=== PATIENT | male | born 1955 | race African-American/Black ===

== ENCOUNTER 2017-03-12 13:46 | Emergency (ER) | payer MEDICARE ==
--- NOTE | 2017-03-12 14:38 | ER Document Report ---
ED General - General Stated Complaint: FEVER Time seen by provider: 14:03 Mode of Arrival: Stretcher Information source: Patient TRAVEL OUTSIDE OF THE [place] IN LAST 30 DAYS: No - HPI Notes: Patient is a pleasant 61-year-old male history of Guamy quiroz nonambulatory since 2013 history of renal transplant 2013 coronary bypass surgery and insulin- dependent diabetes presents March department for a fever onset today with a temperature of 100.1 at home. The patient states he has dysuria and frequency with concern for UTI. He describes no back pain or abdominal pain. He states had a very minimal cough but no dyspnea or chest pain. Cough is nonproductive. Patient also reports she is being followed for stage 2/3 decubiti in the sacral region and on the left posterior heel. Patient states the wound dressing changes were done every 3 days, but now are being performed once a week. - Related Data Allergies/Adverse Reactions: No Known Allergies Allergy (Verified 02/28/15 17:57) Past Medical History - General Information source: Patient - Social History Smoking Status: Never Smoker Frequency of alcohol use: None Drug Abuse: None Lives with: Family Family History: Reviewed & Not Pertinent - Past Medical History Cardiac Medical History: Reports: Hx Congestive Heart Failure, Hx Heart Attack - 2006, Hx Hypercholesterolemia, Hx Hypertension Pulmonary Medical History: Reports: Hx Asthma Endocrine Medical History: Reports: Hx Diabetes Mellitus Type 1 Renal/ Medical History: Reports: Hx End Stage Renal Disease GI Medical History: Denies: Hx Crohn's Disease, Hx Diverticulitis, Hx Ulcerative Colitis Past Surgical History: Reports: Hx Cardiac Surgery - double bypass, Hx Coronary Artery Bypass Graft - Quadruple bypass 2007 - Immunizations Immunizations up to date: Yes Hx Diphtheria, Pertussis, Tetanus Vaccination: Yes Review of Systems - Review of Systems Notes: REVIEW OF SYSTEMS: CONSTITUTIONAL : Reports fever EENT: Denies eye, ear, throat, or mouth pain or symptoms. Denies nasal or sinus congestion or discharge. Denies throat, tongue, or mouth swelling or difficulty swallowing. CARDIOVASCULAR: Denies chest pain. Denies palpitations or racing or irregular heart beat. Denies ankle edema. RESPIRATORY: Denies shortness of breath, difficulty breathing, or wheezing. GASTROINTESTINAL: Denies abdominal pain or distention. Denies nausea, vomiting , or diarrhea. Denies blood in vomitus, stools, or per rectum. Denies black, tarry stools. Denies constipation. GENITOURINARY: Denies difficulty urinating, but he does have urinary frequency urgency and burning. MUSCULOSKELETAL: Denies back or neck pain or stiffness. Denies joint pain or swelling. SKIN: Left greater than right heel and gluteal decubiti. HEMATOLOGIC : Denies easy bruising or bleeding. LYMPHATIC: Denies swollen, enlarged glands. NEUROLOGICAL: Denies confusion or altered mental status. Denies passing out or loss of consciousness. Denies dizziness or lightheadedness. Denies headache. Reports chronic inability to ambulate related to Mady quiroz. Denies new problems with gait or speech. Denies sensory loss, numbness, or tingling. Denies seizures. PSYCHIATRIC: Denies anxiety or stress. Denies depression, suicidal ideation, or homicidal ideation. ALL OTHER SYSTEMS REVIEWED AND NEGATIVE. Dictation was performed using [employer] voice recognition software Physical Exam - Vital signs Vitals: Temp Pulse Resp BP Pulse Ox 99.1 F 80 18 164/69 H 97 03/12/17 13:50 03/12/17 13:50 03/12/17 13:50 03/12/17 13:50 03/12/17 13:50 - Notes Notes: PHYSICAL EXAMINATION: GENERAL: Well-appearing, well-nourished and in no acute distress. HEAD: Atraumatic, normocephalic. EYES: Pupils equal round and reactive to light, extraocular movements intact, sclera anicteric, conjunctiva are normal. ENT: Nares patent, oropharynx clear without exudates. Moist mucous membranes. NECK: Normal range of motion, supple without lymphadenopathy LUNGS: Breath sounds clear to auscultation bilaterally and equal. No wheezes rales or rhonchi. HEART: Regular rate and rhythm without murmurs ABDOMEN: Soft, nontender, nondistended abdomen. No guarding, no rebound. Patient has scars which are well-healed and a mass appreciated through the right lower quadrant from his previous renal transplant. He is nontender to that region. Musculoskeletal: Normal range of motion, no pitting or edema. No cyanosis. NEUROLOGICAL: Cranial nerves grossly intact. Normal speech, normal gait. Normal sensory, motor exams PSYCH: Normal mood, normal affect. SKIN: Patient has stage I decubitus right posterior heel and a stage III decubitus 1 x 2 cm on the left posterior heel with minor odor to it. No gross cellulitis noted otherwise. Patient also has a stage III decubitus 2 x 2 centimeters on the posterior sacral prominence. Course - Re-evaluation Re-evalutation: 03/12/17 14:37 Patient had left heel decubitus cleaned and cultured and dressing changes placed upon this. Blood cultures were taken. Patient had previously received Tylenol just prior to arrival. 03/12/17 21:06 Patient was given 1 L normal saline bolus, then was placed on normal saline at 2 50 mL an hour. After blood and urine cultures, patient was given IV Zosyn to cover for urinary tract infection as well as for the heel decubitus ulceration. Vital signs remained stable. Discussion was undertaken with the patient and family and they were in agreement with admission and/or transfer if needed. Discussion was undertaken with the patient's regular practitioner Dr. Girard, and he advised consultation with the nephrology/renal transplant service. Discussion was undertaken with Dr. Haley at [facility] accept the patient in transfer to the nephrology renal transplant service for further evaluation and care. Lactic acid level was normal, but patient's bicarbonate was 13 and creatinine elevated 2.6. There was some concern for possible renal transplant rejection based upon the elevated creatinine and other findings. - Vital Signs Vital signs: Temp Pulse Resp BP Pulse Ox 98.7 F 74 18 177/74 H 100 03/12/17 20:35 03/12/17 18:38 03/12/17 18:38 03/12/17 18:38 03/12/17 18:38 - Laboratory Result Diagrams: 03/12/17 14:44 03/12/17 14:44 Laboratory results interpreted by me: 03/12/17 03/12/17 03/12/17 14:44 14:44 16:27 WBC 13.8 H RBC 3.67 L Hgb 11.0 L Hct 33.4 L RDW 17.3 H Absolute Neutrophils 9.0 H Potassium 5.4 H Chloride 114 H Carbon Dioxide 13 L BUN 104 H Creatinine 2.61 H Est GFR ( Amer) 30 L Est GFR (Non-Af Amer) 25 L Glucose 169 H Direct Bilirubin 0.5 H AST 62 H ALT 80 H Total Protein 6.2 L Albumin 2.8 L Urine Protein 100 H Ur Leukocyte Esterase LARGE H Urine Ascorbic Acid 20 H - Diagnostic Test Radiology reviewed: Reports reviewed - EKG Interpretation by Me EKG shows normal: Sinus rhythm Additional EKG results interpreted by me: 03/12/17 21:12 EKG as interpreted by me showed normal sinus rhythm a rate of 76. There was no gross evidence for acute FL or ischemia identified. There was left ventricular hypertrophy and a first-degree AV block. No gross change as compared to previous EKG reviewed from 11/05/16. Critical Care Note - Critical Care Note Total time excluding time spent on procedures (mins): 42 Discharge - Discharge Clinical Impression: Hyperkalemia, diminished renal excretion, Renal insufficiency Urinary tract infection Qualifiers: Urinary tract infection type: site unspecified Hematuria presence: without hematuria Qualified Code(s): N39.0 - Urinary tract infection, site not specified Fever Qualifiers: Fever type: due to other condition Qualified Code(s): R50.81 - Fever presenting with conditions classified elsewhere Decubitus skin ulcer Qualifiers: Pressure ulcer location: ankle Pressure ulcer stage: stage 3 Laterality: left Qualified Code(s): L89.523 - Pressure ulcer of left ankle, stage 3 Condition: Stable Disposition: [facility]
[2017-03-12 15:10] LABS: ABSOLUTE LYMPHOCYTES (AUTO) 3.3 10^3/uL (0.5-4.7); ABSOLUTE MONOCYTES (AUTO) 1.4 10^3/uL (0.1-1.4); BASOPHILS % (AUTO) 0.2 % (0-2); EOSINOPHILS % (AUTO) 0.2 % (0-6); HEMATOCRIT 33.4 % (37.9-51.0); HGB HCT DIFFERENCE -0.4; LYMPHOCYTES % (AUTO) 24.2 % (13-45); MEAN CORPUSCULAR HEMOGLOBIN 30.1 pg (27.0-33.4); MEAN CORPUSCULAR VOLUME 91 fl (80-97); MONOCYTES % (AUTO) 10.2 % (3-13); RED BLOOD COUNT 3.67 10^6/uL (4.35-5.55); RED CELL DISTRIBUTION WIDTH 17.3 % (11.5-14.0); SEGMENTED NEUTROPHILS % (AUTO) 65.2 % (42-78); WHITE BLOOD COUNT 13.8 10^3/uL (4.0-10.5)
[2017-03-12 15:24] LABS: ALANINE AMINOTRANSFERASE 80 U/L (21-72); ALBUMIN 2.8 g/dL (3.5-5.0); ALKALINE PHOSPHATASE 125 U/L (38-126); ANION GAP 15 (5-19); ASPARTATE AMINO TRANSFERASE 62 U/L (17-59); BILIRUBIN,DIRECT 0.5 mg/dL (0.0-0.4); BILIRUBIN,TOTAL 0.7 mg/dL (0.2-1.3); BLOOD UREA NITROGEN 104 mg/dL (7-20); CALCIUM 8.6 mg/dL (8.4-10.2); CARBON DIOXIDE 13 mmol/L (22-30); CHLORIDE 114 mmol/L (98-107); CREATININE RESULT 2.61 mg/dL (0.52-1.25); GLUCOSE 169 mg/dL (75-110); POTASSIUM 5.4 mmol/L (3.6-5.0); SODIUM 142.2 mmol/L (137-145); TOTAL PROTEIN 6.2 g/dL (6.3-8.2)
[2017-03-12 17:02] LABS: APPEARANCE,URINE CLOUDY; BILIRUBIN,URINE NEGATIVE (NEGATIVE); GLUCOSE, URINE NEGATIVE (NEGATIVE); KETONES,URINE NEGATIVE (NEGATIVE); LEUKOCYTE ESTERASE,URINE LARGE (NEGATIVE); NITRITE,URINE NEGATIVE (NEGATIVE); PROTEIN,URINE 100 mg/dL (NEGATIVE); URINE SPECIFIC GRAVITY 1.011; UROBILINOGEN,URINE NEGATIVE mg/dL (<2.0)
[2017-03-12] MEDS ORDERED: NORMAL SALINE 1000 ML 1,000 ML IV ONE ×2 (17:20→19:57)
[2017-03-12] MEDS ORDERED: PIPERACILLIN/TAZOBACTAM 3.375 GM VIAL IV ONE (18:22)
[2017-03-13 00:50] VITALS: BP 150/78
[2017-03-13] MEDS ORDERED: ACETAMINOPHEN 325 MG TABLET PO ONE (00:50)
--- NOTE | 2017-03-13 09:40 | EKG REPORT ---
SEVERITY:- ABNORMAL ECG - SINUS RHYTHM FIRST DEGREE AV BLOCK PROBABLE LEFT ATRIAL ABNORMALITY LVH WITH SECONDARY REPOLARIZATION ABNORMALITY INFERIOR INFARCT, OLD CONSIDER ANTERIOR INFARCT : Confirmed by: Zoe Lazo 13-Mar-2017 09:39:16
== END 2017-03-13 02:10 | disposition short-term general hospital (02) ==
LOC: ER 13:46
DX: N28.9 Disorder of kidney and ureter, unspecified (principal); E87.5 Hyperkalemia; N39.0 Urinary tract infection, site not specified; R50.81 Fever presenting with conditions classified elsewhere; L89.523 Pressure ulcer of left ankle, stage 3; R50.9 Fever, unspecified; R05 Cough
CPT/HCPCS: 93005; 99291; 96365; 36415; 87040; 87086; 87070; 87205; 85025; 87075; 87077; 87088; 80053; 81001; 87186; 83605; 71010; 93010; A9270; J7030; J2543

== ENCOUNTER 2017-03-19 07:16 | Inpatient (IN) | payer MEDICARE ==
[2017-03-19] MEDS ORDERED: NITROGLYCERIN/D5W 50 MG/250 ML RTUINJ IV ONE (07:24)
[2017-03-19] MEDS ORDERED: BUMETANIDE INJ/PF 1 MG/4 ML SDV IV PRN (07:39)
[2017-03-19] MEDS ORDERED: NITROGLYCERIN 2% OINTMENT 1 GM PACKET TP ONE (07:40)
[2017-03-19 08:37] LABS: ABSOLUTE EOSINOPHILS # (AUTO) 0.1 10^3/uL (0.0-0.6); ABSOLUTE LYMPHOCYTES (AUTO) 3.1 10^3/uL (0.5-4.7); ABSOLUTE MONOCYTES (AUTO) 1.2 10^3/uL (0.1-1.4); ABSOLUTE NEUT (AUTO) 4.2 10^3/uL (1.7-8.2); BASOPHILS % (AUTO) 0.5 % (0-2); EOSINOPHILS % (AUTO) 0.8 % (0-6); HEMATOCRIT 31.9 % (37.9-51.0); HEMOGLOBIN 10.4 g/dL (13.5-17.0); HGB HCT DIFFERENCE -0.7; MEAN CORPUSCULAR HEMOGLOBIN 29.8 pg (27.0-33.4); MEAN CORPUSCULAR HGB CONC 32.5 g/dL (32.0-36.0); MEAN CORPUSCULAR VOLUME 92 fl (80-97); MONOCYTES % (AUTO) 14.2 % (3-13); RED BLOOD COUNT 3.47 10^6/uL (4.35-5.55); SEGMENTED NEUTROPHILS % (AUTO) 48.5 % (42-78); VENOUS BLOOD BASE EXCESS -4.6 mmol/L; VENOUS BLOOD PCO2 46.1 mmHg (35-63); VENOUS BLOOD PH 7.3 (7.30-7.42); WHITE BLOOD COUNT 8.6 10^3/uL (4.0-10.5)
[2017-03-19 08:46] LABS: PROTHROMBIN TIME 14.2 SEC (11.4-15.4)
[2017-03-19 09:12] LABS: ALANINE AMINOTRANSFERASE 62 U/L (21-72); ALBUMIN 2.7 g/dL (3.5-5.0); ALKALINE PHOSPHATASE 102 U/L (38-126); ANION GAP 16 (5-19); ASPARTATE AMINO TRANSFERASE 46 U/L (17-59); BILIRUBIN,DIRECT 0.4 mg/dL (0.0-0.4); BILIRUBIN,TOTAL 0.4 mg/dL (0.2-1.3); BLOOD UREA NITROGEN 81 mg/dL (7-20); CALCIUM 8.9 mg/dL (8.4-10.2); CARBON DIOXIDE 22 mmol/L (22-30); CHLORIDE 109 mmol/L (98-107); CREATINE KINASE 32 U/L (55-170); CREATININE RESULT 2.96 mg/dL (0.52-1.25); GLUCOSE 87 mg/dL (75-110); MAGNESIUM 1.9 mg/dL (1.6-2.3); POTASSIUM 4.4 mmol/L (3.6-5.0); SODIUM 146.9 mmol/L (137-145)
[2017-03-19 09:22] LABS: CREATINE KINASE MB 4.83 ng/mL (<4.55)
[2017-03-19 09:29] LABS: TROPONIN I 0.091 ng/mL
[2017-03-19] MEDS ORDERED: METOPROLOL TARTRATE 25 MG TABLET PO ONE (10:17)
[2017-03-19] MEDS ORDERED: HYDRALAZINE HCL 25 MG TABLET PO ONE (10:18)
[2017-03-19] MEDS ORDERED: AMINOPHYLLINE INJ/PF 250 MG/10 ML SDV IV ONE (10:38)
[2017-03-19] MEDS ORDERED: REGADENOSON INJ 0.4 MG/5 ML DISP.SYRIN IV ONE (10:38)
[2017-03-19 10:41] LABS: APPEARANCE,URINE SLIGHTLY-CLOUDY; BILIRUBIN,URINE NEGATIVE (NEGATIVE); GLUCOSE, URINE NEGATIVE (NEGATIVE); KETONES,URINE NEGATIVE (NEGATIVE); LEUKOCYTE ESTERASE,URINE LARGE (NEGATIVE); NITRITE,URINE NEGATIVE (NEGATIVE); PROTEIN,URINE 30 mg/dL (NEGATIVE); URINE SPECIFIC GRAVITY 1.009; UROBILINOGEN,URINE NEGATIVE mg/dL (<2.0)
[2017-03-19] MEDS ORDERED: ACETAMINOPHEN 325 MG TABLET PO PRN (11:22)
[2017-03-19] MEDS ORDERED: DEXTROSE 40% GEL 15 GM TUBE PO PRN ×2 (11:25)
[2017-03-19] MEDS ORDERED: DEXTROSE 50%-WATER 25 GM/50 ML DISP.SYRIN IV PRN ×2 (11:25)
[2017-03-19] MEDS ORDERED: GLUCAGON,HUMAN RECOMB 1 MG INJ IM PRN (11:25)
[2017-03-19] MEDS ORDERED: FUROSEMIDE INJ/PF 20 MG/2 ML SDV IV SCH (12:00)
[2017-03-19] MEDS ORDERED: CEFTRIAXONE 1 GM/D5W RTU 1 GM/50 ML RTUPB IV SCH (12:00)
[2017-03-19] MEDS ORDERED: ENOXAPARIN SODIUM INJ 30 MG/0.3 ML DISP.SYRIN SUBCUT ONE (12:15)
[2017-03-19] MEDS: IPRATROPIUM/ALBUTEROL 0.5-2.5 MG/3 ML AMPUL NEB SCH ×2 (13:33→20:37)
--- NOTE | 2017-03-19 13:54 | ER Document Report ---
ED General - General Chief Complaint: Breathing Difficulty Stated Complaint: DIFFICULTY BREATHING TRAVEL OUTSIDE OF THE [place] IN LAST 30 DAYS: No - HPI Patient complains to provider of: difficulty in breathing Notes: Patient coming in for difficulty breathing. Upon EMS arrival patient was found to be hypoxic to Elevated blood pressure. Patient has a history of CHF patient was given Nitropaste transport on C Pap. Upon arrival patient still stated that he was having trouble breathing. Mr. Jolley that showed patient blood pressure was a systolic greater than 2:30. Patient denying chest pain abdominal pain nausea vomiting fevers chills. Patient was recently discharged from [facility] after a UTI was found in patient was bacteremic. Patient is a kidney transplant patient states compliant with medications. Woke up all of a sudden with shortness of breath according to the patient. Nitro drip was ordered patient was also ordered to be placed on BiPAP. - Related Data Allergies/Adverse Reactions: No Known Allergies Allergy (Verified 02/28/15 17:57) Home Medications: Current Home Medications Ascorbic Acid [Vitamin C] 250 mg PO QAM 03/19/17 [History] Atorvastatin Calcium [Lipitor 10 mg Tablet] 10 mg PO QHS 03/19/17 [History] B Complex & C No.20/Folic Acid [Nephrocaps Softgel] 1 cap PO WSUPPER 03/19/17 [ History] Bumetanide [Bumex 0.5 mg Tablet] 0.5 mg PO QAM 03/19/17 [History] Citric Acid/Sodium Citrate [Shohl's Modified Solution] 30 ml PO TID 03/19/17 [ History] Clonazepam [Klonopin] 0.25 mg PO BID 03/19/17 [History] Ergocalciferol (Vitamin D2) [Drisdol 50,000 unit (1.25MG) Capsule] 50,000 units PO WE@1000 03/19/17 [History] Ferrous Sulfate [Feosol 325 mg Tablet] 325 mg PO BIDACBS 03/19/17 [History] Hydralazine HCl [Apresoline 25 mg Tablet] 25 mg PO TID 03/19/17 [History] Insulin Glargine,Hum.rec.anlog [Lantus Insulin 100 Unit/1 ml 10 ml] 3 units SUBCUT QHS 03/19/17 [History] Insulin Lispro [Humalog Insulin (Lispro) 100 unit/mL] 4 units SUBCUT MEALS 03/19 [History] Isosorbide Mononitrate [Isosorbide Mononitrate ER] 30 mg PO QAM 03/19/17 [ History] Metoprolol Tartrate [Lopressor 50 mg Tablet] 50 mg PO Q12 03/19/17 [History] Mupirocin 1 applic TOP BID 03/19/17 [History] Nitroglycerin [Nitrostat] 0.4 mg SL Q5MP PRN 03/19/17 [History] Omeprazole 20 mg PO DAILY 03/19/17 [History] Prednisone [Deltasone 5 mg Tablet] 12.5 mg PO [id number] 03/19/17 [History] Tamsulosin HCl [Flomax] 0.4 mg PO DAILY 03/19/17 [History] Past Medical History - Social History Smoking Status: Never Smoker Chew tobacco use (# tins/day): No Frequency of alcohol use: None Drug Abuse: None Family History: Reviewed & Not Pertinent - Past Medical History Cardiac Medical History: Reports: Hx Congestive Heart Failure, Hx Heart Attack - 2006, Hx Hypercholesterolemia, Hx Hypertension Pulmonary Medical History: Reports: Hx Asthma Endocrine Medical History: Reports: Hx Diabetes Mellitus Type 1 Renal/ Medical History: Reports: Hx End Stage Renal Disease GI Medical History: Denies: Hx Crohn's Disease, Hx Diverticulitis, Hx Ulcerative Colitis Past Surgical History: Reports: Hx Cardiac Surgery - double bypass, Hx Coronary Artery Bypass Graft - Quadruple bypass 2007, Hx Kidney (Renal Surgery) - kidney transplant, rejection - Immunizations Immunizations up to date: Yes Hx Diphtheria, Pertussis, Tetanus Vaccination: Yes Review of Systems - Review of Systems Constitutional: No symptoms reported EENT: No symptoms reported Cardiovascular: No symptoms reported Respiratory: Short of breath Gastrointestinal: No symptoms reported Genitourinary: No symptoms reported Male Genitourinary: No symptoms reported Musculoskeletal: No symptoms reported Skin: No symptoms reported Hematologic/Lymphatic: No symptoms reported Neurological/Psychological: No symptoms reported -: Yes All other systems reviewed and negative Physical Exam - Vital signs Vitals: Resp Pulse Ox 35 H 100 03/19/17 07:34 03/19/17 07:34 Interpretation: Hypertensive, Tachycardic, Tachypneic - General General appearance: Alert, Other - Respiratory stress In distress: Moderate - HEENT Head: Normocephalic, Atraumatic Eyes: Normal Pupils: PERRL - Respiratory Respiratory status: Respiratory distress - Moderate, Tachypnea Chest status: Accessory muscle use Breath sounds: Rales - Coarse throughout Chest palpation: Normal Notes: Right chest double lumen catheter no signs of infection - Cardiovascular Rhythm: Regular Heart sounds: Normal auscultation Murmur: No - Abdominal Inspection: Normal Distension: No distension Bowel sounds: Normal Tenderness: Nontender Organomegaly: No organomegaly - Back Back: Normal, Nontender - Extremities General upper extremity: Normal inspection, Nontender, Normal color, Normal ROM , Normal temperature General lower extremity: Normal inspection, Nontender, Normal color, Normal ROM , Normal temperature, Normal weight bearing, Other - Left heel ulcer covered. No: Mariama's sign - Neurological Neuro grossly intact: Yes Cognition: Normal Orientation: AAOx4 Lincoln Coma Scale Eye Opening: Spontaneous Dominic Coma Scale Verbal: Oriented Lincoln Coma Scale Motor: Obeys Commands Dominic Coma Scale Total: 15 Speech: Normal Motor strength normal: LUE, RUE, LLE, RLE Sensory: Normal - Psychological Associated symptoms: Normal affect, Normal mood - Skin Skin Temperature: Warm Skin Moisture: Dry Skin Color: Normal Course - Re-evaluation Re-evalutation: 03/19/17 13:51 Patient was transitioned to BiPAP. An EKG was performed showing no acute cardiac etiology no signs of STEMI noted T-wave depressions. I personally administered 1 g of nitroglycerin IV to the patient. After administration approximately 2 minutes patient's work of breathing have improved greatly. Blood pressure has improved greatly. Patient stated verbally that he was feeling much better. Lab work shows diffuse pulmonary edema more likely patient had flash pulmonary edema. Patient's BUN/creatinine look to be chronic. Patient was unable to provide us a urine sample while here in the ER. Initially did discuss case with PCP about admission who requested nephrology consult in I did speak with Dr. Hanson who agrees that the patient more likely just needs diuresis and that she will be happy to participate in the patient's care while he is here in the hospital. Dr. Girard agrees to omit the patient to IMCU. Patient otherwise remained stable - Vital Signs Vital signs: Temp Pulse Resp BP Pulse Ox 68 23 H 185/82 H 99 03/19/17 13:33 03/19/17 13:33 03/19/17 12:31 03/19/17 13:33 - Laboratory Result Diagrams: 03/19/17 08:10 03/19/17 08:10 Laboratory results interpreted by me: 03/19/17 03/19/17 03/19/17 08:10 08:10 08:10 RBC 3.47 L Hgb 10.4 L Hct 31.9 L RDW 17.0 H Monocytes % 14.2 H Sodium 146.9 H Chloride 109 H BUN 81 H Creatinine 2.96 H Est GFR ( Amer) 26 L Est GFR (Non-Af Amer) 22 L Creatine Kinase 32 L CK-MB (CK-2) 4.83 H NT-Pro-B Natriuret Pep 032301 H Total Protein 6.0 L Albumin 2.7 L Urine Protein Ur Leukocyte Esterase 03/19/17 10:15 RBC Hgb Hct RDW Monocytes % Sodium Chloride BUN Creatinine Est GFR ( Amer) Est GFR (Non-Af Amer) Creatine Kinase CK-MB (CK-2) NT-Pro-B Natriuret Pep Total Protein Albumin Urine Protein 30 H Ur Leukocyte Esterase LARGE H Critical Care Note - Critical Care Note Total time excluding time spent on procedures (mins): 45 Comments: Time spent at bedside patient with respiratory distress managing BiPAP managing patient's nitro drip Discharge - Discharge Clinical Impression: Chronic kidney disease, stage IV (severe), Accelerated hypertension, History of kidney transplant Acute exacerbation of CHF (congestive heart failure) Qualifiers: Congestive heart failure type: unspecified congestive heart failure type Qualified Code(s): I50.9 - Heart failure, unspecified Condition: Good Disposition: ADMITTED INPATIENT Admitting Provider: [facility] Unit Admitted: [facility]
[2017-03-19] MEDS ORDERED: CITRIC ACID PO SCH (14:00)
[2017-03-19] MEDS ORDERED: SODIUM CITRATE PO SCH (14:00)
[2017-03-19] MEDS: CITRIC ACID/SODIUM CITRATE ORAL SOLN 15 ML UDCUP PO SCH ×2 (14:31→18:46)
[2017-03-19] MEDS: HYDRALAZINE HCL 25 MG TABLET PO SCH ×2 (14:31→19:07)
[2017-03-19] MEDS: INSULIN LISPRO 100 UNIT/ML 3 ML VIAL SUBCUT SCH ×2 (14:51→18:28)
[2017-03-19] MEDS ORDERED: (PENDING PHARMACY ID) (Clonazepam [Klonopin] 0.25 MG) PO SCH (18:00)
[2017-03-19] MEDS: DOCUSATE SODIUM 100 MG CAPSULE PO SCH (18:25)
[2017-03-19] MEDS: FOLIC ACID/VITAMIN B COMP W-C CAPSULE PO SCH (18:25)
[2017-03-19] MEDS: FERROUS SULFATE 325 MG TABLET PO SCH (18:26)
[2017-03-19] MEDS: MUPIROCIN 2% OINTMENT 22 GM TOP SCH (18:46)
[2017-03-19] MEDS ORDERED: METOPROLOL TARTRATE 50 MG TABLET ONE (19:10)
--- NOTE | 2017-03-19 19:37 | HISTORY AND PHYSICAL E ---
History and Physical NAME: KATHRYN HURLEY : 1955 AGE: 61Y ADMITTED: 03/19/2017 ROOM: 334 CHIEF COMPLAINT: Respiratory distress. SUBJECTIVE: This is a 61-year-old male with a significant history of renal transplant on chronic kidney disease, history of coronary artery disease, status post bypass, history of congestive heart failure with diastolic dysfunction, history of hyperlipidemia, stroke, muscle weakness, Guillain-Angela syndrome and multiple other etiologies. Patient was recently admitted to [facility] for a urinary tract infection and bacteremia, and the patient was given IV antibiotics. The patient was started on Bactrim DS on discharge. The patient was just discharged yesterday from [facility]. The patient noticed that he had more difficulty in breathing overnight. The patient came in with blood pressure systolic about 200. The patient was in flash pulmonary edema with respiratory distress. The patient was put on a nitro drip in the ER and the patient is on BiPAP, and the patient is currently responding much better. When I saw the patient in the emergency department the patient was currently on nasal cannula, alert, awake, oriented and denied any chest pain and denied any shortness of the breath. According to the patient, at [facility] they did workup, including the also saw the patient. The patient was put on TPN, the patient was put on IJ PowerLine, and the patient was given IV antibiotics through that too. The patient currently denies any other symptoms except some mild cough. PAST MEDICAL HISTORY: 1. History of recent bacteremia due to the Proteus urinary tract infection and urinary retention. 2. History of the chronic kidney disease, stage V. 3. History of the severe muscle deconditioning. 4. History of the hypertension. 5. History of the C. diff colitis in the past. 6. Type 2 diabetes mellitus. 7. History of the iron-deficiency anemia. 8. History of the Guillain-Angela syndrome. 9. History of myocardial infarction in 2007. 10. History of coronary artery disease, status post coronary artery bypass graft in 2007 with the 4 vessels. 11. History of the sleep apnea, currently no treatment. 12. History of the cytomegalovirus infection. 13. History of the leukocytosis. PAST SURGICAL HISTORY: 1. History of the coronary artery bypass graft in 2007. 2. History of left upper quadrant in 2010. 3. History of the renal transplant in 2017. CURRENT MEDICATIONS: 1. 2% ointment. 2. Bactrim 800 mg twice a day. 3. Patient is taking vitamin D. 4. Hydralazine 25 mg 3 times a day. 5. Sodium citrate daily. 6. Vitamin C daily. 7. Atorvastatin 10 mg daily. 8. B Complex daily. 9. Bumex 0.5 mg. 10. Clonazepam daily. 11. Iron tablet daily. 12. Insulin 3 units at nighttime and 4 units before each meal. 13. Isosorbide 30 mg daily. 14. Metoprolol 50 mg twice daily. 15. Nitroglycerin p.r.n. 16. Omeprazole 20 mg p.o. daily. 17. Prednisone 5 mg daily. 18. Tacrolimus 1 capsule daily. SOCIAL HISTORY: No smoking. No alcohol. No intravenous drug abuse. REVIEW OF SYSTEMS: As above. All other pertinents are negative. PHYSICAL EXAMINATION: VITAL SIGNS: Blood pressure on admission was 186/95, heart rate was 69, respirations were 26, O2 sat was 98% on room air. GENERAL: Alert, awake, oriented, no acute distress. HEAD AND NECK: Normocephalic. PERRLA. LUNGS: No wheezing, no rales. Decreased breath sounds bilaterally. HEART: S1 and S2 is present. ABDOMEN: Soft. Bowel sounds present. EXTREMITIES: No edema. NEUROLOGIC: The patient moves all 4 extremities. Alert, awake, oriented x3. No focal neurological deficits. DIAGNOSTICS: The patient's chest x-ray shows moderate central pulmonary edema with a small left basilar opacity. Differential diagnoses include a pulmonary edema and the pneumonia. The patient's EKG is sinus rhythm. On the patient's other labs, sodium is 146, potassium is 4.4, BUN is 81, creatinine is 2.96. The patient's NT-BNP was 10,000 range. Troponin was 0.091. CK MB is 4.83. Albumin is 2.7. Hematology: WBC is 8.6, hemoglobin is 10.4, platelets are 209. ASSESSMENT: 1. Acute flash pulmonary edema. 2. Hypertensive urgency. 3. Acute diastolic congestive heart failure. 4. Acute renal failure on chronic kidney disease. 5. Recent history of the bacteremia due to the Proteus urinary tract infection. 6. Coronary artery disease, status post bypass graft. 7. History of cerebrovascular accident. 8. Guillain-Angela syndrome. 9. Leukocytosis, currently monitored, reactive versus neoplasm. 10. Diabetes mellitus. 11. Hyperlipidemia. 12. Iron-deficiency anemia. PLAN: At this point, admit the patient in the IMCU. Currently the patient is off the BiPAP and doing very well. We will get the ABG, repeat the chest x-ray, continue the IV antibiotics, and continue to monitor the patient at this point. We will consult Nephrology and Cardiology for further evaluation with the ongoing chronic problems. I discussed with the patient and the family in the ER room very extensively. The patient currently is a FULL CODE. I hope the patient continues to be improved. More than 60 minutes were spent examining the patient and reviewing the records. DICTATING PHYSICIAN: KEEGAN MONTENEGRO M.D. [id number] PHY#: [id number] ID: [id number] JOB#: [id number] ACCT: [id number] cc:KEEGAN MONTENEGRO M.D. >
--- NOTE | 2017-03-19 19:39 | XCELERA REPORT ---
[address] [address] Transthoracic Echocardiogram Report Name: KATHRYN HURLEY Age: 61 yrs Gender: Male : 1955 Patient Status: Inpatient Patient Location: \S\[facility]\S\A Study Date: 03/19/2017 02:25 PM Height: 67 in Weight: 169 lb BSA: 1.9 m2 Procedure: A complete two-dimensional transthoracic echocardiogram was performed (2D, M-mode, spectral and color flow Doppler). The study was technically difficult with many images being suboptimal in quality. Reason For Study: CHF Ordering Physician: ZOE GROVE Performed By: Krystina Walker Interpretation Summary The study was technically difficult with many images being suboptimal in quality. Left ventricular systolic function is low normal. Doppler measurements suggest pseudonormalized left ventricular relaxation, which is associated with grade II/IV or mild to moderate diastolic dysfunction There is mild concentric left ventricular hypertrophy. The left ventricle is grossly normal size. Not all wall segments were well visualized. Wall motion cannot be accurately commented on, but no definite regional wall motion abnormalities noted. The right ventricular systolic function is normal. The left atrium is moderately dilated. The right atrium is mildly dilated. There is no mitral valve stenosis. There is a mild to moderate amount of mitral regurgitation There is no aortic valve stenosis No aortic regurgitation is present. There is a mild amount of tricuspid regurgitation There is moderate pulmonary hypertension by echo Right ventricular systolic pressure is estimated to be elevated at 50- 60mmHg. The aortic root is not well visualized but is probably normal size. The inferior vena cava appeared normal and decreased < 50% with respiration (RAP 10-15 mmHg) There is no pericardial effusion. MMode/2D Measurements \T\ Calculations RVDd: 3.1 cm LVIDd: 4.3 cm FS: 30.1 % Ao root diam: 2.9 cm IVSd: 1.1 cm LVIDs: 3.0 cm EDV(Teich): 81.4 ml LVPWd: 1.2 cm ESV(Teich): 34.4 ml Ao root area: 6.5 cm2 EF(Teich): 57.7 % LA dimension: 4.7 cm Doppler Measurements \T\ Calculations MV E max luis eduardo: MV P1/2t max luis eduardo: Ao V2 max: LV V1 max P.6 cm/sec 142.2 cm/sec 149.9 cm/sec 2.4 mmHg MV A max luis eduardo: MV P1/2t: 69.6 msec Ao max PG: LV V1 max: 152.0 cm/sec 9.0 mmHg 78.0 cm/sec MV E/A: 0.94 MVA(P1/2t): 3.2 cm2 MV dec slope: 598.4 cm/sec2 PA V2 max: TR max luis eduardo: 103.7 cm/sec 329.8 cm/sec PA max P.3 mmHgTR max P.5 mmHg Left Ventricle The left ventricle is grossly normal size. There is mild concentric left ventricular hypertrophy. Left ventricular systolic function is low normal. Doppler measurements suggest pseudonormalized left ventricular relaxation, which is associated with grade II/IV or mild to moderate diastolic dysfunction. Not all wall segments were well visualized. Wall motion cannot be accurately commented on, but no definite regional wall motion abnormalities noted. The left ventricular apex is not well visualized. Right Ventricle The right ventricle is grossly normal size. There is normal right ventricular wall thickness. The right ventricular systolic function is normal. Atria The right atrium is mildly dilated. The left atrium is moderately dilated. Interarterial septum not well visualized and not well dopplered. Cannot comment on ASD/PFO presence. Mitral Valve There is mild mitral leaflet calcification. There is mild to moderate mitral annular calcification. There is no mitral valve stenosis. There is a mild to moderate amount of mitral regurgitation. Aortic Valve The aortic valve is mildly calcified. There is no aortic valve stenosis. No aortic regurgitation is present. Tricuspid Valve The tricuspid valve is not well visualized secondary to technical limitations. There is no tricuspid stenosis. There is a mild amount of tricuspid regurgitation. There is moderate pulmonary hypertension by echo. Right ventricular systolic pressure is estimated to be elevated at 50- 60mmHg. Pulmonic Valve The pulmonic valve is not well visualized. Great Vessels The aortic root is not well visualized but is probably normal size. The inferior vena cava appeared normal and decreased < 50% with respiration (RAP 10-15 mmHg). Effusions There is no pericardial effusion. : ZOE GROVE > Zoe Grove
--- NOTE | 2017-03-19 20:11 | PDOC CONSULTATION ---
Consultation Consult Date: 03/19/17 Attending physician:: KEEGAN MONTENEGRO Consult reason:: I was asked by Dr. Montenegro to see the patient for his chronic kidney disease in a patient with previous kidney transplant. 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 Patient was just recently at [facility] from March 13 until March 17 due to UTI with bacteremia secondary to Proteus in the urine and Enterobacter in the blood. Patient was discharged with home health arrangement for IV ceftriaxone daily for 14 days followed by 1 week of Bactrim after that. While the patient was there the patient said he was given a lot of IV fluids and his Bumex was only resumed on day 3 of hospitalization. He said he developed a cough while he was still in the hospital at [facility] about 2 days ago. When he came home the cough continued. Last night his cough gotten worse as well as the shortness of breath. He said he wears CPap during sleep but even then continues to be short of breath. He otherwise denies any chest pain, fever, nausea, vomiting, nor diarrhea. He mentions that his urine output seems diminished. He was diagnosed with possible urinary retention at [facility] and he was taught to do self-catheterization twice a day. He has not really started yet. This morning when he presented he also had elevated blood pressure with systolic blood pressure around 230s. Blood pressure is still elevated at the moment. He was started on Nitrol drip and his blood pressure medications is currently being given. He is also being started on low dose Lasix intravenously. His chest x-ray showed pulmonary edema. He had an echocardiogram today which showed an ejection fraction of 50%, final report still pending. Today's kidney function includes a BUN of 81 creatinine of 2.96 with estimated GFR of 26. Last week in March 12 he had a BUN of 104 and creatinine of 2.01. On February 23, he had a BUN of 110 and creatinine of 1.78. Further review of records indicated that this usual creatinine is around 2 until February of this year. While at [facility] last week he had a kidney ultrasound which showed minimally increasing mild hydronephrosis. He also had a KUB which was negative for recurrent bladder stone. There was a report of a PVR by ultrasound of 17 but on the floor likely due to a bladder scan of all PVR of 70-100 mL. Patient was then taught self-catheterization as stated above. Records from [facility] also indicated that he had a last kidney biopsy in February 2016 which showed 6070% fibrosis. He had a previous CMV, BK and EBV testing which were all negative. Past Medical History Cardiac Medical History: Reports: CHF-Diastolic, Coronary Artery Disease, Hyperlipidemia, Hypertension-primary, Myocardial Infarction - 2006 Pulmonary Medical History: Reports: Asthma, Sleep Apnea - On C Pap Neurological Medical History: Reports: Ischemic CVA, Other - History of Guillain -Ventura syndrome in 2013 with paraplegia Endocrine Medical History: Reports: Diabetes Mellitus Type 2 Complications of Diabetes: Reports: Nephropathy Renal/ Medical History: Reports: Chronic Kidney Disease Stage IV, End Stage Renal Disease - Secondary to diabetes and hypertension. Patient did peritoneal dialysis, Proteinuria, Renal Transplant - donor kidney transplant on August 2013, Other - Episode of acute kidney injury in the past requiring hemodialysis last year. History of acute rejection in the past Infectious Medical History: Reports: Clostridium Difficile, Other - History of CMV viremia, history of Foster myelitis Hematology Medical History: Reports Anemia of Chronic Kidney Disease, Reports Iron Deficiency Anemia Past Surgical History Past Surgical History: Reports: Coronary Artery Bypass Graft - Quadruple bypass 2007, Renal Transplant - August 2013, Other - History peritoneal dialysis catheter placement and removal Social History Information Source: Patient Lives with: Spouse/Significant other Smoking Status: Never Smoker Frequency of Alcohol Use: None Hx Recreational Drug Use: No Drugs: None Hx Prescription Drug Abuse: No - Advance Directive Resuscitation Status: Full Code Family History Family History: Reviewed & Not Pertinent Parental Family History Reviewed: Yes Children Family History Reviewed: Yes Sibling(s) Family History Reviewed.: Yes Medication/Allergy Home Medications: Ascorbic Acid [Vitamin C] 250 mg PO QAM 03/19/17 Atorvastatin Calcium [Lipitor 10 mg Tablet] 10 mg PO QHS 03/19/17 B Complex & C No.20/Folic Acid [Nephrocaps Softgel] 1 cap PO WSUPPER 03/19/17 Bumetanide [Bumex 0.5 mg Tablet] 0.5 mg PO QAM 03/19/17 Citric Acid/Sodium Citrate [Shohl's Modified Solution] 30 ml PO TID 03/19/17 Clonazepam [Klonopin] 0.25 mg PO BID 03/19/17 Ergocalciferol (Vitamin D2) [Drisdol 50,000 unit (1.25MG) Capsule] 50,000 units PO WE@1000 03/19/17 Ferrous Sulfate [Feosol 325 mg Tablet] 325 mg PO BIDACBS 03/19/17 Hydralazine HCl [Apresoline 25 mg Tablet] 25 mg PO TID 03/19/17 Insulin Glargine,Hum.rec.anlog [Lantus Insulin 100 Unit/1 ml 10 ml] 3 units SUBCUT QHS 03/19/17 Insulin Lispro [Humalog Insulin (Lispro) 100 unit/mL] 4 units SUBCUT MEALS 03/19 Isosorbide Mononitrate [Isosorbide Mononitrate ER] 30 mg PO QAM 03/19/17 Metoprolol Tartrate [Lopressor 50 mg Tablet] 50 mg PO Q12 03/19/17 Mupirocin 1 applic TOP BID 03/19/17 Nitroglycerin [Nitrostat] 0.4 mg SL Q5MP PRN 03/19/17 Omeprazole 20 mg PO DAILY 03/19/17 Prednisone [Deltasone 5 mg Tablet] 12.5 mg PO [id number] 03/19/17 Tamsulosin HCl [Flomax] 0.4 mg PO DAILY 03/19/17 Allergies/Adverse Reactions: No Known Allergies Allergy (Verified 02/28/15 17:57) Review of Systems All systems: reviewed and no additional remarkable complaints except as stated Review of Systems: Constitutional: ABSENT: chills, fatigue, fever(s), headache(s), weight gain, weight loss Eyes: ABSENT: visual disturbances Ears: ABSENT: hearing changes Cardiovascular: ABSENT: chest pain, orthropnea, palpitations; admits shortness of breath and edema Respiratory: ABSENT: hemoptysis, admits cough and shortness of breath Gastrointestinal: ABSENT: abdominal pain, constipation, diarrhea, hematemesis, hematochezia, nausea, vomiting Genitourinary: ABSENT: dysuria, hematuria Musculoskeletal: ABSENT: joint swelling Integumentary: ABSENT: rash, wounds Neurological: ABSENT: abnormal gait, abnormal speech, confusion, dizziness, focal weakness, numbness, syncope Psychiatric: ABSENT: anxiety, depression Endocrine: ABSENT: cold intolerance, heat intolerance, polydipsia, polyuria Hematologic/Lymphatic: ABSENT: easy bleeding, easy bruising, lymphadenopathy Physical Exam Vital Signs: Temp Pulse Resp BP Pulse Ox 98.0 F 78 28 H 193/97 H 98 03/19/17 16:10 03/19/17 16:10 03/19/17 16:10 03/19/17 18:38 03/19/17 16:10 Intake & Output 03/18/17 03/19/17 03/20/17 06:59 06:59 06:59 Weight 77.11 kg Exam: General appearance: no acute distress, cooperative, well-developed, well- nourished Head exam: PRESENT: atraumatic, normocephalic Eye exam: PRESENT: Conjunctiva pale, EOMI, PERRLA. ABSENT: conjunctival injection, scleral icterus Mouth exam: PRESENT: moist, neck supple, tongue midline Neck exam: PRESENT: full ROM. Right IJ powerline on the right side of the chest ABSENT: carotid bruit, JVD, lymphadenopathy, thyromegaly Respiratory exam: PRESENT: Coarse breath sounds to auscultation bilaterally. Positive crackles ABSENT: rhonchi, stridor, wheezes Cardiovascular exam: PRESENT: RRR, +S1, +S2. Grade 2/6 systolic murmur Pulses: PRESENT: normal radial pulses, normal dorsalis pedis pulses GI/Abdominal exam: PRESENT: normal bowel sounds, soft. Palpable kidney transplant graft on the right lower quadrant without any tenderness. No bruit over the kidney graft. ABSENT: guarding, mass, tenderness Rectal exam: deferred Extremities exam: PRESENT: full ROM. There is grade 2 bilateral lower extremity PVD edema and on dependent portion of his abdomen and buttocks ABSENT : calf tenderness Musculoskeletal: PRESENT: full ROM. ABSENT: deformity Neurological exam: PRESENT: alert, Awake, Oriented to person, Oriented to place , Oriented to time, reflexes normal, CN II-XII grossly intact. ABSENT: motor sensory deficit Psychiatric exam: PRESENT: appropriate affect, normal mood. ABSENT: homicidal ideation, suicidal ideation Skin exam: PRESENT: intact, dry, warm. ABSENT: rash Results Laboratory Results: 03/19/17 12:10 Lactic Acid 0.6 L 03/19/17 03/19/17 03/19/17 12:10 12:10 12:10 Creatine Kinase 38 L CK-MB (CK-2) 6.26 H Troponin I 0.103 Impressions: Chest X-Ray 03/19/17 07:32 IMPRESSION: Moderate central pulmonary edema pattern and small left lateral basilar opacity. Differential diagnosis includes pulmonary edema and pneumonia. Assessment & Plan - Diagnosis (1) Acute exacerbation of CHF (congestive heart failure) Qualifiers: Congestive heart failure type: diastolic Qualified Code(s): I50.33 - Acute on chronic diastolic (congestive) heart failure Is this a current diagnosis for this admission?: YesPlan: Agree with low dose Lasix intravenously as ordered for gentle diuresis. Monitor intake and output if possible. (2) Chronic kidney disease, stage IV (severe) Is this a current diagnosis for this admission?: YesPlan: Patient's kidney function is actually better than last week. 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 Review of records shows slow deterioration of his kidney function. This is supported by a previous kidney transplant in February 2016 showing 60-70 % fibrosis. Currently the patient does not need any urgent renal replacement therapy. Monitor kidney function and urine output. Due to recent diagnosis of urinary retention we have to monitor his urine output via bladder scan and possible intermittent catheterization every shift. (3) History of kidney transplant Is this a current diagnosis for this admission?: YesPlan: donor kidney transplant in August 2013. Continue antirejection medications with the prednisone and tacrolimus. Follow tacrolimus trough level. (4) Hypertensive urgency Is this a current diagnosis for this admission?: YesPlan: on nitroglycerin drip, with blood pressure medications per Dr. Montenegro. (5) Cough Is this a current diagnosis for this admission?: YesPlan: This could be due to acute pulmonary edema. However cannot rule out any pulmonary infection. Recommend to obtain a sputum Gram stain and culture if possible. (6) Anemia in chronic kidney disease (CKD) Is this a current diagnosis for this admission?: Yes (7) Diabetes mellitus, type II Is this a current diagnosis for this admission?: Yes (8) Coronary artery disease Qualifiers: Coronary Disease-Associated Artery/Lesion type: augustine artery [place] vs. transplanted heart: augustine heart Associated angina: without angina Qualified Code(s): I25.10 - Atherosclerotic heart disease of augustine coronary artery without angina pectoris Is this a current diagnosis for this admission?: Yes (9) UTI (urinary tract infection) Qualifiers: Urinary tract infection type: site unspecified Hematuria presence: without hematuria Qualified Code(s): N39.0 - Urinary tract infection, site not specified Is this a current diagnosis for this admission?: YesPlan: Continue ceftriaxone IV. - Notes Notes: Thank you very much for this consultation. - Time Time Spent: Greater than 70 Minutes
[2017-03-19 21:07] LABS: CREATINE KINASE MB 7.97 ng/mL (<4.55); TROPONIN I 0.091 ng/mL
--- NOTE | 2017-03-19 21:09 | PDOC CONSULTATION ---
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 Patient was just recently at [facility] from March 13 until March 17 due to UTI with bacteremia secondary to Proteus in the urine and Enterobacter in the blood. Patient was discharged with home health arrangement for IV ceftriaxone daily for 14 days followed by 1 week of Bactrim after that. While the patient was there the patient said he was given a lot of IV fluids and his Bumex was only resumed on day 3 of hospitalization. He said he developed a cough while he was still in the hospital at [facility] about 2 days ago. When he came home the cough continued. Last night his cough gotten worse as well as the shortness of breath. He said he wears CPap during sleep but even then continues to be short of breath. He otherwise denies any chest pain, fever, nausea, vomiting, nor diarrhea. He mentions that his urine output seems diminished. He was diagnosed with possible urinary retention at [facility] and he was taught to do self-catheterization twice a day. He has not really started yet. This morning when he presented he also had elevated blood pressure with systolic blood pressure around 230s. Blood pressure is still elevated at the moment. He was started on Nitrol drip and his blood pressure medications is currently being given. He is also being started on low dose Lasix intravenously. His chest x-ray showed pulmonary edema. My review suggest that patient may have right lower lobe pneumonia. This history was reviewed and confirmed and supplemented. On questioning patient denied any chest discomfort. He has noted shortness of breath and cough. Patient denied any sustained palpitations, syncope, near syncope. Patient claims noncompliance with CPAP therapy. Past Medical History Cardiac Medical History: Reports: Congestive Heart Failure, Coronary Artery Disease, Myocardial Infarction - 2006, Hyperlipidema, Hypertension Pulmonary Medical History: Reports: Asthma, Sleep Apnea - On C Pap Neurological Medical History: Reports: Ischemic CVA, Other - History of Guillain -Ventura syndrome in 2013 with paraplegia Endocrine Medical History: Reports: Diabetes Mellitus Type 1, Diabetes Mellitus Type 2 Renal/ Medical History: Reports: End Stage Renal Disease - Secondary to diabetes and hypertension. Patient did peritoneal dialysis, Other - Episode of acute kidney injury in the past requiring hemodialysis last year. History of acute rejection in the past GI Medical History: Denies: Crohn's Disease, Diverticulitis, Ulcerative Colitis Psychiatric Medical History: Denies: Depression Infectious Medical History: Reports: Clostridium Difficile, Other - History of CMV viremia, history of Foster myelitis Past Surgical History Past Surgical History: Reports: Coronary Artery Bypass Graft - Quadruple bypass 2007, Renal Transplant - August 2013, Other - History peritoneal dialysis catheter placement and removal Social History Information Source: Patient Lives with: Spouse/Significant other Smoking Status: Never Smoker Frequency of Alcohol Use: None Hx Recreational Drug Use: No Drugs: None Hx Prescription Drug Abuse: No - Advance Directive Resuscitation Status: Full Code Surrogate healthcare decision maker:: Patient's Family History Family History: Reviewed & Not Pertinent, CAD Parental Family History Reviewed: Yes Children Family History Reviewed: Yes Sibling(s) Family History Reviewed.: Yes Medication/Allergy Home Medications: Ascorbic Acid [Vitamin C] 250 mg PO QAM 03/19/17 Atorvastatin Calcium [Lipitor 10 mg Tablet] 10 mg PO QHS 03/19/17 B Complex & C No.20/Folic Acid [Nephrocaps Softgel] 1 cap PO WSUPPER 03/19/17 Bumetanide [Bumex 0.5 mg Tablet] 0.5 mg PO QAM 03/19/17 Citric Acid/Sodium Citrate [Shohl's Modified Solution] 30 ml PO TID 03/19/17 Clonazepam [Klonopin] 0.25 mg PO BID 03/19/17 Ergocalciferol (Vitamin D2) [Drisdol 50,000 unit (1.25MG) Capsule] 50,000 units PO WE@1000 03/19/17 Ferrous Sulfate [Feosol 325 mg Tablet] 325 mg PO BIDACBS 03/19/17 Hydralazine HCl [Apresoline 25 mg Tablet] 25 mg PO TID 03/19/17 Insulin Glargine,Hum.rec.anlog [Lantus Insulin 100 Unit/1 ml 10 ml] 3 units SUBCUT QHS 03/19/17 Insulin Lispro [Humalog Insulin (Lispro) 100 unit/mL] 4 units SUBCUT MEALS 03/19 Isosorbide Mononitrate [Isosorbide Mononitrate ER] 30 mg PO QAM 03/19/17 Metoprolol Tartrate [Lopressor 50 mg Tablet] 50 mg PO Q12 03/19/17 Mupirocin 1 applic TOP BID 03/19/17 Nitroglycerin [Nitrostat] 0.4 mg SL Q5MP PRN 03/19/17 Omeprazole 20 mg PO DAILY 03/19/17 Prednisone [Deltasone 5 mg Tablet] 12.5 mg PO [id number] 03/19/17 Tamsulosin HCl [Flomax] 0.4 mg PO DAILY 03/19/17 Allergies/Adverse Reactions: No Known Allergies Allergy (Verified 02/28/15 17:57) Review of Systems Review of Systems: Please see history of present illness and past medical history as wall. Constitutional: No fever or chills reported. Head : No recent chronic headaches, recent head injury. Eyes: No recent eye pain, diplopia, redness, discharge, acute visual changes. Ears: No recent chronic ear pain, acute hearing loss, ear discharge. Oral cavity: No recent ulcerations, bleeding, oral cavity discomfort. Neck: No recent acute neck pain reported. Hematologic: No recent easy bruising or bleeding or hematologic malignancy reported. Lymphatic: No recent lymphatic malignancy, chronic lymphadenopathy reported yet Cardiovascular system review: See history of present illness. Respiratory system review: Recent coughing spells but no hemoptysis, blood clots in the lungs reported. Mild Shortness of breath on exertion Gastrointestinal system review: Negative for any recent acute or chronic abdominal pain, hematemesis, melena, recent change in bowel habits. Genitourinary system review: No recent acute or chronic hematuria, flank pain, UTI etc. reported. Skin system review: Negative for any recent abnormal bruising, no rash, no pruritus reported. Neurologic: No prior history of strokes, mini strokes, seizure disorder. Patient has history Guilllan Ventura syndrome syndrome and paraplegia. Psychologic: No history of major psychosis or major depression reported. Musculoskeletal: Minor aches and pains reported. No acute joint swelling reported. Bilateral lower extremity weakness. Endocrine: No recent polyuria, polydipsia, recent heat or cold intolerance. Physical Exam Vital Signs: Temp Pulse Resp BP Pulse Ox 98.5 F 84 24 H 201/94 H 100 03/19/17 19:47 03/19/17 19:47 03/19/17 19:47 03/19/17 19:47 03/19/17 19:47 Intake & Output 03/18/17 03/19/17 03/20/17 06:59 06:59 06:59 Intake Total 120 Balance 120 Weight 77.11 kg Exam: GENERAL: well-nourished and in no acute distress. Alert and oriented x3 HEAD: Atraumatic, normocephalic. EYES: Pupils equal round and reactive to light, extraocular movements intact, sclera anicteric, conjunctiva are normal. ENT: TMs normal, nares patent, oropharynx clear without exudates. Moist mucous membranes. No oral ulcerations or bleeding gums noted NECK: supple without lymphadenopathy. Trachea is central. No cervical or axillary lymphadenopathy noted. Carotids are 2+, JVD 8-10 CM LUNGS: Respiration seems nonlabored, no significant accessory muscle action noted. Bibasal a fine crackles are noted. CHEST: Palpation of the chest wall shows no significant chest wall tenderness. No other significant abnormalities noted. HEART: [place] RESOURCE ANALYST, No PSH, 1/6 MELBA aortic area, 1/6 [place] systolic murmur mitral area, no rubs, positive S4 noted. ABDOMEN: Soft, no significant tenderness appreciated, normoactive bowel sounds. No guarding, no rebound. No rigidity noted . No masses appreciated. EXTREMITIES: Pedal pulses are 1-2+, no calf tenderness noted. No clubbing or cyanosis.1+ pedal edema noted NEUROLOGICAL: Focused neurological exam showed no significant neurologic deficit. Normal speech, no focal weakness appreciated. PSYCH: Normal mood, normal affect. Judgment and insight within normal limits. SKIN: No significant ecchymosis, rash, ulcerations or signs of pruritus noted. MUSCULOSKELETAL EXAM: No significant joint swelling noted. Results Laboratory Results: 03/19/17 12:10 Lactic Acid 0.6 L 03/19/17 03/19/17 03/19/17 12:10 12:10 12:10 Creatine Kinase 38 L CK-MB (CK-2) 6.26 H Troponin I 0.103 EKG Comments: Sinus rhythm, LVH, old inferior infarct, no acute ST-T wave changes noted, left atrial enlargement noted. Impressions: Chest X-Ray 03/19/17 07:32 IMPRESSION: Moderate central pulmonary edema pattern and small left lateral basilar opacity. Differential diagnosis includes pulmonary edema and pneumonia. Assessment & Plan - Diagnosis (1) Elevated troponin I level Is this a current diagnosis for this admission?: Yes (2) Accelerated hypertension Is this a current diagnosis for this admission?: Yes (3) Acute exacerbation of CHF (congestive heart failure) Qualifiers: Congestive heart failure type: combined Qualified Code(s): I50.43 - Acute on chronic combined systolic (congestive) and diastolic (congestive) heart failure Is this a current diagnosis for this admission?: Yes (4) Chronic kidney disease, stage IV (severe) Is this a current diagnosis for this admission?: Yes (5) Diabetes mellitus, type II Qualifiers: Diabetes mellitus complication status: with unspecified complications Diabetes mellitus ad terminal makeup operator insulin use: without ad terminal makeup operator use Qualified Code(s): E11.8 - Type 2 diabetes mellitus with unspecified complications; 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 transplanted heart: [place] heart Is this a current diagnosis for this admission?: Yes - Notes Notes: Elevated troponin I level: Possibly related to severe hypertension, pulmonary edema in setting of significant renal dysfunction. Accelerated hypertension: Blood pressure goal should be 135/85 or less in view of significant renal dysfunction. Acrylic Fabricator on case, will leave blood pressure management to her. Acute excessive elevation of CHF: Based to be from diastolic dysfunction based on echocardiogram report, precipitated by hypertension and volume overload. Continue IV Lasix therapy. Chronic kidney disease in transplanted kidney: We'll leave management to information specialist. Diabetes: Recommend good control of blood sugar. However should avoid any hypoglycemia. Patient being expertly managed by primary care Gina Sleep apnea syndrome: Patient advised to improve compliance. Coronary artery disease: Patient has history of CABG. Currently stable without any chest pain. Troponin I elevation related to CHF, severe hypertension, possible pneumonia in setting of chronic kidney disease. - Time Time Spent: 30 to 50 Minutes - CODE STATUS was discussed, patient remains full code. Surrogate decision-maker unchanged. Multiple medical problems were addressed.More than 50% of the time spent coordinating care, discussing management plans with involved caregivers. Management plans discussed with involved personnels. Medical decision making was of moderate to high complexity , patient's has multiple severe comorbidities. Medications reviewed and adjusted accordingly: Yes
[2017-03-19] MEDS: METOPROLOL TARTRATE 50 MG TABLET PO SCH (21:59)
[2017-03-19] MEDS ORDERED: INSULIN GLARGINE,HUM.REC.ANLOG 1,000 UNIT/10 ML UNIT SUBCUT SCH (22:00)
[2017-03-19] MEDS: CLONAZEPAM 1 MG TABLET PO SCH (22:11)
[2017-03-19] MEDS: INSULIN GLARGINE,HUM.REC.ANLOG 1,000 UNIT/10 ML UNIT SUBCUT SCH (22:11)
[2017-03-19] MEDS: ATORVASTATIN CALCIUM 10 MG TABLET PO SCH (22:11)
[2017-03-19] MEDS: FUROSEMIDE INJ/PF 20 MG/2 ML SDV IV SCH (22:12)
[2017-03-20 01:52] LABS: CREATINE KINASE MB 6.57 ng/mL (<4.55); TROPONIN I 0.106 ng/mL
[2017-03-20] MEDS: NITROGLYCERIN/D5W 250 ML IV PRN ×2 (03:07→17:20)
[2017-03-20] MEDS: HYDRALAZINE HCL INJ/PF 20 MG/1 ML SDV IV PRN (03:15)
[2017-03-20 06:14] LABS: ARTERIAL BLOOD BASE EXCESS -0.4 mmol/L; ARTERIAL BLOOD O2 SATURATION 75.6 % (94-98)
[2017-03-20] MEDS: TACROLIMUS ANHYDROUS 1 MG CAPSULE PO SCH ×2 (06:45→17:18)
[2017-03-20] MEDS: FUROSEMIDE INJ/PF 20 MG/2 ML SDV IV SCH ×3 (06:45→23:18)
[2017-03-20] MEDS: HYDRALAZINE HCL 25 MG TABLET PO SCH (06:45)
[2017-03-20 07:06] LABS: ABSOLUTE BASOPHILS # (AUTO) 0.1 10^3/uL (0.0-0.2); ABSOLUTE EOSINOPHILS # (AUTO) 0.2 10^3/uL (0.0-0.6); ABSOLUTE LYMPHOCYTES (AUTO) 5.5 10^3/uL (0.5-4.7); ABSOLUTE MONOCYTES (AUTO) 1.6 10^3/uL (0.1-1.4); ABSOLUTE NEUT (AUTO) 7.1 10^3/uL (1.7-8.2); BASOPHILS % (AUTO) 0.7 % (0-2); EOSINOPHILS % (AUTO) 1.1 % (0-6); HEMATOCRIT 33.8 % (37.9-51.0); HEMOGLOBIN 10.7 g/dL (13.5-17.0); HGB HCT DIFFERENCE -1.7; LYMPHOCYTES % (AUTO) 37.8 % (13-45); MEAN CORPUSCULAR HGB CONC 31.5 g/dL (32.0-36.0); MEAN CORPUSCULAR VOLUME 92 fl (80-97); MONOCYTES % (AUTO) 11.1 % (3-13); RED BLOOD COUNT 3.68 10^6/uL (4.35-5.55); SEGMENTED NEUTROPHILS % (AUTO) 49.3 % (42-78); WHITE BLOOD COUNT 14.5 10^3/uL (4.0-10.5)
[2017-03-20 07:21] LABS: ALANINE AMINOTRANSFERASE 57 U/L (21-72); ALKALINE PHOSPHATASE 116 U/L (38-126); ANION GAP 16 (5-19); ASPARTATE AMINO TRANSFERASE 47 U/L (17-59); BILIRUBIN,DIRECT 0.5 mg/dL (0.0-0.4); BILIRUBIN,TOTAL 0.5 mg/dL (0.2-1.3); BLOOD UREA NITROGEN 75 mg/dL (7-20); CALCIUM 8.9 mg/dL (8.4-10.2); CARBON DIOXIDE 23 mmol/L (22-30); CHLORIDE 106 mmol/L (98-107); CREATININE RESULT 2.81 mg/dL (0.52-1.25); GLUCOSE 84 mg/dL (75-110); MAGNESIUM 1.7 mg/dL (1.6-2.3); POTASSIUM 4.6 mmol/L (3.6-5.0); SODIUM 144.7 mmol/L (137-145); TOTAL PROTEIN 6.3 g/dL (6.3-8.2)
[2017-03-20] MEDS ORDERED: (PENDING PHARMACY ID) (Ascorbic Acid [Vitamin C] 250 MG) PO SCH (08:00)
[2017-03-20] MEDS ORDERED: PREDNISONE 5 MG TABLET PO SCH (08:00)
[2017-03-20] MEDS: IPRATROPIUM/ALBUTEROL 0.5-2.5 MG/3 ML AMPUL NEB SCH ×3 (08:01→20:50)
[2017-03-20] MEDS ORDERED: HYDRALAZINE HCL 25 MG TABLET PO SCH (08:14)
--- NOTE | 2017-03-20 08:14 | EKG REPORT ---
SEVERITY:- ABNORMAL ECG - SINUS RHYTHM VENTRICULAR PREMATURE COMPLEX PROBABLE LEFT ATRIAL ABNORMALITY LEFT VENTRICULAR HYPERTROPHY INFERIOR INFARCT, AGE INDETERMINATE ANTEROLATERAL INFARCT, OLD : Confirmed by: Kevon Madison MD 20-Mar-2017 08:12:31
[2017-03-20] MEDS: PREDNISONE 5 MG TABLET PO SCH (08:18)
[2017-03-20] MEDS: ASCORBIC ACID 500 MG TABLET PO SCH (08:21)
[2017-03-20] MEDS: LANSOPRAZOLE 15 MG TAB.RAP.DR PO SCH (08:21)
[2017-03-20] MEDS: METOPROLOL TARTRATE 50 MG TABLET PO SCH ×2 (08:21→23:15)
[2017-03-20] MEDS: FERROUS SULFATE 325 MG TABLET PO SCH ×2 (08:22→17:18)
[2017-03-20] MEDS: CLONAZEPAM 1 MG TABLET PO SCH ×2 (08:22→23:18)
[2017-03-20] MEDS: ISOSORBIDE MONONITRATE 30 MG TAB.ER.24H PO SCH (08:22)
[2017-03-20] MEDS: TAMSULOSIN HCL 0.4 MG CAP.SR.24H PO SCH (08:22)
[2017-03-20] MEDS: MUPIROCIN 2% OINTMENT 22 GM TOP SCH ×2 (08:24→17:19)
[2017-03-20] MEDS: CITRIC ACID/SODIUM CITRATE ORAL SOLN 15 ML UDCUP PO SCH ×3 (08:25→17:19)
[2017-03-20] MEDS: ENOXAPARIN SODIUM INJ 30 MG/0.3 ML DISP.SYRIN SUBCUT SCH (08:25)
[2017-03-20] MEDS: DOCUSATE SODIUM 100 MG CAPSULE PO SCH ×2 (08:36→17:20)
[2017-03-20] MEDS: INSULIN LISPRO 100 UNIT/ML 3 ML VIAL SUBCUT SCH ×3 (08:36→17:20)
--- NOTE | 2017-03-20 11:33 | PDOC PROGRESS REPORT ---
Subjective Progress Note for:: 03/20/17 Subjective:: Patient is currently doing fair patient have overnight 101 fever but patients denied any chest pain denied any shortness of the breath. Patient still on a nitro drip and the systolic blood pressure is coming down to 160-170 range.Patient seen by the nephrology and seen by cardiology.Discussed with the patient's and she told that and patient was discharged from the widened patient's blood pressure was 180 rangePatient still have a some mild cough on a cold but denied any respiratory distress Physical Exam Vital Signs: Temp Pulse Resp BP Pulse Ox 101.0 F H 78 18 180/80 H 98 03/20/17 07:08 03/20/17 08:04 03/20/17 08:04 03/20/17 07:08 03/20/17 08:04 Intake & Output 03/19/17 03/20/17 03/21/17 06:59 06:59 06:59 Intake Total 298 Output Total 1525 Balance -1227 Weight 72.8 kg General appearance: PRESENT: no acute distress, well-developed, well-nourished Head exam: PRESENT: atraumatic, normocephalic Eye exam: PRESENT: conjunctiva pink, EOMI, PERRLA. ABSENT: scleral icterus Ear exam: PRESENT: normal external ear exam Mouth exam: PRESENT: moist, tongue midline Neck exam: PRESENT: full ROM. ABSENT: carotid bruit, JVD, lymphadenopathy, thyromegaly Respiratory exam: PRESENT: clear to auscultation jolie Cardiovascular exam: PRESENT: RRR. ABSENT: diastolic murmur, rubs, systolic murmur Pulses: PRESENT: normal dorsalis pedis pul, +2 pedal pulses bilateral Vascular exam: PRESENT: normal capillary refill GI/Abdominal exam: PRESENT: normal bowel sounds, soft. ABSENT: distended, guarding, mass, organolmegaly, rebound, tenderness Rectal exam: PRESENT: deferred Neurological exam: PRESENT: alert, awake, oriented to person, oriented to place , oriented to time, oriented to situation, CN II-XII grossly intact. ABSENT: motor sensory deficit Psychiatric exam: PRESENT: appropriate affect, normal mood. ABSENT: homicidal ideation, suicidal ideation Skin exam: PRESENT: dry, intact, warm. ABSENT: cyanosis, rash Results Laboratory Results: 03/20/17 06:45 03/20/17 06:45 03/19/17 03/20/17 03/20/17 12:10 06:00 06:45 WBC 14.5 H RBC 3.68 L Hgb 10.7 L Hct 33.8 L MCV 92 MCH 29.0 MCHC 31.5 L RDW 17.0 H Plt Count 243 Seg Neutrophils % 49.3 Lymphocytes % 37.8 Monocytes % 11.1 Eosinophils % 1.1 Basophils % 0.7 Absolute Neutrophils 7.1 Absolute Lymphocytes 5.5 H Absolute Monocytes 1.6 H Absolute Eosinophils 0.2 Absolute Basophils 0.1 Carbonic Acid 1.17 HCO3/H2CO3 Ratio 20:1 ABG pH 7.41 ABG pCO2 38.9 ABG pO2 39.9 L* ABG HCO3 24.1 ABG O2 Saturation 75.6 L ABG Base Excess -0.4 FiO2 30% Sodium Potassium Chloride Carbon Dioxide Anion Gap BUN Creatinine Est GFR ( Amer) Est GFR (Non-Af Amer) Glucose Lactic Acid 0.6 L Calcium Magnesium Total Bilirubin AST ALT Alkaline Phosphatase Total Protein Albumin 03/20/17 06:45 WBC RBC Hgb Hct MCV MCH MCHC RDW Plt Count Seg Neutrophils % Lymphocytes % Monocytes % Eosinophils % Basophils % Absolute Neutrophils Absolute Lymphocytes Absolute Monocytes Absolute Eosinophils Absolute Basophils Carbonic Acid HCO3/H2CO3 Ratio ABG pH ABG pCO2 ABG pO2 ABG HCO3 ABG O2 Saturation ABG Base Excess FiO2 Sodium 144.7 Potassium 4.6 Chloride 106 Carbon Dioxide 23 Anion Gap 16 BUN 75 H Creatinine 2.81 H Est GFR ( Amer) 28 L Est GFR (Non-Af Amer) 23 L Glucose 84 Lactic Acid Calcium 8.9 Magnesium 1.7 Total Bilirubin 0.5 AST 47 ALT 57 Alkaline Phosphatase 116 Total Protein 6.3 Albumin 3.0 L 03/19/17 03/19/17 03/19/17 12:10 12:10 12:10 Creatine Kinase 38 L CK-MB (CK-2) 6.26 H Troponin I 0.103 NT-Pro-B Natriuret Pep 03/19/17 03/19/17 03/20/17 18:40 18:40 00:45 Creatine Kinase 49 L 44 L CK-MB (CK-2) 7.97 H Troponin I 0.091 NT-Pro-B Natriuret Pep 03/20/17 03/20/17 00:45 06:45 Creatine Kinase CK-MB (CK-2) 6.57 H Troponin I 0.106 NT-Pro-B Natriuret Pep 41134 H Impressions: Chest X-Ray 03/20/17 00:00 IMPRESSION: Interval progression in the bibasilar densities as noted above. Other findings as noted above Assessment & Plan - Diagnosis (1) Accelerated hypertension Is this a current diagnosis for this admission?: YesPlan: Will increase the hydralazine 50 mg p.o. every 8 and a try to wean him from the nitro drip and follow with the nephrology (2) Acute exacerbation of CHF (congestive heart failure) Qualifiers: Congestive heart failure type: diastolic Qualified Code(s): I50.33 - Acute on chronic diastolic (congestive) heart failure Is this a current diagnosis for this admission?: YesPlan: Continues to Lasix IV (3) Anemia in chronic kidney disease (CKD) Is this a current diagnosis for this admission?: YesPlan: Currently stable (4) Chronic kidney disease, stage IV (severe) Is this a current diagnosis for this admission?: YesPlan: Follow with the nephrology currently no need for renal replacement therapy (5) Diabetes mellitus, type II Qualifiers: Diabetes mellitus complication status: with unspecified complications Is this a current diagnosis for this admission?: YesPlan: Stable (6) History of kidney transplant Is this a current diagnosis for this admission?: YesPlan: Patients follow the [facility] (7) Decubitus skin ulcer Qualifiers: Pressure ulcer location: ankle Pressure ulcer stage: stage 3 Laterality: left Qualified Code(s): L89.523 - Pressure ulcer of left ankle, stage 3 Is this a current diagnosis for this admission?: YesPlan: Continues continues to dressing change (8) Fever Qualifiers: Fever type: due to other condition Qualified Code(s): R50.81 - Fever presenting with conditions classified elsewhere Is this a current diagnosis for this admission?: YesPlan: Since recently diagnosed with the urinary tract infection and the bacteremia at the [facility] and patient was on IV Rocephin will add the IV cefepime to better coverage of the gram-negative organism with the recent hospitalization and currently on possible underlying pneumonia (9) UTI (urinary tract infection) Qualifiers: Urinary tract infection type: site unspecified Hematuria presence: without hematuria Qualified Code(s): N39.0 - Urinary tract infection, site not specified Is this a current diagnosis for this admission?: YesPlan: Continues to current IV antibiotic - Time Time Spent with patient: 15-24 minutes Medications reviewed and adjusted accordingly: Yes Anticipated discharge: Home Within: Other - Inpatient Certification Medical Necessity: Need Close Monitoring Due to Risk of Patient Decompensation, Need for IV Antibiotics Post Hospital Care: D/C News Assignment Editor Documentation - Plan Summary Plan Summary: Discussed with the Nancy about the patient's current conditions and discussed with the patient about the all the test report and continues IV antibiotic continues to follow with the nephrology and cardiology
[2017-03-20 12:45] LABS: ARTERIAL BLOOD BASE EXCESS 0 mmol/L
[2017-03-20] MEDS: CEFEPIME 1 GM/D5W RTU 50 ML IV SCH ×2 (13:09→23:16)
[2017-03-20] MEDS: HYDRALAZINE HCL 50 MG TABLET PO SCH ×2 (13:10→23:17)
[2017-03-20] MEDS ORDERED: BENZONATATE 100 MG CAPSULE PO PRN (14:35)
--- NOTE | 2017-03-20 14:35 | PDOC CONSULTATION ---
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 Patient was just recently at [facility] from March 13 until March 17 due to UTI with bacteremia secondary to Proteus in the urine and Enterobacter in the blood. Patient was discharged with home health arrangement for IV ceftriaxone daily for 14 days followed by 1 week of Bactrim after that. While the patient was there the patient said he was given a lot of IV fluids and his Bumex was only resumed on day 3 of hospitalization. He said he developed a cough while he was still in the hospital at [facility] about 2 days ago. When he came home the cough continued. Last night his cough gotten worse as well as the shortness of breath. He said he wears CPap during sleep but even then continues to be short of breath. He otherwise denies any chest pain, fever, nausea, vomiting, nor diarrhea. He mentions that his urine output seems diminished. He was diagnosed with possible urinary retention at [facility] and he was taught to do self-catheterization twice a day. He has not really started yet. This morning when he presented he also had elevated blood pressure with systolic blood pressure around 230s. Blood pressure is still elevated at the moment. He was started on Nitrol drip and his blood pressure medications is currently being given. He is also being started on low dose Lasix intravenously. He admits to frequent cough is usually dry as of late however is been productive of clear to yellow phlegm he denies any hemoptysis his PPD was negative the dates not known she had a history of chronic bronchitis as a child. He admits to exposure to passive smoke as a child and as an adult. He has not smoked for 8 years smoked 1-1/2 packs a day for approximately 40 years. He is not aware of any occupational exposure to potential respiratory toxins. He denies any pets or recent travel. He denies tightness in his chest, he sleeps on a hospital bed is 30 angle with one pillow he denies PND or nocturnal cough he admits that recently he has had more edema he carries a diagnosis of obstructive sleep apnea Past Medical History Cardiac Medical History: Reports: Congestive Heart Failure, Coronary Artery Disease, Myocardial Infarction - 2006, Hyperlipidema, Hypertension Pulmonary Medical History: Reports: Asthma, Chronic Obstructive Pulmonary Disease (COPD), Respiratory Failure, Sleep Apnea - On C Pap Neurological Medical History: Reports: Ischemic CVA, Other - History of Guillain -Ventura syndrome in 2013 with paraplegia Endocrine Medical History: Reports: Diabetes Mellitus Type 1, Diabetes Mellitus Type 2 Renal/ Medical History: Reports: End Stage Renal Disease - Secondary to diabetes and hypertension. Patient did peritoneal dialysis, Other - Episode of acute kidney injury in the past requiring hemodialysis last year. History of acute rejection in the past GI Medical History: Denies: Crohn's Disease, Diverticulitis, Ulcerative Colitis Psychiatric Medical History: Denies: Depression Infectious Medical History: Reports: Clostridium Difficile, Other - History of CMV viremia, history of Foster myelitis Past Surgical History Past Surgical History: Reports: Coronary Artery Bypass Graft - Quadruple bypass 2007, Renal Transplant - August 2013, Other - History peritoneal dialysis catheter placement and removal Social History Information Source: Patient, [facility] Records Lives with: Spouse/Significant other Smoking Status: Former Smoker Passive smoke exposure as: Both Frequency of Alcohol Use: None Hx Recreational Drug Use: No Drugs: None Hx Prescription Drug Abuse: No Do you have pets?: No Have you had any respiratory illnesses as a child?: Yes Have you been exposed to any sick contacts recently?: No Have you had any recent respiratory illnesses?: No Have you travelled outside of [place] in the past 12 months?: Yes - Advance Directive Resuscitation Status: Full Code Family History Family History: Reviewed & Not Pertinent, CAD Parental Family History Reviewed: Yes Children Family History Reviewed: Yes Sibling(s) Family History Reviewed.: Yes Medication/Allergy Home Medications: Ascorbic Acid [Vitamin C] 250 mg PO QAM 03/19/17 Atorvastatin Calcium [Lipitor 10 mg Tablet] 10 mg PO QHS 03/19/17 B Complex & C No.20/Folic Acid [Nephrocaps Softgel] 1 cap PO WSUPPER 03/19/17 Bumetanide [Bumex 0.5 mg Tablet] 0.5 mg PO QAM 03/19/17 Citric Acid/Sodium Citrate [Shohl's Modified Solution] 30 ml PO TID 03/19/17 Clonazepam [Klonopin] 0.25 mg PO BID 03/19/17 Ergocalciferol (Vitamin D2) [Drisdol 50,000 unit (1.25MG) Capsule] 50,000 units PO WE@1000 03/19/17 Ferrous Sulfate [Feosol 325 mg Tablet] 325 mg PO BIDACBS 03/19/17 Hydralazine HCl [Apresoline 25 mg Tablet] 25 mg PO TID 03/19/17 Insulin Glargine,Hum.rec.anlog [Lantus Insulin 100 Unit/1 ml 10 ml] 3 units SUBCUT QHS 03/19/17 Insulin Lispro [Humalog Insulin (Lispro) 100 unit/mL] 4 units SUBCUT MEALS 03/19 Isosorbide Mononitrate [Isosorbide Mononitrate ER] 30 mg PO QAM 03/19/17 Metoprolol Tartrate [Lopressor 50 mg Tablet] 50 mg PO Q12 03/19/17 Mupirocin 1 applic TOP BID 03/19/17 Nitroglycerin [Nitrostat] 0.4 mg SL Q5MP PRN 03/19/17 Omeprazole 20 mg PO DAILY 03/19/17 Prednisone [Deltasone 5 mg Tablet] 12.5 mg PO [id number] 03/19/17 Tamsulosin HCl [Flomax] 0.4 mg PO DAILY 03/19/17 Allergies/Adverse Reactions: No Known Allergies Allergy (Verified 02/28/15 17:57) Physical Exam Vital Signs: Temp Pulse Resp BP Pulse Ox 101.0 F H 78 18 180/80 H 98 03/20/17 07:08 03/20/17 08:04 03/20/17 08:04 03/20/17 07:08 03/20/17 08:04 Intake & Output 03/19/17 03/20/17 03/21/17 06:59 06:59 06:59 Intake Total 298 Output Total 1525 Balance -1227 Weight 72.8 kg General appearance: PRESENT: cooperative, disheveled, thin, well-developed Head exam: PRESENT: atraumatic, normocephalic Eye exam: PRESENT: conjunctiva pale Mouth exam: PRESENT: dry mucosa, neck supple Neck exam: ABSENT: carotid bruit, JVD, lymphadenopathy, thyromegaly Respiratory exam: PRESENT: decreased breath sounds, prolonged expiratory phas, rhonchi, symmetrical Cardiovascular exam: PRESENT: RRR, +S1, +S2 Pulses: PRESENT: normal radial pulses GI/Abdominal exam: PRESENT: normal bowel sounds, soft. ABSENT: distended, guarding, mass, organolmegaly, rebound, tenderness Rectal exam: PRESENT: deferred Gentrourinary exam: PRESENT: indwelling catheter Musculoskeletal exam: PRESENT: normal inspection Neurological exam: PRESENT: alert, awake, other - Flaccid paralysis left left- sided Psychiatric exam: PRESENT: normal mood Skin exam: PRESENT: dry, warm Results Laboratory Results: 03/20/17 06:45 03/20/17 06:45 03/19/17 03/20/17 03/20/17 12:10 06:00 06:45 WBC 14.5 H RBC 3.68 L Hgb 10.7 L Hct 33.8 L MCV 92 MCH 29.0 MCHC 31.5 L RDW 17.0 H Plt Count 243 Seg Neutrophils % 49.3 Lymphocytes % 37.8 Monocytes % 11.1 Eosinophils % 1.1 Basophils % 0.7 Absolute Neutrophils 7.1 Absolute Lymphocytes 5.5 H Absolute Monocytes 1.6 H Absolute Eosinophils 0.2 Absolute Basophils 0.1 Carbonic Acid 1.17 HCO3/H2CO3 Ratio 20:1 ABG pH 7.41 ABG pCO2 38.9 ABG pO2 39.9 L* ABG HCO3 24.1 ABG O2 Saturation 75.6 L ABG Base Excess -0.4 FiO2 30% Sodium Potassium Chloride Carbon Dioxide Anion Gap BUN Creatinine Est GFR ( Amer) Est GFR (Non-Af Amer) Glucose Lactic Acid 0.6 L Calcium Magnesium Total Bilirubin AST ALT Alkaline Phosphatase Total Protein Albumin 03/20/17 06:45 WBC RBC Hgb Hct MCV MCH MCHC RDW Plt Count Seg Neutrophils % Lymphocytes % Monocytes % Eosinophils % Basophils % Absolute Neutrophils Absolute Lymphocytes Absolute Monocytes Absolute Eosinophils Absolute Basophils Carbonic Acid HCO3/H2CO3 Ratio ABG pH ABG pCO2 ABG pO2 ABG HCO3 ABG O2 Saturation ABG Base Excess FiO2 Sodium 144.7 Potassium 4.6 Chloride 106 Carbon Dioxide 23 Anion Gap 16 BUN 75 H Creatinine 2.81 H Est GFR ( Amer) 28 L Est GFR (Non-Af Amer) 23 L Glucose 84 Lactic Acid Calcium 8.9 Magnesium 1.7 Total Bilirubin 0.5 AST 47 ALT 57 Alkaline Phosphatase 116 Total Protein 6.3 Albumin 3.0 L 03/19/17 03/19/17 03/19/17 12:10 12:10 12:10 Creatine Kinase 38 L CK-MB (CK-2) 6.26 H Troponin I 0.103 NT-Pro-B Natriuret Pep 03/19/17 03/19/17 03/20/17 18:40 18:40 00:45 Creatine Kinase 49 L 44 L CK-MB (CK-2) 7.97 H Troponin I 0.091 NT-Pro-B Natriuret Pep 03/20/17 03/20/17 00:45 06:45 Creatine Kinase CK-MB (CK-2) 6.57 H Troponin I 0.106 NT-Pro-B Natriuret Pep 27828 H Impressions: Chest X-Ray 03/19/17 07:32 IMPRESSION: Moderate central pulmonary edema pattern and small left lateral basilar opacity. Differential diagnosis includes pulmonary edema and pneumonia. Assessment & Plan - Diagnosis (1) Acute exacerbation of CHF (congestive heart failure) Qualifiers: Congestive heart failure type: combined Qualified Code(s): I50.43 - Acute on chronic combined systolic (congestive) and diastolic (congestive) heart failure Is this a current diagnosis for this admission?: YesPlan: Gentle diuresis (2) Chronic kidney disease, stage IV (severe) Is this a current diagnosis for this admission?: Yes (3) Cough Is this a current diagnosis for this admission?: YesPlan: Patient states this is improved when he is wears noninvasive positive pressure ventilator, Tessalon Perles as needed (4) Upper respiratory infection, acute Is this a current diagnosis for this admission?: YesPlan: Bibasilar airspace disease bilateral pleural effusions left greater than right WBC 14,500 no left shift T-max 101.1 ABG this morning on 30% FiO2 BiPAP to persistent hypoxemia increased the EPAP increased FiO2 suggest the patient wear the mask and unless he is eating then and approximately 1 hour postprandial at which time he can use the nasal cannulas
--- NOTE | 2017-03-20 15:41 | PDOC PROGRESS REPORT ---
Subjective Progress Note for:: 03/20/17 Subjective:: Patient is a lot better today. His blood pressure is improved. He diuresis fairly well with a low dose Lasix. Kidney function is stable. He doesn't have any other new complaints. A bladder scan receiving dock checker showed only 47 mL so he didn't need to have straight catheterization. Physical Exam Vital Signs: Temp Pulse Resp BP Pulse Ox 98.1 F 75 22 H 121/51 L 100 03/20/17 15:31 03/20/17 15:31 03/20/17 15:31 03/20/17 15:31 03/20/17 15:31 Pulse Oximeter Continuous Start: 03/20/17 09: 52 Freq: RTQ4 Status: Active Document 03/20/17 14:10 JDR (Rec: 03/20/17 14:29 JDR [id number]) Pulse Oximetry Assessment Oxygen Saturation (92-100) 98 Oxygen Flow Rate (L/min) 2 Oxygen Delivery Method Nasal Cannula Fraction of Inspired Oxygen (FIO2) 28 Equipment Usage Initial Set Up Continuous Pulse Oximeter 24 Hour Charge Charge Now Continuous SpO2 Machine # 3 Intake & Output 03/19/17 03/20/17 03/21/17 06:59 06:59 06:59 Intake Total 298 354 Output Total 1525 150 Balance -1227 204 Weight 72.8 kg Exam: General appearance: PRESENT: no acute distress, cooperative, well-developed, well-nourished; patient comfortable on BiPAP. Head exam: PRESENT: atraumatic, normocephalic Eye exam: PRESENT: conjunctiva pink, PERRLA. ABSENT: scleral icterus Neck exam: ABSENT: JVD Respiratory exam: PRESENT: Coarse breath sounds. Positive rhonchi ABSENT: crackles, rales, unlabored, wheezes Cardiovascular exam: PRESENT: Regular rate rhythm -+S1, +S2. ABSENT: diastolic murmur, systolic murmur GI/Abdominal exam: PRESENT: normal bowel sounds, soft. ABSENT: guarding, mass, tenderness Extremities exam: Grade 1 bilateral lower extremity pitting edema Neurological exam: PRESENT: alert, awake, oriented to person, place and time. Skin exam: PRESENT: dry, warm, Results Laboratory Results: 03/20/17 06:45 03/20/17 06:45 03/20/17 03/20/17 03/20/17 06:00 06:45 06:45 WBC 14.5 H RBC 3.68 L Hgb 10.7 L Hct 33.8 L MCV 92 MCH 29.0 MCHC 31.5 L RDW 17.0 H Plt Count 243 Seg Neutrophils % 49.3 Lymphocytes % 37.8 Monocytes % 11.1 Eosinophils % 1.1 Basophils % 0.7 Absolute Neutrophils 7.1 Absolute Lymphocytes 5.5 H Absolute Monocytes 1.6 H Absolute Eosinophils 0.2 Absolute Basophils 0.1 Carbonic Acid 1.17 HCO3/H2CO3 Ratio 20:1 ABG pH 7.41 ABG pCO2 38.9 ABG pO2 39.9 L* ABG HCO3 24.1 ABG O2 Saturation 75.6 L ABG Base Excess -0.4 FiO2 30% Sodium 144.7 Potassium 4.6 Chloride 106 Carbon Dioxide 23 Anion Gap 16 BUN 75 H Creatinine 2.81 H Est GFR ( Amer) 28 L Est GFR (Non-Af Amer) 23 L Glucose 84 Calcium 8.9 Magnesium 1.7 Total Bilirubin 0.5 AST 47 ALT 57 Alkaline Phosphatase 116 Total Protein 6.3 Albumin 3.0 L 03/20/17 12:30 WBC RBC Hgb Hct MCV MCH MCHC RDW Plt Count Seg Neutrophils % Lymphocytes % Monocytes % Eosinophils % Basophils % Absolute Neutrophils Absolute Lymphocytes Absolute Monocytes Absolute Eosinophils Absolute Basophils Carbonic Acid 1.15 HCO3/H2CO3 Ratio 21:1 ABG pH 7.42 ABG pCO2 38.2 ABG pO2 89.8 ABG HCO3 24.3 ABG O2 Saturation 97.0 ABG Base Excess 0 FiO2 40% Sodium Potassium Chloride Carbon Dioxide Anion Gap BUN Creatinine Est GFR ( Amer) Est GFR (Non-Af Amer) Glucose Calcium Magnesium Total Bilirubin AST ALT Alkaline Phosphatase Total Protein Albumin 03/19/17 03/19/17 03/19/17 12:10 12:10 12:10 Creatine Kinase 38 L CK-MB (CK-2) 6.26 H Troponin I 0.103 NT-Pro-B Natriuret Pep 03/19/17 03/19/17 03/20/17 18:40 18:40 00:45 Creatine Kinase 49 L 44 L CK-MB (CK-2) 7.97 H Troponin I 0.091 NT-Pro-B Natriuret Pep 03/20/17 03/20/17 00:45 06:45 Creatine Kinase CK-MB (CK-2) 6.57 H Troponin I 0.106 NT-Pro-B Natriuret Pep 28229 H Impressions: Chest X-Ray 03/20/17 00:00 IMPRESSION: Interval progression in the bibasilar densities as noted above. Other findings as noted above Assessment & Plan - Diagnosis (1) Acute exacerbation of CHF (congestive heart failure) Qualifiers: Congestive heart failure type: combined Qualified Code(s): I50.43 - Acute on chronic combined systolic (congestive) and diastolic (congestive) heart failure Is this a current diagnosis for this admission?: YesPlan: Agree with low dose Lasix intravenously as ordered for gentle diuresis. Monitor intake and output if possible. (2) Chronic kidney disease, stage IV (severe) Is this a current diagnosis for this admission?: YesPlan: Patient's kidney function is actually better than last week. 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 Review of records shows slow deterioration of his kidney function. This is supported by a previous kidney transplant in February 2016 showing 60-70 % fibrosis. Kidney function stable. Currently the patient does not need any urgent renal replacement therapy. Monitor kidney function and urine output. Due to recent diagnosis of urinary retention we have to monitor his urine output via bladder scan and possible intermittent catheterization every shift. (3) History of kidney transplant Is this a current diagnosis for this admission?: YesPlan: donor kidney transplant in August 2013. Continue antirejection medications with the prednisone and tacrolimus. Follow tacrolimus trough level. (4) Hypertensive urgency Is this a current diagnosis for this admission?: YesPlan: Improved and controlled. (5) Cough Is this a current diagnosis for this admission?: YesPlan: This could be due to acute pulmonary edema. However cannot rule out any pulmonary infection. Recommend to obtain a sputum Gram stain and culture if possible. (6) Anemia in chronic kidney disease (CKD) Is this a current diagnosis for this admission?: Yes (7) Diabetes mellitus, type II Qualifiers: Diabetes mellitus complication status: with unspecified complications Is this a current diagnosis for this admission?: Yes (8) Coronary artery disease Qualifiers: Coronary Disease-Associated Artery/Lesion type: [place] artery [place] vs. transplanted heart: [place] heart Associated angina: without angina Qualified Code(s): I25.10 - Atherosclerotic heart disease of [place] coronary artery without angina pectoris Is this a current diagnosis for this admission?: Yes (9) UTI (urinary tract infection) Qualifiers: Urinary tract infection type: site unspecified Hematuria presence: without hematuria Qualified Code(s): N39.0 - Urinary tract infection, site not specified Is this a current diagnosis for this admission?: YesPlan: Continue ceftriaxone IV. - Time Time with patient: 15-25 minutes
[2017-03-20] MEDS: FOLIC ACID/VITAMIN B COMP W-C CAPSULE PO SCH (17:18)
--- NOTE | 2017-03-20 20:09 | PDOC PROGRESS REPORT ---
Subjective Progress Note for:: 03/20/17 Subjective:: Patient seems to be doing better with gradual improvement. Pt is denying any chest arm or neck discomfort. Patient denying any PND, orthopnea. Patient denied any sustained palpitations, dizziness, syncope, near syncope. Patient noted to have fever up to 101 this morning. Patient denying any other significant discomfort. Patient is maintaining sinus rhythm. Patient blood pressure is much improved. He is much less short of breath. His white cell count is noted to be elevated. Review of systems: Rest review of systems negative. Medications: Medications have been reviewed. Physical Exam Vital Signs: Temp Pulse Resp BP Pulse Ox 98.1 F 75 18 121/51 L 100 03/20/17 15:31 03/20/17 15:31 03/20/17 15:56 03/20/17 15:31 03/20/17 15:56 Pulse Oximeter Continuous Start: 03/20/17 09: 52 Freq: RTQ4 Status: Active Document 03/20/17 15:56 JDR (Rec: 03/20/17 15:58 [id number] [id number]) Pulse Oximetry Assessment Oxygen Saturation (92-100) 100 Oxygen Flow Rate (L/min) 2 Oxygen Delivery Method Nasal Cannula Equipment Usage Equipment in Use Continuous SpO2 Machine # 3 Intake & Output 03/19/17 03/20/17 03/21/17 06:59 06:59 06:59 Intake Total 298 694 Output Total 1525 150 Balance -1227 544 Weight 72.8 kg Exam: GENERAL: well-nourished and in no acute distress. Alert and oriented x3 HEAD: Atraumatic, normocephalic. EYES: Pupils equal round and reactive to light, extraocular movements intact, sclera anicteric, conjunctiva are normal. ENT: TMs normal, nares patent, oropharynx clear without exudates. Moist mucous membranes. No oral ulcerations or bleeding gums noted NECK: supple without lymphadenopathy. Trachea is central. No cervical or axillary lymphadenopathy noted. Carotids are 2+, JVD WNL LUNGS: Respiration seems nonlabored, no significant accessory muscle action noted. Right basal dullness with right basal crackles noted. CHEST: Palpation of the chest wall shows no significant chest wall tenderness. No other significant abnormalities noted. 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 ABDOMEN: Soft, no significant tenderness appreciated, normoactive bowel sounds. No guarding, no rebound. No rigidity noted . No masses appreciated. EXTREMITIES: Pedal pulses are 1-2+, no calf tenderness noted. No clubbing or cyanosis.1+ 1+ pedal edema noted NEUROLOGICAL: Focused neurological exam showed nofacial asymmetry. Speech is normal. Patient has chronic paraplegia. PSYCH: Normal mood, normal affect. Judgment and insight within normal limits. SKIN: No significant ecchymosis, rash, ulcerations or signs of pruritus noted. MUSCULOSKELETAL EXAM: No significant joint swelling noted. Results Laboratory Results: 03/20/17 06:45 03/20/17 06:45 03/20/17 03/20/17 03/20/17 06:00 06:45 06:45 WBC 14.5 H RBC 3.68 L Hgb 10.7 L Hct 33.8 L MCV 92 MCH 29.0 MCHC 31.5 L RDW 17.0 H Plt Count 243 Seg Neutrophils % 49.3 Lymphocytes % 37.8 Monocytes % 11.1 Eosinophils % 1.1 Basophils % 0.7 Absolute Neutrophils 7.1 Absolute Lymphocytes 5.5 H Absolute Monocytes 1.6 H Absolute Eosinophils 0.2 Absolute Basophils 0.1 Carbonic Acid 1.17 HCO3/H2CO3 Ratio 20:1 ABG pH 7.41 ABG pCO2 38.9 ABG pO2 39.9 L* ABG HCO3 24.1 ABG O2 Saturation 75.6 L ABG Base Excess -0.4 FiO2 30% Sodium 144.7 Potassium 4.6 Chloride 106 Carbon Dioxide 23 Anion Gap 16 BUN 75 H Creatinine 2.81 H Est GFR ( Amer) 28 L Est GFR (Non-Af Amer) 23 L Glucose 84 Calcium 8.9 Magnesium 1.7 Total Bilirubin 0.5 AST 47 ALT 57 Alkaline Phosphatase 116 Total Protein 6.3 Albumin 3.0 L 03/20/17 12:30 WBC RBC Hgb Hct MCV MCH MCHC RDW Plt Count Seg Neutrophils % Lymphocytes % Monocytes % Eosinophils % Basophils % Absolute Neutrophils Absolute Lymphocytes Absolute Monocytes Absolute Eosinophils Absolute Basophils Carbonic Acid 1.15 HCO3/H2CO3 Ratio 21:1 ABG pH 7.42 ABG pCO2 38.2 ABG pO2 89.8 ABG HCO3 24.3 ABG O2 Saturation 97.0 ABG Base Excess 0 FiO2 40% Sodium Potassium Chloride Carbon Dioxide Anion Gap BUN Creatinine Est GFR ( Amer) Est GFR (Non-Af Amer) Glucose Calcium Magnesium Total Bilirubin AST ALT Alkaline Phosphatase Total Protein Albumin 03/19/17 03/19/17 03/19/17 12:10 12:10 12:10 Creatine Kinase 38 L CK-MB (CK-2) 6.26 H Troponin I 0.103 NT-Pro-B Natriuret Pep 03/19/17 03/19/17 03/20/17 18:40 18:40 00:45 Creatine Kinase 49 L 44 L CK-MB (CK-2) 7.97 H Troponin I 0.091 NT-Pro-B Natriuret Pep 03/20/17 03/20/17 00:45 06:45 Creatine Kinase CK-MB (CK-2) 6.57 H Troponin I 0.106 NT-Pro-B Natriuret Pep [id number] H Impressions: Chest X-Ray 03/20/17 00:00 IMPRESSION: Interval progression in the bibasilar densities as noted above. Other findings as noted above Assessment & Plan - Diagnosis (1) Elevated troponin I level Is this a current diagnosis for this admission?: Yes (2) Accelerated hypertension Is this a current diagnosis for this admission?: Yes (3) Acute exacerbation of CHF (congestive heart failure) Qualifiers: Congestive heart failure type: combined Qualified Code(s): I50.43 - Acute on chronic combined systolic (congestive) and diastolic (congestive) heart failure Is this a current diagnosis for this admission?: Yes (4) Chronic kidney disease, stage IV (severe) Is this a current diagnosis for this admission?: Yes (5) Diabetes mellitus, type II Qualifiers: Diabetes mellitus complication status: with unspecified complications Is this a current diagnosis for this admission?: Yes - Notes Notes: Elevated troponin I level: Possibly related to severe hypertension, pulmonary edema in setting of significant renal dysfunction. Patient had no chest pain and no significant EKG changes. Right lower lobe pneumonia: This is felt to be present based on my chest x-ray reviewed. Continue antibiotic. Accelerated hypertension: Blood pressure goal should be 135/85 or less in view of significant renal dysfunction. Blood pressure is actually under better control. Dr. Girard discussed blood pressure management with me and we agreed on current dosing of antihypertensive. Acute excessive elevation of CHF: Based to be from diastolic dysfunction based on echocardiogram report. Continue IV Lasix therapy. Will monitor volume status very closely. Chronic kidney disease in transplanted kidney: We'll leave management to senior interactive producer. Currently seems stable. Diabetes: Recommend good control of blood sugar. However should avoid any hypoglycemia. Patient being expertly managed by primary care MMalika Sleep apnea syndrome: Patient advised to improve compliance. - Time Time with patient: Greater than 35 minutes - CODE STATUS was discussed, patient remains full code. Surrogate decision-maker unchanged. Multiple medical problems were addressed.More than 50% of the time spent coordinating care, discussing management plans with involved caregivers. Management plans discussed with involved personnels. Medical decision making was of moderate to high complexity, patient's has multiple severe comorbidities. Medications reviewed and adjusted accordingly: Yes
[2017-03-20] MEDS: INSULIN GLARGINE,HUM.REC.ANLOG 1,000 UNIT/10 ML UNIT SUBCUT SCH (23:16)
[2017-03-20] MEDS: ATORVASTATIN CALCIUM 10 MG TABLET PO SCH (23:18)
[2017-03-21] MEDS: HYDRALAZINE HCL 50 MG TABLET PO SCH ×3 (05:52→22:11)
[2017-03-21] MEDS: FUROSEMIDE INJ/PF 20 MG/2 ML SDV IV SCH ×3 (05:53→22:10)
[2017-03-21] MEDS: TACROLIMUS ANHYDROUS 1 MG CAPSULE PO SCH ×2 (06:01→17:48)
[2017-03-21 06:23] LABS: ABSOLUTE BASOPHILS # (AUTO) 0.1 10^3/uL (0.0-0.2); ABSOLUTE EOSINOPHILS # (AUTO) 0.1 10^3/uL (0.0-0.6); ABSOLUTE LYMPHOCYTES (AUTO) 4.3 10^3/uL (0.5-4.7); ABSOLUTE NEUT (AUTO) 3.9 10^3/uL (1.7-8.2); BASOPHILS % (AUTO) 0.6 % (0-2); EOSINOPHILS % (AUTO) 0.9 % (0-6); HEMATOCRIT 31.5 % (37.9-51.0); HEMOGLOBIN 10.3 g/dL (13.5-17.0); HGB HCT DIFFERENCE -0.6; LYMPHOCYTES % (AUTO) 46.4 % (13-45); MEAN CORPUSCULAR HEMOGLOBIN 30.1 pg (27.0-33.4); MEAN CORPUSCULAR HGB CONC 32.6 g/dL (32.0-36.0); MEAN CORPUSCULAR VOLUME 92 fl (80-97); MONOCYTES % (AUTO) 10.3 % (3-13); RED BLOOD COUNT 3.42 10^6/uL (4.35-5.55); RED CELL DISTRIBUTION WIDTH 16.8 % (11.5-14.0); SEGMENTED NEUTROPHILS % (AUTO) 41.8 % (42-78); WHITE BLOOD COUNT 9.3 10^3/uL (4.0-10.5)
[2017-03-21 06:44] LABS: ANION GAP 14 (5-19); BLOOD UREA NITROGEN 76 mg/dL (7-20); CALCIUM 8.8 mg/dL (8.4-10.2); CARBON DIOXIDE 26 mmol/L (22-30); CHLORIDE 106 mmol/L (98-107); CREATININE RESULT 2.71 mg/dL (0.52-1.25); GLUCOSE 129 mg/dL (75-110); MAGNESIUM 1.7 mg/dL (1.6-2.3); POTASSIUM 4.3 mmol/L (3.6-5.0); SODIUM 145.9 mmol/L (137-145)
[2017-03-21] MEDS: IPRATROPIUM/ALBUTEROL 0.5-2.5 MG/3 ML AMPUL NEB SCH ×3 (08:03→20:15)
[2017-03-21] MEDS: LANSOPRAZOLE 15 MG TAB.RAP.DR PO SCH (10:07)
[2017-03-21] MEDS: ISOSORBIDE MONONITRATE 30 MG TAB.ER.24H PO SCH (10:08)
[2017-03-21] MEDS: METOPROLOL TARTRATE 50 MG TABLET PO SCH ×2 (10:08→22:09)
[2017-03-21] MEDS: PREDNISONE 5 MG TABLET PO SCH (10:08)
[2017-03-21] MEDS: ASCORBIC ACID 500 MG TABLET PO SCH (10:08)
[2017-03-21] MEDS: FERROUS SULFATE 325 MG TABLET PO SCH ×2 (10:08→17:46)
[2017-03-21] MEDS: ENOXAPARIN SODIUM INJ 30 MG/0.3 ML DISP.SYRIN SUBCUT SCH (10:09)
[2017-03-21] MEDS: DOCUSATE SODIUM 100 MG CAPSULE PO SCH ×2 (10:09→17:47)
[2017-03-21] MEDS: TAMSULOSIN HCL 0.4 MG CAP.SR.24H PO SCH (10:09)
[2017-03-21] MEDS: MUPIROCIN 2% OINTMENT 22 GM TOP SCH ×2 (10:10→17:49)
[2017-03-21] MEDS: CEFEPIME 1 GM/D5W RTU 50 ML IV SCH ×2 (10:10→22:11)
[2017-03-21] MEDS: CITRIC ACID/SODIUM CITRATE ORAL SOLN 15 ML UDCUP PO SCH ×3 (10:10→17:49)
[2017-03-21] MEDS: CLONAZEPAM 1 MG TABLET PO SCH ×2 (10:29→22:10)
[2017-03-21] MEDS: INSULIN LISPRO 100 UNIT/ML 3 ML VIAL SUBCUT SCH ×3 (10:29→17:50)
--- NOTE | 2017-03-21 15:15 | PDOC PROGRESS REPORT ---
Subjective Progress Note for:: 03/21/17 Subjective:: Patient reported increase coughing ad sputum production so far today. No chest pain. No fever or chills. No nausea, vomiting, abdominal pain. Physical Exam Vital Signs: Temp Pulse Resp BP Pulse Ox 98.5 F 70 19 145/66 H 96 03/21/17 12:00 03/21/17 14:17 03/21/17 14:17 03/21/17 11:37 03/21/17 12:00 Pulse Oximeter Continuous Start: 03/20/17 09: 52 Freq: RTQ4 Status: Active Document 03/21/17 12:00 [facility] (Rec: 03/21/17 13:35 CW [email or web address]) Pulse Oximetry Assessment Oxygen Saturation (92-100) 96 Oxygen Flow Rate (L/min) 5 Oxygen Delivery Method Nasal Cannula Equipment Usage Equipment in Use Continuous SpO2 Machine # 10 Intake & Output 03/20/17 03/21/17 03/22/17 06:59 06:59 06:59 Intake Total 298 769 Output Total 1525 775 Balance -1227 -6 Weight 72.8 kg 76.3 kg Physical Exam: General appearance: PRESENT: no acute distress, well-developed, well-nourished Head exam: PRESENT: atraumatic, normocephalic Eye exam: PRESENT: conjunctiva pink, EOMI, PERRLA. ABSENT: scleral icterus Neck exam: PRESENT: full ROM. ABSENT: carotid bruit, JVD, lymphadenopathy, thyromegaly Respiratory exam: PRESENT: clear to auscultation jolie Cardiovascular exam: PRESENT: RRR. ABSENT: diastolic murmur, rubs, systolic murmur GI/Abdominal exam: PRESENT: normal bowel sounds, soft. ABSENT: distended, guarding, mass, organomegaly, rebound, tenderness Neurological exam: PRESENT: alert, awake, oriented to person, oriented to place , oriented to time, oriented to situation, CN II-XII grossly intact. ABSENT: motor sensory deficit Psychiatric exam: PRESENT: appropriate affect, normal mood. ABSENT: homicidal ideation, suicidal ideation Skin exam: PRESENT: dry, intact, warm. ABSENT: cyanosis, rash Results Laboratory Results: 03/21/17 05:58 03/21/17 05:58 03/21/17 03/21/17 05:58 05:58 WBC 9.3 RBC 3.42 L Hgb 10.3 L Hct 31.5 L MCV 92 MCH 30.1 MCHC 32.6 RDW 16.8 H Plt Count 206 Seg Neutrophils % 41.8 L Lymphocytes % 46.4 H Monocytes % 10.3 Eosinophils % 0.9 Basophils % 0.6 Absolute Neutrophils 3.9 Absolute Lymphocytes 4.3 Absolute Monocytes 1.0 Absolute Eosinophils 0.1 Absolute Basophils 0.1 Sodium 145.9 H Potassium 4.3 Chloride 106 Carbon Dioxide 26 Anion Gap 14 BUN 76 H Creatinine 2.71 H Est GFR ( Amer) 29 L Est GFR (Non-Af Amer) 24 L Glucose 129 H Calcium 8.8 Magnesium 1.7 03/19/17 19:00 Nasophary (Mrsa Only) MRSA Surveillance Culture - Final NO MRSA RECOVERED 03/19/17 03/19/17 03/19/17 12:10 12:10 12:10 Creatine Kinase 38 L CK-MB (CK-2) 6.26 H Troponin I 0.103 NT-Pro-B Natriuret Pep 03/19/17 03/19/17 03/20/17 18:40 18:40 00:45 Creatine Kinase 49 L 44 L CK-MB (CK-2) 7.97 H Troponin I 0.091 NT-Pro-B Natriuret Pep 03/20/17 03/20/17 03/21/17 00:45 06:45 05:58 Creatine Kinase CK-MB (CK-2) 6.57 H Troponin I 0.106 NT-Pro-B Natriuret Pep 31934 H 19771 H Impressions: Chest X-Ray 03/20/17 00:00 IMPRESSION: Interval progression in the bibasilar densities as noted above. Other findings as noted above Assessment & Plan - Diagnosis (1) Chronic kidney disease, stage IV (severe) Is this a current diagnosis for this admission?: YesPlan: Continue current medication management (2) Diabetes mellitus, type II Qualifiers: Diabetes mellitus complication status: with unspecified complications Diabetes mellitus fdc insulin use: without fdc use Qualified Code(s): E11.8 - Type 2 diabetes mellitus with unspecified complications Is this a current diagnosis for this admission?: YesPlan: Continue current medication management (3) Hypertension Is this a current diagnosis for this admission?: YesPlan: Continue current medication management (4) UTI (urinary tract infection) Qualifiers: Urinary tract infection type: site unspecified Hematuria presence: without hematuria Qualified Code(s): N39.0 - Urinary tract infection, site not specified Is this a current diagnosis for this admission?: YesPlan: Continue current medication management (5) Pneumonia Qualifiers: Pneumonia type: due to unspecified organism Laterality: bilateral Is this a current diagnosis for this admission?: YesPlan: Continue current medication management - Time Time Spent with patient: 25-34 minutes Medications reviewed and adjusted accordingly: Yes Anticipated discharge: Home with Homehealth Within: Other - Inpatient Certification Based on my medical assessment, after consideration of the patient's comorbidities, presenting symptoms, or acuity I expect that the services needed warrant INPATIENT care.: Yes I certify that my determination is in accordance with my understanding of Medicare's requirements for reasonable and necessary INPATIENT services [42 CFR 412.3e].: Yes Medical Necessity: Need Close Monitoring Due to Risk of Patient Decompensation, Need For IV Fluids, Need For Continuous Telemetry Monitoring, Need for IV Antibiotics, Risk of Complication if Not Cared For in Hospital 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
--- NOTE | 2017-03-21 16:35 | PDOC PROGRESS REPORT ---
Subjective Progress Note for:: 03/21/17 Subjective:: Patient seems to be doing better. Patient is comfortable without any chest pain or shortness of breath.. Pt is denying any chest arm or neck discomfort. Patient denying any PND, orthopnea. Patient denied any sustained palpitations, dizziness, syncope, near syncope. Patient denying any other significant discomfort. Patient is maintaining sinus rhythm. Patient noted to have intermittently elevated blood pressure.. He is much less short of breath. His white cell count is noted to be elevated. Review of systems: Rest review of systems negative. Medications: Medications have been reviewed. Physical Exam Vital Signs: Temp Pulse Resp BP Pulse Ox 98.5 F 70 19 145/66 H 96 03/21/17 12:00 03/21/17 14:17 03/21/17 14:17 03/21/17 11:37 03/21/17 12:00 Pulse Oximeter Continuous Start: 03/20/17 09: 52 Freq: RTQ4 Status: Active Document 03/21/17 12:00 [facility] (Rec: 03/21/17 13:35 [facility] [email or web address]) Pulse Oximetry Assessment Oxygen Saturation (92-100) 96 Oxygen Flow Rate (L/min) 5 Oxygen Delivery Method Nasal Cannula Equipment Usage Equipment in Use Continuous SpO2 Machine # 10 Intake & Output 03/20/17 03/21/17 03/22/17 06:59 06:59 06:59 Intake Total 298 769 Output Total 1525 775 Balance -1227 -6 Weight 72.8 kg 76.3 kg Exam: GENERAL: well-nourished and in no acute distress. Alert and oriented x3 HEAD: Atraumatic, normocephalic. EYES: Pupils equal round and reactive to light, extraocular movements intact, sclera anicteric, conjunctiva are normal. ENT: TMs normal, nares patent, oropharynx clear without exudates. Moist mucous membranes. No oral ulcerations or bleeding gums noted NECK: supple without lymphadenopathy. Trachea is central. No cervical or axillary lymphadenopathy noted. Carotids are 2+, JVD WNL LUNGS: Respiration seems nonlabored, no significant accessory muscle action noted. Right basal crackles and mild dullness noted. CHEST: Palpation of the chest wall shows no significant chest wall tenderness. No other significant abnormalities noted. HEART: Pyote RN LAB, No PSH, 1/6 MELBA aortic area, 1/6 paris systolic murmur mitral area, no rubs, no gallops. ABDOMEN: Soft, no significant tenderness appreciated, normoactive bowel sounds. No guarding, no rebound. No rigidity noted . No masses appreciated. EXTREMITIES: Pedal pulses are 1-2+, no calf tenderness noted. No clubbing or cyanosis.1+ pedal edema noted NEUROLOGICAL: Focused neurological exam showed paresis both upper and and lower extremity. Lower extremity weakness much more marked than upper extremity weakness. Normal speech. PSYCH: Normal mood, normal affect. Judgment and insight within normal limits. SKIN: No significant ecchymosis, rash, ulcerations or signs of pruritus noted. MUSCULOSKELETAL EXAM: No significant joint swelling noted. Results Laboratory Results: 03/21/17 05:58 03/21/17 05:58 03/21/17 03/21/17 05:58 05:58 WBC 9.3 RBC 3.42 L Hgb 10.3 L Hct 31.5 L MCV 92 MCH 30.1 MCHC 32.6 RDW 16.8 H Plt Count 206 Seg Neutrophils % 41.8 L Lymphocytes % 46.4 H Monocytes % 10.3 Eosinophils % 0.9 Basophils % 0.6 Absolute Neutrophils 3.9 Absolute Lymphocytes 4.3 Absolute Monocytes 1.0 Absolute Eosinophils 0.1 Absolute Basophils 0.1 Sodium 145.9 H Potassium 4.3 Chloride 106 Carbon Dioxide 26 Anion Gap 14 BUN 76 H Creatinine 2.71 H Est GFR ( Amer) 29 L Est GFR (Non-Af Amer) 24 L Glucose 129 H Calcium 8.8 Magnesium 1.7 03/19/17 19:00 Nasophary (Mrsa Only) MRSA Surveillance Culture - Final NO MRSA RECOVERED 03/19/17 03/19/17 03/19/17 12:10 12:10 12:10 Creatine Kinase 38 L CK-MB (CK-2) 6.26 H Troponin I 0.103 NT-Pro-B Natriuret Pep 03/19/17 03/19/17 03/20/17 18:40 18:40 00:45 Creatine Kinase 49 L 44 L CK-MB (CK-2) 7.97 H Troponin I 0.091 NT-Pro-B Natriuret Pep 03/20/17 03/20/17 03/21/17 00:45 06:45 05:58 Creatine Kinase CK-MB (CK-2) 6.57 H Troponin I 0.106 NT-Pro-B Natriuret Pep 84678 H 15710 H Impressions: Chest X-Ray 03/20/17 00:00 IMPRESSION: Interval progression in the bibasilar densities as noted above. Other findings as noted above Assessment & Plan - Diagnosis (1) Elevated troponin I level Is this a current diagnosis for this admission?: Yes (2) Accelerated hypertension Is this a current diagnosis for this admission?: Yes (3) Acute exacerbation of CHF (congestive heart failure) Qualifiers: Congestive heart failure type: combined Qualified Code(s): I50.43 - Acute on chronic combined systolic (congestive) and diastolic (congestive) heart failure Is this a current diagnosis for this admission?: Yes (4) Chronic kidney disease, stage IV (severe) Is this a current diagnosis for this admission?: Yes (5) Diabetes mellitus, type II Qualifiers: Diabetes mellitus complication status: with unspecified complications 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 Patient asymptomatic of any chest pain or any significant EKG changes. Accelerated hypertension: Elevation still has intermittently elevated blood pressure. Have added Norvasc to patient's regimen. CHF: This is compensated by clinical exam. Continue current diuretic therapy. 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 Diabetes: Reasonably well controlled. Sleep apnea syndrome: Patient claims compliance with CPAP therapy now. - Time Time with patient: 15-25 minutes - CODE STATUS was discussed, patient remains full code. Surrogate decision-maker unchanged. Multiple medical problems were addressed.More than 50% of the time spent coordinating care, discussing management plans with involved caregivers. Management plans discussed with involved personnels. Medical decision making was of moderate to high complexity , patient's has multiple severe comorbidities. Medications reviewed and adjusted accordingly: Yes
[2017-03-21] MEDS ORDERED: AMLODIPINE BESYLATE 2.5 MG TABLET PO ONE (16:45)
[2017-03-21] MEDS: FOLIC ACID/VITAMIN B COMP W-C CAPSULE PO SCH (17:47)
[2017-03-21] MEDS: INSULIN LISPRO 100 UNIT/ML 3 ML VIAL SUBCUT PRN (22:10)
[2017-03-21] MEDS: ATORVASTATIN CALCIUM 10 MG TABLET PO SCH (22:10)
[2017-03-21] MEDS: INSULIN GLARGINE,HUM.REC.ANLOG 1,000 UNIT/10 ML UNIT SUBCUT SCH (22:11)
[2017-03-22] MEDS: HYDRALAZINE HCL 50 MG TABLET PO SCH ×3 (05:27→23:11)
[2017-03-22] MEDS: FUROSEMIDE INJ/PF 20 MG/2 ML SDV IV SCH ×3 (05:27→23:08)
[2017-03-22 06:05] LABS: ABSOLUTE LYMPHOCYTES (AUTO) 3.7 10^3/uL (0.5-4.7); ABSOLUTE MONOCYTES (AUTO) 0.7 10^3/uL (0.1-1.4); ABSOLUTE NEUT (AUTO) 3.8 10^3/uL (1.7-8.2); BASOPHILS % (AUTO) 0.2 % (0-2); EOSINOPHILS % (AUTO) 0.5 % (0-6); HEMATOCRIT 28.6 % (37.9-51.0); HEMOGLOBIN 9.2 g/dL (13.5-17.0); LYMPHOCYTES % (AUTO) 44.8 % (13-45); MEAN CORPUSCULAR HEMOGLOBIN 30.2 pg (27.0-33.4); MEAN CORPUSCULAR HGB CONC 32.2 g/dL (32.0-36.0); MEAN CORPUSCULAR VOLUME 94 fl (80-97); MONOCYTES % (AUTO) 8.3 % (3-13); RED BLOOD COUNT 3.04 10^6/uL (4.35-5.55); RED CELL DISTRIBUTION WIDTH 16.7 % (11.5-14.0); SEGMENTED NEUTROPHILS % (AUTO) 46.2 % (42-78); WHITE BLOOD COUNT 8.2 10^3/uL (4.0-10.5)
[2017-03-22 06:19] LABS: ANION GAP 14 (5-19); BLOOD UREA NITROGEN 73 mg/dL (7-20); CALCIUM 8.3 mg/dL (8.4-10.2); CARBON DIOXIDE 25 mmol/L (22-30); CHLORIDE 105 mmol/L (98-107); CREATININE RESULT 2.96 mg/dL (0.52-1.25); GLUCOSE 174 mg/dL (75-110); MAGNESIUM 1.6 mg/dL (1.6-2.3); POTASSIUM 4.1 mmol/L (3.6-5.0)
[2017-03-22] MEDS: TACROLIMUS ANHYDROUS 1 MG CAPSULE PO SCH ×2 (06:41→18:01)
[2017-03-22] MEDS: IPRATROPIUM/ALBUTEROL 0.5-2.5 MG/3 ML AMPUL NEB SCH ×3 (08:43→20:35)
[2017-03-22] MEDS: ISOSORBIDE MONONITRATE 30 MG TAB.ER.24H PO SCH (09:52)
[2017-03-22] MEDS: LANSOPRAZOLE 15 MG TAB.RAP.DR PO SCH (09:52)
[2017-03-22] MEDS: TAMSULOSIN HCL 0.4 MG CAP.SR.24H PO SCH (09:53)
[2017-03-22] MEDS: PREDNISONE 5 MG TABLET PO SCH (09:53)
[2017-03-22] MEDS: METOPROLOL TARTRATE 50 MG TABLET PO SCH ×2 (09:53→23:11)
[2017-03-22] MEDS: ASCORBIC ACID 500 MG TABLET PO SCH (09:53)
[2017-03-22] MEDS: AMLODIPINE BESYLATE 2.5 MG TABLET PO SCH (09:54)
[2017-03-22] MEDS: FERROUS SULFATE 325 MG TABLET PO SCH ×2 (09:54→14:57)
[2017-03-22] MEDS: CEFEPIME 1 GM/D5W RTU 50 ML IV SCH ×2 (09:56→23:12)
[2017-03-22] MEDS: ENOXAPARIN SODIUM INJ 30 MG/0.3 ML DISP.SYRIN SUBCUT SCH (09:57)
[2017-03-22] MEDS: CITRIC ACID/SODIUM CITRATE ORAL SOLN 15 ML UDCUP PO SCH ×3 (09:59→18:00)
[2017-03-22] MEDS: CLONAZEPAM 1 MG TABLET PO SCH ×2 (10:00→23:10)
[2017-03-22] MEDS: DOCUSATE SODIUM 100 MG CAPSULE PO SCH ×2 (10:15→18:00)
[2017-03-22] MEDS: MUPIROCIN 2% OINTMENT 22 GM TOP SCH ×2 (10:15→18:02)
[2017-03-22] MEDS: INSULIN LISPRO 100 UNIT/ML 3 ML VIAL SUBCUT SCH ×3 (10:15→17:59)
--- NOTE | 2017-03-22 14:49 | PDOC PROGRESS REPORT ---
Subjective Progress Note for:: 03/22/17 Subjective:: Patient reported coughing and sputum production so far today. No chest pain. No fever or chills. No nausea, vomiting, abdominal pain. Physical Exam Vital Signs: Temp Pulse Resp BP Pulse Ox 98.6 F 71 18 133/58 H 97 03/22/17 11:51 03/22/17 11:51 03/22/17 11:51 03/22/17 11:51 03/22/17 12:00 Pulse Oximeter Continuous Start: 03/20/17 09: 52 Freq: RTQ4 Status: Active Document 03/22/17 12:00 [facility] (Rec: 03/22/17 12:14 [facility] [email or web address]) Pulse Oximetry Assessment Oxygen Saturation (92-100) 97 Oxygen Flow Rate (L/min) 4 Oxygen Delivery Method Nasal Cannula Equipment Usage Equipment in Use Continuous SpO2 Machine # 10 Intake & Output 03/21/17 03/22/17 03/23/17 06:59 06:59 06:59 Intake Total 769 1350 Output Total 775 1800 Balance -6 -450 Weight 76.3 kg 74.7 kg Physical Exam: General appearance: PRESENT: no acute distress, well-developed, well-nourished Head exam: PRESENT: atraumatic, normocephalic Eye exam: PRESENT: conjunctiva pink, EOMI, PERRLA. ABSENT: scleral icterus Neck exam: PRESENT: full ROM. ABSENT: carotid bruit, JVD, lymphadenopathy, thyromegaly Respiratory exam: PRESENT: clear to auscultation jolie Cardiovascular exam: PRESENT: RRR. ABSENT: diastolic murmur, rubs, systolic murmur GI/Abdominal exam: PRESENT: normal bowel sounds, soft. ABSENT: distended, guarding, mass, organomegaly, rebound, tenderness Neurological exam: PRESENT: alert, awake, oriented to person, oriented to place , oriented to time, oriented to situation, CN II-XII grossly intact. ABSENT: motor sensory deficit Psychiatric exam: PRESENT: appropriate affect, normal mood. ABSENT: homicidal ideation, suicidal ideation Skin exam: PRESENT: dry, intact, warm. ABSENT: cyanosis, rash General appearance: PRESENT: well-developed, well-nourished Results Laboratory Results: 03/22/17 05:26 03/22/17 05:26 03/22/17 03/22/17 05:26 05:26 WBC 8.2 RBC 3.04 L Hgb 9.2 L Hct 28.6 L MCV 94 MCH 30.2 MCHC 32.2 RDW 16.7 H Plt Count 183 Seg Neutrophils % 46.2 Lymphocytes % 44.8 Monocytes % 8.3 Eosinophils % 0.5 Basophils % 0.2 Absolute Neutrophils 3.8 Absolute Lymphocytes 3.7 Absolute Monocytes 0.7 Absolute Eosinophils 0.0 Absolute Basophils 0.0 Sodium 144.0 Potassium 4.1 Chloride 105 Carbon Dioxide 25 Anion Gap 14 BUN 73 H Creatinine 2.96 H Est GFR ( Amer) 26 L Est GFR (Non-Af Amer) 22 L Glucose 174 H Calcium 8.3 L Magnesium 1.6 03/19/17 19:00 Nasophary (Mrsa Only) MRSA Surveillance Culture - Final NO MRSA RECOVERED 03/19/17 03/19/17 03/19/17 12:10 12:10 12:10 Creatine Kinase 38 L CK-MB (CK-2) 6.26 H Troponin I 0.103 NT-Pro-B Natriuret Pep 03/19/17 03/19/17 03/20/17 18:40 18:40 00:45 Creatine Kinase 49 L 44 L CK-MB (CK-2) 7.97 H Troponin I 0.091 NT-Pro-B Natriuret Pep 03/20/17 03/20/17 03/21/17 00:45 06:45 05:58 Creatine Kinase CK-MB (CK-2) 6.57 H Troponin I 0.106 NT-Pro-B Natriuret Pep 27036 H 02707 H 03/22/17 06:04 Creatine Kinase CK-MB (CK-2) Troponin I NT-Pro-B Natriuret Pep 00755 H Impressions: Chest X-Ray 03/20/17 00:00 IMPRESSION: Interval progression in the bibasilar densities as noted above. Other findings as noted above Assessment & Plan - Diagnosis (1) Chronic kidney disease, stage IV (severe) Is this a current diagnosis for this admission?: Yes (2) Diabetes mellitus, type II Qualifiers: Diabetes mellitus complication status: with unspecified complications Diabetes mellitus retirement insulin use: without retirement use Qualified Code(s): E11.8 - Type 2 diabetes mellitus with unspecified complications; Z79.4 - longterm (current) use of insulin Is this a current diagnosis for this admission?: Yes (3) Hypertension Is this a current diagnosis for this admission?: Yes (4) UTI (urinary tract infection) Qualifiers: Urinary tract infection type: site unspecified Hematuria presence: without hematuria Qualified Code(s): N39.0 - Urinary tract infection, site not specified Is this a current diagnosis for this admission?: Yes (5) Pneumonia Qualifiers: Pneumonia type: due to unspecified organism Laterality: bilateral Is this a current diagnosis for this admission?: Yes - Time Time Spent with patient: 25-34 minutes Medications reviewed and adjusted accordingly: Yes Within: Other - Inpatient Certification Medical Necessity: Need Close Monitoring Due to Risk of Patient Decompensation, Need For IV Fluids, Need For Continuous Telemetry Monitoring, Need for IV Antibiotics, Risk of Complication if Not Cared For in Hospital Post 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
[2017-03-22] MEDS: FOLIC ACID/VITAMIN B COMP W-C CAPSULE PO SCH (18:00)
--- NOTE | 2017-03-22 18:50 | PDOC PROGRESS REPORT ---
Subjective Progress Note for:: 03/22/17 Subjective:: Patient seems to be doing better. Patient is comfortable without any chest pain or shortness of breath.. Pt is denying any chest arm or neck discomfort. Patient denying any PND, orthopnea. Patient denied any sustained palpitations, dizziness, syncope, near syncope. Patient denying any other significant discomfort. Patient claims he is bedbound and also wheelchair bound. Patient is maintaining sinus rhythm. Blood pressure has been more stable. He is much less short of breath. Review of systems: Rest review of systems negative. Medications: Medications have been reviewed. Physical Exam Vital Signs: Temp Pulse Resp BP Pulse Ox 98.6 F 71 18 133/58 H 97 03/22/17 11:51 03/22/17 11:51 03/22/17 11:51 03/22/17 11:51 03/22/17 12:00 Pulse Oximeter Continuous Start: 03/20/17 09: 52 Freq: RTQ4 Status: Active Document 03/22/17 12:00 [facility] (Rec: 03/22/17 12:14 [facility] [email or web address]) Pulse Oximetry Assessment Oxygen Saturation (92-100) 97 Oxygen Flow Rate (L/min) 4 Oxygen Delivery Method Nasal Cannula Equipment Usage Equipment in Use Continuous SpO2 Machine # 10 Intake & Output 03/21/17 03/22/17 03/23/17 06:59 06:59 06:59 Intake Total 769 1350 Output Total 775 1800 Balance -6 -450 Weight 76.3 kg 74.7 kg Exam: GENERAL: well-nourished and in no acute distress. Alert and oriented x3 HEAD: Atraumatic, normocephalic. EYES: Pupils equal round and reactive to light, extraocular movements intact, sclera anicteric, conjunctiva are normal. ENT: TMs normal, nares patent, oropharynx clear without exudates. Moist mucous membranes. No oral ulcerations or bleeding gums noted NECK: supple without lymphadenopathy. Trachea is central. No cervical or axillary lymphadenopathy noted. Carotids are 2+, JVD WNL LUNGS: Respiration seems nonlabored, no significant accessory muscle action noted. Right basal crackles and mild dullness noted. CHEST: Palpation of the chest wall shows no significant chest wall tenderness. No other significant abnormalities noted. HEART: Bryce PIN CLEANER, No PSH, 1/6 MELBA aortic area, 1/6 [place]is systolic murmur mitral area, no rubs, no gallops. ABDOMEN: Soft, no significant tenderness appreciated, normoactive bowel sounds. No guarding, no rebound. No rigidity noted . No masses appreciated. EXTREMITIES: Pedal pulses are 1-2+, no calf tenderness noted. No clubbing or cyanosis.1+ pedal edema noted NEUROLOGICAL: Focused neurological exam showed paresis both upper and and lower extremity. Lower extremity weakness much more marked than upper extremity weakness. Normal speech. PSYCH: Normal mood, normal affect. Judgment and insight within normal limits. SKIN: No significant ecchymosis, rash, ulcerations or signs of pruritus noted. MUSCULOSKELETAL EXAM: No significant joint swelling noted. Results Laboratory Results: 03/22/17 05:26 03/22/17 05:26 03/22/17 03/22/17 05:26 05:26 WBC 8.2 RBC 3.04 L Hgb 9.2 L Hct 28.6 L MCV 94 MCH 30.2 MCHC 32.2 RDW 16.7 H Plt Count 183 Seg Neutrophils % 46.2 Lymphocytes % 44.8 Monocytes % 8.3 Eosinophils % 0.5 Basophils % 0.2 Absolute Neutrophils 3.8 Absolute Lymphocytes 3.7 Absolute Monocytes 0.7 Absolute Eosinophils 0.0 Absolute Basophils 0.0 Sodium 144.0 Potassium 4.1 Chloride 105 Carbon Dioxide 25 Anion Gap 14 BUN 73 H Creatinine 2.96 H Est GFR ( Amer) 26 L Est GFR (Non-Af Amer) 22 L Glucose 174 H Calcium 8.3 L Magnesium 1.6 03/19/17 19:00 Nasophary (Mrsa Only) MRSA Surveillance Culture - Final NO MRSA RECOVERED 03/19/17 03/19/17 03/19/17 12:10 12:10 12:10 Creatine Kinase 38 L CK-MB (CK-2) 6.26 H Troponin I 0.103 NT-Pro-B Natriuret Pep 03/19/17 03/19/17 03/20/17 18:40 18:40 00:45 Creatine Kinase 49 L 44 L CK-MB (CK-2) 7.97 H Troponin I 0.091 NT-Pro-B Natriuret Pep 03/20/17 03/20/17 03/21/17 00:45 06:45 05:58 Creatine Kinase CK-MB (CK-2) 6.57 H Troponin I 0.106 NT-Pro-B Natriuret Pep 99800 H 20707 H 03/22/17 06:04 Creatine Kinase CK-MB (CK-2) Troponin I NT-Pro-B Natriuret Pep 38696 H Impressions: Chest X-Ray 03/20/17 00:00 IMPRESSION: Interval progression in the bibasilar densities as noted above. Other findings as noted above Assessment & Plan - Diagnosis (1) Elevated troponin I level Is this a current diagnosis for this admission?: Yes (2) Accelerated hypertension Is this a current diagnosis for this admission?: Yes (3) Acute exacerbation of CHF (congestive heart failure) Qualifiers: Congestive heart failure type: combined Qualified Code(s): I50.43 - Acute on chronic combined systolic (congestive) and diastolic (congestive) heart failure Is this a current diagnosis for this admission?: Yes (4) Chronic kidney disease, stage IV (severe) Is this a current diagnosis for this admission?: Yes (5) Diabetes mellitus, type II Qualifiers: Diabetes mellitus complication status: with unspecified complications Diabetes mellitus detention insulin use: without detention use Qualified Code(s): E11.8 - Type 2 diabetes mellitus with unspecified complications; Z79.4 - long-term (current) use of insulin Is this a current diagnosis for this admission?: Yes (6) Sleep apnea syndrome Qualifiers: Sleep apnea type: unspecified type Qualified Code(s): G47.30 - Sleep apnea, unspecified Is this a current diagnosis for this admission?: Yes - Notes Notes: Elevated troponin I: This is related to CHF, severe hypertension, pneumonia. Patient asymptomatic of any chest pain or any significant EKG changes. I discussed this with the patient. In view of patient having diabetes, history of neuropathy, it is possible that he could be having silent ischemia. I therefore opted to schedule him for a nuclear stress test. Accelerated hypertension: BP still intermittently elevated.. Have added Norvasc to patient's regimen. This is under better control and patient tolerating Norvasc therapy. CHF: This is compensated by clinical exam. Continue current diuretic therapy. 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 Diabetes: Reasonably well controlled. Sleep apnea syndrome: Patient claims compliance with CPAP therapy now. Patient being scheduled for a nuclear stress test. Further plans after nuclear stress test. A EKG is also being obtained tomorrow. - Time Time with patient: 15-25 minutes - CODE STATUS was discussed, patient remains full code. Surrogate decision-maker unchanged. Multiple medical problems were addressed.More than 50% of the time spent coordinating care, discussing management plans with involved caregivers. Management plans discussed with involved personnels. Medical decision making was of moderate to high complexity , patient's has multiple severe comorbidities. Medications reviewed and adjusted accordingly: Yes
[2017-03-22] MEDS: INSULIN GLARGINE,HUM.REC.ANLOG 1,000 UNIT/10 ML UNIT SUBCUT SCH (23:09)
[2017-03-22] MEDS: INSULIN LISPRO 100 UNIT/ML 3 ML VIAL SUBCUT PRN (23:09)
[2017-03-22] MEDS: ATORVASTATIN CALCIUM 10 MG TABLET PO SCH (23:11)
[2017-03-23] MEDS: FUROSEMIDE INJ/PF 20 MG/2 ML SDV IV SCH ×3 (06:50→21:38)
[2017-03-23] MEDS: HYDRALAZINE HCL 50 MG TABLET PO SCH ×3 (06:50→21:39)
[2017-03-23 07:22] LABS: ANION GAP 10 (5-19); BLOOD UREA NITROGEN 74 mg/dL (7-20); CALCIUM 8.7 mg/dL (8.4-10.2); CARBON DIOXIDE 28 mmol/L (22-30); CHLORIDE 106 mmol/L (98-107); CREATININE RESULT 2.72 mg/dL (0.52-1.25); GLUCOSE 133 mg/dL (75-110); POTASSIUM 3.9 mmol/L (3.6-5.0); SODIUM 144.4 mmol/L (137-145)
[2017-03-23] MEDS: IPRATROPIUM/ALBUTEROL 0.5-2.5 MG/3 ML AMPUL NEB SCH ×3 (08:24→20:18)
[2017-03-23] MEDS: INSULIN LISPRO 100 UNIT/ML 3 ML VIAL SUBCUT SCH ×3 (08:27→18:08)
[2017-03-23] MEDS: ENOXAPARIN SODIUM INJ 30 MG/0.3 ML DISP.SYRIN SUBCUT SCH (08:31)
[2017-03-23] MEDS: ISOSORBIDE MONONITRATE 30 MG TAB.ER.24H PO SCH (08:32)
--- NOTE | 2017-03-23 08:34 | EKG REPORT ---
SEVERITY:- ABNORMAL ECG - SINUS RHYTHM PROBABLE LEFT ATRIAL ABNORMALITY LEFT VENTRICULAR HYPERTROPHY INFERIOR INFARCT, AGE INDETERMINATE CONSIDER ANTERIOR INFARCT LATERAL LEADS ARE ALSO INVOLVED : Confirmed by: Zoe Lazo 23-Mar-2017 08:33:39
[2017-03-23] MEDS ORDERED: TACROLIMUS ANHYDROUS 1 MG CAPSULE PO SCH (10:00)
--- NOTE | 2017-03-23 10:23 | PDOC PROGRESS REPORT ---
Subjective Progress Note for:: 03/23/17 Subjective:: Patient is currently doing well no other events happens during weekends. Patient having no fever no chest pain no shortness of the breath patient scheduled for the Cardiolite stress test today. Physical Exam Vital Signs: Temp Pulse Resp BP Pulse Ox 97.6 F 70 16 176/60 H 98 03/23/17 07:45 03/23/17 08:24 03/23/17 08:24 03/23/17 07:45 03/23/17 08:24 Pulse Oximeter Continuous Start: 03/20/17 09: 52 Freq: RTQ4 Status: Active Document 03/23/17 08:24 LDA (Rec: 03/23/17 09:12 LDA [email or web address]) Pulse Oximetry Assessment Oxygen Saturation (92-100) 98 Oxygen Flow Rate (L/min) 2 Oxygen Delivery Method Nasal Cannula Equipment Usage Equipment in Use Continuous SpO2 Machine # 10 Intake & Output 03/22/17 03/23/17 03/24/17 06:59 06:59 06:59 Intake Total 1350 950 Output Total 1800 750 Balance -450 200 Weight 74.7 kg 74.2 kg General appearance: PRESENT: no acute distress, well-developed, well-nourished Head exam: PRESENT: atraumatic, normocephalic Eye exam: PRESENT: conjunctiva pink, EOMI, PERRLA. ABSENT: scleral icterus Ear exam: PRESENT: normal external ear exam Mouth exam: PRESENT: moist, tongue midline Neck exam: PRESENT: full ROM. ABSENT: carotid bruit, JVD, lymphadenopathy, thyromegaly Respiratory exam: PRESENT: clear to auscultation jolie Cardiovascular exam: PRESENT: RRR. ABSENT: diastolic murmur, rubs, systolic murmur Pulses: PRESENT: normal dorsalis pedis pul, +2 pedal pulses bilateral Vascular exam: PRESENT: normal capillary refill GI/Abdominal exam: PRESENT: normal bowel sounds, soft. ABSENT: distended, guarding, mass, organolmegaly, rebound, tenderness Rectal exam: PRESENT: deferred Neurological exam: PRESENT: alert, awake, oriented to person, oriented to place , oriented to time Psychiatric exam: PRESENT: appropriate affect, normal mood. ABSENT: homicidal ideation, suicidal ideation Skin exam: PRESENT: dry, intact, warm. ABSENT: cyanosis, rash Results Laboratory Results: 03/22/17 05:26 03/23/17 06:45 03/23/17 06:45 Sodium 144.4 Potassium 3.9 Chloride 106 Carbon Dioxide 28 Anion Gap 10 BUN 74 H Creatinine 2.72 H Est GFR ( Amer) 29 L Est GFR (Non-Af Amer) 24 L Glucose 133 H Calcium 8.7 03/19/17 03/19/17 03/19/17 12:10 12:10 12:10 Creatine Kinase 38 L CK-MB (CK-2) 6.26 H Troponin I 0.103 NT-Pro-B Natriuret Pep 03/19/17 03/19/17 03/20/17 18:40 18:40 00:45 Creatine Kinase 49 L 44 L CK-MB (CK-2) 7.97 H Troponin I 0.091 NT-Pro-B Natriuret Pep 03/20/17 03/20/17 03/21/17 00:45 06:45 05:58 Creatine Kinase CK-MB (CK-2) 6.57 H Troponin I 0.106 NT-Pro-B Natriuret Pep 62014 H 49244 H 03/22/17 06:04 Creatine Kinase CK-MB (CK-2) Troponin I NT-Pro-B Natriuret Pep 52093 H Impressions: Chest X-Ray 03/20/17 00:00 IMPRESSION: Interval progression in the bibasilar densities as noted above. Other findings as noted above Assessment & Plan - Diagnosis (1) Accelerated hypertension Is this a current diagnosis for this admission?: YesPlan: Currently all stable (2) Acute exacerbation of CHF (congestive heart failure) Qualifiers: Congestive heart failure type: combined Qualified Code(s): I50.43 - Acute on chronic combined systolic (congestive) and diastolic (congestive) heart failure Is this a current diagnosis for this admission?: YesPlan: Currently stable (3) Anemia in chronic kidney disease (CKD) Is this a current diagnosis for this admission?: YesPlan: Currently stable (4) Chronic kidney disease, stage IV (severe) Is this a current diagnosis for this admission?: YesPlan: Follow with the nephrology currently no need for renal replacement therapy (5) Diabetes mellitus, type II Qualifiers: Diabetes mellitus complication status: with unspecified complications Diabetes mellitus retirement insulin use: without retirement use Qualified Code(s): E11.8 - Type 2 diabetes mellitus with unspecified complications; Z79.4 - long term (current) use of insulin Is this a current diagnosis for this admission?: YesPlan: Stable (6) History of kidney transplant Is this a current diagnosis for this admission?: Yes (7) UTI (urinary tract infection) Qualifiers: Urinary tract infection type: site unspecified Hematuria presence: without hematuria Qualified Code(s): N39.0 - Urinary tract infection, site not specified Is this a current diagnosis for this admission?: Yes - Time Time Spent with patient: 15-24 minutes Medications reviewed and adjusted accordingly: Yes Anticipated discharge: Home Within: Other - Inpatient Certification Medical Necessity: Need Close Monitoring Due to Risk of Patient Decompensation Post Hospital 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 Bactrim as per discharge from the formerly [facility], [facility]
[2017-03-23] MEDS: ASCORBIC ACID 500 MG TABLET PO SCH (12:42)
[2017-03-23] MEDS: CEFEPIME 1 GM/D5W RTU 50 ML IV SCH (12:42)
[2017-03-23] MEDS: PREDNISONE 5 MG TABLET PO SCH (12:43)
[2017-03-23] MEDS: AMLODIPINE BESYLATE 2.5 MG TABLET PO SCH (12:43)
[2017-03-23] MEDS: FERROUS SULFATE 325 MG TABLET PO SCH ×2 (12:43→18:09)
[2017-03-23] MEDS: CLONAZEPAM 1 MG TABLET PO SCH ×2 (12:43→21:39)
[2017-03-23] MEDS: METOPROLOL TARTRATE 50 MG TABLET PO SCH ×2 (12:44→21:38)
[2017-03-23] MEDS: LANSOPRAZOLE 15 MG TAB.RAP.DR PO SCH (12:44)
[2017-03-23] MEDS: TAMSULOSIN HCL 0.4 MG CAP.SR.24H PO SCH (12:44)
[2017-03-23] MEDS: MUPIROCIN 2% OINTMENT 22 GM TOP SCH ×2 (12:45→18:12)
--- NOTE | 2017-03-23 12:51 | DRAGON STRESS TEST REPORT ---
INTRAVENOUS LEXISCAN CARDIOLITE STRESS TEST USING SINGLE PHOTON EMMISION COMPUTERIZED TOMOGRAPHIC. DATE OF PROCEDURE: March 23, 2017 INDICATION : Elevated troponin I, CAD CARDIAC RISK FACTORS: Hypertension, diabetes, CAD RESTING EKG: Sinus rhythm, abnormal inferior Q waves, LVH STRESS EKG: No significant changes noted with LexiScan bolus REASON FOR TERMINATION: Protocol. PROCEDURE REPORT: Baseline heart rate 72 beats per minute with blood pressure of 122/53. Patient had no significant complaints. Heart rate at 2 minutes post bolus 84 with a blood pressure of 143/57. 3 minutes post bolus heart rate 81 with blood pressure of 150/56. No significant EKG changes were noted. Patient had no significant complaints during the procedure or postprocedure. Patient injected with Aminophyllin 75 mg at 3 minutes or later after Lexiscan bolus. CONCLUSIONS: Normal EKG and hemodynamic response to IV LexiScan. NUCLEAR DATA: At rest the patient was given 11.72 millicuries of technetium 99 sestamibi injected intravenously. As per protocol rest gated SPECT images were obtained. Subsequently the patient was given intravenous LexiScan at a dose of 0.4 mg in 5 mL intravenously, followed by flush with normal saline. Subsequently the stress dose of 33.5 millicuries of technetium 99 sestamibi was injected intravenously. As per protocol stress gated images were obtained. NUCLEAR INTERPRETATION: Both raw and processed data were used for interpretation. Visual, qualitative, computer-generated quantitative data was used. There was good myocardial uptake of technetium compound. Motion artifact and soft tissue attenuations were noted. Increased visceral uptake was noted. No definitive areas of transient perfusion defect noted. Inferoapical and apical moderate to severe fixed perfusion defect or scars noted. EKG gated imaging showed LV EF at 45 %, rest and stress gated EF similar visually inferoapical akinesia noted. T. I D. ratio was 1.19. Lung heart ratio noted to be within normal limits 0.40. No significant extracardiac and abnormal radiotracer activities were noted. RV free wall uptake was noted to be increased. IMPRESSION: Also refer to comments under nuclear interpretation. Also test results needs to be interpreted in the context of pretest probability. 1. There is no definitive scintigraphic evidence of LexiScan induced myocardial ischemia. 2. There is inferoapical and apical fixed defect noted indicative of myocardial infarction/scar. 3. EKG gated imaging shows left ejection fraction of approximately 45 % with apical and inferoapical akinesia. 4. Clinical correlation requested as occasionally single vessel disease or balanced ischemia could be missed. In approximately 10% of the cases Lexiscan may not cause adequate vasodilatory stress. RECOMMENDATIONS: Aggressive risk factor modification, medical therapy. May consider heart catheterization if severe symptoms. Clinical correlation with echocardiogram derived ejection fraction. Inability to exercise by itself can lead to increased cardiovascular event risks. Consider cardiology consultation and or follow-up if clinically indicated. I AM AVAILABLE FOR CARDIOLOGY CONSULTATION AND FOLLOWUP IF REQUESTED BY PMAbelardo Lazo M.D., KAI Endo Tech manager nursing, Board certified in cardiovascular diseases, Nuclear cardiology, Echocardiography Cardiac CT and cardiac MRI Ph. [phone] ANJALI
[2017-03-23] MEDS: DOCUSATE SODIUM 100 MG CAPSULE PO SCH ×2 (13:18→17:48)
--- NOTE | 2017-03-23 14:28 | PDOC PROGRESS REPORT ---
Subjective Progress Note for:: 03/23/17 Subjective:: Maybe a little better Physical Exam Vital Signs: Temp Pulse Resp BP Pulse Ox 97.9 F 75 18 188/74 H 100 03/23/17 12:02 03/23/17 13:42 03/23/17 13:42 03/23/17 12:02 03/23/17 13:42 Pulse Oximeter Continuous Start: 03/20/17 09: 52 Freq: RTQ4 Status: Active Document 03/23/17 12:00 LDA (Rec: 03/23/17 12:44 LDA [email or web address]) Pulse Oximetry Assessment Oxygen Saturation (92-100) 98 Oxygen Flow Rate (L/min) 2 Oxygen Delivery Method Nasal Cannula Equipment Usage Equipment in Use Continuous SpO2 Machine # 10 Intake & Output 03/22/17 03/23/17 03/24/17 06:59 06:59 06:59 Intake Total 1350 950 240 Output Total 1800 750 750 Balance -450 200 -510 Weight 74.7 kg 74.2 kg General appearance: PRESENT: no acute distress, cooperative, disheveled, well- developed Head exam: PRESENT: atraumatic, normocephalic Eye exam: PRESENT: conjunctiva pale, EOMI Mouth exam: PRESENT: dry mucosa, neck supple Neck exam: ABSENT: carotid bruit, JVD, lymphadenopathy, thyromegaly Respiratory exam: PRESENT: decreased breath sounds, prolonged expiratory phas, rhonchi, symmetrical, unlabored Cardiovascular exam: PRESENT: RRR, +S1, +S2 Pulses: PRESENT: normal radial pulses GI/Abdominal exam: PRESENT: ascites Rectal exam: PRESENT: deferred Gentrourinary exam: PRESENT: indwelling catheter Extremities exam: PRESENT: other - Diffuse left-sided weakness Musculoskeletal exam: PRESENT: other - Diffuse left-sided weakness Neurological exam: PRESENT: awake Psychiatric exam: PRESENT: flat affect Skin exam: PRESENT: dry, warm Results Laboratory Results: 03/22/17 05:26 03/23/17 06:45 03/23/17 06:45 Sodium 144.4 Potassium 3.9 Chloride 106 Carbon Dioxide 28 Anion Gap 10 BUN 74 H Creatinine 2.72 H Est GFR ( Amer) 29 L Est GFR (Non-Af Amer) 24 L Glucose 133 H Calcium 8.7 03/19/17 03/19/17 03/19/17 12:10 12:10 12:10 Creatine Kinase 38 L CK-MB (CK-2) 6.26 H Troponin I 0.103 NT-Pro-B Natriuret Pep 03/19/17 03/19/17 03/20/17 18:40 18:40 00:45 Creatine Kinase 49 L 44 L CK-MB (CK-2) 7.97 H Troponin I 0.091 NT-Pro-B Natriuret Pep 03/20/17 03/20/17 03/21/17 00:45 06:45 05:58 Creatine Kinase CK-MB (CK-2) 6.57 H Troponin I 0.106 NT-Pro-B Natriuret Pep 79984 H 48453 H 03/22/17 06:04 Creatine Kinase CK-MB (CK-2) Troponin I NT-Pro-B Natriuret Pep 92657 H Impressions: Chest X-Ray 03/23/17 00:00 IMPRESSION: Mild fluid overload or congestive failure Assessment & Plan - Diagnosis (1) Acute exacerbation of CHF (congestive heart failure) Qualifiers: Congestive heart failure type: combined Qualified Code(s): I50.43 - Acute on chronic combined systolic (congestive) and diastolic (congestive) heart failure Is this a current diagnosis for this admission?: YesPlan: Improving abnormalities on Cardiolite stress test noted (2) Chronic kidney disease, stage IV (severe) Is this a current diagnosis for this admission?: YesPlan: Labs- All tests 24 hr 03/19/17 03/20/17 03/21/17 08:10 06:45 05:58 BUN 81 H 75 H 76 H Creatinine 2.96 H 2.81 H 2.71 H 03/22/17 03/23/17 05:26 06:45 BUN 73 H 74 H Creatinine 2.96 H 2.72 H (3) Cough Is this a current diagnosis for this admission?: YesPlan: He denies significant cough in the last 48 hours (4) Upper respiratory infection, acute Is this a current diagnosis for this admission?: YesPlan: Improving
[2017-03-23] MEDS: CITRIC ACID/SODIUM CITRATE ORAL SOLN 15 ML UDCUP PO SCH ×3 (14:44→19:31)
[2017-03-23] MEDS: FOLIC ACID/VITAMIN B COMP W-C CAPSULE PO SCH (18:10)
[2017-03-23] MEDS: TACROLIMUS ANHYDROUS 1 MG CAPSULE PO SCH (19:20)
--- NOTE | 2017-03-23 19:37 | PDOC PROGRESS REPORT ---
Subjective Progress Note for:: 03/23/17 Subjective:: Patient seems to be doing better. Patient is comfortable without any chest pain or shortness of breath.. Pt is denying any chest arm or neck discomfort. Patient denying any PND, orthopnea. Patient denied any sustained palpitations, dizziness, syncope, near syncope. Patient denying any other significant discomfort. Patient claims he is bedbound and also wheelchair bound. Patient has difficulty with transportation. Elevation preferred to have nuclear stress test done as an inpatient. Nuclear stress test procedure was explained to the patient in detail. Risks benefits were discussed and informed consent was obtained. Alternatives were discussed. Patient informed that based on risk factors, physical exam, lab data findings and symptoms there is at least intermediate probability of underlying CAD. Nuclear stress test procedure was therefore scheduled. Patient is maintaining sinus rhythm. Blood pressure has been more stable. He is much less short of breath. Review of systems: Rest review of systems negative. Medications: Medications have been reviewed. Physical Exam Vital Signs: Temp Pulse Resp BP Pulse Ox 98.5 F 83 18 179/69 H 97 03/23/17 16:39 03/23/17 16:39 03/23/17 16:39 03/23/17 16:39 03/23/17 16:39 Pulse Oximeter Continuous Start: 03/20/17 09: 52 Freq: RTQ4 Status: Active Document 03/23/17 12:00 [facility] (Rec: 03/23/17 12:44 [facility] [email or web address]) Pulse Oximetry Assessment Oxygen Saturation (92-100) 98 Oxygen Flow Rate (L/min) 2 Oxygen Delivery Method Nasal Cannula Equipment Usage Equipment in Use Continuous SpO2 Machine # 10 Intake & Output 03/22/17 03/23/17 03/24/17 06:59 06:59 06:59 Intake Total 1350 950 528 Output Total 3516 728 8864 Balance -450 200 -847 Weight 74.7 kg 74.2 kg Exam: GENERAL: well-nourished and in no acute distress. Alert and oriented x3 HEAD: Atraumatic, normocephalic. EYES: Pupils equal round and reactive to light, extraocular movements intact, sclera anicteric, conjunctiva are normal. ENT: TMs normal, nares patent, oropharynx clear without exudates. Moist mucous membranes. No oral ulcerations or bleeding gums noted NECK: supple without lymphadenopathy. Trachea is central. No cervical or axillary lymphadenopathy noted. Carotids are 2+, JVD WNL LUNGS: Respiration seems nonlabored, no significant accessory muscle action noted. Right basal crackles and mild dullness noted. CHEST: Palpation of the chest wall shows no significant chest wall tenderness. No other significant abnormalities noted. 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 ABDOMEN: Soft, no significant tenderness appreciated, normoactive bowel sounds. No guarding, no rebound. No rigidity noted . No masses appreciated. EXTREMITIES: Pedal pulses are 1-2+, no calf tenderness noted. No clubbing or cyanosis.1+ pedal edema noted NEUROLOGICAL: Focused neurological exam showed paresis both upper and and lower extremity. Lower extremity weakness much more marked than upper extremity weakness. Normal speech. PSYCH: Normal mood, normal affect. Judgment and insight within normal limits. SKIN: No significant ecchymosis, rash, ulcerations or signs of pruritus noted. MUSCULOSKELETAL EXAM: No significant joint swelling noted. Results Laboratory Results: 03/22/17 05:26 03/23/17 06:45 03/23/17 06:45 Sodium 144.4 Potassium 3.9 Chloride 106 Carbon Dioxide 28 Anion Gap 10 BUN 74 H Creatinine 2.72 H Est GFR ( Amer) 29 L Est GFR (Non-Af Amer) 24 L Glucose 133 H Calcium 8.7 03/19/17 03/19/17 03/19/17 12:10 12:10 12:10 Creatine Kinase 38 L CK-MB (CK-2) 6.26 H Troponin I 0.103 NT-Pro-B Natriuret Pep 03/19/17 03/19/17 03/20/17 18:40 18:40 00:45 Creatine Kinase 49 L 44 L CK-MB (CK-2) 7.97 H Troponin I 0.091 NT-Pro-B Natriuret Pep 03/20/17 03/20/17 03/21/17 00:45 06:45 05:58 Creatine Kinase CK-MB (CK-2) 6.57 H Troponin I 0.106 NT-Pro-B Natriuret Pep 80311 H 53298 H 03/22/17 06:04 Creatine Kinase CK-MB (CK-2) Troponin I NT-Pro-B [place] Pep 20489 H Impressions: Chest X-Ray 03/23/17 00:00 IMPRESSION: Mild fluid overload or congestive failure Assessment & Plan - Diagnosis (1) Elevated troponin I level Is this a current diagnosis for this admission?: Yes (2) Accelerated hypertension Is this a current diagnosis for this admission?: Yes (3) Acute exacerbation of CHF (congestive heart failure) Qualifiers: Congestive heart failure type: combined Qualified Code(s): I50.43 - Acute on chronic combined systolic (congestive) and diastolic (congestive) heart failure Is this a current diagnosis for this admission?: Yes (4) Chronic kidney disease, stage IV (severe) Is this a current diagnosis for this admission?: Yes (5) Diabetes mellitus, type II Qualifiers: Diabetes mellitus complication status: with unspecified complications Diabetes mellitus penitentiary insulin use: without latex ribbon machine operator use Qualified Code(s): E11.8 - Type 2 diabetes mellitus with unspecified complications; Z79.4 - [facility] (current) use of insulin Is this a current diagnosis for this admission?: Yes (6) Sleep apnea syndrome Qualifiers: Sleep apnea type: unspecified type Qualified Code(s): G47.30 - Sleep apnea, unspecified Is this a current diagnosis for this admission?: Yes - Notes Notes: Elevated troponin I: This is related to CHF, severe hypertension, pneumonia. Patient asymptomatic of any chest pain or any significant EKG changes. I discussed this with the patient. In view of patient having diabetes, history of neuropathy, it is possible that he could be having silent ischemia. Nuclear stress test showed mainly a fixed defect without any evidence of ischemia. Total area of fixed defect is small including inferoapex and small area of apex of the left ventricle. Will recommend medical management. Accelerated hypertension: BP still intermittently elevated.. Have added Norvasc to patient's regimen. This is under better control and patient tolerating Norvasc therapy. CHF: This is compensated by clinical exam. Continue current diuretic therapy. Chronic kidney disease in transplanted kidney: Patient being followed by silo operator. Diabetes: Reasonably well controlled. Sleep apnea syndrome: Patient claims compliance with CPAP therapy now. Nuclear stress test results were discussed. Patient noted to have no significant areas of ischemia. Fixed defect noted. Medical management discussed. Patient has been generally stable from cardiac standpoint. We will sign off. Please reconsult if needed. - Time Time with patient: 15-25 minutes
[2017-03-23] MEDS: INSULIN GLARGINE,HUM.REC.ANLOG 1,000 UNIT/10 ML UNIT SUBCUT SCH (21:38)
[2017-03-23] MEDS: ATORVASTATIN CALCIUM 10 MG TABLET PO SCH (21:39)
[2017-03-23] MEDS: INSULIN LISPRO 100 UNIT/ML 3 ML VIAL SUBCUT PRN (21:46)
[2017-03-24] MEDS: HYDRALAZINE HCL INJ/PF 20 MG/1 ML SDV IV PRN (04:37)
[2017-03-24 05:21] LABS: ABSOLUTE EOSINOPHILS # (AUTO) 0.1 10^3/uL (0.0-0.6); ABSOLUTE LYMPHOCYTES (AUTO) 3.4 10^3/uL (0.5-4.7); ABSOLUTE MONOCYTES (AUTO) 0.6 10^3/uL (0.1-1.4); ABSOLUTE NEUT (AUTO) 5.1 10^3/uL (1.7-8.2); BASOPHILS % (AUTO) 0.4 % (0-2); EOSINOPHILS % (AUTO) 1.1 % (0-6); HEMATOCRIT 29.3 % (37.9-51.0); HEMOGLOBIN 9.6 g/dL (13.5-17.0); HGB HCT DIFFERENCE -0.5; MEAN CORPUSCULAR HEMOGLOBIN 29.8 pg (27.0-33.4); MEAN CORPUSCULAR HGB CONC 32.8 g/dL (32.0-36.0); MEAN CORPUSCULAR VOLUME 91 fl (80-97); MONOCYTES % (AUTO) 6.3 % (3-13); RED BLOOD COUNT 3.22 10^6/uL (4.35-5.55); RED CELL DISTRIBUTION WIDTH 16.4 % (11.5-14.0); SEGMENTED NEUTROPHILS % (AUTO) 55.2 % (42-78); WHITE BLOOD COUNT 9.2 10^3/uL (4.0-10.5)
[2017-03-24 05:23] LABS: ANION GAP 12 (5-19); BLOOD UREA NITROGEN 75 mg/dL (7-20); CALCIUM 8.6 mg/dL (8.4-10.2); CARBON DIOXIDE 29 mmol/L (22-30); CHLORIDE 106 mmol/L (98-107); CREATININE RESULT 2.67 mg/dL (0.52-1.25); GLUCOSE 120 mg/dL (75-110); POTASSIUM 4.1 mmol/L (3.6-5.0); SODIUM 146.5 mmol/L (137-145)
[2017-03-24] MEDS: HYDRALAZINE HCL 50 MG TABLET PO SCH ×3 (06:34→22:24)
[2017-03-24] MEDS: FUROSEMIDE INJ/PF 20 MG/2 ML SDV IV SCH ×3 (06:34→22:24)
[2017-03-24] MEDS: TACROLIMUS ANHYDROUS 1 MG CAPSULE PO SCH ×2 (06:35→19:55)
[2017-03-24] MEDS: IPRATROPIUM/ALBUTEROL 0.5-2.5 MG/3 ML AMPUL NEB SCH ×3 (08:25→20:04)
[2017-03-24] MEDS: PREDNISONE 5 MG TABLET PO SCH (08:40)
[2017-03-24] MEDS: FERROUS SULFATE 325 MG TABLET PO SCH ×2 (08:40→17:16)
[2017-03-24] MEDS: ISOSORBIDE MONONITRATE 30 MG TAB.ER.24H PO SCH (08:40)
[2017-03-24] MEDS: INSULIN LISPRO 100 UNIT/ML 3 ML VIAL SUBCUT SCH ×3 (08:40→17:44)
[2017-03-24] MEDS: ENOXAPARIN SODIUM INJ 30 MG/0.3 ML DISP.SYRIN SUBCUT SCH (08:41)
[2017-03-24] MEDS: ASCORBIC ACID 500 MG TABLET PO SCH (08:43)
[2017-03-24] MEDS: AMLODIPINE BESYLATE 2.5 MG TABLET PO SCH (10:58)
[2017-03-24] MEDS: TAMSULOSIN HCL 0.4 MG CAP.SR.24H PO SCH (10:58)
[2017-03-24] MEDS: CEFEPIME 1 GM/D5W RTU 1 GM/50 ML RTUPB IV SCH (10:59)
[2017-03-24] MEDS: METOPROLOL TARTRATE 50 MG TABLET PO SCH ×2 (10:59→22:25)
[2017-03-24] MEDS: CLONAZEPAM 1 MG TABLET PO SCH ×2 (10:59→22:25)
[2017-03-24] MEDS: CITRIC ACID/SODIUM CITRATE ORAL SOLN 15 ML UDCUP PO SCH ×3 (10:59→17:16)
[2017-03-24] MEDS: LANSOPRAZOLE 15 MG TAB.RAP.DR PO SCH (10:59)
[2017-03-24] MEDS: DOCUSATE SODIUM 100 MG CAPSULE PO SCH ×2 (11:00→17:15)
[2017-03-24] MEDS: MUPIROCIN 2% OINTMENT 22 GM TOP SCH ×2 (11:15→17:17)
--- NOTE | 2017-03-24 15:24 | PDOC PROGRESS REPORT ---
Subjective Progress Note for:: 03/24/17 Subjective:: Maybe a little better Physical Exam Vital Signs: Temp Pulse Resp BP Pulse Ox 98.6 F 82 16 177/67 H 98 03/24/17 12:00 03/24/17 13:21 03/24/17 13:21 03/24/17 12:00 03/24/17 13:21 Pulse Oximeter Continuous Start: 03/20/17 09: 52 Freq: RTQ4 Status: Active Document 03/24/17 11:44 LDA (Rec: 03/24/17 11:44 LDA [email or web address]) Pulse Oximetry Assessment Oxygen Saturation (92-100) 98 Oxygen Delivery Method Room Air Fraction of Inspired Oxygen (FIO2) 21 Equipment Usage Equipment in Use Continuous SpO2 Machine # 10 Intake & Output 03/23/17 03/24/17 03/25/17 06:59 06:59 06:59 Intake Total 950 680 Output Total 750 2325 Balance 200 -1645 Weight 74.2 kg 73.1 kg General appearance: PRESENT: no acute distress, disheveled, obese, well- developed Head exam: PRESENT: atraumatic, normocephalic Eye exam: PRESENT: conjunctiva pale, EOMI Mouth exam: PRESENT: moist, neck supple Neck exam: ABSENT: carotid bruit, JVD, lymphadenopathy, thyromegaly Respiratory exam: PRESENT: decreased breath sounds, prolonged expiratory phas, rhonchi, symmetrical Cardiovascular exam: PRESENT: RRR, +S1, +S2 Pulses: PRESENT: normal radial pulses GI/Abdominal exam: PRESENT: normal bowel sounds, soft. ABSENT: distended, guarding, mass, organolmegaly, rebound, tenderness Rectal exam: PRESENT: deferred Gentrourinary exam: PRESENT: indwelling catheter Musculoskeletal exam: PRESENT: normal inspection Neurological exam: PRESENT: alert, awake Psychiatric exam: PRESENT: normal mood Skin exam: PRESENT: dry, vesicles Results Laboratory Results: 03/24/17 04:45 03/24/17 04:45 03/24/17 03/24/17 04:45 04:45 WBC 9.2 RBC 3.22 L Hgb 9.6 L Hct 29.3 L MCV 91 MCH 29.8 MCHC 32.8 RDW 16.4 H Plt Count 204 Seg Neutrophils % 55.2 Lymphocytes % 37.0 Monocytes % 6.3 Eosinophils % 1.1 Basophils % 0.4 Absolute Neutrophils 5.1 Absolute Lymphocytes 3.4 Absolute Monocytes 0.6 Absolute Eosinophils 0.1 Absolute Basophils 0.0 Sodium 146.5 H Potassium 4.1 Chloride 106 Carbon Dioxide 29 Anion Gap 12 BUN 75 H Creatinine 2.67 H Est GFR ( Amer) 30 L Est GFR (Non-Af Amer) 24 L Glucose 120 H Calcium 8.6 03/19/17 03/19/17 03/19/17 12:10 12:10 12:10 Creatine Kinase 38 L CK-MB (CK-2) 6.26 H Troponin I 0.103 NT-Pro-B Natriuret Pep 03/19/17 03/19/17 03/20/17 18:40 18:40 00:45 Creatine Kinase 49 L 44 L CK-MB (CK-2) 7.97 H Troponin I 0.091 NT-Pro-B Natriuret Pep 03/20/17 03/20/17 03/21/17 00:45 06:45 05:58 Creatine Kinase CK-MB (CK-2) 6.57 H Troponin I 0.106 NT-Pro-B Natriuret Pep 01912 H 72149 H 03/22/17 06:04 Creatine Kinase CK-MB (CK-2) Troponin I NT-Pro-B Natriuret Pep 08110 H Impressions: Chest X-Ray 03/23/17 00:00 IMPRESSION: Mild fluid overload or congestive failure Assessment & Plan - Diagnosis (1) Acute exacerbation of CHF (congestive heart failure) Qualifiers: Congestive heart failure type: combined Qualified Code(s): I50.43 - Acute on chronic combined systolic (congestive) and diastolic (congestive) heart failure Is this a current diagnosis for this admission?: Yes (2) Chronic kidney disease, stage IV (severe) Is this a current diagnosis for this admission?: Yes (3) Cough Is this a current diagnosis for this admission?: Yes (4) Upper respiratory infection, acute Is this a current diagnosis for this admission?: Yes
--- NOTE | 2017-03-24 16:04 | PDOC PROGRESS REPORT ---
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 Patient's denied any chest pain denied any shortness of the breath and no fever. Patient also cultures so far negative Physical Exam Vital Signs: Temp Pulse Resp BP Pulse Ox 98.6 F 82 16 177/67 H 98 03/24/17 12:00 03/24/17 13:21 03/24/17 13:21 03/24/17 12:00 03/24/17 13:21 Pulse Oximeter Continuous Start: 03/20/17 09: 52 Freq: RTQ4 Status: Active Document 03/24/17 11:44 LDA (Rec: 03/24/17 11:44 LDA [email or web address]) Pulse Oximetry Assessment Oxygen Saturation (92-100) 98 Oxygen Delivery Method Room Air Fraction of Inspired Oxygen (FIO2) 21 Equipment Usage Equipment in Use Continuous SpO2 Machine # 10 Intake & Output 03/23/17 03/24/17 03/25/17 06:59 06:59 06:59 Intake Total 950 680 Output Total 750 2325 Balance 200 -1645 Weight 74.2 kg 73.1 kg General appearance: PRESENT: no acute distress, well-developed, well-nourished Head exam: PRESENT: atraumatic, normocephalic Eye exam: PRESENT: conjunctiva pink, EOMI, PERRLA. ABSENT: scleral icterus Ear exam: PRESENT: normal external ear exam Mouth exam: PRESENT: moist, tongue midline Neck exam: PRESENT: full ROM. ABSENT: carotid bruit, JVD, lymphadenopathy, thyromegaly Respiratory exam: PRESENT: clear to auscultation jolie Cardiovascular exam: PRESENT: RRR. ABSENT: diastolic murmur, rubs, systolic murmur Pulses: PRESENT: normal dorsalis pedis pul, +2 pedal pulses bilateral Vascular exam: PRESENT: normal capillary refill GI/Abdominal exam: PRESENT: normal bowel sounds, soft. ABSENT: distended, guarding, mass, organolmegaly, rebound, tenderness Rectal exam: PRESENT: deferred Neurological exam: PRESENT: alert, awake, oriented to person, oriented to place , oriented to time, oriented to situation Psychiatric exam: PRESENT: appropriate affect, normal mood. ABSENT: homicidal ideation, suicidal ideation Skin exam: PRESENT: dry, intact, warm. ABSENT: cyanosis, rash Results Laboratory Results: 03/24/17 04:45 03/24/17 04:45 03/24/17 03/24/17 04:45 04:45 WBC 9.2 RBC 3.22 L Hgb 9.6 L Hct 29.3 L MCV 91 MCH 29.8 MCHC 32.8 RDW 16.4 H Plt Count 204 Seg Neutrophils % 55.2 Lymphocytes % 37.0 Monocytes % 6.3 Eosinophils % 1.1 Basophils % 0.4 Absolute Neutrophils 5.1 Absolute Lymphocytes 3.4 Absolute Monocytes 0.6 Absolute Eosinophils 0.1 Absolute Basophils 0.0 Sodium 146.5 H Potassium 4.1 Chloride 106 Carbon Dioxide 29 Anion Gap 12 BUN 75 H Creatinine 2.67 H Est GFR ( Amer) 30 L Est GFR (Non-Af Amer) 24 L Glucose 120 H Calcium 8.6 03/19/17 03/19/17 03/19/17 12:10 12:10 12:10 Creatine Kinase 38 L CK-MB (CK-2) 6.26 H Troponin I 0.103 NT-Pro-B Natriuret Pep 03/19/17 03/19/17 03/20/17 18:40 18:40 00:45 Creatine Kinase 49 L 44 L CK-MB (CK-2) 7.97 H Troponin I 0.091 NT-Pro-B Natriuret Pep 03/20/17 03/20/17 03/21/17 00:45 06:45 05:58 Creatine Kinase CK-MB (CK-2) 6.57 H Troponin I 0.106 NT-Pro-B Natriuret Pep 03806 H 99120 H 03/22/17 06:04 Creatine Kinase CK-MB (CK-2) Troponin I NT-Pro-B Natriuret Pep 22689 H Impressions: Chest X-Ray 03/23/17 00:00 IMPRESSION: Mild fluid overload or congestive failure Assessment & Plan - Diagnosis (1) Accelerated hypertension Is this a current diagnosis for this admission?: YesPlan: Currently all stable with adjust the medications (2) Acute exacerbation of CHF (congestive heart failure) Qualifiers: Congestive heart failure type: combined Qualified Code(s): I50.43 - Acute on chronic combined systolic (congestive) and diastolic (congestive) heart failure Is this a current diagnosis for this admission?: YesPlan: Currently stable (3) Anemia in chronic kidney disease (CKD) Is this a current diagnosis for this admission?: YesPlan: Currently stable (4) Chronic kidney disease, stage IV (severe) Is this a current diagnosis for this admission?: Yes (5) Diabetes mellitus, type II Qualifiers: Diabetes mellitus complication status: with unspecified complications 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: without superintendent [employer] use Qualified Code(s): E11.8 - Type 2 diabetes mellitus with unspecified complications; Z79.4 - nursing home (current) use of insulin Is this a current diagnosis for this admission?: YesPlan: Stable (6) History of kidney transplant Is this a current diagnosis for this admission?: YesPlan: Patients follow the [facility] (7) UTI (urinary tract infection) Qualifiers: Urinary tract infection type: site unspecified Hematuria presence: without hematuria Qualified Code(s): N39.0 - Urinary tract infection, site not specified Is this a current diagnosis for this admission?: YesPlan: Patient's finished 7 days of the IV antibiotic and I think as per the transplant clinic start the patient on the Bactrim on the discharge - Time Time Spent with patient: 15-24 minutes Medications reviewed and adjusted accordingly: Yes Anticipated discharge: Home Within: within 24 hours - Inpatient Certification Medical Necessity: Need Close Monitoring Due to Risk of Patient Decompensation 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
[2017-03-24] MEDS: FOLIC ACID/VITAMIN B COMP W-C CAPSULE PO SCH (17:16)
[2017-03-24] MEDS: INSULIN LISPRO 100 UNIT/ML 3 ML VIAL SUBCUT PRN (22:24)
[2017-03-24] MEDS: INSULIN GLARGINE,HUM.REC.ANLOG 1,000 UNIT/10 ML UNIT SUBCUT SCH (22:24)
[2017-03-24] MEDS: ATORVASTATIN CALCIUM 10 MG TABLET PO SCH (22:25)
[2017-03-25] MEDS: HYDRALAZINE HCL 50 MG TABLET PO SCH ×3 (05:46→22:06)
[2017-03-25] MEDS: FUROSEMIDE INJ/PF 20 MG/2 ML SDV IV SCH ×3 (05:47→22:07)
[2017-03-25 06:24] LABS: ANION GAP 14 (5-19); BLOOD UREA NITROGEN 74 mg/dL (7-20); CALCIUM 8.8 mg/dL (8.4-10.2); CARBON DIOXIDE 28 mmol/L (22-30); CHLORIDE 104 mmol/L (98-107); CREATININE RESULT 2.91 mg/dL (0.52-1.25); GLUCOSE 139 mg/dL (75-110); SODIUM 145.5 mmol/L (137-145)
[2017-03-25] MEDS: IPRATROPIUM/ALBUTEROL 0.5-2.5 MG/3 ML AMPUL NEB SCH ×3 (08:24→21:00)
[2017-03-25] MEDS: TACROLIMUS ANHYDROUS 1 MG CAPSULE PO SCH ×2 (08:36→20:38)
[2017-03-25] MEDS: ISOSORBIDE MONONITRATE 30 MG TAB.ER.24H PO SCH (08:36)
[2017-03-25] MEDS: PREDNISONE 5 MG TABLET PO SCH (08:36)
[2017-03-25] MEDS: ASCORBIC ACID 500 MG TABLET PO SCH (08:37)
[2017-03-25] MEDS: ENOXAPARIN SODIUM INJ 30 MG/0.3 ML DISP.SYRIN SUBCUT SCH (08:37)
[2017-03-25] MEDS: INSULIN LISPRO 100 UNIT/ML 3 ML VIAL SUBCUT SCH ×3 (08:37→18:40)
[2017-03-25] MEDS: FERROUS SULFATE 325 MG TABLET PO SCH ×2 (08:37→15:03)
[2017-03-25] MEDS: CITRIC ACID/SODIUM CITRATE ORAL SOLN 15 ML UDCUP PO SCH ×3 (10:57→18:08)
[2017-03-25] MEDS: LANSOPRAZOLE 15 MG TAB.RAP.DR PO SCH (10:57)
[2017-03-25] MEDS: CLONAZEPAM 1 MG TABLET PO SCH ×2 (10:57→22:07)
[2017-03-25] MEDS: TAMSULOSIN HCL 0.4 MG CAP.SR.24H PO SCH (10:57)
[2017-03-25] MEDS: MUPIROCIN 2% OINTMENT 22 GM TOP SCH ×2 (10:58→18:09)
[2017-03-25] MEDS: METOPROLOL TARTRATE 50 MG TABLET PO SCH ×2 (10:58→22:07)
[2017-03-25] MEDS: AMLODIPINE BESYLATE 2.5 MG TABLET PO SCH (10:58)
[2017-03-25] MEDS: DOCUSATE SODIUM 100 MG CAPSULE PO SCH ×2 (10:59→18:09)
[2017-03-25] MEDS: CEFEPIME 1 GM/D5W RTU 1 GM/50 ML RTUPB IV SCH (10:59)
--- NOTE | 2017-03-25 11:36 | PDOC PROGRESS REPORT ---
Physical Exam Vital Signs: Temp Pulse Resp BP Pulse Ox 97.5 F 74 19 190/54 H 96 03/25/17 08:00 03/25/17 08:25 03/25/17 08:25 03/25/17 08:00 03/25/17 08:25 Pulse Oximeter Continuous Start: 03/20/17 09: 52 Freq: RTQ4 Status: Active Document 03/25/17 08:25 JDR (Rec: 03/25/17 08:27 JDR [email or web address]) Pulse Oximetry Assessment Equipment Usage Equipment in Use Continuous SpO2 Machine # 10 Intake & Output 03/24/17 03/25/17 03/26/17 06:59 06:59 06:59 Intake Total 680 1062 Output Total 2325 1475 Balance -1645 -413 Weight 73.1 kg 73.3 kg General appearance: PRESENT: no acute distress, cooperative, disheveled Head exam: PRESENT: atraumatic, normocephalic Eye exam: PRESENT: conjunctiva pale, EOMI Mouth exam: PRESENT: dry mucosa, neck supple Neck exam: ABSENT: carotid bruit, JVD, lymphadenopathy, thyromegaly Respiratory exam: PRESENT: decreased breath sounds, prolonged expiratory phas, rhonchi, symmetrical, unlabored, wheezes Cardiovascular exam: PRESENT: RRR, +S1, +S2 Pulses: PRESENT: normal radial pulses GI/Abdominal exam: PRESENT: normal bowel sounds, soft. ABSENT: distended, guarding, mass, organolmegaly, rebound, tenderness Rectal exam: PRESENT: deferred Extremities exam: PRESENT: other - Left-sided weakness and atrophy left upper and lower extremities Neurological exam: PRESENT: alert, awake Psychiatric exam: PRESENT: normal mood Skin exam: PRESENT: dry, warm Results Laboratory Results: 03/24/17 04:45 03/25/17 05:50 03/25/17 05:50 Sodium 145.5 H Potassium 4.0 Chloride 104 Carbon Dioxide 28 Anion Gap 14 BUN 74 H Creatinine 2.91 H Est GFR ( Amer) 27 L Est GFR (Non-Af Amer) 22 L Glucose 139 H Calcium 8.8 03/19/17 03/19/17 03/19/17 12:10 12:10 12:10 Creatine Kinase 38 L CK-MB (CK-2) 6.26 H Troponin I 0.103 NT-Pro-B Natriuret Pep 03/19/17 03/19/17 03/20/17 18:40 18:40 00:45 Creatine Kinase 49 L 44 L CK-MB (CK-2) 7.97 H Troponin I 0.091 NT-Pro-B Natriuret Pep 03/20/17 03/20/17 03/21/17 00:45 06:45 05:58 Creatine Kinase CK-MB (CK-2) 6.57 H Troponin I 0.106 NT-Pro-B Natriuret Pep 84662 H 50292 H 03/22/17 06:04 Creatine Kinase CK-MB (CK-2) Troponin I NT-Pro-B Natriuret Pep 52051 H Impressions: Chest X-Ray 03/23/17 00:00 IMPRESSION: Mild fluid overload or congestive failure Assessment & Plan - Diagnosis (1) Acute exacerbation of CHF (congestive heart failure) Qualifiers: Congestive heart failure type: combined Qualified Code(s): I50.43 - Acute on chronic combined systolic (congestive) and diastolic (congestive) heart failure Is this a current diagnosis for this admission?: Yes (2) Chronic kidney disease, stage IV (severe) Is this a current diagnosis for this admission?: Yes (3) Cough Is this a current diagnosis for this admission?: No (4) Upper respiratory infection, acute Is this a current diagnosis for this admission?: YesPlan: Continues to improve
--- NOTE | 2017-03-25 12:48 | PDOC PROGRESS REPORT ---
Subjective Progress Note for:: 03/25/17 Subjective:: Patient is doing better denied any chest pain denied any shortness of the breath. Patient have a some more loose stools since last night and patient's C. difficile is negative Physical Exam Vital Signs: Temp Pulse Resp BP Pulse Ox 97.5 F 74 19 190/54 H 96 03/25/17 08:00 03/25/17 08:25 03/25/17 08:25 03/25/17 08:00 03/25/17 08:25 Pulse Oximeter Continuous Start: 03/20/17 09: 52 Freq: RTQ4 Status: Active Document 03/25/17 08:25 JDR (Rec: 03/25/17 08:27 JDR [email or web address]) Pulse Oximetry Assessment Equipment Usage Equipment in Use Continuous SpO2 Machine # 10 Intake & Output 03/24/17 03/25/17 03/26/17 06:59 06:59 06:59 Intake Total 680 1062 Output Total 2325 1475 Balance -1645 -413 Weight 73.1 kg 73.3 kg General appearance: PRESENT: no acute distress, well-developed, well-nourished Head exam: PRESENT: atraumatic, normocephalic Eye exam: PRESENT: conjunctiva pink, EOMI, PERRLA. ABSENT: scleral icterus Ear exam: PRESENT: normal external ear exam Mouth exam: PRESENT: moist, tongue midline Neck exam: PRESENT: full ROM. ABSENT: carotid bruit, JVD, lymphadenopathy, thyromegaly Respiratory exam: PRESENT: clear to auscultation jolie Cardiovascular exam: PRESENT: RRR. ABSENT: diastolic murmur, rubs, systolic murmur Pulses: PRESENT: normal dorsalis pedis pul, +2 pedal pulses bilateral Vascular exam: PRESENT: normal capillary refill GI/Abdominal exam: PRESENT: normal bowel sounds, soft. ABSENT: distended, guarding, mass, organolmegaly, rebound, tenderness Rectal exam: PRESENT: deferred Neurological exam: PRESENT: alert, awake, oriented to person, oriented to place , oriented to time, oriented to situation, CN II-XII grossly intact. ABSENT: motor sensory deficit Psychiatric exam: PRESENT: appropriate affect, normal mood. ABSENT: homicidal ideation, suicidal ideation Skin exam: PRESENT: dry, intact, warm. ABSENT: cyanosis, rash Results Laboratory Results: 03/24/17 04:45 03/25/17 05:50 03/25/17 05:50 Sodium 145.5 H Potassium 4.0 Chloride 104 Carbon Dioxide 28 Anion Gap 14 BUN 74 H Creatinine 2.91 H Est GFR ( Amer) 27 L Est GFR (Non-Af Amer) 22 L Glucose 139 H Calcium 8.8 03/19/17 03/19/17 03/19/17 12:10 12:10 12:10 Creatine Kinase 38 L CK-MB (CK-2) 6.26 H Troponin I 0.103 NT-Pro-B Natriuret Pep 03/19/17 03/19/17 03/20/17 18:40 18:40 00:45 Creatine Kinase 49 L 44 L CK-MB (CK-2) 7.97 H Troponin I 0.091 NT-Pro-B Natriuret Pep 03/20/17 03/20/17 03/21/17 00:45 06:45 05:58 Creatine Kinase CK-MB (CK-2) 6.57 H Troponin I 0.106 NT-Pro-B Natriuret Pep 43567 H 33466 H 03/22/17 06:04 Creatine Kinase CK-MB (CK-2) Troponin I NT-Pro-B Natriuret Pep 91548 H Impressions: Chest X-Ray 03/23/17 00:00 IMPRESSION: Mild fluid overload or congestive failure Assessment & Plan - Diagnosis (1) Accelerated hypertension Is this a current diagnosis for this admission?: YesPlan: Currently all stable with adjust the medications (2) Acute exacerbation of CHF (congestive heart failure) Qualifiers: Congestive heart failure type: combined Qualified Code(s): I50.43 - Acute on chronic combined systolic (congestive) and diastolic (congestive) heart failure Is this a current diagnosis for this admission?: YesPlan: Currently stable (3) Anemia in chronic kidney disease (CKD) Is this a current diagnosis for this admission?: YesPlan: Currently stable (4) Chronic kidney disease, stage IV (severe) Is this a current diagnosis for this admission?: YesPlan: Follow with the nephrology currently no need for renal replacement therapy (5) Diabetes mellitus, type II Qualifiers: Diabetes mellitus complication status: with unspecified complications Diabetes mellitus prison insulin use: without prison use Qualified Code(s): E11.8 - Type 2 diabetes mellitus with unspecified complications; Z79.4 - 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 Is this a current diagnosis for this admission?: YesPlan: Stable (6) History of kidney transplant Is this a current diagnosis for this admission?: YesPlan: Patients follow the [facility] transplant center (7) UTI (urinary tract infection) Qualifiers: Urinary tract infection type: site unspecified Hematuria presence: without hematuria Qualified Code(s): N39.0 - Urinary tract infection, site not specified Is this a current diagnosis for this admission?: Yes - Time Time Spent with patient: 15-24 minutes Medications reviewed and adjusted accordingly: Yes Anticipated discharge: Home Within: within 24 hours - Inpatient Certification Medical Necessity: Significant Comorbidiites Make Outpatient Treatment Too Risky 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
[2017-03-25] MEDS: LACTOBACILLUS ACIDOPHILUS 250 MG TAB PO SCH (18:08)
[2017-03-25] MEDS: SULFAMETHOXAZOLE/TRIMETHOPRIM 800-160 MG TABLET PO SCH (18:08)
[2017-03-25] MEDS: FOLIC ACID/VITAMIN B COMP W-C CAPSULE PO SCH (18:09)
[2017-03-25] MEDS: ATORVASTATIN CALCIUM 10 MG TABLET PO SCH (22:06)
[2017-03-25] MEDS: INSULIN GLARGINE,HUM.REC.ANLOG 1,000 UNIT/10 ML UNIT SUBCUT SCH (22:09)
[2017-03-25] MEDS: INSULIN LISPRO 100 UNIT/ML 3 ML VIAL SUBCUT PRN (22:10)
[2017-03-26] MEDS: FUROSEMIDE INJ/PF 20 MG/2 ML SDV IV SCH ×2 (06:22→14:10)
[2017-03-26] MEDS: TACROLIMUS ANHYDROUS 1 MG CAPSULE PO SCH (06:23)
[2017-03-26] MEDS: HYDRALAZINE HCL 50 MG TABLET PO SCH ×2 (06:23→14:09)
[2017-03-26] MEDS: IPRATROPIUM/ALBUTEROL 0.5-2.5 MG/3 ML AMPUL NEB SCH ×2 (08:29→14:28)
[2017-03-26] MEDS: ASCORBIC ACID 500 MG TABLET PO SCH (08:44)
[2017-03-26] MEDS: ISOSORBIDE MONONITRATE 30 MG TAB.ER.24H PO SCH (08:47)
[2017-03-26] MEDS: FERROUS SULFATE 325 MG TABLET PO SCH ×2 (08:47→17:14)
[2017-03-26] MEDS: PREDNISONE 5 MG TABLET PO SCH (08:48)
[2017-03-26] MEDS: ENOXAPARIN SODIUM INJ 30 MG/0.3 ML DISP.SYRIN SUBCUT SCH (08:48)
[2017-03-26] MEDS: INSULIN LISPRO 100 UNIT/ML 3 ML VIAL SUBCUT SCH ×3 (08:57→17:13)
[2017-03-26] MEDS: SULFAMETHOXAZOLE/TRIMETHOPRIM 800-160 MG TABLET PO SCH ×2 (11:09→17:11)
[2017-03-26] MEDS: METOPROLOL TARTRATE 50 MG TABLET PO SCH (11:09)
[2017-03-26] MEDS: LANSOPRAZOLE 15 MG TAB.RAP.DR PO SCH (11:09)
[2017-03-26] MEDS: CLONAZEPAM 1 MG TABLET PO SCH (11:10)
[2017-03-26] MEDS: CITRIC ACID/SODIUM CITRATE ORAL SOLN 15 ML UDCUP PO SCH ×3 (11:10→17:14)
[2017-03-26] MEDS: AMLODIPINE BESYLATE 2.5 MG TABLET PO SCH (11:10)
[2017-03-26] MEDS: LACTOBACILLUS ACIDOPHILUS 250 MG TAB PO SCH ×2 (11:10→17:12)
[2017-03-26] MEDS: MUPIROCIN 2% OINTMENT 22 GM TOP SCH ×2 (11:11→17:13)
[2017-03-26] MEDS: DOCUSATE SODIUM 100 MG CAPSULE PO SCH ×2 (11:11→17:14)
[2017-03-26] MEDS: TAMSULOSIN HCL 0.4 MG CAP.SR.24H PO SCH (11:11)
--- NOTE | 2017-03-26 11:47 | PDOC PROGRESS REPORT ---
Subjective Progress Note for:: 03/26/17 Subjective:: Slight increase in production of yellow phlegm patient otherwise stable and without complaints Physical Exam Vital Signs: Temp Pulse Resp BP Pulse Ox 97.8 F 82 18 154/75 H 99 03/26/17 07:37 03/26/17 08:31 03/26/17 08:33 03/26/17 07:37 03/26/17 08:31 Pulse Oximeter Continuous Start: 03/20/17 09: 52 Freq: RTQ4 Status: Active Document 03/26/17 04:00 SFL (Rec: 03/26/17 05:36 SFL [email or web address]) Pulse Oximetry Assessment Equipment Usage Equipment Standby Continuous SpO2 Machine # 10 Intake & Output 03/25/17 03/26/17 03/27/17 06:59 06:59 06:59 Intake Total 1062 1377 Output Total 1475 1350 Balance -413 27 Weight 73.3 kg 73 kg General appearance: PRESENT: no acute distress, cooperative, disheveled, well- nourished Head exam: PRESENT: atraumatic, normocephalic Eye exam: PRESENT: conjunctiva pale, EOMI Mouth exam: PRESENT: dry mucosa, neck supple Neck exam: PRESENT: carotid bruit Respiratory exam: PRESENT: decreased breath sounds, prolonged expiratory phas, rales, rhonchi, symmetrical, unlabored Cardiovascular exam: PRESENT: RRR, +S1, +S2 GI/Abdominal exam: PRESENT: normal bowel sounds, soft. ABSENT: distended, guarding, mass, organolmegaly, rebound, tenderness Rectal exam: PRESENT: deferred Gentrourinary exam: PRESENT: indwelling catheter Extremities exam: PRESENT: other - Left upper and lower extremity flaccid with atrophic musculature Neurological exam: PRESENT: alert, awake Psychiatric exam: PRESENT: normal mood Skin exam: PRESENT: dry, warm Results Laboratory Results: 03/24/17 04:45 03/25/17 05:50 03/19/17 03/19/17 03/19/17 12:10 12:10 12:10 Creatine Kinase 38 L CK-MB (CK-2) 6.26 H Troponin I 0.103 NT-Pro-B Natriuret Pep 03/19/17 03/19/17 03/20/17 18:40 18:40 00:45 Creatine Kinase 49 L 44 L CK-MB (CK-2) 7.97 H Troponin I 0.091 NT-Pro-B Natriuret Pep 03/20/17 03/20/17 03/21/17 00:45 06:45 05:58 Creatine Kinase CK-MB (CK-2) 6.57 H Troponin I 0.106 NT-Pro-B Natriuret Pep 38143 H 42302 H 03/22/17 06:04 Creatine Kinase CK-MB (CK-2) Troponin I NT-Pro-B Natriuret Pep 23159 H Impressions: Chest X-Ray 03/23/17 00:00 IMPRESSION: Mild fluid overload or congestive failure Assessment & Plan - Diagnosis (1) Acute exacerbation of CHF (congestive heart failure) Qualifiers: Congestive heart failure type: combined Qualified Code(s): I50.43 - Acute on chronic combined systolic (congestive) and diastolic (congestive) heart failure Is this a current diagnosis for this admission?: No (2) Chronic kidney disease, stage IV (severe) Is this a current diagnosis for this admission?: Yes (3) Cough Is this a current diagnosis for this admission?: NoPlan: Improving (4) Upper respiratory infection, acute Is this a current diagnosis for this admission?: YesPlan: Improving
--- NOTE | 2017-03-26 15:22 | PDOC DISCHARGE SUMMARY ---
General - Admit/Disc Date/PCP Admission Date/Primary Care Provider: 03/19/17 11:22 KEEGAN MONTENEGRO MD Discharge Date: 03/26/17 - Discharge Diagnosis (1) Accelerated hypertension Is this a current diagnosis for this admission?: YesSummary: Currently all resolved (2) Acute exacerbation of CHF (congestive heart failure) Is this a current diagnosis for this admission?: NoSummary: Currently all stable with the diastolic dysfunctions and continues the Bumex 0.5 mg (3) Anemia in chronic kidney disease (CKD) Is this a current diagnosis for this admission?: YesSummary: Currently stable (4) Chronic kidney disease, stage IV (severe) Is this a current diagnosis for this admission?: YesSummary: Stable patients follow with the nephrology in [place] under the transplant center (5) Diabetes mellitus, type II Is this a current diagnosis for this admission?: YesSummary: Continues to current medications (6) History of kidney transplant Is this a current diagnosis for this admission?: YesSummary: Follow the transplant center the [place] (7) UTI (urinary tract infection) Is this a current diagnosis for this admission?: YesSummary: Patient's finished a 7 days course of IV antibiotic and start the patient on the Bactrim as per the suggest from transplant centers - Additional Information Resuscitation Status: Full Code Discharge Activity: Activity As Tolerated Home Medications: Ascorbic Acid [Vitamin C] 250 mg PO QAM 03/19/17 Atorvastatin Calcium [Lipitor 10 mg Tablet] 10 mg PO QHS 03/19/17 B Complex & C No.20/Folic Acid [Nephrocaps Softgel] 1 cap PO WSUPPER 03/19/17 Bumetanide [Bumex 0.5 mg Tablet] 0.5 mg PO QAM 03/19/17 Citric Acid/Sodium Citrate [Shohl's Modified Solution] 30 ml PO TID 03/19/17 Clonazepam [Klonopin] 0.25 mg PO BID 03/19/17 Ergocalciferol (Vitamin D2) [Drisdol 50,000 unit (1.25MG) Capsule] 50,000 units PO WE@1000 03/19/17 Ferrous Sulfate [Feosol 325 mg Tablet] 325 mg PO BIDACBS 03/19/17 Insulin Glargine,Hum.rec.anlog [Lantus Insulin 100 Unit/1 ml 10 ml] 3 units SUBCUT QHS 03/19/17 Insulin Lispro [Humalog Insulin (Lispro) 100 unit/mL] 4 units SUBCUT MEALS 03/19 Isosorbide Mononitrate [Isosorbide Mononitrate ER] 30 mg PO QAM 03/19/17 Metoprolol Tartrate [Lopressor 50 mg Tablet] 50 mg PO Q12 03/19/17 Mupirocin 1 applic TOP BID 03/19/17 Nitroglycerin [Nitrostat] 0.4 mg SL Q5MP PRN 03/19/17 Omeprazole 20 mg PO DAILY 03/19/17 Prednisone [Deltasone 5 mg Tablet] 12.5 mg PO [id number] 03/19/17 Tamsulosin HCl [Flomax] 0.4 mg PO DAILY 03/19/17 Hydralazine HCl [Apresoline 50 mg Tablet] 50 mg PO Q8 #90 tablet 03/25/17 Sulfamethoxazole/Trimethoprim [Septra-Ds 800-160 mg Tablet] 1 tab PO BID #14 tablet 03/25/17 History of Present Illness History of Present Illness: KATHRYN HURLEY is a 61 year old male This is a 61-year-old male discharged from the [place] from the urinary tract infections came to the emergency department here with elevated blood pressures in the shortness of the breath and patient was admitting in the IMCU for the further evaluations and a possible pneumonia heart failure and a urinary tract infections Hospital Course Hospital Course: This is a 61-year-old male with a significant medical histories with the renal transplant diastolic congestive heart failure coronary artery disease 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 Patient's came in the same day from the discharge to the [facility] for the elevated blood pressures about 200 and his shortness of the breath and found the possible pneumonia congestive heart failure and the sepsis. Patient was admitting in the IMCU start the patient on IV cefepime and the doctor Curseen the pulmonary was consulted and also Dr. Linda the nephrology was consulted and also Dr. Lazo was consulted to. Patient underwent for the Cardiolite stress test was all negative Patient's chest x-ray is also improving for possible pneumonia and bronchitis Patient's all culture is stable Patient's otherwise is back to the baseline and the kidney function was also stable. Discussed with the very extensively regarding the patient's current conditions and all the test results and other coordinate care with other physicians and patient's discharge home with the stable conditions Patient was giving the hydralazine with increased dose and was giving the Bactrim DS 1 tablet twice a day Patients follow in office in 1 week and repeat the CBC and Chem-7 and a chest x- ray in 1 week Patients follow with the transplant clinic Patient also follow with the [facility] about the removal of the IJ catheter Physical Exam Vital Signs: Temp Pulse Resp BP Pulse Ox 98.1 F 70 18 143/61 H 99 03/26/17 11:35 03/26/17 11:35 03/26/17 11:35 03/26/17 11:35 03/26/17 11:35 Pulse Oximeter Continuous Start: 03/20/17 09: 52 Freq: RTQ4 Status: Active Document 03/26/17 12:00 LDA (Rec: 03/26/17 12:21 LDA [email or web address]) Pulse Oximetry Assessment Equipment Usage Equipment Standby Continuous SpO2 Machine # 10 Intake & Output 03/25/17 03/26/17 03/27/17 06:59 06:59 06:59 Intake Total 1062 1377 417 Output Total 1475 1350 425 Balance -413 27 -8 Weight 73.3 kg 73 kg General appearance: PRESENT: no acute distress, well-developed, well-nourished Head exam: PRESENT: atraumatic, normocephalic Eye exam: PRESENT: conjunctiva pink, EOMI, PERRLA. ABSENT: scleral icterus Ear exam: PRESENT: normal external ear exam Mouth exam: PRESENT: moist, tongue midline Neck exam: PRESENT: full ROM. ABSENT: carotid bruit, JVD, lymphadenopathy, thyromegaly Respiratory exam: PRESENT: clear to auscultation jolie Cardiovascular exam: PRESENT: RRR. ABSENT: diastolic murmur, rubs, systolic murmur Pulses: PRESENT: normal dorsalis pedis pul, +2 pedal pulses bilateral Vascular exam: PRESENT: normal capillary refill GI/Abdominal exam: PRESENT: normal bowel sounds, soft. ABSENT: distended, guarding, mass, organolmegaly, rebound, tenderness Rectal exam: PRESENT: deferred Neurological exam: PRESENT: alert, awake, oriented to person, oriented to place Psychiatric exam: PRESENT: appropriate affect, normal mood. ABSENT: homicidal ideation, suicidal ideation Skin exam: PRESENT: dry, intact, warm. ABSENT: cyanosis, rash Results Laboratory Results: 03/24/17 04:45 03/25/17 05:50 03/19/17 03/19/17 03/19/17 12:10 12:10 12:10 Creatine Kinase 38 L CK-MB (CK-2) 6.26 H Troponin I 0.103 NT-Pro-B Natriuret Pep 03/19/17 03/19/17 03/20/17 18:40 18:40 00:45 Creatine Kinase 49 L 44 L CK-MB (CK-2) 7.97 H Troponin I 0.091 NT-Pro-B Natriuret Pep 03/20/17 03/20/17 03/21/17 00:45 06:45 05:58 Creatine Kinase CK-MB (CK-2) 6.57 H Troponin I 0.106 NT-Pro-B Natriuret Pep 68142 H 87911 H 03/22/17 06:04 Creatine Kinase CK-MB (CK-2) Troponin I NT-Pro-B Natriuret Pep 86890 H Impressions: Chest X-Ray 03/23/17 00:00 IMPRESSION: Mild fluid overload or congestive failure Plan Time Spent: Greater than 30 Minutes - Discussed with the patient and the about the all the test reports and patients to have echocardiogram Cardiolite stress test and all the blood culture urine culture and MRSA culture and is all negative. Patient was also put on the p.o. antibiotic on discharge Follow at [facility] Follow with the nephrology Following office in 1 week and will repeat the CBC Chem-7 and chest x-ray Discussed with the about any increasing any fever any chest pain any shortness of the breath needs to follow in the office or go to the ER
[2017-03-26 16:53] VITALS: BP 175/80
== END 2017-03-26 19:51 | disposition home health service (06) | DRG 291 ==
LOC: ER 07:16 → EH 11:22 → 3S 15:51
PROVIDERS: ADMIT Family Medicine; ATTEND Family Medicine
PROC: 5A09457 Assistance with Respiratory Ventilation, 24-96 Consecutive Hours, Continuous Positive Airway Pressure (ICD-10-PCS; principal; 2017-03-19)
DX: I13.0 Hypertensive heart and chronic kidney disease with heart failure and stage 1 through stage 4 chronic kidney disease, or unspecified chronic kidney disease (principal); I50.43 Acute on chronic combined systolic (congestive) and diastolic (congestive) heart failure; J18.9 Pneumonia, unspecified organism; L89.523 Pressure ulcer of left ankle, stage 3; T86.11 Kidney transplant rejection; J44.0 Chronic obstructive pulmonary disease with (acute) lower respiratory infection; N18.4 Chronic kidney disease, stage 4 (severe); G82.20 Paraplegia, unspecified; N39.0 Urinary tract infection, site not specified; J06.9 Acute upper respiratory infection, unspecified; I16.0 Hypertensive urgency; E11.22 Type 2 diabetes mellitus with diabetic chronic kidney disease; E11.21 Type 2 diabetes mellitus with diabetic nephropathy; D63.1 Anemia in chronic kidney disease; G47.33 Obstructive sleep apnea (adult) (pediatric); R33.9 Retention of urine, unspecified; I25.10 Atherosclerotic heart disease of native coronary artery without angina pectoris; D50.9 Iron deficiency anemia, unspecified; R79.89 Other specified abnormal findings of blood chemistry; Z87.891 Personal history of nicotine dependence; Z79.4 Long term (current) use of insulin; I25.2 Old myocardial infarction; E78.5 Hyperlipidemia, unspecified; G65.0 Sequelae of Guillain-Barre syndrome; Z95.1 Presence of aortocoronary bypass graft; Z82.49 Family history of ischemic heart disease and other diseases of the circulatory system; Z83.3 Family history of diabetes mellitus; Z99.3 Dependence on wheelchair; Z79.899 Other long term (current) drug therapy
CPT/HCPCS: 36415; 36600; 71010; 71020; 78452; 80048; 80053; 80197; 81001; 82550; 82553; 82803; 82962; 83605; 83735; 83880; 84484; 85025; 85610; 87040; 87086; 87493; 93005; 93010; 93017; 93306; 94660; 94762; 96374; 99291; A9500; G8978-GP; G8979-GP; J0280; J0360; J0692; J0696; J1642; J1650; J1815; J1940; J2785; J3490; J7507; J7512; J7620; Q9969

== ENCOUNTER 2017-04-05 01:00 | Emergency (ER) | payer OTHER, MEDICARE ==
--- NOTE | 2017-04-05 01:38 | ER Document Report ---
ED GI/ - General Stated Complaint: BLOOD IN VOMIT Time Seen by Provider: 04/05/17 01:11 Notes: Patient is a 61-year-old male who comes emergency department for chief complaint of an episode of vomiting with what appeared to be a small amount of blood in it. He states it was mainly brown with possibly tinged redness in it. He states that he sat up and vomited once, abdominal pain resolved, symptoms resolved. He has never had a gastrointestinal bleed. He is not on a blood thinner. He denies any trauma. Patient lives at home with his family. Patient has a complicated medical history including Guyon Ventura and decubitus ulcers, recent hospitalization for pneumonia. Patient denies shortness of breath, headache, or any other current symptoms. TRAVEL OUTSIDE OF THE [place] IN LAST 30 DAYS: No - Related Data Allergies/Adverse Reactions: No Known Allergies Allergy (Verified 02/28/15 17:57) Past Medical History - General Information source: Patient, Emergency Med Personnel - Social History Smoking Status: Never Smoker Frequency of alcohol use: None Drug Abuse: None Lives with: Family Family History: CAD, None, Reviewed & Not Pertinent - Past Medical History Cardiac Medical History: Reports: Hx Congestive Heart Failure, Hx Coronary Artery Disease, Hx Heart Attack, Hx Hypercholesterolemia, Hx Hypertension Pulmonary Medical History: Reports: Hx Asthma, Hx COPD, Hx Pneumonia, Hx Intubation, Hx Respiratory Failure, Hx Sleep Apnea - On C Pap Endocrine Medical History: Reports: Hx Diabetes Mellitus Type 1, Hx Diabetes Mellitus Type 2 Renal/ Medical History: Reports: Hx End Stage Renal Disease GI Medical History: Denies: Hx Crohn's Disease, Hx Diverticulitis, Hx Ulcerative Colitis Psychiatric Medical History: Denies: Hx Depression Infectious Medical History: Reports: Hx C-Diff Past Surgical History: Reports: Hx Cardiac Surgery - double bypass, Hx Coronary Artery Bypass Graft - Quadruple bypass 2007, Hx Kidney (Renal Surgery) - RENAL TRANSPLANT, Other - History peritoneal dialysis catheter placement and removal - Immunizations Immunizations up to date: Yes Hx Diphtheria, Pertussis, Tetanus Vaccination: Yes Hx Pneumococcal Vaccination: 08/16/16 Review of Systems - Review of Systems Constitutional: No symptoms reported EENT: No symptoms reported Cardiovascular: No symptoms reported Respiratory: No symptoms reported Gastrointestinal: See HPI Genitourinary: No symptoms reported Male Genitourinary: No symptoms reported Musculoskeletal: No symptoms reported Skin: No symptoms reported Hematologic/Lymphatic: No symptoms reported Neurological/Psychological: No symptoms reported Physical Exam - Vital signs Interpretation: Normal - General General appearance: Appears well In distress: None - HEENT Head: Normocephalic, Atraumatic Eyes: Normal Pupils: PERRL - Respiratory Respiratory status: No respiratory distress. No: Tachypnea Chest status: Nontender Breath sounds: Other - a few scattered rhonchi Chest palpation: Normal - Cardiovascular Rhythm: Regular. No: Tachycardia Heart sounds: Normal auscultation, S1 appreciated, S2 appreciated Murmur: No - Abdominal Inspection: Normal Distension: No distension Bowel sounds: Normal Tenderness: Nontender. No: Tender Organomegaly: No organomegaly - Rectal Stool: Heme negative. No: Black, Bloody Hemorrhoids: None - Back Back: Normal, Nontender - Extremities General upper extremity: Normal inspection, Nontender, Normal color, Normal ROM , Normal temperature General lower extremity: Normal inspection, Nontender, Normal color, Normal ROM , Normal temperature, Normal weight bearing. 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 Workup pending. Patient appears clinically dehydrated with dry mucous membranes, will give gentle hydration (small 500 cc bolus) with history of CHF. No blood in the stool, CBC generally unremarkable with anemia of chronic disease , unfortunately chemistry shows hyperkalemia of 6.0, bicarbonate is low, BUN is elevated, creatinine is significantly elevated at 3.94 which is significantly worse than his previous evaluation recently. Acute abdominal series shows no abdominal concern but shows what appears to be right lower lobe pneumonia. Giving cefepime. Treating with insulin, dextrose, calcium gluconate for cardiac protection, EKG performed and does not show any QRS widening or other concerning abnormalities. Patient was discussed with Dr. Miller. Discussed with Dr. Girard, patient's primary provider and the [employer], He recommends patient transfer because of worsening renal functioning in a patient with renal transplant. Patient is in agreement with this plan. 04/05/17 03:[address] Dinero, he requests a repeat chemistry to evaluate potassium level. 04/05/17 04:[address] Dinero, he accepts patient for transfer. - Laboratory Result Diagrams: 04/05/17 01:30 04/05/17 04:30 Laboratory results interpreted by me: 04/05/17 04/05/17 04/05/17 01:30 01:30 04:30 RBC 3.56 L Hgb 10.8 L Hct 32.9 L RDW 17.2 H Potassium 6.0 H* 5.3 H Chloride 109 H 111 H Carbon Dioxide 16 L 14 L BUN 99 H 99 H Creatinine 3.94 H 3.80 H Est GFR ( Amer) 19 L 20 L Est GFR (Non-Af Amer) 16 L 16 L Glucose 122 H 206 H Direct Bilirubin 0.5 H ALT 75 H Alkaline Phosphatase 131 H Critical Care Note - Critical Care Note Total time excluding time spent on procedures (mins): 40 - Acute renal failure, hyperkalemia, renal transplant patient, pneumonia Comments: Please allow 40 minutes of critical care time for treatment of patient with renal transplant, acute on chronic kidney failure, hyperkalemia requiring treatment, treatment of pneumonia with antibiotics, consultation with internal medicine, consultation and transfer to tertiary care Discharge - Discharge Clinical Impression: Hyperkalemia, Kidney transplant recipient Renal failure Qualifiers: Renal failure chronicity: acute on chronic Acute renal failure type: unspecified Chronic kidney disease stage: unspecified stage Qualified Code(s): N17.9 - Acute kidney failure, unspecified; N18.9 - Chronic kidney disease, unspecified Pneumonia Qualifiers: Pneumonia type: due to unspecified organism Laterality: right Lung location: lower lobe of lung Qualified Code(s): J18.1 - Lobar pneumonia, unspecified organism Condition: Stable Disposition: [facility]
[2017-04-05 01:46] LABS: ABSOLUTE LYMPHOCYTES (AUTO) 1.7 10^3/uL (0.5-4.7); ABSOLUTE MONOCYTES (AUTO) 0.6 10^3/uL (0.1-1.4); ABSOLUTE NEUT (AUTO) 5.4 10^3/uL (1.7-8.2); BASOPHILS % (AUTO) 0.2 % (0-2); EOSINOPHILS % (AUTO) 0.1 % (0-6); HEMATOCRIT 32.9 % (37.9-51.0); HEMOGLOBIN 10.8 g/dL (13.5-17.0); HGB HCT DIFFERENCE -0.5; LYMPHOCYTES % (AUTO) 21.8 % (13-45); MEAN CORPUSCULAR HEMOGLOBIN 30.5 pg (27.0-33.4); MEAN CORPUSCULAR HGB CONC 32.9 g/dL (32.0-36.0); MEAN CORPUSCULAR VOLUME 93 fl (80-97); MONOCYTES % (AUTO) 8.1 % (3-13); RED BLOOD COUNT 3.56 10^6/uL (4.35-5.55); RED CELL DISTRIBUTION WIDTH 17.2 % (11.5-14.0); SEGMENTED NEUTROPHILS % (AUTO) 69.8 % (42-78); WHITE BLOOD COUNT 7.7 10^3/uL (4.0-10.5)
[2017-04-05 02:04] LABS: ALANINE AMINOTRANSFERASE 75 U/L (21-72); ALBUMIN 3.5 g/dL (3.5-5.0); ALKALINE PHOSPHATASE 131 U/L (38-126); ANION GAP 16 (5-19); ASPARTATE AMINO TRANSFERASE 47 U/L (17-59); BILIRUBIN,DIRECT 0.5 mg/dL (0.0-0.4); BILIRUBIN,TOTAL 0.5 mg/dL (0.2-1.3); BLOOD UREA NITROGEN 99 mg/dL (7-20); CALCIUM 9.4 mg/dL (8.4-10.2); CARBON DIOXIDE 16 mmol/L (22-30); CHLORIDE 109 mmol/L (98-107); CREATININE RESULT 3.94 mg/dL (0.52-1.25); GLUCOSE 122 mg/dL (75-110); SODIUM 141.1 mmol/L (137-145); TOTAL PROTEIN 7.4 g/dL (6.3-8.2)
[2017-04-05] MEDS ORDERED: INSULIN REG, HUMAN 100 UNIT/ML 3 ML VIAL (PYX) IV ONE (02:13)
[2017-04-05 02:15] LABS: PROTHROMBIN TIME 15.2 SEC (11.4-15.4)
[2017-04-05] MEDS ORDERED: DEXTROSE 50%-WATER 25 GM/50 ML DISP.SYRIN IV ONE (02:15)
[2017-04-05] MEDS ORDERED: CALCIUM GLUCONATE 1000 MG/10 ML INJ IV ONE (02:15)
[2017-04-05 02:16] LABS: PARTIAL THROMBOPLASTIN TIME 27.4 SEC (23.5-35.8)
[2017-04-05] MEDS ORDERED: NORMAL SALINE 1000 ML 500 ML IV ONE (03:07)
[2017-04-05] MEDS ORDERED: CEFEPIME 2 GM/D5W RTU 50 ML IV ONE (03:10)
[2017-04-05 04:55] LABS: ANION GAP 14 (5-19); BLOOD UREA NITROGEN 99 mg/dL (7-20); CALCIUM 9.3 mg/dL (8.4-10.2); CARBON DIOXIDE 14 mmol/L (22-30); CHLORIDE 111 mmol/L (98-107); GLUCOSE 206 mg/dL (75-110); POTASSIUM 5.3 mmol/L (3.6-5.0); SODIUM 139.3 mmol/L (137-145)
[2017-04-05 07:29] VITALS: BP 135/78
[2017-04-05 08:49] LABS: APPEARANCE,URINE CLOUDY; BILIRUBIN,URINE NEGATIVE (NEGATIVE); GLUCOSE, URINE NEGATIVE (NEGATIVE); KETONES,URINE NEGATIVE (NEGATIVE); LEUKOCYTE ESTERASE,URINE LARGE (NEGATIVE); NITRITE,URINE NEGATIVE (NEGATIVE); PROTEIN,URINE 30 mg/dL (NEGATIVE); URINE SPECIFIC GRAVITY 1.011; UROBILINOGEN,URINE NEGATIVE mg/dL (<2.0)
--- NOTE | 2017-04-05 09:11 | ER Document Report ---
Doctor's Note Notes: 04/05/17 09:05 Patient reevaluated stable at this time, transfer is available at this time
--- NOTE | 2017-04-05 17:12 | EKG REPORT ---
SEVERITY:- ABNORMAL ECG - SINUS RHYTHM VENTRICULAR PREMATURE COMPLEX FIRST DEGREE AV BLOCK PROBABLE LEFT ATRIAL ABNORMALITY LEFT VENTRICULAR HYPERTROPHY INFERIOR INFARCT, AGE INDETERMINATE CONSIDER ANTERIOR INFARCT : Confirmed by: Samia Roper MD 05-Apr-2017 17:12:06
== END 2017-04-05 09:30 | disposition short-term general hospital (02) ==
LOC: ER 01:00
DX: J18.1 Lobar pneumonia, unspecified organism (principal); E87.5 Hyperkalemia; N17.9 Acute kidney failure, unspecified; K92.0 Hematemesis; Z94.0 Kidney transplant status
CPT/HCPCS: 93005; 99291; 96375; 96365; 96368; 36415; 87040; 85025; 85610; 85730; 82272; 80048; 80053; 81001; 74022; 93010; J0610; J3490; J1815; J0692

== ENCOUNTER 2017-05-08 17:27 | Emergency (ER) | payer OTHER, MEDICARE ==
[2017-05-08] MEDS ORDERED: HYDROCODONE/ACETAMINOPHEN 5-325 MG TABLET PO ONE (18:33)
--- NOTE | 2017-05-08 18:46 | ER Document Report ---
ED General - General Chief Complaint: Knee Pain Stated Complaint: KNEE PAIN Time Seen by Provider: 05/08/17 18:09 Mode of Arrival: Medic Information source: Patient Notes: 61-year-old male history of kidney transplant Blanca Ventura presents with complaints of left knee pain. Patient notes he is able to move his lower extremity with no difficulty but notes that it hurts in the knee itself. Patient denies any traumatic injuries he may have strained TRAVEL OUTSIDE OF THE [place] IN LAST 30 DAYS: No - HPI Onset: Yesterday Onset/Duration: Sudden Quality of pain: Achy Severity: Mild Pain Level: 1 Associated symptoms: Other Exacerbated by: Movement Relieved by: Denies Similar symptoms previously: No Recently seen / treated by doctor: No - Related Data Allergies/Adverse Reactions: No Known Allergies Allergy (Verified 05/08/17 18:04) Past Medical History - Social History Smoking Status: Never Smoker Cigarette use (# per day): No Chew tobacco use (# tins/day): No Smoking Education Provided: No Frequency of alcohol use: None Drug Abuse: None Family History: CAD, None, Reviewed & Not Pertinent Patient has suicidal ideation: No Patient has homicidal ideation: No - Past Medical History Cardiac Medical History: Reports: Hx Congestive Heart Failure, Hx Coronary Artery Disease, Hx Heart Attack, Hx Hypercholesterolemia, Hx Hypertension Pulmonary Medical History: Reports: Hx Asthma, Hx COPD, Hx Pneumonia - GBS, Hx Intubation, Hx Respiratory Failure, Hx Sleep Apnea - On C Pap Endocrine Medical History: Reports: Hx Diabetes Mellitus Type 1, Hx Diabetes Mellitus Type 2 Renal/ Medical History: Reports: Hx End Stage Renal Disease. Denies: Hx Peritoneal Dialysis GI Medical History: Denies: Hx Crohn's Disease, Hx Diverticulitis, Hx Ulcerative Colitis Psychiatric Medical History: Denies: Hx Depression Infectious Medical History: Reports: Hx C-Diff Past Surgical History: Reports: Hx Cardiac Surgery - double bypass, Hx Coronary Artery Bypass Graft - Quadruple bypass 2007, Hx Kidney (Renal Surgery) - RENAL TRANSPLANT, Other - History peritoneal dialysis catheter placement and removal - Immunizations Immunizations up to date: Yes Hx Diphtheria, Pertussis, Tetanus Vaccination: Yes Hx Pneumococcal Vaccination: 08/16/16 Review of Systems - Review of Systems Notes: REVIEW OF SYSTEMS: CONSTITUTIONAL : Denies fever, chills, or sweats. Denies recent illness. EENT: Denies eye, ear, throat, or mouth pain or symptoms. Denies nasal or sinus congestion or discharge. Denies throat, tongue, or mouth swelling or difficulty swallowing. CARDIOVASCULAR: Denies chest pain. Denies palpitations or racing or irregular heart beat. Denies ankle edema. RESPIRATORY: Denies cough, cold, or chest congestion. Denies shortness of breath, difficulty breathing, or wheezing. GASTROINTESTINAL: Denies abdominal pain or distention. Denies nausea, vomiting , or diarrhea. Denies blood in vomitus, stools, or per rectum. Denies black, tarry stools. Denies constipation. GENITOURINARY: Denies difficulty urinating, painful urination, burning, frequency, blood in urine, or discharge. MUSCULOSKELETAL: admits to left knee pain SKIN: Denies rash, lesions or sores. HEMATOLOGIC : Denies easy bruising or bleeding. LYMPHATIC: Denies swollen, enlarged glands. NEUROLOGICAL: Denies confusion or altered mental status. Denies passing out or loss of consciousness. Denies dizziness or lightheadedness. Denies headache. Denies weakness or paralysis or loss of use of either side. Denies problems with gait or speech. Denies sensory loss, numbness, or tingling. Denies seizures. PSYCHIATRIC: Denies anxiety or stress. Denies depression, suicidal ideation, or homicidal ideation. ALL OTHER SYSTEMS REVIEWED AND NEGATIVE. Dictation was performed using [employer] voice recognition software PHYSICAL EXAMINATION: GENERAL: Well-appearing, well-nourished and in no acute distress. HEAD: Atraumatic, normocephalic. EYES: Pupils equal round and reactive to light, extraocular movements intact, sclera anicteric, conjunctiva are normal. ENT: Nares patent, oropharynx clear without exudates. Moist mucous membranes. NECK: Normal range of motion, supple without lymphadenopathy LUNGS: Breath sounds clear to auscultation bilaterally and equal. No wheezes rales or rhonchi. HEART: Regular rate and rhythm without murmurs ABDOMEN: Soft, nontender, nondistended abdomen. No guarding, no rebound. No masses appreciated. Musculoskeletal: Patient is able to move the hip, notes pain with movement of the left knee NEUROLOGICAL: Cranial nerves grossly intact. Normal speech, normal gait. Normal sensory, motor exams PSYCH: Normal mood, normal affect. SKIN: Warm, Dry, normal turgor, no rashes or lesions noted. Physical Exam - Vital signs Vitals: Temp Pulse Resp BP Pulse Ox 99.2 F 68 20 191/67 H 100 05/08/17 18:04 05/08/17 18:04 05/08/17 18:04 05/08/17 18:04 05/08/17 18:04 Course - Re-evaluation Re-evalutation: 05/08/17 18:46 Patient has probable strain of the knee, xray pending no life-threatening issues noted 05/08/17 20:16 X-rays consistent with small amount of effusion as well as changes, patient will be given orthopedic follow-up to evaluate for any changes Patient has no sign of infection After performing a Medical Screening Examination, I estimate there is LOW risk for INTRACRANIAL HEMORRHAGE, UNSTABLE SPINE FRACTURE, CENTRAL CORD SYNDROME, CAUDA EQUINA, THORACIC AORTIC DISSECTION, PNEUMOTHORAX, PERFORATED BOWEL, RUPTURED ABDOMINAL AORTIC ANEURYSM, ACUTE TENDON RUPTURE, COMPARTMENT SYNDROME, or OPEN FRACTURE, thus I consider the discharge disposition reasonable. Also, there is no evidence or peritonitis, sepsis, or toxicity. I have reevaluated this patient multiple times and no significant life threatening changes are noted. The patient and I have discussed the diagnosis and risks, and we agree with discharging home to follow-up with their primary doctor with the understanding that symptoms and presentations can change. We also discussed returning to the Emergency Department immediately if new or worsening symptoms occur. We have discussed the symptoms which are most concerning (e.g., bloody stool, fever, changing or worsening pain, vomiting) that necessitate immediate return. - Vital Signs Vital signs: Temp Pulse Resp BP Pulse Ox 99.2 F 68 20 191/67 H 100 05/08/17 18:04 05/08/17 18:04 05/08/17 18:04 05/08/17 18:04 05/08/17 18:04 - Diagnostic Test Radiology reviewed: Image reviewed, Reports reviewed - Given to patient Discharge - Discharge Clinical Impression: Chronic kidney disease (CKD) Qualifiers: Chronic kidney disease stage: unspecified stage Qualified Code(s): N18.9 - Chronic kidney disease, unspecified Hypertension Qualifiers: Hypertension type: essential hypertension Qualified Code(s): I10 - Essential ( primary) hypertension Knee pain, acute Qualifiers: Laterality: left Qualified Code(s): M25.562 - Pain in left knee Condition: Stable Disposition: HOME, SELF-CARE Instructions: Suspected Internal Knee Injury ([facility]) Prescriptions: Oxycodone HCl/Acetaminophen [Percocet 5-325 mg Tablet] 1 - 2 tab PO Q4H PRN #15 tablet PRN Reason: Referrals: KEEGAN MONTENEGRO MD [Primary Care Provider] - Follow up as needed CLAY ESTEVES MD [ACTIVE STAFF] - Follow up tomorrow
--- NOTE | 2017-05-08 20:00 | RADIOLOGY REPORT (SQ) ---
EXAM DESCRIPTION: KNEE LEFT 4 VIEW COMPLETED DATE/TIME: 05/08/2017 7:15 pm REASON FOR STUDY: knee pain COMPARISON: None. NUMBER OF VIEWS: Four views. TECHNIQUE: AP, lateral, and both oblique radiographic images acquired of the left knee. LIMITATIONS: None. FINDINGS: MINERALIZATION: Abnormal with heterogeneous areas of lucency in the femoral and tibial-fib ular metaphyses. BONES: No acute fracture or dislocation. No worrisome bone lesions. JOINT: Small effusion. SOFT TISSUES: No focal soft tissue swelling. Scattered vascular calcifications. No radio-opaque for eign body. OTHER: No other significant finding. IMPRESSION: No fracture identified. Small joint effusion. Abnormal appearance of the bones with he terogeneous areas of lucency in the femoral and tibial-fibular metaphyses, this may reflect bone infa rcts or metabolic disease, malignancy is a differential consideration, correlate with clinical histor y. TECHNICAL DOCUMENTATION: JOB ID: [id number] [employer]- All Rights Reserved
[2017-05-08 20:44] VITALS: BP 165/90
== END 2017-05-09 00:22 | disposition home or self-care (01) ==
LOC: ER 17:27
DX: M25.562 Pain in left knee (principal); I25.10 Atherosclerotic heart disease of native coronary artery without angina pectoris; E78.00 Pure hypercholesterolemia, unspecified; J44.9 Chronic obstructive pulmonary disease, unspecified; J45.909 Unspecified asthma, uncomplicated; E11.9 Type 2 diabetes mellitus without complications; I13.2 Hypertensive heart and chronic kidney disease with heart failure and with stage 5 chronic kidney disease, or end stage renal disease; E11.22 Type 2 diabetes mellitus with diabetic chronic kidney disease; I50.9 Heart failure, unspecified; N18.6 End stage renal disease; Z94.0 Kidney transplant status; I25.2 Old myocardial infarction
CPT/HCPCS: 99283

== ENCOUNTER 2017-06-01 19:37 | Inpatient (IN) | payer MEDICARE ==
--- NOTE | 2017-06-01 20:39 | RADIOLOGY REPORT (SQ) ---
EXAM DESCRIPTION: CHEST SINGLE VIEW COMPLETED DATE/TIME: 06/01/2017 8:27 pm REASON FOR STUDY: preop COMPARISON: 03/23/2017 EXAM PARAMETERS: NUMBER OF VIEWS: One view. TECHNIQUE: Single frontal radiographic view of the chest acquired. RADIATION DOSE: NA LIMITATIONS: None. FINDINGS: LUNGS AND PLEURA: No opacities, masses or pneumothorax. No pleural effusion. MEDIASTINUM AND HILAR STRUCTURES: No masses. Contour normal. HEART AND VASCULAR STRUCTURES: Heart is enlarged. No overt failure. CABG hardware. BONES: No acute findings. HARDWARE: Venous access catheter dual lumen via right subclavian approach. Tips at the cavoatrial ju nction. OTHER: No other significant finding. IMPRESSION: Cardiac enlargement. No overt failure. TECHNICAL DOCUMENTATION: JOB ID: [id number]
--- NOTE | 2017-06-01 20:57 | ER Document Report ---
ED General - General Mode of Arrival: Ambulatory Information source: Patient TRAVEL OUTSIDE OF THE [place] IN LAST 30 DAYS: No <SALEEM GUTIERREZ - Last Filed: 06/02/17 00:30> <SHAE BENJAMIN - Last Filed: 06/02/17 01:24> - General Chief Complaint: Abnormal Lab Results Stated Complaint: POSSIBLE INFECTION Time Seen by Provider: 06/01/17 19:59 Notes: Patient is a 61-year-old male who presents to the emergency department today secondary to abnormal labs at dialysis prior to arrival. Patient was found to have an elevated white blood cell count along with CRE on a culture done at dialysis. Patient states he was told by his printed circuit boards inspector, Dr. Tavares, to come to the emergency department today for IV antibiotics. Patient states he had a scheduled surgery tomorrow for fistula placement. Patient does mention that he recently began having diarrhea as well. Patient denies any fevers, nausea, or vomiting. (SALEEM GUTIERREZ) - Related Data Allergies/Adverse Reactions: No Known Allergies Allergy (Verified 05/08/17 18:04) Past Medical History - General Information source: Patient, [facility] Records - Social History Smoking Status: Unknown if Ever Smoked Frequency of alcohol use: None Drug Abuse: None Lives with: Family Family History: CAD, None, Reviewed & Not Pertinent Patient has suicidal ideation: No Patient has homicidal ideation: No - Past Medical History Cardiac Medical History: Reports: Hx Congestive Heart Failure, Hx Coronary Artery Disease, Hx Heart Attack, Hx Hypercholesterolemia, Hx Hypertension Pulmonary Medical History: Reports: Hx Asthma, Hx COPD, Hx Pneumonia - GBS, Hx Intubation, Hx Respiratory Failure, Hx Sleep Apnea - On C Pap Endocrine Medical History: Reports: Hx Diabetes Mellitus Type 1, Hx Diabetes Mellitus Type 2 Renal/ Medical History: Reports: Hx End Stage Renal Disease, Hx Peritoneal Dialysis GI Medical History: Denies: Hx Crohn's Disease, Hx Diverticulitis, Hx Ulcerative Colitis Psychiatric Medical History: Denies: Hx Depression Infectious Medical History: Reports: Hx C-Diff Past Surgical History: Reports: Hx Cardiac Surgery - double bypass, Hx Coronary Artery Bypass Graft - Quadruple bypass 2007, Hx Kidney (Renal Surgery) - RENAL TRANSPLANT, Other - History peritoneal dialysis catheter placement and removal - Immunizations Immunizations up to date: Yes Hx Diphtheria, Pertussis, Tetanus Vaccination: Yes Hx Pneumococcal Vaccination: 08/16/16 <SALEEM GUTIERREZ - Last Filed: 06/02/17 00:30> Review of Systems - Review of Systems Constitutional: See HPI, Other - abnormal labs at dialysis, see HPI EENT: No symptoms reported Cardiovascular: No symptoms reported Respiratory: No symptoms reported Gastrointestinal: No symptoms reported Genitourinary: No symptoms reported Male Genitourinary: No symptoms reported Musculoskeletal: No symptoms reported Skin: No symptoms reported Hematologic/Lymphatic: No symptoms reported Neurological/Psychological: No symptoms reported -: Yes All other systems reviewed and negative <SALEEM GUTIERREZ - Last Filed: 06/02/17 00:30> Physical Exam - Vital signs Interpretation: Normal - General General appearance: Appears well, Alert - HEENT Head: Normocephalic, Atraumatic Eyes: Normal Pupils: PERRL - Respiratory Respiratory status: No respiratory distress Chest status: Nontender Breath sounds: Normal Chest palpation: Normal - Cardiovascular Rhythm: Regular Heart sounds: Normal auscultation Murmur: No - Abdominal Inspection: Normal Distension: No distension Bowel sounds: Normal Tenderness: Nontender Organomegaly: No organomegaly - Back Back: Normal, Nontender - Extremities General upper extremity: Normal inspection, Nontender, Normal color, Normal ROM , Normal temperature General lower extremity: Normal inspection, Nontender, Normal color, Normal ROM , Normal temperature, Normal weight bearing. No: Mariama's sign - Neurological Neuro grossly intact: Yes Cognition: Normal Orientation: AAOx4 Dominic Coma Scale Eye Opening: Spontaneous [place] Coma Scale Verbal: Oriented [place] Coma Scale Motor: Obeys Commands [place] Coma Scale Total: 15 Speech: Normal Motor strength normal: LUE, RUE, LLE, RLE Sensory: Normal - Psychological Associated symptoms: Normal affect, Normal mood - Skin Skin Temperature: Warm Skin Moisture: Dry Skin Color: Normal <SHAE BENJAMIN - Last Filed: 06/02/17 01:24> - Vital signs Vitals: Temp Pulse Resp BP Pulse Ox 99.7 F 77 19 173/66 H 96 06/01/17 19:54 06/01/17 19:54 06/01/17 19:54 06/01/17 19:54 06/01/17 19:54 Course - Laboratory Result Diagrams: 06/01/17 21:38 06/01/17 21:38 <SALEEM GUTIERREZ - Last Filed: 06/02/17 00:30> - Laboratory Result Diagrams: 06/01/17 21:38 06/01/17 21:38 <SHAE BENJAMIN - Last Filed: 06/02/17 01:24> - Re-evaluation Re-evalutation: 06/02/17 01:23 Patient is a 61-year-old male who presents to the emergency department because he was sent in by his doctor for a antibiotic resistant urinary tract infection. Results reviewed. Susceptible to amikacin. Gentamicin and ertapenem started as those look like to have apparent susceptibilities. Patient also with diarrhea here in the emergency department. Sent for cannulization and positive for C. difficile. Oral vancomycin has been ordered. Discussed results with patient. Patient will be referred to the physician covering for Dr. Girard for admission. Patient agrees with plan. Stable time of admission. (SHAE BENJAMIN) - Vital Signs Vital signs: Temp Pulse Resp BP Pulse Ox 99.7 F 77 19 173/66 H 96 06/01/17 19:54 06/01/17 19:54 06/01/17 19:54 06/01/17 19:54 06/01/17 19:54 - Laboratory Laboratory results interpreted by me: 06/01/17 06/01/17 06/01/17 21:21 21:38 21:38 RBC 4.12 L Hgb 12.5 L RDW 17.1 H Seg Neutrophils % 38.6 L Potassium 3.5 L BUN 27 H Creatinine 2.30 H Est GFR ( Amer) 35 L Est GFR (Non-Af Amer) 29 L Glucose 236 H POC Glucose 222 H Direct Bilirubin 0.6 H Alkaline Phosphatase 173 H Total Protein 8.7 H Albumin 3.3 L Urine Protein Urine Glucose (UA) Ur Leukocyte Esterase Urine Ascorbic Acid 06/01/17 21:38 RBC Hgb RDW Seg Neutrophils % Potassium BUN Creatinine Est GFR ( Amer) Est GFR (Non-Af Amer) Glucose POC Glucose Direct Bilirubin Alkaline Phosphatase Total Protein Albumin Urine Protein 100 H Urine Glucose (UA) 50 H Ur Leukocyte Esterase MODERATE H Urine Ascorbic Acid 40 H Discharge <SALEEM GUTIERREZ - Last Filed: 06/02/17 00:30> - Discharge Admitting Provider: [facility] Unit Admitted: Telemetry <SHAE BENJAMIN - Last Filed: 06/02/17 01:24> - Discharge Clinical Impression: Colitis due to Clostridium difficile UTI (urinary tract infection) Qualifiers: Urinary tract infection type: site unspecified Hematuria presence: with hematuria Qualified Code(s): N39.0 - Urinary tract infection, site not specified ; R31.9 - Hematuria, unspecified Chronic kidney disease Qualifiers: Chronic kidney disease stage: unspecified stage Qualified Code(s): N18.9 - Chronic kidney disease, unspecified Condition: Stable Disposition: ADMITTED INPATIENT Scribe Attestation: 06/02/17 01:24 I personally performed the services described in the documentation, reviewed and edited the documentation which was dictated to the scribe in my presence, and it accurately records my words and actions. (SHAE BENJAMIN) Scribe Documentation - Scribe Written by Scribe:: Lucio Zamora, 06/02/2017 [id number] acting as scribe for :: Pina <SALEEM GUTIERREZ - Last Filed: 06/02/17 00:30>
[2017-06-01 22:06] LABS: VENOUS BLOOD BASE EXCESS -0.2 mmol/L; VENOUS BLOOD HCO3 25.1 mmol/L (20-32); VENOUS BLOOD PH 7.38 (7.30-7.42)
[2017-06-01 22:11] LABS: ABSOLUTE BASOPHILS # (AUTO) 0.1 10^3/uL (0.0-0.2); ABSOLUTE EOSINOPHILS # (AUTO) 0.4 10^3/uL (0.0-0.6); ABSOLUTE LYMPHOCYTES (AUTO) 4.3 10^3/uL (0.5-4.7); ABSOLUTE MONOCYTES (AUTO) 1.3 10^3/uL (0.1-1.4); ABSOLUTE NEUT (AUTO) 3.8 10^3/uL (1.7-8.2); BASOPHILS % (AUTO) 0.6 % (0-2); EOSINOPHILS % (AUTO) 3.9 % (0-6); HEMOGLOBIN 12.5 g/dL (13.5-17.0); HGB HCT DIFFERENCE -1.5; LYMPHOCYTES % (AUTO) 44.1 % (13-45); MEAN CORPUSCULAR HEMOGLOBIN 30.3 pg (27.0-33.4); MEAN CORPUSCULAR HGB CONC 32.1 g/dL (32.0-36.0); MEAN CORPUSCULAR VOLUME 95 fl (80-97); MONOCYTES % (AUTO) 12.8 % (3-13); RED BLOOD COUNT 4.12 10^6/uL (4.35-5.55); RED CELL DISTRIBUTION WIDTH 17.1 % (11.5-14.0); SEGMENTED NEUTROPHILS % (AUTO) 38.6 % (42-78); WHITE BLOOD COUNT 9.8 10^3/uL (4.0-10.5)
[2017-06-01 22:24] LABS: ALANINE AMINOTRANSFERASE 43 U/L (21-72); ALBUMIN 3.3 g/dL (3.5-5.0); ALKALINE PHOSPHATASE 173 U/L (38-126); ANION GAP 14 (5-19); ASPARTATE AMINO TRANSFERASE 46 U/L (17-59); BILIRUBIN,DIRECT 0.6 mg/dL (0.0-0.4); BILIRUBIN,TOTAL 0.7 mg/dL (0.2-1.3); BLOOD UREA NITROGEN 27 mg/dL (7-20); CALCIUM 8.4 mg/dL (8.4-10.2); CARBON DIOXIDE 25 mmol/L (22-30); CHLORIDE 103 mmol/L (98-107); GLUCOSE 236 mg/dL (75-110); POTASSIUM 3.5 mmol/L (3.6-5.0); SODIUM 141.5 mmol/L (137-145); TOTAL PROTEIN 8.7 g/dL (6.3-8.2)
[2017-06-01 22:40] LABS: AMORPHOUS SEDIMENT,URINE 1+ /HPF; APPEARANCE,URINE TURBID; BILIRUBIN,URINE NEGATIVE (NEGATIVE); GLUCOSE, URINE 50 mg/dL (NEGATIVE); KETONES,URINE NEGATIVE (NEGATIVE); LEUKOCYTE ESTERASE,URINE MODERATE (NEGATIVE); NITRITE,URINE NEGATIVE (NEGATIVE); PROTEIN,URINE 100 mg/dL (NEGATIVE); UROBILINOGEN,URINE NEGATIVE mg/dL (<2.0)
[2017-06-01] MEDS ORDERED: GENTAMICIN SULFATE INJ 80 MG/2 ML VIAL IV ONE (23:31)
[2017-06-01] MEDS ORDERED: ERTAPENEM SODIUM INJ 1 GM VIAL IV ONE (23:32)
[2017-06-01] MEDS ORDERED: VANCOMYCIN HCL INJ 500 MG VIAL PO ONE (23:33)
[2017-06-02] MEDS ORDERED: METRONIDAZOLE 500 MG TABLET PO ONE (07:00)
[2017-06-02 07:07] LABS: HEMATOCRIT 36.4 % (37.9-51.0); HEMOGLOBIN 12.1 g/dL (13.5-17.0); HGB HCT DIFFERENCE -0.1; MEAN CORPUSCULAR HEMOGLOBIN 31.2 pg (27.0-33.4); MEAN CORPUSCULAR HGB CONC 33.2 g/dL (32.0-36.0); MEAN CORPUSCULAR VOLUME 94 fl (80-97); RED BLOOD COUNT 3.88 10^6/uL (4.35-5.55); RED CELL DISTRIBUTION WIDTH 16.9 % (11.5-14.0); WHITE BLOOD COUNT 10.6 10^3/uL (4.0-10.5)
[2017-06-02 07:33] LABS: ANION GAP 13 (5-19); BLOOD UREA NITROGEN 35 mg/dL (7-20); CALCIUM 8.4 mg/dL (8.4-10.2); CARBON DIOXIDE 25 mmol/L (22-30); CHLORIDE 105 mmol/L (98-107); CREATININE RESULT 2.76 mg/dL (0.52-1.25); GLUCOSE 104 mg/dL (75-110); POTASSIUM 3.2 mmol/L (3.6-5.0); SODIUM 142.6 mmol/L (137-145)
--- NOTE | 2017-06-02 07:47 | EKG REPORT ---
SEVERITY:- ABNORMAL ECG - SINUS RHYTHM VENTRICULAR PREMATURE COMPLEX LEFT ATRIAL ABNORMALITY LVH WITH SECONDARY REPOLARIZATION ABNORMALITY INFERIOR INFARCT, OLD CONSIDER ANTERIOR INFARCT BORDERLINE PROLONGED QT INTERVAL : Confirmed by: Zoe Lazo 02-Jun-2017 07:47:05
--- NOTE | 2017-06-02 12:27 | Physician Advisory Note ---
Physician Advisor ProgressNote .: Pursuant to the plan for [facility], I have reviewed the medical record for this patient. Physician Advisor Statement: Please consider documentin. "End Stage Renal Disease on hemodialysis" - or is he CKD stage 4 or 5 not receiving HD consistently yet? 2. "Chronic diastolic CHF" 3. 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 Also c/o'd recent diarrhea , was (+) C.diff but neg stool WBC. H&P remains pending. VSS. WBC 9.8 & 10.6. K down from 3.5 to 3.2, while Cr up from 2.3 to 2.76. Attending has ordered IV ertapenem, po Flagyl, consulted nephrol to continue HD , & surgery to do the fistula that was already planned to be done as outpt 06/02. Insufficient information to make status determination. CK
[2017-06-02] MEDS: METRONIDAZOLE 500 MG TABLET PO SCH ×2 (13:57→22:26)
[2017-06-02] MEDS ORDERED: DEXTROSE 50%-WATER SYRINGE 25 GM/50 ML DOSE IV PRN (14:46)
[2017-06-02] MEDS ORDERED: DEXTROSE 50%-WATER SYRINGE 12.5 GM/25 ML DOSE IV PRN (14:46)
[2017-06-02] MEDS ORDERED: DEXTROSE 40% GEL 15 GM TUBE PO PRN (14:46)
[2017-06-02] MEDS ORDERED: DEXTROSE 40% GEL 15 GM TUBE X 2 PO PRN (14:46)
[2017-06-02] MEDS ORDERED: GLUCAGON,HUMAN RECOMB 1 MG INJ IM PRN (14:46)
[2017-06-02] MEDS ORDERED: INSULIN LISPRO 100 UNIT/ML 3 ML VIAL SUBCUT PRN (14:46)
--- NOTE | 2017-06-02 17:02 | PDOC CONSULTATION ---
Consultation Consult Date: 06/02/17 Consult reason:: ESRD for dialysis and co management of ESBL E.Coli. 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 Cultures done at [facility] has grown ESBL E. coli with multiple resistance to various antibiotics.He denies any history of fever chills. He gives symptoms of prostatitism.He is dialyzing through a left IJ catheter.Symptoms and signs of exit site infection.He was due for an AV fistula placement today which obviously has been postponed because of his septic status. He continues to make urine. However he has obstructive symptoms. He had seen urology in [place] but has not established with one here in [place]. Past Medical History Cardiac Medical History: Reports: CHF-Diastolic, Coronary Artery Disease, Hyperlipidemia, Hypertension-primary, Myocardial Infarction Pulmonary Medical History: Reports: Asthma, Chronic Obstructive Pulmonary Disease (COPD), Intubation, Pneumonia - GBS, Respiratory Failure, Sleep Apnea - On C Pap Endocrine Medical History: Reports: Diabetes Mellitus Type 2 Complications of Diabetes: Reports: Nephropathy Renal/ Medical History: Reports: End Stage Renal Disease, Renal Osteodystropy , Renal Transplant - Failed. Had history of MAGNETIC TAPE TYPEWRITER OPERATOR toxicity, recurrent UTI and obstructive uropathy. GI Medical History: Denies: Crohn's Disease, Diverticulitis, Ulcerative Colitis Psychiatric Medical History: Denies: Depression Infectious Medical History: Reports: Clostridium Difficile Hematology Medical History: Reports Anemia of Chronic Kidney Disease Past Surgical History Past Surgical History: Reports: Coronary Artery Bypass Graft - Quadruple bypass 2007, Other - History peritoneal dialysis catheter placement and removal Social History Lives with: Family Smoking Status: Unknown if Ever Smoked Frequency of Alcohol Use: None Hx Recreational Drug Use: No Drugs: None Hx Prescription Drug Abuse: No - Advance Directive Resuscitation Status: Full Code Family History Parental Family History Reviewed: Yes - Positive for diabetes hypertension Children Family History Reviewed: Yes - Negative for CKD Sibling(s) Family History Reviewed.: Yes - History of renal transplant in the background of diabetes in brother Medication/Allergy Home Medications: Ascorbic Acid [Vitamin C] 250 mg PO DAILY 06/02/17 Atorvastatin Calcium [Lipitor 10 mg Tablet] 10 mg PO DAILY 06/02/17 B Complex & C No.20/Folic Acid [Nephrocaps Softgel] 1 mg PO DAILY 06/02/17 Clonazepam [Klonopin] 0.25 mg PO BID 06/02/17 Ergocalciferol (Vitamin D2) [Drisdol 50,000 unit (1.25MG) Capsule] 50,000 units PO WE 06/02/17 Ferrous Sulfate [Feosol 325 mg Tablet] 325 mg PO DAILY 06/02/17 Hydralazine HCl [Apresoline 25 mg Tablet] 25 mg PO Q8 06/02/17 Insulin Glargine,Hum.rec.anlog [Lantus Solostar] 3 units SQ QHS 06/02/17 Insulin Lispro [Humalog] 4 units SQ TID 06/02/17 Isosorbide Mononitrate [Imdur 30 mg Tablet.er] 30 mg PO DAILY 06/02/17 Metoprolol Tartrate [Lopressor 50 mg Tablet] 50 mg PO Q12 06/02/17 Nitroglycerin [Nitrostat 0.4 mg (1/150 Gr) Tabs 25/Bottle] 0.4 mg SL Q5MP PRN Omeprazole 20 mg PO DAILY 06/02/17 Prednisone [Deltasone 5 mg Tablet] 5 mg PO DAILY 06/02/17 Tamsulosin HCl [Flomax 0.4 mg Cap.sr] 0.4 mg PO WSUPPER 06/02/17 Allergies/Adverse Reactions: No Known Allergies Allergy (Verified 05/08/17 18:04) Review of Systems Constitutional: PRESENT: fatigue. ABSENT: anorexia, chills, fever(s), headache( s), night sweats, weakness Nose, Mouth, and Throat: ABSENT: headache(s), mouth pain, sore throat Cardiovascular: ABSENT: chest pain, edema, orthropnea, palpitations Respiratory: ABSENT: dyspnea, hemoptysis Gastrointestinal: PRESENT: diarrhea. ABSENT: abdominal pain, bloating, coffee ground emesis, constipation, dysphagia, heartburn, hematemesis, hematochezia Genitourinary: PRESENT: difficulty urinating, dysuria. ABSENT: hematuria Integumentary: ABSENT: lesions, pruritus, rash Neurological: ABSENT: abnormal gait, abnormal movements, abnormal speech, focal weakness Psychiatric: ABSENT: anxiety, depression Hematologic/Lymphatic: ABSENT: easy bruising, lymphadenopathy Physical Exam Vital Signs: Temp Pulse Resp BP Pulse Ox 99.1 F 66 17 159/59 H 99 06/02/17 12:04 06/02/17 12:04 06/02/17 12:04 06/02/17 12:04 06/02/17 12:04 General appearance: PRESENT: no acute distress Eye exam: PRESENT: conjunctiva pink, EOMI, PERRLA. ABSENT: nystagmus, scleral icterus Ear exam: PRESENT: normal external ear exam. ABSENT: bleeding, drainage Mouth exam: PRESENT: moist, neck supple Neck exam: ABSENT: lymphadenopathy, meningismus, tenderness, thyromegaly, tracheal deviation Respiratory exam: PRESENT: clear to auscultation jolie. ABSENT: crackles, rhonchi Cardiovascular exam: PRESENT: +S1, +S2 GI/Abdominal exam: PRESENT: normal bowel sounds, soft. ABSENT: organomegaly, tenderness Extremities exam: ABSENT: pedal edema Neurological exam: PRESENT: alert, awake, oriented to person, oriented to place , oriented to time Psychiatric exam: ABSENT: anxious, depressed Skin exam: ABSENT: cyanosis, dry, erythema, mottled, rash Results Laboratory Results: 06/02/17 06:47 06/02/17 06:47 06/02/17 06/02/17 06:47 06:47 WBC 10.6 H RBC 3.88 L Hgb 12.1 L Hct 36.4 L MCV 94 MCH 31.2 MCHC 33.2 RDW 16.9 H Plt Count 249 Sodium 142.6 Potassium 3.2 L Chloride 105 Carbon Dioxide 25 Anion Gap 13 BUN 35 H Creatinine 2.76 H Est GFR ( Amer) 28 L Est GFR (Non-Af Amer) 24 L Glucose 104 Calcium 8.4 Impressions: Chest X-Ray 06/01/17 20:16 IMPRESSION: Cardiac enlargement. No overt failure. Assessment & Plan - Diagnosis (1) UTI due to extended-spectrum beta lactamase (ESBL) producing Escherichia coli Plan: Patient began on ertapenem. Monitor needs evaluation by urologist to look at obstructive uropathy symptoms most likely from enlarged prostate. Meanwhile start Flomax. (2) Obstructive uropathy Plan: As mentioned earlier. 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 (4) Anemia in chronic kidney disease (CKD) Plan: Adjust erythropoietin on dialysis. (5) Coronary artery disease Qualifiers: Coronary Disease-Associated Artery/Lesion type: [place] artery [place] vs. 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 (7) History of kidney transplant Plan: Failed. 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 (8) ESRD needing dialysis Plan: Plan for dialysis in the morning. Orders have been placed. (9) C. difficile colitis Plan: Positive serology. Put on Flagyl. Monitor.
[2017-06-02] MEDS: TAMSULOSIN HCL 0.4 MG CAP.SR.24H PO SCH (17:06)
[2017-06-02] MEDS ORDERED: NITROGLYCERIN 0.4 MG/TAB 25 TAB/BOTTLE SL PRN (17:15)
[2017-06-02] MEDS: INSULIN LISPRO 100 UNIT/ML 3 ML VIAL SUBCUT SCH (19:24)
--- NOTE | 2017-06-02 19:35 | PDOC H&P ---
History of Present Illness Admission Date/PCP: 06/02/17 06:09 KEEGAN MONTENEGRO MD History of Present Illness: Patient 61-year-old male with history of end-stage renal disease on maintenance hemodialysis, he recently started hemodialysis April this year, history of a failed kidney transplant he apparently had urinary symptoms urine culture was done outpatient he was diagnosed with ESBL E. coli he was then referred to the emergency room to be admitted directly to the hospital for management. The organism is only sensitive to carbapem class of drug which is administered intravenously. He also have diarrhea positive for C. difficile toxin. He also complained of an infection in his left foot he told me that he was diagnosed with cellulitis of the left foot, I inspected the foot there is clearly ongoing infection of the foot with e exfoliation I suspect osteomyelitis, MRI would be ordered. 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 Past Medical History Cardiac Medical History: Reports: Congestive Heart Failure, Coronary Artery Disease, Myocardial Infarction, Hyperlipidema, Hypertension Pulmonary Medical History: Reports: Asthma, Chronic Obstructive Pulmonary Disease (COPD), Intubation, Pneumonia - GBS, Respiratory Failure, Sleep Apnea - On C Pap Endocrine Medical History: Reports: Diabetes Mellitus Type 1, Diabetes Mellitus Type 2 Renal/ Medical History: Reports: End Stage Renal Disease Psychiatric Medical History: Denies: Depression Infectious Medical History: Reports: Clostridium Difficile Past Surgical History Past Surgical History: Reports: Coronary Artery Bypass Graft - Quadruple bypass 2007, Renal Transplant - Failed. 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, recurrent UTI and obstructive uropathy., Other - History peritoneal dialysis catheter placement and removal Social History Lives with: Family Smoking Status: Never Smoker Frequency of Alcohol Use: None Hx Recreational Drug Use: No Drugs: None Hx Prescription Drug Abuse: No - Advance Directive Resuscitation Status: Full Code Family History Family History: CAD, None, Reviewed & Not Pertinent Parental Family History Reviewed: Yes Children Family History Reviewed: Yes Sibling(s) Family History Reviewed.: Yes Medication/Allergy Home Medications: Ascorbic Acid [Vitamin C] 250 mg PO DAILY 06/02/17 Atorvastatin Calcium [Lipitor 10 mg Tablet] 10 mg PO DAILY 06/02/17 B Complex & C No.20/Folic Acid [Nephrocaps Softgel] 1 mg PO DAILY 06/02/17 Clonazepam [Klonopin] 0.25 mg PO BID 06/02/17 Ergocalciferol (Vitamin D2) [Drisdol 50,000 unit (1.25MG) Capsule] 50,000 units PO WE 06/02/17 Ferrous Sulfate [Feosol 325 mg Tablet] 325 mg PO DAILY 06/02/17 Hydralazine HCl [Apresoline 25 mg Tablet] 25 mg PO Q8 06/02/17 Insulin Glargine,Hum.rec.anlog [Lantus Solostar] 3 units SQ QHS 06/02/17 Insulin Lispro [Humalog] 4 units SQ TID 06/02/17 Isosorbide Mononitrate [Imdur 30 mg Tablet.er] 30 mg PO DAILY 06/02/17 Metoprolol Tartrate [Lopressor 50 mg Tablet] 50 mg PO Q12 06/02/17 Nitroglycerin [Nitrostat 0.4 mg (1/150 Gr) Tabs 25/Bottle] 0.4 mg SL Q5MP PRN Omeprazole 20 mg PO DAILY 06/02/17 Prednisone [Deltasone 5 mg Tablet] 5 mg PO DAILY 06/02/17 Tamsulosin HCl [Flomax 0.4 mg Cap.sr] 0.4 mg PO WSUPPER 06/02/17 Allergies/Adverse Reactions: No Known Allergies Allergy (Verified 05/08/17 18:04) Review of Systems Constitutional: PRESENT: fatigue Eyes: ABSENT: visual disturbances Ears: ABSENT: hearing changes Cardiovascular: ABSENT: chest pain, dyspnea on exertion, edema, orthropnea, palpitations Respiratory: ABSENT: cough, hemoptysis Gastrointestinal: PRESENT: diarrhea Genitourinary: PRESENT: dysuria Musculoskeletal: ABSENT: joint swelling Integumentary: ABSENT: rash, wounds Neurological: PRESENT: paresthesias Psychiatric: ABSENT: anxiety, depression, homidical ideation, suicidal ideation Endocrine: ABSENT: cold intolerance, heat intolerance, menstrual abnormalities, polydipsia, polyuria Hematologic/Lymphatic: ABSENT: easy bleeding, easy bruising, lymphadenopathy Physical Exam Vital Signs: Temp Pulse Resp BP Pulse Ox 98.7 F 67 18 185/63 H 100 06/02/17 16:08 06/02/17 16:08 06/02/17 16:08 06/02/17 16:08 06/02/17 16:08 Intake & Output 07/17/17 07/18/17 07/19/17 06:59 06:59 06:59 Intake Total 420 Balance 420 General appearance: PRESENT: no acute distress, well-developed, well-nourished Head exam: PRESENT: atraumatic, normocephalic Eye exam: PRESENT: conjunctiva pink, EOMI, PERRLA Ear exam: PRESENT: normal external ear exam Mouth exam: PRESENT: moist, tongue midline Neck exam: PRESENT: full ROM. ABSENT: carotid bruit, JVD, lymphadenopathy, thyromegaly Respiratory exam: PRESENT: clear to auscultation jolie Cardiovascular exam: PRESENT: RRR, +S1, +S2 GI/Abdominal exam: PRESENT: normal bowel sounds, soft Rectal exam: PRESENT: deferred Extremities exam: PRESENT: other - There is exfoliation of the skin of the left foot, redness with drainage consistent with infection Neurological exam: PRESENT: alert Psychiatric exam: PRESENT: appropriate affect, normal mood Skin exam: PRESENT: dry, intact, warm Results Laboratory Results: 06/02/17 06:47 06/02/17 06:47 06/02/17 06/02/17 06:47 06:47 WBC 10.6 H RBC 3.88 L Hgb 12.1 L Hct 36.4 L MCV 94 MCH 31.2 MCHC 33.2 RDW 16.9 H Plt Count 249 Sodium 142.6 Potassium 3.2 L Chloride 105 Carbon Dioxide 25 Anion Gap 13 BUN 35 H Creatinine 2.76 H Est GFR ( Amer) 28 L Est GFR (Non-Af Amer) 24 L Glucose 104 Calcium 8.4 Impressions: Chest X-Ray 06/01/17 20:16 IMPRESSION: Cardiac enlargement. No overt failure. Assessment & Plan - Diagnosis (1) UTI due to extended-spectrum beta lactamase (ESBL) producing Escherichia coli Is this a current diagnosis for this admission?: YesPlan: Patient will be started on intravenous ertapenem (2) C. difficile colitis Is this a current diagnosis for this admission?: YesPlan: Patient will be started on p.o. 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
--- NOTE | 2017-06-02 21:09 | RADIOLOGY REPORT (SQ) ---
EXAM DESCRIPTION: MRI LT LOWER EXTREMITY WITHOUT COMPLETED DATE/TIME: 06/02/2017 8:56 pm REASON FOR STUDY: R/O osteomyelitis of left foot COMPARISON: No comparisons available, radiographs should additionally be performed to completely alex luate. TECHNIQUE: Noncontrast imaging of the ankle and hindfoot. Multiplanar T1 and STIR. FINDINGS: Marrow signal: No marrow edema or cortical erosions or irregularity suggested. No eviden ce of overt fracture. Mortise relatively maintained. Soft tissues: Generalized subcutaneous edema about the ankle, particularly laterally. This extends over the foot. No focal drainable collections are evident. Mild edema throughout the plantar foot m usculature. Achilles tendinosis. No gross ligament disruption. Medial and lateral tendons look gen erally intact. IMPRESSION: 1. No evidence of osteomyelitis. 2. Cellulitis. 3. Achilles tendinosis. TECHNICAL DOCUMENTATION: JOB ID: [id number] [employer]- All Rights Reserved
[2017-06-02 21:52] LABS: LIPASE 90.4 U/L (23-300); MAGNESIUM 1.6 mg/dL (1.6-2.3); PHOSPHORUS 5.9 mg/dL (2.5-4.5)
[2017-06-02] MEDS ORDERED: INSULIN GLARGINE,HUM.REC.ANLOG 300 UNIT/3 ML INSULN.PEN SUBCUT SCH (22:00)
[2017-06-02 22:23] LABS: THYROID STIMULATING HORMONE 0.67 uIU/mL (0.47-4.68)
[2017-06-02] MEDS: ATORVASTATIN CALCIUM 10 MG TABLET PO SCH (22:25)
[2017-06-02] MEDS: CLONAZEPAM 1 MG TABLET PO SCH (22:25)
[2017-06-02] MEDS: HEPARIN SOD (PORCINE) 5,000 UNIT/ML 1 ML SYRINGE SUBCUT SCH (22:25)
[2017-06-02] MEDS: METOPROLOL TARTRATE 50 MG TABLET PO SCH (22:26)
[2017-06-02] MEDS: ERTAPENEM SODIUM 1 GM in NORMAL SALINE 50 ML IV SCH (22:26)
[2017-06-02] MEDS: HYDRALAZINE HCL 25 MG TABLET PO SCH (22:27)
[2017-06-02] MEDS ORDERED: INSULIN GLARGINE,HUM.REC.ANLOG 1,000 UNIT/10 ML UNIT SUBCUT ONE (22:30)
[2017-06-03 03:37] LABS: HEMOGLOBIN 11.8 g/dL (13.5-17.0); HGB HCT DIFFERENCE -0.6; MEAN CORPUSCULAR HEMOGLOBIN 30.5 pg (27.0-33.4); MEAN CORPUSCULAR HGB CONC 32.8 g/dL (32.0-36.0); MEAN CORPUSCULAR VOLUME 93 fl (80-97); RED BLOOD COUNT 3.87 10^6/uL (4.35-5.55)
[2017-06-03 03:43] LABS: ALANINE AMINOTRANSFERASE 31 U/L (21-72); ALBUMIN 2.7 g/dL (3.5-5.0); ALKALINE PHOSPHATASE 113 U/L (38-126); ANION GAP 13 (5-19); ASPARTATE AMINO TRANSFERASE 45 U/L (17-59); BILIRUBIN,DIRECT 0.7 mg/dL (0.0-0.4); BILIRUBIN,TOTAL 0.7 mg/dL (0.2-1.3); BLOOD UREA NITROGEN 44 mg/dL (7-20); CALCIUM 8.6 mg/dL (8.4-10.2); CARBON DIOXIDE 22 mmol/L (22-30); CHLORIDE 107 mmol/L (98-107); CHOLESTEROL 204.25 mg/dL (0-200); CREATINE KINASE 53 U/L (55-170); CREATININE RESULT 3.47 mg/dL (0.52-1.25); Direct HDL 12 mg/dL (>40); GLUCOSE 86 mg/dL (75-110); POTASSIUM 3.4 mmol/L (3.6-5.0); SODIUM 142.2 mmol/L (137-145); TOTAL PROTEIN 7.1 g/dL (6.3-8.2); TRIGLYCERIDES 199 mg/dL (<150)
[2017-06-03 03:54] LABS: DIRECT LDL 141 mg/dL (<100)
[2017-06-03 04:22] LABS: VLDL CHOLESTEROL 39.8 mg/dL (10-31)
[2017-06-03] MEDS ORDERED: NORMAL SALINE 1000 ML 1,000 ML IV PRN (05:00)
[2017-06-03] MEDS: HYDRALAZINE HCL 25 MG TABLET PO SCH ×3 (05:05→23:04)
[2017-06-03] MEDS: HEPARIN SOD (PORCINE) 5,000 UNIT/ML 1 ML SYRINGE SUBCUT SCH ×3 (05:26→23:04)
[2017-06-03] MEDS: METRONIDAZOLE 500 MG TABLET PO SCH ×3 (05:26→23:04)
--- NOTE | 2017-06-03 06:50 | RADIOLOGY REPORT (SQ) ---
EXAM DESCRIPTION: U/S RETROPERITON LTD COMPLETED DATE/TIME: 06/03/2017 6:32 am REASON FOR STUDY: recurrent UTI in failed renal transplant ptn COMPARISON: None. TECHNIQUE: Dynamic and static grayscale images acquired of the kidneys and bladder and recorded on P ACS. Additional selected color Doppler and spectral images recorded. LIMITATIONS: None. FINDINGS: RIGHT KIDNEY: 9.1 cm. Increased echogenicity. No solid or suspicious masses. No hyd ronephrosis. No calcifications. LEFT KIDNEY: 7.6 cm. Increased echogenicity. No solid or suspicious masses. No hydronephrosis. No calcifications. TRANSPLANT KIDNEY: Located in the right lower quadrant. Normal size. Normal echogenicity. Patent renal vessels. No solid or suspicious masses. Mild hydronephrosis. No calcifications. BLADDER: Debris in the bladder. OTHER FINDINGS: No other significant finding. IMPRESSION: ATROPHIC MASHPEE KIDNEYS WITH INCREASED ECHOGENICITY. SMALL AMOUNT OF DEBRIS IN THE BLAD LISA. MILD HYDRONEPHROSIS OF THE TRANSPLANT KIDNEY. TECHNICAL DOCUMENTATION: JOB ID: [id number] [employer] [place]- All Rights Reserved
[2017-06-03] MEDS: FOLIC ACID/VITAMIN B COMP W-C CAPSULE PO SCH (09:22)
[2017-06-03] MEDS: METOPROLOL TARTRATE 50 MG TABLET PO SCH ×2 (09:22→23:04)
[2017-06-03] MEDS: PREDNISONE 5 MG TABLET PO SCH (09:22)
[2017-06-03] MEDS: LANSOPRAZOLE 15 MG TAB.RAP.DR PO SCH (09:23)
[2017-06-03] MEDS: ASCORBIC ACID 500 MG TABLET PO SCH (09:25)
[2017-06-03] MEDS: CLONAZEPAM 1 MG TABLET PO SCH ×2 (09:26→23:06)
[2017-06-03] MEDS: FERROUS SULFATE 325 MG TABLET PO SCH (10:00)
[2017-06-03] MEDS: ISOSORBIDE MONONITRATE 30 MG TAB.ER.24H PO SCH (10:00)
[2017-06-03] MEDS: INSULIN LISPRO 100 UNIT/ML 3 ML VIAL SUBCUT SCH ×3 (10:00→18:00)
[2017-06-03] MEDS ORDERED: ERGOCALCIFEROL (VITAMIN D2) 50000 UNIT (1.25 MG) CAPSULE PO SCH (10:00)
--- NOTE | 2017-06-03 10:20 | Physician Advisory Note ---
Physician Advisor ProgressNote .: [facility] to [facility], I have reviewed the medical record for this patient. Physician Advisor Statement: Please consider documentin. "Chronic diastolic CHF" 2. "Anemia of CKD" 3. 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 Also c/o'd recent diarrhea, was (+) C.diff but neg stool WBC. H&P and consult now available. Pt with very complicated hx r.e. renal transplant complicated by CMV viremia, LGBS, recurrent UTIs, then ____ toxicity & obstruction. Regulatory Specialist notes pt currently still dialyzing via Lt IJ catheter, and "has signs & symptoms of exit site infection". He has a Lt foot cellulitis with desquamation that concerned attending for possible osteomyelitis. Attending ordered IV ertapenem, po Flagyl, consulted nephrol to continue HD, & surgery consult r.e. the fistula that was planned to be done as outpt 06/02, then MRI of foot. VSS except some HTN. A1C 04/22. WBC 9.8 & 10.6 & now up to 11.0 despite abx tx. K down from 3.5 to 3.2 but the up to 3.4. Cr up from 2.3 to 2.76 to 3.47, while awaiting HD. Nursing notes of 06/02 also indicate (+) stage 1 sacral & perineal skin breakdown , Rt chest portacath present, bladder incontinence with purulent yellow/green thick urine, and diarrhea. His C. diff colitis is likely to worsen with abx tx of the other infxns, which still must be done. He is developing leukocytosis, concerning for at least 1 of his infections getting worse. He has multiple infections, which are more dangerous to him given his multiple venous access areas & needs. His IJ cannot be left in for an extended period for risk of infection (as above , he may already have developed infection there, too), with increased risk from this and other infection areas seeding the bloodstream and producing bacteremia +/- sepsis. He needs AV fistula placed and matured for long-term dialysis access, but this cannot yet be done with evidence of current infection. His obstructive issues, with ultrasound today showing mild hydronephrosis of transplant kidney ([place] kidneys atrophic), further contribute to risk for kidney infection & difficulty clearing same. His diabetes further increases the risk for infection & difficulty fighting infection. He remains additionally immune-compromised by ongoing immune suppression tx required for him to not reject the transplanted kidney, further raising the risks for morbidity & mortality with any 1 infection - that much more so with several infections at once. Appropriate for Inpatient status due to high risks for morbidity/mortality if not monitored very closely in hospital while tx'ing at this time. CK
[2017-06-03] MEDS ORDERED: HEPARIN SOD (PORCINE) 1,000 UNIT/ML 10 ML VIAL IV PRN (15:10)
[2017-06-03] MEDS: TAMSULOSIN HCL 0.4 MG CAP.SR.24H PO SCH ×2 (17:00→18:00)
--- NOTE | 2017-06-03 17:45 | PDOC PROGRESS REPORT ---
Subjective Progress Note for:: 06/03/17 Subjective:: Patient was seen on dialysis this afternoon. He is undergoing dialysis without any issues.Orders were discussed with the treating nurse. Vital signs are stable. Patient admits to ongoing dysuria without any hematuria. He denies any history of fever chills or riders of abdominal pains. He does have symptoms of prostatitism.Yesterday had put him on Flomax which he now says he was taking at home as well.He says Judge catheter use and UTI and therefore he is not happy to have a Judge catheter placed in them today.He had renal ultrasound done which shows mild hydronephrosis of the transplanted kidney. He has seen urology in [place] but is yet to establish with a urologist here in [facility].Blood sugars are variable. Physical Exam Vital Signs: Temp Pulse Resp BP Pulse Ox 98.6 F 59 L 20 165/76 H 100 06/03/17 12:44 06/03/17 12:44 06/03/17 09:14 06/03/17 09:14 06/03/17 12:44 Intake & Output 06/02/17 06/03/17 06/04/17 06:59 06:59 06:59 Intake Total 640 Output Total 0 700 Balance 640 -700 Weight 63.9 kg General appearance: PRESENT: no acute distress Respiratory exam: PRESENT: clear to auscultation jolie. ABSENT: crackles, rhonchi Cardiovascular exam: PRESENT: +S1, +S2 GI/Abdominal exam: PRESENT: normal bowel sounds, soft. ABSENT: organomegaly, tenderness Extremities exam: PRESENT: pedal edema - Trace on the right side and 1+ on the left side where he has also got a skin infection Neurological exam: PRESENT: alert, awake, oriented to person, oriented to place , oriented to time Results Laboratory Results: 06/03/17 03:22 06/03/17 03:22 06/02/17 06/02/17 06/02/17 21:20 21:20 21:20 WBC RBC Hgb Hct MCV MCH MCHC RDW Plt Count Sodium Potassium Chloride Carbon Dioxide Anion Gap BUN Creatinine Est GFR ( Amer) Est GFR (Non-Af Amer) Glucose Calcium Phosphorus 5.9 H Magnesium 1.6 Total Bilirubin AST ALT Alkaline Phosphatase Ammonia 11.9 Total Protein Albumin Triglycerides Cholesterol LDL Cholesterol Direct VLDL Cholesterol HDL Cholesterol Amylase 78 Lipase 90.4 Prostate Specific Ag TSH 0.67 Free T4 1.77 06/03/17 06/03/17 03:22 03:22 WBC 11.0 H RBC 3.87 L Hgb 11.8 L Hct 36.0 L MCV 93 MCH 30.5 MCHC 32.8 RDW 17.0 H Plt Count 252 Sodium 142.2 Potassium 3.4 L Chloride 107 Carbon Dioxide 22 Anion Gap 13 BUN 44 H Creatinine 3.47 H Est GFR ( Amer) 22 L Est GFR (Non-Af Amer) 18 L Glucose 86 Calcium 8.6 Phosphorus Magnesium Total Bilirubin 0.7 AST 45 ALT 31 Alkaline Phosphatase 113 Ammonia Total Protein 7.1 Albumin 2.7 L Triglycerides 199 H Cholesterol 204.25 H LDL Cholesterol Direct 141 H VLDL Cholesterol 39.8 H HDL Cholesterol 12 L Amylase Lipase Prostate Specific Ag 0.340 TSH Free T4 06/02/17 06/02/17 06/02/17 21:20 21:20 21:20 Creatine Kinase 64 Troponin I 0.071 NT-Pro-B Natriuret Pep [id number] H 06/03/17 06/03/17 06/03/17 03:22 03:22 10:00 Creatine Kinase 53 L 70 Troponin I 0.081 NT-Pro-B Natriuret Pep 06/03/17 10:00 Creatine Kinase Troponin I 0.080 NT-Pro-B Natriuret Pep Impressions: Chest X-Ray 06/01/17 20:16 IMPRESSION: Cardiac enlargement. No overt failure. Lower Extremity MRI 06/02/17 00:00 IMPRESSION: 1. No evidence of osteomyelitis. 2. Cellulitis. 3. Achilles tendinosis. Renal Ultrasound 06/03/17 00:00 IMPRESSION: ATROPHIC [place] KIDNEYS WITH INCREASED ECHOGENICITY. SMALL AMOUNT OF DEBRIS IN THE BLADDER. MILD HYDRONEPHROSIS OF THE TRANSPLANT KIDNEY. Assessment & Plan - Diagnosis (1) UTI due to extended-spectrum beta lactamase (ESBL) producing Escherichia coli Is this a current diagnosis for this admission?: YesPlan: Patient began on ertapenem. Monitor needs evaluation by urologist to look at obstructive uropathy symptoms most likely from enlarged prostate. States he gets worsening UTI with introduction of any kind of bladder catheters.Will therefore avoid placement of a Judge catheter and instead get a pre-and post void bladder scan for residuals. (2) Obstructive uropathy Plan: As mentioned earlier. 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 (4) Anemia in chronic kidney disease (CKD) Plan: Stable no indication for erythropoietin now. Monitor. (5) Coronary artery disease Qualifiers: Coronary Disease-Associated Artery/Lesion type: [place] artery [place] vs. transplanted heart: [place] heart Associated angina: without angina Qualified Code(s): I25.10 - Atherosclerotic heart disease of [place] coronary artery without angina pectoris (6) Diabetes mellitus, type II Qualifiers: Diabetes mellitus complication status: with unspecified complications Diabetes mellitus extermination inspector insulin use: without prison use Qualified Code(s): E11.8 - Type 2 diabetes mellitus with unspecified complications; Z79.4 - rodent exterminator (current) use of insulin Plan: Advised on diet . Uncontrolled. (7) History of kidney transplant Plan: Failed. History of [employer] SHRINKING TESTER toxicity, obstructive uropathy, recurrent UTI. (8) ESRD needing dialysis Plan: He was seen on dialysis.No issues. Vital signs are stable. We will plan to remove about 500 cc on ultrafiltration. Discuss orders with treating nurse. (9) C. difficile colitis Plan: Positive serology. Put on Flagyl. Monitor. (10) Cellulitis of left leg Plan: On antibiotics and being managed by Dr. Partida.
--- NOTE | 2017-06-03 20:12 | PDOC PROGRESS REPORT ---
Subjective Progress Note for:: 06/03/17 Subjective:: Patient was seen by the bedside, he was seen by the auto dealer Dr. Tavares, he has triple infection, UTI with ESBL E. coli, C. difficile colitis and also cellulitis of the left foot MRI of the foot was done osteomyelitis was rule out Physical Exam Vital Signs: Temp Pulse Resp BP Pulse Ox 98.5 F 64 18 143/66 H 100 06/03/17 16:08 06/03/17 16:08 06/03/17 16:08 06/03/17 16:08 06/03/17 16:08 Intake & Output 06/02/17 06/03/17 06/04/17 06:59 06:59 06:59 Intake Total 640 Output Total 0 700 Balance 640 -700 Weight 63.9 kg General appearance: PRESENT: no acute distress Eye exam: PRESENT: PERRLA Respiratory exam: PRESENT: clear to auscultation jolie Cardiovascular exam: PRESENT: +S1, +S2 GI/Abdominal exam: PRESENT: soft Results Laboratory Results: 06/03/17 03:22 06/03/17 03:22 06/02/17 06/02/17 06/02/17 21:20 21:20 21:20 WBC RBC Hgb Hct MCV MCH MCHC RDW Plt Count Sodium Potassium Chloride Carbon Dioxide Anion Gap BUN Creatinine Est GFR ( Amer) Est GFR (Non-Af Amer) Glucose Calcium Phosphorus 5.9 H Magnesium 1.6 Total Bilirubin AST ALT Alkaline Phosphatase Ammonia 11.9 Total Protein Albumin Triglycerides Cholesterol LDL Cholesterol Direct VLDL Cholesterol HDL Cholesterol Amylase 78 Lipase 90.4 Prostate Specific Ag TSH 0.67 Free T4 1.77 06/03/17 06/03/17 03:22 03:22 WBC 11.0 H RBC 3.87 L Hgb 11.8 L Hct 36.0 L MCV 93 MCH 30.5 MCHC 32.8 RDW 17.0 H Plt Count 252 Sodium 142.2 Potassium 3.4 L Chloride 107 Carbon Dioxide 22 Anion Gap 13 BUN 44 H Creatinine 3.47 H Est GFR ( Amer) 22 L Est GFR (Non-Af Amer) 18 L Glucose 86 Calcium 8.6 Phosphorus Magnesium Total Bilirubin 0.7 AST 45 ALT 31 Alkaline Phosphatase 113 Ammonia Total Protein 7.1 Albumin 2.7 L Triglycerides 199 H Cholesterol 204.25 H LDL Cholesterol Direct 141 H VLDL Cholesterol 39.8 H HDL Cholesterol 12 L Amylase Lipase Prostate Specific Ag 0.340 TSH Free T4 06/02/17 06/02/17 06/02/17 21:20 21:20 21:20 Creatine Kinase 64 Troponin I 0.071 NT-Pro-B Natriuret Pep [id number] H 06/03/17 06/03/17 06/03/17 03:22 03:22 10:00 Creatine Kinase 53 L 70 Troponin I 0.081 NT-Pro-B Natriuret Pep 06/03/17 10:00 Creatine Kinase Troponin I 0.080 NT-Pro-B Natriuret Pep Impressions: Chest X-Ray 06/01/17 20:16 IMPRESSION: Cardiac enlargement. No overt failure. Lower Extremity MRI 06/02/17 00:00 IMPRESSION: 1. No evidence of osteomyelitis. 2. Cellulitis. 3. Achilles tendinosis. Renal Ultrasound 06/03/17 00:00 IMPRESSION: ATROPHIC [place] KIDNEYS WITH INCREASED ECHOGENICITY. SMALL AMOUNT OF DEBRIS IN THE BLADDER. MILD HYDRONEPHROSIS OF THE TRANSPLANT KIDNEY. Assessment & Plan - Diagnosis (1) UTI due to extended-spectrum beta lactamase (ESBL) producing Escherichia coli Is this a current diagnosis for this admission?: Yes (2) C. 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
[2017-06-03] MEDS: INSULIN GLARGINE,HUM.REC.ANLOG 1,000 UNIT/10 ML UNIT SUBCUT SCH (23:03)
[2017-06-03] MEDS: ATORVASTATIN CALCIUM 10 MG TABLET PO SCH (23:04)
[2017-06-03] MEDS: ERTAPENEM SODIUM 1 GM in NORMAL SALINE 50 ML IV SCH (23:04)
[2017-06-04 00:16] LABS: APPEARANCE,URINE TURBID; BILIRUBIN,URINE NEGATIVE (NEGATIVE); GLUCOSE, URINE NEGATIVE (NEGATIVE); KETONES,URINE NEGATIVE (NEGATIVE); LEUKOCYTE ESTERASE,URINE MODERATE (NEGATIVE); NITRITE,URINE NEGATIVE (NEGATIVE); PROTEIN,URINE 100 mg/dL (NEGATIVE); URINE SPECIFIC GRAVITY 1.012; UROBILINOGEN,URINE NEGATIVE mg/dL (<2.0)
[2017-06-04 00:26] LABS: URINE METHADONE SCREEN NEGATIVE; URINE OPIATES LOW NEGATIVE; URINE PHENCYCLIDINE SCREEN NEGATIVE
[2017-06-04 00:34] LABS: URINE BARBITURATES SCREEN NEGATIVE
[2017-06-04] MEDS: METRONIDAZOLE 500 MG TABLET PO SCH ×2 (05:50→14:29)
[2017-06-04] MEDS: HYDRALAZINE HCL 25 MG TABLET PO SCH ×2 (05:50→14:28)
[2017-06-04] MEDS: HEPARIN SOD (PORCINE) 5,000 UNIT/ML 1 ML SYRINGE SUBCUT SCH ×2 (05:50→14:30)
[2017-06-04 06:38] LABS: ABSOLUTE BASOPHILS # (AUTO) 0.1 10^3/uL (0.0-0.2); ABSOLUTE EOSINOPHILS # (AUTO) 0.5 10^3/uL (0.0-0.6); ABSOLUTE LYMPHOCYTES (AUTO) 5.6 10^3/uL (0.5-4.7); ABSOLUTE MONOCYTES (AUTO) 1.9 10^3/uL (0.1-1.4); ABSOLUTE NEUT (AUTO) 3.5 10^3/uL (1.7-8.2); BASOPHILS % (AUTO) 0.7 % (0-2); EOSINOPHILS % (AUTO) 4.2 % (0-6); HEMATOCRIT 36.8 % (37.9-51.0); HGB HCT DIFFERENCE -0.8; LYMPHOCYTES % (AUTO) 48.5 % (13-45); MEAN CORPUSCULAR HEMOGLOBIN 30.4 pg (27.0-33.4); MEAN CORPUSCULAR HGB CONC 32.8 g/dL (32.0-36.0); MEAN CORPUSCULAR VOLUME 93 fl (80-97); MONOCYTES % (AUTO) 16.4 % (3-13); RED BLOOD COUNT 3.96 10^6/uL (4.35-5.55); RED CELL DISTRIBUTION WIDTH 16.7 % (11.5-14.0); SEGMENTED NEUTROPHILS % (AUTO) 30.2 % (42-78); WHITE BLOOD COUNT 11.6 10^3/uL (4.0-10.5)
[2017-06-04] MEDS: ASCORBIC ACID 500 MG TABLET PO SCH (10:29)
[2017-06-04] MEDS: LANSOPRAZOLE 15 MG TAB.RAP.DR PO SCH (10:30)
[2017-06-04] MEDS: FOLIC ACID/VITAMIN B COMP W-C CAPSULE PO SCH (10:30)
[2017-06-04] MEDS: ISOSORBIDE MONONITRATE 30 MG TAB.ER.24H PO SCH (10:30)
[2017-06-04] MEDS: METOPROLOL TARTRATE 50 MG TABLET PO SCH (10:31)
[2017-06-04] MEDS: FERROUS SULFATE 325 MG TABLET PO SCH (10:31)
[2017-06-04] MEDS: PREDNISONE 5 MG TABLET PO SCH (10:31)
[2017-06-04] MEDS: CLONAZEPAM 1 MG TABLET PO SCH (10:32)
[2017-06-04] MEDS: INSULIN LISPRO 100 UNIT/ML 3 ML VIAL SUBCUT SCH ×2 (10:33→17:32)
[2017-06-04] MEDS: TAMSULOSIN HCL 0.4 MG CAP.SR.24H PO SCH (17:32)
--- NOTE | 2017-06-04 22:05 | PDOC PROGRESS REPORT ---
Subjective Progress Note for:: 06/04/17 Subjective:: He was seen by the bedside he has abscess of the left foot that is draining consultation will be requested from surgery for I&D Physical Exam Vital Signs: Temp Pulse Resp BP Pulse Ox 98.7 F 67 17 124/53 L 99 06/04/17 19:39 06/04/17 19:39 06/04/17 19:39 06/04/17 19:39 06/04/17 19:39 Intake & Output 06/03/17 06/04/17 06/05/17 06:59 06:59 06:59 Intake Total 640 300 60 Output Total 0 900 Balance 640 -600 60 Weight 63.9 kg 63.8 kg General appearance: PRESENT: no acute distress Eye exam: PRESENT: PERRLA Respiratory exam: PRESENT: clear to auscultation jolie Cardiovascular exam: PRESENT: +S1, +S2 GI/Abdominal exam: PRESENT: soft Neurological exam: PRESENT: alert Results Laboratory Results: 06/04/17 04:52 06/03/17 03:22 06/03/17 06/04/17 23:00 04:52 WBC 11.6 H RBC 3.96 L Hgb 12.0 L Hct 36.8 L MCV 93 MCH 30.4 MCHC 32.8 RDW 16.7 H Plt Count 247 Seg Neutrophils % 30.2 L Lymphocytes % 48.5 H Monocytes % 16.4 H Eosinophils % 4.2 Basophils % 0.7 Absolute Neutrophils 3.5 Absolute Lymphocytes 5.6 H Absolute Monocytes 1.9 H Absolute Eosinophils 0.5 Absolute Basophils 0.1 Urine Color YELLOW Urine Appearance TURBID Urine pH 7.0 Ur Specific [place] 1.012 Urine Protein 100 H Urine Glucose (UA) NEGATIVE Urine Ketones NEGATIVE Urine Blood NEGATIVE Urine Nitrite NEGATIVE Ur Leukocyte Esterase MODERATE H Urine WBC (Auto) >182 Urine RBC (Auto) 36 06/02/17 06/02/17 06/02/17 21:20 21:20 21:20 Creatine Kinase 64 Troponin I 0.071 NT-Pro-B Natriuret Pep 28008 H 06/03/17 06/03/17 06/03/17 03:22 03:22 10:00 Creatine Kinase 53 L 70 Troponin I 0.081 NT-Pro-B Natriuret Pep 06/03/17 10:00 Creatine Kinase Troponin I 0.080 NT-Pro-B Natriuret Pep Impressions: Chest X-Ray 06/01/17 20:16 IMPRESSION: Cardiac enlargement. No overt failure. Lower Extremity MRI 06/02/17 00:00 IMPRESSION: 1. No evidence of osteomyelitis. 2. Cellulitis. 3. Achilles tendinosis. Renal Ultrasound 06/03/17 00:00 IMPRESSION: ATROPHIC [place] KIDNEYS WITH INCREASED ECHOGENICITY. SMALL AMOUNT OF DEBRIS IN THE BLADDER. MILD HYDRONEPHROSIS OF THE TRANSPLANT KIDNEY. Assessment & Plan - Diagnosis (1) UTI due to extended-spectrum beta lactamase (ESBL) producing Escherichia coli Is this a current diagnosis for this admission?: Yes (2) C. 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
[2017-06-05] MEDS: HEPARIN SOD (PORCINE) 5,000 UNIT/ML 1 ML SYRINGE SUBCUT SCH ×4 (00:25→21:55)
[2017-06-05] MEDS: CLONAZEPAM 1 MG TABLET PO SCH ×3 (00:25→21:55)
[2017-06-05] MEDS: METOPROLOL TARTRATE 50 MG TABLET PO SCH ×3 (00:26→21:55)
[2017-06-05] MEDS: ATORVASTATIN CALCIUM 10 MG TABLET PO SCH ×2 (00:26→21:55)
[2017-06-05] MEDS: METRONIDAZOLE 500 MG TABLET PO SCH ×4 (00:26→21:55)
[2017-06-05] MEDS: HYDRALAZINE HCL 25 MG TABLET PO SCH ×4 (00:27→21:56)
[2017-06-05] MEDS: ERTAPENEM SODIUM 0.5 GM in NORMAL SALINE 50 ML IV SCH ×2 (00:27→21:56)
[2017-06-05] MEDS: INSULIN GLARGINE,HUM.REC.ANLOG 1,000 UNIT/10 ML UNIT SUBCUT SCH ×2 (00:28→21:45)
[2017-06-05 07:05] LABS: ABSOLUTE BASOPHILS # (AUTO) 0.1 10^3/uL (0.0-0.2); ABSOLUTE EOSINOPHILS # (AUTO) 0.4 10^3/uL (0.0-0.6); ABSOLUTE LYMPHOCYTES (AUTO) 5.9 10^3/uL (0.5-4.7); ABSOLUTE MONOCYTES (AUTO) 1.7 10^3/uL (0.1-1.4); ABSOLUTE NEUT (AUTO) 3.2 10^3/uL (1.7-8.2); BASOPHILS % (AUTO) 0.6 % (0-2); EOSINOPHILS % (AUTO) 3.2 % (0-6); HEMATOCRIT 35.1 % (37.9-51.0); HEMOGLOBIN 11.5 g/dL (13.5-17.0); HGB HCT DIFFERENCE -0.6; LYMPHOCYTES % (AUTO) 52.5 % (13-45); MEAN CORPUSCULAR HEMOGLOBIN 30.7 pg (27.0-33.4); MEAN CORPUSCULAR HGB CONC 32.8 g/dL (32.0-36.0); MEAN CORPUSCULAR VOLUME 94 fl (80-97); RED BLOOD COUNT 3.75 10^6/uL (4.35-5.55); RED CELL DISTRIBUTION WIDTH 17.2 % (11.5-14.0); SEGMENTED NEUTROPHILS % (AUTO) 28.7 % (42-78); WHITE BLOOD COUNT 11.3 10^3/uL (4.0-10.5)
[2017-06-05] MEDS: LANSOPRAZOLE 15 MG TAB.RAP.DR PO SCH (07:09)
[2017-06-05 08:21] LABS: ANION GAP 14 (5-19); BLOOD UREA NITROGEN 42 mg/dL (7-20); CALCIUM 8.2 mg/dL (8.4-10.2); CARBON DIOXIDE 24 mmol/L (22-30); CHLORIDE 103 mmol/L (98-107); CREATININE RESULT 3.95 mg/dL (0.52-1.25); GLUCOSE 99 mg/dL (75-110); POTASSIUM 3.7 mmol/L (3.6-5.0)
--- NOTE | 2017-06-05 08:45 | PDOC PROGRESS REPORT ---
Subjective Progress Note for:: 06/05/17 Subjective:: Patient was seen on dialysis this afternoon. He is undergoing dialysis without any issues.Orders were discussed with the treating nurse. Vital signs are stable. Patient has improved dysuria without any hematuria. He denies any history of fever chills or riders of abdominal pains. Physical Exam Vital Signs: Temp Pulse Resp BP Pulse Ox 98.1 F 62 18 109/49 L 100 06/05/17 07:35 06/05/17 07:35 06/05/17 07:35 06/05/17 07:35 06/05/17 07:35 Intake & Output 06/04/17 06/05/17 06/06/17 06:59 06:59 06:59 Intake Total 300 460 Output Total 900 100 Balance -600 360 Weight 63.8 kg 64.4 kg General appearance: PRESENT: no acute distress Respiratory exam: PRESENT: clear to auscultation jolie. ABSENT: crackles, rhonchi Cardiovascular exam: PRESENT: +S1, +S2 GI/Abdominal exam: PRESENT: normal bowel sounds, soft. ABSENT: organomegaly, tenderness Extremities exam: PRESENT: pedal edema - none on right and trace on left Neurological exam: PRESENT: awake, oriented to person, oriented to place Results Laboratory Results: 06/05/17 05:25 06/05/17 05:25 06/05/17 06/05/17 05:25 05:25 WBC 11.3 H RBC 3.75 L Hgb 11.5 L Hct 35.1 L MCV 94 MCH 30.7 MCHC 32.8 RDW 17.2 H Plt Count 248 Seg Neutrophils % 28.7 L Lymphocytes % 52.5 H Monocytes % 15.0 H Eosinophils % 3.2 Basophils % 0.6 Absolute Neutrophils 3.2 Absolute Lymphocytes 5.9 H Absolute Monocytes 1.7 H Absolute Eosinophils 0.4 Absolute Basophils 0.1 Sodium 141.0 Potassium 3.7 Chloride 103 Carbon Dioxide 24 Anion Gap 14 BUN 42 H Creatinine 3.95 H Est GFR ( Amer) 19 L Est GFR (Non-Af Amer) 16 L Glucose 99 Calcium 8.2 L 06/02/17 06/02/17 06/02/17 21:20 21:20 21:20 Creatine Kinase 64 Troponin I 0.071 NT-Pro-B Natriuret Pep 46006 H 07/06/03/17 06/03/17 03:22 03:22 10:00 Creatine Kinase 53 L 70 Troponin I 0.081 NT-Pro-B Natriuret Pep 06/03/17 10:00 Creatine Kinase Troponin I 0.080 NT-Pro-B Natriuret Pep Impressions: Chest X-Ray 06/01/17 20:16 IMPRESSION: Cardiac enlargement. No overt failure. Lower Extremity MRI 06/02/17 00:00 IMPRESSION: 1. No evidence of osteomyelitis. 2. Cellulitis. 3. Achilles tendinosis. Renal Ultrasound 06/03/17 00:00 IMPRESSION: ATROPHIC [place] KIDNEYS WITH INCREASED ECHOGENICITY. SMALL AMOUNT OF DEBRIS IN THE BLADDER. MILD HYDRONEPHROSIS OF THE TRANSPLANT KIDNEY. Assessment & Plan - Diagnosis (1) UTI due to extended-spectrum beta lactamase (ESBL) producing Escherichia coli Is this a current diagnosis for this admission?: YesPlan: Patient began on ertapenem. Monitor needs evaluation by urologist to look at obstructive uropathy symptoms most likely from enlarged prostate. States he gets worsening UTI with introduction of any kind of bladder catheters. (2) Obstructive uropathy Plan: As mentioned earlier. 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 (4) Anemia in chronic kidney disease (CKD) Plan: stable. (5) Coronary artery disease Qualifiers: Coronary Disease-Associated Artery/Lesion type: [place] artery [place] vs. transplanted heart: [place] heart Associated angina: without angina Qualified Code(s): I25.10 - Atherosclerotic heart disease of [place] coronary artery without angina pectoris (6) Diabetes mellitus, type II Qualifiers: Diabetes mellitus complication status: with unspecified complications Diabetes mellitus intermediate insulin use: without medical terminologist use Qualified Code(s): E11.8 - Type 2 diabetes mellitus with unspecified complications; Z79.4 - long term care administrator (current) use of insulin (8) ESRD needing dialysis Plan: He was seen on dialysis.No issues. Vital signs are stable. Plan no fluid removal on ultrafiltration. Discuss orders with treating nurse. (9) C. difficile colitis Plan: Positive serology. On Flagyl. Monitor. (10) Cellulitis of left leg Plan: On antibiotics and being managed by Dr. Partida.
[2017-06-05] MEDS ORDERED: HEPARIN SOD (PORCINE) 1,000 UNIT/ML 10 ML VIAL MC PRN (10:17)
[2017-06-05] MEDS: INSULIN LISPRO 100 UNIT/ML 3 ML VIAL SUBCUT SCH ×3 (10:31→17:28)
[2017-06-05] MEDS: PREDNISONE 5 MG TABLET PO SCH (11:18)
[2017-06-05] MEDS: ISOSORBIDE MONONITRATE 30 MG TAB.ER.24H PO SCH (11:18)
[2017-06-05] MEDS: FERROUS SULFATE 325 MG TABLET PO SCH (11:18)
[2017-06-05] MEDS: FOLIC ACID/VITAMIN B COMP W-C CAPSULE PO SCH (11:18)
[2017-06-05] MEDS: ASCORBIC ACID 500 MG TABLET PO SCH (11:18)
[2017-06-05] MEDS: TAMSULOSIN HCL 0.4 MG CAP.SR.24H PO SCH (18:35)
--- NOTE | 2017-06-05 22:08 | PDOC PROGRESS REPORT ---
Subjective Progress Note for:: 06/05/17 Subjective:: He has abscess of the left foot he will need I&D, he will continue present IV antibiotic Physical Exam Vital Signs: Temp Pulse Resp BP Pulse Ox 99.0 F 65 16 147/61 H 100 06/05/17 19:50 06/05/17 19:50 06/05/17 19:50 06/05/17 19:50 06/05/17 19:50 Intake & Output 06/04/17 06/05/17 06/06/17 06:59 06:59 06:59 Intake Total 300 460 920 Output Total 900 100 0 Balance -600 360 920 Weight 63.8 kg 64.4 kg Head exam: PRESENT: atraumatic, normocephalic Ear exam: PRESENT: normal external ear exam Mouth exam: PRESENT: moist, tongue midline Neck exam: PRESENT: full ROM Respiratory exam: PRESENT: clear to auscultation jolie Cardiovascular exam: PRESENT: RRR, +S1, +S2 Vascular exam: PRESENT: normal capillary refill GI/Abdominal exam: PRESENT: normal bowel sounds, soft Rectal exam: PRESENT: deferred Neurological exam: PRESENT: alert. ABSENT: motor sensory deficit Psychiatric exam: PRESENT: appropriate affect, normal mood Skin exam: PRESENT: dry, intact, warm. ABSENT: cyanosis, rash Results Laboratory Results: 06/05/17 05:25 06/05/17 05:25 06/05/17 06/05/17 05:25 05:25 WBC 11.3 H RBC 3.75 L Hgb 11.5 L Hct 35.1 L MCV 94 MCH 30.7 MCHC 32.8 RDW 17.2 H Plt Count 248 Seg Neutrophils % 28.7 L Lymphocytes % 52.5 H Monocytes % 15.0 H Eosinophils % 3.2 Basophils % 0.6 Absolute Neutrophils 3.2 Absolute Lymphocytes 5.9 H Absolute Monocytes 1.7 H Absolute Eosinophils 0.4 Absolute Basophils 0.1 Sodium 141.0 Potassium 3.7 Chloride 103 Carbon Dioxide 24 Anion Gap 14 BUN 42 H Creatinine 3.95 H Est GFR ( Amer) 19 L Est GFR (Non-Af Amer) 16 L Glucose 99 Calcium 8.2 L 06/02/17 20:50 Foot - Left Gram Stain - Final 06/02/17 06/02/17 06/02/17 21:20 21:20 21:20 Creatine Kinase 64 Troponin I 0.071 NT-Pro-B Natriuret Pep [id number] H 06/03/17 06/03/17 06/03/17 03:22 03:22 10:00 Creatine Kinase 53 L 70 Troponin I 0.081 NT-Pro-B Natriuret Pep 06/03/17 10:00 Creatine Kinase Troponin I 0.080 NT-Pro-B Natriuret Pep Impressions: Chest X-Ray 06/01/17 20:16 IMPRESSION: Cardiac enlargement. No overt failure. Lower Extremity MRI 06/02/17 00:00 IMPRESSION: 1. No evidence of osteomyelitis. 2. Cellulitis. 3. Achilles tendinosis. Renal Ultrasound 06/03/17 00:00 IMPRESSION: ATROPHIC [place] KIDNEYS WITH INCREASED ECHOGENICITY. SMALL AMOUNT OF DEBRIS IN THE BLADDER. MILD HYDRONEPHROSIS OF THE TRANSPLANT KIDNEY. Assessment & Plan - Diagnosis (1) UTI due to extended-spectrum beta lactamase (ESBL) producing Escherichia coli Is this a current diagnosis for this admission?: Yes (2) C. 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
[2017-06-06] MEDS: HEPARIN SOD (PORCINE) 5,000 UNIT/ML 1 ML SYRINGE SUBCUT SCH ×3 (05:28→21:49)
[2017-06-06] MEDS: METRONIDAZOLE 500 MG TABLET PO SCH ×3 (05:28→21:55)
[2017-06-06] MEDS: LANSOPRAZOLE 15 MG TAB.RAP.DR PO SCH (05:28)
[2017-06-06] MEDS: HYDRALAZINE HCL 25 MG TABLET PO SCH ×3 (05:28→21:40)
[2017-06-06] MEDS: INSULIN LISPRO 100 UNIT/ML 3 ML VIAL SUBCUT SCH ×3 (07:55→15:15)
[2017-06-06] MEDS ORDERED: LIDOCAINE 0.5% INJ-PF (5 MG/ML) 50 ML SDV ONE (08:45)
[2017-06-06] MEDS: METOPROLOL TARTRATE 50 MG TABLET PO SCH ×2 (10:05→21:40)
[2017-06-06] MEDS: PREDNISONE 5 MG TABLET PO SCH (10:06)
[2017-06-06] MEDS: ASCORBIC ACID 500 MG TABLET PO SCH (10:06)
[2017-06-06] MEDS: ISOSORBIDE MONONITRATE 30 MG TAB.ER.24H PO SCH (10:06)
[2017-06-06] MEDS: CLONAZEPAM 1 MG TABLET PO SCH ×2 (10:06→21:55)
[2017-06-06] MEDS: FERROUS SULFATE 325 MG TABLET PO SCH (10:06)
[2017-06-06] MEDS: FOLIC ACID/VITAMIN B COMP W-C CAPSULE PO SCH (10:06)
--- NOTE | 2017-06-06 10:59 | OPERATIVE REPORT E ---
Operative Report NAME: KATHRYN HURLEY : 1955 AGE: 61Y DATE OF SURGERY: 06/06/2017 ROOM: 421 PREOPERATIVE DIAGNOSIS: Abscess left medial malleolus. POSTOPERATIVE DIAGNOSIS: Abscess left medial malleolus. PROCEDURE: Excisional debridement of skin and subcutaneous tissue, evacuation of wound and packing. SURGEON: RODOLFO OBRIEN M.D. ANESTHESIA: Plain lidocaine 1%. COMPLICATIONS: None. ESTIMATED BLOOD LOSS: Scant. DRAINS: None. TISSUE REMOVED OR ALTERED: Nonviable tissue. SUMMARY OF PROCEDURE: Informed consent was obtained. Left ankle, medial aspect was exposed, skin prepped with Betadine, and anesthetized with 1% plain lidocaine. An an ellipse skin incision was made of the skin overlying the left medial malleolus. Purulent discharge was evacuated. Subcutaneous tissue broken up with hemostat, wound irrigated with peroxide, packed with a small portion of gauze. Dressing applied. Patient tolerated the procedure well. Dressing change will be initiated. RECOMMENDATIONS: Continue intravenous antibiotic therapy. DICTATING PHYSICIAN: RODOLFO OBRIEN M.D. [id number] PHY#: [id number] ID: [id number] JOB#: [id number] ACCT: [id number] cc:RODOLFO OBRIEN M.D. >
--- NOTE | 2017-06-06 17:16 | PDOC PROGRESS REPORT ---
Subjective Progress Note for:: 06/06/17 Subjective:: Patient was seen by the bedside, he had an I&D done today by the bedside by the surgeon Physical Exam Vital Signs: Temp Pulse Resp BP Pulse Ox 98.3 F 69 18 108/49 L 100 06/06/17 15:45 06/06/17 15:45 06/06/17 15:45 06/06/17 15:45 06/06/17 15:45 Intake & Output 06/05/17 06/06/17 06/07/17 06:59 06:59 06:59 Intake Total 460 920 Output Total 100 0 Balance 360 920 Weight 64.4 kg General appearance: PRESENT: no acute distress Eye exam: PRESENT: PERRLA Respiratory exam: PRESENT: clear to auscultation jolie Cardiovascular exam: PRESENT: +S2 Murmur grade: 3 GI/Abdominal exam: PRESENT: soft Results Laboratory Results: 06/05/17 05:25 06/05/17 05:25 06/02/17 20:50 Foot - Left Gram Stain - Final 06/02/17 06/02/17 06/02/17 21:20 21:20 21:20 Creatine Kinase 64 Troponin I 0.071 NT-Pro-B Natriuret Pep [id number] H 06/03/17 06/03/17 06/03/17 03:22 03:22 10:00 Creatine Kinase 53 L 70 Troponin I 0.081 NT-Pro-B Natriuret Pep 06/03/17 10:00 Creatine Kinase Troponin I 0.080 NT-Pro-B Natriuret Pep Impressions: Chest X-Ray 06/01/17 20:16 IMPRESSION: Cardiac enlargement. No overt failure. Lower Extremity MRI 06/02/17 00:00 IMPRESSION: 1. No evidence of osteomyelitis. 2. Cellulitis. 3. Achilles tendinosis. Renal Ultrasound 06/03/17 00:00 IMPRESSION: ATROPHIC [place] KIDNEYS WITH INCREASED ECHOGENICITY. SMALL AMOUNT OF DEBRIS IN THE BLADDER. MILD HYDRONEPHROSIS OF THE TRANSPLANT KIDNEY. Assessment & Plan - Diagnosis (1) UTI due to extended-spectrum beta lactamase (ESBL) producing Escherichia coli Is this a current diagnosis for this admission?: Yes (2) C. 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 Flagyl
[2017-06-06] MEDS: TAMSULOSIN HCL 0.4 MG CAP.SR.24H PO SCH (17:52)
[2017-06-06] MEDS: ATORVASTATIN CALCIUM 10 MG TABLET PO SCH (21:55)
[2017-06-06] MEDS: ERTAPENEM SODIUM 0.5 GM in NORMAL SALINE 50 ML IV SCH (21:56)
[2017-06-06] MEDS: INSULIN GLARGINE,HUM.REC.ANLOG 1,000 UNIT/10 ML UNIT SUBCUT SCH (22:47)
[2017-06-07] MEDS: HYDRALAZINE HCL 25 MG TABLET PO SCH ×3 (05:26→22:31)
[2017-06-07] MEDS: LANSOPRAZOLE 15 MG TAB.RAP.DR PO SCH (05:30)
[2017-06-07] MEDS: METRONIDAZOLE 500 MG TABLET PO SCH ×3 (05:30→22:29)
[2017-06-07] MEDS: HEPARIN SOD (PORCINE) 5,000 UNIT/ML 1 ML SYRINGE SUBCUT SCH ×3 (05:31→22:30)
[2017-06-07] MEDS: INSULIN LISPRO 100 UNIT/ML 3 ML VIAL SUBCUT SCH ×3 (08:26→16:19)
[2017-06-07] MEDS: FOLIC ACID/VITAMIN B COMP W-C CAPSULE PO SCH (10:47)
[2017-06-07] MEDS: ASCORBIC ACID 500 MG TABLET PO SCH (10:47)
[2017-06-07] MEDS: PREDNISONE 5 MG TABLET PO SCH (10:47)
[2017-06-07] MEDS: METOPROLOL TARTRATE 50 MG TABLET PO SCH ×2 (10:47→22:29)
[2017-06-07] MEDS: ISOSORBIDE MONONITRATE 30 MG TAB.ER.24H PO SCH (10:47)
[2017-06-07] MEDS: CLONAZEPAM 1 MG TABLET PO SCH ×2 (10:47→22:29)
[2017-06-07] MEDS: FERROUS SULFATE 325 MG TABLET PO SCH (10:48)
--- NOTE | 2017-06-07 14:38 | PDOC PROGRESS REPORT ---
Subjective Progress Note for:: 06/07/17 Subjective:: Patient was seen by the bedside, there is no new complaint Physical Exam Vital Signs: Temp Pulse Resp BP Pulse Ox 98.0 F 60 18 130/50 H 100 06/07/17 11:12 06/07/17 11:12 06/07/17 11:12 06/07/17 11:12 06/07/17 11:12 Intake & Output 06/06/17 06/07/17 06/08/17 06:59 06:59 06:59 Intake Total 920 760 200 Output Total 0 0 Balance 920 760 200 Weight 65.1 kg General appearance: PRESENT: no acute distress, well-developed, well-nourished Head exam: PRESENT: atraumatic, normocephalic Eye exam: PRESENT: conjunctiva pink, EOMI, PERRLA Ear exam: PRESENT: normal external ear exam Mouth exam: PRESENT: moist, tongue midline Neck exam: PRESENT: full ROM Cardiovascular exam: PRESENT: RRR, +S1, +S2 Murmur grade: 3 Vascular exam: PRESENT: normal capillary refill GI/Abdominal exam: PRESENT: normal bowel sounds, soft. ABSENT: distended, guarding, mass, organolmegaly, rebound, tenderness Rectal exam: PRESENT: deferred Neurological exam: PRESENT: alert, awake, oriented to person, oriented to place , oriented to time, oriented to situation, CN II-XII grossly intact. ABSENT: motor sensory deficit Psychiatric exam: PRESENT: appropriate affect, normal mood. ABSENT: homicidal ideation, suicidal ideation Skin exam: PRESENT: dry, intact, warm. ABSENT: cyanosis, rash Results Laboratory Results: 06/05/17 05:25 06/05/17 05:25 06/02/17 20:50 Foot - Left Gram Stain - Final 06/02/17 20:50 Foot - Left Wound Culture - Final Staphylococcus Aureus Acinetobacter Baumannii/Haem Skin Indira 06/02/17 06/02/17 06/02/17 21:20 21:20 21:20 Creatine Kinase 64 Troponin I 0.071 NT-Pro-B Natriuret Pep 58685 H 06/03/17 06/03/17 06/03/17 03:22 03:22 10:00 Creatine Kinase 53 L 70 Troponin I 0.081 NT-Pro-B Natriuret Pep 06/03/17 10:00 Creatine Kinase Troponin I 0.080 NT-Pro-B Natriuret Pep Impressions: Chest X-Ray 06/01/17 20:16 IMPRESSION: Cardiac enlargement. No overt failure. Lower Extremity MRI 06/02/17 00:00 IMPRESSION: 1. No evidence of osteomyelitis. 2. Cellulitis. 3. Achilles tendinosis. Renal Ultrasound 06/03/17 00:00 IMPRESSION: ATROPHIC [place] KIDNEYS WITH INCREASED ECHOGENICITY. SMALL AMOUNT OF DEBRIS IN THE BLADDER. MILD HYDRONEPHROSIS OF THE TRANSPLANT KIDNEY. Assessment & Plan - Diagnosis (1) UTI due to extended-spectrum beta lactamase (ESBL) producing Escherichia coli Is this a current diagnosis for this admission?: Yes (2) C. difficile colitis Is this a current diagnosis for this admission?: Yes (3) Cellulitis of left foot Is this a current diagnosis for this admission?: Yes (4) End stage renal disease Is this a current diagnosis for this admission?: Yes (5) Axonal GBS (Guillain-Jewett syndrome) Is this a current diagnosis for this admission?: Yes
[2017-06-07] MEDS: TAMSULOSIN HCL 0.4 MG CAP.SR.24H PO SCH (17:16)
[2017-06-07] MEDS: ATORVASTATIN CALCIUM 10 MG TABLET PO SCH (22:29)
[2017-06-07] MEDS: INSULIN GLARGINE,HUM.REC.ANLOG 1,000 UNIT/10 ML UNIT SUBCUT SCH (22:30)
[2017-06-07] MEDS: ERTAPENEM SODIUM 0.5 GM in NORMAL SALINE 50 ML IV SCH (22:30)
[2017-06-08] MEDS: HYDRALAZINE HCL 25 MG TABLET PO SCH ×3 (06:00→22:07)
[2017-06-08] MEDS: LANSOPRAZOLE 15 MG TAB.RAP.DR PO SCH (06:00)
[2017-06-08] MEDS: METRONIDAZOLE 500 MG TABLET PO SCH ×3 (06:00→22:06)
[2017-06-08] MEDS: HEPARIN SOD (PORCINE) 5,000 UNIT/ML 1 ML SYRINGE SUBCUT SCH ×3 (06:00→22:07)
[2017-06-08] MEDS: INSULIN LISPRO 100 UNIT/ML 3 ML VIAL SUBCUT SCH ×3 (08:22→17:29)
--- NOTE | 2017-06-08 08:47 | PDOC PROGRESS REPORT ---
Subjective Progress Note for:: 06/08/17 Subjective:: Patient is currently doing well denied any chest pain denied any shortness of the breath. Patient's on the wound status post surgery stable. Patient's currently taking the intrapartum IV which is sensitive to the current organism and the wound Physical Exam Vital Signs: Temp Pulse Resp BP Pulse Ox 98.1 F 63 18 152/67 H 95 06/08/17 08:07 06/08/17 08:07 06/08/17 08:07 06/08/17 08:07 06/08/17 08:07 Intake & Output 06/07/17 06/08/17 06/09/17 06:59 06:59 06:59 Intake Total 760 500 Output Total 0 Balance 760 500 Weight 65.1 kg 64.5 kg General appearance: PRESENT: no acute distress Eye exam: PRESENT: PERRLA Mouth exam: PRESENT: neck supple Respiratory exam: PRESENT: clear to auscultation jolie Cardiovascular exam: PRESENT: +S1, +S2 Murmur grade: 3 GI/Abdominal exam: PRESENT: normal bowel sounds, soft, tenderness Extremities exam: PRESENT: other Neurological exam: PRESENT: alert, awake, oriented to person, oriented to place , oriented to time, oriented to situation Results Laboratory Results: 06/05/17 05:25 06/05/17 05:25 06/02/17 20:50 Foot - Left Gram Stain - Final 06/02/17 20:50 Foot - Left Wound Culture - Final Staphylococcus Aureus Acinetobacter Baumannii/Haem Skin Indira 06/02/17 06/02/17 06/02/17 21:20 21:20 21:20 Creatine Kinase 64 Troponin I 0.071 NT-Pro-B Natriuret Pep 99275 H 06/03/17 06/03/17 06/03/17 03:22 03:22 10:00 Creatine Kinase 53 L 70 Troponin I 0.081 NT-Pro-B Natriuret Pep 06/03/17 10:00 Creatine Kinase Troponin I 0.080 NT-Pro-B Natriuret Pep Impressions: Chest X-Ray 06/01/17 20:16 IMPRESSION: Cardiac enlargement. No overt failure. Lower Extremity MRI 06/02/17 00:00 IMPRESSION: 1. No evidence of osteomyelitis. 2. Cellulitis. 3. Achilles tendinosis. Renal Ultrasound 07/19/17 00:00 IMPRESSION: ATROPHIC [place] KIDNEYS WITH INCREASED ECHOGENICITY. SMALL AMOUNT OF DEBRIS IN THE BLADDER. MILD HYDRONEPHROSIS OF THE TRANSPLANT KIDNEY. Assessment & Plan - Diagnosis (1) C. difficile colitis Is this a current diagnosis for this admission?: YesPlan: Continues to Flagyl will recheck the C. difficile up to 7 days of the first test (2) Cellulitis of left leg Is this a current diagnosis for this admission?: YesPlan: Status post IND currently on IV antibiotic (3) End stage renal disease Is this a current diagnosis for this admission?: YesPlan: Currently on hemodialysis per the nephrology status post kidney transplant (4) Obstructive uropathy Is this a current diagnosis for this admission?: YesPlan: Patient is to see the urology as outpatients for further evaluations (5) UTI (urinary tract infection) Qualifiers: Urinary tract infection type: site unspecified Hematuria presence: with hematuria Qualified Code(s): N39.0 - Urinary tract infection, site not specified Is this a current diagnosis for this admission?: YesPlan: Continues to IV antibiotic (6) Coronary artery disease Qualifiers: Coronary Disease-Associated Artery/Lesion type: [place] artery [place] vs. transplanted heart: [place] heart Associated angina: without angina Qualified Code(s): I25.10 - Atherosclerotic heart disease of [place] coronary artery without angina pectoris Is this a current diagnosis for this admission?: YesPlan: Currently all stable (7) Diabetes mellitus, type II Qualifiers: Diabetes mellitus complication status: with unspecified complications Diabetes mellitus keno terminal operator insulin use: without mcc use Qualified Code(s): E11.8 - Type 2 diabetes mellitus with unspecified complications; Z79.4 - keno terminal operator (current) use of insulin Is this a current diagnosis for this admission?: YesPlan: Continues to current medications (8) Axonal GBS (Guillain-[place]oli syndrome) Is this a current diagnosis for this admission?: Yes - Time Time Spent with patient: 15-24 minutes Medications reviewed and adjusted accordingly: Yes Anticipated discharge: Home Within: Other - Inpatient Certification Medical Necessity: Need Close Monitoring Due to Risk of Patient Decompensation, Need for IV Antibiotics Post Hospital Care: D/C Director Corporate Sales Documentation - Plan Summary Plan Summary: Discussed with the Dr. Tavares about the patient IV antibiotic issues while patient is currently on next couple of months need a dialysis and he will check with the dialysis center and will decide from the
[2017-06-08] MEDS ORDERED: HEPARIN SOD (PORCINE) 1,000 UNIT/ML 10 ML VIAL IV PRN (08:56)
[2017-06-08 10:19] LABS: HEMATOCRIT 33.7 % (37.9-51.0); HEMOGLOBIN 11.3 g/dL (13.5-17.0); HGB HCT DIFFERENCE 0.2; MEAN CORPUSCULAR HGB CONC 33.4 g/dL (32.0-36.0); MEAN CORPUSCULAR VOLUME 96 fl (80-97); RED BLOOD COUNT 3.51 10^6/uL (4.35-5.55); RED CELL DISTRIBUTION WIDTH 17.8 % (11.5-14.0); WHITE BLOOD COUNT 10.7 10^3/uL (4.0-10.5)
--- NOTE | 2017-06-08 13:41 | PDOC PROGRESS REPORT ---
Subjective Progress Note for:: 06/08/17 Subjective:: Patient was seen on dialysis this afternoon. He is undergoing dialysis without any issues.Orders were discussed with the treating nurse. Vital signs are stable. Patient has still got some dysuria without any hematuria. He denies any history of fever chills or riders of abdominal pains. Physical Exam Vital Signs: Temp Pulse Resp BP Pulse Ox 97.8 F 65 18 131/68 H 95 06/08/17 11:21 06/08/17 11:21 06/08/17 08:07 06/08/17 11:21 06/08/17 08:07 Intake & Output 06/07/17 06/08/17 06/09/17 06:59 06:59 06:59 Intake Total 760 500 Output Total 0 800 Balance 760 500 -800 Weight 65.1 kg 64.5 kg General appearance: PRESENT: no acute distress Respiratory exam: PRESENT: clear to auscultation jolie. ABSENT: crackles, rhonchi Cardiovascular exam: PRESENT: +S1, +S2 GI/Abdominal exam: PRESENT: normal bowel sounds, soft. ABSENT: organomegaly, tenderness Extremities exam: ABSENT: pedal edema Neurological exam: PRESENT: awake, oriented to person, oriented to place Results Laboratory Results: 06/08/17 09:40 06/08/17 09:40 06/08/17 06/08/17 09:40 09:40 WBC 10.7 H RBC 3.51 L Hgb 11.3 L Hct 33.7 L MCV 96 MCH 32.0 MCHC 33.4 RDW 17.8 H Plt Count 274 Sodium Cancelled Potassium Cancelled Chloride Cancelled Carbon Dioxide Cancelled Anion Gap Cancelled BUN Cancelled Creatinine Cancelled Est GFR ( Amer) Cancelled Est GFR (Non-Af Amer) Cancelled Glucose Cancelled Calcium Cancelled 06/02/17 20:50 Foot - Left Gram Stain - Final 06/02/17 20:50 Foot - Left Wound Culture - Final Staphylococcus Aureus Acinetobacter Baumannii/Haem Skin Indira 06/02/17 06/02/17 06/02/17 21:20 21:20 21:20 Creatine Kinase 64 Troponin I 0.071 NT-Pro-B Natriuret Pep 15125 H 06/03/17 06/03/17 06/03/17 03:22 03:22 10:00 Creatine Kinase 53 L 70 Troponin I 0.081 NT-Pro-B Natriuret Pep 06/03/17 10:00 Creatine Kinase Troponin I 0.080 NT-Pro-B Natriuret Pep Impressions: Chest X-Ray 06/01/17 20:16 IMPRESSION: Cardiac enlargement. No overt failure. Lower Extremity MRI 06/02/17 00:00 IMPRESSION: 1. No evidence of osteomyelitis. 2. Cellulitis. 3. Achilles tendinosis. Renal Ultrasound 06/03/17 00:00 IMPRESSION: ATROPHIC [place] KIDNEYS WITH INCREASED ECHOGENICITY. SMALL AMOUNT OF DEBRIS IN THE BLADDER. MILD HYDRONEPHROSIS OF THE TRANSPLANT KIDNEY. Assessment & Plan - Diagnosis (1) UTI due to extended-spectrum beta lactamase (ESBL) producing Escherichia coli Is this a current diagnosis for this admission?: YesPlan: Patient began on ertapenem. Monitor needs evaluation by urologist to look at obstructive uropathy symptoms most likely from enlarged prostate. States he gets worsening UTI with introduction of any kind of bladder catheters. (2) Obstructive uropathy Is this a current diagnosis for this admission?: YesPlan: As mentioned earlier. Started on Flomax. Needs to be referred to local urologist on discharge. Discussed with Dr. Girard. (3) Axonal GBS (Guillain-[place] syndrome) Is this a current diagnosis for this admission?: YesPlan: Presently stable.However has got residual deficits which leaves him dependent on others for ADLs. (5) Coronary artery disease Qualifiers: Coronary Disease-Associated Artery/Lesion type: [place] artery [place] vs. transplanted heart: [place] heart Associated angina: without angina Qualified Code(s): I25.10 - Atherosclerotic heart disease of [place] coronary artery without angina pectoris Is this a current diagnosis for this admission?: Yes (6) Diabetes mellitus, type II Qualifiers: Diabetes mellitus complication status: with unspecified complications Diabetes mellitus supervisor intermediates insulin use: without supervisor intermediates use Qualified Code(s): E11.8 - Type 2 diabetes mellitus with unspecified complications; Z79.4 - intermediate manager (current) use of insulin Is this a current diagnosis for this admission?: YesPlan: Advised on diet . Uncontrolled. (8) ESRD needing dialysis Plan: He was seen on dialysis.No issues. Vital signs are stable. Plan no fluid removal on ultrafiltration. Discuss orders with treating nurse. (9) C. difficile colitis Is this a current diagnosis for this admission?: YesPlan: Positive serology. On Flagyl. Monitor. (10) Cellulitis of left leg Is this a current diagnosis for this admission?: YesPlan: On antibiotics.Patient is growing methicillin sensitive staph and Acinetobacter. Discussed with Dr. Girard about starting the patient on Bactrim for 10 days as an outpatient. Further follow-up with him.
[2017-06-08] MEDS: FERROUS SULFATE 325 MG TABLET PO SCH (13:57)
[2017-06-08] MEDS: FOLIC ACID/VITAMIN B COMP W-C CAPSULE PO SCH (13:58)
[2017-06-08] MEDS: PREDNISONE 5 MG TABLET PO SCH (13:58)
[2017-06-08] MEDS: METOPROLOL TARTRATE 50 MG TABLET PO SCH ×2 (13:58→22:07)
[2017-06-08] MEDS: ASCORBIC ACID 500 MG TABLET PO SCH (13:59)
[2017-06-08] MEDS: CLONAZEPAM 1 MG TABLET PO SCH ×2 (13:59→22:06)
[2017-06-08] MEDS: ISOSORBIDE MONONITRATE 30 MG TAB.ER.24H PO SCH (13:59)
[2017-06-08 15:14] LABS: ANION GAP 11 (5-19); BLOOD UREA NITROGEN 19 mg/dL (7-20); CALCIUM 8.6 mg/dL (8.4-10.2); CARBON DIOXIDE 28 mmol/L (22-30); CHLORIDE 102 mmol/L (98-107); CREATININE RESULT 2.63 mg/dL (0.52-1.25); GLUCOSE 119 mg/dL (75-110); POTASSIUM 3.5 mmol/L (3.6-5.0); SODIUM 140.7 mmol/L (137-145)
[2017-06-08] MEDS: TAMSULOSIN HCL 0.4 MG CAP.SR.24H PO SCH (16:29)
[2017-06-08] MEDS: INSULIN GLARGINE,HUM.REC.ANLOG 1,000 UNIT/10 ML UNIT SUBCUT SCH (22:07)
[2017-06-08] MEDS: ERTAPENEM SODIUM 0.5 GM in NORMAL SALINE 50 ML IV SCH (22:07)
[2017-06-08] MEDS: ATORVASTATIN CALCIUM 10 MG TABLET PO SCH (22:07)
[2017-06-09] MEDS: METRONIDAZOLE 500 MG TABLET PO SCH (06:14)
[2017-06-09] MEDS: LANSOPRAZOLE 15 MG TAB.RAP.DR PO SCH (06:14)
[2017-06-09] MEDS: HEPARIN SOD (PORCINE) 5,000 UNIT/ML 1 ML SYRINGE SUBCUT SCH (06:15)
[2017-06-09] MEDS: HYDRALAZINE HCL 25 MG TABLET PO SCH (06:35)
[2017-06-09 08:11] VITALS: BP 124/53
--- NOTE | 2017-06-09 13:19 | PDOC DISCHARGE SUMMARY ---
General - Admit/Disc Date/PCP Admission Date/Primary Care Provider: 06/02/17 06:09 KEEGAN MONTENEGRO MD Discharge Date: 06/09/17 - Discharge Diagnosis (1) C. difficile colitis Is this a current diagnosis for this admission?: YesSummary: Currently all stable continues to Flagyl for another 7 days and repeat the C. difficile (2) Cellulitis of left leg Is this a current diagnosis for this admission?: YesSummary: Status post IND and the wound culture sensitive to the BactrimAnd follow with the wound care (3) End stage renal disease Is this a current diagnosis for this admission?: YesSummary: Currently on hemodialysis follow with the Dr. Tavares (4) Obstructive uropathy Is this a current diagnosis for this admission?: YesSummary: Make appointment to see the urologist as an outpatient (5) UTI (urinary tract infection) Is this a current diagnosis for this admission?: YesSummary: Currently all stable urine culture was no growth (6) Coronary artery disease Is this a current diagnosis for this admission?: YesSummary: Currently all stable (7) Diabetes mellitus, type II Is this a current diagnosis for this admission?: YesSummary: Continues current medications (8) Axonal GBS (Guillain-[place] syndrome) Is this a current diagnosis for this admission?: YesSummary: See the neurology as outpatient in the [place] currently on a wheelchair- bound - Additional Information Resuscitation Status: Full Code Discharge Diet: Diabetic Discharge Activity: Activity As Tolerated Home Medications: Ascorbic Acid [Vitamin C] 250 mg PO DAILY 06/02/17 Atorvastatin Calcium [Lipitor 10 mg Tablet] 10 mg PO DAILY 06/02/17 B Complex & C No.20/Folic Acid [Nephrocaps Softgel] 1 mg PO DAILY 06/02/17 Clonazepam [Klonopin] 0.25 mg PO BID 06/02/17 Ergocalciferol (Vitamin D2) [Drisdol 50,000 unit (1.25MG) Capsule] 50,000 units PO WE 06/02/17 Ferrous Sulfate [Feosol 325 mg Tablet] 325 mg PO DAILY 06/02/17 Hydralazine HCl [Apresoline 25 mg Tablet] 25 mg PO Q8 06/02/17 Insulin Glargine,Hum.rec.anlog [Lantus Solostar] 3 units SQ QHS 06/02/17 Insulin Lispro [Humalog] 4 units SQ TID 06/02/17 Isosorbide Mononitrate [Imdur 30 mg Tablet.er] 30 mg PO DAILY 06/02/17 Metoprolol Tartrate [Lopressor 50 mg Tablet] 50 mg PO Q12 06/02/17 Nitroglycerin [Nitrostat 0.4 mg (1/150 Gr) Tabs 25/Bottle] 0.4 mg SL Q5MP PRN Omeprazole 20 mg PO DAILY 06/02/17 Prednisone [Deltasone 5 mg Tablet] 5 mg PO DAILY 06/02/17 Tamsulosin HCl [Flomax 0.4 mg Cap.sr] 0.4 mg PO WSUPPER 06/02/17 Metronidazole [Flagyl 500 mg Tablet] 500 mg PO Q8 #21 tablet 06/09/17 Sulfamethoxazole/Trimethoprim [Bactrim Ds Tablet] 1 each PO BID #20 tablet 06/09 History of Present Illness History of Present Illness: KATHRYN HURLEY is a 61 year old male This is a 61-year-old male with a significant history of the end-stage renal disease status post kidney transplant status post rejection's currently on hemodialysis and also history of obstructive uropathy and chronic urinary tract infectionsAnd ESBL was grown from the urine came to the emergency department because of the diarrhea and abnormal labs and patient have a positive C. difficileAnd history of the left foot cellulitis and admitting in the hospital for IV antibiotic and further workup Hospital Course Hospital Course: This 61-year-old male admitting in the hospital for the C. difficile colitis and end-stage renal disease in the left foot cellulitisUnderwent for the hemodialysis per Dr. Tavares and patient was put on IV and ertapenem . Patient's also put on Flagyl p.o. and patient's C. difficile is all improving Patient also seen by the general surgery for the left foot cellulitis and underwent for the incision and drainage Patient's finished IV antibiotics and blood culture urine culture was all negative and the wound cultures was all positive for that p.o. antibiotic Bactrim Patient's MRI of the left lower extremity did not show any osteomyelitis Discussed with the Dr. Tavares and suggest the patient's put on a p.o. antibiotic Bactrim for another 7-10 days Patient also need to see the urologist for the obstructive uropathyAnd may be patients do not need a dialysis if the obstructive uropathy is resolved Patient used to see a urologist at the [place] and used to do the self catheter but the causing a lot of urinary tract infections and decided to do not do any self catheter anymore Patient's otherwise remained stable patient's p.o. intake is good Discussed with the very extensively regarding the patient's current conditions and all the test result and the follow-up Patients follow with the wound care and follow outpatients [facility] and follow outpatients Dr. Tavares Physical Exam Vital Signs: Temp Pulse Resp BP Pulse Ox 98.6 F 63 20 124/53 L 97 06/09/17 09:48 06/09/17 09:48 06/09/17 09:48 06/09/17 09:48 06/09/17 09:48 Intake & Output 06/08/17 06/09/17 06/10/17 06:59 06:59 06:59 Intake Total 500 980 Output Total 0 800 Balance 500 180 Weight 64.5 kg 63.5 kg General appearance: PRESENT: no acute distress, well-developed, well-nourished Head exam: PRESENT: atraumatic, normocephalic Eye exam: PRESENT: conjunctiva pink, EOMI, PERRLA. ABSENT: scleral icterus Ear exam: PRESENT: normal external ear exam Mouth exam: PRESENT: moist, tongue midline Neck exam: PRESENT: full ROM. ABSENT: carotid bruit, JVD, lymphadenopathy, thyromegaly Respiratory exam: PRESENT: clear to auscultation jolie Cardiovascular exam: PRESENT: RRR. ABSENT: diastolic murmur, rubs, systolic murmur Murmur grade: 3 Pulses: PRESENT: normal dorsalis pedis pul, +2 pedal pulses bilateral Vascular exam: PRESENT: normal capillary refill GI/Abdominal exam: PRESENT: normal bowel sounds, soft. ABSENT: distended, guarding, mass, organolmegaly, rebound, tenderness Rectal exam: PRESENT: deferred Extremities exam: PRESENT: other Additional comments: The left foot the dressing is intact Musculoskeletal exam: PRESENT: other Neurological exam: PRESENT: alert, awake, oriented to person, oriented to place , oriented to time, oriented to situation. ABSENT: motor sensory deficit Psychiatric exam: PRESENT: appropriate affect, normal mood. ABSENT: homicidal ideation, suicidal ideation Skin exam: PRESENT: dry, intact, warm. ABSENT: cyanosis, rash Results Laboratory Results: 06/08/17 09:40 06/08/17 14:50 06/08/17 14:50 Sodium 140.7 Potassium 3.5 L Chloride 102 Carbon Dioxide 28 Anion Gap 11 BUN 19 Creatinine 2.63 H Est GFR ( Amer) 30 L Est GFR (Non-Af Amer) 25 L Glucose 119 H Calcium 8.6 06/02/17 06/02/17 06/02/17 21:20 21:20 21:20 Creatine Kinase 64 Troponin I 0.071 NT-Pro-B Natriuret Pep 58631 H 06/03/17 06/03/17 06/03/17 03:22 03:22 10:00 Creatine Kinase 53 L 70 Troponin I 0.081 NT-Pro-B Natriuret Pep 06/03/17 10:00 Creatine Kinase Troponin I 0.080 NT-Pro-B Natriuret Pep Impressions: Chest X-Ray 06/01/17 20:16 IMPRESSION: Cardiac enlargement. No overt failure. Lower Extremity MRI 06/02/17 00:00 IMPRESSION: 1. No evidence of osteomyelitis. 2. Cellulitis. 3. Achilles tendinosis. Renal Ultrasound 06/03/17 00:00 IMPRESSION: ATROPHIC [place] KIDNEYS WITH INCREASED ECHOGENICITY. SMALL AMOUNT OF DEBRIS IN THE BLADDER. MILD HYDRONEPHROSIS OF THE TRANSPLANT KIDNEY. Plan Time Spent: Greater than 30 Minutes - Patient's discharge home with the stable conditions follow outpatient check a CBC and Chem-7 and check stool for the C. difficile Follow outpatients new but urology Follow outpatient Dr. Tavares And follow outpatients wound care
== END 2017-06-09 10:40 | disposition home or self-care (01) | DRG 371 ==
LOC: ER 19:37 → EH 23:47 → UNDOADMIN 23:47 → 4S 06-02 05:03 → EH 06-02 05:03 → 4S 06-02 06:09 → EH 06-02 06:09 → UNDOADMIN 06-02 06:09 → 4W 06-03 08:45
PROVIDERS: ADMIT Family Medicine; ATTEND Family Medicine
PROC: 5A1D60Z (ICD-10-PCS; principal; 2017-06-03)
PROC: 0Y9L0ZZ Drainage of Left Ankle Region, Open Approach (ICD-10-PCS; 2017-06-06)
DX: A04.7 Enterocolitis due to Clostridium difficile (principal); N18.6 End stage renal disease; N39.0 Urinary tract infection, site not specified; L03.116 Cellulitis of left lower limb; I13.2 Hypertensive heart and chronic kidney disease with heart failure and with stage 5 chronic kidney disease, or end stage renal disease; T86.12 Kidney transplant failure; G61.0 Guillain-Barre syndrome; I50.32 Chronic diastolic (congestive) heart failure; L02.416 Cutaneous abscess of left lower limb; R31.9 Hematuria, unspecified; D63.1 Anemia in chronic kidney disease; E11.22 Type 2 diabetes mellitus with diabetic chronic kidney disease; I25.10 Atherosclerotic heart disease of native coronary artery without angina pectoris; N13.9 Obstructive and reflux uropathy, unspecified; B96.20 Unspecified Escherichia coli [E. coli] as the cause of diseases classified elsewhere; Z16.12 Extended spectrum beta lactamase (ESBL) resistance; Z99.2 Dependence on renal dialysis; Z79.4 Long term (current) use of insulin; Z79.52 Long term (current) use of systemic steroids; Z79.899 Other long term (current) drug therapy; Z95.1 Presence of aortocoronary bypass graft
CPT/HCPCS: 36415; 71010; 76775; 80048; 80053; 80061; 80307; 81001; 82140; 82150; 82272; 82550; 82803; 82962; 83036; 83605; 83690; 83735; 83880; 84100; 84153; 84439; 84443; 84484; 85025; 85027; 85610; 85730; 87040; 87045; 87070; 87077; 87086; 87186; 87205; 87493; 89055; 93005; 93010; 99285; A6266; J1335; J1580; J1644; J1815; J3370; J3490; J7512

== ENCOUNTER 2017-08-30 14:40 | Emergency (ER) | payer MEDICARE ==
[2017-08-30] MEDS ORDERED: OXYCODONE-ACETAMINOPHEN 5-325 MG TABLET PO ONE (15:52)
[2017-08-30] MEDS ORDERED: ONDANSETRON 4 MG TAB.RAPDIS PO ONE (15:52)
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
--- NOTE | 2017-08-30 17:04 | RADIOLOGY REPORT (SQ) ---
EXAM DESCRIPTION: SHOULDER RIGHT 2 OR MORE VIEWS COMPLETED DATE/TIME: 08/30/2017 4:42 pm REASON FOR STUDY: fall, pain COMPARISON: None. NUMBER OF VIEWS: Three views. TECHNIQUE: Internal rotation, external rotation, and Y view images acquired of the right shoulder. LIMITATIONS: None. FINDINGS: MINERALIZATION: Osteopenia. BONES: No acute fracture or dislocation. No worrisome bone lesions. JOINTS: No dislocation. VISUALIZED LUNGS AND RIBS: No pneumothorax. No rib fracture. SOFT TISSUES: No radiopaque foreign body. OTHER: No other significant finding. IMPRESSION: No fracture identified. TECHNICAL DOCUMENTATION: JOB ID: [id number] [employer]- All Rights Reserved
--- NOTE | 2017-08-30 17:06 | RADIOLOGY REPORT (SQ) ---
EXAM DESCRIPTION: HIP RIGHT AP/LATERAL COMPLETED DATE/TIME: 08/30/2017 4:42 pm REASON FOR STUDY: fall, pain COMPARISON: None. NUMBER OF VIEWS: Two views. TECHNIQUE: AP pelvis and additional frog-leg view of the right hip. LIMITATIONS: None. FINDINGS: MINERALIZATION: Osteopenia. RIGHT HIP: No fracture or dislocation. No worrisome bone lesions. LEFT HIP: No fracture or dislocation. No worrisome bone lesions. PUBIS AND ISCHIUM: No fracture. PELVIS: No fracture. SACRUM: No fracture or dislocation. No worrisome bone lesions. LOWER LUMBAR SPINE: No fracture or dislocation. No worrisome bone lesions. No significant disc disea se. SOFT TISSUES: No findings. OTHER: No other significant finding. IMPRESSION: No fracture identified. TECHNICAL DOCUMENTATION: JOB ID: [id number] 1985 [employer]- All Rights Reserved
[2017-08-30] MEDS ORDERED: HYDROCODONE/ACETAMINOPHEN 5-325 MG 6 TAB/DSPK PO PRN (17:09)
--- NOTE | 2017-08-30 18:43 | RADIOLOGY REPORT (SQ) ---
EXAM DESCRIPTION: CT HEAD WITHOUT COMPLETED DATE/TIME: 08/30/2017 6:31 pm REASON FOR STUDY: fall, head injury COMPARISON: 04/04/2014 TECHNIQUE: Axial images acquired through the brain without intravenous contrast. Images reviewed wi th bone, brain and subdural windows. Images stored on PACS. All CT scanners at this facility use dose modulation, iterative reconstruction, and/or weight based d osing when appropriate to reduce radiation dose to as low as reasonably achievable (ALARA). [facility]: Dose Right [facility]: CareDose [facility]: Dose Right [facility]: Teradose 4D [facility]: Smart [facility] RADIATION DOSE: Up-to-date CT equipment and radiation dose reduction techniques were employed. CTDIv ol: 64.6 mGy. DLP: 1034 mGy-cm. mGy. LIMITATIONS: None. FINDINGS: VENTRICLES: Prominent. CEREBRUM: No masses. No hemorrhage. No midline shift. Areas of low density in the white matter mos t likely due to chronic micro-vascular ischemic change. No evidence for acute infarction. CEREBELLUM: No masses. No hemorrhage. No alteration of density. No evidence for acute infarction. EXTRAAXIAL SPACES: Mild age-related involutional change. No fluid collections. No masses. ORBITS AND GLOBE: No intra- or extraconal masses. Normal contour of globe without masses. CALVARIUM: No fracture. PARANASAL SINUSES: No significant fluid or mucosal thickening. SOFT TISSUES: No mass or hematoma. OTHER: No other significant finding. IMPRESSION: MILD CHRONIC CHANGES OF ATROPHY AND MICROVASCULAR ISCHEMIA. NO ACUTE PROCESS. EVIDENCE OF ACUTE STROKE: NO. TECHNICAL DOCUMENTATION: JOB ID: [id number] Quality ID # [id number]: Final reports with documentation of one or more dose reduction techniques (e.g., Au tomated exposure control, adjustment of the mA and/or kV according to patient size, use of iterative reconstruction technique) 2010 [employer]- All Rights Reserved
[2017-08-30 19:21] VITALS: BP 155/54
[2017-08-30] MEDS ORDERED: HYDROCODONE/ACETAMINOPHEN 5-325 MG 6 TAB/DSPK ONE (19:29)
== END 2017-08-30 19:36 | disposition home or self-care (01) ==
LOC: ER 14:40
DX: S09.90XA Unspecified injury of head, initial encounter (principal); M25.511 Pain in right shoulder; M25.551 Pain in right hip; W05.0XXA Fall from non-moving wheelchair, initial encounter; Y92.811 Bus as the place of occurrence of the external cause; G61.0 Guillain-Barre syndrome; E78.00 Pure hypercholesterolemia, unspecified; I25.10 Atherosclerotic heart disease of native coronary artery without angina pectoris; J44.9 Chronic obstructive pulmonary disease, unspecified; E11.22 Type 2 diabetes mellitus with diabetic chronic kidney disease; I13.2 Hypertensive heart and chronic kidney disease with heart failure and with stage 5 chronic kidney disease, or end stage renal disease; N18.6 End stage renal disease; I50.9 Heart failure, unspecified; Z87.891 Personal history of nicotine dependence; I25.2 Old myocardial infarction; Z95.1 Presence of aortocoronary bypass graft; Z94.0 Kidney transplant status
CPT/HCPCS: 99284; 73502; 73030; 70450; A9270 ×3; S0119

== ENCOUNTER → 2017-09-29 | Outpatient (CLI) | payer MEDICARE ==
--- NOTE | 2017-09-29 15:12 | RADIOLOGY REPORT (SQ) ---
EXAM DESCRIPTION: CT LTD RENAL STONE PROTOCOL ON COMPLETED DATE/TIME: 09/29/2017 2:14 pm REASON FOR STUDY: R31.9 HEMATURIA, UNSPECIFIED R31.9 HEMATURIA, UNSPECIFIED COMPARISON: None. TECHNIQUE: CT scan of the abdomen and pelvis performed without intravenous or oral contrast. Images reviewed with lung, soft tissue, and bone windows. Reconstructed coronal and sagittal MPR images revi ewed. All images stored on PACS. All CT scanners at this facility use dose modulation, iterative reconstruction, and/or weight based d osing when appropriate to reduce radiation dose to as low as reasonably achievable (ALARA). [facility]: Dose Right [facility]: CareDose [facility]: Dose Right [facility]: Teradose 4D [facility]: Smart [facility] RADIATION DOSE: Up-to-date CT equipment and radiation dose reduction techniques were employed. CTDIv ol: 4.6 mGy. DLP: 245 mGy-cm.mGy. LIMITATIONS: None. FINDINGS: LOWER CHEST: No significant findings. No nodules or infiltrates. NON-CONTRASTED LIVER, SPLEEN, ADRENALS: Evaluation limited by lack of IV contrast. No identified sign ificant masses. PANCREAS: No masses. No peripancreatic inflammatory changes. GALLBLADDER: No identified stones by CT criteria. No inflammatory changes to suggest cholecystitis. RIGHT KIDNEY AND URETER: Atrophic kidney. Renal vascular calcifications. There appear to be some sm all intrarenal calculi. No hydronephrosis. LEFT KIDNEY AND URETER: Atrophic kidney. Renal vascular calcifications. There are some small intrar enal calculi. No hydronephrosis. TRANSPLANTED KIDNEY: Normal cortical thickness. No hydronephrosis. No stones. AORTA AND RETROPERITONEUM: No aneurysm. Atherosclerosis including there osage renal arteries, the s uperior and inferior mesenteric arteries. BOWEL AND PERITONEAL CAVITY: No obvious masses or inflammatory changes. No free fluid. APPENDIX: Normal. PELVIS, BLADDER, AND ABDOMINAL WALL:The urinary bladder is not filled and cannot be well evaluated no pelvic mass is seen. There is no free fluid there is a small ventral hernia to the left of the midl ine on image 50 series 2. This contains only fat. BONES: No significant findings. OTHER: No other significant finding. IMPRESSION: 1. The osage kidneys are atrophic with renal vascular calcifications and with some sma ll intrarenal calcifications. 2. The transplanted kidney is unremarkable. 3. There is a small ventral hernia. COMMENT: Quality ID # [id number]: Final reports with documentation of one or more dose reduction techniques (e.g., Automated exposure control, adjustment of the mA and/or kV according to patient size, use of iterative reconstruction technique) TECHNICAL DOCUMENTATION: JOB ID: [id number] [employer]- All Rights Reserved
== END ==
LOC: RAD 13:56
PROVIDERS: ATTEND Physician Assistant
DX: R31.9 Hematuria, unspecified (principal); N26.1 Atrophy of kidney (terminal); Z94.0 Kidney transplant status
CPT/HCPCS: 76380

== ENCOUNTER 2017-11-20 00:25 | Emergency (ER) | payer MEDICARE ==
[2017-11-20 00:38] VITALS: BP 145/57
--- NOTE | 2017-11-20 01:10 | ER Document Report ---
ED General - General Chief Complaint: Foot Pain Stated Complaint: TOE PAIN Time Seen by Provider: 11/20/17 00:33 Mode of Arrival: Medic Information source: Patient Notes: This is a 61-year-old insulin requiring diabetic, wheelchair-bound (Margo Ventura 2013), status post kidney transplant (2012), currently on dialysis (Thursday, Thursday, Thursday), presents to the emergency room with foul-smelling odor and discharge from the right foot wound. TRAVEL OUTSIDE OF THE [place] IN LAST 30 DAYS: No - HPI Onset: Last week Onset/Duration: Gradual Quality of pain: No pain Severity: None Pain Level: Denies Associated symptoms: denies: Chest pain, Fever, Shortness of breath Exacerbated by: Denies Relieved by: Denies Similar symptoms previously: Yes Recently seen / treated by doctor: Yes - Related Data Allergies/Adverse Reactions: No Known Allergies Allergy (Verified 08/30/17 14:45) Home Medications: Current Home Medications Ferrous Sulfate [Iron] 325 mg PO BID 11/20/17 [History] Mupirocin [Bactroban 2% Ointment 22 gm] 1 applic TP BID 11/20/17 [History] Tamsulosin HCl [Flomax] 0.4 mg PO DAILY 11/20/17 [History] Past Medical History - General Information source: Patient - Social History Smoking Status: Unknown if Ever Smoked Chew tobacco use (# tins/day): No Frequency of alcohol use: None Drug Abuse: None Lives with: Family Family History: CAD, None, Reviewed & Not Pertinent Patient has suicidal ideation: No Patient has homicidal ideation: No - Past Medical History Cardiac Medical History: Reports: Hx Congestive Heart Failure, Hx Coronary Artery Disease, Hx Heart Attack, Hx Hypercholesterolemia, Hx Hypertension Pulmonary Medical History: Reports: Hx Asthma, Hx COPD, Hx Pneumonia - GBS, Hx Intubation, Hx Respiratory Failure, Hx Sleep Apnea - On C Pap Neurological Medical History: Reports: Other - Kaylyn Ventura (wheelchair-bound) Endocrine Medical History: Reports: Hx Diabetes Mellitus Type 1, Hx Diabetes Mellitus Type 2 Renal/ Medical History: Reports: Hx End Stage Renal Disease GI Medical History: Denies: Hx Crohn's Disease, Hx Diverticulitis, Hx Ulcerative Colitis Psychiatric Medical History: Denies: Hx Depression Infectious Medical History: Reports: Hx C-Diff Past Surgical History: Reports: Hx Cardiac Surgery - double bypass, Hx Coronary Artery Bypass Graft - Quadruple bypass 2007, Hx Kidney (Renal Surgery) - RENAL TRANSPLANT, Other - History peritoneal dialysis catheter placement and removal - Immunizations Immunizations up to date: Yes Hx Diphtheria, Pertussis, Tetanus Vaccination: Yes Hx Pneumococcal Vaccination: 08/16/16 Review of Systems - Review of Systems Constitutional: denies: Chills, Fever EENT: No symptoms reported Cardiovascular: No symptoms reported Respiratory: No symptoms reported Gastrointestinal: No symptoms reported Genitourinary: No symptoms reported Male Genitourinary: No symptoms reported Musculoskeletal: See HPI Skin: See HPI Hematologic/Lymphatic: No symptoms reported Neurological/Psychological: No symptoms reported Physical Exam - Vital signs Vitals: Temp Pulse Resp BP Pulse Ox 98.2 F 63 16 145/57 H 98 11/20/17 00:32 11/20/17 00:32 11/20/17 00:32 11/20/17 00:32 11/20/17 00:32 Notes: Physical exam: GENERAL: 61-year-old man, alert and oriented 3, no acute distress HEAD: Atraumatic, normocephalic. EYES: Pupils equal round and reactive to light, extraocular movements intact, sclera anicteric, conjunctiva are normal. ENT: TMs normal, nares patent, oropharynx clear without exudates. Moist mucous membranes. NECK: Normal range of motion, supple without obvious mass or JVD. LUNGS: Breath sounds clear to auscultation bilaterally and equal. No wheezes rales or rhonchi. HEART: Regular rate and rhythm without murmurs, rubs or gallops. ABDOMEN: Soft, normoactive bowel sounds. No tenderness to palpation. No guarding, no rebound. No masses appreciated. EXTREMITIES: Right fifth toe with discharge and foul smell. NEUROLOGICAL: Cranial nerves II through XII grossly intact. Normal speech, moving all extremities. PSYCH: Normal mood, normal affect. Course - Re-evaluation Re-evalutation: 11/20/17 03:[address] Montenegro knows the patient well. We will place the patient on IV antibiotics. He will get IV Cipro now. Dr. Montenegro will speak to the banking analyst (Dr. Tavares) about continuing the IV antibiotics with dialysis. The patient is to be dialyzed later today. Additionally, patient has an appointment in the wound clinic next week and this will give a chance for some antibiotics to work before that period of time. The patient does not appear septic and appears quite comfortable. The wound itself has some discharge but there is a chronic component as well. The x-rays show significant demineralization throughout the whole foot so it is tough to tell whether there is any evidence of osteomyelitis. Patient will follow up with Dr. Montenegro who will coordinate coordinate between the banking analyst and wound care. 11/20/17 03:27 - Vital Signs Vital signs: Temp Pulse Resp BP Pulse Ox 98.2 F 63 16 145/57 H 98 11/20/17 00:32 11/20/17 00:32 11/20/17 00:32 11/20/17 00:32 11/20/17 00:32 - Laboratory Result Diagrams: 11/20/17 01:25 11/20/17 01:25 Laboratory results interpreted by me: 11/20/17 11/20/17 01:25 01:25 WBC 10.8 H RBC 3.72 L Hgb 12.5 L Hct 36.9 L MCV 99 H MCH 33.5 H RDW 15.3 H ESR 103 H Carbon Dioxide 19 L BUN 61 H Creatinine 4.92 H Est GFR ( Amer) 15 L Est GFR (Non-Af Amer) 12 L Glucose 323 H Alkaline Phosphatase 139 H C-Reactive Protein 30.5 H Albumin 3.3 L - Diagnostic Test Radiology reviewed: Image reviewed, Reports reviewed - Significant demineralization of the foot Discharge - Discharge Clinical Impression: Diabetic wound Condition: Stable Disposition: HOME, SELF-CARE Additional Instructions: As discussed, you will be given IV antibiotics after dialysis. Dr. Montenegro is recommended to stop the prednisone. Continue all other medicines. Follow-up with Dr. Tavares at dialysis. Dr. Montenegro has stated that he will discuss the antibiotic issue with Dr. Tavares. Return to the emergency room for any concerns that the foot is getting worse, fevers, chills or any pain. Referrals: KEEGAN MONTENEGRO MD [Primary Care Provider] - Follow up as needed
[2017-11-20 01:35] LABS: ABSOLUTE BASOPHILS # (AUTO) 0.1 10^3/uL (0.0-0.2); ABSOLUTE EOSINOPHILS # (AUTO) 0.3 10^3/uL (0.0-0.6); ABSOLUTE LYMPHOCYTES (AUTO) 3.8 10^3/uL (0.5-4.7); ABSOLUTE MONOCYTES (AUTO) 1.1 10^3/uL (0.1-1.4); ABSOLUTE NEUT (AUTO) 5.5 10^3/uL (1.7-8.2); BASOPHILS % (AUTO) 0.9 % (0-2); EOSINOPHILS % (AUTO) 2.5 % (0-6); HEMATOCRIT 36.9 % (37.9-51.0); HEMOGLOBIN 12.5 g/dL (13.5-17.0); LYMPHOCYTES % (AUTO) 35.7 % (13-45); MEAN CORPUSCULAR HEMOGLOBIN 33.5 pg (27.0-33.4); MEAN CORPUSCULAR HGB CONC 33.8 g/dL (32.0-36.0); MEAN CORPUSCULAR VOLUME 99 fl (80-97); MONOCYTES % (AUTO) 9.8 % (3-13); PLATELET COUNT 226 10^3/uL (150-450); RED BLOOD COUNT 3.72 10^6/uL (4.35-5.55); RED CELL DISTRIBUTION WIDTH 15.3 % (11.5-14.0); SEGMENTED NEUTROPHILS % (AUTO) 51.1 % (42-78); TOTAL CELLS COUNTED % (AUTO) 100 %; WHITE BLOOD COUNT 10.8 10^3/uL (4.0-10.5)
[2017-11-20 01:50] LABS: ALANINE AMINOTRANSFERASE 30 U/L (21-72); ALBUMIN 3.3 g/dL (3.5-5.0); ALKALINE PHOSPHATASE 139 U/L (38-126); ANION GAP 16 (5-19); ASPARTATE AMINO TRANSFERASE 28 U/L (17-59); BILIRUBIN,DIRECT 0.4 mg/dL (0.0-0.4); BILIRUBIN,TOTAL 0.4 mg/dL (0.2-1.3); BLOOD UREA NITROGEN 61 mg/dL (7-20); C-REACTIVE PROTEIN 30.5 mg/L (<10.0); CALCIUM 8.9 mg/dL (8.4-10.2); CARBON DIOXIDE 19 mmol/L (22-30); CHLORIDE 105 mmol/L (98-107); GLUCOSE 323 mg/dL (75-110); POTASSIUM 4.4 mmol/L (3.6-5.0); SODIUM 140.2 mmol/L (137-145); TOTAL PROTEIN 7.8 g/dL (6.3-8.2)
[2017-11-20 02:11] LABS: ERYTHROCYTE SEDIMENTATION RATE 103 mm/hr (0-20)
--- NOTE | 2017-11-20 02:38 | RADIOLOGY REPORT (SQ) ---
EXAM DESCRIPTION: FOOT RIGHT COMPLETE CLINICAL HISTORY: 61 years, Male, right 5th mt wound COMPARISON: None. NUMBER OF VIEWS: 3 FINDINGS: Severe bony demineralization throughout the visualized right foot and right distal tibia-fibula, moderate atherosclerosis, no significant fracture/dislocation. IMPRESSION: Nonspecific severe diffuse bony demineralization; differential etiologies include severe osteoporosis, and complex regional pain syndrome. Cannot exclude osteomyelitis. 2011 [employer]- All Rights Reserved
[2017-11-20] MEDS ORDERED: CIPROFLOXACIN 400 MG/D5W RTU 400 MG/200 ML RTUPB IV ONE (03:22)
== END 2017-11-20 06:06 | disposition home or self-care (01) ==
LOC: ER 00:25
DX: M79.671 Pain in right foot (principal); E11.9 Type 2 diabetes mellitus without complications; Z79.899 Other long term (current) drug therapy; Z79.4 Long term (current) use of insulin
CPT/HCPCS: 99285; 96365; 36415; 87070; 87205; 85025; 85652; 87075; 86140; 87077; 80053; 87186; 73630; J0744

== ENCOUNTER 2018-01-04 10:29 | Day surgery (SDC) | payer MEDICARE ==
[~2018-01-04 10:29] MED LIST: VANCOMYCIN HCL 500 MG in NORMAL SALINE 100 ML IV PRN
[2018-01-04 11:19] LABS: HEMATOCRIT 38.1 % (37.9-51.0); HEMOGLOBIN 12.7 g/dL (13.5-17.0); MEAN CORPUSCULAR HEMOGLOBIN 32.5 pg (27.0-33.4); MEAN CORPUSCULAR HGB CONC 33.3 g/dL (32.0-36.0); MEAN CORPUSCULAR VOLUME 97 fl (80-97); PLATELET COUNT 301 10^3/uL (150-450); RED BLOOD COUNT 3.91 10^6/uL (4.35-5.55); RED CELL DISTRIBUTION WIDTH 14.8 % (11.5-14.0); WHITE BLOOD COUNT 11.4 10^3/uL (4.0-10.5)
[2018-01-04 11:38] LABS: ANION GAP 15 (5-19); BLOOD UREA NITROGEN 45 mg/dL (7-20); CALCIUM 9.6 mg/dL (8.4-10.2); CARBON DIOXIDE 26 mmol/L (22-30); CHLORIDE 105 mmol/L (98-107); GLUCOSE 131 mg/dL (75-110); POTASSIUM 4.1 mmol/L (3.6-5.0); SODIUM 145.6 mmol/L (137-145)
[2018-01-04] MEDS ORDERED: HEPARIN SOD (PORCINE) 1,000 UNIT/ML 10 ML VIAL ONE (12:03)
[2018-01-04] MEDS ORDERED: BACITRACIN INJ 50,000 UNIT VIAL ONE (12:04)
[2018-01-04] MEDS ORDERED: LIDOCAINE 0.5% INJ-PF (5 MG/ML) 50 ML SDV ONE (12:04)
[2018-01-04] MEDS ORDERED: BUPIVACAINE HCL 0.25 % INJ/PF (2.5 MG/1 ML) 30 ML VIAL ONE (12:04)
[2018-01-04] MEDS ORDERED: LIDOCAINE 1% INJ-PF (10 MG/ML) 30 ML SDV ONE (12:05)
[2018-01-04] MEDS ORDERED: MIDAZOLAM 2 MG/2 ML INJ ONE (12:20)
[2018-01-04] MEDS ORDERED: FENTANYL CITRATE INJ/PF 100 MCG/2 ML AMPUL ONE (12:20)
[2018-01-04] MEDS ORDERED: NITROGLYCERIN/D5W 0 MG/0 ML RTUINJ IV ONE (12:55)
--- NOTE | 2018-01-04 13:36 | EKG REPORT ---
SEVERITY:- ABNORMAL ECG - SINUS RHYTHM FIRST DEGREE AV BLOCK PROBABLE LEFT ATRIAL ABNORMALITY INFERIOR INFARCT, OLD ANTERIOR INFARCT, AGE INDETERMINATE LATERAL LEADS ARE ALSO INVOLVED BORDERLINE PROLONGED QT INTERVAL : Confirmed by: Kevon Madison MD 04-Jan-2018 13:35:37
[2018-01-04] MEDS ORDERED: FENTANYL CITRATE INJ/PF 100 MCG/2 ML AMPUL IV PRN ×3 (14:54)
[2018-01-04] MEDS ORDERED: PROMETHAZINE HCL INJ 25 MG/1 ML VIAL IV PRN ×2 (14:54)
[2018-01-04] MEDS ORDERED: ONDANSETRON HCL INJ/PF 4 MG/2 ML SDV IV PRN (14:54)
[2018-01-04] MEDS ORDERED: MORPHINE SULFATE 10 MG/ML INJ IV PRN (14:54)
[2018-01-04] MEDS ORDERED: MEPERIDINE HCL/PF INJ 25 MG/1 ML DISP.SYRIN IV PRN (14:54)
[2018-01-04] MEDS ORDERED: OXYCODONE-ACETAMINOPHEN 5-325 MG TABLET PO PRN ×2 (14:54)
[2018-01-04] MEDS ORDERED: DIPHENHYDRAMINE HCL 50 MG/ML VIAL IV PRN (14:54)
--- NOTE | 2018-01-04 14:57 | PDOC DISCHARGE SUMMARY ---
Discharge Summary (SDC) - Discharge Final Diagnosis: #[address] 2. End-stage renal disease on hemodialysis. 3. Guillain-Ventura syndrome. 4. Coronary artery disease. 5. History of multiple infections. 6. Hypertension. Date of Surgery: 01/04/18 Discharge Date: 01/04/18 Condition: Fair Treatment or Instructions: Discharge home [after recovery per ASU criteria]. Diet , [renal],as tolerated, when fully awake advance as tolerated. Activities within moderation encouraged. Follow up in my office by appointment in about [1 week]. Call for appointment. Leave wounds [covered], [keep clean and dry, until office visit in 1 week]. Hold of on school/work [until evaluation in office]. Meds per med rec. May shower [in 48 hrs], [try to keep operated area as dry as possible]. Prescriptions: Oxycodone HCl/Acetaminophen [Percocet 5-325 mg Tablet] 1 tab PO ASDIR PRN #15 tab PRN Reason: Referrals: KEEGAN MONTENEGRO MD [Primary Care Provider] - Discharge Diet: Other (Comments) - Renal, diabetic Respiratory Treatments at Home: Deep Breathing/Coughing Discharge Activity: Activity As Tolerated Report the Following to Your Physician Immediately: Shortness of Breath, Unusual Bleeding
--- NOTE | 2018-01-04 15:05 | Operative Report ---
Operative Report DATE OF SURGERY: 01/04/18 PREOPERATIVE DIAGNOSIS: #[address] 2. End-stage renal disease on hemodialysis. 3. Guillain-Ventura syndrome. 4. Coronary artery disease. 5. History of multiple infections. 6. Hypertension. POSTOPERATIVE DIAGNOSIS: #[address] 2. End-stage renal disease on hemodialysis. 3. Guillain-Ventura syndrome. 4. Coronary artery disease. 5. History of multiple infections. 6. Hypertension. OPERATION: Insertion of first stage left transposed brachial vein fistula. SURGEON: KATHERINE ROLON FIELD ORGANIZER: None ANESTHESIA: LMAC TISSUE REMOVED OR ALTERED: Not applicable. COMPLICATIONS: None. ESTIMATED BLOOD LOSS: 100 mils. INTRAOPERATIVE FINDINGS: Of a very small basilic vein no more than about 2 mm. Of a brachial vein of acceptable caliber estimated to be about 3-3.5 mm at the level of anastomosis. Of a brachial artery which is completely calcified. This required special techniques for control, use of Yung embolectomy balloons. More bleeding than normal from this procedure due to imperfect control. Satisfactory anastomosis conducted, good Doppler signal. Stethoscope signal not ideal. The hope is for a functioning fistula allowing for a second stage transposition in about 3 months. Otherwise hemodialysis access will be really challenging in this gentleman with very heavily diseased arteries and very poor venous availability. PROCEDURE: Operative Report PROCEDURE: After reviewing the procedure with the patient, he was taken to the operating room. The patient was sedated and the [left upper extremity] prepared with chlorhexidine and draped out with sterile linen. After the "" universal timeout", in which it was verified that the patient [received IV antibiotics] the procedure commenced. The sterilely sheathed ultrasound probe was used to evaluate the left upper venous and arterial systems, pertinent to the previously done vein mapping. Anesthesia secured. An incision was made over the distal basilic vein and dissection proceeded down.. On inspection it seems small and possibly somewhat sclerotic. Hopes of using it for fistula were abandoned at this point. Local anesthesia was infiltrated and a longitudinal incision made over the lower arm near the antecubital fossa. Dissection proceeded through the subcutaneous tissues down to the brachial vessels. The vein was dissected out proximally and distally for about 4 cm. Likewise major branches. The brachial artery dissected out for a distance of about 1.5 cm. A portion of artery below the elbow was selected as being the softest. Still heavily calcified. Rubber loops were placed on either end. The patient was given 2500 units of heparin intravenously. The artery was controlled proximally and distally with rubber loops. An arteriotomy approximately [1.5 cm] in length was made, the artery was irrigated proximally and distally with heparinized solution. Being heavily calcified there was considerable bleeding. A Yung embolectomy balloon, previously repaired with a 3 to stop stopcock was inserted proximally to the rubber loop and gently inflated to us to stop antegrade flow. The identical procedure was used for retrograde flow through the more distal brachial artery. This aided greatly in control although there was mild ongoing bleeding during the anastomosis which was conducted as expeditiously as possible. The transected vein was now spatulated, it was then anastomosed end to side into the brachial artery. This was done using a continuous suture of 6- 0 Prolene. Controls of the fistula were now released and it was analyzed using a Doppler probe. Hemostasis was secured once optimal function was assured, the wound was irrigated with antibiotic containing solution and closed. Closure was done carefully so as to not impede the flow of the fistula. Closure was done using interrupted 3-0 PDS for the subcutaneous tissues. The skin was closed using a continuous subcutaneous suture of 4-0 Monocryl which was reinforced with Steri-Strips over benzoin. The preliminary incision over the basilic vein was likewise closed. I then left the operative field and returned with a stethoscope covered with a sterile Tegaderm dressing. This allowed external auscultation of the fistula. Auscultation was borderline. This was the accepted as a test under the difficult circumstances. The procedure was concluded by applying a dressing over the surgical site. DICTATING PHYSICIAN: KATHERINE DIXON M.D.
[2018-01-04 17:24] VITALS: BP 161/79
== END 2018-01-04 17:15 | disposition home or self-care (01) ==
LOC: OROUT 10:29
PROVIDERS: ATTEND Surgery
PROC: 05SA0ZZ Reposition Left Brachial Vein, Open Approach (ICD-10-PCS; principal; 2018-01-04 13:00)
DX: I12.0 Hypertensive chronic kidney disease with stage 5 chronic kidney disease or end stage renal disease (principal); E11.22 Type 2 diabetes mellitus with diabetic chronic kidney disease; N18.6 End stage renal disease; Z99.2 Dependence on renal dialysis; Z86.73 Personal history of transient ischemic attack (TIA), and cerebral infarction without residual deficits; E78.5 Hyperlipidemia, unspecified; I49.9 Cardiac arrhythmia, unspecified; R06.00 Dyspnea, unspecified; G61.0 Guillain-Barre syndrome; I25.10 Atherosclerotic heart disease of native coronary artery without angina pectoris; Z87.891 Personal history of nicotine dependence; Z79.899 Other long term (current) drug therapy; Z79.4 Long term (current) use of insulin
CPT/HCPCS: 36415; 85027; 80048; 93005; 93010; 36821; C1757; J2250; J3490 ×3; J3010; J1644; J3370; 01844

== ENCOUNTER 2018-01-06 06:58 | Emergency (ER) | payer MEDICARE ==
--- NOTE | 2018-01-06 07:21 | ER Document Report ---
ED Cardiac - General Chief Complaint: Chest Pain Stated Complaint: CHEST PAIN Time Seen by Provider: 01/06/18 07:08 Mode of Arrival: Medic Information source: Patient Notes: Patient is a 62-year-old male who presents to the ER today via EMS for chest pain that started at around 6 AM and has subsided on its own after he belched and passed gas. Patient states that it was in his upper stomach radiating up into his chest for about 20 minutes. He does have a history of acid reflux but also has had a heart attack. He has chronic kidney disease and is on dialysis. He has dialysis today. He denies any shortness of breath or nausea with the chest pain. TRAVEL OUTSIDE OF THE [place] IN LAST 30 DAYS: No - Related Data Allergies/Adverse Reactions: No Known Allergies Allergy (Verified 01/04/18 11:13) Past Medical History - General Information source: Patient - Social History Smoking Status: Unknown if Ever Smoked Family History: CAD, None, Reviewed & Not Pertinent - Past Medical History Cardiac Medical History: Reports: Hx Congestive Heart Failure, Hx Coronary Artery Disease, Hx Heart Attack - QUADRUPLE BYPASS 2007, HEART MURMUR, Hx Hypercholesterolemia, Hx Hypertension Pulmonary Medical History: Reports: Hx Asthma, Hx COPD, Hx Pneumonia - HX. GUILLAIN-BARRE' SYNDROME, Hx Intubation, Hx Respiratory Failure, Hx Sleep Apnea - On C Pap Denies: Hx Bronchitis Neurological Medical History: Reports: Hx Cerebrovascular Accident - 2006. Denies: Hx Seizures Endocrine Medical History: Reports: Hx Diabetes Mellitus Type 1, Hx Diabetes Mellitus Type 2 Renal/ Medical History: Reports: Hx End Stage Renal Disease, Hx Peritoneal Dialysis - started 6 months ago. GI Medical History: Denies: Hx Crohn's Disease, Hx Diverticulitis, Hx Ulcerative Colitis Musculoskeltal Medical History: Denies Hx Arthritis Psychiatric Medical History: Denies: Hx Depression Infectious Medical History: Reports: Hx C-Diff Past Surgical History: Reports: Hx Cardiac Surgery - double bypass, Hx Coronary Artery Bypass Graft - Quadruple bypass 2007, Hx Kidney (Renal Surgery) - RENAL TRANSPLANT, Other - History peritoneal dialysis catheter placement and removal - Immunizations Immunizations up to date: Yes Hx Diphtheria, Pertussis, Tetanus Vaccination: Yes - UTD Hx Pneumococcal Vaccination: 08/16/16 Review of Systems - Review of Systems Constitutional: No symptoms reported EENT: No symptoms reported Cardiovascular: See HPI Respiratory: No symptoms reported Gastrointestinal: See HPI Genitourinary: No symptoms reported Male Genitourinary: No symptoms reported Musculoskeletal: No symptoms reported Skin: No symptoms reported Hematologic/Lymphatic: No symptoms reported Neurological/Psychological: No symptoms reported Physical Exam - Vital signs Vitals: Resp Pulse Ox 18 100 01/06/18 07:09 01/06/18 07:09 - Notes Notes: PHYSICAL EXAMINATION: GENERAL: Chronically ill-appearing, but in no acute distress. HEAD: Atraumatic, normocephalic. EYES: Pupils equal round and reactive to light, extraocular movements intact, sclera anicteric, conjunctiva are normal. ENT: ear canals without erythema or foreign body, TMs pearly hahn with good bony landmarks, nares patent, oropharynx clear without exudates. Moist mucous membranes. NECK: Normal range of motion, supple without lymphadenopathy LUNGS: CTAB and equal. No wheezes rales or rhonchi. HEART: Regular rate and rhythm without murmurs ABDOMEN: Soft, no tenderness. No guarding, no rebound BACK: no vertebral tenderness, normal ROM GI/: no CVA tenderness EXTREMITIES: Normal range of motion, no pitting edema. No cyanosis. NEUROLOGICAL: Cranial nerves grossly intact. Normal sensory/motor exams. PSYCH: Normal mood, normal affect. SKIN: Warm, Dry, normal turgor, no rashes or lesions noted Course - Re-evaluation Re-evalutation: 01/06/18 11:53 2 sets of cardiac enzymes negative. Nonspecific, white count is mildly elevated but chest x-ray was benign. Dr. Girard, patient's primary care provider was here, did see lab results and visit the patient and advises if second troponin is negative to discharge to that he can go to dialysis. I do believe patient has some acid reflux or some gas that did resolve on its own causing the chest pain. Dr. Girard agrees with this. 01/06/18 11:54 - Vital Signs Vital signs: Temp Pulse Resp BP Pulse Ox 98.8 F 22 H 142/58 H 95 01/06/18 07:43 01/06/18 11:01 01/06/18 11:00 01/06/18 11:01 - Laboratory Result Diagrams: 01/06/18 08:18 01/06/18 08:18 Laboratory results interpreted by me: 01/06/18 01/06/18 01/06/18 08:18 08:18 08:18 WBC 16.1 H RBC 3.45 L Hgb 11.3 L Hct 33.7 L MCV 98 H RDW 15.0 H Abs Neuts (Manual) 10.5 H Absolute Eos (Manual) 1.0 H Sodium 146.2 H BUN 44 H Creatinine 4.90 H Est GFR ( Amer) 15 L Est GFR (Non-Af Amer) 12 L ALT 20 L Creatine Kinase 47 L CK-MB (CK-2) 5.14 H Discharge - Discharge Clinical Impression: Chest pain Qualifiers: Chest pain type: unspecified Qualified Code(s): R07.9 - Chest pain, unspecified Condition: Stable Disposition: HOME, SELF-CARE Instructions: Chest Pain of Unclear Cause ([facility]) Additional Instructions: Return immediately for any new or worsening symptoms. Follow up with primary care provider, call tomorrow to make followup appointment.
--- NOTE | 2018-01-06 07:52 | RADIOLOGY REPORT (SQ) ---
EXAM DESCRIPTION: CHEST SINGLE VIEW CLINICAL HISTORY: cp COMPARISON: 06/01/2017 FINDINGS: Single frontal view of the chest. Left IJ tunneled hemodialysis catheter. Prior median sternotomy. Atherosclerotic calcification aortic arch. Megaly. No acute osseous abnormalities. No pneumothorax, consolidation, or pleural effusion. Upper abdominal soft tissues are unremarkable. IMPRESSION: 1. No acute pulmonary process identified. Cardiomegaly.
--- NOTE | 2018-01-06 07:59 | EKG REPORT ---
SEVERITY:- ABNORMAL ECG - SINUS RHYTHM FIRST DEGREE AV BLOCK PROBABLE LVH WITH SECONDARY REPOL ABNRM INFERIOR INFARCT, OLD CONSIDER ANTERIOR INFARCT LATERAL LEADS ARE ALSO INVOLVED : Confirmed by: Kevon Madison MD 06-Jan-2018 07:58:43
[2018-01-06 08:43] LABS: HEMATOCRIT 33.7 % (37.9-51.0); HEMOGLOBIN 11.3 g/dL (13.5-17.0); MEAN CORPUSCULAR HEMOGLOBIN 32.7 pg (27.0-33.4); MEAN CORPUSCULAR HGB CONC 33.4 g/dL (32.0-36.0); MEAN CORPUSCULAR VOLUME 98 fl (80-97); PLATELET COUNT 303 10^3/uL (150-450); RED BLOOD COUNT 3.45 10^6/uL (4.35-5.55); WHITE BLOOD COUNT 16.1 10^3/uL (4.0-10.5)
[2018-01-06 08:46] LABS: ALANINE AMINOTRANSFERASE 20 U/L (21-72); ALBUMIN 3.5 g/dL (3.5-5.0); ALKALINE PHOSPHATASE 90 U/L (38-126); ANION GAP 14 (5-19); ASPARTATE AMINO TRANSFERASE 37 U/L (17-59); BILIRUBIN,DIRECT 0.4 mg/dL (0.0-0.4); BILIRUBIN,TOTAL 0.5 mg/dL (0.2-1.3); BLOOD UREA NITROGEN 44 mg/dL (7-20); CARBON DIOXIDE 26 mmol/L (22-30); CHLORIDE 106 mmol/L (98-107); CREATINE KINASE 47 U/L (55-170); GLUCOSE 94 mg/dL (75-110); LIPASE 39.8 U/L (23-300); POTASSIUM 4.1 mmol/L (3.6-5.0); SODIUM 146.2 mmol/L (137-145); TOTAL PROTEIN 7.6 g/dL (6.3-8.2)
[2018-01-06 08:58] LABS: CREATINE KINASE MB 5.14 ng/mL (<4.55)
[2018-01-06 09:03] LABS: TROPONIN I 0.05 ng/mL
[2018-01-06 09:33] LABS: ABSOLUTE LYMPHOCYTES# (MANUAL) 3.7 10^3/uL (0.5-4.7); ABSOLUTE NEUTROPHILS# (MANUAL) 10.5 10^3/uL (1.7-8.2); ANISOCYTOSIS SLIGHT; BASOPHILS % (MANUAL) 0 % (0-2); EOSINOPHILS % (MANUAL) 6 % (0-6); LYMPHOCYTES % (MANUAL) 23 % (13-45); MONOCYTES % (MANUAL) 6 % (3-13); PLATELET COMMENT ADEQUATE; SEGMENTED NEUTROPHILS % (MAN) 65 % (42-78); TOTAL CELLS COUNTED 100; TOXIC GRANULATION SLIGHT; TOXIC VACUOLATION PRESENT
[2018-01-06 14:27] VITALS: BP 151/68
== END 2018-01-06 14:26 | disposition home or self-care (01) ==
LOC: ER 06:58
DX: R07.9 Chest pain, unspecified (principal); R10.10 Upper abdominal pain, unspecified; D72.829 Elevated white blood cell count, unspecified; I12.0 Hypertensive chronic kidney disease with stage 5 chronic kidney disease or end stage renal disease; E11.22 Type 2 diabetes mellitus with diabetic chronic kidney disease; N18.6 End stage renal disease; Z99.2 Dependence on renal dialysis; Z94.0 Kidney transplant status; I25.2 Old myocardial infarction; I25.10 Atherosclerotic heart disease of native coronary artery without angina pectoris; J44.9 Chronic obstructive pulmonary disease, unspecified; Z87.19 Personal history of other diseases of the digestive system; Z95.1 Presence of aortocoronary bypass graft
CPT/HCPCS: 36415; 71045; 80053; 82550; 82553; 83690; 84484; 85025; 93005; 93010; 99285

== ENCOUNTER 2018-02-02 23:17 | Emergency (ER) | payer MEDICARE ==
--- NOTE | 2018-02-02 23:40 | ER Document Report ---
ED General - General Chief Complaint: Diarrhea Stated Complaint: BLOOD IN STOOL Time Seen by Provider: 02/02/18 23:25 Mode of Arrival: Medic Information source: Patient Notes: 62-year-old male with a history of end-stage renal disease, hypertension, coronary artery disease, recent diagnosis of C. difficile presents with complaint of blood in the stool. Patient states that he had one episode of blood in his stool that occurred prior to arrival. Patient denies prior similar symptoms. Denies any fever, chills, nausea, vomiting, abdominal pain, chest pain, shortness of breath. He does admit to some abdominal distention. Patient's primary care physician tested his stool which was positive for C. difficile and started him on Flagyl yesterday. Patient has been receiving vancomycin for a foot wound via dialysis. Patient undergoes dialysis Thursday and Thursday. His last treatment was yesterday. He otherwise feels well and has no complaints. TRAVEL OUTSIDE OF THE [place] IN LAST 30 DAYS: No - HPI Onset: Just prior to arrival Quality of pain: No pain Associated symptoms: Diarrhea. denies: Fever Exacerbated by: Denies Relieved by: Denies Similar symptoms previously: No Recently seen / treated by doctor: No - Related Data Allergies/Adverse Reactions: No Known Allergies Allergy (Verified 01/04/18 11:13) Past Medical History - General Information source: Patient - Social History Smoking Status: Never Smoker Frequency of alcohol use: None Drug Abuse: None Lives with: Spouse/Significant other Family History: CAD, None, Reviewed & Not Pertinent - Past Medical History Cardiac Medical History: Reports: Hx Congestive Heart Failure, Hx Coronary Artery Disease, Hx Heart Attack - QUADRUPLE BYPASS 2007, HEART MURMUR, Hx Hypercholesterolemia, Hx Hypertension Pulmonary Medical History: Reports: Hx Asthma, Hx COPD, Hx Pneumonia - HX. GUILLAIN-BARRE' SYNDROME, Hx Intubation, Hx Respiratory Failure, Hx Sleep Apnea - On C Pap Denies: Hx Bronchitis Neurological Medical History: Reports: Hx Cerebrovascular Accident - 2006. Denies: Hx Seizures Endocrine Medical History: Reports: Hx Diabetes Mellitus Type 1, Hx Diabetes Mellitus Type 2 Renal/ Medical History: Reports: Hx End Stage Renal Disease, Hx Peritoneal Dialysis - started 6 months ago. GI Medical History: Denies: Hx Crohn's Disease, Hx Diverticulitis, Hx Ulcerative Colitis Musculoskeltal Medical History: Denies Hx Arthritis Psychiatric Medical History: Denies: Hx Depression Infectious Medical History: Reports: Hx C-Diff Past Surgical History: Reports: Hx Cardiac Surgery - double bypass, Hx Coronary Artery Bypass Graft - Quadruple bypass 2007, Hx Kidney (Renal Surgery) - RENAL TRANSPLANT, Hx Vascular Surgery - left AV fistual, Other - History peritoneal dialysis catheter placement and removal - Immunizations Immunizations up to date: Yes Hx Diphtheria, Pertussis, Tetanus Vaccination: Yes - UTD Hx Pneumococcal Vaccination: 08/16/16 Review of Systems - Review of Systems Constitutional: denies: Fever, Weakness EENT: denies: Difficulty swallowing, Mouth pain Cardiovascular: denies: Chest pain, Palpitations Respiratory: denies: Wheezing Gastrointestinal: Abdomen distended, Diarrhea, Blood streaked bowels. denies: Abdominal pain, Nausea, Vomiting Genitourinary: denies: Dysuria Male Genitourinary: denies: Penile discharge Musculoskeletal: No symptoms reported Skin: No symptoms reported Physical Exam - Vital signs Vitals: Resp Pulse Ox 17 100 02/02/18 23:30 02/02/18 23:30 Interpretation: Normal - General General appearance: Appears well, Alert - Abdominal Inspection: Normal Distension: Distended Bowel sounds: Normal Tenderness: Nontender. No: Tender, McBurney's point, Guarding, Rebound Organomegaly: No organomegaly - Rectal Tenderness: No Stool: Bloody, Other - bright red blood Hemorrhoids: None Course - Re-evaluation Re-evalutation: 02/03/18 01:27 62-year-old male with history of end-stage renal disease, hypertension, CAD presents with concern for blood in his stool. Patient was recently diagnosed with C. difficile. He started Flagyl yesterday. He states today he noticed his stool was streaked and bright red blood. He denies any abdominal pain, nausea, vomiting. Upon arrival vitals reviewed and within normal limits. He does not appear toxic or dehydrated. He is in no acute distress. CBC shows mild anemia without leukocytosis. BMP is consistent with end-stage renal disease and has a normal potassium. Patient remained stable throughout his ED course. He remains pain-free which makes my suspicion of C. difficile colitis low. I did discuss findings with the patient. He is comfortable with discharge home. We did discuss symptoms that should prompt his return which include active bleeding from the rectum, lightheadedness, shortness of breath, abdominal pain. Laboratory 02/02/18 02/02/18 02/02/18 23:38 23:40 23:40 WBC 15.0 H RBC 3.71 L Hgb 11.9 L Hct 36.3 L MCV 98 H MCH 32.0 MCHC 32.7 RDW 15.3 H Plt Count 323 Seg Neutrophils % 74.0 Lymphocytes % 18.4 Monocytes % 5.9 Eosinophils % 0.6 Basophils % 1.1 Absolute Neutrophils 11.1 H Absolute Lymphocytes 2.8 Absolute Monocytes 0.9 Absolute Eosinophils 0.1 Absolute Basophils 0.2 Sodium 142.1 Potassium 3.9 Chloride 102 Carbon Dioxide 27 Anion Gap 13 BUN 38 H Creatinine 3.66 H Est GFR ( Amer) 20 L Est GFR (Non-Af Amer) 17 L Glucose 298 H Calcium 8.5 Total Bilirubin 0.4 Direct Bilirubin 0.4 Neonat Total Bilirubin Not Reportable Neonat Direct Bilirubin Not Reportable Neonat Indirect Bili Not Reportable AST 19 ALT 27 Alkaline Phosphatase 92 Total Protein 6.9 Albumin 2.9 L Stool Occult Blood POSITIVE - Vital Signs Vital signs: Temp Pulse Resp BP Pulse Ox 20 145/69 H 96 02/03/18 00:31 02/03/18 00:31 02/03/18 00:31 - Laboratory Result Diagrams: 02/02/18 23:40 02/02/18 23:40 Laboratory results interpreted by me: 02/02/18 02/02/18 23:40 23:40 WBC 15.0 H RBC 3.71 L Hgb 11.9 L Hct 36.3 L MCV 98 H RDW 15.3 H Absolute Neutrophils 11.1 H BUN 38 H Creatinine 3.66 H Est GFR ( Amer) 20 L Est GFR (Non-Af Amer) 17 L Glucose 298 H Albumin 2.9 L Discharge - Discharge Clinical Impression: Hematochezia, Clostridium difficile diarrhea, ESRD (end stage renal disease) on dialysis Diabetes Qualifiers: Diabetes mellitus type: type 2 Diabetes mellitus fpc insulin use: with fpc use Diabetes mellitus complication status: without complication Qualified Code(s): E11.9 - Type 2 diabetes mellitus without complications; 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 (Clostridium) Difficile Infection ([facility]) Referrals: KEEGAN MONTENEGRO MD [Primary Care Provider] - Follow up in 3-5 days
[2018-02-02 23:52] LABS: ABSOLUTE BASOPHILS # (AUTO) 0.2 10^3/uL (0.0-0.2); ABSOLUTE EOSINOPHILS # (AUTO) 0.1 10^3/uL (0.0-0.6); ABSOLUTE LYMPHOCYTES (AUTO) 2.8 10^3/uL (0.5-4.7); ABSOLUTE MONOCYTES (AUTO) 0.9 10^3/uL (0.1-1.4); ABSOLUTE NEUT (AUTO) 11.1 10^3/uL (1.7-8.2); BASOPHILS % (AUTO) 1.1 % (0-2); EOSINOPHILS % (AUTO) 0.6 % (0-6); HEMATOCRIT 36.3 % (37.9-51.0); HEMOGLOBIN 11.9 g/dL (13.5-17.0); LYMPHOCYTES % (AUTO) 18.4 % (13-45); MEAN CORPUSCULAR HGB CONC 32.7 g/dL (32.0-36.0); MEAN CORPUSCULAR VOLUME 98 fl (80-97); MONOCYTES % (AUTO) 5.9 % (3-13); PLATELET COUNT 323 10^3/uL (150-450); RED BLOOD COUNT 3.71 10^6/uL (4.35-5.55); RED CELL DISTRIBUTION WIDTH 15.3 % (11.5-14.0); TOTAL CELLS COUNTED % (AUTO) 100 %
[2018-02-03 00:19] LABS: ALANINE AMINOTRANSFERASE 27 U/L (21-72); ALBUMIN 2.9 g/dL (3.5-5.0); ALKALINE PHOSPHATASE 92 U/L (38-126); ANION GAP 13 (5-19); ASPARTATE AMINO TRANSFERASE 19 U/L (17-59); BILIRUBIN,DIRECT 0.4 mg/dL (0.0-0.4); BILIRUBIN,TOTAL 0.4 mg/dL (0.2-1.3); BLOOD UREA NITROGEN 38 mg/dL (7-20); CALCIUM 8.5 mg/dL (8.4-10.2); CARBON DIOXIDE 27 mmol/L (22-30); CHLORIDE 102 mmol/L (98-107); GLUCOSE 298 mg/dL (75-110); POTASSIUM 3.9 mmol/L (3.6-5.0); SODIUM 142.1 mmol/L (137-145); TOTAL PROTEIN 6.9 g/dL (6.3-8.2)
[2018-02-03 02:27] VITALS: BP 150/68
== END 2018-02-03 02:31 | disposition home or self-care (01) ==
LOC: ER 23:17
DX: A04.72 Enterocolitis due to Clostridium difficile, not specified as recurrent (principal); K92.1 Melena; I12.0 Hypertensive chronic kidney disease with stage 5 chronic kidney disease or end stage renal disease; E11.22 Type 2 diabetes mellitus with diabetic chronic kidney disease; N18.6 End stage renal disease; Z99.2 Dependence on renal dialysis; Z79.4 Long term (current) use of insulin; D64.9 Anemia, unspecified; I25.10 Atherosclerotic heart disease of native coronary artery without angina pectoris; J44.9 Chronic obstructive pulmonary disease, unspecified; I25.2 Old myocardial infarction; Z95.1 Presence of aortocoronary bypass graft; Z94.0 Kidney transplant status
CPT/HCPCS: 36415; 80053; 82272; 85025; 99284

== ENCOUNTER 2018-02-19 03:09 | Emergency (ER) | payer MEDICARE ==
[2018-02-19] MEDS ORDERED: SUCRALFATE 1 GM TABLET PO ONE (03:47)
[2018-02-19] MEDS ORDERED: FAMOTIDINE 20 MG TABLET PO ONE (03:48)
--- NOTE | 2018-02-19 03:50 | ER Document Report ---
ED General - General Stated Complaint: ABDOMINAL ISSUES Time Seen by Provider: 02/19/18 03:21 Notes: Patient is a 62-year-old male that comes emergency department for chief complaint of a burning sensation and a sensation of fullness in his upper abdomen that started at about 11 pm last night. Patient states she also felt short of breath, states this lasted about 30 minutes and then resolved. He denies pain in his chest, nausea or vomiting, fever or chills. Past medical history includes chronic kidney disease on dialysis, CHF, type 2 diabetes, CABG , and paraplegia from Guillain-[place]. He is due for dialysis today. TRAVEL OUTSIDE OF THE [place] IN LAST 30 DAYS: No - Related Data Allergies/Adverse Reactions: No Known Allergies Allergy (Verified 01/04/18 11:13) Past Medical History - General Information source: Patient - Social History Smoking Status: Never Smoker Frequency of alcohol use: None Drug Abuse: None Lives with: Family Family History: CAD, None, Reviewed & Not Pertinent - Past Medical History Cardiac Medical History: Reports: Hx Congestive Heart Failure, Hx Coronary Artery Disease, Hx Heart Attack - QUADRUPLE BYPASS 2007, HEART MURMUR, Hx Hypercholesterolemia, Hx Hypertension Pulmonary Medical History: Reports: Hx Asthma, Hx COPD, Hx Pneumonia - HX. GUILLAIN-BARRE' SYNDROME, Hx Intubation, Hx Respiratory Failure, Hx Sleep Apnea - On C Pap Denies: Hx Bronchitis Neurological Medical History: Reports: Hx Cerebrovascular Accident - 2006. Denies: Hx Seizures Endocrine Medical History: Reports: Hx Diabetes Mellitus Type 1, Hx Diabetes Mellitus Type 2 Renal/ Medical History: Reports: Hx End Stage Renal Disease, Hx Peritoneal Dialysis - started 6 months ago. GI Medical History: Denies: Hx Crohn's Disease, Hx Diverticulitis, Hx Ulcerative Colitis Musculoskeltal Medical History: Denies Hx Arthritis Psychiatric Medical History: Denies: Hx Depression Infectious Medical History: Reports: Hx C-Diff Past Surgical History: Reports: Hx Cardiac Surgery - double bypass, Hx Coronary Artery Bypass Graft - Quadruple bypass 2007, Hx Kidney (Renal Surgery) - RENAL TRANSPLANT, Hx Vascular Surgery - left AV fistual, Other - History peritoneal dialysis catheter placement and removal - Immunizations Immunizations up to date: Yes Hx Diphtheria, Pertussis, Tetanus Vaccination: Yes - UTD Hx Pneumococcal Vaccination: 08/16/16 Review of Systems - Review of Systems Constitutional: No symptoms reported EENT: No symptoms reported Cardiovascular: See HPI Respiratory: See HPI Gastrointestinal: See HPI Genitourinary: No symptoms reported Male Genitourinary: No symptoms reported Musculoskeletal: No symptoms reported Skin: No symptoms reported Hematologic/Lymphatic: No symptoms reported Neurological/Psychological: No symptoms reported Physical Exam - Vital signs Vitals: Resp Pulse Ox 17 96 02/19/18 04:17 02/19/18 04:17 Interpretation: Normal - General General appearance: Appears well In distress: None - HEENT Head: Normocephalic, Atraumatic Eyes: Normal Pupils: PERRL - Respiratory Respiratory status: No respiratory distress. No: Respiratory distress, Labored , Tachypnea Chest status: Nontender Breath sounds: Normal. No: Decreased air movement, Rales, Rhonchi, Stridor Chest palpation: Normal - Cardiovascular Rhythm: Regular. No: Tachycardia Heart sounds: Normal auscultation, S1 appreciated, S2 appreciated Murmur: No Normal capillary refill: Yes - Abdominal Inspection: Normal Distension: No distension Bowel sounds: Normal Tenderness: Nontender. No: Guarding Organomegaly: No organomegaly - Back Back: Normal, Nontender - Extremities General upper extremity: Other - Dialysis shunt in place in the left arm, no obvious abnormalities, normal upper extremity exam otherwise General lower extremity: Normal inspection, Nontender, Normal temperature. No: Normal strength - Neurological Neuro grossly intact: Yes Cognition: Normal Orientation: AAOx4 [place] Coma Scale Eye Opening: Spontaneous [place] Coma Scale Verbal: Oriented [place] Coma Scale Motor: Obeys Commands Dominic Coma Scale Total: 15 Speech: Normal Motor strength normal: LUE, RUE, LLE, RLE Sensory: Normal - Psychological Associated symptoms: Normal affect, Normal mood - Skin Skin Temperature: Warm Skin Moisture: Dry Skin Color: Normal Course - Re-evaluation Re-evalutation: EKG with no significant change from prior. Patient hypertensive, not tachycardic, not febrile, he is well-appearing on exam. No noted pain with epigastric palpation although patient reports discomfort in the area and burning. After Carafate and Pepcid burning symptom resolved. He states he still has a fullness but is otherwise with no complaints. CBC unremarkable, chemistry does not show any concerning abnormalities, renal function at baseline, potassium 5.1 , lipase is not elevated. Troponin at patient's baseline. Acute abdominal series showing gas bubble in the exact location of patient's fullness sensation, suspect this is the cause, no obstructive abnormalities, no free air, chest x-ray observed to show mild vascular congestion per my read. No rales on exam, no hypoxia, no tachypnea, no complaints of shortness of breath at this time. Called and spoke with Dr. Girard, he recommends patient can be discharged to have dialysis but asks that Dr. Tavares be contacted first. I spoke with Dr. Tavares, he asks that patient remain here, received morning medications, and then be discharged straight to the dialysis center to have dialysis at that time. Discussed this with patient, he states understanding and agreement. 02/19/18 07:40 Introduced to An Muhammad PA-C at bedside pending transport. Has been given his morning medications. - Vital Signs Vital signs: Temp Pulse Resp BP Pulse Ox 19 205/100 H 95 02/19/18 07:01 02/19/18 07:01 02/19/18 07:01 - Laboratory Result Diagrams: 02/19/18 04:45 02/19/18 04:45 Laboratory results interpreted by me: 02/19/18 02/19/18 02/19/18 04:45 04:45 04:45 RBC 3.90 L Hgb 12.6 L MCV 98 H RDW 16.0 H Potassium 5.1 H Carbon Dioxide 31 H BUN 25 H Creatinine 3.32 H Est GFR ( Amer) 23 L Est GFR (Non-Af Amer) 19 L Glucose 312 H CK-MB (CK-2) 6.60 H Discharge - Discharge Clinical Impression: Upper abdominal pain Hypertension Qualifiers: Hypertension type: unspecified Qualified Code(s): I10 - Essential (primary) hypertension Condition: Stable Disposition: HOME, SELF-CARE Additional Instructions: Your workup does not show any concerning abnormalities at this time other than fluid overload and needing dialysis. I spoke with Dr. Girard and Dr. Guaman this morning, please proceed from this facility to dialysis to have this completed. Follow-up with both Dr. Girard and Dr. Tavares in the office. Return if you worsen including difficulty breathing, fever, vomiting, returned or worsening abdominal pain, or any other concerning symptoms. Referrals: KEEGAN GIRARD MD [Primary Care Provider] - Follow up as needed
[2018-02-19 05:10] LABS: ABSOLUTE EOSINOPHILS # (AUTO) 0.1 10^3/uL (0.0-0.6); ABSOLUTE LYMPHOCYTES (AUTO) 3.5 10^3/uL (0.5-4.7); ABSOLUTE MONOCYTES (AUTO) 0.9 10^3/uL (0.1-1.4); ABSOLUTE NEUT (AUTO) 3.6 10^3/uL (1.7-8.2); BASOPHILS % (AUTO) 0.5 % (0-2); EOSINOPHILS % (AUTO) 1.1 % (0-6); HEMATOCRIT 38.1 % (37.9-51.0); HEMOGLOBIN 12.6 g/dL (13.5-17.0); LYMPHOCYTES % (AUTO) 43.1 % (13-45); MEAN CORPUSCULAR HEMOGLOBIN 32.3 pg (27.0-33.4); MEAN CORPUSCULAR HGB CONC 33.2 g/dL (32.0-36.0); MEAN CORPUSCULAR VOLUME 98 fl (80-97); MONOCYTES % (AUTO) 10.8 % (3-13); PLATELET COUNT 284 10^3/uL (150-450); SEGMENTED NEUTROPHILS % (AUTO) 44.5 % (42-78); TOTAL CELLS COUNTED % (AUTO) 100 %; WHITE BLOOD COUNT 8.1 10^3/uL (4.0-10.5)
[2018-02-19 05:29] LABS: BLOOD UREA NITROGEN 25 mg/dL (7-20); CALCIUM 9.1 mg/dL (8.4-10.2); CARBON DIOXIDE 31 mmol/L (22-30); CHLORIDE 100 mmol/L (98-107); GLUCOSE 312 mg/dL (75-110); POTASSIUM 5.1 mmol/L (3.6-5.0)
[2018-02-19 05:30] LABS: ALANINE AMINOTRANSFERASE 35 U/L (21-72); ALBUMIN 3.6 g/dL (3.5-5.0); ALKALINE PHOSPHATASE 118 U/L (38-126); ANION GAP 13 (5-19); ASPARTATE AMINO TRANSFERASE 38 U/L (17-59); BILIRUBIN,DIRECT 0.4 mg/dL (0.0-0.4); BILIRUBIN,TOTAL 0.5 mg/dL (0.2-1.3); LIPASE 73.3 U/L (23-300); TOTAL PROTEIN 8.1 g/dL (6.3-8.2)
[2018-02-19 05:40] LABS: CREATINE KINASE MB 6.6 ng/mL (<4.55)
[2018-02-19 05:43] LABS: TROPONIN I 0.041 ng/mL
--- NOTE | 2018-02-19 05:51 | RADIOLOGY REPORT (SQ) ---
EXAM DESCRIPTION: ACUTE ABDOMEN SERIES CLINICAL HISTORY: abd discomfort, shortness of breath, abd swelling COMPARISON: None. FINDINGS: Single view of the chest with decubitus and supine images of the abdomen. Cardiomegaly. Prior median sternotomy. Left-sided tunneled dialysis catheter. Pulmonary vascular congestion. No definite pleural effusion or pneumothorax. Low lung volumes. No free intraperitoneal air. Nonobstructive bowel gas pattern. Leads overlie the abdomen. Atherosclerotic vascular calcification. Osteopenia with degenerative change of the hips and spine. No definite organomegaly. IMPRESSION: 1. Cardiomegaly with pulmonary vascular congestion. 2. Nonobstructive bowel gas pattern. No definite free intraperitoneal air.
[2018-02-19] MEDS ORDERED: HYDRALAZINE HCL 25 MG TABLET PO ONE (06:49)
[2018-02-19] MEDS ORDERED: ATORVASTATIN CALCIUM 10 MG TABLET PO ONE (06:49)
[2018-02-19] MEDS ORDERED: METOPROLOL TARTRATE 50 MG TABLET PO ONE (06:49)
[2018-02-19] MEDS ORDERED: PREDNISONE 5 MG TABLET PO ONE (06:50)
[2018-02-19] MEDS ORDERED: TAMSULOSIN HCL 0.4 MG CAP.SR.24H PO ONE (06:50)
--- NOTE | 2018-02-19 10:30 | EKG REPORT ---
SEVERITY:- ABNORMAL ECG - SINUS RHYTHM FIRST DEGREE AV BLOCK PROBABLE LEFT ATRIAL ABNORMALITY LVH WITH SECONDARY REPOLARIZATION ABNORMALITY INFERIOR INFARCT, AGE INDETERMINATE ANTEROLATERAL INFARCT, AGE INDETERMINATE BORDERLINE PROLONGED QT INTERVAL : Confirmed by: Zoe Lazo 19-Feb-2018 10:29:56
[2018-02-19 13:43] VITALS: BP 166/81
== END 2018-02-19 13:58 | disposition home or self-care (01) ==
LOC: ER 03:09
DX: R10.10 Upper abdominal pain, unspecified (principal); I10 Essential (primary) hypertension; Z95.1 Presence of aortocoronary bypass graft; E11.22 Type 2 diabetes mellitus with diabetic chronic kidney disease; I13.2 Hypertensive heart and chronic kidney disease with heart failure and with stage 5 chronic kidney disease, or end stage renal disease; N18.6 End stage renal disease; Z94.0 Kidney transplant status; I25.2 Old myocardial infarction; E78.00 Pure hypercholesterolemia, unspecified; I50.9 Heart failure, unspecified; Z99.2 Dependence on renal dialysis; G82.50 Quadriplegia, unspecified
CPT/HCPCS: 93005; 99285; 36415; 82553; 83690; 85025; 80053; 84484; 74022; 93010; A9270 ×7; J7512

== ENCOUNTER 2018-02-19 18:43 | Emergency (ER) | payer MEDICARE ==
--- NOTE | 2018-02-19 19:00 | ER Document Report ---
ED Medical Screen (RME) - General Chief Complaint: Shortness Of Breath Stated Complaint: SHORTNESS OF BREATH Time Seen by Provider: 02/19/18 18:56 Mode of Arrival: Medic Information source: Patient Notes: Patient is a 62 year old male on dialysis, quadriplegic from [facility] who presents to the ER today after just being discharged at 2 PM by myself for new onset shortness of breath. EMS picked him up at 70% on room air. He did miss his dialysis appointment at 10 AM this morning because he was here in the emergency department and we could not get transportation for him there. He has a dialysis appointment tomorrow at 3 PM. He had no respiratory issues while he was here this morning. He is now complaining of chest heaviness. TRAVEL OUTSIDE OF THE [place] IN LAST 30 DAYS: No - Related Data Allergies/Adverse Reactions: No Known Allergies Allergy (Verified 01/04/18 11:13) Past Medical History - General Information source: Patient - Past Medical History Cardiac Medical History: Reports: Hx Congestive Heart Failure, Hx Coronary Artery Disease, Hx Heart Attack - QUADRUPLE BYPASS 2007, HEART MURMUR, Hx Hypercholesterolemia, Hx Hypertension Pulmonary Medical History: Reports: Hx Asthma, Hx COPD, Hx Pneumonia - HX. GUILLAIN-BARRE' SYNDROME, Hx Intubation, Hx Respiratory Failure, Hx Sleep Apnea - On C Pap Denies: Hx Bronchitis Neurological Medical History: Reports: Hx Cerebrovascular Accident - 2006. Denies: Hx Seizures Endocrine Medical History: Reports: Hx Diabetes Mellitus Type 1, Hx Diabetes Mellitus Type 2 Renal/ Medical History: Reports: Hx End Stage Renal Disease, Hx Peritoneal Dialysis - started 6 months ago. GI Medical History: Denies: Hx Crohn's Disease, Hx Diverticulitis, Hx Ulcerative Colitis Musculoskeltal Medical History: Denies Hx Arthritis Psychiatric Medical History: Denies: Hx Depression Infectious Medical History: Reports: Hx C-Diff Past Surgical History: Reports: Hx Cardiac Surgery - double bypass, Hx Coronary Artery Bypass Graft - Quadruple bypass 2007, Hx Kidney (Renal Surgery) - RENAL TRANSPLANT, Hx Vascular Surgery - left AV fistual, Other - History peritoneal dialysis catheter placement and removal - Immunizations Immunizations up to date: Yes Hx Diphtheria, Pertussis, Tetanus Vaccination: Yes - UTD History of Influenza Vaccine for 08/2017 - 01/2018 Season: Refused Review of Systems - Review of Systems Cardiovascular: See HPI Respiratory: See HPI Physical Exam - Notes Notes: PHYSICAL EXAMINATION: GENERAL: Chronically ill-appearing, but in no acute distress. LUNGS: Rales in bilateral lower lobes, on oxygen HEART: Regular rate and rhythm without murmurs
[2018-02-19 19:16] LABS: ABSOLUTE BASOPHILS # (AUTO) 0.1 10^3/uL (0.0-0.2); ABSOLUTE EOSINOPHILS # (AUTO) 0.1 10^3/uL (0.0-0.6); ABSOLUTE LYMPHOCYTES (AUTO) 2.3 10^3/uL (0.5-4.7); ABSOLUTE MONOCYTES (AUTO) 0.7 10^3/uL (0.1-1.4); ABSOLUTE NEUT (AUTO) 5.3 10^3/uL (1.7-8.2); BASOPHILS % (AUTO) 0.6 % (0-2); EOSINOPHILS % (AUTO) 1.4 % (0-6); HEMATOCRIT 37.9 % (37.9-51.0); HEMOGLOBIN 12.5 g/dL (13.5-17.0); LYMPHOCYTES % (AUTO) 27.3 % (13-45); MEAN CORPUSCULAR HEMOGLOBIN 32.1 pg (27.0-33.4); MEAN CORPUSCULAR VOLUME 97 fl (80-97); MONOCYTES % (AUTO) 7.8 % (3-13); PLATELET COUNT 295 10^3/uL (150-450); RED CELL DISTRIBUTION WIDTH 16.2 % (11.5-14.0); SEGMENTED NEUTROPHILS % (AUTO) 62.9 % (42-78); TOTAL CELLS COUNTED % (AUTO) 100 %; WHITE BLOOD COUNT 8.4 10^3/uL (4.0-10.5)
--- NOTE | 2018-02-19 19:37 | ER Document Report ---
ED Respiratory Problem - General Chief Complaint: Shortness Of Breath Stated Complaint: SHORTNESS OF BREATH Time Seen by Provider: 02/19/18 18:56 Mode of Arrival: Medic Notes: Patient is a 62-year-old male with a history of end-stage renal disease requiring dialysis who comes emergency department for chief complaint of shortness of breath and chest heaviness. He states he cannot lie flat. He was discharged from this facility earlier today and he was supposed to get dialysis this morning, however due to transportation issues he was unable to get there. EMS found him initially 70% pulse oxygen saturation on room air. He currently has not a dialysis appointment set for tomorrow at 3 PM. Past medical history also includes CHF, type 2 diabetes, CABG, and paraplegia from [facility]. TRAVEL OUTSIDE OF THE [place] IN LAST 30 DAYS: No - Related Data Allergies/Adverse Reactions: No Known Allergies Allergy (Verified 01/04/18 11:13) Past Medical History - General Information source: Patient - Social History Smoking Status: Never Smoker Chew tobacco use (# tins/day): No Frequency of alcohol use: None Drug Abuse: None Lives with: Family Family History: CAD, None, Reviewed & Not Pertinent Patient has suicidal ideation: No Patient has homicidal ideation: No - Past Medical History Cardiac Medical History: Reports: Hx Congestive Heart Failure, Hx Coronary Artery Disease, Hx Heart Attack - QUADRUPLE BYPASS 2007, HEART MURMUR, Hx Hypercholesterolemia, Hx Hypertension Pulmonary Medical History: Reports: Hx Asthma, Hx COPD, Hx Pneumonia - HX. GUILLAIN-BARRE' SYNDROME, Hx Intubation, Hx Respiratory Failure, Hx Sleep Apnea - On C Pap Denies: Hx Bronchitis Neurological Medical History: Reports: Hx Cerebrovascular Accident - 2006. Denies: Hx Seizures Endocrine Medical History: Reports: Hx Diabetes Mellitus Type 2 Renal/ Medical History: Reports: Hx End Stage Renal Disease. Denies: Hx Peritoneal Dialysis - hemodialysis GI Medical History: Denies: Hx Crohn's Disease, Hx Diverticulitis, Hx Ulcerative Colitis Musculoskeltal Medical History: Denies Hx Arthritis Psychiatric Medical History: Denies: Hx Depression Infectious Medical History: Reports: Hx C-Diff Past Surgical History: Reports: Hx Cardiac Surgery - double bypass, Hx Coronary Artery Bypass Graft - Quadruple bypass 2007, Hx Kidney (Renal Surgery) - RENAL TRANSPLANT, Hx Vascular Surgery - left AV fistual, Other - History peritoneal dialysis catheter placement and removal - Immunizations Immunizations up to date: Yes Hx Diphtheria, Pertussis, Tetanus Vaccination: Yes - UTD Hx Pneumococcal Vaccination: 08/16/16 Review of Systems - Review of Systems Constitutional: No symptoms reported EENT: No symptoms reported Cardiovascular: No symptoms reported Respiratory: See HPI Gastrointestinal: No symptoms reported Genitourinary: No symptoms reported Male Genitourinary: No symptoms reported Musculoskeletal: No symptoms reported Skin: No symptoms reported Hematologic/Lymphatic: No symptoms reported Neurological/Psychological: No symptoms reported Physical Exam - Vital signs Vitals: Resp 24 H 02/19/18 18:48 Interpretation: Normal - General General appearance: Appears well In distress: None - HEENT Head: Normocephalic, Atraumatic Eyes: Normal Pupils: PERRL - Respiratory Respiratory status: No respiratory distress. No: Respiratory distress, Tachypnea Chest status: Nontender Breath sounds: Other - A few soft rales heard on the left, otherwise clear lung sounds Chest palpation: Normal - Cardiovascular Rhythm: Regular, Tachycardia Heart sounds: Normal auscultation, S1 appreciated, S2 appreciated Murmur: No Normal capillary refill: Yes - Abdominal Inspection: Normal Distension: No distension Bowel sounds: Normal Tenderness: Nontender. No: Tender Organomegaly: No organomegaly - Back Back: Normal, Nontender - Extremities General upper extremity: Normal inspection, Nontender, Normal strength, Normal temperature General lower extremity: Normal inspection, Edema. No: Normal strength - Neurological Neuro grossly intact: Yes Cognition: Normal Orientation: AAOx4 [place] Coma Scale Eye Opening: Spontaneous [place] Coma Scale Verbal: Oriented [place] Coma Scale Motor: Obeys Commands [place] Coma Scale Total: 15 Speech: Normal Cranial nerves: Normal Motor strength normal: LUE, RUE. No: LLE, RLE Sensory: Normal - Psychological Associated symptoms: Normal affect, Normal mood - Skin Skin Temperature: Warm Skin Moisture: Dry Skin Color: Normal Course - Re-evaluation Re-evalutation: Patient with a few soft rales on examination of the lungs, he was hypoxic on initial evaluation without oxygen before being brought to the emergency department, however after nitroglycerin and been placed on oxygen patient has no complaints. He does have new lower extremity swelling which is developed since this morning when I evaluated the patient. Chest x-ray without any significant difference from this morning, this morning the read was vascular congestion, this was not noted at this time, does not appear to be significantly different. However patient's hypoxia and lower extremity swelling along with his complaint of shortness of breath are new. Troponin baseline, potassium is only 5.3, CBC unremarkable. Called and spoke with Dr. Tavares, patient's chief program officer, unfortunately no dialysis will be available for the patient at this hospital this weekend, based on his development of symptoms he recommends that patient be transferred to tertiary care center for dialysis. I discussed this with patient and family at bedside, discussed options, they request [facility]. Spoke with Dr. Hernandez, hospitalist, patient will be accepted for transfer. Patient given his nighttime medication doses including Lopressor 50 mg. 02/20/18 01:22 Transfer team is here, patient evaluated at bedside, no significant change from prior, patient with no current complaints on oxygen, stable for transport. - Vital Signs Vital signs: Temp Pulse Resp BP Pulse Ox 19 186/87 H 100 02/20/18 01:11 02/20/18 01:11 02/20/18 01:11 - Laboratory Result Diagrams: 02/19/18 19:00 02/19/18 19:43 Laboratory results interpreted by me: 02/19/18 02/19/18 02/19/18 19:00 19:43 19:43 RBC 3.90 L Hgb 12.5 L RDW 16.2 H Potassium 5.3 H BUN 28 H Creatinine 3.94 H Est GFR ( Amer) 19 L Est GFR (Non-Af Amer) 16 L Glucose 228 H Creatine Kinase 23 L NT-Pro-B Natriuret Pep 00358 H Albumin 3.1 L Discharge - Discharge Clinical Impression: Shortness of breath, Bilateral lower extremity edema, ESRD needing dialysis, Hypoxia Hypertension Qualifiers: Hypertension type: unspecified Qualified Code(s): I10 - Essential (primary) hypertension Condition: Stable Disposition: [facility] Referrals: KEEGAN MONTENEGRO MD [Primary Care Provider] - Follow up as needed
--- NOTE | 2018-02-19 19:52 | RADIOLOGY REPORT (SQ) ---
EXAM DESCRIPTION: CHEST SINGLE VIEW COMPLETED DATE/TIME: 02/19/2018 7:17 pm REASON FOR STUDY: cp, sob COMPARISON: 01/06/2018 EXAM PARAMETERS: NUMBER OF VIEWS: One view. TECHNIQUE: Single frontal radiographic view of the chest acquired. RADIATION DOSE: NA LIMITATIONS: None. FINDINGS: LUNGS AND PLEURA: No acute opacities, masses or pneumothorax. No pleural effusion. MEDIASTINUM AND HILAR STRUCTURES: Stable. HEART AND VASCULAR STRUCTURES: Stable cardiomegaly. BONES: No acute findings. HARDWARE: Left subclavian dialysis catheter. CABG. OTHER: No other significant finding. IMPRESSION: NO ACUTE RADIOGRAPHIC FINDING IN THE CHEST. TECHNICAL DOCUMENTATION: JOB ID: [id number] [id number] 2010 [employer]- All Rights Reserved Reading location - IP/workstation name: [email or web address]
[2018-02-19] MEDS ORDERED: NITROGLYCERIN 2% OINTMENT 1 GM PACKET TP ONE (20:02)
[2018-02-19 20:10] LABS: ALANINE AMINOTRANSFERASE 34 U/L (21-72); ALBUMIN 3.1 g/dL (3.5-5.0); ALKALINE PHOSPHATASE 125 U/L (38-126); ANION GAP 10 (5-19); ASPARTATE AMINO TRANSFERASE 42 U/L (17-59); BILIRUBIN,DIRECT 0.4 mg/dL (0.0-0.4); BILIRUBIN,TOTAL 0.4 mg/dL (0.2-1.3); BLOOD UREA NITROGEN 28 mg/dL (7-20); CALCIUM 8.7 mg/dL (8.4-10.2); CARBON DIOXIDE 28 mmol/L (22-30); CHLORIDE 104 mmol/L (98-107); CREATINE KINASE 23 U/L (55-170); GLUCOSE 228 mg/dL (75-110); LIPASE 42.8 U/L (23-300); POTASSIUM 5.3 mmol/L (3.6-5.0); SODIUM 141.9 mmol/L (137-145); TOTAL PROTEIN 7.2 g/dL (6.3-8.2)
[2018-02-19 20:19] LABS: CREATINE KINASE MB 4.52 ng/mL (<4.55)
--- NOTE | 2018-02-19 21:03 | EKG REPORT ---
SEVERITY:- ABNORMAL ECG - SINUS RHYTHM FIRST DEGREE AV BLOCK PROBABLE LEFT ATRIAL ABNORMALITY LVH WITH SECONDARY REPOLARIZATION ABNORMALITY INFERIOR INFARCT, OLD ANTEROLATERAL INFARCT, AGE INDETERMINATE : Confirmed by: Zoe Lazo 19-Feb-2018 21:02:45
[2018-02-19] MEDS ORDERED: LISINOPRIL 5 MG TABLET PO ONE (22:52)
[2018-02-19] MEDS ORDERED: METOPROLOL TARTRATE 50 MG TABLET PO ONE (22:52)
[2018-02-19] MEDS ORDERED: ATORVASTATIN CALCIUM 10 MG TABLET PO ONE (22:52)
[2018-02-20 01:17] VITALS: BP 186/87
[2018-02-20 16:21] LABS: TROPONIN I 0.046 ng/mL
== END 2018-02-20 01:30 | disposition short-term general hospital (02) ==
LOC: ER 18:43
DX: R06.02 Shortness of breath (principal); R60.9 Edema, unspecified; I12.0 Hypertensive chronic kidney disease with stage 5 chronic kidney disease or end stage renal disease; N18.6 End stage renal disease; R09.02 Hypoxemia; Z99.2 Dependence on renal dialysis; Z95.1 Presence of aortocoronary bypass graft; J44.9 Chronic obstructive pulmonary disease, unspecified; Z94.0 Kidney transplant status
CPT/HCPCS: 93005; 99285; 36415; 82553; 82550; 83690; 85025; 80053; 84484; 83880; 71045; 93010; A9270 ×4

== ENCOUNTER 2018-02-24 07:28 | Inpatient (IN) | payer MEDICARE ==
[2018-02-24] MEDS ORDERED: NORMAL SALINE 1000 ML 1,000 ML IV ONE (07:52)
[2018-02-24] MEDS ORDERED: METOCLOPRAMIDE HCL ORAL SOLN 10 MG/10 ML UDCUP PO ONE (08:11)
[2018-02-24] MEDS ORDERED: MAG HYDROX/AL HYDROX/SIMETH SUSP 30 ML UDCUP PO ONE (08:11)
[2018-02-24] MEDS ORDERED: LIDOCAINE 2% VISCOUS SOLN 20 ML UDCUP PO ONE (08:11)
--- NOTE | 2018-02-24 10:07 | RADIOLOGY REPORT (SQ) ---
EXAM DESCRIPTION: CT ABD/PELVIS NO ORAL OR IV COMPLETED DATE/TIME: 02/24/2018 9:25 am REASON FOR STUDY: diarrhea COMPARISON: CT abdomen pelvis 09/29/2017 TECHNIQUE: CT scan of the abdomen and pelvis performed without intravenous or oral contrast. Images reviewed with lung, soft tissue, and bone windows. Reconstructed coronal and sagittal MPR images revi ewed. All images stored on PACS. All CT scanners at this facility use dose modulation, iterative reconstruction, and/or weight based d osing when appropriate to reduce radiation dose to as low as reasonably achievable (ALARA). [facility]: Dose Right [facility]: CareDose [facility]: Dose Right [facility]: Teradose 4D [facility]: [employer] RADIATION DOSE: CT Rad equipment meets quality standard of care and radiation dose reduction techniq ues were employed. CTDIvol: 6.9 mGy. DLP: 395 mGy-cm.mGy. LIMITATIONS: None. FINDINGS: The colon is diffusely abnormal, with wall thickening, luminal narrowing and mild surround ing inflammatory change from the cecum to the rectum. Pancolitis from infection or inflammatory lm l disease is favored over ischemic colitis, given long segment of involvement. Stomach, non contrasted small bowel images are unremarkable. No free intraperitoneal air or fluid. LOWER CHEST: Minimal left basilar airspace disease is present atelectasis versus pneumonia. Bilatera l gynecomastia. Cardiomegaly with old sternotomy. Small hiatal hernia. NON-CONTRASTED LIVER, SPLEEN, ADRENALS: Evaluation limited by lack of IV contrast. No identified sign ificant masses. PANCREAS: No masses. No peripancreatic inflammatory changes. GALLBLADDER: Tiny stones in the gallbladder without gallbladder wall thickening or pericholecystic fl uid. KIDNEYS AND URETERS: Small [place] kidneys are present with collecting system stones or dense atherosc lerotic calcification bilaterally. No masses or cysts. Right kidney 7 cm in length, left kidney 8 c m in length. No [place] kidney hydronephrosis or hydroureter. There is a 10 cm right lower quadrant renal transplant kidney. No surrounding inflammatory change in the right lower quadrant. No transpl ant kidney, stones, hydronephrosis, or masses. AORTA AND RETROPERITONEUM: No aneurysm. No retroperitoneal masses or adenopathy. BOWEL AND PERITONEAL CAVITY: As above APPENDIX: Normal. PELVIS, BLADDER, AND ABDOMINAL WALL:Bladder unremarkable. Circumferential rectosigmoid wall thickeni ng and luminal narrowing from inflammation. No free pelvic fluid. No pelvic adenopathy. There is a n old left lower quadrant repaired stoma, with herniation of fat through the defect, best shown on ax ial image 54. BONES: Profound osteoporosis throughout the visualized skeletal structures without compression deform ity. OTHER: No other significant finding. IMPRESSION: Pancolitis Left basilar airspace disease atelectasis versus pneumonia. COMMENT: Quality ID # [id number]: Final reports with documentation of one or more dose reduction techniques (e.g., Automated exposure control, adjustment of the mA and/or kV according to patient size, use of iterative reconstruction technique) TECHNICAL DOCUMENTATION: JOB ID: [id number] [employer]- All Rights Reserved Reading location - IP/workstation name: [email or web address]
[2018-02-24 10:08] LABS: ABSOLUTE BASOPHILS # (AUTO) 0.2 10^3/uL (0.0-0.2); ABSOLUTE EOSINOPHILS # (AUTO) 0.2 10^3/uL (0.0-0.6); ABSOLUTE LYMPHOCYTES (AUTO) 3.7 10^3/uL (0.5-4.7); ABSOLUTE MONOCYTES (AUTO) 1.8 10^3/uL (0.1-1.4); ABSOLUTE NEUT (AUTO) 13.6 10^3/uL (1.7-8.2); EOSINOPHILS % (AUTO) 0.9 % (0-6); HEMATOCRIT 39.2 % (37.9-51.0); HEMOGLOBIN 12.8 g/dL (13.5-17.0); MEAN CORPUSCULAR HEMOGLOBIN 31.8 pg (27.0-33.4); MEAN CORPUSCULAR HGB CONC 32.7 g/dL (32.0-36.0); MEAN CORPUSCULAR VOLUME 97 fl (80-97); PLATELET COUNT 212 10^3/uL (150-450); RED BLOOD COUNT 4.03 10^6/uL (4.35-5.55); RED CELL DISTRIBUTION WIDTH 16.1 % (11.5-14.0); SEGMENTED NEUTROPHILS % (AUTO) 70.1 % (42-78); TOTAL CELLS COUNTED % (AUTO) 100 %; WHITE BLOOD COUNT 19.5 10^3/uL (4.0-10.5)
--- NOTE | 2018-02-24 10:31 | ER Document Report ---
ED General - General Chief Complaint: Diarrhea Stated Complaint: DIARRHEA Time Seen by Provider: 02/24/18 07:34 Mode of Arrival: Medic Information source: Patient Notes: 62 yr old male hx of quadriplegia ophelia musa recently diagnosed with c diff presents with complains of diarrhea. Patient was diagnosed with C. difficile 2 weeks ago has been on vanc and Flagyl per Dr. Xavier, he notes today he had 6 episodes of diarrhea Patient admits to burning this chest TRAVEL OUTSIDE OF THE [place] IN LAST 30 DAYS: No - HPI Onset: This morning Onset/Duration: Sudden Quality of pain: Burning, Cramping Severity: Mild Pain Level: 1 Associated symptoms: Chest pain, Diarrhea Exacerbated by: Denies Relieved by: Denies Similar symptoms previously: Yes Recently seen / treated by doctor: Yes - Related Data Allergies/Adverse Reactions: No Known Allergies Allergy (Verified 01/04/18 11:13) Past Medical History - Social History Smoking Status: Former Smoker Cigarette use (# per day): No Chew tobacco use (# tins/day): No Smoking Education Provided: No Frequency of alcohol use: None Drug Abuse: None Family History: CAD, None, Reviewed & Not Pertinent Patient has suicidal ideation: No Patient has homicidal ideation: No - Past Medical History Cardiac Medical History: Reports: Hx Congestive Heart Failure, Hx Coronary Artery Disease, Hx Heart Attack - QUADRUPLE BYPASS 2007, HEART MURMUR, Hx Hypercholesterolemia, Hx Hypertension Pulmonary Medical History: Reports: Hx Asthma, Hx COPD, Hx Pneumonia - HX. GUILLAIN-BARRE' SYNDROME, Hx Intubation, Hx Respiratory Failure, Hx Sleep Apnea - On C Pap Denies: Hx Bronchitis Neurological Medical History: Reports: Hx Cerebrovascular Accident - 2006. Denies: Hx Seizures Endocrine Medical History: Reports: Hx Diabetes Mellitus Type 1, Hx Diabetes Mellitus Type 2 Renal/ Medical History: Reports: Hx End Stage Renal Disease. Denies: Hx Peritoneal Dialysis - hemodialysis GI Medical History: Denies: Hx Crohn's Disease, Hx Diverticulitis, Hx Ulcerative Colitis Musculoskeltal Medical History: Denies Hx Arthritis Psychiatric Medical History: Denies: Hx Depression Infectious Medical History: Reports: Hx C-Diff Past Surgical History: Reports: Hx Cardiac Surgery - double bypass, Hx Coronary Artery Bypass Graft - Quadruple bypass 2007, Hx Kidney (Renal Surgery) - RENAL TRANSPLANT, Hx Vascular Surgery - left AV fistual, Other - History peritoneal dialysis catheter placement and removal - Immunizations Immunizations up to date: Yes Hx Diphtheria, Pertussis, Tetanus Vaccination: Yes - UTD Hx Pneumococcal Vaccination: 08/16/16 Review of Systems - Review of Systems Notes: REVIEW OF SYSTEMS: CONSTITUTIONAL : Denies fever, chills, or sweats. Denies recent illness. EENT: Denies eye, ear, throat, or mouth pain or symptoms. Denies nasal or sinus congestion or discharge. Denies throat, tongue, or mouth swelling or difficulty swallowing. CARDIOVASCULAR: admits ot right sided chest burning RESPIRATORY: Denies cough, cold, or chest congestion. Denies shortness of breath, difficulty breathing, or wheezing. GASTROINTESTINAL: admits to diarrhea GENITOURINARY: Denies difficulty urinating, painful urination, burning, frequency, blood in urine, or discharge. MUSCULOSKELETAL: Denies back or neck pain or stiffness. Denies joint pain or swelling. SKIN: Denies rash, lesions or sores. HEMATOLOGIC : Denies easy bruising or bleeding. LYMPHATIC: Denies swollen, enlarged glands. NEUROLOGICAL: Denies confusion or altered mental status. Denies passing out or loss of consciousness. Denies dizziness or lightheadedness. Denies headache. Denies weakness or paralysis or loss of use of either side. Denies problems with gait or speech. Denies sensory loss, numbness, or tingling. Denies seizures. PSYCHIATRIC: Denies anxiety or stress. Denies depression, suicidal ideation, or homicidal ideation. ALL OTHER SYSTEMS REVIEWED AND NEGATIVE. Dictation was performed using Open[employer] voice recognition software PHYSICAL EXAMINATION: GENERAL: Well-appearing, well-nourished and in no acute distress. HEAD: Atraumatic, normocephalic. EYES: Pupils equal round and reactive to light, extraocular movements intact, sclera anicteric, conjunctiva are normal. ENT: Nares patent, oropharynx clear without exudates. Moist mucous membranes. NECK: Normal range of motion, supple without lymphadenopathy LUNGS: crackles at the right base HEART: Regular rate and rhythm without murmurs ABDOMEN: Soft, nontender, nondistended abdomen. No guarding, no rebound. No masses appreciated. Musculoskeletal: Patient is paraplegic moving upper extremities with no difficulty NEUROLOGICAL: Cranial nerves grossly intact. Normal speech, normal gait. Normal sensory, motor exams PSYCH: Normal mood, normal affect. SKIN: dialysis access noted Physical Exam - Vital signs Vitals: Resp 16 02/24/18 07:29 Course - Re-evaluation Re-evalutation: 02/24/18 10:50 Pancolitis is noted with possible pneumonia as well Dr. Xavier has been paged 02/24/18 11:07 Dr Xavier requests trop repeat, speak with Dr tavares 02/24/18 11:[address] Tavares he is agreeable to dialyzing patient here 02/24/18 16:47 pts troponin was noted ot have increased mildly, dr xavier feels this is not cardiac in nature and will admit the patient ot dialyze here. - Vital Signs Vital signs: Temp Pulse Resp BP Pulse Ox 19 165/79 H 100 02/24/18 14:01 02/24/18 14:00 02/24/18 14:00 - Laboratory Result Diagrams: 02/24/18 09:56 02/24/18 09:56 Laboratory results interpreted by me: 02/24/18 02/24/18 09:56 09:56 WBC 19.5 H RBC 4.03 L Hgb 12.8 L RDW 16.1 H Absolute Neutrophils 13.6 H Absolute Monocytes 1.8 H Potassium 3.3 L BUN 31 H Creatinine 4.91 H Est GFR ( Amer) 15 L Est GFR (Non-Af Amer) 12 L Glucose 141 H Alkaline Phosphatase 134 H Creatine Kinase < 20 L Albumin 3.1 L - Diagnostic Test Radiology reviewed: Image reviewed - 2 view chest x-ray consistent with right lower lobe pneumonia, Reports reviewed Discharge - Discharge Clinical Impression: Elevated troponin I level, Hypertensive urgency, Axonal GBS (Guillain-Balaton syndrome), ESRD needing dialysis Acute exacerbation of CHF (congestive heart failure) Qualifiers: Heart failure type: unspecified Qualified Code(s): I50.9 - Heart failure, unspecified Condition: Stable Disposition: ADMITTED INPATIENT Admitting Provider: [facility] Admitted: [facility]
[2018-02-24 10:32] LABS: ALANINE AMINOTRANSFERASE 48 U/L (21-72); ALBUMIN 3.1 g/dL (3.5-5.0); ALKALINE PHOSPHATASE 134 U/L (38-126); ANION GAP 16 (5-19); ASPARTATE AMINO TRANSFERASE 37 U/L (17-59); BILIRUBIN,DIRECT 0.4 mg/dL (0.0-0.4); BILIRUBIN,TOTAL 0.5 mg/dL (0.2-1.3); BLOOD UREA NITROGEN 31 mg/dL (7-20); CALCIUM 9.1 mg/dL (8.4-10.2); CARBON DIOXIDE 22 mmol/L (22-30); CHLORIDE 107 mmol/L (98-107); GLUCOSE 141 mg/dL (75-110); LIPASE 36.5 U/L (23-300); POTASSIUM 3.3 mmol/L (3.6-5.0); SODIUM 144.9 mmol/L (137-145); TOTAL PROTEIN 7.6 g/dL (6.3-8.2)
[2018-02-24 10:33] LABS: CREATINE KINASE < 20 U/L (55-170)
[2018-02-24 10:44] LABS: CREATINE KINASE MB 2.81 ng/mL (<4.55)
[2018-02-24 10:46] LABS: TROPONIN I 0.1 ng/mL
[2018-02-24] MEDS ORDERED: VANCOMYCIN HCL INJ 500 MG VIAL PO ONE (11:06)
[2018-02-24] MEDS ORDERED: VANCOMYCIN HCL INJ 500 MG VIAL ONE (11:50)
[2018-02-24] MEDS ORDERED: ACETAMINOPHEN 325 MG TABLET PO PRN (13:30)
[2018-02-24] MEDS ORDERED: ONDANSETRON HCL INJ/PF 4 MG/2 ML SDV IV PRN (13:30)
[2018-02-24] MEDS ORDERED: IPRATROPIUM/ALBUTEROL 0.5-2.5 MG/3 ML AMPUL NEB PRN (13:30)
[2018-02-24] MEDS ORDERED: DEXTROSE 40% GEL 15 GM TUBE PO PRN ×2 (13:40)
[2018-02-24] MEDS ORDERED: DEXTROSE 50%-WATER 25 GM/50 ML DISP.SYRIN IV PRN ×2 (13:40)
[2018-02-24] MEDS ORDERED: GLUCAGON,HUMAN RECOMB 1 MG INJ IM PRN (13:40)
--- NOTE | 2018-02-24 14:04 | EKG REPORT ---
SEVERITY:- ABNORMAL ECG - SINUS RHYTHM FIRST DEGREE AV BLOCK PROBABLE LEFT ATRIAL ABNORMALITY LVH WITH SECONDARY REPOLARIZATION ABNORMALITY INFERIOR INFARCT, OLD ANTEROLATERAL INFARCT, AGE INDETERMINATE : Confirmed by: Kevon Madison MD 24-Feb-2018 14:03:47
[2018-02-24] MEDS ORDERED: CEFTRIAXONE SODIUM 1,000 MG in NORMAL SALINE 100 ML IV ONE (14:30)
[2018-02-24] MEDS ORDERED: POTASSI CL 20 MEQ/50 ML RIDER 20 MEQ/50 ML RTUPB IV ONE ×2 (16:30→22:30)
--- NOTE | 2018-02-24 16:58 | PDOC CONSULTATION ---
Consultation Consult Date: 02/24/18 Consult reason:: Hemodialysis. History of Present Illness Admission Date/PCP: 02/24/18 13:25 KEEGAN MONTENEGRO MD History of Present Illness: KATHRYN HURLEY is a 62 year old male with a history of diabetes mellitus, hypertension, ESRD on hemodialysis, Guillain-Ventura syndrome with quadriparesis is being admitted with complaints of profuse diarrhea with some abdominal pains since last night.Also gave ah/o mild fever this AM.No bloody stools.Also c/o some dyspepsia.No c/o chest pains,dyspnea. He has been in IV vancomycin and ? cephalosporin x almost 4 weeks for chronic right toe ulcer following with [employer] Cert[employer] Project [employer]. He has been diagnosed t have C.Diff colitis. ACT abdomen is positive for Pancolitis and possible pneumonia. 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 Past Medical History Cardiac Medical History: Reports: CHF-Diastolic, Coronary Artery Disease, Hyperlipidemia, Hypertension-primary, Myocardial Infarction - QUADRUPLE BYPASS 2007, HEART MURMUR Pulmonary Medical History: Reports: Asthma, Chronic Obstructive Pulmonary Disease (COPD), Intubation, Pneumonia - HX. GUILLAIN-BARRE' SYNDROME, Respiratory Failure, Sleep Apnea - On C Pap Denies: Bronchitis Neurological Medical History: Denies: Seizures Endocrine Medical History: Reports: Diabetes Mellitus Type 2 Complications of Diabetes: Reports: Nephropathy Renal/ Medical History: Reports: End Stage Renal Disease, Secondary Hyperparathyroidism GI Medical History: Denies: Crohn's Disease, Diverticulitis, Ulcerative Colitis Musculoskeltal Medical History: Denies: Arthritis Psychiatric Medical History: Denies: Depression Infectious Medical History: Reports: Clostridium Difficile Hematology Medical History: Reports Anemia of Chronic Kidney Disease Past Surgical History Past Surgical History: Reports: Coronary Artery Bypass Graft - Quadruple bypass 2007, Vascular Surgery - left AV fistual, Other - History peritoneal dialysis catheter placement and removal Social History Smoking Status: Former Smoker Frequency of Alcohol Use: None Hx Recreational Drug Use: No Drugs: None Hx Prescription Drug Abuse: No - Advance Directive Resuscitation Status: Full Code Family History Parental Family History Reviewed: Yes - Negative for ESRD Children Family History Reviewed: Yes - Negative for CKD Sibling(s) Family History Reviewed.: No Medication/Allergy Allergies/Adverse Reactions: No Known Allergies Allergy (Verified 01/04/18 11:13) Review of Systems Constitutional: PRESENT: fever(s), weakness. ABSENT: headache(s), night sweats Nose, Mouth, and Throat: ABSENT: mouth pain, sore throat, vertigo Cardiovascular: ABSENT: chest pain, dyspnea on exertion, edema, orthropnea, palpitations Gastrointestinal: PRESENT: abdominal pain, diarrhea, heartburn, nausea. ABSENT : coffee ground emesis, constipation, hematemesis, hematochezia, melena Genitourinary: ABSENT: dysuria, hematuria Neurological: ABSENT: abnormal movements, abnormal speech, confusion Hematologic/Lymphatic: ABSENT: easy bruising, lymphadenopathy Physical Exam Vital Signs: Temp Pulse Resp BP Pulse Ox 19 165/79 H 100 02/24/18 14:01 02/24/18 14:00 02/24/18 14:00 Intake & Output 02/23/18 02/24/18 02/25/18 06:59 06:59 06:59 Weight 70.307 kg General appearance: PRESENT: no acute distress Eye exam: PRESENT: conjunctiva pink, EOMI, PERRLA Ear exam: PRESENT: normal external ear exam Mouth exam: PRESENT: moist, neck supple Neck exam: ABSENT: lymphadenopathy, meningismus, tenderness, thyromegaly, tracheal deviation Respiratory exam: PRESENT: clear to auscultation jolie, decreased breath sounds. ABSENT: crackles, rhonchi Cardiovascular exam: PRESENT: +S1, +S2 GI/Abdominal exam: PRESENT: soft. ABSENT: distended, guarding, organomegaly, tenderness Extremities exam: PRESENT: pedal edema Neurological exam: PRESENT: awake, oriented to person, oriented to place Skin exam: PRESENT: dry. ABSENT: cyanosis, erythema Results Impressions: Abdomen/Pelvis CT 02/24/18 08:11 IMPRESSION: Pancolitis Left basilar airspace disease atelectasis versus pneumonia. Assessment & Plan - Diagnosis (1) C. difficile colitis Plan: Patient has been begun on Flagyl p.o. I would also stop his PPI given the fact that it is an independent risk factor for C. difficile colitis. If he needs any medications for acid reflux or for prophylaxis from stress ulcers I would recommend H2 blockers instead and i am starting it. (2) ESRD needing dialysis Plan: Patient is currently being seen on dialysis. He is undergoing dialysis without any issues. Vital signs are stable. Dialysis is being supervised to ensure safe and smooth procedure. Will remove 1l of fluid. Orders were discussed with the treating dialysis nurse. (3) Axonal GBS (Guillain-Bland syndrome) Plan: Severe debilitation. (4) Elevated troponin I level Plan: As per Dr Montenegro. (5) Anemia in chronic kidney disease (CKD) Plan: Presently stable. No indications for erythropoietin. (6) Diabetes mellitus, type II Qualifiers: Plan: Advised on tight control (7) Hypokalemia Plan: Start on IV replacements (8) Leg ulcer Plan: He has been on long-term IV antibiotics in the form of vancomycin and cephalosporin for approximately 4 weeks for the same.
[2018-02-24] MEDS ORDERED: METRONIDAZOLE 500 MG TABLET PO SCH (18:00)
[2018-02-24] MEDS ORDERED: HEPARIN SOD (PORCINE) 1,000 UNIT/ML 10 ML VIAL IV PRN (18:00)
--- NOTE | 2018-02-24 20:14 | CONSULTATION REPORT E ---
Consultation Report NAME: KATHRYN HURLEY : 1955 AGE: 62Y DATE: 02/24/2018 ED20 A TO: PAMELA FINNEGAN M.D. FROM: KEEGAN GIRARD M.D. Requesting Physician HISTORY OF PRESENT ILLNESS: A 62-year-old patient admitted through the emergency room with diarrhea and abdominal pain. Consultation was requested for possible Clostridium difficile. He was diagnosed with Clostridium difficile back in May of 2017, and again about [address] Girard's office. He was treated with Flagyl for 7 days for the most recent infection. His bowels returned to his usual 1 bowel movement every 2 to 3 days until yesterday. He started having severe diarrhea yesterday, with recurrent low abdominal pain. The pain improved after a bowel movement. He denies fever, and there is no nausea or vomiting. He has been on IV vancomycin for the last 6 weeks for a leg infection. He had a CT of the abdomen today that showed pancolitis. Patient has no previous of inflammatory bowel disease. PAST MEDICAL HISTORY: Coronary artery disease, hyperlipidemia, CHF, hypertension, end-stage renal disease on dialysis, COPD, Guillain-Tangent syndrome, diabetes, Clostridium difficile infection. PAST SURGICAL HISTORY: Coronary artery bypass, AV fistula surgery. ALLERGIES: None. SOCIAL HISTORY: Does not smoke nor abuse alcohol. CURRENT MEDICATIONS: Reviewed on the chart. REVIEW OF SYSTEMS: Other than the above, noncontributory. PHYSICAL EXAMINATION: GENERAL: Shows the patient in no distress. He is currently receiving his dialysis. VITAL SIGNS: He has a heart rate of 75, blood pressure of 165/79. HEENT: Has some pallor, but no jaundice. Oropharynx normal. NECK: No bruit. No JVD. CHEST: No deformity. LUNGS: Clear. ABDOMEN: Soft and nontender. Liver and spleen not palpable. Bowel sounds are active. NEUROLOGIC: Not fully examined. He is alert and oriented x3. LABORATORY TESTS: Today showed a white count of 19 with a left shift, hemoglobin of 12.8, creatinine of 4.9, potassium of 3.3. Normal LFTs, except for albumin of 3.1. ASSESSMENT AND PLAN: Acute diarrhea and abnormal GI x-ray. Patient developed severe diarrhea yesterday, though he is feeling better today. He has gone to the bathroom 10 to 20 times since yesterday. I suspect this is recurrent Clostridium difficile infection and his stool test is pending. The pancolitis on the CAT scan with the elevated white count is also consistent with this. The only antibiotic he has used in the last 6 weeks is vancomycin. I will keep him on IV Flagyl 3 times a day and also start him on Dificid for the next 10 days. He probably got his Clostridium difficile infection from vancomycin, so I will avoid the use of this as treatment. He may be a candidate for a clinical study directed at preventing recurrent Clostridium difficile infection. I will follow him in the office. DICTATING PHYSICIAN: PAMELA FINNEGAN M.D. [id number] PHY#: [id number] ID: [id number] JOB#: [id number] ACCT: [id number] cc:Gina HILARIO M.D. >
[2018-02-24] MEDS ORDERED: CLOPIDOGREL BISULFATE 300 MG TABLET PO SCH (21:00)
[2018-02-24 21:28] LABS: CREATINE KINASE MB 4.41 ng/mL (<4.55); TROPONIN I 0.348 ng/mL
[2018-02-24] MEDS ORDERED: CLOPIDOGREL BISULFATE 75 MG TABLET PO ONE (21:30)
[2018-02-24] MEDS ORDERED: METOPROLOL TARTRATE 50 MG TABLET PO SCH (22:00)
[2018-02-24] MEDS ORDERED: PANTOPRAZOLE SODIUM 40 MG VIAL IV SCH (22:00)
[2018-02-24] MEDS ORDERED: METOPROLOL SUCCINATE 25 MG TAB.SR.24H PO SCH (22:00)
[2018-02-24] MEDS: FAMOTIDINE 20 MG TABLET PO SCH (22:04)
[2018-02-24] MEDS: METOPROLOL SUCCINATE 50 MG TAB.SR.24H PO SCH (22:05)
[2018-02-24] MEDS: METRONIDAZOLE 500 MG/NS RTU 100 ML IV SCH (22:10)
[2018-02-24] MEDS: ATORVASTATIN CALCIUM 40 MG TABLET PO SCH (22:10)
[2018-02-24] MEDS: HEPARIN SOD (PORCINE) 5,000 UNIT/ML 1 ML SYRINGE SUBCUT SCH ×2 (22:14→22:31)
[2018-02-25] MEDS ORDERED: VANCOMYCIN HCL INJ 500 MG VIAL PO SCH
[2018-02-25 03:15] LABS: ABSOLUTE BASOPHILS # (AUTO) 0.1 10^3/uL (0.0-0.2); ABSOLUTE EOSINOPHILS # (AUTO) 0.2 10^3/uL (0.0-0.6); ABSOLUTE MONOCYTES (AUTO) 1.4 10^3/uL (0.1-1.4); ABSOLUTE NEUT (AUTO) 7.2 10^3/uL (1.7-8.2); BASOPHILS % (AUTO) 0.5 % (0-2); EOSINOPHILS % (AUTO) 1.9 % (0-6); HEMATOCRIT 37.1 % (37.9-51.0); HEMOGLOBIN 12.2 g/dL (13.5-17.0); LYMPHOCYTES % (AUTO) 30.9 % (13-45); MEAN CORPUSCULAR HEMOGLOBIN 32.1 pg (27.0-33.4); MEAN CORPUSCULAR VOLUME 97 fl (80-97); MONOCYTES % (AUTO) 11.1 % (3-13); PLATELET COUNT 175 10^3/uL (150-450); RED BLOOD COUNT 3.81 10^6/uL (4.35-5.55); RED CELL DISTRIBUTION WIDTH 15.9 % (11.5-14.0); SEGMENTED NEUTROPHILS % (AUTO) 55.6 % (42-78); TOTAL CELLS COUNTED % (AUTO) 100 %; WHITE BLOOD COUNT 12.9 10^3/uL (4.0-10.5)
[2018-02-25 03:38] LABS: BLOOD UREA NITROGEN 17 mg/dL (7-20); CALCIUM 8.8 mg/dL (8.4-10.2); GLUCOSE 94 mg/dL (75-110)
[2018-02-25 03:39] LABS: ANION GAP 11 (5-19); CARBON DIOXIDE 26 mmol/L (22-30); CHLORIDE 107 mmol/L (98-107); POTASSIUM 3.7 mmol/L (3.6-5.0); SODIUM 143.9 mmol/L (137-145)
[2018-02-25 03:50] LABS: CREATINE KINASE MB 3.68 ng/mL (<4.55)
[2018-02-25 03:56] LABS: TROPONIN I 0.36 ng/mL
[2018-02-25] MEDS: METRONIDAZOLE 500 MG/NS RTU 100 ML IV SCH ×3 (05:23→21:57)
[2018-02-25] MEDS: HEPARIN SOD (PORCINE) 5,000 UNIT/ML 1 ML SYRINGE SUBCUT SCH ×3 (05:24→21:54)
--- NOTE | 2018-02-25 07:40 | EKG REPORT ---
SEVERITY:- ABNORMAL ECG - SINUS RHYTHM FIRST DEGREE AV BLOCK INFERIOR INFARCT, OLD CONSIDER ANTERIOR INFARCT LATERAL LEADS ARE ALSO INVOLVED PROLONGED QT INTERVAL : Confirmed by: Kevon Madison MD 25-Feb-2018 07:40:30
--- NOTE | 2018-02-25 08:22 | PDOC PROGRESS REPORT ---
Subjective Progress Note for:: 02/25/18 Subjective:: Patient is currently doing well Since diarrhea is all coming down Patient's C. difficile is negative As per discussed with Dr. Simpson still think patients might have a some C. difficile and order the on of the stool cultures he has denied any chest pain denied any shortness of the breath Reason For Visit: C DIFF COLITIS Physical Exam Vital Signs: Temp Pulse Resp BP Pulse Ox 98.5 F 66 12 161/64 H 97 02/25/18 04:32 02/25/18 06:50 02/25/18 04:32 02/25/18 04:32 02/25/18 04:32 Intake & Output 02/24/18 02/25/18 02/26/18 06:59 06:59 06:59 Intake Total 747 Output Total 1400 Balance -653 Weight 64.8 kg General appearance: PRESENT: no acute distress, well-developed, well-nourished Head exam: PRESENT: atraumatic, normocephalic Eye exam: PRESENT: conjunctiva pink, EOMI, PERRLA. ABSENT: scleral icterus Ear exam: PRESENT: normal external ear exam Mouth exam: PRESENT: moist, tongue midline Neck exam: PRESENT: full ROM. ABSENT: carotid bruit, JVD, lymphadenopathy, thyromegaly Respiratory exam: PRESENT: clear to auscultation jolie Cardiovascular exam: PRESENT: RRR. ABSENT: diastolic murmur, rubs, systolic murmur Pulses: PRESENT: normal dorsalis pedis pul, +2 pedal pulses bilateral Vascular exam: PRESENT: normal capillary refill GI/Abdominal exam: PRESENT: normal bowel sounds, soft. ABSENT: distended, guarding, mass, organolmegaly, rebound, tenderness Rectal exam: PRESENT: deferred Neurological exam: PRESENT: alert, awake, oriented to person, oriented to place , oriented to time, oriented to situation, CN II-XII grossly intact. ABSENT: motor sensory deficit Psychiatric exam: PRESENT: appropriate affect, normal mood. ABSENT: homicidal ideation, suicidal ideation Skin exam: PRESENT: dry, intact, warm. ABSENT: cyanosis, rash Results Laboratory Results: 02/25/18 02:55 02/25/18 02:55 02/25/18 02/25/18 02:55 02:55 WBC 12.9 H RBC 3.81 L Hgb 12.2 L Hct 37.1 L MCV 97 MCH 32.1 MCHC 33.0 RDW 15.9 H Plt Count 175 Seg Neutrophils % 55.6 Lymphocytes % 30.9 Monocytes % 11.1 Eosinophils % 1.9 Basophils % 0.5 Absolute Neutrophils 7.2 Absolute Lymphocytes 4.0 Absolute Monocytes 1.4 Absolute Eosinophils 0.2 Absolute Basophils 0.1 Sodium 143.9 Potassium 3.7 Chloride 107 Carbon Dioxide 26 Anion Gap 11 BUN 17 Creatinine 2.83 H Est GFR ( Amer) 28 L Est GFR (Non-Af Amer) 23 L Glucose 94 Calcium 8.8 Magnesium 1.7 02/24/18 02/24/18 02/25/18 20:45 20:45 02:55 Creatine Kinase 33 L 25 L CK-MB (CK-2) 4.41 Troponin I 0.348 02/25/18 02:55 Creatine Kinase CK-MB (CK-2) 3.68 Troponin I 0.360 Impressions: Abdomen/Pelvis CT 02/24/18 08:11 IMPRESSION: Pancolitis Left basilar airspace disease atelectasis versus pneumonia. Assessment & Plan - Diagnosis (1) C. difficile colitis Is this a current diagnosis for this admission?: Yes Plan: Continues IV Flagyl Repeat the C. difficile (2) ESRD needing dialysis Is this a current diagnosis for this admission?: Yes Plan: on hd consult dr johnson (3) Elevated troponin I level Is this a current diagnosis for this admission?: Yes Plan: consult dr mar no s/o any acute cad (4) Leg ulcer Is this a current diagnosis for this admission?: Yes (5) Anemia in chronic kidney disease (CKD) Is this a current diagnosis for this admission?: Yes (6) Chest pain Qualifiers: Chest pain type: unspecified Qualified Code(s): R07.9 - Chest pain, unspecified Is this a current diagnosis for this admission?: Yes Plan: r/o acs (7) Coronary artery disease Qualifiers: Coronary Disease-Associated Artery/Lesion type: [place] artery [place] vs. transplanted heart: [place] heart Associated angina: without angina Qualified Code(s): I25.10 - Atherosclerotic heart disease of [place] coronary artery without angina pectoris Is this a current diagnosis for this admission?: Yes (8) Cough Is this a current diagnosis for this admission?: Yes (9) Diabetes mellitus, type II Qualifiers: Is this a current diagnosis for this admission?: Yes (10) History of kidney transplant Is this a current diagnosis for this admission?: Yes (11) Axonal GBS (Guillain-[place] syndrome) Is this a current diagnosis for this admission?: Yes - Time Time Spent with patient: 15-24 minutes Medications reviewed and adjusted accordingly: Yes Anticipated discharge: Home Within: Other - Inpatient Certification Medical Necessity: Need Close Monitoring Due to Risk of Patient Decompensation, Need for IV Antibiotics Post Hospital Care: D/C [employer] Documentation - Plan Summary Plan Summary: Patient is currently doing well
[2018-02-25] MEDS ORDERED: LISINOPRIL 5 MG TABLET PO SCH (10:00)
[2018-02-25] MEDS ORDERED: CEFTRIAXONE 1 GM/D5W RTU 1 GM/50 ML RTUPB IV SCH (10:00)
[2018-02-25] MEDS ORDERED: ATORVASTATIN CALCIUM 10 MG TABLET PO SCH (10:00)
[2018-02-25] MEDS: CLOPIDOGREL BISULFATE 75 MG TABLET PO SCH (10:14)
[2018-02-25] MEDS: FAMOTIDINE 20 MG TABLET PO SCH ×2 (10:14→21:55)
[2018-02-25] MEDS: ISOSORBIDE MONONITRATE 30 MG TAB.ER.24H PO SCH (10:15)
[2018-02-25] MEDS: TAMSULOSIN HCL 0.4 MG CAP.SR.24H PO SCH (10:15)
[2018-02-25] MEDS: PREDNISONE 5 MG TABLET PO SCH (10:15)
[2018-02-25] MEDS: METOPROLOL SUCCINATE 50 MG TAB.SR.24H PO SCH ×2 (10:15→21:56)
[2018-02-25 10:24] LABS: CREATINE KINASE MB 5.29 ng/mL (<4.55); TROPONIN I 0.337 ng/mL
--- NOTE | 2018-02-25 11:33 | PDOC CONSULTATION ---
Consultation Consult Date: 02/24/18 Attending physician:: KEEGAN MONTENEGRO Consult reason:: Abnormal troponin I elevation and chest pain History of Present Illness Admission Date/PCP: 02/24/18 13:25 KEEGAN MONTENEGRO MD Patient complains of: Chest discomfort History of Present Illness: KATHRYN HURLEY is a 62 year old male with hx of quadriplegia guillane bare recently diagnosed with c diff presents with complains of diarrhea. Patient was diagnosed with C. difficile 2 weeks ago has been on vanc and Flagyl per Dr. Montenegro, he notes today he had 6 episodes of diarrhea. Patient admits to burning this chest. This was noted in the emergency room. Currently chest pain-free. Patient did have troponin I level obtained which were noted to be positive. Patient was subsequently admitted. Twelve-lead EKG did not show any significant ST-T wave changes. I was asked to evaluate patient because of positive troponin I and history of chest discomfort. Past Medical History Cardiac Medical History: Reports: Congestive Heart Failure, Coronary Artery Disease, Myocardial Infarction - QUADRUPLE BYPASS 2007, HEART MURMUR, Hyperlipidema, Hypertension Pulmonary Medical History: Reports: Asthma, Chronic Obstructive Pulmonary Disease (COPD), Intubation, Pneumonia - HX. GUILLAIN-BARRE' SYNDROME, Respiratory Failure, Sleep Apnea - On C Pap Denies: Bronchitis Neurological Medical History: Denies: Seizures Endocrine Medical History: Reports: Diabetes Mellitus Type 1, Diabetes Mellitus Type 2 Renal/ Medical History: Reports: End Stage Renal Disease GI Medical History: Reports: Gastroesophageal Reflux Disease Denies: Crohn's Disease, Diverticulitis, Ulcerative Colitis Musculoskeltal Medical History: Denies: Arthritis Psychiatric Medical History: Denies: Depression Hematology: Reports: Anemia Infectious Medical History: Reports: Clostridium Difficile Past Surgical History Past Surgical History: Reports: Cardiac Catheterization, Coronary Artery Bypass Graft - Quadruple bypass 2007, Renal Transplant, Vascular Surgery - left AV fistual, Other - History peritoneal dialysis catheter placement and removal Social History Information Source: Patient Smoking Status: Former Smoker Frequency of Alcohol Use: None Hx Recreational Drug Use: No Drugs: None Hx Prescription Drug Abuse: No - Advance Directive Resuscitation Status: Full Code Family History Family History: CAD, None, Reviewed & Not Pertinent Parental Family History Reviewed: Yes Children Family History Reviewed: Yes Sibling(s) Family History Reviewed.: Yes Medication/Allergy Home Medications: Atorvastatin Calcium [Lipitor 10 mg Tablet] 10 mg PO BID 02/24/18 Fidaxomicin [Dificid 200 mg Tablet] 200 mg PO BID 10 Days #20 tablet 02/24/18 Isosorbide Mononitrate [Isosorbide Mononitrate ER] 30 mg PO DAILY 02/24/18 Lisinopril [Prinivil 5 mg Tablet] 5 mg PO DAILY 02/24/18 Metoprolol Tartrate [Lopressor 50 mg Tablet] 50 mg PO Q12 02/24/18 Omeprazole 20 mg PO DAILY 02/24/18 Prednisone [Deltasone 5 mg Tablet] 5 mg PO DAILY 02/24/18 Tamsulosin HCl [Flomax 0.4 mg Cap.sr] 0.4 mg PO DAILY 02/24/18 Allergies/Adverse Reactions: No Known Allergies Allergy (Verified 01/04/18 11:13) Review of Systems Review of Systems: Please see history of present illness and past medical history as wall. Constitutional: No fever or chills reported. Head : No recent chronic headaches, recent head injury. Eyes: No recent eye pain, diplopia, redness, discharge, acute visual changes. Ears: No recent chronic ear pain, acute hearing loss, ear discharge. Oral cavity: No recent ulcerations, bleeding, oral cavity discomfort. Neck: No recent acute neck pain reported. Hematologic: No recent easy bruising or bleeding or hematologic malignancy reported. Lymphatic: No recent lymphatic malignancy, chronic lymphadenopathy reported yet Cardiovascular system review: See history of present illness. History of coronary artery disease and is status post coronary artery bypass graft surgery. Respiratory system review: No recent chronic cough, hemoptysis, blood clots in the lungs reported. Gastrointestinal system review: Recent diarrhea noted. No real abdominal pain, no hematemesis melena history. Genitourinary system review: No recent acute or chronic hematuria, flank pain, UTI etc. reported. Skin system review: Negative for any recent abnormal bruising, no rash, no pruritus reported. Neurologic: No prior history of strokes, mini strokes, seizure disorder. Psychologic: No history of major psychosis or major depression reported. Musculoskeletal: Minor aches and pains reported. No acute joint swelling reported. Patient has paraplegia quite significant from previous [place] syndrome Endocrine: No recent polyuria, polydipsia, recent heat or cold intolerance. Physical Exam Vital Signs: Temp Pulse Resp BP Pulse Ox 98.6 F 68 17 149/69 H 98 02/25/18 08:27 02/25/18 08:27 02/25/18 08:27 02/25/18 08:27 02/25/18 08:27 Intake & Output 02/24/18 02/25/18 02/26/18 06:59 06:59 06:59 Intake Total 747 Output Total 1400 Balance -653 Weight 64.8 kg Exam: GENERAL: well-nourished and in no acute distress. Alert and oriented x3 HEAD: Atraumatic, normocephalic. EYES: Pupils equal round and reactive to light, extraocular movements intact, sclera anicteric, conjunctiva are normal. ENT: TMs normal, nares patent, oropharynx clear without exudates. Moist mucous membranes. No oral ulcerations or bleeding gums noted NECK: supple without lymphadenopathy. Trachea is central. No cervical or axillary lymphadenopathy noted. Carotids are 2+, JVD WNL LUNGS: Respiration seems nonlabored, no significant accessory muscle action noted. Breath sounds clear to auscultation bilaterally and equal noted. No wheezes rales or rhonchi noted. No significant dullness noted on percussion. CHEST: Palpation of the chest wall shows no significant chest wall tenderness. No other significant abnormalities noted. 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 ABDOMEN: Soft, no significant tenderness appreciated, normoactive bowel sounds. No guarding, no rebound. No rigidity noted . No masses appreciated. EXTREMITIES: Pedal pulses are 1-2+, no calf tenderness noted. No clubbing or cyanosis. Trace to 1+ pedal edema noted NEUROLOGICAL: Focused neurological exam showed no significant neurologic deficit. Normal speech, no focal weakness appreciated. 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 PSYCH: Normal mood, normal affect. Judgment and insight within normal limits. SKIN: No significant ecchymosis, skin is noted to be warm. MUSCULOSKELETAL EXAM: No significant acute joint swelling noted. Chronic paraplegia noted. Results Laboratory Results: 02/25/18 02:55 02/25/18 02:55 02/25/18 02/25/18 02/25/18 02:55 02:55 08:40 WBC 12.9 H RBC 3.81 L Hgb 12.2 L Hct 37.1 L MCV 97 MCH 32.1 MCHC 33.0 RDW 15.9 H Plt Count 175 Seg Neutrophils % 55.6 Lymphocytes % 30.9 Monocytes % 11.1 Eosinophils % 1.9 Basophils % 0.5 Absolute Neutrophils 7.2 Absolute Lymphocytes 4.0 Absolute Monocytes 1.4 Absolute Eosinophils 0.2 Absolute Basophils 0.1 Sodium 143.9 Potassium 3.7 Chloride 107 Carbon Dioxide 26 Anion Gap 11 BUN 17 Creatinine 2.83 H Est GFR ( Amer) 28 L Est GFR (Non-Af Amer) 23 L Glucose 94 Calcium 8.8 Magnesium 1.7 Stool Occult Blood NEGATIVE Stool for White Cells 02/25/18 08:40 WBC RBC Hgb Hct MCV MCH MCHC RDW Plt Count Seg Neutrophils % Lymphocytes % Monocytes % Eosinophils % Basophils % Absolute Neutrophils Absolute Lymphocytes Absolute Monocytes Absolute Eosinophils Absolute Basophils Sodium Potassium Chloride Carbon Dioxide Anion Gap BUN Creatinine Est GFR ( Amer) Est GFR (Non-Af Amer) Glucose Calcium Magnesium Stool Occult Blood Stool for White Cells MANY H 02/24/18 02/24/18 02/25/18 20:45 20:45 02:55 Creatine Kinase 33 L 25 L CK-MB (CK-2) 4.41 Troponin I 0.348 02/25/18 02/25/18 02/25/18 02:55 09:39 09:39 Creatine Kinase 30 L CK-MB (CK-2) 3.68 5.29 H Troponin I 0.360 0.337 EKG Comments: Shows sinus rhythm, evidence of prior inferior and anterior NV. Nonspecific T- wave inversion noted in lead I and aVL. Impressions: Abdomen/Pelvis CT 02/24/18 08:11 IMPRESSION: Pancolitis Left basilar airspace disease atelectasis versus pneumonia. Assessment & Plan - Diagnosis (2) Elevated troponin I level Is this a current diagnosis for this admission?: Yes (3) Hypertension Qualifiers: Hypertension type: essential hypertension Qualified Code(s): I10 - Essential (primary) hypertension Is this a current diagnosis for this admission?: Yes (4) Hyperlipidemia Qualifiers: Hyperlipidemia type: unspecified Qualified Code(s): E78.5 - Hyperlipidemia , unspecified Is this a current diagnosis for this admission?: Yes (5) Coronary artery disease Qualifiers: Coronary Disease-Associated Artery/Lesion type: unspecified vessel or lesion type [place] vs. 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 Patient has known CAD. He had burning sensation in the chest and also positive troponin I. Patient has significant comorbid diagnosis therefore will try optimize medical management. Once stabilized will consider doing a nuclear stress test. At this point have ordered a 2D echo, switched patient to metoprolol succinate, increased Lipitor to 40 mg a day and added Plavix to the regimen. Elevated troponin I: Most likely related to cardiac ischemia. Medical management been optimized. Hypertension: Blood pressure still mildly elevated. Will optimize medical management. Hyperlipidemia: LDL goal is less than 70. Recommend high potency statin therapy. Coronary artery disease: Please see management plans in the chest pain and elevated troponin I. End-stage renal disease: Patient currently on dialysis. 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 Being managed by bulk station operator. Mitral regurgitation: A 2D echo was ordered to evaluate this further. On auscultation, the heart murmur does seem somewhat more prominent. - Time Time Spent: 30 to 50 Minutes - CODE STATUS was discussed, patient remains full code. Surrogate decision-maker patient's . Multiple medical problems were addressed. More than 50% of the time spent coordinating care, discussing management plans with involved caregivers. Management plans discussed with involved personnels. Medical decision making was of moderate to high complexity , patient's has multiple comorbidities. Medications reviewed and adjusted accordingly: Yes
--- NOTE | 2018-02-25 11:51 | PDOC PROGRESS REPORT ---
Subjective Progress Note for:: 02/25/18 Subjective:: Patient seems to be doing better with gradual improvement. Pt is denying any chest arm or neck discomfort. Patient denying any PND, orthopnea. Patient denied any sustained palpitations, dizziness, syncope, near syncope. Patient denying any fever chills. Patient denying any other significant discomfort. Patient is maintaining sinus rhythm. Review of systems: Rest review of systems negative. Medications: Medications have been reviewed. Reason For Visit: C DIFF COLITIS Physical Exam Vital Signs: Temp Pulse Resp BP Pulse Ox 98.6 F 68 17 149/69 H 98 02/25/18 08:27 02/25/18 08:27 02/25/18 08:27 02/25/18 08:27 02/25/18 08:27 Intake & Output 02/24/18 02/25/18 02/26/18 06:59 06:59 06:59 Intake Total 747 Output Total 1400 Balance -653 Weight 64.8 kg Exam: GENERAL: well-nourished and in no acute distress. Alert and oriented x3 HEAD: Atraumatic, normocephalic. EYES: Pupils equal round and reactive to light, extraocular movements intact, sclera anicteric, conjunctiva are normal. ENT: TMs normal, nares patent, oropharynx clear without exudates. Moist mucous membranes. No oral ulcerations or bleeding gums noted NECK: supple without lymphadenopathy. Trachea is central. No cervical or axillary lymphadenopathy noted. Carotids are 2+, JVD WNL LUNGS: Respiration seems nonlabored, no significant accessory muscle action noted. Breath sounds clear to auscultation bilaterally and equal noted. No wheezes rales or rhonchi noted. No significant dullness noted on percussion. CHEST: Palpation of the chest wall shows no significant chest wall tenderness. No other significant abnormalities noted. 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 ABDOMEN: Soft, no significant tenderness appreciated, normoactive bowel sounds. No guarding, no rebound. No rigidity noted . No masses appreciated. EXTREMITIES: Pedal pulses are 1-2+, no calf tenderness noted. No clubbing or cyanosis. negative pedal edema noted NEUROLOGICAL: Focused neurological exam showed no significant neurologic deficit. Normal speech, significant paraplegia noted. PSYCH: Normal mood, normal affect. Judgment and insight within normal limits. SKIN: No significant ecchymosis, skin is noted to be warm. MUSCULOSKELETAL EXAM: No significant acute joint swelling noted. Results Laboratory Results: 02/25/18 02:55 02/25/18 02:55 02/25/18 02/25/18 02/25/18 02:55 02:55 08:40 WBC 12.9 H RBC 3.81 L Hgb 12.2 L Hct 37.1 L MCV 97 MCH 32.1 MCHC 33.0 RDW 15.9 H Plt Count 175 Seg Neutrophils % 55.6 Lymphocytes % 30.9 Monocytes % 11.1 Eosinophils % 1.9 Basophils % 0.5 Absolute Neutrophils 7.2 Absolute Lymphocytes 4.0 Absolute Monocytes 1.4 Absolute Eosinophils 0.2 Absolute Basophils 0.1 Sodium 143.9 Potassium 3.7 Chloride 107 Carbon Dioxide 26 Anion Gap 11 BUN 17 Creatinine 2.83 H Est GFR ( Amer) 28 L Est GFR (Non-Af Amer) 23 L Glucose 94 Calcium 8.8 Magnesium 1.7 Stool Occult Blood NEGATIVE Stool for White Cells 02/25/18 08:40 WBC RBC Hgb Hct MCV MCH MCHC RDW Plt Count Seg Neutrophils % Lymphocytes % Monocytes % Eosinophils % Basophils % Absolute Neutrophils Absolute Lymphocytes Absolute Monocytes Absolute Eosinophils Absolute Basophils Sodium Potassium Chloride Carbon Dioxide Anion Gap BUN Creatinine Est GFR ( Amer) Est GFR (Non-Af Amer) Glucose Calcium Magnesium Stool Occult Blood Stool for White Cells MANY H 02/24/18 02/24/18 02/25/18 20:45 20:45 02:55 Creatine Kinase 33 L 25 L CK-MB (CK-2) 4.41 Troponin I 0.348 02/25/18 02/25/18 02/25/18 02:55 09:39 09:39 Creatine Kinase 30 L CK-MB (CK-2) 3.68 5.29 H Troponin I 0.360 0.337 Impressions: Abdomen/Pelvis CT 02/24/18 08:11 IMPRESSION: Pancolitis Left basilar airspace disease atelectasis versus pneumonia. Assessment & Plan - Diagnosis (2) Elevated troponin I level Is this a current diagnosis for this admission?: Yes (3) Hypertension Qualifiers: Hypertension type: essential hypertension Qualified Code(s): I10 - Essential (primary) hypertension Is this a current diagnosis for this admission?: Yes (4) Hyperlipidemia Qualifiers: Hyperlipidemia type: unspecified Qualified Code(s): E78.5 - Hyperlipidemia , unspecified Is this a current diagnosis for this admission?: Yes (5) Coronary artery disease Qualifiers: Coronary Disease-Associated Artery/Lesion type: unspecified vessel or lesion type [place] vs. transplanted heart: [place] heart Associated angina: angina presence unspecified Qualified Code(s): I25.10 - Atherosclerotic heart disease of [place] coronary artery without angina pectoris Is this a current diagnosis for this admission?: Yes (6) ESRD needing dialysis Is this a current diagnosis for this admission?: Yes - Notes Notes: Chest discomfort: Possible unstable angina. Patient has known CAD. He had burning sensation in the chest and also positive troponin I. Patient has significant comorbid diagnosis therefore will try optimize medical management. Once stabilized will consider doing a nuclear stress test. At this point have ordered a 2D echo, switched patient to metoprolol succinate, increased Lipitor to 40 mg a day and added Plavix to the regimen. Today increased metoprolol succinate to 100 mg p.o. twice daily. Discussed scheduling stress test with the patient. Will schedule for tomorrow. Elevated troponin I: Most likely related to cardiac ischemia. Medical management been optimized. Hypertension: Blood pressure still mildly elevated. Will optimize medical management. Hyperlipidemia: LDL goal is less than 70. Recommend high potency statin therapy. Coronary artery disease: Please see management plans in the chest pain and elevated troponin I. End-stage renal disease: Patient currently on dialysis. 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 Being managed by valance cutter. - Time Time with patient: Greater than 35 minutes - CODE STATUS was discussed, patient remains full code. Surrogate decision-maker unchanged. Multiple medical problems were addressed. More than 50% of the time spent coordinating care, discussing management plans with involved caregivers. Management plans discussed with involved personnels. Medical decision making was of moderate to high complexity, patient's has multiple comorbidities. Medications reviewed and adjusted accordingly: Yes
[2018-02-25] MEDS ORDERED: CEFTRIAXONE SODIUM 1,000 MG in NORMAL SALINE 100 ML IV SCH (12:00)
--- NOTE | 2018-02-25 12:49 | PDOC H&P ---
History of Present Illness Admission Date/PCP: 02/24/18 13:25 KEEGAN MONTENEGRO MD Patient complains of: Diarrhea /abdominal discomfort/ History of Present Illness: KATHRYN HURLEY is a 62 year old male pt came with c/o loose stool started last night pt dx with c diff last wk and put on flagyl last wk pt also on iv vancomycin per wound care for last 6 wk done also last wk pt was c/o mild cheat pain but feel like acid refulx pt also c/o mild abd cremp pt denied any sob c/o mild cough no fever no chills . Past Medical History Cardiac Medical History: Reports: Congestive Heart Failure, Coronary Artery Disease, Myocardial Infarction - QUADRUPLE BYPASS 2007, HEART MURMUR, Hyperlipidema, Hypertension Pulmonary Medical History: Reports: Asthma, Chronic Obstructive Pulmonary Disease (COPD), Intubation, Pneumonia - HX. GUILLAIN-BARRE' SYNDROME, Respiratory Failure, Sleep Apnea - On C Pap Denies: Bronchitis Neurological Medical History: Denies: Seizures Endocrine Medical History: Reports: Diabetes Mellitus Type 2 Renal/ Medical History: Reports: End Stage Renal Disease GI Medical History: Reports: Gastroesophageal Reflux Disease Denies: Crohn's Disease, Diverticulitis, Ulcerative Colitis Musculoskeltal Medical History: Denies: Arthritis Psychiatric Medical History: Denies: Depression Hematology: Reports: Anemia Infectious Medical History: Reports: Clostridium Difficile Past Surgical History Past Surgical History: Reports: Cardiac Catheterization, Coronary Artery Bypass Graft - Quadruple bypass 2007, Renal Transplant, Vascular Surgery - left AV fistual, Other - History peritoneal dialysis catheter placement and removal Social History Smoking Status: Former Smoker Frequency of Alcohol Use: None Hx Recreational Drug Use: No Drugs: None Hx Prescription Drug Abuse: No - Advance Directive Resuscitation Status: Full Code Family History Family History: CAD, None, Reviewed & Not Pertinent Parental Family History Reviewed: Yes Children Family History Reviewed: Yes Sibling(s) Family History Reviewed.: Yes Medication/Allergy Allergies/Adverse Reactions: No Known Allergies Allergy (Verified 01/04/18 11:13) Review of Systems Constitutional: PRESENT: weakness. ABSENT: chills, fever(s), headache(s), weight gain, weight loss Eyes: ABSENT: visual disturbances Ears: ABSENT: hearing changes Cardiovascular: ABSENT: chest pain, dyspnea on exertion, edema, orthropnea, palpitations Respiratory: PRESENT: cough. ABSENT: hemoptysis Gastrointestinal: PRESENT: abdominal pain, diarrhea. ABSENT: constipation, hematemesis, hematochezia, nausea, vomiting Genitourinary: ABSENT: dysuria, hematuria Musculoskeletal: ABSENT: joint swelling Integumentary: ABSENT: rash, wounds Neurological: ABSENT: abnormal gait, abnormal speech, confusion, dizziness, focal weakness, syncope Psychiatric: ABSENT: anxiety, depression, homidical ideation, suicidal ideation Endocrine: ABSENT: cold intolerance, heat intolerance, menstrual abnormalities, polydipsia, polyuria Hematologic/Lymphatic: ABSENT: easy bleeding, easy bruising, lymphadenopathy Physical Exam Vital Signs: Temp Pulse Resp BP Pulse Ox 19 165/79 H 100 02/24/18 14:01 02/24/18 14:00 02/24/18 14:00 Intake & Output 02/23/18 02/24/18 02/25/18 06:59 06:59 06:59 Weight 70.307 kg General appearance: PRESENT: no acute distress, well-developed, well-nourished Head exam: PRESENT: atraumatic, normocephalic Eye exam: PRESENT: conjunctiva pink, EOMI, PERRLA. ABSENT: scleral icterus Ear exam: PRESENT: normal external ear exam Mouth exam: PRESENT: moist, tongue midline Neck exam: PRESENT: full ROM. ABSENT: carotid bruit, JVD, lymphadenopathy, thyromegaly Respiratory exam: PRESENT: clear to auscultation jolie Cardiovascular exam: PRESENT: RRR. ABSENT: diastolic murmur, rubs, systolic murmur Pulses: PRESENT: normal dorsalis pedis pul, +2 pedal pulses bilateral Vascular exam: PRESENT: normal capillary refill GI/Abdominal exam: PRESENT: normal bowel sounds, soft. ABSENT: distended, guarding, mass, organolmegaly, rebound, tenderness Rectal exam: PRESENT: deferred Extremities exam: ABSENT: pedal edema Neurological exam: PRESENT: alert, awake, oriented to person, oriented to place , oriented to time, oriented to situation, CN II-XII grossly intact. ABSENT: motor sensory deficit Additional comments: paraplagic Psychiatric exam: PRESENT: appropriate affect, normal mood. ABSENT: homicidal ideation, suicidal ideation Skin exam: PRESENT: dry, intact, warm. ABSENT: cyanosis, rash Results Impressions: Abdomen/Pelvis CT 02/24/18 08:11 IMPRESSION: Pancolitis Left basilar airspace disease atelectasis versus pneumonia. Assessment & Plan - Diagnosis (1) C. difficile colitis Is this a current diagnosis for this admission?: Yes Plan: pt have recuurent c diff colitis we consult dr franco . (2) ESRD needing dialysis Is this a current diagnosis for this admission?: Yes Plan: on hd consult dr johnson (3) Elevated troponin I level Is this a current diagnosis for this admission?: Yes Plan: consult dr mar no s/o any acute cad (4) Leg ulcer Qualifiers: Laterality: right Is this a current diagnosis for this admission?: Yes (5) Anemia in chronic kidney disease (CKD) Qualifiers: Chronic kidney disease stage: on chronic dialysis Qualified Code(s): N18.6 - End stage renal disease; D63.1 - Anemia in chronic kidney disease; D63.1 - Anemia in chronic kidney disease; Z99.2 - Dependence on renal dialysis; Z99.2 - Dependence on renal dialysis; Z99.2 - Dependence on renal dialysis; Z99.2 - Dependence on renal dialysis Is this a current diagnosis for this admission?: Yes (6) Chest pain Qualifiers: Chest pain type: unspecified Qualified Code(s): R07.9 - Chest pain, unspecified Is this a current diagnosis for this admission?: Yes Plan: r/o acs (7) Coronary artery disease Qualifiers: Coronary Disease-Associated Artery/Lesion type: [place] artery [place] vs. 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
--- NOTE | 2018-02-25 13:22 | PDOC PROGRESS REPORT ---
Subjective Progress Note for:: 02/25/18 Subjective:: Patient seen today laying in his bed. Yesterday he had several episodes of diarrhea. Today he says that he has only had a couple incidences of diarrhea. He denies chest pain, SOB, fevers or chills. Currently awaiting stool culture results. Reason For Visit: C DIFF COLITIS Physical Exam Vital Signs: Temp Pulse Resp BP Pulse Ox 98.2 F 71 17 167/80 H 99 02/25/18 12:42 02/25/18 12:42 02/25/18 12:42 02/25/18 12:42 02/25/18 12:42 Intake & Output 02/24/18 02/25/18 02/26/18 06:59 06:59 06:59 Intake Total 747 100 Output Total 1400 Balance -653 100 Weight 64.8 kg General appearance: PRESENT: no acute distress, well-developed, well-nourished Mouth exam: PRESENT: moist, neck supple Neck exam: PRESENT: full ROM. ABSENT: JVD Respiratory exam: PRESENT: clear to auscultation jolie. ABSENT: accessory muscle use, crackles, rales, rhonchi, stridor, wheezes Cardiovascular exam: PRESENT: +S1, +S2 GI/Abdominal exam: PRESENT: soft. ABSENT: distended, guarding, organomegaly, tenderness Extremities exam: PRESENT: pedal edema, +1 edema. ABSENT: tenderness Musculoskeletal exam: ABSENT: normal inspection, tenderness Neurological exam: PRESENT: alert, awake, oriented to person, oriented to place , oriented to time, oriented to situation Psychiatric exam: PRESENT: appropriate affect, normal mood Skin exam: PRESENT: dry, intact, warm. ABSENT: cyanosis Results Laboratory Results: 02/25/18 02:55 02/25/18 02:55 02/25/18 02/25/18 02/25/18 02:55 02:55 08:40 WBC 12.9 H RBC 3.81 L Hgb 12.2 L Hct 37.1 L MCV 97 MCH 32.1 MCHC 33.0 RDW 15.9 H Plt Count 175 Seg Neutrophils % 55.6 Lymphocytes % 30.9 Monocytes % 11.1 Eosinophils % 1.9 Basophils % 0.5 Absolute Neutrophils 7.2 Absolute Lymphocytes 4.0 Absolute Monocytes 1.4 Absolute Eosinophils 0.2 Absolute Basophils 0.1 Sodium 143.9 Potassium 3.7 Chloride 107 Carbon Dioxide 26 Anion Gap 11 BUN 17 Creatinine 2.83 H Est GFR ( Amer) 28 L Est GFR (Non-Af Amer) 23 L Glucose 94 Calcium 8.8 Magnesium 1.7 Stool Occult Blood NEGATIVE Stool for White Cells 02/25/18 08:40 WBC RBC Hgb Hct MCV MCH MCHC RDW Plt Count Seg Neutrophils % Lymphocytes % Monocytes % Eosinophils % Basophils % Absolute Neutrophils Absolute Lymphocytes Absolute Monocytes Absolute Eosinophils Absolute Basophils Sodium Potassium Chloride Carbon Dioxide Anion Gap BUN Creatinine Est GFR ( Amer) Est GFR (Non-Af Amer) Glucose Calcium Magnesium Stool Occult Blood Stool for White Cells MANY H 02/24/18 02/24/18 02/25/18 20:45 20:45 02:55 Creatine Kinase 33 L 25 L CK-MB (CK-2) 4.41 Troponin I 0.348 02/25/18 02/25/18 02/25/18 02:55 09:39 09:39 Creatine Kinase 30 L CK-MB (CK-2) 3.68 5.29 H Troponin I 0.360 0.337 Impressions: Abdomen/Pelvis CT 02/24/18 08:11 IMPRESSION: Pancolitis Left basilar airspace disease atelectasis versus pneumonia. Assessment & Plan - Diagnosis (1) ESRD needing dialysis Is this a current diagnosis for this admission?: Yes Plan: currently stable, will set him up for dialysis tomorrow. (2) C. 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
[2018-02-25] MEDS: INSULIN LISPRO 100 UNIT/ML 3 ML VIAL SUBCUT PRN ×2 (18:09→21:54)
[2018-02-25] MEDS: MAG HYDROX/AL HYDROX/SIMETH SUSP 30 ML UDCUP PO PRN (20:54)
[2018-02-25] MEDS: LISINOPRIL 5 MG TABLET PO SCH (21:55)
[2018-02-25] MEDS: ATORVASTATIN CALCIUM 40 MG TABLET PO SCH (21:56)
[2018-02-25] MEDS ORDERED: METOPROLOL SUCCINATE 50 MG TAB.SR.24H PO SCH (22:00)
[2018-02-25] MEDS ORDERED: METOPROLOL SUCCINATE 25 MG TAB.SR.24H PO SCH (22:00)
[2018-02-26 04:55] LABS: ABSOLUTE BASOPHILS # (AUTO) 0.1 10^3/uL (0.0-0.2); ABSOLUTE EOSINOPHILS # (AUTO) 0.2 10^3/uL (0.0-0.6); ABSOLUTE LYMPHOCYTES (AUTO) 3.8 10^3/uL (0.5-4.7); ABSOLUTE MONOCYTES (AUTO) 1.1 10^3/uL (0.1-1.4); ABSOLUTE NEUT (AUTO) 4.5 10^3/uL (1.7-8.2); BASOPHILS % (AUTO) 0.6 % (0-2); EOSINOPHILS % (AUTO) 2.4 % (0-6); HEMATOCRIT 33.2 % (37.9-51.0); HEMOGLOBIN 10.9 g/dL (13.5-17.0); MEAN CORPUSCULAR HEMOGLOBIN 31.9 pg (27.0-33.4); MEAN CORPUSCULAR HGB CONC 32.8 g/dL (32.0-36.0); MEAN CORPUSCULAR VOLUME 97 fl (80-97); MONOCYTES % (AUTO) 11.8 % (3-13); PLATELET COUNT 207 10^3/uL (150-450); RED BLOOD COUNT 3.41 10^6/uL (4.35-5.55); RED CELL DISTRIBUTION WIDTH 15.5 % (11.5-14.0); SEGMENTED NEUTROPHILS % (AUTO) 46.2 % (42-78); TOTAL CELLS COUNTED % (AUTO) 100 %; WHITE BLOOD COUNT 9.7 10^3/uL (4.0-10.5)
[2018-02-26 05:18] LABS: ANION GAP 16 (5-19); BLOOD UREA NITROGEN 30 mg/dL (7-20); CALCIUM 8.6 mg/dL (8.4-10.2); CARBON DIOXIDE 21 mmol/L (22-30); CHLORIDE 109 mmol/L (98-107); GLUCOSE 144 mg/dL (75-110); POTASSIUM 3.6 mmol/L (3.6-5.0); SODIUM 146.3 mmol/L (137-145)
[2018-02-26] MEDS: HEPARIN SOD (PORCINE) 5,000 UNIT/ML 1 ML SYRINGE SUBCUT SCH ×3 (05:28→21:38)
[2018-02-26] MEDS: METRONIDAZOLE 500 MG/NS RTU 100 ML IV SCH ×3 (05:29→21:39)
--- NOTE | 2018-02-26 10:58 | PDOC PROGRESS REPORT ---
Subjective Progress Note for:: 02/26/18 Subjective:: Patient is currently feeling better still complaining some abdominal discomfort , still a little bit loose stoolBut much better Patient's denied any chest pain denied any shortness of the breath This is scheduled for the stress test today Reason For Visit: C DIFF COLITIS Physical Exam Vital Signs: Temp Pulse Resp BP Pulse Ox 98.0 F 61 18 173/76 H 100 02/26/18 08:01 02/26/18 08:01 02/26/18 08:01 02/26/18 08:01 02/26/18 08:01 Intake & Output 02/25/18 02/26/18 02/27/18 06:59 06:59 06:59 Intake Total 747 1322 Output Total 1400 Balance -653 1322 Weight 64.8 kg 67.6 kg General appearance: PRESENT: no acute distress, well-developed, well-nourished Head exam: PRESENT: atraumatic, normocephalic Eye exam: PRESENT: conjunctiva pink, EOMI, PERRLA. ABSENT: scleral icterus Ear exam: PRESENT: normal external ear exam Mouth exam: PRESENT: moist, tongue midline Neck exam: PRESENT: full ROM. ABSENT: carotid bruit, JVD, lymphadenopathy, thyromegaly Respiratory exam: PRESENT: clear to auscultation jolie Cardiovascular exam: PRESENT: RRR. ABSENT: diastolic murmur, rubs, systolic murmur Pulses: PRESENT: normal dorsalis pedis pul, +2 pedal pulses bilateral Vascular exam: PRESENT: normal capillary refill GI/Abdominal exam: PRESENT: normal bowel sounds, soft. ABSENT: distended, guarding, mass, organolmegaly, rebound, tenderness Rectal exam: PRESENT: deferred Neurological exam: PRESENT: alert, awake, oriented to person, oriented to place , oriented to time, oriented to situation. ABSENT: motor sensory deficit Psychiatric exam: PRESENT: appropriate affect, normal mood. ABSENT: homicidal ideation, suicidal ideation Skin exam: PRESENT: dry, intact, warm. ABSENT: cyanosis, rash Results Laboratory Results: 02/26/18 04:17 02/26/18 04:17 02/26/18 02/26/18 04:17 04:17 WBC 9.7 RBC 3.41 L Hgb 10.9 L Hct 33.2 L MCV 97 MCH 31.9 MCHC 32.8 RDW 15.5 H Plt Count 207 Seg Neutrophils % 46.2 Lymphocytes % 39.0 Monocytes % 11.8 Eosinophils % 2.4 Basophils % 0.6 Absolute Neutrophils 4.5 Absolute Lymphocytes 3.8 Absolute Monocytes 1.1 Absolute Eosinophils 0.2 Absolute Basophils 0.1 Sodium 146.3 H Potassium 3.6 Chloride 109 H Carbon Dioxide 21 L Anion Gap 16 BUN 30 H Creatinine 4.01 H Est GFR ( Amer) 18 L Est GFR (Non-Af Amer) 15 L Glucose 144 H Calcium 8.6 Magnesium 1.9 02/24/18 02/24/18 02/25/18 20:45 20:45 02:55 Creatine Kinase 33 L 25 L CK-MB (CK-2) 4.41 Troponin I 0.348 02/25/18 02/25/18 02/25/18 02:55 09:39 09:39 Creatine Kinase 30 L CK-MB (CK-2) 3.68 5.29 H Troponin I 0.360 0.337 Impressions: Abdomen/Pelvis CT 02/24/18 08:11 IMPRESSION: Pancolitis Left basilar airspace disease atelectasis versus pneumonia. Assessment & Plan - Diagnosis (1) C. difficile colitis Is this a current diagnosis for this admission?: Yes Plan: Patient's2 stool is negative the patient's toxin sent to the hospital by the Dr. Simpson and as per discussed with him suggest continues to IV Flagyl (2) ESRD needing dialysis Is this a current diagnosis for this admission?: Yes Plan: on hd consult dr johnson (3) Elevated troponin I level Is this a current diagnosis for this admission?: Yes Plan: Scheduled for the stress test today (4) Leg ulcer Is this a current diagnosis for this admission?: Yes (5) Anemia in chronic kidney disease (CKD) Is this a current diagnosis for this admission?: Yes (6) Chest pain Qualifiers: Chest pain type: unspecified Qualified Code(s): R07.9 - Chest pain, unspecified Is this a current diagnosis for this admission?: Yes Plan: Scheduled a stress test today (7) Coronary artery disease Qualifiers: Coronary Disease-Associated Artery/Lesion type: [place] artery [place] vs. 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) Is this a current diagnosis for this admission?: Yes (12) Recurrent urinary tract infection Is this a current diagnosis for this admission?: Yes Plan: We will wait for the culture and sensitivity report - Time Time Spent with patient: 15-24 minutes Anticipated discharge: Other Within: Other - Inpatient Certification Medical Necessity: Significant Comorbidiites Make Outpatient Treatment Too Risky , Need Close Monitoring Due to Risk of Patient Decompensation, Need for IV Antibiotics Post Hospital Care: D/C [employer] Documentation - Plan Summary Plan Summary: Discussed with the patient and the and discussed with the Dr. Simpson continues to current medications patient is going to stay in the weekend
[2018-02-26] MEDS: FAMOTIDINE 20 MG TABLET PO SCH (12:02)
[2018-02-26] MEDS: CLOPIDOGREL BISULFATE 75 MG TABLET PO SCH (12:02)
[2018-02-26] MEDS: TAMSULOSIN HCL 0.4 MG CAP.SR.24H PO SCH (12:02)
[2018-02-26] MEDS: PREDNISONE 5 MG TABLET PO SCH (12:03)
[2018-02-26] MEDS: METOPROLOL SUCCINATE 50 MG TAB.SR.24H PO SCH ×2 (12:03→21:38)
[2018-02-26] MEDS: ISOSORBIDE MONONITRATE 30 MG TAB.ER.24H PO SCH (12:03)
--- NOTE | 2018-02-26 12:21 | DRAGON STRESS TEST REPORT ---
INTRAVENOUS LEXISCAN CARDIOLITE STRESS TEST USING SINGLE PHOTON EMMISION COMPUTERIZED TOMOGRAPHIC. DATE OF PROCEDURE: February 26, 2018, INDICATION : Chest pain CARDIAC RISK FACTORS: Hypertension, dyslipidemia, history of coronary artery disease RESTING EKG: Sinus rhythm, abnormal Q waves noted inferiorly, also nonprogression of R-wave V1 to V4 and abnormal Q waves in V3 V4 and V5. Minor nonspecific ST-T wave changes noted STRESS EKG: No significant ST segment changes noted with LexiScan bolus REASON FOR TERMINATION: Protocol. PROCEDURE REPORT: Baseline heart rate 59 beats per minute with blood pressure of 144/77. Patient had no significant complaints. Patient was bolused with Lexiscan 0.4 mg intravenously followed by saline bolus. Heart rate at 2 minutes post bolus 81 with a blood pressure of 127/72. 3 minutes post bolus heart rate 79 with blood pressure of 129/72. No significant EKG changes were noted. Patient had no significant complaints during the procedure or postprocedure. Patient injected with Aminophyllin 75 mg at 3 minutes or later after Lexiscan bolus. CONCLUSIONS: Normal EKG and hemodynamic response to IV LexiScan. NUCLEAR DATA: At rest the patient was given 10.77 millicuries of technetium 99 sestamibi injected intravenously. As per protocol rest gated SPECT images were obtained. On day of stress test, the patient was given intravenous LexiScan at a dose of 0.4 mg in 5 mL intravenously, followed by flush with normal saline. Subsequently the stress dose of 30.4 millicuries of technetium 99 sestamibi was injected intravenously. As per protocol stress gated images were obtained. NUCLEAR INTERPRETATION: Both raw and processed data were used for interpretation. Visual, qualitative, computer-generated quantitative data was used. There was good myocardial uptake of technetium compound. Motion artifact and soft tissue attenuations were noted. Increased visceral uptake was noted. No definitive areas of transient perfusion defect noted, No definitive areas of fixed perfusion defect or scars noted. EKG gated imaging showed LV EF at 35 %, rest and stress gated EF similar visually. T. I D. ratio was 1.30. Lung heart ratio noted to be within normal limits 0.29. No significant extracardiac and abnormal radiotracer activities were noted. RV free wall uptake was noted to be WNL. IMPRESSION: Also refer to comments under nuclear interpretation. Also test results needs to be interpreted in the context of pretest probability. 1. Predominantly fixed defect noted involving the LV apex, inferoapex and distal anterior wall with probable minimal surrounding ischemia. 2. EKG gated imaging shows left ventricular ejection fraction of approx. 35 %. Diffuse hypokinesia along with akinesia of the LV apex and inferoapex. Mild hypokinesia of the distal anterior wall. 3. Mild transient ischemic dilatation noted. Clinical correlation requested as occasionally single vessel disease or balanced ischemia could be missed. In approximately 10% of the cases Lexiscan may not cause adequate vasodilatory stress. RECOMMENDATIONS: Aggressive risk factor modification and medical management. Further evaluation such as with heart catheterization may be needed if continued symptoms or other high risk indicators are noted on clinical evaluation. Patient has other significant comorbid diagnosis therefore risk benefit assessment may need to be made. Close cardiology follow-up is also recommended. Clinical correlation with echocardiogram derived ejection fraction. Inability to exercise by itself can lead to increased cardiovascular event risks. Consider cardiology consultation and or follow-up if clinically indicated. 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 ANJALI
[2018-02-26] MEDS ORDERED: AMINOPHYLLINE INJ/PF 250 MG/10 ML SDV IV ONE (12:36)
[2018-02-26] MEDS ORDERED: REGADENOSON INJ 0.4 MG/5 ML DISP.SYRIN IV ONE (12:36)
--- NOTE | 2018-02-26 16:35 | PDOC PROGRESS REPORT ---
Subjective Progress Note for:: 02/26/18 Reason For Visit: Patient seen today on dialysis. He is undergoing dialysis without any issues. He still continues to have diarrhea but it is much better. He denies any abdominal pains, fever or chills.He denies any history of chest pain or shortness of breath. He just had a stress test this morning and is awaiting the results.Labs and medications were reviewed with the patient. Orders were discussed with the treating dialysis nurse. Physical Exam Vital Signs: Temp Pulse Resp BP Pulse Ox 98.2 F 63 18 171/73 H 100 02/26/18 12:54 02/26/18 14:30 02/26/18 12:54 02/26/18 12:54 02/26/18 12:54 Intake & Output 02/25/18 02/26/18 02/27/18 06:59 06:59 06:59 Intake Total 747 1322 222 Output Total 1400 Balance -653 1322 222 Weight 64.8 kg 67.6 kg General appearance: PRESENT: no acute distress Respiratory exam: PRESENT: clear to auscultation jolie. ABSENT: crackles, rhonchi Cardiovascular exam: PRESENT: +S1, +S2 GI/Abdominal exam: PRESENT: soft. ABSENT: distended, guarding, organomegaly, tenderness Extremities exam: PRESENT: pedal edema Neurological exam: PRESENT: awake, oriented to person, oriented to place Psychiatric exam: PRESENT: appropriate affect Results Laboratory Results: 02/26/18 04:17 02/26/18 04:17 02/26/18 02/26/18 04:17 04:17 WBC 9.7 RBC 3.41 L Hgb 10.9 L Hct 33.2 L MCV 97 MCH 31.9 MCHC 32.8 RDW 15.5 H Plt Count 207 Seg Neutrophils % 46.2 Lymphocytes % 39.0 Monocytes % 11.8 Eosinophils % 2.4 Basophils % 0.6 Absolute Neutrophils 4.5 Absolute Lymphocytes 3.8 Absolute Monocytes 1.1 Absolute Eosinophils 0.2 Absolute Basophils 0.1 Sodium 146.3 H Potassium 3.6 Chloride 109 H Carbon Dioxide 21 L Anion Gap 16 BUN 30 H Creatinine 4.01 H Est GFR ( Amer) 18 L Est GFR (Non-Af Amer) 15 L Glucose 144 H Calcium 8.6 Magnesium 1.9 02/24/18 02/24/18 02/25/18 20:45 20:45 02:55 Creatine Kinase 33 L 25 L CK-MB (CK-2) 4.41 Troponin I 0.348 02/25/18 02/25/18 02/25/18 02:55 09:39 09:39 Creatine Kinase 30 L CK-MB (CK-2) 3.68 5.29 H Troponin I 0.360 0.337 Impressions: Abdomen/Pelvis CT 02/24/18 08:11 IMPRESSION: Pancolitis Left basilar airspace disease atelectasis versus pneumonia. Assessment & Plan - Diagnosis (1) C. difficile colitis Plan: As per Dr. Girard. Currently improving. (2) ESRD needing dialysis Is this a current diagnosis for this admission?: Yes Plan: Patient is currently being seen on dialysis. He is undergoing dialysis without any issues. Vital signs are stable. Dialysis is being supervised to ensure safe and smooth procedure. Will remove 1l of fluid. Orders were discussed with the treating dialysis nurse.Next dialysis will be on Thursday. 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 (4) Elevated troponin I level Is this a current diagnosis for this admission?: Yes Plan: Had a stress test this morning and awaiting results. (5) Anemia in chronic kidney disease (CKD) Is this a current diagnosis for this admission?: Yes Plan: Presently stable. No indications for erythropoietin. (6) Diabetes mellitus, type II Qualifiers: Is this a current diagnosis for this admission?: Yes Plan: Advised on tight control (7) Hypokalemia Plan: Stable. Monitor. (8) Leg ulcer Is this a current diagnosis for this admission?: Yes Plan: He has been on long-term IV antibiotics in the form of vancomycin and cephalosporin for approximately 4 weeks for the same.
[2018-02-26] MEDS ORDERED: HEPARIN SOD (PORCINE) 1,000 UNIT/ML 10 ML VIAL IV PRN (16:41)
--- NOTE | 2018-02-26 20:30 | PDOC PROGRESS REPORT ---
Subjective Progress Note for:: 02/26/18 Subjective:: Patient seems to be doing better with gradual improvement. Pt is denying any chest arm or neck discomfort. Patient denying any PND, orthopnea. Patient denied any sustained palpitations, dizziness, syncope, near syncope. Patient denying any fever chills. Patient denying any other significant discomfort. Patient is maintaining sinus rhythm. Review of systems: Rest review of systems negative. Medications: Medications have been reviewed. Reason For Visit: C DIFF COLITIS Physical Exam Vital Signs: Temp Pulse Resp BP Pulse Ox 97.6 F 67 20 171/73 H 99 02/26/18 19:33 02/26/18 19:33 02/26/18 19:33 02/26/18 19:33 02/26/18 19:33 Intake & Output 02/25/18 02/26/18 02/27/18 06:59 06:59 06:59 Intake Total 747 1322 222 Output Total 1400 0 Balance -653 1322 222 Weight 64.8 kg 67.6 kg Exam: GENERAL: well-nourished and in no acute distress. Alert and oriented x3 HEAD: Atraumatic, normocephalic. EYES: Pupils equal round and reactive to light, extraocular movements intact, sclera anicteric, conjunctiva are normal. ENT: TMs normal, nares patent, oropharynx clear without exudates. Moist mucous membranes. No oral ulcerations or bleeding gums noted NECK: supple without lymphadenopathy. Trachea is central. No cervical or axillary lymphadenopathy noted. Carotids are 2+, JVD WNL LUNGS: Respiration seems nonlabored, no significant accessory muscle action noted. Breath sounds clear to auscultation bilaterally and equal noted. No wheezes rales or rhonchi noted. No significant dullness noted on percussion. CHEST: Palpation of the chest wall shows no significant chest wall tenderness. No other significant abnormalities noted. 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 ABDOMEN: Soft, no significant tenderness appreciated, normoactive bowel sounds. No guarding, no rebound. No rigidity noted . No masses appreciated. EXTREMITIES: Pedal pulses are 1-2+, no calf tenderness noted. No clubbing or cyanosis. Trace to 1+ pedal edema noted NEUROLOGICAL: Focused neurological exam showed no significant neurologic deficit. 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 PSYCH: Normal mood, normal affect. Judgment and insight within normal limits. SKIN: No significant ecchymosis, skin is noted to be warm. MUSCULOSKELETAL EXAM: No significant acute joint swelling noted. Bilateral lower extremity weakness noted Results Laboratory Results: 02/26/18 04:17 02/26/18 04:17 18 02/26/18 04:17 04:17 WBC 9.7 RBC 3.41 L Hgb 10.9 L Hct 33.2 L MCV 97 MCH 31.9 MCHC 32.8 RDW 15.5 H Plt Count 207 Seg Neutrophils % 46.2 Lymphocytes % 39.0 Monocytes % 11.8 Eosinophils % 2.4 Basophils % 0.6 Absolute Neutrophils 4.5 Absolute Lymphocytes 3.8 Absolute Monocytes 1.1 Absolute Eosinophils 0.2 Absolute Basophils 0.1 Sodium 146.3 H Potassium 3.6 Chloride 109 H Carbon Dioxide 21 L Anion Gap 16 BUN 30 H Creatinine 4.01 H Est GFR ( Amer) 18 L Est GFR (Non-Af Amer) 15 L Glucose 144 H Calcium 8.6 Magnesium 1.9 02/24/18 02/24/18 02/25/18 20:45 20:45 02:55 Creatine Kinase 33 L 25 L CK-MB (CK-2) 4.41 Troponin I 0.348 02/25/18 02/25/18 02/25/18 02:55 09:39 09:39 Creatine Kinase 30 L CK-MB (CK-2) 3.68 5.29 H Troponin I 0.360 0.337 Impressions: Abdomen/Pelvis CT 02/24/18 08:11 IMPRESSION: Pancolitis Left basilar airspace disease atelectasis versus pneumonia. Assessment & Plan - Diagnosis (2) Elevated troponin I level Is this a current diagnosis for this admission?: Yes (3) Hypertension Qualifiers: Hypertension type: essential hypertension Qualified Code(s): I10 - Essential (primary) hypertension Is this a current diagnosis for this admission?: Yes (4) Hyperlipidemia Qualifiers: Hyperlipidemia type: unspecified Qualified Code(s): E78.5 - Hyperlipidemia , unspecified Is this a current diagnosis for this admission?: Yes (5) Coronary artery disease Qualifiers: Coronary Disease-Associated Artery/Lesion type: unspecified vessel or lesion type [place] vs. 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 Patient advised maximization of medical management. However if he continues to have chest pain then heart catheterization may become indicated. Patient agrees with this approach. Chest discomfort: Possible unstable angina. Patient has known CAD. He had burning sensation in the chest and also positive troponin I. Patient has significant comorbid diagnosis therefore will try optimize medical management. Nuclear stress test results were discussed with the patient. His questions were answered. There is small area of ischemia. Feel that medical management should be tried first. If it fails then will consider cardiac catheterization referral. At this point have ordered a 2D echo, switched patient to metoprolol succinate, increased dose to 100 mg p.o. twice daily, increased Lipitor to 40 mg a day and added Plavix to the regimen. Will recommend increasing Imdur if needed. Elevated troponin I: Most likely related to cardiac ischemia. Medical management been optimized. Hypertension: Blood pressure still mildly elevated. Will optimize medical management. Hyperlipidemia: LDL goal is less than 70. Recommend high potency statin therapy. Coronary artery disease: Please see management plans in the chest pain and elevated troponin I. End-stage renal disease: Patient currently on dialysis. 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 Being managed by primary care provider. Mitral regurgitation: A 2D echo was ordered to evaluate this further. On auscultation, the heart murmur does seem somewhat more prominent. Gastroesophageal reflux: We will start patient on proton pump inhibitor. Patient was on this before. Recently was switched to Pepcid. - Time Time with patient: Greater than 35 minutes
[2018-02-26] MEDS ORDERED: LANSOPRAZOLE 30 MG TAB.RAP.DR PO ONE (21:00)
[2018-02-26] MEDS: ATORVASTATIN CALCIUM 40 MG TABLET PO SCH (21:38)
[2018-02-26] MEDS: LISINOPRIL 5 MG TABLET PO SCH (21:38)
[2018-02-27 05:12] LABS: ABSOLUTE BASOPHILS # (AUTO) 0.1 10^3/uL (0.0-0.2); ABSOLUTE EOSINOPHILS # (AUTO) 0.3 10^3/uL (0.0-0.6); ABSOLUTE LYMPHOCYTES (AUTO) 3.8 10^3/uL (0.5-4.7); ABSOLUTE NEUT (AUTO) 2.4 10^3/uL (1.7-8.2); BASOPHILS % (AUTO) 0.8 % (0-2); EOSINOPHILS % (AUTO) 3.6 % (0-6); HEMATOCRIT 33.7 % (37.9-51.0); LYMPHOCYTES % (AUTO) 50.6 % (13-45); MEAN CORPUSCULAR HEMOGLOBIN 31.6 pg (27.0-33.4); MEAN CORPUSCULAR HGB CONC 32.6 g/dL (32.0-36.0); MEAN CORPUSCULAR VOLUME 97 fl (80-97); MONOCYTES % (AUTO) 12.9 % (3-13); PLATELET COUNT 212 10^3/uL (150-450); RED BLOOD COUNT 3.48 10^6/uL (4.35-5.55); RED CELL DISTRIBUTION WIDTH 15.5 % (11.5-14.0); SEGMENTED NEUTROPHILS % (AUTO) 32.1 % (42-78); TOTAL CELLS COUNTED % (AUTO) 100 %; WHITE BLOOD COUNT 7.5 10^3/uL (4.0-10.5)
[2018-02-27 05:29] LABS: ANION GAP 10 (5-19); BLOOD UREA NITROGEN 19 mg/dL (7-20); CALCIUM 8.6 mg/dL (8.4-10.2); CARBON DIOXIDE 27 mmol/L (22-30); CHLORIDE 107 mmol/L (98-107); GLUCOSE 134 mg/dL (75-110); POTASSIUM 3.6 mmol/L (3.6-5.0); SODIUM 144.1 mmol/L (137-145)
[2018-02-27] MEDS: LANSOPRAZOLE 30 MG TAB.RAP.DR PO SCH ×2 (06:08→17:20)
[2018-02-27] MEDS: HEPARIN SOD (PORCINE) 5,000 UNIT/ML 1 ML SYRINGE SUBCUT SCH ×3 (06:08→23:39)
[2018-02-27] MEDS: METRONIDAZOLE 500 MG/NS RTU 100 ML IV SCH ×3 (06:08→23:39)
[2018-02-27] MEDS: ISOSORBIDE MONONITRATE 30 MG TAB.ER.24H PO SCH (09:48)
[2018-02-27] MEDS: CLOPIDOGREL BISULFATE 75 MG TABLET PO SCH (09:48)
[2018-02-27] MEDS: METOPROLOL SUCCINATE 50 MG TAB.SR.24H PO SCH ×2 (09:48→23:39)
[2018-02-27] MEDS: PREDNISONE 5 MG TABLET PO SCH (09:49)
[2018-02-27] MEDS: TAMSULOSIN HCL 0.4 MG CAP.SR.24H PO SCH (09:49)
--- NOTE | 2018-02-27 11:26 | PDOC PROGRESS REPORT ---
Subjective Progress Note for:: 02/27/18 Subjective:: Patient seems to be doing better. Patient had no recurrence of burning sensation in the chest. Patient was placed on Prevacid yesterday. Pt is denying any chest arm or neck discomfort. Patient denying any PND, orthopnea. Patient denied any sustained palpitations, dizziness, syncope, near syncope. Patient denying any fever chills. Patient denying any other significant discomfort. Patient is maintaining sinus rhythm. Review of systems: Rest review of systems negative. Medications: Medications have been reviewed. Reason For Visit: C DIFF COLITIS Physical Exam Vital Signs: Temp Pulse Resp BP Pulse Ox 98.0 F 57 L 16 162/56 H 100 02/27/18 07:10 02/27/18 07:10 02/27/18 07:10 02/27/18 07:10 02/27/18 07:10 Intake & Output 02/26/18 02/27/18 02/28/18 06:59 06:59 06:59 Intake Total 1322 677 Output Total 1900 Balance 1322 -1223 Weight 67.6 kg 66.1 kg Exam: GENERAL: well-nourished and in no acute distress. Alert and oriented x3 HEAD: Atraumatic, normocephalic. EYES: Pupils equal round and reactive to light, extraocular movements intact, sclera anicteric, conjunctiva are normal. ENT: TMs normal, nares patent, oropharynx clear without exudates. Moist mucous membranes. No oral ulcerations or bleeding gums noted NECK: supple without lymphadenopathy. Trachea is central. No cervical or axillary lymphadenopathy noted. Carotids are 2+, JVD WNL LUNGS: Respiration seems nonlabored, no significant accessory muscle action noted. Breath sounds clear to auscultation bilaterally and equal noted. No wheezes rales or rhonchi noted. No significant dullness noted on percussion. CHEST: Palpation of the chest wall shows no significant chest wall tenderness. No other significant abnormalities noted. 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 ABDOMEN: Soft, no significant tenderness appreciated, normoactive bowel sounds. No guarding, no rebound. No rigidity noted . No masses appreciated. EXTREMITIES: Pedal pulses are 1-2+, no calf tenderness noted. No clubbing or cyanosis. negative pedal edema noted NEUROLOGICAL: Focused neurological exam showed no significant neurologic deficit. 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 PSYCH: Normal mood, normal affect. Judgment and insight within normal limits. SKIN: No significant ecchymosis, skin is noted to be warm. MUSCULOSKELETAL EXAM: No significant acute joint swelling noted. Bilateral lower extremity weakness noted which is chronic. Results Laboratory Results: 02/27/18 04:44 02/27/18 04:44 02/27/18 02/27/18 04:44 04:44 WBC 7.5 RBC 3.48 L Hgb 11.0 L Hct 33.7 L MCV 97 MCH 31.6 MCHC 32.6 RDW 15.5 H Plt Count 212 Seg Neutrophils % 32.1 L Lymphocytes % 50.6 H Monocytes % 12.9 Eosinophils % 3.6 Basophils % 0.8 Absolute Neutrophils 2.4 Absolute Lymphocytes 3.8 Absolute Monocytes 1.0 Absolute Eosinophils 0.3 Absolute Basophils 0.1 Sodium 144.1 Potassium 3.6 Chloride 107 Carbon Dioxide 27 Anion Gap 10 BUN 19 Creatinine 2.58 H Est GFR ( Amer) 31 L Est GFR (Non-Af Amer) 25 L Glucose 134 H Calcium 8.6 Magnesium 1.8 02/24/18 20:13 Toe - Diabetic Ulcer Gram Stain - Final 02/24/18 02/24/18 02/25/18 20:45 20:45 02:55 Creatine Kinase 33 L 25 L CK-MB (CK-2) 4.41 Troponin I 0.348 02/25/18 02/25/18 02/25/18 02:55 09:39 09:39 Creatine Kinase 30 L CK-MB (CK-2) 3.68 5.29 H Troponin I 0.360 0.337 EKG Comments: Telemetry shows sinus rhythm without any sustained tachycardia or bradycardia. Impressions: Abdomen/Pelvis CT 02/24/18 08:11 IMPRESSION: Pancolitis Left basilar airspace disease atelectasis versus pneumonia. Assessment & Plan - Diagnosis (2) Elevated troponin I level Is this a current diagnosis for this admission?: Yes (3) Hypertension Qualifiers: Hypertension type: essential hypertension Qualified Code(s): I10 - Essential (primary) hypertension Is this a current diagnosis for this admission?: Yes (4) Hyperlipidemia Qualifiers: Hyperlipidemia type: unspecified Qualified Code(s): E78.5 - Hyperlipidemia , unspecified Is this a current diagnosis for this admission?: Yes (5) Coronary artery disease Qualifiers: Coronary Disease-Associated Artery/Lesion type: unspecified vessel or lesion type [place] vs. transplanted heart: [place] heart Associated angina: angina presence unspecified Qualified Code(s): I25.10 - Atherosclerotic heart disease of [place] coronary artery without angina pectoris Is this a current diagnosis for this admission?: Yes (6) ESRD needing dialysis Is this a current diagnosis for this admission?: Yes (7) Gastroesophageal reflux disease Qualifiers: Esophagitis presence: esophagitis presence not specified Qualified Code(s) : K21.9 - Gastro-esophageal reflux disease without esophagitis Is this a current diagnosis for this admission?: Yes (8) Mitral regurgitation Qualifiers: Cardiac valve disease etiology: etiology unspecified Qualified Code(s): I34.0 - Nonrheumatic mitral (valve) insufficiency Is this a current diagnosis for this admission?: Yes - Notes Notes: Chest discomfort: Nuclear stress test borderline positive. Patient has areas of fixed defect. Due to patient's significant other comorbid diagnosis, it was felt that maximizing medical therapy would be the best option. This was discussed with the patient. He is agreeable with this approach. Medical management has been optimized. Elevated troponin I level: Possibly related to acute coronary syndrome, could be related to because of chronic renal failure. Hypertension: Blood pressure noted to be intermittently elevated. Recommend good control of blood pressure. Hyperlipidemia: Patient on statin therapy. LDL goal is less than 70. Coronary artery disease: Patient is status post CABG. Medical therapy being optimized. End-stage renal disease: Patient currently on chronic hemodialysis therapy. Gastroesophageal reflux disease: Patient gives a history of it. Patient being placed on proton pump inhibitor. Mitral regurgitation: Heart murmur seems somewhat more prominent. A 2D echo was ordered but has not been yet performed. This will be reordered. - Time Time with patient: 15-25 minutes - Nuclear stress test results were again reviewed with the patient.
--- NOTE | 2018-02-27 15:35 | PDOC PROGRESS REPORT ---
Subjective Progress Note for:: 02/27/18 Subjective:: Patient was seen by the bedside, he was admitted for the management of enterocolitis due to Clostridium difficile colitis, he has multiple comorbid conditions including end-stage renal disease on maintenance hemodialysis Reason For Visit: C DIFF COLITIS Physical Exam Vital Signs: Temp Pulse Resp BP Pulse Ox 98.4 F 63 12 147/78 H 100 02/27/18 11:51 02/27/18 14:00 02/27/18 11:51 02/27/18 11:51 02/27/18 11:51 Intake & Output 02/26/18 02/27/18 02/28/18 06:59 06:59 06:59 Intake Total 1322 677 200 Output Total 1900 Balance 1322 -1223 200 Weight 67.6 kg 66.1 kg General appearance: PRESENT: no acute distress Head exam: PRESENT: atraumatic, normocephalic Eye exam: PRESENT: PERRLA Mouth exam: PRESENT: moist, tongue midline Neck exam: PRESENT: full ROM Respiratory exam: PRESENT: clear to auscultation jolie Cardiovascular exam: PRESENT: RRR, +S1, +S2 Vascular exam: PRESENT: normal capillary refill GI/Abdominal exam: PRESENT: normal bowel sounds, soft Rectal exam: PRESENT: deferred Neurological exam: PRESENT: alert, CN II-XII grossly intact. ABSENT: motor sensory deficit Psychiatric exam: PRESENT: appropriate affect, normal mood Skin exam: PRESENT: dry, intact, warm. ABSENT: cyanosis, rash Results Laboratory Results: 02/27/18 04:44 02/27/18 04:44 02/27/18 02/27/18 04:44 04:44 WBC 7.5 RBC 3.48 L Hgb 11.0 L Hct 33.7 L MCV 97 MCH 31.6 MCHC 32.6 RDW 15.5 H Plt Count 212 Seg Neutrophils % 32.1 L Lymphocytes % 50.6 H Monocytes % 12.9 Eosinophils % 3.6 Basophils % 0.8 Absolute Neutrophils 2.4 Absolute Lymphocytes 3.8 Absolute Monocytes 1.0 Absolute Eosinophils 0.3 Absolute Basophils 0.1 Sodium 144.1 Potassium 3.6 Chloride 107 Carbon Dioxide 27 Anion Gap 10 BUN 19 Creatinine 2.58 H Est GFR ( Amer) 31 L Est GFR (Non-Af Amer) 25 L Glucose 134 H Calcium 8.6 Magnesium 1.8 02/25/18 08:40 Stool - Stool - Final 02/25/18 08:40 Stool - Stool Stool Culture - Final NO SALMONELLA, SHIGELLA, CAMPYLOBACTER, OR E.COLI 0157 RECOVERED. NEGATIVE FOR SHIGA TOXINS 1&2. 02/24/18 20:13 Toe - Diabetic Ulcer Gram Stain - Final 02/24/18 02/24/18 02/25/18 20:45 20:45 02:55 Creatine Kinase 33 L 25 L CK-MB (CK-2) 4.41 Troponin I 0.348 02/25/18 02/25/18 02/25/18 02:55 09:39 09:39 Creatine Kinase 30 L CK-MB (CK-2) 3.68 5.29 H Troponin I 0.360 0.337 Impressions: Abdomen/Pelvis CT 02/24/18 08:11 IMPRESSION: Pancolitis Left basilar airspace disease atelectasis versus pneumonia. Assessment & Plan - Diagnosis (1) Enterocolitis due to Clostridium difficile Is this a current diagnosis for this admission?: Yes (2) End stage renal disease Is this a current diagnosis for this admission?: Yes
[2018-02-27] MEDS: INSULIN LISPRO 100 UNIT/ML 3 ML VIAL SUBCUT PRN (17:22)
[2018-02-27] MEDS: LISINOPRIL 5 MG TABLET PO SCH ×2 (17:28→23:40)
[2018-02-27] MEDS: OLOPATADINE HCL 0.1% OPH SOLN 5 ML OU SCH (23:23)
[2018-02-27] MEDS: ATORVASTATIN CALCIUM 40 MG TABLET PO SCH (23:39)
[2018-02-28] MEDS: OLOPATADINE HCL 0.1% OPH SOLN 5 ML OU SCH ×5 (00:22→23:36)
[2018-02-28] MEDS: MAG HYDROX/AL HYDROX/SIMETH SUSP 30 ML UDCUP PO PRN (06:34)
[2018-02-28] MEDS: HEPARIN SOD (PORCINE) 5,000 UNIT/ML 1 ML SYRINGE SUBCUT SCH ×3 (06:48→22:45)
[2018-02-28] MEDS: METRONIDAZOLE 500 MG/NS RTU 100 ML IV SCH ×3 (06:48→22:45)
[2018-02-28] MEDS: LANSOPRAZOLE 30 MG TAB.RAP.DR PO SCH ×2 (06:48→18:14)
[2018-02-28] MEDS: PREDNISONE 5 MG TABLET PO SCH (09:56)
[2018-02-28] MEDS: CLOPIDOGREL BISULFATE 75 MG TABLET PO SCH (09:56)
[2018-02-28] MEDS: ISOSORBIDE MONONITRATE 30 MG TAB.ER.24H PO SCH (09:57)
[2018-02-28] MEDS: METOPROLOL SUCCINATE 50 MG TAB.SR.24H PO SCH ×2 (09:57→22:45)
[2018-02-28] MEDS: TAMSULOSIN HCL 0.4 MG CAP.SR.24H PO SCH (09:57)
--- NOTE | 2018-02-28 10:55 | PDOC PROGRESS REPORT ---
Subjective Progress Note for:: 02/28/18 Subjective:: Patient had some indigestion type discomfort in the chest but that got resolved after he was given some medication. Subsequently he passed a lot of gas and felt better. Pt is denying any chest arm or neck discomfort. Patient denying any PND, orthopnea. Patient denied any sustained palpitations, dizziness, syncope, near syncope. Patient denying any fever chills. Patient denying any other significant discomfort. Patient is maintaining sinus rhythm. Review of systems: Rest review of systems negative. Medications: Medications have been reviewed. Reason For Visit: C DIFF COLITIS Physical Exam Vital Signs: Temp Pulse Resp BP Pulse Ox 98.3 F 58 L 16 167/72 H 95 02/28/18 07:43 02/28/18 07:43 02/28/18 07:43 02/28/18 07:43 02/28/18 07:43 Intake & Output 02/27/18 02/28/18 03/01/18 06:59 06:59 06:59 Intake Total 677 1003 Output Total 1900 0 Balance -1223 1003 Weight 66.1 kg 68.9 kg Exam: GENERAL: well-nourished and in no acute distress. Alert and oriented x3 HEAD: Atraumatic, normocephalic. EYES: Pupils equal round and reactive to light, extraocular movements intact, sclera anicteric, conjunctiva are normal. Patient noted to have slight squint. ENT: TMs normal, nares patent, oropharynx clear without exudates. Moist mucous membranes. No oral ulcerations or bleeding gums noted NECK: supple without lymphadenopathy. Trachea is central. No cervical or axillary lymphadenopathy noted. Carotids are 2+, JVD WNL LUNGS: Respiration seems nonlabored, no significant accessory muscle action noted. Breath sounds clear to auscultation bilaterally and equal noted. No wheezes rales or rhonchi noted. No significant dullness noted on percussion. CHEST: Palpation of the chest wall shows no significant chest wall tenderness. No other significant abnormalities noted. 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 ABDOMEN: Soft, no significant tenderness appreciated, normoactive bowel sounds. No guarding, no rebound. No rigidity noted . No masses appreciated. EXTREMITIES: Pedal pulses are 1-2+, no calf tenderness noted. No clubbing or cyanosis. negative pedal edema noted NEUROLOGICAL: Focused neurological exam showed no significant neurologic deficit. Normal speech, bilateral paraparesis noted of lower extremity. PSYCH: Normal mood, normal affect. Judgment and insight within normal limits. SKIN: No significant ecchymosis, skin is noted to be warm. MUSCULOSKELETAL EXAM: No significant acute joint swelling noted. Results Laboratory Results: 02/27/18 04:44 02/27/18 04:44 02/25/18 16:50 Clean Catch Midstream Urine Culture - Final Escherichia Coli Esbl Vre (E.faecalis) 02/25/18 08:40 Stool - Stool Clostridium difficile Toxin A&B (M) - Final 02/24/18 20:13 Toe - Diabetic Ulcer Gram Stain - Final 02/25/18 08:40 Stool - Stool - Final 02/25/18 08:40 Stool - Stool Stool Culture - Final NO SALMONELLA, SHIGELLA, CAMPYLOBACTER, OR E.COLI 0157 RECOVERED. NEGATIVE FOR SHIGA TOXINS 1&2. 02/24/18 02/24/18 02/25/18 20:45 20:45 02:55 Creatine Kinase 33 L 25 L CK-MB (CK-2) 4.41 Troponin I 0.348 02/25/18 02/25/18 02/25/18 02:55 09:39 09:39 Creatine Kinase 30 L CK-MB (CK-2) 3.68 5.29 H Troponin I 0.360 0.337 EKG Comments: Telemetry strips shows sinus rhythm without any sustained tachycardia or bradycardia. Impressions: Abdomen/Pelvis CT 02/24/18 08:11 IMPRESSION: Pancolitis Left basilar airspace disease atelectasis versus pneumonia. Assessment & Plan - Diagnosis (2) Elevated troponin I level Is this a current diagnosis for this admission?: Yes (3) Hypertension Qualifiers: Hypertension type: essential hypertension Qualified Code(s): I10 - Essential (primary) hypertension Is this a current diagnosis for this admission?: Yes (4) Hyperlipidemia Qualifiers: Hyperlipidemia type: unspecified Qualified Code(s): E78.5 - Hyperlipidemia , unspecified Is this a current diagnosis for this admission?: Yes (5) Coronary artery disease Qualifiers: Coronary Disease-Associated Artery/Lesion type: unspecified vessel or lesion type [place] vs. transplanted heart: [place] heart Associated angina: angina presence unspecified Qualified Code(s): I25.10 - Atherosclerotic heart disease of [place] coronary artery without angina pectoris Is this a current diagnosis for this admission?: Yes (6) ESRD needing dialysis Is this a current diagnosis for this admission?: Yes (7) Axonal GBS (Guillain-[place] syndrome) Is this a current diagnosis for this admission?: Yes (8) Gastroesophageal reflux disease Qualifiers: Esophagitis presence: esophagitis presence not specified Qualified Code(s) : K21.9 - Gastro-esophageal reflux disease without esophagitis Is this a current diagnosis for this admission?: Yes (9) Mitral regurgitation Qualifiers: Cardiac valve disease etiology: etiology unspecified Qualified Code(s): I34.0 - Nonrheumatic mitral (valve) insufficiency Is this a current diagnosis for this admission?: Yes - Notes Notes: Imdur being increased to 60 mg p.o. nightly. Consider adding MARILIN inhibitor or angiotensin receptor sudheer since patient has low EF. 2D echo however is pending. Will repeat EKG in a.m. Chest discomfort: Nuclear stress test borderline positive. Patient has areas of fixed defect. Due to patient's significant other comorbid diagnosis, it was felt that maximizing medical therapy would be the best option. This was discussed with the patient. He is agreeable with this approach. Medical management has been optimized. Elevated troponin I level: Possibly related to acute coronary syndrome, could be related to because of chronic renal failure. Hypertension: Blood pressure noted to be intermittently elevated. Recommend good control of blood pressure. Hyperlipidemia: Patient on statin therapy. LDL goal is less than 70. Coronary artery disease: Patient is status post CABG. Medical therapy being optimized. End-stage renal disease: Patient currently on chronic hemodialysis therapy. Gastroesophageal reflux disease: Patient gives a history of it. Patient being placed on proton pump inhibitor. Mitral regurgitation: Heart murmur seems somewhat more prominent. A 2D echo was ordered but has not been yet performed. This will be reordered. - Time Time with patient: Greater than 35 minutes - CODE STATUS was discussed, patient remains full code. Surrogate decision-maker unchanged. Multiple medical problems were addressed. More than 50% of the time spent coordinating care, discussing management plans with involved caregivers. Management plans discussed with involved personnels. Medical decision making was of moderate to high complexity, patient's has multiple comorbidities. Medications reviewed and adjusted accordingly: Yes
[2018-02-28] MEDS ORDERED: ISOSORBIDE MONONITRATE 30 MG TAB.ER.24H PO ONE (11:30)
[2018-02-28] MEDS ORDERED: LOSARTAN POTASSIUM 25 MG TABLET PO ONE (12:30)
--- NOTE | 2018-02-28 14:01 | PDOC PROGRESS REPORT ---
Subjective Progress Note for:: 02/28/18 Subjective:: He has polymicrobial UTI, urine culture grew ESBL E. coli and VRE, both organisms sensitive to nitrofurantoin the colony count for both organisms is not very significantly elevated, this is probably colonization of the urinary tract. Patient is not showing signs of infection, not convinced patient would need IV antibiotic for his infection, will continue to monitor patient Reason For Visit: C DIFF COLITIS Physical Exam Vital Signs: Temp Pulse Resp BP Pulse Ox 98.0 F 65 16 177/84 H 95 02/28/18 11:59 02/28/18 11:59 02/28/18 11:59 02/28/18 11:59 02/28/18 11:59 Intake & Output 02/27/18 02/28/18 03/01/18 06:59 06:59 06:59 Intake Total 677 1003 200 Output Total 1900 0 0 Balance -1223 1003 200 Weight 66.1 kg 68.9 kg General appearance: PRESENT: no acute distress Eye exam: PRESENT: PERRLA Respiratory exam: PRESENT: clear to auscultation jolie Cardiovascular exam: PRESENT: +S1, +S2 GI/Abdominal exam: PRESENT: soft Neurological exam: PRESENT: alert Results Laboratory Results: 02/27/18 04:44 02/27/18 04:44 02/24/18 20:13 Toe - Diabetic Ulcer Gram Stain - Final 02/25/18 16:50 Clean Catch Midstream Urine Culture - Final Escherichia Coli Esbl Vre (E.faecalis) 02/25/18 08:40 Stool - Stool Clostridium difficile Toxin A&B (M) - Final 02/25/18 08:40 Stool - Stool - Final 02/25/18 08:40 Stool - Stool Stool Culture - Final NO SALMONELLA, SHIGELLA, CAMPYLOBACTER, OR E.COLI 0157 RECOVERED. NEGATIVE FOR SHIGA TOXINS 1&2. 02/24/18 02/24/18 02/25/18 20:45 20:45 02:55 Creatine Kinase 33 L 25 L CK-MB (CK-2) 4.41 Troponin I 0.348 02/25/18 02/25/18 02/25/18 02:55 09:39 09:39 Creatine Kinase 30 L CK-MB (CK-2) 3.68 5.29 H Troponin I 0.360 0.337 Impressions: Abdomen/Pelvis CT 02/24/18 08:11 IMPRESSION: Pancolitis Left basilar airspace disease atelectasis versus pneumonia. Assessment & Plan - Diagnosis (1) Enterocolitis due to Clostridium difficile Is this a current diagnosis for this admission?: Yes (2) End stage renal disease Is this a current diagnosis for this admission?: Yes (3) Urinary tract infection due to extended-spectrum beta lactamase (ESBL) producing Escherichia coli Is this a current diagnosis for this admission?: Yes Plan: This is most likely from colonization rather than true infection not convinced antibiotic is needed at this point (4) VRE (vancomycin resistant enterococcus) culture positive Is this a current diagnosis for this admission?: Yes Plan: This is most likely colonization, colonic count is less than 100,000
[2018-02-28] MEDS ORDERED: NITROFURANTOIN 5 MG/ML SUSP 60 ML PO SCH (14:15)
[2018-02-28] MEDS ORDERED: ISOSORBIDE MONONITRATE 30 MG TAB.ER.24H PO SCH (22:00)
[2018-02-28] MEDS: ATORVASTATIN CALCIUM 40 MG TABLET PO SCH (22:45)
[2018-02-28] MEDS: LISINOPRIL 5 MG TABLET PO SCH (22:45)
[2018-03-01] MEDS ORDERED: NITROGLYCERIN 0.4 MG/TAB 25 TAB/BOTTLE ONE (06:29)
[2018-03-01] MEDS ORDERED: NITROGLYCERIN 0.4 MG/TAB 25 TAB/BOTTLE SL PRN (06:30)
[2018-03-01 07:14] LABS: ARTERIAL BLOOD BASE EXCESS -9.7 mmol/L; ARTERIAL BLOOD H2CO3 1.62 mmol/L (1.05-1.35); ARTERIAL BLOOD HCO3 19.1 mmol/L (20-26); ARTERIAL BLOOD O2 SATURATION 98.1 % (94-98); ARTERIAL BLOOD PCO2 53.9 mmHg (35-45); ARTERIAL BLOOD PO2 141.4 mmHg (80-100); ARTERIAL BLOOD TOTAL CO2 20.8 mmol/L (23-27)
[2018-03-01 07:15] LABS: ARTERIAL BLOOD FIO2 30%
[2018-03-01 07:16] LABS: ARTERIAL BLOOD PH 7.17 (7.35-7.45)
[2018-03-01] MEDS ORDERED: PROPOFOL 100 ML IV ONE ×2 (07:16→09:59)
--- NOTE | 2018-03-01 07:53 | RADIOLOGY REPORT (SQ) ---
EXAM DESCRIPTION: CHEST SINGLE VIEW COMPLETED DATE/TIME: 03/01/2018 7:26 am REASON FOR STUDY: TUBE PLACEMENT COMPARISON: Chest films 06/01/2017, 02/19/2018 EXAM PARAMETERS: NUMBER OF VIEWS: One view. TECHNIQUE: Single frontal radiographic view of the chest acquired. RADIATION DOSE: NA LIMITATIONS: None. FINDINGS: LUNGS AND PLEURA: Patchy diffuse ground-glass opacity throughout both lungs from pulmonary edema. Pneumonia or ARDS could not be excluded. No pleural effusions. No pneumothorax. MEDIASTINUM AND HILAR STRUCTURES: No masses. Contour normal. HEART AND VASCULAR STRUCTURES: Heart normal in size. Normal vasculature. BONES: No acute findings. HARDWARE: Endotracheal tube tip 3 to 4 cm above the joselito. Nasogastric tube coiled below the hemidi aphragms. Left-sided central venous dialysis catheter tip superior vena cava. Defibrillator pads ov er the lower chest. OTHER: No other significant finding. IMPRESSION: Endotracheal tube tip in good positioning. Hazy diffuse ground-glass opacity throughout both lungs worrisome for pulmonary edema. Pneumonia or ARDS could not be excluded TECHNICAL DOCUMENTATION: JOB ID: [id number] appening- All Rights Reserved Reading location - IP/workstation name: [facility]-[email or web address]
--- NOTE | 2018-03-01 08:17 | EKG REPORT ---
SEVERITY:- ABNORMAL ECG - SINUS RHYTHM PAIRED VENTRICULAR PREMATURE COMPLEXES LEFT ATRIAL ABNORMALITY LAD, CONSIDER LAFB OR INFERIOR INFARCT CONSIDER ANTERIOR INFARCT : Confirmed by: Zoe Lazo 01-Mar-2018 08:17:08
--- NOTE | 2018-03-01 08:19 | EKG REPORT ---
SEVERITY:- ABNORMAL ECG - SINUS RHYTHM FIRST DEGREE AV BLOCK PROBABLE LEFT ATRIAL ABNORMALITY INFERIOR INFARCT, AGE INDETERMINATE LATERAL INFARCT, AGE INDETERMINATE ANTERIOR INFARCT, OLD PROLONGED QT INTERVAL : Confirmed by: Zoe Lazo 01-Mar-2018 08:17:49
--- NOTE | 2018-03-01 08:34 | PDOC CONSULTATION ---
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 GUILLAIN-BARRE' SYNDROME, Respiratory Failure, Sleep Apnea - On C Pap Denies: Bronchitis Neurological Medical History: Denies: Seizures Endocrine Medical History: Reports: Diabetes Mellitus Type 1, Diabetes Mellitus Type 2 Renal/ Medical History: Reports: End Stage Renal Disease GI Medical History: Reports: Gastroesophageal Reflux Disease Denies: Crohn's Disease, Diverticulitis, Ulcerative Colitis Musculoskeltal Medical History: Denies: Arthritis Psychiatric Medical History: Denies: Depression Hematology: Reports: Anemia Infectious Medical History: Reports: Clostridium Difficile Past Surgical History Past Surgical History: Reports: Cardiac Catheterization, Coronary Artery Bypass Graft - Quadruple bypass 2007, Renal Transplant, Vascular Surgery - left AV fistual, Other - History peritoneal dialysis catheter placement and removal Social History Information Source: Relative, [facility] Records Smoking Status: Former Smoker Passive smoke exposure as: Both Frequency of Alcohol Use: None Hx Recreational Drug Use: No Drugs: None Hx Prescription Drug Abuse: No - Advance Directive Resuscitation Status: Full Code Family History Family History: CAD Parental Family History Reviewed: No Children Family History Reviewed: No Sibling(s) Family History Reviewed.: No Medication/Allergy Home Medications: Atorvastatin Calcium [Lipitor 10 mg Tablet] 10 mg PO BID 02/24/18 Fidaxomicin [Dificid 200 mg Tablet] 200 mg PO BID 10 Days #20 tablet 02/24/18 Isosorbide Mononitrate [Isosorbide Mononitrate ER] 30 mg PO DAILY 02/24/18 Lisinopril [Prinivil 5 mg Tablet] 5 mg PO DAILY 02/24/18 Metoprolol Tartrate [Lopressor 50 mg Tablet] 50 mg PO Q12 02/24/18 Omeprazole 20 mg PO DAILY 02/24/18 Prednisone [Deltasone 5 mg Tablet] 5 mg PO DAILY 02/24/18 Tamsulosin HCl [Flomax 0.4 mg Cap.sr] 0.4 mg PO DAILY 02/24/18 Allergies/Adverse Reactions: No Known Allergies Allergy (Verified 01/04/18 11:13) Review of Systems ROS unobtainable: Due to endotracheal tube Physical Exam Vital Signs: Temp Pulse Resp BP Pulse Ox 98.1 F 65 16 179/77 H 100 03/01/18 04:06 03/01/18 04:06 03/01/18 04:06 03/01/18 04:06 03/01/18 07:14 Intake & Output 02/28/18 03/01/18 03/02/18 06:59 06:59 06:59 Intake Total 1003 1232 Output Total 0 3 Balance 1003 1229 Weight 68.9 kg 67 kg General appearance: PRESENT: no acute distress, disheveled, well-developed, well -nourished. ABSENT: cooperative Head exam: PRESENT: atraumatic, normocephalic Eye exam: PRESENT: conjunctiva pale. ABSENT: EOMI, nystagmus, periorbital swelling, scleral icterus Mouth exam: PRESENT: dry mucosa, neck supple, tongue midline, other - ET TUBE Neck exam: ABSENT: carotid bruit, JVD, lymphadenopathy, thyromegaly, tracheal deviation, tracheostomy Respiratory exam: PRESENT: decreased breath sounds, prolonged expiratory phas, rales, rhonchi, symmetrical, unlabored. ABSENT: retraction, stridor, tachypnea Cardiovascular exam: PRESENT: RRR, +S1, +S2, tachycardia Pulses: PRESENT: normal radial pulses GI/Abdominal exam: PRESENT: diminished bowel sounds, soft Extremities exam: ABSENT: calf tenderness, clubbing, joint swelling Musculoskeletal exam: ABSENT: deformity, dislocation Neurological exam: ABSENT: awake, oriented to person Skin exam: PRESENT: dry, warm Results Laboratory Results: 02/27/18 04:44 02/27/18 04:44 03/01/18 07:09 Carbonic Acid 1.62 H HCO3/H2CO3 Ratio 11:1 ABG pH 7.17 L* ABG pCO2 53.9 H ABG pO2 141.4 H ABG HCO3 19.1 L ABG O2 Saturation 98.1 H ABG Base Excess -9.7 FiO2 30% 02/24/18 20:13 Toe - Diabetic Ulcer Gram Stain - Final 02/25/18 16:50 Clean Catch Midstream Urine Culture - Final Escherichia Coli Esbl Vre (E.faecalis) 02/24/18 02/24/18 02/25/18 20:45 20:45 02:55 Creatine Kinase 33 L 25 L CK-MB (CK-2) 4.41 Troponin I 0.348 02/25/18 02/25/18 02/25/18 02:55 09:39 09:39 Creatine Kinase 30 L CK-MB (CK-2) 3.68 5.29 H Troponin I 0.360 0.337 Impressions: Abdomen/Pelvis CT 02/24/18 08:11 IMPRESSION: Pancolitis Left basilar airspace disease atelectasis versus pneumonia. Chest X-Ray 03/01/18 00:00 IMPRESSION: Endotracheal tube tip in good positioning. Hazy diffuse ground-glass opacity throughout both lungs worrisome for pulmonary edema. Pneumonia or ARDS could not be excluded Assessment & Plan - Diagnosis (1) ESRD needing dialysis Is this a current diagnosis for this admission?: Yes Plan: will need transfer for HD (2) Gastroesophageal reflux disease Qualifiers: Esophagitis presence: esophagitis presence not specified Qualified Code(s) : K21.9 - Gastro-esophageal reflux disease without esophagitis Is this a current diagnosis for this admission?: Yes Plan: ppi (3) Hypertension Qualifiers: Hypertension type: essential hypertension Qualified Code(s): I10 - Essential (primary) hypertension Is this a current diagnosis for this admission?: Yes (4) Sleep apnea syndrome Qualifiers: Sleep apnea type: unspecified type Qualified Code(s): G47.30 - Sleep apnea , unspecified Is this a current diagnosis for this admission?: Yes (5) Acute respiratory failure Is this a current diagnosis for this admission?: Yes (6) Chest pain Qualifiers: Chest pain type: unspecified Qualified Code(s): R07.9 - Chest pain, unspecified Is this a current diagnosis for this admission?: Yes Plan: preceeded arrest per RN note - Time Total Critical Time (Minutes): 60
[2018-03-01 08:42] LABS: ARTERIAL BLOOD BASE EXCESS -2.6 mmol/L; ARTERIAL BLOOD H2CO3 0.85 mmol/L (1.05-1.35); ARTERIAL BLOOD HCO3 20.1 mmol/L (20-26); ARTERIAL BLOOD O2 SATURATION 97.4 % (94-98); ARTERIAL BLOOD PCO2 28.4 mmHg (35-45); ARTERIAL BLOOD PH 7.47 (7.35-7.45); ARTERIAL BLOOD PO2 89.3 mmHg (80-100); ARTERIAL BLOOD TOTAL CO2 20.9 mmol/L (23-27)
[2018-03-01] MEDS: HEPARIN SOD (PORCINE) 5,000 UNIT/ML 1 ML SYRINGE SUBCUT SCH (08:48)
[2018-03-01] MEDS: OLOPATADINE HCL 0.1% OPH SOLN 5 ML OU SCH (08:48)
[2018-03-01 08:59] LABS: ARTERIAL BLOOD FIO2 40%
[2018-03-01 09:20] LABS: ABSOLUTE EOSINOPHILS # (AUTO) 0.1 10^3/uL (0.0-0.6); ABSOLUTE LYMPHOCYTES (AUTO) 1.4 10^3/uL (0.5-4.7); ABSOLUTE MONOCYTES (AUTO) 1.1 10^3/uL (0.1-1.4); ABSOLUTE NEUT (AUTO) 7.7 10^3/uL (1.7-8.2); BASOPHILS % (AUTO) 0.4 % (0-2); EOSINOPHILS % (AUTO) 0.7 % (0-6); LYMPHOCYTES % (AUTO) 13.7 % (13-45); MEAN CORPUSCULAR VOLUME 97 fl (80-97); MONOCYTES % (AUTO) 10.3 % (3-13); PLATELET COUNT 223 10^3/uL (150-450); RED CELL DISTRIBUTION WIDTH 15.8 % (11.5-14.0); SEGMENTED NEUTROPHILS % (AUTO) 74.9 % (42-78); TOTAL CELLS COUNTED % (AUTO) 100 %; WHITE BLOOD COUNT 10.3 10^3/uL (4.0-10.5)
[2018-03-01 09:35] LABS: ANION GAP 17 (5-19); BLOOD UREA NITROGEN 38 mg/dL (7-20); CARBON DIOXIDE 18 mmol/L (22-30); CHLORIDE 103 mmol/L (98-107); CREATINE KINASE 65 U/L (55-170); GLUCOSE 152 mg/dL (75-110); POTASSIUM 4.9 mmol/L (3.6-5.0); SODIUM 137.9 mmol/L (137-145)
[2018-03-01] MEDS ORDERED: LABETALOL HCL INJ 200 MG/40 ML VIAL IV ONE (09:40)
[2018-03-01 09:46] LABS: CREATINE KINASE MB 3.73 ng/mL (<4.55)
[2018-03-01 09:49] LABS: TROPONIN I 0.133 ng/mL
--- NOTE | 2018-03-01 09:56 | PDOC TRANSFER SUMMARY ---
General Admission Date/PCP: 02/24/18 13:25 KEEGAN MONTENEGRO MD Transfer Date: 03/01/18 Accepting Facility: [facility] Resuscitation Status: Full Code - Transfer Diagnosis (1) C. difficile colitis Is this a current diagnosis for this admission?: Yes (2) ESRD needing dialysis Is this a current diagnosis for this admission?: Yes (3) Elevated troponin I level Is this a current diagnosis for this admission?: Yes (4) Leg ulcer Is this a current diagnosis for this admission?: Yes (5) Anemia in chronic kidney disease (CKD) Is this a current diagnosis for this admission?: Yes (6) Chest pain Is this a current diagnosis for this admission?: Yes (7) Coronary artery disease Is this a current diagnosis for this admission?: Yes (8) Cough Is this a current diagnosis for this admission?: Yes (9) Diabetes mellitus, type II Is this a current diagnosis for this admission?: Yes (10) History of kidney transplant Is this a current diagnosis for this admission?: Yes (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) Is this a current diagnosis for this admission?: Yes (12) Recurrent urinary tract infection Is this a current diagnosis for this admission?: Yes (13) Cardiac arrest Is this a current diagnosis for this admission?: Yes Diagnosis Summary: Status post CPR and intubatedWith multiple etiology including the PE versus acute TX versus neurological events (14) Acute respiratory failure Is this a current diagnosis for this admission?: Yes Diagnosis Summary: Currently intubated - Transfer Medications Home Medications: Atorvastatin Calcium [Lipitor 10 mg Tablet] 10 mg PO BID 02/24/18 Isosorbide Mononitrate [Isosorbide Mononitrate ER] 30 mg PO DAILY 02/24/18 Lisinopril [Prinivil 5 mg Tablet] 5 mg PO DAILY 02/24/18 Metoprolol Tartrate [Lopressor 50 mg Tablet] 50 mg PO Q12 02/24/18 Omeprazole 20 mg PO DAILY 02/24/18 Prednisone [Deltasone 5 mg Tablet] 5 mg PO DAILY 02/24/18 Tamsulosin HCl [Flomax 0.4 mg Cap.sr] 0.4 mg PO DAILY 02/24/18 Transfer Medications: Current Medications Acetaminophen (Tylenol 325 Mg Tablet) 650 mg PO Q4HP PRN PRN Reason: FOR PAIN Stop: 03/26/18 13:29 Last Admin: 02/28/18 20:44 Dose: 650 mg Al Hydrox/Mg Hydrox/Simethicone (Maalox Plus Susp 30 Udcup) 15 ml PO Q6HP PRN PRN Reason: HEARTBURN Stop: 03/26/18 13:29 Last Admin: 02/28/18 06:34 Dose: 15 ml Albuterol/Ipratropium (Duoneb 3 Ml Ampul) 3 ml NEB RTQ6HP PRN PRN Reason: SHORTNESS OF BREATH Stop: 03/26/18 13:29 Atorvastatin Calcium (Lipitor 40 Mg Tablet) 40 mg PO QHS [facility] Stop: 03/26/18 21:59 Last Admin: 02/28/18 22:45 Dose: 40 mg Clopidogrel Bisulfate (Plavix 75 Mg Tablet) 75 mg PO DAILY [facility] Stop: 03/27/18 09:59 Last Admin: 02/28/18 09:56 Dose: 75 mg Dextrose (Dextrose Inj 50% Syringe (25 Gm/50 Ml)) 12.5 gm IV PRN PRN; Protocol PRN Reason: FOR BG 50-69 IN ALERT PATIENT Stop: 03/26/18 13:39 Dextrose (Dextrose Inj 50% Syringe (25 Gm/50 Ml)) 25 gm IV PRN PRN; Protocol PRN Reason: PER PROTOCOL Stop: 03/26/18 13:39 Glucagon (Glucagen Inj 1 Mg Vial) 1 mg IM PRN PRN; Protocol PRN Reason: Evaluate for BG < 70 Stop: 03/26/18 13:39 Glucose (Glutose 40% Gel 15 Gm Tube) 15 gm PO PRN PRN; Protocol PRN Reason: FOR BG 50-69 IN ALERT PATIENT Stop: 03/26/18 13:39 Glucose (Glutose 40% Gel 15 Gm Tube) 30 gm PO PRN PRN; Protocol PRN Reason: FOR BG < 50 IN ALERT PATIENT Stop: 03/26/18 13:39 Heparin Sodium (Porcine) (Heparin Inj 5,000 Units/Ml 1 Ml Syringe) 5,000 unit SUBCUT Q8 [facility] Stop: 03/26/18 13:59 Last Admin: 03/01/18 08:48 Dose: Not Given Metronidazole (Flagyl Rtu 500 Mg/Ns 100ml Premix) 100 mls @ 100 mls/hr IV Q8 [facility] Stop: 03/03/18 21:59 Last Admin: 02/28/18 22:45 Dose: 100 ml Insulin Human Lispro (Humalog Insulin 100 Unit/1 Ml 3 Ml Vial) 0 - 12 unit SUBCUT ACHSP PRN; Protocol PRN Reason: PER PROTOCOL Stop: 03/26/18 13:39 Last Admin: 02/27/18 17:22 Dose: 4 unit Isosorbide Mononitrate (Imdur 60 Mg Tablet.Er) 60 mg PO DAILY [facility] Stop: 03/31/18 09:59 Lansoprazole (Prevacid 30 Mg Odt Tablet) 30 mg PO BID@0600,1700 [facility] Stop: 03/29/18 05:59 Last Admin: 02/28/18 18:14 Dose: 30 mg Lisinopril (Prinivil 5 Mg Tablet) 5 mg PO QHS [facility] Stop: 03/29/18 21:59 Last Admin: 02/28/18 22:45 Dose: 5 mg Losartan Potassium (Cozaar 25 Mg Tablet) 25 mg PO DAILY [facility] Stop: 03/31/18 09:59 Metoprolol Succinate (Toprol Xl 50 Mg Tab.Sr) 100 mg PO Q12 [facility] Stop: 03/27/18 21:59 Last Admin: 02/28/18 22:45 Dose: 100 mg Nitroglycerin (Nitrostat 0.4 Mg (1/150 Gr) Tabs 25/Bottle) 1 tab SL Q5MP PRN PRN Reason: FOR CHEST PAIN Last Admin: 03/01/18 06:30 Dose: 1 tab Olopatadine HCl (Patanol 0.1% Oph Soln 5 Ml) 1 drop OU Q6 [facility] Stop: 03/29/18 17:59 Last Admin: 03/01/18 08:48 Dose: Not Given Ondansetron HCl (Zofran Inj/Pf 4 Mg/2 Ml Sdv) 4 mg IV Q4HP PRN PRN Reason: FOR NAUSEA/VOMITING Stop: 03/26/18 13:29 Prednisone (Deltasone 5 Mg Tablet) 5 mg PO DAILY [facility] Stop: 03/27/18 09:59 Last Admin: 02/28/18 09:56 Dose: 5 mg Tamsulosin HCl (Flomax 0.4 Mg Cap.Sr) 0.4 mg PO DAILY [facility] Stop: 03/27/18 09:59 Last Admin: 02/28/18 09:57 Dose: 0.4 mg - Allergies Allergies/Adverse Reactions: No Known Allergies Allergy (Verified 01/04/18 11:13) Hospital Course Hospital Course: This is 62-year-old male with the multiple medical problem as able present in the hospital for the abdominal pain and possible colitis with the patient have recurrent urinary tract infections and recurrent wound infections and patient in a vancomycin for 6 weeks and patient recently diagnosed with the C. difficileAnd finished the Flagyl p.o. and still an abdominal pain and diarrhea and patient CT abdomen and pelvis of the pancolitis and patient seen by the Dr. 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 Lazo in patients had a stress test was done and was all stable with some mild reversible ischemic changes but in the weekend according to the cardiology patient was not complaining any chest pains Patient's otherwise remained stable through the weekend but this morning patient 's currently go a PEA and the patient's was resuscitated and intubated and transferred to the intensive care unit With coordinate care with the cardiology which is not available in the hospital today and also discussed with the nephrology in the ICU and discussed with extensively with the family member including the and other family and patients was transported this point to the tertiary center for further cardiac evaluation and further evaluations Patient also seen by the pulmonary while in the ICU Physical Exam Vital Signs: Temp Pulse Resp BP Pulse Ox 96.4 F L 81 16 179/77 H 100 03/01/18 07:14 03/01/18 07:14 03/01/18 04:06 03/01/18 04:06 03/01/18 08:55 Intake & Output 02/28/18 03/01/18 03/02/18 06:59 06:59 06:59 Intake Total 1003 1232 Output Total 0 3 Balance 1003 1229 Weight 68.9 kg 67 kg General appearance: PRESENT: no acute distress Exam: Currently intubated Eye exam: PRESENT: PERRLA Mouth exam: PRESENT: neck supple Respiratory exam: PRESENT: clear to auscultation jolie Cardiovascular exam: PRESENT: +S1, +S2 GI/Abdominal exam: PRESENT: normal bowel sounds, soft Results Laboratory Results: 03/01/18 09:05 03/01/18 03/01/18 03/01/18 07:09 08:25 09:05 Carbonic Acid 1.62 H 0.85 L HCO3/H2CO3 Ratio 11:1 23:1 ABG pH 7.17 L* 7.47 H ABG pCO2 53.9 H 28.4 L ABG pO2 141.4 H 89.3 ABG HCO3 19.1 L 20.1 ABG O2 Saturation 98.1 H 97.4 ABG Base Excess -9.7 -2.6 FiO2 30% 40% Sodium 137.9 Potassium 4.9 Chloride 103 Carbon Dioxide 18 L Anion Gap 17 BUN 38 H Creatinine 4.26 H Est GFR ( Amer) 17 L Est GFR (Non-Af Amer) 14 L Glucose 152 H Calcium 8.0 L Magnesium 1.8 02/24/18 20:13 Toe - Diabetic Ulcer Gram Stain - Final 02/25/18 16:50 Clean Catch Midstream Urine Culture - Final Escherichia Coli Esbl Vre (E.faecalis) 02/24/18 02/24/18 02/25/18 20:45 20:45 02:55 Creatine Kinase 33 L 25 L CK-MB (CK-2) 4.41 Troponin I 0.348 02/25/18 02/25/18 02/25/18 02:55 09:39 09:39 Creatine Kinase 30 L CK-MB (CK-2) 3.68 5.29 H Troponin I 0.360 0.337 03/01/18 03/01/18 09:05 09:05 Creatine Kinase 65 CK-MB (CK-2) 3.73 Troponin I 0.133 Impressions: Abdomen/Pelvis CT 02/24/18 08:11 IMPRESSION: Pancolitis Left basilar airspace disease atelectasis versus pneumonia. Chest X-Ray 03/01/18 00:00 IMPRESSION: Endotracheal tube tip in good positioning. Hazy diffuse ground-glass opacity throughout both lungs worrisome for pulmonary edema. Pneumonia or ARDS could not be excluded Plan Time Spent: Greater than 30 Minutes - Patient at this point seen by myself and the nephrology and pulmonary and ICU and coordinate care with the cardiology and discussed with the cardiac connection at [facility] In patients stable transfer to tertiary center and discussed with the family in ICUMore than 1 hour for all this coordinate care
[2018-03-01] MEDS ORDERED: ISOSORBIDE MONONITRATE 60 MG TAB.ER.24H PO SCH (10:00)
[2018-03-01] MEDS ORDERED: LOSARTAN POTASSIUM 25 MG TABLET PO SCH (10:00)
[2018-03-01 10:03] LABS: HEMOGLOBIN 12.1 g/dL (13.5-17.0); MEAN CORPUSCULAR HGB CONC 33.6 g/dL (32.0-36.0)
[2018-03-01 10:04] LABS: MEAN CORPUSCULAR HEMOGLOBIN 32.7 pg (27.0-33.4)
[2018-03-01] MEDS ORDERED: SODIUM BICARBONATE 8.4% INJ 50 MEQ/50 ML DISP.SYRIN ONE (10:14)
[2018-03-01] MEDS ORDERED: EPINEPHRINE INJ 1 MG/10 ML DISP.SYRIN ONE (10:14)
[2018-03-01 10:38] VITALS: BP 197/96
[2018-03-01] MEDS: CLOPIDOGREL BISULFATE 75 MG TABLET PO SCH (11:13)
[2018-03-01] MEDS: TAMSULOSIN HCL 0.4 MG CAP.SR.24H PO SCH (11:13)
[2018-03-01] MEDS: LANSOPRAZOLE 30 MG TAB.RAP.DR PO SCH (11:13)
[2018-03-01] MEDS: METOPROLOL SUCCINATE 50 MG TAB.SR.24H PO SCH (11:13)
[2018-03-01] MEDS: PREDNISONE 5 MG TABLET PO SCH (11:13)
[2018-03-01] MEDS: METRONIDAZOLE 500 MG/NS RTU 100 ML IV SCH (11:13)
== END 2018-03-01 10:07 | disposition short-term general hospital (02) | DRG 371 ==
LOC: ER 07:28 → EH 13:25 → 3W 20:09 → ICU 03-01 06:51
PROVIDERS: ADMIT Family Medicine; ATTEND Family Medicine
PROC: 5A1D70Z Performance of Urinary Filtration, Intermittent, Less than 6 Hours Per Day (ICD-10-PCS; 2018-02-24)
PROC: 5A1D70Z Performance of Urinary Filtration, Intermittent, Less than 6 Hours Per Day (ICD-10-PCS; 2018-02-24)
PROC: 0BH17EZ Insertion of Endotracheal Airway into Trachea, Via Natural or Artificial Opening (ICD-10-PCS; principal; 2018-03-01)
PROC: 5A1935Z Respiratory Ventilation, Less than 24 Consecutive Hours (ICD-10-PCS; 2018-03-01)
DX: A04.71 Enterocolitis due to Clostridium difficile, recurrent (principal); N18.6 End stage renal disease; I46.9 Cardiac arrest, cause unspecified; J96.00 Acute respiratory failure, unspecified whether with hypoxia or hypercapnia; G82.50 Quadriplegia, unspecified; I21.9 Acute myocardial infarction, unspecified; I26.99 Other pulmonary embolism without acute cor pulmonale; J18.9 Pneumonia, unspecified organism; I13.2 Hypertensive heart and chronic kidney disease with heart failure and with stage 5 chronic kidney disease, or end stage renal disease; G61.0 Guillain-Barre syndrome; N39.0 Urinary tract infection, site not specified; N25.81 Secondary hyperparathyroidism of renal origin; T86.19 Other complication of kidney transplant; E11.22 Type 2 diabetes mellitus with diabetic chronic kidney disease; Z99.2 Dependence on renal dialysis; D63.1 Anemia in chronic kidney disease; R74.8 Abnormal levels of other serum enzymes; I25.10 Atherosclerotic heart disease of native coronary artery without angina pectoris; Z87.440 Personal history of urinary (tract) infections; B96.20 Unspecified Escherichia coli [E. coli] as the cause of diseases classified elsewhere; E78.5 Hyperlipidemia, unspecified; J44.9 Chronic obstructive pulmonary disease, unspecified; I50.9 Heart failure, unspecified; K21.9 Gastro-esophageal reflux disease without esophagitis; G65.0 Sequelae of Guillain-Barre syndrome; I34.0 Nonrheumatic mitral (valve) insufficiency; E11.621 Type 2 diabetes mellitus with foot ulcer; I16.0 Hypertensive urgency; L97.519 Non-pressure chronic ulcer of other part of right foot with unspecified severity; E87.6 Hypokalemia; I25.2 Old myocardial infarction; Z95.1 Presence of aortocoronary bypass graft; Z95.9 Presence of cardiac and vascular implant and graft, unspecified; E11.42 Type 2 diabetes mellitus with diabetic polyneuropathy; G47.30 Sleep apnea, unspecified; Z16.22 Resistance to vancomycin related antibiotics; B96.89 Other specified bacterial agents as the cause of diseases classified elsewhere; Z78.1 Physical restraint status; Z87.891 Personal history of nicotine dependence; Z82.49 Family history of ischemic heart disease and other diseases of the circulatory system
CPT/HCPCS: 36415; 71045; 74176; 78452; 80048; 80053; 82272; 82550; 82553; 82803; 82962; 83690; 83735; 84484; 85025; 87040; 87045; 87070; 87077; 87086; 87088; 87186; 87205; 87324; 87493; 89055; 93005; 93010; 93017; 94002; 96360; 99285; A6266; A9500; J0171; J0280; J1644; J1815; J2704; J2785; J3370; J3480; J3490; J7030; J7512; Q9969

== ENCOUNTER 2018-04-12 05:55 | Emergency (ER) | payer MEDICARE ==
[2018-04-12] MEDS ORDERED: ASPIRIN 81 MG TABLET, CHEWABLE PO ONE (05:57)
--- NOTE | 2018-04-12 06:19 | ER Document Report ---
ED Cardiac - General Chief Complaint: Chest Pain Stated Complaint: CHEST PRESSURE Time Seen by Provider: 04/12/18 06:19 TRAVEL OUTSIDE OF THE [place] IN LAST 30 DAYS: No - HPI Notes: 62-year-old dialysis patient, Thursday, Thursday, Thursday presents with now resolved 8/10 pressure in his chest. Nothing made the pain better or worse. Lasted for about 10 minutes. This resolved spontaneously. Patient had these episodes many times before when he is due for his dialysis. Patient has an appointment to get dialysis this morning at 10 AM. Denies fever chills or other symptoms. - Related Data Allergies/Adverse Reactions: No Known Allergies Allergy (Verified 01/04/18 11:13) Past Medical History - Social History Smoking Status: Never Smoker Family History: CAD Patient has suicidal ideation: No Patient has homicidal ideation: No - Past Medical History Cardiac Medical History: Reports: Hx Congestive Heart Failure, Hx Coronary Artery Disease, Hx Heart Attack - QUADRUPLE BYPASS 2007, HEART MURMUR, Hx Hypercholesterolemia, Hx Hypertension Pulmonary Medical History: Reports: Hx Asthma, Hx COPD, Hx Pneumonia - HX. GUILLAIN-BARRE' SYNDROME, Hx Intubation, Hx Respiratory Failure, Hx Sleep Apnea - On C Pap Denies: Hx Bronchitis Neurological Medical History: Reports: Hx Cerebrovascular Accident - 2006. Denies: Hx Seizures Endocrine Medical History: Reports: Hx Diabetes Mellitus Type 1, Hx Diabetes Mellitus Type 2 Renal/ Medical History: Reports: Hx End Stage Renal Disease. Denies: Hx Peritoneal Dialysis GI Medical History: Reports: Hx Gastroesophageal Reflux Disease. Denies: Hx Crohn's Disease, Hx Diverticulitis, Hx Ulcerative Colitis Musculoskeltal Medical History: Denies Hx Arthritis Psychiatric Medical History: Denies: Hx Depression Infectious Medical History: Reports: Hx C-Diff Past Surgical History: Reports: Hx Cardiac Catheterization, Hx Cardiac Surgery - double bypass, Hx Coronary Artery Bypass Graft - Quadruple bypass 2007, Hx Kidney (Renal Surgery) - RENAL TRANSPLANT, Hx Vascular Surgery - left AV fistual , Other - History peritoneal dialysis catheter placement and removal - Immunizations Immunizations up to date: Yes Hx Diphtheria, Pertussis, Tetanus Vaccination: Yes - UTD Hx Pneumococcal Vaccination: 08/16/16 Review of Systems - Review of Systems Notes: REVIEW OF SYSTEMS: CONSTITUTIONAL: -fevers, -chills EENT: -eye pain, -difficulty swallowing, -nasal congestion CARDIOVASCULAR: + chest pain, -syncope. RESPIRATORY: -cough, -SOB GASTROINTESTINAL: -abdominal pain, -nausea, -vomiting, -diarrhea GENITOURINARY: -dysuria, -hematuria MUSCULOSKELETAL: -back pain, -neck pain SKIN: -rash or skin lesions. HEMATOLOGIC: -easy bruising or bleeding. LYMPHATIC: -swollen, enlarged glands. NEUROLOGICAL: -altered mental status or loss of consciousness, -headache, - neurologic symptoms PSYCHIATRIC: -anxiety, -depression. ALL OTHER SYSTEMS REVIEWED AND NEGATIVE. Physical Exam - Vital signs Vitals: Resp Pulse Ox 24 H 100 04/12/18 05:59 04/12/18 05:59 - Notes Notes: PHYSICAL EXAMINATION: GENERAL: Well-appearing, well-nourished and in no acute distress. HEAD: Atraumatic, normocephalic. EYES: Pupils equal round and reactive to light, extraocular movements intact, sclera anicteric, conjunctiva are normal. ENT: nares patent, oropharynx clear without exudates. Moist mucous membranes. NECK: Normal range of motion, supple without lymphadenopathy LUNGS: Breath sounds clear to auscultation bilaterally and equal. No wheezes rales or rhonchi. HEART: Regular rate and rhythm without murmurs ABDOMEN: Soft, nontender, normoactive bowel sounds. No guarding, no rebound. No masses appreciated. EXTREMITIES: Normal range of motion, no pitting or edema. No cyanosis. NEUROLOGICAL: Cranial nerves grossly intact. Normal speech, normal gait. Normal sensory and motor exams. PSYCH: Normal mood, normal affect. SKIN: Warm, Dry, normal turgor, no rashes or lesions noted. Course - Re-evaluation Re-evalutation: 04/12/18 07:50 Pleasant 62-year-old dialysis patient presents with resolved symptoms. Extensive lab workup is near his baseline. Patient would like to be discharged to bring it to his dialysis appointment. I think is safe for discharge at this time. Return if anything changes. 04/12/18 07:51 Patient's troponin near his baseline. Patient's profound renal disease troponin is barely out of range. - Vital Signs Vital signs: Temp Pulse Resp BP Pulse Ox 97.7 F 24 H 207/115 H 100 04/12/18 06:01 04/12/18 06:01 04/12/18 06:01 04/12/18 06:09 - Laboratory Result Diagrams: 04/12/18 06:55 04/12/18 06:55 Laboratory results interpreted by me: 04/12/18 04/12/18 04/12/18 06:55 06:55 06:55 RDW 15.7 H Sodium 149.4 H Anion Gap 22 H BUN 46 H Creatinine 5.37 H Est GFR ( Amer) 13 L Est GFR (Non-Af Amer) 11 L Glucose 187 H Alkaline Phosphatase 255 H Creatine Kinase 23 L CK-MB (CK-2) 5.89 H Total Protein 9.5 H - EKG Interpretation by Me Additional EKG results interpreted by me: 04/12/18 06:20 Normal sinus rhythm, 94 bpm, normal QRS, no ST elevations or depressions. No pathologic T-wave inversions. Discharge - Discharge Clinical Impression: Elevated troponin I level Chest pain Qualifiers: Chest pain type: unspecified Qualified Code(s): R07.9 - Chest pain, unspecified Condition: Stable Disposition: HOME, SELF-CARE Instructions: Chest Pain of Unclear Cause ([facility]) Referrals: KEEGAN MONTENEGRO MD [Primary Care Provider] - Follow up as needed
--- NOTE | 2018-04-12 06:32 | RADIOLOGY REPORT (SQ) ---
EXAM DESCRIPTION: XR CHEST 1 VIEW CLINICAL HISTORY: 62 years Male, cp COMPARISON: 4..18 NUMBER OF VIEWS/TECHNIQUE: 1/AP FINDINGS: Adequate lung volume, prominent interstitium, small streaky opacity of the left lower lobe, small left infrahilar opacity, small hazy opacity-layered effusion obscures the left hemidiaphragm, normal cardiac silhouette, left subclavian double lumen central line tip at the cavoatrial junction, and sternotomy. IMPRESSION: Small left lower lobar pneumonia/atelectasis.
[2018-04-12] MEDS ORDERED: ONDANSETRON 4 MG TAB.RAPDIS ONE (06:35)
[2018-04-12] MEDS ORDERED: ONDANSETRON 4 MG TAB.RAPDIS PO ONE (06:40)
[2018-04-12 07:07] LABS: ABSOLUTE BASOPHILS # (AUTO) 0.1 10^3/uL (0.0-0.2); ABSOLUTE EOSINOPHILS # (AUTO) 0.2 10^3/uL (0.0-0.6); ABSOLUTE LYMPHOCYTES (AUTO) 3.2 10^3/uL (0.5-4.7); ABSOLUTE MONOCYTES (AUTO) 0.4 10^3/uL (0.1-1.4); ABSOLUTE NEUT (AUTO) 4.1 10^3/uL (1.7-8.2); BASOPHILS % (AUTO) 0.8 % (0-2); EOSINOPHILS % (AUTO) 2.3 % (0-6); HEMATOCRIT 42.3 % (37.9-51.0); LYMPHOCYTES % (AUTO) 39.7 % (13-45); MEAN CORPUSCULAR HEMOGLOBIN 31.5 pg (27.0-33.4); MEAN CORPUSCULAR VOLUME 96 fl (80-97); MONOCYTES % (AUTO) 5.2 % (3-13); PLATELET COUNT 315 10^3/uL (150-450); RED BLOOD COUNT 4.42 10^6/uL (4.35-5.55); RED CELL DISTRIBUTION WIDTH 15.7 % (11.5-14.0); TOTAL CELLS COUNTED % (AUTO) 100 %
[2018-04-12 07:24] LABS: ALANINE AMINOTRANSFERASE 47 U/L (21-72); ALBUMIN 4.2 g/dL (3.5-5.0); ALKALINE PHOSPHATASE 255 U/L (38-126); ASPARTATE AMINO TRANSFERASE 46 U/L (17-59); BILIRUBIN,DIRECT 0.4 mg/dL (0.0-0.4); BILIRUBIN,TOTAL 0.4 mg/dL (0.2-1.3); BLOOD UREA NITROGEN 46 mg/dL (7-20); CALCIUM 9.6 mg/dL (8.4-10.2); CARBON DIOXIDE 22 mmol/L (22-30); CHLORIDE 105 mmol/L (98-107); CREATINE KINASE 23 U/L (55-170); GLUCOSE 187 mg/dL (75-110); POTASSIUM 4.9 mmol/L (3.6-5.0); SODIUM 149.4 mmol/L (137-145); TOTAL PROTEIN 9.5 g/dL (6.3-8.2)
[2018-04-12 07:28] LABS: ANION GAP 22 (5-19)
[2018-04-12 07:40] LABS: CREATINE KINASE MB 5.89 ng/mL (<4.55)
[2018-04-12 07:46] LABS: TROPONIN I 0.043 ng/mL
[2018-04-12 09:29] VITALS: BP 203/106
--- NOTE | 2018-04-12 16:38 | EKG REPORT ---
SEVERITY:- ABNORMAL ECG - SINUS RHYTHM PROBABLE LEFT VENTRICULAR HYPERTROPHY PROBABLE INFERIOR INFARCT, OLD ANTEROLATERAL INFARCT, AGE INDETERMINATE PROLONGED QT INTERVAL : Confirmed by: Zoe Lazo 12-Apr-2018 16:37:10
== END 2018-04-12 09:29 | disposition home or self-care (01) ==
LOC: ER 05:55
DX: R07.9 Chest pain, unspecified (principal); R79.89 Other specified abnormal findings of blood chemistry; Z99.2 Dependence on renal dialysis; I25.10 Atherosclerotic heart disease of native coronary artery without angina pectoris; I25.2 Old myocardial infarction; I10 Essential (primary) hypertension; J44.9 Chronic obstructive pulmonary disease, unspecified; E11.9 Type 2 diabetes mellitus without complications
CPT/HCPCS: 93005; 99285; 36415; 82553; 82550; 85025; 80053; 84484; 71045; 93010; A9270; S0119

== ENCOUNTER 2018-05-07 11:40 | Inpatient (IN) | payer OTHER, MEDICARE ==
[2018-05-07 12:17] LABS: ABSOLUTE BASOPHILS # (AUTO) 0.1 10^3/uL (0.0-0.2); ABSOLUTE EOSINOPHILS # (AUTO) 0.4 10^3/uL (0.0-0.6); ABSOLUTE LYMPHOCYTES (AUTO) 2.9 10^3/uL (0.5-4.7); ABSOLUTE MONOCYTES (AUTO) 0.9 10^3/uL (0.1-1.4); ABSOLUTE NEUT (AUTO) 4.8 10^3/uL (1.7-8.2); BASOPHILS % (AUTO) 0.9 % (0-2); EOSINOPHILS % (AUTO) 4.3 % (0-6); HEMOGLOBIN 14.2 g/dL (13.5-17.0); LYMPHOCYTES % (AUTO) 31.8 % (13-45); MEAN CORPUSCULAR HGB CONC 33.1 g/dL (32.0-36.0); MEAN CORPUSCULAR VOLUME 94 fl (80-97); MONOCYTES % (AUTO) 10.3 % (3-13); PLATELET COUNT 268 10^3/uL (150-450); RED CELL DISTRIBUTION WIDTH 15.9 % (11.5-14.0); SEGMENTED NEUTROPHILS % (AUTO) 52.7 % (42-78); TOTAL CELLS COUNTED % (AUTO) 100 %
--- NOTE | 2018-05-07 12:22 | ER Document Report ---
ED General - General Chief Complaint: Chest Pain Stated Complaint: CHEST PAIN Time Seen by Provider: 05/07/18 11:51 Notes: Patient says that last night about 10:30 AM, he was feeling a "pressure" in the epigastric region of his chest. He has had this pain before and it has been due to GERD so he took some Tums and the pain was helped and he was able to sleep until about 3:30 this morning when he was awakened again by the same pain in the same location. He was not able to sleep anymore. He went to dialysis this morning and started the procedure about 10:45 AM and had been getting dialysis for about 15-20 minutes when the staff gave him some Kaopectate and some nitroglycerin and he then vomited. His pain is better now and is only present when he hiccups. He did vomit a couple times this morning and once last night. Denies feeling difficulty breathing or shortness of breath. Has not had any recent illness or fever. Patient has an extensive history including being on dialysis, even though he does make some urine on his own. He had a heart attack 10 years ago and then about 6 weeks ago he was an inpatient here for an infected foot any had a cardiac arrest and was transferred from here to [place] where he received some cardiac stents. He is currently on Plavix. IDDM. Hypertension, elevated cholesterol, GERD. TRAVEL OUTSIDE OF THE [place] IN LAST 30 DAYS: No - Related Data Allergies/Adverse Reactions: No Known Allergies Allergy (Verified 01/04/18 11:13) Past Medical History - Social History Smoking Status: Unknown if Ever Smoked Family History: Reviewed & Not Pertinent, CAD - Past Medical History Cardiac Medical History: Reports: Hx Congestive Heart Failure, Hx Coronary Artery Disease, Hx Heart Attack - QUADRUPLE BYPASS 2007, HEART MURMUR, Hx Hypercholesterolemia, Hx Hypertension Pulmonary Medical History: Reports: Hx Asthma, Hx COPD, Hx Pneumonia - HX. GUILLAIN-BARRE' SYNDROME, Hx Intubation, Hx Respiratory Failure, Hx Sleep Apnea - On C Pap Neurological Medical History: Reports: Hx Cerebrovascular Accident - 2006, Other - Guyon Ventura syndrome Endocrine Medical History: Reports: Hx Diabetes Mellitus Type 1, Hx Diabetes Mellitus Type 2 Renal/ Medical History: Reports: Hx End Stage Renal Disease, Hx Hemodialysis GI Medical History: Reports: Hx Gastroesophageal Reflux Disease Infectious Medical History: Reports: Hx C-Diff Past Surgical History: Reports: Hx Cardiac Catheterization, Hx Cardiac Surgery - double bypass, Hx Coronary Artery Bypass Graft - Quadruple bypass 2007, Hx Kidney (Renal Surgery) - RENAL TRANSPLANT, Hx Vascular Surgery - left AV fistual , Other - History peritoneal dialysis catheter placement and removal - Immunizations Immunizations up to date: Yes Hx Diphtheria, Pertussis, Tetanus Vaccination: Yes - UTD Hx Pneumococcal Vaccination: 08/16/16 Review of Systems - Review of Systems Notes: REVIEW OF SYSTEMS: CONSTITUTIONAL : Denies fever. EENT: Denies eye, ear, nose or mouth or throat pain or other symptoms. CARDIOVASCULAR: See HPI. RESPIRATORY: Denies cough, chest congestion, or shortness of breath. GASTROINTESTINAL: Denies abdominal pain. Nausea, vomiting, no diarrhea. GENITOURINARY: Denies difficulty or painful urinating, urinary frequency, blood in urine. MUSCULOSKELETAL: Denies back or neck pain. Denies joint pain or swelling. SKIN: Denies rash or skin lesions. NEUROLOGICAL: Denies LOC or altered mental status. Denies headache. Denies sensory loss or motor deficits. ALL OTHER SYSTEMS REVIEWED AND NEGATIVE. Physical Exam - Vital signs Vitals: Temp Pulse Resp BP Pulse Ox 98.6 F 85 19 149/75 H 99 05/07/18 11:42 05/07/18 11:42 05/07/18 11:42 05/07/18 11:42 05/07/18 11:42 Interpretation: Normal - Notes Notes: PHYSICAL EXAMINATION: GENERAL: Well-appearing, in no acute distress. Denies pain at this time. Vital signs are all essentially normal. HEAD: Atraumatic, normocephalic. EYES: Pupils equal round and reactive to light, extraocular movements intact. ENT: oropharynx clear without exudates. Moist mucous membranes. NECK: Normal range of motion, supple. LUNGS: Breath sounds clear and equal bilaterally. No chest wall tenderness. HEART: Regular rate and rhythm without murmurs. ABDOMEN: Soft, nontender. No guarding or rebound. No masses. No bruits heard. BACK: No tenderness throughout entire back. EXTREMITIES: Normal range of motion without pain. NEUROLOGICAL: Normal speech, normal gait. Normal sensory, motor, and reflex exams. Awake, alert, and oriented x3. Cranial nerves normal. PSYCH: Normal mood, normal affect. SKIN: Warm, dry, no rashes. Course - Re-evaluation Re-evalutation: 05/07/18 13:[address] Girard who will admit this patient to [facility]. Spoke with Dr. Toby Tavares, ironworker wire fence erector, and patient will be dialyzed at 4 PM for couple of hours. Spoke with Dr. Roper, volunteer services director, who will consult on the patient. - Vital Signs Vital signs: Temp Pulse Resp BP Pulse Ox 98.6 F 85 21 H 158/84 H 100 05/07/18 11:42 05/07/18 11:42 05/07/18 13:01 05/07/18 13:01 05/07/18 13:01 - Laboratory Result Diagrams: 05/07/18 11:50 05/07/18 11:50 Laboratory results interpreted by me: 05/07/18 05/07/18 11:50 11:50 RDW 15.9 H Potassium 5.7 H BUN 29 H Creatinine 4.03 H Est GFR ( Amer) 18 L Est GFR (Non-Af Amer) 15 L Glucose 173 H Direct Bilirubin 0.6 H AST 63 H Alkaline Phosphatase 187 H Creatine Kinase 52 L - Diagnostic Test Radiology results interpreted by me: 05/07/18 12:23 Chest x-ray does not show any acute findings. - EKG Interpretation by Me EKG shows normal: Sinus rhythm Rate: Normal Rhythm: NSR Voltage: Consistant with LVH When compared to previous EKG there are: No significant change Additional EKG results interpreted by me: 05/07/18 12:24 EKG shows significant LVH. There are ST segment changes consistent with hypertension and ischemia. The EKG is identical to an EKG from April 12, 2018. Discharge - Discharge Clinical Impression: Chest pain, End stage renal disease, Dialysis patient Condition: Stable Admitting Provider: [facility] Admitted: [facility] Referrals: KEEGAN GIRARD MD [Primary Care Provider] - Follow up as needed
--- NOTE | 2018-05-07 12:27 | RADIOLOGY REPORT (SQ) ---
EXAM DESCRIPTION: CHEST SINGLE VIEW COMPLETED DATE/TIME: 05/07/2018 12:15 pm REASON FOR STUDY: Chest pain COMPARISON: 04/12/2018 EXAM PARAMETERS: NUMBER OF VIEWS: One view. TECHNIQUE: Single frontal radiographic view of the chest acquired. RADIATION DOSE: NA LIMITATIONS: None. FINDINGS: LUNGS AND PLEURA: There is improved aeration of the left lung base with what appear to be mild residual infiltrates. MEDIASTINUM AND HILAR STRUCTURES: No masses. Contour normal. HEART AND VASCULAR STRUCTURES: Heart normal in size. Normal vasculature. BONES: No acute findings. HARDWARE: Dual-lumen catheter. Sternotomy wires. Graft markers. OTHER: No other significant finding. IMPRESSION: There may be a mild residual infiltrate in the left lower lobe. The overall appearance is improved compared to the earlier study. TECHNICAL DOCUMENTATION: JOB ID: [id number] [employer]- All Rights Reserved Reading location - IP/workstation name: [email or web address]
[2018-05-07 12:28] LABS: ALANINE AMINOTRANSFERASE 54 U/L (21-72); ALBUMIN 3.7 g/dL (3.5-5.0); ALKALINE PHOSPHATASE 187 U/L (38-126); ANION GAP 11 (5-19); ASPARTATE AMINO TRANSFERASE 63 U/L (17-59); BILIRUBIN,DIRECT 0.6 mg/dL (0.0-0.4); BILIRUBIN,TOTAL 0.8 mg/dL (0.2-1.3); BLOOD UREA NITROGEN 29 mg/dL (7-20); CALCIUM 9.3 mg/dL (8.4-10.2); CARBON DIOXIDE 30 mmol/L (22-30); CHLORIDE 101 mmol/L (98-107); CREATINE KINASE 52 U/L (55-170); GLUCOSE 173 mg/dL (75-110); POTASSIUM 5.7 mmol/L (3.6-5.0); SODIUM 141.6 mmol/L (137-145); TOTAL PROTEIN 8.2 g/dL (6.3-8.2)
[2018-05-07 12:40] LABS: CREATINE KINASE MB 3.71 ng/mL (<4.55)
[2018-05-07 12:43] LABS: TROPONIN I 0.059 ng/mL
[2018-05-07] MEDS ORDERED: ONDANSETRON HCL INJ/PF 4 MG/2 ML SDV IV PRN (14:19)
[2018-05-07] MEDS ORDERED: ACETAMINOPHEN 325 MG TABLET PO PRN (14:19)
[2018-05-07] MEDS ORDERED: IPRATROPIUM/ALBUTEROL 0.5-2.5 MG/3 ML AMPUL NEB PRN (14:19)
[2018-05-07] MEDS ORDERED: GLUCAGON,HUMAN RECOMB 1 MG INJ IM PRN (14:24)
[2018-05-07] MEDS ORDERED: DEXTROSE 50%-WATER 25 GM/50 ML DISP.SYRIN IV PRN ×2 (14:24)
[2018-05-07] MEDS ORDERED: DEXTROSE 40% GEL 15 GM TUBE PO PRN ×2 (14:24)
--- NOTE | 2018-05-07 15:54 | EKG REPORT ---
SEVERITY:- ABNORMAL ECG - SINUS RHYTHM FIRST DEGREE AV BLOCK INFERIOR INFARCT, OLD ANTEROLATERAL INFARCT, RECENT : Confirmed by: Zoe Lazo 07-May-2018 15:54:02
[2018-05-07] MEDS ORDERED: (PENDING PHARMACY ID) (Insulin Aspart [Novolog Flexpen] 4 UNIT) SUBCUT SCH (16:00)
--- NOTE | 2018-05-07 16:58 | PDOC H&P ---
History of Present Illness Admission Date/PCP: 05/07/18 14:13 KEEGAN MONTENEGRO MD Patient complains of: Chest pains epigastric discomfort History of Present Illness: KATHRYN HURLEY is a 62 year old male This is a 62-year-old male with a significant history of the coronary artery disease status post coronary artery bypass graft with recently have a cardiac stent placement after the cardiac arrest and patient was transferred to the [place] at that point with a significant history of renal transplants failure and currently on hemodialysisAlso history of the Glllin bar syndrome And a history of the strokes and multiple other comorbidityStart complaining some epigastric pressures not feeling well some chest discomfort last night unable to sleep took symptoms not getting better went to the dialysis today and up to 1520 minutes of the dialysisStart complaining some epigastric discomfort chest pressure and patient was given nitroglycerin and a Kaopectate and patient started vomiting and brought to the emergency department where patient was not complaining any chest pain with chest complain hi cup Patient initial cardiac workup is all stable including the EKG and first cardiac enzyme was all negatives His blood work is all stable pt is currently denied any chest pain denied any shortness of the breath With a significant medical history decided to admit in the hospital for further evaluations and consult the cardiology Past Medical History Cardiac Medical History: Reports: Congestive Heart Failure, Coronary Artery Disease, Myocardial Infarction - QUADRUPLE BYPASS 2007, HEART MURMUR, Hyperlipidema, Hypertension Pulmonary Medical History: Reports: Asthma, Chronic Obstructive Pulmonary Disease (COPD), Intubation, Pneumonia - HX. GUILLAIN-BARRE' SYNDROME, Respiratory Failure, Sleep Apnea - On C Pap Denies: Bronchitis Neurological Medical History: Reports: Other - Guyon Ventura syndrome Denies: Seizures Endocrine Medical History: Reports: Diabetes Mellitus Type 1, Diabetes Mellitus Type 2 Renal/ Medical History: Reports: End Stage Renal Disease GI Medical History: Reports: Gastroesophageal Reflux Disease Denies: Crohn's Disease, Diverticulitis, Ulcerative Colitis Musculoskeltal Medical History: Denies: Arthritis Psychiatric Medical History: Denies: Depression Hematology: Reports: Anemia Infectious Medical History: Reports: Clostridium Difficile Past Surgical History Past Surgical History: Reports: Cardiac Catheterization, Coronary Artery Bypass Graft - Quadruple bypass 2007, Vascular Surgery - left AV fistual, Other - History peritoneal dialysis catheter placement and removal Social History Smoking Status: Unknown if Ever Smoked Frequency of Alcohol Use: None Hx Recreational Drug Use: No Drugs: None Hx Prescription Drug Abuse: No - Advance Directive Resuscitation Status: Full Code Family History Family History: Reviewed & Not Pertinent, CAD Parental Family History Reviewed: Yes Children Family History Reviewed: Yes Sibling(s) Family History Reviewed.: Yes Medication/Allergy Home Medications: Atorvastatin Calcium [Lipitor 10 mg Tablet] 10 mg PO BID 02/24/18 Isosorbide Mononitrate [Isosorbide Mononitrate ER] 30 mg PO QAM 02/24/18 Lisinopril [Prinivil 5 mg Tablet] 5 mg PO QHS 02/24/18 Omeprazole 20 mg PO QAM 02/24/18 Prednisone [Deltasone 5 mg Tablet] 5 mg PO QAM 02/24/18 Tamsulosin HCl [Flomax 0.4 mg Cap.sr] 0.4 mg PO QAM 02/24/18 Ascorbic Acid [Vitamin C] 250 mg PO QAM 05/07/18 Aspirin [Aspirin 325 mg Tablet] 325 mg PO DAILY 05/07/18 Clopidogrel Bisulfate [Plavix 75 mg Tablet] 75 mg PO QAM 05/07/18 Ergocalciferol (Vitamin D2) [Vitamin D2] 50,000 unit PO TH@0800 05/07/18 Insulin Aspart [Novolog Flexpen] 0 unit SUBCUT .SLD SCALE 05/07/18 Insulin Aspart [Novolog Flexpen] 4 unit SUBCUT .MEALS 05/07/18 Insulin Glargine,Hum.rec.anlog [Lantus Solostar] 3 unit SQ QHS 05/07/18 Allergies/Adverse Reactions: No Known Allergies Allergy (Verified 05/07/18 14:39) Review of Systems Constitutional: ABSENT: chills, fever(s), headache(s), weight gain, weight loss Eyes: ABSENT: visual disturbances Ears: ABSENT: hearing changes Cardiovascular: PRESENT: chest pain. ABSENT: dyspnea on exertion, edema, orthropnea, palpitations Respiratory: ABSENT: cough, hemoptysis Gastrointestinal: PRESENT: nausea, vomiting. ABSENT: abdominal pain, constipation, diarrhea, hematemesis, hematochezia Genitourinary: ABSENT: dysuria, hematuria Musculoskeletal: ABSENT: joint swelling Integumentary: ABSENT: rash, wounds Neurological: ABSENT: abnormal gait, abnormal speech, confusion, dizziness, focal weakness, syncope Psychiatric: ABSENT: anxiety, depression, homidical ideation, suicidal ideation Endocrine: ABSENT: cold intolerance, heat intolerance, menstrual abnormalities, polydipsia, polyuria Hematologic/Lymphatic: ABSENT: easy bleeding, easy bruising, lymphadenopathy Physical Exam Vital Signs: Temp Pulse Resp BP Pulse Ox 98.6 F 85 15 158/74 H 98 05/07/18 11:42 05/07/18 11:42 05/07/18 14:01 05/07/18 14:01 05/07/18 14:01 General appearance: PRESENT: no acute distress, well-developed, well-nourished Head exam: PRESENT: atraumatic, normocephalic Eye exam: PRESENT: conjunctiva pink, EOMI, PERRLA. ABSENT: scleral icterus Ear exam: PRESENT: normal external ear exam Mouth exam: PRESENT: moist, tongue midline Neck exam: PRESENT: full ROM. ABSENT: carotid bruit, JVD, lymphadenopathy, thyromegaly Respiratory exam: PRESENT: clear to auscultation jolie Cardiovascular exam: PRESENT: RRR. ABSENT: diastolic murmur, rubs, systolic murmur Pulses: PRESENT: normal dorsalis pedis pul, +2 pedal pulses bilateral Vascular exam: PRESENT: normal capillary refill GI/Abdominal exam: PRESENT: normal bowel sounds, soft. ABSENT: distended, guarding, mass, organolmegaly, rebound, tenderness Rectal exam: PRESENT: deferred Neurological exam: PRESENT: alert, awake, oriented to person, oriented to place , oriented to time. ABSENT: motor sensory deficit Additional comments: Patients have a bilateral lower extremity weakness unable to move much due to the Guillain Ventura syndrome Psychiatric exam: PRESENT: appropriate affect, normal mood. ABSENT: homicidal ideation, suicidal ideation Skin exam: PRESENT: dry, intact, warm. ABSENT: cyanosis, rash Results Impressions: Chest X-Ray 05/07/18 12:05 IMPRESSION: There may be a mild residual infiltrate in the left lower lobe. The overall appearance is improved compared to the earlier study. Assessment & Plan - Diagnosis (1) Chest pain Qualifiers: Chest pain type: unspecified Qualified Code(s): R07.9 - Chest pain, unspecified Is this a current diagnosis for this admission?: Yes Plan: Admit the patient in IMCU we will rule out the acute coronary syndrome and consult the cardiology and start the patient on Protonix for possible underlying GI issues (2) End stage renal disease Is this a current diagnosis for this admission?: Yes Plan: Consulted Dr. Tavares for the hemodialysis today (3) Anemia in chronic kidney disease (CKD) Qualifiers: Chronic kidney disease stage: stage 5, not on chronic dialysis Qualified Code(s): N18.5 - Chronic kidney disease, stage 5; D63.1 - Anemia in chronic kidney disease; D63.1 - Anemia in chronic kidney disease Is this a current diagnosis for this admission?: Yes (4) Axonal GBS (Guillain-Purvis syndrome) Is this a current diagnosis for this admission?: Yes Plan: By the neurology at [place] (5) Coronary artery disease Qualifiers: Coronary Disease-Associated Artery/Lesion type: unspecified vessel or lesion type Is this a current diagnosis for this admission?: Yes Plan: Patients does not have a cardiac stent placement at [place] status post cardiac arrest [place] (6) Diabetes mellitus, type II Qualifiers: Diabetes mellitus superintendent container terminal insulin use: with shelter use Diabetes mellitus complication status: with other specified complication Qualified Code (s): E11.69 - Type 2 diabetes mellitus with other specified complication; Z79.4 - superintendent container terminal (current) use of insulin; Z79.4 - superintendent container terminal (current) use of insulin ; Z79.4 - superintendent container terminal (current) use of insulin; Z79.4 - superintendent container terminal (current) use of insulin Is this a current diagnosis for this admission?: Yes Plan: Continues to sliding scale (7) History of kidney transplant Is this a current diagnosis for this admission?: Yes Plan: Currently on hemodialysis (8) Hypertension Qualifiers: Hypertension type: essential hypertension Is this a current diagnosis for this admission?: Yes Plan: Continues to current medications (9) Leg ulcer Qualifiers: Laterality: unspecified laterality Is this a current diagnosis for this admission?: Yes Plan: Patient's currently see the wound care clinic continues to follow wound care per protocol (10) Obstructive uropathy Is this a current diagnosis for this admission?: Yes (11) Sleep apnea syndrome Qualifiers: Sleep apnea type: unspecified type Is this a current diagnosis for this admission?: Yes Plan: Currently uses CPAP (12) Cerebrovascular disease Is this a current diagnosis for this admission?: Yes (13) Gastroesophageal reflux disease Qualifiers: Esophagitis presence: without esophagitis Qualified Code(s): K21.9 - Gastro -esophageal reflux disease without esophagitis Is this a current diagnosis for this admission?: Yes Plan: Continues to Protonix (14) History of Clostridium difficile infection Is this a current diagnosis for this admission?: Yes Plan: Patient's concern about C. difficile will check the stool for the C. 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
[2018-05-07] MEDS ORDERED: INSULIN REG, HUMAN 100 UNIT/ML 3 ML VIAL (PYX) SUBCUT SCH (17:00)
[2018-05-07] MEDS ORDERED: VANCOMYCIN HCL 1,000 MG in DEXTROSE 5%-WATER 250 ML IV SCH (18:00)
--- NOTE | 2018-05-07 18:33 | PDOC CONSULTATION ---
Consultation Consult Date: 05/07/18 Consult reason:: Hemodialysis and hyperkalemia. History of Present Illness Admission Date/PCP: 05/07/18 14:13 KEEGAN MONTENEGRO MD History of Present Illness: KATHRYN HURLEY is a 62 year old male with a history of [place], hypertension, diabetes mellitus, ESRD on hemodialysis was admitted with history of dyspepsia, epigastric pain, nausea vomiting since last night after eating nachos. However it got worse this morning on dialysis at [facility]. Apparently he only had 15 minutes of dialysis when this happened was followed by nausea vomiting and therefore had to be taken off the machine and he was transferred to the ER.No complaints of any chest pain or shortness of breath. Patient was recently admitted here for a foot ulcer and went on to have cardiac arrest. Was transferred to [facility] that he had urgent cardiac catheterization and had multiple cardiac stent placements.Patient is currently undergoing dialysis which is being supervised. Vital signs are stable. Labs and medications were reviewed with the patient.Orders were reviewed with the treating dialysis nurse. He also mentions he had 2 episodes of painless hematuria last night and today AM. He only makes scanty amounts of urine - approx 3-4 oz qd. Past Medical History Cardiac Medical History: Reports: CHF-Diastolic, Coronary Artery Disease, Hyperlipidemia, Hypertension-primary, Myocardial Infarction - QUADRUPLE BYPASS 2007, HEART MURMUR Pulmonary Medical History: Reports: Asthma, Chronic Obstructive Pulmonary Disease (COPD), Intubation, Pneumonia - HX. GUILLAIN-BARRE' SYNDROME, Respiratory Failure, Sleep Apnea - On C Pap Denies: Bronchitis Neurological Medical History: Reports: Other - [place] syndrome Denies: Seizures Endocrine Medical History: Reports: Diabetes Mellitus Type 2 Complications of Diabetes: Reports: Nephropathy Renal/ Medical History: Reports: End Stage Renal Disease, Secondary Hyperparathyroidism GI Medical History: Reports: Gastroesophageal Reflux Disease Denies: Crohn's Disease, Diverticulitis, Ulcerative Colitis Musculoskeltal Medical History: Denies: Arthritis Psychiatric Medical History: Denies: Depression Infectious Medical History: Reports: Clostridium Difficile Hematology Medical History: Reports Anemia of Chronic Kidney Disease Past Surgical History Past Surgical History: Reports: Cardiac Catheterization, Coronary Artery Bypass Graft - Quadruple bypass 2007, Vascular Surgery - left AV fistual, Other - History peritoneal dialysis catheter placement and removal Social History Smoking Status: Unknown if Ever Smoked Frequency of Alcohol Use: None Hx Recreational Drug Use: No Drugs: None Hx Prescription Drug Abuse: No - Advance Directive Resuscitation Status: Full Code Family History Parental Family History Reviewed: Yes - Negative for ESRD Children Family History Reviewed: No Sibling(s) Family History Reviewed.: No Medication/Allergy Home Medications: Atorvastatin Calcium [Lipitor 10 mg Tablet] 10 mg PO BID 02/24/18 Isosorbide Mononitrate [Isosorbide Mononitrate ER] 30 mg PO QAM 02/24/18 Lisinopril [Prinivil 5 mg Tablet] 5 mg PO QHS 02/24/18 Omeprazole 20 mg PO QAM 02/24/18 Prednisone [Deltasone 5 mg Tablet] 5 mg PO QAM 02/24/18 Tamsulosin HCl [Flomax 0.4 mg Cap.sr] 0.4 mg PO QAM 02/24/18 Ascorbic Acid [Vitamin C] 250 mg PO QAM 05/07/18 Aspirin [Aspirin 325 mg Tablet] 325 mg PO DAILY 05/07/18 Clopidogrel Bisulfate [Plavix 75 mg Tablet] 75 mg PO QAM 05/07/18 Ergocalciferol (Vitamin D2) [Vitamin D2] 50,000 unit PO TH@0800 05/07/18 Insulin Aspart [Novolog Flexpen] 0 unit SUBCUT .SLD SCALE 05/07/18 Insulin Aspart [Novolog Flexpen] 4 unit SUBCUT .MEALS 05/07/18 Insulin Glargine,Hum.rec.anlog [Lantus Solostar] 3 unit SQ QHS 05/07/18 Allergies/Adverse Reactions: No Known Allergies Allergy (Verified 05/07/18 14:39) Review of Systems Constitutional: PRESENT: fatigue. ABSENT: fever(s), headache(s), night sweats Nose, Mouth, and Throat: ABSENT: mouth pain, sore throat Cardiovascular: PRESENT: dyspnea on exertion, edema. ABSENT: chest pain, orthropnea Respiratory: ABSENT: cough, hemoptysis Gastrointestinal: PRESENT: abdominal pain, bloating, nausea, vomiting. ABSENT: diarrhea, heartburn, hematemesis, hematochezia Musculoskeletal: PRESENT: back pain. ABSENT: deformity Integumentary: ABSENT: lesions, pruritus Neurological: PRESENT: numbness. ABSENT: abnormal speech, confusion, convulsions, focal weakness Psychiatric: PRESENT: anxiety Hematologic/Lymphatic: ABSENT: easy bruising, lymphadenopathy Physical Exam Vital Signs: Temp Pulse Resp BP Pulse Ox 98.6 F 85 15 158/74 H 98 05/07/18 11:42 05/07/18 11:42 05/07/18 14:01 05/07/18 14:01 05/07/18 14:01 General appearance: PRESENT: no acute distress Eye exam: PRESENT: conjunctiva pink, EOMI, PERRLA Ear exam: PRESENT: normal external ear exam Mouth exam: PRESENT: neck supple. ABSENT: moist Neck exam: ABSENT: lymphadenopathy, meningismus, tenderness, thyromegaly, tracheal deviation Respiratory exam: PRESENT: clear to auscultation jolie. ABSENT: crackles, rhonchi Cardiovascular exam: PRESENT: +S1, +S2, systolic murmur GI/Abdominal exam: PRESENT: normal bowel sounds, soft. ABSENT: ascites, distended, organomegaly, tenderness Extremities exam: PRESENT: pedal edema. ABSENT: calf tenderness, joint swelling Neurological exam: PRESENT: alert, awake, oriented to person, oriented to place Psychiatric exam: PRESENT: anxious Skin exam: ABSENT: cyanosis, mottled, rash Results Impressions: Chest X-Ray 05/07/18 12:05 IMPRESSION: There may be a mild residual infiltrate in the left lower lobe. The overall appearance is improved compared to the earlier study. Assessment & Plan - Diagnosis (1) End stage renal disease Is this a current diagnosis for this admission?: Yes Plan: Patient currently undergoing dialysis. Is being supervised to ensure safe and smooth procedure. Vital signs are stable. Plan to remove 1-2 L as tolerated. Potassium should improve postdialysis. Orders were reviewed and discussed with the treating dialysis nurse. (2) Gastroesophageal reflux disease Qualifiers: Esophagitis presence: without esophagitis Qualified Code(s): K21.9 - Gastro -esophageal reflux disease without esophagitis Is this a current diagnosis for this admission?: Yes Plan: If this is just a GERD episode then conservative management is all that is needed. (3) History of Clostridium difficile colitis Plan: History of. Currently inactive.Advised contact precautions. (4) Anemia in chronic kidney disease (CKD) Qualifiers: Chronic kidney disease stage: stage 5, not on chronic dialysis Qualified Code(s): N18.5 - Chronic kidney disease, stage 5; D63.1 - Anemia in chronic kidney disease; D63.1 - Anemia in chronic kidney disease Is this a current diagnosis for this admission?: Yes Plan: Adjust erythropoietin. Monitor. 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 (6) Coronary artery disease Qualifiers: Coronary Disease-Associated Artery/Lesion type: unspecified vessel or lesion type [place] vs. transplanted heart: [place] heart Associated angina: angina presence unspecified Qualified Code(s): I25.10 - Atherosclerotic heart disease of [place] coronary artery without angina pectoris Plan: Recent cardiac arrest here followed by transferred to [facility] where he had multiple stent placements. (7) Diabetes mellitus, type II Qualifiers: Diabetes mellitus rodent exterminator insulin use: with rodent exterminator use Diabetes mellitus complication status: with other specified complication Qualified Code (s): E11.69 - Type 2 diabetes mellitus with other specified complication; Z79.4 - ad terminal makeup operator (current) use of insulin; Z79.4 - ad terminal makeup operator (current) use of insulin ; Z79.4 - ad terminal makeup operator (current) use of insulin; Z79.4 - [facility] (current) use of insulin Is this a current diagnosis for this admission?: Yes Plan: Advised tight sugar control. (8) Hypertension Qualifiers: Hypertension type: essential hypertension Qualified Code(s): I10 - Essential (primary) hypertension Is this a current diagnosis for this admission?: Yes Plan: Relatively well controlled. Monitor. See response to dialysis. (9) VRE (vancomycin-resistant Enterococci) infection Plan: History of. Advised contact precautions. (10) Hematuria Plan: Apparently had CT abdomen in [facility] last month and was not told of any Kidney lesions.This needs to be followed as an Out patient Urology consult.If he does not urinate tomorrow might consider a Judge catheter and UA to r/o UTI.
[2018-05-07] MEDS: ATORVASTATIN CALCIUM 10 MG TABLET PO SCH (21:56)
[2018-05-07] MEDS: INSULIN GLARGINE,HUM.REC.ANLOG 300 UNIT/3 ML INSULN.PEN SUBCUT SCH (21:56)
[2018-05-07] MEDS: LISINOPRIL 5 MG TABLET PO SCH (21:56)
[2018-05-07] MEDS: INSULIN LISPRO 100 UNIT/ML 3 ML VIAL SUBCUT SCH (21:57)
[2018-05-07] MEDS: HEPARIN SOD (PORCINE) 5,000 UNIT/ML 1 ML SYRINGE SUBCUT SCH (21:57)
[2018-05-07] MEDS ORDERED: PANTOPRAZOLE SODIUM 40 MG VIAL IV SCH (22:00)
[2018-05-07 22:12] LABS: CREATINE KINASE MB 3.87 ng/mL (<4.55); TROPONIN I 0.057 ng/mL
[2018-05-08 03:40] LABS: ABSOLUTE BASOPHILS # (AUTO) 0.1 10^3/uL (0.0-0.2); ABSOLUTE EOSINOPHILS # (AUTO) 0.5 10^3/uL (0.0-0.6); ABSOLUTE LYMPHOCYTES (AUTO) 3.3 10^3/uL (0.5-4.7); ABSOLUTE NEUT (AUTO) 2.1 10^3/uL (1.7-8.2); BASOPHILS % (AUTO) 1.3 % (0-2); EOSINOPHILS % (AUTO) 7.8 % (0-6); HEMATOCRIT 38.2 % (37.9-51.0); HEMOGLOBIN 12.9 g/dL (13.5-17.0); LYMPHOCYTES % (AUTO) 46.2 % (13-45); MEAN CORPUSCULAR HEMOGLOBIN 31.3 pg (27.0-33.4); MEAN CORPUSCULAR HGB CONC 33.6 g/dL (32.0-36.0); MEAN CORPUSCULAR VOLUME 93 fl (80-97); MONOCYTES % (AUTO) 14.7 % (3-13); PLATELET COUNT 257 10^3/uL (150-450); RED BLOOD COUNT 4.11 10^6/uL (4.35-5.55); RED CELL DISTRIBUTION WIDTH 15.9 % (11.5-14.0); TOTAL CELLS COUNTED % (AUTO) 100 %; WHITE BLOOD COUNT 7.1 10^3/uL (4.0-10.5)
[2018-05-08 03:53] LABS: ALANINE AMINOTRANSFERASE 44 U/L (21-72); ALBUMIN 3.4 g/dL (3.5-5.0); ALKALINE PHOSPHATASE 155 U/L (38-126); ANION GAP 8 (5-19); ASPARTATE AMINO TRANSFERASE 34 U/L (17-59); BILIRUBIN,DIRECT 0.5 mg/dL (0.0-0.4); BILIRUBIN,TOTAL 0.5 mg/dL (0.2-1.3); BLOOD UREA NITROGEN 21 mg/dL (7-20); CALCIUM 8.9 mg/dL (8.4-10.2); CARBON DIOXIDE 33 mmol/L (22-30); CHLORIDE 101 mmol/L (98-107); GLUCOSE 114 mg/dL (75-110); SODIUM 142.3 mmol/L (137-145); TOTAL PROTEIN 7.7 g/dL (6.3-8.2)
[2018-05-08 04:04] LABS: CREATINE KINASE MB 3.29 ng/mL (<4.55); TROPONIN I 0.056 ng/mL
[2018-05-08] MEDS: LANSOPRAZOLE 15 MG TAB.RAP.DR PO SCH (05:45)
[2018-05-08] MEDS: HEPARIN SOD (PORCINE) 5,000 UNIT/ML 1 ML SYRINGE SUBCUT SCH ×3 (05:58→21:50)
[2018-05-08] MEDS ORDERED: (PENDING PHARMACY ID) (Ascorbic Acid [Vitamin C] 250 MG) PO SCH (08:00)
[2018-05-08] MEDS: PREDNISONE 5 MG TABLET PO SCH (08:55)
[2018-05-08] MEDS: ISOSORBIDE MONONITRATE 30 MG TAB.ER.24H PO SCH (08:56)
[2018-05-08] MEDS: CLOPIDOGREL BISULFATE 75 MG TABLET PO SCH (08:56)
[2018-05-08] MEDS: ASCORBIC ACID 500 MG TABLET PO SCH (08:56)
[2018-05-08] MEDS: ATORVASTATIN CALCIUM 10 MG TABLET PO SCH ×2 (08:56→22:06)
[2018-05-08] MEDS: ASPIRIN 325 MG TABLET PO SCH (08:56)
[2018-05-08] MEDS: TAMSULOSIN HCL 0.4 MG CAP.SR.24H PO SCH (08:57)
[2018-05-08] MEDS: INSULIN LISPRO 100 UNIT/ML 3 ML VIAL SUBCUT SCH ×3 (08:57→17:31)
--- NOTE | 2018-05-08 15:13 | PDOC PROGRESS REPORT ---
Subjective Progress Note for:: 05/08/18 Subjective:: Patient reported intermittent episodes of hematuria. He claimed history of kidney stones. Arrangement underway on outpatient bases to see urologist. He denied nausea or vomiting. No abdominal pain, fever or chills. No chest pain or difficulty with breathing. Reason For Visit: CHEST PAIN Physical Exam Vital Signs: Temp Pulse Resp BP Pulse Ox 97.6 F 74 14 100/45 L 96 05/08/18 12:00 05/08/18 12:00 05/08/18 12:00 05/08/18 12:00 05/08/18 12:00 Intake & Output 05/07/18 05/08/18 05/09/18 06:59 06:59 06:59 Intake Total 255 355 Output Total 2500 0 Balance -2245 355 Weight 98.5 kg General appearance: PRESENT: no acute distress, well-developed, well-nourished Head exam: PRESENT: atraumatic, normocephalic Eye exam: PRESENT: conjunctiva pink. ABSENT: conjunctival injection, scleral icterus Mouth exam: PRESENT: moist Respiratory exam: PRESENT: clear to auscultation jolie, decreased breath sounds - at lung bases Cardiovascular exam: PRESENT: RRR. ABSENT: diastolic murmur, rubs, systolic murmur Vascular exam: ABSENT: pallor GI/Abdominal exam: PRESENT: normal bowel sounds, soft. ABSENT: distended, guarding, mass, organolmegaly, rebound, tenderness Extremities exam: PRESENT: full ROM, left AKA, right AKA, left BKA, right BKA, calf tenderness, joint swelling, pedal edema, tenderness, other Musculoskeletal exam: PRESENT: normal inspection Neurological exam: PRESENT: alert, awake, oriented to person, oriented to place , oriented to time, oriented to situation, CN II-XII grossly intact. ABSENT: motor sensory deficit Psychiatric exam: PRESENT: appropriate affect, normal mood. ABSENT: homicidal ideation, suicidal ideation Skin exam: PRESENT: dry, intact, warm, other - healing leg ulcers undergoing evaluation at the [facility].. ABSENT: cyanosis, rash Results Laboratory Results: 05/08/18 03:29 05/08/18 03:29 05/08/18 05/08/18 03:29 03:29 WBC 7.1 RBC 4.11 L Hgb 12.9 L Hct 38.2 MCV 93 MCH 31.3 MCHC 33.6 RDW 15.9 H Plt Count 257 Seg Neutrophils % 30.0 L Lymphocytes % 46.2 H Monocytes % 14.7 H Eosinophils % 7.8 H Basophils % 1.3 Absolute Neutrophils 2.1 Absolute Lymphocytes 3.3 Absolute Monocytes 1.0 Absolute Eosinophils 0.5 Absolute Basophils 0.1 Sodium 142.3 Potassium 4.7 D Chloride 101 Carbon Dioxide 33 H Anion Gap 8 BUN 21 H Creatinine 2.89 H Est GFR ( Amer) 27 L Est GFR (Non-Af Amer) 22 L Glucose 114 H Calcium 8.9 Total Bilirubin 0.5 AST 34 ALT 44 Alkaline Phosphatase 155 H Total Protein 7.7 Albumin 3.4 L 05/07/18 05/07/18 05/07/18 15:30 15:30 15:30 Creatine Kinase 56 CK-MB (CK-2) 4.13 Troponin I 0.061 Cancelled 05/07/18 05/07/18 05/08/18 21:22 21:22 03:29 Creatine Kinase 50 L 37 L CK-MB (CK-2) 3.87 Troponin I 0.057 05/08/18 03:29 Creatine Kinase CK-MB (CK-2) 3.29 Troponin I 0.056 Impressions: Chest X-Ray 05/07/18 12:05 IMPRESSION: There may be a mild residual infiltrate in the left lower lobe. The overall appearance is improved compared to the earlier study. Assessment & Plan - Diagnosis (1) ESRD on hemodialysis Is this a current diagnosis for this admission?: Yes Plan: See covering attending physician orders. (2) Hematuria Qualifiers: Hematuria type: idiopathic Glomerular morphologic changes: unspecified whether glomerular morphologic changes present Qualified Code(s): N02.9 - Recurrent and persistent hematuria with unspecified morphologic changes Is this a current diagnosis for this admission?: Yes Plan: See covering attending physician orders. (3) Diabetes mellitus, type II Qualifiers: Diabetes mellitus termite treater helper insulin use: with halfway use Diabetes mellitus complication status: with other specified complication Qualified Code (s): E11.69 - Type 2 diabetes mellitus with other specified complication; Z79.4 - senior living (current) use of insulin; Z79.4 - equipment operator intermodal yard (current) use of insulin ; Z79.4 - senior living (current) use of insulin; Z79.4 - senior living (current) use of insulin Is this a current diagnosis for this admission?: Yes Plan: See covering attending physician orders. (4) Hypertension Qualifiers: Hypertension type: essential hypertension Qualified Code(s): I10 - Essential (primary) hypertension Is this a current diagnosis for this admission?: Yes Plan: See covering attending physician orders. (5) Sleep apnea syndrome Qualifiers: Sleep apnea type: unspecified type Is this a current diagnosis for this admission?: Yes Plan: See covering attending physician orders. - Inpatient Certification Based on my medical assessment, after consideration of the patient's comorbidities, presenting symptoms, or acuity I expect that the services needed warrant INPATIENT care.: Yes I certify that my determination is in accordance with my understanding of Medicare's requirements for reasonable and necessary INPATIENT services [42 CFR 412.3e].: Yes Medical Necessity: Need Close Monitoring Due to Risk of Patient Decompensation, Need For Continuous Telemetry Monitoring, Risk of Complication if Not Cared For in Hospital Post Hospital Care: D/C Desktop Publishing Associate Documentation - Plan Summary Plan Summary: See covering attending physician orders.
[2018-05-08 15:45] LABS: APPEARANCE,URINE TURBID; BILIRUBIN,URINE NEGATIVE (NEGATIVE); COLOR,URINE AMBER; GLUCOSE, URINE 150 mg/dL (NEGATIVE); KETONES,URINE NEGATIVE (NEGATIVE); LEUKOCYTE ESTERASE,URINE SMALL (NEGATIVE); NITRITE,URINE NEGATIVE (NEGATIVE); PROTEIN,URINE >=500 mg/dL (NEGATIVE); URINE SPECIFIC GRAVITY 1.024; UROBILINOGEN,URINE NEGATIVE mg/dL (<2.0)
[2018-05-08] MEDS: LISINOPRIL 5 MG TABLET PO SCH (22:06)
[2018-05-08] MEDS: INSULIN GLARGINE,HUM.REC.ANLOG 300 UNIT/3 ML INSULN.PEN SUBCUT SCH (22:07)
[2018-05-09 05:16] LABS: ABSOLUTE BASOPHILS # (AUTO) 0.1 10^3/uL (0.0-0.2); ABSOLUTE EOSINOPHILS # (AUTO) 0.4 10^3/uL (0.0-0.6); ABSOLUTE LYMPHOCYTES (AUTO) 3.5 10^3/uL (0.5-4.7); ABSOLUTE MONOCYTES (AUTO) 1.2 10^3/uL (0.1-1.4); ABSOLUTE NEUT (AUTO) 2.6 10^3/uL (1.7-8.2); BASOPHILS % (AUTO) 0.7 % (0-2); EOSINOPHILS % (AUTO) 5.3 % (0-6); HEMATOCRIT 34.6 % (37.9-51.0); HEMOGLOBIN 11.6 g/dL (13.5-17.0); LYMPHOCYTES % (AUTO) 44.8 % (13-45); MEAN CORPUSCULAR HEMOGLOBIN 31.5 pg (27.0-33.4); MEAN CORPUSCULAR HGB CONC 33.7 g/dL (32.0-36.0); MEAN CORPUSCULAR VOLUME 94 fl (80-97); MONOCYTES % (AUTO) 15.4 % (3-13); PLATELET COUNT 242 10^3/uL (150-450); RED CELL DISTRIBUTION WIDTH 15.3 % (11.5-14.0); SEGMENTED NEUTROPHILS % (AUTO) 33.8 % (42-78); TOTAL CELLS COUNTED % (AUTO) 100 %; WHITE BLOOD COUNT 7.8 10^3/uL (4.0-10.5)
[2018-05-09] MEDS: HEPARIN SOD (PORCINE) 5,000 UNIT/ML 1 ML SYRINGE SUBCUT SCH ×3 (06:17→22:36)
[2018-05-09] MEDS: LANSOPRAZOLE 15 MG TAB.RAP.DR PO SCH (06:17)
[2018-05-09 07:24] LABS: POTASSIUM 4.7 mmol/L (3.6-5.0)
[2018-05-09] MEDS: TAMSULOSIN HCL 0.4 MG CAP.SR.24H PO SCH (09:12)
[2018-05-09] MEDS: ISOSORBIDE MONONITRATE 30 MG TAB.ER.24H PO SCH (09:12)
[2018-05-09] MEDS: ASPIRIN 325 MG TABLET PO SCH (09:12)
[2018-05-09] MEDS: CLOPIDOGREL BISULFATE 75 MG TABLET PO SCH (09:13)
[2018-05-09] MEDS: ATORVASTATIN CALCIUM 10 MG TABLET PO SCH ×2 (09:13→22:35)
[2018-05-09] MEDS: INSULIN LISPRO 100 UNIT/ML 3 ML VIAL SUBCUT SCH ×3 (09:13→18:29)
[2018-05-09] MEDS: ASCORBIC ACID 500 MG TABLET PO SCH (09:13)
[2018-05-09] MEDS: PREDNISONE 5 MG TABLET PO SCH (09:13)
--- NOTE | 2018-05-09 14:25 | CONSULTATION REPORT E ---
Consultation Report NAME: KATHRYN HURLEY : 1955 AGE: 62Y DATE: 05/08/2018 330 A TO: RENAY CLINTON M.D. FROM: KEEGAN MONTENEGRO M.D. Requesting Physician REASON FOR CONSULTATION: Patient with epigastric pain and burping in a patient with a history of coronary artery bypass graft surgery. 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 States that he had sudden onset of burning sensation in his epigastrium. This also was associated with burping and burping increased it. It was not related to exertion. On questioning further, the patient clearly states that this is not the pain he had when he had non-ST elevation MO and cardiac arrest n February 2018 when he had chest pressure like somebody sitting on his chest and . The patient states that this is similar to GERD/heartburn symptom symptoms. He denies any shortness of breath, PND, orthopnea, palpitations, syncope or near syncope. There is no TIA or CVA symptoms. There is no history of cough or fever or chills or rigors. PAST MEDICAL HISTORY: 1. Positive for history of coronary artery disease. The patient has had myocardial infarction in 2007 after which he has a coronary artery bypass graft surgery with a PARKER to the LAD, SVG to the OM branch, saphenous vein graft to the RCA, and saphenous vein graft to the diagonal branch. He had mild chest pressure/heaviness in February 2018 after which he had a pulseless electrical activity and was successfully resuscitated and sent to [place]. He had a non-ST elevation MO at that time. He had a cardiac catheterization which showed apart from [place] 3-vessel disease which was significant with total obtusions in the vessel. He had patent PARKER with diffuse disease in the [place] LAD that the PARKER was supplying. There were lesions in the saphenous vein graft to the diagonal which was stented. There were also lesions in the saphenous vein graft to the obtuse bundle branch which was stented and he had PDP of the anastomosis of the saphenous vein graft [place] obtuse marginal branch. 2. He has a past history of congestive heart failure. 3. He has a history of end-stage renal disease on hemodialysis. Prior to that he used to get peritoneal dialysis. He also had a history of renal transplant which failed. 4. He also has AV fistula on the left arm which is non-working and the patient does have dialysis Perma-Cath in his left jugular. 5. He has a history of hypertension. 6. He has a history of diabetes mellitus type 2, insulin dependent. 7. 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 8. Due to Guillain-Ellsworth syndrome, he had respiratory failure and arrest and had to be intubated. 9. He also has a history of asthma and COPD. He is an ex-smoker. 10. He also has CPAP and uses CPAP at night. 11. There is no history of thyroid disease. 12. There is no recurrence of cardiac arrest since revascularization percutaneously done in February 2018 at [facility]. 13. He has a history of GERD. 14. He has no history of GI bleed. 15. He has a past history of C. difficile colitis. 16. He has no history of anxiety or depression. 17. No history of arthritis. 18. He does have a history of anemia due to chronic kidney disease. PAST SURGICAL HISTORY: Positive for cardiac catheterization, coronary artery bypass graft surgery in 2007, vascular surgery in the left arm AV fistula that has failed. He also has a history of stent placement to the saphenous vein graft as mentioned earlier in February 2018. He also had a history of Peritoneal dialysis catheter in the past which had to be removed due to nonfunctioning. SOCIAL HISTORY: The patient is a former smoker. Quit smoking a long time ago. FAMILY HISTORY: Positive for coronary artery disease and hypertension. DISPOSITION: The patient is a FULL CODE. His is his surrogate healthcare decision maker. ALLERGIES: He has no known allergies. MEDICATIONS: 1. Tylenol 650 mg p.o. q.4 hours p.r.n. 2. Ascorbic acid 250 mg p.o. q. a.m. 3. Aspirin 325 mg p.o. daily. 4. Atorvastatin 10 mg p.o. q.12 hours. 5. Plavix 75 mg p.o. q. a.m. 6. Glucose 40% gel 15 g p.o. p.r.n. and 30 g p.o. p.r.n. hypoglycemia. 7. Dextrose 50% 12.5 g IV and 25 g IV p.r.n. hypoglycemia. 8. Glucagon 1 mg IM p.r.n. 9. Heparin 5000 units . 10. Lantus insulin 3 units subcutaneously daily at bedtime. 11. Accu-Cheks AC on sliding scale insulin coverage 12. He also gets Humalog insulin 4 units subcutaneously with each meal. 13. He is on ipratropium albuterol Duoneb nebulizer treatment q.6 hours p.r.n. 14. He is on isosorbide mononitrate 30 mg p.o. q. a.m. 15. He is Prilosec 15 mg p.o. q. 6:00 a.m. 16. He is lisinopril 5 mg p.o. daily at bedtime. 17. He is on prednisone 5 mg p.o. q. a.m. 18. Flomax 0.4 mg p.o. q. a.m. 19. Lisinopril 5 mg p.o. daily at bedtime. REVIEW OF SYSTEMS: CONSTITUTIONAL: Denies any fever, chills or rigors. Complains of generalized fatigue and weakness. HEAD: Denies any headaches or head injury. EYES: No history of amblyopia or diplopia. No history of amaurosis fugax. EARS: No history of hearing loss. No history of tinnitus. No history of recurrent ear infections. NOSE: No history of hay fever. No history of nosebleeds. No history of nasal polyps. MOUTH: No altered taste sensation. No ulcers in the mouth. No bleeding from the gums. THROAT: No history of odynophagia or dysphagia. No history of recurrent sore throats. SKIN: No history of pruritus. No history of eczema. No history of psoriasis. No yellowish discoloration of the skin. NECK: Denies any painful or painless swelling in the neck. No goiter. LUNGS: History of asthma, COPD. No acute symptoms or acute exacerbation of pneumonia. No cough or sputum production. No history of pleuritic chest pain, no hemoptysis. No history of pulmonary embolism. He has a history of sleep apnea and uses CPAP at night. CARDIAC: History of coronary artery disease, MO. History of bypass surgery. History of stents in the saphenous vein graft as mentioned earlier. Past history of congestive heart failure, none recently. History of hypertension present. No history of arrhythmias. No history of PND, orthopnea, leg edema or palpitations. No recurrence of cardiac arrest. Patient had a cardiac arrest in 2018 which was secondary to the patient's non-ST elevation MO. ENDOCRINE: No history of thyroid disease. History of diabetes mellitus type 2 insulin dependent. No history of polydipsia or polyuria. No history of heat or cold intolerance. MUSCULOSKELETAL: Denies arthritis or collagen vascular disease. METABOLIC: No history of gout. History of mild obesity present. History of hyperlipidemia present. GASTROINTESTINAL: History of GERD present. No history of GI bleed. No history of peptic ulcer disease. No history of hepatitis. No history of fatty food intolerance. No history of cirrhosis. No history of jaundice. No altered bowel movements. RENAL: History of end-stage renal disease. History of failed renal transplant. History of end-stage renal disease, earlier was dialysis now he is on hemodialysis. Failed AV fistula. Symptoms suggestive of prostate present. Patient on Flomax for this. CENTRAL NERVOUS SYSTEM: No history of TIA or CVA. 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 No history of seizures, headaches, or migraines. History of sleep apnea on CPAP. PSYCHIATRIC: No history of anxiety or depression. No suicidal ideation. No homicidal ideation. VASCULAR: No history of calf or buttock claudication. No history of CVT. HEMATOLOGICAL: History of anemia present. No bleeding diathesis. No history of clotting disorders. PHYSICAL EXAMINATION: GENERAL: On examination the patient is mildly obese but well-groomed. At present in no acute distress. VITAL SIGNS: Ge is afebrile with a temperature of 97.6 degrees Fahrenheit, pulse is 74 beats per minute, blood pressure 100/45, respirations are 18 per minute, O2 saturations are 96% on room air. HEENT: Head is atraumatic, normocephalic. Eyes: Pupils are equal, round and regular, reactive to light and accommodation. Extraocular movements are normal. There is no conjunctival pallor. There is no scleral icterus. Ears: Tympanic membranes are intact, external auditory canals are clear. Nose: There is no deviation of the nasal septum. There is no inflammation of the nasal mucous membranes of the mouth. Mucous membranes of the mouth are moist. Tongue is moist. There is no exudates. There is no bleeding from the gums. Throat: There is no redness of the oropharynx. There are no exudates. SKIN: There are no skin rashes. There is no petechiae, ecchymosis or skin lesions. Trachea is central. NECK: Supple. There is no JVD. There is no lymphadenopathy. Carotids are equal. There is no bruit. There is no goiter. LUNGS: Show no chest wall tenderness on palpation. There is diminished air entry and prolonged expiration without any rhonchi, rales, or wheezing. HEART: S1, S2 is heard. There is no S3 gallop. There is no S4 gallop. There is a systolic murmur in the left sternal border and the apex. There is no rub. ABDOMEN: Soft, nontender. There is no hepatosplenomegaly. Bowel sounds are well heard. EXTREMITIES: Femorals are diminished. Leg pulses are diminished. There are no femoral bruits. There is no pedal edema. There is no DVT or cellulitis. There is no calf tenderness. CENTRAL NERVOUS SYSTEM: There is weakness in both lower extremities. PSYCHIATRIC: The patient's judgment and insight are intact. His affect is normal. DIAGNOSTIC STUDIES: The patient's chest x-ray shows there may be a mild residue infected in the left lower lobe. Overall appearance has improved to the earlier study. Note the patient does not have any pneumonia. The patient's EGK shows first AV block, left anterior fascicular block, and MO possibly old. The patient's white count is 7,100, hemoglobin is 12.9, hematocrit is 38.2, platelet count is 237,000. The patient's sodium is 142.3, potassium 4.7 yesterday. The potassium was 5.7 prior to dialysis. After dialysis, it normalized to 4.7. His chloride is 101, CO2 is 33. The patient's BUN is 21, creatinine is 2.89. GFR is decreased to 27 mL and his glucose is 117. His liver function tests are normal except for a slightly elevated alkaline phosphatase of 155 and direct bilirubin of 0.5. His cardiac enzymes have been negative/indeterminate. His total protein is 7.4, albumin is 3.4. IMPRESSION: 1. Epigastric pain and heartburn most likely secondary to GERD. Does not appear to be cardiac. The patient stated these were different from his anginal symptoms. 2. Coronary artery disease, history of MO, history of cardiac arrest. 3. History of coronary artery bypass graft surgery. 4. History of old myocardial infarctions. 5. History of stent placement/PCTA of the saphenous vein graft to the OM branch and stent placement in the saphenous vein graft to the diagonal branch in February 2018. 6. GERD. 7. Hypertension. 8. End-stage renal disease on hemodialysis. 9. Obstructive sleep apnea on CPAP. 10. History of Guillain-Ellsworth syndrome. 11. History of renal transplant which has failed. 12. Diabetes mellitus type 2 insulin requiring. 13. Asthma/COPD. 14. History of Clostridium difficile infection. RECOMMENDATIONS: Note that the patient's blood pressure is 100/ . His medications have been reviewed. Would wait and see if the patient's blood pressure goes up and then we will start the patient on a beta sudheer and also start the patient on some nitrates. Would continue the patient's aspirin. Would change the patient's Lipitor to 20 mg p.o. at bedtime instead of q.12 hours. Continue Plavix. Continue his antidiabetic medicine and continue his lisinopril and his prednisone. Note, the patient was seen around 12 noon, 35 minutes spent on the patient with more than 50% of the time spent in direct patient care. His old records including those from [facility] have been reviewed. Discussed with the patient. Discussed with the other caregiving providers on the case. Medical decision-making is of high complexity. Will follow with you. Note that there is no definite evidence of myocardial infarction on this admission. Would also increase the patient's GERD medicine. DICTATING PHYSICIAN: RENAY CLINTON M.D. [id number] PHY#: [id number] ID: [id number] JOB#: [id number] ACCT: [id number] cc:RENAY CLINTON M.D. >
--- NOTE | 2018-05-09 14:55 | PDOC PROGRESS REPORT ---
Subjective Progress Note for:: 05/09/18 Subjective:: Patient denied recurrence of intermittent hematuria since last clinical evaluation. No fever or chills. He denied nausea, vomiting, or abdominal pain. No chest pain or difficulty with breathing. Reason For Visit: CHEST PAIN Physical Exam Vital Signs: Temp Pulse Resp BP Pulse Ox 98.5 F 81 16 127/56 H 100 05/09/18 12:00 05/09/18 12:00 05/09/18 12:00 05/09/18 12:00 05/09/18 12:00 Intake & Output 05/08/18 05/09/18 05/10/18 06:59 06:59 06:59 Intake Total 255 1442 473 Output Total 2500 0 0 Balance -2245 1442 473 Weight 68.5 kg 64 kg Physical Exam: General appearance: PRESENT: no acute distress, well-developed, well-nourished Head exam: PRESENT: atraumatic, normocephalic Eye exam: PRESENT: conjunctiva pink. ABSENT: conjunctival injection, scleral icterus Mouth exam: PRESENT: moist Respiratory exam: PRESENT: clear to auscultation jolie, decreased breath sounds - at lung bases Cardiovascular exam: PRESENT: RRR. ABSENT: diastolic murmur, rubs, systolic murmur Vascular exam: ABSENT: pallor GI/Abdominal exam: PRESENT: normal bowel sounds, soft. ABSENT: distended, guarding, mass, organomegaly, rebound, tenderness Extremities exam: PRESENT: full ROM, ABSENT: edema, no amputation. Musculoskeletal exam: PRESENT: normal inspection Neurological exam: PRESENT: alert, awake, oriented to person, oriented to place , oriented to time, oriented to situation, CN II-XII grossly intact. ABSENT: motor sensory deficit Psychiatric exam: PRESENT: appropriate affect, normal mood. ABSENT: homicidal ideation, suicidal ideation Skin exam: PRESENT: dry, intact, warm, other - healing leg ulcers undergoing evaluation at the [facility] [place].. ABSENT: cyanosis, rash Results Laboratory Results: 05/09/18 04:50 05/08/18 03:29 05/08/18 05/08/18 05/09/18 03:29 14:50 04:50 WBC 7.8 RBC 3.70 L Hgb 11.6 L Hct 34.6 L MCV 94 MCH 31.5 MCHC 33.7 RDW 15.3 H Plt Count 242 Seg Neutrophils % 33.8 L Lymphocytes % 44.8 Monocytes % 15.4 H Eosinophils % 5.3 Basophils % 0.7 Absolute Neutrophils 2.6 Absolute Lymphocytes 3.5 Absolute Monocytes 1.2 Absolute Eosinophils 0.4 Absolute Basophils 0.1 Potassium 4.7 D Urine Color MITCHELL Urine Appearance TURBID Urine pH 8.0 Ur Specific Lutz 1.024 Urine Protein >=500 H Urine Glucose (UA) 150 H Urine Ketones NEGATIVE Urine Blood MODERATE H Urine Nitrite NEGATIVE Ur Leukocyte Esterase SMALL H Urine WBC (Auto) >182 Urine RBC (Auto) >182 05/07/18 05/07/18 05/07/18 15:30 15:30 15:30 Creatine Kinase 56 CK-MB (CK-2) 4.13 Troponin I 0.061 Cancelled 05/07/18 05/07/18 05/08/18 21:22 21:22 03:29 Creatine Kinase 50 L 37 L CK-MB (CK-2) 3.87 Troponin I 0.057 05/08/18 03:29 Creatine Kinase CK-MB (CK-2) 3.29 Troponin I 0.056 Impressions: Chest X-Ray 05/07/18 12:05 IMPRESSION: There may be a mild residual infiltrate in the left lower lobe. The overall appearance is improved compared to the earlier study. Assessment & Plan - Diagnosis (1) ESRD on hemodialysis Is this a current diagnosis for this admission?: Yes Plan: See covering attending physician orders. (2) Hematuria Qualifiers: Hematuria type: idiopathic Glomerular morphologic changes: unspecified whether glomerular morphologic changes present Qualified Code(s): N02.9 - Recurrent and persistent hematuria with unspecified morphologic changes Is this a current diagnosis for this admission?: Yes Plan: See covering attending physician orders. (3) Diabetes mellitus, type II Qualifiers: Diabetes mellitus terminal worker insulin use: with terminal worker use Diabetes mellitus complication status: with other specified complication Qualified Code (s): E11.69 - Type 2 diabetes mellitus with other specified complication; Z79.4 - technician terminal and repeater (current) use of insulin; Z79.4 - technician terminal and repeater (current) use of insulin ; Z79.4 - technician terminal and repeater (current) use of insulin; Z79.4 - shelter (current) use of insulin Is this a current diagnosis for this admission?: Yes Plan: See covering attending physician orders. (4) Hypertension Qualifiers: Hypertension type: essential hypertension Qualified Code(s): I10 - Essential (primary) hypertension Is this a current diagnosis for this admission?: Yes Plan: See covering attending physician orders. (5) Sleep apnea syndrome Qualifiers: Sleep apnea type: unspecified type Is this a current diagnosis for this admission?: Yes Plan: See covering attending physician orders. (6) Possible urinary tract infection Is this a current diagnosis for this admission?: Yes Plan: See covering attending physician orders. This could be colonization but due to his morbidities I will treat pending organism identification and sensitivity report. - Time Time Spent with patient: 25-34 minutes Medications reviewed and adjusted accordingly: Yes Anticipated discharge: Home Within: Other - Inpatient Certification Based on my medical assessment, after consideration of the patient's comorbidities, presenting symptoms, or acuity I expect that the services needed warrant INPATIENT care.: Yes I certify that my determination is in accordance with my understanding of Medicare's requirements for reasonable and necessary INPATIENT services [42 CFR 412.3e].: Yes Medical Necessity: Need Close Monitoring Due to Risk of Patient Decompensation, Need For Continuous Telemetry Monitoring, Need for IV Antibiotics, Risk of Complication if Not Cared For in Hospital Post Hospital Care: D/C Peer Specialist Documentation - Plan Summary Plan Summary: See covering attending physician orders.
[2018-05-09] MEDS ORDERED: CEFTRIAXONE 1 GM/D5W RTU 1 GM/50 ML RTUPB IV SCH (15:00)
[2018-05-09] MEDS: CEFTRIAXONE SODIUM 1,000 MG in DEXTROSE 5%-WATER 50 ML IV SCH (18:29)
--- NOTE | 2018-05-09 21:20 | PROGRESS NOTE E ---
Progress Note NAME: KATHRYN HURLEY : 1955 AGE: 62Y DATE: 05/09/2018 ROOM: 330 SUBJECTIVE: The patient denies any further chest pain or discomfort. There are no symptoms of GERD. There is no PND or orthopnea. There is no arrhythmia seen on the monitor. There are no TIA or CVA symptoms. OBJECTIVE: GENERAL: On examination, the patient is well built and well nourished, in no acute distress. VITAL SIGNS: He is afebrile with a temperature of 98.5 degrees Fahrenheit, pulse is 81 beats per minute, blood pressure 127/56, respirations 16 per minute, O2 sats are 100% on room air. HEENT: Head is atraumatic, normocephalic. Eyes: Pupils are equal, round, regular, reactive to light and accommodation. Extraocular movements are normal. There is no conjunctival pallor. There is no scleral icterus. ENT is negative. NECK: Supple. There is no JVD. There is no lymphadenopathy. Carotids are equal. There is no bruit. There is no goiter. Trachea central. LUNGS: Clear to auscultation and percussion except there is diminished air entry and prolonged expiration without any rhonchi, rales or wheezing. On percussion, there is hyperresonance. Today, there is no chest wall tenderness on palpation. HEART: S1 and S2 are heard. There is no S3 gallop. There is no S4 gallop. There is a systolic murmur in the left sternal border on the apex. There is no rub. ABDOMEN: Soft, nontender. There is no hepatosplenomegaly. Bowel sounds are well heard. EXTREMITIES: Femorals are diminished. Leg pulses diminished. There are no femoral bruits. There is no pedal edema. There is no DVT or cellulitis. There is no calf tenderness. CENTRAL NERVOUS SYSTEM: The patient is conscious, awake, alert, oriented x3. There is weakness in both lower extremities. PSYCHIATRIC: The patient's judgment and insight are intact. His affect is normal. LABORATORY DATA: The patient's blood sugar is 140. IMPRESSION: 1. EPIGASTRIC PAIN AND HEARTBURN MOST LIKELY SECONDARY TO GERD. This has resolved, appears to be noncardiac. 2. CORONARY ARTERY DISEASE, HISTORY OF [place], AND HISTORY OF CARDIAC ARREST. 3. HISTORY OF CORONARY ARTERY BYPASS GRAFT SURGERY. 4. HISTORY OF OLD MYOCARDIAL INFARCTION. 5. HISTORY OF STENT PLACEMENT WITH PTCA OF THE SAPHENOUS VEIN GRAFT TO THE OM BRANCH AND STENT PLACEMENT IN THE SAPHENOUS VEIN GRAFT TO THE DIAGONAL BRANCH IN 02/2018. 6. GERD. 7. HYPERTENSION. 8. END STAGE RENAL DISEASE, ON HEMODIALYSIS. 9. OBSTRUCTIVE SLEEP APNEA, ON CPAP. 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 11. HISTORY OF FAILED RENAL TRANSPLANT. 12. DIABETES MELLITUS TYPE 2, INSULIN REQUIRING. 13. ASTHMA/COPD. 14. HISTORY OF CLOSTRIDIUM DIFFICILE INFECTION. Note that the patient has no diarrhea. RECOMMENDATIONS: 1. The patient's blood pressure is much better. Hence, we will start the patient on Toprol XL from tomorrow 25 mg p.o. daily and if there is room, we will add a nighttime dose. This has been discussed with the patient. 2. Continue the patient on aspirin, proton pump inhibitor and other current medications. 3. We will change the patient's atorvastatin to 10 mg p.o. daily. 4. We will recheck the patient's lipid panel in the a.m. 5. We will follow with you. Note: The patient's medications have been reviewed. New medications have been added. CODE STATUS: The patient is a FULL CODE. His is the surrogate healthcare decision maker. Medical decision making is of moderate to high complexity and also the need for change in patient's medication. Discussed with the attending physician, currently Dr. Girard. We will follow with you. Later, would see if the patient could have a Lexiscan Cardiolite stress test either as an inpatient or outpatient. Cannot do tomorrow since the patient is on dialysis tomorrow. We will follow with you. TIME SPENT: Forty minutes spent on this patient. More than 50% of the time spent on direct patient care. DICTATING PHYSICIAN: RENAY CLINTON M.D. [id number] TDY#: [id number] ID: [id number] JOB#: [id number] ACCT: [id number] cc: >
[2018-05-09] MEDS: LISINOPRIL 5 MG TABLET PO SCH (22:35)
[2018-05-09] MEDS: INSULIN GLARGINE,HUM.REC.ANLOG 300 UNIT/3 ML INSULN.PEN SUBCUT SCH (22:35)
[2018-05-09] MEDS: INSULIN LISPRO 100 UNIT/ML 3 ML VIAL SUBCUT PRN (23:25)
[2018-05-10 06:41] LABS: ABSOLUTE EOSINOPHILS # (AUTO) 0.4 10^3/uL (0.0-0.6); ABSOLUTE LYMPHOCYTES (AUTO) 3.6 10^3/uL (0.5-4.7); ABSOLUTE NEUT (AUTO) 2.5 10^3/uL (1.7-8.2); BASOPHILS % (AUTO) 0.6 % (0-2); EOSINOPHILS % (AUTO) 4.8 % (0-6); HEMATOCRIT 34.5 % (37.9-51.0); HEMOGLOBIN 11.6 g/dL (13.5-17.0); LYMPHOCYTES % (AUTO) 48.4 % (13-45); MEAN CORPUSCULAR HEMOGLOBIN 31.2 pg (27.0-33.4); MEAN CORPUSCULAR HGB CONC 33.6 g/dL (32.0-36.0); MEAN CORPUSCULAR VOLUME 93 fl (80-97); MONOCYTES % (AUTO) 12.9 % (3-13); PLATELET COUNT 254 10^3/uL (150-450); RED BLOOD COUNT 3.71 10^6/uL (4.35-5.55); RED CELL DISTRIBUTION WIDTH 15.5 % (11.5-14.0); SEGMENTED NEUTROPHILS % (AUTO) 33.3 % (42-78); TOTAL CELLS COUNTED % (AUTO) 100 %; WHITE BLOOD COUNT 7.5 10^3/uL (4.0-10.5)
[2018-05-10] MEDS: LANSOPRAZOLE 15 MG TAB.RAP.DR PO SCH (06:50)
[2018-05-10] MEDS: HEPARIN SOD (PORCINE) 5,000 UNIT/ML 1 ML SYRINGE SUBCUT SCH ×3 (06:51→21:17)
[2018-05-10 06:59] LABS: ANION GAP 17 (5-19); BLOOD UREA NITROGEN 64 mg/dL (7-20); CALCIUM 8.8 mg/dL (8.4-10.2); CARBON DIOXIDE 24 mmol/L (22-30); CHLORIDE 104 mmol/L (98-107); GLUCOSE 89 mg/dL (75-110); POTASSIUM 5.2 mmol/L (3.6-5.0); SODIUM 144.7 mmol/L (137-145)
--- NOTE | 2018-05-10 08:29 | PDOC PROGRESS REPORT ---
Subjective Progress Note for:: 05/10/18 Subjective:: Patient is currently doing fair Patient hematuria is all resolved Patient's C. difficile is positive Patient's currently denied any abdominal pain no diarrhea Patient's very anxious to go home Patient scheduled for hemodialysis today Patient's denied any chest pain denied any shortness of the breath Patient's denied any abdominal pain Patient urine cultures positive for gram-negative organism Reason For Visit: CHEST PAIN Physical Exam Vital Signs: Temp Pulse Resp BP Pulse Ox 97.7 F 61 20 166/66 H 90 L 05/10/18 05:00 05/10/18 07:00 05/10/18 05:00 05/10/18 05:00 05/10/18 05:00 Intake & Output 05/09/18 05/10/18 05/11/18 06:59 06:59 06:59 Intake Total 1442 970 Output Total 0 0 Balance 1442 970 Weight 64 kg 64.6 kg General appearance: PRESENT: no acute distress, well-developed, well-nourished Head exam: PRESENT: atraumatic, normocephalic Eye exam: PRESENT: conjunctiva pink, EOMI, PERRLA. ABSENT: scleral icterus Ear exam: PRESENT: normal external ear exam Mouth exam: PRESENT: moist, tongue midline Neck exam: PRESENT: full ROM. ABSENT: carotid bruit, JVD, lymphadenopathy, thyromegaly Respiratory exam: PRESENT: clear to auscultation jolie Cardiovascular exam: PRESENT: RRR. ABSENT: diastolic murmur, rubs, systolic murmur Pulses: PRESENT: normal dorsalis pedis pul, +2 pedal pulses bilateral Vascular exam: PRESENT: normal capillary refill GI/Abdominal exam: PRESENT: normal bowel sounds, soft. ABSENT: distended, guarding, mass, organolmegaly, rebound, tenderness Rectal exam: PRESENT: deferred Extremities exam: ABSENT: pedal edema Neurological exam: PRESENT: alert, awake, oriented to person, oriented to place , oriented to time, oriented to situation, CN II-XII grossly intact. ABSENT: motor sensory deficit Psychiatric exam: PRESENT: appropriate affect, normal mood. ABSENT: homicidal ideation, suicidal ideation Skin exam: PRESENT: dry, intact, warm. ABSENT: cyanosis, rash Results Laboratory Results: 05/10/18 06:08 05/10/18 06:08 05/10/18 05/10/18 06:08 06:08 WBC 7.5 RBC 3.71 L Hgb 11.6 L Hct 34.5 L MCV 93 MCH 31.2 MCHC 33.6 RDW 15.5 H Plt Count 254 Seg Neutrophils % 33.3 L Lymphocytes % 48.4 H Monocytes % 12.9 Eosinophils % 4.8 Basophils % 0.6 Absolute Neutrophils 2.5 Absolute Lymphocytes 3.6 Absolute Monocytes 1.0 Absolute Eosinophils 0.4 Absolute Basophils 0.0 Sodium 144.7 Potassium 5.2 H Chloride 104 Carbon Dioxide 24 Anion Gap 17 BUN 64 H Creatinine 5.61 H Est GFR ( Amer) 13 L Est GFR (Non-Af Amer) 10 L Glucose 89 Calcium 8.8 05/07/18 05/07/18 05/07/18 15:30 15:30 15:30 Creatine Kinase 56 CK-MB (CK-2) 4.13 Troponin I 0.061 Cancelled 05/07/18 05/07/18 05/08/18 21:22 21:22 03:29 Creatine Kinase 50 L 37 L CK-MB (CK-2) 3.87 Troponin I 0.057 05/08/18 03:29 Creatine Kinase CK-MB (CK-2) 3.29 Troponin I 0.056 Impressions: Chest X-Ray 05/07/18 12:05 IMPRESSION: There may be a mild residual infiltrate in the left lower lobe. The overall appearance is improved compared to the earlier study. Assessment & Plan - Diagnosis (1) Chest pain Qualifiers: Chest pain type: unspecified Qualified Code(s): R07.9 - Chest pain, unspecified Is this a current diagnosis for this admission?: Yes Plan: Cardiology consult is already done and suggest a noncardiac (2) End stage renal disease Is this a current diagnosis for this admission?: Yes Plan: Consulted Dr. 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) Is this a current diagnosis for this admission?: Yes Plan: By the neurology at [place] (5) Coronary artery disease Qualifiers: Coronary Disease-Associated Artery/Lesion type: unspecified vessel or lesion type Is this a current diagnosis for this admission?: Yes Plan: Patients does not have a cardiac stent placement at [place] status post cardiac arrest [place] (6) Diabetes mellitus, type II Qualifiers: Diabetes mellitus senior care insulin use: with senior care use Diabetes mellitus complication status: with other specified complication Qualified Code (s): E11.69 - Type 2 diabetes mellitus with other specified complication; Z79.4 - terminal block assembler (current) use of insulin; Z79.4 - FPC (current) use of insulin ; Z79.4 - FPC (current) use of insulin; Z79.4 - terminal block assembler (current) use of insulin Is this a current diagnosis for this admission?: Yes (7) History of kidney transplant Is this a current diagnosis for this admission?: Yes (8) Hypertension Qualifiers: Hypertension type: essential hypertension Qualified Code(s): I10 - Essential (primary) hypertension Is this a current diagnosis for this admission?: Yes (9) Leg ulcer Qualifiers: Laterality: unspecified laterality Is this a current diagnosis for this admission?: Yes (10) Obstructive uropathy Is this a current diagnosis for this admission?: Yes (11) Sleep apnea syndrome Qualifiers: Sleep apnea type: unspecified type Is this a current diagnosis for this admission?: Yes (12) Cerebrovascular disease Is this a current diagnosis for this admission?: Yes (13) Gastroesophageal reflux disease Qualifiers: Esophagitis presence: without esophagitis Qualified Code(s): K21.9 - Gastro -esophageal reflux disease without esophagitis Is this a current diagnosis for this admission?: Yes (14) History of Clostridium difficile infection Is this a current diagnosis for this admission?: Yes Plan: Start the patient on the p.o. vancomycin's (15) Recurrent urinary tract infection Is this a current diagnosis for this admission?: Yes Plan: Wait for culture and sensitivity - Time Time Spent with patient: 15-24 minutes Medications reviewed and adjusted accordingly: Yes Anticipated discharge: Home Within: Other - Inpatient Certification Medical Necessity: Need Close Monitoring Due to Risk of Patient Decompensation Post Hospital Care: D/C Manager Convention Documentation - Plan Summary Plan Summary: Will wait for the culture and sensitivity start the p.o. vancomycin's discussed with the patient about possible discharge in next 24 hours
[2018-05-10] MEDS ORDERED: ONDANSETRON HCL INJ/PF 4 MG/2 ML SDV IV PRN (09:00)
[2018-05-10] MEDS: ATORVASTATIN CALCIUM 10 MG TABLET PO SCH (09:46)
[2018-05-10] MEDS: PREDNISONE 5 MG TABLET PO SCH (09:47)
[2018-05-10] MEDS: ASPIRIN 325 MG TABLET PO SCH (09:47)
[2018-05-10] MEDS: ISOSORBIDE MONONITRATE 30 MG TAB.ER.24H PO SCH (09:47)
[2018-05-10] MEDS: TAMSULOSIN HCL 0.4 MG CAP.SR.24H PO SCH (09:47)
[2018-05-10] MEDS: CLOPIDOGREL BISULFATE 75 MG TABLET PO SCH (09:47)
[2018-05-10] MEDS: ASCORBIC ACID 500 MG TABLET PO SCH (09:48)
[2018-05-10] MEDS: INSULIN LISPRO 100 UNIT/ML 3 ML VIAL SUBCUT SCH ×3 (09:55→21:01)
[2018-05-10] MEDS ORDERED: METOPROLOL SUCCINATE 25 MG TAB.SR.24H PO SCH (10:00)
[2018-05-10] MEDS: VANCOMYCIN HCL INJ 500 MG VIAL PO SCH ×2 (12:37→19:15)
[2018-05-10] MEDS: INSULIN LISPRO 100 UNIT/ML 3 ML VIAL SUBCUT PRN (12:43)
--- NOTE | 2018-05-10 17:48 | PDOC PROGRESS REPORT ---
Subjective Progress Note for:: 05/10/18 Reason For Visit: Patient seen on dialysis today. Undergoing dialysis without any issues. No more chest pains. He is now growing C. difficile positive and is being begun on p.o. vancomycin. I note that in the process his IV vancomycin has been discontinued for unclear reasons which he was getting osteomyelitis of his foot for 2 months. He has only received 6 doses so far at [facility].Denies any history of fever or chills. Apparently UA growing Serratia. Labs and medications were reviewed with the patient. Dialysis orders were reviewed with the treating dialysis nurse. Physical Exam Vital Signs: Temp Pulse Resp BP Pulse Ox 98.0 F 67 18 128/84 H 99 05/10/18 13:00 05/10/18 13:00 05/10/18 13:00 05/10/18 13:00 05/10/18 13:00 Intake & Output 05/09/18 05/10/18 05/11/18 06:59 06:59 06:59 Intake Total 1442 970 475 Output Total 0 0 0 Balance 1442 970 475 Weight 64 kg 64.6 kg General appearance: PRESENT: no acute distress Respiratory exam: PRESENT: clear to auscultation jolie. ABSENT: crackles Cardiovascular exam: PRESENT: +S1, +S2, systolic murmur GI/Abdominal exam: PRESENT: normal bowel sounds, soft. ABSENT: ascites, distended, organomegaly, tenderness Neurological exam: PRESENT: alert, awake, oriented to person, oriented to place , oriented to time Skin exam: ABSENT: erythema, mottled Results Laboratory Results: 05/10/18 06:08 05/10/18 06:08 05/10/18 05/10/18 06:08 06:08 WBC 7.5 RBC 3.71 L Hgb 11.6 L Hct 34.5 L MCV 93 MCH 31.2 MCHC 33.6 RDW 15.5 H Plt Count 254 Seg Neutrophils % 33.3 L Lymphocytes % 48.4 H Monocytes % 12.9 Eosinophils % 4.8 Basophils % 0.6 Absolute Neutrophils 2.5 Absolute Lymphocytes 3.6 Absolute Monocytes 1.0 Absolute Eosinophils 0.4 Absolute Basophils 0.0 Sodium 144.7 Potassium 5.2 H Chloride 104 Carbon Dioxide 24 Anion Gap 17 BUN 64 H Creatinine 5.61 H Est GFR ( Amer) 13 L Est GFR (Non-Af Amer) 10 L Glucose 89 Calcium 8.8 05/08/18 14:50 Clean Catch Midstream Urine Culture - Final Serratia Marcescens 05/07/18 05/07/18 05/07/18 15:30 15:30 15:30 Creatine Kinase 56 CK-MB (CK-2) 4.13 Troponin I 0.061 Cancelled 05/07/18 05/07/18 05/08/18 21:22 21:22 03:29 Creatine Kinase 50 L 37 L CK-MB (CK-2) 3.87 Troponin I 0.057 05/08/18 03:29 Creatine Kinase CK-MB (CK-2) 3.29 Troponin I 0.056 Impressions: Chest X-Ray 05/07/18 12:05 IMPRESSION: There may be a mild residual infiltrate in the left lower lobe. The overall appearance is improved compared to the earlier study. Assessment & Plan - Diagnosis (1) End stage renal disease Is this a current diagnosis for this admission?: Yes Plan: Patient was seen on dialysis.He is undergoing dialysis without any issues. Is being supervised to ensure safe and smooth procedure. Vital signs are stable. Plan to remove 1-2 L. Orders were reviewed and discussed with the treating dialysis nurse. (2) Gastroesophageal reflux disease Qualifiers: Esophagitis presence: without esophagitis Qualified Code(s): K21.9 - Gastro -esophageal reflux disease without esophagitis Is this a current diagnosis for this admission?: Yes Plan: Discuss to substitute PPI with H2 blockers given his active C. difficile now. (3) Anemia in chronic kidney disease (CKD) Qualifiers: Chronic kidney disease stage: stage 5, not on chronic dialysis Qualified Code(s): N18.5 - Chronic kidney disease, stage 5; D63.1 - Anemia in chronic kidney disease; D63.1 - Anemia in chronic kidney disease Is this a current diagnosis for this admission?: Yes Plan: Adjust erythropoietin. 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 (5) Coronary artery disease Qualifiers: Coronary Disease-Associated Artery/Lesion type: unspecified vessel or lesion type [place] vs. transplanted heart: [place] heart Associated angina: angina presence unspecified Qualified Code(s): I25.10 - Atherosclerotic heart disease of [place] coronary artery without angina pectoris Plan: Currently stable. (6) Diabetes mellitus, type II Qualifiers: Diabetes mellitus senior living insulin use: with termite control service representative use Diabetes mellitus complication status: with other specified complication Qualified Code (s): E11.69 - Type 2 diabetes mellitus with other specified complication; Z79.4 - skilled nursing (current) use of insulin; Z79.4 - terminal gauger (current) use of insulin ; Z79.4 - terminal gauger (current) use of insulin; Z79.4 - terminal gauger (current) use of insulin Is this a current diagnosis for this admission?: Yes Plan: Advised on tight diabetic control. (7) Hypertension Qualifiers: Hypertension type: essential hypertension Qualified Code(s): I10 - Essential (primary) hypertension Is this a current diagnosis for this admission?: Yes Plan: Relatively controlled. See response to dialysis. (9) Hematuria Plan: Likely from serratia infection. Starting on IV ceftaz edema and continue treatment and discharge as well at [facility]. Follow-up as an outpatient. (10) UTI (urinary tract infection) Qualifiers: Urinary tract infection type: site unspecified Hematuria presence: with hematuria Qualified Code(s): N39.0 - Urinary tract infection, site not specified Plan: Now growing Serratia UTI. Discuss with Dr. Girard to start ceftazidime postdialysis for 5 doses altogether. (11) C. difficile colitis Plan: He was on Flagyl earlier and now has been put on p.o. vancomycin. I discussed with Dr. Girard to DC the PPI as filled which is an high risk Independent factor for developing C. difficile in this patient. Substitute with H2 blockers if needed. (13) Osteomyelitis of foot, acute Plan: Patient is growing MRSA from bone Gram stain done at wound clinic. He is on a 2 month course of vancomycin and has had only 6 doses. Reinstitute IV vancomycin. Discussed with treating nurse and orders have been placed.
[2018-05-10] MEDS ORDERED: VANCOMYCIN HCL 1,000 MG in DEXTROSE 5%-WATER 250 ML IV ONE (20:00)
[2018-05-10] MEDS: CEFTRIAXONE SODIUM 1,000 MG in DEXTROSE 5%-WATER 50 ML IV SCH (21:24)
[2018-05-10] MEDS ORDERED: ATORVASTATIN CALCIUM 10 MG TABLET PO SCH (22:00)
[2018-05-10] MEDS: LISINOPRIL 5 MG TABLET PO SCH (22:08)
[2018-05-10] MEDS: METOPROLOL SUCCINATE 25 MG TAB.SR.24H PO SCH (22:08)
[2018-05-10] MEDS: INSULIN GLARGINE,HUM.REC.ANLOG 300 UNIT/3 ML INSULN.PEN SUBCUT SCH (22:09)
[2018-05-11] MEDS: VANCOMYCIN HCL INJ 500 MG VIAL PO SCH ×3 (00:22→13:24)
--- NOTE | 2018-05-11 04:15 | PROGRESS NOTE E ---
Progress Note NAME: KATHRYN HURLEY : 1955 AGE: 62Y DATE: 05/10/2018 ROOM: 330 SUBJECTIVE: The patient has no further symptoms of chest pain or discomfort. No symptoms of GERD. He has no PND, orthopnea or leg edema. There is no arrhythmia seen on the monitor. There are no TIA or CVA symptoms. The patient is awaiting dialysis today. His blood pressure is much improved and hence, we will increase the patient's Toprol XL to twice a day. OBJECTIVE: GENERAL: On examination, the patient is well built and well nourished, in no acute distress. VITAL SIGNS: He is afebrile with a temperature of 97.7 degrees Fahrenheit. His pulse is 74 beats per minute, blood pressure 159/86, respirations 16 per minute, O2 sats are 100% on room air. HEENT: Head is atraumatic, normocephalic. Eyes: Pupils are equal, round, regular, reactive to light and accommodation. Extraocular movements are normal. There is no conjunctival pallor. There is no scleral icterus. ENT is negative. NECK: Supple. There is no JVD. There is no lymphadenopathy. Carotids are equal. There is no bruit. There is no goiter. Trachea central. LUNGS: Clear to auscultation and percussion except there is diminished air entry and prolonged expiration without any rhonchi, rales or wheezing. On percussion, there is hyperresonance. Today, there is no chest wall tenderness on palpation. HEART: S1 and S2 are heard. There is no S3 gallop. There is no S4 gallop. There is a systolic murmur in the left sternal border at the apex. There is no rub. ABDOMEN: Soft, nontender. There is no hepatosplenomegaly. Bowel sounds are well heard. There is no rebound, guarding or rigidity. EXTREMITIES: Femorals are diminished. Leg pulses diminished. There are no femoral bruits. There is no pedal edema. There is no DVT or cellulitis. There is no calf tenderness. CENTRAL NERVOUS SYSTEM: The patient is conscious, awake, alert, oriented x3. There is bilateral leg weakness present. PSYCHIATRIC: The patient's judgment and insight are intact. His affect is normal. LABORATORY DATA: The patient's white count is 7400, hemoglobin 11.6, hematocrit 34.5, and platelet count 254,000. Sodium 144, potassium 5.2, chloride 104, CO2 24, BUN 64, creatinine 5.61, GFR reduced to 13 mL, glucose 89, calcium 8.8. IMPRESSION: 1. EPIGASTRIC PAIN AND HEARTBURN. Most likely secondary to gastroesophageal reflux disease. This is resolved and appears to be noncardiac. 2. CORONARY ARTERY DISEASE, HISTORY OF MYOCARDIAL INFARCTION, AND HISTORY OF CARDIAC ARREST. 3. HISTORY OF CORONARY ARTERY BYPASS GRAFT SURGERY. 4. HISTORY OF OLD MYOCARDIAL INFARCTION. 5. HISTORY OF STENT PLACEMENT. Percutaneous transluminal coronary angioplasty of the saphenous vein graft to the obtuse marginal, stent placement of the saphenous vein graft to the diagonal branch in February 2018 after cardiac arrest. 6. GASTROESOPHAGEAL REFLUX DISEASE. 7. HYPERTENSION. 8. END STAGE RENAL DISEASE ON HEMODIALYSIS. 9. OBSTRUCTIVE SLEEP APNEA ON CPAP. 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 11. HISTORY OF FAILED RENAL TRANSPLANT. 12. DIABETES MELLITUS TYPE 2, INSULIN REQUIRING. 13. ASTHMA/CHRONIC OBSTRUCTIVE PULMONARY DISEASE. RECOMMENDATIONS: Would increase the patient's Toprol XL. Continue the patient's atorvastatin. We will make it once a day. Also, continue the patient's aspirin, proton pump inhibitor and other current medications. The patient's Toprol XL has increased to twice a day. Note, medical decision-making is of high complexity. Medications have been reviewed. Medications have been increased and adjusted. The patient is desirous of following up with me as an outpatient. Note, 40 minutes spent on this patient with more than 50% of the time spent in direct patient care. We will follow with you. I have discussed with the hospitalist taking care of the patient. DICTATING PHYSICIAN: RENAY CLINTON M.D. [id number] PHY#: [id number] ID: [id number] JOB#: [id number] ACCT: [id number] cc: >
[2018-05-11] MEDS: HEPARIN SOD (PORCINE) 5,000 UNIT/ML 1 ML SYRINGE SUBCUT SCH ×2 (04:24→13:24)
[2018-05-11] MEDS: LANSOPRAZOLE 15 MG TAB.RAP.DR PO SCH (06:26)
--- NOTE | 2018-05-11 07:48 | PDOC DISCHARGE SUMMARY ---
General - Admit/Disc Date/PCP Admission Date/Primary Care Provider: 05/07/18 14:13 KEEGAN MONTENEGRO MD Discharge Date: 05/11/18 - Discharge Diagnosis (1) Chest pain Is this a current diagnosis for this admission?: Yes Summary: Patients to rule out acute coronary syndromes discussed with the Dr. Roper follow outpatient most likely a noncardiac (2) End stage renal disease Is this a current diagnosis for this admission?: Yes Summary: on hemodialysis (3) Anemia in chronic kidney disease (CKD) Is this a current diagnosis for this admission?: Yes (4) Axonal GBS (Guillain-Abingdon syndrome) Is this a current diagnosis for this admission?: Yes (5) Coronary artery disease Is this a current diagnosis for this admission?: Yes (6) Diabetes mellitus, type II Is this a current diagnosis for this admission?: Yes (7) History of kidney transplant Is this a current diagnosis for this admission?: Yes (8) Hypertension Is this a current diagnosis for this admission?: Yes (9) Leg ulcer Is this a current diagnosis for this admission?: Yes Summary: Currently on IV vancomycin's on the dialysis per Dr. Tavares and currently follow the wound care for possible osteomyelitis (10) Obstructive uropathy Is this a current diagnosis for this admission?: Yes Summary: Outpatients urology (11) Sleep apnea syndrome Is this a current diagnosis for this admission?: Yes Summary: CPAP (12) Cerebrovascular disease Is this a current diagnosis for this admission?: Yes (13) Gastroesophageal reflux disease Is this a current diagnosis for this admission?: Yes Summary: This with the Dr. Tavares DC the PPI due to the increased risk of the C. difficile start the patient on Zantac (14) History of Clostridium difficile infection Is this a current diagnosis for this admission?: Yes Summary: a p.o. vancomycin (15) Recurrent urinary tract infection Is this a current diagnosis for this admission?: Yes Summary: Patient is currently getting the IV cefazedime more treatment postdialysis per Dr. Tavares - Additional Information Resuscitation Status: Full Code Discharge Diet: Cardiac, Diabetic Discharge Activity: Activity As Tolerated Prescriptions: Ranitidine HCl [Zantac 150 mg Tablet] 150 mg PO BID #60 tablet Vancomycin HCl [Vancocin Inj 500 mg Vial] 125 mg PO Q6 #40 vial Home Medications: Atorvastatin Calcium [Lipitor 10 mg Tablet] 10 mg PO BID 02/24/18 Isosorbide Mononitrate [Isosorbide Mononitrate ER] 30 mg PO QAM 02/24/18 Lisinopril [Prinivil 5 mg Tablet] 5 mg PO QHS 02/24/18 Prednisone [Deltasone 5 mg Tablet] 5 mg PO QAM 02/24/18 Tamsulosin HCl [Flomax 0.4 mg Cap.sr] 0.4 mg PO QAM 02/24/18 Ascorbic Acid [Vitamin C] 250 mg PO QAM 05/07/18 Aspirin [Aspirin 325 mg Tablet] 325 mg PO DAILY 05/07/18 Clopidogrel Bisulfate [Plavix 75 mg Tablet] 75 mg PO QAM 05/07/18 Ergocalciferol (Vitamin D2) [Vitamin D2] 50,000 unit PO TH@0800 05/07/18 Insulin Aspart [Novolog Flexpen] 0 unit SUBCUT .SLD SCALE 05/07/18 Insulin Aspart [Novolog Flexpen] 4 unit SUBCUT .MEALS 05/07/18 Insulin Glargine,Hum.rec.anlog [Lantus Solostar] 3 unit SQ QHS 05/07/18 Ranitidine HCl [Zantac 150 mg Tablet] 150 mg PO BID #60 tablet 05/11/18 Vancomycin HCl [Vancocin Inj 500 mg Vial] 125 mg PO Q6 #40 vial 05/11/18 History of Present Illness History of Present Illness: KATHRYN HURLEY is a 62 year old male This is a 62-year-old male with a significant history of the coronary artery disease status post coronary artery bypass graft with recently have a cardiac stent placement after the cardiac arrest and patient was transferred to the [facility] at that point with a significant history of renal transplants failure and currently on hemodialysisAlso history of the Glllin bar syndrome And a history of the strokes and multiple other comorbidityStart complaining some epigastric pressures not feeling well some chest discomfort last night unable to sleep took symptoms not getting better went to the dialysis today and up to 1520 minutes of the dialysisStart complaining some epigastric discomfort chest pressure and patient was given nitroglycerin and a K[employer]ate and patient started vomiting and brought to the emergency department where patient was not complaining any chest pain with chest complain hi cup Patient initial cardiac workup is all stable including the EKG and first cardiac enzyme was all negatives His blood work is all stable pt is currently denied any chest pain denied any shortness of the breath With a significant medical history decided to admit in the hospital for further evaluations and consult the cardiology Hospital Course Hospital Course: This is a 62-year-old male with multiple medical problems present in the emergency department with a complaint of chest pains with and patients at this point admitting in the hospital for further evaluation and treatments rule out the acute coronary syndromes Seen by Dr. Roper and suggest that is noncardiac and follow outpatient She will also have a urinary tract infection hematuria currently all resolving and Dr. Tavares suggested continues IV antibiotic postdialysis for 5 more treatments\ Also recurrent C. difficile treated with the Flagyl in the past currently put on vancomycin p.o. Also have osteomyelitis in the leg ulcers and currently on IV vancomycin's on the dialysis per Dr. Tavares he is currently denied any abdominal pain no nausea no vomiting denied any diarrhea Discussed with the patient and the regarding the patient's current condition and patient anxious to go home Discussed with the Dr. Tavares regarding the all the plan Physical Exam Vital Signs: Temp Pulse Resp BP Pulse Ox 98.3 F 67 18 169/76 H 99 05/11/18 03:00 05/11/18 03:00 05/11/18 03:00 05/11/18 03:00 05/11/18 03:00 Intake & Output 05/10/18 05/11/18 05/12/18 06:59 06:59 06:59 Intake Total 970 1205 Output Total 0 2200 Balance 970 -995 Weight 64.6 kg 63.1 kg General appearance: PRESENT: no acute distress, well-developed, well-nourished Head exam: PRESENT: atraumatic, normocephalic Eye exam: PRESENT: conjunctiva pink, EOMI, PERRLA. ABSENT: scleral icterus Ear exam: PRESENT: normal external ear exam Mouth exam: PRESENT: moist, tongue midline Neck exam: PRESENT: full ROM. ABSENT: carotid bruit, JVD, lymphadenopathy, thyromegaly Respiratory exam: PRESENT: clear to auscultation jolie Cardiovascular exam: PRESENT: RRR. ABSENT: diastolic murmur, rubs, systolic murmur Pulses: PRESENT: normal dorsalis pedis pul, +2 pedal pulses bilateral Vascular exam: PRESENT: normal capillary refill GI/Abdominal exam: PRESENT: normal bowel sounds, soft. ABSENT: distended, guarding, mass, organolmegaly, rebound, tenderness Rectal exam: PRESENT: deferred Neurological exam: PRESENT: alert, awake, oriented to person, oriented to place , oriented to time, oriented to situation. ABSENT: motor sensory deficit Psychiatric exam: PRESENT: appropriate affect, normal mood. ABSENT: homicidal ideation, suicidal ideation Skin exam: PRESENT: dry, intact, warm. ABSENT: cyanosis, rash Results Laboratory Results: 05/10/18 06:08 05/10/18 06:08 05/08/18 14:50 Clean Catch Midstream Urine Culture - Final Serratia Marcescens 05/07/18 05/07/18 05/07/18 15:30 15:30 15:30 Creatine Kinase 56 CK-MB (CK-2) 4.13 Troponin I 0.061 Cancelled 05/07/18 05/07/18 05/08/18 21:22 21:22 03:29 Creatine Kinase 50 L 37 L CK-MB (CK-2) 3.87 Troponin I 0.057 05/08/18 03:29 Creatine Kinase CK-MB (CK-2) 3.29 Troponin I 0.056 Impressions: Chest X-Ray 05/07/18 12:05 IMPRESSION: There may be a mild residual infiltrate in the left lower lobe. The overall appearance is improved compared to the earlier study. Qualifiers - * PATIENT BEING DISCHARGED WITH ANY OF THE FOLLOWING DIAGNOSIS: No VTE patient discharged on overlapping Therapy?: Yes Plan Time Spent: Greater than 30 Minutes - he received IV antibiotic through the dialysisper nephrologyf/u in 1 week and we repeat the stool for C. difficile
[2018-05-11] MEDS: INSULIN LISPRO 100 UNIT/ML 3 ML VIAL SUBCUT SCH ×2 (10:14→13:24)
[2018-05-11] MEDS: TAMSULOSIN HCL 0.4 MG CAP.SR.24H PO SCH (10:15)
[2018-05-11] MEDS: CLOPIDOGREL BISULFATE 75 MG TABLET PO SCH (10:15)
[2018-05-11] MEDS: INSULIN LISPRO 100 UNIT/ML 3 ML VIAL SUBCUT PRN (10:15)
[2018-05-11] MEDS: METOPROLOL SUCCINATE 25 MG TAB.SR.24H PO SCH (10:15)
[2018-05-11] MEDS: ASPIRIN 325 MG TABLET PO SCH (10:15)
[2018-05-11] MEDS: ASCORBIC ACID 500 MG TABLET PO SCH (10:16)
[2018-05-11] MEDS: PREDNISONE 5 MG TABLET PO SCH (10:16)
[2018-05-11] MEDS: ISOSORBIDE MONONITRATE 30 MG TAB.ER.24H PO SCH (10:16)
[2018-05-11 12:46] VITALS: BP 129/64
--- NOTE | 2018-05-11 21:50 | PROGRESS NOTE E ---
Progress Note NAME: KATHRYN HURELY : 1955 AGE: 62Y DATE: 05/11/2018 ROOM: 330 SUBJECTIVE: Note that the patient denies any chest pain or discomfort. There is no arrhythmia seen on the monitor. The patient denies any PND, orthopnea. There is no TIA or CVA symptoms. The patient has no anginal symptoms. There is no PND, orthopnea, or shortness of breath. OBJECTIVE: GENERAL: On examination the patient is well-built and appears to be well-nourished, in no acute distress. VITAL SIGNS: He is afebrile with a temperature 98.2 degrees Fahrenheit, pulse is 69 basic metabolic panel, blood pressure is 129/64, respirations are 18 per minute, O2 sats are 98% on room air. HEENT: Head is atraumatic, normocephalic. Eyes: Pupils are equal, round and regular, reactive to light and accommodation. Extraocular movements are normal. There is no conjunctival pallor. There is no scleral icterus. ENT is negative. NECK: Supple. There is no JVD. There is no lymphadenopathy. There is no goiter. Carotids are equal. There is no bruit. Trachea is central. LUNGS: Clear to auscultation and percussion, except there is diminished air entry and prolonged expiration without any rhonchi, rales, or wheezing. There is no chest wall tenderness. Note that the patient has dialysis catheter on the left side of the chest. HEART: S1, S2 is heard. There is no S3 gallop. There is no S4 gallop. There is a systolic murmur in the left sternal border and the apex. There is no rub. ABDOMEN: Soft, nontender. There is no hepatosplenomegaly. Bowel sounds are well heard. There is no rebound, guarding, or rigidity. EXTREMITIES: Femorals are diminished. There are no femoral bruits. Leg pulses are diminished. There is no pedal edema. There is no DVT or cellulitis. There is no calf tenderness. CENTRAL NERVOUS SYSTEM: The patient is conscious, awake, alert and oriented x3. There is bilateral leg weakness. PSYCHIATRIC: The patient's judgment and insight are intact. His affect is normal. LABORATORY DATA: The patient's blood sugar is 169. IMPRESSION 1. EPIGASTRIC PAIN AND HEARTBURN, MOST LIKELY SECONDARY TO GERD, RESOLVED. No definite anginal symptoms. 2. CORONARY ARTERY DISEASE; HISTORY OF MYOCARDIAL INFARCTION AND HISTORY OF CARDIAC ARREST. 3. HISTORY OF CORONARY ARTERY BYPASS GRAFT. 4. HISTORY OF OLD MYOCARDIAL INFARCTION. 5. HISTORY OF STENT PLACEMENT. THE PATIENT HAD PERCUTANEOUS TRANSLUMINAL CORONARY ANGIOPLASTY OF THE ANASTOMOSIS OF THE SAPHENOUS VEIN GRAFT TO THE CIRCUMFLEX AND ALSO HAD A STENT PLACED IN THE SAPHENOUS VEIN GRAFT TO THE CIRCUMFLEX IN THE BODY OF THE VEIN GRAFT, AND ALSO A STENT IN SAPHENOUS VEIN GRAFT TO THE DIAGONAL BRANCH. 6. GERD. 7. HYPERTENSION. 8. END-STAGE RENAL DISEASE ON HEMODIALYSIS. 9. OBSTRUCTIVE SLEEP APNEA ON CPAP. 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 THE PATIENT UNABLE TO WALK. 11. HISTORY OF FAILED RENAL TRANSPLANT. 12. DIABETES MELLITUS TYPE 2 INSULIN REQUIRING. 13. ASTHMA/CHRONIC OBSTRUCTIVE PULMONARY DISEASE. RECOMMENDATION: The patient is tolerating the Toprol XL 25 mg p.o. q.12 hours. Continue atorvastatin, continue his Imdur, continue his Plavix and continue prednisone and respiratory treatment, continue his aspirin. Note that the patient is stable from a cardiac standpoint of view. The patient desires to follow up with me, hence, my cell number has been given to the patient. Note that the patient's medications have been reviewed, medications have been adjusted. TIME SPENT: Note 40 minutes spent on the patient with more than 50% of the time spent on direct patient care. We will sign off and follow the patient in the office. Discussed with the attending physician taking care of the patient. We will follow the patient as an outpatient. DICTATING PHYSICIAN: RENAY CLINTON M.D. [id number] REAL#: [id number] ID: [id number] JOB#: [id number] ACCT: [id number] cc: >
[2018-05-12] MEDS ORDERED: VANCOMYCIN HCL 1,000 MG in DEXTROSE 5%-WATER 250 ML IV SCH (18:00)
== END 2018-05-11 14:12 | disposition home health service (06) | DRG 391 ==
LOC: ER 11:40 → EH 14:13 → 3S 20:14
PROVIDERS: ADMIT Family Medicine; ATTEND Family Medicine
PROC: 5A1D70Z Performance of Urinary Filtration, Intermittent, Less than 6 Hours Per Day (ICD-10-PCS; principal; 2018-05-07)
PROC: 5A1D70Z Performance of Urinary Filtration, Intermittent, Less than 6 Hours Per Day (ICD-10-PCS; 2018-05-10)
DX: K21.9 Gastro-esophageal reflux disease without esophagitis (principal); N18.6 End stage renal disease; N39.0 Urinary tract infection, site not specified; T86.12 Kidney transplant failure; I13.2 Hypertensive heart and chronic kidney disease with heart failure and with stage 5 chronic kidney disease, or end stage renal disease; A04.71 Enterocolitis due to Clostridium difficile, recurrent; M86.171 Other acute osteomyelitis, right ankle and foot; G82.20 Paraplegia, unspecified; G65.0 Sequelae of Guillain-Barre syndrome; B96.89 Other specified bacterial agents as the cause of diseases classified elsewhere; E11.69 Type 2 diabetes mellitus with other specified complication; R31.9 Hematuria, unspecified; E11.22 Type 2 diabetes mellitus with diabetic chronic kidney disease; I50.9 Heart failure, unspecified; E78.5 Hyperlipidemia, unspecified; D63.1 Anemia in chronic kidney disease; N13.9 Obstructive and reflux uropathy, unspecified; E11.622 Type 2 diabetes mellitus with other skin ulcer; I25.10 Atherosclerotic heart disease of native coronary artery without angina pectoris; Z95.5 Presence of coronary angioplasty implant and graft; I25.2 Old myocardial infarction; Z95.1 Presence of aortocoronary bypass graft; G47.33 Obstructive sleep apnea (adult) (pediatric); Z99.2 Dependence on renal dialysis; Z79.4 Long term (current) use of insulin; L98.499 Non-pressure chronic ulcer of skin of other sites with unspecified severity; J44.9 Chronic obstructive pulmonary disease, unspecified; Z79.02 Long term (current) use of antithrombotics/antiplatelets; Z86.74 Personal history of sudden cardiac arrest; Z86.73 Personal history of transient ischemic attack (TIA), and cerebral infarction without residual deficits; Z99.3 Dependence on wheelchair; Z87.891 Personal history of nicotine dependence; Z95.828 Presence of other vascular implants and grafts
CPT/HCPCS: 36415; 71045; 80048; 80053; 81001; 82550; 82553; 82962; 84484; 85025; 87040; 87086; 87088; 87186; 87493; 93005; 93010; 99285; J0696; J1815; J3370; J7060; J7512

== ENCOUNTER 2018-06-21 15:06 | Inpatient (IN) | payer MEDICARE ==
[2018-06-21] MEDS ORDERED: LEVOFLOXACIN 500 MG/D5W RTU 500 MG/100 ML RTUPB IV SCH (16:35)
[2018-06-21] MEDS ORDERED: ACETAMINOPHEN 325 MG TABLET PO PRN (16:53)
[2018-06-21] MEDS ORDERED: INSULIN LISPRO 100 UNIT/ML 3 ML VIAL SUBCUT PRN (17:20)
[2018-06-21] MEDS ORDERED: GLUCAGON,HUMAN RECOMB 1 MG INJ IM PRN (17:20)
[2018-06-21] MEDS ORDERED: DEXTROSE 50%-WATER 25 GM/50 ML DISP.SYRIN IV PRN ×2 (17:20)
[2018-06-21] MEDS ORDERED: DEXTROSE 40% GEL 15 GM TUBE PO PRN ×2 (17:20)
[2018-06-21] MEDS ORDERED: MAG HYDROX/AL HYDROX/SIMETH SUSP 30 ML UDCUP PO PRN (17:21)
--- NOTE | 2018-06-21 17:32 | ER Document Report ---
ED GI/ - General Chief Complaint: Nausea/Vomiting Stated Complaint: NAUSEA AND VOMITING Time Seen by Provider: 06/21/18 16:26 Mode of Arrival: Stretcher Notes: Chief complaint: Urinary tract infection History of complain:( obtained from----patient) 62 years old male with a history of Guillain-Ventura, nonambulatory, end-stage renal disease on dialysis but still urinating about 2 cups a day. His urine was checked at dialysis, and he has been having resistant organism growing which include Klebsiella and E. coli. Therefore sent over here to be admitted. Denies any fever chills. Denies any other constitutional symptoms Onset: As above Duration: As above Severity: Moderate Quality:dull Context: As described above Exacerbating factor and relieving factors: None REVIEW OF SYSTEMS: CONSTITUTIONAL : Denies fever, chills, or sweats. Denies recent illness. EENT: Denies eye, ear, throat, or mouth pain or symptoms. Denies nasal or sinus congestion or discharge. Denies throat, tongue, or mouth swelling or difficulty swallowing. CARDIOVASCULAR: Denies chest pain. Denies palpitations or racing or irregular heart beat. Denies ankle edema. RESPIRATORY: Denies cough, cold, or chest congestion. Denies shortness of breath, difficulty breathing, or wheezing. GASTROINTESTINAL: Denies distention. Denies nausea, vomiting, or diarrhea. Denies blood in vomitus, stools, or per rectum. Denies black, tarry stools. Denies constipation. GENITOURINARY: Denies difficulty urinating, painful urination, ALL OTHER SYSTEMS REVIEWED AND NEGATIVE. PHYSICAL EXAMINATION: GENERAL: On recliner without showing any major discomfort HEAD: Atraumatic, normocephalic. EYES: Pupils equal round and reactive to light, extraocular movements intact, conjunctiva are normal. ENT: Nares patent, oropharynx clear without exudates. Moist mucous membranes. NECK: Normal range of motion, supple without lymphadenopathy LUNGS: Breath sounds clear to auscultation bilaterally and equal. No wheezes rales or rhonchi. HEART: Regular rate and rhythm without murmurs ABDOMEN: Soft, nontender, nondistended abdomen. No guarding, no rebound. No masses appreciated. Examination of genitals-deferred NEUROLOGICAL: Alert and oriented 3 PSYCH: Normal mood, normal affect. SKIN: Warm, Dry, normal turgor, no rashes or lesions noted. Dictation was performed using [employer] voice recognition software TRAVEL OUTSIDE OF THE [place] IN LAST 30 DAYS: No - HPI Notes: 06/21/18 17:31 Dictated - Related Data Allergies/Adverse Reactions: No Known Allergies Allergy (Verified 06/21/18 16:14) Past Medical History - General Information source: Patient - Social History Smoking Status: Never Smoker Chew tobacco use (# tins/day): No Frequency of alcohol use: None Drug Abuse: None Family History: Reviewed & Not Pertinent, CAD Patient has suicidal ideation: No Patient has homicidal ideation: No - Past Medical History Cardiac Medical History: Reports: Hx Congestive Heart Failure, Hx Coronary Artery Disease, Hx Heart Attack - QUADRUPLE BYPASS 2007, HEART MURMUR, Hx Hypercholesterolemia, Hx Hypertension Pulmonary Medical History: Reports: Hx Asthma, Hx COPD, Hx Pneumonia - HX. GUILLAIN-BARRE' SYNDROME, Hx Intubation, Hx Respiratory Failure, Hx Sleep Apnea - On C Pap Denies: Hx Bronchitis Neurological Medical History: Reports: Hx Cerebrovascular Accident - 2006. Denies: Hx Seizures Endocrine Medical History: Reports: Hx Diabetes Mellitus Type 1, Hx Diabetes Mellitus Type 2 Renal/ Medical History: Reports: Hx End Stage Renal Disease, Hx Hemodialysis. Denies: Hx Peritoneal Dialysis GI Medical History: Reports: Hx Gastroesophageal Reflux Disease. Denies: Hx Crohn's Disease, Hx Diverticulitis, Hx Ulcerative Colitis Musculoskeletal Medical History: Denies Hx Arthritis Psychiatric Medical History: Denies: Hx Depression - anxiety Infectious Medical History: Reports: Hx C-Diff Past Surgical History: Reports: Hx Cardiac Catheterization, Hx Cardiac Surgery - double bypass, Hx Coronary Artery Bypass Graft - Quadruple bypass 2007, Hx Kidney (Renal Surgery) - RENAL TRANSPLANT, Hx Vascular Surgery - left AV fistual , Other - History peritoneal dialysis catheter placement and removal - Immunizations Immunizations up to date: Yes Hx Diphtheria, Pertussis, Tetanus Vaccination: Yes - UTD Hx Pneumococcal Vaccination: 08/16/16 Review of Systems - Review of Systems Notes: Dictated Physical Exam - Vital signs Vitals: Temp Pulse Resp BP Pulse Ox 98.3 F 79 18 108/45 L 100 06/21/18 15:20 06/21/18 15:20 06/21/18 15:20 06/21/18 15:20 06/21/18 15:20 - Notes Notes: Dictated Course - Re-evaluation Re-evalutation: 06/21/18 17:31 Case was discussed with Dr. Montenegro, admitted admitted - Vital Signs Vital signs: Temp Pulse Resp BP Pulse Ox 98.3 F 79 18 108/45 L 100 06/21/18 15:20 06/21/18 15:20 06/21/18 15:20 06/21/18 15:20 06/21/18 15:20 Discharge - Discharge Clinical Impression: Antibiotic-resistant bacterial infection UTI (urinary tract infection) Qualifiers: Urinary tract infection type: site unspecified Hematuria presence: with hematuria Qualified Code(s): N39.0 - Urinary tract infection, site not specified Condition: Fair Admitting Provider: [facility] Unit Admitted: Telemetry Referrals: KEEGAN MONTENEGRO MD [Primary Care Provider] - Follow up as needed
--- NOTE | 2018-06-21 17:53 | PDOC H&P ---
History of Present Illness Admission Date/PCP: KEEGAN MONTENEGRO MD History of Present Illness: KATHRYN HURLEY is a 62 year old male This is a 62-year-old male with the history of the renals transplants status post rejected status post currently hemodialysis status post hypertensionsAnd type 2 diabetes mellitus history of the coronary artery disease status post stent placement with recent cardiac arrest history of the Recurrent urinary tract infections seen by the urology and infectious disease at [place] have a urine culture was done in the nephrology office yesterday and positive for ESBL and E. coli and the patient was complaining some burning sensations and patient was at this point sent to the emergency department for IV antibiotic Patient also habits neurogenic bladder most likely unable to empty the bladder and obstructive uropathy seen by the urology as outpatient Patient's currently denied any chest pain denied any shortness of the breath Denied any abdominal pain no nausea no vomiting Past Medical History Cardiac Medical History: Reports: Congestive Heart Failure, Coronary Artery Disease, Myocardial Infarction - QUADRUPLE BYPASS 2007, HEART MURMUR, Hyperlipidema, Hypertension Pulmonary Medical History: Reports: Asthma, Chronic Obstructive Pulmonary Disease (COPD), Intubation, Pneumonia - HX. GUILLAIN-BARRE' SYNDROME, Respiratory Failure, Sleep Apnea - On C Pap Denies: Bronchitis Neurological Medical History: Denies: Seizures Endocrine Medical History: Reports: Diabetes Mellitus Type 1, Diabetes Mellitus Type 2 Renal/ Medical History: Reports: End Stage Renal Disease GI Medical History: Reports: Gastroesophageal Reflux Disease Denies: Crohn's Disease, Diverticulitis, Ulcerative Colitis Musculoskeltal Medical History: Denies: Arthritis Psychiatric Medical History: Denies: Depression - anxiety Hematology: Reports: Anemia Infectious Medical History: Reports: Clostridium Difficile Past Surgical History Past Surgical History: Reports: Cardiac Catheterization, Coronary Artery Bypass Graft - Quadruple bypass 2007, Vascular Surgery - left AV fistual, Other - History peritoneal dialysis catheter placement and removal Social History Smoking Status: Never Smoker Frequency of Alcohol Use: None Hx Recreational Drug Use: Yes Drugs: None Hx Prescription Drug Abuse: No Family History Family History: Reviewed & Not Pertinent, CAD Parental Family History Reviewed: Yes Children Family History Reviewed: Yes Sibling(s) Family History Reviewed.: Yes Medication/Allergy Home Medications: Atorvastatin Calcium [Lipitor 10 mg Tablet] 10 mg PO BID 02/24/18 Isosorbide Mononitrate [Isosorbide Mononitrate ER] 30 mg PO QAM 02/24/18 Lisinopril [Prinivil 5 mg Tablet] 5 mg PO QHS 02/24/18 Prednisone [Deltasone 5 mg Tablet] 5 mg PO QAM 02/24/18 Tamsulosin HCl [Flomax 0.4 mg Cap.sr] 0.4 mg PO QAM 02/24/18 Ascorbic Acid [Vitamin C] 250 mg PO QAM 05/07/18 Aspirin [Aspirin 325 mg Tablet] 325 mg PO DAILY 05/07/18 Clopidogrel Bisulfate [Plavix 75 mg Tablet] 75 mg PO QAM 05/07/18 Ergocalciferol (Vitamin D2) [Vitamin D2] 50,000 unit PO TH@0800 05/07/18 Insulin Aspart [Novolog Flexpen] 0 unit SUBCUT .SLD SCALE 05/07/18 Insulin Aspart [Novolog Flexpen] 4 unit SUBCUT .MEALS 05/07/18 Insulin Glargine,Hum.rec.anlog [Lantus Solostar] 3 unit SQ QHS 05/07/18 Ranitidine HCl [Zantac 150 mg Tablet] 150 mg PO BID #60 tablet 05/11/18 Vancomycin HCl [Vancocin Inj 500 mg Vial] 125 mg PO Q6 #40 vial 05/11/18 Allergies/Adverse Reactions: No Known Allergies Allergy (Verified 06/21/18 16:14) Physical Exam Vital Signs: Temp Pulse Resp BP Pulse Ox 98.3 F 79 18 108/45 L 100 06/21/18 15:20 06/21/18 15:20 06/21/18 15:20 06/21/18 15:20 06/21/18 15:20 Intake & Output 06/20/18 06/21/18 06/22/18 06:59 06:59 06:59 Weight 65.771 kg General appearance: PRESENT: no acute distress, well-developed, well-nourished Head exam: PRESENT: atraumatic, normocephalic Eye exam: PRESENT: conjunctiva pink, EOMI, PERRLA. ABSENT: scleral icterus Ear exam: PRESENT: normal external ear exam Mouth exam: PRESENT: moist, tongue midline Neck exam: PRESENT: full ROM. ABSENT: carotid bruit, JVD, lymphadenopathy, thyromegaly Respiratory exam: PRESENT: clear to auscultation jolie Cardiovascular exam: PRESENT: RRR. ABSENT: diastolic murmur, rubs, systolic murmur Pulses: PRESENT: normal dorsalis pedis pul, +2 pedal pulses bilateral Vascular exam: PRESENT: normal capillary refill GI/Abdominal exam: PRESENT: normal bowel sounds, soft. ABSENT: distended, guarding, mass, organolmegaly, rebound, tenderness Rectal exam: PRESENT: deferred Neurological exam: PRESENT: alert, awake, oriented to person, oriented to place , oriented to time, oriented to situation, CN II-XII grossly intact. ABSENT: motor sensory deficit Psychiatric exam: PRESENT: appropriate affect, normal mood. ABSENT: homicidal ideation, suicidal ideation Skin exam: PRESENT: dry, intact, warm. ABSENT: cyanosis, rash Assessment & Plan - Diagnosis (1) UTI due to extended-spectrum beta lactamase (ESBL) producing Escherichia coli Is this a current diagnosis for this admission?: Yes Plan: Start the patient on entepenam which is sensitive to the organisms We will consult ID for further evaluations while patient does not have any fever Still having some neurogenic bladder will get the in and out catheter (2) Chronic kidney disease Qualifiers: Chronic kidney disease stage: on chronic dialysis Qualified Code(s): N18.6 - End stage renal disease; Z99.2 - Dependence on renal dialysis; Z99.2 - Dependence on renal dialysis; Z99.2 - Dependence on renal dialysis; Z99.2 - Dependence on renal dialysis Is this a current diagnosis for this admission?: Yes Plan: Consult to nephrology for further evaluations (3) Coronary artery disease Qualifiers: Coronary Disease-Associated Artery/Lesion type: unspecified vessel or lesion type Is this a current diagnosis for this admission?: Yes Plan: Currently all stable (4) Diabetes mellitus, type II Qualifiers: Diabetes mellitus acid loader insulin use: with intermediate use Diabetes mellitus complication status: with other specified complication Qualified Code (s): E11.69 - Type 2 diabetes mellitus with other specified complication; Z79.4 - [facility] (current) use of insulin; Z79.4 - [facility] (current) use of insulin ; Z79.4 - [facility] (current) use of insulin; Z79.4 - [facility] (current) use of insulin Is this a current diagnosis for this admission?: Yes (5) ESRD on hemodialysis Is this a current diagnosis for this admission?: Yes (6) Gastroesophageal reflux disease Qualifiers: Esophagitis presence: esophagitis presence not specified Qualified Code(s) : K21.9 - Gastro-esophageal reflux disease without esophagitis Is this a current diagnosis for this admission?: Yes Plan: Currently on stable (7) History of Clostridium difficile colitis Is this a current diagnosis for this admission?: Yes Plan: Patient have recurrent C. difficile currently denied any symptoms (8) History of kidney transplant Is this a current diagnosis for this admission?: Yes (9) Hyperlipidemia Qualifiers: Hyperlipidemia type: unspecified Qualified Code(s): E78.5 - Hyperlipidemia , unspecified Is this a current diagnosis for this admission?: Yes (10) Hypertension Qualifiers: Hypertension type: essential hypertension Qualified Code(s): I10 - Essential (primary) hypertension Is this a current diagnosis for this admission?: Yes (11) Leg ulcer Qualifiers: Laterality: unspecified laterality Is this a current diagnosis for this admission?: Yes Plan: Continuously dressing change patient no history of osteomyelitis (12) Obstructive uropathy Is this a current diagnosis for this admission?: Yes Plan: We consulted the urology (13) Osteomyelitis of foot, acute Is this a current diagnosis for this admission?: Yes (14) Sleep apnea syndrome Qualifiers: Sleep apnea type: unspecified type Is this a current diagnosis for this admission?: Yes Plan: use cpap (15) Cerebrovascular disease Is this a current diagnosis for this admission?: Yes (16) Hematuria Qualifiers: Hematuria type: unspecified type Qualified Code(s): R31.9 - Hematuria, unspecified Is this a current diagnosis for this admission?: Yes Plan: order ct scan - Time Time Spent: 30 to 50 Minutes Medications reviewed and adjusted accordingly: Yes Anticipated discharge: Home Within: Other - Inpatient Certification Medical Necessity: Need Close Monitoring Due to Risk of Patient Decompensation, Need for IV Antibiotics 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
--- NOTE | 2018-06-21 17:53 | PDOC H&P ---
History of Present Illness Admission Date/PCP: KEEGAN MONTENEGRO MD Patient complains of: Abnormal labs History of Present Illness: KATHRYN HURLEY is a 62 year old male This is a 62-year-old male with the history of the renals transplants status post rejected status post currently hemodialysis status post hypertensionsAnd type 2 diabetes mellitus history of the coronary artery disease status post stent placement with recent cardiac arrest history of the Recurrent urinary tract infections seen by the urology and infectious disease at [place] have a urine culture was done in the nephrology office yesterday and positive for ESBL and E. coli and the patient was complaining some burning sensations and patient was at this point sent to the emergency department for IV antibiotic Patient also habits neurogenic bladder most likely unable to empty the bladder and obstructive uropathy seen by the urology as outpatient Patient's currently denied any chest pain denied any shortness of the breath Denied any abdominal pain no nausea no vomiting Past Medical History Cardiac Medical History: Reports: Congestive Heart Failure, Coronary Artery Disease, Myocardial Infarction - QUADRUPLE BYPASS 2007, HEART MURMUR, Hyperlipidema, Hypertension Pulmonary Medical History: Reports: Asthma, Chronic Obstructive Pulmonary Disease (COPD), Intubation, Pneumonia - HX. GUILLAIN-BARRE' SYNDROME, Respiratory Failure, Sleep Apnea - On C Pap Denies: Bronchitis Neurological Medical History: Denies: Seizures Endocrine Medical History: Reports: Diabetes Mellitus Type 1, Diabetes Mellitus Type 2 Renal/ Medical History: Reports: End Stage Renal Disease GI Medical History: Reports: Gastroesophageal Reflux Disease Denies: Crohn's Disease, Diverticulitis, Ulcerative Colitis Musculoskeltal Medical History: Denies: Arthritis Psychiatric Medical History: Denies: Depression - anxiety Hematology: Reports: Anemia Infectious Medical History: Reports: Clostridium Difficile Past Surgical History Past Surgical History: Reports: Cardiac Catheterization, Coronary Artery Bypass Graft - Quadruple bypass 2007, Vascular Surgery - left AV fistual, Other - History peritoneal dialysis catheter placement and removal Social History Information Source: Patient, Relative Smoking Status: Never Smoker Frequency of Alcohol Use: None Hx Recreational Drug Use: Yes Drugs: None Hx Prescription Drug Abuse: No Family History Family History: Reviewed & Not Pertinent, CAD Parental Family History Reviewed: Yes Children Family History Reviewed: Yes Sibling(s) Family History Reviewed.: Yes Medication/Allergy Home Medications: Atorvastatin Calcium [Lipitor 10 mg Tablet] 10 mg PO BID 02/24/18 Isosorbide Mononitrate [Isosorbide Mononitrate ER] 30 mg PO QAM 02/24/18 Lisinopril [Prinivil 5 mg Tablet] 5 mg PO QHS 02/24/18 Prednisone [Deltasone 5 mg Tablet] 5 mg PO QAM 02/24/18 Tamsulosin HCl [Flomax 0.4 mg Cap.sr] 0.4 mg PO QAM 02/24/18 Ascorbic Acid [Vitamin C] 250 mg PO QAM 05/07/18 Aspirin [Aspirin 325 mg Tablet] 325 mg PO DAILY 05/07/18 Clopidogrel Bisulfate [Plavix 75 mg Tablet] 75 mg PO QAM 05/07/18 Ergocalciferol (Vitamin D2) [Vitamin D2] 50,000 unit PO TH@0800 05/07/18 Insulin Aspart [Novolog Flexpen] 0 unit SUBCUT .SLD SCALE 05/07/18 Insulin Aspart [Novolog Flexpen] 4 unit SUBCUT .MEALS 05/07/18 Insulin Glargine,Hum.rec.anlog [Lantus Solostar] 3 unit SQ QHS 05/07/18 Ranitidine HCl [Zantac 150 mg Tablet] 150 mg PO BID #60 tablet 05/11/18 Vancomycin HCl [Vancocin Inj 500 mg Vial] 125 mg PO Q6 #40 vial 05/11/18 Allergies/Adverse Reactions: No Known Allergies Allergy (Verified 06/21/18 16:14) Review of Systems Constitutional: ABSENT: chills, fever(s), headache(s), weight gain, weight loss Eyes: ABSENT: visual disturbances Ears: ABSENT: hearing changes Cardiovascular: ABSENT: chest pain, dyspnea on exertion, edema, orthropnea, palpitations Respiratory: ABSENT: cough, hemoptysis Gastrointestinal: ABSENT: abdominal pain, constipation, diarrhea, hematemesis, hematochezia, nausea, vomiting Genitourinary: ABSENT: dysuria, hematuria Musculoskeletal: ABSENT: joint swelling Integumentary: ABSENT: rash, wounds Neurological: ABSENT: abnormal gait, abnormal speech, confusion, dizziness, focal weakness, syncope Psychiatric: ABSENT: anxiety, depression, homidical ideation, suicidal ideation Endocrine: ABSENT: cold intolerance, heat intolerance, menstrual abnormalities, polydipsia, polyuria Hematologic/Lymphatic: ABSENT: easy bleeding, easy bruising, lymphadenopathy Physical Exam Vital Signs: Temp Pulse Resp BP Pulse Ox 98.3 F 79 18 108/45 L 100 06/21/18 15:20 06/21/18 15:20 06/21/18 15:20 06/21/18 15:20 06/21/18 15:20 Intake & Output 06/20/18 06/21/18 06/22/18 06:59 06:59 06:59 Weight 65.771 kg General appearance: PRESENT: no acute distress, well-developed, well-nourished Head exam: PRESENT: atraumatic, normocephalic Eye exam: PRESENT: conjunctiva pink, EOMI, PERRLA. ABSENT: scleral icterus Ear exam: PRESENT: normal external ear exam Mouth exam: PRESENT: moist, tongue midline Neck exam: PRESENT: full ROM. ABSENT: carotid bruit, JVD, lymphadenopathy, thyromegaly Respiratory exam: PRESENT: clear to auscultation jolie Cardiovascular exam: PRESENT: RRR. ABSENT: diastolic murmur, rubs, systolic murmur Pulses: PRESENT: normal dorsalis pedis pul, +2 pedal pulses bilateral Vascular exam: PRESENT: normal capillary refill GI/Abdominal exam: PRESENT: normal bowel sounds, soft. ABSENT: distended, guarding, mass, organolmegaly, rebound, tenderness Rectal exam: PRESENT: deferred Extremities exam: ABSENT: pedal edema Neurological exam: PRESENT: alert, awake, oriented to person, oriented to place , oriented to time, oriented to situation, CN II-XII grossly intact. ABSENT: motor sensory deficit Psychiatric exam: PRESENT: appropriate affect, normal mood. ABSENT: homicidal ideation, suicidal ideation Skin exam: PRESENT: dry, intact, warm. ABSENT: cyanosis, rash Assessment & Plan - Diagnosis (1) UTI due to extended-spectrum beta lactamase (ESBL) producing Escherichia coli Is this a current diagnosis for this admission?: Yes Plan: Start the patient on entepenam which is sensitive to the organisms We will consult ID for further evaluations while patient does not have any fever Still having some neurogenic bladder will get the in and out catheter (2) Chronic kidney disease Qualifiers: Chronic kidney disease stage: on chronic dialysis Qualified Code(s): N18.6 - End stage renal disease; Z99.2 - Dependence on renal dialysis; Z99.2 - Dependence on renal dialysis; Z99.2 - Dependence on renal dialysis; Z99.2 - Dependence on renal dialysis Is this a current diagnosis for this admission?: Yes Plan: Consult to nephrology for further evaluations (3) Coronary artery disease Qualifiers: Coronary Disease-Associated Artery/Lesion type: unspecified vessel or lesion type Is this a current diagnosis for this admission?: Yes Plan: Currently all stable (4) Diabetes mellitus, type II Qualifiers: Diabetes mellitus chair maker insulin use: with chcf use Diabetes mellitus complication status: with other specified complication Qualified Code (s): E11.69 - Type 2 diabetes mellitus with other specified complication; Z79.4 - deck cadet (current) use of insulin; Z79.4 - prison (current) use of insulin ; Z79.4 - deck cadet (current) use of insulin; Z79.4 - prison (current) use of insulin Is this a current diagnosis for this admission?: Yes (5) ESRD on hemodialysis Is this a current diagnosis for this admission?: Yes (6) Gastroesophageal reflux disease Qualifiers: Esophagitis presence: esophagitis presence not specified Qualified Code(s) : K21.9 - Gastro-esophageal reflux disease without esophagitis Is this a current diagnosis for this admission?: Yes Plan: Currently on stable (7) History of Clostridium difficile colitis Is this a current diagnosis for this admission?: Yes Plan: Patient have recurrent C. difficile currently denied any symptoms (8) History of kidney transplant Is this a current diagnosis for this admission?: Yes (9) Hyperlipidemia Qualifiers: Hyperlipidemia type: unspecified Qualified Code(s): E78.5 - Hyperlipidemia , unspecified Is this a current diagnosis for this admission?: Yes (10) Hypertension Qualifiers: Hypertension type: essential hypertension Qualified Code(s): I10 - Essential (primary) hypertension Is this a current diagnosis for this admission?: Yes (11) Leg ulcer Qualifiers: Laterality: unspecified laterality Is this a current diagnosis for this admission?: Yes Plan: Continuously dressing change patient no history of osteomyelitis (12) Obstructive uropathy Is this a current diagnosis for this admission?: Yes Plan: We consulted the urology (13) Osteomyelitis of foot, acute Is this a current diagnosis for this admission?: Yes (14) Sleep apnea syndrome Qualifiers: Sleep apnea type: unspecified type Is this a current diagnosis for this admission?: Yes (15) Cerebrovascular disease Is this a current diagnosis for this admission?: Yes - Time Time Spent: 30 to 50 Minutes Medications reviewed and adjusted accordingly: Yes Anticipated discharge: Home Within: Other - Inpatient Certification Medical Necessity: Need for IV Antibiotics Post Hospital Care: D/C Sourcer Documentation - Plan Summary Plan Summary: Admit the patient in a telemetry bed as per discussed with the nephrology Start the patient on IV antibiotic Consult ID with the recurrent infections and a history of the recurrent C. difficile Patients need urology evaluations and seen by the several urology including the [facility] in the [place] Discussed with the patient and the family regarding the patient's current conditions
[2018-06-21] MEDS ORDERED: ERTAPENEM SODIUM 1 GM in NORMAL SALINE 50 ML IV SCH ×2 (18:00→22:00)
--- NOTE | 2018-06-21 18:50 | RADIOLOGY REPORT (SQ) ---
EXAM DESCRIPTION: CT ABD/PELVIS NO ORAL OR IV COMPLETED DATE/TIME: 06/21/2018 6:36 pm REASON FOR STUDY: stone COMPARISON: 02/24/2018 TECHNIQUE: CT scan of the abdomen and pelvis performed without intravenous or oral contrast. Images reviewed with lung, soft tissue, and bone windows. Reconstructed coronal and sagittal MPR images revi ewed. All images stored on PACS. All CT scanners at this facility use dose modulation, iterative reconstruction, and/or weight based d osing when appropriate to reduce radiation dose to as low as reasonably achievable (ALARA). [facility]: Dose Right [facility]: CareDose [facility]: Dose Right [facility]: Teradose 4D [facility]: Smart [employer] RADIATION DOSE: CT Rad equipment meets quality standard of care and radiation dose reduction techniq ues were employed. CTDIvol: 5.3 mGy. DLP: 276 mGy-cm.mGy. LIMITATIONS: None. FINDINGS: LOWER CHEST: No significant findings. No nodules or infiltrates. NON-CONTRASTED LIVER, SPLEEN, ADRENALS: Evaluation limited by lack of IV contrast. No identified sign ificant masses. PANCREAS: No masses. No peripancreatic inflammatory changes. GALLBLADDER: No identified stones by CT criteria. No inflammatory changes to suggest cholecystitis. RIGHT KIDNEY AND URETER: Atrophy. Nonobstructing intrarenal calculi. LEFT KIDNEY AND URETER: Atrophy. Nonobstructing intrarenal calculi. TRANSPLANTED KIDNEY AND URETER: No masses, no significant calcifications. No hydronephrosis. AORTA AND RETROPERITONEUM: Atherosclerosis. No aneurysm. Atherosclerosis involves the SMA and renal arteries and the celiac and splenic arteries. BOWEL AND PERITONEAL CAVITY: No obvious masses or inflammatory changes. No free fluid. APPENDIX: Not identified. PELVIS, BLADDER, AND ABDOMINAL WALL:No abnormal masses. No free fluid. Bladder normal. BONES: Osteoporosis. No masses. OTHER: No other significant finding. IMPRESSION: 1. Renal atrophy with transplanted kidney. 2. Extensive atherosclerosis. COMMENT: Quality ID # [id number]: Final reports with documentation of one or more dose reduction techniques (e.g., Automated exposure control, adjustment of the mA and/or kV according to patient size, use of iterative reconstruction technique) TECHNICAL DOCUMENTATION: JOB ID: [id number] [employer]- All Rights Reserved Reading location - IP/workstation name: [email or web address]
[2018-06-21 19:32] LABS: ABSOLUTE EOSINOPHILS # (AUTO) 0.2 10^3/uL (0.0-0.6); ABSOLUTE LYMPHOCYTES (AUTO) 3.4 10^3/uL (0.5-4.7); ABSOLUTE MONOCYTES (AUTO) 0.8 10^3/uL (0.1-1.4); ABSOLUTE NEUT (AUTO) 4.8 10^3/uL (1.7-8.2); BASOPHILS % (AUTO) 0.5 % (0-2); EOSINOPHILS % (AUTO) 2.4 % (0-6); HEMOGLOBIN 12.7 g/dL (13.5-17.0); LYMPHOCYTES % (AUTO) 37.1 % (13-45); MEAN CORPUSCULAR HEMOGLOBIN 30.2 pg (27.0-33.4); MEAN CORPUSCULAR HGB CONC 33.5 g/dL (32.0-36.0); MEAN CORPUSCULAR VOLUME 90 fl (80-97); MONOCYTES % (AUTO) 8.6 % (3-13); PLATELET COUNT 229 10^3/uL (150-450); RED BLOOD COUNT 4.22 10^6/uL (4.35-5.55); SEGMENTED NEUTROPHILS % (AUTO) 51.4 % (42-78); TOTAL CELLS COUNTED % (AUTO) 100 %; WHITE BLOOD COUNT 9.3 10^3/uL (4.0-10.5)
[2018-06-21 19:40] LABS: ALANINE AMINOTRANSFERASE 50 U/L (21-72); ALBUMIN 3.6 g/dL (3.5-5.0); ALKALINE PHOSPHATASE 185 U/L (38-126); ANION GAP 17 (5-19); ASPARTATE AMINO TRANSFERASE 49 U/L (17-59); BILIRUBIN,DIRECT 0.4 mg/dL (0.0-0.4); BILIRUBIN,TOTAL 0.5 mg/dL (0.2-1.3); BLOOD UREA NITROGEN 26 mg/dL (7-20); CALCIUM 8.7 mg/dL (8.4-10.2); CARBON DIOXIDE 22 mmol/L (22-30); CHLORIDE 102 mmol/L (98-107); GLUCOSE 129 mg/dL (75-110); POTASSIUM 4.7 mmol/L (3.6-5.0); SODIUM 140.8 mmol/L (137-145); TOTAL PROTEIN 8.2 g/dL (6.3-8.2)
[2018-06-21] MEDS ORDERED: LEVOFLOXACIN 500 MG/D5W RTU 500 MG/100 ML RTUPB IV ONE (23:00)
[2018-06-21] MEDS: HEPARIN SOD (PORCINE) 5,000 UNIT/ML 1 ML SYRINGE SUBCUT SCH (23:01)
[2018-06-21] MEDS: LACTOBACILLUS ACIDOPHILUS 250 MG TAB PO SCH (23:08)
[2018-06-21] MEDS: LISINOPRIL 5 MG TABLET PO SCH (23:13)
[2018-06-21] MEDS: FAMOTIDINE 20 MG TABLET PO SCH (23:13)
[2018-06-22] MEDS: HEPARIN SOD (PORCINE) 5,000 UNIT/ML 1 ML SYRINGE SUBCUT SCH ×3 (06:09→21:33)
--- NOTE | 2018-06-22 08:57 | PDOC PROGRESS REPORT ---
Subjective Progress Note for:: 06/22/18 Subjective:: Patient is currently doing well Patient CT scan of the abdomen and pelvis no other acute findings Patient have an appointment to see a urology at [place] through the [place] Patient's denied any fever no chills no abdominal pain Reason For Visit: INFECTION OF DRUG-RESISTANT BACTERIA, URINARY Physical Exam Vital Signs: Temp Pulse Resp BP Pulse Ox 97.5 F 79 18 116/60 100 06/22/18 03:00 06/21/18 22:07 06/22/18 02:00 06/22/18 02:00 06/22/18 02:00 Intake & Output 06/21/18 06/22/18 06/23/18 06:59 06:59 06:59 Intake Total 150 Balance 150 General appearance: PRESENT: no acute distress, well-developed, well-nourished Head exam: PRESENT: atraumatic, normocephalic Eye exam: PRESENT: conjunctiva pink, EOMI, PERRLA. ABSENT: scleral icterus Ear exam: PRESENT: normal external ear exam Mouth exam: PRESENT: moist, tongue midline Neck exam: PRESENT: full ROM. ABSENT: carotid bruit, JVD, lymphadenopathy, thyromegaly Respiratory exam: PRESENT: clear to auscultation jolie Cardiovascular exam: PRESENT: RRR. ABSENT: diastolic murmur, rubs, systolic murmur Pulses: PRESENT: normal dorsalis pedis pul, +2 pedal pulses bilateral Vascular exam: PRESENT: normal capillary refill GI/Abdominal exam: PRESENT: normal bowel sounds, soft. ABSENT: distended, guarding, mass, organolmegaly, rebound, tenderness Rectal exam: PRESENT: deferred Extremities exam: ABSENT: pedal edema Neurological exam: PRESENT: alert, awake, oriented to person, oriented to place , oriented to time, oriented to situation. ABSENT: motor sensory deficit Psychiatric exam: PRESENT: appropriate affect, normal mood. ABSENT: homicidal ideation, suicidal ideation Skin exam: PRESENT: dry, intact, warm. ABSENT: cyanosis, rash Results Laboratory Results: 06/21/18 19:09 06/21/18 19:09 06/21/18 06/21/18 19:09 19:09 WBC 9.3 RBC 4.22 L Hgb 12.7 L Hct 38.0 MCV 90 MCH 30.2 MCHC 33.5 RDW 16.0 H Plt Count 229 Seg Neutrophils % 51.4 Lymphocytes % 37.1 Monocytes % 8.6 Eosinophils % 2.4 Basophils % 0.5 Absolute Neutrophils 4.8 Absolute Lymphocytes 3.4 Absolute Monocytes 0.8 Absolute Eosinophils 0.2 Absolute Basophils 0.0 Sodium 140.8 Potassium 4.7 Chloride 102 Carbon Dioxide 22 Anion Gap 17 BUN 26 H Creatinine 3.29 H Est GFR ( Amer) 23 L Est GFR (Non-Af Amer) 19 L Glucose 129 H Calcium 8.7 Total Bilirubin 0.5 AST 49 ALT 50 Alkaline Phosphatase 185 H Total Protein 8.2 Albumin 3.6 Impressions: Abdomen/Pelvis CT 06/21/18 17:48 IMPRESSION: 1. Renal atrophy with transplanted kidney. 2. Extensive atherosclerosis. Assessment & Plan - Diagnosis (1) UTI due to extended-spectrum beta lactamase (ESBL) producing Escherichia coli Is this a current diagnosis for this admission?: Yes Plan: Start the patient on entepenam which is sensitive to the organisms We will consult ID for further evaluations while patient does not have any fever Still having some neurogenic bladder will get the in and out catheter (2) Chronic kidney disease Qualifiers: Chronic kidney disease stage: on chronic dialysis Qualified Code(s): N18.6 - End stage renal disease; Z99.2 - Dependence on renal dialysis; Z99.2 - Dependence on renal dialysis; Z99.2 - Dependence on renal dialysis; Z99.2 - Dependence on renal dialysis Is this a current diagnosis for this admission?: Yes Plan: Consult to nephrology for further evaluations (3) Coronary artery disease Qualifiers: Coronary Disease-Associated Artery/Lesion type: unspecified vessel or lesion type Is this a current diagnosis for this admission?: Yes Plan: Currently all stable (4) Diabetes mellitus, type II Qualifiers: Diabetes mellitus assisted insulin use: with assisted use Diabetes mellitus complication status: with other specified complication Qualified Code (s): E11.69 - Type 2 diabetes mellitus with other specified complication; Z79.4 - penitentiary (current) use of insulin; Z79.4 - penitentiary (current) use of insulin ; Z79.4 - tank terminal gauger (current) use of insulin; Z79.4 - tank terminal gauger (current) use of insulin Is this a current diagnosis for this admission?: Yes (5) ESRD on hemodialysis Is this a current diagnosis for this admission?: Yes (6) Gastroesophageal reflux disease Qualifiers: Esophagitis presence: esophagitis presence not specified Qualified Code(s) : K21.9 - Gastro-esophageal reflux disease without esophagitis Is this a current diagnosis for this admission?: Yes (7) History of Clostridium difficile colitis Is this a current diagnosis for this admission?: Yes Plan: Patient have recurrent C. difficile currently denied any symptoms (8) History of kidney transplant Is this a current diagnosis for this admission?: Yes (9) Hyperlipidemia Qualifiers: Hyperlipidemia type: unspecified Qualified Code(s): E78.5 - Hyperlipidemia , unspecified Is this a current diagnosis for this admission?: Yes (10) Hypertension Qualifiers: Hypertension type: essential hypertension Qualified Code(s): I10 - Essential (primary) hypertension Is this a current diagnosis for this admission?: Yes (11) Leg ulcer Qualifiers: Laterality: unspecified laterality Is this a current diagnosis for this admission?: Yes Plan: Continuously dressing change patient no history of osteomyelitis (12) Obstructive uropathy Is this a current diagnosis for this admission?: Yes Plan: We consulted the urology (13) Osteomyelitis of foot, acute Is this a current diagnosis for this admission?: Yes (14) Sleep apnea syndrome Qualifiers: Sleep apnea type: unspecified type Is this a current diagnosis for this admission?: Yes Plan: use cpap (15) Cerebrovascular disease Is this a current diagnosis for this admission?: Yes - Time Time Spent with patient: 15-24 minutes Medications reviewed and adjusted accordingly: Yes Anticipated discharge: Home Within: within 24 hours - Inpatient Certification Medical Necessity: Need for IV Antibiotics Post Hospital Care: D/C [employer] Documentation - Plan Summary Plan Summary: Continuous IV antibiotics will hopefully arrange outpatient IV antibiotics for 1 week
[2018-06-22] MEDS ORDERED: (PENDING PHARMACY ID) (Ranitidine Hcl [Zantac 150 Mg Tablet] 150 MG) PO SCH (10:00)
[2018-06-22] MEDS ORDERED: (PENDING PHARMACY ID) (Ascorbic Acid [Vitamin C] 250 MG) PO SCH (10:00)
[2018-06-22] MEDS: FAMOTIDINE 20 MG TABLET PO SCH ×2 (10:54→21:32)
[2018-06-22] MEDS: PREDNISONE 5 MG TABLET PO SCH (10:55)
[2018-06-22] MEDS: TAMSULOSIN HCL 0.4 MG CAP.SR.24H PO SCH (10:55)
[2018-06-22] MEDS: ISOSORBIDE MONONITRATE 30 MG TAB.ER.24H PO SCH (10:55)
[2018-06-22] MEDS: ATORVASTATIN CALCIUM 10 MG TABLET PO SCH ×2 (10:55→17:27)
[2018-06-22] MEDS: CLOPIDOGREL BISULFATE 75 MG TABLET PO SCH (10:55)
[2018-06-22] MEDS: ASPIRIN 81 MG TABLET, ENT COATED PO SCH (10:56)
[2018-06-22] MEDS: ASCORBIC ACID 500 MG TABLET PO SCH (10:56)
--- NOTE | 2018-06-22 14:08 | PDOC CONSULTATION ---
Consultation Consult Date: 06/22/18 Consult reason:: esrd History of Present Illness Admission Date/PCP: 06/21/18 18:00 KEEGAN MONTENEGRO MD History of Present Illness: KATHRYN HURLEY is a 62 year old male with the history of the renal transplant status post rejected status, currently on hemodialysis, guillain barre, hypertensions, type 2 diabetes mellitus, coronary artery disease status post stent placement with recent cardiac arrest and recurrent urinary tract infections of ESBL. He was seen by me yesterday at the dialysis unit. His urine culture came back showing ESBL and E. coli. He did complain of burning urination and at that time he was told to go the hospital for further treatment of the UTI. He is scheduled to visit a urologist in [place], but this was initially scheduled due to painless hematuria. He since being admitted he has been placed on IV ertapenem and levofloxicin. Patient's currently denied any chest pain denied any shortness of the breath Denied any abdominal pain, flank pain, fevers, chills, nausea or vomiting. Past Medical History Cardiac Medical History: Reports: CHF-Diastolic, Coronary Artery Disease, Hyperlipidemia, Hypertension-primary, Myocardial Infarction - QUADRUPLE BYPASS 2007, HEART MURMUR Pulmonary Medical History: Reports: Asthma, Chronic Obstructive Pulmonary Disease (COPD), Intubation, Pneumonia - HX. GUILLAIN-BARRE' SYNDROME, Respiratory Failure, Sleep Apnea - On C Pap Denies: Bronchitis Neurological Medical History: Denies: Seizures Endocrine Medical History: Reports: Diabetes Mellitus Type 1, Diabetes Mellitus Type 2 Complications of Diabetes: Reports: Nephropathy Renal/ Medical History: Reports: End Stage Renal Disease GI Medical History: Reports: Gastroesophageal Reflux Disease Denies: Crohn's Disease, Diverticulitis, Ulcerative Colitis Musculoskeltal Medical History: Denies: Arthritis Psychiatric Medical History: Denies: Depression - anxiety Infectious Medical History: Reports: Clostridium Difficile Past Surgical History Past Surgical History: Reports: Cardiac Catheterization, Coronary Artery Bypass Graft - Quadruple bypass 2007, Vascular Surgery - left AV fistual, Other - History peritoneal dialysis catheter placement and removal Social History Smoking Status: Never Smoker Frequency of Alcohol Use: None Hx Recreational Drug Use: Yes Drugs: None Hx Prescription Drug Abuse: No Family History Parental Family History Reviewed: No Children Family History Reviewed: NA Sibling(s) Family History Reviewed.: NA Medication/Allergy Home Medications: Ascorbic Acid [Vitamin C] 250 mg PO DAILY 06/21/18 Aspirin [Ecotrin 81 mg EC Tablet] 81 mg PO DAILY 06/21/18 Atorvastatin Calcium [Lipitor 10 mg Tablet] 10 mg PO BID 06/21/18 Clopidogrel Bisulfate [Plavix 75 mg Tablet] 75 mg PO DAILY 06/21/18 Ergocalciferol (Vitamin D2) [Drisdol 50,000 unit (1.25MG) Capsule] 50,000 unit PO TH@0800 06/21/18 Insulin Aspart [Novolog Flexpen] 0 unit SQ .SLIDING SCALE 06/21/18 Insulin Aspart [Novolog Flexpen] 4 unit SQ MEALS 06/21/18 Insulin Glargine,Hum.rec.anlog [Lantus Solostar] 3 units SQ QHS 06/21/18 Isosorbide Mononitrate [Isosorbide Mononitrate ER] 30 mg PO DAILY 06/21/18 Lisinopril [Prinivil 5 mg Tablet] 5 mg PO QHS 06/21/18 Prednisone [Deltasone 5 mg Tablet] 5 mg PO DAILY 06/21/18 Ranitidine HCl [Zantac 150 mg Tablet] 150 mg PO BID 06/21/18 Tamsulosin HCl [Flomax 0.4 mg Cap.sr] 0.4 mg PO DAILY 06/21/18 Allergies/Adverse Reactions: No Known Allergies Allergy (Verified 06/21/18 16:14) Review of Systems Constitutional: ABSENT: anorexia, chills, fever(s), headache(s) Nose, Mouth, and Throat: ABSENT: headache(s) Cardiovascular: ABSENT: chest pain, dyspnea on exertion, edema, orthropnea Respiratory: ABSENT: cough, dyspnea, sputum Gastrointestinal: ABSENT: bloating, constipation, diarrhea, nausea, vomiting Genitourinary: PRESENT: difficulty urinating, dysuria. ABSENT: nocturia Musculoskeletal: PRESENT: muscle weakness. ABSENT: deformity - w Neurological: ABSENT: confusion, focal weakness, numbness, weakness Physical Exam Vital Signs: Temp Pulse Resp BP Pulse Ox 97.5 F 79 18 116/60 100 06/22/18 03:00 06/21/18 22:07 06/22/18 02:00 06/22/18 02:00 06/22/18 02:00 Intake & Output 06/21/18 06/22/18 06/23/18 06:59 06:59 06:59 Intake Total 150 Balance 150 General appearance: PRESENT: no acute distress, well-developed, well-nourished Mouth exam: PRESENT: moist, neck supple Neck exam: ABSENT: full ROM, JVD Respiratory exam: PRESENT: clear to auscultation jolie. ABSENT: accessory muscle use, crackles, rales, rhonchi, wheezes Cardiovascular exam: PRESENT: RRR, +S1, +S2 GI/Abdominal exam: PRESENT: soft. ABSENT: ascites, firm, tenderness Extremities exam: ABSENT: pedal edema, tenderness, +1 edema, +2 edema Musculoskeletal exam: PRESENT: normal inspection. ABSENT: tenderness Neurological exam: PRESENT: alert, awake, oriented to person, oriented to place , oriented to time, oriented to situation, motor sensory deficit. ABSENT: reflexes normal Psychiatric exam: PRESENT: appropriate affect, normal mood Skin exam: PRESENT: dry, intact, warm. ABSENT: cyanosis Results Laboratory Results: 06/21/18 19:09 06/21/18 19:09 06/21/18 06/21/18 19:09 19:09 WBC 9.3 RBC 4.22 L Hgb 12.7 L Hct 38.0 MCV 90 MCH 30.2 MCHC 33.5 RDW 16.0 H Plt Count 229 Seg Neutrophils % 51.4 Lymphocytes % 37.1 Monocytes % 8.6 Eosinophils % 2.4 Basophils % 0.5 Absolute Neutrophils 4.8 Absolute Lymphocytes 3.4 Absolute Monocytes 0.8 Absolute Eosinophils 0.2 Absolute Basophils 0.0 Sodium 140.8 Potassium 4.7 Chloride 102 Carbon Dioxide 22 Anion Gap 17 BUN 26 H Creatinine 3.29 H Est GFR ( Amer) 23 L Est GFR (Non-Af Amer) 19 L Glucose 129 H Calcium 8.7 Total Bilirubin 0.5 AST 49 ALT 50 Alkaline Phosphatase 185 H Total Protein 8.2 Albumin 3.6 Impressions: Abdomen/Pelvis CT 06/21/18 17:48 IMPRESSION: 1. Renal atrophy with transplanted kidney. 2. Extensive atherosclerosis. Assessment & Plan - Diagnosis (1) ESBL (extended spectrum beta-lactamase) producing bacteria infection Plan: Currently on ertapenem and levofloxacin. Adjusting antibiotics to be properly adjusted to ESRD patients. Unfortunately, ertapenem can not be ordered to be given at the dialysis unit, so he would have to receive it as outpatient at the hospital if he were discharged. (2) ESRD on hemodialysis Is this a current diagnosis for this admission?: Yes Plan: will look to get him dialysis tomorrow if he is still in the hospital. (3) Hematuria Qualifiers: Hematuria type: unspecified type Qualified Code(s): R31.9 - Hematuria, unspecified Is this a current diagnosis for this admission?: Yes Plan: [facility] (4) UTI (urinary tract infection) Qualifiers: Urinary tract infection type: site unspecified Hematuria presence: with hematuria Qualified Code(s): N39.0 - Urinary tract infection, site not specified; R31.9 - Hematuria, unspecified; R31.9 - Hematuria, unspecified Plan: currently on ertapenem and levofloxacin. (6) C. difficile colitis Plan: prior history, currently stable (7) Diabetes mellitus, type II Qualifiers: Diabetes mellitus supervisor long goods insulin use: with fci use Diabetes mellitus complication status: with other specified complication Qualified Code (s): E11.69 - Type 2 diabetes mellitus with other specified complication; Z79.4 - group home (current) use of insulin; Z79.4 - computer terminal operator (current) use of insulin ; Z79.4 - group home (current) use of insulin; Z79.4 - computer terminal operator (current) use of insulin Is this a current diagnosis for this admission?: Yes (8) Hypertension Qualifiers: Hypertension type: essential hypertension Qualified Code(s): I10 - Essential (primary) hypertension Is this a current diagnosis for this admission?: Yes
[2018-06-22] MEDS: LACTOBACILLUS ACIDOPHILUS 250 MG TAB PO SCH ×2 (16:14→17:27)
[2018-06-22 17:01] LABS: APPEARANCE,URINE TURBID; BILIRUBIN,URINE NEGATIVE (NEGATIVE); COLOR,URINE RED; GLUCOSE, URINE >=500 mg/dL (NEGATIVE); KETONES,URINE NEGATIVE (NEGATIVE); LEUKOCYTE ESTERASE,URINE LARGE (NEGATIVE); NITRITE,URINE NEGATIVE (NEGATIVE); PROTEIN,URINE >=500 mg/dL (NEGATIVE); UROBILINOGEN,URINE NEGATIVE mg/dL (<2.0)
--- NOTE | 2018-06-22 19:10 | Progress Note ---
Provider Note Provider Note: ID Consult Note Pt not seen or examined. Reviewed chart. Pt is a 62 year old man with PMH including Guillan-Maywood, ESRD on HD, failed renal allograft, DM, CAD, hx of Clostridium difficile infection (at least 2 prior episodes of CDI). Pt had U/A and UCx recently sent while he was at dialysis when he had compaints of a burning sensation with urination. However on ED provider note, pt had no difficulty urinating or painful urination. On exam, pt has had no abdominal pain , fever or chills, flank pain or N&V. U/A from 06/18 showed pyuria with >182 WBC/ hpf, negative for nitrites, trace leukocyte esterase, and hematuria >182 RBC/ hpf. Clean catch UCx grew 10-20k cfu of E coli and 20-30k cfu ESBL Klebsella oxytoca. Pt has not had fever. WBC count is normal. According to one note in [facility] EHR, pt has had intermittent dysuria since he had acute renal allograft rejection in 2013. Impression/Recommendations - Whether treatment is indicated is a matter of clinical judgement in the setting of conflictual information. Pt has dysuria that might be compatible with UTI if there is no alternative cause (e.g. urolithiasis, urethral irritation, etc.), but low colony forming counts <100k CFU/mL in UCx raise some doubt about UTI diagnosis as these amounts of growth are frequently clinically insignificant in hospitalized patients. Recommend confirming with patient the nature and duration of his symptoms and whether another explanation is present, if not already done. - If the decision is made to treat the patient as having a UTI, therapy should be tailored to avoid antibiotics most closely associated with risk of developing C difficile infection, given pt's history of CDI in the past, and should be given for the shortest necessary period of time. Levaquin should be discontinued. Completion of a 7 day course of ertapenem alone or amikacin dosed with dialysis or PO fosfomycin given after dialysis x 3 doses should be sufficient if therapy is indeed indicated. John Alvarez MD [facility] Infectious Diseases, pager [phone]
[2018-06-22] MEDS: LISINOPRIL 5 MG TABLET PO SCH (21:33)
[2018-06-22] MEDS: ERTAPENEM SODIUM 0.5 GM in NORMAL SALINE 50 ML IV SCH (21:33)
[2018-06-22] MEDS ORDERED: LEVOFLOXACIN 500 MG/D5W RTU 500 MG/100 ML RTUPB IV SCH (22:00)
[2018-06-23] MEDS: HEPARIN SOD (PORCINE) 5,000 UNIT/ML 1 ML SYRINGE SUBCUT SCH ×3 (05:06→21:14)
[2018-06-23 06:04] LABS: MEAN CORPUSCULAR HGB CONC 33.3 g/dL (32.0-36.0)
[2018-06-23 06:20] LABS: HEMATOCRIT 36.7 % (37.9-51.0); HEMOGLOBIN 12.2 g/dL (13.5-17.0); MEAN CORPUSCULAR HEMOGLOBIN 30.2 pg (27.0-33.4); MEAN CORPUSCULAR VOLUME 91 fl (80-97); PLATELET COUNT 235 10^3/uL (150-450); RED BLOOD COUNT 4.06 10^6/uL (4.35-5.55); RED CELL DISTRIBUTION WIDTH 16.2 % (11.5-14.0); WHITE BLOOD COUNT 8.8 10^3/uL (4.0-10.5)
[2018-06-23 06:39] LABS: ANION GAP 19 (5-19); BLOOD UREA NITROGEN 52 mg/dL (7-20); CALCIUM 8.7 mg/dL (8.4-10.2); CARBON DIOXIDE 21 mmol/L (22-30); CHLORIDE 103 mmol/L (98-107); GLUCOSE 87 mg/dL (75-110); POTASSIUM 5.1 mmol/L (3.6-5.0); SODIUM 143.2 mmol/L (137-145)
[2018-06-23] MEDS: ISOSORBIDE MONONITRATE 30 MG TAB.ER.24H PO SCH (11:01)
[2018-06-23] MEDS: ASCORBIC ACID 500 MG TABLET PO SCH (11:04)
[2018-06-23] MEDS: ATORVASTATIN CALCIUM 10 MG TABLET PO SCH ×2 (11:04→18:59)
[2018-06-23] MEDS: PREDNISONE 5 MG TABLET PO SCH (11:05)
[2018-06-23] MEDS: CLOPIDOGREL BISULFATE 75 MG TABLET PO SCH (11:06)
[2018-06-23] MEDS: TAMSULOSIN HCL 0.4 MG CAP.SR.24H PO SCH (11:06)
[2018-06-23] MEDS: ASPIRIN 81 MG TABLET, ENT COATED PO SCH (11:06)
[2018-06-23] MEDS: FAMOTIDINE 20 MG TABLET PO SCH ×2 (11:06→21:14)
[2018-06-23] MEDS: LACTOBACILLUS ACIDOPHILUS 250 MG TAB PO SCH ×2 (11:13→18:50)
--- NOTE | 2018-06-23 15:19 | PDOC PROGRESS REPORT ---
Subjective Progress Note for:: 06/23/18 Reason For Visit: Patient seen today on dialysis. He is undergoing dialysis without any issues. His hematuria is clearing and his dysuria is a whole lot better since he has been on on IV antibiotics. Earlier discussions were done with Dr. Girard on his multidrug-resistant UTI and antibiotics. He has been consulted with ID from [facility]. They recommended use of fosfomycin in lieu of his current antibiotics. He is also now growing 1 out of 2 sets of blood cultures also revealed gram- positive cocci. Physical Exam Vital Signs: Temp Pulse Resp BP Pulse Ox 98.4 F 66 16 168/61 H 100 06/23/18 12:04 06/23/18 12:04 06/23/18 12:04 06/23/18 12:04 06/23/18 12:04 Intake & Output 06/22/18 06/23/18 06/24/18 06:59 06:59 06:59 Intake Total 150 370 Balance 150 370 Weight 64 kg General appearance: PRESENT: no acute distress Respiratory exam: PRESENT: clear to auscultation jolie. ABSENT: crackles Cardiovascular exam: PRESENT: RRR, +S1, +S2 GI/Abdominal exam: PRESENT: normal bowel sounds, soft. ABSENT: ascites, firm, organomegaly, tenderness Neurological exam: PRESENT: alert, oriented to person, oriented to place Results Laboratory Results: 06/23/18 04:17 06/23/18 06:10 06/22/18 06/23/18 06/23/18 16:36 04:17 06:10 WBC 8.8 RBC 4.06 L Hgb 12.2 L Hct 36.7 L MCV 91 MCH 30.2 MCHC 33.3 RDW 16.2 H Plt Count 235 Sodium 143.2 Potassium 5.1 H Chloride 103 Carbon Dioxide 21 L Anion Gap 19 BUN 52 H Creatinine 5.52 H Est GFR ( Amer) 13 L Est GFR (Non-Af Amer) 11 L Glucose 87 Calcium 8.7 Urine Color RED Urine Appearance TURBID Urine pH 8.0 Ur Specific [place] 1.020 Urine Protein >=500 H Urine Glucose (UA) >=500 H Urine Ketones NEGATIVE Urine Blood LARGE H Urine Nitrite NEGATIVE Ur Leukocyte Esterase LARGE H Urine WBC (Auto) >182 Urine RBC (Auto) >182 Impressions: Abdomen/Pelvis CT 06/21/18 17:48 IMPRESSION: 1. Renal atrophy with transplanted kidney. 2. Extensive atherosclerosis. Assessment & Plan - Diagnosis (1) Antibiotic-resistant bacterial infection Plan: UTI with ESBL E. coli and Klebsiella.Testing toPatient currently on IV ertapenem and has had symptomatic improvement of his dysuria.Dr. Girard has discussed him with ID at [facility] who proposed to use fosfomycin in lieu of his current antibiotics so that he can be discharged. They also did mention the possibility of C. difficile colitis given his propensity for that. I currently agree with this plan of action.However prior to discharge we have to make sure that while Ezekiel trammell has fosfomycin so that he can obtain it on prior to discharge.I also discussed with the patient about doing post voided catheterization. He says he is able to control his urination. If he has gotten more than 100 cc of residual urine then he needs to have his catheterize him at least twice a day to prevent recurring UTI. Patient willing to proceed. (2) Hematuria Qualifiers: Hematuria type: unspecified type Qualified Code(s): R31.9 - Hematuria, unspecified Is this a current diagnosis for this admission?: Yes Plan: He needs to have follow-up with outpatient neurology. (3) Anemia in chronic kidney disease (CKD) Qualifiers: Chronic kidney disease stage: stage 5, not on chronic dialysis Qualified Code(s): N18.5 - Chronic kidney disease, stage 5; D63.1 - Anemia in chronic kidney disease; D63.1 - Anemia in chronic kidney disease Plan: Stable. No need for erythropoietin currently. (4) Diabetes mellitus, type II Qualifiers: Diabetes mellitus penitentiary insulin use: with predatory animal exterminator use Diabetes mellitus complication status: with other specified complication Qualified Code (s): E11.69 - Type 2 diabetes mellitus with other specified complication; Z79.4 - shelter (current) use of insulin; Z79.4 - shelter (current) use of insulin ; Z79.4 - termination clerk (current) use of insulin; Z79.4 - termination clerk (current) use of insulin Is this a current diagnosis for this admission?: Yes Plan: Advised the need for tight control to prevent UTIs and other infections. (5) ESRD on hemodialysis Is this a current diagnosis for this admission?: Yes Plan: Is seen on dialysis. Undergoing dialysis without any issues. Vital signs are stable. Is being supervised to ensure safe and smooth procedure. Plan to remove 2 L as tolerated. Orders were reviewed with the treating dialysis nurse.
--- NOTE | 2018-06-23 17:14 | PDOC PROGRESS REPORT ---
Subjective Progress Note for:: 06/23/18 Subjective:: Patient is currently doing well Patient CT scan of the abdomen and pelvis no other acute findings Patient have an appointment to see a urology at [facility] through the ID Patient's denied any fever no chills no abdominal pain Reason For Visit: INFECTION OF DRUG-RESISTANT BACTERIA, URINARY Physical Exam Vital Signs: Temp Pulse Resp BP Pulse Ox 98.4 F 75 16 168/61 H 100 06/23/18 12:04 06/23/18 14:00 06/23/18 12:04 06/23/18 12:04 06/23/18 12:04 Intake & Output 06/22/18 06/23/18 06/24/18 06:59 06:59 06:59 Intake Total 150 370 Balance 150 370 Weight 64 kg General appearance: PRESENT: no acute distress, well-developed, well-nourished Head exam: PRESENT: atraumatic, normocephalic Eye exam: PRESENT: conjunctiva pink, EOMI, PERRLA. ABSENT: scleral icterus Ear exam: PRESENT: normal external ear exam Mouth exam: PRESENT: moist, tongue midline Neck exam: PRESENT: full ROM. ABSENT: carotid bruit, JVD, lymphadenopathy, thyromegaly Respiratory exam: PRESENT: clear to auscultation jolie Cardiovascular exam: PRESENT: RRR. ABSENT: diastolic murmur, rubs, systolic murmur Pulses: PRESENT: normal dorsalis pedis pul, +2 pedal pulses bilateral Vascular exam: PRESENT: normal capillary refill GI/Abdominal exam: PRESENT: normal bowel sounds, soft. ABSENT: distended, guarding, mass, organolmegaly, rebound, tenderness Rectal exam: PRESENT: deferred Neurological exam: PRESENT: alert, awake, oriented to person, oriented to place , oriented to time, oriented to situation, CN II-XII grossly intact. ABSENT: motor sensory deficit Psychiatric exam: PRESENT: appropriate affect, normal mood. ABSENT: homicidal ideation, suicidal ideation Skin exam: PRESENT: dry, intact, warm. ABSENT: cyanosis, rash Results Laboratory Results: 06/23/18 04:17 06/23/18 06:10 06/23/18 06/23/18 04:17 06:10 WBC 8.8 RBC 4.06 L Hgb 12.2 L Hct 36.7 L MCV 91 MCH 30.2 MCHC 33.3 RDW 16.2 H Plt Count 235 Sodium 143.2 Potassium 5.1 H Chloride 103 Carbon Dioxide 21 L Anion Gap 19 BUN 52 H Creatinine 5.52 H Est GFR ( Amer) 13 L Est GFR (Non-Af Amer) 11 L Glucose 87 Calcium 8.7 Impressions: Abdomen/Pelvis CT 06/21/18 17:48 IMPRESSION: 1. Renal atrophy with transplanted kidney. 2. Extensive atherosclerosis. Assessment & Plan - Diagnosis (1) UTI due to extended-spectrum beta lactamase (ESBL) producing Escherichia coli Is this a current diagnosis for this admission?: Yes Plan: Start the patient on entepenam which is sensitive to the organisms We will consult ID for further evaluations while patient does not have any fever Still having some neurogenic bladder will get the in and out catheter (2) Chronic kidney disease Qualifiers: Chronic kidney disease stage: on chronic dialysis Qualified Code(s): N18.6 - End stage renal disease; Z99.2 - Dependence on renal dialysis; Z99.2 - Dependence on renal dialysis; Z99.2 - Dependence on renal dialysis; Z99.2 - Dependence on renal dialysis Is this a current diagnosis for this admission?: Yes Plan: Consult to nephrology for further evaluations (3) Coronary artery disease Qualifiers: Coronary Disease-Associated Artery/Lesion type: unspecified vessel or lesion type Is this a current diagnosis for this admission?: Yes Plan: Currently all stable (4) Diabetes mellitus, type II Qualifiers: Diabetes mellitus detention insulin use: with dedicated intermodal truck driver use Diabetes mellitus complication status: with other specified complication Qualified Code (s): E11.69 - Type 2 diabetes mellitus with other specified complication; Z79.4 - local intermodal truck driver (current) use of insulin; Z79.4 - MCC (current) use of insulin ; Z79.4 - MCC (current) use of insulin; Z79.4 - MCC (current) use of insulin Is this a current diagnosis for this admission?: Yes (5) ESRD on hemodialysis Is this a current diagnosis for this admission?: Yes (6) Gastroesophageal reflux disease Qualifiers: Esophagitis presence: esophagitis presence not specified Qualified Code(s) : K21.9 - Gastro-esophageal reflux disease without esophagitis Is this a current diagnosis for this admission?: Yes Plan: Currently on stable (7) History of Clostridium difficile colitis Is this a current diagnosis for this admission?: Yes Plan: Patient have recurrent C. difficile currently denied any symptoms (8) History of kidney transplant Is this a current diagnosis for this admission?: Yes (9) Hyperlipidemia Qualifiers: Hyperlipidemia type: unspecified Qualified Code(s): E78.5 - Hyperlipidemia , unspecified Is this a current diagnosis for this admission?: Yes (10) Hypertension Qualifiers: Hypertension type: essential hypertension Qualified Code(s): I10 - Essential (primary) hypertension Is this a current diagnosis for this admission?: Yes (11) Leg ulcer Qualifiers: Laterality: unspecified laterality Is this a current diagnosis for this admission?: Yes (12) Obstructive uropathy Is this a current diagnosis for this admission?: Yes (13) Osteomyelitis of foot, acute Is this a current diagnosis for this admission?: Yes (14) Sleep apnea syndrome Qualifiers: Sleep apnea type: unspecified type Is this a current diagnosis for this admission?: Yes Plan: use cpap (15) Cerebrovascular disease Is this a current diagnosis for this admission?: Yes - Time Time Spent with patient: 15-24 minutes Medications reviewed and adjusted accordingly: Yes Anticipated discharge: Home Within: within 24 hours - Inpatient Certification Medical Necessity: Need Close Monitoring Due to Risk of Patient Decompensation Post Hospital Care: D/C Respiratory Care Program Director Documentation - Plan Summary Plan Summary: As per discussed with the Dr. Tavares anesthesia ID consult will start the patient on the fosfomycin 3 g postdialysis 3 dose and her discharge
[2018-06-23] MEDS: LISINOPRIL 5 MG TABLET PO SCH (21:14)
[2018-06-23] MEDS: ERTAPENEM SODIUM 0.5 GM in NORMAL SALINE 50 ML IV SCH (21:14)
[2018-06-23] MEDS ORDERED: LEVOFLOXACIN 500 MG/D5W RTU 500 MG/100 ML RTUPB IV SCH (22:00)
[2018-06-24] MEDS: HEPARIN SOD (PORCINE) 5,000 UNIT/ML 1 ML SYRINGE SUBCUT SCH (05:04)
--- NOTE | 2018-06-24 08:54 | PDOC DISCHARGE SUMMARY ---
General - Admit/Disc Date/PCP Admission Date/Primary Care Provider: 06/21/18 18:00 KEEGAN MONTENEGRO MD Discharge Date: 06/24/18 - Discharge Diagnosis (1) UTI due to extended-spectrum beta lactamase (ESBL) producing Escherichia coli Is this a current diagnosis for this admission?: Yes Summary: As per his ID recommendations discussed with the nephrology treat the patient with the fosfomycin's 3 g 1 dose after each dialysis total 3 dose Have an appointment to see a urologist outpatient still continues to follow (2) Chronic kidney disease Is this a current diagnosis for this admission?: Yes Summary: Continues to follow with the nephrology (3) Coronary artery disease Is this a current diagnosis for this admission?: Yes Summary: Currently all stable patient's denied any complaints (4) Diabetes mellitus, type II Is this a current diagnosis for this admission?: Yes Summary: Currently all stable (5) ESRD on hemodialysis Is this a current diagnosis for this admission?: Yes Summary: Currently on hemodialysis (6) Gastroesophageal reflux disease Is this a current diagnosis for this admission?: Yes Summary: Continuous Zantac (7) History of Clostridium difficile colitis Is this a current diagnosis for this admission?: Yes Summary: Currently all stable denied any complaint (8) History of kidney transplant Is this a current diagnosis for this admission?: Yes (9) Hyperlipidemia Is this a current diagnosis for this admission?: Yes (10) Hypertension Is this a current diagnosis for this admission?: Yes (11) Leg ulcer Is this a current diagnosis for this admission?: Yes Summary: Continues follow with the wound care (12) Obstructive uropathy Is this a current diagnosis for this admission?: Yes Summary: Follow outpatients urology (13) Osteomyelitis of foot, acute Is this a current diagnosis for this admission?: No (14) Sleep apnea syndrome Is this a current diagnosis for this admission?: Yes Summary: Continue CPAP (15) Cerebrovascular disease Is this a current diagnosis for this admission?: Yes - Additional Information Discharge Diet: As Tolerated Discharge Activity: Activity As Tolerated Prescriptions: Fosfomycin Tromethamine [Monurol 3 gm Packet] 3 gm PO DAILY #3 packet Home Medications: Ascorbic Acid [Vitamin C] 250 mg PO DAILY 06/21/18 Aspirin [Ecotrin 81 mg EC Tablet] 81 mg PO DAILY 06/21/18 Atorvastatin Calcium [Lipitor 10 mg Tablet] 10 mg PO BID 06/21/18 Clopidogrel Bisulfate [Plavix 75 mg Tablet] 75 mg PO DAILY 06/21/18 Ergocalciferol (Vitamin D2) [Drisdol 50,000 unit (1.25MG) Capsule] 50,000 unit PO TH@0800 06/21/18 Insulin Aspart [Novolog Flexpen] 0 unit SQ .SLIDING SCALE 06/21/18 Insulin Aspart [Novolog Flexpen] 4 unit SQ MEALS 06/21/18 Insulin Glargine,Hum.rec.anlog [Lantus Solostar] 3 units SQ QHS 06/21/18 Isosorbide Mononitrate [Isosorbide Mononitrate ER] 30 mg PO DAILY 06/21/18 Lisinopril [Prinivil 5 mg Tablet] 5 mg PO QHS 06/21/18 Prednisone [Deltasone 5 mg Tablet] 5 mg PO DAILY 06/21/18 Ranitidine HCl [Zantac 150 mg Tablet] 150 mg PO BID 06/21/18 Tamsulosin HCl [Flomax 0.4 mg Cap.sr] 0.4 mg PO DAILY 06/21/18 Fosfomycin Tromethamine [Monurol 3 gm Packet] 3 gm PO DAILY #3 packet 06/24/18 History of Present Illness History of Present Illness: KATHRYN HURLEY is a 62 year old male This is a 62-year-old male with the history of the renals transplants status post rejected status post currently hemodialysis status post hypertensionsAnd type 2 diabetes mellitus history of the coronary artery disease status post stent placement with recent cardiac arrest history of the Recurrent urinary tract infections seen by the urology and infectious disease at [facility] have a urine culture was done in the nephrology office yesterday and positive for ESBL and E. coli and the patient was complaining some burning sensations and patient was at this point sent to the emergency department for IV antibiotic Patient also habits neurogenic bladder most likely unable to empty the bladder and obstructive uropathy seen by the urology as outpatient Patient's currently denied any chest pain denied any shortness of the breath Denied any abdominal pain no nausea no vomiting Hospital Course Hospital Course: This is a 62-year-old male with multiple medical problems as above, urine cultures growing ESBL with some symptomatic some burning hematuria in the nephrology send the patient to the emergency department and admitted and started the patient on invaz Patient still making urine in notice some blood in the urine CT scan of the abdomen and pelvis was done nothing acute finding Is otherwise completely asymptomatic but after starting the IV antibiotic patient's response very well and the symptoms is all improving which confirmed most likely patient had ESBL with the colon is very less Patients at this point Id consult hospitalist and suggest a continuous IV antibiotic versus the p.o. fosfomycin's Patient's finished IV antibiotic here for difficult for transportations to come to outpatient IV antibiotic and has been discussed with the nephrology suggestive of Ms. Guaman's p.o. fosfomycin's aspirin I do suggest dialysis total 3 dose Discussed with the patient and the in patients discharged home with a stable conditions and to continue to follow outpatients urology right there is no urologist available here in the hospital Physical Exam Vital Signs: Temp Pulse Resp BP Pulse Ox 98.5 F 77 16 136/66 H 99 06/24/18 03:10 06/24/18 03:10 06/24/18 03:10 06/24/18 03:10 06/24/18 03:10 Intake & Output 06/23/18 06/24/18 06/25/18 06:59 06:59 06:59 Intake Total 370 168 Output Total 1600 Balance 370 -1432 Weight 64 kg 62.7 kg General appearance: PRESENT: no acute distress, well-developed, well-nourished Head exam: PRESENT: atraumatic, normocephalic Eye exam: PRESENT: conjunctiva pink, EOMI, PERRLA. ABSENT: scleral icterus Ear exam: PRESENT: normal external ear exam Mouth exam: PRESENT: moist, tongue midline Neck exam: PRESENT: full ROM. ABSENT: carotid bruit, JVD, lymphadenopathy, thyromegaly Respiratory exam: PRESENT: clear to auscultation jolie Cardiovascular exam: PRESENT: RRR. ABSENT: diastolic murmur, rubs, systolic murmur Pulses: PRESENT: normal dorsalis pedis pul, +2 pedal pulses bilateral Vascular exam: PRESENT: normal capillary refill GI/Abdominal exam: PRESENT: normal bowel sounds, soft. ABSENT: distended, guarding, mass, organolmegaly, rebound, tenderness Rectal exam: PRESENT: deferred Extremities exam: ABSENT: pedal edema Neurological exam: PRESENT: alert, awake, oriented to person, oriented to place , oriented to time, oriented to situation, CN II-XII grossly intact. ABSENT: motor sensory deficit Psychiatric exam: PRESENT: appropriate affect, normal mood. ABSENT: homicidal ideation, suicidal ideation Skin exam: PRESENT: dry, intact, warm. ABSENT: cyanosis, rash Results Laboratory Results: 06/23/18 04:17 06/23/18 06:10 Impressions: Abdomen/Pelvis CT 06/21/18 17:48 IMPRESSION: 1. Renal atrophy with transplanted kidney. 2. Extensive atherosclerosis. Qualifiers - * PATIENT BEING DISCHARGED WITH ANY OF THE FOLLOWING DIAGNOSIS: No VTE patient discharged on overlapping Therapy?: Yes Plan Time Spent: Greater than 30 Minutes - Patient is discharged home with the stable conditions as able discussed with the regarding the patient's chronic conditions
[2018-06-24] MEDS: CLOPIDOGREL BISULFATE 75 MG TABLET PO SCH (09:48)
[2018-06-24] MEDS: ASCORBIC ACID 500 MG TABLET PO SCH (09:48)
[2018-06-24] MEDS: FAMOTIDINE 20 MG TABLET PO SCH (09:48)
[2018-06-24] MEDS: PREDNISONE 5 MG TABLET PO SCH (09:48)
[2018-06-24] MEDS: ATORVASTATIN CALCIUM 10 MG TABLET PO SCH (09:48)
[2018-06-24] MEDS: ASPIRIN 81 MG TABLET, ENT COATED PO SCH (09:48)
[2018-06-24] MEDS: TAMSULOSIN HCL 0.4 MG CAP.SR.24H PO SCH (09:48)
[2018-06-24] MEDS: ISOSORBIDE MONONITRATE 30 MG TAB.ER.24H PO SCH (09:48)
[2018-06-24] MEDS: LACTOBACILLUS ACIDOPHILUS 250 MG TAB PO SCH (09:49)
[2018-06-24 10:40] VITALS: BP 148/61
== END 2018-06-24 11:23 | disposition home health service (06) | DRG 689 ==
LOC: ER 15:06 → EH 18:00 → 4S 06-22 15:12
PROVIDERS: ADMIT Family Medicine; ATTEND Family Medicine
PROC: 5A1D70Z Performance of Urinary Filtration, Intermittent, Less than 6 Hours Per Day (ICD-10-PCS; principal; 2018-06-23)
DX: N39.0 Urinary tract infection, site not specified (principal); N18.6 End stage renal disease; M86.179 Other acute osteomyelitis, unspecified ankle and foot; Z94.0 Kidney transplant status; I13.2 Hypertensive heart and chronic kidney disease with heart failure and with stage 5 chronic kidney disease, or end stage renal disease; I50.30 Unspecified diastolic (congestive) heart failure; E11.22 Type 2 diabetes mellitus with diabetic chronic kidney disease; B96.20 Unspecified Escherichia coli [E. coli] as the cause of diseases classified elsewhere; I25.10 Atherosclerotic heart disease of native coronary artery without angina pectoris; K21.9 Gastro-esophageal reflux disease without esophagitis; E78.00 Pure hypercholesterolemia, unspecified; N13.9 Obstructive and reflux uropathy, unspecified; E11.69 Type 2 diabetes mellitus with other specified complication; G47.30 Sleep apnea, unspecified; J44.9 Chronic obstructive pulmonary disease, unspecified; E11.21 Type 2 diabetes mellitus with diabetic nephropathy; D63.1 Anemia in chronic kidney disease; R31.9 Hematuria, unspecified; B96.1 Klebsiella pneumoniae [K. pneumoniae] as the cause of diseases classified elsewhere; Z16.24 Resistance to multiple antibiotics; I25.2 Old myocardial infarction; Z99.2 Dependence on renal dialysis; Z79.4 Long term (current) use of insulin; Z79.899 Other long term (current) drug therapy; Z79.82 Long term (current) use of aspirin; Z95.5 Presence of coronary angioplasty implant and graft; Z99.81 Dependence on supplemental oxygen; Z95.1 Presence of aortocoronary bypass graft; Z79.52 Long term (current) use of systemic steroids; Z86.73 Personal history of transient ischemic attack (TIA), and cerebral infarction without residual deficits; Z82.49 Family history of ischemic heart disease and other diseases of the circulatory system
CPT/HCPCS: 36415; 74176; 80048; 80053; 81001; 82962; 85025; 85027; 87040; 87077; 87086; 87088; 87186; 99285; J1335; J1644; J1956; J7512

== ENCOUNTER 2018-07-26 04:43 | Emergency (ER) | payer MEDICARE ==
--- NOTE | 2018-07-26 05:13 | ER Document Report ---
ED General - General Information source: Patient TRAVEL OUTSIDE OF THE [place] IN LAST 30 DAYS: No <SALEEM GUTIERREZ - Last Filed: 07/26/18 05:07> <NIKITA MIRELES - Last Filed: 07/26/18 07:11> - General Chief Complaint: Congestion Stated Complaint: COLD SYMPTOMS Time Seen by Provider: 07/26/18 04:54 Notes: Patient is a 62-year-old male that presents to the emergency department today with complaints of nasal congestion. Patient states he feels like he has a cold. Patient states he has had a nonproductive cough, sneezing, and a runny nose. Patient states he has had these symptoms for a couple of days, it has not gotten worse but just is not getting better. Patient is scheduled for dialysis at 1100 today. (SALEEM GUTIERREZ) - Related Data Allergies/Adverse Reactions: No Known Allergies Allergy (Verified 06/21/18 16:14) Past Medical History - General Information source: Patient - Social History Smoking Status: Former Smoker Cigarette use (# per day): No Chew tobacco use (# tins/day): No Frequency of alcohol use: None Drug Abuse: None Lives with: Family Family History: Reviewed & Not Pertinent, CAD Patient has suicidal ideation: No Patient has homicidal ideation: No - Past Medical History Cardiac Medical History: Reports: Hx Congestive Heart Failure, Hx Coronary Artery Disease, Hx Heart Attack - QUADRUPLE BYPASS 2007, HEART MURMUR, Hx Hypercholesterolemia, Hx Hypertension Pulmonary Medical History: Reports: Hx Asthma, Hx COPD, Hx Pneumonia - HX. GUILLAIN-BARRE' SYNDROME, Hx Intubation, Hx Respiratory Failure, Hx Sleep Apnea - On C Pap Neurological Medical History: Reports: Hx Cerebrovascular Accident - 2006 Endocrine Medical History: Reports: Hx Diabetes Mellitus Type 1, Hx Diabetes Mellitus Type 2 Renal/ Medical History: Reports: Hx End Stage Renal Disease, Hx Hemodialysis GI Medical History: Reports: Hx Gastroesophageal Reflux Disease Infectious Medical History: Reports: Hx C-Diff Past Surgical History: Reports: Hx Cardiac Catheterization, Hx Cardiac Surgery - bipass x4, Hx Coronary Artery Bypass Graft - Quadruple bypass 2007, Hx Kidney (Renal Surgery) - RENAL TRANSPLANT, Hx Vascular Surgery - left AV fistual, Other - History peritoneal dialysis catheter placement and removal - Immunizations Immunizations up to date: Yes Hx Diphtheria, Pertussis, Tetanus Vaccination: Yes - UTD Hx Pneumococcal Vaccination: 10/01/16 <SALEEM GUTIERREZ - Last Filed: 07/26/18 05:07> Review of Systems - Review of Systems Constitutional: denies: Fever EENT: See HPI, Nose congestion, Sinus discharge Cardiovascular: No symptoms reported Respiratory: See HPI, Cough Gastrointestinal: No symptoms reported Genitourinary: No symptoms reported Male Genitourinary: No symptoms reported Musculoskeletal: No symptoms reported Skin: No symptoms reported Hematologic/Lymphatic: No symptoms reported Neurological/Psychological: No symptoms reported -: Yes All other systems reviewed and negative <MATTSALEEM - Last Filed: 07/26/18 05:07> Physical Exam <SALEEM GUTIERREZ - Last Filed: 07/26/18 05:07> <NIKITA MIRELES - Last Filed: 07/26/18 07:11> - Notes Notes: Physical Exam: General: Alert, appears well. HEENT: Normocephalic. Atraumatic. PERRL. Extraocular movements intact. Oropharynx clear. Neck: Supple. Non-tender. Respiratory: No respiratory distress. Coarse breath sounds with forced cough. No rhonchi or wheezing. Cardiovascular: Regular rate and rhythm. Abdominal: Normal Inspection. Non-tender. No distension. Normal Bowel Sounds. Back: Non-tender. No deformity or step off. Extremities: Moves all four extremities. Upper extremities: Normal inspection. Normal ROM. Lower extremities: No edema. Normal ROM. See skin exam. Neurological: Normal cognition. AAOx4. Normal speech. Psychological: Normal affect. Normal Mood. Skin: Bandages over the right lateral posterior foot and over the right second toe which patient states are "doing well" so bandages were not removed. (SALEEM GUTIERREZ) Course - Laboratory Result Diagrams: 07/26/18 05:30 07/26/18 05:30 - Diagnostic Test Radiology reviewed: Image reviewed - no CHF <NIKITA MIRELES - Last Filed: 07/26/18 07:11> - Laboratory Laboratory results interpreted by me: 07/26/18 07/26/18 05:30 05:30 RBC 4.08 L Hgb 13.2 L RDW 20.4 H Potassium 5.7 H Carbon Dioxide 20 L BUN 63 H Creatinine 5.72 H Est GFR ( Amer) 12 L Est GFR (Non-Af Amer) 10 L Glucose 200 H Direct Bilirubin 0.5 H Alkaline Phosphatase 157 H Discharge <SALEEM GUTIERREZ - Last Filed: 07/26/18 05:07> <NIKITA MIRELES - Last Filed: 07/26/18 07:11> - Discharge Clinical Impression: Upper respiratory tract infection Qualifiers: URI type: unspecified URI Qualified Code(s): J06.9 - Acute upper respiratory infection, unspecified Condition: Stable Disposition: HOME, SELF-CARE Additional Instructions: Upper Respiratory Illness You have a viral infection of the respiratory passages -- a "cold." This common infection causes nasal congestion, drainage, and often sore throat and cough. It is caused by a virus and is highly contagious. The disease usually lasts a week or more, though the worst symptoms are usually over in 3 or 4 days. There is no "cure" for the viral infection -- it must run its course. If there is a complication, such as bacterial infection in the nose, sinuses, middle ear, or bronchial tubes, antibiotics may be required, but antibiotics won 't affect the virus. If you smoke, you should STOP!! A humidifier may help. An expectorant medication or decongestant may make you more comfortable. Use acetaminophen or ibuprofen for fever or aches. See the doctor if fever persists over two or three days, if there is any significant worsening of your symptoms, or if you simply fail to improve as expected. Be sure to go to dialysis today as scheduled. Referrals: JELANI PAYNE, SINGLE SPINDLE SCREW MACHINE OPERATOR [ALLIED HEALTH PROFESSIONAL] - Follow up as needed Scribe Attestation: 07/26/18 06:18 I personally performed the services described in the documentation, reviewed and edited the documentation which was dictated to the scribe in my presence, and it accurately records my words and actions. (NIKITA MIRELES) Scribe Documentation - Scribe Written by Lucio:: Lucio Zamora, 07/26/2018 0514 acting as scribe for :: Jodee <SALEEM GUTIERREZ - Last Filed: 07/26/18 05:07>
[2018-07-26 05:48] LABS: ABSOLUTE EOSINOPHILS # (AUTO) 0.3 10^3/uL (0.0-0.6); ABSOLUTE LYMPHOCYTES (AUTO) 2.9 10^3/uL (0.5-4.7); ABSOLUTE MONOCYTES (AUTO) 0.8 10^3/uL (0.1-1.4); ABSOLUTE NEUT (AUTO) 3.6 10^3/uL (1.7-8.2); BASOPHILS % (AUTO) 0.5 % (0-2); EOSINOPHILS % (AUTO) 3.7 % (0-6); HEMATOCRIT 39.7 % (37.9-51.0); HEMOGLOBIN 13.2 g/dL (13.5-17.0); LYMPHOCYTES % (AUTO) 37.8 % (13-45); MEAN CORPUSCULAR HEMOGLOBIN 32.2 pg (27.0-33.4); MEAN CORPUSCULAR HGB CONC 33.2 g/dL (32.0-36.0); MEAN CORPUSCULAR VOLUME 97 fl (80-97); MONOCYTES % (AUTO) 11.1 % (3-13); PLATELET COUNT 249 10^3/uL (150-450); RED BLOOD COUNT 4.08 10^6/uL (4.35-5.55); RED CELL DISTRIBUTION WIDTH 20.4 % (11.5-14.0); SEGMENTED NEUTROPHILS % (AUTO) 46.9 % (42-78); TOTAL CELLS COUNTED % (AUTO) 100 %; WHITE BLOOD COUNT 7.7 10^3/uL (4.0-10.5)
[2018-07-26 06:11] LABS: ALANINE AMINOTRANSFERASE 70 U/L (21-72); ALBUMIN 3.5 g/dL (3.5-5.0); ALKALINE PHOSPHATASE 157 U/L (38-126); ASPARTATE AMINO TRANSFERASE 59 U/L (17-59); BILIRUBIN,DIRECT 0.5 mg/dL (0.0-0.4); BILIRUBIN,TOTAL 0.5 mg/dL (0.2-1.3); BLOOD UREA NITROGEN 63 mg/dL (7-20); CALCIUM 8.7 mg/dL (8.4-10.2); CARBON DIOXIDE 20 mmol/L (22-30); CHLORIDE 103 mmol/L (98-107); GLUCOSE 200 mg/dL (75-110); POTASSIUM 5.7 mmol/L (3.6-5.0); TOTAL PROTEIN 7.6 g/dL (6.3-8.2)
[2018-07-26 06:24] LABS: ANION GAP 16 (5-19); SODIUM 139.1 mmol/L (137-145)
--- NOTE | 2018-07-26 07:22 | RADIOLOGY REPORT (SQ) ---
EXAM DESCRIPTION: X-ray two view chest CLINICAL HISTORY: 62 years Male, Cough and congestion COMPARISON: None. TECHNIQUE: PA and Lateral views of the chest performed on 07/26/2018 at 6:58 AM FINDINGS: The lungs are well expanded and are clear. The costophrenic sulci are clear. There is no evidence of a pneumothorax. The cardiac silhouette is normal in size. There are remote postsurgical changes of the mediastinum. The mediastinal contours are normal. No acute osseous abnormalities are identified. No focal soft tissue abnormalities are identified. A large bore left subclavian central venous catheter is present and the tip projects over the region of the cavoatrial junction. IMPRESSION: 1. No evidence of acute intrathoracic disease. 2. Remote postsurgical changes of the mediastinum. 3. The tip of the left subclavian central venous catheter overlies the region of the cavoatrial junction.
[2018-07-26 10:43] VITALS: BP 186/84
== END 2018-07-26 10:15 | disposition home or self-care (01) ==
LOC: ER 04:43
DX: J06.9 Acute upper respiratory infection, unspecified (principal); R09.81 Nasal congestion; R05 Cough; R09.89 Other specified symptoms and signs involving the circulatory and respiratory systems; Z87.891 Personal history of nicotine dependence; I25.10 Atherosclerotic heart disease of native coronary artery without angina pectoris; I10 Essential (primary) hypertension; J44.9 Chronic obstructive pulmonary disease, unspecified; E11.9 Type 2 diabetes mellitus without complications
CPT/HCPCS: 36415; 71046; 80053; 85025; 99285

== ENCOUNTER 2018-08-01 02:08 | Emergency (ER) | payer MEDICARE ==
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
--- NOTE | 2018-08-01 02:46 | RADIOLOGY REPORT (SQ) ---
Clinical History : shortness of breath , Exam : Portable AP view of the chest 08/01/2018 2:25 AM CDT Comparisons : PA and lateral views of the chest July 26, 2018 Findings : There is a left subclavian dialysis catheter with its tips in the right atrium. There are trace bilateral pleural effusions with patchy bibasilar airspace disease. The rest the lungs remain largely clear. The heart is stable in size. The mediastinal contours are normal in appearance. There are vascular calcifications along the aortic arch. The patient is status post sternotomy and CABG. The thoracic spine is age appropriate. The shoulders are unremarkable. Limited evaluation of the upper abdomen demonstrates no gross abnormalities. Impression: 1. Trace bilateral pleural effusions and bibasilar subsegmental airspace disease. 2. Stable left subclavian dialysis catheter.
[2018-08-01 04:41] LABS: ABSOLUTE BASOPHILS # (AUTO) 0.1 10^3/uL (0.0-0.2); ABSOLUTE EOSINOPHILS # (AUTO) 0.3 10^3/uL (0.0-0.6); ABSOLUTE LYMPHOCYTES (AUTO) 3.1 10^3/uL (0.5-4.7); ABSOLUTE MONOCYTES (AUTO) 0.8 10^3/uL (0.1-1.4); BASOPHILS % (AUTO) 0.8 % (0-2); EOSINOPHILS % (AUTO) 3.7 % (0-6); HEMATOCRIT 43.7 % (37.9-51.0); HEMOGLOBIN 14.4 g/dL (13.5-17.0); LYMPHOCYTES % (AUTO) 33.4 % (13-45); MEAN CORPUSCULAR HEMOGLOBIN 31.4 pg (27.0-33.4); MEAN CORPUSCULAR HGB CONC 32.9 g/dL (32.0-36.0); MEAN CORPUSCULAR VOLUME 95 fl (80-97); PLATELET COUNT 271 10^3/uL (150-450); RED BLOOD COUNT 4.58 10^6/uL (4.35-5.55); RED CELL DISTRIBUTION WIDTH 20.2 % (11.5-14.0); SEGMENTED NEUTROPHILS % (AUTO) 53.1 % (42-78); TOTAL CELLS COUNTED % (AUTO) 100 %; WHITE BLOOD COUNT 9.4 10^3/uL (4.0-10.5)
[2018-08-01 04:57] LABS: ANION GAP 16 (5-19); BLOOD UREA NITROGEN 79 mg/dL (7-20); CALCIUM 8.9 mg/dL (8.4-10.2); CARBON DIOXIDE 26 mmol/L (22-30); CHLORIDE 101 mmol/L (98-107); GLUCOSE 136 mg/dL (75-110); POTASSIUM 5.8 mmol/L (3.6-5.0)
[2018-08-01] MEDS ORDERED: ONDANSETRON 4 MG TAB.RAPDIS PO ONE (07:50)
--- NOTE | 2018-08-01 09:31 | EKG REPORT ---
SEVERITY:- ABNORMAL ECG - SINUS RHYTHM FIRST DEGREE AV BLOCK INFERIOR INFARCT, OLD ANTEROLATERAL INFARCT, AGE INDETERMINATE BORDERLINE PROLONGED QT INTERVAL LVH : Confirmed by: Zoe Lazo 01-Aug-2018 09:30:47
[2018-08-01 13:59] VITALS: BP 202/110
== END 2018-08-01 13:30 | disposition short-term general hospital (02) ==
LOC: ER 02:08
DX: R06.02 Shortness of breath (principal); E87.5 Hyperkalemia; Z94.0 Kidney transplant status; Z99.2 Dependence on renal dialysis; T82.9XXA Unspecified complication of cardiac and vascular prosthetic device, implant and graft, initial encounter; I13.0 Hypertensive heart and chronic kidney disease with heart failure and stage 1 through stage 4 chronic kidney disease, or unspecified chronic kidney disease; E11.22 Type 2 diabetes mellitus with diabetic chronic kidney disease; N18.4 Chronic kidney disease, stage 4 (severe); I50.9 Heart failure, unspecified; E78.00 Pure hypercholesterolemia, unspecified; I25.10 Atherosclerotic heart disease of native coronary artery without angina pectoris; J44.9 Chronic obstructive pulmonary disease, unspecified; G47.30 Sleep apnea, unspecified; K21.9 Gastro-esophageal reflux disease without esophagitis; Z95.1 Presence of aortocoronary bypass graft
CPT/HCPCS: 93005; 99285; 96374; 36415; 85025; 80048; 71045; 93010; A9270; S0119

== ENCOUNTER 2018-09-07 16:38 | Inpatient (IN) | payer OTHER, MEDICARE ==
--- NOTE | 2018-09-07 18:24 | ER Document Report ---
ED Extremity Problem, Lower - General Chief Complaint: Foot Pain Stated Complaint: TOE PAIN Time Seen by Provider: 09/07/18 18:01 TRAVEL OUTSIDE OF THE [place] 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 - Related Data Allergies/Adverse Reactions: No Known Allergies Allergy (Verified 09/07/18 16:44) Past Medical History - General Information source: Patient - Social History Smoking Status: Unknown if Ever Smoked Chew tobacco use (# tins/day): No Frequency of alcohol use: None Drug Abuse: None Family History: Reviewed & Not Pertinent, CAD Patient has suicidal ideation: No Patient has homicidal ideation: No - Past Medical History Cardiac Medical History: Reports: Hx Congestive Heart Failure, Hx Coronary Artery Disease, Hx Heart Attack - QUADRUPLE BYPASS 2007, HEART MURMUR, Hx Hypercholesterolemia, Hx Hypertension Pulmonary Medical History: Reports: Hx Asthma, Hx COPD, Hx Pneumonia - HX. GUILLAIN-BARRE' SYNDROME, Hx Intubation, Hx Respiratory Failure, Hx Sleep Apnea - On C Pap Neurological Medical History: Reports: Hx Cerebrovascular Accident - 2006 Endocrine Medical History: Reports: Hx Diabetes Mellitus Type 1, Hx Diabetes Mellitus Type 2 Renal/ Medical History: Reports: Hx End Stage Renal Disease, Hx Hemodialysis. Denies: Hx Peritoneal Dialysis GI Medical History: Reports: Hx Gastroesophageal Reflux Disease Psychiatric Medical History: Denies: Hx Depression - anxiety Infectious Medical History: Reports: Hx C-Diff Past Surgical History: Reports: Hx Cardiac Catheterization, Hx Cardiac Surgery - bipass x4, Hx Coronary Artery Bypass Graft - Quadruple bypass 2007, Hx Kidney (Renal Surgery) - RENAL TRANSPLANT, Hx Vascular Surgery - left AV fistual, Other - History peritoneal dialysis catheter placement and removal - Immunizations Immunizations up to date: Yes Hx Diphtheria, Pertussis, Tetanus Vaccination: Yes - UTD Hx Pneumococcal Vaccination: 08/16/16 Review of Systems - Review of Systems -: Yes All other systems reviewed and negative Physical Exam - Vital signs Vitals: Temp Pulse Resp BP Pulse Ox 97.9 F 79 14 153/86 H 97 09/07/18 16:56 09/07/18 16:56 09/07/18 16:56 09/07/18 16:56 09/07/18 16:56 - General General appearance: Appears well In distress: None - HEENT Head: Normocephalic Eyes: Normal Conjunctiva: Normal Cornea: Normal Extraocular movements intact: Yes Eyelashes: Normal Pupils: PERRL - Respiratory Respiratory status: No respiratory distress Chest status: Nontender Breath sounds: Normal Chest palpation: Normal - Cardiovascular Rhythm: Regular Heart sounds: Normal auscultation Murmur: No - Abdominal Inspection: Normal Distension: No distension Tenderness: Nontender - Back Back: Normal - Extremities General upper extremity: Normal inspection, Nontender, Normal strength, Normal temperature General lower extremity: Normal inspection, Nontender, Normal strength, Normal temperature Foot: Other - The right lower extremity at the foot demonstrates a previous amputation of the fifth digit, there is multiple small erosions overlying the toes, the second digit demonstrates an open ulcerated wound actively draining purulent material, there is some swelling and erythema to the proximal midfoot. - Neurological Neuro grossly intact: Yes Cognition: Normal Orientation: AAOx4 Dominic Coma Scale Eye Opening: Spontaneous [place] Coma Scale Verbal: Oriented [place] Coma Scale Motor: Obeys Commands Dominic Coma Scale Total: 15 Speech: Normal Cranial nerves: Normal Cerebellar coordination: Normal Motor strength normal: LUE, RUE, LLE, RLE - Psychological Associated symptoms: Normal affect Course - Re-evaluation Re-evalutation: 09/07/18 23:55 62-year-old male with a previous history of 1/5 digit amputation on the right foot presents from his production grader office for evaluation of a possible infected toe. Examination he is got an open ulcerated wound on the second digit. Have a concern that this patient may be developing osteomyelitis given his clinical examination. We will obtain CBC CMP ESR CRP there is already been x-ray of the foot suggestive of osteomyelitis. Current plan is for this patient undergo initiation of treatment with antibiotics at this time. Have contacted on-call surgical list Dr. Caballero, he agrees to evaluate the patient. We will talk to Dr. 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 Girard for ongoing monitoring in the IMCU. He is currently hemodynamically stable. Dr. Caballero plans to evaluate the patient, recommends further imaging utilizing MRI of the foot. We will plan for this patient to undergo admission, continue monitoring. At the time of admission he was hemodynamically stable and well-appearing. - Vital Signs Vital signs: Temp Pulse Resp BP Pulse Ox 98.3 F 79 16 194/114 H 100 09/07/18 21:25 09/07/18 16:56 09/07/18 22:12 09/07/18 22:12 09/07/18 22:12 - Laboratory Result Diagrams: 09/07/18 20:30 09/07/18 20:30 Laboratory results interpreted by me: 09/07/18 09/07/18 20:30 20:30 RBC 3.94 L Hgb 12.9 L Hct 37.0 L RDW 17.0 H ESR 100 H Potassium 5.4 H BUN 38 H Creatinine 4.11 H Est GFR ( Amer) 18 L Est GFR (Non-Af Amer) 15 L Glucose 219 H Direct Bilirubin 0.6 H AST 67 H Alkaline Phosphatase 173 H C-Reactive Protein 28.9 H Total Protein 9.0 H Discharge - Discharge Clinical Impression: Necrotic toes Osteomyelitis Qualifiers: Osteomyelitis type: unspecified type Osteomyelitis location: unspecified site Qualified Code(s): M86.9 - Osteomyelitis, unspecified Foot pain Qualifiers: Laterality: right Qualified Code(s): M79.671 - Pain in right foot Condition: Stable Disposition: ADMITTED INPATIENT Admitting Provider: Girard Unit Admitted: [facility]
[2018-09-07] MEDS ORDERED: VANCOMYCIN HCL INJ 1000 MG VIAL IV ONE (19:31)
[2018-09-07] MEDS ORDERED: CEFTRIAXONE INJ 1000 MG VIAL IV ONE (19:33)
[2018-09-07 20:42] LABS: ABSOLUTE BASOPHILS # (AUTO) 0.1 10^3/uL (0.0-0.2); ABSOLUTE EOSINOPHILS # (AUTO) 0.1 10^3/uL (0.0-0.6); ABSOLUTE LYMPHOCYTES (AUTO) 2.8 10^3/uL (0.5-4.7); ABSOLUTE MONOCYTES (AUTO) 0.6 10^3/uL (0.1-1.4); ABSOLUTE NEUT (AUTO) 6.2 10^3/uL (1.7-8.2); HEMOGLOBIN 12.9 g/dL (13.5-17.0); LYMPHOCYTES % (AUTO) 28.6 % (13-45); MEAN CORPUSCULAR HEMOGLOBIN 32.7 pg (27.0-33.4); MEAN CORPUSCULAR HGB CONC 34.8 g/dL (32.0-36.0); MEAN CORPUSCULAR VOLUME 94 fl (80-97); PLATELET COUNT 281 10^3/uL (150-450); RED BLOOD COUNT 3.94 10^6/uL (4.35-5.55); SEGMENTED NEUTROPHILS % (AUTO) 63.4 % (42-78); TOTAL CELLS COUNTED % (AUTO) 100 %; WHITE BLOOD COUNT 9.8 10^3/uL (4.0-10.5)
[2018-09-07 21:12] LABS: ALANINE AMINOTRANSFERASE 21 U/L (21-72); ALBUMIN 3.9 g/dL (3.5-5.0); ALKALINE PHOSPHATASE 173 U/L (38-126); ANION GAP 10 (5-19); ASPARTATE AMINO TRANSFERASE 67 U/L (17-59); BILIRUBIN,DIRECT 0.6 mg/dL (0.0-0.4); BILIRUBIN,TOTAL 0.7 mg/dL (0.2-1.3); BLOOD UREA NITROGEN 38 mg/dL (7-20); C-REACTIVE PROTEIN 28.9 mg/L (<10.0); CALCIUM 8.9 mg/dL (8.4-10.2); CARBON DIOXIDE 27 mmol/L (22-30); CHLORIDE 101 mmol/L (98-107); GLUCOSE 219 mg/dL (75-110); POTASSIUM 5.4 mmol/L (3.6-5.0); SODIUM 138.1 mmol/L (137-145)
[2018-09-07 21:19] LABS: ERYTHROCYTE SEDIMENTATION RATE 100 mm/hr (0-20)
[2018-09-07] MEDS ORDERED: IPRATROPIUM/ALBUTEROL 0.5-2.5 MG/3 ML AMPUL NEB PRN (22:28)
[2018-09-07] MEDS ORDERED: ACETAMINOPHEN 325 MG TABLET PO PRN (22:28)
[2018-09-07] MEDS ORDERED: DEXTROSE 40% GEL 15 GM TUBE PO PRN ×2 (22:32)
[2018-09-07] MEDS ORDERED: GLUCAGON,HUMAN RECOMB 1 MG INJ IM PRN (22:32)
[2018-09-07] MEDS ORDERED: DEXTROSE 50%-WATER 25 GM/50 ML DISP.SYRIN IV PRN ×2 (22:32)
[2018-09-07] MEDS ORDERED: HEPARIN SOD (PORCINE) 5,000 UNIT/ML 1 ML SYRINGE SUBCUT ONE (23:15)
[2018-09-07] MEDS ORDERED: LISINOPRIL 5 MG TABLET PO ONE (23:15)
[2018-09-08] MEDS ORDERED: METRONIDAZOLE 500 MG TABLET PO SCH (00:30)
[2018-09-08] MEDS ORDERED: DEXTROSE 50%-WATER 25 GM/50 ML DISP.SYRIN IV PRN ×2 (00:34)
[2018-09-08] MEDS ORDERED: DEXTROSE 40% GEL 15 GM TUBE PO PRN ×2 (00:34)
[2018-09-08] MEDS ORDERED: GLUCAGON,HUMAN RECOMB 1 MG INJ SUBCUT PRN (00:34)
[2018-09-08] MEDS ORDERED: LISINOPRIL 5 MG TABLET ONE (01:21)
[2018-09-08] MEDS ORDERED: METRONIDAZOLE 500 MG TABLET ONE (02:32)
[2018-09-08] MEDS: METRONIDAZOLE 500 MG TABLET PO SCH ×3 (02:40→18:09)
[2018-09-08 05:06] LABS: ABSOLUTE BASOPHILS # (AUTO) 0.1 10^3/uL (0.0-0.2); ABSOLUTE EOSINOPHILS # (AUTO) 0.2 10^3/uL (0.0-0.6); ABSOLUTE LYMPHOCYTES (AUTO) 3.9 10^3/uL (0.5-4.7); ABSOLUTE NEUT (AUTO) 4.7 10^3/uL (1.7-8.2); BASOPHILS % (AUTO) 0.5 % (0-2); EOSINOPHILS % (AUTO) 2.2 % (0-6); HEMATOCRIT 32.2 % (37.9-51.0); LYMPHOCYTES % (AUTO) 39.2 % (13-45); MEAN CORPUSCULAR HEMOGLOBIN 32.2 pg (27.0-33.4); MEAN CORPUSCULAR HGB CONC 34.2 g/dL (32.0-36.0); MEAN CORPUSCULAR VOLUME 94 fl (80-97); MONOCYTES % (AUTO) 10.3 % (3-13); PLATELET COUNT 258 10^3/uL (150-450); RED BLOOD COUNT 3.42 10^6/uL (4.35-5.55); RED CELL DISTRIBUTION WIDTH 16.5 % (11.5-14.0); SEGMENTED NEUTROPHILS % (AUTO) 47.8 % (42-78); TOTAL CELLS COUNTED % (AUTO) 100 %; WHITE BLOOD COUNT 9.8 10^3/uL (4.0-10.5)
[2018-09-08 05:30] LABS: ANION GAP 13 (5-19); BLOOD UREA NITROGEN 46 mg/dL (7-20); CALCIUM 8.8 mg/dL (8.4-10.2); CARBON DIOXIDE 25 mmol/L (22-30); CHLORIDE 101 mmol/L (98-107); GLUCOSE 293 mg/dL (75-110); POTASSIUM 5.5 mmol/L (3.6-5.0); SODIUM 139.1 mmol/L (137-145)
[2018-09-08] MEDS: PANTOPRAZOLE SODIUM 40 MG VIAL IV SCH (05:59)
[2018-09-08] MEDS ORDERED: HEPARIN SOD (PORCINE) 5,000 UNIT/ML 1 ML SYRINGE SUBCUT SCH (06:00)
[2018-09-08] MEDS ORDERED: LANSOPRAZOLE 15 MG TAB.RAP.DR PO SCH (06:00)
[2018-09-08] MEDS ORDERED: VANCOMYCIN HCL 1,250 MG in DEXTROSE 5%-WATER 250 ML IV ONE (09:30)
[2018-09-08] MEDS ORDERED: RANITIDINE HCL SYRUP 150 MG/10 ML UDCUP PO SCH (10:00)
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
--- NOTE | 2018-09-08 12:04 | PDOC H&P ---
History of Present Illness Admission Date/PCP: 09/07/18 22:23 KEEGAN MONTENEGRO MD Patient complains of: Right foot infection History of Present Illness: KATHRYN HURLEY is a 62 year old male This is a 62-year-old male with a significant history of the end-stage renal disease history of the renal transplant status post failed currently on hemodialysis history of the type 2 diabetes history of the peripheral vascular disease and a history of coronary artery disease and history of the Guillain- Ventura syndrome and multiple other comorbidity basically is seen by the foot doctor for the right foot infections and according to the foot doctor is getting worse and necrotic and the need amputations and sent to the emergency departments Patient have a significant history of the foot ulcer seen by the wound care clinic patient's no fever no chills no chest pain no short of breath no other complaints Since seen by the general surgery scheduled for the surgery today Past Medical History Cardiac Medical History: Reports: Congestive Heart Failure, Coronary Artery Disease, Myocardial Infarction - QUADRUPLE BYPASS 2007, HEART MURMUR, Hyperlipidema, Hypertension Pulmonary Medical History: Reports: Asthma, Chronic Obstructive Pulmonary Disease (COPD), Intubation, Pneumonia - HX. GUILLAIN-BARRE' SYNDROME, Respiratory Failure, Sleep Apnea - On C Pap Endocrine Medical History: Reports: Diabetes Mellitus Type 1, Diabetes Mellitus Type 2 Renal/ Medical History: Reports: End Stage Renal Disease GI Medical History: Reports: Gastroesophageal Reflux Disease Psychiatric Medical History: Denies: Depression - anxiety Hematology: Reports: Anemia Infectious Medical History: Reports: Clostridium Difficile Past Surgical History Past Surgical History: Reports: Cardiac Catheterization, Coronary Artery Bypass Graft - Quadruple bypass 2007, Vascular Surgery - left AV fistual, Other - History peritoneal dialysis catheter placement and removal Social History Information Source: Patient Smoking Status: Former Smoker Cigarettes Packs Per Day: 1 Number of Years Smokin Last Time Smoked: 2007 Frequency of Alcohol Use: None Hx Recreational Drug Use: No Drugs: None Hx Prescription Drug Abuse: No - Advance Directive Resuscitation Status: Full Code Family History Family History: Reviewed & Not Pertinent, CAD Parental Family History Reviewed: Yes Children Family History Reviewed: Yes Sibling(s) Family History Reviewed.: Yes Medication/Allergy Allergies/Adverse Reactions: No Known Allergies Allergy (Verified 09/07/18 16:44) Review of Systems Constitutional: ABSENT: chills, fever(s), headache(s), weight gain, weight loss Eyes: ABSENT: visual disturbances Ears: ABSENT: hearing changes Cardiovascular: ABSENT: chest pain, dyspnea on exertion, edema, orthropnea, palpitations Respiratory: ABSENT: cough, hemoptysis Gastrointestinal: ABSENT: abdominal pain, constipation, diarrhea, hematemesis, hematochezia, nausea, vomiting Genitourinary: ABSENT: dysuria, hematuria Musculoskeletal: ABSENT: joint swelling Integumentary: ABSENT: rash, wounds Neurological: ABSENT: abnormal gait, abnormal speech, confusion, dizziness, focal weakness, syncope Psychiatric: ABSENT: anxiety, depression, homidical ideation, suicidal ideation Endocrine: ABSENT: cold intolerance, heat intolerance, menstrual abnormalities, polydipsia, polyuria Hematologic/Lymphatic: ABSENT: easy bleeding, easy bruising, lymphadenopathy Physical Exam Vital Signs: Temp Pulse Resp BP Pulse Ox 98.4 F 81 16 186/91 H 100 09/08/18 07:41 09/08/18 07:41 09/08/18 07:41 09/08/18 07:41 09/08/18 07:41 Intake & Output 09/07/18 09/08/18 09/09/18 06:59 06:59 06:59 Output Total 0 Balance 0 Weight 69 kg General appearance: PRESENT: no acute distress, well-developed, well-nourished Head exam: PRESENT: atraumatic, normocephalic Eye exam: PRESENT: conjunctiva pink, EOMI, PERRLA. ABSENT: scleral icterus Ear exam: PRESENT: normal external ear exam Mouth exam: PRESENT: moist, tongue midline Neck exam: PRESENT: full ROM. ABSENT: carotid bruit, JVD, lymphadenopathy, thyromegaly Respiratory exam: PRESENT: clear to auscultation jolie Cardiovascular exam: PRESENT: RRR. ABSENT: diastolic murmur, rubs, systolic murmur Pulses: PRESENT: normal dorsalis pedis pul, +2 pedal pulses bilateral Vascular exam: PRESENT: normal capillary refill GI/Abdominal exam: PRESENT: normal bowel sounds, soft. ABSENT: distended, guarding, mass, organolmegaly, rebound, tenderness Rectal exam: PRESENT: deferred Additional comments: Right foot some necrotic changes on the toe Both side peripheral pulses reduce Neurological exam: PRESENT: alert, awake, oriented to person, oriented to place , oriented to time, oriented to situation, CN II-XII grossly intact. ABSENT: motor sensory deficit Psychiatric exam: PRESENT: appropriate affect, normal mood. ABSENT: homicidal ideation, suicidal ideation Skin exam: PRESENT: dry, intact, warm. ABSENT: cyanosis, rash Results Laboratory Results: 09/08/18 04:26 09/08/18 04:26 09/08/18 09/08/18 04:26 04:26 WBC 9.8 RBC 3.42 L Hgb 11.0 L Hct 32.2 L MCV 94 MCH 32.2 MCHC 34.2 RDW 16.5 H Plt Count 258 Seg Neutrophils % 47.8 Lymphocytes % 39.2 Monocytes % 10.3 Eosinophils % 2.2 Basophils % 0.5 Absolute Neutrophils 4.7 Absolute Lymphocytes 3.9 Absolute Monocytes 1.0 Absolute Eosinophils 0.2 Absolute Basophils 0.1 Sodium 139.1 Potassium 5.5 H Chloride 101 Carbon Dioxide 25 Anion Gap 13 BUN 46 H Creatinine 4.60 H Est GFR ( Amer) 16 L Est GFR (Non-Af Amer) 13 L Glucose 293 H Calcium 8.8 Magnesium 2.0 Assessment & Plan - Diagnosis (1) Necrotic toes Is this a current diagnosis for this admission?: Yes Plan: Consult the surgery (2) Osteomyelitis Qualifiers: Osteomyelitis type: other acute Osteomyelitis location: foot Laterality: right Qualified Code(s): M86.171 - Other acute osteomyelitis, right ankle and foot Is this a current diagnosis for this admission?: Yes Plan: Scheduled for the MRI of the foot (3) Cerebrovascular disease Is this a current diagnosis for this admission?: Yes (4) Coronary artery disease Qualifiers: Coronary Disease-Associated Artery/Lesion type: unspecified vessel or lesion type Is this a current diagnosis for this admission?: Yes Plan: Patient has significant coronary artery disease we will consult the cardiology for the cardiac clearance (5) Diabetes mellitus, type II Qualifiers: Diabetes mellitus nursing home insulin use: with nursing home use Diabetes mellitus complication status: with other specified complication Qualified Code (s): E11.69 - Type 2 diabetes mellitus with other specified complication; Z79.4 - detention (current) use of insulin; 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 ; Z79.4 - detention (current) use of insulin; Z79.4 - detention (current) use of insulin Is this a current diagnosis for this admission?: Yes Plan: Continues to sliding-scale (6) Dialysis patient Is this a current diagnosis for this admission?: Yes (7) ESRD on hemodialysis Is this a current diagnosis for this admission?: Yes Plan: Consult to nephrology for ongoing dialysis (8) Gastroesophageal reflux disease Qualifiers: Esophagitis presence: esophagitis presence not specified Qualified Code(s) : K21.9 - Gastro-esophageal reflux disease without esophagitis Is this a current diagnosis for this admission?: Yes Plan: Continues the Pepcid (9) History of Clostridium difficile colitis Is this a current diagnosis for this admission?: Yes Plan: Will continues to monitor while patient is currently on antibiotics (10) History of kidney transplant Is this a current diagnosis for this admission?: Yes (11) Hyperlipidemia Qualifiers: Hyperlipidemia type: unspecified Qualified Code(s): E78.5 - Hyperlipidemia , unspecified Is this a current diagnosis for this admission?: Yes (12) Hypertension Qualifiers: Hypertension type: essential hypertension Qualified Code(s): I10 - Essential (primary) hypertension Is this a current diagnosis for this admission?: Yes - Time Time Spent: 50 to 70 Minutes Medications reviewed and adjusted accordingly: Yes Anticipated discharge: Home Within: Other - Inpatient Certification Based on my medical assessment, after consideration of the patient's comorbidities, presenting symptoms, or acuity I expect that the services needed warrant INPATIENT care.: Yes I certify that my determination is in accordance with my understanding of Medicare's requirements for reasonable and necessary INPATIENT services [42 CFR 412.3e].: Yes Medical Necessity: Need for IV Antibiotics, Need for Surgery 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
[2018-09-08] MEDS: ASPIRIN 81 MG TABLET, ENT COATED PO SCH (12:20)
[2018-09-08] MEDS: TAMSULOSIN HCL 0.4 MG CAP.SR.24H PO SCH (12:28)
[2018-09-08] MEDS: PREDNISONE 5 MG TABLET PO SCH (12:28)
[2018-09-08] MEDS: DOCUSATE SODIUM 100 MG CAPSULE PO SCH ×2 (12:28→18:09)
[2018-09-08] MEDS: ISOSORBIDE MONONITRATE 30 MG TAB.ER.24H PO SCH (12:28)
[2018-09-08] MEDS ORDERED: KETAMINE HCL INJ 500 MG/10 ML VIAL ONE (15:04)
[2018-09-08] MEDS ORDERED: FENTANYL CITRATE INJ/PF 100 MCG/2 ML AMPUL ONE (15:04)
[2018-09-08] MEDS ORDERED: ONDANSETRON HCL INJ/PF 4 MG/2 ML SDV ONE (15:04)
[2018-09-08] MEDS ORDERED: LIDOCAINE 2% INJ-PF (20 MG/ML) 10 ML AMPUL ONE (15:04)
[2018-09-08] MEDS ORDERED: MIDAZOLAM 2 MG/2 ML INJ ONE (15:04)
[2018-09-08] MEDS ORDERED: PROPOFOL INJ 200 MG/20 ML VIAL IV ONE ×2 (15:05)
[2018-09-08] MEDS ORDERED: ACETAMINOPHEN 0 MG/0 ML RTUPB IV ONE (15:05)
--- NOTE | 2018-09-08 15:15 | RADIOLOGY REPORT (SQ) ---
EXAM DESCRIPTION: MRI RT LOWER EXTREMITY WITHOUT COMPLETED DATE/TIME: 09/08/2018 2:48 pm REASON FOR STUDY: r/o osteo of right 2nd metatarsal COMPARISON: Right foot films 09/07/2018 TECHNIQUE: Multiplanar imaging of the right foot to include fat and fluid sensitive sequences. LIMITATIONS: None. FINDINGS: An ulcer is present along the dorsal aspect of the right 2nd toe near the PIP joint. Deep to the ulcer, profound deossification of the 2nd toe proximal and middle phalanges is present, with cortical bone resorption and diffuse soft tissue fibrosis likely from chronic osteomyelitis. There is an ulcer along the plantar and lateral right foot near the 5th metatarsal head, ulcers about 1 cm in diameter. There has been profound bony resorption of the 5th toe phalanges and distal half of the 5th metatarsal with adjacent dense soft tissue fibrosis. Small amount of marrow edema in the mid 3rd of the right 5th metatarsal worrisome for osteomyelitis. No soft tissue abscess is identified. There is diffuse edema throughout the dorsal forefoot and [place] a in the deep tissues along the intra osseous muscles and flexor digitorum brevis from cellulitis. IMPRESSION: Osteomyelitis in the 2nd and 5th digits as above TECHNICAL DOCUMENTATION: JOB ID: [id number] [employer]- All Rights Reserved Reading location - IP/workstation name: [email or web address]
--- NOTE | 2018-09-08 16:34 | PDOC PROGRESS REPORT ---
Subjective Progress Note for:: 09/08/18 Reason For Visit: FOOT INFECTION Physical Exam Vital Signs: Temp Pulse Resp BP Pulse Ox 98.4 F 83 17 145/64 H 100 09/08/18 12:23 09/08/18 14:00 09/08/18 13:48 09/08/18 12:23 09/08/18 13:48 Intake & Output 09/07/18 09/08/18 09/09/18 06:59 06:59 06:59 Output Total 0 2600 Balance 0 -2600 Weight 69 kg General appearance: PRESENT: no acute distress Musculoskeletal exam: PRESENT: other - Right foot= diffuse swelling toes to ankle, erosion upper aspect 2nd toe Results Laboratory Results: 09/08/18 04:26 09/08/18 04:26 09/08/18 09/08/18 04:26 04:26 WBC 9.8 RBC 3.42 L Hgb 11.0 L Hct 32.2 L MCV 94 MCH 32.2 MCHC 34.2 RDW 16.5 H Plt Count 258 Seg Neutrophils % 47.8 Lymphocytes % 39.2 Monocytes % 10.3 Eosinophils % 2.2 Basophils % 0.5 Absolute Neutrophils 4.7 Absolute Lymphocytes 3.9 Absolute Monocytes 1.0 Absolute Eosinophils 0.2 Absolute Basophils 0.1 Sodium 139.1 Potassium 5.5 H Chloride 101 Carbon Dioxide 25 Anion Gap 13 BUN 46 H Creatinine 4.60 H Est GFR ( Amer) 16 L Est GFR (Non-Af Amer) 13 L Glucose 293 H Calcium 8.8 Magnesium 2.0 Impressions: Lower Extremity MRI 09/08/18 00:00 IMPRESSION: Osteomyelitis in the 2nd and 5th digits as above Assessment & Plan - Diagnosis (1) Necrotic toes Is this a current diagnosis for this admission?: Yes (2) Osteomyelitis Qualifiers: Osteomyelitis type: chronic, with draining sinus Osteomyelitis location: foot Laterality: right Qualified Code(s): M86.471 - Chronic osteomyelitis with draining sinus, right ankle and foot Is this a current diagnosis for this admission?: Yes - Plan Summary Plan Summary: A/ Right 2nd and multiple metatarsal bone osteomyelitis Patient underwent dialysis today Patient evaluated by Cardiology: considered average to higher than normal risk, but adequate candidate Heparin sc on hold Hb > 9 as per Cardiology Patient on PPI as per Cardiology P/ Due to the presence of extensive forefoot osteomyelitis, poor circulation, multiple morbid cofactors (IDDM, ESRD on HD, severe CAD) and the patient bedridden status, my recommendation is to perform an above knee amputation (AKA) . The patient wishes to think about the procedure. In the meantime, I will schedule the patient for right above knee ambulation for tomorrow. Procedure, risks, benefits, complications have been explained to the patient and his , their questions were answered, and he decided to wait until tomorrow. NPO after MN Surgical consent
[2018-09-08] MEDS ORDERED: CEFTRIAXONE 1 GM/D5W RTU 1 GM/50 ML RTUPB IV SCH (18:00)
[2018-09-08] MEDS: CEFTRIAXONE SODIUM 1,000 MG in DEXTROSE 5%-WATER 50 ML IV SCH (18:10)
[2018-09-08] MEDS: VANCOMYCIN HCL 750 MG in DEXTROSE 5%-WATER 250 ML IV SCH (19:00)
--- NOTE | 2018-09-08 19:23 | XCELERA REPORT ---
[address] [address] Transthoracic Echocardiogram Report Name: KATHRYN HURLEY Age: 62 yrs Gender: Male : 1955 Patient Status: Inpatient Patient Location: [address] [place] [address] Study Date: 09/08/2018 01:05 PM Height: 67 in Weight: 152 lb BSA: 1.8 m2 Procedure: A complete two-dimensional transthoracic echocardiogram was performed (2D, M-mode, spectral and color flow Doppler). The study was technically adequate with some images being suboptimal in quality. Reason For Study: CAD Ordering Physician: ZOE GROVE Performed By: Sincere Grider Interpretation Summary The left ventricular ejection fraction is within normal limits. There is moderate concentric left ventricular hypertrophy. The left ventricle is grossly normal size. Doppler measurements suggest reversible restrictive left ventricular relaxation, which is associated with grade III/IV or moderate diastolic dysfunction Wall motion cannot be accurately commented on, but no definite regional wall motion abnormalities noted. The right ventricular systolic function is normal. The right atrium is normal in size The left atrium is borderline dilated. There is a trace to mild amount of mitral regurgitation There is no mitral valve stenosis. There is a trace amount of aortic regurgitation There is no aortic valve stenosis There is a trace or physiologic amount of tricuspid regurgitation Tricuspid regurgitation jet envelope not well defined to measure RV systolic pressure accurately. The aortic root is not well visualized but is probably normal size. The inferior vena cava appeared small and collapsed with respiration (RAP 0-5 mmHg) There is no pericardial effusion. MMode/2D Measurements & Calculations RVDd: 2.4 cm LVIDd: 3.8 cm FS: 30.8 % Ao root diam: 3.2 cm IVSd: 1.9 cm LVIDs: 2.6 cm EDV(Teich): 61.8 ml Ao root area: 8.0 cm2 LVPWd: 1.1 cm ESV(Teich): 25.2 ml LA dimension: 3.4 cm EF(Teich): 59.2 % Doppler Measurements & Calculations MV E max luis eduardo: MV P1/2t max luis eduardo: Ao V2 max: LV V1 max P.9 cm/sec 160.2 cm/sec 153.6 cm/sec 2.9 mmHg MV P1/2t: 49.5 msec Ao max PG: LV V1 max: MVA(P1/2t): 4.4 cm2 9.4 mmHg 85.3 cm/sec MV dec slope: 947.7 cm/sec2 MV dec time: 0.15 sec PA V2 max: MV P1/2t-pr_phl: 141.2 cm/sec 49.5 msec PA max P.0 mmHg Left Ventricle The left ventricle is grossly normal size. There is moderate concentric left ventricular hypertrophy. The left ventricular ejection fraction is within normal limits. Doppler measurements suggest reversible restrictive left ventricular relaxation, which is associated with grade III/IV or moderate diastolic dysfunction. Wall motion cannot be accurately commented on, but no definite regional wall motion abnormalities noted. Right Ventricle The right ventricle is grossly normal size. There is normal right ventricular wall thickness. The right ventricular systolic function is normal. Atria The right atrium is normal in size. The left atrium is borderline dilated. Interarterial septum not well visualized and not well dopplered. Cannot comment on ASD/PFO presence. Mitral Valve There is mild mitral leaflet calcification. There is no mitral valve stenosis. There is a trace to mild amount of mitral regurgitation. Aortic Valve The aortic valve opens well. There is no aortic valve stenosis. There is a trace amount of aortic regurgitation. Tricuspid Valve The tricuspid valve is not well visualized secondary to technical limitations. There is no tricuspid stenosis. There is a trace or physiologic amount of tricuspid regurgitation. Tricuspid regurgitation jet envelope not well defined to measure RV systolic pressure accurately. Pulmonic Valve The pulmonic valve is not well visualized. Great Vessels The aortic root is not well visualized but is probably normal size. The inferior vena cava appeared small and collapsed with respiration (RAP 0-5 mmHg). Effusions There is no pericardial effusion. : ZOE GROVE > Zoe Grove
[2018-09-08] MEDS: ONDANSETRON HCL INJ/PF 4 MG/2 ML SDV IV PRN (19:44)
[2018-09-08] MEDS: LISINOPRIL 5 MG TABLET PO SCH (21:55)
--- NOTE | 2018-09-08 22:41 | EKG REPORT ---
SEVERITY:- ABNORMAL ECG - SINUS RHYTHM FIRST DEGREE AV BLOCK PROBABLE LEFT ATRIAL ABNORMALITY LVH WITH SECONDARY REPOLARIZATION ABNORMALITY INFERIOR INFARCT, OLD ANTEROLATERAL INFARCT, RECENT PROLONGED QT INTERVAL : Confirmed by: Zoe Lazo 08-Sep-2018 22:40:51
[2018-09-08] MEDS: INSULIN LISPRO 100 UNIT/ML 3 ML VIAL SUBCUT PRN (23:29)
[2018-09-09] MEDS: METRONIDAZOLE 500 MG TABLET PO SCH ×3 (02:59→18:34)
[2018-09-09 05:03] LABS: ABSOLUTE BASOPHILS # (AUTO) 0.1 10^3/uL (0.0-0.2); ABSOLUTE EOSINOPHILS # (AUTO) 0.3 10^3/uL (0.0-0.6); ABSOLUTE LYMPHOCYTES (AUTO) 3.7 10^3/uL (0.5-4.7); ABSOLUTE NEUT (AUTO) 3.7 10^3/uL (1.7-8.2); BASOPHILS % (AUTO) 0.7 % (0-2); EOSINOPHILS % (AUTO) 3.2 % (0-6); HEMATOCRIT 34.1 % (37.9-51.0); HEMOGLOBIN 11.4 g/dL (13.5-17.0); LYMPHOCYTES % (AUTO) 42.3 % (13-45); MEAN CORPUSCULAR HEMOGLOBIN 32.1 pg (27.0-33.4); MEAN CORPUSCULAR HGB CONC 33.4 g/dL (32.0-36.0); MEAN CORPUSCULAR VOLUME 96 fl (80-97); MONOCYTES % (AUTO) 11.4 % (3-13); PLATELET COUNT 269 10^3/uL (150-450); RED BLOOD COUNT 3.54 10^6/uL (4.35-5.55); RED CELL DISTRIBUTION WIDTH 16.6 % (11.5-14.0); SEGMENTED NEUTROPHILS % (AUTO) 42.4 % (42-78); TOTAL CELLS COUNTED % (AUTO) 100 %; WHITE BLOOD COUNT 8.7 10^3/uL (4.0-10.5)
[2018-09-09] MEDS: PANTOPRAZOLE SODIUM 40 MG VIAL IV SCH (05:51)
--- NOTE | 2018-09-09 08:01 | PDOC PROGRESS REPORT ---
Subjective Progress Note for:: 09/09/18 Subjective:: This is a 62-year-old male with extensive cysts of the toes and osteomyelitis of the right foot. The patient does not walk. He denies fevers, chills, chest pain, shortness of breath, headache, dizziness, abdominal pain, nausea, vomiting. He does report malaise and fatigue. He denies pain in the foot. Reason For Visit: FOOT INFECTION Physical Exam Vital Signs: Temp Pulse Resp BP Pulse Ox 97.7 F 83 16 175/77 H 98 09/09/18 03:03 09/09/18 03:03 09/09/18 03:03 09/09/18 03:03 09/09/18 03:03 Intake & Output 09/08/18 09/09/18 09/10/18 06:59 06:59 06:59 Intake Total 50 Output Total 0 2600 Balance 0 -2550 Weight 69 kg 68.6 kg General appearance: PRESENT: no acute distress Head exam: PRESENT: atraumatic, normocephalic Eye exam: PRESENT: EOMI, PERRLA. ABSENT: scleral icterus Mouth exam: PRESENT: neck supple Neck exam: ABSENT: meningismus, tenderness, thyromegaly, tracheal deviation Respiratory exam: PRESENT: clear to auscultation jolie. ABSENT: chest wall tenderness Cardiovascular exam: PRESENT: RRR Pulses: PRESENT: normal radial pulses GI/Abdominal exam: PRESENT: soft. ABSENT: distended, guarding, tenderness Extremities exam: PRESENT: other - Atrophy of bilateral lower extremities below the knee. Necrotic toes of the right foot with ulcerations on the plantar surface of the foot. Neurological exam: PRESENT: alert, awake, oriented to person, oriented to place , oriented to time, oriented to situation, CN II-XII grossly intact Psychiatric exam: ABSENT: agitated, anxious, depressed Focused psych exam: ABSENT: delusional Skin exam: ABSENT: jaundice, rash Results Laboratory Results: 09/09/18 04:34 09/08/18 04:26 09/09/18 09/09/18 04:34 04:34 WBC 8.7 RBC 3.54 L Hgb 11.4 L Hct 34.1 L MCV 96 MCH 32.1 MCHC 33.4 RDW 16.6 H Plt Count 269 Seg Neutrophils % 42.4 Lymphocytes % 42.3 Monocytes % 11.4 Eosinophils % 3.2 Basophils % 0.7 Absolute Neutrophils 3.7 Absolute Lymphocytes 3.7 Absolute Monocytes 1.0 Absolute Eosinophils 0.3 Absolute Basophils 0.1 Magnesium 1.8 Impressions: Lower Extremity MRI 09/08/18 00:00 IMPRESSION: Osteomyelitis in the 2nd and 5th digits as above Assessment & Plan - Diagnosis (1) Necrotic toes Is this a current diagnosis for this admission?: Yes (2) Osteomyelitis Qualifiers: Osteomyelitis type: chronic, with draining sinus Osteomyelitis location: foot Laterality: right Qualified Code(s): M86.471 - Chronic osteomyelitis with draining sinus, right ankle and foot Is this a current diagnosis for this admission?: Yes - Plan Summary Plan Summary: This is a 62-year-old male with extensive osteomyelitis and necrosis of the right foot. The patient will require amputation. I have discussed with him the level of amputation at length. Due to his nonambulatory status, I have recommended above-knee amputation. The patient is still reluctant to undergo the operation. He feels like he "needs more time to think about everything". I will allow the patient to eat today. I will defer surgery until the patient is willing to consent. Will follow.
--- NOTE | 2018-09-09 09:13 | EKG REPORT ---
SEVERITY:- ABNORMAL ECG - SINUS RHYTHM FIRST DEGREE AV BLOCK PROBABLE LEFT ATRIAL ABNORMALITY LEFT VENTRICULAR HYPERTROPHY INFERIOR INFARCT, OLD ANTEROLATERAL INFARCT, RECENT BORDERLINE PROLONGED QT INTERVAL : Confirmed by: Zoe Lazo 09-Sep-2018 09:12:19
[2018-09-09 10:06] LABS: ANION GAP 16 (5-19); BLOOD UREA NITROGEN 29 mg/dL (7-20); CALCIUM 8.7 mg/dL (8.4-10.2); CARBON DIOXIDE 26 mmol/L (22-30); CHLORIDE 102 mmol/L (98-107); GLUCOSE 209 mg/dL (75-110); SODIUM 143.9 mmol/L (137-145)
[2018-09-09] MEDS: ISOSORBIDE MONONITRATE 30 MG TAB.ER.24H PO SCH (10:09)
[2018-09-09] MEDS: ASPIRIN 81 MG TABLET, ENT COATED PO SCH (10:09)
[2018-09-09] MEDS: TAMSULOSIN HCL 0.4 MG CAP.SR.24H PO SCH (10:09)
[2018-09-09] MEDS: DOCUSATE SODIUM 100 MG CAPSULE PO SCH ×2 (10:09→18:34)
[2018-09-09] MEDS: PREDNISONE 5 MG TABLET PO SCH (10:09)
[2018-09-09] MEDS: INSULIN LISPRO 100 UNIT/ML 3 ML VIAL SUBCUT PRN ×4 (10:11→21:08)
--- NOTE | 2018-09-09 11:58 | PDOC PROGRESS REPORT ---
Subjective Progress Note for:: 09/09/18 Subjective:: Patient is currently doing fair Patient had MRI of the Lower extremity was done with suggest osteomyelitis surgery suggest the above-knee amputations Patient seen by the cardiology currently stable Seen by the nephrology Very extensive discussed with the patient and the regarding the patient's current conditions patients at this point need an above-knee amputation surgery patient still want to think about it Patient is currently afebrile Denied any chest pain denied any shortness of the breath Reason For Visit: FOOT INFECTION Physical Exam Vital Signs: Temp Pulse Resp BP Pulse Ox 97.7 F 83 16 175/77 H 98 09/09/18 03:03 09/09/18 03:03 09/09/18 03:03 09/09/18 03:03 09/09/18 03:03 Intake & Output 09/08/18 09/09/18 09/10/18 06:59 06:59 06:59 Intake Total 50 250 Output Total 0 2600 Balance 0 -2550 250 Weight 69 kg 68.6 kg General appearance: PRESENT: no acute distress, well-developed, well-nourished Head exam: PRESENT: atraumatic, normocephalic Eye exam: PRESENT: conjunctiva pink, EOMI, PERRLA. ABSENT: scleral icterus Ear exam: PRESENT: normal external ear exam Mouth exam: PRESENT: moist, tongue midline Neck exam: PRESENT: full ROM. ABSENT: carotid bruit, JVD, lymphadenopathy, thyromegaly Respiratory exam: PRESENT: clear to auscultation jolie Cardiovascular exam: PRESENT: RRR. ABSENT: diastolic murmur, rubs, systolic murmur Pulses: PRESENT: normal dorsalis pedis pul, +2 pedal pulses bilateral Vascular exam: PRESENT: normal capillary refill GI/Abdominal exam: PRESENT: normal bowel sounds, soft. ABSENT: distended, guarding, mass, organolmegaly, rebound, tenderness Rectal exam: PRESENT: deferred Additional comments: Right foot dressing is intact with necrotic tissues Neurological exam: PRESENT: alert, awake, oriented to person, oriented to place , oriented to time, oriented to situation, CN II-XII grossly intact. ABSENT: motor sensory deficit Psychiatric exam: PRESENT: appropriate affect, normal mood. ABSENT: homicidal ideation, suicidal ideation Skin exam: PRESENT: dry, intact, warm. ABSENT: cyanosis, rash Results Laboratory Results: 09/09/18 04:34 09/09/18 04:34 09/09/18 09/09/18 09/09/18 04:34 04:34 04:34 WBC 8.7 RBC 3.54 L Hgb 11.4 L Hct 34.1 L MCV 96 MCH 32.1 MCHC 33.4 RDW 16.6 H Plt Count 269 Seg Neutrophils % 42.4 Lymphocytes % 42.3 Monocytes % 11.4 Eosinophils % 3.2 Basophils % 0.7 Absolute Neutrophils 3.7 Absolute Lymphocytes 3.7 Absolute Monocytes 1.0 Absolute Eosinophils 0.3 Absolute Basophils 0.1 Sodium 143.9 Potassium 5.0 Chloride 102 Carbon Dioxide 26 Anion Gap 16 BUN 29 H Creatinine 3.68 H Est GFR ( Amer) 20 L Est GFR (Non-Af Amer) 17 L Glucose 209 H Calcium 8.7 Magnesium 1.8 Impressions: Lower Extremity MRI 09/08/18 00:00 IMPRESSION: Osteomyelitis in the 2nd and 5th digits as above Assessment & Plan - Diagnosis (1) Necrotic toes Is this a current diagnosis for this admission?: Yes Plan: Surgery suggest the patients need a below-knee amputations patient and the family is thinking right now (2) Osteomyelitis Qualifiers: Osteomyelitis type: chronic, with draining sinus Osteomyelitis location: foot Laterality: right Qualified Code(s): M86.471 - Chronic osteomyelitis with draining sinus, right ankle and foot Is this a current diagnosis for this admission?: Yes Plan: Scheduled for the MRI of the foot (3) Cerebrovascular disease Is this a current diagnosis for this admission?: Yes (4) Coronary artery disease Qualifiers: Coronary Disease-Associated Artery/Lesion type: unspecified vessel or lesion type Is this a current diagnosis for this admission?: Yes Plan: Patient's echocardiogram is stable seen by the client solutions specialist patient stable for the surgery (5) Diabetes mellitus, type II Qualifiers: Diabetes mellitus meterman insulin use: with meterman use Diabetes mellitus complication status: with other specified complication Qualified Code (s): E11.69 - Type 2 diabetes mellitus with other specified complication; Z79.4 - terminal system operator (current) use of insulin; Z79.4 - terminal system operator (current) use of insulin ; Z79.4 - care home (current) use of insulin; Z79.4 - terminal system operator (current) use of insulin Is this a current diagnosis for this admission?: Yes Plan: Continues to sliding-scale (6) Dialysis patient Is this a current diagnosis for this admission?: Yes (7) ESRD on hemodialysis Is this a current diagnosis for this admission?: Yes Plan: Consult to nephrology for ongoing dialysis (8) Gastroesophageal reflux disease Qualifiers: Esophagitis presence: esophagitis presence not specified Qualified Code(s) : K21.9 - Gastro-esophageal reflux disease without esophagitis Is this a current diagnosis for this admission?: Yes Plan: Continues the Pepcid (9) History of Clostridium difficile colitis Is this a current diagnosis for this admission?: Yes (10) History of kidney transplant Is this a current diagnosis for this admission?: Yes (11) Hyperlipidemia Qualifiers: Hyperlipidemia type: unspecified Qualified Code(s): E78.5 - Hyperlipidemia , unspecified Is this a current diagnosis for this admission?: Yes (12) Hypertension Qualifiers: Hypertension type: essential hypertension Qualified Code(s): I10 - Essential (primary) hypertension Is this a current diagnosis for this admission?: Yes Plan: Use of as needed hydralazine - Time Time Spent with patient: 15-24 minutes Medications reviewed and adjusted accordingly: Yes Anticipated discharge: Other Within: Other - Inpatient Certification Based on my medical assessment, after consideration of the patient's comorbidities, presenting symptoms, or acuity I expect that the services needed warrant INPATIENT care.: Yes I certify that my determination is in accordance with my understanding of Medicare's requirements for reasonable and necessary INPATIENT services [42 CFR 412.3e].: Yes Medical Necessity: Need Close Monitoring Due to Risk of Patient Decompensation, Need for IV Antibiotics, Need for Surgery Post Hospital Care: D/C [facility] Documentation - Plan Summary Plan Summary: Discussed with the patient and the about the patient's current conditions discussed about that the surgery suggest the patient neurosurgery patient seen by the cardiology nephrology patients and the family think about the surgery
--- NOTE | 2018-09-09 14:37 | PDOC PROGRESS REPORT ---
Subjective Progress Note for:: 09/09/18 Subjective:: Patient was sitting up in bed when he was examined. At the time he had no complaints. He denied chest pain, SOB, n/v/d/c or fevers. He was recently told that he would need an above the knee amputation according to his MRI. At this time he is still thinking about his options. Reason For Visit: FOOT INFECTION Physical Exam Vital Signs: Temp Pulse Resp BP Pulse Ox 98.5 F 81 16 164/66 H 98 09/09/18 10:59 09/09/18 13:46 09/09/18 13:46 09/09/18 10:59 09/09/18 13:46 Intake & Output 09/08/18 09/09/18 09/10/18 06:59 06:59 06:59 Intake Total 50 250 Output Total 0 2600 Balance 0 -2550 250 Weight 69 kg 68.6 kg General appearance: PRESENT: no acute distress, well-developed, well-nourished Mouth exam: PRESENT: moist, neck supple Neck exam: PRESENT: full ROM. ABSENT: JVD Respiratory exam: PRESENT: clear to auscultation jolie. ABSENT: crackles, rales, rhonchi, wheezes Cardiovascular exam: PRESENT: +S1, +S2, systolic murmur GI/Abdominal exam: PRESENT: normal bowel sounds, soft. ABSENT: organomegaly, tenderness Extremities exam: PRESENT: tenderness. ABSENT: pedal edema, +1 edema, +2 edema Musculoskeletal exam: PRESENT: tenderness. ABSENT: normal inspection Neurological exam: PRESENT: alert, awake, oriented to person, oriented to place , oriented to time, oriented to situation Skin exam: PRESENT: dry, erythema, warm. ABSENT: intact Results Laboratory Results: 09/09/18 04:34 09/09/18 04:34 09/09/18 09/09/18 09/09/18 04:34 04:34 04:34 WBC 8.7 RBC 3.54 L Hgb 11.4 L Hct 34.1 L MCV 96 MCH 32.1 MCHC 33.4 RDW 16.6 H Plt Count 269 Seg Neutrophils % 42.4 Lymphocytes % 42.3 Monocytes % 11.4 Eosinophils % 3.2 Basophils % 0.7 Absolute Neutrophils 3.7 Absolute Lymphocytes 3.7 Absolute Monocytes 1.0 Absolute Eosinophils 0.3 Absolute Basophils 0.1 Sodium 143.9 Potassium 5.0 Chloride 102 Carbon Dioxide 26 Anion Gap 16 BUN 29 H Creatinine 3.68 H Est GFR ( Amer) 20 L Est GFR (Non-Af Amer) 17 L Glucose 209 H Calcium 8.7 Magnesium 1.8 Impressions: Lower Extremity MRI 09/08/18 00:00 IMPRESSION: Osteomyelitis in the 2nd and 5th digits as above Assessment & Plan - Diagnosis (1) Necrotic toes Is this a current diagnosis for this admission?: Yes Plan: was told he would need an above the knee amputation (2) Osteomyelitis Qualifiers: Osteomyelitis type: chronic, with draining sinus Osteomyelitis location: foot Laterality: right Qualified Code(s): M86.471 - Chronic osteomyelitis with draining sinus, right ankle and foot Is this a current diagnosis for this admission?: Yes Plan: was told he would need an above the knee amputation, awaiting his decision. (3) Anemia in chronic kidney disease (CKD) Qualifiers: Chronic kidney disease stage: stage 5, not on chronic dialysis Qualified Code(s): N18.5 - Chronic kidney disease, stage 5; D63.1 - Anemia in chronic kidney disease; D63.1 - Anemia in chronic kidney disease Is this a current diagnosis for this admission?: Yes Plan: will give epogen during dialysis when needed (4) ESRD on hemodialysis Is this a current diagnosis for this admission?: Yes Plan: will look to arrange for dialysis tomorrow. (5) Hyperkalemia Plan: improved, after dialysis (6) Hypertension Qualifiers: Hypertension type: essential hypertension Qualified Code(s): I10 - Essential (primary) hypertension Is this a current diagnosis for this admission?: Yes Plan: will look to increase lisinopril to 10mg, if potassium keeps elevating then he will need to come off the lisinopril.
[2018-09-09] MEDS ORDERED: ACETAMINOPHEN 325 MG TABLET PO PRN (15:00)
[2018-09-09] MEDS: CEFTRIAXONE SODIUM 1,000 MG in DEXTROSE 5%-WATER 50 ML IV SCH (18:33)
--- NOTE | 2018-09-09 19:44 | PDOC PROGRESS REPORT ---
Subjective Progress Note for:: 09/09/18 Subjective:: Patient undecided whether he wishes to undergo amputation surgery. Pt is denying any chest arm or neck discomfort. Patient denying any PND, orthopnea. Patient denied any sustained palpitations, dizziness, syncope, near syncope. Patient denying any fever chills. Patient denying any other significant discomfort. Patient is maintaining sinus rhythm. Review of systems: Rest review of systems negative. Medications: Medications have been reviewed. Reason For Visit: FOOT INFECTION Physical Exam Vital Signs: Temp Pulse Resp BP Pulse Ox 97.7 F 83 16 175/77 H 98 09/09/18 03:03 09/09/18 03:03 09/09/18 03:03 09/09/18 03:03 09/09/18 03:03 Intake & Output 09/08/18 09/09/18 09/10/18 06:59 06:59 06:59 Intake Total 50 250 Output Total 0 2600 Balance 0 -2550 250 Weight 69 kg 68.6 kg Results Laboratory Results: 09/09/18 04:34 09/09/18 04:34 09/09/18 09/09/18 09/09/18 04:34 04:34 04:34 WBC 8.7 RBC 3.54 L Hgb 11.4 L Hct 34.1 L MCV 96 MCH 32.1 MCHC 33.4 RDW 16.6 H Plt Count 269 Seg Neutrophils % 42.4 Lymphocytes % 42.3 Monocytes % 11.4 Eosinophils % 3.2 Basophils % 0.7 Absolute Neutrophils 3.7 Absolute Lymphocytes 3.7 Absolute Monocytes 1.0 Absolute Eosinophils 0.3 Absolute Basophils 0.1 Sodium 143.9 Potassium 5.0 Chloride 102 Carbon Dioxide 26 Anion Gap 16 BUN 29 H Creatinine 3.68 H Est GFR ( Amer) 20 L Est GFR (Non-Af Amer) 17 L Glucose 209 H Calcium 8.7 Magnesium 1.8 Impressions: Lower Extremity MRI 09/08/18 00:00 IMPRESSION: Osteomyelitis in the 2nd and 5th digits as above Assessment & Plan - Diagnosis (1) Necrotic toes Is this a current diagnosis for this admission?: Yes (2) Anemia in chronic kidney disease (CKD) Qualifiers: Chronic kidney disease stage: stage 5, not on chronic dialysis Qualified Code(s): N18.5 - Chronic kidney disease, stage 5; D63.1 - Anemia in chronic kidney disease; D63.1 - Anemia in chronic kidney disease Is this a current diagnosis for this admission?: Yes (3) Coronary artery disease Qualifiers: Coronary Disease-Associated Artery/Lesion type: unspecified vessel or lesion type [place] vs. transplanted heart: [place] heart Associated angina: angina presence unspecified Qualified Code(s): I25.10 - Atherosclerotic heart disease of [place] coronary artery without angina pectoris Is this a current diagnosis for this admission?: Yes (4) Diabetes mellitus, type II Qualifiers: Diabetes mellitus lead care manager insulin use: with nursing home use Diabetes mellitus complication status: with other specified complication Qualified Code (s): E11.69 - Type 2 diabetes mellitus with other specified complication; Z79.4 - hand cloth examiner (current) use of insulin; Z79.4 - [facility] (current) use of insulin ; Z79.4 - [facility] (current) use of insulin; Z79.4 - [facility] (current) use of insulin Is this a current diagnosis for this admission?: Yes (5) ESRD needing dialysis Is this a current diagnosis for this admission?: Yes (6) Gastroesophageal reflux disease Qualifiers: Esophagitis presence: esophagitis presence not specified Qualified Code(s) : K21.9 - Gastro-esophageal reflux disease without esophagitis Is this a current diagnosis for this admission?: Yes - Notes Notes: Patient medications are reviewed. He is on the stable cardiac regimen. He is not having any cardiovascular related symptoms. As noted above patient still cleared for surgery when patient decides to go through it. Patient has been advised to above-knee amputation by the surgeon but is currently not able to decide about this surgery. Surgery been postponed until tomorrow or until he makes a definitive decision. Currently patient remains stable. Will do postop EKG. - Time Time with patient: 15-25 minutes - More than 50% of the time spent coordinating care, discussing management plans with involved caregivers. Management plans discussed with involved personnels. Medical decision making was of moderate to high complexity, patient's has multiple comorbidities. Medications reviewed and adjusted accordingly: Yes
[2018-09-09] MEDS: LISINOPRIL 5 MG TABLET PO SCH (21:08)
[2018-09-10] MEDS: HYDRALAZINE HCL INJ/PF 20 MG/1 ML SDV IV PRN ×2 (00:02→05:09)
[2018-09-10] MEDS: METRONIDAZOLE 500 MG TABLET PO SCH ×3 (02:50→20:00)
[2018-09-10] MEDS: PANTOPRAZOLE SODIUM 40 MG VIAL IV SCH (05:09)
[2018-09-10 06:22] LABS: ABSOLUTE BASOPHILS # (AUTO) 0.1 10^3/uL (0.0-0.2); ABSOLUTE EOSINOPHILS # (AUTO) 0.3 10^3/uL (0.0-0.6); ABSOLUTE LYMPHOCYTES (AUTO) 5.2 10^3/uL (0.5-4.7); ABSOLUTE MONOCYTES (AUTO) 1.1 10^3/uL (0.1-1.4); ABSOLUTE NEUT (AUTO) 3.9 10^3/uL (1.7-8.2); BASOPHILS % (AUTO) 0.7 % (0-2); EOSINOPHILS % (AUTO) 3.1 % (0-6); HEMOGLOBIN 11.6 g/dL (13.5-17.0); LYMPHOCYTES % (AUTO) 48.8 % (13-45); MEAN CORPUSCULAR HEMOGLOBIN 32.4 pg (27.0-33.4); MEAN CORPUSCULAR HGB CONC 34.1 g/dL (32.0-36.0); MEAN CORPUSCULAR VOLUME 95 fl (80-97); MONOCYTES % (AUTO) 10.5 % (3-13); PLATELET COUNT 275 10^3/uL (150-450); RED BLOOD COUNT 3.59 10^6/uL (4.35-5.55); RED CELL DISTRIBUTION WIDTH 16.8 % (11.5-14.0); SEGMENTED NEUTROPHILS % (AUTO) 36.9 % (42-78); TOTAL CELLS COUNTED % (AUTO) 100 %; WHITE BLOOD COUNT 10.6 10^3/uL (4.0-10.5)
[2018-09-10 06:43] LABS: VANCOMYCIN,TROUGH 15.3 ug/mL (5.0-20.0)
[2018-09-10 06:44] LABS: ANION GAP 15 (5-19); BLOOD UREA NITROGEN 45 mg/dL (7-20); CALCIUM 8.9 mg/dL (8.4-10.2); CARBON DIOXIDE 26 mmol/L (22-30); CHLORIDE 104 mmol/L (98-107); GLUCOSE 146 mg/dL (75-110); POTASSIUM 5.1 mmol/L (3.6-5.0); SODIUM 144.9 mmol/L (137-145)
--- NOTE | 2018-09-10 08:32 | PDOC PROGRESS REPORT ---
Subjective Progress Note for:: 09/10/18 Subjective:: Patient is currently doing well Patients do not want to go for surgery Patient's other than that denied any chest pain denied any fever no chills Reason For Visit: FOOT INFECTION Physical Exam Vital Signs: Temp Pulse Resp BP Pulse Ox 98.3 F 90 20 164/67 H 99 09/10/18 02:53 09/10/18 02:53 09/10/18 02:53 09/10/18 02:53 09/10/18 02:53 Intake & Output 09/09/18 09/10/18 09/11/18 06:59 06:59 06:59 Intake Total 50 477 50 Output Total 2600 25 Balance -2550 452 50 Weight 68.6 kg 68.4 kg General appearance: PRESENT: no acute distress, well-developed, well-nourished Head exam: PRESENT: atraumatic, normocephalic Eye exam: PRESENT: conjunctiva pink, EOMI, PERRLA. ABSENT: scleral icterus Ear exam: PRESENT: normal external ear exam Mouth exam: PRESENT: moist, tongue midline Neck exam: PRESENT: full ROM. ABSENT: carotid bruit, JVD, lymphadenopathy, thyromegaly Respiratory exam: PRESENT: clear to auscultation jolie Cardiovascular exam: PRESENT: RRR. ABSENT: diastolic murmur, rubs, systolic murmur Pulses: PRESENT: normal dorsalis pedis pul, +2 pedal pulses bilateral Vascular exam: PRESENT: normal capillary refill GI/Abdominal exam: PRESENT: normal bowel sounds, soft. ABSENT: distended, guarding, mass, organolmegaly, rebound, tenderness Rectal exam: PRESENT: deferred Neurological exam: PRESENT: alert, awake, oriented to person, oriented to place , oriented to time, oriented to situation, CN II-XII grossly intact. ABSENT: motor sensory deficit Psychiatric exam: PRESENT: appropriate affect, normal mood. ABSENT: homicidal ideation, suicidal ideation Skin exam: PRESENT: dry, intact, warm. ABSENT: cyanosis, rash Results Laboratory Results: 09/10/18 06:07 09/10/18 06:07 09/09/18 09/10/18 09/10/18 04:34 06:07 06:07 WBC 10.6 H RBC 3.59 L Hgb 11.6 L Hct 34.0 L MCV 95 MCH 32.4 MCHC 34.1 RDW 16.8 H Plt Count 275 Seg Neutrophils % 36.9 L Lymphocytes % 48.8 H Monocytes % 10.5 Eosinophils % 3.1 Basophils % 0.7 Absolute Neutrophils 3.9 Absolute Lymphocytes 5.2 H Absolute Monocytes 1.1 Absolute Eosinophils 0.3 Absolute Basophils 0.1 Sodium 143.9 144.9 Potassium 5.0 5.1 H Chloride 102 104 Carbon Dioxide 26 26 Anion Gap 16 15 BUN 29 H 45 H Creatinine 3.68 H 4.64 H Est GFR ( Amer) 20 L 16 L Est GFR (Non-Af Amer) 17 L 13 L Glucose 209 H 146 H Calcium 8.7 8.9 Magnesium 2.0 Impressions: Lower Extremity MRI 09/08/18 00:00 IMPRESSION: Osteomyelitis in the 2nd and 5th digits as above Assessment & Plan - Diagnosis (1) Necrotic toes Is this a current diagnosis for this admission?: Yes Plan: Is do not want to go for surgery still think about (2) Osteomyelitis Qualifiers: Osteomyelitis type: chronic, with draining sinus Osteomyelitis location: foot Laterality: right Qualified Code(s): M86.471 - Chronic osteomyelitis with draining sinus, right ankle and foot Is this a current diagnosis for this admission?: Yes Plan: Start IV antibiotic through the dialysis (3) Cerebrovascular disease Is this a current diagnosis for this admission?: Yes (4) Coronary artery disease Qualifiers: Coronary Disease-Associated Artery/Lesion type: unspecified vessel or lesion type Is this a current diagnosis for this admission?: Yes Plan: Patient's echocardiogram is stable seen by the program and research coordinator patient stable for the surgery (5) Diabetes mellitus, type II Qualifiers: Diabetes mellitus intermediate insulin use: with intermediate use Diabetes mellitus complication status: with other specified complication Qualified Code (s): E11.69 - Type 2 diabetes mellitus with other specified complication; Z79.4 - technician terminal and repeater (current) use of insulin; Z79.4 - half-way (current) use of insulin ; Z79.4 - technician terminal and repeater (current) use of insulin; Z79.4 - technician terminal and repeater (current) use of insulin Is this a current diagnosis for this admission?: Yes Plan: Continues to sliding-scale (6) Dialysis patient Is this a current diagnosis for this admission?: Yes (7) ESRD on hemodialysis Is this a current diagnosis for this admission?: Yes Plan: Consult to nephrology for ongoing dialysis (8) Gastroesophageal reflux disease Qualifiers: Esophagitis presence: esophagitis presence not specified Qualified Code(s) : K21.9 - Gastro-esophageal reflux disease without esophagitis Is this a current diagnosis for this admission?: Yes Plan: Continues the Pepcid (9) History of Clostridium difficile colitis Is this a current diagnosis for this admission?: Yes Plan: Will continues to monitor while patient is currently on antibiotics (10) History of kidney transplant Is this a current diagnosis for this admission?: Yes (11) Hyperlipidemia Qualifiers: Hyperlipidemia type: unspecified Qualified Code(s): E78.5 - Hyperlipidemia , unspecified Is this a current diagnosis for this admission?: Yes (12) Hypertension Qualifiers: Hypertension type: essential hypertension Qualified Code(s): I10 - Essential (primary) hypertension Is this a current diagnosis for this admission?: Yes Plan: Use of as needed hydralazine - Time Time Spent with patient: 15-24 minutes Medications reviewed and adjusted accordingly: Yes Anticipated discharge: Other Within: Other - Inpatient Certification Based on my medical assessment, after consideration of the patient's comorbidities, presenting symptoms, or acuity I expect that the services needed warrant INPATIENT care.: Yes I certify that my determination is in accordance with my understanding of Medicare's requirements for reasonable and necessary INPATIENT services [42 CFR 412.3e].: Yes Medical Necessity: Need for IV Antibiotics Post Hospital Care: D/C Pipeline Operator Documentation - Plan Summary Plan Summary: Very extensive discussed with the patient and the if the patient's do not want the surgery patient is currently medically stable and patients want to think about it patients continues to receive the IV antibiotic through the dialysis and patients can go home if the patient started running any fever or chills needs to bring it back to the hospital Patient is doing very well not going for the surgery lead to multiple complications but the patient is pretty much do not want to go at this point we will kept here for another day if you remain afebrile and the patient's do not want a surgery can go home
[2018-09-10] MEDS: DOCUSATE SODIUM 100 MG CAPSULE PO SCH ×2 (10:26→20:00)
[2018-09-10] MEDS: ISOSORBIDE MONONITRATE 30 MG TAB.ER.24H PO SCH (10:26)
[2018-09-10] MEDS: TAMSULOSIN HCL 0.4 MG CAP.SR.24H PO SCH (10:26)
[2018-09-10] MEDS: ASPIRIN 81 MG TABLET, ENT COATED PO SCH (10:26)
[2018-09-10] MEDS: PREDNISONE 5 MG TABLET PO SCH (10:26)
--- NOTE | 2018-09-10 11:29 | PDOC PROGRESS REPORT ---
Subjective Subjective:: We are told by the nursing staff the patient is not interested in having amputation at this time. Therefore surgery will sign off; reconsult as needed Reason For Visit: FOOT INFECTION Physical Exam Vital Signs: Temp Pulse Resp BP Pulse Ox 97.7 F 80 16 165/65 H 99 09/10/18 08:30 09/10/18 08:30 09/10/18 08:30 09/10/18 08:30 09/10/18 02:53 Intake & Output 09/09/18 09/10/18 09/11/18 06:59 06:59 06:59 Intake Total 50 477 50 Output Total 2600 25 Balance -2550 452 50 Weight 68.6 kg 68.4 kg Results Laboratory Results: 09/10/18 06:07 09/10/18 06:07 09/10/18 09/10/18 06:07 06:07 WBC 10.6 H RBC 3.59 L Hgb 11.6 L Hct 34.0 L MCV 95 MCH 32.4 MCHC 34.1 RDW 16.8 H Plt Count 275 Seg Neutrophils % 36.9 L Lymphocytes % 48.8 H Monocytes % 10.5 Eosinophils % 3.1 Basophils % 0.7 Absolute Neutrophils 3.9 Absolute Lymphocytes 5.2 H Absolute Monocytes 1.1 Absolute Eosinophils 0.3 Absolute Basophils 0.1 Sodium 144.9 Potassium 5.1 H Chloride 104 Carbon Dioxide 26 Anion Gap 15 BUN 45 H Creatinine 4.64 H Est GFR ( Amer) 16 L Est GFR (Non-Af Amer) 13 L Glucose 146 H Calcium 8.9 Magnesium 2.0 Impressions: Lower Extremity MRI 09/08/18 00:00 IMPRESSION: Osteomyelitis in the 2nd and 5th digits as above
[2018-09-10] MEDS: INSULIN LISPRO 100 UNIT/ML 3 ML VIAL SUBCUT PRN ×2 (13:13→20:15)
[2018-09-10] MEDS: CLOPIDOGREL BISULFATE 75 MG TABLET PO SCH (13:55)
--- NOTE | 2018-09-10 16:51 | PDOC PROGRESS REPORT ---
Subjective Progress Note for:: 09/10/18 Subjective:: Patient was observed on dialysis. All labs, vitals and orders were reviewed with treating dialysis nurse to ensure safe and effective dialysis. At the time the patient denied chest pain, SOB, N/V/D/C. He has chosen to not have his leg amputated. Reason For Visit: FOOT INFECTION Physical Exam Vital Signs: Temp Pulse Resp BP Pulse Ox 98.4 F 84 16 160/70 H 100 09/10/18 12:04 09/10/18 12:04 09/10/18 12:04 09/10/18 12:04 09/10/18 12:04 Intake & Output 09/09/18 09/10/18 09/11/18 06:59 06:59 06:59 Intake Total 50 477 50 Output Total 2600 25 Balance -2550 452 50 Weight 68.6 kg 68.4 kg General appearance: PRESENT: no acute distress, well-developed, well-nourished Mouth exam: PRESENT: moist, neck supple Neck exam: ABSENT: JVD, tracheal deviation Respiratory exam: PRESENT: clear to auscultation jolie. ABSENT: crackles, rales, rhonchi, wheezes Cardiovascular exam: PRESENT: +S1, +S2, systolic murmur GI/Abdominal exam: PRESENT: normal bowel sounds, soft. ABSENT: organomegaly, tenderness Extremities exam: ABSENT: pedal edema, +1 edema, +2 edema Neurological exam: PRESENT: alert, awake, oriented to person, oriented to place , oriented to time, oriented to situation Skin exam: PRESENT: dry, erythema, skin tears Results Laboratory Results: 09/10/18 06:07 09/10/18 06:07 09/10/18 09/10/18 06:07 06:07 WBC 10.6 H RBC 3.59 L Hgb 11.6 L Hct 34.0 L MCV 95 MCH 32.4 MCHC 34.1 RDW 16.8 H Plt Count 275 Seg Neutrophils % 36.9 L Lymphocytes % 48.8 H Monocytes % 10.5 Eosinophils % 3.1 Basophils % 0.7 Absolute Neutrophils 3.9 Absolute Lymphocytes 5.2 H Absolute Monocytes 1.1 Absolute Eosinophils 0.3 Absolute Basophils 0.1 Sodium 144.9 Potassium 5.1 H Chloride 104 Carbon Dioxide 26 Anion Gap 15 BUN 45 H Creatinine 4.64 H Est GFR ( Amer) 16 L Est GFR (Non-Af Amer) 13 L Glucose 146 H Calcium 8.9 Magnesium 2.0 Impressions: Lower Extremity MRI 09/08/18 00:00 IMPRESSION: Osteomyelitis in the 2nd and 5th digits as above Assessment & Plan - Diagnosis (1) Necrotic toes Is this a current diagnosis for this admission?: Yes Plan: was told he would need an above the knee amputation, but has chosen not to (2) Osteomyelitis Qualifiers: Osteomyelitis type: chronic, with draining sinus Osteomyelitis location: foot Laterality: right Qualified Code(s): M86.471 - Chronic osteomyelitis with draining sinus, right ankle and foot Is this a current diagnosis for this admission?: Yes Plan: was told he would need an above the knee amputation, chose not to (3) Anemia in chronic kidney disease (CKD) Qualifiers: Chronic kidney disease stage: stage 5, not on chronic dialysis Qualified Code(s): N18.5 - Chronic kidney disease, stage 5; D63.1 - Anemia in chronic kidney disease; D63.1 - Anemia in chronic kidney disease Is this a current diagnosis for this admission?: Yes Plan: will give epogen during dialysis when needed (4) ESRD on hemodialysis Is this a current diagnosis for this admission?: Yes Plan: Patient was observed on dialysis. All labs, vitals and orders were reviewed with treating dialysis nurse to ensure safe and effective dialysis. (5) Hyperkalemia Plan: stable (6) Hypertension Qualifiers: Hypertension type: essential hypertension Qualified Code(s): I10 - Essential (primary) hypertension Is this a current diagnosis for this admission?: Yes Plan: increasing lisinopril to 10mg
[2018-09-10] MEDS: CEFTRIAXONE SODIUM 1,000 MG in DEXTROSE 5%-WATER 50 ML IV SCH (19:59)
[2018-09-10] MEDS: VANCOMYCIN HCL 750 MG in DEXTROSE 5%-WATER 250 ML IV SCH (20:41)
[2018-09-10] MEDS: LISINOPRIL 10 MG TABLET PO SCH (21:54)
[2018-09-11] MEDS: METRONIDAZOLE 500 MG TABLET PO SCH ×3 (02:53→17:18)
[2018-09-11] MEDS: HYDRALAZINE HCL INJ/PF 20 MG/1 ML SDV IV PRN (02:57)
[2018-09-11] MEDS: PANTOPRAZOLE SODIUM 40 MG VIAL IV SCH (06:06)
[2018-09-11] MEDS: ONDANSETRON HCL INJ/PF 4 MG/2 ML SDV IV PRN (07:35)
[2018-09-11] MEDS: PREDNISONE 5 MG TABLET PO SCH (09:29)
[2018-09-11] MEDS: ASPIRIN 81 MG TABLET, ENT COATED PO SCH (09:29)
[2018-09-11] MEDS: CLOPIDOGREL BISULFATE 75 MG TABLET PO SCH (09:29)
[2018-09-11] MEDS: ISOSORBIDE MONONITRATE 30 MG TAB.ER.24H PO SCH (09:29)
[2018-09-11] MEDS: DOCUSATE SODIUM 100 MG CAPSULE PO SCH ×2 (09:29→17:19)
[2018-09-11] MEDS: TAMSULOSIN HCL 0.4 MG CAP.SR.24H PO SCH (09:29)
[2018-09-11] MEDS: INSULIN LISPRO 100 UNIT/ML 3 ML VIAL SUBCUT PRN ×2 (12:53→17:18)
--- NOTE | 2018-09-11 17:13 | PDOC PROGRESS REPORT ---
Subjective Progress Note for:: 09/11/18 Subjective:: Patient seen by the bedside, he has osteomyelitis of the right foot, it seems that amputation was recommended by the surgeon but patient declined that option on IV antibiotic, he wants to go home but the outpatient IV antibiotic is not set up yet so it is not safe for him to be discharged home without proper outpatient IV antibiotic regimen set up Reason For Visit: FOOT INFECTION Physical Exam Vital Signs: Temp Pulse Resp BP Pulse Ox 98.2 F 86 16 136/60 H 97 09/11/18 15:13 09/11/18 15:13 09/11/18 15:13 09/11/18 15:13 09/11/18 15:13 Intake & Output 09/10/18 09/11/18 09/12/18 06:59 06:59 06:59 Intake Total 477 347 537 Output Total 25 1800 0 Balance 452 -1453 537 Weight 68.4 kg 67.5 kg General appearance: PRESENT: no acute distress Eye exam: PRESENT: PERRLA Respiratory exam: PRESENT: clear to auscultation jolie Cardiovascular exam: PRESENT: +S1, +S2 GI/Abdominal exam: PRESENT: soft Extremities exam: PRESENT: other - Gangrene of the toes of the right foot Neurological exam: PRESENT: alert Results Laboratory Results: 09/10/18 06:07 09/10/18 06:07 09/08/18 08:30 Catheter Tip Site Gram Stain - Final 09/08/18 08:30 Catheter Tip Site Wound Culture - Final Skin Indira 09/08/18 02:05 Toe - Right Second Gram Stain - Final 09/08/18 02:05 Toe - Right Second Wound Culture - Final Staphylococcus Aureus Impressions: Lower Extremity MRI 09/08/18 00:00 IMPRESSION: Osteomyelitis in the 2nd and 5th digits as above Assessment & Plan - Diagnosis (1) Osteomyelitis of foot, right, acute Is this a current diagnosis for this admission?: Yes Plan: Continue IV antibiotic (2) Coronary artery disease Qualifiers: Coronary Disease-Associated Artery/Lesion type: unspecified vessel or lesion type Is this a current diagnosis for this admission?: Yes (3) ESRD on hemodialysis Is this a current diagnosis for this admission?: Yes
--- NOTE | 2018-09-11 19:16 | PDOC PROGRESS REPORT ---
Subjective Progress Note for:: 09/10/18 Subjective:: Patient undecided whether he wishes to undergo amputation surgery. Pt is denying any chest arm or neck discomfort. Patient denying any PND, orthopnea. Patient denied any sustained palpitations, dizziness, syncope, near syncope. Patient denying any fever chills. Patient denying any other significant discomfort. Patient is maintaining sinus rhythm. Review of systems: Rest review of systems negative. Medications: Medications have been reviewed. Reason For Visit: FOOT INFECTION Physical Exam Vital Signs: Temp Pulse Resp BP Pulse Ox 98.0 F 85 20 152/74 H 99 09/10/18 19:55 09/10/18 19:55 09/10/18 19:55 09/10/18 19:55 09/10/18 19:55 Intake & Output 09/09/18 09/10/18 09/11/18 06:59 06:59 06:59 Intake Total 50 477 227 Output Total 2600 25 1800 Balance -2550 452 -1573 Weight 68.6 kg 68.4 kg Results Laboratory Results: 09/10/18 06:07 09/10/18 06:07 09/10/18 09/10/18 06:07 06:07 WBC 10.6 H RBC 3.59 L Hgb 11.6 L Hct 34.0 L MCV 95 MCH 32.4 MCHC 34.1 RDW 16.8 H Plt Count 275 Seg Neutrophils % 36.9 L Lymphocytes % 48.8 H Monocytes % 10.5 Eosinophils % 3.1 Basophils % 0.7 Absolute Neutrophils 3.9 Absolute Lymphocytes 5.2 H Absolute Monocytes 1.1 Absolute Eosinophils 0.3 Absolute Basophils 0.1 Sodium 144.9 Potassium 5.1 H Chloride 104 Carbon Dioxide 26 Anion Gap 15 BUN 45 H Creatinine 4.64 H Est GFR ( Amer) 16 L Est GFR (Non-Af Amer) 13 L Glucose 146 H Calcium 8.9 Magnesium 2.0 Impressions: Lower Extremity MRI 09/08/18 00:00 IMPRESSION: Osteomyelitis in the 2nd and 5th digits as above Assessment & Plan - Diagnosis (1) Necrotic toes Is this a current diagnosis for this admission?: Yes (2) Anemia in chronic kidney disease (CKD) Qualifiers: Chronic kidney disease stage: stage 5, not on chronic dialysis Qualified Code(s): N18.5 - Chronic kidney disease, stage 5; D63.1 - Anemia in chronic kidney disease; D63.1 - Anemia in chronic kidney disease Is this a current diagnosis for this admission?: Yes (3) Coronary artery disease Qualifiers: Coronary Disease-Associated Artery/Lesion type: unspecified vessel or lesion type [place] vs. 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) use of insulin; Z79.4 - movie machine operator (current) use of insulin ; Z79.4 - movie machine operator (current) use of insulin; Z79.4 - intermediate (current) use of insulin Is this a current diagnosis for this admission?: Yes (5) ESRD needing dialysis Is this a current diagnosis for this admission?: Yes (6) Gastroesophageal reflux disease Qualifiers: Esophagitis presence: esophagitis presence not specified Qualified Code(s) : K21.9 - Gastro-esophageal reflux disease without esophagitis Is this a current diagnosis for this admission?: Yes - Notes Notes: Twelve-lead EKG obtained today was reviewed. It showed inferior Q waves, which are chronic, minor nonspecific T wave changes and LVH finding noted. Nothing acute going on with patient cardiovascular status. He is on a stable cardiac regimen and this was reviewed. Patient still undecided, whether he wishes to undergo amputation. Will continue to follow until patient has surgery or he definitely decides not to have surgery. Patient has been advised to above-knee amputation by the surgeon but is currently not able to decide about this surgery. Surgery been postponed until tomorrow or until he makes a definitive decision. Currently patient remains stable. Will do postop EKG. - Time Time with patient: 15-25 minutes - More than 50% of the time spent coordinating care, discussing management plans with involved caregivers. Management plans discussed with involved personnels. Medical decision making was of moderate to high complexity, patient's has multiple comorbidities. Medications reviewed and adjusted accordingly: Yes
--- NOTE | 2018-09-11 19:18 | PDOC PROGRESS REPORT ---
Subjective Progress Note for:: 09/11/18 Subjective:: Patient patient has decided that he does not want to undergo amputation surgery but will see surgeons in follow-up in the wound care department. Pt is denying any chest arm or neck discomfort. Patient denying any PND, orthopnea. Patient denied any sustained palpitations, dizziness, syncope, near syncope. Patient denying any fever chills. Patient denying any other significant discomfort. Patient is maintaining sinus rhythm. Review of systems: Rest review of systems negative. Medications: Medications have been reviewed. Reason For Visit: FOOT INFECTION Physical Exam Vital Signs: Temp Pulse Resp BP Pulse Ox 98.2 F 86 16 136/60 H 97 09/11/18 15:13 09/11/18 15:13 09/11/18 15:13 09/11/18 15:13 09/11/18 15:13 Intake & Output 09/10/18 09/11/18 09/12/18 06:59 06:59 06:59 Intake Total 477 347 777 Output Total 25 1800 0 Balance 452 -1453 777 Weight 68.4 kg 67.5 kg Exam: GENERAL: well-nourished and in no acute distress. Alert and oriented x3 HEAD: Atraumatic, normocephalic. EYES: JORGE, sclera anicteric, conjunctiva are normal. ENT: Moist mucous membranes. No oral ulcerations or bleeding gums noted. No obvious ear, nose or throat abnormalities noted. NECK: supple without lymphadenopathy. Trachea is central. No cervical or axillary lymphadenopathy noted. Carotids are 2+, JVD WNL LUNGS: Breath sounds clear bilaterally. No wheezes rales or rhonchi noted. No significant dullness noted on percussion. CHEST: Palpation of the chest wall shows no significant chest wall tenderness. HEART: Alpha [employer] FR[employer] COLORER, No PSH, 1/6 MELBA aortic area, 1/6 [place] systolic murmur mitral area, no rubs, no gallops. ABDOMEN: Soft, no significant tenderness appreciated, normoactive bowel sounds. No guarding, no rebound. No rigidity noted . No masses appreciated. EXTREMITIES: Pedal pulses are 1-2+, no calf tenderness noted. No clubbing or cyanosis. negative pedal edema noted NEUROLOGICAL: Focused neurological exam showed quadriparesis with marked weakness both lower extremity and mild to moderate weakness both upper extremity. Muscle loss noted. PSYCH: Normal mood, normal affect. Judgment and insight within normal limits. SKIN: No significant ecchymosis, skin is noted to be warm. Gangrenous toes and discolored toes noted both legs. For details see surgical exam. MUSCULOSKELETAL EXAM: No significant acute joint swelling noted. Results Laboratory Results: 09/10/18 06:07 09/10/18 06:07 09/08/18 08:30 Catheter Tip Site Gram Stain - Final 09/08/18 08:30 Catheter Tip Site Wound Culture - Final Skin Indira 09/08/18 02:05 Toe - Right Second Gram Stain - Final 09/08/18 02:05 Toe - Right Second Wound Culture - Final Staphylococcus Aureus EKG Comments: Telemetry shows sinus rhythm without any sustained tachycardia or bradycardia. Impressions: Lower Extremity MRI 09/08/18 00:00 IMPRESSION: Osteomyelitis in the 2nd and 5th digits as above Assessment & Plan - Diagnosis (1) Necrotic toes Is this a current diagnosis for this admission?: Yes (2) Anemia in chronic kidney disease (CKD) Qualifiers: Chronic kidney disease stage: stage 5, not on chronic dialysis Qualified Code(s): N18.5 - Chronic kidney disease, stage 5; D63.1 - Anemia in chronic kidney disease; D63.1 - Anemia in chronic kidney disease Is this a current diagnosis for this admission?: Yes (3) Coronary artery disease Qualifiers: Coronary Disease-Associated Artery/Lesion type: unspecified vessel or lesion type [place] vs. transplanted heart: [place] heart Associated angina: angina presence unspecified Qualified Code(s): I25.10 - Atherosclerotic heart disease of [place] coronary artery without angina pectoris Is this a current diagnosis for this admission?: Yes (4) Diabetes mellitus, type II Qualifiers: Diabetes mellitus cytopathologist insulin use: with shelter use Diabetes mellitus complication status: with other specified complication Qualified Code (s): E11.69 - Type 2 diabetes mellitus with other specified complication; Z79.4 - halfway (current) use of insulin; Z79.4 - housekeeper manager (current) use of insulin ; Z79.4 - housekeeper manager (current) use of insulin; Z79.4 - housekeeper manager (current) use of insulin Is this a current diagnosis for this admission?: Yes (5) ESRD needing dialysis Is this a current diagnosis for this admission?: Yes (6) Gastroesophageal reflux disease Qualifiers: Esophagitis presence: esophagitis presence not specified Qualified Code(s) : K21.9 - Gastro-esophageal reflux disease without esophagitis Is this a current diagnosis for this admission?: Yes - Notes Notes: Patient remains stable from cardiac standpoint. 2D echo result had shown improved LVEF. Patient has now decided not to undergo surgery. Patient remains stable from cardiac standpoint. His medical regimen is stable. Will sign off. Please reconsult if needed. - Time Time with patient: Less than 15 minutes - CODE STATUS was discussed, patient remains full code. Surrogate decision-maker unchanged. Multiple medical problems were addressed. More than 50% of the time spent coordinating care, discussing management plans with involved caregivers. Management plans discussed with involved personnels. Medical decision making was of moderate to high complexity, patient's has multiple comorbidities. Medications reviewed and adjusted accordingly: Yes
[2018-09-11] MEDS: LISINOPRIL 10 MG TABLET PO SCH (21:17)
[2018-09-12] MEDS: METRONIDAZOLE 500 MG TABLET PO SCH ×2 (02:33→10:49)
[2018-09-12] MEDS: HYDRALAZINE HCL INJ/PF 20 MG/1 ML SDV IV PRN ×2 (04:11→10:49)
[2018-09-12] MEDS: PANTOPRAZOLE SODIUM 40 MG VIAL IV SCH (06:48)
[2018-09-12] MEDS: CLOPIDOGREL BISULFATE 75 MG TABLET PO SCH (10:49)
[2018-09-12] MEDS: PREDNISONE 5 MG TABLET PO SCH (10:49)
[2018-09-12] MEDS: ASPIRIN 81 MG TABLET, ENT COATED PO SCH (10:49)
[2018-09-12] MEDS: ISOSORBIDE MONONITRATE 30 MG TAB.ER.24H PO SCH (10:49)
[2018-09-12] MEDS: TAMSULOSIN HCL 0.4 MG CAP.SR.24H PO SCH (10:49)
[2018-09-12] MEDS: DOCUSATE SODIUM 100 MG CAPSULE PO SCH (10:50)
[2018-09-12 12:19] VITALS: BP 140/67
[2018-09-12] MEDS: INSULIN LISPRO 100 UNIT/ML 3 ML VIAL SUBCUT PRN (13:11)
--- NOTE | 2018-09-12 13:29 | PDOC DISCHARGE SUMMARY ---
General - Admit/Disc Date/PCP Admission Date/Primary Care Provider: 09/07/18 22:23 KEEGAN MONTENEGRO MD Discharge Date: 09/12/18 - Discharge Diagnosis (1) Osteomyelitis of foot, right, acute Is this a current diagnosis for this admission?: Yes (2) Coronary artery disease Is this a current diagnosis for this admission?: Yes (3) ESRD on hemodialysis Is this a current diagnosis for this admission?: Yes - Additional Information Resuscitation Status: Full Code Prescriptions: Vancomycin HCl [Vancocin Inj 1000 mg Vial] 750 mg IV PDIA #45 vial Home Medications: Acetaminophen [Tylenol 325 mg Tablet] 650 mg PO Q6HP PRN tablet 09/12/18 Aspirin [Ecotrin 81 mg EC Tablet] 81 mg PO DAILY tabec 09/12/18 Clopidogrel Bisulfate [Plavix 75 mg Tablet] 75 mg PO DAILY tablet 09/12/18 Isosorbide Mononitrate [Imdur 30 mg Tablet.er] 30 mg PO DAILY tab.er.24h Lisinopril [Prinivil 10 mg Tablet] 10 mg PO QHS tablet 09/12/18 Vancomycin HCl [Vancocin Inj 1000 mg Vial] 750 mg IV PDIA #45 vial 09/12/18 History of Present Illness History of Present Illness: KATHRYN HURLEY is a 62 year old male, he has end-stage renal disease on maintenance hemodialysis, history of failed kidney transplant, multiple comorbid conditions including peripheral vascular disease, coronary artery disease, history of Guillain-[place] syndrome. He apparently was referred to the emergency room for worsening right foot infection, he has chronic foot ulcer, follows with wound clinic Hospital Course Hospital Course: Patient was admitted by Dr. Montenegro on September 07, 2018 when he presented with infection of the right foot, he apparently follows with the wound clinic, was referred to the emergency room because of worsening infection of the foot. He was empirically treated with IV vancomycin and ceftriaxone, the wound culture grew staph aureus which was a quality culture with 4+. Patient was seen by the surgeon amputation of the leg above the knee was recommended but patient declined this option. Patient wants to go home today, MRI of the leg was done he demonstrated also along the dorsal aspect of the second toe not the PIP joint , deep to the ulcer there is a profound the ossification of the second toe proximal and middle phalanges were present with cortical bone resorption and diffuse soft tissue fibrosis likely from osteomyelitis. He was diagnosed as osteomyelitis of the second and the fifth digits. He will require outpatient vancomycin intravenously this could be arranged in outpatient dialysis. Physical Exam Vital Signs: Temp Pulse Resp BP Pulse Ox 98.3 F 89 16 140/67 H 97 09/12/18 12:06 09/12/18 12:06 09/12/18 12:06 09/12/18 12:06 09/12/18 12:06 Intake & Output 09/11/18 09/12/18 09/13/18 06:59 06:59 06:59 Intake Total 347 1372 237 Output Total 1800 20 0 Balance -1453 1352 237 Weight 67.5 kg 68.3 kg General appearance: PRESENT: no acute distress Eye exam: PRESENT: PERRLA Respiratory exam: PRESENT: clear to auscultation jolie Cardiovascular exam: PRESENT: +S1 GI/Abdominal exam: PRESENT: soft Neurological exam: PRESENT: alert, CN II-XII grossly intact Results Laboratory Results: 09/10/18 06:07 09/10/18 06:07 09/08/18 08:30 Catheter Tip Site Gram Stain - Final 09/08/18 08:30 Catheter Tip Site Wound Culture - Final Skin Indira 09/08/18 02:05 Toe - Right Second Gram Stain - Final 09/08/18 02:05 Toe - Right Second Wound Culture - Final Staphylococcus Aureus Impressions: Lower Extremity MRI 09/08/18 00:00 IMPRESSION: Osteomyelitis in the 2nd and 5th digits as above Qualifiers - * PATIENT BEING DISCHARGED WITH ANY OF THE FOLLOWING DIAGNOSIS: No
--- NOTE | 2018-09-15 16:55 | PDOC CONSULTATION ---
Consultation Consult Date: 09/08/18 Consult reason:: ESRD for dialysisand co management of infected leg ulcer / Osteomyelitis History of Present Illness Admission Date/PCP: 09/07/18 22:23 KEEGAN MONTENEGRO MD History of Present Illness: KATHRYN HURLEY is a 62 year old male with ho Diabetes Hypertension, LGBS with residual weakness HO previous Osteo and surgery, recurrent UTI was admitted with h/o purulent discharge from toe of right foot not responding to conservative measures and highly suggestive of osteo. Seen by Surgeons and recommended surgery after dialysis.labs and medications were reviewed with patient as he is being seen on dialysis.He denies any complaints of any fever or chills. No complaints of any pain in his lower extremity. Past Medical History Cardiac Medical History: Reports: CHF-Diastolic, Coronary Artery Disease, Hyperlipidemia, Hypertension-primary, Myocardial Infarction - QUADRUPLE BYPASS 2007, HEART MURMUR Pulmonary Medical History: Reports: Asthma, Chronic Obstructive Pulmonary Disease (COPD), Intubation, Pneumonia - HX. GUILLAIN-BARRE' SYNDROME, Respiratory Failure, Sleep Apnea - On C Pap Endocrine Medical History: Reports: Diabetes Mellitus Type 2 Complications of Diabetes: Reports: Nephropathy Renal/ Medical History: Reports: End Stage Renal Disease, Secondary Hyperparathyroidism GI Medical History: Reports: Gastroesophageal Reflux Disease Psychiatric Medical History: Denies: Depression - anxiety Infectious Medical History: Reports: Clostridium Difficile Hematology Medical History: Reports Anemia of Chronic Kidney Disease Past Surgical History Past Surgical History: Reports: Cardiac Catheterization, Coronary Artery Bypass Graft - Quadruple bypass 2007, Vascular Surgery - left AV fistual, Other - History peritoneal dialysis catheter placement and removal Social History Smoking Status: Former Smoker Cigarettes Packs Per Day: 1 Number of Years Smokin Last Time Smoked: 2007 Frequency of Alcohol Use: None Hx Recreational Drug Use: No Drugs: None Hx Prescription Drug Abuse: No Family History Parental Family History Reviewed: Yes - negative for ESRD. Children Family History Reviewed: No Sibling(s) Family History Reviewed.: No Medication/Allergy Home Medications: Acetaminophen [Tylenol 325 mg Tablet] 650 mg PO Q6HP PRN tablet 09/12/18 Aspirin [Ecotrin 81 mg EC Tablet] 81 mg PO DAILY tabec 09/12/18 Clopidogrel Bisulfate [Plavix 75 mg Tablet] 75 mg PO DAILY tablet 09/12/18 Isosorbide Mononitrate [Imdur 30 mg Tablet.er] 30 mg PO DAILY tab.er.24h Lisinopril [Prinivil 10 mg Tablet] 10 mg PO QHS tablet 09/12/18 Vancomycin HCl [Vancocin Inj 1000 mg Vial] 750 mg IV PDIA #45 vial 09/12/18 Allergies/Adverse Reactions: No Known Allergies Allergy (Verified 09/07/18 16:44) Review of Systems Constitutional: PRESENT: anorexia, fatigue, weakness. ABSENT: chills, fever(s) , headache(s), night sweats Nose, Mouth, and Throat: ABSENT: mouth pain Cardiovascular: PRESENT: dyspnea on exertion. ABSENT: edema Gastrointestinal: ABSENT: abdominal pain, heartburn, nausea, vomiting Physical Exam Vital Signs: Temp Pulse Resp BP Pulse Ox 98.4 F 81 16 186/91 H 100 09/08/18 07:41 09/08/18 07:41 09/08/18 07:41 09/08/18 07:41 09/08/18 07:41 Intake & Output 09/07/18 09/08/18 09/09/18 06:59 06:59 06:59 Output Total 0 Balance 0 Weight 69 kg General appearance: PRESENT: no acute distress Eye exam: PRESENT: conjunctiva pink, PERRLA Ear exam: PRESENT: normal external ear exam Mouth exam: PRESENT: moist, neck supple Neck exam: ABSENT: lymphadenopathy, meningismus, tenderness, thyromegaly, tracheal deviation Respiratory exam: PRESENT: clear to auscultation jolie. ABSENT: crackles Cardiovascular exam: PRESENT: +S1, +S2, systolic murmur GI/Abdominal exam: PRESENT: normal bowel sounds, soft. ABSENT: organomegaly, tenderness Extremities exam: ABSENT: pedal edema Neurological exam: PRESENT: alert, awake, oriented to person, oriented to place Skin exam: ABSENT: cyanosis, rash Results Laboratory Results: 09/08/18 04:26 09/08/18 04:26 09/08/18 09/08/18 04:26 04:26 WBC 9.8 RBC 3.42 L Hgb 11.0 L Hct 32.2 L MCV 94 MCH 32.2 MCHC 34.2 RDW 16.5 H Plt Count 258 Seg Neutrophils % 47.8 Lymphocytes % 39.2 Monocytes % 10.3 Eosinophils % 2.2 Basophils % 0.5 Absolute Neutrophils 4.7 Absolute Lymphocytes 3.9 Absolute Monocytes 1.0 Absolute Eosinophils 0.2 Absolute Basophils 0.1 Sodium 139.1 Potassium 5.5 H Chloride 101 Carbon Dioxide 25 Anion Gap 13 BUN 46 H Creatinine 4.60 H Est GFR ( Amer) 16 L Est GFR (Non-Af Amer) 13 L Glucose 293 H Calcium 8.8 Magnesium 2.0 Assessment & Plan - Diagnosis (1) Osteomyelitis Qualifiers: Osteomyelitis type: chronic, with draining sinus Osteomyelitis location: foot Laterality: right Qualified Code(s): M86.471 - Chronic osteomyelitis with draining sinus, right ankle and foot Plan: Discussed with the patient that he will be better off after he has an amputation most likely below-knee given his extent of bone infection. He said he wants more time to think about it we discussed the pros and cons. (2) Anemia in chronic kidney disease (CKD) Qualifiers: Chronic kidney disease stage: stage 5, not on chronic dialysis Qualified Code(s): N18.5 - Chronic kidney disease, stage 5; D63.1 - Anemia in chronic kidney disease; D63.1 - Anemia in chronic kidney disease Plan: Secondary to CKD and chronic infection. Adjust erythropoietin. Monitor. 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 Status quo. (4) C. difficile colitis Plan: Currently compensated and stable. 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 (6) ESRD on hemodialysis Plan: Patient seen on dialysis.Undergoing dialysis without any issues. Is being supervised to ensure safe and smooth procedure. Plan to remove between 1 and 2 L as tolerated. Dialysis orders were reviewed with the treating dialysis nurse. (7) History of infection due to ESBL Escherichia coli Plan: History of drug resistant bacteria including VRE/ESBL E. coli and MRSA. Discussed with nurse to take contact precautions. (8) Hyperkalemia Plan: Advised watching diet carefully. We have discussed about about the consequences of hyperkalemia.
== END 2018-09-12 17:51 | disposition home health service (06) | DRG 638 ==
LOC: ER 16:38 → EH 22:23 → 3W 09-08 00:25
PROVIDERS: ADMIT Family Medicine; ATTEND Family Medicine
PROC: 5A1D70Z Performance of Urinary Filtration, Intermittent, Less than 6 Hours Per Day (ICD-10-PCS; principal; 2018-09-08)
PROC: 5A1D70Z Performance of Urinary Filtration, Intermittent, Less than 6 Hours Per Day (ICD-10-PCS; 2018-09-10)
DX: E11.69 Type 2 diabetes mellitus with other specified complication (principal); M86.471 Chronic osteomyelitis with draining sinus, right ankle and foot; I13.2 Hypertensive heart and chronic kidney disease with heart failure and with stage 5 chronic kidney disease, or end stage renal disease; T86.12 Kidney transplant failure; I50.32 Chronic diastolic (congestive) heart failure; G82.20 Paraplegia, unspecified; E11.52 Type 2 diabetes mellitus with diabetic peripheral angiopathy with gangrene; I96 Gangrene, not elsewhere classified; E87.5 Hyperkalemia; E11.22 Type 2 diabetes mellitus with diabetic chronic kidney disease; E11.621 Type 2 diabetes mellitus with foot ulcer; E11.21 Type 2 diabetes mellitus with diabetic nephropathy; L97.514 Non-pressure chronic ulcer of other part of right foot with necrosis of bone; N18.6 End stage renal disease; Z99.2 Dependence on renal dialysis; D63.1 Anemia in chronic kidney disease; B95.61 Methicillin susceptible Staphylococcus aureus infection as the cause of diseases classified elsewhere; G65.0 Sequelae of Guillain-Barre syndrome; I25.2 Old myocardial infarction; J44.9 Chronic obstructive pulmonary disease, unspecified; K21.9 Gastro-esophageal reflux disease without esophagitis; E78.5 Hyperlipidemia, unspecified; G47.30 Sleep apnea, unspecified; Z74.01 Bed confinement status; Z86.19 Personal history of other infectious and parasitic diseases; Z79.4 Long term (current) use of insulin; Z86.69 Personal history of other diseases of the nervous system and sense organs; Z87.891 Personal history of nicotine dependence; Z53.20 Procedure and treatment not carried out because of patient's decision for unspecified reasons; Z87.440 Personal history of urinary (tract) infections
CPT/HCPCS: 36415; 80048; 80053; 80202; 82962; 83735; 85025; 85652; 86140; 87040; 87070; 87077; 87186; 87205; 93005; 93010; 93306; 96365; 96367; 99284; J0131; J0360; J0696; J1815; J2250; J2405; J2704; J3010; J3370; J3490; J7060; J7512; S0164

== ENCOUNTER → 2018-09-07 | Outpatient (CLI) | payer MEDICARE ==
--- NOTE | 2018-09-07 15:04 | RADIOLOGY REPORT (SQ) ---
EXAM DESCRIPTION: FOOT RIGHT COMPLETE COMPLETED DATE/TIME: 09/07/2018 2:34 pm REASON FOR STUDY: NON-PRS CHRONIC ULCER OTH PRT RIGHT FOOT W NECROSIS OF BONE (L97.514) L97.514 NON -PRS CHRONIC ULCER OTH PRT RIGHT FOOT W NECROSIS COMPARISON: None. NUMBER OF VIEWS: Three views. TECHNIQUE: AP, lateral and oblique without weight bearing radiographic images acquired of the right foot. LIMITATIONS: None. FINDINGS: MINERALIZATION: Osteopenia. BONES: There are postsurgical changes prior amputation at the 5th mid metatarsal. There is lucency i n the 2nd 3rd and 4th metatarsal heads. There is resorption in the proximal phalanx of the 2nd digit . Findings may represent osteomyelitis. No significant osteophytes. JOINTS: No erosions. No juan carlos-articular osteopenia. No chondrocalcinosis. SOFT TISSUES: There is vascular calcification. OTHER: No other significant finding. IMPRESSION: Diffuse osteopenia. Erosive changes in the proximal phalanx of the 2nd digit. Osteomye litis cannot be excluded. Postsurgical changes. TECHNICAL DOCUMENTATION: JOB ID: [id number] [employer]- All Rights Reserved Reading location - IP/workstation name: [email or web address]
== END ==
LOC: RAD 13:29
PROVIDERS: ATTEND Preventive Medicine Undersea and Hyperbaric Medicine
DX: L97.514 Non-pressure chronic ulcer of other part of right foot with necrosis of bone (principal); M85.871 Other specified disorders of bone density and structure, right ankle and foot

== ENCOUNTER → 2019-01-04 | Outpatient (CLI) | payer MEDICARE ==
--- NOTE | 2019-01-04 15:50 | RADIOLOGY REPORT (SQ) ---
EXAM DESCRIPTION: FOOT RIGHT COMPLETE COMPLETED DATE/TIME: 01/04/2019 3:09 pm REASON FOR STUDY: NON-PRS CHRONIC ULCER OTH PRT RIGHT FOOT W NECROSIS OF BONE L97.514 NON-PRS CHRON IC ULCER OTH PRT RIGHT FOOT W NECROSIS COMPARISON: 09/07/2018 NUMBER OF VIEWS: Three views. TECHNIQUE: AP, lateral and oblique radiographic images acquired of the right foot. LIMITATIONS: None. FINDINGS: MINERALIZATION: Severe osteopenia. BONES: Surgical changes 5th digit. Severe osteopenia of the seconds 3rd and 4th metatarsal heads. P oorly seen cortex of the proximal phalanx of the seconds digit. There is a lytic lesion present whic h is smaller than on the previous study. Pathologic fracture. Osteomyelitis is suspected. JOINTS: No effusions. SOFT TISSUES: Soft tissue ulcer adjacent to the 5th digit is smaller than seen previously. OTHER: No other significant finding. IMPRESSION: Pathologic fracture proximal phalanx seconds digit improved in appearance since the prev ious study. Suspect underlying osteomyelitis. Soft tissue ulcer adjacent to the 5th digit is smaller. Severe generalized osteopenia. TECHNICAL DOCUMENTATION: JOB ID: [id number] [employer]- All Rights Reserved Reading location - IP/workstation name: [email or web address]
== END ==
LOC: WC 14:07
PROVIDERS: ATTEND Preventive Medicine Undersea and Hyperbaric Medicine
DX: L97.514 Non-pressure chronic ulcer of other part of right foot with necrosis of bone (principal); M84.477D Pathological fracture, right toe(s), subsequent encounter for fracture with routine healing; M85.88 Other specified disorders of bone density and structure, other site

== ENCOUNTER 2019-01-29 04:59 | Emergency (ER) | payer MEDICARE ==
--- NOTE | 2019-01-29 06:20 | ER Document Report ---
ED General - General Chief Complaint: Sore Throat Stated Complaint: SORE THROAT Time Seen by Provider: 01/29/19 06:10 Primary Care Provider: KEEGAN MONTENEGRO MD [Primary Care Provider] - Follow up as needed TRAVEL OUTSIDE OF THE [place] IN LAST 30 DAYS: No - HPI Notes: Patient is a 63-year-old male who presents emergency department for evaluation of sore throat. He states it really feels more like it is swollen. He denies any difficulties breathing or swallowing. He denies any new medications or any new exposures. No fevers or chills, he does have a mild cough. Eating and drinking normally. No other acute complaints or concerns. States his sugars have been well controlled as of late. - Related Data Allergies/Adverse Reactions: No Known Allergies Allergy (Verified 09/07/18 16:44) Past Medical History - General Information source: Patient - Social History Smoking Status: Former Smoker Family History: Reviewed & Not Pertinent, CAD - Past Medical History Cardiac Medical History: Reports: Hx Congestive Heart Failure, Hx Coronary Artery Disease, Hx Heart Attack - QUADRUPLE BYPASS 2007, HEART MURMUR, Hx Hypercholesterolemia, Hx Hypertension Pulmonary Medical History: Reports: Hx Asthma, Hx COPD, Hx Pneumonia - HX. GUILLAIN-BARRE' SYNDROME, Hx Intubation, Hx Respiratory Failure, Hx Sleep Apnea - On C Pap Neurological Medical History: Reports: Hx Cerebrovascular Accident - 2006 Endocrine Medical History: Reports: Hx Diabetes Mellitus Type 1, Hx Diabetes Mellitus Type 2 Renal/ Medical History: Reports: Hx End Stage Renal Disease, Hx Hemodialysis. Denies: Hx Peritoneal Dialysis GI Medical History: Reports: Hx Gastroesophageal Reflux Disease Musculoskeletal Medical History: Psychiatric Medical History: Denies: Hx Depression - anxiety Infectious Medical History: Reports: Hx C-Diff Past Surgical History: Reports: Hx Cardiac Catheterization, Hx Cardiac Surgery - bipass x4, Hx Coronary Artery Bypass Graft - Quadruple bypass 2007, Hx Kidney (Renal Surgery) - RENAL TRANSPLANT, Hx Vascular Surgery - left AV fistual, Other - History peritoneal dialysis catheter placement and removal - Immunizations Immunizations up to date: Yes Hx Diphtheria, Pertussis, Tetanus Vaccination: Yes - UTD Hx Pneumococcal Vaccination: 08/16/16 Review of Systems - Review of Systems Constitutional: No symptoms reported EENT: See HPI Cardiovascular: No symptoms reported Respiratory: See HPI Gastrointestinal: No symptoms reported Genitourinary: No symptoms reported Musculoskeletal: No symptoms reported Skin: No symptoms reported Neurological/Psychological: No symptoms reported Physical Exam - Vital signs Vitals: Temp Pulse Resp BP Pulse Ox 98.4 F 80 18 131/53 H 94 01/29/19 05:07 01/29/19 05:07 01/29/19 05:07 01/29/19 05:07 01/29/19 05:07 - Notes Notes: Vital signs reviewed, please refer to chart. Patient is normocephalic, atraumatic. Pupils equal round, reactive to light. Mild pharyngeal erythema without appreciable edema or asymmetry is noted. No cervical adenopathy, patient does complain of tenderness to palpation of the anterior neck. Neck is supple without meningismus. Heart is regular rate and rhythm. Lungs reveal diminished breath sounds in the left base. Abdomen is soft, nontender, normoactive bowel sounds throughout. Extremities without cyanosis, clubbing, edema. Peripheral pulses are equal. Skin is warm and dry. Patient is awake, alert, neurological exam is nonfocal. Course - Re-evaluation Re-evalutation: 01/29/19 08:48 Patient presents emergency department for evaluation of perceived swelling in his throat as well as cough. On exam there were diminished breath sounds in the left base. Chest x-ray was ordered. He is found to have a pleural effusion. The patient is an end-stage renal patient but was dialyzed yesterday. I do not have any chest x-rays that show significant effusion. We will treat this is infectious at this time. We will treat him with Levaquin. He is to follow-up with primary care, return to the emergency department with worsening or new concerning symptom - Vital Signs Vital signs: Temp Pulse Resp BP Pulse Ox 98.4 F 80 18 131/53 H 94 01/29/19 05:07 01/29/19 05:07 01/29/19 05:07 01/29/19 05:07 01/29/19 05:07 Discharge - Discharge Clinical Impression: Pleural effusion on left, Pneumonia Condition: Stable Disposition: HOME, SELF-CARE Admitting Provider: Shaji Instructions: Sore Throat ([facility]), Pneumonia ([facility]) Additional Instructions: Take antibiotic as prescribed until gone. Follow-up with your doctor next week. Return to the emergency department with worsening or new concerns of any sort. Referrals: KEEGAN MONTENEGRO MD [Primary Care Provider] - Follow up as needed
--- NOTE | 2019-01-29 08:16 | RADIOLOGY REPORT (SQ) ---
EXAM DESCRIPTION: CHEST SINGLE VIEW COMPLETED DATE/TIME: 01/29/2019 7:29 am REASON FOR STUDY: cough COMPARISON: 03/23/2017 EXAM PARAMETERS: NUMBER OF VIEWS: One view. TECHNIQUE: Single frontal radiographic view of the chest acquired. RADIATION DOSE: NA LIMITATIONS: None. FINDINGS: LUNGS AND PLEURA: Left-sided pleural effusion and/or pleural thickening. MEDIASTINUM AND HILAR STRUCTURES: No masses. Contour normal. HEART AND VASCULAR STRUCTURES: Cardiomegaly status post median sternotomy with CABG markers. BONES: No acute findings. HARDWARE: None in the chest. OTHER: Large bore left chest multi lumen vascular catheter. IMPRESSION: Left-sided pleural effusion and/or pleural thickening. No focal airspace opacity. TECHNICAL DOCUMENTATION: JOB ID: [id number] [employer]- All Rights Reserved Reading location - IP/workstation name: [email or web address]
[2019-01-29 12:39] VITALS: BP 156/57
[2019-01-29] MEDS ORDERED: LEVOFLOXACIN 750 MG TABLET PO ONE (13:03)
== END 2019-01-29 13:33 | disposition home or self-care (01) ==
LOC: ER 04:59
DX: J18.9 Pneumonia, unspecified organism (principal); J44.0 Chronic obstructive pulmonary disease with (acute) lower respiratory infection; I12.0 Hypertensive chronic kidney disease with stage 5 chronic kidney disease or end stage renal disease; E11.22 Type 2 diabetes mellitus with diabetic chronic kidney disease; Z99.2 Dependence on renal dialysis; N18.6 End stage renal disease; J90 Pleural effusion, not elsewhere classified; R05 Cough; Z87.891 Personal history of nicotine dependence; I25.10 Atherosclerotic heart disease of native coronary artery without angina pectoris; Z95.1 Presence of aortocoronary bypass graft; Z94.0 Kidney transplant status
CPT/HCPCS: 99283; 87070; 87880; 71045; A9270

== ENCOUNTER 2019-02-02 09:36 | Emergency (ER) | payer MEDICARE ==
[2019-02-02] MEDS ORDERED: IPRATROPIUM/ALBUTEROL 0.5-2.5 MG/3 ML AMPUL NEB ONE (10:08)
[2019-02-02] MEDS ORDERED: CEFTRIAXONE 1 GM/D5W RTU 1 GM/50 ML RTUPB IV ONE (10:08)
--- NOTE | 2019-02-02 10:15 | ER Document Report ---
ED General - General Chief Complaint: Cough Stated Complaint: RIB PAIN Time Seen by Provider: 02/02/19 09:44 Primary Care Provider: KEEGAN MONTENEGRO MD [Primary Care Provider] - Follow up tomorrow Mode of Arrival: Medic Information source: Patient Notes: Patient states that he has had a cough for the past month that worsened over the past week. Patient reports low-grade fever at home. Patient states that he was seen here 4 days ago was started on antibiotics to treat pneumonia. Patient states he had diarrhea x2 episodes today which prompted his visit here. Patient was on his way to go to dialysis, but did not dialyzed today. Patient typically dialyzes on Thursday. TRAVEL OUTSIDE OF THE [place] IN LAST 30 DAYS: No - HPI Onset: Other - Diarrhea this morning, cough times 1 month Onset/Duration: Worse Quality of pain: Achy Pain Level: 2 Associated symptoms: Chest pain - Right-sided chest pain with coughing, Productive cough, Diarrhea, Fever - Low-grade. denies: Nausea, Vomiting, Shortness of breath Exacerbated by: Denies Relieved by: Denies Similar symptoms previously: Yes Recently seen / treated by doctor: Yes - Related Data Allergies/Adverse Reactions: No Known Allergies Allergy (Verified 09/07/18 16:44) Past Medical History - General Information source: Patient - Social History Smoking Status: Never Smoker Frequency of alcohol use: None Drug Abuse: None Lives with: Family Family History: Reviewed & Not Pertinent, CAD - Medical History Medical History: Other - gullain barre - Past Medical History Cardiac Medical History: Reports: Hx Congestive Heart Failure, Hx Coronary Artery Disease, Hx Heart Attack - QUADRUPLE BYPASS 2007, HEART MURMUR, Hx Hypercholesterolemia, Hx Hypertension Pulmonary Medical History: Reports: Hx Asthma, Hx COPD, Hx Pneumonia - HX. GUILLAIN-BARRE' SYNDROME, Hx Intubation, Hx Respiratory Failure, Hx Sleep Apnea - On C Pap Neurological Medical History: Reports: Hx Cerebrovascular Accident - 2006 Endocrine Medical History: Reports: Hx Diabetes Mellitus Type 1 Renal/ Medical History: Reports: Hx End Stage Renal Disease, Hx Hemodialysis. Denies: Hx Peritoneal Dialysis GI Medical History: Reports: Hx Gastroesophageal Reflux Disease Musculoskeletal Medical History: Psychiatric Medical History: Denies: Hx Depression - anxiety Infectious Medical History: Reports: Hx C-Diff Past Surgical History: Reports: Hx Cardiac Catheterization, Hx Cardiac Surgery - bipass x4, Hx Coronary Artery Bypass Graft - Quadruple bypass 2007, Hx Kidney (Renal Surgery) - RENAL TRANSPLANT, Hx Vascular Surgery - left AV fistual, Other - History peritoneal dialysis catheter placement and removal - Immunizations Immunizations up to date: Yes Hx Diphtheria, Pertussis, Tetanus Vaccination: Yes - UTD Hx Pneumococcal Vaccination: 08/16/16 Review of Systems - Review of Systems Constitutional: Fever - low grade, Recent illness - recently started on levaquin for pneumonia EENT: No symptoms reported. denies: Throat pain Cardiovascular: Chest pain - right lower chest pain with cough Respiratory: Cough, Sputum, Wheezing. denies: Short of breath Gastrointestinal: Diarrhea Genitourinary: No symptoms reported. denies: Dysuria Male Genitourinary: No symptoms reported Musculoskeletal: No symptoms reported. denies: Back pain Skin: No symptoms reported Hematologic/Lymphatic: No symptoms reported Neurological/Psychological: No symptoms reported Physical Exam - Vital signs Vitals: Pulse Ox 96 02/02/19 09:47 - General General appearance: Appears well, Alert In distress: None - HEENT Head: Normocephalic, Atraumatic Eyes: Normal Conjunctiva: Normal Nasal: Normal Mouth/Lips: Normal Mucous membranes: Normal Pharynx: Normal. No: Erythema, Exudate, Potential airway comprom. Neck: Normal, Supple. No: Lymphadenopathy - Respiratory Respiratory status: No respiratory distress. No: Labored, Tachypnea Chest status: Nontender Breath sounds: Productive cough, Rhonchi, Wheezing Chest palpation: Normal - Cardiovascular Rhythm: Regular. No: Tachycardia Heart sounds: S1 appreciated, S2 appreciated Murmur: No - Abdominal Inspection: Normal Distension: No distension Bowel sounds: Normal Tenderness: Nontender Organomegaly: No organomegaly - Back Back: Normal, Nontender - Extremities General upper extremity: Normal inspection, Normal ROM General lower extremity: Other - Weakness to bilateral lower extremities - Neurological Neuro grossly intact: Yes Cognition: Normal Dominic Coma Scale Eye Opening: Spontaneous Dominic Coma Scale Verbal: Oriented Stamps Coma Scale Motor: Obeys Commands Dominic Coma Scale Total: 15 - Psychological Associated symptoms: Normal affect, Normal mood - Skin Skin Temperature: Warm Skin Moisture: Dry Skin Color: Normal Skin irregularity: Decubitus ulcer - Sacrum, stage II Course - Re-evaluation Re-evalutation: 02/02/19 12:[address] Heredia who is familiar with patient as she evaluated him 4 days ago and started him on the Levaquin. Patient does have findings concerning for worsening pneumonia on chest film. Patient still has a remaining 3 days of anabiotic's to treat the pneumonia. Patient without any findings worrisome for sepsis. Patient without any fever, no leukocytosis and stable vital signs at this time. Patient does have incidental positive C. difficile on stool specimen here today. Will start vancomycin after consultation with Dr. Heredia regarding antibiotic choice given his complex history. Discussed plan of care with patient and patient is agreeable with the discharge plan of care in the hopes to get him to dialysis today. Patient encouraged to follow-up with his primary doctor for close monitoring of his diarrhea symptoms as well as his pneumonia. Patient does not meet admission criteria at this time and is stable for discharge. - Vital Signs Vital signs: Temp Pulse Resp BP Pulse Ox 98.4 F 25 H 193/83 H 95 02/02/19 12:01 02/02/19 12:01 02/02/19 12:01 02/02/19 12:01 - Laboratory Result Diagrams: 02/02/19 10:22 02/02/19 10:22 Laboratory results interpreted by me: 02/02/19 02/02/19 10:22 10:22 RBC 4.29 L RDW 20.0 H Seg Neutrophils % 40.5 L Lymphocytes % 49.5 H Potassium 5.1 H BUN 37 H Creatinine 6.22 H Est GFR ( Amer) 11 L Est GFR (Non-Af Amer) 9 L Direct Bilirubin 0.5 H Alkaline Phosphatase 175 H Labs- Entire Visit 02/02/19 02/02/19 02/02/19 10:22 10:22 10:53 WBC 8.9 RBC 4.29 L Hgb 13.8 Hct 41.0 MCV 96 MCH 32.2 MCHC 33.7 RDW 20.0 H Plt Count 191 Seg Neutrophils % 40.5 L Lymphocytes % 49.5 H Monocytes % 8.5 Eosinophils % 1.0 Basophils % 0.5 Absolute Neutrophils 3.6 Absolute Lymphocytes 4.4 Absolute Monocytes 0.8 Absolute Eosinophils 0.1 Absolute Basophils 0.0 Sodium 140.5 Potassium 5.1 H Chloride 100 Carbon Dioxide 25 Anion Gap 16 BUN 37 H Creatinine 6.22 H Est GFR ( Amer) 11 L Est GFR (Non-Af Amer) 9 L Glucose 92 Calcium 9.4 Total Bilirubin 0.7 Direct Bilirubin 0.5 H Neonat Total Bilirubin Not Reportable Neonat Direct Bilirubin Not Reportable Neonat Indirect Bili Not Reportable AST 48 ALT 39 Alkaline Phosphatase 175 H Total Protein 8.1 Albumin 3.6 C. difficile Tox (PCR) POSITIVE - Diagnostic Test Radiology reviewed: Image reviewed, Reports reviewed Discharge - Discharge Clinical Impression: ESRD on hemodialysis, C. difficile diarrhea Pneumonia Qualifiers: Pneumonia type: due to unspecified organism Laterality: unspecified laterality Lung location: unspecified part of lung Qualified Code(s): J18.9 - Pneumonia, unspecified organism Condition: Stable Disposition: HOME, SELF-CARE Instructions: Antibiotic Therapy ([facility]), C. (Clostridium) Difficile Infection ([facility]), Pneumonia ([facility]), Rocephin ([facility]) Additional Instructions: Return immediately for any new or worsening symptoms Followup with your primary care provider, call tomorrow to make a followup appointment Prescriptions: Vancomycin HCl 125 mg PO QID #40 capsule Referrals: KEEGAN MONTENEGRO MD [Primary Care Provider] - Follow up tomorrow
--- NOTE | 2019-02-02 10:59 | RADIOLOGY REPORT (SQ) ---
EXAM DESCRIPTION: CHEST 2 VIEWS COMPLETED DATE/TIME: 02/02/2019 10:46 am REASON FOR STUDY: cough COMPARISON: 01/29/2019 EXAM PARAMETERS: NUMBER OF VIEWS: two views TECHNIQUE: Digital Frontal and Lateral radiographic views of the chest acquired. RADIATION DOSE: NA LIMITATIONS: none FINDINGS: LUNGS AND PLEURA: Worsening patchy airspace disease within the left mid lung and left lung base. Persistent dense left basilar opacification and [id number] effusion, not significantly changed. Unremarkable right hemithorax. No pneumothorax. . MEDIASTINUM AND HILAR STRUCTURES: Stable pre HEART AND VASCULAR STRUCTURES: Partially obscured and borderline at enlarged, stable. Aortic atheros clerosis. BONES: Median sternotomy changes. No acute findings. HARDWARE: Left approach central venous catheter with tip at right atrium. Median sternotomy and CABG changes. OTHER: No other significant finding. IMPRESSION: New left mid and basilar airspace disease compatible with pneumonia. Dense left basilar opacification, likely combination of mild to moderate effusion and airspace diseas e. Findings stable from recent prior but new from more remote priors. Underlying lesion is not excl uded. Follow-up recommended to ensure resolution. TECHNICAL DOCUMENTATION: JOB ID: [id number] [employer]- All Rights Reserved Reading location - IP/workstation name: [email or web address]
[2019-02-02 11:04] LABS: ALANINE AMINOTRANSFERASE 39 U/L (21-72); ALBUMIN 3.6 g/dL (3.5-5.0); ALKALINE PHOSPHATASE 175 U/L (38-126); ANION GAP 16 (5-19); ASPARTATE AMINO TRANSFERASE 48 U/L (17-59); BILIRUBIN,DIRECT 0.5 mg/dL (0.0-0.4); BILIRUBIN,TOTAL 0.7 mg/dL (0.2-1.3); BLOOD UREA NITROGEN 37 mg/dL (7-20); CALCIUM 9.4 mg/dL (8.4-10.2); CARBON DIOXIDE 25 mmol/L (22-30); CHLORIDE 100 mmol/L (98-107); GLUCOSE 92 mg/dL (75-110); POTASSIUM 5.1 mmol/L (3.6-5.0); SODIUM 140.5 mmol/L (137-145); TOTAL PROTEIN 8.1 g/dL (6.3-8.2)
[2019-02-02 11:11] LABS: ABSOLUTE EOSINOPHILS # (AUTO) 0.1 10^3/uL (0.0-0.6); ABSOLUTE LYMPHOCYTES (AUTO) 4.4 10^3/uL (0.5-4.7); ABSOLUTE MONOCYTES (AUTO) 0.8 10^3/uL (0.1-1.4); ABSOLUTE NEUT (AUTO) 3.6 10^3/uL (1.7-8.2); BASOPHILS % (AUTO) 0.5 % (0-2); HEMOGLOBIN 13.8 g/dL (13.5-17.0); LYMPHOCYTES % (AUTO) 49.5 % (13-45); MEAN CORPUSCULAR HEMOGLOBIN 32.2 pg (27.0-33.4); MEAN CORPUSCULAR HGB CONC 33.7 g/dL (32.0-36.0); MEAN CORPUSCULAR VOLUME 96 fl (80-97); MONOCYTES % (AUTO) 8.5 % (3-13); PLATELET COUNT 191 10^3/uL (150-450); RED BLOOD COUNT 4.29 10^6/uL (4.35-5.55); SEGMENTED NEUTROPHILS % (AUTO) 40.5 % (42-78); TOTAL CELLS COUNTED % (AUTO) 100 %; WHITE BLOOD COUNT 8.9 10^3/uL (4.0-10.5)
[2019-02-02] MEDS ORDERED: VANCOMYCIN HCL INJ 500 MG VIAL PO ONE (12:05)
[2019-02-02 12:37] VITALS: BP 193/83
--- NOTE | 2019-02-02 23:30 | EKG REPORT ---
SEVERITY:- ABNORMAL ECG - SINUS RHYTHM FIRST DEGREE AV BLOCK PROBABLE LEFT ATRIAL ABNORMALITY INFERIOR INFARCT, OLD ANTEROLATERAL INFARCT, RECENT : Confirmed by: Zoe Lazo 02-Feb-2019 23:30:15
== END 2019-02-02 12:30 | disposition home or self-care (01) ==
LOC: ER 09:36
DX: A04.72 Enterocolitis due to Clostridium difficile, not specified as recurrent (principal); J18.9 Pneumonia, unspecified organism; J44.0 Chronic obstructive pulmonary disease with (acute) lower respiratory infection; I12.0 Hypertensive chronic kidney disease with stage 5 chronic kidney disease or end stage renal disease; E10.22 Type 1 diabetes mellitus with diabetic chronic kidney disease; N18.6 End stage renal disease; Z99.2 Dependence on renal dialysis; R05 Cough; R07.81 Pleurodynia; L89.152 Pressure ulcer of sacral region, stage 2
CPT/HCPCS: 93005; 99285; 96365; 36415; 87040; 87070; 87045; 87205; 85025; 87077; 80053; 87186; 87493; 71046; 93010; J3370; J0696; A9270; J7620

== ENCOUNTER 2019-05-13 22:51 | Emergency (ER) | payer OTHER, MEDICARE ==
[2019-05-14] MEDS ORDERED: CEPHALEXIN 500 MG CAPSULE PO ONE (00:19)
[2019-05-14] MEDS ORDERED: DOXYCYCLINE HYCLATE 100 MG TABLET PO ONE (00:19)
--- NOTE | 2019-05-14 00:21 | ER Document Report ---
ED General - General Chief Complaint: Wound Infection Stated Complaint: SURGICAL SITE PAIN Time Seen by Provider: 05/13/19 23:39 Primary Care Provider: SANTHOSH STRONG DPM [Primary Care Provider] - Follow up as needed Notes: Patient is a 63-year-old male with a past medical history of end-stage renal disease with dialysis dependence who presents with drainage and increasing pain as well as erythema around an attempted AV fistula site in the left upper extremity around the brachial area. The procedure was approximately 1 month ago and placement of the AV fistula was unsuccessful. The patient states that the wound had been healing well into the past 1 week in which she noticed increasing drainage, bleeding and pain to the area. Notes a throbbing, aching, mild to moderate discomfort to the area worsened by palpation. Nothing improves this discomfort. He denies fever or constitutional symptoms. He has not contacted his surgeon regarding today's concerns. No history of similar symptoms in the past. TRAVEL OUTSIDE OF THE [place] IN LAST 30 DAYS: No - Related Data Allergies/Adverse Reactions: No Known Allergies Allergy (Verified 09/07/18 16:44) Past Medical History - General Information source: Patient - Social History Smoking Status: Never Smoker Frequency of alcohol use: None Drug Abuse: None Family History: Reviewed & Not Pertinent, CAD Patient has suicidal ideation: No Patient has homicidal ideation: No - Past Medical History Cardiac Medical History: Reports: Hx Congestive Heart Failure, Hx Coronary Artery Disease, Hx Heart Attack - QUADRUPLE BYPASS 2007, HEART MURMUR, Hx Hypercholesterolemia, Hx Hypertension Pulmonary Medical History: Reports: Hx Asthma, Hx COPD, Hx Pneumonia - HX. GUILLAIN-BARRE' SYNDROME, Hx Intubation, Hx Respiratory Failure, Hx Sleep Apnea - On C Pap Neurological Medical History: Reports: Hx Cerebrovascular Accident - 2006 Endocrine Medical History: Reports: Hx Diabetes Mellitus Type 1, Hx Diabetes Mellitus Type 2 Renal/ Medical History: Reports: Hx End Stage Renal Disease, Hx Hemodialysis. Denies: Hx Peritoneal Dialysis GI Medical History: Reports: Hx Gastroesophageal Reflux Disease Musculoskeletal Medical History: Psychiatric Medical History: Denies: Hx Depression - anxiety Infectious Medical History: Reports: Hx C-Diff Past Surgical History: Reports: Hx Cardiac Catheterization, Hx Cardiac Surgery - bipass x4, Hx Coronary Artery Bypass Graft - Quadruple bypass 2007, Hx Kidney (Renal Surgery) - RENAL TRANSPLANT, Hx Vascular Surgery - left AV fistual, Other - History peritoneal dialysis catheter placement and removal - Immunizations Immunizations up to date: Yes Hx Diphtheria, Pertussis, Tetanus Vaccination: Yes - UTD Hx Pneumococcal Vaccination: 08/16/16 Review of Systems - Review of Systems Notes: Constitutional: Negative for fever. HENT: Negative for sore throat. Eyes: Negative for visual changes. Cardiovascular: Negative for chest pain. Respiratory: Negative for shortness of breath. Gastrointestinal: Negative for abdominal pain, vomiting or diarrhea. Genitourinary: Negative for dysuria. Musculoskeletal: Negative for back pain. Skin: Positive for wound erythema and drainage to the left upper extremity. Neurological: Negative for headaches, weakness or numbness. 10 point ROS negative except as marked above and in HPI. Physical Exam - Vital signs Vitals: Temp Pulse Resp BP Pulse Ox 98.2 F 80 18 146/67 H 94 05/13/19 22:57 05/13/19 22:57 05/13/19 22:57 05/13/19 22:57 05/13/19 22:57 Interpretation: Hypertensive Notes: PHYSICAL EXAMINATION: GENERAL: Well-appearing, well-nourished and in no acute distress. HEAD: Atraumatic, normocephalic. EYES: Pupils equal round and reactive to light, extraocular movements intact, sclera anicteric, conjunctiva are normal. ENT: nares patent, oropharynx clear without exudates. Moist mucous membranes. NECK: Normal range of motion, supple without lymphadenopathy LUNGS: Breath sounds clear to auscultation bilaterally and equal. No wheezes r ales or rhonchi. HEART: Regular rate and rhythm without murmurs ABDOMEN: Soft, nontender, normoactive bowel sounds. No guarding, no rebound. No masses appreciated. EXTREMITIES: Normal range of motion, no pitting or edema. No cyanosis. NEUROLOGICAL: No focal neurological deficits. Moves all extremities spontaneously and on command. PSYCH: Normal mood, normal affect. SKIN: Warm, Dry, normal turgor, there is a 3 cm surgical incision along the left proximal upper extremity along the brachial area that does have a purulent, bloody expression on palpation. There is approximately a 3 x 4 cm area surrounding erythema without induration. No appreciable drainable fluid collection. No streaking redness. No axillary lymphadenopathy Course - Re-evaluation Re-evalutation: 05/14/19 00:18 Patient presents with symptoms most consistent with an acute cellulitis with associated wound infection. Vitals within normal limits. Patient does not meet sepsis criteria is overall very well in appearance. No drainable fluid collection on bedside exam.patient will be started on coverage for both staph and strep. I have elected for doxycycline for coverage of MRSA given patient's renal impairment as well as use of lisinopril making trimethoprim sulfamethoxazole and unsafe option. Patient will also be placed on cephalexin for better coverage of strep. At this time will discharge with return precautions and follow-up recommendations. Verbal discharge instructions given a the bedside and opportunity for questions given. Medication warnings reviewed. Patient is in agreement with this plan and has verbalized understanding of return precautions and the need for primary care follow-up in the next 24-72 hours. - Vital Signs Vital signs: Temp Pulse Resp BP Pulse Ox 98.2 F 80 18 146/67 H 94 05/13/19 22:57 05/13/19 22:57 05/13/19 22:57 05/13/19 22:57 05/13/19 22:57 Discharge - Discharge Clinical Impression: Wound infection, Cellulitis of left upper extremity, Chronic renal failure, st age 4 (severe) Condition: Stable Disposition: HOME, SELF-CARE Additional Instructions: The rash is likely due to infection of your wound. You need to take the antibiotics as prescribed. Do not stop even if the rash goes away until you have completed all the antibiotics. Your surgeon needs to be aware of this wound infection. Please contact them tomorrow morning. You should also return if you develop fevers with temperature greater than 101, persistent vomiting, worsening pain, or have any other symptoms that are concerning to you. Prescriptions: Cephalexin Monohydrate [Keflex 500 mg Capsule] 500 mg PO Q6H 10 Days capsule Doxycycline Monohydrate 100 mg PO BID #20 capsule Referrals: SANTHOSH STRONG DPM [Primary Care Provider] - Follow up tomorrow
[2019-05-14 01:36] VITALS: BP 142/67
== END 2019-05-14 02:05 | disposition home or self-care (01) ==
LOC: ER 22:51
DX: T81.41XA Infection following a procedure, superficial incisional surgical site, initial encounter (principal); L03.114 Cellulitis of left upper limb; Y83.8 Other surgical procedures as the cause of abnormal reaction of the patient, or of later complication, without mention of misadventure at the time of the procedure; I13.0 Hypertensive heart and chronic kidney disease with heart failure and stage 1 through stage 4 chronic kidney disease, or unspecified chronic kidney disease; E11.22 Type 2 diabetes mellitus with diabetic chronic kidney disease; N18.4 Chronic kidney disease, stage 4 (severe); I50.9 Heart failure, unspecified; Z99.2 Dependence on renal dialysis; Z95.1 Presence of aortocoronary bypass graft; E78.00 Pure hypercholesterolemia, unspecified; Z86.73 Personal history of transient ischemic attack (TIA), and cerebral infarction without residual deficits
CPT/HCPCS: 99283

== ENCOUNTER 2019-07-06 18:52 | Emergency (ER) | payer OTHER, MEDICARE ==
[2019-07-06] MEDS ORDERED: MECLIZINE HCL 25 MG TABLET PO ONE (19:53)
--- NOTE | 2019-07-06 20:27 | RADIOLOGY REPORT (SQ) ---
EXAM DESCRIPTION: Left femur RadLex: XR FEMUR 2 VIEWS Views: 2 CLINICAL HISTORY: 63 years Male, bone tenderness COMPARISON: None. FINDINGS: There is severe diffuse osteopenia, with scattered lucencies throughout all visualized bones. Extensive vascular calcifications are also noted. No acute cortical disruption. No displaced fractures. No hyperdense foreign bodies. No hip or knee dislocation. IMPRESSION: 1. Severe osteopenia with diffuse scattered lucencies. This may indicate an underlying metabolic disorder (or possibly metastatic disease). Please correlate with clinical history. 2. No acute fractures.
--- NOTE | 2019-07-06 21:36 | ER Document Report ---
Entered by SALEEM GUTIERREZ SCRIBE 07/06/192021 Acting as scribe for:NIKITA MIRELES MD ED Extremity Problem, Lower - General Chief Complaint: Thigh Pain Stated Complaint: LEFT LEG PAIN Time Seen by Provider: 07/06/19 19:37 Primary Care Provider: KEEGAN GIRARD MD [Primary Care Provider] - Follow up as needed Notes: Patient is a 63-year-old male who presents to the emergency department today with complaints of left medial thigh pain. Patient states this pain began around bedtime last night and is continuing today. Patient states this pain has not gotten any better but has not gotten any worse either. 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 Patient is on plavix and aspirin. Patient denies fevers. TRAVEL OUTSIDE OF THE [place] IN LAST 30 DAYS: No - Related Data Allergies/Adverse Reactions: No Known Allergies Allergy (Verified 09/07/18 16:44) Past Medical History - General Information source: Patient - Social History Smoking Status: Never Smoker Cigarette use (# per day): No Frequency of alcohol use: None Drug Abuse: None Lives with: Family Family History: Reviewed & Not Pertinent, CAD Patient has suicidal ideation: No Patient has homicidal ideation: No - Past Medical History Cardiac Medical History: Reports: Hx Congestive Heart Failure, Hx Coronary Artery Disease, Hx Heart Attack - QUADRUPLE BYPASS 2007, HEART MURMUR, Hx Hypercholesterolemia, Hx Hypertension Pulmonary Medical History: Reports: Hx Asthma, Hx COPD, Hx Pneumonia - HX. GUILLAIN-BARRE' SYNDROME, Hx Intubation, Hx Respiratory Failure, Hx Sleep Apnea - On C Pap Neurological Medical History: Reports: Hx Cerebrovascular Accident - 2006 Endocrine Medical History: Reports: Hx Diabetes Mellitus Type 1, Hx Diabetes Mellitus Type 2 Renal/ Medical History: Reports: Hx End Stage Renal Disease, Hx Hemodialysis. Denies: Hx Peritoneal Dialysis GI Medical History: Reports: Hx Gastroesophageal Reflux Disease Musculoskeletal Medical History: Psychiatric Medical History: Denies: Hx Depression - anxiety Infectious Medical History: Reports: Hx C-Diff Past Surgical History: Reports: Hx Cardiac Catheterization, Hx Cardiac Surgery - bipass x4, Hx Coronary Artery Bypass Graft - Quadruple bypass 2007, Hx Kidney (Renal Surgery) - RENAL TRANSPLANT, Hx Vascular Surgery - left AV fistual, Other - History peritoneal dialysis catheter placement and removal - Immunizations Immunizations up to date: Yes Hx Diphtheria, Pertussis, Tetanus Vaccination: Yes - UTD Hx Pneumococcal Vaccination: 08/16/16 Review of Systems - Review of Systems Constitutional: denies: Fever EENT: No symptoms reported Cardiovascular: No symptoms reported Respiratory: No symptoms reported Gastrointestinal: No symptoms reported Genitourinary: No symptoms reported Male Genitourinary: No symptoms reported Musculoskeletal: See HPI, Joint pain - LLE pain Skin: No symptoms reported Hematologic/Lymphatic: No symptoms reported Neurological/Psychological: No symptoms reported -: Yes All other systems reviewed and negative Physical Exam - Vital signs Vitals: Resp Pulse Ox 21 H 98 07/06/19 19:07 07/06/19 19:07 - Notes Notes: Physical Exam: General: Alert, appears well. HEENT: Normocephalic. Atraumatic. PERRL. Extraocular movements intact. Oropharynx clear. Neck: Supple. Non-tender. Respiratory: No respiratory distress. Clear and equal breath sounds bilaterally. Cardiovascular: Regular rate and rhythm. Abdominal: Normal Inspection. Non-tender. No distension. Normal Bowel Sounds. Back: Grossly normal Neurological: Normal cognition. AAOx4. Normal speech. Psychological: Normal affect. Normal Mood. Skin: Warm. Dry. Normal color. - Extremities General upper extremity: Other - AV shunts General lower extremity: Edema - Left greater than right Thigh: Other - The left medial thigh has a linear indurated tender area corresponding to the superficial femoral vein. There is some erythema. It becomes most swollen in the proximal aspect. Calf: Nontender - Neurological Neuro grossly intact: Yes - Patient does have decreased sensation to the feet secondary to his DPN - Psychological Associated symptoms: Normal affect, Normal mood - Skin Skin Temperature: Warm Skin Moisture: Dry Skin Color: Normal Course - Vital Signs Vital signs: Temp Pulse Resp BP Pulse Ox 25 H 137/83 H 94 07/07/19 01:28 07/07/19 01:28 07/07/19 01:28 - Laboratory Result Diagrams: 07/06/19 22:16 07/06/19 22:16 Laboratory results interpreted by me: 07/06/19 07/06/19 22:16 22:16 RBC 4.23 L Hgb 13.2 L RDW 15.9 H Seg Neutrophils % 37.9 L Creatinine 2.56 H Est GFR ( Amer) 31 L Est GFR (MDRD) Non-Af 26 L Glucose 72 L Direct Bilirubin 0.6 H Alkaline Phosphatase 130 H Total Protein 9.1 H - Diagnostic Test Radiology reviewed: Image reviewed - The preliminary report on the venous Doppler is negative for DVT. The tech also reports not seeing any clot in the superficial femoral vein either. She does notice some soft tissue swelling proximally which was also noted on physical exam., Reports reviewed - CT scan of the thigh is read as diffuse subcutaneous edema along the lateral aspect of the distal thigh and knee. - EKG Interpretation by Me EKG shows normal: Sinus rhythm, [place], ST-T Waves. abnormal: Intervals - Prolonged QT interval, QRS Complexes - Old inferior and anterior MIs Rate: Normal - 84 Rhythm: NSR P Waves: LAE - Consults Dr. Girard Time consulted: 23:20 Consulted provider: follow-up in office Discharge - Discharge Clinical Impression: Left thigh pain Condition: Stable Disposition: HOME, SELF-CARE Additional Instructions: There was no obvious explanation for the painful swelling you have along your medial thigh. Follow-up with Dr. Girard today in the office for recheck, and review of your labs and scans and x-rays. RETURN TO THE EMERGENCY ROOM IF ANY NEW OR WORSENING SYMPTOMS. Referrals: KEEGAN GIRARD MD [Primary Care Provider] - 07/07/19 Scribe Attestation: 07/06/19 20:30 I personally performed the services described in the documentation, reviewed and edited the documentation which was dictated to the scribe in my presence, and it accurately records my words and actions. I personally performed the services described in the documentation, reviewed and edited the documentation which was dictated to the scribe in my presence, and it accurately records my words and actions.
[2019-07-06 22:28] LABS: ABSOLUTE EOSINOPHILS # (AUTO) 0.2 10^3/uL (0.0-0.6); ABSOLUTE LYMPHOCYTES (AUTO) 2.3 10^3/uL (0.5-4.7); ABSOLUTE MONOCYTES (AUTO) 0.6 10^3/uL (0.1-1.4); BASOPHILS % (AUTO) 0.8 % (0-2); EOSINOPHILS % (AUTO) 4.8 % (0-6); HEMATOCRIT 39.8 % (37.9-51.0); HEMOGLOBIN 13.2 g/dL (13.5-17.0); LYMPHOCYTES % (AUTO) 44.8 % (13-45); MEAN CORPUSCULAR HEMOGLOBIN 31.3 pg (27.0-33.4); MEAN CORPUSCULAR HGB CONC 33.2 g/dL (32.0-36.0); MEAN CORPUSCULAR VOLUME 94 fl (80-97); MONOCYTES % (AUTO) 11.7 % (3-13); PLATELET COUNT 225 10^3/uL (150-450); RED BLOOD COUNT 4.23 10^6/uL (4.35-5.55); RED CELL DISTRIBUTION WIDTH 15.9 % (11.5-14.0); SEGMENTED NEUTROPHILS % (AUTO) 37.9 % (42-78); TOTAL CELLS COUNTED % (AUTO) 100 %; WHITE BLOOD COUNT 5.2 10^3/uL (4.0-10.5)
[2019-07-06 22:44] LABS: ALBUMIN 3.6 g/dL (3.5-5.0); ALKALINE PHOSPHATASE 130 U/L (38-126); ANION GAP 9 (5-19); ASPARTATE AMINO TRANSFERASE 30 U/L (17-59); BILIRUBIN,DIRECT 0.6 mg/dL (0.0-0.4); BILIRUBIN,TOTAL 0.9 mg/dL (0.2-1.3); BLOOD UREA NITROGEN 10 mg/dL (7-20); CALCIUM 8.8 mg/dL (8.4-10.2); CARBON DIOXIDE 29 mmol/L (22-30); CHLORIDE 102 mmol/L (98-107); CREATINE KINASE 119 U/L (55-170); GLUCOSE 72 mg/dL (75-110); POTASSIUM 4.2 mmol/L (3.6-5.0); TOTAL PROTEIN 9.1 g/dL (6.3-8.2)
--- NOTE | 2019-07-07 01:51 | RADIOLOGY REPORT (SQ) ---
EXAM DESCRIPTION: CT LOWER EXTREMITY WITHOUT IV CONTRAST COMPLETED DATE/TME: 07/07/2019 00:00 CLINICAL HISTORY: 63 years, Male, Pain and swelling along medial thigh, dialysis pt COMPARISON: Plain films 07/06/2019 TECHNIQUE: 696 Images stored on PACS. All CT scanners at this facility use dose modulation, iterative reconstruction, and/or weight based dosing when appropriate to reduce radiation dose to as low as reasonably achievable (ALARA). [facility]: Dose Right [facility]: CareDose [facility]: Dose Right [facility]: Teradose 4D [facility]: Clippership Intl LIMITATIONS: None. FINDINGS: Large amount stool in the visualized rectal vault. Severe atheromatous calcifications. Diffuse subcutaneous edema. More extensive fluid along the lateral aspect of the distal thigh and knee. Small suprapatellar joint effusion. Severe osteopenia. No evidence for an acute fracture or dislocation. Lucencies appearing more pronounced in the region of the distal femur are noted, however findings likely reflect the severe osteopenia. No definitive lytic or blastic change. Degenerative change of the knee and hip IMPRESSION: Diffuse subcutaneous edema as above. Small suprapatellar joint effusion. Severe vascular calcifications. Severe osteopenia. TECHNICAL DOCUMENTATION: Quality ID # [id number]: Final reports with documentation of one or more dose reduction techniques (e.g., Automated exposure control, adjustment of the mA and/or kV according to patient size, use of iterative reconstruction technique) copyright 2010 [employer]- All Rights Reserved
[2019-07-07 07:08] VITALS: BP 147/71
--- NOTE | 2019-07-07 08:26 | RADIOLOGY REPORT (SQ) ---
EXAM DESCRIPTION: VENOUS UNILATERAL LOWER COMPLETED DATE/TIME: 07/07/2019 8:15 am REASON FOR STUDY: LLE PAIN/SWELLING COMPARISON: None. TECHNIQUE: Dynamic and static kruse scale and color images acquired of the left leg venous system. Se lected spectral images acquired with additional compression and augmentation maneuvers. The contralat eral common femoral vein and saphenofemoral junction were also imaged. Images stored on PACS. LIMITATIONS: None. FINDINGS: COMMON FEMORAL: Normal phasicity, compression and augmentation. No visualized echogenic ma terial on kruse scale. No defects on color images. FEMORAL: Normal compression and augmentation. No visualized echogenic material on kruse scale. No defe cts on color images. POPLITEAL: Normal compression, augmentation. No visualized echogenic material on kruse scale. No defec ts on color images. CALF VESSELS: Normal compression, augmentation. No visualized echogenic material on kruse scale. No de fects on color images. GSV and SSV: Normal compression, augmentation. No visualized echogenic material on kruse scale. No def ects on color images. ANY DEEP VENOUS INSUFFICIENCY: Not evaluated. ANY EVIDENCE OF POPLITEAL CYST: No. OTHER: No other significant finding. CONTRALATERAL COMMON FEMORAL VEIN AND SAPHENOFEMORAL JUNCTION: Normal phasicity, compression and augmentation. No visualized echogenic material on kruse scale. No de fects on color images. IMPRESSION: NO EVIDENCE OF DVT OR SVT IN THE LEFT LEG. TECHNICAL DOCUMENTATION: JOB ID: [id number] [employer]- All Rights Reserved Reading location - IP/workstation name: [email or web address]
--- NOTE | 2019-07-07 09:04 | EKG REPORT ---
SEVERITY:- ABNORMAL ECG - SINUS RHYTHM PROBABLE LEFT ATRIAL ABNORMALITY PROBABLE INFERIOR INFARCT, AGE INDETERMINATE ANTERIOR INFARCT, AGE INDETERMINATE PROLONGED QT INTERVAL : Confirmed by: Samia Roper MD 07-Jul-2019 09:03:26
== END 2019-07-07 07:42 | disposition home or self-care (01) ==
LOC: ER 18:52
DX: M79.652 Pain in left thigh (principal); L53.9 Erythematous condition, unspecified; M79.89 Other specified soft tissue disorders; M25.50 Pain in unspecified joint; M25.469 Effusion, unspecified knee; E11.40 Type 2 diabetes mellitus with diabetic neuropathy, unspecified; G61.0 Guillain-Barre syndrome; I25.10 Atherosclerotic heart disease of native coronary artery without angina pectoris; J44.9 Chronic obstructive pulmonary disease, unspecified; Z79.82 Long term (current) use of aspirin; Z79.02 Long term (current) use of antithrombotics/antiplatelets; Z95.5 Presence of coronary angioplasty implant and graft; Z94.0 Kidney transplant status
CPT/HCPCS: 36415; 80053; 82550; 83605; 84484; 85025; 87040; 93005; 93010; 93971; 99285

== ENCOUNTER 2019-07-23 00:14 | Emergency (ER) | payer OTHER, MEDICARE ==
[2019-07-23] MEDS ORDERED: IPRATROPIUM/ALBUTEROL 0.5-2.5 MG/3 ML AMPUL NEB ONE (00:50)
--- NOTE | 2019-07-23 01:14 | ER Document Report ---
ED General - General Chief Complaint: Shortness Of Breath Stated Complaint: COUGH Time Seen by Provider: 07/23/19 00:44 Primary Care Provider: KEEGAN MONTENEGRO MD [Primary Care Provider] - Follow up as needed Notes: Patient is a pleasant 63-year-old male with a history of dialysis who presents with complaint of cough and some difficulty breathing started what is now yesterday morning. He had dialysis on Thursday (yesterday morning). Denies any complications or dialysis. Denies of fevers. No vomiting. No chest pain. He says that since the biomedical engineering technician spit up to him up and brought him here he is start to feel better. Paramedics did not give any breathing treatments. They did place him on oxygen and his pulse oximeter was reading in the 80s. Patient has no other complaints at this time. TRAVEL OUTSIDE OF THE [place] IN LAST 30 DAYS: No - Related Data Allergies/Adverse Reactions: No Known Allergies Allergy (Verified 09/07/18 16:44) Past Medical History - Social History Smoking Status: Former Smoker Frequency of alcohol use: None Drug Abuse: None Family History: Reviewed & Not Pertinent, CAD - Past Medical History Cardiac Medical History: Reports: Hx Congestive Heart Failure, Hx Coronary Artery Disease, Hx Heart Attack - QUADRUPLE BYPASS 2007, HEART MURMUR, Hx Hypercholesterolemia, Hx Hypertension Pulmonary Medical History: Reports: Hx Asthma, Hx COPD, Hx Pneumonia - HX. GUILLAIN-BARRE' SYNDROME, Hx Intubation, Hx Respiratory Failure, Hx Sleep Apnea - On C Pap Neurological Medical History: Reports: Hx Cerebrovascular Accident - 2006 Endocrine Medical History: Reports: Hx Diabetes Mellitus Type 1, Hx Diabetes Mellitus Type 2 Renal/ Medical History: Reports: Hx End Stage Renal Disease, Hx Hemodialysis. Denies: Hx Peritoneal Dialysis GI Medical History: Reports: Hx Gastroesophageal Reflux Disease Musculoskeletal Medical History: Psychiatric Medical History: Denies: Hx Depression - anxiety Infectious Medical History: Reports: Hx C-Diff Past Surgical History: Reports: Hx Cardiac Catheterization, Hx Cardiac Surgery - bipass x4, Hx Coronary Artery Bypass Graft - Quadruple bypass 2007, Hx Kidney (Renal Surgery) - RENAL TRANSPLANT, Hx Vascular Surgery - left AV fistual, Other - History peritoneal dialysis catheter placement and removal - Immunizations Immunizations up to date: Yes Hx Diphtheria, Pertussis, Tetanus Vaccination: Yes - UTD Hx Pneumococcal Vaccination: 10/01/16 Review of Systems - Review of Systems Notes: My Normal Review Basic REVIEW OF SYSTEMS: CONSTITUTIONAL : Denies fever, chills, or sweats. Denies recent illness. EENT: Denies eye, ear, throat, or mouth pain or symptoms. Denies nasal or sinus congestion. CARDIOVASCULAR: Denies chest pain. RESPIRATORY: Cough. Some difficulty breathing tonight. GASTROINTESTINAL: Denies abdominal pain. Denies nausea, vomiting, or diarrhea. MUSCULOSKELETAL: Denies neck or back pain or joint pain or swelling. SKIN: Denies rash or skin lesions. NEUROLOGICAL: Denies altered mental status or loss of consciousness. Denies headache. Denies weakness or paralysis or loss of use of either side. Denies problems with gait or speech. Denies sensory or motor loss. ALL OTHER SYSTEMS REVIEWED AND NEGATIVE. Physical Exam - Vital signs Vitals: Temp Pulse Resp BP Pulse Ox 98.8 F 96 18 151/95 H 96 07/23/19 00:20 07/23/19 00:20 07/23/19 00:20 07/23/19 00:20 07/23/19 00:20 - Notes Notes: General Appearance: Well nourished, alert, cooperative, no acute distress, no obvious discomfort. Well-appearing. Vitals: reviewed, See vital signs table. Head: no swelling or tenderness to the head Eyes: PERRL, EOMI, Conjuctiva clear Mouth: No decreasd moisture Throat: No tonsillar inflammation, No airway obstruction, No lymphadenopathy Neck: Supple, no neck tenderness, No thyromegaly Lungs: No wheezing, No rales, some scattered rhonci, No accessory muscle use, good air exchange bilaterally. Heart: Normal rate, Regular rythm, No murmur, no rub Abdomen: Normal BS, soft, No rigidity, No abdominal tenderness, No guarding, no rebound, no abdominal masses, no organomegaly Extremities: good pulses in all extremities, no swelling or tenderness in the extremities, no edema. Skin: warm, dry, appropriate color, no rash Neuro: speech clear, oriented x 3, normal affect, responds appropriately to questions. Course - Re-evaluation Re-evalutation: 07/23/19 04:30 On exam patient continues look well. Medics said that he initially had a pulse ox in the 80s there for the placement oxygen. Patient initially had some rh onchorous breath sounds which again breathing treatment for. I turned off his oxygen as the patient was only on 2 L when I first into the room his oxygen saturation was 100%. Patient is now had his oxygen turned off and his O2 saturation is been 95 to 97% on room air whenever I go and check on him. He has no increased work of breathing. He looks very comfortable. Heart rate is normal. Chest x-ray does show some right lower lobe pneumonia. Feel he is appropriate for outpatient treatment being that he has completely normal vital signs and clinically looks well. Patient says he does feel improved and is agreeable with this. I informed patient that even though he is feeling improved now that he should still have a very low threshold to return to ER if he has difficulty breathing, fevers, or if he feels like he is worsening any way. Patient agrees with plan will be discharged home. Dictation of this chart was performed using voice recognition software; therefore, there may be some unintended grammatical errors. 07/23/19 04:30 - Vital Signs Vital signs: Temp Pulse Resp BP Pulse Ox 98.0 F 86 18 137/71 H 93 07/23/19 03:45 07/23/19 03:45 07/23/19 03:45 07/23/19 03:45 07/23/19 03:45 - Laboratory Result Diagrams: 07/23/19 01:20 07/23/19 01:20 Laboratory results interpreted by me: 07/23/19 07/23/19 01:20 01:20 RBC 4.23 L Hgb 12.8 L RDW 15.2 H Eos % (Auto) 6.6 H Seg Neutrophils % 38.4 L Creatinine 3.18 H Est GFR ( Amer) 24 L Est GFR (MDRD) Non-Af 20 L Glucose 111 H Discharge - Discharge Clinical Impression: ESRD needing dialysis Pneumonia Qualifiers: Pneumonia type: due to unspecified organism Laterality: right Lung location: lower lobe of lung Qualified Code(s): J18.1 - Lobar pneumonia, unspecified organism Condition: Good Disposition: HOME, SELF-CARE Additional Instructions: Your chest x-ray does show that you have a pneumonia developing in the right lung. I have given you a dose of an antibiotic called doxycycline. I have written you prescription for the remainder of the antibiotic course which is 7 days. Please take the antibiotic as prescribed. Doxycycline will make your skin more sensitive to the sun so please make sure you keep your skin covered or wear sunscreen whenever out in the sun. Currently your oxygenation is normal. Your vital signs are normal. I therefore feel it is okay to let you go home. I still want you to have a low threshold to return to the ER if you feel like you are having difficulty breathing, fevers, or feel like you are worsening in any way. Please call Dr. Montenegro's office Thursday to follow up for reevaluation. Prescriptions: Doxycycline Hyclate 100 mg PO BID #14 capsule Referrals: KEEGAN MONTENEGRO MD [Primary Care Provider] - 07/25/19
--- NOTE | 2019-07-23 01:32 | RADIOLOGY REPORT (SQ) ---
CLINICAL HISTORY: dyspnea COMPARISON: None. TECHNIQUE: XR CHEST 1 VIEW 07/23/2019 12:50 AM CDT FINDINGS: The heart is borderline in size following sternotomy. There is right basilar airspace disease. There is a small left pleural effusion. There is no pneumothorax. There are no acute osseous findings. Left central line tip is in the lower SVC. IMPRESSION: Suspect right basilar pneumonia.
[2019-07-23 01:36] LABS: ABSOLUTE BASOPHILS # (AUTO) 0.1 10^3/uL (0.0-0.2); ABSOLUTE EOSINOPHILS # (AUTO) 0.3 10^3/uL (0.0-0.6); ABSOLUTE LYMPHOCYTES (AUTO) 2.2 10^3/uL (0.5-4.7); ABSOLUTE MONOCYTES (AUTO) 0.6 10^3/uL (0.1-1.4); BASOPHILS % (AUTO) 1.4 % (0-2); EOSINOPHILS % (AUTO) 6.6 % (0-6); HEMATOCRIT 38.7 % (37.9-51.0); HEMOGLOBIN 12.8 g/dL (13.5-17.0); LYMPHOCYTES % (AUTO) 42.3 % (13-45); MEAN CORPUSCULAR HEMOGLOBIN 30.2 pg (27.0-33.4); MEAN CORPUSCULAR VOLUME 92 fl (80-97); MONOCYTES % (AUTO) 11.3 % (3-13); PLATELET COUNT 205 10^3/uL (150-450); RED BLOOD COUNT 4.23 10^6/uL (4.35-5.55); RED CELL DISTRIBUTION WIDTH 15.2 % (11.5-14.0); SEGMENTED NEUTROPHILS % (AUTO) 38.4 % (42-78); TOTAL CELLS COUNTED % (AUTO) 100 %; WHITE BLOOD COUNT 5.2 10^3/uL (4.0-10.5)
[2019-07-23 01:45] LABS: ANION GAP 10 (5-19); BLOOD UREA NITROGEN 12 mg/dL (7-20); CALCIUM 8.7 mg/dL (8.4-10.2); CARBON DIOXIDE 30 mmol/L (22-30); CHLORIDE 102 mmol/L (98-107); GLUCOSE 111 mg/dL (75-110); POTASSIUM 4.1 mmol/L (3.6-5.0)
[2019-07-23] MEDS ORDERED: DOXYCYCLINE HYCLATE 100 MG TABLET PO ONE (03:04)
[2019-07-23] MEDS ORDERED: ONDANSETRON 4 MG TAB.RAPDIS PO ONE (04:43)
[2019-07-23 07:08] VITALS: BP 127/78
== END 2019-07-23 07:35 | disposition home or self-care (01) ==
LOC: ER 00:14
DX: J18.1 Lobar pneumonia, unspecified organism (principal); J44.0 Chronic obstructive pulmonary disease with (acute) lower respiratory infection; I12.0 Hypertensive chronic kidney disease with stage 5 chronic kidney disease or end stage renal disease; N18.6 End stage renal disease; E11.22 Type 2 diabetes mellitus with diabetic chronic kidney disease; Z99.2 Dependence on renal dialysis; I25.10 Atherosclerotic heart disease of native coronary artery without angina pectoris; R11.10 Vomiting, unspecified; R05 Cough; Z87.891 Personal history of nicotine dependence; Z94.0 Kidney transplant status; Z95.1 Presence of aortocoronary bypass graft
CPT/HCPCS: 94640; 99283; 36415; 85025; 80048; 71045; S0119; J7620

== ENCOUNTER 2019-07-23 11:58 | Inpatient (IN) | payer OTHER, MEDICARE ==
[2019-07-23] MEDS ORDERED: ACETAMINOPHEN 325 MG TABLET PO ONE ×2 (12:13→12:25)
[2019-07-23] MEDS ORDERED: ONDANSETRON HCL INJ/PF 4 MG/2 ML SDV IV ONE (12:24)
[2019-07-23 12:27] LABS: ABSOLUTE BASOPHILS # (AUTO) 0.1 10^3/uL (0.0-0.2); ABSOLUTE EOSINOPHILS # (AUTO) 0.2 10^3/uL (0.0-0.6); ABSOLUTE LYMPHOCYTES (AUTO) 1.6 10^3/uL (0.5-4.7); ABSOLUTE MONOCYTES (AUTO) 0.4 10^3/uL (0.1-1.4); ABSOLUTE NEUT (AUTO) 3.9 10^3/uL (1.7-8.2); BASOPHILS % (AUTO) 1.1 % (0-2); EOSINOPHILS % (AUTO) 2.5 % (0-6); HEMOGLOBIN 13.9 g/dL (13.5-17.0); LYMPHOCYTES % (AUTO) 26.1 % (13-45); MEAN CORPUSCULAR HEMOGLOBIN 30.7 pg (27.0-33.4); MEAN CORPUSCULAR HGB CONC 33.1 g/dL (32.0-36.0); MEAN CORPUSCULAR VOLUME 93 fl (80-97); MONOCYTES % (AUTO) 6.9 % (3-13); PLATELET COUNT 213 10^3/uL (150-450); RED BLOOD COUNT 4.53 10^6/uL (4.35-5.55); RED CELL DISTRIBUTION WIDTH 15.6 % (11.5-14.0); SEGMENTED NEUTROPHILS % (AUTO) 63.4 % (42-78); TOTAL CELLS COUNTED % (AUTO) 100 %; WHITE BLOOD COUNT 6.2 10^3/uL (4.0-10.5)
[2019-07-23 12:28] LABS: VENOUS BLOOD BASE EXCESS 0.4 mmol/L; VENOUS BLOOD HCO3 28.2 mmol/L (20-32); VENOUS BLOOD PCO2 59.1 mmHg (35-63); VENOUS BLOOD PH 7.3 (7.30-7.42)
[2019-07-23] MEDS ORDERED: CEFTRIAXONE 2 GM/D5W RTU 2 GM/50 ML RTUPB IV ONE (12:32)
[2019-07-23 12:37] LABS: INTERNATIONAL RATION (INR) 1.18
--- NOTE | 2019-07-23 12:43 | ER Document Report ---
ED General - General Chief Complaint: Shortness Of Breath Stated Complaint: COUGH Time Seen by Provider: 07/23/19 12:15 Notes: Patient says he has had congestion for the past couple of weeks, but developed a cough yesterday. He was seen here in the emergency department and diagnosed with pneumonia and discharged home. Patient says his breathing has become more difficult. He has been vomiting since yesterday, as well. Also thinks he has a fever today. Patient is a Thursday dialysis patient. Did go to dialysis yesterday, as scheduled. As a result of having Guyon Ventura syndrome about 5 years ago, patient is wheelchair confined. TRAVEL OUTSIDE OF THE [place] IN LAST 30 DAYS: No - Related Data Allergies/Adverse Reactions: No Known Allergies Allergy (Verified 09/07/18 16:44) Past Medical History - Social History Smoking Status: Unknown if Ever Smoked Family History: Reviewed & Not Pertinent, CAD - Past Medical History Cardiac Medical History: Reports: Hx Congestive Heart Failure, Hx Coronary Artery Disease, Hx Heart Attack - QUADRUPLE BYPASS 2007, HEART MURMUR, Hx Hypercholesterolemia, Hx Hypertension Pulmonary Medical History: Reports: Hx Asthma, Hx COPD, Hx Pneumonia - HX. GUILLAIN-BARRE' SYNDROME, Hx Intubation, Hx Respiratory Failure, Hx Sleep Apnea - On C Pap Neurological Medical History: Reports: Hx Cerebrovascular Accident - 2006 Endocrine Medical History: Reports: Hx Diabetes Mellitus Type 1, Hx Diabetes Mellitus Type 2 Renal/ Medical History: Reports: Hx End Stage Renal Disease, Hx Hemodialysis GI Medical History: Reports: Hx Gastroesophageal Reflux Disease Musculoskeletal Medical History: Infectious Medical History: Reports: Hx C-Diff Past Surgical History: Reports: Hx Cardiac Catheterization, Hx Cardiac Surgery - bipass x4, Hx Coronary Artery Bypass Graft - Quadruple bypass 2007, Hx Kidney (Renal Surgery) - RENAL TRANSPLANT, Hx Vascular Surgery - left AV fistual, Other - History peritoneal dialysis catheter placement and removal - Immunizations Immunizations up to date: Yes Hx Diphtheria, Pertussis, Tetanus Vaccination: Yes - UTD Hx Pneumococcal Vaccination: 08/16/16 Review of Systems - Review of Systems Notes: REVIEW OF SYSTEMS: CONSTITUTIONAL : She is had some fever today. EENT: Denies eye, ear, nose or mouth or throat pain or other symptoms. CARDIOVASCULAR: Denies chest pain. RESPIRATORY: See HPI. GASTROINTESTINAL: Denies abdominal pain has been nauseated and vomiting today. But no diarrhea. GENITOURINARY: Denies difficulty or painful urinating, urinary frequency, blood in urine. MUSCULOSKELETAL: Denies back or neck pain. Denies joint pain or swelling. SKIN: Denies rash or skin lesions. NEUROLOGICAL: Denies LOC or altered mental status. Denies headache. Denies sensory loss or motor deficits. 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 Physical Exam - Vital signs Vitals: Resp Pulse Ox 32 H 98 07/23/19 12:03 07/23/19 12:03 Interpretation: Tachycardic, Hypoxic, Febrile Notes: PHYSICAL EXAMINATION: GENERAL: Coughing frequently, sounds productive but patient says he cannot get up much phlegm. O2 sat was 81 to 82% by EMS on room air. HEAD: Atraumatic, normocephalic. EYES: Pupils equal round and reactive to light, extraocular movements intact. ENT: oropharynx clear without exudates. Moist mucous membranes. NECK: Normal range of motion, supple. LUNGS: Breath sounds decreased with rhonchi and a few rales bilaterally. Very congested sounding cough. Dialysis port in the upper left anterior chest. HEART: Regular rate and rhythm without murmurs. Rate 120 by me at bedside. ABDOMEN: Soft, nontender. No guarding or rebound. No masses. BACK: No tenderness throughout entire back. EXTREMITIES: Normal range of motion without pain. NEUROLOGICAL: Normal speech, unable to walk. Paralyzed lower extremities bilaterally.. Awake, alert, and oriented x3. PSYCH: Seems to be depressed. SKIN: Warm, dry, no rashes. Course - Re-evaluation Re-evalutation: 07/23/19 13:[address] Ahn who is on-call for this patient's primary care physician Dr. Girard. Patient will be admitted to [facility]. 07/23/19 13:47 Antibiotics, 2 g of Rocephin, have been infused. Patient is maintained on oxygen with an O2 sat in the mid 90s. Was febrile. Given Tylenol. Also given Zofran for his nausea and vomiting. 07/23/19 13:[address] Hanson who said the patient could be taken care of here at this hospital. - Vital Signs Vital signs: Temp Pulse Resp BP Pulse Ox 98.5 F 80 16 112/53 L 99 07/23/19 15:35 07/23/19 19:00 07/23/19 15:35 07/23/19 15:35 07/23/19 15:01 - Laboratory Result Diagrams: 07/23/19 12:15 07/23/19 12:15 Laboratory results interpreted by me: 07/23/19 07/23/19 12:15 12:15 RDW 15.6 H Creatinine 3.88 H Est GFR ( Amer) 19 L Est GFR (MDRD) Non-Af 16 L Glucose 74 L Direct Bilirubin 0.6 H Alkaline Phosphatase 144 H Total Protein 9.1 H Critical Care Note - Critical Care Note Total time excluding time spent on procedures (mins): 20 Discharge - Discharge Clinical Impression: Pneumonia, Hypoxia, End stage renal disease Condition: Stable Disposition: ADMITTED INPATIENT Admitting Provider: Chucky Unit Admitted: TEENA
[2019-07-23 12:44] LABS: ALBUMIN 3.9 g/dL (3.5-5.0); ALKALINE PHOSPHATASE 144 U/L (38-126); ANION GAP 13 (5-19); ASPARTATE AMINO TRANSFERASE 36 U/L (17-59); BILIRUBIN,DIRECT 0.6 mg/dL (0.0-0.4); BILIRUBIN,TOTAL 0.8 mg/dL (0.2-1.3); BLOOD UREA NITROGEN 15 mg/dL (7-20); CALCIUM 9.1 mg/dL (8.4-10.2); CARBON DIOXIDE 29 mmol/L (22-30); CHLORIDE 101 mmol/L (98-107); GLUCOSE 74 mg/dL (75-110); POTASSIUM 4.7 mmol/L (3.6-5.0); TOTAL PROTEIN 9.1 g/dL (6.3-8.2)
--- NOTE | 2019-07-23 12:50 | RADIOLOGY REPORT (SQ) ---
EXAM DESCRIPTION: CHEST SINGLE VIEW COMPLETED DATE/TIME: 07/23/2019 12:34 pm REASON FOR STUDY: bed 1 sepsis protocol COMPARISON: 07/23/2019 EXAM PARAMETERS: NUMBER OF VIEWS: One view. TECHNIQUE: Single frontal radiographic view of the chest acquired. RADIATION DOSE: NA LIMITATIONS: None. FINDINGS: Stable AP portable examination with left greater than right pleural effusions and/or pleur al thickening. No focal airspace opacity. Cardiomegaly with left chest large bore multi lumen cindy ter. IMPRESSION: Stable AP portable examination with left greater than right pleural effusions and/or ple ural thickening. No focal airspace opacity. Cardiomegaly with left chest large bore multi lumen cat heter. TECHNICAL DOCUMENTATION: JOB ID: [id number] [employer]- All Rights Reserved Reading location - IP/workstation name: [email or web address]
[2019-07-23] MEDS ORDERED: ACETAMINOPHEN 325 MG TABLET PO PRN (17:44)
[2019-07-23] MEDS: DOXYCYCLINE HYCLATE 100 MG TABLET PO SCH (18:03)
[2019-07-23] MEDS: SEVELAMER HCL 800 MG TABLET PO SCH (18:04)
[2019-07-23] MEDS: HEPARIN SOD (PORCINE) 5,000 UNIT/ML 1 ML VIAL SUBCUT SCH (22:15)
[2019-07-23] MEDS: ATORVASTATIN CALCIUM 20 MG TABLET PO SCH (22:15)
[2019-07-24] MEDS: IPRATROPIUM/ALBUTEROL 0.5-2.5 MG/3 ML AMPUL NEB PRN (08:50)
[2019-07-24] MEDS: DOXYCYCLINE HYCLATE 100 MG TABLET PO SCH ×2 (10:39→17:06)
[2019-07-24] MEDS: SEVELAMER HCL 800 MG TABLET PO SCH ×3 (10:39→16:57)
[2019-07-24] MEDS: ISOSORBIDE MONONITRATE 30 MG TAB.ER.24H PO SCH (10:41)
[2019-07-24] MEDS: FAMOTIDINE 20 MG TABLET PO SCH (10:42)
[2019-07-24] MEDS: ASPIRIN 81 MG TABLET, ENT COATED PO SCH (10:42)
[2019-07-24] MEDS: CLOPIDOGREL BISULFATE 75 MG TABLET PO SCH (10:42)
[2019-07-24] MEDS: FERROUS SULFATE 325 MG TABLET PO SCH (10:42)
[2019-07-24] MEDS: FOLIC ACID/VITAMIN B COMP W-C CAPSULE PO SCH (10:42)
[2019-07-24] MEDS: ASCORBIC ACID 500 MG TABLET PO SCH (10:43)
[2019-07-24] MEDS: TAMSULOSIN HCL 0.4 MG CAP.SR.24H PO SCH (10:43)
[2019-07-24] MEDS: LISINOPRIL 5 MG TABLET PO SCH (10:43)
[2019-07-24] MEDS: CEFTRIAXONE 1 GM/D5W RTU 1 GM/50 ML RTUPB IV SCH (10:44)
[2019-07-24] MEDS: HEPARIN SOD (PORCINE) 5,000 UNIT/ML 1 ML VIAL SUBCUT SCH ×2 (10:44→22:09)
--- NOTE | 2019-07-24 16:33 | PDOC H&P ---
History of Present Illness Admission Date/PCP: 07/23/19 13:54 KEEGAN MONTENEGRO MD Patient complains of: Chest congestion , Coughing History of Present Illness: KATHRYN HURLEY is a 63 year old male of Dr. Montenegro who presented to the ED with complaint of chest congestion and productive coughing. Patient reported associated fever, vomiting and generalized weakness. He was evaluated in the ED and diagnosed with pneumonia but signed out against medical advise. [facility] patient oxygen saturation at 81-82% on room air at home and after treatment with nebulizer and IV Solu Medrol his oxygenation improved to 95% and remain acceptable at 94% on 2L/min vi nasal cannula supplementation. He had fever and episode of nausea and vomiting while in the ED. He was treated with IV Zofran and oral Tylenol with satisfactory response. His evaluation continue to show bilateral pleural effusion and cardiomegaly but no definite air space disease process. His morbidities include Congestive Heart Failure, Coronary Artery Disease, old Myocardial infarction, s/p quadruple bypass, Hyperlipidemia, Hypertension, COPD with Asthma, Guillain-Garfield syndrome, Sleep Apnea, old Cerebrovascular Accident, Diabetes Mellitus Type 2, End Stage Renal Disease on hemodialysis, Gastroesophageal Reflux Disease. He was dialyzed at [facility] on 07/22/19. He was advised hospitalization for further evaluation and management. Past Medical History Cardiac Medical History: Reports: Congestive Heart Failure, Coronary Artery Disease, Myocardial Infarction - QUADRUPLE BYPASS 2007, HEART MURMUR, Hyperlipidema, Hypertension Pulmonary Medical History: Reports: Asthma, Chronic Obstructive Pulmonary Disease (COPD), Intubation, Pneumonia - HX. GUILLAIN-BARRE' SYNDROME, Respiratory Failure, Sleep Apnea - On C Pap Neurological Medical History: Endocrine Medical History: Reports: Diabetes Mellitus Type 1, Diabetes Mellitus Type 2 Renal/ Medical History: Reports: End Stage Renal Disease GI Medical History: Reports: Gastroesophageal Reflux Disease Musculoskeltal Medical History: Psychiatric Medical History: Denies: Depression - anxiety Hematology: Reports: Anemia Infectious Medical History: Reports: Clostridium Difficile Past Surgical History Past Surgical History: Reports: Cardiac Catheterization, Coronary Artery Bypass Graft - Quadruple bypass 2007, Vascular Surgery - left AV fistual, Other - History peritoneal dialysis catheter placement and removal Social History Smoking Status: Unknown if Ever Smoked Frequency of Alcohol Use: None Hx Recreational Drug Use: No Drugs: None Hx Prescription Drug Abuse: No Family History Family History: Reviewed & Not Pertinent, CAD Parental Family History Reviewed: Yes Children Family History Reviewed: Yes Sibling(s) Family History Reviewed.: Yes Medication/Allergy Home Medications: Ascorbate Calcium [Vitamin C] 500 mg PO DAILY 07/23/19 Aspirin [Ecotrin 81 mg EC Tablet] 81 mg PO DAILY 07/23/19 Atorvastatin Calcium [Lipitor 20 mg Tablet] 20 mg PO DAILY 07/23/19 Clopidogrel Bisulfate [Plavix 75 mg Tablet] 75 mg PO DAILY 07/23/19 Doxycycline Hyclate [Vibramycin 100 mg Tablet] 100 mg PO BID 07/23/19 Ergocalciferol (Vitamin D2) [Drisdol 50,000 Unit (1.25MG) Capsule] 50,000 unit PO FR@1000 07/23/19 Iron 130 mg PO DAILY 07/23/19 Isosorbide Mononitrate [Imdur 30 mg Tablet.er] 30 mg PO DAILY 07/23/19 Lisinopril [Zestril] 5 mg PO DAILY 07/23/19 Ranitidine HCl [Zantac] 150 mg PO DAILY 07/23/19 Sevelamer Carbonate [Renvela] 1,600 mg PO TID 07/23/19 Tamsulosin HCl [Flomax] 0.4 mg PO DAILY 07/23/19 Vitamin B Complex/Folic Acid [B-Complex Tablet] 0.4 mg PO DAILY 07/23/19 Allergies/Adverse Reactions: No Known Allergies Allergy (Verified 09/07/18 16:44) Review of Systems Constitutional: PRESENT: fever(s), weakness Eyes: ABSENT: visual disturbances Ears: ABSENT: hearing changes Nose, Mouth, and Throat: ABSENT: headache(s), sore throat, vertigo Cardiovascular: ABSENT: chest pain, dyspnea on exertion, edema, orthropnea, palpitations Respiratory: PRESENT: cough, sputum Gastrointestinal: PRESENT: nausea, vomiting. ABSENT: abdominal pain, constipation, diarrhea, hematemesis, hematochezia Genitourinary: ABSENT: dysuria, hematuria Musculoskeletal: ABSENT: joint swelling Integumentary: PRESENT: wounds - on buttock Neurological: ABSENT: abnormal speech, confusion, dizziness, focal weakness, syncope Psychiatric: ABSENT: anxiety, depression, homidical ideation, suicidal ideation Endocrine: ABSENT: cold intolerance, heat intolerance, polydipsia, polyuria Hematologic/Lymphatic: ABSENT: easy bleeding, easy bruising, lymphadenopathy Allergic/Immunologic: ABSENT: seasonal rhinorrhea Physical Exam Vital Signs: Temp Pulse Resp BP Pulse Ox 98.5 F 80 16 112/53 L 99 07/23/19 15:35 07/23/19 19:00 07/23/19 15:35 07/23/19 15:35 07/23/19 15:01 Intake & Output 07/22/19 07/23/19 07/24/19 06:59 06:59 06:59 Intake Total 50 Balance 50 Weight 66 kg General appearance: PRESENT: no acute distress, well-developed, well-nourished Head exam: PRESENT: atraumatic, normocephalic Eye exam: PRESENT: conjunctiva pink, EOMI, PERRLA. ABSENT: scleral icterus Ear exam: PRESENT: normal external ear exam Mouth exam: PRESENT: moist Respiratory exam: PRESENT: clear to auscultation jolie, decreased breath sounds - at lung bases Cardiovascular exam: PRESENT: RRR, +S1, +S2, systolic murmur. ABSENT: diastolic murmur, rubs Murmur grade: 3 Vascular exam: ABSENT: pallor GI/Abdominal exam: PRESENT: normal bowel sounds, soft. ABSENT: distended, guarding, mass, organolmegaly, rebound, tenderness Rectal exam: PRESENT: deferred Extremities exam: ABSENT: pedal edema Musculoskeletal exam: ABSENT: ambulatory Neurological exam: PRESENT: alert, awake, oriented to person, oriented to place, oriented to time, oriented to situation, CN II-XII grossly intact. ABSENT: motor sensory deficit Psychiatric exam: PRESENT: appropriate affect, normal mood. ABSENT: homicidal ideation, suicidal ideation Skin exam: PRESENT: dry, warm, other - stage 1 sacral pressure ulcer Results Laboratory Results: 07/23/19 12:15 07/23/19 12:15 07/23/19 07/23/19 07/23/19 12:15 12:15 12:15 WBC 6.2 RBC 4.53 Hgb 13.9 Hct 42.0 MCV 93 MCH 30.7 MCHC 33.1 RDW 15.6 H Plt Count 213 Seg Neutrophils % 63.4 VBG pH VBG pCO2 VBG HCO3 VBG Base Excess Sodium 142.5 Potassium 4.7 Chloride 101 Carbon Dioxide 29 Anion Gap 13 BUN 15 Creatinine 3.88 H Est GFR ( Amer) 19 L Glucose 74 L Lactic Acid 2.0 Calcium 9.1 Total Bilirubin 0.8 AST 36 Alkaline Phosphatase 144 H Total Protein 9.1 H Albumin 3.9 07/23/19 12:15 WBC RBC Hgb Hct MCV MCH MCHC RDW Plt Count Seg Neutrophils % VBG pH 7.30 VBG pCO2 59.1 VBG HCO3 28.2 VBG Base Excess 0.4 Sodium Potassium Chloride Carbon Dioxide Anion Gap BUN Creatinine Est GFR ( Amer) Glucose Lactic Acid Calcium Total Bilirubin AST Alkaline Phosphatase Total Protein Albumin 07/23/19 12:15 Troponin I 0.347 Impressions: Chest X-Ray 07/23/19 12:00 IMPRESSION: Stable AP portable examination with left greater than right pleural effusions and/or pleural thickening. No focal airspace opacity. Cardiomegaly with left chest large bore multi lumen catheter. Assessment & Plan - Diagnosis (1) Pneumonia Qualifiers: Pneumonia type: due to unspecified organism Laterality: unspecified laterality Lung location: unspecified part of lung Qualified Code(s): J18.9 - Pneumonia, unspecified organism Is this a current diagnosis for this admission?: Yes Plan: See admitting attending physician orders for details about care plan. (2) ESRD on hemodialysis Is this a current diagnosis for this admission?: Yes Plan: See admitting attending physician orders for details about care plan. (3) Diabetes mellitus, type II Qualifiers: Diabetes mellitus snf insulin use: with snf use Diabetes mellitus complication status: with other specified complication Qualified Code(s): E11.69 - Type 2 diabetes mellitus with other specified complication; Z79.4 - exterminator termite (current) use of insulin; Z79.4 - senior living (current) use of insulin; Z79.4 - senior living (current) use of insulin; Z79.4 - senior living (current) use of insulin Is this a current diagnosis for this admission?: Yes Plan: See admitting attending physician orders for details about care plan. (4) Hypertension Qualifiers: Hypertension type: essential hypertension Qualified Code(s): I10 - [facility] (primary) hypertension Is this a current diagnosis for this admission?: Yes Plan: See admitting attending physician orders for details about care plan. (5) Chronic diastolic (congestive) heart failure Is this a current diagnosis for this admission?: Yes Plan: See admitting attending physician orders for details about care plan. (6) Hyperlipidemia Qualifiers: Hyperlipidemia type: unspecified Qualified Code(s): E78.5 - Hyperlipidemia, unspecified Is this a current diagnosis for this admission?: Yes Plan: See admitting attending physician orders for details about care plan. (7) Gastroesophageal reflux disease Qualifiers: Esophagitis presence: esophagitis presence not specified Qualified Code(s): K21.9 - Gastro-esophageal reflux disease without esophagitis Is this a current diagnosis for this admission?: Yes Plan: See admitting attending physician orders for details about care plan. (8) Axonal GBS (Guillain-Garfield syndrome) Is this a current diagnosis for this admission?: Yes Plan: See admitting attending physician orders for details about care plan. (9) Pressure ulcer of sacral region, stage 1 Is this a current diagnosis for this admission?: Yes Plan: See admitting attending physician orders for details about care plan. - Time Time Spent: 50 to 70 Minutes Medications reviewed and adjusted accordingly: Yes Anticipated discharge: Home with Homehealth Within: Other - Inpatient Certification Based on my medical assessment, after consideration of the patient's comorbidities, presenting symptoms, or acuity I expect that the services needed warrant INPATIENT care.: Yes I certify that my determination is in accordance with my understanding of Medicare's requirements for reasonable and necessary INPATIENT services [42 CFR 412.3e].: Yes Medical Necessity: Significant Comorbidiites Make Outpatient Treatment Too Risky, Need Close Monitoring Due to Risk of Patient Decompensation, Need For Continuous Telemetry Monitoring, Need for Nebulizer Therapy and Monitoring of Response, Need for IV Antibiotics, Risk of Complication if Not Cared For in Hospital, Risk of Diagnosis Which Will Require Inpatient Eval/Care/Monitoring Post Hospital Care: D/C Registered Public Surveyor Documentation - Plan Summary Plan Summary: See admitting attending physician orders for details about care plan.
--- NOTE | 2019-07-24 16:40 | PDOC PROGRESS REPORT ---
Subjective Progress Note for:: 07/24/19 Subjective:: Patient continue to experience cough with minimal sputum production. No recurrent fever or chills. No chest pain. No nausea, vomiting or abdominal pain. Reason For Visit: PNEUMONIA, HYPOXIA, END STAGE RENAL DISEASE Physical Exam Vital Signs: Temp Pulse Resp BP Pulse Ox 97.4 F 79 16 140/87 H 99 07/24/19 08:38 07/24/19 14:00 07/24/19 08:50 07/24/19 08:38 07/24/19 08:50 Intake & Output 07/23/19 07/24/19 07/25/19 06:59 06:59 06:59 Intake Total 220 50 Output Total 0 Balance 220 50 Weight 60.7 kg General appearance: PRESENT: no acute distress, well-developed, well-nourished Head exam: PRESENT: atraumatic, normocephalic Eye exam: PRESENT: conjunctiva pink. ABSENT: scleral icterus Ear exam: PRESENT: normal external ear exam Mouth exam: PRESENT: moist Respiratory exam: PRESENT: clear to auscultation jolie, decreased breath sounds Cardiovascular exam: PRESENT: RRR, +S1, +S2, systolic murmur. ABSENT: diastolic murmur, rubs Murmur grade: 3 Vascular exam: ABSENT: pallor GI/Abdominal exam: PRESENT: normal bowel sounds, soft. ABSENT: distended, guarding, mass, organolmegaly, rebound, tenderness Extremities exam: ABSENT: pedal edema Neurological exam: PRESENT: alert, awake, oriented to person, oriented to place, oriented to time, oriented to situation, CN II-XII grossly intact. ABSENT: motor sensory deficit Psychiatric exam: PRESENT: appropriate affect, normal mood. ABSENT: homicidal ideation, suicidal ideation Skin exam: PRESENT: dry, warm Results Laboratory Results: 07/23/19 12:15 07/23/19 12:15 07/23/19 12:15 Troponin I 0.347 Impressions: Chest X-Ray 07/23/19 12:00 IMPRESSION: Stable AP portable examination with left greater than right pleural effusions and/or pleural thickening. No focal airspace opacity. Cardiomegaly with left chest large bore multi lumen catheter. Assessment & Plan - Diagnosis (1) Pneumonia Qualifiers: Pneumonia type: due to unspecified organism Laterality: unspecified laterality Lung location: unspecified part of lung Qualified Code(s): J18.9 - Pneumonia, unspecified organism Is this a current diagnosis for this admission?: Yes (2) ESRD on hemodialysis Is this a current diagnosis for this admission?: Yes (3) Diabetes mellitus, type II Qualifiers: Diabetes mellitus keno terminal operator insulin use: with keno terminal operator use Diabetes mellitus complication status: with other specified complication Qualified Code(s): E11.69 - Type 2 diabetes mellitus with other specified complication; Z79.4 - [facility] (current) use of insulin; Z79.4 - vermin exterminator (current) use of insulin; Z79.4 - [facility] (current) use of insulin; Z79.4 - [facility] (current) use of insulin Is this a current diagnosis for this admission?: Yes (4) Hypertension Qualifiers: Hypertension type: essential hypertension Qualified Code(s): I10 - Essential (primary) hypertension Is this a current diagnosis for this admission?: Yes (5) Chronic diastolic (congestive) heart failure Is this a current diagnosis for this admission?: Yes (6) Hyperlipidemia Qualifiers: Hyperlipidemia type: unspecified Qualified Code(s): E78.5 - Hyperlipidemia, unspecified Is this a current diagnosis for this admission?: Yes (7) Gastroesophageal reflux disease Qualifiers: Esophagitis presence: esophagitis presence not specified Qualified Code(s): K21.9 - Gastro-esophageal reflux disease without esophagitis Is this a current diagnosis for this admission?: Yes (8) Axonal GBS (Guillain-[place] syndrome) Is this a current diagnosis for this admission?: Yes (9) Pressure ulcer of sacral region, stage 1 Is this a current diagnosis for this admission?: Yes - Time Time Spent with patient: 25-34 minutes Medications reviewed and adjusted accordingly: Yes Anticipated discharge: Home with Homehealth Within: Other - Inpatient Certification Based on my medical assessment, after consideration of the patient's comorbidities, presenting symptoms, or acuity I expect that the services needed warrant INPATIENT care.: Yes I certify that my determination is in accordance with my understanding of Medicare's requirements for reasonable and necessary INPATIENT services [42 CFR 412.3e].: Yes Medical Necessity: Significant Comorbidiites Make Outpatient Treatment Too Risky, Need Close Monitoring Due to Risk of Patient Decompensation, Need For Continuous Telemetry Monitoring, Need for Nebulizer Therapy and Monitoring of Response, Need for IV Antibiotics, Risk of Complication if Not Cared For in Hospital, Risk of Diagnosis Which Will Require Inpatient Eval/Care/Monitoring Post Hospital Care: D/C Sales Support Advisor Documentation - Plan Summary Plan Summary: Continue IV Rocephin coverage. Follow up on culture findings. Start on Benzonatate 100 mg po tid to aide expectoration. Maintain on all other current medication management. Obtain CBC with diff and BMP in AM.
--- NOTE | 2019-07-24 18:52 | EKG REPORT ---
SEVERITY:- ABNORMAL ECG - SINUS TACHYCARDIA PROBABLE INFERIOR INFARCT, AGE INDETERMINATE ANTEROLATERAL INFARCT, OLD : Confirmed by: Zoe Lazo 24-Jul-2019 18:51:42
[2019-07-24] MEDS ORDERED: INSULIN LISPRO 100 UNIT/ML 3 ML VIAL SUBCUT SCH (22:00)
[2019-07-24] MEDS: ATORVASTATIN CALCIUM 20 MG TABLET PO SCH (22:09)
[2019-07-24] MEDS ORDERED: BENZONATATE 100 MG CAPSULE PO ONE (22:30)
[2019-07-25] MEDS: IPRATROPIUM/ALBUTEROL 0.5-2.5 MG/3 ML AMPUL NEB PRN ×2 (01:40→22:56)
[2019-07-25 07:46] LABS: ABSOLUTE LYMPHOCYTES (AUTO) 1.9 10^3/uL (0.5-4.7); ABSOLUTE MONOCYTES (AUTO) 0.4 10^3/uL (0.1-1.4); ABSOLUTE NEUT (AUTO) 2.1 10^3/uL (1.7-8.2); BASOPHILS % (AUTO) 0.2 % (0-2); EOSINOPHILS % (AUTO) 0.3 % (0-6); HEMATOCRIT 35.3 % (37.9-51.0); LYMPHOCYTES % (AUTO) 42.5 % (13-45); MEAN CORPUSCULAR HGB CONC 33.5 g/dL (32.0-36.0); MEAN CORPUSCULAR VOLUME 93 fl (80-97); MONOCYTES % (AUTO) 9.3 % (3-13); PLATELET COUNT 186 10^3/uL (150-450); RED CELL DISTRIBUTION WIDTH 15.2 % (11.5-14.0); SEGMENTED NEUTROPHILS % (AUTO) 47.7 % (42-78); TOTAL CELLS COUNTED % (AUTO) 100 %; WHITE BLOOD COUNT 4.4 10^3/uL (4.0-10.5)
[2019-07-25] MEDS: INSULIN LISPRO 100 UNIT/ML 3 ML VIAL SUBCUT SCH ×4 (07:54→23:29)
[2019-07-25] MEDS ORDERED: DEXTROSE 50%-WATER SYRINGE 12.5 GM/25 ML DOSE IV PRN (08:00)
[2019-07-25] MEDS ORDERED: GLUCAGON,HUMAN RECOMB 1 MG INJ IM PRN (08:00)
[2019-07-25] MEDS ORDERED: DEXTROSE 40% GEL 15 GM TUBE X 2 PO PRN (08:00)
[2019-07-25] MEDS ORDERED: DEXTROSE 50%-WATER SYRINGE 25 GM/50 ML DOSE IV PRN (08:00)
[2019-07-25] MEDS ORDERED: DEXTROSE 40% GEL 15 GM TUBE PO PRN (08:00)
[2019-07-25 08:19] LABS: ANION GAP 14 (5-19); BLOOD UREA NITROGEN 39 mg/dL (7-20); CALCIUM 8.8 mg/dL (8.4-10.2); CARBON DIOXIDE 25 mmol/L (22-30); CHLORIDE 102 mmol/L (98-107); GLUCOSE 113 mg/dL (75-110); POTASSIUM 4.9 mmol/L (3.6-5.0)
[2019-07-25 08:26] LABS: HEMOGLOBIN 11.8 g/dL (13.5-17.0)
[2019-07-25] MEDS: TAMSULOSIN HCL 0.4 MG CAP.SR.24H PO SCH (09:36)
[2019-07-25] MEDS: HEPARIN SOD (PORCINE) 5,000 UNIT/ML 1 ML VIAL SUBCUT SCH ×2 (09:36→23:29)
[2019-07-25] MEDS: ISOSORBIDE MONONITRATE 30 MG TAB.ER.24H PO SCH (09:36)
[2019-07-25] MEDS: FERROUS SULFATE 325 MG TABLET PO SCH (09:36)
[2019-07-25] MEDS: SEVELAMER HCL 800 MG TABLET PO SCH ×3 (09:36→16:09)
[2019-07-25] MEDS: ASPIRIN 81 MG TABLET, ENT COATED PO SCH (09:36)
[2019-07-25] MEDS: FAMOTIDINE 20 MG TABLET PO SCH (09:37)
[2019-07-25] MEDS: CLOPIDOGREL BISULFATE 75 MG TABLET PO SCH (09:37)
[2019-07-25] MEDS: LISINOPRIL 5 MG TABLET PO SCH (09:37)
[2019-07-25] MEDS: CEFTRIAXONE 1 GM/D5W RTU 1 GM/50 ML RTUPB IV SCH (09:37)
[2019-07-25] MEDS: FOLIC ACID/VITAMIN B COMP W-C CAPSULE PO SCH (09:37)
[2019-07-25] MEDS: ASCORBIC ACID 500 MG TABLET PO SCH (09:38)
[2019-07-25] MEDS: BENZONATATE 100 MG CAPSULE PO SCH ×3 (09:38→18:50)
[2019-07-25] MEDS: DOXYCYCLINE HYCLATE 100 MG TABLET PO SCH ×2 (09:38→18:51)
--- NOTE | 2019-07-25 09:53 | PDOC PROGRESS REPORT ---
Subjective Progress Note for:: 07/25/19 Subjective:: Patient was admitting in the hospital for the cough congestion's pneumonia start on Rocephin Patient is feeling better still have a cough with some productive sputum Patient with bilateral pleural effusions Denied any chest pain to than any shortness of the breath no fever no chills Reason For Visit: PNEUMONIA,ESRD ON HEMODIALYSIS,CHRONIC DIASTOLIC Physical Exam Vital Signs: Temp Pulse Resp BP Pulse Ox 97.8 F 70 18 120/72 96 07/25/19 04:21 07/25/19 07:00 07/25/19 04:21 07/25/19 04:21 07/25/19 04:22 Intake & Output 07/24/19 07/25/19 07/26/19 06:59 06:59 06:59 Intake Total 220 490 Output Total 0 0 Balance 220 490 Weight 60.7 kg 63.9 kg General appearance: PRESENT: no acute distress, well-developed, well-nourished Head exam: PRESENT: atraumatic, normocephalic Eye exam: PRESENT: conjunctiva pink, EOMI, PERRLA. ABSENT: scleral icterus Ear exam: PRESENT: normal external ear exam Mouth exam: PRESENT: moist, tongue midline Neck exam: PRESENT: full ROM. ABSENT: carotid bruit, JVD, lymphadenopathy, thyromegaly Respiratory exam: PRESENT: clear to auscultation jolie, decreased breath sounds Cardiovascular exam: PRESENT: RRR. ABSENT: diastolic murmur, rubs, systolic murmur Murmur grade: 3 Vascular exam: PRESENT: normal capillary refill GI/Abdominal exam: PRESENT: normal bowel sounds, soft. ABSENT: distended, guarding, mass, organolmegaly, rebound, tenderness Rectal exam: PRESENT: deferred Extremities exam: ABSENT: pedal edema Additional comments: Bilateral reduce the pulse patient is currently follow the wound care Neurological exam: PRESENT: alert, awake, oriented to person, oriented to place, oriented to time, oriented to situation. ABSENT: motor sensory deficit Psychiatric exam: PRESENT: appropriate affect, normal mood. ABSENT: homicidal ideation, suicidal ideation Skin exam: PRESENT: dry, intact, warm. ABSENT: cyanosis, rash Results Laboratory Results: 07/25/19 07:22 07/25/19 07:22 07/25/19 07/25/19 07:22 07:22 WBC 4.4 RBC 3.80 L Hgb 11.8 L D Hct 35.3 L MCV 93 MCH 31.0 MCHC 33.5 RDW 15.2 H Plt Count 186 Seg Neutrophils % 47.7 Sodium 140.9 Potassium 4.9 Chloride 102 Carbon Dioxide 25 Anion Gap 14 BUN 39 H Creatinine 5.19 H Est GFR ( Amer) 14 L Glucose 113 H Calcium 8.8 07/23/19 12:15 Troponin I 0.347 Impressions: Chest X-Ray 07/23/19 12:00 IMPRESSION: Stable AP portable examination with left greater than right pleural effusions and/or pleural thickening. No focal airspace opacity. Cardiomegaly with left chest large bore multi lumen catheter. Assessment & Plan - Diagnosis (1) Pneumonia Qualifiers: Pneumonia type: due to unspecified organism Laterality: unspecified laterality Lung location: unspecified part of lung Qualified Code(s): J18.9 - Pneumonia, unspecified organism Is this a current diagnosis for this admission?: Yes Plan: Continues to IV antibiotics Will re-do the chest x-ray after the dialysis to assess the pleural effusions Follow the sputum culture (2) Chronic diastolic (congestive) heart failure Is this a current diagnosis for this admission?: Yes Plan: Continues to hemodialysis (3) End stage renal disease Is this a current diagnosis for this admission?: Yes Plan: Consult to Dr. Tavares (4) Hypoxia Is this a current diagnosis for this admission?: Yes Plan: We redo the chest x-ray after the dialysis may be need a CT scan of the chest if it is not improving (5) Anemia in chronic kidney disease (CKD) Qualifiers: Chronic kidney disease stage: stage 5, not on chronic dialysis Qualified Code(s): N18.5 - Chronic kidney disease, stage 5; D63.1 - Anemia in chronic kidney disease; D63.1 - Anemia in chronic kidney disease Is this a current diagnosis for this admission?: Yes (6) Axonal GBS (Guillain-[place] syndrome) Is this a current diagnosis for this admission?: Yes (7) Cerebrovascular disease Is this a current diagnosis for this admission?: Yes (8) Diabetes mellitus, type II Qualifiers: Diabetes mellitus emt intermediate insulin use: with intermediate use Diabetes mellitus complication status: with other specified complication Qualified Code(s): E11.69 - Type 2 diabetes mellitus with other specified complication; Z79.4 - manager terminal (current) use of insulin; Z79.4 - manager terminal (current) use of insulin; Z79.4 - halfway (current) use of insulin; Z79.4 - halfway (current) use of insulin Is this a current diagnosis for this admission?: Yes (9) History of kidney transplant Is this a current diagnosis for this admission?: Yes - Time Time Spent with patient: 25-34 minutes Medications reviewed and adjusted accordingly: Yes Anticipated discharge: Home with Homehealth Within: Other - Inpatient Certification Based on my medical assessment, after consideration of the patient's comorbidities, presenting symptoms, or acuity I expect that the services needed warrant INPATIENT care.: Yes I certify that my determination is in accordance with my understanding of Medicare's requirements for reasonable and necessary INPATIENT services [42 CFR 412.3e].: Yes Medical Necessity: Need Close Monitoring Due to Risk of Patient Decompensation, Need for IV Antibiotics Post Hospital Care: D/C Marketing Development Specialist Documentation - Plan Summary Plan Summary: Continues to IV antibiotic
--- NOTE | 2019-07-25 14:46 | EKG REPORT ---
SEVERITY:- ABNORMAL ECG - SINUS RHYTHM RBBB AND LPFB PROBABLE INFERIOR INFARCT, AGE INDETERMINATE ANTEROLATERAL INFARCT, AGE INDETERMINATE : Confirmed by: Samia Roper MD 25-Jul-2019 14:45:43
[2019-07-25] MEDS ORDERED: HEPARIN SOD (PORCINE) 1,000 UNIT/ML 10 ML VIAL IV PRN (16:58)
--- NOTE | 2019-07-25 17:34 | PDOC CONSULTATION ---
Consultation Consult Date: 07/25/19 Provider Consulted: Goyo ZIMMERMAN Consult reason:: ESRD for dialysis. 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 He became febrile while he was in the ER with no definitive chills or rigors. Imaging studies showed bilateral pleural effusion and cardiomegaly but no definite air space disease process. He has been severely deconditioned because of his focal deficits from the Guillain-[place], peripheral vascular disease affecting both lower extremities with dry gangrene as well. Patient has been slowly becoming more debilitated and progressively going downhill. Patient is currently being seen while undergoing dialysis. He denies any history of chest pains or fever or chills. He feels somewhat better than when he came in. Labs and medications were reviewed. Dialysis orders were reviewed with the treating dialysis nurse. Past Medical History Cardiac Medical History: Reports: CHF-Diastolic, Coronary Artery Disease, Hyperlipidemia, Hypertension-primary, Myocardial Infarction - QUADRUPLE BYPASS 2007, HEART MURMUR Pulmonary Medical History: Reports: Asthma, Chronic Obstructive Pulmonary Disease (COPD), Intubation, Pneumonia - HX. GUILLAIN-BARRE' SYNDROME, Respiratory Failure, Sleep Apnea - On C Pap Neurological Medical History: Endocrine Medical History: Reports: Diabetes Mellitus Type 2 Complications of Diabetes: Reports: Nephropathy Renal/ Medical History: Reports: End Stage Renal Disease, Secondary Hyperparathyroidism GI Medical History: Reports: Gastroesophageal Reflux Disease Musculoskeltal Medical History: Psychiatric Medical History: Denies: Depression - anxiety Infectious Medical History: Reports: Clostridium Difficile Past Surgical History Past Surgical History: Reports: Cardiac Catheterization, Coronary Artery Bypass Graft - Quadruple bypass 2007, Vascular Surgery - left AV fistual, Other - History peritoneal dialysis catheter placement and removal Social History Smoking Status: Unknown if Ever Smoked Frequency of Alcohol Use: None Hx Recreational Drug Use: No Drugs: None Hx Prescription Drug Abuse: No Family History Parental Family History Reviewed: Yes - Negative for ESRD Children Family History Reviewed: No Sibling(s) Family History Reviewed.: No Medication/Allergy Home Medications: Ascorbate Calcium [Vitamin C] 500 mg PO DAILY 07/23/19 Aspirin [Ecotrin 81 mg EC Tablet] 81 mg PO DAILY 07/23/19 Atorvastatin Calcium [Lipitor 20 mg Tablet] 20 mg PO DAILY 07/23/19 Clopidogrel Bisulfate [Plavix 75 mg Tablet] 75 mg PO DAILY 07/23/19 Doxycycline Hyclate [Vibramycin 100 mg Tablet] 100 mg PO BID 07/23/19 Ergocalciferol (Vitamin D2) [Drisdol 50,000 Unit (1.25MG) Capsule] 50,000 unit PO FR@1000 07/23/19 Iron 130 mg PO DAILY 07/23/19 Isosorbide Mononitrate [Imdur 30 mg Tablet.er] 30 mg PO DAILY 07/23/19 Lisinopril [Zestril] 5 mg PO DAILY 07/23/19 Ranitidine HCl [Zantac] 150 mg PO DAILY 07/23/19 Sevelamer Carbonate [Renvela] 1,600 mg PO TID 07/23/19 Tamsulosin HCl [Flomax] 0.4 mg PO DAILY 07/23/19 Vitamin B Complex/Folic Acid [B-Complex Tablet] 0.4 mg PO DAILY 07/23/19 Allergies/Adverse Reactions: No Known Allergies Allergy (Verified 09/07/18 16:44) Review of Systems Constitutional: PRESENT: anorexia, fatigue, fever(s), weakness. ABSENT: chills, headache(s), night sweats Eyes: ABSENT: visual disturbances Ears: ABSENT: hearing changes Nose, Mouth, and Throat: ABSENT: mouth pain, sore throat Cardiovascular: PRESENT: dyspnea on exertion, edema. ABSENT: chest pain, orthropnea, palpitations Gastrointestinal: ABSENT: abdominal pain, bloating, coffee ground emesis, diarrhea, dysphagia, heartburn, hematemesis, nausea, vomiting Genitourinary: ABSENT: dysuria, hematuria Musculoskeletal: ABSENT: deformity, joint swelling Integumentary: PRESENT: lesions - Of dry gangrene both lower extremities.. ABSENT: erythema, pruritus, rash Neurological: PRESENT: abnormal gait, lack of coordination. ABSENT: abnormal movements, abnormal speech, confusion, focal weakness Hematologic/Lymphatic: ABSENT: easy bleeding, lymphadenopathy Physical Exam Vital Signs: Temp Pulse Resp BP Pulse Ox 97.8 F 70 18 120/72 96 07/25/19 04:21 07/25/19 07:00 07/25/19 04:21 07/25/19 04:21 07/25/19 04:22 Intake & Output 07/24/19 07/25/19 07/26/19 06:59 06:59 06:59 Intake Total 220 490 410 Output Total 0 0 Balance 220 490 410 Weight 60.7 kg 63.9 kg General appearance: PRESENT: no acute distress, disheveled Exam: Looks sick and tired. Eye exam: PRESENT: EOMI, PERRLA. ABSENT: scleral icterus Ear exam: PRESENT: normal external ear exam Mouth exam: PRESENT: moist Neck exam: ABSENT: lymphadenopathy, meningismus, tenderness, thyromegaly, tracheal deviation Cardiovascular exam: PRESENT: +S1, +S2 GI/Abdominal exam: PRESENT: normal bowel sounds, soft. ABSENT: organomegaly, tenderness Extremities exam: PRESENT: pedal edema - Venous stasis changes and dry gangrene of digits of lower extremities. ABSENT: calf tenderness, clubbing Neurological exam: PRESENT: alert, awake, oriented to person, oriented to place Psychiatric exam: PRESENT: appropriate affect Skin exam: PRESENT: mottled. ABSENT: erythema, rash Results Laboratory Results: 07/25/19 07:22 07/25/19 07:22 07/25/19 07/25/19 07:22 07:22 WBC 4.4 RBC 3.80 L Hgb 11.8 L D Hct 35.3 L MCV 93 MCH 31.0 MCHC 33.5 RDW 15.2 H Plt Count 186 Seg Neutrophils % 47.7 Sodium 140.9 Potassium 4.9 Chloride 102 Carbon Dioxide 25 Anion Gap 14 BUN 39 H Creatinine 5.19 H Est GFR ( Amer) 14 L Glucose 113 H Calcium 8.8 07/24/19 07:00 Sputum Gram Stain - Final 07/24/19 07:00 Sputum Sputum Culture - Final 07/23/19 12:15 Troponin I 0.347 Impressions: Chest X-Ray 07/23/19 12:00 IMPRESSION: Stable AP portable examination with left greater than right pleural effusions and/or pleural thickening. No focal airspace opacity. Cardiomegaly with left chest large bore multi lumen catheter. Assessment & Plan - Diagnosis (1) Pneumonia Qualifiers: Pneumonia type: due to unspecified organism Laterality: unspecified laterality Lung location: unspecified part of lung Qualified Code(s): J18.9 - Pneumonia, unspecified organism Is this a current diagnosis for this admission?: Yes Plan: Most likely. X-ray showed bilateral effusions with possibility of underlying consolidation given his presenting symptoms. Patient currently on antibiotics. Continue as per management by Dr. Girard. (2) ESRD on hemodialysis Is this a current diagnosis for this admission?: Yes Plan: Patient currently is undergoing dialysis without any issues. Vital signs are stable. Dialysis is being supervised to ensure safe and smooth procedure. Plan to remove 1 to 2 L as tolerated. Dialysis orders were reviewed with the treating dialysis nurse Martha. (3) Chronic diastolic (congestive) heart failure Is this a current diagnosis for this admission?: Yes Plan: Is very hard to evaluate the x-ray for evidences of overt congestive heart failure given his bilateral pleural effusions. However is quite likely that there is an element of heart failure also involved in his current admission. 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 Unfortunately progressive and debilitating. Resulting in multiple decubitus ulcers. 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 (6) ESBL (extended spectrum beta-lactamase) producing bacteria infection Plan: History of. Besides that he has history of MRSA and VRE as well in the past. (7) Peripheral vascular disease Plan: And resulting in dry gangrene of both the feet. Unfortunately given his comorbidities after evaluation by surgeons not much else is able to be done in the moment. (8) VRE (vancomycin resistant enterococcus) culture positive Plan: History of. Besides this he is also got his history of ESBL organisms and MRSA.
[2019-07-25] MEDS: ATORVASTATIN CALCIUM 20 MG TABLET PO SCH (23:28)
[2019-07-26] MEDS: SEVELAMER HCL 800 MG TABLET PO SCH ×3 (08:15→17:32)
[2019-07-26] MEDS: INSULIN LISPRO 100 UNIT/ML 3 ML VIAL SUBCUT SCH ×4 (08:20→22:55)
--- NOTE | 2019-07-26 08:20 | RADIOLOGY REPORT (SQ) ---
EXAM DESCRIPTION: CT CHEST WITHOUT COMPLETED DATE/TIME: 07/25/2019 6:38 pm REASON FOR STUDY: pnemonia/cough COMPARISON: Chest x-ray dated 07/23/2019 TECHNIQUE: CT scan performed of the chest without intravenous contrast. Images reviewed with lung, soft tissue and bone windows. Reconstructed coronal and sagittal MPR images reviewed. All images st ored on PACS. All CT scanners at this facility use dose modulation, iterative reconstruction, and/or weight based d osing when appropriate to reduce radiation dose to as low as reasonably achievable (ALARA). [facility]: Dose Right [facility]: CareDose [facility]: Dose Right [facility]: Teradose 4D [facility]: Dinero Limited RADIATION DOSE: CT Rad equipment meets quality standard of care and radiation dose reduction techniq ues were employed. CTDIvol: 8.5 mGy. DLP: 294 mGy-cm. mGy. LIMITATIONS: No technical limitations. FINDINGS: LUNGS AND PLEURA: There are bilateral pleural effusions right greater than left. These ar e small to moderate in size. There is associated bibasilar atelectasis possibly pneumonia. On the l eft there is pleural-based opacity either atelectasis or pneumonia as well. HILAR AND MEDIASTINAL STRUCTURES: There are small mediastinal and hilar nodes. These could be reacti ve or neoplastic. The largest measures approximately 11.8 mm in diameter. HEART AND VASCULAR STRUCTURES: No aneurysm. No pericardial effusion. UPPER ABDOMEN: Both kidneys are small and atrophic. THYROID AND OTHER SOFT TISSUES: No masses. No adenopathy. BONES: No significant finding. HARDWARE: Sternotomy wires are in place along with dialysis catheter. OTHER: No other significant findings. IMPRESSION: Small to moderate bilateral pleural effusions right greater than left. There is associa joshua basilar airspace disease either atelectasis or pneumonia. TECHNICAL DOCUMENTATION: JOB ID: [id number] Quality ID # [id number]: Final reports with documentation of one or more dose reduction techniques (e.g., Au tomated exposure control, adjustment of the mA and/or kV according to patient size, use of iterative reconstruction technique) 2010 [employer]- All Rights Reserved Reading location - IP/workstation name: [email or web address]
--- NOTE | 2019-07-26 08:25 | PDOC PROGRESS REPORT ---
Subjective Progress Note for:: 07/26/19 Subjective:: Patient is currently doing fair Patient still complaining of a cough with the sputum productivity Sputum culture done but not enough sample Patient had a dialysis done yesterday Will wait for the CT of the chest before to assess the pleural effusion and pneumonia versus underlying heart failure due to the end-stage renal disease Patient is denied any chest pain denied any short of breath Reason For Visit: PNEUMONIA,ESRD ON HEMODIALYSIS,CHRONIC DIASTOLIC Physical Exam Vital Signs: Temp Pulse Resp BP Pulse Ox 98.0 F 78 20 123/55 L 80 L 07/26/19 00:19 07/26/19 07:00 07/26/19 00:19 07/26/19 00:19 07/26/19 00:19 Intake & Output 07/25/19 07/26/19 07/27/19 06:59 06:59 06:59 Intake Total 490 770 Output Total 0 2000 Balance 490 -1230 Weight 63.9 kg 60.5 kg General appearance: PRESENT: no acute distress, well-developed, well-nourished Head exam: PRESENT: atraumatic, normocephalic Eye exam: PRESENT: conjunctiva pink, EOMI, PERRLA. ABSENT: scleral icterus Ear exam: PRESENT: normal external ear exam Mouth exam: PRESENT: moist, tongue midline Neck exam: PRESENT: full ROM. ABSENT: carotid bruit, JVD, lymphadenopathy, thyromegaly Respiratory exam: PRESENT: clear to auscultation jolie Cardiovascular exam: PRESENT: RRR. ABSENT: diastolic murmur, rubs, systolic murmur Murmur grade: 3 Vascular exam: PRESENT: normal capillary refill GI/Abdominal exam: PRESENT: normal bowel sounds, soft. ABSENT: distended, guarding, mass, organolmegaly, rebound, tenderness Rectal exam: PRESENT: deferred Neurological exam: PRESENT: alert, awake, oriented to person, oriented to place, oriented to time, oriented to situation, CN II-XII grossly intact. ABSENT: motor sensory deficit Psychiatric exam: PRESENT: appropriate affect, normal mood. ABSENT: homicidal ideation, suicidal ideation Skin exam: PRESENT: dry, intact, warm. ABSENT: cyanosis, rash Results Laboratory Results: 07/25/19 07:22 07/25/19 07:22 07/25/19 07/25/19 07:22 07:22 WBC 4.4 RBC 3.80 L Hgb 11.8 L D Hct 35.3 L MCV 93 MCH 31.0 MCHC 33.5 RDW 15.2 H Plt Count 186 Seg Neutrophils % 47.7 Sodium 140.9 Potassium 4.9 Chloride 102 Carbon Dioxide 25 Anion Gap 14 BUN 39 H Creatinine 5.19 H Est GFR ( Amer) 14 L Glucose 113 H Calcium 8.8 07/24/19 07:00 Sputum Gram Stain - Final 07/24/19 07:00 Sputum Sputum Culture - Final 07/23/19 12:15 Troponin I 0.347 Impressions: Chest X-Ray 07/23/19 12:00 IMPRESSION: Stable AP portable examination with left greater than right pleural effusions and/or pleural thickening. No focal airspace opacity. Cardiomegaly with left chest large bore multi lumen catheter. Assessment & Plan - Diagnosis (1) Pneumonia Qualifiers: Pneumonia type: due to unspecified organism Laterality: unspecified laterality Lung location: unspecified part of lung Qualified Code(s): J18.9 - Pneumonia, unspecified organism Is this a current diagnosis for this admission?: Yes Plan: Continues to IV antibiotics will wait for the CT report (2) Chronic diastolic (congestive) heart failure Is this a current diagnosis for this admission?: Yes Plan: Continues to hemodialysis (3) End stage renal disease Is this a current diagnosis for this admission?: Yes (4) Hypoxia Is this a current diagnosis for this admission?: Yes Plan: We redo the chest x-ray after the dialysis may be need a CT scan of the chest if it is not improving (5) Anemia in chronic kidney disease (CKD) Qualifiers: Chronic kidney disease stage: stage 5, not on chronic dialysis Qualified Code(s): N18.5 - Chronic kidney disease, stage 5; D63.1 - Anemia in chronic kidney disease; D63.1 - Anemia in chronic kidney disease Is this a current diagnosis for this admission?: Yes (6) 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) Is this a current diagnosis for this admission?: Yes (7) Cerebrovascular disease Is this a current diagnosis for this admission?: Yes (8) Diabetes mellitus, type II Qualifiers: Diabetes mellitus intermediate frame tender insulin use: with [facility] use Diabetes mellitus complication status: with other specified complication Qualified Code(s): E11.69 - Type 2 diabetes mellitus with other specified complication; Z79.4 - alf (current) use of insulin; Z79.4 - superintendent container terminal (current) use of insulin; Z79.4 - superintendent container terminal (current) use of insulin; Z79.4 - superintendent container terminal (current) use of insulin Is this a current diagnosis for this admission?: Yes (9) History of kidney transplant Is this a current diagnosis for this admission?: Yes - Time Time Spent with patient: 25-34 minutes Medications reviewed and adjusted accordingly: Yes Anticipated discharge: Home with Homehealth Within: Other - Plan Summary Plan Summary: Continues to IV antibiotic Will wait for the CT of the chest report about the pleural effusions
[2019-07-26] MEDS: HEPARIN SOD (PORCINE) 5,000 UNIT/ML 1 ML VIAL SUBCUT SCH ×2 (09:19→22:54)
[2019-07-26] MEDS: CEFTRIAXONE 1 GM/D5W RTU 1 GM/50 ML RTUPB IV SCH (09:19)
[2019-07-26] MEDS: ASPIRIN 81 MG TABLET, ENT COATED PO SCH (09:19)
[2019-07-26] MEDS: CLOPIDOGREL BISULFATE 75 MG TABLET PO SCH (09:20)
[2019-07-26] MEDS: GUAIFENESIN 600 MG TABLET.SA PO SCH ×2 (09:20→22:54)
[2019-07-26] MEDS: TAMSULOSIN HCL 0.4 MG CAP.SR.24H PO SCH (09:20)
[2019-07-26] MEDS: FOLIC ACID/VITAMIN B COMP W-C CAPSULE PO SCH (09:20)
[2019-07-26] MEDS: FAMOTIDINE 20 MG TABLET PO SCH (09:20)
[2019-07-26] MEDS: ISOSORBIDE MONONITRATE 30 MG TAB.ER.24H PO SCH (09:20)
[2019-07-26] MEDS: FERROUS SULFATE 325 MG TABLET PO SCH (09:20)
[2019-07-26] MEDS: LISINOPRIL 5 MG TABLET PO SCH (09:21)
[2019-07-26] MEDS: ASCORBIC ACID 500 MG TABLET PO SCH (09:21)
[2019-07-26] MEDS: BENZONATATE 100 MG CAPSULE PO SCH ×3 (09:21→17:32)
[2019-07-26] MEDS: DOXYCYCLINE HYCLATE 100 MG TABLET PO SCH ×2 (09:21→17:32)
[2019-07-26] MEDS: ATORVASTATIN CALCIUM 20 MG TABLET PO SCH (22:54)
[2019-07-27] MEDS: INSULIN LISPRO 100 UNIT/ML 3 ML VIAL SUBCUT SCH ×4 (08:28→21:46)
[2019-07-27 08:37] LABS: HEMATOCRIT 35.9 % (37.9-51.0); HEMOGLOBIN 11.8 g/dL (13.5-17.0); MEAN CORPUSCULAR HEMOGLOBIN 30.4 pg (27.0-33.4); MEAN CORPUSCULAR HGB CONC 32.8 g/dL (32.0-36.0); MEAN CORPUSCULAR VOLUME 93 fl (80-97); PLATELET COUNT 174 10^3/uL (150-450); RED BLOOD COUNT 3.86 10^6/uL (4.35-5.55); RED CELL DISTRIBUTION WIDTH 15.5 % (11.5-14.0); WHITE BLOOD COUNT 5.7 10^3/uL (4.0-10.5)
[2019-07-27] MEDS: SEVELAMER HCL 800 MG TABLET PO SCH ×3 (08:38→18:48)
[2019-07-27 09:00] LABS: ANION GAP 9 (5-19); BLOOD UREA NITROGEN 35 mg/dL (7-20); CALCIUM 8.3 mg/dL (8.4-10.2); CARBON DIOXIDE 30 mmol/L (22-30); CHLORIDE 101 mmol/L (98-107); GLUCOSE 86 mg/dL (75-110); POTASSIUM 4.6 mmol/L (3.6-5.0)
[2019-07-27] MEDS: GUAIFENESIN 600 MG TABLET.SA PO SCH ×2 (10:44→22:39)
[2019-07-27] MEDS: DOXYCYCLINE HYCLATE 100 MG TABLET PO SCH ×2 (10:44→18:48)
[2019-07-27] MEDS: ASCORBIC ACID 500 MG TABLET PO SCH (10:44)
[2019-07-27] MEDS: FAMOTIDINE 20 MG TABLET PO SCH (10:44)
[2019-07-27] MEDS: ISOSORBIDE MONONITRATE 30 MG TAB.ER.24H PO SCH (10:44)
[2019-07-27] MEDS: FOLIC ACID/VITAMIN B COMP W-C CAPSULE PO SCH (10:44)
[2019-07-27] MEDS: BENZONATATE 100 MG CAPSULE PO SCH ×3 (10:44→18:48)
[2019-07-27] MEDS: ASPIRIN 81 MG TABLET, ENT COATED PO SCH (10:44)
[2019-07-27] MEDS ORDERED: HEPARIN SOD (PORCINE) 1,000 UNIT/ML 10 ML VIAL IV PRN (10:44)
[2019-07-27] MEDS: CLOPIDOGREL BISULFATE 75 MG TABLET PO SCH (10:45)
[2019-07-27] MEDS: CEFTRIAXONE 1 GM/D5W RTU 1 GM/50 ML RTUPB IV SCH (10:45)
[2019-07-27] MEDS: HEPARIN SOD (PORCINE) 5,000 UNIT/ML 1 ML VIAL SUBCUT SCH ×2 (10:45→22:39)
[2019-07-27] MEDS: TAMSULOSIN HCL 0.4 MG CAP.SR.24H PO SCH (10:45)
[2019-07-27] MEDS: FERROUS SULFATE 325 MG TABLET PO SCH (10:45)
[2019-07-27] MEDS: LISINOPRIL 5 MG TABLET PO SCH (10:47)
--- NOTE | 2019-07-27 13:09 | PDOC PROGRESS REPORT ---
Subjective Progress Note for:: 07/27/19 Subjective:: Patient is currently doing fair Patient is denied any chest pain to than any shortness of the breath Patient seen by the cardiology Dr. Lazo order the echocardiogram Patient's otherwise still having some cough but no fever no chills Pain patient has ongoing peripheral vascular disease went to the [facility] seen the vascular surgeon have a procedure done 6-month back Reason For Visit: PNEUMONIA,ESRD ON HEMODIALYSIS,CHRONIC DIASTOLIC Physical Exam Vital Signs: Temp Pulse Resp BP Pulse Ox 98.1 F 75 17 129/72 H 98 07/27/19 08:07 07/27/19 08:07 07/27/19 08:07 07/27/19 08:07 07/27/19 08:07 Intake & Output 07/26/19 07/27/19 07/28/19 06:59 06:59 06:59 Intake Total 770 930 Output Total 2000 Balance -1230 930 Weight 60.5 kg 59.6 kg General appearance: PRESENT: no acute distress, well-developed, well-nourished Head exam: PRESENT: atraumatic, normocephalic Eye exam: PRESENT: conjunctiva pink, EOMI, PERRLA. ABSENT: scleral icterus Ear exam: PRESENT: normal external ear exam Mouth exam: PRESENT: moist, tongue midline Neck exam: PRESENT: full ROM. ABSENT: carotid bruit, JVD, lymphadenopathy, thyromegaly Respiratory exam: PRESENT: clear to auscultation jolie Cardiovascular exam: PRESENT: RRR. ABSENT: diastolic murmur, rubs, systolic murmur Murmur grade: 3 GI/Abdominal exam: PRESENT: normal bowel sounds, soft. ABSENT: distended, guarding, mass, organolmegaly, rebound, tenderness Rectal exam: PRESENT: deferred Neurological exam: PRESENT: alert, awake, oriented to person, oriented to place, oriented to time, oriented to situation, CN II-XII grossly intact. ABSENT: motor sensory deficit Psychiatric exam: PRESENT: appropriate affect, normal mood. ABSENT: homicidal ideation, suicidal ideation Skin exam: PRESENT: dry, intact, warm. ABSENT: cyanosis, rash Results Laboratory Results: 07/27/19 08:14 07/27/19 08:14 07/27/19 07/27/19 08:14 08:14 WBC 5.7 RBC 3.86 L Hgb 11.8 L Hct 35.9 L MCV 93 MCH 30.4 MCHC 32.8 RDW 15.5 H Plt Count 174 Sodium 140.4 Potassium 4.6 Chloride 101 Carbon Dioxide 30 Anion Gap 9 BUN 35 H Creatinine 4.35 H Est GFR ( Amer) 17 L Glucose 86 Calcium 8.3 L 07/23/19 12:15 Troponin I 0.347 Impressions: Chest X-Ray 07/23/19 12:00 IMPRESSION: Stable AP portable examination with left greater than right pleural effusions and/or pleural thickening. No focal airspace opacity. Cardiomegaly with left chest large bore multi lumen catheter. Chest CT 07/25/19 00:00 IMPRESSION: Small to moderate bilateral pleural effusions right greater than left. There is associated basilar airspace disease either atelectasis or pneumonia. Assessment & Plan - Diagnosis (1) Pneumonia Qualifiers: Pneumonia type: due to unspecified organism Laterality: unspecified laterality Lung location: unspecified part of lung Qualified Code(s): J18.9 - Pneumonia, unspecified organism Is this a current diagnosis for this admission?: Yes Plan: Continues to antibiotics (2) Chronic diastolic (congestive) heart failure Is this a current diagnosis for this admission?: Yes Plan: Will follow with the cardiology will wait for the echocardiogram reports (3) End stage renal disease Is this a current diagnosis for this admission?: Yes Plan: Consult to Dr. 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) Is this a current diagnosis for this admission?: Yes (7) Cerebrovascular disease Is this a current diagnosis for this admission?: Yes (8) Diabetes mellitus, type II Qualifiers: Diabetes mellitus terminal press operator insulin use: with terminal press operator use Diabetes mellitus complication status: with other specified complication Qualified Code(s): E11.69 - Type 2 diabetes mellitus with other specified complication; Z79.4 - [facility] (current) use of insulin; Z79.4 - [facility] (current) use of insulin; Z79.4 - [facility] (current) use of insulin; Z79.4 - [facility] (current) use of insulin Is this a current diagnosis for this admission?: Yes (9) History of kidney transplant Is this a current diagnosis for this admission?: Yes (10) Peripheral arterial disease Is this a current diagnosis for this admission?: Yes Plan: She did have extensive evaluations done by the vascular surgery here and also sent to the [facility] have a procedure done but patient still have some dry gangrene I think patients was refused amputation in the past Currently not septic - Time Time Spent with patient: 25-34 minutes Medications reviewed and adjusted accordingly: Yes Anticipated discharge: Other Within: Other - Plan Summary Plan Summary: Very extensive discussions with the patient's regarding the patient's current conditions with overall with the multiple comorbidity not a very good pr ognosis Also discussed about the significant peripheral arterial disease patient seen by the vascular surgeon at [facility] Also discussed about the pleural effusions heart disease and ongoing chronic other multiple comorbidity Discuss about the CODE STATUS
--- NOTE | 2019-07-27 13:22 | XCELERA REPORT ---
[address] [address] Transthoracic Echocardiogram Report Name: KATHRYN HURLEY Age: 63 yrs Gender: Male : 1955 Patient Status: Inpatient Patient Location: [address] [place] [address] Study Date: 07/27/2019 10:27 AM Height: 67 in Weight: 133 lb BSA: 1.7 m2 Procedure: A complete two-dimensional transthoracic echocardiogram was performed (2D, M-mode, spectral and color flow Doppler). The study was technically adequate with some images being suboptimal in quality. Reason For Study: CHF Ordering Physician: ZOE GROVE Performed By: Renee Ybarra Interpretation Summary The Ejection Fraction estimate is 45-50% Left ventricular systolic function is mildly reduced. There is moderate concentric left ventricular hypertrophy. The left ventricle is grossly normal size. Doppler measurements suggest pseudonormalized left ventricular relaxation, which is associated with grade II/IV or mild to moderate diastolic dysfunction There is apical wall mild hypokinesis The right ventricular systolic function is normal. The left atrial size is normal. The right atrium is normal in size There is no mitral valve stenosis. There is a moderate amount of mitral regurgitation There is no aortic valve stenosis There is a mild amount of aortic regurgitation There is no pericardial effusion. Small left pleural effusion. MMode/2D Measurements & Calculations RVDd: 4.0 cm LVIDd: 4.6 cm FS: 30.9 % Ao root diam: 2.6 cm IVSd: 1.1 cm LVIDs: 3.2 cm EDV(Teich): 98.9 ml Ao root area: 5.2 cm2 LVPWd: 1.1 cm ESV(Teich): 41.0 ml LA dimension: 3.5 cm EF(Teich): 58.6 % Doppler Measurements & Calculations MV E max luis eduardo: MV P1/2t max luis eduardo: Ao V2 max: AI max luis eduardo: 190.0 cm/sec 191.3 cm/sec 142.8 cm/sec 401.2 cm/sec MV A max luis eduardo: MV P1/2t: 60.2 msec Ao max PG: AI max P.3 cm/sec MVA(P1/2t): 3.7 cm2 8.2 mmHg 64.4 mmHg MV E/A: 1.4 MV dec slope: AI dec slope: 344.3 cm/sec2 930.5 cm/sec2 AI P1/2t: MV dec time: 341.3 msec 0.20 sec LV V1 max PG: PA V2 max: PI end-d luis eduardo: TR max luis eduardo: 1.5 mmHg 47.9 cm/sec 182.4 cm/sec 291.0 cm/sec LV V1 max: PA max P.92 mmHg TR max P.1 cm/sec 33.9 mmHg AV P1/2t-pr_phl: MV P1/2t-pr_phl: 341.3 msec 60.2 msec Left Ventricle The left ventricle is grossly normal size. There is moderate concentric left ventricular hypertrophy. Left ventricular systolic function is mildly reduced. The Ejection Fraction estimate is 45-50%. Doppler measurements suggest pseudonormalized left ventricular relaxation, which is associated with grade II/IV or mild to moderate diastolic dysfunction. There is apical wall mild hypokinesis. Right Ventricle The right ventricle is grossly normal size. There is normal right ventricular wall thickness. The right ventricular systolic function is normal. Atria The right atrium is normal in size. The left atrial size is normal. Interarterial septum not well visualized and not well dopplered. Cannot comment on ASD/PFO presence. Mitral Valve There is moderate mitral leaflet calcification. There is no mitral valve stenosis. There is a moderate amount of mitral regurgitation. Aortic Valve The aortic valve is mildly calcified. There is no aortic valve stenosis. There is a mild amount of aortic regurgitation. Tricuspid Valve The tricuspid valve is not well visualized, but is grossly normal. There is no tricuspid stenosis. There is a mild amount of tricuspid regurgitation. There is mild pulmonary hypertension by echo. Right ventricular systolic pressure is estimated to be elevated at 30-40mmHg. Pulmonic Valve The pulmonic valve is not well visualized. Great Vessels The aortic root is not well visualized but is probably normal size. The inferior vena cava appeared normal and decreased < 50% with respiration (RAP 10-15 mmHg). Effusions There is no pericardial effusion. Small left pleural effusion. : ZOE GROVE Shyamal
[2019-07-27 13:53] LABS: ARTERIAL BLOOD BASE EXCESS 0.8 mmol/L; ARTERIAL BLOOD H2CO3 1.44 mmol/L (1.05-1.35); ARTERIAL BLOOD HCO3 26.8 mmol/L (20-24); ARTERIAL BLOOD O2 SATURATION 97.3 % (94-98); ARTERIAL BLOOD PH 7.36 (7.35-7.45); ARTERIAL BLOOD PO2 99.4 mmHg (80-100); ARTERIAL BLOOD TOTAL CO2 28.2 mmol/L (23-27)
[2019-07-27 13:58] LABS: ARTERIAL BLOOD FIO2 2
[2019-07-27] MEDS: ONDANSETRON HCL INJ/PF 4 MG/2 ML SDV IV PRN (15:15)
--- NOTE | 2019-07-27 21:25 | PDOC PROGRESS REPORT ---
Subjective Progress Note for:: 07/27/19 Reason For Visit: Patient seen on hemodialysis today. He is undergoing dialysis without any issues. Today he looks a whole lot better than when I saw him previously. He is awake alert and responding very well. He says he feels better a whole lot compared to a couple of days ago. He denies any history of fever or chills. Labs and medications were reviewed. Dialysis orders were reviewed with the treating dialysis nurse. Physical Exam Vital Signs: Temp Pulse Resp BP Pulse Ox 98.1 F 87 16 129/72 H 96 07/27/19 08:07 07/27/19 19:00 07/27/19 16:00 07/27/19 08:07 07/27/19 16:00 Intake & Output 07/26/19 07/27/19 07/28/19 06:59 06:59 06:59 Intake Total 770 930 770 Output Total 2000 3060 Balance -1230 930 -2290 Weight 60.5 kg 59.6 kg General appearance: PRESENT: no acute distress Respiratory exam: PRESENT: clear to auscultation jolie. ABSENT: crackles Cardiovascular exam: PRESENT: +S1, +S2 GI/Abdominal exam: PRESENT: normal bowel sounds, soft. ABSENT: organomegaly, tenderness Extremities exam: PRESENT: pedal edema Neurological exam: PRESENT: alert, awake, oriented to person, oriented to place Results Laboratory Results: 07/27/19 08:14 07/27/19 08:14 07/27/19 07/27/19 07/27/19 08:14 08:14 13:30 WBC 5.7 RBC 3.86 L Hgb 11.8 L Hct 35.9 L MCV 93 MCH 30.4 MCHC 32.8 RDW 15.5 H Plt Count 174 Carbonic Acid 1.44 H HCO3/H2CO3 Ratio 18:1 ABG pH 7.36 ABG pCO2 48.0 H ABG pO2 99.4 ABG HCO3 26.8 H ABG O2 Saturation 97.3 ABG Base Excess 0.8 FiO2 2 Sodium 140.4 Potassium 4.6 Chloride 101 Carbon Dioxide 30 Anion Gap 9 BUN 35 H Creatinine 4.35 H Est GFR ( Amer) 17 L Glucose 86 Calcium 8.3 L 07/23/19 12:15 Troponin I 0.347 Impressions: Chest X-Ray 07/23/19 12:00 IMPRESSION: Stable AP portable examination with left greater than right pleural effusions and/or pleural thickening. No focal airspace opacity. Cardiomegaly with left chest large bore multi lumen catheter. Chest CT 07/25/19 00:00 IMPRESSION: Small to moderate bilateral pleural effusions right greater than left. There is associated basilar airspace disease either atelectasis or pneumonia. Assessment & Plan - Diagnosis (1) Pneumonia Qualifiers: Pneumonia type: due to unspecified organism Laterality: unspecified laterality Lung location: unspecified part of lung Qualified Code(s): J18.9 - Pneumonia, unspecified organism Is this a current diagnosis for this admission?: Yes Plan: Patient improving clinically. Further orders as per primary care. (2) ESRD on hemodialysis Is this a current diagnosis for this admission?: Yes Plan: Patient currently undergoing dialysis without any issues. Vital signs are stable. Dialysis is being supervised to ensure safe and smooth procedure. Plan to remove it in 1 to 2 L as tolerated. Dialysis orders reviewed with the treating dialysis nurse. (3) Chronic diastolic (congestive) heart failure Is this a current diagnosis for this admission?: Yes Plan: Currently compensated. (4) Axonal GBS (Guillain-Salina syndrome) Is this a current diagnosis for this admission?: Yes Plan: Status quo. Residual deficits as of earlier. (5) Diabetes mellitus, type II Qualifiers: Diabetes mellitus skilled nursing insulin use: with exterminator helper use Diabetes mellitus complication status: with other specified complication Qualified Code(s): E11.69 - Type 2 diabetes mellitus with other specified complication; Z79.4 - senior living (current) use of insulin; Z79.4 - senior living (current) use of insulin; Z79.4 - intermission coordinator (current) use of insulin; Z79.4 - senior living (current) use of insulin Is this a current diagnosis for this admission?: Yes Plan: Advised tight control. (6) ESBL (extended spectrum beta-lactamase) producing bacteria infection Plan: History of. (7) Peripheral vascular disease Plan: Status quo. Patient showing signs of early dry gangrene which has been worked up. (8) VRE (vancomycin resistant enterococcus) culture positive Plan: History of.
[2019-07-27] MEDS: ATORVASTATIN CALCIUM 20 MG TABLET PO SCH (22:39)
--- NOTE | 2019-07-27 22:39 | PDOC PROGRESS REPORT ---
Subjective Progress Note for:: 07/27/19 Subjective:: Congestive heart failure, abnormal troponin I. Patient however denied any chest pain. His main symptom was shortness of breath. Today he is complaining of some abdominal pain. Patient claims that he is getting antibiotics. He has also gotten some medicine. Telemetry strip shows no significant arrhythmias. Patient just had one troponin I drawn which was noted to be in the low suggestive range 2D echocardiogram performed today shows relatively well- preserved LVEF at 45 to 50%, moderate mitral regurgitation and possible apical hypokinesia. Patient has history of significant coronary artery disease, peripheral vascular disease, end-stage renal disease on dialysis. Patient also has and is basically bedbound. Reason For Visit: PNEUMONIA,ESRD ON HEMODIALYSIS,CHRONIC DIASTOLIC Physical Exam Vital Signs: Temp Pulse Resp BP Pulse Ox 98.1 F 87 16 129/72 H 96 07/27/19 08:07 07/27/19 19:00 07/27/19 16:00 07/27/19 08:07 07/27/19 16:00 Intake & Output 07/26/19 07/27/19 07/28/19 06:59 06:59 06:59 Intake Total 770 930 770 Output Total 2000 3060 Balance -1230 930 -2290 Weight 60.5 kg 59.6 kg Exam: GENERAL: well-nourished and in no acute distress. Alert and oriented x3 HEAD: Atraumatic, normocephalic. EYES: JORGE, sclera anicteric, conjunctiva are normal. ENT: Moist mucous membranes. No oral ulcerations or bleeding gums noted. No obvious ear, nose or throat abnormalities noted. NECK: supple without lymphadenopathy. Trachea is central. No cervical or axillary lymphadenopathy noted. Carotids are 2+, JVD WNL LUNGS: Breath sounds clear bilaterally. No wheezes rales or rhonchi noted. Mild diminished breath sounds and mild dullness noted on percussion, especially both bases. CHEST: Palpation of the chest wall shows no significant chest wall tenderness. HEART: [place] CRITICAL CARE SPECIALIST, No PSH, 1/6 MELBA aortic area, 1/6 [place] systolic murmur mitral area, no rubs, no gallops. ABDOMEN: Soft, no significant tenderness appreciated, normoactive bowel sounds. No guarding, no rebound. No rigidity noted . No masses appreciated. EXTREMITIES: Pedal pulses are 1-2+, no calf tenderness noted. No clubbing or cyanosis. negative pedal edema noted NEUROLOGICAL: Focused neurological exam showed all 4 extremities to be significantly weak with lower extremity more weak than upper and wasting of muscles PSYCH: Normal mood, normal affect. Judgment and insight within normal limits. SKIN: No significant ecchymosis, skin is noted to be warm. MUSCULOSKELETAL EXAM: No significant acute joint swelling noted. Results Laboratory Results: 07/27/19 08:14 07/27/19 08:14 07/27/19 07/27/19 07/27/19 08:14 08:14 13:30 WBC 5.7 RBC 3.86 L Hgb 11.8 L Hct 35.9 L MCV 93 MCH 30.4 MCHC 32.8 RDW 15.5 H Plt Count 174 Carbonic Acid 1.44 H HCO3/H2CO3 Ratio 18:1 ABG pH 7.36 ABG pCO2 48.0 H ABG pO2 99.4 ABG HCO3 26.8 H ABG O2 Saturation 97.3 ABG Base Excess 0.8 FiO2 2 Sodium 140.4 Potassium 4.6 Chloride 101 Carbon Dioxide 30 Anion Gap 9 BUN 35 H Creatinine 4.35 H Est GFR ( Amer) 17 L Glucose 86 Calcium 8.3 L 07/23/19 12:15 Troponin I 0.347 EKG Comments: Shows sinus rhythm without any sustained tachycardia or bradycardia Impressions: Chest X-Ray 07/23/19 12:00 IMPRESSION: Stable AP portable examination with left greater than right pleural effusions and/or pleural thickening. No focal airspace opacity. Cardiomegaly with left chest large bore multi lumen catheter. Chest CT 07/25/19 00:00 IMPRESSION: Small to moderate bilateral pleural effusions right greater than left. There is associated basilar airspace disease either atelectasis or pneumonia. Assessment & Plan - Diagnosis (1) Chronic diastolic (congestive) heart failure Is this a current diagnosis for this admission?: Yes (2) End stage renal disease Is this a current diagnosis for this admission?: Yes (3) Hypoxia Is this a current diagnosis for this admission?: Yes (4) Peripheral arterial disease Is this a current diagnosis for this admission?: Yes (5) Coronary artery disease Qualifiers: Coronary Disease-Associated Artery/Lesion type: unspecified vessel or lesion type [place] vs. transplanted heart: [place] heart Associated angina: angina presence unspecified Qualified Code(s): I25.10 - Atherosclerotic heart disease of [place] coronary artery without angina pectoris Is this a current diagnosis for this admission?: Yes (6) Diabetes mellitus, type II Qualifiers: Diabetes mellitus buttermaker helper insulin use: with prison use Diabetes mellitus complication status: with other specified complication Qualified Code(s): E11.69 - Type 2 diabetes mellitus with other specified complication; Z79.4 - termite helper (current) use of insulin; Z79.4 - [facility] (current) use of insulin; Z79.4 - [facility] (current) use of insulin; Z79.4 - [facility] (current) use of insulin Is this a current diagnosis for this admission?: Yes - Notes Notes: Patient has multiple significant comorbid diagnoses which are being well managed by fire pilot and casino runner. Cardiology consultation is for abnormal troponin I, abnormal EKG and CHF. Patient has bilateral pleural effusion which is most likely related to CHF from systolic plus diastolic dysfunction however agreed that other causes would need to be ruled out such as low albumin, bilateral pneumonitis although these possibilities are less likely. Agree with antibiotic therapy. Based on 2D echocardiogram results, would recommend carvedilol therapy, hyd ralazine nitrate therapy, MARILIN inhibitor/ARB therapy. Patient does have mitral regurgitation which is moderate which would need to be followed on a regular basis As regards abnormal troponin I and abnormal EKG, possibility of subacute non- STEMI is there to hypoxemia and blood pressure abnormalities which were noted on presentation. Also due to patient's significant comorbid diagnosis and absence of chest pain, do not plan on any invasive evaluation at this point. Any procedure has significant risk and cardiac catheterization would be undertaken in presence of chest pain or other significant symptoms. We will discuss this further with Dr. Girard and family. Doing well without any significant shortness of breath as regards CHF a chest x-ray is planned therapeutic and diagnostic thoracentesis can be considered but since patient is not short of breath, we can leave him alone. - Time Time with patient: Greater than 35 minutes - More than 50% of the time spent coordinating care, discussing management plans with involved caregivers. Management plans discussed with involved personnels. Medical decision making was of moderate to high complexity, patient's has multiple comorbidities. Medications reviewed and adjusted accordingly: Yes
[2019-07-27] MEDS: IPRATROPIUM/ALBUTEROL 0.5-2.5 MG/3 ML AMPUL NEB PRN (22:48)
--- NOTE | 2019-07-28 09:07 | PDOC PROGRESS REPORT ---
Subjective Progress Note for:: 07/28/19 Subjective:: Patient is currently doing much better Patient's denied any chest pain to than any shortness of the breath Reason For Visit: PNEUMONIA,ESRD ON HEMODIALYSIS,CHRONIC DIASTOLIC Physical Exam Vital Signs: Temp Pulse Resp BP Pulse Ox 97.9 F 76 17 138/75 H 98 07/28/19 08:07 07/28/19 08:07 07/28/19 08:07 07/28/19 08:07 07/28/19 08:07 Intake & Output 07/27/19 07/28/19 07/29/19 06:59 06:59 06:59 Intake Total 930 770 Output Total 3060 Balance 930 -2290 Weight 59.6 kg 57.1 kg General appearance: PRESENT: no acute distress, well-developed, well-nourished Head exam: PRESENT: atraumatic, normocephalic Eye exam: PRESENT: conjunctiva pink, EOMI, PERRLA. ABSENT: scleral icterus Ear exam: PRESENT: normal external ear exam Mouth exam: PRESENT: moist, tongue midline Neck exam: PRESENT: full ROM. ABSENT: carotid bruit, JVD, lymphadenopathy, thyromegaly Respiratory exam: PRESENT: clear to auscultation jolie Cardiovascular exam: PRESENT: RRR. ABSENT: diastolic murmur, rubs, systolic murmur Murmur grade: 3 Vascular exam: PRESENT: normal capillary refill GI/Abdominal exam: PRESENT: normal bowel sounds, soft. ABSENT: distended, guarding, mass, organolmegaly, rebound, tenderness Rectal exam: PRESENT: deferred Neurological exam: PRESENT: alert, awake, oriented to person, oriented to place, oriented to time, oriented to situation, CN II-XII grossly intact. ABSENT: motor sensory deficit Psychiatric exam: PRESENT: appropriate affect, normal mood. ABSENT: homicidal ideation, suicidal ideation Skin exam: PRESENT: dry, intact, warm. ABSENT: cyanosis, rash Results Laboratory Results: 07/27/19 08:14 07/27/19 08:14 07/27/19 13:30 Carbonic Acid 1.44 H HCO3/H2CO3 Ratio 18:1 ABG pH 7.36 ABG pCO2 48.0 H ABG pO2 99.4 ABG HCO3 26.8 H ABG O2 Saturation 97.3 ABG Base Excess 0.8 FiO2 2 07/23/19 12:15 Troponin I 0.347 Impressions: Chest X-Ray 07/23/19 12:00 IMPRESSION: Stable AP portable examination with left greater than right pleural effusions and/or pleural thickening. No focal airspace opacity. Cardiomegaly with left chest large bore multi lumen catheter. Chest CT 07/25/19 00:00 IMPRESSION: Small to moderate bilateral pleural effusions right greater than left. There is associated basilar airspace disease either atelectasis or pneumonia. Assessment & Plan - Diagnosis (1) Pneumonia Qualifiers: Pneumonia type: due to unspecified organism Laterality: unspecified laterality Lung location: unspecified part of lung Qualified Code(s): J18.9 - Pneumonia, unspecified organism Is this a current diagnosis for this admission?: Yes Plan: Continues to antibiotics (2) Chronic diastolic (congestive) heart failure Is this a current diagnosis for this admission?: Yes Plan: Will follow with the cardiology will wait for the echocardiogram reports (3) End stage renal disease Is this a current diagnosis for this admission?: Yes Plan: Consult to Dr. Tavares (4) Hypoxia Is this a current diagnosis for this admission?: Yes Plan: We redo the chest x-ray after the dialysis may be need a CT scan of the chest if it is not improving (5) Anemia in chronic kidney disease (CKD) Qualifiers: Chronic kidney disease stage: stage 5, not on chronic dialysis Qualified Code(s): N18.5 - Chronic kidney disease, stage 5; D63.1 - Anemia in chronic kidney disease; D63.1 - Anemia in chronic kidney disease Is this a current diagnosis for this admission?: Yes (6) Axonal GBS (Guillain-Ringling syndrome) Is this a current diagnosis for this admission?: Yes (7) Cerebrovascular disease Is this a current diagnosis for this admission?: Yes (8) Diabetes mellitus, type II Qualifiers: Diabetes mellitus [facility] insulin use: with roasterman use Diabetes mellitus complication status: with other specified complication Qualified Code(s): E11.69 - Type 2 diabetes mellitus with other specified complication; Z79.4 - intermediate project manager (current) use of insulin; Z79.4 - intermediate project manager (current) use of insulin; Z79.4 - [facility] (current) use of insulin; Z79.4 - intermediate project manager (current) use of insulin Is this a current diagnosis for this admission?: Yes (9) History of kidney transplant Is this a current diagnosis for this admission?: Yes (10) Peripheral arterial disease Is this a current diagnosis for this admission?: Yes - Time Time Spent with patient: 25-34 minutes Medications reviewed and adjusted accordingly: Yes Anticipated discharge: Home with Homehealth Within: Other - Plan Summary Plan Summary: Will repeat the chest x-ray today
[2019-07-28] MEDS: INSULIN LISPRO 100 UNIT/ML 3 ML VIAL SUBCUT SCH ×4 (09:22→21:49)
[2019-07-28] MEDS: SEVELAMER HCL 800 MG TABLET PO SCH ×3 (09:23→17:18)
--- NOTE | 2019-07-28 09:46 | RADIOLOGY REPORT (SQ) ---
EXAM DESCRIPTION: CHEST SINGLE VIEW COMPLETED DATE/TIME: 07/28/2019 9:33 am REASON FOR STUDY: Dyspnea COMPARISON: 07/23/2019 EXAM PARAMETERS: NUMBER OF VIEWS: One view. TECHNIQUE: Single frontal radiographic view of the chest acquired. RADIATION DOSE: NA LIMITATIONS: None. FINDINGS: Stable AP portable examination with left greater than right pleural effusions and/or pleur al thickening and associated consolidation or atelectasis of the left lung base. Unchanged cardiomeg marvel status post median sternotomy with left chest large bore multi lumen vascular catheter. IMPRESSION: Stable AP portable examination with left greater than right pleural effusions and/or ple ural thickening and associated consolidation or atelectasis of the left lung base. Unchanged cardiom egaly status post median sternotomy with left chest large bore multi lumen vascular catheter. TECHNICAL DOCUMENTATION: JOB ID: [id number] [employer]- All Rights Reserved Reading location - IP/workstation name: [email or web address]
[2019-07-28] MEDS: CEFTRIAXONE 1 GM/D5W RTU 1 GM/50 ML RTUPB IV SCH (10:35)
[2019-07-28] MEDS: DOXYCYCLINE HYCLATE 100 MG TABLET PO SCH (10:36)
[2019-07-28] MEDS: HEPARIN SOD (PORCINE) 5,000 UNIT/ML 1 ML VIAL SUBCUT SCH ×2 (10:36→21:49)
[2019-07-28] MEDS: CLOPIDOGREL BISULFATE 75 MG TABLET PO SCH (10:36)
[2019-07-28] MEDS: BENZONATATE 100 MG CAPSULE PO SCH ×3 (10:36→17:18)
[2019-07-28] MEDS: FOLIC ACID/VITAMIN B COMP W-C CAPSULE PO SCH (10:36)
[2019-07-28] MEDS: ISOSORBIDE MONONITRATE 30 MG TAB.ER.24H PO SCH (10:36)
[2019-07-28] MEDS: LISINOPRIL 5 MG TABLET PO SCH (10:37)
[2019-07-28] MEDS: ASCORBIC ACID 500 MG TABLET PO SCH (10:37)
[2019-07-28] MEDS: ASPIRIN 81 MG TABLET, ENT COATED PO SCH (10:37)
[2019-07-28] MEDS: FAMOTIDINE 20 MG TABLET PO SCH (10:37)
[2019-07-28] MEDS: TAMSULOSIN HCL 0.4 MG CAP.SR.24H PO SCH (10:37)
[2019-07-28] MEDS: GUAIFENESIN 600 MG TABLET.SA PO SCH ×2 (10:37→21:49)
[2019-07-28] MEDS: FERROUS SULFATE 325 MG TABLET PO SCH (10:37)
[2019-07-28] MEDS: ONDANSETRON HCL INJ/PF 4 MG/2 ML SDV IV PRN (13:19)
[2019-07-28] MEDS ORDERED: MAG HYDROX/AL HYDROX/SIMETH SUSP 30 ML UDCUP PO PRN (16:47)
[2019-07-28] MEDS: ATORVASTATIN CALCIUM 20 MG TABLET PO SCH (21:49)
[2019-07-29] MEDS: IPRATROPIUM/ALBUTEROL 0.5-2.5 MG/3 ML AMPUL NEB PRN (00:33)
[2019-07-29] MEDS ORDERED: NORMAL SALINE 1000 ML 1,000 ML IV PRN (05:00)
[2019-07-29] MEDS ORDERED: HEPARIN SOD (PORCINE) 1,000 UNIT/ML 10 ML VIAL IV PRN (05:00)
[2019-07-29 06:42] LABS: ABSOLUTE BASOPHILS # (AUTO) 0.1 10^3/uL (0.0-0.2); ABSOLUTE EOSINOPHILS # (AUTO) 0.3 10^3/uL (0.0-0.6); ABSOLUTE MONOCYTES (AUTO) 0.5 10^3/uL (0.1-1.4); ABSOLUTE NEUT (AUTO) 1.9 10^3/uL (1.7-8.2); EOSINOPHILS % (AUTO) 5.1 % (0-6); HEMATOCRIT 38.2 % (37.9-51.0); HEMOGLOBIN 12.7 g/dL (13.5-17.0); LYMPHOCYTES % (AUTO) 52.7 % (13-45); MEAN CORPUSCULAR HEMOGLOBIN 30.5 pg (27.0-33.4); MEAN CORPUSCULAR HGB CONC 33.3 g/dL (32.0-36.0); MEAN CORPUSCULAR VOLUME 92 fl (80-97); MONOCYTES % (AUTO) 8.9 % (3-13); PLATELET COUNT 177 10^3/uL (150-450); RED BLOOD COUNT 4.16 10^6/uL (4.35-5.55); RED CELL DISTRIBUTION WIDTH 15.4 % (11.5-14.0); SEGMENTED NEUTROPHILS % (AUTO) 32.3 % (42-78); TOTAL CELLS COUNTED % (AUTO) 100 %; WHITE BLOOD COUNT 5.7 10^3/uL (4.0-10.5)
[2019-07-29 07:01] LABS: ANION GAP 13 (5-19); BLOOD UREA NITROGEN 31 mg/dL (7-20); CALCIUM 8.9 mg/dL (8.4-10.2); CARBON DIOXIDE 26 mmol/L (22-30); CHLORIDE 101 mmol/L (98-107); GLUCOSE 75 mg/dL (75-110); POTASSIUM 4.6 mmol/L (3.6-5.0)
[2019-07-29] MEDS: SEVELAMER HCL 800 MG TABLET PO SCH ×3 (07:42→17:05)
[2019-07-29] MEDS: INSULIN LISPRO 100 UNIT/ML 3 ML VIAL SUBCUT SCH ×4 (07:43→21:27)
--- NOTE | 2019-07-29 08:34 | RADIOLOGY REPORT (SQ) ---
EXAM DESCRIPTION: U/S CHEST COMPLETED DATE/TIME: 07/28/2019 8:35 pm REASON FOR STUDY: r/o pleural effusion COMPARISON: None. TECHNIQUE: Realtime and static grayscale images of the right and left hemithoraces were obtained and sent to PACs for interpretation. LIMITATIONS: None. FINDINGS: There are bilateral pleural effusions; there is a moderate volume of fluid in the right pl eural space and a trace amount of fluid on the contralateral side. IMPRESSION: Bilateral, right greater than left, pleural effusions. TECHNICAL DOCUMENTATION: JOB ID: [id number] [employer]- All Rights Reserved Reading location - IP/workstation name: [email or web address]
--- NOTE | 2019-07-29 09:56 | PDOC PROGRESS REPORT ---
Subjective Progress Note for:: 07/29/19 Subjective:: Patients have a persistent right-sided pleural effusions Still have ongoing cough with productive sputum No fever no chills No chest pain Doxycycline was discontinued because of the upset stomach Reason For Visit: PNEUMONIA,ESRD ON HEMODIALYSIS,CHRONIC DIASTOLIC Physical Exam Vital Signs: Temp Pulse Resp BP Pulse Ox 98.0 F 90 16 168/85 H 96 07/29/19 07:39 07/29/19 07:39 07/29/19 07:39 07/29/19 07:39 07/29/19 07:39 Intake & Output 07/28/19 07/29/19 07/30/19 06:59 06:59 06:59 Intake Total 770 350 Output Total 3060 Balance -2290 350 Weight 57.1 kg 57.8 kg General appearance: PRESENT: no acute distress, well-developed, well-nourished Head exam: PRESENT: atraumatic, normocephalic Eye exam: PRESENT: conjunctiva pink, EOMI, PERRLA. ABSENT: scleral icterus Ear exam: PRESENT: normal external ear exam Mouth exam: PRESENT: moist, tongue midline Neck exam: PRESENT: full ROM. ABSENT: carotid bruit, JVD, lymphadenopathy, thyromegaly Respiratory exam: PRESENT: decreased breath sounds Cardiovascular exam: PRESENT: RRR. ABSENT: diastolic murmur, rubs, systolic murmur Murmur grade: 3 Vascular exam: PRESENT: normal capillary refill GI/Abdominal exam: PRESENT: normal bowel sounds, soft. ABSENT: distended, guarding, mass, organolmegaly, rebound, tenderness Rectal exam: PRESENT: deferred Neurological exam: PRESENT: alert, awake, oriented to person, oriented to place, oriented to time, oriented to situation, CN II-XII grossly intact. ABSENT: motor sensory deficit Psychiatric exam: PRESENT: appropriate affect, normal mood. ABSENT: homicidal ideation, suicidal ideation Skin exam: PRESENT: dry, intact, warm. ABSENT: cyanosis, rash Results Laboratory Results: 07/29/19 06:06 07/29/19 06:06 07/29/19 07/29/19 06:06 06:06 WBC 5.7 RBC 4.16 L Hgb 12.7 L Hct 38.2 MCV 92 MCH 30.5 MCHC 33.3 RDW 15.4 H Plt Count 177 Seg Neutrophils % 32.3 L Sodium 140.0 Potassium 4.6 Chloride 101 Carbon Dioxide 26 Anion Gap 13 BUN 31 H Creatinine 4.25 H Est GFR ( Amer) 17 L Glucose 75 Calcium 8.9 07/23/19 13:03 Blood Blood Culture - Final NO GROWTH IN 5 DAYS 07/23/19 12:15 Blood Blood Culture - Final NO GROWTH IN 5 DAYS 07/23/19 12:15 Troponin I 0.347 Impressions: Chest CT 07/25/19 00:00 IMPRESSION: Small to moderate bilateral pleural effusions right greater than left. There is associated basilar airspace disease either atelectasis or pneumonia. Chest Ultrasound 07/28/19 00:00 IMPRESSION: Bilateral, right greater than left, pleural effusions. Chest X-Ray 07/28/19 00:00 IMPRESSION: Stable AP portable examination with left greater than right pleural effusions and/or pleural thickening and associated consolidation or atelectasis of the left lung base. Unchanged cardiomegaly status post median sternotomy with left chest large bore multi lumen vascular catheter. Assessment & Plan - Diagnosis (1) Pneumonia Qualifiers: Pneumonia type: due to unspecified organism Laterality: unspecified laterality Lung location: unspecified part of lung Qualified Code(s): J18.9 - Pneumonia, unspecified organism Is this a current diagnosis for this admission?: Yes Plan: Continues to antibiotics (2) Chronic diastolic (congestive) heart failure Is this a current diagnosis for this admission?: Yes Plan: Will follow with the cardiology will wait for the echocardiogram reports (3) End stage renal disease Is this a current diagnosis for this admission?: Yes Plan: Consult to Dr. 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) Is this a current diagnosis for this admission?: Yes (7) Cerebrovascular disease Is this a current diagnosis for this admission?: Yes (8) Diabetes mellitus, type II Qualifiers: Diabetes mellitus residential insulin use: with exterminator use Diabetes mellitus complication status: with other specified complication Qualified Code(s): E11.69 - Type 2 diabetes mellitus with other specified complication; Z79.4 - exterminator (current) use of insulin; Z79.4 - exterminator (current) use of insulin; Z79.4 - exterminator (current) use of insulin; Z79.4 - exterminator (current) use of insulin Is this a current diagnosis for this admission?: Yes (9) History of kidney transplant Is this a current diagnosis for this admission?: Yes (10) Peripheral arterial disease Is this a current diagnosis for this admission?: Yes (11) Pleural effusion on left Is this a current diagnosis for this admission?: Yes (12) Pleural effusion on right Is this a current diagnosis for this admission?: Yes Plan: With uncertain etiology is we will get the thoracocentesis discussed with the Dr. Waters and a cardiology and discussed with the patient and the about the procedures - Time Time Spent with patient: 25-34 minutes Medications reviewed and adjusted accordingly: Yes Anticipated discharge: Home with Homehealth Within: Other - Plan Summary Plan Summary: We will schedule the thoracocentesis today
[2019-07-29] MEDS ORDERED: ERGOCALCIFEROL (VITAMIN D2) 50000 UNIT (1.25 MG) CAPSULE PO SCH (10:00)
[2019-07-29 11:34] LABS: INTERNATIONAL RATION (INR) 1.06; PROTHROMBIN TIME 13.8 SEC (11.4-15.4)
--- NOTE | 2019-07-29 11:34 | PDOC CONSULTATION ---
Consultation Consult Date: 07/27/19 Attending physician:: KEEGAN MONTENEGRO Provider Consulted: ODALIS AVITIA Consult reason:: Dyspnea History of Present Illness Admission Date/PCP: 07/23/19 13:54 KEEGAN MONTENEGRO MD History of Present Illness: KATHRYN HURLEY is a 63 year old male, presented to the emergency room with cough and fever and weakness is a history of Guillain-[place] chronic renal failure is currently being dialyzed 3 times a week. On admission he was noted he had a effusions bilaterally. He denies a productive cough or hemoptysis his PPD is negative dates unknown he admits to history of asthma as a child seemed to improve during adolescent. He admits to exposure large amounts of passive smoke as a child as well as an adult. He has no significant occupational exposure to potential respiratory toxins he denies any pets or recent travel he denies angina-like chest pain sleeps on 1-2 pillows occasional PND occasional nocturnal cough carrying a diagnosis of COPD also carries a diagnosis of asthma and RUDY Past Medical History Cardiac Medical History: Reports: Congestive Heart Failure, Coronary Artery Disease, Myocardial Infarction - QUADRUPLE BYPASS 2007, HEART MURMUR, Hyperlipidema, Hypertension Pulmonary Medical History: Reports: Asthma, Chronic Obstructive Pulmonary Disease (COPD), Intubation, Pneumonia - HX. GUILLAIN-BARRE' SYNDROME, Respiratory Failure, Sleep Apnea - On C Pap Neurological Medical History: Endocrine Medical History: Reports: Diabetes Mellitus Type 1, Diabetes Mellitus Type 2 Renal/ Medical History: Reports: End Stage Renal Disease GI Medical History: Reports: Gastroesophageal Reflux Disease Musculoskeltal Medical History: Psychiatric Medical History: Denies: Depression - anxiety Hematology: Reports: Anemia Infectious Medical History: Reports: Clostridium Difficile Past Surgical History Past Surgical History: Reports: Cardiac Catheterization, Coronary Artery Bypass Graft - Quadruple bypass 2007, Vascular Surgery - left AV fistual, Other - History peritoneal dialysis catheter placement and removal Social History Information Source: Patient, [facility] Records Smoking Status: Unknown if Ever Smoked Frequency of Alcohol Use: None Hx Recreational Drug Use: No Drugs: None Hx Prescription Drug Abuse: No Do you have pets?: No Have you had any respiratory illnesses as a child?: Yes Have you been exposed to any sick contacts recently?: No Have you had any recent respiratory illnesses?: No Have you travelled outside of [place] in the past 12 months?: No Family History Family History: CAD Parental Family History Reviewed: Yes Children Family History Reviewed: Yes Sibling(s) Family History Reviewed.: Yes Medication/Allergy Home Medications: Ascorbate Calcium [Vitamin C] 500 mg PO DAILY 07/23/19 Aspirin [Ecotrin 81 mg EC Tablet] 81 mg PO DAILY 07/23/19 Atorvastatin Calcium [Lipitor 20 mg Tablet] 20 mg PO DAILY 07/23/19 Clopidogrel Bisulfate [Plavix 75 mg Tablet] 75 mg PO DAILY 07/23/19 Doxycycline Hyclate [Vibramycin 100 mg Tablet] 100 mg PO BID 07/23/19 Ergocalciferol (Vitamin D2) [Drisdol 50,000 Unit (1.25MG) Capsule] 50,000 unit PO FR@1000 07/23/19 Iron 130 mg PO DAILY 07/23/19 Isosorbide Mononitrate [Imdur 30 mg Tablet.er] 30 mg PO DAILY 07/23/19 Lisinopril [Zestril] 5 mg PO DAILY 07/23/19 Ranitidine HCl [Zantac] 150 mg PO DAILY 07/23/19 Sevelamer Carbonate [Renvela] 1,600 mg PO TID 07/23/19 Tamsulosin HCl [Flomax] 0.4 mg PO DAILY 07/23/19 Vitamin B Complex/Folic Acid [B-Complex Tablet] 0.4 mg PO DAILY 07/23/19 Allergies/Adverse Reactions: No Known Allergies Allergy (Verified 09/07/18 16:44) Review of Systems All systems: reviewed and no additional remarkable complaints except as stated Physical Exam Vital Signs: Temp Pulse Resp BP Pulse Ox 97.7 F 78 20 133/77 H 99 07/27/19 03:39 07/27/19 07:00 07/27/19 03:39 07/27/19 03:39 07/27/19 03:39 Intake & Output 07/26/19 07/27/19 07/28/19 06:59 06:59 06:59 Intake Total 770 930 Output Total 2000 Balance -1230 930 Weight 60.5 kg 59.6 kg General appearance: PRESENT: no acute distress, cooperative, disheveled, thin, well-developed, well-nourished Head exam: PRESENT: atraumatic, normocephalic Eye exam: PRESENT: conjunctiva pale, EOMI. ABSENT: nystagmus Mouth exam: PRESENT: dry mucosa, neck supple, tongue midline Neck exam: ABSENT: carotid bruit, full ROM, JVD, lymphadenopathy, meningismus, tenderness, thyromegaly, tracheal deviation, tracheostomy, other Respiratory exam: PRESENT: decreased breath sounds, prolonged expiratory phas, rhonchi, unlabored. ABSENT: retraction, stridor, tachypnea Cardiovascular exam: PRESENT: RRR, +S1, +S2 Pulses: PRESENT: normal radial pulses GI/Abdominal exam: PRESENT: soft. ABSENT: mass, tenderness Extremities exam: ABSENT: calf tenderness, clubbing, joint swelling, tenderness Musculoskeletal exam: PRESENT: deformity - Diffuse joint contractures. ABSENT: ambulatory Neurological exam: PRESENT: alert, awake Psychiatric exam: PRESENT: flat affect Focused psych exam: PRESENT: internal stimuli Skin exam: PRESENT: dry, warm Results Laboratory Results: 07/27/19 08:14 07/27/19 08:14 07/27/19 07/27/19 08:14 08:14 WBC 5.7 RBC 3.86 L Hgb 11.8 L Hct 35.9 L MCV 93 MCH 30.4 MCHC 32.8 RDW 15.5 H Plt Count 174 Sodium 140.4 Potassium 4.6 Chloride 101 Carbon Dioxide 30 Anion Gap 9 BUN 35 H Creatinine 4.35 H Est GFR ( Amer) 17 L Glucose 86 Calcium 8.3 L 07/23/19 12:15 Troponin I 0.347 Impressions: Chest X-Ray 07/23/19 12:00 IMPRESSION: Stable AP portable examination with left greater than right pleural effusions and/or pleural thickening. No focal airspace opacity. Cardiomegaly with left chest large bore multi lumen catheter. Chest CT 07/25/19 00:00 IMPRESSION: Small to moderate bilateral pleural effusions right greater than left. There is associated basilar airspace disease either atelectasis or pneumonia. Assessment & Plan - Diagnosis (1) Sleep apnea syndrome Qualifiers: Sleep apnea type: unspecified type Qualified Code(s): G47.30 - Sleep apnea, unspecified Is this a current diagnosis for this admission?: Yes (2) End stage renal disease Is this a current diagnosis for this admission?: Yes Plan: Nephrology (4) Pneumonia Qualifiers: Pneumonia type: due to unspecified organism Laterality: unspecified laterality Lung location: unspecified part of lung Qualified Code(s): J18.9 - Pneumonia, unspecified organism Is this a current diagnosis for this admission?: Yes Plan: Afebrile no leukocytosis with left shift with sputum chest exam may be result of volume overload as opposed to pneumonia (5) Pleural effusion on left Is this a current diagnosis for this admission?: Yes Plan: Not reported as large (6) Pleural effusion on right Is this a current diagnosis for this admission?: Yes Plan: Consider thoracentesis if he becomes more symptomatic
[2019-07-29 11:35] LABS: PARTIAL THROMBOPLASTIN TIME 30.9 SEC (23.5-35.8)
[2019-07-29] MEDS: CLOPIDOGREL BISULFATE 75 MG TABLET PO SCH (12:22)
[2019-07-29] MEDS: ISOSORBIDE MONONITRATE 30 MG TAB.ER.24H PO SCH (12:48)
[2019-07-29] MEDS: FERROUS SULFATE 325 MG TABLET PO SCH (12:48)
[2019-07-29] MEDS: BENZONATATE 100 MG CAPSULE PO SCH ×3 (12:49→17:05)
[2019-07-29] MEDS: GUAIFENESIN 600 MG TABLET.SA PO SCH ×2 (12:49→21:31)
[2019-07-29] MEDS: LISINOPRIL 5 MG TABLET PO SCH (12:49)
[2019-07-29] MEDS: FOLIC ACID/VITAMIN B COMP W-C CAPSULE PO SCH (12:51)
[2019-07-29] MEDS: FAMOTIDINE 20 MG TABLET PO SCH (12:51)
[2019-07-29] MEDS: ASCORBIC ACID 500 MG TABLET PO SCH (12:52)
[2019-07-29] MEDS: ASPIRIN 81 MG TABLET, ENT COATED PO SCH (12:52)
[2019-07-29] MEDS: TAMSULOSIN HCL 0.4 MG CAP.SR.24H PO SCH (12:53)
[2019-07-29] MEDS: CEFTRIAXONE 1 GM/D5W RTU 1 GM/50 ML RTUPB IV SCH (12:54)
[2019-07-29] MEDS: HEPARIN SOD (PORCINE) 5,000 UNIT/ML 1 ML VIAL SUBCUT SCH ×2 (12:55→21:31)
[2019-07-29] MEDS: ONDANSETRON HCL INJ/PF 4 MG/2 ML SDV IV PRN (14:29)
--- NOTE | 2019-07-29 18:51 | PDOC PROGRESS REPORT ---
Subjective Progress Note for:: 07/29/19 Subjective:: I am seeing the patient during dialysis this afternoon. Patient said is feeling fine and wanted to go home today after dialysis. He still has some cough. His breathing is better. He is currently tolerating dialysis without any problems. Reason For Visit: PNEUMONIA,ESRD ON HEMODIALYSIS,CHRONIC DIASTOLIC Physical Exam Vital Signs: Temp Pulse Resp BP Pulse Ox 98.0 F 90 16 168/85 H 96 07/29/19 07:39 07/29/19 07:39 07/29/19 07:39 07/29/19 07:39 07/29/19 07:39 Intake & Output 07/28/19 07/29/19 07/30/19 06:59 06:59 06:59 Intake Total 770 350 200 Output Total 3060 Balance -2290 350 200 Weight 57.1 kg 57.8 kg Vitals on dialysis: Blood pressure 157/92, heart rate of 82, blood flow of 350 mL/min and dialysate flow of 800 mL/min. Exam: General appearance: PRESENT: no acute distress, cooperative, well-developed, well-nourished Head exam: PRESENT: atraumatic, normocephalic Eye exam: PRESENT: conjunctiva pink, PERRLA. ABSENT: scleral icterus Neck exam: ABSENT: JVD Respiratory exam: PRESENT: Normal breath sounds. ABSENT: crackles, rales, rhonchi, unlabored, wheezes Cardiovascular exam: PRESENT: Regular rate rhythm -+S1, +S2. Grade 2/6 systolic murmur GI/Abdominal exam: PRESENT: normal bowel sounds, soft. ABSENT: guarding, mass, tenderness Extremities exam: ABSENT: No edema Neurological exam: PRESENT: alert, awake, oriented to person, place and time. Skin exam: PRESENT: dry, warm, Cardiovascular exam: PRESENT: +S1, +S2 GI/Abdominal exam: PRESENT: normal bowel sounds, soft. ABSENT: organomegaly, tenderness Results Laboratory Results: 07/29/19 06:06 07/29/19 06:06 07/29/19 07/29/19 06:06 06:06 WBC 5.7 RBC 4.16 L Hgb 12.7 L Hct 38.2 MCV 92 MCH 30.5 MCHC 33.3 RDW 15.4 H Plt Count 177 Seg Neutrophils % 32.3 L Sodium 140.0 Potassium 4.6 Chloride 101 Carbon Dioxide 26 Anion Gap 13 BUN 31 H Creatinine 4.25 H Est GFR ( Amer) 17 L Glucose 75 Calcium 8.9 07/23/19 13:03 Blood Blood Culture - Final NO GROWTH IN 5 DAYS 07/23/19 12:15 Blood Blood Culture - Final NO GROWTH IN 5 DAYS 07/23/19 12:15 Troponin I 0.347 Impressions: Chest CT 07/25/19 00:00 IMPRESSION: Small to moderate bilateral pleural effusions right greater than left. There is associated basilar airspace disease either atelectasis or pneumonia. Chest Ultrasound 07/28/19 00:00 IMPRESSION: Bilateral, right greater than left, pleural effusions. Chest X-Ray 07/28/19 00:00 IMPRESSION: Stable AP portable examination with left greater than right pleural effusions and/or pleural thickening and associated consolidation or atelectasis of the left lung base. Unchanged cardiomegaly status post median sternotomy with left chest large bore multi lumen vascular catheter. Assessment & Plan - Diagnosis (1) End stage renal disease Is this a current diagnosis for this admission?: Yes Plan: We will do dialysis today for 3 hours, using the patient's PermCath, with 2 potassium bath, blood flow rate of 350 mL per minute, dialysate flow rate of 800 mL per minute, ultrafiltration 1 to 1.5 L as tolerated, no heparin and no Procrit. Patient will be monitored throughout dialysis treatment. (2) Pneumonia Qualifiers: Pneumonia type: due to unspecified organism Laterality: unspecified laterality Lung location: unspecified part of lung Qualified Code(s): J18.9 - Pneumonia, unspecified organism Is this a current diagnosis for this admission?: Yes Plan: On antibiotics per Dr. Girard. (3) Chronic diastolic (congestive) heart failure Is this a current diagnosis for this admission?: Yes Plan: Compensated. 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 (5) Diabetes mellitus, type II Qualifiers: Diabetes mellitus assisted insulin use: with vermin exterminator use Diabetes mellitus complication status: with other specified complication Qualified Code(s): E11.69 - Type 2 diabetes mellitus with other specified complication; Z79.4 - [facility]PC (current) use of insulin; Z79.4 - moth exterminator (current) use of insulin; Z79.4 - [facility] (current) use of insulin; Z79.4 - [facility]PC (current) use of insulin Is this a current diagnosis for this admission?: Yes (6) ESBL (extended spectrum beta-lactamase) producing bacteria infection Is this a current diagnosis for this admission?: No Plan: Has history often needed isolation. (7) Hypertension Qualifiers: Hypertension type: essential hypertension Qualified Code(s): I10 - Essential (primary) hypertension Is this a current diagnosis for this admission?: Yes (8) VRE (vancomycin-resistant Enterococci) infection Is this a current diagnosis for this admission?: No Plan: Has history often needed isolation. - Notes Notes: From nephrology standpoint I think patient can be discharged home. Patient to continue chronic dialysis treatment as scheduled at [facility] once discharge. - Time Time with patient: 15-25 minutes
[2019-07-29] MEDS: ATORVASTATIN CALCIUM 20 MG TABLET PO SCH (21:31)
--- NOTE | 2019-07-29 22:50 | PDOC PROGRESS REPORT ---
Subjective Progress Note for:: 07/28/19 Subjective:: Congestive heart failure, abnormal troponin I. Patient however denied any chest pain. His main symptom was shortness of breath. Today he is complaining of some abdominal pain. Patient claims that he is getting antibiotics. He has also gotten some medicine. Telemetry strip shows no significant arrhythmias. Patient just had one troponin I drawn which was noted to be in the low suggestive range 2D echocardiogram performed today shows relatively well- preserved LVEF at 45 to 50%, moderate mitral regurgitation and possible apical hypokinesia. Patient has history of significant coronary artery disease, peripheral vascular disease, end-stage renal disease on dialysis. Patient also has and is basically bedbound. There has been no significant change in patient condition. Patient claims to be comfortable without any chest pain. He denied any significant shortness of breath. Reason For Visit: PNEUMONIA,ESRD ON HEMODIALYSIS,CHRONIC DIASTOLIC Physical Exam Vital Signs: Temp Pulse Resp BP Pulse Ox 97.3 F 85 16 149/79 H 100 07/28/19 20:37 07/28/19 20:37 07/28/19 20:37 07/28/19 20:37 07/28/19 20:37 Intake & Output 07/27/19 07/28/19 07/29/19 06:59 06:59 06:59 Intake Total 930 770 350 Output Total 3060 Balance 930 -2290 350 Weight 59.6 kg 57.1 kg Exam: GENERAL: well-nourished and in no acute distress. Alert and oriented x3 HEAD: Atraumatic, normocephalic. EYES: JORGE, sclera anicteric, conjunctiva are normal. ENT: Moist mucous membranes. No oral ulcerations or bleeding gums noted. No obvious ear, nose or throat abnormalities noted. NECK: supple without lymphadenopathy. Trachea is central. No cervical or axillary lymphadenopathy noted. Carotids are 2+, JVD WNL LUNGS: Breath sounds clear bilaterally. No wheezes rales or rhonchi noted. No significant dullness noted on percussion. CHEST: Palpation of the chest wall shows no significant chest wall tenderness. HEART: [place] INSURANCE CLAIMS ADJUSTER, No PSH, 1/6 MELBA aortic area, 1/6 [place] systolic murmur mitral area, no rubs, no gallops. ABDOMEN: Soft, no significant tenderness appreciated, normoactive bowel sounds. No guarding, no rebound. No rigidity noted . No masses appreciated. EXTREMITIES: Pedal pulses are 1-2+, no calf tenderness noted. No clubbing or cyanosis. negative pedal edema noted NEUROLOGICAL: Focused neurological exam showed marked muscular weakness and wasting. Normal speech. PSYCH: Normal mood, normal affect. Judgment and insight within normal limits. SKIN: No significant ecchymosis, skin is noted to be warm. MUSCULOSKELETAL EXAM: No significant acute joint swelling noted. Results Laboratory Results: 07/27/19 08:14 07/27/19 08:14 07/23/19 13:03 Blood Blood Culture - Final NO GROWTH IN 5 DAYS 07/23/19 12:15 Blood Blood Culture - Final NO GROWTH IN 5 DAYS 07/23/19 12:15 Troponin I 0.347 EKG Comments: Showed sinus rhythm. No significant arrhythmias noted Impressions: Chest CT 07/25/19 00:00 IMPRESSION: Small to moderate bilateral pleural effusions right greater than left. There is associated basilar airspace disease either atelectasis or pneumonia. Chest X-Ray 07/28/19 00:00 IMPRESSION: Stable AP portable examination with left greater than right pleural effusions and/or pleural thickening and associated consolidation or atelectasis of the left lung base. Unchanged cardiomegaly status post median sternotomy with left chest large bore multi lumen vascular catheter. Assessment & Plan - Diagnosis (1) Chronic diastolic (congestive) heart failure Is this a current diagnosis for this admission?: Yes (2) End stage renal disease Is this a current diagnosis for this admission?: Yes (3) Hypoxia Is this a current diagnosis for this admission?: Yes (4) Peripheral arterial disease Is this a current diagnosis for this admission?: Yes (5) Coronary artery disease Qualifiers: Coronary Disease-Associated Artery/Lesion type: unspecified vessel or lesion type [place] vs. transplanted heart: [place] heart Associated angina: angina presence unspecified Qualified Code(s): I25.10 - Atherosclerotic heart disease of [place] coronary artery without angina pectoris Is this a current diagnosis for this admission?: Yes (6) Diabetes mellitus, type II Qualifiers: Diabetes mellitus prison insulin use: with meterman use Diabetes mellitus complication status: with other specified complication Qualified Code(s): E11.69 - Type 2 diabetes mellitus with other specified complication; Z79.4 - oysterman (current) use of insulin; Z79.4 - [facility] (current) use of insulin; Z79.4 - oysterman (current) use of insulin; Z79.4 - [facility] (current) use of insulin Is this a current diagnosis for this admission?: Yes - Notes Notes: Chest x-ray ordered. This will be reviewed when performed. 2D echo results were reviewed with the patient. Continue with conservative management. - Time Time with patient: 15-25 minutes - More than 50% of the time spent coordinating care, discussing management plans with involved caregivers. Management plans discussed with involved personnels. Medical decision making was of moderate to high complexity, patient's has multiple comorbidities. Medications reviewed and adjusted accordingly: Yes
--- NOTE | 2019-07-29 22:55 | PDOC PROGRESS REPORT ---
Subjective Progress Note for:: 07/28/19 Subjective:: Congestive heart failure, abnormal troponin I. Patient however denied any chest pain. His main symptom was shortness of breath. Today he is complaining of some abdominal pain. Patient claims that he is getting antibiotics. He has also gotten some medicine. Telemetry strip shows no significant arrhythmias. Patient just had one troponin I drawn which was noted to be in the low suggestive range 2D echocardiogram performed today shows relatively well- preserved LVEF at 45 to 50%, moderate mitral regurgitation and possible apical hypokinesia. Patient has history of significant coronary artery disease, peripheral vascular disease, end-stage renal disease on dialysis. Patient also has and is basically bedbound. No significant change from yesterday. Chest x-ray shows left pleural effusion. Patient however remains comfortable. Reason For Visit: PNEUMONIA,ESRD ON HEMODIALYSIS,CHRONIC DIASTOLIC Physical Exam Vital Signs: Temp Pulse Resp BP Pulse Ox 98.0 F 81 16 125/65 99 07/29/19 18:28 07/29/19 18:28 07/29/19 18:28 07/29/19 18:28 07/29/19 18:28 Intake & Output 07/28/19 07/29/19 07/30/19 06:59 06:59 06:59 Intake Total 770 350 200 Output Total 3060 1300 Balance -2290 350 -1100 Weight 57.1 kg 57.8 kg Exam: Unchanged from yesterday. Results Laboratory Results: 07/29/19 06:06 07/29/19 06:06 07/29/19 07/29/19 06:06 06:06 WBC 5.7 RBC 4.16 L Hgb 12.7 L Hct 38.2 MCV 92 MCH 30.5 MCHC 33.3 RDW 15.4 H Plt Count 177 Seg Neutrophils % 32.3 L Sodium 140.0 Potassium 4.6 Chloride 101 Carbon Dioxide 26 Anion Gap 13 BUN 31 H Creatinine 4.25 H Est GFR ( Amer) 17 L Glucose 75 Calcium 8.9 07/23/19 12:15 Troponin I 0.347 EKG Comments: Sinus rhythm. No significant arrhythmias are noted Impressions: Chest CT 07/25/19 00:00 IMPRESSION: Small to moderate bilateral pleural effusions right greater than left. There is associated basilar airspace disease either atelectasis or pneumonia. Chest Ultrasound 07/28/19 00:00 IMPRESSION: Bilateral, right greater than left, pleural effusions. Chest X-Ray 07/28/19 00:00 IMPRESSION: Stable AP portable examination with left greater than right pleural effusions and/or pleural thickening and associated consolidation or atelectasis of the left lung base. Unchanged cardiomegaly status post median sternotomy with left chest large bore multi lumen vascular catheter. Assessment & Plan - Diagnosis (1) Chronic diastolic (congestive) heart failure Is this a current diagnosis for this admission?: Yes (2) End stage renal disease Is this a current diagnosis for this admission?: Yes (3) Hypoxia Is this a current diagnosis for this admission?: Yes (4) Peripheral arterial disease Is this a current diagnosis for this admission?: Yes (5) Coronary artery disease Qualifiers: Coronary Disease-Associated Artery/Lesion type: unspecified vessel or lesion type [place] vs. transplanted heart: [place] heart Associated angina: angina presence unspecified Qualified Code(s): I25.10 - Atherosclerotic heart disease of [place] coronary artery without angina pectoris Is this a current diagnosis for this admission?: Yes (6) Diabetes mellitus, type II Qualifiers: Diabetes mellitus assisted insulin use: with remote computer terminal operator use Diabetes mellitus complication status: with other specified complication Qualified Code(s): E11.69 - Type 2 diabetes mellitus with other specified complication; Z79.4 - long term care phlebotomist (current) use of insulin; Z79.4 - long term care phlebotomist (current) use of insulin; Z79.4 - residential (current) use of insulin; Z79.4 - long term care phlebotomist (current) use of insulin Is this a current diagnosis for this admission?: Yes - Notes Notes: 2D echo results reviewed. Continue with current management plans. Continue to remove fluid on dialysis. We will continue to follow patient. Currently seems stable from cardiac standpoint. - Time Time with patient: 15-25 minutes
[2019-07-30 04:51] LABS: ANION GAP 10 (5-19); BLOOD UREA NITROGEN 18 mg/dL (7-20); CALCIUM 8.6 mg/dL (8.4-10.2); CARBON DIOXIDE 28 mmol/L (22-30); CHLORIDE 102 mmol/L (98-107); GLUCOSE 71 mg/dL (75-110); POTASSIUM 4.1 mmol/L (3.6-5.0)
[2019-07-30] MEDS: SEVELAMER HCL 800 MG TABLET PO SCH ×3 (07:49→16:09)
[2019-07-30] MEDS: INSULIN LISPRO 100 UNIT/ML 3 ML VIAL SUBCUT SCH ×4 (08:25→21:51)
[2019-07-30] MEDS: ASPIRIN 81 MG TABLET, ENT COATED PO SCH (10:15)
[2019-07-30] MEDS: HEPARIN SOD (PORCINE) 5,000 UNIT/ML 1 ML VIAL SUBCUT SCH ×2 (10:15→21:50)
[2019-07-30] MEDS: FOLIC ACID/VITAMIN B COMP W-C CAPSULE PO SCH (10:15)
[2019-07-30] MEDS: FERROUS SULFATE 325 MG TABLET PO SCH (10:15)
[2019-07-30] MEDS: ISOSORBIDE MONONITRATE 30 MG TAB.ER.24H PO SCH (10:16)
[2019-07-30] MEDS: LISINOPRIL 5 MG TABLET PO SCH (10:16)
[2019-07-30] MEDS: GUAIFENESIN 600 MG TABLET.SA PO SCH ×2 (10:16→21:50)
[2019-07-30] MEDS: ASCORBIC ACID 500 MG TABLET PO SCH (10:16)
[2019-07-30] MEDS: CLOPIDOGREL BISULFATE 75 MG TABLET PO SCH (10:16)
[2019-07-30] MEDS: FAMOTIDINE 20 MG TABLET PO SCH (10:16)
[2019-07-30] MEDS: TAMSULOSIN HCL 0.4 MG CAP.SR.24H PO SCH (10:16)
[2019-07-30] MEDS: BENZONATATE 100 MG CAPSULE PO SCH ×3 (10:16→17:11)
[2019-07-30] MEDS: CEFTRIAXONE 1 GM/D5W RTU 1 GM/50 ML RTUPB IV SCH (10:23)
[2019-07-30] MEDS: ONDANSETRON HCL INJ/PF 4 MG/2 ML SDV IV PRN (10:28)
--- NOTE | 2019-07-30 18:07 | PDOC PROGRESS REPORT ---
Subjective Progress Note for:: 07/30/19 Subjective:: Patient seen by the bedside, he has end-stage renal disease on maintenance hemodialysis admitted for pneumonia management Reason For Visit: PNEUMONIA,ESRD ON HEMODIALYSIS,CHRONIC DIASTOLIC Physical Exam Vital Signs: Temp Pulse Resp BP Pulse Ox 97.9 F 70 18 131/65 H 100 07/30/19 15:36 07/30/19 15:36 07/30/19 15:36 07/30/19 15:36 07/30/19 15:36 Intake & Output 07/29/19 07/30/19 07/31/19 06:59 06:59 06:59 Intake Total 350 250 390 Output Total 1300 Balance 350 -1050 390 Weight 57.8 kg 56.8 kg General appearance: PRESENT: no acute distress Eye exam: PRESENT: PERRLA Respiratory exam: PRESENT: clear to auscultation jolie Cardiovascular exam: PRESENT: +S1, +S2 Murmur grade: 3 Results Laboratory Results: 07/29/19 06:06 07/30/19 04:22 07/30/19 04:22 Sodium 140.2 Potassium 4.1 Chloride 102 Carbon Dioxide 28 Anion Gap 10 BUN 18 Creatinine 3.04 H Est GFR ( Amer) 25 L Glucose 71 L Calcium 8.6 07/26/19 23:01 Sputum Gram Stain - Final 07/26/19 23:01 Sputum Sputum Culture - Final NORMAL ALEXEY 07/23/19 12:15 Troponin I 0.347 Impressions: Chest CT 07/25/19 00:00 IMPRESSION: Small to moderate bilateral pleural effusions right greater than left. There is associated basilar airspace disease either atelectasis or pn eumonia. Chest Ultrasound 07/28/19 00:00 IMPRESSION: Bilateral, right greater than left, pleural effusions. Chest X-Ray 07/28/19 00:00 IMPRESSION: Stable AP portable examination with left greater than right pleural effusions and/or pleural thickening and associated consolidation or atelectasis of the left lung base. Unchanged cardiomegaly status post median sternotomy with left chest large bore multi lumen vascular catheter. Assessment & Plan - Diagnosis (1) Pneumonia Qualifiers: Pneumonia type: due to unspecified organism Laterality: unspecified laterality Lung location: unspecified part of lung Qualified Code(s): J18.9 - Pneumonia, unspecified organism Is this a current diagnosis for this admission?: Yes (2) End stage renal disease Is this a current diagnosis for this admission?: Yes - Plan Summary Plan Summary: Continue treatment
[2019-07-30] MEDS: ATORVASTATIN CALCIUM 20 MG TABLET PO SCH (21:50)
[2019-07-31] MEDS: IPRATROPIUM/ALBUTEROL 0.5-2.5 MG/3 ML AMPUL NEB PRN (00:32)
[2019-07-31 05:28] LABS: ANION GAP 11 (5-19); BLOOD UREA NITROGEN 26 mg/dL (7-20); CARBON DIOXIDE 28 mmol/L (22-30); CHLORIDE 102 mmol/L (98-107); GLUCOSE 82 mg/dL (75-110)
[2019-07-31] MEDS: INSULIN LISPRO 100 UNIT/ML 3 ML VIAL SUBCUT SCH ×4 (08:14→22:49)
[2019-07-31] MEDS: SEVELAMER HCL 800 MG TABLET PO SCH ×3 (08:17→17:45)
[2019-07-31] MEDS: ASPIRIN 81 MG TABLET, ENT COATED PO SCH (10:03)
[2019-07-31] MEDS: HEPARIN SOD (PORCINE) 5,000 UNIT/ML 1 ML VIAL SUBCUT SCH (10:03)
[2019-07-31] MEDS: BENZONATATE 100 MG CAPSULE PO SCH ×3 (10:04→17:46)
[2019-07-31] MEDS: FERROUS SULFATE 325 MG TABLET PO SCH (10:04)
[2019-07-31] MEDS: CLOPIDOGREL BISULFATE 75 MG TABLET PO SCH (10:04)
[2019-07-31] MEDS: ISOSORBIDE MONONITRATE 30 MG TAB.ER.24H PO SCH (10:04)
[2019-07-31] MEDS: FOLIC ACID/VITAMIN B COMP W-C CAPSULE PO SCH (10:04)
[2019-07-31] MEDS: TAMSULOSIN HCL 0.4 MG CAP.SR.24H PO SCH (10:04)
[2019-07-31] MEDS: FAMOTIDINE 20 MG TABLET PO SCH (10:04)
[2019-07-31] MEDS: GUAIFENESIN 600 MG TABLET.SA PO SCH ×2 (10:04→22:48)
[2019-07-31] MEDS: LISINOPRIL 5 MG TABLET PO SCH (10:04)
[2019-07-31] MEDS: ASCORBIC ACID 500 MG TABLET PO SCH (10:04)
[2019-07-31] MEDS: CEFTRIAXONE 1 GM/D5W RTU 1 GM/50 ML RTUPB IV SCH (10:05)
[2019-07-31] MEDS: ONDANSETRON HCL INJ/PF 4 MG/2 ML SDV IV PRN (10:08)
--- NOTE | 2019-07-31 17:19 | PDOC PROGRESS REPORT ---
Subjective Progress Note for:: 07/31/19 Subjective:: Patient alert, no new complaints Reason For Visit: PNEUMONIA,ESRD ON HEMODIALYSIS,CHRONIC DIASTOLIC Physical Exam Vital Signs: Temp Pulse Resp BP Pulse Ox 97.9 F 79 16 134/66 H 100 07/31/19 15:37 07/31/19 15:37 07/31/19 12:00 07/31/19 15:37 07/31/19 15:37 Intake & Output 07/30/19 07/31/19 08/01/19 06:59 06:59 06:59 Intake Total 250 630 50 Output Total 1300 Balance -1050 630 50 Weight 56.8 kg 58 kg General appearance: PRESENT: no acute distress Eye exam: PRESENT: PERRLA Respiratory exam: PRESENT: clear to auscultation jolie Cardiovascular exam: PRESENT: +S1, +S2 Murmur grade: 3 Neurological exam: PRESENT: alert Results Laboratory Results: 07/29/19 06:06 07/31/19 04:47 07/31/19 04:47 Sodium 141.0 Potassium 4.0 Chloride 102 Carbon Dioxide 28 Anion Gap 11 BUN 26 H Creatinine 4.19 H Est GFR ( Amer) 17 L Glucose 82 Calcium 9.0 07/23/19 12:15 Troponin I 0.347 Impressions: Chest CT 07/25/19 00:00 IMPRESSION: Small to moderate bilateral pleural effusions right greater than left. There is associated basilar airspace disease either atelectasis or pneumonia. Chest Ultrasound 07/28/19 00:00 IMPRESSION: Bilateral, right greater than left, pleural effusions. Chest X-Ray 07/28/19 00:00 IMPRESSION: Stable AP portable examination with left greater than right pleural effusions and/or pleural thickening and associated consolidation or atelectasis of the left lung base. Unchanged cardiomegaly status post median sternotomy with left chest large bore multi lumen vascular catheter. Assessment & Plan - Diagnosis (1) Pneumonia Qualifiers: Pneumonia type: due to unspecified organism Laterality: unspecified laterality Lung location: unspecified part of lung Qualified Code(s): J18.9 - Pneumonia, unspecified organism Is this a current diagnosis for this admission?: Yes Plan: Continue treatment (2) End stage renal disease Is this a current diagnosis for this admission?: Yes
[2019-07-31] MEDS: ATORVASTATIN CALCIUM 20 MG TABLET PO SCH (22:48)
[2019-08-01] MEDS ORDERED: HEPARIN SOD (PORCINE) 1,000 UNIT/ML 10 ML VIAL IV PRN (05:00)
[2019-08-01] MEDS ORDERED: NORMAL SALINE 1000 ML 1,000 ML IV PRN (05:00)
[2019-08-01 05:32] LABS: ABSOLUTE BASOPHILS # (AUTO) 0.1 10^3/uL (0.0-0.2); ABSOLUTE EOSINOPHILS # (AUTO) 0.5 10^3/uL (0.0-0.6); ABSOLUTE LYMPHOCYTES (AUTO) 2.7 10^3/uL (0.5-4.7); ABSOLUTE MONOCYTES (AUTO) 0.6 10^3/uL (0.1-1.4); ABSOLUTE NEUT (AUTO) 2.1 10^3/uL (1.7-8.2); BASOPHILS % (AUTO) 1.1 % (0-2); EOSINOPHILS % (AUTO) 8.5 % (0-6); HEMATOCRIT 36.3 % (37.9-51.0); HEMOGLOBIN 12.2 g/dL (13.5-17.0); LYMPHOCYTES % (AUTO) 45.4 % (13-45); MEAN CORPUSCULAR HEMOGLOBIN 30.9 pg (27.0-33.4); MEAN CORPUSCULAR HGB CONC 33.6 g/dL (32.0-36.0); MEAN CORPUSCULAR VOLUME 92 fl (80-97); MONOCYTES % (AUTO) 10.2 % (3-13); PLATELET COUNT 174 10^3/uL (150-450); RED BLOOD COUNT 3.95 10^6/uL (4.35-5.55); RED CELL DISTRIBUTION WIDTH 15.4 % (11.5-14.0); SEGMENTED NEUTROPHILS % (AUTO) 34.8 % (42-78); TOTAL CELLS COUNTED % (AUTO) 100 %
[2019-08-01 05:58] LABS: ANION GAP 13 (5-19); BLOOD UREA NITROGEN 33 mg/dL (7-20); CARBON DIOXIDE 25 mmol/L (22-30); CHLORIDE 103 mmol/L (98-107); GLUCOSE 99 mg/dL (75-110); POTASSIUM 4.3 mmol/L (3.6-5.0)
--- NOTE | 2019-08-01 10:43 | PDOC PROGRESS REPORT ---
Subjective Progress Note for:: 08/01/19 Subjective:: Patient is currently doing much better Patient's cough is also improving Patient's denied any chest pain to than any shortness of the breath Reason For Visit: PNEUMONIA,ESRD ON HEMODIALYSIS,CHRONIC DIASTOLIC Physical Exam Vital Signs: Temp Pulse Resp BP Pulse Ox 97.8 F 65 20 128/62 H 100 08/01/19 04:06 08/01/19 07:00 08/01/19 04:06 08/01/19 04:06 08/01/19 04:06 Intake & Output 07/31/19 08/01/19 08/02/19 06:59 06:59 06:59 Intake Total 630 50 Output Total 1 Balance 630 49 Weight 58 kg 57 kg General appearance: PRESENT: no acute distress, well-developed, well-nourished Head exam: PRESENT: atraumatic, normocephalic Eye exam: PRESENT: conjunctiva pink, EOMI, PERRLA. ABSENT: scleral icterus Ear exam: PRESENT: normal external ear exam Mouth exam: PRESENT: moist, tongue midline Neck exam: PRESENT: full ROM. ABSENT: carotid bruit, JVD, lymphadenopathy, thyromegaly Respiratory exam: PRESENT: clear to auscultation jolie Cardiovascular exam: PRESENT: RRR. ABSENT: diastolic murmur, rubs, systolic murmur Murmur grade: 3 Vascular exam: PRESENT: normal capillary refill GI/Abdominal exam: PRESENT: normal bowel sounds, soft. ABSENT: distended, guard ing, mass, organolmegaly, rebound, tenderness Rectal exam: PRESENT: deferred Neurological exam: PRESENT: alert, awake, oriented to person, oriented to place, oriented to time, oriented to situation. ABSENT: motor sensory deficit Psychiatric exam: PRESENT: appropriate affect, normal mood. ABSENT: homicidal ideation, suicidal ideation Skin exam: PRESENT: dry, intact, warm. ABSENT: cyanosis, rash Results Laboratory Results: 08/01/19 05:11 08/01/19 05:11 08/01/19 08/01/19 05:11 05:11 WBC 6.0 RBC 3.95 L Hgb 12.2 L Hct 36.3 L MCV 92 MCH 30.9 MCHC 33.6 RDW 15.4 H Plt Count 174 Seg Neutrophils % 34.8 L Sodium 140.7 Potassium 4.3 Chloride 103 Carbon Dioxide 25 Anion Gap 13 BUN 33 H Creatinine 5.32 H Est GFR ( Amer) 13 L Glucose 99 Calcium 9.0 07/23/19 12:15 Troponin I 0.347 Impressions: Chest CT 07/25/19 00:00 IMPRESSION: Small to moderate bilateral pleural effusions right greater than left. There is associated basilar airspace disease either atelectasis or pneumonia. Chest Ultrasound 07/28/19 00:00 IMPRESSION: Bilateral, right greater than left, pleural effusions. Chest X-Ray 07/28/19 00:00 IMPRESSION: Stable AP portable examination with left greater than right pleural effusions and/or pleural thickening and associated consolidation or atelectasis of the left lung base. Unchanged cardiomegaly status post median sternotomy with left chest large bore multi lumen vascular catheter. Assessment & Plan - Diagnosis (1) Pneumonia Qualifiers: Pneumonia type: due to unspecified organism Laterality: unspecified laterality Lung location: unspecified part of lung Qualified Code(s): J18.9 - Pneumonia, unspecified organism Is this a current diagnosis for this admission?: Yes Plan: Continues to antibiotics (2) Chronic diastolic (congestive) heart failure Is this a current diagnosis for this admission?: Yes Plan: Will follow with the cardiology will wait for the echocardiogram reports (3) End stage renal disease Is this a current diagnosis for this admission?: Yes Plan: Consult to Dr. Tavares (4) Hypoxia Is this a current diagnosis for this admission?: Yes Plan: We redo the chest x-ray after the dialysis may be need a CT scan of the chest if it is not improving (5) Anemia in chronic kidney disease (CKD) Qualifiers: Chronic kidney disease stage: stage 5, not on chronic dialysis Qualified Code(s): N18.5 - Chronic kidney disease, stage 5; D63.1 - Anemia in chronic kidney disease; D63.1 - Anemia in chronic kidney disease Is this a current diagnosis for this admission?: Yes (6) Axonal GBS (Guillain-Dushore syndrome) Is this a current diagnosis for this admission?: Yes (7) Cerebrovascular disease Is this a current diagnosis for this admission?: Yes (8) Diabetes mellitus, type II Qualifiers: Diabetes mellitus intermodal customer service insulin use: with longterm use Diabetes mellitus complication status: with other specified complication Qualified Code(s): E11.69 - Type 2 diabetes mellitus with other specified complication; Z79.4 - senior care (current) use of insulin; Z79.4 - senior care (current) use of insulin; Z79.4 - senior care (current) use of insulin; Z79.4 - ad terminal makeup operator (current) use of insulin Is this a current diagnosis for this admission?: Yes (9) History of kidney transplant Is this a current diagnosis for this admission?: Yes (10) Peripheral arterial disease Is this a current diagnosis for this admission?: Yes (11) Pleural effusion on left Is this a current diagnosis for this admission?: Yes (12) Pleural effusion on right Is this a current diagnosis for this admission?: Yes Plan: Patient is currently improving so we will get the chest x-ray before the plan for thoracocentesis tomorrow patient is currently hold the Plavix - Time Time Spent with patient: 15-24 minutes Medications reviewed and adjusted accordingly: Yes Anticipated discharge: Home with Homehealth Within: Other - Plan Summary Plan Summary: We will get the thoracocentesis scheduled tomorrow but will get the chest x-ray before the procedures to reevaluate the patient's pleural effusion if is getting better there is no need for thoracocentesis
--- NOTE | 2019-08-01 10:53 | PDOC PROGRESS REPORT ---
Subjective Progress Note for:: 08/01/19 Subjective:: Seen the patient during dialysis this morning. He tells me that he is feeling better and breathing better. He said he is coughing very minimally. He is on oxygen by nasal cannula with only 1 L. He is tolerating dialysis without any problem at this time. Reason For Visit: PNEUMONIA,ESRD ON HEMODIALYSIS,CHRONIC DIASTOLIC Physical Exam Vital Signs: Temp Pulse Resp BP Pulse Ox 97.8 F 65 20 128/62 H 100 08/01/19 04:06 08/01/19 07:00 08/01/19 04:06 08/01/19 04:06 08/01/19 04:06 Intake & Output 07/31/19 08/01/19 08/02/19 06:59 06:59 06:59 Intake Total 630 50 Output Total 1 Balance 630 49 Weight 58 kg 57 kg Vitals during dialysis: Blood pressure 128/53, heart rate of 59, blood flow rate of 350 mL/min and dialysate flow rate of 800 ml/min. Exam: General appearance: PRESENT: no acute distress, cooperative, well-developed, well-nourished Head exam: PRESENT: atraumatic, normocephalic Eye exam: PRESENT: conjunctiva slightly pale, PERRLA. ABSENT: scleral icterus Neck exam: ABSENT: JVD Respiratory exam: PRESENT: Diminished breath sounds. ABSENT: crackles, rales, rhonchi, unlabored, wheezes Cardiovascular exam: PRESENT: Irregular rate rhythm -+S1, +S2. ABSENT: diastolic murmur, systolic murmur GI/Abdominal exam: PRESENT: normal bowel sounds, soft. ABSENT: guarding, mass, tenderness Extremities exam: ABSENT: No edema Neurological exam: PRESENT: alert, awake, oriented to person, place and time. Skin exam: PRESENT: dry, warm, Cardiovascular exam: PRESENT: +S1, +S2 GI/Abdominal exam: PRESENT: normal bowel sounds, soft. ABSENT: organomegaly, tenderness Results Laboratory Results: 08/01/19 05:11 08/01/19 05:11 08/01/19 08/01/19 05:11 05:11 WBC 6.0 RBC 3.95 L Hgb 12.2 L Hct 36.3 L MCV 92 MCH 30.9 MCHC 33.6 RDW 15.4 H Plt Count 174 Seg Neutrophils % 34.8 L Sodium 140.7 Potassium 4.3 Chloride 103 Carbon Dioxide 25 Anion Gap 13 BUN 33 H Creatinine 5.32 H Est GFR ( Amer) 13 L Glucose 99 Calcium 9.0 07/23/19 12:15 Troponin I 0.347 Impressions: Chest CT 07/25/19 00:00 IMPRESSION: Small to moderate bilateral pleural effusions right greater than left. There is associated basilar airspace disease either atelectasis or pneumonia. Chest Ultrasound 07/28/19 00:00 IMPRESSION: Bilateral, right greater than left, pleural effusions. Chest X-Ray 07/28/19 00:00 IMPRESSION: Stable AP portable examination with left greater than right pleural effusions and/or pleural thickening and associated consolidation or atelectasis of the left lung base. Unchanged cardiomegaly status post median sternotomy with left chest large bore multi lumen vascular catheter. Assessment & Plan - Diagnosis (1) End stage renal disease Is this a current diagnosis for this admission?: Yes Plan: We will do dialysis today for 3 hours, using the patient's PermCath, with 2 potassium bath, blood flow rate of 350 mL per minute, dialysate flow rate of 800 mL per minute, ultrafiltration 0.5 to 1 L as tolerated, no heparin and no Procrit. Dialysis prescription discussed with our nurse. Patient will be monitored throughout dialysis treatment. (2) Pneumonia Qualifiers: Pneumonia type: due to unspecified organism Laterality: unspecified laterality Lung location: unspecified part of lung Qualified Code(s): J18.9 - Pneumonia, unspecified organism Is this a current diagnosis for this admission?: Yes Plan: On antibiotics per Dr. Girard. (3) Chronic diastolic (congestive) heart failure Is this a current diagnosis for this admission?: Yes Plan: Compensated. (4) Axonal GBS (Guillain-Darragh syndrome) Is this a current diagnosis for this admission?: Yes Plan: Stable. (5) Diabetes mellitus, type II Qualifiers: Diabetes mellitus custodial insulin use: with custodial use Diabetes mellitus complication status: with other specified complication Qualified Code(s): E11.69 - Type 2 diabetes mellitus with other specified complication; Z79.4 - correction (current) use of insulin; Z79.4 - correction (current) use of insulin; Z79.4 - terminal block assembler (current) use of insulin; Z79.4 - terminal block assembler (current) use of insulin Is this a current diagnosis for this admission?: Yes (6) ESBL (extended spectrum beta-lactamase) producing bacteria infection Is this a current diagnosis for this admission?: No Plan: Has history of, needed isolation. (7) Hypertension Qualifiers: Hypertension type: essential hypertension Qualified Code(s): I10 - Essential (primary) hypertension Is this a current diagnosis for this admission?: Yes (8) VRE (vancomycin-resistant Enterococci) infection Is this a current diagnosis for this admission?: No Plan: Has history oft, needed isolation. (9) Pleural effusion Is this a current diagnosis for this admission?: Yes Plan: Bilateral. Repeat chest x-ray ordered today. - Notes Notes: From nephrology standpoint I think patient can be discharged home . Patient to resume his routine outpatient scheduled maintenance hemodialysis at [facility] upon discharge. - Time Time with patient: 15-25 minutes
[2019-08-01] MEDS: INSULIN LISPRO 100 UNIT/ML 3 ML VIAL SUBCUT SCH ×4 (14:38→21:34)
[2019-08-01] MEDS: SEVELAMER HCL 800 MG TABLET PO SCH ×3 (14:39→18:09)
[2019-08-01] MEDS: ASCORBIC ACID 500 MG TABLET PO SCH (14:48)
[2019-08-01] MEDS: ISOSORBIDE MONONITRATE 30 MG TAB.ER.24H PO SCH (14:49)
[2019-08-01] MEDS: TAMSULOSIN HCL 0.4 MG CAP.SR.24H PO SCH (14:49)
[2019-08-01] MEDS: FERROUS SULFATE 325 MG TABLET PO SCH (14:49)
[2019-08-01] MEDS: GUAIFENESIN 600 MG TABLET.SA PO SCH ×2 (14:50→21:36)
[2019-08-01] MEDS: FAMOTIDINE 20 MG TABLET PO SCH (14:51)
[2019-08-01] MEDS: FOLIC ACID/VITAMIN B COMP W-C CAPSULE PO SCH (14:51)
[2019-08-01] MEDS: BENZONATATE 100 MG CAPSULE PO SCH ×3 (14:52→18:09)
[2019-08-01] MEDS: LISINOPRIL 5 MG TABLET PO SCH (14:52)
[2019-08-01] MEDS: CEFTRIAXONE 1 GM/D5W RTU 1 GM/50 ML RTUPB IV SCH (14:56)
[2019-08-01] MEDS: ONDANSETRON HCL INJ/PF 4 MG/2 ML SDV IV PRN (15:00)
--- NOTE | 2019-08-01 15:17 | RADIOLOGY REPORT (SQ) ---
EXAM DESCRIPTION: CHEST SINGLE VIEW COMPLETED DATE/TIME: 08/01/2019 3:04 pm REASON FOR STUDY: plural effusion COMPARISON: 07/28/2019. EXAM PARAMETERS: NUMBER OF VIEWS: One view. TECHNIQUE: Single frontal radiographic view of the chest acquired. RADIATION DOSE: NA LIMITATIONS: None. FINDINGS: LUNGS AND PLEURA: Left lower lobe airspace disease with moderate left pleural effusion, un changed. Minimal blunting of the right costophrenic angle. MEDIASTINUM AND HILAR STRUCTURES: No masses. Contour normal. HEART AND VASCULAR STRUCTURES: Heart normal in size. Normal vasculature. BONES: No acute findings. HARDWARE: Sternotomy wires and coronary bypass markers. Clips and coronary artery stents. Multi lum en central line. OTHER: No other significant finding. IMPRESSION: LEFT LOWER LOBE AIRSPACE DISEASE WITH MODERATE LEFT PLEURAL EFFUSION, RELATIVELY UNCHANG ED FROM THE PRIOR STUDY. TECHNICAL DOCUMENTATION: JOB ID: [id number] [employer]- All Rights Reserved Reading location - IP/workstation name: LD
--- NOTE | 2019-08-01 19:18 | PDOC PROGRESS REPORT ---
Subjective Progress Note for:: 08/01/19 Subjective:: Congestive heart failure, abnormal troponin I. Patient however denied any chest pain. His main symptom was shortness of breath. Today he is complaining of some abdominal pain. Patient claims that he is getting antibiotics. He has also gotten some medicine. Telemetry strip shows no significant arrhythmias. Patient just had one troponin I drawn which was noted to be in the low suggestive range 2D echocardiogram performed today shows relatively well- preserved LVEF at 45 to 50%, moderate mitral regurgitation and possible apical hypokinesia. Patient has history of significant coronary artery disease, peripheral vascular disease, end-stage renal disease on dialysis. Patient also has and is basically bedbound. Patient seen this evening. Still having some cough but generally improved. Chest x-ray shows left-sided pleural effusion with some underlying airspace disease. Patient claims to be bringing up scant yellow sputum. Patient on antibiotic. Generally patient has no specific complaints except for cough but overall better. Reason For Visit: PNEUMONIA,ESRD ON HEMODIALYSIS,CHRONIC DIASTOLIC Physical Exam Vital Signs: Temp Pulse Resp BP Pulse Ox 97.9 F 72 16 137/88 H 95 08/01/19 07:58 08/01/19 14:10 08/01/19 14:10 08/01/19 07:58 08/01/19 14:10 Intake & Output 07/31/19 08/01/19 08/02/19 06:59 06:59 06:59 Intake Total 630 50 Output Total 1 Balance 630 49 Weight 58 kg 57 kg Exam: Unchanged from before Results Laboratory Results: 08/01/19 05:11 08/01/19 05:11 08/01/19 08/01/19 05:11 05:11 WBC 6.0 RBC 3.95 L Hgb 12.2 L Hct 36.3 L MCV 92 MCH 30.9 MCHC 33.6 RDW 15.4 H Plt Count 174 Seg Neutrophils % 34.8 L Sodium 140.7 Potassium 4.3 Chloride 103 Carbon Dioxide 25 Anion Gap 13 BUN 33 H Creatinine 5.32 H Est GFR ( Amer) 13 L Glucose 99 Calcium 9.0 07/23/19 12:15 Troponin I 0.347 Impressions: Chest CT 07/25/19 00:00 IMPRESSION: Small to moderate bilateral pleural effusions right greater than left. There is associated basilar airspace disease either atelectasis or pneumonia. Chest Ultrasound 07/28/19 00:00 IMPRESSION: Bilateral, right greater than left, pleural effusions. Chest X-Ray 08/01/19 00:00 IMPRESSION: LEFT LOWER LOBE AIRSPACE DISEASE WITH MODERATE LEFT PLEURAL EFFUSION, RELATIVELY UNCHANGED FROM THE PRIOR STUDY. Assessment & Plan - Diagnosis (1) Chronic diastolic (congestive) heart failure Is this a current diagnosis for this admission?: Yes (2) End stage renal disease Is this a current diagnosis for this admission?: Yes (3) Hypoxia Is this a current diagnosis for this admission?: Yes (4) Peripheral arterial disease Is this a current diagnosis for this admission?: Yes (5) Coronary artery disease Qualifiers: Coronary Disease-Associated Artery/Lesion type: unspecified vessel or lesion type [place] vs. transplanted heart: [place] heart Associated angina: angina presence unspecified Qualified Code(s): I25.10 - Atherosclerotic heart disease of [place] coronary artery without angina pectoris Is this a current diagnosis for this admission?: Yes (6) Diabetes mellitus, type II Qualifiers: Diabetes mellitus nurse informatics educator insulin use: with nurse informatics educator use Diabetes mellitus complication status: with other specified complication Qualified Code(s): E11.69 - Type 2 diabetes mellitus with other specified complication; Z79.4 - supervisor phosphatic fertilizer (current) use of insulin; Z79.4 - supervisor phosphatic fertilizer (current) use of insulin; Z79.4 - supervisor phosphatic fertilizer (current) use of insulin; Z79.4 - supervisor phosphatic fertilizer (current) use of insulin Is this a current diagnosis for this admission?: Yes - Notes Notes: Generally overall improvement. Chest x-ray reviewed. Continue current management plans. If patient develops fever or significant shortness of breath, will then consider thoracentesis. Patient generally improving however. - Time Time with patient: 15-25 minutes Medications reviewed and adjusted accordingly: Yes
--- NOTE | 2019-08-01 19:21 | PDOC PROGRESS REPORT ---
Subjective Progress Note for:: 07/29/19 Subjective:: Congestive heart failure, abnormal troponin I. Patient however denied any chest pain. His main symptom was shortness of breath. Today he is complaining of some abdominal pain. Patient claims that he is getting antibiotics. He has also gotten some medicine. Telemetry strip shows no significant arrhythmias. Patient just had one troponin I drawn which was noted to be in the low suggestive range 2D echocardiogram performed today shows relatively well- preserved LVEF at 45 to 50%, moderate mitral regurgitation and possible apical hypokinesia. Patient has history of significant coronary artery disease, peripheral vascular disease, end-stage renal disease on dialysis. Patient also has and is basically bedbound. Reason For Visit: PNEUMONIA,ESRD ON HEMODIALYSIS,CHRONIC DIASTOLIC Physical Exam Vital Signs: Temp Pulse Resp BP Pulse Ox 98.0 F 81 16 125/65 99 07/29/19 18:28 07/29/19 18:28 07/29/19 18:28 07/29/19 18:28 07/29/19 18:28 Intake & Output 07/28/19 07/29/19 07/30/19 06:59 06:59 06:59 Intake Total 770 350 200 Output Total 3060 1300 Balance -2290 350 -1100 Weight 57.1 kg 57.8 kg Exam: GENERAL: well-nourished and in no acute distress. Alert and oriented x3 HEAD: Atraumatic, normocephalic. EYES: JORGE, sclera anicteric, conjunctiva are normal. ENT: Moist mucous membranes. No oral ulcerations or bleeding gums noted. No obvious ear, nose or throat abnormalities noted. NECK: supple without lymphadenopathy. Trachea is central. No cervical or axillary lymphadenopathy noted. Carotids are 2+, JVD WNL LUNGS: Dullness left side chest with diminished breath sounds left side. CHEST: Palpation of the chest wall shows no significant chest wall tenderness. 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 ABDOMEN: Soft, no significant tenderness appreciated, normoactive bowel sounds. No guarding, no rebound. No rigidity noted . No masses appreciated. EXTREMITIES: Pedal pulses are 1-2+, no calf tenderness noted. No clubbing or cyanosis. negative pedal edema noted NEUROLOGICAL: Focused neurological exam showed normal speech and cranial nerves. Patient has significant paraplegia. He also has weakness both upper extrem ities with some muscle wasting. PSYCH: Normal mood, normal affect. Judgment and insight within normal limits. SKIN: No significant ecchymosis, skin is noted to be warm. MUSCULOSKELETAL EXAM: No significant acute joint swelling noted. Results Laboratory Results: 07/29/19 06:06 07/29/19 06:06 07/29/19 07/29/19 06:06 06:06 WBC 5.7 RBC 4.16 L Hgb 12.7 L Hct 38.2 MCV 92 MCH 30.5 MCHC 33.3 RDW 15.4 H Plt Count 177 Seg Neutrophils % 32.3 L Sodium 140.0 Potassium 4.6 Chloride 101 Carbon Dioxide 26 Anion Gap 13 BUN 31 H Creatinine 4.25 H Est GFR ( Amer) 17 L Glucose 75 Calcium 8.9 07/23/19 12:15 Troponin I 0.347 EKG Comments: Shows sinus rhythm without any sustained tachycardia or bradycardia. Impressions: Chest CT 07/25/19 00:00 IMPRESSION: Small to moderate bilateral pleural effusions right greater than left. There is associated basilar airspace disease either atelectasis or pneumonia. Chest Ultrasound 07/28/19 00:00 IMPRESSION: Bilateral, right greater than left, pleural effusions. Chest X-Ray 07/28/19 00:00 IMPRESSION: Stable AP portable examination with left greater than right pleural effusions and/or pleural thickening and associated consolidation or atelectasis of the left lung base. Unchanged cardiomegaly status post median sternotomy with left chest large bore multi lumen vascular catheter. Assessment & Plan - Diagnosis (1) Chronic diastolic (congestive) heart failure Is this a current diagnosis for this admission?: Yes (2) End stage renal disease Is this a current diagnosis for this admission?: Yes (3) Hypoxia Is this a current diagnosis for this admission?: Yes (4) Peripheral arterial disease Is this a current diagnosis for this admission?: Yes (5) Coronary artery disease Qualifiers: Coronary Disease-Associated Artery/Lesion type: unspecified vessel or lesion type [place] vs. transplanted heart: [place] heart Associated angina: angina presence unspecified Qualified Code(s): I25.10 - Atherosclerotic heart disease of [place] coronary artery without angina pectoris Is this a current diagnosis for this admission?: Yes (6) Diabetes mellitus, type II Qualifiers: Diabetes mellitus residential insulin use: with long term care social worker use Diabetes mellitus complication status: with other specified complication Qualified Code(s): E11.69 - Type 2 diabetes mellitus with other specified complication; Z79.4 - terminal block assembler (current) use of insulin; Z79.4 - skilled nursing (current) use of insulin; Z79.4 - terminal block assembler (current) use of insulin; Z79.4 - skilled nursing (current) use of insulin Is this a current diagnosis for this admission?: Yes - Notes Notes: Patient currently not experiencing much symptoms. He is noted to to be able to lay flat without any significant problems. Patient does have bilateral pleural effusion left more than right. However not having any symptoms related to it. There may be some underlying pneumonia for which she is getting antibiotics. Patient has been evaluated by film composer. Continue dialysis therapy. Cardiac catheterization or other cardiac evaluation not planned as patient is not experiencing any chest pain. - Time Time with patient: 15-25 minutes Medications reviewed and adjusted accordingly: Yes
[2019-08-01] MEDS: ATORVASTATIN CALCIUM 20 MG TABLET PO SCH (21:36)
[2019-08-02] MEDS: INSULIN LISPRO 100 UNIT/ML 3 ML VIAL SUBCUT SCH ×4 (08:43→21:41)
[2019-08-02] MEDS: SEVELAMER HCL 800 MG TABLET PO SCH ×3 (08:53→17:22)
[2019-08-02] MEDS: LISINOPRIL 5 MG TABLET PO SCH (09:38)
[2019-08-02] MEDS: FOLIC ACID/VITAMIN B COMP W-C CAPSULE PO SCH (09:38)
[2019-08-02] MEDS: BENZONATATE 100 MG CAPSULE PO SCH ×3 (09:38→17:22)
[2019-08-02] MEDS: ASCORBIC ACID 500 MG TABLET PO SCH (09:38)
[2019-08-02] MEDS: GUAIFENESIN 600 MG TABLET.SA PO SCH ×2 (09:39→21:42)
[2019-08-02] MEDS: ISOSORBIDE MONONITRATE 30 MG TAB.ER.24H PO SCH (09:39)
[2019-08-02] MEDS: FERROUS SULFATE 325 MG TABLET PO SCH (09:39)
[2019-08-02] MEDS: FAMOTIDINE 20 MG TABLET PO SCH (09:39)
[2019-08-02] MEDS: TAMSULOSIN HCL 0.4 MG CAP.SR.24H PO SCH (09:39)
[2019-08-02] MEDS: CEFTRIAXONE 1 GM/D5W RTU 1 GM/50 ML RTUPB IV SCH (09:39)
[2019-08-02] MEDS: ONDANSETRON HCL INJ/PF 4 MG/2 ML SDV IV PRN (09:44)
--- NOTE | 2019-08-02 10:42 | PDOC PROGRESS REPORT ---
Subjective Progress Note for:: 08/02/19 Subjective:: Patient is feeling better Still have a persistent left-sided pleural effusions As per discussed with the patient and the today we will proceed for the thoracocentesis for the diagnostic purpose Patient's denied any chest pain to than any shortness of the breath Reason For Visit: PNEUMONIA,ESRD ON HEMODIALYSIS,CHRONIC DIASTOLIC Physical Exam Vital Signs: Temp Pulse Resp BP Pulse Ox 97.8 F 73 16 133/65 H 100 08/02/19 08:10 08/02/19 08:10 08/02/19 08:10 08/02/19 08:10 08/02/19 08:10 Intake & Output 08/01/19 08/02/19 08/03/19 06:59 06:59 06:59 Intake Total 50 50 Output Total 1 1100 Balance 49 -1050 Weight 57 kg 56.6 kg General appearance: PRESENT: no acute distress, well-developed, well-nourished Head exam: PRESENT: atraumatic, normocephalic Eye exam: PRESENT: conjunctiva pink, EOMI, PERRLA. ABSENT: scleral icterus Ear exam: PRESENT: normal external ear exam Mouth exam: PRESENT: moist, tongue midline Neck exam: PRESENT: full ROM. ABSENT: carotid bruit, JVD, lymphadenopathy, thyromegaly Respiratory exam: PRESENT: clear to auscultation jolie Cardiovascular exam: PRESENT: RRR. ABSENT: diastolic murmur, rubs, systolic murmur Murmur grade: 3 Vascular exam: PRESENT: normal capillary refill GI/Abdominal exam: PRESENT: normal bowel sounds, soft. ABSENT: distended, guarding, mass, organolmegaly, rebound, tenderness Rectal exam: PRESENT: deferred Neurological exam: PRESENT: alert, awake, oriented to person, oriented to place, oriented to time. ABSENT: motor sensory deficit Psychiatric exam: PRESENT: appropriate affect, normal mood. ABSENT: homicidal ideation, suicidal ideation Skin exam: PRESENT: dry, intact, warm. ABSENT: cyanosis, rash Results Laboratory Results: 08/01/19 05:11 08/01/19 05:11 07/23/19 12:15 Troponin I 0.347 Impressions: Chest CT 07/25/19 00:00 IMPRESSION: Small to moderate bilateral pleural effusions right greater than left. There is associated basilar airspace disease either atelectasis or pneumonia. Chest Ultrasound 07/28/19 00:00 IMPRESSION: Bilateral, right greater than left, pleural effusions. Chest X-Ray 08/01/19 00:00 IMPRESSION: LEFT LOWER LOBE AIRSPACE DISEASE WITH MODERATE LEFT PLEURAL EFFUSION, RELATIVELY UNCHANGED FROM THE PRIOR STUDY. Assessment & Plan - Diagnosis (1) Pneumonia Qualifiers: Pneumonia type: due to unspecified organism Laterality: unspecified laterality Lung location: unspecified part of lung Qualified Code(s): J18.9 - Pneumonia, unspecified organism Is this a current diagnosis for this admission?: Yes Plan: Continues to antibiotics (2) Chronic diastolic (congestive) heart failure Is this a current diagnosis for this admission?: Yes Plan: Will follow with the cardiology will wait for the echocardiogram reports (3) End stage renal disease Is this a current diagnosis for this admission?: Yes Plan: Consult to Dr. Tavares (4) Hypoxia Is this a current diagnosis for this admission?: Yes (5) Anemia in chronic kidney disease (CKD) Qualifiers: Chronic kidney disease stage: stage 5, not on chronic dialysis Qualified Code(s): N18.5 - Chronic kidney disease, stage 5; D63.1 - Anemia in chronic kidney disease; D63.1 - Anemia in chronic kidney disease Is this a current diagnosis for this admission?: Yes (6) Axonal GBS (Guillain-Brokaw syndrome) Is this a current diagnosis for this admission?: Yes (7) Cerebrovascular disease Is this a current diagnosis for this admission?: Yes (8) Diabetes mellitus, type II Qualifiers: Diabetes mellitus manager long term care insulin use: with intermediate use Diabetes mellitus complication status: with other specified complication Qualified Code(s): E11.69 - Type 2 diabetes mellitus with other specified complication; Z79.4 - longterm (current) use of insulin; Z79.4 - longterm (current) use of insulin; Z79.4 - [place] (current) use of insulin; Z79.4 - longterm (current) use of insulin Is this a current diagnosis for this admission?: Yes (9) History of kidney transplant Is this a current diagnosis for this admission?: Yes (10) Peripheral arterial disease Is this a current diagnosis for this admission?: Yes Plan: She did have extensive evaluations done by the vascular surgery here and also sent to the [facility] have a procedure done but patient still have some dry gangrene I think patients was refused amputation in the past Currently not septic (11) Pleural effusion on left Is this a current diagnosis for this admission?: Yes Plan: Patient still with persistent left-sided pleural effusions we will proceed for the thoracocentesis with ongoing problem for the diagnostic purpose (12) Pleural effusion on right Is this a current diagnosis for this admission?: Yes - Time Time Spent with patient: 15-24 minutes Medications reviewed and adjusted accordingly: Yes Anticipated discharge: Home with Homehealth Within: Other - Plan Summary Plan Summary: Discussed with the patient and the and other coordinate consultants patient is currently hold the Plavix scheduled for thoracocentesis while still persistent even after the dialysisTo rule out any parapneumonic effusions
--- NOTE | 2019-08-02 13:28 | RADIOLOGY REPORT (SQ) ---
EXAM DESCRIPTION: CHEST SINGLE VIEW COMPLETED DATE/TIME: 08/02/2019 1:08 pm REASON FOR STUDY: S/P THORACENTESIS COMPARISON: 08/01/2019 NUMBER OF VIEWS: One view. TECHNIQUE: Single frontal radiographic view of the chest acquired. LIMITATIONS: None. FINDINGS: LUNGS AND PLEURA: Persistent left pleural effusion with underlying atelectasis or pneumoni a. Right pleural effusion is smaller following thoracentesis. No pneumothorax. MEDIASTINUM AND HILAR STRUCTURES: No masses. Contour normal. HEART AND VASCULAR STRUCTURES: Stable. BONES: No acute findings. HARDWARE: Unchanged. OTHER: No other significant finding. IMPRESSION: 1. No pneumothorax following right-sided thoracentesis. 2. Persistent left basilar airspace disease and left pleural effusion. TECHNICAL DOCUMENTATION: JOB ID: [id number] [employer]- All Rights Reserved Reading location - IP/workstation name: [email or web address]
--- NOTE | 2019-08-02 13:41 | RADIOLOGY REPORT (SQ) ---
EXAM DESCRIPTION: U/S THORACENTESIS WITH IMAGING COMPLETED DATE/TIME: 08/02/2019 1:26 pm REASON FOR STUDY: Persistent right-sided pleural effusion COMPARISON: Chest x-ray done earlier the same day. RADIATION DOSE: None. LIMITATIONS: None. PROCEDURE: Procedure, risks, benefit, and alternative explained to patient who then gave written con sent. The posterior right chest wall was marked using ultrasound guidance. A time-out was called fo r correct marking verification. Chest prepped and draped using sterile technique. Local anesthesia a chieved using 10 ml of 1% lidocaine injection. A 6fr Safe-T- Centesis set was introduced into the [facility] pleural space. Fluid was aspirated. The catheter was removed and the entry site was covered wit h sterile bandage. No immediate complications noted. Images acquired during the procedure were stored on PACS. FINDINGS: ENTRY SITE: Right posterior chest wall. FLUID VOLUME: 800 mL. FLUID ANALYSIS: Cloudy, straw-colored. OTHER: Fluid sent to the lab for testing. IMPRESSION: SUCCESSFUL THORACENTESIS USING ULTRASOUND GUIDANCE. COMMENT: Patient medication list reviewed: Yes- Quality ID# [id number]:Eligible professional attests to doc umenting in the medical record they obtained, updated, or reviewed the patient's current medications. TECHNICAL DOCUMENTATION: JOB ID: [id number] [employer]- All Rights Reserved Reading location - IP/workstation name: [email or web address]
[2019-08-02 13:58] LABS: FLUID TYPE PLEURAL
[2019-08-02 13:59] LABS: FLUID APPEARANCE SLIGHTLY HAZY; FLUID COLOR YELLOW; FLUID SOURCE LUNG; FLUID VISCOSITY LIQUID
--- NOTE | 2019-08-02 15:38 | RADIOLOGY REPORT (SQ) ---
EXAM DESCRIPTION: CHEST SINGLE VIEW COMPLETED DATE/TIME: 08/02/2019 3:23 pm REASON FOR STUDY: S/P THORACENTESIS COMPARISON: Earlier the same day. NUMBER OF VIEWS: One view. TECHNIQUE: Single frontal radiographic image of the chest acquired. LIMITATIONS: None. FINDINGS: LUNGS AND PLEURA: Stable in appearance. No pneumothorax 2 hours following right-sided tho racentesis. MEDIASTINUM AND HILAR STRUCTURES: Stable heart size and mediastinal structures. HEART AND VASCULAR STRUCTURES: Stable appearance. BONES: No acute findings. HARDWARE: Unchanged. OTHER: No other significant finding. IMPRESSION: Stable chest. No pneumothorax 2 hours following right-sided thoracentesis. TECHNICAL DOCUMENTATION: JOB ID: [id number] [employer]- All Rights Reserved Reading location - IP/workstation name: [email or web address]
[2019-08-02] MEDS: ATORVASTATIN CALCIUM 20 MG TABLET PO SCH (21:42)
[2019-08-03] MEDS ORDERED: HEPARIN SOD (PORCINE) 1,000 UNIT/ML 10 ML VIAL IV PRN (05:00)
[2019-08-03] MEDS ORDERED: NORMAL SALINE 1000 ML 1,000 ML IV PRN (05:00)
[2019-08-03 05:51] LABS: ABSOLUTE BASOPHILS # (AUTO) 0.1 10^3/uL (0.0-0.2); ABSOLUTE EOSINOPHILS # (AUTO) 0.3 10^3/uL (0.0-0.6); ABSOLUTE LYMPHOCYTES (AUTO) 2.2 10^3/uL (0.5-4.7); ABSOLUTE MONOCYTES (AUTO) 0.5 10^3/uL (0.1-1.4); ABSOLUTE NEUT (AUTO) 2.3 10^3/uL (1.7-8.2); EOSINOPHILS % (AUTO) 6.2 % (0-6); HEMATOCRIT 38.8 % (37.9-51.0); HEMOGLOBIN 12.8 g/dL (13.5-17.0); LYMPHOCYTES % (AUTO) 40.2 % (13-45); MEAN CORPUSCULAR HEMOGLOBIN 30.1 pg (27.0-33.4); MEAN CORPUSCULAR VOLUME 91 fl (80-97); MONOCYTES % (AUTO) 9.7 % (3-13); PLATELET COUNT 168 10^3/uL (150-450); RED BLOOD COUNT 4.25 10^6/uL (4.35-5.55); RED CELL DISTRIBUTION WIDTH 15.6 % (11.5-14.0); SEGMENTED NEUTROPHILS % (AUTO) 42.9 % (42-78); TOTAL CELLS COUNTED % (AUTO) 100 %; WHITE BLOOD COUNT 5.3 10^3/uL (4.0-10.5)
[2019-08-03 06:23] LABS: ANION GAP 10 (5-19); BLOOD UREA NITROGEN 23 mg/dL (7-20); CALCIUM 8.8 mg/dL (8.4-10.2); CARBON DIOXIDE 30 mmol/L (22-30); CHLORIDE 102 mmol/L (98-107); GLUCOSE 80 mg/dL (75-110); POTASSIUM 3.8 mmol/L (3.6-5.0)
[2019-08-03] MEDS: INSULIN LISPRO 100 UNIT/ML 3 ML VIAL SUBCUT SCH ×4 (08:32→21:25)
[2019-08-03] MEDS: SEVELAMER HCL 800 MG TABLET PO SCH ×3 (08:32→18:14)
--- NOTE | 2019-08-03 09:19 | PDOC PROGRESS REPORT ---
Subjective Progress Note for:: 08/03/19 Subjective:: Patient had a thoracocentesis done on the right side remove the 800 cc of the fluids Patient's WBC in the fluid is 500 other lab is still pending questionable exudate versus transudate as per discussed with the Dr. Waters's possible most likely a transudate Patient is going for dialysis 2 days Patient's white count is all normal afebrile Reason For Visit: PNEUMONIA,ESRD ON HEMODIALYSIS,CHRONIC DIASTOLIC Physical Exam Vital Signs: Temp Pulse Resp BP Pulse Ox 97.9 F 76 20 118/50 L 98 08/03/19 03:35 08/03/19 07:00 08/03/19 03:35 08/03/19 03:35 08/03/19 03:35 Intake & Output 08/02/19 08/03/19 08/04/19 06:59 06:59 06:59 Intake Total 50 1030 Output Total 1100 0 Balance -1050 1030 Weight 56.6 kg 57.1 kg General appearance: PRESENT: no acute distress, well-developed, well-nourished Head exam: PRESENT: atraumatic, normocephalic Eye exam: PRESENT: conjunctiva pink, EOMI, PERRLA. ABSENT: scleral icterus Ear exam: PRESENT: normal external ear exam Mouth exam: PRESENT: moist, tongue midline Neck exam: PRESENT: full ROM. ABSENT: carotid bruit, JVD, lymphadenopathy, thyromegaly Respiratory exam: PRESENT: clear to auscultation jolie Cardiovascular exam: PRESENT: RRR. ABSENT: diastolic murmur, rubs, systolic murmur Murmur grade: 3 Vascular exam: PRESENT: normal capillary refill GI/Abdominal exam: PRESENT: normal bowel sounds, soft. ABSENT: distended, guarding, mass, organolmegaly, rebound, tenderness Rectal exam: PRESENT: deferred Neurological exam: PRESENT: alert, awake, oriented to person, oriented to place, oriented to time, oriented to situation, CN II-XII grossly intact. ABSENT: jorge r sensory deficit Psychiatric exam: PRESENT: appropriate affect, normal mood. ABSENT: homicidal ideation, suicidal ideation Skin exam: PRESENT: dry, intact, warm. ABSENT: cyanosis, rash Results Laboratory Results: 08/03/19 05:08 08/03/19 05:08 08/02/19 08/03/1919 12:40 05:08 05:08 WBC 5.3 RBC 4.25 L Hgb 12.8 L Hct 38.8 MCV 91 MCH 30.1 MCHC 33.0 RDW 15.6 H Plt Count 168 Seg Neutrophils % 42.9 Sodium 141.7 Potassium 3.8 Chloride 102 Carbon Dioxide 30 Anion Gap 10 BUN 23 H Creatinine 4.75 H Est GFR ( Amer) 15 L Glucose 80 Calcium 8.8 Fluid Type PLEURAL Fluid Source LUNG Fluid Color YELLOW Fluid Appearance SLIGHTLY HAZY Fluid Viscosity LIQUID Fluid WBC 515 Fluid RBC 1345 07/23/19 12:15 Troponin I 0.347 Impressions: Chest CT 07/25/19 00:00 IMPRESSION: Small to moderate bilateral pleural effusions right greater than left. There is associated basilar airspace disease either atelectasis or pneumonia. Chest Ultrasound 07/28/19 00:00 IMPRESSION: Bilateral, right greater than left, pleural effusions. Thoracentesis Ultrasound 08/02/19 00:00 IMPRESSION: SUCCESSFUL THORACENTESIS USING ULTRASOUND GUIDANCE. Chest X-Ray 08/02/19 14:55 IMPRESSION: Stable chest. No pneumothorax 2 hours following right-sided thoracentesis. Assessment & Plan - Diagnosis (1) Pneumonia Qualifiers: Pneumonia type: due to unspecified organism Laterality: unspecified laterality Lung location: unspecified part of lung Qualified Code(s): J18.9 - Pneumonia, unspecified organism Is this a current diagnosis for this admission?: Yes Plan: Continues to antibiotic will wait for the culture and sensitivity (2) Chronic diastolic (congestive) heart failure Is this a current diagnosis for this admission?: Yes Plan: Will follow with the cardiology will wait for the echocardiogram reports (3) End stage renal disease Is this a current diagnosis for this admission?: Yes Plan: Consult to Dr. Tavares (4) Hypoxia Is this a current diagnosis for this admission?: Yes Plan: We redo the chest x-ray after the dialysis may be need a CT scan of the chest if it is not improving (5) Anemia in chronic kidney disease (CKD) Qualifiers: Chronic kidney disease stage: stage 5, not on chronic dialysis Qualified Code(s): N18.5 - Chronic kidney disease, stage 5; D63.1 - Anemia in chronic kidney disease; D63.1 - Anemia in chronic kidney disease Is this a current diagnosis for this admission?: Yes (6) Axonal GBS (Guillain-[place] syndrome) Is this a current diagnosis for this admission?: Yes (7) Cerebrovascular disease Is this a current diagnosis for this admission?: Yes (8) Diabetes mellitus, type II Qualifiers: Diabetes mellitus half-way insulin use: with half-way use Diabetes mellitus complication status: with other specified complication Qualified Code(s): E11.69 - Type 2 diabetes mellitus with other specified complication; Z79.4 - detention (current) use of insulin; Z79.4 - detention (current) use of insulin; Z79.4 - rn long term care (current) use of insulin; Z79.4 - detention (current) use of insulin Is this a current diagnosis for this admission?: Yes (9) History of kidney transplant Is this a current diagnosis for this admission?: Yes (10) Peripheral arterial disease Is this a current diagnosis for this admission?: Yes (11) Pleural effusion on left Is this a current diagnosis for this admission?: Yes (12) Pleural effusion on right Is this a current diagnosis for this admission?: Yes Plan: Status post thoracocentesis will wait for the culture - Time Time Spent with patient: 25-34 minutes Medications reviewed and adjusted accordingly: Yes Anticipated discharge: Other Within: Other - Plan Summary Plan Summary: Continues to current medications
[2019-08-03] MEDS: GUAIFENESIN 600 MG TABLET.SA PO SCH ×2 (10:45→21:28)
[2019-08-03] MEDS: BENZONATATE 100 MG CAPSULE PO SCH ×3 (10:45→18:14)
[2019-08-03 12:52] LABS: TOTAL PROTEIN BODY FLUID 3.1 g/dL (.)
[2019-08-03] MEDS: FERROUS SULFATE 325 MG TABLET PO SCH (13:22)
[2019-08-03] MEDS: ISOSORBIDE MONONITRATE 30 MG TAB.ER.24H PO SCH (13:23)
[2019-08-03] MEDS: TAMSULOSIN HCL 0.4 MG CAP.SR.24H PO SCH (13:23)
[2019-08-03] MEDS: FOLIC ACID/VITAMIN B COMP W-C CAPSULE PO SCH (13:23)
[2019-08-03] MEDS: LISINOPRIL 5 MG TABLET PO SCH (13:23)
[2019-08-03] MEDS: FAMOTIDINE 20 MG TABLET PO SCH (13:23)
[2019-08-03] MEDS: ASCORBIC ACID 500 MG TABLET PO SCH (13:23)
[2019-08-03] MEDS: CEFTRIAXONE 1 GM/D5W RTU 1 GM/50 ML RTUPB IV SCH (13:24)
--- NOTE | 2019-08-03 14:09 | PDOC PROGRESS REPORT ---
Subjective Progress Note for:: 08/03/19 Subjective:: I am seeing the patient during dialysis this morning. Is currently doing fine and claims that his breathing is better. He underwent thoracentesis yesterday obtaining 800 mL of fluid pleural fluid. He does not have any specific new complaints today. Reason For Visit: PNEUMONIA,ESRD ON HEMODIALYSIS,CHRONIC DIASTOLIC Physical Exam Vital Signs: Temp Pulse Resp BP Pulse Ox 97.9 F 76 20 118/50 L 98 08/03/19 03:35 08/03/19 07:00 08/03/19 03:35 08/03/19 03:35 08/03/19 03:35 Intake & Output 08/02/19 08/03/19 08/04/19 06:59 06:59 06:59 Intake Total 50 1030 Output Total 1100 0 Balance -1050 1030 Weight 56.6 kg 57.1 kg Vitals during dialysis: Blood pressure 152/94, heart rate of 72, blood flow rate of 250 mL/min and dialysate flow rate of 800 mL/min. Exam: General appearance: PRESENT: no acute distress, cooperative, well-developed, well-nourished Head exam: PRESENT: atraumatic, normocephalic Eye exam: PRESENT: conjunctiva pink, PERRLA. ABSENT: scleral icterus Neck exam: ABSENT: JVD Respiratory exam: PRESENT: Normal breath sounds. ABSENT: crackles, rales, rhonchi, unlabored, wheezes Cardiovascular exam: PRESENT: Regular rate rhythm -+S1, +S2. ABSENT: diastolic murmur, systolic murmur GI/Abdominal exam: PRESENT: normal bowel sounds, soft. ABSENT: guarding, mass, tenderness Extremities exam: ABSENT: No edema Neurological exam: PRESENT: alert, awake, oriented to person, place and time. Skin exam: PRESENT: dry, warm, Cardiovascular exam: PRESENT: +S1, +S2 GI/Abdominal exam: PRESENT: normal bowel sounds, soft. ABSENT: organomegaly, tenderness Results Laboratory Results: 08/03/19 05:08 08/03/19 05:08 08/02/19 08/03/19 08/03/19 12:40 05:08 05:08 WBC 5.3 RBC 4.25 L Hgb 12.8 L Hct 38.8 MCV 91 MCH 30.1 MCHC 33.0 RDW 15.6 H Plt Count 168 Seg Neutrophils % 42.9 Sodium 141.7 Potassium 3.8 Chloride 102 Carbon Dioxide 30 Anion Gap 10 BUN 23 H Creatinine 4.75 H Est GFR ( Amer) 15 L Glucose 80 Calcium 8.8 Fluid Type PLEURAL Fluid Source LUNG Fluid Color YELLOW Fluid Appearance SLIGHTLY HAZY Fluid Viscosity LIQUID Fluid WBC 515 Fluid RBC 1345 07/23/19 12:15 Troponin I 0.347 Impressions: Chest CT 07/25/19 00:00 IMPRESSION: Small to moderate bilateral pleural effusions right greater than left. There is associated basilar airspace disease either atelectasis or pneumonia. Chest Ultrasound 07/28/19 00:00 IMPRESSION: Bilateral, right greater than left, pleural effusions. Thoracentesis Ultrasound 08/02/19 00:00 IMPRESSION: SUCCESSFUL THORACENTESIS USING ULTRASOUND GUIDANCE. Chest X-Ray 08/02/19 14:55 IMPRESSION: Stable chest. No pneumothorax 2 hours following right-sided thoracentesis. Assessment & Plan - Diagnosis (1) End stage renal disease Is this a current diagnosis for this admission?: Yes Plan: We will do dialysis today for 3 hours, using the patient's PermCath, with 3 potassium/30 bicarb bath, blood flow rate of 350 mL per minute, dialysate flow rate of 800 mL per minute, ultrafiltration 0.5L as tolerated, no heparin and no Procrit. Dialysis prescription discussed with our nurse. Patient will be monitored throughout dialysis treatment. (2) Pneumonia Qualifiers: Pneumonia type: due to unspecified organism Laterality: unspecified laterality Lung location: unspecified part of lung Qualified Code(s): J18.9 - Pneumonia, unspecified organism Is this a current diagnosis for this admission?: Yes Plan: On antibiotics per Dr. Girard. (3) Chronic diastolic (congestive) heart failure Is this a current diagnosis for this admission?: Yes Plan: Compensated. (4) Axonal GBS (Guillain-Edwards syndrome) Is this a current diagnosis for this admission?: Yes Plan: Stable. (5) Diabetes mellitus, type II Qualifiers: Diabetes mellitus fdc insulin use: with fdc use Diabetes me llitus complication status: with other specified complication Qualified C ode(s): E11.69 - Type 2 diabetes mellitus with other specified complication; Z79.4 - termite exterminator helper (current) use of insulin; Z79.4 - half-way (current) use of insulin; Z79.4 - half-way (current) use of insulin; Z79.4 - half-way (current) use of insulin Is this a current diagnosis for this admission?: Yes (6) ESBL (extended spectrum beta-lactamase) producing bacteria infection Is this a current diagnosis for this admission?: No Plan: Has history of, needed isolation. (7) Hypertension Qualifiers: Hypertension type: essential hypertension Qualified Code(s): I10 - Essential (primary) hypertension Is this a current diagnosis for this admission?: Yes (8) VRE (vancomycin-resistant Enterococci) infection Is this a current diagnosis for this admission?: No Plan: Has history oft, needed isolation. (9) Pleural effusion Is this a current diagnosis for this admission?: Yes Plan: Status post right thoracentesis yesterday, 08/02. - Time Time with patient: 15-25 minutes
[2019-08-03] MEDS: ATORVASTATIN CALCIUM 20 MG TABLET PO SCH (21:28)
[2019-08-04] MEDS: INSULIN LISPRO 100 UNIT/ML 3 ML VIAL SUBCUT SCH ×2 (07:44→11:21)
[2019-08-04] MEDS: SEVELAMER HCL 800 MG TABLET PO SCH ×2 (08:28→13:26)
[2019-08-04] MEDS: ASCORBIC ACID 500 MG TABLET PO SCH (09:14)
[2019-08-04] MEDS: GUAIFENESIN 600 MG TABLET.SA PO SCH (09:14)
[2019-08-04] MEDS: FERROUS SULFATE 325 MG TABLET PO SCH (09:14)
[2019-08-04] MEDS: ISOSORBIDE MONONITRATE 30 MG TAB.ER.24H PO SCH (09:14)
[2019-08-04] MEDS: FOLIC ACID/VITAMIN B COMP W-C CAPSULE PO SCH (09:14)
[2019-08-04] MEDS: TAMSULOSIN HCL 0.4 MG CAP.SR.24H PO SCH (09:14)
[2019-08-04] MEDS: FAMOTIDINE 20 MG TABLET PO SCH (09:14)
[2019-08-04] MEDS: LISINOPRIL 5 MG TABLET PO SCH (09:14)
[2019-08-04] MEDS: BENZONATATE 100 MG CAPSULE PO SCH ×2 (09:14→13:26)
[2019-08-04] MEDS: ONDANSETRON HCL INJ/PF 4 MG/2 ML SDV IV PRN (09:14)
[2019-08-04] MEDS: CEFTRIAXONE 1 GM/D5W RTU 1 GM/50 ML RTUPB IV SCH (09:14)
--- NOTE | 2019-08-04 09:16 | PDOC PROGRESS REPORT ---
Subjective Progress Note for:: 08/04/19 Subjective:: Congestive heart failure, abnormal troponin I. Patient however denied any chest pain. His main symptom was shortness of breath. Today he is complaining of some abdominal pain. Patient claims that he is getting antibiotics. He has also gotten some medicine. Telemetry strip shows no significant arrhythmias. Patient just had one troponin I drawn which was noted to be in the low suggestive range 2D echocardiogram performed today shows relatively well- preserved LVEF at 45 to 50%, moderate mitral regurgitation and possible apical hypokinesia. Patient has history of significant coronary artery disease, peripheral vascular disease, end-stage renal disease on dialysis. Patient also has and is basically bedbound. Pleural fluid report available now. It suggest that it is transudate. Most likely related to diastolic CHF and possibly valvular heart disease. Reason For Visit: PNEUMONIA,ESRD ON HEMODIALYSIS,CHRONIC DIASTOLIC Physical Exam Vital Signs: Temp Pulse Resp BP Pulse Ox 98.3 F 80 16 141/68 H 92 08/04/19 07:29 08/04/19 07:00 08/04/19 07:29 08/04/19 07:29 08/04/19 04:00 Intake & Output 08/03/19 08/04/19 08/05/19 06:59 06:59 06:59 Intake Total 1030 842 Output Total 0 700 Balance 1030 142 Weight 57.1 kg 58.9 kg Exam: GENERAL: well-nourished and in no acute distress. Alert and oriented x3 HEAD: Atraumatic, normocephalic. EYES: JORGE, sclera anicteric, conjunctiva are normal. ENT: Moist mucous membranes. No oral ulcerations or bleeding gums noted. No obvious ear, nose or throat abnormalities noted. NECK: supple without lymphadenopathy. Trachea is central. No cervical or a xillary lymphadenopathy noted. Carotids are 2+, JVD WNL LUNGS: Breath sounds clear bilaterally. No wheezes rales or rhonchi noted. No significant dullness noted on percussion. CHEST: Palpation of the chest wall shows no significant chest wall tenderness. 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 ABDOMEN: Soft, no significant tenderness appreciated, normoactive bowel sounds. No guarding, no rebound. No rigidity noted . No masses appreciated. EXTREMITIES: Pedal pulses are 1-2+, no calf tenderness noted. No clubbing or cyanosis. negative pedal edema noted NEUROLOGICAL: Unchanged. Patient has significant problems with paraplegia and muscle wasting. PSYCH: Normal mood, normal affect. Judgment and insight within normal limits. SKIN: No significant ecchymosis, skin is noted to be warm. MUSCULOSKELETAL EXAM: No significant acute joint swelling noted. Results Laboratory Results: 08/03/19 05:08 08/03/19 05:08 08/02/19 08/02/19 12:40 12:40 Fluid Glucose 115 Fluid Total Protein 3.1 Fluid LDH 119 Fluid Amylase 23 08/02/19 12:40 Pleural Fluid AFB Smear Concentration - Final 08/02/19 12:40 Pleural Fluid Acid Fast Bacilli Smear - Final 07/23/19 12:15 Troponin I 0.347 EKG Comments: Telemetry shows sinus rhythm. Impressions: Chest CT 07/25/19 00:00 IMPRESSION: Small to moderate bilateral pleural effusions right greater than left. There is associated basilar airspace disease either atelectasis or pneumonia. Chest Ultrasound 07/28/19 00:00 IMPRESSION: Bilateral, right greater than left, pleural effusions. Thoracentesis Ultrasound 08/02/19 00:00 IMPRESSION: SUCCESSFUL THORACENTESIS USING ULTRASOUND GUIDANCE. Chest X-Ray 08/02/19 14:55 IMPRESSION: Stable chest. No pneumothorax 2 hours following right-sided thoracentesis. Assessment & Plan - Diagnosis (1) Chronic diastolic (congestive) heart failure Is this a current diagnosis for this admission?: Yes (2) End stage renal disease Is this a current diagnosis for this admission?: Yes (3) Hypoxia Is this a current diagnosis for this admission?: Yes (4) Peripheral arterial disease Is this a current diagnosis for this admission?: Yes (5) Coronary artery disease Qualifiers: Coronary Disease-Associated Artery/Lesion type: unspecified vessel or lesion type [place] vs. transplanted heart: [place] heart Associated angina: angina presence unspecified Qualified Code(s): I25.10 - Atherosclerotic heart disease of [place] coronary artery without angina pectoris Is this a current diagnosis for this admission?: Yes (6) Diabetes mellitus, type II Qualifiers: Diabetes mellitus termite helper insulin use: with fdc use Diabetes mellitus complication status: with other specified complication Qualified Code(s): E11.69 - Type 2 diabetes mellitus with other specified complication; Z79.4 - termite helper (current) use of insulin; Z79.4 - termite helper (current) use of insulin; Z79.4 - detention (current) use of insulin; Z79.4 - detention (current) use of insulin Is this a current diagnosis for this admission?: Yes - Notes Notes: Patient tells me he is being discharged. Patient has been stable from cardiac standpoint for last several days without any significant arrhythmias, chest pain or shortness of breath. He does have pleural effusion. At this point recommend periodic chest x-ray. Patient can follow-up with me as an outpatient. Continue with fluid management on dialysis. - Time Time with patient: Greater than 35 minutes - More than 50% of the time spent coordinating care, discussing management plans with involved caregivers. Ma nagement plans discussed with involved personnels. Medical decision making was of moderate to high complexity, patient's has multiple comorbidities. Medications reviewed and adjusted accordingly: Yes
[2019-08-04 13:41] VITALS: BP 138/67
--- NOTE | 2019-08-04 14:42 | PDOC DISCHARGE SUMMARY ---
General - Admit/Disc Date/PCP Admission Date/Primary Care Provider: 07/23/19 13:54 KEEGAN MONTENEGRO MD Discharge Date: 08/04/19 - Discharge Diagnosis (1) Pneumonia Is this a current diagnosis for this admission?: Yes Summary: Currently all resolved (2) Chronic diastolic (congestive) heart failure Is this a current diagnosis for this admission?: Yes Summary: Patients follow Dr. Lazo as outpatient currently seen in the hospitals no need to change any medicines for him (3) End stage renal disease Is this a current diagnosis for this admission?: Yes Summary: Currently on hemodialysis follow with the Dr. Tavares (4) Hypoxia Is this a current diagnosis for this admission?: Yes Summary: Currently all resolved (5) Anemia in chronic kidney disease (CKD) Is this a current diagnosis for this admission?: Yes Summary: Currently all stable (6) Axonal GBS (Guillain-[place] syndrome) Is this a current diagnosis for this admission?: Yes (7) Cerebrovascular disease Is this a current diagnosis for this admission?: Yes (8) Diabetes mellitus, type II Is this a current diagnosis for this admission?: Yes (9) History of kidney transplant Is this a current diagnosis for this admission?: Yes (10) Peripheral arterial disease Is this a current diagnosis for this admission?: Yes Summary: As per discussed with the patient and the follow-up with outpatient vascular surgery at [place] which patient had a procedure done 6 months back (11) Pleural effusion on left Is this a current diagnosis for this admission?: Yes Summary: Currently on stable (12) Pleural effusion on right Is this a current diagnosis for this admission?: Yes Summary: Most likely a transudate fluid for thoracocentesis analysis 800 cc fluid removed will wait for the cytology report otherwise culture is negative follow outpatient Dr. Waters - Additional Information Discharge Diet: Diabetic Discharge Activity: Activity As Tolerated Prescriptions: Cephalexin Monohydrate [Keflex 500 mg Capsule] 500 mg PO BID #10 capsule Home Medications: Ascorbate Calcium [Vitamin C] 500 mg PO DAILY 07/23/19 Aspirin [Ecotrin 81 mg EC Tablet] 81 mg PO DAILY 07/23/19 Atorvastatin Calcium [Lipitor 20 mg Tablet] 20 mg PO DAILY 07/23/19 Clopidogrel Bisulfate [Plavix 75 mg Tablet] 75 mg PO DAILY 07/23/19 Ergocalciferol (Vitamin D2) [Drisdol 50,000 unit (1.25MG) Capsule] 50,000 unit PO FR@1000 07/23/19 Iron 130 mg PO DAILY 07/23/19 Isosorbide Mononitrate [Imdur 30 mg Tablet.er] 30 mg PO DAILY 07/23/19 Lisinopril [Zestril] 5 mg PO DAILY 07/23/19 Ranitidine HCl [Zantac] 150 mg PO DAILY 07/23/19 Sevelamer Carbonate [Renvela] 1,600 mg PO TID 07/23/19 Tamsulosin HCl [Flomax] 0.4 mg PO DAILY 07/23/19 Vitamin B Complex/Folic Acid [B-Complex Tablet] 0.4 mg PO DAILY 07/23/19 Cephalexin Monohydrate [Keflex 500 mg Capsule] 500 mg PO BID #10 capsule History of Present Illness History of Present Illness: KAHTRYN HURLEY is a 63 year old male This is 63-year-old male admitted to the hospital for the shortness of the breath hypoxia's respiratory distressed heart failure pneumonia and end-stage renal disease on hemodialysis Hospital Course Hospital Course: This 63-year-old male with a significant medical problem as about including end- stage renal disease on hemodialysis status post renal transplant rejected history of the congestive heart failure history of the hypertension's hyperlipidemia stroke cardiac arrest significant peripheral artery disease multiple other comorbidity Patient is came from the respiratory distress short of breath hypoxia has initially diagnosed with the possible pneumonia heart failure patient admitting in the hospital started on IV antibiotics and underwent further dialysis Since cardiology Dr. Lazo saw the patient's usually not get much benefit the Lasix because of the not making urine output adjust to the dialysis She was also started on IV antibiotics seen by Dr. Balbuena patients underwent for several dialysis but still not improving the pleural effusion and the patient echocardiogram was done by Dr. Dr. Lazo was all stable and underwent for the thoracocentesis with 800 cc of the fluid removed from the right side Most fluid analysis is most likely transudate patient's initial culture is all negative's cytology is still pending Is feeling much better patient's cough is all Resolved Patient at this point still have significant peripheral arterial disease with possible gangrene of both legs currently not septic patient seen by vascular surgeon in [place] and currently follow over the Patient's was amputation was suggested here patient was refused in the past and currently follow with the vascular surgery over the Overall prognosis is not good with the multiple comorbidity very extensive disc ussions with the coordinate showroom sales consultant and discussed with the patient's regarding the patient's current conditions understand very well I discussed with the patient Patient is discharged home with the stable conditions follow outpatient as above Physical Exam Vital Signs: Temp Pulse Resp BP Pulse Ox 98.3 F 80 16 138/67 H 92 08/04/19 13:36 08/04/19 13:36 08/04/19 13:36 08/04/19 13:36 08/04/19 13:36 Intake & Output 08/03/19 08/04/19 08/05/19 06:59 06:59 06:59 Intake Total 1030 842 270 Output Total 0 700 Balance 1030 142 270 Weight 57.1 kg 58.9 kg General appearance: PRESENT: no acute distress Head exam: PRESENT: atraumatic, normocephalic Eye exam: PRESENT: conjunctiva pink, EOMI, PERRLA. ABSENT: scleral icterus Ear exam: PRESENT: normal external ear exam Mouth exam: PRESENT: moist, tongue midline Neck exam: PRESENT: full ROM. ABSENT: carotid bruit, JVD, lymphadenopathy, thyromegaly Respiratory exam: PRESENT: clear to auscultation jolie Cardiovascular exam: PRESENT: RRR. ABSENT: diastolic murmur, rubs, systolic murmur Murmur grade: 3 Additional comments: Pulses not very palpable Vascular exam: PRESENT: normal capillary refill GI/Abdominal exam: PRESENT: normal bowel sounds, soft. ABSENT: distended, guarding, mass, organolmegaly, rebound, tenderness Rectal exam: PRESENT: deferred Neurological exam: PRESENT: alert, awake, oriented to person, oriented to place, oriented to time, oriented to situation, CN II-XII grossly intact. ABSENT: motor sensory deficit Psychiatric exam: PRESENT: appropriate affect, normal mood. ABSENT: homicidal ideation, suicidal ideation Skin exam: PRESENT: dry, intact, warm. ABSENT: cyanosis, rash Results Laboratory Results: 08/03/19 05:08 08/03/19 05:08 08/02/19 12:40 Pleural Fluid Fungal Smear - Final 08/02/19 12:40 Pleural Fluid Fungal Smear - Final 08/02/19 12:40 Pleural Fluid AFB Smear Concentration - Final 08/02/19 12:40 Pleural Fluid Acid Fast Bacilli Smear - Final 07/23/19 12:15 Troponin I 0.347 Impressions: Chest CT 07/25/19 00:00 IMPRESSION: Small to moderate bilateral pleural effusions right greater than left. There is associated basilar airspace disease either atelectasis or pneumonia. Chest Ultrasound 07/28/19 00:00 IMPRESSION: Bilateral, right greater than left, pleural effusions. Thoracentesis Ultrasound 08/02/19 00:00 IMPRESSION: SUCCESSFUL THORACENTESIS USING ULTRASOUND GUIDANCE. Chest X-Ray 08/02/19 14:55 IMPRESSION: Stable chest. No pneumothorax 2 hours following right-sided thoracentesis. Qualifiers - * PATIENT BEING DISCHARGED WITH ANY OF THE FOLLOWING DIAGNOSIS: No Acute Heart Failure - Is this a Heart Failure Patient?: No Plan Time Spent: Greater than 30 Minutes - Follow outpatient 1 week repeat the chest x-ray Continues follow-up with the dialysis as per schedule Follow outpatients vascular surgery at [facility] for the peripheral artery disease
== END 2019-08-04 15:41 | disposition home health service (06) | DRG 193 ==
LOC: ER 11:58 → EH 13:54 → 3S 15:53
PROVIDERS: ADMIT Internal Medicine Geriatric Medicine; ATTEND Family Medicine
PROC: 5A1D70Z Performance of Urinary Filtration, Intermittent, Less than 6 Hours Per Day (ICD-10-PCS; 2019-07-25)
PROC: 5A1D70Z Performance of Urinary Filtration, Intermittent, Less than 6 Hours Per Day (ICD-10-PCS; 2019-07-27)
PROC: 5A1D70Z Performance of Urinary Filtration, Intermittent, Less than 6 Hours Per Day (ICD-10-PCS; 2019-07-29)
PROC: 5A1D70Z Performance of Urinary Filtration, Intermittent, Less than 6 Hours Per Day (ICD-10-PCS; 2019-08-01)
PROC: 0W993ZZ Drainage of Right Pleural Cavity, Percutaneous Approach (ICD-10-PCS; principal; 2019-08-02)
PROC: 5A1D70Z Performance of Urinary Filtration, Intermittent, Less than 6 Hours Per Day (ICD-10-PCS; 2019-08-03)
DX: J18.9 Pneumonia, unspecified organism (principal); A48.0 Gas gangrene; E11.52 Type 2 diabetes mellitus with diabetic peripheral angiopathy with gangrene; G61.0 Guillain-Barre syndrome; J91.8 Pleural effusion in other conditions classified elsewhere; Z94.0 Kidney transplant status; N25.81 Secondary hyperparathyroidism of renal origin; N18.5 Chronic kidney disease, stage 5; I12.0 Hypertensive chronic kidney disease with stage 5 chronic kidney disease or end stage renal disease; E11.22 Type 2 diabetes mellitus with diabetic chronic kidney disease; D63.1 Anemia in chronic kidney disease; E78.5 Hyperlipidemia, unspecified; G47.30 Sleep apnea, unspecified; K21.9 Gastro-esophageal reflux disease without esophagitis; I25.10 Atherosclerotic heart disease of native coronary artery without angina pectoris; E11.21 Type 2 diabetes mellitus with diabetic nephropathy; L89.151 Pressure ulcer of sacral region, stage 1; I25.2 Old myocardial infarction; Z99.2 Dependence on renal dialysis; Z79.899 Other long term (current) drug therapy; Z86.73 Personal history of transient ischemic attack (TIA), and cerebral infarction without residual deficits; Z95.1 Presence of aortocoronary bypass graft; Z79.82 Long term (current) use of aspirin; Z86.14 Personal history of Methicillin resistant Staphylococcus aureus infection; Z79.4 Long term (current) use of insulin; Z99.3 Dependence on wheelchair; Z82.49 Family history of ischemic heart disease and other diseases of the circulatory system
CPT/HCPCS: 32555; 36415; 36600; 71045; 71250; 76604; 80048; 82150; 82803; 82945; 82962; 83605; 83615; 84157; 84484; 85025; 85027; 85610; 85730; 87015; 87040; 87070; 87075; 87101; 87116; 87205; 87206; 88305; 89050; 93005; 93010; 93306; 94640; 96365; 96375; 99285; J0696; J1644; J1815; J2405; J3490; J7620

== ENCOUNTER → 2019-08-15 | Day surgery (SDC) | payer MEDICARE, OTHER ==
[~2019-08-15] MED LIST changes: +CEFAZOLIN 1 GM/D5W RTU 1 GM/50 ML RTUPB IV ONE; +CEFAZOLIN 1 GM/D5W RTU 1 GM/50 ML RTUPB IV PRN; -VANCOMYCIN HCL 500 MG in NORMAL SALINE 100 ML IV PRN
--- NOTE | 2019-08-15 10:01 | RADIOLOGY REPORT (SQ) ---
EXAM DESCRIPTION: CHEST SINGLE VIEW COMPLETED DATE/TIME: 08/15/2019 9:33 am REASON FOR STUDY: PREOP COMPARISON: CT chest 07/25/2019, Chest film 08/01/2019, 08/02/2019, 07/23/2019, 03/23/2017 EXAM PARAMETERS: NUMBER OF VIEWS: One view. TECHNIQUE: Single frontal radiographic view of the chest acquired. RADIATION DOSE: NA LIMITATIONS: None. FINDINGS: LUNGS AND PLEURA: Small left pleural effusion persists, with left basilar airspace disease atelectasis versus pneumonia. Right lung grossly clear. No pneumothorax MEDIASTINUM AND HILAR STRUCTURES: No masses. Contour normal. HEART AND VASCULAR STRUCTURES: Stable marked cardiomegaly, old sternotomy for CABG BONES: No acute findings. HARDWARE: Left-sided central venous dialysis catheter tip superior vena cava OTHER: No other significant finding. IMPRESSION: Persistent small left pleural effusion with left basilar atelectasis versus pneumonia TECHNICAL DOCUMENTATION: JOB ID: [id number] [employer]- All Rights Reserved Reading location - IP/workstation name: [email or web address]
[2019-08-15 10:22] LABS: HEMATOCRIT 33.4 % (37.9-51.0); HEMOGLOBIN 11.3 g/dL (13.5-17.0); MEAN CORPUSCULAR HEMOGLOBIN 30.7 pg (27.0-33.4); MEAN CORPUSCULAR HGB CONC 33.8 g/dL (32.0-36.0); MEAN CORPUSCULAR VOLUME 91 fl (80-97); PLATELET COUNT 258 10^3/uL (150-450); RED BLOOD COUNT 3.69 10^6/uL (4.35-5.55); RED CELL DISTRIBUTION WIDTH 15.5 % (11.5-14.0); WHITE BLOOD COUNT 7.3 10^3/uL (4.0-10.5)
[2019-08-15 10:41] LABS: ANION GAP 11 (5-19); BLOOD UREA NITROGEN 33 mg/dL (7-20); CALCIUM 8.9 mg/dL (8.4-10.2); CARBON DIOXIDE 27 mmol/L (22-30); CHLORIDE 102 mmol/L (98-107); GLUCOSE 74 mg/dL (75-110); POTASSIUM 4.8 mmol/L (3.6-5.0)
[2019-08-15 13:11] VITALS: BP 159/70
== END ==
LOC: CCL 08:31
PROVIDERS: ATTEND Surgery
DX: T82.518A Breakdown (mechanical) of other cardiac and vascular devices and implants, initial encounter (principal); Z79.899 Other long term (current) drug therapy; X58.XXXA Exposure to other specified factors, initial encounter; J90 Pleural effusion, not elsewhere classified
CPT/HCPCS: 36415; 85027; 80048; 71045; J0690; C1752; Q9967

== ENCOUNTER 2019-08-23 10:20 | Day surgery (SDC) | payer MEDICARE ==
[~2019-08-23 10:20] MED LIST changes: -CEFAZOLIN 1 GM/D5W RTU 1 GM/50 ML RTUPB IV ONE; -CEFAZOLIN 1 GM/D5W RTU 1 GM/50 ML RTUPB IV PRN; +CEFAZOLIN SODIUM 1 GM in DEXTROSE 5%-WATER 50 ML IV PRN
[2019-08-23] MEDS ORDERED: CEFAZOLIN SODIUM 1 GM in DEXTROSE 5%-WATER 50 ML IV PRN (11:10)
[2019-08-23] MEDS ORDERED: MIDAZOLAM 2 MG/2 ML INJ ONE (11:19)
[2019-08-23] MEDS ORDERED: BACITRACIN INJ 50,000 UNIT VIAL ONE (11:19)
[2019-08-23] MEDS ORDERED: FENTANYL CITRATE INJ/PF 100 MCG/2 ML AMPUL ONE (11:19)
[2019-08-23] MEDS ORDERED: LIDOCAINE 0.5% INJ-PF (5 MG/ML) 50 ML SDV ONE ×2 (11:19→12:22)
[2019-08-23 12:53] LABS: HEMATOCRIT 38.3 % (37.9-51.0); HEMOGLOBIN 12.8 g/dL (13.5-17.0); MEAN CORPUSCULAR HEMOGLOBIN 30.6 pg (27.0-33.4); MEAN CORPUSCULAR HGB CONC 33.4 g/dL (32.0-36.0); MEAN CORPUSCULAR VOLUME 92 fl (80-97); RED BLOOD COUNT 4.18 10^6/uL (4.35-5.55); RED CELL DISTRIBUTION WIDTH 16.3 % (11.5-14.0); WHITE BLOOD COUNT 9.1 10^3/uL (4.0-10.5)
[2019-08-23] MEDS ORDERED: VANCOMYCIN HCL 500 MG in DEXTROSE 5%-WATER 100 ML IV ONE (13:00)
[2019-08-23 13:12] LABS: PLATELET COUNT 225 10^3/uL (150-450)
--- NOTE | 2019-08-23 13:33 | Discharge Summary ---
Discharge Summary (SDC) - Discharge Final Diagnosis: #1 malfunctioning PermCath catheter. 2. End-stage renal disease on hemodialysis. 3. Diabetes mellitus. 4. Paraplegia. 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 6. Coronary artery disease. #7 hypertension. Date of Surgery: 08/23/19 Discharge Date: 08/23/19 Condition: Poor Treatment or Instructions: Discharge home [after recovery per ASU criteria]. Diet , [renal],as tolerated, when fully awake advance as tolerated. Activities within moderation encouraged. Follow up in my office by appointment in about [1 week]. Call for appointment. Leave wounds [covered], [keep clean and dry, until office visit in 1 week]. Meds per med rec. May shower [in 48 hrs], [try to keep operated area as dry as possible]. Referrals: KEEGAN MONTENEGRO MD [Primary Care Provider] - Discharge Diet: Other (Comments) - Renal, diabetic. Respiratory Treatments at Home: Deep Breathing/Coughing Discharge Activity: Activity As Tolerated Report the Following to Your Physician Immediately: Shortness of Breath, Increase in Pain
--- NOTE | 2019-08-23 13:37 | PDOC H&P ---
General Chief Complaint: This patient was admitted for replacement of his permacatheter which is malfunctioning. - Diagnosis (1) ESRD on hemodialysis Is this a Current Diagnosis?: Yes (2) Coronary artery disease Is this a Current Diagnosis?: Yes (3) Diabetes mellitus, type II Is this a Current Diagnosis?: Yes (4) Hypertension Is this a Current Diagnosis?: Yes (5) VRE (vancomycin resistant enterococcus) culture positive Is this a Current Diagnosis?: Yes - Current Medications/Allergies Home Medications: Ascorbate Calcium [Vitamin C] 500 mg PO DAILY 07/23/19 Aspirin [Ecotrin 81 mg EC Tablet] 81 mg PO DAILY 07/23/19 Atorvastatin Calcium [Lipitor 20 mg Tablet] 20 mg PO DAILY 07/23/19 Clopidogrel Bisulfate [Plavix 75 mg Tablet] 75 mg PO DAILY 07/23/19 Ergocalciferol (Vitamin D2) [Drisdol 50,000 unit (1.25MG) Capsule] 50,000 unit PO FR@1000 07/23/19 Iron 130 mg PO DAILY 07/23/19 Isosorbide Mononitrate [Imdur 30 mg Tablet.er] 30 mg PO DAILY 07/23/19 Lisinopril [Zestril] 5 mg PO DAILY 07/23/19 Ranitidine HCl [Zantac] 150 mg PO DAILY 07/23/19 Sevelamer Carbonate [Renvela] 1,600 mg PO TID 07/23/19 Tamsulosin HCl [Flomax] 0.4 mg PO DAILY 07/23/19 Vitamin B Complex/Folic Acid [B-Complex Tablet] 0.4 mg PO DAILY 07/23/19 Allergies/Adverse Reactions: No Known Allergies Allergy (Verified 08/23/19 11:40) Past Medical History Cardiac Medical History: Reports: Congestive Heart Failure, Coronary Artery Disease, Myocardial Infarction, Hyperlipidema Denies: Hypertension Pulmonary Medical History: Reports: Asthma, Bronchitis, Intubation, Pneumonia, Respiratory Failure, Sleep Apnea - On C Pap Denies: Chronic Obstructive Pulmonary Disease (COPD) Neurological Medical History: Denies: Seizures Endocrine Medical History: Reports: Diabetes Mellitus Type 1, Diabetes Mellitus Type 2 Renal/ Medical History: Reports: End Stage Renal Disease GI Medical History: Reports: Gastroesophageal Reflux Disease Musculoskeltal Medical History: Reports: Arthritis Psychiatric Medical History: Denies: Depression - anxiety Hematology: Denies: Anemia Infectious Medical History: Reports: Clostridium Difficile Past Surgical History Past Surgical History: Reports: Cardiac Catheterization, Coronary Artery Bypass Graft - Quadruple bypass 2007, Vascular Surgery - left AV fistual, Other - History peritoneal dialysis catheter placement and removal Family History Family History: CAD Parental Family History Reviewed: No Children Family History Reviewed: No Sibling(s) Family History Reviewed.: No Social History Smoking Status: Former Smoker Frequency of Alcohol Use: None Hx Recreational Drug Use: No Drugs: None Hx Prescription Drug Abuse: No Physical Exam Vital Signs: Temp Pulse Resp BP Pulse Ox 97.8 F 75 16 92/66 L 94 08/23/19 11:42 08/23/19 11:42 08/23/19 11:42 08/23/19 11:42 08/23/19 11:42 Intake & Output 08/22/19 08/23/19 08/24/19 06:59 06:59 06:59 Weight 58.967 kg Additional comments: Constitutional: Well-developed well-nourished -[place]egalese gentleman. No apparent acute distress. Eyes: Mucous membranes pink and moist, pupils equal and reactive to light. Conjunctiva normal. Cornea normal. ENT: Hearing grossly normal. External pinna normal to inspection. Teeth intact. Tongue normal to inspection. Cardiac: Heart sounds 1 and 2 normal, no murmurs. Chest: Left-sided PermCath in place. Respiratory: breath sounds are present bilaterally, normal. Normal respiratory effort. Psychiatric: Judgment, memory, insight seem normal. Mood is pleasant and appropriate. Extremities: Upper extremities show much reduced range of movement. Pulses present noted to the radial arteries. Capillary refill normal. No cyanosis noted. Muscle wasting noted. Lower extremities show paralysis. Impression/Plan Plan: The plan in this patient who is now catheter dependent is to remove the old catheter and to replace it with a new permacatheter. Quite significant precautions are being taken to reduce the risk of complications, particularly infection of this carlos catheter. He has used chlorhexidine wipes to the area for 3 days and he is given vancomycin and Ancef and of course of normal intraoperative sterile procedures. The risks would include infection, bleeding, heart, lung complications, injury to other structures. His questions and concerns are addressed, he knows what to expect and wishes to proceed.
[2019-08-23 14:45] VITALS: BP 128/80
--- NOTE | 2019-08-23 15:40 | Operative Report ---
Operative Report DATE OF SURGERY: 08/23/19 PREOPERATIVE DIAGNOSIS: #1 malfunctioning PermCath catheter. 2. End-stage rocio al disease on hemodialysis. 3. Diabetes mellitus. 4. Paraplegia. 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 6. Coronary artery disease. #7 hypertension. POSTOPERATIVE DIAGNOSIS: #1 malfunctioning PermCath catheter. 2. End-stage renal disease on hemodialysis. 3. Diabetes mellitus. 4. Paraplegia. 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 6. Coronary artery disease. #7 hypertension. OPERATION: 1. Replacement of left internal jugular permacatheter with a new catheter. 2. Removal of old PermCath catheter. SURGEON: KATHERINE ROLON POLICY SERVICES REPRESENTATIVE: None. ANESTHESIA: Moderate Sedation TISSUE REMOVED OR ALTERED: Not applicable. COMPLICATIONS: None. ESTIMATED BLOOD LOSS: 5 mL. INTRAOPERATIVE FINDINGS: Of a well founded left-sided permacatheter. Malfunctioning. Satisfactory access gain into the central system using the proximal portion of the catheter which was discarded, a new catheter was placed through a separate incisional site using the same left internal jugular access. The procedure was challenging as the first catheter use utilized at the neck and proved impossible to function. This was replaced with a second catheter tunneled adjacent to it and this worked fine. PROCEDURE: After obtaining informed consent, the patient was taken to the [Marketing And Promotions Manager] and positioned supine. The left neck and chest were prepared with chlorhexidine and draped out with sterile linen. After the " universal timeout", in which it was verified that the patient continued to receive antibiotic, the procedure commenced. Local anesthesia was infiltrated and a transverse incision made over the existing catheter low in the left neck. Dissection proceeded through this bluntly with a hemostat to recover the catheter. The catheter was transected and the proximal portion replaced with a 0.035 Glidewire. This this was passed stone, tip of which was placed down into the inferior vena cava . A 32 cm long PermCath was now positioned over the chest and an exit site marked and locally anesthetized ,the catheter was placed between the 2 incisions. Proximally, the catheter was now positioned using a peel-away sheath. The tunneled the new catheter was positioned over the Glidewire and through the sheath, after dilation. The catheter was now manipulated for optimal function. The tip was held up but would not go into the right atrium and there was no easy egress of blood. At this point it was decided to replace his catheter. It was transected and the proximal portion replaced with a 0.035 Glidewire followed by the introducer sheath. A fresh 32 cm PermCath was now placed through the new entry site and positioned through the sheath and over the Glidewire. Judicious manipulation allowed this catheter position so that its tip was well down in the right atrium, actually of the right atrial inferior vena cava junction. Easy ingress of heparinized solution and egress of blood obtained through both ports. A completion angiogram was done by injecting contrast. The findings were as dictated. The neck incision was now closed using interrupted 3-0 PDS to the subcutaneous tissues, the catheter was anchored at the exit site using 3-0 PDS. A Biopatch device was now placed adjacent to the catheter. Dressings were applied and the procedure concluded. Local anesthesia was infiltrated in the skin and subcutaneous tissues around the old catheter and the catheter dissected away from the subcutaneous tissues, removed and discarded. Dressings applied. Exposure time: [2.3 minutes]. Exposure: 10.5 to Marianne kruse. Contrast amount: [5 mL] of [id number] low osmolality. Copies of the dictated operative report for Dr. Katherine Pacheco MD.concluded. Copies of the dictated operative report for Dr. Katherine Pacheco MD.
--- NOTE | 2019-08-23 15:42 | RADIOLOGY REPORT (SQ) ---
EXAM DESCRIPTION: TUNNELED CENTRAL LINE; GUIDANCE FLUOROSCOPIC COMPLETED DATE/TIME: 08/23/2019 2:53 pm REASON FOR STUDY: T82.518A T82.858A STENOSIS OF OTHER VASCULAR PROSTH DEV/GRFT, INIT COMPARISON: None. FLUOROSCOPY TIME: 2.3 minutes Spot images saved to PACS. TECHNIQUE: Intra-operative images acquired during surgical procedure to evaluate progress. NUMBER OF IMAGES: 35 LIMITATIONS: None. FINDINGS: Fluoroscopy was provided for intraoperative procedure. Please refer to the operative repo rt for further discussion. IMPRESSION: IMAGE(S) OBTAINED DURING PROCEDURE. COMMENT: Quality ID [id number]: Final reports for procedures using fluoroscopy that document radiation exp osure indices, or exposure time and number of fluorographic images (if radiation exposure indices are not available) Please consult full operative report of the attending physician for description of the procedure. TECHNICAL DOCUMENTATION: JOB ID: [id number] [employer]- All Rights Reserved Reading location - IP/workstation name: [email or web address]
--- NOTE | 2019-08-23 15:42 | RADIOLOGY REPORT (SQ) ---
EXAM DESCRIPTION: TUNNELED CENTRAL LINE; GUIDANCE FLUOROSCOPIC COMPLETED DATE/TIME: 08/23/2019 2:53 pm REASON FOR STUDY: T82.518A T82.858A STENOSIS OF OTHER VASCULAR PROSTH DEV/GRFT, INIT COMPARISON: None. FLUOROSCOPY TIME: 2.3 minutes Spot images saved to PACS. TECHNIQUE: Intra-operative images acquired during surgical procedure to evaluate progress. NUMBER OF IMAGES: 35 LIMITATIONS: None. FINDINGS: Fluoroscopy was provided for intraoperative procedure. Please refer to the operative repo rt for further discussion. IMPRESSION: IMAGE(S) OBTAINED DURING PROCEDURE. COMMENT: Quality ID [id number]: Final reports for procedures using fluoroscopy that document radiation exp osure indices, or exposure time and number of fluorographic images (if radiation exposure indices are not available) Please consult full operative report of the attending physician for description of the procedure. TECHNICAL DOCUMENTATION: JOB ID: [id number] [employer]- All Rights Reserved Reading location - IP/workstation name: [email or web address]
--- NOTE | 2019-08-23 15:44 | RADIOLOGY REPORT (SQ) ---
EXAM DESCRIPTION: REMOVAL CENTRAL TUNNELED LINE COMPLETE DATE/TIME: 08/23/2019 2:53 pm REASON FOR STUDY: REMOVAL OF PERM CATH T82.858A STENOSIS OF OTHER VASCULAR PROSTH DEV/GRFT, INIT FINDINGS: Please see combined report for performance of procedure and radiologic supervision and int erpretation. IMPRESSION: Please see combined report for performance of procedure and radiologic supervision and i nterpretation. Reading location - IP/workstation name: [email or web address]
== END 2019-08-23 14:30 | disposition home or self-care (01) ==
LOC: CCL 10:20
PROVIDERS: ATTEND Surgery
DX: T82.858A Stenosis of other vascular prosthetic devices, implants and grafts, initial encounter (principal); Y83.2 Surgical operation with anastomosis, bypass or graft as the cause of abnormal reaction of the patient, or of later complication, without mention of misadventure at the time of the procedure; E10.22 Type 1 diabetes mellitus with diabetic chronic kidney disease; I13.2 Hypertensive heart and chronic kidney disease with heart failure and with stage 5 chronic kidney disease, or end stage renal disease; N18.6 End stage renal disease; I50.9 Heart failure, unspecified; I25.10 Atherosclerotic heart disease of native coronary artery without angina pectoris; E73.9 Lactose intolerance, unspecified; G82.20 Paraplegia, unspecified; B95.2 Enterococcus as the cause of diseases classified elsewhere; J44.9 Chronic obstructive pulmonary disease, unspecified; K21.9 Gastro-esophageal reflux disease without esophagitis; Z22.8 Carrier of other infectious diseases; Z79.82 Long term (current) use of aspirin; Z79.899 Other long term (current) drug therapy; Z87.891 Personal history of nicotine dependence
CPT/HCPCS: 36415; 85027; 36589; 36558; 77001; C1769; Q9967; J2250; J3490 ×2; J0690; J3010; J3370; J7060 ×2; J1644; 36581

== ENCOUNTER 2019-09-06 15:23 | Day surgery (SDC) | payer MEDICARE ==
[~2019-09-06 15:23] MED LIST changes: -CEFAZOLIN SODIUM 1 GM in DEXTROSE 5%-WATER 50 ML IV PRN; +DIPHENHYDRAMINE HCL 50 MG/ML VIAL ONE; +EPINEPHRINE INJ 1 MG/10 ML DISP.SYRIN ONE; +FENTANYL CITRATE INJ/PF 100 MCG/2 ML AMPUL ONE; +FLUMAZENIL INJ 0.5 MG/5 ML VIAL ONE; +GLUCAGON,HUMAN RECOMB 1 MG INJ ONE; +MIDAZOLAM 2 MG/2 ML INJ ONE; +NALOXONE HCL INJ/PF 0.4 MG/1 ML SDV ONE; +ONDANSETRON HCL INJ/PF 4 MG/2 ML SDV ONE
--- NOTE | 2019-09-06 17:58 | Operative Report ---
Operative Report DATE OF SURGERY: 09/06/19 Operative Report: Pre-op diagnosis: Dysphagia and reflux disease Post-op diagnosis: Normal Surgery: Esophagogastroduodenoscopy with biopsy Medications: Versed 1.5mg Fentanyl 50mcg IV push Tissue removed: Antral and gastric body biopsy for pathology Procedure: After informed consent obtained from patient, the throat was sprayed with Hurricane and conscious sedation was achieved. The upper endoscope was inserted into the esophagus under direct vision and advanced into the stomach. The duodenum was entered and examined to the second part. Endoscope was then slowly pulled out of the patient as the mucosa was examined into details. Patient tolerated procedure well. Findings Esophagus: Normal Z-line at: 40 cm Antrum: Normal Body: Normal Fundus: Normal Duodenum first part: Normal Duodenum second part: Normal Plan: Await pathology OPERATION: EGD with biopsy
[2019-09-06 19:13] VITALS: BP 108/44
== END 2019-09-06 19:00 | disposition home or self-care (01) ==
LOC: END 15:23
PROVIDERS: ATTEND Internal Medicine Gastroenterology
DX: K29.50 Unspecified chronic gastritis without bleeding (principal); K21.9 Gastro-esophageal reflux disease without esophagitis; R13.10 Dysphagia, unspecified; Z79.02 Long term (current) use of antithrombotics/antiplatelets; I25.10 Atherosclerotic heart disease of native coronary artery without angina pectoris; E78.00 Pure hypercholesterolemia, unspecified; E11.9 Type 2 diabetes mellitus without complications; G61.0 Guillain-Barre syndrome; I11.0 Hypertensive heart disease with heart failure; I25.2 Old myocardial infarction; E11.22 Type 2 diabetes mellitus with diabetic chronic kidney disease; Z79.4 Long term (current) use of insulin
CPT/HCPCS: 43239; 82962; 88342 ×2; 88305 ×2; J2250; J3010; J0171; J1200; J1610; J2310; J2405; J3490

== ENCOUNTER 2019-09-07 07:40 | Emergency (ER) | payer MEDICARE ==
[2019-09-07] MEDS ORDERED: NORMAL SALINE 1000 ML 1,000 ML IV ONE (08:14)
[2019-09-07 09:29] LABS: ABSOLUTE BASOPHILS # (AUTO) 0.1 10^3/uL (0.0-0.2); ABSOLUTE EOSINOPHILS # (AUTO) 0.2 10^3/uL (0.0-0.6); ABSOLUTE LYMPHOCYTES (AUTO) 3.5 10^3/uL (0.5-4.7); ABSOLUTE MONOCYTES (AUTO) 0.8 10^3/uL (0.1-1.4); ABSOLUTE NEUT (AUTO) 3.6 10^3/uL (1.7-8.2); EOSINOPHILS % (AUTO) 2.9 % (0-6); HEMATOCRIT 41.3 % (37.9-51.0); HEMOGLOBIN 13.6 g/dL (13.5-17.0); LYMPHOCYTES % (AUTO) 42.1 % (13-45); MEAN CORPUSCULAR HEMOGLOBIN 30.3 pg (27.0-33.4); MEAN CORPUSCULAR HGB CONC 32.9 g/dL (32.0-36.0); MEAN CORPUSCULAR VOLUME 92 fl (80-97); MONOCYTES % (AUTO) 10.2 % (3-13); PLATELET COUNT 295 10^3/uL (150-450); RED BLOOD COUNT 4.49 10^6/uL (4.35-5.55); RED CELL DISTRIBUTION WIDTH 18.2 % (11.5-14.0); SEGMENTED NEUTROPHILS % (AUTO) 43.8 % (42-78); TOTAL CELLS COUNTED % (AUTO) 100 %; WHITE BLOOD COUNT 8.2 10^3/uL (4.0-10.5)
--- NOTE | 2019-09-07 09:59 | EKG REPORT ---
SEVERITY:- ABNORMAL ECG - SINUS RHYTHM FIRST DEGREE AV BLOCK PROBABLE LEFT ATRIAL ABNORMALITY LEFT VENTRICULAR HYPERTROPHY INFERIOR INFARCT, AGE INDETERMINATE ANTEROLATERAL INFARCT, AGE INDETERMINATE : Confirmed by: Samia Roper MD 07-Sep-2019 09:58:18
[2019-09-07 11:34] LABS: ALBUMIN 3.6 g/dL (3.5-5.0); ALKALINE PHOSPHATASE 118 U/L (38-126); ANION GAP 16 (5-19); ASPARTATE AMINO TRANSFERASE 31 U/L (17-59); BILIRUBIN,DIRECT 0.6 mg/dL (0.0-0.4); BILIRUBIN,TOTAL 0.7 mg/dL (0.2-1.3); BLOOD UREA NITROGEN 28 mg/dL (7-20); CALCIUM 9.7 mg/dL (8.4-10.2); CARBON DIOXIDE 18 mmol/L (22-30); CHLORIDE 109 mmol/L (98-107); TOTAL PROTEIN 8.3 g/dL (6.3-8.2)
[2019-09-07 11:36] LABS: GLUCOSE 58 mg/dL (75-110)
--- NOTE | 2019-09-07 12:31 | ER Document Report ---
ED General - General Chief Complaint: Diarrhea Stated Complaint: DIARRHEA Time Seen by Provider: 09/07/19 07:58 Primary Care Provider: KEEGAN MONTENEGRO MD [Primary Care Provider] - Follow up as needed Mode of Arrival: Medic Information source: Patient TRAVEL OUTSIDE OF THE [place] IN LAST 30 DAYS: No - HPI Notes: Patient is brought in for diarrhea. Patient states this started yesterday. He states it started right before he was been have an upper GI study by Dr. Dos Santos. He states the upper GI study went well and Dr. Christie, he did not see any abnormalities. He states that the diarrhea though has continued. He states he has had multiple episodes. He denies any significant abdominal pain. He has had some mild weakness. He states he was supposed to go to dialysis today but because of the diarrhea came to the emergency department. He has tried 1 dose of Imodium with no relief. No blood in the stool. No vomiting. Patient does have a history of C. difficile and VRE in the past. He states he was last on antibiotics 2 to 3 weeks ago which was Keflex. Patient symptoms been intermittent. Nothing makes them better or worse. There is no known radiation of the symptoms. They have been mild to moderate. - Related Data Allergies/Adverse Reactions: No Known Allergies Allergy (Verified 09/06/19 16:24) Past Medical History - General Information source: Patient - Social History Smoking Status: Former Smoker Chew tobacco use (# tins/day): No Frequency of alcohol use: None Drug Abuse: None Family History: Reviewed & Not Pertinent, CAD Patient has suicidal ideation: No Patient has homicidal ideation: No - Past Medical History Cardiac Medical History: Reports: Hx Congestive Heart Failure, Hx Coronary Artery Disease, Hx Heart Attack, Hx Hypercholesterolemia Denies: Hx Hypertension Pulmonary Medical History: Reports: Hx Asthma, Hx Bronchitis, Hx Pneumonia, Hx Intubation, Hx Respiratory Failure, Hx Sleep Apnea - On C Pap Denies: Hx COPD Neurological Medical History: Denies: Hx Cerebrovascular Accident, Hx Seizures Endocrine Medical History: Reports: Hx Diabetes Mellitus Type 1, Hx Diabetes M ellitus Type 2 Renal/ Medical History: Reports: Hx End Stage Renal Disease, Hx Hemodialysis GI Medical History: Reports: Hx Gastroesophageal Reflux Disease Musculoskeletal Medical History: Reports Hx Arthritis Psychiatric Medical History: Denies: Hx Depression - anxiety Infectious Medical History: Reports: Hx C-Diff Past Surgical History: Reports: Hx Cardiac Catheterization, Hx Cardiac Surgery - bipass x4, Hx Coronary Artery Bypass Graft - Quadruple bypass 2007, Hx Kidney (Renal Surgery) - RENAL TRANSPLANT, Hx Vascular Surgery - left AV fistual, Other - History peritoneal dialysis catheter placement and removal - Immunizations Immunizations up to date: Yes Hx Diphtheria, Pertussis, Tetanus Vaccination: No Hx Pneumococcal Vaccination: 08/16/16 Review of Systems - Review of Systems Constitutional: Malaise, Weakness Cardiovascular: denies: Chest pain, Palpitations Respiratory: denies: Cough, Short of breath Gastrointestinal: Diarrhea. denies: Vomiting -: Yes All other systems reviewed and negative Physical Exam - Vital signs Vitals: Resp BP 16 98/54 L 09/07/19 07:46 09/07/19 07:46 Interpretation: Normal - General General appearance: Appears well, Alert - HEENT Head: Normocephalic, Atraumatic Eyes: Normal Pupils: PERRL - Respiratory Respiratory status: No respiratory distress Chest status: Nontender Breath sounds: Normal Chest palpation: Normal - Cardiovascular Rhythm: Regular Heart sounds: Normal auscultation Murmur: No - Abdominal Inspection: Normal Distension: No distension Bowel sounds: Normal Tenderness: Nontender Organomegaly: No organomegaly - Back Back: Normal, Nontender - Extremities General upper extremity: Normal inspection, Nontender, Normal color, Normal ROM, Normal temperature General lower extremity: Normal inspection, Nontender, Normal color, Normal ROM, Normal temperature, Normal weight bearing. No: Mariama's sign - Neurological Neuro grossly intact: Yes Cognition: Normal Orientation: AAOx4 [place] Coma Scale Eye Opening: Spontaneous Dominic Coma Scale Verbal: Oriented [place] Coma Scale Motor: Obeys Commands Dominic Coma Scale Total: 15 Speech: Normal Motor strength normal: LUE, RUE, LLE, RLE Sensory: Normal - Psychological Associated symptoms: Normal affect, Normal mood - Skin Skin Temperature: Warm Skin Moisture: Dry Skin Color: Normal Course - Re-evaluation Re-evalutation: 09/07/19 12:28 Patient presents with approximately 24 hours of diarrhea. He did have one loose stool here that was green. But there is been no blood in it. Patient's initial blood pressure was 98 systolic. I gave the patient 500 of normal saline IV. His blood pressure is now 140 systolic. He has never been tachycardic. He has never had any shortness of breath or labored respirations. Patient has had C. difficile several times in the past and has been on antibiotics in the last month. The C. difficile test is currently pending. I did discuss the case with the patient's lithographic printing machinist. I have been asked to place the patient on Flagyl and have him go to [facility] for dialysis today. We are currently arranging for this to happen. I have asked that the patient have his primary doctor recheck him in 2 to 3 days. I am also going to have the patient continue to use his Imodium at home which she has been instructed to do. He states that he can use Imodium and does have more of it. Patient's lithographic printing machinist also said that patient's blood pressure usually runs on the lower side. - Vital Signs Vital signs: Temp Pulse Resp BP Pulse Ox 98.1 F 13 143/62 H 97 09/07/19 09:30 09/07/19 11:00 09/07/19 10:46 09/07/19 11:00 - Laboratory Result Diagrams: 09/07/19 09:10 09/07/19 10:54 Laboratory results interpreted by me: 09/07/19 09/07/19 09:10 10:54 RDW 18.2 H Chloride 109 H Carbon Dioxide 18 L BUN 28 H Creatinine 4.95 H Est GFR ( Amer) 14 L Est GFR (MDRD) Non-Af 12 L Glucose 58 L Direct Bilirubin 0.6 H Total Protein 8.3 H - EKG Interpretation by Me EKG shows normal: Sinus rhythm Rate: Normal - 74 Rhythm: NSR Voltage: Consistant with LVH Heart block present: 1st Degree Discharge - Discharge Clinical Impression: Chronic renal failure, stage 4 (severe) Diarrhea Qualifiers: Diarrhea type: unspecified type Qualified Code(s): R19.7 - Diarrhea, unspecified Condition: Stable Disposition: HOME, SELF-CARE Instructions: Diarrhea, Nonspecific ([facility]) Additional Instructions: Please call your primary doctor or lithographic printing machinist as soon as possible to arrange follow-up. You may use Imodium as needed. Do not take more than 4 imodium tablets per day Prescriptions: Metronidazole [Flagyl 500 mg Tablet] 500 mg PO BID 10 Days #20 tablet Referrals: KEEGAN MONTENEGRO MD [Primary Care Provider] - Follow up tomorrow Goyo ZIMMERMAN MD [ACTIVE STAFF] - Follow up tomorrow
[2019-09-07 12:54] VITALS: BP 143/60
[2019-09-07 14:47] LABS: C DIFFICILE GDH NEGATIVE (NEGATIVE)
== END 2019-09-07 13:50 | disposition home or self-care (01) ==
LOC: ER 07:40
DX: R19.7 Diarrhea, unspecified (principal); R53.1 Weakness; R53.81 Other malaise; I44.0 Atrioventricular block, first degree; I25.10 Atherosclerotic heart disease of native coronary artery without angina pectoris; E11.22 Type 2 diabetes mellitus with diabetic chronic kidney disease; N18.4 Chronic kidney disease, stage 4 (severe); Z99.2 Dependence on renal dialysis; J45.909 Unspecified asthma, uncomplicated; Z87.891 Personal history of nicotine dependence; Z95.1 Presence of aortocoronary bypass graft; Z94.0 Kidney transplant status
CPT/HCPCS: 93005; 36415; 82962; 85025; 80053; 87324; 87449; 93010; J7030; 96360; 99284

== ENCOUNTER 2019-09-12 08:38 | Emergency (ER) | payer OTHER, MEDICARE ==
[2019-09-12 09:02] LABS: ABSOLUTE BASOPHILS # (AUTO) 0.1 10^3/uL (0.0-0.2); ABSOLUTE EOSINOPHILS # (AUTO) 0.5 10^3/uL (0.0-0.6); ABSOLUTE LYMPHOCYTES (AUTO) 3.9 10^3/uL (0.5-4.7); ABSOLUTE MONOCYTES (AUTO) 0.8 10^3/uL (0.1-1.4); ABSOLUTE NEUT (AUTO) 4.5 10^3/uL (1.7-8.2); BASOPHILS % (AUTO) 0.9 % (0-2); HEMATOCRIT 40.1 % (37.9-51.0); LYMPHOCYTES % (AUTO) 40.2 % (13-45); MEAN CORPUSCULAR HEMOGLOBIN 30.8 pg (27.0-33.4); MEAN CORPUSCULAR HGB CONC 32.5 g/dL (32.0-36.0); MEAN CORPUSCULAR VOLUME 95 fl (80-97); PLATELET COUNT 230 10^3/uL (150-450); RED BLOOD COUNT 4.24 10^6/uL (4.35-5.55); RED CELL DISTRIBUTION WIDTH 17.5 % (11.5-14.0); SEGMENTED NEUTROPHILS % (AUTO) 45.9 % (42-78); TOTAL CELLS COUNTED % (AUTO) 100 %; WHITE BLOOD COUNT 9.7 10^3/uL (4.0-10.5)
[2019-09-12 09:26] LABS: ALBUMIN 3.4 g/dL (3.5-5.0); ALKALINE PHOSPHATASE 95 U/L (38-126); ANION GAP 11 (5-19); ASPARTATE AMINO TRANSFERASE 31 U/L (17-59); BILIRUBIN,DIRECT 0.5 mg/dL (0.0-0.4); BILIRUBIN,TOTAL 0.7 mg/dL (0.2-1.3); BLOOD UREA NITROGEN 29 mg/dL (7-20); CARBON DIOXIDE 22 mmol/L (22-30); CHLORIDE 107 mmol/L (98-107); CREATINE KINASE 73 U/L (55-170); GLUCOSE 124 mg/dL (75-110); POTASSIUM 4.6 mmol/L (3.6-5.0); TOTAL PROTEIN 8.1 g/dL (6.3-8.2)
[2019-09-12 09:38] LABS: CREATINE KINASE MB 6.45 ng/mL (<4.55)
[2019-09-12 09:46] LABS: TROPONIN I 0.111 ng/mL
--- NOTE | 2019-09-12 10:02 | ER Document Report ---
ED Syncope and Near Syncope - General Chief Complaint: Syncope Stated Complaint: POSSIBLE SYNCOPE EPISODE Time Seen by Provider: 09/12/19 09:22 Primary Care Provider: KEEGAN GIRARD MD [Primary Care Provider] - Follow up as needed Notes: Patient is a dialysis patient, Thursday, Thursday, and Thursday, who was preparing to go to dialysis this morning when he had what is described by his is being a syncopal episode. She says that he was about to brush his teeth when he started having coughing and sounded as if he was trying to vomit although he never did. He asked his to call 911 and he was passing out. He stopped breathing, according to the who performed CPR. She said his eyes rolled back in his head. He was making sounds in the back of his throat. He was out of it and unresponsive. EMS arrived and put the patient on oxygen any began to come around. He continued to have some coughing. Upon arrival here, says that he is seem to be confused. She says that he also said he had a slight headache earlier. 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 Therefore, he is unable to walk. He can move his arms normally. Has a history of a stroke that affected his left side several years ago but is not left with any residual symptoms from that event. TRAVEL OUTSIDE OF THE [place] IN LAST 30 DAYS: No - Related Data Allergies/Adverse Reactions: No Known Allergies Allergy (Verified 09/06/19 16:24) Past Medical History - Social History Smoking Status: Unknown if Ever Smoked Family History: Reviewed & Not Pertinent, CAD Patient has suicidal ideation: No Patient has homicidal ideation: No - Past Medical History Cardiac Medical History: Reports: Hx Congestive Heart Failure, Hx Coronary Artery Disease, Hx Heart Attack, Hx Hypercholesterolemia Pulmonary Medical History: Reports: Hx Asthma, Hx Bronchitis, Hx Pneumonia, Hx Intubation, Hx Respiratory Failure, Hx Sleep Apnea - On C Pap Neurological Medical History: Reports: Other - History of Shani Ventura syndrome Endocrine Medical History: Reports: Hx Diabetes Mellitus Type 1, Hx Diabetes Mellitus Type 2 Renal/ Medical History: Reports: Hx End Stage Renal Disease, Hx Hemodialysis GI Medical History: Reports: Hx Gastroesophageal Reflux Disease Musculoskeletal Medical History: Reports Hx Arthritis Psychiatric Medical History: Denies: Hx Depression - anxiety Infectious Medical History: Reports: Hx C-Diff Past Surgical History: Reports: Hx Cardiac Catheterization, Hx Cardiac Surgery - bipass x4, Hx Coronary Artery Bypass Graft - Quadruple bypass 2008, Hx Kidney (Renal Surgery) - RENAL TRANSPLANT, Hx Vascular Surgery - left AV fistual, Other - History peritoneal dialysis catheter placement and removal - Immunizations Immunizations up to date: Yes Hx Diphtheria, Pertussis, Tetanus Vaccination: No Hx Pneumococcal Vaccination: 08/16/16 Review of Systems - Review of Systems Notes: REVIEW OF SYSTEMS: CONSTITUTIONAL : Denies fever. EENT: Denies eye, ear, nose or mouth or throat pain or other symptoms. CARDIOVASCULAR: Denies chest pain. RESPIRATORY: See HPI. GASTROINTESTINAL: Nauseated but not vomiting. Denies abdominal pain. GENITOURINARY: Dialysis patient, does not make urine. MUSCULOSKELETAL: Denies back or neck pain. Denies joint pain or swelling. Wasted lower extremities bilaterally. Apparently secondary to his history of Guyon Ventura syndrome. SKIN: Denies rash or skin lesions. NEUROLOGICAL: Denies LOC or altered mental status. Had a slight headache earlier at home, but none here at this time.. Denies sensory loss or motor deficits. ALL OTHER SYSTEMS REVIEWED AND NEGATIVE. Physical Exam - Vital signs Vitals: Resp 32 H 09/12/19 08:46 Interpretation: No: Hypoxic Notes: PHYSICAL EXAMINATION: GENERAL: Well-appearing, in no acute distress. HEAD: Atraumatic, normocephalic. EYES: Pupils equal round and reactive to light, extraocular movements intact. ENT: oropharynx clear without exudates. Moist mucous membranes. NECK: Normal range of motion, supple. LUNGS: Breath sounds clear and equal bilaterally. HEART: Regular rate and rhythm without murmurs. ABDOMEN: Soft, nontender. No guarding or rebound. No masses. BACK: No tenderness throughout entire back. EXTREMITIES: Lower extremities show muscular wasting bilaterally. Probably r elated to the patient's Guyon Ventura syndrome. NEUROLOGICAL: Normal speech, unable to walk. Otherwise awake, alert, and oriented x3. PSYCH: Normal mood, normal affect. SKIN: Warm, dry, no rashes. Course - Re-evaluation Re-evalutation: 09/12/19 17:23 Patient's first EKG looks like a wenkebach block with a ventricular rate of 87. I spoke with bakery technician, Dr. Roper, feels the patient is to be transferred to another facility for electrophysiology evaluation and to determine if the patient needs a another cardiac cath. Dr. Girard, the patient's primary care provider, who provider recommended following Dr. Roper's advice. I spoke with Dr. Lazo, bakery technician who has seen this patient recently and he was hopeful we might be able to keep the patient here. However, patient's second troponin went from 0.11 to 0.225 and it was felt the patient is to go where his there are capabilities for cardiac cath. I spoke with , bakery technician at [facility] who was agreeable to the patient being transferred, but recommended that we speak with hospitalist to admit the patient. I then spoke with Dr. Barriga, who accepted the patient for transfer. Patient was in the process of receiving dialysis here in the emergency department prior to being transferred when his blood pressure became low and his heart rate slowed down to a bradycardia of 47. The morphology of the QRS complexes did not change significantly. Dr. Tavares recommended stopping the patient's dialysis and giving some saline to elevate his blood pressure. Pressure has now come up to 140's systolic. Patient is awake and alert. Patient has a bed assignment. Its been agreed that patient will be transported to [facility] by helicopter. Third troponin came back on the patient at 0.315. Repeat EKG shows a sinus bradycardia with a heart rate of 47. - Vital Signs Vital signs: Temp Pulse Resp BP Pulse Ox 97.8 F 26 H 137/68 H 100 09/12/19 17:36 09/12/19 17:36 09/12/19 17:36 09/12/19 17:36 - Laboratory Result Diagrams: 09/12/19 08:50 09/12/19 08:50 Laboratory results interpreted by me: 09/12/19 09/12/19 09/12/19 08:50 08:50 08:50 RBC 4.24 L Hgb 13.0 L RDW 17.5 H BUN 29 H Creatinine 5.28 H Est GFR ( Amer) 13 L Est GFR (MDRD) Non-Af 11 L Glucose 124 H Direct Bilirubin 0.5 H CK-MB (CK-2) 6.45 H Albumin 3.4 L - Diagnostic Test Radiology reviewed: Image reviewed, Reports reviewed Radiology results interpreted by me: 09/12/19 17:35 Chest x-ray shows bibasilar opacities consistent with fluid, atelectasis, or consolidation. - EKG Interpretation by Me Rate: Tachycardia Voltage: Consistant with LVH Additional EKG results interpreted by me: 09/12/19 17:36 Patient EKG shows a Wenckebach block rhythm. Heart rate 87. Nonspecific ST changes in the precordial leads. No STEMI. Critical Care Note - Critical Care Note Total time excluding time spent on procedures (mins): 45 Discharge - Discharge Clinical Impression: Syncope, Wenckebach block, Renal failure Condition: Stable Disposition: Critical Access Hospital Referrals: KEEGAN GIRARD MD [Primary Care Provider] - Follow up as needed
--- NOTE | 2019-09-12 10:26 | EKG REPORT ---
SEVERITY:- ABNORMAL ECG - SINUS RHYTHM WITH SECOND DEGREE MOBITZ I AVB. LEFT VENTRICULAR HYPERTROPHY INFERIOR INFARCT, OLD ANTEROLATERAL INFARCT, OLD : Confirmed by: Kevon Madison MD 12-Sep-2019 10:25:40
--- NOTE | 2019-09-12 11:06 | RADIOLOGY REPORT (SQ) ---
EXAM DESCRIPTION: CHEST SINGLE VIEW COMPLETED DATE/TIME: 09/12/2019 10:53 am REASON FOR STUDY: Cough and congestion and syncope COMPARISON: AP view of the chest from 08/15/2019. EXAM PARAMETERS: NUMBER OF VIEWS: One view. TECHNIQUE: Single frontal radiographic view of the chest acquired. RADIATION DOSE: NA LIMITATIONS: None. FINDINGS: LUNGS AND PLEURA: Bibasilar, left greater than right, pleural and parenchymal opacities th at obscure the contours of hemidiaphragms and blunt the costophrenic sulci. There is no pneumothorax . MEDIASTINUM AND HILAR STRUCTURES: Stable mediastinal and hilar contours. HEART AND VASCULAR STRUCTURES: Stable cardiomegaly. The pulmonary vasculature is within normal limit s given the low inspiratory lung volumes. BONES: No acute findings. HARDWARE: Sternotomy wires and mediastinal clips consistent with prior CABG. There are coronary sten ts in place. The tip of the left IJ tunnel HD catheter projects within the right atrium. OTHER: No other finding. IMPRESSION: Bibasilar, left greater than right, pleural and parenchymal opacities that obscure the c ontours of the hemidiaphragms and blunt the costophrenic sulci. These opacities could represent a co mbination of pleural fluid, atelectasis, and/ or consolidation. TECHNICAL DOCUMENTATION: JOB ID: [id number] [employer]- All Rights Reserved Reading location - IP/workstation name: [email or web address]
--- NOTE | 2019-09-12 11:23 | RADIOLOGY REPORT (SQ) ---
EXAM DESCRIPTION: CT HEAD WITHOUT COMPLETED DATE/TIME: 09/12/2019 11:03 am REASON FOR STUDY: Syncope, Hx old stroke, Guyon Ventura syndrome COMPARISON: CT of the head without contrast from 08/30/2017. TECHNIQUE: Axial images acquired through the brain without intravenous contrast. Images reviewed wi th bone, brain and subdural windows. Additional sagittal and coronal reconstructions were generated. Images stored on PACS. All CT scanners at this facility use dose modulation, iterative reconstruction, and/or weight based d osing when appropriate to reduce radiation dose to as low as reasonably achievable (ALARA). [facility]: Dose Right [facility]: CareDose [facility]: Dose Right [facility]: Teradose 4D [facility]: [employer] LIMITATIONS: None. FINDINGS: The focal area of hypoattenuation within the right hankins radiata/basal ganglia is unchang ed from 08/30/2017 and could represent the sequela of chronic ischemia. There is no acute intracrani al hemorrhage, vascular territorial infarct, extra-axial fluid collection, mass effect, or midline sh ift. There is no effacement of the cerebral sulci or basal subarachnoid cisterns. The kruse-white ma tter differentiation is preserved. The caliber of the ventricles is concordant with the degree of yu lcation and unchanged from the prior CT. The globes are aphakic. The paranasal sinuses are clear. There is no fracture of the calvarium. IMPRESSION: No acute intracranial abnormality. EVIDENCE OF ACUTE STROKE: NO. COMMENT: Quality ID # [id number]: Final reports with documentation of one or more dose reduction techniques (e.g., Automated exposure control, adjustment of the mA and/or kV according to patient size, use of iterative reconstruction technique) TECHNICAL DOCUMENTATION: JOB ID: [id number] [employer]- All Rights Reserved Reading location - IP/workstation name: [email or web address]
[2019-09-12] MEDS ORDERED: HEPARIN SOD (PORCINE) 1,000 UNIT/ML 10 ML VIAL ONE (17:02)
[2019-09-12] MEDS ORDERED: HEPARIN SOD (PORCINE) 1,000 UNIT/ML 10 ML VIAL IV PRN (17:26)
[2019-09-12 17:57] VITALS: BP 137/68
--- NOTE | 2019-09-12 18:41 | PDOC CONSULTATION ---
Consultation Consult Date: 09/12/19 Provider Consulted: Goyo ZIMMERMAN Consult reason:: ESRD for HD History of Present Illness Admission Date/PCP: KEEGAN MONTENEGRO MD History of Present Illness: KATHRYN HURLEY is a 63 year old male with the past medical history of ESRD on hemodialysis in the background of hypertension along with other comorbidities that includes laundry Guillain-Ventura syndrome, CVA both of which has left him paraparetic and unable to walk, history of recurrent C. difficile colitis, history of recurrent UTI including with ESBL E. coli and is also got a history of skin infections with MRSA was admitted with history of syncope/possible sudden syndrome. According to the patient he apparently he passed out while he was trying to brush his teeth. As far as any further history, the patient unable to give. Therefore chart review was done and discussions done with the treating ER physician Dr. Galindo. Apparently the was by him who was found he had stopped breathing and he was on the ground. He was given CPR and 911 was called. The EMS crew came and put him on oxygen and slowly he became more responsive and he was transferred to the ER. He denies any history of chest pains or shortness of breath. He is also got early dry gangrene affecting the toes of both his feet suggestive of early peripheral vascular disease. He has seen the surgeons here before in the past. He says last week he had an upper GI endoscopy and he is unsure of the results. He has been having a couple of diarrhea intermittently for the last couple of weeks. Chart review was done and he is C. difficile negative at the moment. He says he has been eating fairly well but his fluid intake has been very poor. He is unsure if he has any orthostasis as he hardly is able to get up on his own feet because of his paraparesis. Currently he feels comfortable while he is undergoing dialysis. Vital signs are stable. However his heart rate is in the upper 50s to low 50s with conduction delay suggestive of a second-degree heart block. Besides that his cardiac enzymes are rising indicative of that he has had an NSTEMI infarction. Labs and medications were reviewed. Dialysis orders were reviewed with the treating dialysis nurse. Past Medical History Cardiac Medical History: Reports: CHF-Diastolic, Coronary Artery Disease, Hyperlipidemia, Hypertension-primary, Myocardial Infarction Pulmonary Medical History: Reports: Asthma, Bronchitis, Intubation, Pneumonia, Respiratory Failure, Sleep Apnea - On C Pap Denies: Chronic Obstructive Pulmonary Disease (COPD) Neurological Medical History: Reports: Other - History of Shani Ventura syndrome Denies: Seizures Endocrine Medical History: Reports: Diabetes Mellitus Type 1, Diabetes Mellitus Type 2 Complications of Diabetes: Reports: Nephropathy Renal/ Medical History: Reports: End Stage Renal Disease, Secondary Hyperparathyroidism GI Medical History: Reports: Gastroesophageal Reflux Disease Musculoskeltal Medical History: Reports: Arthritis Psychiatric Medical History: Denies: Depression - anxiety Infectious Medical History: Reports: Clostridium Difficile Hematology Medical History: Reports Anemia of Chronic Kidney Disease Past Surgical History Past Surgical History: Reports: Cardiac Catheterization, Coronary Artery Bypass Graft - Quadruple bypass 2007, Vascular Surgery - left AV fistual, Other - History peritoneal dialysis catheter placement and removal Social History Smoking Status: Unknown if Ever Smoked Frequency of Alcohol Use: None Hx Recreational Drug Use: No Drugs: None Hx Prescription Drug Abuse: No Family History Parental Family History Reviewed: Yes - Negative for ESRD Children Family History Reviewed: No Sibling(s) Family History Reviewed.: No Medication/Allergy Home Medications: Aspirin [Ecotrin 81 mg EC Tablet] 325 mg PO DAILY 07/23/19 Atorvastatin Calcium [Lipitor 20 mg Tablet] 20 mg PO BID 07/23/19 Clopidogrel Bisulfate [Plavix 75 mg Tablet] 75 mg PO DAILY 07/23/19 Ergocalciferol (Vitamin D2) [Drisdol 50,000 unit (1.25MG) Capsule] 50,000 unit PO FR@1000 07/23/19 Iron 1 tab PO DAILY 07/23/19 Isosorbide Mononitrate [Imdur 30 mg Tablet.er] 30 mg PO DAILY 07/23/19 Lisinopril [Zestril] 5 mg PO DAILY 07/23/19 Ranitidine HCl [Zantac] 150 mg PO DAILY 07/23/19 Sevelamer Carbonate [Renvela] 1,600 mg PO TID 07/23/19 Tamsulosin HCl [Flomax] 0.4 mg PO DAILY 07/23/19 Vitamin B Complex/Folic Acid [B-Complex Tablet] 100 mg PO DAILY 07/23/19 Ascorbic Acid [Vitamin C 500 mg Tablet] 500 mg PO DAILY 09/06/19 Insulin Aspart [Novolog Flexpen] 0 unit SUBCUT .SLD SCALE 09/06/19 Insulin Aspart [Novolog Flexpen] 4 unit SUBCUT .ACMEALS 09/06/19 Insulin Glargine,Hum.rec.anlog [Lantus Insulin 100 Unit/1 ml 10 ml] 3 unit SUBCUT QHS 09/06/19 Metronidazole [Flagyl 500 mg Tablet] 500 mg PO BID 10 Days #20 tablet 09/07/19 Allergies/Adverse Reactions: No Known Allergies Allergy (Verified 09/06/19 16:24) Review of Systems Constitutional: PRESENT: fatigue, headache(s), weakness - Is chronic. ABSENT: anorexia, chills, fever(s), night sweats Nose, Mouth, and Throat: ABSENT: mouth pain, sore throat Cardiovascular: ABSENT: chest pain, dyspnea on exertion, edema, orthropnea, palpitations Respiratory: ABSENT: dyspnea, hemoptysis Gastrointestinal: PRESENT: diarrhea Genitourinary: ABSENT: dysuria, hematuria Integumentary: ABSENT: lesions, pruritus, rash Neurological: ABSENT: abnormal gait, abnormal movements, abnormal speech, confusion, convulsions Physical Exam Vital Signs: Temp Pulse Resp BP Pulse Ox 97.8 F 26 H 137/68 H 100 09/12/19 17:36 09/12/19 17:36 09/12/19 17:36 09/12/19 17:36 Intake & Output 09/11/19 09/12/19 09/13/19 06:59 06:59 06:59 Weight 57.7 kg General appearance: PRESENT: no acute distress, disheveled, thin Eye exam: PRESENT: conjunctiva pink, EOMI, PERRLA Mouth exam: PRESENT: dry mucosa. ABSENT: moist Neck exam: ABSENT: lymphadenopathy, meningismus, tenderness, thyromegaly, tracheal deviation Respiratory exam: PRESENT: clear to auscultation jolie. ABSENT: crackles Cardiovascular exam: PRESENT: +S1, +S2 GI/Abdominal exam: PRESENT: normal bowel sounds, soft. ABSENT: organomegaly, tenderness Extremities exam: ABSENT: pedal edema Neurological exam: PRESENT: alert, awake, oriented to person, oriented to place, oriented to time, oriented to situation Psychiatric exam: PRESENT: anxious Skin exam: PRESENT: cyanosis - got dry gangrene of both his feet on his toes., mottled - Discoloration of both feet.. ABSENT: petechiae, rash Results Laboratory Results: 09/12/19 08:50 09/12/19 08:50 09/12/19 09/12/19 08:50 08:50 WBC 9.7 RBC 4.24 L Hgb 13.0 L Hct 40.1 MCV 95 MCH 30.8 MCHC 32.5 RDW 17.5 H Plt Count 230 Seg Neutrophils % 45.9 Sodium 140.4 Potassium 4.6 Chloride 107 Carbon Dioxide 22 Anion Gap 11 BUN 29 H Creatinine 5.28 H Est GFR ( Amer) 13 L Glucose 124 H Calcium 9.0 Total Bilirubin 0.7 AST 31 Alkaline Phosphatase 95 Total Protein 8.1 Albumin 3.4 L 09/12/19 09/12/19 09/12/19 08:50 08:50 13:00 Creatine Kinase 73 CK-MB (CK-2) 6.45 H Troponin I 0.111 0.225 09/12/19 16:06 Creatine Kinase CK-MB (CK-2) Troponin I 0.315 Impressions: Chest X-Ray 09/12/19 10:17 IMPRESSION: Bibasilar, left greater than right, pleural and parenchymal opacities that obscure the contours of the hemidiaphragms and blunt the costophrenic sulci. These opacities could represent a combination of pleural fluid, atelectasis, and/ or consolidation. Head CT 09/12/19 10:18 IMPRESSION: No acute intracranial abnormality. EVIDENCE OF ACUTE STROKE: NO. Assessment & Plan - Diagnosis (1) Syncope Plan: Looks like the patient had a syncopal event and possible sudden syndrome. Patient currently having bradycardia with a 2:1 block with underlying possible atrial flutter. Patient also having rising cardiac enzymes suggestive of an NSTEMI. Patient in the process of being transferred to [place]. Presently stable. (2) NSTEMI (non-ST elevated myocardial infarction) Plan: Rising cardiac enzymes and the last one being 0.3+. Patient in the process of being transferred to [place]. (3) ESRD on hemodialysis Plan: She is having an average dialysis because of his rather unstable situation with rising enzymes and history of presyncope/possible sudden . Dialysis is being supervised to ensure safe and smooth procedure. Vital signs are stable. We will only remove approximately 500 cc of fluid as tolerated. Dialysis orders were reviewed and discussed with the treating dialysis nurse. His right IJ catheter looks clean. (4) Wenckebach block Plan: As mentioned earlier. 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 (6) Chronic diastolic (congestive) heart failure Plan: stable (7) Diabetes mellitus, type II Qualifiers: Diabetes mellitus banbury operator insulin use: with banbury operator use Diabetes mellitus complication status: with other specified complication Qualified Code(s): E11.69 - Type 2 diabetes mellitus with other specified complication; Z79.4 - learning disabilities resource teacher (current) use of insulin; Z79.4 - [facility]FP (current) use of insulin; Z79.4 - learning disabilities resource teacher (current) use of insulin; Z79.4 - MCFP (current) use of insulin Plan: Advised tight control. (8) History of Clostridium difficile colitis Plan: Presently stable. (9) History of infection due to ESBL Escherichia coli Plan: History of. Recurrent UTI with the same. (10) Hypertension Qualifiers: Hypertension type: essential hypertension Qualified Code(s): I10 - Essential (primary) hypertension Plan: Presently controlled. Avoid hypotension. (11) Necrotic toes Plan: With early dry gangrene/history of peripheral vascular disease. Being monitored by surgeons. (12) Recurrent urinary tract infection Plan: With ESBL E. coli. Presently stable.
--- NOTE | 2019-09-12 19:46 | EKG REPORT ---
SEVERITY:- ABNORMAL ECG - SINUS RHYTHM MOBITZ I AV BLOCK (WENCKEBACH) PROBABLE LEFT ATRIAL ABNORMALITY LEFT VENTRICULAR HYPERTROPHY INFERIOR INFARCT, AGE INDETERMINATE ANTEROLATERAL INFARCT, AGE INDETERMINATE : Confirmed by: Kevon Madison MD 12-Sep-2019 19:46:34
--- NOTE | 2019-09-13 13:55 | EKG REPORT ---
SEVERITY:- ABNORMAL ECG - SINUS BRADYCARDIA WITH 2:1 AVB PROBABLE LEFT ATRIAL ABNORMALITY LEFT VENTRICULAR HYPERTROPHY INFERIOR INFARCT, AGE INDETERMINATE ANTEROLATERAL INFARCT, AGE INDETERMINATE : Confirmed by: Kevon Madison MD 13-Sep-2019 13:54:23
== END 2019-09-12 17:45 | disposition short-term general hospital (02) ==
LOC: ER 08:38
DX: I44.1 Atrioventricular block, second degree (principal); R55 Syncope and collapse; I12.0 Hypertensive chronic kidney disease with stage 5 chronic kidney disease or end stage renal disease; E11.22 Type 2 diabetes mellitus with diabetic chronic kidney disease; N18.6 End stage renal disease; Z99.2 Dependence on renal dialysis; Z94.0 Kidney transplant status; J45.909 Unspecified asthma, uncomplicated; R05 Cough; R11.0 Nausea; G82.20 Paraplegia, unspecified; G65.0 Sequelae of Guillain-Barre syndrome; I25.10 Atherosclerotic heart disease of native coronary artery without angina pectoris; I95.9 Hypotension, unspecified; R00.1 Bradycardia, unspecified; R00.0 Tachycardia, unspecified; E78.00 Pure hypercholesterolemia, unspecified; K21.9 Gastro-esophageal reflux disease without esophagitis; Z79.82 Long term (current) use of aspirin; Z79.02 Long term (current) use of antithrombotics/antiplatelets; Z79.899 Other long term (current) drug therapy; Z86.73 Personal history of transient ischemic attack (TIA), and cerebral infarction without residual deficits; Z95.1 Presence of aortocoronary bypass graft
CPT/HCPCS: 93005; 99291; 36415; 82553; 82550; 85025; 80053; 84484; 71045; 70450; 93010; G0257; J1644

== ENCOUNTER → 2019-10-18 | Outpatient (CLI) | payer OTHER, MEDICARE ==
--- NOTE | 2019-10-18 14:43 | RADIOLOGY REPORT (SQ) ---
EXAM DESCRIPTION: CHEST PA/LATERAL COMPLETED DATE/TIME: 10/18/2019 2:25 pm REASON FOR STUDY: PLEURAL EFFUSION COMPARISON: 09/12/2019 EXAM PARAMETERS: NUMBER OF VIEWS: two views TECHNIQUE: Digital Frontal and Lateral radiographic views of the chest acquired. RADIATION DOSE: NA LIMITATIONS: none FINDINGS: LUNGS AND PLEURA: There are bilateral pleural effusions left greater than right. There is bilateral interstitial airspace disease. MEDIASTINUM AND HILAR STRUCTURES: No masses or contour abnormalities. HEART AND VASCULAR STRUCTURES: Heart is enlarged with central vascular congestion. BONES: No acute findings. HARDWARE: Dialysis catheter is in place along with sternotomy wires. OTHER: No other significant finding. IMPRESSION: Cardiomegaly and vascular congestion. Bilateral pleural effusions left greater than rig ht. TECHNICAL DOCUMENTATION: JOB ID: [id number] [employer]- All Rights Reserved Reading location - IP/workstation name: [email or web address]
== END ==
LOC: OD 14:11
PROVIDERS: ATTEND Family Medicine
DX: J90 Pleural effusion, not elsewhere classified (principal); I51.7 Cardiomegaly
CPT/HCPCS: 71046

== ENCOUNTER 2020-04-11 16:27 | Inpatient (IN) | payer MEDICARE ==
[2020-04-11 17:33] LABS: ABSOLUTE EOSINOPHILS # (AUTO) 0.1 10^3/uL (0.0-0.6); ABSOLUTE LYMPHOCYTES (AUTO) 0.8 10^3/uL (0.5-4.7); ABSOLUTE MONOCYTES (AUTO) 0.5 10^3/uL (0.1-1.4); ABSOLUTE NEUT (AUTO) 5.1 10^3/uL (1.7-8.2); BASOPHILS % (AUTO) 0.5 % (0-2); EOSINOPHILS % (AUTO) 1.5 % (0-6); HEMATOCRIT 35.6 % (37.9-51.0); HEMOGLOBIN 11.8 g/dL (13.5-17.0); LYMPHOCYTES % (AUTO) 12.8 % (13-45); MEAN CORPUSCULAR HEMOGLOBIN 31.2 pg (27.0-33.4); MEAN CORPUSCULAR HGB CONC 33.3 g/dL (32.0-36.0); MEAN CORPUSCULAR VOLUME 94 fl (80-97); MONOCYTES % (AUTO) 7.5 % (3-13); PLATELET COUNT 154 10^3/uL (150-450); RED CELL DISTRIBUTION WIDTH 15.2 % (11.5-14.0); SEGMENTED NEUTROPHILS % (AUTO) 77.7 % (42-78); TOTAL CELLS COUNTED % (AUTO) 100 %; WHITE BLOOD COUNT 6.6 10^3/uL (4.0-10.5)
--- NOTE | 2020-04-11 17:35 | ER Document Report ---
ED Fever - General Chief Complaint: Fever Stated Complaint: FEVER/CHILLS Time Seen by Provider: 04/11/20 16:42 Notes: Patient is a 64-year-old male with history of end-stage renal disease on dialysis Thursday, Thursday, Thursday who presents the emergency department with a fever and chills. Patient was at dialysis and then he ended up having a fever of 102.8. They gave him 650 mg of Tylenol at 1530. Patient was able to complete dialysis and they took 1.4 L off during dialysis. They also gave him a gram of vancomycin and sujit blood cultures. They also swabbed his central venous catheter site. Patient also has decubitus ulcers. He states he has mild lower abdominal pain. He is incontinent of urine and stool. States he still makes urine. Denies any nausea or vomiting. Past medical history includes end- stage renal disease, hypertension, atherosclerotic disease, myocardial infarction, chronic wounds patient denies any chest pain, shortness of breath, difficulty breathing, or any other symptoms. Patient states that he thinks the source of his infection is his trialysis catheter. He states that there was purulent drainage from the area. Patient is a code status. TRAVEL OUTSIDE OF THE [place] IN LAST 30 DAYS: No - Related Data Allergies/Adverse Reactions: No Known Allergies Allergy (Verified 09/06/19 16:24) Past Medical History - Social History Smoking Status: Unknown if Ever Smoked Family History: Reviewed & Not Pertinent, CAD Patient has homicidal ideation: No - Past Medical History Cardiac Medical History: Reports: Hx Congestive Heart Failure, Hx Coronary Artery Disease, Hx Heart Attack, Hx Hypercholesterolemia Denies: Hx Hypertension Pulmonary Medical History: Reports: Hx Asthma, Hx Bronchitis, Hx Pneumonia, Hx Intubation, Hx Respiratory Failure, Hx Sleep Apnea - On C Pap Denies: Hx COPD Neurological Medical History: Denies: Hx Cerebrovascular Accident, Hx Seizures Endocrine Medical History: Reports: Hx Diabetes Mellitus Type 1, Hx Diabetes Mellitus Type 2 Renal/ Medical History: Reports: Hx End Stage Renal Disease, Hx Hemodialysis GI Medical History: Reports: Hx Gastroesophageal Reflux Disease Musculoskeletal Medical History: Reports Hx Arthritis Psychiatric Medical History: Denies: Hx Depression - anxiety Infectious Medical History: Reports: Hx C-Diff Past Surgical History: Reports: Hx Cardiac Catheterization, Hx Cardiac Surgery - bipass x4, Hx Coronary Artery Bypass Graft - Quadruple bypass 2007, Hx Kidney (Renal Surgery) - RENAL TRANSPLANT, Hx Vascular Surgery - left AV fistual, Other - History peritoneal dialysis catheter placement and removal - Immunizations Immunizations up to date: Yes Hx Diphtheria, Pertussis, Tetanus Vaccination: No Hx Pneumococcal Vaccination: 08/16/16 Review of Systems - Review of Systems Notes: REVIEW OF SYSTEMS: CONSTITUTIONAL : Denies recent illness. Denies recent unintentional weight loss. See HPI. EENT: Denies eye, ear, throat, or mouth pain, discharge, or symptoms. Denies nasal or sinus congestion. CARDIOVASCULAR: Denies chest pain. RESPIRATORY: Denies shortness of breath, cough, congestion, difficulty breathing, or wheezing. GASTROINTESTINAL: See HPI. GENITOURINARY: See HPI. MUSCULOSKELETAL: Denies neck and back pain. Denies joint pain or swelling. SKIN: See HPI. HEMATOLOGIC : Denies easy bruising or bleeding. LYMPHATIC: Denies swollen, painful, enlarged glands. NEUROLOGICAL: Denies no numbness or tingling denies weakness. Denies headache. Denies altered mental status. Denies alteration in speech. PSYCHIATRIC: Denies stress, anxiety, alteration in sleep patterns, or depression. All other systems reviewed and negative. Physical Exam - Vital signs Vitals: Resp 26 H 04/11/20 16:43 - Notes Notes: PHYSICAL EXAMINATION: GENERAL: Appears well, healthy, well-nourished, no acute distress. HEAD: Normocephalic, atraumatic. EYES: PERRL, conjunctiva normal, all extraocular movements intact, sclera nonicteric ENT: Moist mucous membranes. NECK: Supple, no noticeable swelling, redness, rash. Normal range of motion. LUNGS: Equal breath sounds bilaterally and clear to auscultation. No wheezes rales or rhonchi. CARDIOVASCULAR: S1-S2, regular rate, regular rhythm. Radial pulses 2+, normal. ABDOMEN: Normoactive bowel sounds. Soft, nontender, no guarding, no rebound tenderness, and no masses palpated. EXTREMITIES: Normal strength and range of motion, no pitting or edema. No cyanosis. NEUROLOGICAL: Moves all extremities upon command. Strength 5/5 in all extremities. PSYCH: Normal mood, normal affect. SKIN: Warm, stage II decubitus ulcer noted to coccyx. Stage I ulcer noted to right lateral hip. Course - Re-evaluation Re-evalutation: 04/11/20 18:[address] Tavares, the needle grinder. He will follow the patient on inpatient basis.Still waiting on additional lab results and CT scanning. 04/12/20 20:30 Patient has leukocytosis, but there is a left shift with 77% neutrophils. Although there is no urinalysis, I suspect patient has a urinary tract infection also. he has tenderness to his mid lower abdomen. Hemoglobin shows anemia, but this is most likely anemia of chronic disease and he his on hemodialysis. BUN and creatinine are elevated, but this is consistent with his end-stage renal disease. Patient will be rapid covid testedI spoke with Dr. Girard, the patient will be admitted to [facility]. - Vital Signs Vital signs: Temp Pulse Resp BP Pulse Ox 98.4 F 51 L 16 108/61 99 04/12/20 03:37 04/12/20 03:37 04/12/20 03:37 04/12/20 03:37 04/12/20 03:37 - Laboratory Result Diagrams: 04/11/20 17:15 04/11/20 19:08 Laboratory results interpreted by me: 04/11/20 04/11/20 17:15 19:08 RBC 3.80 L Hgb 11.8 L Hct 35.6 L RDW 15.2 H Lymph % (Auto) 12.8 L BUN 24 H Creatinine 2.30 H Est GFR ( Amer) 35 L Est GFR (MDRD) Non-Af 29 L Alkaline Phosphatase 151 H Total Protein 8.8 H Discharge - Discharge Clinical Impression: Chronic renal failure, stage 4 (severe) Fever Qualifiers: Fever type: unspecified Qualified Code(s): R50.9 - Fever, unspecified Condition: Fair Disposition: ADMITTED INPATIENT Admitting Provider: Shaji Unit Admitted: [facility]
--- NOTE | 2020-04-11 18:19 | RADIOLOGY REPORT (SQ) ---
EXAM DESCRIPTION: CT ABD/PELVIS NO ORAL OR IV IMAGES COMPLETED DATE/TIME: 04/11/2020 6:04 pm REASON FOR STUDY: lower abdominal pain COMPARISON: 06/21/2018 TECHNIQUE: CT scan of the abdomen and pelvis performed without intravenous or oral contrast. Images reviewed with lung, soft tissue, and bone windows. Reconstructed coronal and sagittal MPR images revi ewed. All images stored on PACS. All CT scanners at this facility use dose modulation, iterative reconstruction, and/or weight based d osing when appropriate to reduce radiation dose to as low as reasonably achievable (ALARA). [facility]: Dose Right [facility]: CareDose [facility]: Dose Right [facility]: Teradose 4D [facility]: Smart [place]fer[place] RADIATION DOSE: CT Rad equipment meets quality standard of care and radiation dose reduction techniq ues were employed. CTDIvol: 5.0 mGy. DLP: 263 mGy-cm.mGy. LIMITATIONS: None. FINDINGS: LOWER CHEST: Moderate right pleural effusion small left pleural effusion with associated a irspace disease in the lower lobes. NON-CONTRASTED LIVER, SPLEEN, ADRENALS: Evaluation limited by lack of IV contrast. No identified sign ificant masses. PANCREAS: No masses. No peripancreatic inflammatory changes. GALLBLADDER: No identified stones by CT criteria. No inflammatory changes to suggest cholecystitis. RIGHT KIDNEY AND URETER: Some degree of atrophy. Renal vascular calcifications. Nonobstructing intr arenal calculi. No hydronephrosis. LEFT KIDNEY AND URETER: Atrophy. Renal vascular calcifications. Nonobstructing intrarenal calculi. No hydronephrosis. AORTA AND RETROPERITONEUM: No aneurysm. Atherosclerosis with atherosclerosis involving the SMA and IM A and renal arteries. BOWEL AND PERITONEAL CAVITY: No obvious mass. Retained stool particularly dense in the rectum. APPENDIX: Not identified. PELVIS, BLADDER, AND ABDOMINAL WALL:No abnormal masses. No free fluid. Bladder normal. BONES: Osteopenia. Heterogeneous with areas of sclerosis. OTHER: No other significant finding. IMPRESSION: 1. Pleural effusions with associated airspace disease as described. Likely atelectasis . Renal atrophy. Nonobstructing intrarenal calculi. Aortic atherosclerosis with atherosclerosis in volving the SMA, JUAN ALBERTO, and renal arteries. Constipation. Cannot exclude fecal impaction. Heterogene ous areas of sclerosis in the spine. Is there history of neoplasm? COMMENT: Quality ID # [id number]: Final reports with documentation of one or more dose reduction techniques (e.g., Automated exposure control, adjustment of the mA and/or kV according to patient size, use of iterative reconstruction technique) TECHNICAL DOCUMENTATION: JOB ID: [id number] 2010 [employer]- All Rights Reserved Reading location - IP/workstation name: [email or web address]
[2020-04-11 19:34] LABS: ALBUMIN 3.7 g/dL (3.5-5.0); ALKALINE PHOSPHATASE 151 U/L (38-126); ANION GAP 10 (5-19); ASPARTATE AMINO TRANSFERASE 28 U/L (17-59); BILIRUBIN,DIRECT 0.2 mg/dL (0.0-0.4); BILIRUBIN,TOTAL 0.7 mg/dL (0.2-1.3); BLOOD UREA NITROGEN 24 mg/dL (7-20); CALCIUM 8.6 mg/dL (8.4-10.2); CARBON DIOXIDE 28 mmol/L (22-30); CHLORIDE 101 mmol/L (98-107); GLUCOSE 80 mg/dL (75-110); POTASSIUM 3.9 mmol/L (3.6-5.0); TOTAL PROTEIN 8.8 g/dL (6.3-8.2)
--- NOTE | 2020-04-11 19:35 | EKG REPORT ---
SEVERITY:- ABNORMAL ECG - SINUS RHYTHM SECOND DEGREE AVB, MOBITZ 1 AVB. FIRST DEGREE AV BLOCK PROBABLE LEFT ATRIAL ABNORMALITY PROBABLE LVH WITH SECONDARY REPOL ABNRM INFERIOR INFARCT, AGE INDETERMINATE CONSIDER ANTERIOR INFARCT BORDERLINE PROLONGED QT INTERVAL : Confirmed by: Kevon Madison MD 11-Apr-2020 19:35:22
[2020-04-11] MEDS ORDERED: CEFEPIME 1 GM/D5W RTU 1 GM/50 ML RTUPB IV ONE (20:25)
[2020-04-11] MEDS ORDERED: ACETAMINOPHEN 325 MG TABLET PO PRN (20:45)
[2020-04-11] MEDS ORDERED: ONDANSETRON HCL INJ/PF 4 MG/2 ML SDV IV PRN (20:45)
[2020-04-11] MEDS ORDERED: IPRATROPIUM/ALBUTEROL 0.5-2.5 MG/3 ML AMPUL NEB PRN (20:45)
[2020-04-11] MEDS ORDERED: DEXTROSE 40% GEL 15 GM TUBE PO PRN ×2 (20:50)
[2020-04-11] MEDS ORDERED: GLUCAGON,HUMAN RECOMB 1 MG INJ IM PRN (20:50)
[2020-04-11] MEDS ORDERED: DEXTROSE 50%-WATER 25 GM/50 ML DISP.SYRIN IV PRN ×2 (20:50)
--- NOTE | 2020-04-11 21:16 | RADIOLOGY REPORT (SQ) ---
EXAM DESCRIPTION: CT CHEST WITHOUT IV CONTRAST COMPLETED DATE/TME: 04/11/2020 20:02 CLINICAL HISTORY: 64 years Male eval pneumonia? COMPARISON: 07/25/2019. TECHNIQUE: Contiguous axial images obtained through the chest without IV contrast. Reformatted images obtained. This exam was performed according to our department optimization program which includes automated exposure control, adjustment of the mA and/or kv according to patient size and/or use of iterative reconstruction technique. FINDINGS: Cardiac enlargement. Vascular calcification in aorta and the coronary arteries. Pacemaker in place. Heart is enlarged. No evidence of pericardial effusion. Large right and moderate left pleural effusions. This appears similar to the previous study with thick-walled collection on the left. There are mildly enlarged mediastinal lymph nodes. The hilar regions are not optimally evaluated. Areas of atelectasis in the lower lobes bilaterally with a lobular area in the lingula likely rounded atelectasis. This appears similar to the previous. IJ catheter with the tip in the SVC. IMPRESSION: Large right and moderately large chronic appearing left pleural fluid collection. The appearance is similar to the examination from 2019 Areas of atelectasis in the lower lobes bilaterally with probable rounded atelectasis in the lingula, also unchanged Cardiac enlargement Extensive vascular calcification
[2020-04-11] MEDS ORDERED: CEFEPIME 1 GM/D5W RTU 1 GM/50 ML RTUPB IV SCH (22:00)
[2020-04-11] MEDS ORDERED: FAMOTIDINE 20 MG TABLET PO SCH (22:00)
[2020-04-11] MEDS: INSULIN LISPRO 100 UNIT/ML 3 ML VIAL SUBCUT SCH (23:03)
[2020-04-11] MEDS: HEPARIN SOD (PORCINE) 5,000 UNIT/ML 1 ML VIAL SUBCUT SCH (23:15)
[2020-04-12] MEDS: HEPARIN SOD (PORCINE) 5,000 UNIT/ML 1 ML VIAL SUBCUT SCH (05:35)
[2020-04-12 07:31] LABS: ALKALINE PHOSPHATASE 143 U/L (38-126); ANION GAP 10 (5-19); ASPARTATE AMINO TRANSFERASE 43 U/L (17-59); BILIRUBIN,DIRECT 0.4 mg/dL (0.0-0.4); BILIRUBIN,TOTAL 0.7 mg/dL (0.2-1.3); BLOOD UREA NITROGEN 30 mg/dL (7-20); CARBON DIOXIDE 27 mmol/L (22-30); CHLORIDE 102 mmol/L (98-107); CREATINE KINASE 215 U/L (55-170); POTASSIUM 4.3 mmol/L (3.6-5.0); TOTAL PROTEIN 9.3 g/dL (6.3-8.2)
[2020-04-12 07:35] LABS: GLUCOSE 58 mg/dL (75-110)
[2020-04-12] MEDS: INSULIN LISPRO 100 UNIT/ML 3 ML VIAL SUBCUT SCH (07:40)
[2020-04-12 07:42] LABS: CREATINE KINASE MB 23.6 ng/mL (<4.55)
[2020-04-12 07:53] LABS: TROPONIN I 7.31 ng/mL
[2020-04-12 08:00] VITALS: BP 136/62
[2020-04-12] MEDS ORDERED: HEPARIN SOD (PORCINE) 1,000 UNIT/ML 10 ML VIAL IV PRN (08:30)
[2020-04-12] MEDS ORDERED: HEPARIN SODIUM,PORCINE/D5W 25,000 UNIT/250 ML RTUINJ IV PRN (08:30)
[2020-04-12 08:40] LABS: ABSOLUTE EOSINOPHILS # (AUTO) 0.1 10^3/uL (0.0-0.6); ABSOLUTE MONOCYTES (AUTO) 0.5 10^3/uL (0.1-1.4); BASOPHILS % (AUTO) 0.7 % (0-2); EOSINOPHILS % (AUTO) 1.5 % (0-6); HEMATOCRIT 36.9 % (37.9-51.0); HEMOGLOBIN 12.2 g/dL (13.5-17.0); LYMPHOCYTES % (AUTO) 15.2 % (13-45); MEAN CORPUSCULAR HEMOGLOBIN 31.3 pg (27.0-33.4); MEAN CORPUSCULAR HGB CONC 33.1 g/dL (32.0-36.0); MEAN CORPUSCULAR VOLUME 95 fl (80-97); PLATELET COUNT 146 10^3/uL (150-450); RED BLOOD COUNT 3.91 10^6/uL (4.35-5.55); RED CELL DISTRIBUTION WIDTH 15.1 % (11.5-14.0); SEGMENTED NEUTROPHILS % (AUTO) 75.6 % (42-78); TOTAL CELLS COUNTED % (AUTO) 100 %; WHITE BLOOD COUNT 6.6 10^3/uL (4.0-10.5)
--- NOTE | 2020-04-12 09:45 | RADIOLOGY REPORT (SQ) ---
EXAM DESCRIPTION: CT HEAD WITHOUT IMAGES COMPLETED DATE/TIME: 04/12/2020 9:32 am REASON FOR STUDY: r/o bleed prior to starting heparin drip COMPARISON: 09/12/2019. TECHNIQUE: Axial images acquired through the brain without intravenous contrast. Images reviewed wi th bone, brain and subdural windows. Additional sagittal and coronal reconstructions were generated. Images stored on PACS. All CT scanners at this facility use dose modulation, iterative reconstruction, and/or weight based d osing when appropriate to reduce radiation dose to as low as reasonably achievable (ALARA). [facility]: Dose Right [facility]: CareDose [facility]: Dose Right [facility]: Teradose 4D [facility]: [employer] RADIATION DOSE: CT Rad equipment meets quality standard of care and radiation dose reduction techniq ues were employed. CTDIvol: 48.6 mGy. DLP: 856 mGy-cm.mGy. LIMITATIONS: None. FINDINGS: VENTRICLES: Prominent. CEREBRUM: No masses. No hemorrhage. No midline shift. Areas of low density in the white matter mos t likely due to chronic micro-vascular ischemic change. Stable low-attenuation in the right hankins r adiata. No evidence for acute infarction. CEREBELLUM: No masses. No hemorrhage. No alteration of density. No evidence for acute infarction. EXTRAAXIAL SPACES: Age-related involutional change. No fluid collections. No masses. ORBITS AND GLOBE: No intra- or extraconal masses. Normal contour of globe without masses. CALVARIUM: No fracture. PARANASAL SINUSES: No fluid or mucosal thickening. SOFT TISSUES: No mass or hematoma. OTHER: No other significant finding. IMPRESSION: CHRONIC CHANGES OF ATROPHY AND MICROVASCULAR ISCHEMIA. NO ACUTE PROCESS. EVIDENCE OF ACUTE STROKE: NO. TECHNICAL DOCUMENTATION: JOB ID: [id number] Quality ID # [id number]: Final reports with documentation of one or more dose reduction techniques (e.g., Au tomated exposure control, adjustment of the mA and/or kV according to patient size, use of iterative reconstruction technique) 2010 [employer]- All Rights Reserved Reading location - IP/workstation name: [email or web address]
--- NOTE | 2020-04-12 09:45 | PDOC H&P ---
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 Patient's went to the dialysis yesterday and found it patient's started running a fever and patient was complaining some short of breath patient was sent to the emergency department also received a 1 g of vancomycin's in the dialysis in the take a culture from the dialysis catheter site Patient initial work-up was all stable patient was received the IV cefepime in the ER get a blood culture also get the urine culture Patient also have a COVID test done due to the ongoing pandemic which negative Patient's initial EKG was all stable patient's troponin was 4 then slowly go up to up to 7 Patient's denied any chest pain Patient seen by the cardiology and suggested patients with a complex history with elevated troponin could be a non-ST [place] needs to be further evaluate Patient's also start the low-dose heparin drips Patient's otherwise denied any other symptoms this morning Discussed with the nephrology have her dialysis done currently all electrolytes stable scheduled for dialysis tomorrow Patient CT scan suggest the pleural effusion which patient had a before and now thoracocentesis was done in the past last year which is negative for any malignancy Patient CT abdomen and pelvis was all stable Past Medical History Cardiac Medical History: Reports: Congestive Heart Failure, Coronary Artery Disease, Myocardial Infarction, Hyperlipidema Denies: Hypertension Pulmonary Medical History: Reports: Asthma, Bronchitis, Intubation, Pneumonia, Respiratory Failure, Sleep Apnea - On C Pap Denies: Chronic Obstructive Pulmonary Disease (COPD) Neurological Medical History: Denies: Seizures Endocrine Medical History: Reports: Diabetes Mellitus Type 1, Diabetes Mellitus Type 2 Renal/ Medical History: Reports: End Stage Renal Disease GI Medical History: Reports: Gastroesophageal Reflux Disease Musculoskeltal Medical History: Reports: Arthritis Psychiatric Medical History: Denies: Depression - anxiety Hematology: Denies: Anemia Infectious Medical History: Reports: Clostridium Difficile Past Surgical History Past Surgical History: Reports: Cardiac Catheterization, Coronary Artery Bypass Graft - Quadruple bypass 2007, Vascular Surgery - left AV fistual, Other - History peritoneal dialysis catheter placement and removal Social History Information Source: Patient Smoking Status: Unknown if Ever Smoked Electronic Cigarette use?: No Frequency of Alcohol Use: None Hx Recreational Drug Use: No Drugs: None Hx Prescription Drug Abuse: No Family History Family History: Reviewed & Not Pertinent, CAD Parental Family History Reviewed: Yes Children Family History Reviewed: Yes Sibling(s) Family History Reviewed.: Yes Medication/Allergy Allergies/Adverse Reactions: No Known Allergies Allergy (Verified 09/06/19 16:24) Review of Systems Constitutional: PRESENT: fever(s). ABSENT: chills, headache(s), weight gain, weight loss Eyes: ABSENT: visual disturbances Ears: ABSENT: hearing changes Cardiovascular: ABSENT: chest pain, dyspnea on exertion, edema, orthropnea, palpitations Respiratory: PRESENT: dyspnea. ABSENT: cough, hemoptysis Gastrointestinal: ABSENT: abdominal pain, constipation, diarrhea, hematemesis, hematochezia, nausea, vomiting Genitourinary: ABSENT: dysuria, hematuria Musculoskeletal: ABSENT: joint swelling Integumentary: ABSENT: rash, wounds Neurological: ABSENT: abnormal gait, abnormal speech, confusion, dizziness, focal weakness, syncope Psychiatric: ABSENT: anxiety, depression, homidical ideation, suicidal ideation Endocrine: ABSENT: cold intolerance, heat intolerance, menstrual abnormalities, polydipsia, polyuria Hematologic/Lymphatic: ABSENT: easy bleeding, easy bruising, lymphadenopathy Physical Exam Vital Signs: Temp Pulse Resp BP Pulse Ox 98.3 F 83 18 136/62 H 99 04/12/20 07:49 04/12/20 07:49 04/12/20 07:49 04/12/20 07:49 04/12/20 07:49 Intake & Output 04/11/20 04/12/20 04/13/20 06:59 06:59 06:59 Intake Total 310 Balance 310 Weight 53.7 kg General appearance: PRESENT: no acute distress, well-developed, well-nourished Head exam: PRESENT: atraumatic, normocephalic Eye exam: PRESENT: conjunctiva pink, EOMI, PERRLA. ABSENT: scleral icterus Ear exam: PRESENT: normal external ear exam Mouth exam: PRESENT: moist, tongue midline Neck exam: PRESENT: full ROM. ABSENT: carotid bruit, JVD, lymphadenopathy, thyromegaly Respiratory exam: PRESENT: clear to auscultation jolie Cardiovascular exam: PRESENT: RRR. ABSENT: diastolic murmur, rubs, systolic murmur Vascular exam: PRESENT: normal capillary refill GI/Abdominal exam: PRESENT: normal bowel sounds, soft. ABSENT: distended, guarding, mass, organolmegaly, rebound, tenderness Rectal exam: PRESENT: deferred Neurological exam: PRESENT: alert, awake, oriented to person, oriented to place, oriented to time, oriented to situation. ABSENT: motor sensory deficit Psychiatric exam: PRESENT: appropriate affect, normal mood. ABSENT: homicidal ideation, suicidal ideation Skin exam: PRESENT: dry, intact, warm. ABSENT: cyanosis, rash Results Laboratory Results: 04/12/20 08:13 04/12/20 05:37 04/11/20 04/11/20 04/11/20 17:15 17:15 19:08 WBC 6.6 RBC 3.80 L Hgb 11.8 L Hct 35.6 L MCV 94 MCH 31.2 MCHC 33.3 RDW 15.2 H Plt Count 154 Seg Neutrophils % 77.7 Sodium Cancelled 138.5 Potassium Cancelled 3.9 Chloride Cancelled 101 Carbon Dioxide Cancelled 28 Anion Gap Cancelled 10 BUN Cancelled 24 H Creatinine Cancelled 2.30 H Est GFR ( Amer) Cancelled 35 L Est GFR (Non-Af Amer) Cancelled Glucose Cancelled 80 Calcium Cancelled 8.6 Total Bilirubin Cancelled 0.7 AST Cancelled 28 Alkaline Phosphatase Cancelled 151 H Total Protein Cancelled 8.8 H Albumin Cancelled 3.7 04/12/20 04/12/20 04/12/20 05:37 05:37 08:13 WBC Cancelled 6.6 RBC Cancelled 3.91 L Hgb Cancelled 12.2 L Hct Cancelled 36.9 L MCV Cancelled 95 MCH Cancelled 31.3 MCHC Cancelled 33.1 RDW Cancelled 15.1 H Plt Count Cancelled 146 L Seg Neutrophils % Cancelled 75.6 Sodium 139.2 Potassium 4.3 Chloride 102 Carbon Dioxide 27 Anion Gap 10 BUN 30 H Creatinine 2.78 H Est GFR ( Amer) 28 L Est GFR (Non-Af Amer) Glucose 58 L Calcium 9.0 Total Bilirubin 0.7 AST 43 Alkaline Phosphatase 143 H Total Protein 9.3 H Albumin 4.0 04/11/20 04/11/20 04/12/20 21:10 23:00 05:37 Creatine Kinase 215 H CK-MB (CK-2) Troponin I Cancelled 4.830 04/12/20 05:37 Creatine Kinase CK-MB (CK-2) 23.60 H Troponin I 7.310 Impressions: Abdomen/Pelvis CT 04/11/20 17:28 IMPRESSION: 1. Pleural effusions with associated airspace disease as described. Likely atelectasis. Renal atrophy. Nonobstructing intrarenal calculi. Aortic atherosclerosis with atherosclerosis involving the SMA, JUAN ALBERTO, and renal arteries. Constipation. Cannot exclude fecal impaction. Heterogeneous areas of sclerosis in the spine. Is there history of neoplasm? Chest CT 04/11/20 20:02 IMPRESSION: Large right and moderately large chronic appearing left pleural fluid collection. The appearance is similar to the examination from 2019 Areas of atelectasis in the lower lobes bilaterally with probable rounded atelectasis in the lingula, also unchanged Cardiac enlargement Extensive vascular calcification Assessment & Plan - Diagnosis (1) NSTEMI (non-ST elevated myocardial infarction) Is this a current diagnosis for this admission?: Yes Plan: Continues to follow with the cardiology patients transfer to the [facility] as per discussed with the cardiac connections when the bed available discussed with the patient and the and update (2) Fever Qualifiers: Fever type: unspecified Qualified Code(s): R50.9 - Fever, unspecified Is this a current diagnosis for this admission?: Yes Plan: Patient with significant history of the ESBL urinary tract infections in the past see the infectious disease in [place] also will get the blood culture urine culture possible source may be a dialysis catheter continues the IV vancomycin through the dialysis and continues cefepime (3) Anemia in chronic kidney disease (CKD) Qualifiers: Chronic kidney disease stage: on chronic dialysis Qualified Code(s): N18.6 - End stage renal disease; D63.1 - Anemia in chronic kidney disease; Z99.2 - Dependence on renal dialysis Is this a current diagnosis for this admission?: Yes (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 Tavares (9) Gastroesophageal reflux disease Qualifiers: Esophagitis presence: without esophagitis Qualified Code(s): K21.9 - Gastro-esophageal reflux disease without esophagitis Is this a current diagnosis for this admission?: Yes Plan: Continues the Pepcid (10) Peripheral vascular disease Is this a current diagnosis for this admission?: Yes Plan: Patient is currently follow the vascular surgery at [place] (11) Pleural effusion Is this a current diagnosis for this admission?: Yes Plan: Patient have a several thoracocentesis done last year which all negative for Malignancy patients probably need a further thoracocentesis when cleared from the cardiac standpoint (12) Recurrent urinary tract infection Is this a current diagnosis for this admission?: Yes Plan: Patient have a recurrent urinary tract infection including the ESBL follow-up with the urology at [place] and follow-up with infectious disease at [place] we will send the urine for the culture (13) Sleep apnea syndrome Qualifiers: Sleep apnea type: unspecified type Is this a current diagnosis for this admission?: Yes Plan: Using the CPAP - Time Time Spent: Greater than 70 Minutes Critical Time spent with patient: 35 or more minutes Medications reviewed and adjusted accordingly: Yes Anticipated discharge: [facility]: when bed available - Inpatient Certification Based on my medical assessment, after consideration of the patient's comorbidities, presenting symptoms, or acuity I expect that the services needed warrant INPATIENT care.: Yes I certify that my determination is in accordance with my understanding of Medicare's requirements for reasonable and necessary INPATIENT services [42 CFR 412.3e].: Yes Medical Necessity: Significant Comorbidiites Make Outpatient Treatment Too Risky, Need for IV Antibiotics Post Hospital Care: D/C [facility] Documentation - Plan Summary Plan Summary: Admit the patient in [facility] patient is already waiting for the transfer to the [place] currently follow with the cardiology and nephrology discussed with the patient and her extensively regarding the patient's current conditions with the multiple comorbidity
--- NOTE | 2020-04-12 09:48 | PDOC TRANSFER SUMMARY ---
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) Is this a current diagnosis for this admission?: Yes (5) Cerebrovascular disease Is this a current diagnosis for this admission?: Yes (6) Chronic diastolic (congestive) heart failure Is this a current diagnosis for this admission?: Yes (7) Diabetes mellitus, type II Is this a current diagnosis for this admission?: Yes (8) ESRD on hemodialysis Is this a current diagnosis for this admission?: Yes (9) Gastroesophageal reflux disease Is this a current diagnosis for this admission?: Yes (10) Peripheral vascular disease Is this a current diagnosis for this admission?: Yes (11) Pleural effusion Is this a current diagnosis for this admission?: Yes (12) Recurrent urinary tract infection Is this a current diagnosis for this admission?: Yes (13) Sleep apnea syndrome Is this a current diagnosis for this admission?: Yes - Transfer Medications Transfer Medications: Current Medications Acetaminophen (Tylenol 325 Mg Tablet) 650 mg PO Q4HP PRN PRN Reason: FOR PAIN OR TEMP Stop: 05/11/20 20:44 Albuterol/Ipratropium (Duoneb 3 Ml Ampul) 3 ml NEB RTQ8HP PRN PRN Reason: SHORTNESS OF BREATH Stop: 05/11/20 20:44 Dextrose (Dextrose Inj 50% Syringe (25 Gm/50 Ml)) 12.5 gm IV PRN PRN; Protocol PRN Reason: FOR BG 50-69 IN ALERT PATIENT Stop: 05/11/20 20:49 Dextrose (Dextrose Inj 50% Syringe (25 Gm/50 Ml)) 25 gm IV PRN PRN; Protocol PRN Reason: PER PROTOCOL Stop: 05/11/20 20:49 Last Admin: 04/12/20 07:41 Dose: 25 gm Documented by: Famotidine (Pepcid 20 Mg Tablet) 20 mg PO Q12 OSCAR Stop: 05/11/20 21:59 Last Admin: 04/11/20 23:15 Dose: 20 mg Documented by: Glucagon (Glucagen Inj 1 Mg Vial) 1 mg IM PRN PRN; Protocol PRN Reason: Evaluate for BG < 70 Stop: 05/11/20 20:49 Glucose (Glutose 40% Gel 15 Gm Tube) 15 gm PO PRN PRN; Protocol PRN Reason: FOR BG 50-69 IN ALERT PATIENT Stop: 05/11/20 20:49 Last Admin: 04/12/20 06:23 Dose: 15 gm Documented by: Glucose (Glutose 40% Gel 15 Gm Tube) 30 gm PO PRN PRN; Protocol PRN Reason: FOR BG < 50 IN ALERT PATIENT Stop: 05/11/20 20:49 Heparin Sodium (Porcine) (Heparin Inj 5,000 Units/Ml 1 Ml Vial) 5,000 unit SUBCUT Q8 OSCAR Stop: 05/11/20 21:59 Last Admin: 04/12/20 05:35 Dose: Not Given Documented by: Heparin Sodium (Porcine) (Heparin Inj 1,000 Unit/Ml 10 Ml Vial) 0 - 12,000 unit IV .BOLUS PER PROTOCOL PRN; Protocol PRN Reason: RESPOND TO aPTT VALUES Stop: 05/12/20 08:29 Cefepime HCl (Maxipime Rtu 1 Gm/D5w 50 Ml Premix Bag) 1 gm in 50 mls @ 100 mls/hr IV QHS OSCAR Stop: 04/19/20 21:59 Heparin Sodium/Dextrose (Heparin Rtu 25,000 Unit/250 Ml D5w Premix) 25,000 unit in 250 mls @ 0 mls/hr IV CONTINUOUS PRN; Protocol PRN Reason: THIS MED IS NOT "PRN" Stop: 05/12/20 08:29 Insulin Human Lispro (Humalog Insulin 100 Unit/1 Ml 3 Ml Vial) 0 - 12 unit SUBCUT ACHS OSCAR; Protocol Stop: 05/11/20 21:59 Last Admin: 04/12/20 07:40 Dose: Not Given Documented by: Ondansetron HCl (Zofran Inj/Pf 4 Mg/2 Ml Sdv) 4 mg IV Q4HP PRN PRN Reason: FOR NAUSEA/VOMITING Stop: 05/11/20 20:44 - Allergies Allergies/Adverse Reactions: No Known Allergies Allergy (Verified 09/06/19 16:24) Hospital Course Hospital Course: This is a 64-year-old male with a significant medical problem as above presenting the emergency department with a fever and possible infection the dialysis catheter sites or chronic urinary tract infections with a history of ESBL found that patient have an acute non-ST myocardial infections patient seen by the cardiology and suggest to transfer the patient's to the cardiac conduction at [place] for further evaluations Patient is also start on a low-dose of heparins continues the current other medications patient also received the vancomycin after dialysis yesterday and currently receiving the IV antibiotic cefepime Patient's dialyzed yesterday as outpatient as per discussed with the nephrology scheduled for tomorrow for the dialysis Patient is currently denied any chest pain patient have a significant bilateral pleural effusion as usual patient have a thoracocentesis done in the past several times With the acute non-ST WA's with the multiple other comorbidity patients get a benefit to transfer to the tertiary center in [place] versus patients follow several subspecialty doctors over there Discussed with the patient and the and agree with the transfer Discussed with the coordinate research consultant here locally and discussed with the cardiac connection at [place] he is currently hemodynamically very stable patient's currently denied any complain Physical Exam Vital Signs: Temp Pulse Resp BP Pulse Ox 98.3 F 83 18 136/62 H 99 04/12/20 07:49 04/12/20 07:49 04/12/20 07:49 04/12/20 07:49 04/12/20 07:49 Intake & Output 04/11/20 04/12/20 04/13/20 06:59 06:59 06:59 Intake Total 310 Balance 310 Weight 53.7 kg General appearance: PRESENT: no acute distress, well-developed, well-nourished Head exam: PRESENT: atraumatic, normocephalic Eye exam: PRESENT: conjunctiva pink, EOMI, PERRLA. ABSENT: scleral icterus Ear exam: PRESENT: normal external ear exam Mouth exam: PRESENT: moist, tongue midline Neck exam: ABSENT: carotid bruit, JVD, lymphadenopathy, thyromegaly Respiratory exam: PRESENT: clear to auscultation jolie. ABSENT: rales, rhonchi, wheezes Cardiovascular exam: PRESENT: RRR. ABSENT: diastolic murmur, rubs, systolic murmur Pulses: PRESENT: normal dorsalis pedis pul Vascular exam: PRESENT: normal capillary refill GI/Abdominal exam: PRESENT: normal bowel sounds, soft. ABSENT: distended, guarding, mass, organolmegaly, rebound, tenderness Rectal exam: PRESENT: deferred Extremities exam: PRESENT: full ROM. ABSENT: calf tenderness, clubbing, pedal edema Neurological exam: PRESENT: alert, awake, oriented to person, oriented to place, oriented to time, oriented to situation. ABSENT: motor sensory deficit Psychiatric exam: PRESENT: appropriate affect, normal mood. ABSENT: homicidal ideation, suicidal ideation Skin exam: PRESENT: dry, intact, warm. ABSENT: cyanosis, rash Results Laboratory Results: 04/12/20 08:13 04/12/20 05:37 04/11/20 04/11/20 04/11/20 17:15 17:15 19:08 WBC 6.6 RBC 3.80 L Hgb 11.8 L Hct 35.6 L MCV 94 MCH 31.2 MCHC 33.3 RDW 15.2 H Plt Count 154 Seg Neutrophils % 77.7 Sodium Cancelled 138.5 Potassium Cancelled 3.9 Chloride Cancelled 101 Carbon Dioxide Cancelled 28 Anion Gap Cancelled 10 BUN Cancelled 24 H Creatinine Cancelled 2.30 H Est GFR ( Amer) Cancelled 35 L Est GFR (Non-Af Amer) Cancelled Glucose Cancelled 80 Calcium Cancelled 8.6 Total Bilirubin Cancelled 0.7 AST Cancelled 28 Alkaline Phosphatase Cancelled 151 H Total Protein Cancelled 8.8 H Albumin Cancelled 3.7 04/12/20 04/12/20 04/12/20 05:37 05:37 08:13 WBC Cancelled 6.6 RBC Cancelled 3.91 L Hgb Cancelled 12.2 L Hct Cancelled 36.9 L MCV Cancelled 95 MCH Cancelled 31.3 MCHC Cancelled 33.1 RDW Cancelled 15.1 H Plt Count Cancelled 146 L Seg Neutrophils % Cancelled 75.6 Sodium 139.2 Potassium 4.3 Chloride 102 Carbon Dioxide 27 Anion Gap 10 BUN 30 H Creatinine 2.78 H Est GFR ( Amer) 28 L Est GFR (Non-Af Amer) Glucose 58 L Calcium 9.0 Total Bilirubin 0.7 AST 43 Alkaline Phosphatase 143 H Total Protein 9.3 H Albumin 4.0 04/11/20 04/11/20 04/12/20 21:10 23:00 05:37 Creatine Kinase 215 H CK-MB (CK-2) Troponin I Cancelled 4.830 04/12/20 05:37 Creatine Kinase CK-MB (CK-2) 23.60 H Troponin I 7.310 Impressions: Abdomen/Pelvis CT 04/11/20 17:28 IMPRESSION: 1. Pleural effusions with associated airspace disease as described. Likely atelectasis. Renal atrophy. Nonobstructing intrarenal calculi. Aortic atherosclerosis with atherosclerosis involving the SMA, JUAN ALBERTO, and renal arteries. Constipation. Cannot exclude fecal impaction. Heterog eneous areas of sclerosis in the spine. Is there history of neoplasm? Chest CT 04/11/20 20:02 IMPRESSION: Large right and moderately large chronic appearing left pleural fluid collection. The appearance is similar to the examination from 2019 Areas of atelectasis in the lower lobes bilaterally with probable rounded atelectasis in the lingula, also unchanged Cardiac enlargement Extensive vascular calcification Head CT 04/12/20 00:00 IMPRESSION: CHRONIC CHANGES OF ATROPHY AND MICROVASCULAR ISCHEMIA. NO ACUTE PROCESS. EVIDENCE OF ACUTE STROKE: NO. Plan Time Spent: Greater than 30 Minutes - Transfer the patient's with the bed available to the [facility]
[2020-04-12 10:47] LABS: PARTIAL THROMBOPLASTIN TIME 32.4 SEC (23.5-35.8); PROTHROMBIN TIME 15.3 SEC (11.4-15.4)
--- NOTE | 2020-04-12 11:49 | EKG REPORT ---
SEVERITY:- ABNORMAL ECG - SINUS RHYTHM VENTRICULAR PREMATURE COMPLEX MOBITZ II AV BLOCK PROBABLE LEFT ATRIAL ABNORMALITY LEFT VENTRICULAR HYPERTROPHY INFERIOR INFARCT, AGE INDETERMINATE PROLONGED QT INTERVAL : Confirmed by: Kevon Madison MD 12-Apr-2020 11:49:00
[2020-04-12] MEDS ORDERED: CEFEPIME 1 GM/D5W RTU 1 GM/50 ML RTUPB IV SCH (22:00)
== END 2020-04-12 11:05 | disposition short-term general hospital (02) | DRG 280 ==
LOC: ER 16:27 → EH 20:33 → 3W 23:31
PROVIDERS: ADMIT Family Medicine; ATTEND Family Medicine
DX: I21.4 Non-ST elevation (NSTEMI) myocardial infarction (principal); N18.6 End stage renal disease; G61.0 Guillain-Barre syndrome; T86.11 Kidney transplant rejection; I50.32 Chronic diastolic (congestive) heart failure; N39.0 Urinary tract infection, site not specified; D63.1 Anemia in chronic kidney disease; Z99.2 Dependence on renal dialysis; E13.22 Other specified diabetes mellitus with diabetic chronic kidney disease; I25.10 Atherosclerotic heart disease of native coronary artery without angina pectoris; Z95.1 Presence of aortocoronary bypass graft; E11.51 Type 2 diabetes mellitus with diabetic peripheral angiopathy without gangrene; Z20.828 Contact with and (suspected) exposure to other viral communicable diseases; L89.152 Pressure ulcer of sacral region, stage 2; Z86.73 Personal history of transient ischemic attack (TIA), and cerebral infarction without residual deficits; I25.2 Old myocardial infarction; E78.5 Hyperlipidemia, unspecified; M19.90 Unspecified osteoarthritis, unspecified site; K21.9 Gastro-esophageal reflux disease without esophagitis; Z87.440 Personal history of urinary (tract) infections; G47.30 Sleep apnea, unspecified; Z79.4 Long term (current) use of insulin
CPT/HCPCS: 36415; 51701; 70450; 71250; 74176; 80053; 82550; 82553; 82962; 84484; 85025; 85610; 85730; 87040; 87077; 87150; 87186; 87635; 93005; 93010; 99285; J0692; J1644; J3490

== ENCOUNTER 2020-04-25 18:12 | Inpatient (IN) | payer MEDICARE ==
[2020-04-25] MEDS ORDERED: METOCLOPRAMIDE HCL INJ/PF 10 MG/2 ML SDV IV ONE (19:43)
[2020-04-25] MEDS ORDERED: DIPHENHYDRAMINE HCL 50 MG/ML VIAL IV ONE (19:44)
[2020-04-25] MEDS ORDERED: NORMAL SALINE 250 ML IV ONE (19:50)
--- NOTE | 2020-04-25 19:57 | ER Document Report ---
ED General - General Chief Complaint: Nausea/Vomiting/Diarrhea Stated Complaint: HYPOTENSION Time Seen by Provider: 04/25/20 18:51 Notes: 64 year old male arrives with complaints of weakness from HD. Low bp and fever and volumous loose stool similar to previous c diff. Sicly pt at baseline. Debilitated with dm, htn, cad, osteomyelitis, cardiac arrest. TRAVEL OUTSIDE OF THE [place] IN LAST 30 DAYS: No - HPI Onset: Just prior to arrival Onset/Duration: Sudden Quality of pain: No pain - Related Data Allergies/Adverse Reactions: sulfamethoxazole [From Bactrim] Allergy (Verified 04/25/20 19:00) trimethoprim [From Bactrim] Allergy (Verified 04/25/20 19:00) Past Medical History - Social History Smoking Status: Never Smoker Family History: Reviewed & Not Pertinent, CAD Patient has homicidal ideation: No - Past Medical History Cardiac Medical History: Reports: Hx Congestive Heart Failure, Hx Coronary Artery Disease, Hx Heart Attack, Hx Hypercholesterolemia Denies: Hx Hypertension Pulmonary Medical History: Reports: Hx Asthma, Hx Bronchitis, Hx Pneumonia, Hx Intubation, Hx Respiratory Failure, Hx Sleep Apnea - On C Pap Denies: Hx COPD Neurological Medical History: Denies: Hx Cerebrovascular Accident, Hx Seizures Endocrine Medical History: Reports: Hx Diabetes Mellitus Type 1, Hx Diabetes Mellitus Type 2 Renal/ Medical History: Reports: Hx End Stage Renal Disease, Hx Hemodialysis GI Medical History: Reports: Hx Gastroesophageal Reflux Disease Musculoskeletal Medical History: Reports Hx Arthritis Psychiatric Medical History: Reports: Hx Depression - anxiety Infectious Medical History: Reports: Hx C-Diff Past Surgical History: Reports: Hx Cardiac Catheterization, Hx Cardiac Surgery - bipass x4, Hx Coronary Artery Bypass Graft - Quadruple bypass 2007, Hx Kidney (Renal Surgery) - RENAL TRANSPLANT, Hx Vascular Surgery - left AV fistual, Other - History peritoneal dialysis catheter placement and removal - Immunizations Immunizations up to date: Yes Hx Diphtheria, Pertussis, Tetanus Vaccination: No Hx Pneumococcal Vaccination: 08/16/16 Review of Systems - Review of Systems Constitutional: See HPI, Weakness EENT: No symptoms reported Cardiovascular: No symptoms reported Respiratory: No symptoms reported Gastrointestinal: See HPI, Diarrhea, Nausea, Vomiting Genitourinary: No symptoms reported Male Genitourinary: No symptoms reported Musculoskeletal: No symptoms reported Skin: No symptoms reported Hematologic/Lymphatic: No symptoms reported Neurological/Psychological: No symptoms reported Physical Exam - Vital signs Vitals: Resp 29 H 04/25/20 18:33 Interpretation: Normal - General General appearance: Appears well, Alert - HEENT Head: Normocephalic, Atraumatic Eyes: Normal Pupils: PERRL - Respiratory Respiratory status: No respiratory distress Chest status: Nontender Breath sounds: Normal Chest palpation: Normal - Cardiovascular Rhythm: Regular Heart sounds: Normal auscultation Murmur: No - Abdominal Inspection: Normal Distension: No distension Bowel sounds: Normal Tenderness: Nontender Organomegaly: No organomegaly - Back Back: Normal, Nontender - Extremities General upper extremity: Normal inspection, Nontender, Normal color, Normal ROM, Normal temperature General lower extremity: Normal inspection, Nontender, Normal color, Normal ROM, Normal temperature, Normal weight bearing. No: Mariama's sign - Neurological Neuro grossly intact: Yes Cognition: Normal Orientation: AAOx4 Dominic Coma Scale Eye Opening: Spontaneous [place] Coma Scale Verbal: Oriented Dominic Coma Scale Motor: Obeys Commands Dominic Coma Scale Total: 15 Speech: Normal Motor strength normal: LUE, RUE, LLE, RLE Sensory: Normal - Psychological Associated symptoms: Normal affect, Normal mood - Skin Skin Temperature: Warm Skin Moisture: Dry Skin Color: Normal Course - Re-evaluation Re-evalutation: 04/26/20 02:07 MDM Chronically ill 64 year old male arrives with complaints of diarrhea like previous c diff and weakness. Sent from HD due to low BP. Denies chest pain or sob, however this unfortunate gentleman has multiple comorbidities including recent cardiac arrest, cad, htn, dm. I have discussed the pt with Dr. Girard and Dr. Tavares has been consulted as well. The pt will be admitted to [facility]. - Vital Signs Vital signs: Temp Pulse Resp BP Pulse Ox 98 F 85 26 H 107/60 94 04/25/20 18:57 04/25/20 18:57 04/25/20 21:01 04/25/20 21:00 04/25/20 20:01 - Laboratory Result Diagrams: 04/25/20 19:18 04/26/20 00:51 Laboratory results interpreted by me: 04/25/20 04/25/20 19:18 19:18 RBC 4.09 L Hgb 13.0 L RDW 15.9 H Lymph % (Auto) 9.8 L Absolute Neuts (auto) 8.5 H Seg Neutrophils % 85.1 H BUN 30 H Creatinine 2.42 H Est GFR ( Amer) 33 L Est GFR (MDRD) Non-Af 27 L Alkaline Phosphatase 187 H Total Protein 9.4 H - Diagnostic Test Radiology reviewed: Image reviewed, Reports reviewed - EKG Interpretation by Me EKG shows normal: Sinus rhythm Rhythm: NSR Voltage: Increased voltage - No St elevation or depression my interpretation. Critical Care Note - Critical Care Note Total time excluding time spent on procedures (mins): 30 Discharge - Discharge Clinical Impression: C. difficile colitis Diabetes mellitus, type II Qualifiers: Diabetes mellitus terminal worker insulin use: unspecified terminal worker insulin use status Diabetes mellitus complication status: with other specified complication Qualified Code(s): E11.69 - Type 2 diabetes mellitus with other specified complication Condition: Poor Disposition: ADMITTED INPATIENT Admitting Provider: Girard Unit Admitted: [facility]
[2020-04-25 20:14] LABS: ABSOLUTE EOSINOPHILS # (AUTO) 0.1 10^3/uL (0.0-0.6); EOSINOPHILS % (AUTO) 0.8 % (0-6); TOTAL CELLS COUNTED % (AUTO) 100 %
[2020-04-25 20:26] LABS: ABSOLUTE MONOCYTES (AUTO) 0.4 10^3/uL (0.1-1.4); ABSOLUTE NEUT (AUTO) 8.5 10^3/uL (1.7-8.2); BASOPHILS % (AUTO) 0.1 % (0-2); LYMPHOCYTES % (AUTO) 9.8 % (13-45); MEAN CORPUSCULAR HEMOGLOBIN 31.9 pg (27.0-33.4); MEAN CORPUSCULAR HGB CONC 33.5 g/dL (32.0-36.0); MEAN CORPUSCULAR VOLUME 95 fl (80-97); MONOCYTES % (AUTO) 4.2 % (3-13); PLATELET COUNT 221 10^3/uL (150-450); RED BLOOD COUNT 4.09 10^6/uL (4.35-5.55); RED CELL DISTRIBUTION WIDTH 15.9 % (11.5-14.0); SEGMENTED NEUTROPHILS % (AUTO) 85.1 % (42-78)
[2020-04-25 20:34] LABS: ALBUMIN 4.1 g/dL (3.5-5.0); ALKALINE PHOSPHATASE 187 U/L (38-126); ANION GAP 12 (5-19); ASPARTATE AMINO TRANSFERASE 28 U/L (17-59); BILIRUBIN,DIRECT 0.2 mg/dL (0.0-0.4); BILIRUBIN,TOTAL 0.5 mg/dL (0.2-1.3); BLOOD UREA NITROGEN 30 mg/dL (7-20); CALCIUM 9.3 mg/dL (8.4-10.2); CARBON DIOXIDE 27 mmol/L (22-30); CHLORIDE 99 mmol/L (98-107); GLUCOSE 94 mg/dL (75-110); POTASSIUM 3.7 mmol/L (3.6-5.0); TOTAL PROTEIN 9.4 g/dL (6.3-8.2)
--- NOTE | 2020-04-25 21:32 | RADIOLOGY REPORT (SQ) ---
XR CHEST 1 VIEW HISTORY: Hypertension. COMPARISON: 10/18/2019 FINDINGS: There are small pleural effusions with adjacent airspace disease in both lungs. The heart size is mildly enlarged with mild pulmonary vascular congestion and prior cardiac surgery noted. The right central venous line is stable. IMPRESSION: Pulmonary edema with small pleural effusions and adjacent airspace disease.
[2020-04-25 22:17] LABS: C DIFFICILE GDH POSITIVE (NEGATIVE)
[2020-04-25] MEDS ORDERED: METRONIDAZOLE 500 MG/NS RTU 100 ML IV ONE (22:57)
[2020-04-25] MEDS ORDERED: ACETAMINOPHEN 325 MG TABLET PO PRN (22:58)
[2020-04-25] MEDS ORDERED: ONDANSETRON HCL INJ/PF 4 MG/2 ML SDV IV PRN (22:58)
[2020-04-25] MEDS ORDERED: DEXTROSE 50%-WATER 25 GM/50 ML DISP.SYRIN IV PRN ×2 (23:02)
[2020-04-25] MEDS ORDERED: DEXTROSE 40% GEL 15 GM TUBE PO PRN ×2 (23:02)
[2020-04-25] MEDS ORDERED: GLUCAGON,HUMAN RECOMB 1 MG INJ IM PRN (23:02)
[2020-04-26] MEDS: METRONIDAZOLE 500 MG/NS RTU 500 MG/100 ML RTUPB IV SCH ×4 (00:27→17:15)
[2020-04-26 01:18] LABS: ANION GAP 11 (5-19); BLOOD UREA NITROGEN 34 mg/dL (7-20); CALCIUM 9.2 mg/dL (8.4-10.2); CARBON DIOXIDE 24 mmol/L (22-30); CHLORIDE 102 mmol/L (98-107); GLUCOSE 83 mg/dL (75-110); POTASSIUM 4.1 mmol/L (3.6-5.0)
[2020-04-26] MEDS: HEPARIN SOD (PORCINE) 5,000 UNIT/ML 1 ML VIAL SUBCUT SCH ×3 (06:08→23:05)
[2020-04-26] MEDS ORDERED: NORMAL SALINE 250 ML IV ONE ×2 (06:45→11:30)
--- NOTE | 2020-04-26 08:03 | EKG REPORT ---
SEVERITY:- ABNORMAL ECG - ATRIAL FIBRILLATION, V-RATE 66-124 VENTRICULAR BIGEMINY INFERIOR INFARCT, AGE INDETERMINATE BORDERLINE R WAVE PROGRESSION, ANTERIOR LEADS BORDERLINE ST ELEVATION, ANTEROLATERAL LEADS : Confirmed by: Samia Roper MD 26-Apr-2020 08:02:50
[2020-04-26] MEDS ORDERED: DOPAMINE HCL/DEXTROSE 5%-WATER 800 MG/250 ML RTUINJ IV PRN (08:13)
[2020-04-26 08:25] LABS: ABSOLUTE EOSINOPHILS # (AUTO) 0.1 10^3/uL (0.0-0.6); ABSOLUTE LYMPHOCYTES (AUTO) 1.9 10^3/uL (0.5-4.7); ABSOLUTE MONOCYTES (AUTO) 0.6 10^3/uL (0.1-1.4); ABSOLUTE NEUT (AUTO) 11.1 10^3/uL (1.7-8.2); BASOPHILS % (AUTO) 0.2 % (0-2); EOSINOPHILS % (AUTO) 0.5 % (0-6); HEMATOCRIT 37.5 % (37.9-51.0); HEMOGLOBIN 12.4 g/dL (13.5-17.0); LYMPHOCYTES % (AUTO) 13.6 % (13-45); MEAN CORPUSCULAR HEMOGLOBIN 31.4 pg (27.0-33.4); MEAN CORPUSCULAR HGB CONC 32.9 g/dL (32.0-36.0); MEAN CORPUSCULAR VOLUME 95 fl (80-97); MONOCYTES % (AUTO) 4.1 % (3-13); PLATELET COUNT 212 10^3/uL (150-450); RED BLOOD COUNT 3.94 10^6/uL (4.35-5.55); RED CELL DISTRIBUTION WIDTH 15.6 % (11.5-14.0); SEGMENTED NEUTROPHILS % (AUTO) 81.6 % (42-78); TOTAL CELLS COUNTED % (AUTO) 100 %; WHITE BLOOD COUNT 13.6 10^3/uL (4.0-10.5)
[2020-04-26 08:50] LABS: CREATINE KINASE MB 4.11 ng/mL (<4.55); TROPONIN I 0.251 ng/mL
[2020-04-26] MEDS: INSULIN LISPRO 100 UNIT/ML 3 ML VIAL SUBCUT SCH ×4 (08:59→23:07)
--- NOTE | 2020-04-26 09:46 | PDOC H&P ---
History of Present Illness Admission Date/PCP: 04/26/20 00:19 KEEGAN MONTENEGRO MD Patient complains of: Hypotension/ fever History of Present Illness: KATHRYN HURLEY is a 64 year old maleWith a very complex medical problems including the history of type 2 diabetes with a history of the end-stage renal disease status post renal transplant reject currently on hemodialysisAnd a history of the coronary artery disease status post cardiac arrest status post bypassAnd history of the Guillain-[place] syndrome status post renal transplantAnd a history of strokeHistory of the ESBL in the urine and the multiple C. difficile issues. Patient's went to the hemodialysis yesterday and complaining of weakness and patient's blood pressure was in the 80 range and patient was some low-grade fever according to the patient have a loose stool for the last several days Patient also receiving some IV antibiotic for 4 weeks due to the some kind of infections of the catheter site Patient with a history of the C. difficile in the past in the dialysis patient's blood pressure was low sent to the emergency department with patient's blood pressure was in the 80 range patient received the 250 cc of the bolus goes to up to 97 discussed with the nephrology by ER physician and suggest to admit the patient's Patient also received another 250 cc bolus patient's when I saw it alert awake oriented x4 just feeling weak Patient's cardiac enzyme is elevated patient is recently transferred to the [facility] last month and according to the patient's the [place] scaler told that everything is okay have echocardiogram done Discussed with the Dr. Berkowitz here regarding the elevated cardiac enzymes all of the EKG suggest stopping the dopamine drip because of the hypotension Patient's also will check the cortisol level as per discussed with the circular knitter because patient is always very high risk about the multiple complications I think patient is currently stable in IMCU But again discussed with the circular knitter possible may need to be transferred to the ICU if is not getting better with the blood pressures We will get the EKG chest x-ray and ABG Try to contact the patient's white unable to contact her Discussed with the superintendent [facility] at this point is okay to give her some more IV fluid We will start the p.o. vancomycin and continues the IV Flagyl discussed with nephrology about IV antibiotic he will get the medical record from the dialysis center Past Medical History Cardiac Medical History: Reports: Congestive Heart Failure, Coronary Artery Disease, Myocardial Infarction, Hyperlipidema Denies: Hypertension Pulmonary Medical History: Reports: Asthma, Bronchitis, Intubation, Pneumonia, Respiratory Failure, Sleep Apnea - On C Pap Denies: Chronic Obstructive Pulmonary Disease (COPD) Neurological Medical History: Denies: Seizures Endocrine Medical History: Reports: Diabetes Mellitus Type 2 Renal/ Medical History: Reports: End Stage Renal Disease GI Medical History: Reports: Gastroesophageal Reflux Disease Musculoskeltal Medical History: Reports: Arthritis Psychiatric Medical History: Reports: Depression - anxiety Hematology: Denies: Anemia Infectious Medical History: Reports: Clostridium Difficile Past Surgical History Past Surgical History: Reports: Cardiac Catheterization, Coronary Artery Bypass Graft - Quadruple bypass 2007, Vascular Surgery - left AV fistual, Other - History peritoneal dialysis catheter placement and removal Social History Smoking Status: Never Smoker Frequency of Alcohol Use: None Hx Recreational Drug Use: No Drugs: None Hx Prescription Drug Abuse: No Family History Family History: Reviewed & Not Pertinent, CAD Parental Family History Reviewed: Yes Children Family History Reviewed: Yes Sibling(s) Family History Reviewed.: Yes Medication/Allergy Home Medications: Albuterol Sulfate [Albuterol Sulfate Hfa] 2 puff IH Q4HP PRN 04/12/20 Bimatoprost [Lumigan 0.01% Oph Soln 2.5 ml/Bottle] 1 drop OU QHS 04/12/20 Allergies/Adverse Reactions: sulfamethoxazole [From Bactrim] Allergy (Verified 04/25/20 19:00) trimethoprim [From Bactrim] Allergy (Verified 04/25/20 19:00) Review of Systems Constitutional: ABSENT: chills, fever(s), headache(s), weight gain, weight loss Eyes: ABSENT: visual disturbances Ears: ABSENT: hearing changes Cardiovascular: ABSENT: chest pain, dyspnea on exertion, edema, orthropnea, palpitations Respiratory: ABSENT: cough, hemoptysis Gastrointestinal: PRESENT: nausea. ABSENT: abdominal pain, constipation, diarrhea, hematemesis, hematochezia, vomiting Genitourinary: ABSENT: dysuria, hematuria Musculoskeletal: ABSENT: joint swelling Integumentary: ABSENT: rash, wounds Neurological: ABSENT: abnormal gait, abnormal speech, confusion, dizziness, focal weakness, syncope Psychiatric: ABSENT: anxiety, depression, homidical ideation, suicidal ideation Endocrine: ABSENT: cold intolerance, heat intolerance, menstrual abnormalities, polydipsia, polyuria Hematologic/Lymphatic: ABSENT: easy bleeding, easy bruising, lymphadenopathy Physical Exam Vital Signs: Temp Pulse Resp BP Pulse Ox 97.4 F 49 L 16 101/38 L 100 04/26/20 08:21 04/26/20 08:21 04/26/20 08:21 04/26/20 08:21 04/26/20 08:21 Intake & Output 04/25/20 04/26/20 04/27/20 06:59 06:59 06:59 Intake Total 350 Balance 350 Weight 53 kg General appearance: PRESENT: no acute distress Head exam: PRESENT: atraumatic, normocephalic Eye exam: PRESENT: conjunctiva pink, EOMI, PERRLA. ABSENT: scleral icterus Ear exam: PRESENT: normal external ear exam Mouth exam: PRESENT: moist, tongue midline Neck exam: PRESENT: full ROM. ABSENT: carotid bruit, JVD, lymphadenopathy, thyromegaly Respiratory exam: PRESENT: clear to auscultation jolie Cardiovascular exam: PRESENT: RRR. ABSENT: diastolic murmur, rubs, systolic murmur Vascular exam: PRESENT: normal capillary refill GI/Abdominal exam: PRESENT: normal bowel sounds, soft. ABSENT: distended, guarding, mass, organolmegaly, rebound, tenderness Rectal exam: PRESENT: deferred Neurological exam: PRESENT: alert, awake, oriented to person, oriented to place, oriented to time, oriented to situation. ABSENT: motor sensory deficit Psychiatric exam: PRESENT: appropriate affect, normal mood. ABSENT: homicidal ideation, suicidal ideation Skin exam: PRESENT: dry, intact, warm. ABSENT: cyanosis, rash Results Laboratory Results: 04/26/20 07:45 04/26/20 00:51 04/25/20 04/25/20 04/25/20 19:18 19:18 20:17 WBC 10.0 RBC 4.09 L Hgb 13.0 L Hct 39.0 MCV 95 MCH 31.9 MCHC 33.5 RDW 15.9 H Plt Count 221 Seg Neutrophils % 85.1 H Sodium 138.2 Potassium 3.7 Chloride 99 Carbon Dioxide 27 Anion Gap 12 BUN 30 H Creatinine 2.42 H Est GFR ( Amer) 33 L Glucose 94 Lactic Acid Calcium 9.3 Magnesium Total Bilirubin 0.5 AST 28 Alkaline Phosphatase 187 H Total Protein 9.4 H Albumin 4.1 Stl C.difficile Tox PCR POSITIVE 04/25/20 04/26/20 04/26/20 21:22 00:51 07:45 WBC 13.6 H RBC 3.94 L Hgb 12.4 L Hct 37.5 L MCV 95 MCH 31.4 MCHC 32.9 RDW 15.6 H Plt Count 212 Seg Neutrophils % 81.6 H Sodium 137.4 Potassium 4.1 Chloride 102 Carbon Dioxide 24 Anion Gap 11 BUN 34 H Creatinine 2.58 H Est GFR ( Amer) 30 L Glucose 83 Lactic Acid 1.5 Calcium 9.2 Magnesium Total Bilirubin AST Alkaline Phosphatase Total Protein Albumin Stl C.difficile Tox PCR 04/26/20 07:45 WBC RBC Hgb Hct MCV MCH MCHC RDW Plt Count Seg Neutrophils % Sodium Potassium Chloride Carbon Dioxide Anion Gap BUN Creatinine Est GFR ( Amer) Glucose Lactic Acid Calcium Magnesium 1.9 Total Bilirubin AST Alkaline Phosphatase Total Protein Albumin Stl C.difficile Tox PCR 04/25/20 04/26/20 04/26/20 19:18 00:51 07:45 Creatine Kinase 182 H CK-MB (CK-2) Troponin I 0.127 0.151 04/26/20 07:45 Creatine Kinase CK-MB (CK-2) 4.11 Troponin I 0.251 Assessment & Plan - Diagnosis (1) Sepsis associated hypotension Is this a current diagnosis for this admission?: Yes Plan: Patient is definitely have underlying some sepsis will get the IV Flagyl and p.o. vancomycin's will continues the IV antibiotic as per the dialysis discussed with the nephrology about that Discussed with the patient's and according to the patient's patient have infections in the blood in the SPEP patient was getting the 4 weeks antibiotics patient have a history of the ESBL in the past Discussed with the circular knitter in case of the patient's not getting better require more pressure needs to go to the ICU (2) C. difficile colitis Is this a current diagnosis for this admission?: Yes Plan: We will start the patient on a p.o. vancomycin and IV Flagyl patient is recently have a some sepsis will get the blood culture urine cultures will get the medical record from the [place] and consult infectious disease with ongoing problem with the sepsis C. difficile (3) Diabetes mellitus, type II Qualifiers: Diabetes mellitus terminal carman insulin use: unspecified terminal carman insulin use status Diabetes mellitus complication status: with other specified complication Qualified Code(s): E11.69 - Type 2 diabetes mellitus with other specified complication Is this a current diagnosis for this admission?: Yes (4) Anemia in chronic kidney disease (CKD) Qualifiers: Chronic kidney disease stage: on chronic dialysis Qualified Code(s): N18.6 - End stage renal disease; D63.1 - Anemia in chronic kidney disease; Z99.2 - Dependence on renal dialysis Is this a current diagnosis for this admission?: Yes Plan: Currently follow with the nephrology (5) Cerebrovascular disease Is this a current diagnosis for this admission?: Yes (6) Chronic diastolic (congestive) heart failure Is this a current diagnosis for this admission?: Yes (7) Coronary artery disease Qualifiers: Coronary Disease-Associated Artery/Lesion type: unspecified vessel or lesion type [place] vs. transplanted heart: [place] heart Associated angina: angina presence unspecified Qualified Code(s): I25.10 - Atherosclerotic heart disease of [place] coronary artery without angina pectoris Is this a current diagnosis for this admission?: Yes Plan: We consulted Dr. BERKOWITZ due to the elevated troponin we will get the medical record from the [place] (8) ESRD on hemodialysis Is this a current diagnosis for this admission?: Yes Plan: Follow-up with the nephrology (9) Elevated troponin I level Is this a current diagnosis for this admission?: Yes Plan: Most likely due to the troponin leak no sign of any acute coronary syndromes will consult with the cardiology (10) Gastroesophageal reflux disease Qualifiers: Esophagitis presence: without esophagitis Qualified Code(s): K21.9 - Gastro-esophageal reflux disease without esophagitis Is this a current diagnosis for this admission?: Yes Plan: Will continues the Pepcid twice a day (11) History of kidney transplant Is this a current diagnosis for this admission?: Yes (12) Sleep apnea syndrome Qualifiers: Sleep apnea type: unspecified type Is this a current diagnosis for this admission?: Yes Plan: Continues uses CPAP (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) Is this a current diagnosis for this admission?: Yes - Time Time Spent: 50 to 70 Minutes Medications reviewed and adjusted accordingly: Yes Anticipated discharge: Other Within: Other - Inpatient Certification Based on my medical assessment, after consideration of the patient's comorbid ities, presenting symptoms, or acuity I expect that the services needed warrant INPATIENT care.: Yes I certify that my determination is in accordance with my understanding of Medicare's requirements for reasonable and necessary INPATIENT services [42 CFR 412.3e].: Yes Medical Necessity: Failure to Improve With Outpatient Therapy, Significant Comorbidiites Make Outpatient Treatment Too Risky, Need for IV Antibiotics, Risk of Complication if Not Cared For in Hospital Post Hospital Care: Other - Plan Summary Plan Summary: Admit the patient's in IMCUSepsis protocol Start on IV Flagyl and p.o. vancomycin for the C. difficile Consult to nephrology and cardiology We consult the infectious disease with ongoing problem with this line up antibiotic related resistance we will get the medical record from the [place] Discussed with the very extensively regarding the patient's current conditions with the multiple comorbidity Also discussed with the circular knitter ordered a cortisol level
--- NOTE | 2020-04-26 10:04 | RADIOLOGY REPORT (SQ) ---
EXAM DESCRIPTION: CHEST SINGLE VIEW IMAGES COMPLETED DATE/TIME: 04/26/2020 9:28 am REASON FOR STUDY: chf COMPARISON: Chest films 04/25/2020, 10/18/2019, 07/28/2019 CT chest 03/22/2020 EXAM PARAMETERS: NUMBER OF VIEWS: One view. TECHNIQUE: Single frontal radiographic view of the chest acquired. RADIATION DOSE: NA LIMITATIONS: None. FINDINGS: LUNGS AND PLEURA: Trace right pleural effusion, decreased compared to CT chest 04/11/2020. Chronic loculated pleural fluid in the left posterior and lateral costophrenic sulcus stable. No acute infiltrates. No pneumothorax. MEDIASTINUM AND HILAR STRUCTURES: No masses. Contour normal. HEART AND VASCULAR STRUCTURES: Stable borderline cardiomegaly post CABG BONES: No acute findings. HARDWARE: Right jugular central venous dialysis catheter tip in the right atrium OTHER: No other significant finding. IMPRESSION: Decrease in right pleural effusion compared to CT chest 04/11/2020 TECHNICAL DOCUMENTATION: JOB ID: [id number] 2010 [employer]- All Rights Reserved Reading location - IP/workstation name: [email or web address]
[2020-04-26 10:07] LABS: ARTERIAL BLOOD H2CO3 1.74 mmol/L (1.05-1.35); ARTERIAL BLOOD HCO3 26.6 mmol/L (20-24); ARTERIAL BLOOD O2 SATURATION 97.7 % (94-98); ARTERIAL BLOOD PCO2 57.7 mmHg (35-45); ARTERIAL BLOOD PH 7.28 (7.35-7.45); ARTERIAL BLOOD PO2 115.9 mmHg (80-100); ARTERIAL BLOOD TOTAL CO2 28.3 mmol/L (23-27)
[2020-04-26 10:08] LABS: ARTERIAL BLOOD FIO2 28%
[2020-04-26] MEDS ORDERED: NORMAL SALINE 1000 ML 1,000 ML IV PRN (10:58)
--- NOTE | 2020-04-26 11:28 | PDOC CONSULTATION ---
Consultation Consult Date: 04/26/20 Provider Consulted: Goyo ZIMMERMAN Consult reason:: ESRD in shock. History of Present Illness Admission Date/PCP: 04/26/20 00:19 KEEGAN GIRARD MD History of Present Illness: KATHRYN HURLEY is a 64 year old male with a very complex medical problems including the history of ESRD on HD in the background of type 2 diabetes, Hypertension, Mobitz 1 second-degree heart block-status post pacemaker, CAD status post four-vessel CABG 2007 and PCI in 2017, congestive cardiomyopathy with an ejection fraction of 40%, history of sudden /PEA 2017, PAD status post right superficial femoral artery balloon angioplasty, prior CVA, recurrent bilateral pleural effusions status post several thoracentesis, Guillain-[place] syndrome with [id number], RUDY noncompliant with CPAP failed renal transplant, history of multiple drug-resistant infections including with MRSA/VRE/ESBL E. coli was admitted yesterday from dialysis with history of persistent and severe and vomiting. He was also mentioning that he has been hav ing a history of diarrhea 4-6 times a day for the last couple of days. Patient was recently admitted to [facility] on 04/12 and discharged on 04/17. He was diagnosed with MSSA bacteremia secondary to catheter infection which was exchanged. He had an echocardiogram which showed EF of 40-45%, anterolateral hypokinesis and moderate concentric LV hypertrophy. Initial consideration was done towards doing a ALIZA to rule out endocarditis given MSSA bacteremia. However ID recommended 4 weeks of Ancef at each dose given after dialysis with no need for ALIZA at that time. End date for cefazolin would be 05-11-20.. Evaluations the ER revealed that patient was in shock with his blood pressure in the 80s systolics. He was given fluid resuscitation and then later started on dopamine. His stool has come back positive for C. difficile and he has been begun on p.o. vancomycin as well IV Flagyl. Patient today feels much better than what he felt yesterday. He looks more comfortable and rested. Ongoing diarrhea.Labs and medications were reviewed. His status was discussed with his treating nurse. Also discussed with Dr. Girard. Past Medical History Cardiac Medical History: Reports: CHF-Diastolic, Coronary Artery Disease, Hyperlipidemia, Hypertension-primary, Myocardial Infarction Pulmonary Medical History: Reports: Asthma, Bronchitis, Intubation, Pneumonia, Respiratory Failure, Sleep Apnea - On C Pap Denies: Chronic Obstructive Pulmonary Disease (COPD) Neurological Medical History: Denies: Seizures Endocrine Medical History: Reports: Diabetes Mellitus Type 2 Complications of Diabetes: Reports: Nephropathy Renal/ Medical History: Reports: End Stage Renal Disease, Secondary Hyperparathyroidism GI Medical History: Reports: Gastroesophageal Reflux Disease Musculoskeltal Medical History: Reports: Arthritis Psychiatric Medical History: Reports: Depression - anxiety Infectious Medical History: Reports: Clostridium Difficile Hematology Medical History: Reports Anemia of Chronic Kidney Disease Past Surgical History Past Surgical History: Reports: Cardiac Catheterization, Coronary Artery Bypass Graft - Quadruple bypass 2007, Vascular Surgery - left AV fistual, Other - History peritoneal dialysis catheter placement and removal Social History Smoking Status: Never Smoker Frequency of Alcohol Use: None Hx Recreational Drug Use: No Drugs: None Hx Prescription Drug Abuse: No Family History Parental Family History Reviewed: Yes - Negative for ESRD Children Family History Reviewed: No Sibling(s) Family History Reviewed.: No Medication/Allergy Home Medications: Albuterol Sulfate [Albuterol Sulfate Hfa] 2 puff IH Q4HP PRN 04/12/20 Bimatoprost [Lumigan 0.01% Oph Soln 2.5 ml/Bottle] 1 drop OU QHS 04/12/20 Allergies/Adverse Reactions: sulfamethoxazole [From Bactrim] Allergy (Verified 04/25/20 19:00) trimethoprim [From Bactrim] Allergy (Verified 04/25/20 19:00) Review of Systems Constitutional: PRESENT: anorexia, fatigue, weakness, weight loss. ABSENT: chills, fever(s), headache(s), night sweats Nose, Mouth, and Throat: ABSENT: mouth pain, sore throat Cardiovascular: ABSENT: chest pain, edema, orthropnea, palpitations Respiratory: ABSENT: dyspnea, hemoptysis Gastrointestinal: PRESENT: diarrhea, nausea, vomiting. ABSENT: abdominal pain, coffee ground emesis, hematemesis, hematochezia Musculoskeletal: ABSENT: deformity, joint swelling Integumentary: ABSENT: lesions, pruritus Neurological: ABSENT: abnormal movements, abnormal speech, confusion, focal weakness, frequent falls Endocrine: ABSENT: heat intolerance Hematologic/Lymphatic: ABSENT: easy bruising, lymphadenopathy Physical Exam Vital Signs: Temp Pulse Resp BP Pulse Ox 97.4 F 59 L 16 101/38 L 100 04/26/20 08:21 04/26/20 09:50 04/26/20 09:50 04/26/20 08:21 04/26/20 09:50 Intake & Output 04/25/20 04/26/20 04/27/20 06:59 06:59 06:59 Intake Total 350 Balance 350 Weight 53 kg General appearance: PRESENT: no acute distress, disheveled Exam: Patient is very weak and debilitated. Eye exam: PRESENT: EOMI, PERRLA. ABSENT: scleral icterus Ear exam: PRESENT: normal external ear exam Mouth exam: PRESENT: neck supple. ABSENT: moist Neck exam: ABSENT: lymphadenopathy, meningismus, tenderness, thyromegaly, tracheal deviation Respiratory exam: PRESENT: clear to auscultation jolie, decreased breath sounds. ABSENT: crackles Cardiovascular exam: PRESENT: +S1, +S2 GI/Abdominal exam: PRESENT: normal bowel sounds, soft. ABSENT: organomegaly, tenderness Extremities exam: ABSENT: pedal edema Neurological exam: PRESENT: alert, awake, oriented to person Psychiatric exam: PRESENT: appropriate affect Skin exam: PRESENT: dry. ABSENT: cyanosis, rash Results Laboratory Results: 04/26/20 07:45 04/26/20 00:51 04/25/20 04/25/20 04/25/20 19:18 19:18 20:17 WBC 10.0 RBC 4.09 L Hgb 13.0 L Hct 39.0 MCV 95 MCH 31.9 MCHC 33.5 RDW 15.9 H Plt Count 221 Seg Neutrophils % 85.1 H Carbonic Acid HCO3/H2CO3 Ratio ABG pH ABG pCO2 ABG pO2 ABG HCO3 ABG O2 Saturation ABG Base Excess FiO2 Sodium 138.2 Potassium 3.7 Chloride 99 Carbon Dioxide 27 Anion Gap 12 BUN 30 H Creatinine 2.42 H Est GFR ( Amer) 33 L Glucose 94 Lactic Acid Calcium 9.3 Magnesium Total Bilirubin 0.5 AST 28 Alkaline Phosphatase 187 H Total Protein 9.4 H Albumin 4.1 Stl C.difficile Tox PCR POSITIVE 04/25/20 04/26/20 04/26/20 21:22 00:51 07:45 WBC 13.6 H RBC 3.94 L Hgb 12.4 L Hct 37.5 L MCV 95 MCH 31.4 MCHC 32.9 RDW 15.6 H Plt Count 212 Seg Neutrophils % 81.6 H Carbonic Acid HCO3/H2CO3 Ratio ABG pH ABG pCO2 ABG pO2 ABG HCO3 ABG O2 Saturation ABG Base Excess FiO2 Sodium 137.4 Potassium 4.1 Chloride 102 Carbon Dioxide 24 Anion Gap 11 BUN 34 H Creatinine 2.58 H Est GFR ( Amer) 30 L Glucose 83 Lactic Acid 1.5 Calcium 9.2 Magnesium Total Bilirubin AST Alkaline Phosphatase Total Protein Albumin Stl C.difficile Tox PCR 04/26/20 04/26/20 07:45 09:34 WBC RBC Hgb Hct MCV MCH MCHC RDW Plt Count Seg Neutrophils % Carbonic Acid 1.74 H HCO3/H2CO3 Ratio 15:1 ABG pH 7.28 L ABG pCO2 57.7 H ABG pO2 115.9 H ABG HCO3 26.6 H ABG O2 Saturation 97.7 ABG Base Excess -1.0 FiO2 28% Sodium Potassium Chloride Carbon Dioxide Anion Gap BUN Creatinine Est GFR ( Amer) Glucose Lactic Acid Calcium Magnesium 1.9 Total Bilirubin AST Alkaline Phosphatase Total Protein Albumin Stl C.difficile Tox PCR 04/25/20 04/26/20 04/26/20 19:18 00:51 07:45 Creatine Kinase 182 H CK-MB (CK-2) Troponin I 0.127 0.151 04/26/20 07:45 Creatine Kinase CK-MB (CK-2) 4.11 Troponin I 0.251 Impressions: Chest X-Ray 04/26/20 00:00 IMPRESSION: Decrease in right pleural effusion compared to CT chest 04/11/2020 Assessment & Plan - Diagnosis (1) Hemodialysis catheter infection Plan: Patient was admitted in [place] approximately 2 weeks ago and had a catheter exchange and begun on antibiotics and was told to continue for 4 weeks end date 05-11. He was discharged on IV cefazolin and which he has been receiving as an outpatient at [facility].. (2) C. difficile colitis Is this a current diagnosis for this admission?: Yes Plan: Patient currently diagnosed with C. difficile colitis with hypovolemic shock. He has got a previous history of C. difficile. Currently started on p.o. vancomycin and IV Flagyl. 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 (4) Sepsis associated hypotension Is this a current diagnosis for this admission?: Yes Plan: Patient needs continuing IV fluids. I am going to order normal saline at 75 cc an hour for 2 L. (5) Anemia in chronic kidney disease (CKD) Qualifiers: Chronic kidney disease stage: on chronic dialysis Qualified Code(s): N18.6 - End stage renal disease; D63.1 - Anemia in chronic kidney disease; Z99.2 - Dependence on renal dialysis Is this a current diagnosis for this admission?: Yes Plan: Currently stable. Monitor. 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 (7) ESRD on hemodialysis Is this a current diagnosis for this admission?: Yes Plan: Plan for dialysis in the morning. Orders have been placed. (8) History of infection due to ESBL Escherichia coli Plan: Status quo. Monitor. (9) Recurrent urinary tract infection Plan: History of.
--- NOTE | 2020-04-26 13:41 | Progress Note ---
Provider Note Provider Note: [facility] ID Telephone Advice Consultation Chart reviewed. Patient is a 64-year-old man with ESRD on HD, failed renal t ransplant, DM2, multiple episodes of CDI, CHF, CAD s/p CABG, RUDY, GERD. Tammie was rcently admitted to [facility] in March due to infected perm cath with MSSA for which he had the catheter removed and was recommended to complete 4 weeks of cefazolin. EOT is supposed to be 05/11/20. He was discharged from [facility] and was receiving HD. He started feeling sick during HD, he was also having diarrhea 4- 6 episodes a day. He had fever and chills. He was taken to the ED. He was found with leukocytosis of 13k. C diff GDH is positive and PCR as well, but toxin assay was negative. He was started on vancomycin and metronidazole. Blood cultures are in process. ID consulted for recommendations. PMH: ESRD on HD CDI CAD RUDY DM2 GERD PSH: CABG Kidney transplant AVF ALlergies: sulfamethoxazole [From Bactrim] Allergy (Verified 04/25/20 19:00) trimethoprim [From Bactrim] Allergy (Verified 04/25/20 19:00) Medications: Albuterol Sulfate [Albuterol Sulfate Hfa] 2 puff IH Q4HP PRN 04/12/20 Bimatoprost [Lumigan 0.01% Oph Soln 2.5 ml/Bottle] 1 drop OU QHS 04/12/20 Vital Signs: Temp Pulse Resp BP Pulse Ox 97.4 F 71 14 111/62 100 04/26/20 12:18 04/26/20 12:18 04/26/20 12:18 04/26/20 12:18 04/26/20 09:50 Intake & Output 04/25/20 04/26/20 04/27/20 06:59 06:59 06:59 Intake Total 350 Balance 350 Weight 53 kg 53 kg Weight/Height Weight 53 kg Height 5 ft 1 in Laboratories: 04/26/20 07:45 04/26/20 00:51 MCV 95 fl (80-97) 04/26/20 07:45 MCH 31.4 pg (27.0-33.4) 04/26/20 07:45 MCHC 32.9 g/dL (32.0-36.0) 04/26/20 07:45 RDW 15.6 % (11.5-14.0) H 04/26/20 07:45 Seg Neutrophils % 81.6 % (42-78) H 04/26/20 07:45 Carbonic Acid 1.74 mmol/L (1.05-1.35) H 04/26/20 09:34 HCO3/H2CO3 Ratio 15:1 04/26/20 09:34 ABG pH 7.28 (7.35-7.45) L 04/26/20 09:34 ABG pCO2 57.7 mmHg (35-45) H 04/26/20 09:34 ABG pO2 115.9 mmHg (80-100) H 04/26/20 09:34 ABG HCO3 26.6 mmol/L (20-24) H 04/26/20 09:34 ABG O2 Saturation 97.7 % (94-98) 04/26/20 09:34 ABG Base Excess -1.0 mmol/L 04/26/20 09:34 FiO2 28% 04/26/20 09:34 Chloride 102 mmol/L (98-107) 04/26/20 00:51 Carbon Dioxide 24 mmol/L (22-30) 04/26/20 00:51 Anion Gap 11 (5-19) 04/26/20 00:51 Est GFR ( Amer) 30 (>60) L 04/26/20 00:51 Glucose 83 mg/dL (75-110) 04/26/20 00:51 Lactic Acid 1.5 mmol/L (0.7-2.1) 04/25/20 21:22 Calcium 9.2 mg/dL (8.4-10.2) 04/26/20 00:51 Magnesium 1.9 mg/dL (1.6-2.3) 04/26/20 07:45 Total Bilirubin 0.5 mg/dL (0.2-1.3) 04/25/20 19:18 AST 28 U/L (17-59) 04/25/20 19:18 Alkaline Phosphatase 187 U/L (38-126) H 04/25/20 19:18 Total Protein 9.4 g/dL (6.3-8.2) H 04/25/20 19:18 Albumin 4.1 g/dL (3.5-5.0) 04/25/20 19:18 Stl C.difficile Tox PCR POSITIVE (NEGATIVE) 04/25/20 20:17 04/25/20 04/26/20 04/26/20 19:18 00:51 07:45 Creatine Kinase 182 H CK-MB (CK-2) Troponin I 0.127 0.151 04/26/20 07:45 Creatine Kinase CK-MB (CK-2) 4.11 Troponin I 0.251 Microbiology: Blood cultures: 04/11 MSSA 04/14 Negative Radiology: Chest X-Ray 04/26/20 00:00 IMPRESSION: Decrease in right pleural effusion compared to CT chest 04/11/2020 Assessment and Recommendations: Patient evaluated due to MSSA bacteremia in the setting of ESRD on HD. He also has history of recurrent CDI and now diarrhe after starting cefazolin with HD. Per [facility] records, patient cleared the bacteremia on 04/14 for which EOT is supposed to be 05/11/20. Will recommend to continue cefazolin 2g/2g/3g until that date. In terms of CDI, even though toxic assay was negative, he is currently having diarrhea and he has history of CDI, will recommend to continue vancomycin 125 mg po every 6 hr x 15 days (until completion of ancef). Please call if questions. Elena Raygoza MD U ID [phone]
[2020-04-26] MEDS ORDERED: ACETAMINOPHEN 325 MG TABLET PO PRN (14:30)
[2020-04-26] MEDS: VANCOMYCIN HCL INJ 500 MG VIAL PO SCH ×2 (14:37→18:41)
--- NOTE | 2020-04-26 14:44 | RADIOLOGY REPORT (SQ) ---
EXAM DESCRIPTION: CT ABD/PELVIS NO ORAL OR IV IMAGES COMPLETED DATE/TIME: 04/26/2020 2:03 pm REASON FOR STUDY: nause/diarehhia/abd pain COMPARISON: 04/11/2020 TECHNIQUE: CT scan of the abdomen and pelvis performed without intravenous or oral contrast. Images reviewed with lung, soft tissue, and bone windows. Reconstructed coronal and sagittal MPR images revi ewed. All images stored on PACS. All CT scanners at this facility use dose modulation, iterative reconstruction, and/or weight based d osing when appropriate to reduce radiation dose to as low as reasonably achievable (ALARA). [facility]: Dose Right [facility]: CareDose [facility]: Dose Right [facility]: Teradose 4D [facility]: Ynsect RADIATION DOSE: CT Rad equipment meets quality standard of care and radiation dose reduction techniq ues were employed. CTDIvol: 3.0 mGy. DLP: 153 mGy-cm.mGy. LIMITATIONS: None. FINDINGS: LOWER CHEST: Small pleural effusions. Cardiomegaly. NON-CONTRASTED LIVER, SPLEEN, ADRENALS: Evaluation limited by lack of IV contrast. No identified sign ificant masses. PANCREAS: No masses. No peripancreatic inflammatory changes. GALLBLADDER: No identified stones by CT criteria. No inflammatory changes to suggest cholecystitis. RIGHT KIDNEY AND URETER: Atrophy. No suspicious masses. Assessment limited by lack of IV contrast. Unchanged renal calculi. No hydronephrosis or hydroureter. LEFT KIDNEY AND URETER: Atrophy. No suspicious masses. Assessment limited by lack of IV contrast. Unchanged renal calculi. No hydronephrosis or hydroureter. AORTA AND RETROPERITONEUM: No aneurysm. No retroperitoneal masses or adenopathy. BOWEL AND PERITONEAL CAVITY: No obvious masses or inflammatory changes. No free fluid. APPENDIX: Not visualized. PELVIS, BLADDER, AND ABDOMINAL WALL:Left lower quadrant anterior abdominal hernia containing fat. BONES: Unchanged sclerotic vertebral lesions. Osteopenia. OTHER: No other significant finding. IMPRESSION: No significant change. No evidence of hemorrhage or abscess. COMMENT: Quality ID # [id number]: Final reports with documentation of one or more dose reduction techniques (e.g., Automated exposure control, adjustment of the mA and/or kV according to patient size, use of iterative reconstruction technique) TECHNICAL DOCUMENTATION: JOB ID: [id number] 2010 [employer]- All Rights Reserved Reading location - IP/workstation name: [email or web address]
[2020-04-26] MEDS ORDERED: CEFAZOLIN 2 GM/D5W RTU 2 GM/50 ML RTUPB IV SCH (16:00)
--- NOTE | 2020-04-26 17:30 | EKG REPORT ---
SEVERITY:- ABNORMAL ECG - SINUS RHYTHM FIRST DEGREE AV BLOCK INFERIOR INFARCT, AGE INDETERMINATE CONSIDER ANTERIOR INFARCT BORDERLINE PROLONGED QT INTERVAL : Confirmed by: Samia Roper MD 26-Apr-2020 17:28:32
--- NOTE | 2020-04-26 19:12 | PDOC CONSULTATION ---
Consultation-Blank Consultation: CARDIOLOGY CONSULTATION by Dr. Samia Roper on 04/26/2020. Patient seen at 4 PM. 60 minutes spent with patient with more than 50% of time spent in direct patient care. REASON FOR CONSULTATION: Elevated troponin I in the patient with cardiomyopathy and coronary artery disease and history of coronary artery bypass graft surgery. CONSULT REQUESTING PHYSICIAN: Dr. Girard. HISTORY OF PRESENT ILLNESS: Past Medical History Cardiac Medical History: Reports: CHF-Diastolic, Coronary Artery Disease, Hyperlipidemia, Hypertension-primary, Myocardial Infarction Pulmonary Medical History: Reports: Asthma, Bronchitis, Intubation, Pneumonia, Respiratory Failure, Sleep Apnea - On C Pap Denies: Chronic Obstructive Pulmonary Disease (COPD) Neurological Medical History: Denies: Seizures Endocrine Medical History: Reports: Diabetes Mellitus Type 2 Complications of Diabetes: Reports: Nephropathy Renal/ Medical History: Reports: End Stage Renal Disease, Secondary Hyperparathyroidism GI Medical History: Reports: Gastroesophageal Reflux Disease Musculoskeltal Medical History: Reports: Arthritis Psychiatric Medical History: Reports: Depression - anxiety Infectious Medical History: Reports: Clostridium Difficile Hematology Medical History: Reports Anemia of Chronic Kidney Disease Past Surgical History Past Surgical History: Reports: Cardiac Catheterization, Coronary Artery Bypass Graft - Quadruple bypass 2007, Vascular Surgery - left AV fistual, Other - History peritoneal dialysis catheter placement and removal Social History Smoking Status: Never Smoker Frequency of Alcohol Use: None Hx Recreational Drug Use: No Drugs: None Hx Prescription Drug Abuse: No Family History Parental Family History Reviewed: Yes - Negative for ESRD Children Family History Reviewed: No Sibling(s) Family History Reviewed.: No Medication/Allergy Home Medications: Albuterol Sulfate [Albuterol Sulfate Hfa] 2 puff IH Q4HP PRN 04/12/20 Bimatoprost [Lumigan 0.01% Oph Soln 2.5 ml/Bottle] 1 drop OU QHS 04/12/20 Allergies/Adverse Reactions: sulfamethoxazole [From Bactrim] Allergy (Verified 04/25/20 19:00) trimethoprim [From Bactrim] Allergy (Verified 04/25/20 19:00) RESUSCITATION STATUS: The patient is a full code. His is his surrogate healthcare decision maker. Current Medications Generic Name Dose Route Start Last Admin Trade Name Freq PRN Reason Stop Dose Admin Acetaminophen 650 mg 04/26/20 14:30 Tylenol 325 Mg Tablet PO 05/25/20 22:57 Q6HP PRN FOR PAIN OR TEMP Albuterol/Ipratropium 3 ml 04/25/20 22:58 Duoneb 3 Ml Ampul NEB 05/25/20 22:57 RTQ6HP PRN SHORTNESS OF BREATH Dextrose 12.5 gm 04/25/20 23:02 Dextrose Inj 50% Syringe (25 Gm/50 Ml) IV 05/25/20 23:01 PRN PRN FOR BG 50-69 IN ALERT PATIENT Protocol Dextrose 25 gm 04/25/20 23:02 Dextrose Inj 50% Syringe (25 Gm/50 Ml) IV 05/25/20 23:01 PRN PRN PER PROTOCOL Protocol Glucagon 1 mg 04/25/20 23:02 Glucagen Inj 1 Mg Vial IM 05/25/20 23:01 PRN PRN Evaluate for BG < 70 Protocol Glucose 15 gm 04/25/20 23:02 Glutose 40% Gel 15 Gm Tube PO 05/25/20 23:01 PRN PRN FOR BG 50-69 IN ALERT PATIENT Protocol Glucose 30 gm 04/25/20 23:02 Glutose 40% Gel 15 Gm Tube PO 05/25/20 23:01 PRN PRN FOR BG < 50 IN ALERT PATIENT Protocol Heparin Sodium (Porcine) 5,000 unit 04/26/20 06:00 04/26/20 15:31 Heparin Inj 5,000 Units/Ml 1 Ml Vial SUBCUT 05/26/20 05:59 5,000 unit Q8 [facility] Administration Heparin Sodium (Porcine) 5,000 unit 04/27/20 05:00 Heparin Inj 1,000 Unit/Ml 10 Ml Vial IV 04/27/20 23:59 .SPLIT B/N CATHETERS PRN THIS MED IS NOT "PRN" Metronidazole 500 mg in 100 mls @ 100 mls/hr 04/26/20 00:00 04/26/20 19:28 Flagyl Rtu 500 Mg/Ns 100ml Premix IV 05/03/20 00:00 Infused Q6 [facility] Infusion Dopamine HCl/Dextrose 800 mg in 250 mls @ 2.981 mls/hr 04/26/20 08:13 04/26/20 09:20 Dopamine Rtu 800 Mg-D5w 250 Ml (Adult) Premix IV 05/26/20 08:12 0.003 mg/ kg/min CONTINUOUS PRN 2.98 mls/hr THIS MED IS NOT "PRN" Administration 0.003 MG/KG/MIN Sodium Chloride 1,000 mls @ 75 mls/hr 04/26/20 10:58 04/26/20 12:12 Nacl 0.9% 1000 Ml Iv Soln IV 04/27/20 14:00 75 mls/hr CONTINUOUS PRN Administration THIS MED IS NOT "PRN" Cefazolin Sodium 2 gm/ 100 mls @ 200 mls/hr 04/30/20 18:00 Dextrose IV 05/11/20 17:59 [id number] [facility] Cefazolin Sodium 3 gm/ 100 mls @ 200 mls/hr 04/27/20 18:00 Dextrose IV 05/11/20 17:59 [id number]@1800 [facility] Insulin Human Lispro 0 - 12 unit 04/26/20 08:00 04/26/20 17:23 Humalog Insulin 100 Unit/1 Ml 3 Ml Vial SUBCUT 05/26/20 07:59 Not Given ACHS [facility] Protocol Ondansetron HCl 4 mg 04/26/20 14:30 Zofran Inj/Pf 4 Mg/2 Ml Sdv IV 05/25/20 22:57 Q4HP PRN FOR NAUSEA/VOMITING Vancomycin HCl 125 mg 04/26/20 12:00 04/26/20 18:41 Vancocin Inj 500 Mg Vial PO 05/03/20 11:59 125 mg Q6 [facility] Administration Discontinued Medications Generic Name Dose Route Start Last Admin Trade Name Freq PRN Reason Stop Dose Admin Acetaminophen 650 mg 04/25/20 22:58 Tylenol 325 Mg Tablet PO 05/25/20 22:57 Q4HP PRN FOR PAIN OR TEMP Diphenhydramine HCl 12.5 mg 04/25/20 19:44 04/25/20 19:53 Benadryl Inj 50 Mg/1 Ml Vial IV 04/25/20 19:45 12.5 mg NOW ONE Administration Sodium Chloride 250 mls @ 0 mls/hr 04/25/20 19:50 04/25/20 20:16 Nacl 0.9% 250 Ml Iv Soln IV 04/25/20 19:51 Infused NOW ONE Infusion Wide Open Sodium Chloride 250 mls @ 0 mls/hr 04/26/20 06:45 04/26/20 06:47 Nacl 0.9% 250 Ml Iv Soln IV 04/26/20 06:46 999 mls/hr BOLUS ONE Administration Wide Open Sodium Chloride 250 mls @ 0 mls/hr 04/26/20 11:30 04/26/20 08:00 Nacl 0.9% 250 Ml Iv Soln IV 04/26/20 11:31 999 mls/hr BOLUS ONE Administration Wide Open Metoclopramide HCl 5 mg 04/25/20 19:43 04/25/20 19:53 Reglan Inj/Pf 10 Mg/2 Ml Sdv IV 04/25/20 19:44 5 mg NOW ONE Administration Ondansetron HCl 4 mg 04/25/20 22:58 04/26/20 00:53 Zofran Inj/Pf 4 Mg/2 Ml Sdv IV 05/25/20 22:57 4 mg Q4HP PRN Administration FOR NAUSEA/VOMITING Review of Systems Constitutional: PRESENT: anorexia, fatigue, weakness, weight loss. ABSENT: chills, fever(s), headache(s), night sweats Nose, Mouth, and Throat: ABSENT: mouth pain, sore throat Cardiovascular: ABSENT: chest pain, edema, orthropnea, palpitations Respiratory: ABSENT: dyspnea, hemoptysis Gastrointestinal: PRESENT: diarrhea, nausea, vomiting. ABSENT: abdominal pain, coffee ground emesis, hematemesis, hematochezia Musculoskeletal: ABSENT: deformity, joint swelling Integumentary: ABSENT: lesions, pruritus Neurological: ABSENT: abnormal movements, abnormal speech, confusion, focal weakness, frequent falls Endocrine: ABSENT: heat intolerance Hematologic/Lymphatic: ABSENT: easy bruising, lymphadenopathy PHYSICAL EXAMINATION: The patient is a frail build and appears to be chronically ill and slightly malnourished. In no acute distress. Selected Entries 04/26/20 04/26/20 04/26/20 09:50 10:00 12:18 Temperature 97.4 F Temperature Axillary Source Pulse Rate 71 Respiratory 16 14 Rate Blood Pressure Blood Pressure 111/62 [Upper Arm] Blood Pressure Mean Blood Pressure 78 Mean [Upper Arm ] Blood Pressure Supine Position [Upper Arm] BP Position O2 Sat by Pulse 100 Oximetry Oxygen Delivery Nasal Cannula Nasal Cannula Method ( includes room air) Oxygen Flow 2 Rate Oxygen Delivery Method Nasal cannula 04/26/20 17:17 Temperature 97.4 F Temperature Oral Source Pulse Rate 75 Respiratory Rate Blood Pressure 128/62 H Blood Pressure [Upper Arm] Blood Pressure 84 Mean Blood Pressure Mean [Upper Arm ] Blood Pressure Position [Upper Arm] BP Position Supine O2 Sat by Pulse Oximetry 100% Oxygen Delivery Method ( includes room air) Oxygen Flow 2.00 Rate Oxygen Delivery Nasal Cannula Method HEAD: Is atraumatic normocephalic. EYES: Pupils equal round regular reactive light accommodation. Extraocular movements are normal. There is no conjunctival pallor. There is no scleral icterus. EARS: Tympanic membranes are intact. External auditory canals are clear. NOSE: There is no deviated nasal septum. There is no inflammation nasal mucous membrane. MOUTH: Mucous membranes of the mouth is dry. Tongue is very dry. There is no ulcers. There is no bleeding from gums. THROAT: There is no redness of the oropharynx there is no exudates. SKIN: There is no skin rashes. There is no petechia or ecchymosis. NECK: Is supple. There is no JVD. Carotids are equal there is no bruits. There is no lymphadenopathy. There is no axillary muscle respiration use. LUNGS: Is clear to auscultation percussion without any rhonchi rales or wheezing. HEART: S1-S2 is heard. There is no S3 gallop. There is no S4 gallop. There is systolic murmur left sternal border and the apex there is no rub. ABDOMEN: Is soft. Nontender there is no paraspinal megaly. Bowel sounds are well heard. EXTREMITIES: Femorals are diminished there is no femoral bruits. Leg pulses are diminished. There is no pedal edema. There is no DVT cellulitis. There is no calf tenderness. 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 PSYCHIATRIC: The patient appears to be slightly depressed. But his judgment and insight are intact. ATRIAL FIBRILLATION, V-RATE 66-124. This is difficult in view of the baseline artifact. Will repeat EKG. [VBIG] . VENTRICULAR BIGEMINY [IMI62] . INFERIOR INFARCT, AGE INDETERMINATE [AMI1] . BORDERLINE R WAVE PROGRESSION, ANTERIOR LEADS [BSTEAL] . BORDERLINE ST ELEVATION, ANTEROLATERAL LEADS. This is nonspecific. Chest X-Ray 04/25/20 19:42 IMPRESSION: Labs- Entire Visit 04/25/20 04/25/20 04/25/20 19:18 19:18 19:18 WBC 10.0 RBC 4.09 L Hgb 13.0 L Hct 39.0 MCV 95 MCH 31.9 MCHC 33.5 RDW 15.9 H Plt Count 221 Lymph % (Auto) 9.8 L [place] % (Auto) 4.2 Eos % (Auto) 0.8 Baso % (Auto) 0.1 Absolute Neuts (auto) 8.5 H Absolute Lymphs (auto) 1.0 Absolute Monos (auto) 0.4 Absolute Eos (auto) 0.1 Absolute Basos (auto) 0.0 Seg Neutrophils % 85.1 H Carbonic Acid HCO3/H2CO3 Ratio ABG pH ABG pCO2 ABG pO2 ABG HCO3 ABG Total CO2 ABG O2 Saturation ABG Base Excess FiO2 Sodium 138.2 Potassium 3.7 Chloride 99 Carbon Dioxide 27 Anion Gap 12 BUN 30 H Creatinine 2.42 H Est GFR ( Amer) 33 L Est GFR (MDRD) Non-Af 27 L Glucose 94 POC Glucose Lactic Acid Calcium 9.3 Magnesium Total Bilirubin 0.5 Direct Bilirubin 0.2 Neonat Total Bilirubin Not Reportable Neonat Direct Bilirubin Not Reportable Neonat Indirect Bili Not Reportable AST 28 ALT 4 Alkaline Phosphatase 187 H Creatine Kinase CK-MB (CK-2) Troponin I 0.127 Total Protein 9.4 H Albumin 4.1 Random Cortisol Stl C. Difficile GDH Ag Stl C.difficile Tox A&B Stl C.difficile Tox PCR 04/25/20 04/25/20 04/26/20 20:17 21:22 00:51 WBC RBC Hgb Hct MCV MCH MCHC RDW Plt Count Lymph % (Auto) [place] % (Auto) Eos % (Auto) Baso % (Auto) Absolute Neuts (auto) Absolute Lymphs (auto) Absolute Monos (auto) Absolute Eos (auto) Absolute Basos (auto) Seg Neutrophils % Carbonic Acid HCO3/H2CO3 Ratio ABG pH ABG pCO2 ABG pO2 ABG HCO3 ABG Total CO2 ABG O2 Saturation ABG Base Excess FiO2 Sodium Potassium Chloride Carbon Dioxide Anion Gap BUN Creatinine Est GFR ( Amer) Est GFR (MDRD) Non-Af Glucose POC Glucose Lactic Acid 1.5 Calcium Magnesium Total Bilirubin Direct Bilirubin Neonat Total Bilirubin Neonat Direct Bilirubin Neonat Indirect Bili AST ALT Alkaline Phosphatase Creatine Kinase CK-MB (CK-2) Troponin I 0.151 Total Protein Albumin Random Cortisol Stl C. Difficile GDH Ag POSITIVE Stl C.difficile Tox A&B NEGATIVE Stl C.difficile Tox PCR POSITIVE 04/26/20 04/26/20 04/26/20 00:51 07:45 07:45 WBC 13.6 H RBC 3.94 L Hgb 12.4 L Hct 37.5 L MCV 95 MCH 31.4 MCHC 32.9 RDW 15.6 H Plt Count 212 Lymph % (Auto) 13.6 [place] % (Auto) 4.1 Eos % (Auto) 0.5 Baso % (Auto) 0.2 Absolute Neuts (auto) 11.1 H Absolute Lymphs (auto) 1.9 Absolute Monos (auto) 0.6 Absolute Eos (auto) 0.1 Absolute Basos (auto) 0.0 Seg Neutrophils % 81.6 H Carbonic Acid HCO3/H2CO3 Ratio ABG pH ABG pCO2 ABG pO2 ABG HCO3 ABG Total CO2 ABG O2 Saturation ABG Base Excess FiO2 Sodium 137.4 Potassium 4.1 Chloride 102 Carbon Dioxide 24 Anion Gap 11 BUN 34 H Creatinine 2.58 H Est GFR ( Amer) 30 L Est GFR (MDRD) Non-Af 25 L Glucose 83 POC Glucose Lactic Acid Calcium 9.2 Magnesium 1.9 Total Bilirubin Direct Bilirubin Neonat Total Bilirubin Neonat Direct Bilirubin Neonat Indirect Bili AST ALT Alkaline Phosphatase Creatine Kinase 182 H CK-MB (CK-2) Troponin I Total Protein Albumin Random Cortisol Stl C. Difficile GDH Ag Stl C.difficile Tox A&B Stl C.difficile Tox PCR 04/26/20 04/26/20 04/26/20 07:45 07:45 08:01 WBC RBC Hgb Hct MCV MCH MCHC RDW Plt Count Lymph % (Auto) [place] % (Auto) Eos % (Auto) Baso % (Auto) Absolute Neuts (auto) Absolute Lymphs (auto) Absolute Monos (auto) Absolute Eos (auto) Absolute Basos (auto) Seg Neutrophils % Carbonic Acid HCO3/H2CO3 Ratio ABG pH ABG pCO2 ABG pO2 ABG HCO3 ABG Total CO2 ABG O2 Saturation ABG Base Excess FiO2 Sodium Potassium Chloride Carbon Dioxide Anion Gap BUN Creatinine Est GFR ( Amer) Est GFR (MDRD) Non-Af Glucose POC Glucose 79 Lactic Acid Calcium Magnesium Total Bilirubin Direct Bilirubin Neonat Total Bilirubin Neonat Direct Bilirubin Neonat Indirect Bili AST ALT Alkaline Phosphatase Creatine Kinase CK-MB (CK-2) 4.11 Troponin I 0.251 Total Protein Albumin Random Cortisol 17.60 Stl C. Difficile GDH Ag Stl C.difficile Tox A&B Stl C.difficile Tox PCR 04/26/20 04/26/20 04/26/20 09:34 12:25 12:53 WBC RBC Hgb Hct MCV MCH MCHC RDW Plt Count Lymph % (Auto) [place] % (Auto) Eos % (Auto) Baso % (Auto) Absolute Neuts (auto) Absolute Lymphs (auto) Absolute Monos (auto) Absolute Eos (auto) Absolute Basos (auto) Seg Neutrophils % Carbonic Acid 1.74 H HCO3/H2CO3 Ratio 15:1 ABG pH 7.28 L ABG pCO2 57.7 H ABG pO2 115.9 H ABG HCO3 26.6 H ABG Total CO2 28.3 H ABG O2 Saturation 97.7 ABG Base Excess -1.0 FiO2 28% Sodium Potassium Chloride Carbon Dioxide Anion Gap BUN Creatinine Est GFR ( Amer) Est GFR (MDRD) Non-Af Glucose POC Glucose 62 L 78 Lactic Acid Calcium Magnesium Total Bilirubin Direct Bilirubin Neonat Total Bilirubin Neonat Direct Bilirubin Neonat Indirect Bili AST ALT Alkaline Phosphatase Creatine Kinase CK-MB (CK-2) Troponin I Total Protein Albumin Random Cortisol Stl C. Difficile [facility] Ag Stl C.difficile Tox A&B Stl C.difficile Tox PCR 04/26/20 17:23 WBC RBC Hgb Hct MCV MCH MCHC RDW Plt Count Lymph % (Auto) [place] % (Auto) Eos % (Auto) Baso % (Auto) Absolute Neuts (auto) Absolute Lymphs (auto) Absolute Monos (auto) Absolute Eos (auto) Absolute Basos (auto) Seg Neutrophils % Carbonic Acid HCO3/H2CO3 Ratio ABG pH ABG pCO2 ABG pO2 ABG HCO3 ABG Total CO2 ABG O2 Saturation ABG Base Excess FiO2 Sodium Potassium Chloride Carbon Dioxide Anion Gap BUN Creatinine Est GFR ( Amer) Est GFR (MDRD) Non-Af Glucose POC Glucose 86 Lactic Acid Calcium Magnesium Total Bilirubin Direct Bilirubin Neonat Total Bilirubin Neonat Direct Bilirubin Neonat Indirect Bili AST ALT Alkaline Phosphatase Creatine Kinase CK-MB (CK-2) Troponin I Total Protein Albumin Random Cortisol Stl C. Difficile GD Ag Stl C.difficile Tox A&B Stl C.difficile Tox PCR Pulmonary edema with small pleural effusions and adjacent airspace disease. Abdomen/Pelvis CT 04/26/20 00:00 IMPRESSION: No significant change. No evidence of hemorrhage or abscess. Chest X-Ray 04/26/20 00:00 IMPRESSION: Decrease in right pleural effusion compared to CT chest 04/11/2020 IMPRESSION/RECOMMENDATION: 1. Elevated troponin I: This is secondary to supply demand mismatch due to severe dehydration and hypotension. No definite evidence of non-ST elevation AR. We will treat the underlying cause. 2. Hypotension: Due to severe dehydration. But need to assess for sepsis. The patient's blood pressure response to dopamine is good. I had started the patient on dopamine. At present 3 mcg/kg/min. 3. Severe vomiting and diarrhea: The patient C. difficile is positive. This is improving. Continue vancomycin 4. Severe dehydration: Note that the patient did have fluid resuscitation. Will need to be cautious with fluid replacement since the patient has end-stage renal disease and is on hemodialysis. 5. History of methicillin sensitive Staphylococcus aureus. Recently treated with antibiotics. 6. Coronary artery disease history of coronary artery bypass graft surgery. No anginal symptoms. 7.? Atrial fibrillation: We will recheck the patient's EKG 8. Ischemic cardiomyopathy with moderately reduced LV ejection fraction of 40% to 45%. 9. History of Mobitz type I second-degree AV block. This is intermittent. W ith a baseline patient having significant first-degree AV block. No hemodynamic compromise. 10 prior history of cardiac arrest due to pulseless electrical activity: No recurrence. 11. 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 12. Peripheral vascular disease: History of balloon angioplasty of right femoral artery. 13. History of end-stage renal disease on dialysis. Continue this. 14. Malnutrition: Recommend dietary consult for nutritional support. Orders written to recheck the patient's EKG. Will follow. Medical decision making is of high complexity. Medical management and medical regimen discussed with the patient and the attending provider and Dr. Tavares the hotel service supervisor. 60 minutes spent with patient more than 50% time spent in direct patient care. Will follow.
[2020-04-26] MEDS: ONDANSETRON HCL INJ/PF 4 MG/2 ML SDV IV PRN (22:49)
[2020-04-27] MEDS: METRONIDAZOLE 500 MG/NS RTU 500 MG/100 ML RTUPB IV SCH ×2 (01:00→06:28)
[2020-04-27] MEDS: VANCOMYCIN HCL INJ 500 MG VIAL PO SCH ×4 (02:13→18:24)
[2020-04-27] MEDS ORDERED: HEPARIN SOD (PORCINE) 1,000 UNIT/ML 10 ML VIAL IV PRN (05:00)
[2020-04-27] MEDS: HEPARIN SOD (PORCINE) 5,000 UNIT/ML 1 ML VIAL SUBCUT SCH ×3 (06:29→21:41)
[2020-04-27 07:32] LABS: ANION GAP 13 (5-19); BLOOD UREA NITROGEN 51 mg/dL (7-20); CALCIUM 9.2 mg/dL (8.4-10.2); CARBON DIOXIDE 23 mmol/L (22-30); CHLORIDE 105 mmol/L (98-107); GLUCOSE 81 mg/dL (75-110); POTASSIUM 4.4 mmol/L (3.6-5.0)
[2020-04-27 07:50] LABS: ABSOLUTE EOSINOPHILS # (AUTO) 0.2 10^3/uL (0.0-0.6); ABSOLUTE LYMPHOCYTES (AUTO) 2.3 10^3/uL (0.5-4.7); ABSOLUTE MONOCYTES (AUTO) 0.6 10^3/uL (0.1-1.4); ABSOLUTE NEUT (AUTO) 4.8 10^3/uL (1.7-8.2); BASOPHILS % (AUTO) 0.3 % (0-2); EOSINOPHILS % (AUTO) 3.1 % (0-6); HEMOGLOBIN 13.2 g/dL (13.5-17.0); LYMPHOCYTES % (AUTO) 28.5 % (13-45); MEAN CORPUSCULAR HEMOGLOBIN 31.7 pg (27.0-33.4); MEAN CORPUSCULAR HGB CONC 33.1 g/dL (32.0-36.0); MEAN CORPUSCULAR VOLUME 96 fl (80-97); MONOCYTES % (AUTO) 7.9 % (3-13); PLATELET COUNT 198 10^3/uL (150-450); RED BLOOD COUNT 4.18 10^6/uL (4.35-5.55); RED CELL DISTRIBUTION WIDTH 15.9 % (11.5-14.0); SEGMENTED NEUTROPHILS % (AUTO) 60.2 % (42-78); TOTAL CELLS COUNTED % (AUTO) 100 %
[2020-04-27] MEDS: IPRATROPIUM/ALBUTEROL 0.5-2.5 MG/3 ML AMPUL NEB PRN (08:10)
[2020-04-27] MEDS: ONDANSETRON HCL INJ/PF 4 MG/2 ML SDV IV PRN (08:46)
[2020-04-27] MEDS: INSULIN LISPRO 100 UNIT/ML 3 ML VIAL SUBCUT SCH ×4 (09:01→21:39)
--- NOTE | 2020-04-27 09:50 | PDOC PROGRESS REPORT ---
Subjective Progress Note for:: 04/27/20 Subjective:: Patient is currently doing fair And is complaining some nausea this morning Patient have a CT abdomen pelvis done yesterday was all stable Since denied any chest pain no short of breath Patient is currently on a dopamine drip Patient seen by the Dr. Tavares and Dr. Dumont discussed with them Patient recently went to the [place] for the elevated troponin and suggest all stable Patient's ID consult review continues suggest MS MS bacteremia and continues the IV cefazolin until the 26 and continues the p.o. vancomycin's Discontinues the IV Flagyl symptoms that triggered the more nausea Reason For Visit: C DIFF COLITIS Physical Exam Vital Signs: Temp Pulse Resp BP Pulse Ox 97.9 F 74 18 108/29 L 92 04/27/20 07:21 04/27/20 07:21 04/27/20 07:21 04/27/20 07:21 04/27/20 07:21 Intake & Output 04/26/20 04/27/20 04/28/20 06:59 06:59 06:59 Intake Total 350 992 100 Output Total 0 Balance 350 992 100 Weight 53 kg 49 kg General appearance: PRESENT: no acute distress, well-developed, well-nourished Head exam: PRESENT: atraumatic, normocephalic Eye exam: PRESENT: conjunctiva pink, EOMI, PERRLA. ABSENT: scleral icterus Ear exam: PRESENT: normal external ear exam Mouth exam: PRESENT: moist, tongue midline Neck exam: PRESENT: full ROM. ABSENT: carotid bruit, JVD, lymphadenopathy, thyromegaly Respiratory exam: PRESENT: clear to auscultation jolie Cardiovascular exam: PRESENT: RRR. ABSENT: diastolic murmur, rubs, systolic murmur Vascular exam: PRESENT: normal capillary refill GI/Abdominal exam: PRESENT: normal bowel sounds, soft. ABSENT: distended, guarding, mass, organolmegaly, rebound, tenderness Rectal exam: PRESENT: deferred Neurological exam: PRESENT: alert, awake, oriented to person, oriented to place, oriented to time, oriented to situation. ABSENT: motor sensory deficit Psychiatric exam: PRESENT: appropriate affect, normal mood. ABSENT: homicidal ideation, suicidal ideation Skin exam: PRESENT: dry, intact, warm. ABSENT: cyanosis, rash Results Laboratory Results: 04/27/20 06:38 04/27/20 06:38 04/26/20 04/27/20 04/27/20 09:34 06:38 06:38 WBC RBC Hgb Hct MCV MCH MCHC RDW Plt Count Seg Neutrophils % Carbonic Acid 1.74 H HCO3/H2CO3 Ratio 15:1 ABG pH 7.28 L ABG pCO2 57.7 H ABG pO2 115.9 H ABG HCO3 26.6 H ABG O2 Saturation 97.7 ABG Base Excess -1.0 FiO2 28% Sodium 141.0 Potassium 4.4 Chloride 105 Carbon Dioxide 23 Anion Gap 13 BUN 51 H Creatinine 3.76 H Est GFR ( Amer) 20 L Glucose 81 Lactic Acid 0.8 Calcium 9.2 04/27/20 06:38 WBC 8.0 RBC 4.18 L Hgb 13.2 L Hct 40.0 MCV 96 MCH 31.7 MCHC 33.1 RDW 15.9 H Plt Count 198 Seg Neutrophils % 60.2 Carbonic Acid HCO3/H2CO3 Ratio ABG pH ABG pCO2 ABG pO2 ABG HCO3 ABG O2 Saturation ABG Base Excess FiO2 Sodium Potassium Chloride Carbon Dioxide Anion Gap BUN Creatinine Est GFR ( Amer) Glucose Lactic Acid Calcium 04/25/20 04/26/20 04/26/20 19:18 00:51 07:45 Creatine Kinase 182 H CK-MB (CK-2) Troponin I 0.127 0.151 04/26/20 07:45 Creatine Kinase CK-MB (CK-2) 4.11 Troponin I 0.251 Impressions: Abdomen/Pelvis CT 04/26/20 00:00 IMPRESSION: No significant change. No evidence of hemorrhage or abscess. Chest X-Ray 04/26/20 00:00 IMPRESSION: Decrease in right pleural effusion compared to CT chest 04/11/2020 Assessment & Plan - Diagnosis (1) Sepsis associated hypotension Is this a current diagnosis for this admission?: Yes Plan: As per ID consult patient with bacteremia subsequent blood culture was negative suggest the continues IV antibiotic until the with the same times patient was C. difficile continues the p.o. vancomycin for 15 days Patient is hypotensive with a lactic acid is currently normal (2) C. difficile colitis Is this a current diagnosis for this admission?: Yes Plan: Continues the p.o. vancomycin's discontinues the IV Flagyl's symptoms that triggered the nausea (3) Diabetes mellitus, type II Qualifiers: Diabetes mellitus usp insulin use: unspecified usp insulin use status Diabetes mellitus complication status: with other specified complication Qualified Code(s): E11.69 - Type 2 diabetes mellitus with other specified complication Is this a current diagnosis for this admission?: Yes Plan: Patient is running hypoglycemic with a poor appetite (4) Anemia in chronic kidney disease (CKD) Qualifiers: Chronic kidney disease stage: on chronic dialysis Qualified Code(s): N18.6 - End stage renal disease; D63.1 - Anemia in chronic kidney disease; Z99.2 - Dependence on renal dialysis Is this a current diagnosis for this admission?: Yes Plan: Currently stable. Monitor. (5) Cerebrovascular disease Is this a current diagnosis for this admission?: Yes (6) Chronic diastolic (congestive) heart failure Is this a current diagnosis for this admission?: Yes Plan: Currently on hemodialysis (7) Coronary artery disease Qualifiers: Coronary Disease-Associated Artery/Lesion type: unspecified vessel or lesion type [place] vs. transplanted heart: [place] heart Associated angina: angina presence unspecified Qualified Code(s): I25.10 - Atherosclerotic heart disease of [place] coronary artery without angina pectoris Is this a current diagnosis for this admission?: Yes Plan: Follow-up with the Dr. Dumont (8) ESRD on hemodialysis Is this a current diagnosis for this admission?: Yes Plan: Plan for dialysis in the morning. Orders have been placed. (9) Elevated troponin I level Is this a current diagnosis for this admission?: Yes Plan: Follow-up with the cardiology (10) Gastroesophageal reflux disease Qualifiers: Esophagitis presence: without esophagitis Qualified Code(s): K21.9 - Gastro-esophageal reflux disease without esophagitis Is this a current diagnosis for this admission?: Yes Plan: Start the patient on a Protonix IV (11) History of kidney transplant Is this a current diagnosis for this admission?: Yes (12) Sleep apnea syndrome Qualifiers: Sleep apnea type: unspecified type Is this a current diagnosis for this admission?: Yes Plan: Using the CPAP at night (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
[2020-04-27] MEDS: PANTOPRAZOLE SODIUM 40 MG VIAL IV SCH ×2 (10:14→21:41)
--- NOTE | 2020-04-27 14:45 | PDOC PROGRESS REPORT ---
Subjective Progress Note for:: 04/27/20 Reason For Visit: Patient was transferred to the ICU where he is being dialyzed because of his unstable hemodynamic status. He is currently on dopamine. His diarrhea is much improved and he feels better as compared to on admission. Patient undergoing dialysis without any issues. Denies any history of chest pain or shortness of breath. Labs and medications were reviewed. Dialysis orders were reviewed the treating dialysis nurse. Physical Exam Vital Signs: Temp Pulse Resp BP Pulse Ox 97.5 F 69 16 137/45 H 99 04/27/20 11:31 04/27/20 11:31 04/27/20 11:31 04/27/20 11:31 04/27/20 11:31 Intake & Output 04/26/20 04/27/20 04/28/20 06:59 06:59 06:59 Intake Total 350 992 218 Output Total 0 0 Balance 350 992 218 Weight 53 kg 49 kg General appearance: PRESENT: no acute distress Respiratory exam: PRESENT: clear to auscultation jolie, decreased breath sounds. ABSENT: crackles Cardiovascular exam: PRESENT: +S1, +S2 GI/Abdominal exam: PRESENT: normal bowel sounds, soft. ABSENT: organomegaly, tenderness Extremities exam: ABSENT: pedal edema Neurological exam: PRESENT: alert, awake, oriented to person Psychiatric exam: PRESENT: appropriate affect Results Laboratory Results: 04/27/20 06:38 04/27/20 06:38 04/27/20 04/27/20 04/27/20 06:38 06:38 06:38 WBC 8.0 RBC 4.18 L Hgb 13.2 L Hct 40.0 MCV 96 MCH 31.7 MCHC 33.1 RDW 15.9 H Plt Count 198 Seg Neutrophils % 60.2 Sodium 141.0 Potassium 4.4 Chloride 105 Carbon Dioxide 23 Anion Gap 13 BUN 51 H Creatinine 3.76 H Est GFR ( Amer) 20 L Glucose 81 Lactic Acid 0.8 Calcium 9.2 04/25/20 04/26/20 04/26/20 19:18 00:51 07:45 Creatine Kinase 182 H CK-MB (CK-2) Troponin I 0.127 0.151 04/26/20 07:45 Creatine Kinase CK-MB (CK-2) 4.11 Troponin I 0.251 Impressions: Abdomen/Pelvis CT 04/26/20 00:00 IMPRESSION: No significant change. No evidence of hemorrhage or abscess. Chest X-Ray 04/26/20 00:00 IMPRESSION: Decrease in right pleural effusion compared to CT chest 04/11/2020 Assessment & Plan - Diagnosis (1) ESRD on hemodialysis Is this a current diagnosis for this admission?: Yes Plan: Patient currently on hemodialysis in the ICU because he is unstable hemodynamically and is on dopamine. Dialysis under going without any issues. Vital signs are relatively stable plan to remove no fluid. dialysis orders reviewed with the treating dialysis nurse. (2) Hemodialysis catheter infection Plan: As per discussions done with ID from [facility] he will be on cefazolin for a complete 4 weeks which will be couple more weeks from now. (3) C. difficile colitis Is this a current diagnosis for this admission?: Yes Plan: On p.o. vancomycin. 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 (5) Sepsis associated hypotension Is this a current diagnosis for this admission?: Yes Plan: In the background of C. difficile colitis and shock with hypovolemia. Patient has responded very well to IV fluid resuscitation. Continue present guidelines. (6) Anemia in chronic kidney disease (CKD) Qualifiers: Chronic kidney disease stage: on chronic dialysis Qualified Code(s): N18.6 - End stage renal disease; D63.1 - Anemia in chronic kidney disease; Z99.2 - Dependence on renal dialysis Is this a current diagnosis for this admission?: Yes Plan: Monitor for need an adjustment of erythropoietin. 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 (8) History of infection due to ESBL Escherichia coli Plan: Status quo. (9) Recurrent urinary tract infection Plan: Presently stable. Monitor.
[2020-04-27] MEDS ORDERED: CEFAZOLIN SODIUM 3 GM in DEXTROSE 5%-WATER 100 ML IV SCH (18:00)
--- NOTE | 2020-04-27 19:10 | EKG REPORT ---
SEVERITY:- ABNORMAL ECG - SINUS RHYTHM MOBITZ I AV BLOCK (WENCKEBACH) LEFT ATRIAL ABNORMALITY LEFT VENTRICULAR HYPERTROPHY PROBABLE INFERIOR INFARCT, AGE INDETERMINATE : Confirmed by: Samia Roper MD 27-Apr-2020 19:09:13
[2020-04-28] MEDS: VANCOMYCIN HCL INJ 500 MG VIAL PO SCH ×5 (00:11→23:12)
[2020-04-28] MEDS: HEPARIN SOD (PORCINE) 5,000 UNIT/ML 1 ML VIAL SUBCUT SCH ×3 (06:21→21:38)
[2020-04-28 06:37] LABS: ABSOLUTE EOSINOPHILS # (AUTO) 0.2 10^3/uL (0.0-0.6); ABSOLUTE MONOCYTES (AUTO) 0.6 10^3/uL (0.1-1.4); ABSOLUTE NEUT (AUTO) 3.2 10^3/uL (1.7-8.2); BASOPHILS % (AUTO) 0.5 % (0-2); EOSINOPHILS % (AUTO) 3.6 % (0-6); HEMATOCRIT 32.8 % (37.9-51.0); LYMPHOCYTES % (AUTO) 33.4 % (13-45); MEAN CORPUSCULAR HEMOGLOBIN 31.5 pg (27.0-33.4); MEAN CORPUSCULAR HGB CONC 32.9 g/dL (32.0-36.0); MEAN CORPUSCULAR VOLUME 96 fl (80-97); MONOCYTES % (AUTO) 9.6 % (3-13); PLATELET COUNT 169 10^3/uL (150-450); RED BLOOD COUNT 3.43 10^6/uL (4.35-5.55); SEGMENTED NEUTROPHILS % (AUTO) 52.9 % (42-78); TOTAL CELLS COUNTED % (AUTO) 100 %
[2020-04-28 06:39] LABS: HEMOGLOBIN 10.8 g/dL (13.5-17.0)
[2020-04-28 06:54] LABS: ANION GAP 12 (5-19); CALCIUM 8.6 mg/dL (8.4-10.2); CARBON DIOXIDE 25 mmol/L (22-30); CHLORIDE 102 mmol/L (98-107); GLUCOSE 72 mg/dL (75-110); POTASSIUM 3.9 mmol/L (3.6-5.0)
[2020-04-28 07:05] LABS: BLOOD UREA NITROGEN 30 mg/dL (7-20)
[2020-04-28] MEDS: INSULIN LISPRO 100 UNIT/ML 3 ML VIAL SUBCUT SCH ×4 (09:10→21:34)
[2020-04-28] MEDS: PANTOPRAZOLE SODIUM 40 MG VIAL IV SCH ×2 (10:31→21:39)
[2020-04-28] MEDS: IPRATROPIUM/ALBUTEROL 0.5-2.5 MG/3 ML AMPUL NEB PRN (15:48)
--- NOTE | 2020-04-28 18:07 | PDOC PROGRESS REPORT ---
Subjective Progress Note for:: 04/28/20 Subjective:: Patient seen by the bedside, on hemodialysis he has C. difficile colitis with diarrhea, on p.o. vancomycin Reason For Visit: C DIFF COLITIS Physical Exam Vital Signs: Temp Pulse Resp BP Pulse Ox 97.9 F 72 18 100/58 L 98 04/28/20 08:33 04/28/20 15:50 04/28/20 15:50 04/28/20 08:33 04/28/20 15:50 Intake & Output 04/27/20 04/28/20 04/29/20 06:59 06:59 06:59 Intake Total 992 1575 Output Total 0 1500 Balance 992 75 Weight 49 kg 51.1 kg General appearance: PRESENT: no acute distress Eye exam: PRESENT: PERRLA Respiratory exam: PRESENT: clear to auscultation jolie Cardiovascular exam: PRESENT: +S1, +S2 GI/Abdominal exam: PRESENT: soft Results Laboratory Results: 04/28/20 06:18 04/28/20 06:18 04/28/20 04/28/20 06:18 06:18 WBC 6.0 RBC 3.43 L Hgb 10.8 L D Hct 32.8 L MCV 96 MCH 31.5 MCHC 32.9 RDW 16.0 H Plt Count 169 Seg Neutrophils % 52.9 Sodium 139.3 Potassium 3.9 Chloride 102 Carbon Dioxide 25 Anion Gap 12 BUN 30 H D Creatinine 2.85 H Est GFR ( Amer) 27 L Glucose 72 L Calcium 8.6 04/25/20 04/26/20 04/26/20 19:18 00:51 07:45 Creatine Kinase 182 H CK-MB (CK-2) Troponin I 0.127 0.151 04/26/20 07:45 Creatine Kinase CK-MB (CK-2) 4.11 Troponin I 0.251 Impressions: Abdomen/Pelvis CT 04/26/20 00:00 IMPRESSION: No significant change. No evidence of hemorrhage or abscess. Chest X-Ray 04/26/20 00:00 IMPRESSION: Decrease in right pleural effusion compared to CT chest 04/11/2020 Assessment & Plan - Diagnosis (1) Enterocolitis due to Clostridium difficile, not specified as recurrent Is this a current diagnosis for this admission?: Yes Plan: Continue p.o. vancomycin (2) Sepsis Qualifiers: Sepsis type: sepsis due to unspecified organism Sepsis acute organ dysfunction status: unspecified Qualified Code(s): A41.9 - Sepsis, unspecified organism Is this a current diagnosis for this admission?: Yes (3) End stage renal disease Is this a current diagnosis for this admission?: Yes - Time Time Spent with patient: 15-24 minutes Level of Care: IMCU
--- NOTE | 2020-04-28 21:00 | Progress Note ---
Provider Note Provider Note: CARDIOLOGY PROGRESS NOTE by Dr. Samia Roper on 04/28/2020. SUBJECTIVE: The patient has no further diarrhea. He has no nausea vomiting. He has no chest pain or discomfort. The patient intermittent second-degree type I Mobitz Wenckebach AV block. He is asymptomatic from it. He is off the dopamine and his blood pressure is maintained. There is no ventricle arrhythmia seen on the monitor. There is no recurrence of TIA CVA symptoms. There is no shortness of breath. There is no PND orthopnea. The patient is afebrile. PHYSICAL EXAMINATION: The patient appears to be chronically ill and is a frail build and appears malnourished. He is in no acute distress. Selected Entries 04/28/20 08:33 Temperature 97.9 F Temperature Oral Source Pulse Rate 65 Respiratory 18 Rate Blood Pressure 100/58 L Blood Pressure 72 Mean BP Location Left Arm BP Position Supine O2 Sat by Pulse 100 Oximetry Oxygen Flow 3 Rate Oxygen Delivery Nasal Cannula Method HEAD: Is atraumatic normocephalic. EYES: Pupils equal round regular reactive light accommodation. Extraocular movements are normal. There is no conjunctival pallor. There is no scleral icterus. EARS: Tympanic membranes are intact. External auditory canals are clear. NOSE: There is no deviated nasal septum. There is no inflammation nasal mucous membrane. MOUTH: Mucous membranes of the mouth is dry. Tongue is very dry. There is no ulcers. There is no bleeding from gums. THROAT: There is no redness of the oropharynx there is no exudates. SKIN: There is no skin rashes. There is no petechia or ecchymosis. NECK: Is supple. There is no JVD. Carotids are equal there is no bruits. There is no lymphadenopathy. There is no axillary muscle respiration use. LUNGS: Is clear to auscultation percussion without any rhonchi rales or wheezing. HEART: S1-S2 is heard. There is no S3 gallop. There is no S4 gallop. There is systolic murmur left sternal border and the apex there is no rub. ABDOMEN: Is soft. Nontender there is no paraspinal megaly. Bowel sounds are well heard. EXTREMITIES: Femorals are diminished there is no femoral bruits. Leg pulses are diminished. There is no pedal edema. There is no DVT cellulitis. There is no calf tenderness. 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 PSYCHIATRIC: The patient appears to be slightly depressed. But his judgment and insight are intact. Labs- All tests 24 hr 04/27/20 04/28/20 04/28/20 21:32 06:18 06:18 WBC 6.0 RBC 3.43 L Hgb 10.8 L D Hct 32.8 L MCV 96 MCH 31.5 MCHC 32.9 RDW 16.0 H Plt Count 169 Lymph % (Auto) 33.4 Greene % (Auto) 9.6 Eos % (Auto) 3.6 Baso % (Auto) 0.5 Absolute Neuts (auto) 3.2 Absolute Lymphs (auto) 2.0 Absolute Monos (auto) 0.6 Absolute Eos (auto) 0.2 Absolute Basos (auto) 0.0 Seg Neutrophils % 52.9 Sodium 139.3 Potassium 3.9 Chloride 102 Carbon Dioxide 25 Anion Gap 12 BUN 30 H D Creatinine 2.85 H Est GFR ( Amer) 27 L Est GFR (MDRD) Non-Af 22 L Glucose 72 L POC Glucose 84 Calcium 8.6 04/28/20 04/28/20 04/28/20 08:23 11:47 17:38 WBC RBC Hgb Hct MCV MCH MCHC RDW Plt Count Lymph % (Auto) Greene % (Auto) Eos % (Auto) Baso % (Auto) Absolute Neuts (auto) Absolute Lymphs (auto) Absolute Monos (auto) Absolute Eos (auto) Absolute Basos (auto) Seg Neutrophils % Sodium Potassium Chloride Carbon Dioxide Anion Gap BUN Creatinine Est GFR ( Amer) Est GFR (MDRD) Non-Af Glucose POC Glucose 77 94 102 Calcium Chest X-Ray 04/25/20 19:42 IMPRESSION: Pulmonary edema with small pleural effusions and adjacent airspace disease. Abdomen/Pelvis CT 04/26/20 00:00 IMPRESSION: No significant change. No evidence of hemorrhage or abscess. Chest X-Ray 04/26/20 00:00 IMPRESSION: Decrease in right pleural effusion compared to CT chest 04/11/2020 IMPRESSION/RECOMMENDATION: 1. Elevated troponin I: This is secondary to supply demand mismatch due to severe dehydration and hypotension. No definite evidence of non-ST elevation [place]. We will treat the underlying cause. 2. Hypotension: Due to severe dehydration. But need to assess for sepsis. The patient continues to be on Ancef as per ID recommendation. The patient is afebrile. The patient's hypotension is resolved. The patient is off dopamine. 3. Severe vomiting and diarrhea: The patient C. difficile is positive. This is improving. Continue vancomycin. The patient claims no further episodes of di arrhea. There is no nausea vomiting. 4. Severe dehydration: Note that the patient did have fluid resuscitation. Will need to be cautious with fluid replacement since the patient has end-stage renal disease and is on hemodialysis. This seems to have resolved 5. History of methicillin sensitive Staphylococcus aureus. Recently treated with antibiotics. 6. Coronary artery disease history of coronary artery bypass graft surgery. No anginal symptoms. 7.? Atrial fibrillation: We will recheck the patient's EKG 8. Ischemic cardiomyopathy with moderately reduced LV ejection fraction of 40% to 45%. 9. History of Mobitz type I second-degree AV block. This is intermittent. With a baseline patient having significant first-degree AV block. No hemodynamic compromise. 10 prior history of cardiac arrest due to pulseless electrical activity: No recurrence. 11. 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 12. Peripheral vascular disease: History of balloon angioplasty of right femoral artery. 13. History of end-stage renal disease on dialysis. Continue this. 14. Malnutrition: Recommend dietary consult for nutritional support. Medications reviewed. Medication regimen and management plan discussed with Dr. Partida covering Dr. Girard. Medical decision making is a moderate complexity. 40 minutes spent on this patient more than 50% of time spent in direct patient care. Will follow.
--- NOTE | 2020-04-28 21:55 | EKG REPORT ---
SEVERITY:- ABNORMAL ECG - SINUS RHYTHM MOBITZ I AV BLOCK (WENCKEBACH) PROBABLE INFERIOR INFARCT, AGE INDETERMINATE BORDERLINE R WAVE PROGRESSION, ANTERIOR LEADS LATERAL LEADS ARE ALSO INVOLVED BORDERLINE PROLONGED QT INTERVAL : Confirmed by: Samia Roper MD 28-Apr-2020 21:53:57
[2020-04-29] MEDS: HEPARIN SOD (PORCINE) 5,000 UNIT/ML 1 ML VIAL SUBCUT SCH ×3 (05:43→21:44)
[2020-04-29] MEDS: VANCOMYCIN HCL INJ 500 MG VIAL PO SCH ×4 (05:44→23:10)
[2020-04-29 06:28] LABS: ANION GAP 11 (5-19); BLOOD UREA NITROGEN 42 mg/dL (7-20); CALCIUM 8.7 mg/dL (8.4-10.2); CARBON DIOXIDE 24 mmol/L (22-30); CHLORIDE 105 mmol/L (98-107); GLUCOSE 85 mg/dL (75-110); POTASSIUM 4.5 mmol/L (3.6-5.0)
[2020-04-29] MEDS: INSULIN LISPRO 100 UNIT/ML 3 ML VIAL SUBCUT SCH ×3 (12:56→21:43)
[2020-04-29] MEDS: PANTOPRAZOLE SODIUM 40 MG VIAL IV SCH ×2 (13:01→21:44)
--- NOTE | 2020-04-29 14:03 | PDOC PROGRESS REPORT ---
Subjective Progress Note for:: 04/29/20 Subjective:: Patient seen by the bedside, on hemodialysis he has C. difficile colitis with diarrhea, on p.o. vancomycin Reason For Visit: C DIFF COLITIS Physical Exam Vital Signs: Temp Pulse Resp BP Pulse Ox 97.7 F 56 L 18 101/45 L 100 04/29/20 07:58 04/29/20 07:58 04/29/20 07:58 04/29/20 07:58 04/29/20 07:58 Intake & Output 04/28/20 04/29/20 04/30/20 06:59 06:59 06:59 Intake Total 1575 440 Output Total 1500 Balance 75 440 Weight 51.1 kg 53.8 kg General appearance: PRESENT: no acute distress Eye exam: PRESENT: PERRLA Respiratory exam: PRESENT: clear to auscultation jolie Cardiovascular exam: PRESENT: +S1, +S2 Results Laboratory Results: 04/28/20 06:18 04/29/20 05:42 04/29/20 05:42 Sodium 140.2 Potassium 4.5 Chloride 105 Carbon Dioxide 24 Anion Gap 11 BUN 42 H Creatinine 4.01 H Est GFR ( Amer) 18 L Glucose 85 Calcium 8.7 04/25/20 04/26/20 04/26/20 19:18 00:51 07:45 Creatine Kinase 182 H CK-MB (CK-2) Troponin I 0.127 0.151 04/26/20 07:45 Creatine Kinase CK-MB (CK-2) 4.11 Troponin I 0.251 Impressions: Abdomen/Pelvis CT 04/26/20 00:00 IMPRESSION: No significant change. No evidence of hemorrhage or abscess. Chest X-Ray 04/26/20 00:00 IMPRESSION: Decrease in right pleural effusion compared to CT chest 04/11/2020 Assessment & Plan - Diagnosis (1) Enterocolitis due to Clostridium difficile, not specified as recurrent Is this a current diagnosis for this admission?: Yes Plan: Continue p.o. vancomycin (2) Sepsis Qualifiers: Sepsis type: sepsis due to unspecified organism Sepsis acute organ dysfunction status: unspecified Qualified Code(s): A41.9 - Sepsis, unspecified organism Is this a current diagnosis for this admission?: Yes (3) End stage renal disease Is this a current diagnosis for this admission?: Yes - Time Time Spent with patient: 25-34 minutes Level of Care: IMCU
[2020-04-29] MEDS: IPRATROPIUM/ALBUTEROL 0.5-2.5 MG/3 ML AMPUL NEB PRN (15:12)
--- NOTE | 2020-04-29 21:09 | Progress Note ---
Provider Note Provider Note: CARDIOLOGY PROGRESS NOTE by Dr. Samia Roper on 04/29/2020. Subjective: The patient denies any chest pain or discomfort. There is no shortness of breath. The patient has significant first-degree AV block and intermittent second-degree Wenckebach AV block. He is asymptomatic from it and hemodynamically stable. He denies any PND orthopnea or shortness of breath. There is no ventricular arrhythmias seen on the monitor. There is no tacky atrial arrhythmias. There is no TIA CVA symptoms. PHYSICAL EXAMINATION: The patient is a frail build and appears to be chronically ill. In no acute distress. Selected Entries 04/29/20 15:56 Temperature 97.6 F Temperature Oral Source Pulse Rate 74 Respiratory 18 Rate Blood Pressure 138/68 H Blood Pressure 91 Mean BP Location Left Arm BP Position Supine O2 Sat by Pulse 99 Oximetry Oxygen Flow 2.00 Rate Oxygen Delivery Nasal Cannula Method HEAD: Is atraumatic normocephalic. EYES: Pupils equal round regular reactive light accommodation. Extraocular movements are normal. There is no conjunctival pallor. There is no scleral icterus. EARS: Tympanic membranes are intact. External auditory canals are clear. NOSE: There is no deviated nasal septum. There is no inflammation nasal mucous membrane. MOUTH: Mucous membranes of the mouth is dry. Tongue is very dry. There is no ulcers. There is no bleeding from gums. THROAT: There is no redness of the oropharynx there is no exudates. SKIN: There is no skin rashes. There is no petechia or ecchymosis. NECK: Is supple. There is no JVD. Carotids are equal there is no bruits. There is no lymphadenopathy. There is no axillary muscle respiration use. LUNGS: Is clear to auscultation percussion without any rhonchi rales or wheezing. HEART: S1-S2 is heard. There is no S3 gallop. There is no S4 gallop. There is systolic murmur left sternal border and the apex there is no rub. ABDOMEN: Is soft. Nontender there is no paraspinal megaly. Bowel sounds are well heard. EXTREMITIES: Femorals are diminished there is no femoral bruits. Leg pulses are diminished. There is no pedal edema. There is no DVT cellulitis. There is no calf tenderness. 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 PSYCHIATRIC: The patient appears to be slightly depressed. But his judgment and insight are intact. Labs- All tests 24 hr 04/28/20 04/29/20 04/29/20 21:19 05:42 07:59 Sodium 140.2 Potassium 4.5 Chloride 105 Carbon Dioxide 24 Anion Gap 11 BUN 42 H Creatinine 4.01 H Est GFR ( Amer) 18 L Est GFR (MDRD) Non-Af 15 L Glucose 85 POC Glucose 93 99 Calcium 8.7 04/29/20 04/29/20 11:55 15:58 Sodium Potassium Chloride Carbon Dioxide Anion Gap BUN Creatinine Est GFR ( Amer) Est GFR (MDRD) Non-Af Glucose POC Glucose 80 132 H Calcium Chest X-Ray 04/25/20 19:42 IMPRESSION: Pulmonary edema with small pleural effusions and adjacent airspace disease. Abdomen/Pelvis CT 04/26/20 00:00 IMPRESSION: No significant change. No evidence of hemorrhage or abscess. Chest X-Ray 04/26/20 00:00 IMPRESSION: Decrease in right pleural effusion compared to CT chest 04/11/2020 IMPRESSION/RECOMMENDATION: 1. Elevated troponin I: This is secondary to supply demand mismatch due to severe dehydration and hypotension. No definite evidence of non-ST elevation [place]. We will treat the underlying cause. 2. Hypotension: Due to severe dehydration. But need to assess for sepsis. The patient continues to be on Ancef as per ID recommendation. The patient is afebrile. The patient's hypotension is resolved. The patient is off dopamine. 3. Severe vomiting and diarrhea: The patient C. difficile is positive. This is improving. Continue vancomycin. The patient claims no further episodes of diarrhea. There is no nausea vomiting. 4. Severe dehydration: Note that the patient did have fluid resuscitation. Will need to be cautious with fluid replacement since the patient has end-stage renal disease and is on hemodialysis. This seems to have resolved 5. History of methicillin sensitive Staphylococcus aureus. Recently treated with antibiotics. 6. Coronary artery disease history of coronary artery bypass graft surgery. No anginal symptoms. 7.? Atrial fibrillation: We will recheck the patient's EKG 8. Ischemic cardiomyopathy with moderately reduced LV ejection fraction of 40% to 45%. 9. History of Mobitz type I second-degree AV block. This is intermittent. With a baseline patient having significant first-degree AV block. No hemodynamic compromise. 10 prior history of cardiac arrest due to pulseless electrical activity: No recurrence. 11. 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 12. Peripheral vascular disease: History of balloon angioplasty of right femoral artery. 13. History of end-stage renal disease on dialysis. Continue this. 14. Malnutrition: Recommend dietary consult for nutritional support. Medications reviewed. Medication regimen and management plan discussed with Dr. Partida covering Dr. Girard. Medical decision making is a moderate complexity. 40 minutes spent on this patient more than 50% of time spent in direct patient care. Will follow.
[2020-04-30] MEDS ORDERED: HEPARIN SOD (PORCINE) 1,000 UNIT/ML 10 ML VIAL IV PRN (05:00)
[2020-04-30] MEDS: HEPARIN SOD (PORCINE) 5,000 UNIT/ML 1 ML VIAL SUBCUT SCH (05:23)
[2020-04-30] MEDS: VANCOMYCIN HCL INJ 500 MG VIAL PO SCH ×2 (05:23→12:49)
[2020-04-30 06:15] LABS: HEMOGLOBIN 10.3 g/dL (13.5-17.0); MEAN CORPUSCULAR HEMOGLOBIN 31.7 pg (27.0-33.4); MEAN CORPUSCULAR HGB CONC 33.2 g/dL (32.0-36.0); MEAN CORPUSCULAR VOLUME 96 fl (80-97); PLATELET COUNT 167 10^3/uL (150-450); RED BLOOD COUNT 3.25 10^6/uL (4.35-5.55); RED CELL DISTRIBUTION WIDTH 15.8 % (11.5-14.0); WHITE BLOOD COUNT 6.1 10^3/uL (4.0-10.5)
[2020-04-30 06:39] LABS: ANION GAP 11 (5-19); BLOOD UREA NITROGEN 52 mg/dL (7-20); CALCIUM 8.8 mg/dL (8.4-10.2); CARBON DIOXIDE 23 mmol/L (22-30); CHLORIDE 107 mmol/L (98-107); GLUCOSE 92 mg/dL (75-110); POTASSIUM 4.1 mmol/L (3.6-5.0)
[2020-04-30] MEDS: INSULIN LISPRO 100 UNIT/ML 3 ML VIAL SUBCUT SCH ×2 (08:59→12:44)
--- NOTE | 2020-04-30 09:17 | PDOC DISCHARGE SUMMARY ---
Impression - Admit/DC Date/PCP Admission Date/Primary Care Provider: 04/26/20 00:19 KEEGAN MONTENEGRO MD Discharge Date: 04/30/20 - Discharge Diagnosis (1) Sepsis associated hypotension Is this a current diagnosis for this admission?: Yes (2) C. difficile colitis Is this a current diagnosis for this admission?: Yes (3) Diabetes mellitus, type II Is this a current diagnosis for this admission?: Yes (4) Anemia in chronic kidney disease (CKD) Is this a current diagnosis for this admission?: Yes (5) Cerebrovascular disease Is this a current diagnosis for this admission?: Yes (6) Chronic diastolic (congestive) heart failure Is this a current diagnosis for this admission?: Yes (7) Coronary artery disease Is this a current diagnosis for this admission?: Yes (8) ESRD on hemodialysis Is this a current diagnosis for this admission?: Yes (9) Elevated troponin I level Is this a current diagnosis for this admission?: Yes (10) Gastroesophageal reflux disease Is this a current diagnosis for this admission?: Yes (11) History of kidney transplant Is this a current diagnosis for this admission?: Yes (12) Sleep apnea syndrome Is this a current diagnosis for this admission?: Yes (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 Vancomycin HCl [Vancocin Inj 500 mg Vial] 125 mg PO Q6 #60 vial Home Medications: Albuterol Sulfate [Albuterol Sulfate Hfa] 2 puff IH Q4HP PRN 04/12/20 Bimatoprost [Lumigan 0.01% Oph Soln 2.5 ml/Bottle] 1 drop OU QHS 04/12/20 Pantoprazole Sodium [Protonix [address] Tablet] 40 mg PO DAILY #30 tablet. 04/30/20 Vancomycin HCl [Vancocin Inj 500 mg Vial] 125 mg PO Q6 #60 vial 04/30/20 History of Present Illiness History of Present Illness: KATHRYN HURLEY is a 64 year old maleWith a very complex medical problems including the history of type 2 diabetes with a history of the end-stage renal disease status post renal transplant reject currently on hemodialysisAnd a history of the coronary artery disease status post cardiac arrest status post bypassAnd history of the Guillain-Ventura syndrome status post renal transplantAnd a history of strokeHistory of the ESBL in the urine and the multiple C. difficile issues. Patient's went to the hemodialysis yesterday and complaining of weakness and patient's blood pressure was in the 80 range and patient was some low-grade fever according to the patient have a loose stool for the last several days Patient also receiving some IV antibiotic for 4 weeks due to the some kind of infections of the catheter site Patient with a history of the C. difficile in the past in the dialysis patient's blood pressure was low sent to the emergency department with patient's blood pressure was in the 80 range patient received the 250 cc of the bolus goes to up to 97 discussed with the nephrology by ER physician and suggest to admit the patient's Patient also received another 250 cc bolus patient's when I saw it alert awake oriented x4 just feeling weak Patient's cardiac enzyme is elevated patient is recently transferred to the [facility] last month and according to the patient's the [facility] ardiologist told that everything is okay have echocardiogram done Discussed with the Dr. Storey here regarding the elevated cardiac enzymes all of the EKG suggest stopping the dopamine drip because of the hypotension Patient's also will check the cortisol level as per discussed with the pediatric physician because patient is always very high risk about the multiple complications I think patient is currently stable in IMCU But again discussed with the pediatric physician possible may need to be transferred to the ICU if is not getting better with the blood pressures We will get the EKG chest x-ray and ABG Try to contact the patient's white unable to contact her Discussed with the funding specialist at this point is okay to give her some more IV fluid We will start the p.o. vancomycin and continues the IV Flagyl discussed with nephrology about IV antibiotic he will get the medical record from the dialysis center Hospital Course Hospital Course: This is a 64-year-old male with a multiple medical problems admitted in the hospital for the hypertension sepsis and C. difficile colitPatients treated with the IV cefazolin due to the Methicillin sensitive Staphylococcus aureusWhich continues from the [facility] and discussed with the infectious disease Continues on 05/11 Patient also treated with the p.o. vancomycinFor 2 weeks for C. difficile colitis Patient nausea and vomiting is all resolved Patient other medical problem is all stable Seen by Dr. STOREY cardiology and suggest to avoid the clonidine and beta-sudheer due to the second-degree AV block Patient also seen by the nephrology continues to hemodialysis Physical Exam Vital Signs: Temp Pulse Resp BP Pulse Ox 97.6 F 73 20 145/79 H 92 04/30/20 03:51 04/30/20 07:00 04/30/20 03:51 04/30/20 03:51 04/30/20 03:51 Intake & Output 04/29/20 04/30/20 05/01/20 06:59 06:59 06:59 Intake Total 440 357 Balance 440 357 Weight 53.8 kg 52.7 kg General appearance: PRESENT: no acute distress, well-developed, well-nourished Head exam: PRESENT: atraumatic, normocephalic Eye exam: PRESENT: conjunctiva pink, EOMI, PERRLA. ABSENT: scleral icterus Ear exam: PRESENT: normal external ear exam Mouth exam: PRESENT: moist, tongue midline Neck exam: ABSENT: carotid bruit, JVD, lymphadenopathy, thyromegaly Respiratory exam: PRESENT: clear to auscultation jolie. ABSENT: rales, rhonchi, wheezes Cardiovascular exam: PRESENT: RRR. ABSENT: diastolic murmur, rubs, systolic murmur Pulses: PRESENT: normal dorsalis pedis pul Vascular exam: PRESENT: normal capillary refill GI/Abdominal exam: PRESENT: normal bowel sounds, soft. ABSENT: distended, g uarding, mass, organolmegaly, rebound, tenderness Rectal exam: PRESENT: deferred Extremities exam: PRESENT: full ROM. ABSENT: calf tenderness, clubbing, pedal edema Neurological exam: PRESENT: alert, awake, oriented to person, oriented to place, oriented to time, oriented to situation, CN II-XII grossly intact. ABSENT: mo tor sensory deficit Psychiatric exam: PRESENT: appropriate affect, normal mood. ABSENT: homicidal ideation, suicidal ideation Skin exam: PRESENT: dry, intact, warm. ABSENT: cyanosis, rash Results Laboratory Results: WBC 6.1 10^3/uL (4.0-10.5) 04/30/20 05:39 RBC 3.25 10^6/uL (4.35-5.55) L 04/30/20 05:39 Hgb 10.3 g/dL (13.5-17.0) L 04/30/20 05:39 Hct 31.0 % (37.9-51.0) L 04/30/20 05:39 MCV 96 fl (80-97) 04/30/20 05:39 MCH 31.7 pg (27.0-33.4) 04/30/20 05:39 MCHC 33.2 g/dL (32.0-36.0) 04/30/20 05:39 RDW 15.8 % (11.5-14.0) H 04/30/20 05:39 Plt Count 167 10^3/uL (150-450) 04/30/20 05:39 Lymph % (Auto) 33.4 % (13-45) 04/28/20 06:18 Noble % (Auto) 9.6 % (3-13) 04/28/20 06:18 Eos % (Auto) 3.6 % (0-6) 04/28/20 06:18 Baso % (Auto) 0.5 % (0-2) 04/28/20 06:18 Absolute Neuts (auto) 3.2 10^3/uL (1.7-8.2) 04/28/20 06:18 Absolute Lymphs (auto) 2.0 10^3/uL (0.5-4.7) 04/28/20 06:18 Absolute Monos (auto) 0.6 10^3/uL (0.1-1.4) 04/28/20 06:18 Absolute Eos (auto) 0.2 10^3/uL (0.0-0.6) 04/28/20 06:18 Absolute Basos (auto) 0.0 10^3/uL (0.0-0.2) 04/28/20 06:18 Seg Neutrophils % 52.9 % (42-78) 04/28/20 06:18 Carbonic Acid 1.74 mmol/L (1.05-1.35) H 04/26/20 09:34 HCO3/H2CO3 Ratio 15:1 04/26/20 09:34 ABG pH 7.28 (7.35-7.45) L 04/26/20 09:34 ABG pCO2 57.7 mmHg (35-45) H 04/26/20 09:34 ABG pO2 115.9 mmHg (80-100) H 04/26/20 09:34 ABG HCO3 26.6 mmol/L (20-24) H 04/26/20 09:34 ABG Total CO2 28.3 mmol/L (23-27) H 04/26/20 09:34 ABG O2 Saturation 97.7 % (94-98) 04/26/20 09:34 ABG Base Excess -1.0 mmol/L 04/26/20 09:34 FiO2 28% 04/26/20 09:34 Sodium 140.7 mmol/L (137-145) 04/30/20 05:39 Potassium 4.1 mmol/L (3.6-5.0) 04/30/20 05:39 Chloride 107 mmol/L (98-107) 04/30/20 05:39 Carbon Dioxide 23 mmol/L (22-30) 04/30/20 05:39 Anion Gap 11 (5-19) 04/30/20 05:39 BUN 52 mg/dL (7-20) H 04/30/20 05:39 Creatinine 4.95 mg/dL (0.52-1.25) H 04/30/20 05:39 Est GFR ( Amer) 14 (>60) L 04/30/20 05:39 Est GFR (MDRD) Non-Af 12 (>60) L 04/30/20 05:39 Glucose 92 mg/dL (75-110) 04/30/20 05:39 POC Glucose 81 mg/dL (70-110) 04/30/20 05:56 Lactic Acid 0.8 mmol/L (0.7-2.1) 04/27/20 06:38 Calcium 8.8 mg/dL (8.4-10.2) 04/30/20 05:39 Magnesium 1.9 mg/dL (1.6-2.3) 04/26/20 07:45 Total Bilirubin 0.5 mg/dL (0.2-1.3) 04/25/20 19:18 Direct Bilirubin 0.2 mg/dL (0.0-0.4) 04/25/20 19:18 Neonat Total Bilirubin Not Reportable 04/25/20 19:18 Neonat Direct Bilirubin Not Reportable 04/25/20 19:18 Neonat Indirect Bili Not Reportable 04/25/20 19:18 AST 28 U/L (17-59) 04/25/20 19:18 ALT 4 U/L (<50) 04/25/20 19:18 Alkaline Phosphatase 187 U/L (38-126) H 04/25/20 19:18 Creatine Kinase 182 U/L (55-170) H 04/26/20 07:45 CK-MB (CK-2) 4.11 ng/mL (<4.55) 04/26/20 07:45 Troponin I 0.251 ng/mL 04/26/20 07:45 Total Protein 9.4 g/dL (6.3-8.2) H 04/25/20 19:18 Albumin 4.1 g/dL (3.5-5.0) 04/25/20 19:18 Random Cortisol 17.60 ug/dL (None Established) 04/26/20 07:45 Stl C. Difficile GDH Ag POSITIVE (NEGATIVE) 04/25/20 20:17 Stl C.difficile Tox A&B NEGATIVE (NEGATIVE) 04/25/20 20:17 Stl C.difficile Tox PCR POSITIVE (NEGATIVE) 04/25/20 20:17 04/25/20 04/26/20 04/26/20 19:18 00:51 07:45 CK-MB (CK-2) 4.11 Troponin I 0.127 0.151 0.251 Impressions: Chest X-Ray 04/25/20 19:42 IMPRESSION: Pulmonary edema with small pleural effusions and adjacent airspace disease. Abdomen/Pelvis CT 04/26/20 00:00 IMPRESSION: No significant change. No evidence of hemorrhage or abscess. Chest X-Ray 04/26/20 00:00 IMPRESSION: Decrease in right pleural effusion compared to CT chest 04/11/2020 Plan Time Spent: Greater than 30 Minutes - Follow-up with the Dr. Storey in 1 week Stroke Is this a Stroke Patient?: No Acute Heart Failure - Is this a Heart Failure Patient?: No
[2020-04-30 13:07] VITALS: BP 111/62
[2020-04-30] MEDS ORDERED: CEFAZOLIN SODIUM 2 GM in DEXTROSE 5%-WATER 100 ML IV SCH (18:00)
--- NOTE | 2020-04-30 18:17 | PDOC PROGRESS REPORT ---
Subjective Progress Note for:: 04/30/20 Subjective:: I am seeing the patient during dialysis this morning. He is tolerating dialysis very well. He tells me that he still has a slight diarrhea but unlike how he presented last week. He denies any nausea nor vomiting. His blood pressure is much improved and actually currently slightly on the high side. Patient is going to be discharged after dialysis today to continue with his oral vancomycin and IV cefazolin. Reason For Visit: C DIFF COLITIS Physical Exam Vital Signs: Temp Pulse Resp BP Pulse Ox 97.6 F 73 20 145/79 H 92 04/30/20 03:51 04/30/20 07:00 04/30/20 03:51 04/30/20 03:51 04/30/20 03:51 Intake & Output 04/29/20 04/30/20 05/01/20 06:59 06:59 06:59 Intake Total 440 357 Balance 440 357 Weight 53.8 kg 52.7 kg Vitals during dialysis: Blood pressure 161/79, heart rate of 66, blood flow rate of 301/min and dialysate flow rate of 800 mL/min. Exam: General appearance: PRESENT: no acute distress, cooperative, well-developed, well-nourished Head exam: PRESENT: atraumatic, normocephalic Eye exam: PRESENT: conjunctiva slightly pale, PERRLA. ABSENT: scleral icterus Neck exam: ABSENT: JVD Respiratory exam: PRESENT: Normal breath sounds. ABSENT: crackles, rales, rhonchi, unlabored, wheezes Cardiovascular exam: PRESENT: Regular rate rhythm -+S1, +S2. ABSENT: diastolic murmur, systolic murmur GI/Abdominal exam: PRESENT: normal bowel sounds, soft. ABSENT: guarding, mass, tenderness Extremities exam: ABSENT: No edema Neurological exam: PRESENT: alert, awake, oriented to person, place and time. Skin exam: PRESENT: dry, warm, Cardiovascular exam: PRESENT: +S1, +S2 GI/Abdominal exam: PRESENT: normal bowel sounds, soft. ABSENT: organomegaly, tenderness Results Laboratory Results: 04/30/20 05:39 04/30/20 05:39 04/30/20 04/30/20 05:39 05:39 WBC 6.1 RBC 3.25 L Hgb 10.3 L Hct 31.0 L MCV 96 MCH 31.7 MCHC 33.2 RDW 15.8 H Plt Count 167 Sodium 140.7 Potassium 4.1 Chloride 107 Carbon Dioxide 23 Anion Gap 11 BUN 52 H Creatinine 4.95 H Est GFR ( Amer) 14 L Glucose 92 Calcium 8.8 04/25/20 04/26/20 04/26/20 19:18 00:51 07:45 Creatine Kinase 182 H CK-MB (CK-2) Troponin I 0.127 0.151 04/26/20 07:45 Creatine Kinase CK-MB (CK-2) 4.11 Troponin I 0.251 Impressions: Abdomen/Pelvis CT 04/26/20 00:00 IMPRESSION: No significant change. No evidence of hemorrhage or abscess. Chest X-Ray 04/26/20 00:00 IMPRESSION: Decrease in right pleural effusion compared to CT chest 04/11/2020 Assessment & Plan - Diagnosis (1) ESRD on hemodialysis Is this a current diagnosis for this admission?: Yes Plan: We will do dialysis today for 2.5 hours, using the patient's PermCath, with 2 potassium bath, blood flow rate of 300 mL per minute, dialysate flow rate of 800 mL per minute, ultrafiltration 1 L as tolerated, no heparin and no Retacrit. Patient is currently monitoring throughout dialysis treatment. Will adjust treatment accordingly. (2) C. difficile colitis Is this a current diagnosis for this admission?: Yes Plan: Continue oral vancomycin while the patient is on IV cefazolin. (3) Anemia in chronic kidney disease (CKD) Qualifiers: Chronic kidney disease stage: on chronic dialysis Qualified Code(s): N18.6 - End stage renal disease; D63.1 - Anemia in chronic kidney disease; Z99.2 - Dependence on renal dialysis Is this a current diagnosis for this admission?: Yes Plan: No need of Retacrit today. (4) Hemodialysis catheter infection Is this a current diagnosis for this admission?: Yes Plan: Patient had recent MSSA line infection recommended by infectious disease to been IV cefazolin for 4 weeks until May 11, 2020. Continue IV cefazolin as an outpatient during dialysis treatment at [facility]. (5) Hypertension Qualifiers: Hypertension type: essential hypertension Qualified Code(s): I10 - Essential (primary) hypertension Is this a current diagnosis for this admission?: Yes Plan: Blood pressure is now back to his usual usual. Continue blood pressure medications. (6) Diabetes mellitus, type II Qualifiers: Diabetes mellitus mcfp insulin use: unspecified terminal carman insulin use status Diabetes mellitus complication status: with other specified complication Qualified Code(s): E11.69 - Type 2 diabetes mellitus with other specified complication Is this a current diagnosis for this admission?: Yes - Notes Notes: I think patient can be discharged safely home today. Patient to continue his regular outpatient dialysis schedule at [facility]. - Time Time with patient: 15-25 minutes
== END 2020-04-30 13:47 | disposition home health service (06) | DRG 871 ==
LOC: ER 18:12 → EH 04-26 00:19 → 3S 04-26 02:40
PROVIDERS: ADMIT Family Medicine; ATTEND Family Medicine
PROC: 5A09357 Assistance with Respiratory Ventilation, Less than 24 Consecutive Hours, Continuous Positive Airway Pressure (ICD-10-PCS; principal; 2020-04-26)
PROC: 5A1D70Z Performance of Urinary Filtration, Intermittent, Less than 6 Hours Per Day (ICD-10-PCS; 2020-04-27)
DX: A41.9 Sepsis, unspecified organism (principal); N18.6 End stage renal disease; T80.211A Bloodstream infection due to central venous catheter, initial encounter; I13.2 Hypertensive heart and chronic kidney disease with heart failure and with stage 5 chronic kidney disease, or end stage renal disease; I50.32 Chronic diastolic (congestive) heart failure; A04.71 Enterocolitis due to Clostridium difficile, recurrent; N25.81 Secondary hyperparathyroidism of renal origin; I24.8 Other forms of acute ischemic heart disease; E46 Unspecified protein-calorie malnutrition; G82.20 Paraplegia, unspecified; D63.1 Anemia in chronic kidney disease; E11.22 Type 2 diabetes mellitus with diabetic chronic kidney disease; I25.10 Atherosclerotic heart disease of native coronary artery without angina pectoris; K21.9 Gastro-esophageal reflux disease without esophagitis; I44.1 Atrioventricular block, second degree; E78.5 Hyperlipidemia, unspecified; E11.21 Type 2 diabetes mellitus with diabetic nephropathy; F32.9 Major depressive disorder, single episode, unspecified; F41.9 Anxiety disorder, unspecified; G65.0 Sequelae of Guillain-Barre syndrome; G47.33 Obstructive sleep apnea (adult) (pediatric); I25.5 Ischemic cardiomyopathy; E78.00 Pure hypercholesterolemia, unspecified; E86.0 Dehydration; I25.2 Old myocardial infarction; Z68.22 Body mass index [BMI] 22.0-22.9, adult; Z86.14 Personal history of Methicillin resistant Staphylococcus aureus infection; Z99.2 Dependence on renal dialysis; Z86.73 Personal history of transient ischemic attack (TIA), and cerebral infarction without residual deficits; Z95.1 Presence of aortocoronary bypass graft; Z79.899 Other long term (current) drug therapy; Z88.2 Allergy status to sulfonamides; Z99.3 Dependence on wheelchair; Z95.0 Presence of cardiac pacemaker; Z91.19 Patient's noncompliance with other medical treatment and regimen
CPT/HCPCS: 36415; 36600; 71045; 74176; 80048; 80053; 82533; 82550; 82553; 82803; 82962; 83036; 83605; 83735; 84484; 85025; 85027; 87040; 87324; 87449; 87493; 93005; 93010; 94640; 94660; 96374; 96375; 99291; C9113; J0690; J1200; J1265; J1644; J2405; J2765; J3370; J3490; J7030; J7050; J7060; J7620

== ENCOUNTER 2020-05-04 16:02 | Inpatient (IN) | payer MEDICARE ==
[2020-05-04] MEDS ORDERED: VANCOMYCIN HCL INJ 1000 MG VIAL IV ONE (18:20)
--- NOTE | 2020-05-04 18:20 | ER Document Report ---
ED General - General Chief Complaint: Shortness Of Breath Stated Complaint: SHORTNESS OF BREATH Time Seen by Provider: 05/04/20 17:59 Notes: 05/04/20 17:38 - ED Nursing Note by SELENE HOOKERSON [facility] Num: [id number] : 1955 Patient Age: 64 Patient presents to the ED with complaint of worsening SOB. Patient reports SOB that began last week. Patient was recently hospitalized and treated for Cdiff following abx course previously. Patient reports some improvement, reports he is a MWF dialysis patient. Patient reports he was at dialysis today when his SOB worsened. Patient reports cough that is productive with mucous present. Patient reports some improvement when moved to his side on ED bed in his respiratory symptoms. Patient arrived to ED with soiled clothing, large amounts of diarhhea present soaking brief and patient shirt/pants. Patient changed and cleaned. Multiple episodes of diarrhea noted while attempting to clean patient and change linens. Patient reports multiple episodes of diarrhea that began at 1500 today. Patient reports recent weight loss d/t diarrhea. Patient BP noted to be low upon arrival, patient reports occassional low BP and low BP typically following dialysis. Patient afebrile at this time. Patient reports some improvement in difficulty breathing at this time. Patient reports no recent travel or known exposure to COVID. Patient reports negative COVID19 just prior to last admission. Patient currently taking albuterol, pantaprazole and Lumigan. Patient has bilateral foot wounds that he reports are being cared for at this time. Patient has noted skin breakdown on buttock and around genital that he reports began with episodes of diarhhea. Patient is Aox4 with even and unlabored r espirations, speaking in clear and complete sentences, nad noted. Patient requires two patient assist, able to assist with rolling in bed. Patient wheelchair returned to in lobby. Blue lift mat present with patient on arrival, removed, cleaned in room and placed in bag with patient belongings. Patient reports removal of 1.5L at dialysis. my notes 64-year-old black male arrives by EMS with chief complaint of worsening shortness of breath and productive cough for least 10 days. Patient reports he was a dialysis patient for the last 3 years resulting from hypertension and diabetes. He sees Dr. Girard as his physician. Patient reports he just got out of the hospital at [facility] after having infected dialysis port on the right chest and this was changed on 16 April. He got out of the hospital on 17 April. He was seen here and admitted on 25 April because of nausea and vo miting and diarrhea. He was placed on oral vancomycin liquid. Patient went to dialysis today and had removal of 1.2 L. Patient blood pressure was 85 upon arrival systolic he denies any sore throat but is had copious amounts of diarrhea requiring a rectal tube. He has not had any vancomycin for 5 days and had his vancomycin oral called in by Dr. Girard today but it was a IV form according to patient. I spoke with nursing lead refinery supervisor Karoline around 2039 and she advised that the patient is also VRE greater than 1 year and is just had a hankins test last week.. TRAVEL OUTSIDE OF THE [place] IN LAST 30 DAYS: No - Related Data Allergies/Adverse Reactions: sulfamethoxazole [From Bactrim] Allergy (Verified 04/25/20 19:00) trimethoprim [From Bactrim] Allergy (Verified 04/25/20 19:00) Home Medications: Albuterol, Pantaprazole, Lumigan Past Medical History - Social History Smoking Status: Unknown if Ever Smoked Family History: Reviewed & Not Pertinent, CAD Patient has homicidal ideation: No - Past Medical History Cardiac Medical History: Reports: Hx Congestive Heart Failure, Hx Coronary Artery Disease, Hx Heart Attack, Hx Hypercholesterolemia Denies: Hx Hypertension Pulmonary Medical History: Reports: Hx Asthma, Hx Bronchitis, Hx Pneumonia, Hx Intubation, Hx Respiratory Failure, Hx Sleep Apnea - On C Pap Denies: Hx COPD Neurological Medical History: Denies: Hx Cerebrovascular Accident, Hx Seizures Endocrine Medical History: Reports: Hx Diabetes Mellitus Type 1, Hx Diabetes Mellitus Type 2 Renal/ Medical History: Reports: Hx End Stage Renal Disease, Hx Hemodialysis GI Medical History: Reports: Hx Gastroesophageal Reflux Disease Musculoskeletal Medical History: Reports Hx Arthritis Psychiatric Medical History: Reports: Hx Depression - anxiety Infectious Medical History: Reports: Hx C-Diff Past Surgical History: Reports: Hx Cardiac Catheterization, Hx Cardiac Surgery - bipass x4, Hx Coronary Artery Bypass Graft - Quadruple bypass 2007, Hx Kidney (Renal Surgery) - RENAL TRANSPLANT, Hx Vascular Surgery - left AV fistual, Other - History peritoneal dialysis catheter placement and removal - Immunizations Immunizations up to date: Yes Hx Diphtheria, Pertussis, Tetanus Vaccination: No Hx Pneumococcal Vaccination: 08/16/16 Physical Exam - Vital signs Vitals: Pulse Ox 97 05/04/20 16:03 Course - Vital Signs Vital signs: Temp Pulse Resp BP Pulse Ox 97.9 F 28 H 99/65 L 97 05/04/20 17:38 05/04/20 19:31 05/04/20 19:31 05/04/20 16:03 - Laboratory Result Diagrams: 05/04/20 19:00 05/04/20 19:00 Laboratory results interpreted by me: 05/04/20 05/04/20 19:00 19:00 RBC 4.21 L RDW 16.0 H Lymph % (Auto) 10.1 L Seg Neutrophils % 83.8 H BUN 21 H Creatinine 2.16 H Est GFR ( Amer) 37 L Est GFR (MDRD) Non-Af 31 L Alkaline Phosphatase 152 H Total Protein 9.9 H - Diagnostic Test Radiology reviewed: Reports reviewed Critical Care Note - Critical Care Note Total time excluding time spent on procedures (mins): 90 Comments: I spoke with Dr. Girard at approximately 1900 and he advises transfer to [facility] because of potential infection from his port site which was changed on 16 April. Site appears to be clean at this time. I called up and spoke with Ines at [facility] and she advised " accepting doctor may refuse if anything can be done here.". I called back Dr. Girard at [phone] and he advises admission but also get a 2-hour hankins test and consult Dr. Roper and a cardiac e saurabh Discharge - Discharge Clinical Impression: Chronic renal failure, stage 4 (severe), Pleural effusion on right, C. difficile colitis Pneumonia Qualifiers: Pneumonia type: due to unspecified organism Laterality: right Lung location: lower lobe of lung Qualified Code(s): J18.9 - Pneumonia, unspecified organism Condition: Fair Disposition: ADMITTED INPATIENT Admitting Provider: [facility] Admitted: [facility]
[2020-05-04] MEDS ORDERED: LEVOFLOXACIN 500 MG/D5W RTU 500 MG/100 ML RTUPB IV ONE (18:22)
[2020-05-04] MEDS ORDERED: NORMAL SALINE 500 ML IV ONE (18:22)
--- NOTE | 2020-05-04 18:38 | RADIOLOGY REPORT (SQ) ---
EXAM DESCRIPTION: CHEST SINGLE VIEW IMAGES COMPLETED DATE/TIME: 05/04/2020 6:14 pm REASON FOR STUDY: sob COMPARISON: 04/26/2020 EXAM PARAMETERS: NUMBER OF VIEWS: One view. TECHNIQUE: Single frontal radiographic view of the chest acquired. RADIATION DOSE: NA LIMITATIONS: None. FINDINGS: LUNGS AND PLEURA: Left pleural effusion. Smaller right pleural effusion. Ill-defined opa cification in the right base. MEDIASTINUM AND HILAR STRUCTURES: No masses. Contour normal. HEART AND VASCULAR STRUCTURES: Cardiomegaly. No mike pulmonary edema. BONES: No acute findings. HARDWARE: Sternotomy wires. Dual-lumen catheter on the right. OTHER: No other significant finding. IMPRESSION: Left pleural effusion with smaller right pleural effusion. Cannot exclude limited airsp daniel disease in the right lower lobe, pneumonia versus atelectasis. TECHNICAL DOCUMENTATION: JOB ID: [id number] 2010 [employer]- All Rights Reserved Reading location - IP/workstation name: [email or web address]
[2020-05-04] MEDS ORDERED: LACTOBACILLUS ACIDOPHILUS 250 MG TAB PO ONE (18:43)
[2020-05-04 19:26] LABS: ABSOLUTE EOSINOPHILS # (AUTO) 0.1 10^3/uL (0.0-0.6); ABSOLUTE LYMPHOCYTES (AUTO) 0.8 10^3/uL (0.5-4.7); ABSOLUTE MONOCYTES (AUTO) 0.3 10^3/uL (0.1-1.4); ABSOLUTE NEUT (AUTO) 6.3 10^3/uL (1.7-8.2); BASOPHILS % (AUTO) 0.4 % (0-2); EOSINOPHILS % (AUTO) 1.6 % (0-6); HEMATOCRIT 40.9 % (37.9-51.0); HEMOGLOBIN 13.5 g/dL (13.5-17.0); LYMPHOCYTES % (AUTO) 10.1 % (13-45); MEAN CORPUSCULAR HEMOGLOBIN 32.1 pg (27.0-33.4); MEAN CORPUSCULAR VOLUME 97 fl (80-97); MONOCYTES % (AUTO) 4.1 % (3-13); PLATELET COUNT 235 10^3/uL (150-450); RED BLOOD COUNT 4.21 10^6/uL (4.35-5.55); SEGMENTED NEUTROPHILS % (AUTO) 83.8 % (42-78); TOTAL CELLS COUNTED % (AUTO) 100 %; WHITE BLOOD COUNT 7.5 10^3/uL (4.0-10.5)
[2020-05-04 19:45] LABS: ALBUMIN 4.2 g/dL (3.5-5.0); ALKALINE PHOSPHATASE 152 U/L (38-126); ANION GAP 13 (5-19); ASPARTATE AMINO TRANSFERASE 24 U/L (17-59); BILIRUBIN,DIRECT 0.3 mg/dL (0.0-0.4); BILIRUBIN,TOTAL 0.5 mg/dL (0.2-1.3); BLOOD UREA NITROGEN 21 mg/dL (7-20); CALCIUM 9.3 mg/dL (8.4-10.2); CARBON DIOXIDE 23 mmol/L (22-30); CHLORIDE 102 mmol/L (98-107); CREATINE KINASE 56 U/L (55-170); GLUCOSE 105 mg/dL (75-110); POTASSIUM 4.1 mmol/L (3.6-5.0); TOTAL PROTEIN 9.9 g/dL (6.3-8.2)
--- NOTE | 2020-05-04 20:19 | EKG REPORT ---
SEVERITY:- ABNORMAL ECG - SINUS TACHYCARDIA PAIRED VENTRICULAR PREMATURE COMPLEXES FIRST DEGREE AV BLOCK PROBABLE LEFT VENTRICULAR HYPERTROPHY PROBABLE INFERIOR INFARCT, AGE INDETERMINATE ANTEROLATERAL INFARCT, AGE INDETERMINATE : Confirmed by: Kevon Madison MD 04-May-2020 20:18:27
[2020-05-04] MEDS ORDERED: VANCOMYCIN HCL INJ 1000 MG VIAL ONE (20:28)
[2020-05-04] MEDS ORDERED: ACETAMINOPHEN 325 MG TABLET PO PRN (21:03)
[2020-05-04] MEDS ORDERED: IPRATROPIUM/ALBUTEROL 0.5-2.5 MG/3 ML AMPUL NEB PRN (21:03)
[2020-05-04] MEDS ORDERED: DEXTROSE 50%-WATER 25 GM/50 ML DISP.SYRIN IV PRN ×2 (21:14)
[2020-05-04] MEDS ORDERED: DEXTROSE 40% GEL 15 GM TUBE PO PRN ×2 (21:14)
[2020-05-04] MEDS ORDERED: GLUCAGON,HUMAN RECOMB 1 MG INJ IM PRN (21:14)
[2020-05-04 21:16] LABS: CREATINE KINASE MB 3.99 ng/mL (<4.55)
[2020-05-04 21:25] LABS: TROPONIN I 0.146 ng/mL
[2020-05-04 21:31] LABS: ANION GAP 13 (5-19); BLOOD UREA NITROGEN 22 mg/dL (7-20); CALCIUM 9.3 mg/dL (8.4-10.2); CARBON DIOXIDE 25 mmol/L (22-30); CHLORIDE 101 mmol/L (98-107); GLUCOSE 94 mg/dL (75-110); POTASSIUM 4.3 mmol/L (3.6-5.0)
[2020-05-04] MEDS: INSULIN LISPRO 100 UNIT/ML 3 ML VIAL SUBCUT SCH (23:16)
[2020-05-04] MEDS: HEPARIN SOD (PORCINE) 5,000 UNIT/ML 1 ML VIAL SUBCUT SCH (23:17)
[2020-05-04] MEDS: DOPAMINE HCL/DEXTROSE 5%-WATER 800 MG/250 ML RTUINJ IV PRN (23:55)
[2020-05-05] MEDS: VANCOMYCIN HCL INJ 500 MG VIAL PO SCH ×4 (01:25→17:21)
[2020-05-05] MEDS: ONDANSETRON HCL INJ/PF 4 MG/2 ML SDV IV PRN ×2 (01:25→09:16)
[2020-05-05] MEDS: PANTOPRAZOLE SODIUM 40 MG TABLET.DR PO SCH ×2 (05:35→17:22)
[2020-05-05] MEDS: HEPARIN SOD (PORCINE) 5,000 UNIT/ML 1 ML VIAL SUBCUT SCH ×2 (05:36→14:34)
[2020-05-05 06:19] LABS: ABSOLUTE EOSINOPHILS # (AUTO) 0.1 10^3/uL (0.0-0.6); ABSOLUTE LYMPHOCYTES (AUTO) 1.5 10^3/uL (0.5-4.7); ABSOLUTE MONOCYTES (AUTO) 0.6 10^3/uL (0.1-1.4); ABSOLUTE NEUT (AUTO) 5.8 10^3/uL (1.7-8.2); BASOPHILS % (AUTO) 0.3 % (0-2); EOSINOPHILS % (AUTO) 0.7 % (0-6); HEMATOCRIT 36.4 % (37.9-51.0); LYMPHOCYTES % (AUTO) 19.2 % (13-45); MEAN CORPUSCULAR HEMOGLOBIN 31.7 pg (27.0-33.4); MEAN CORPUSCULAR VOLUME 96 fl (80-97); MONOCYTES % (AUTO) 7.5 % (3-13); PLATELET COUNT 195 10^3/uL (150-450); RED CELL DISTRIBUTION WIDTH 15.6 % (11.5-14.0); SEGMENTED NEUTROPHILS % (AUTO) 72.3 % (42-78); TOTAL CELLS COUNTED % (AUTO) 100 %
[2020-05-05 06:26] LABS: CREATINE KINASE MB 3.59 ng/mL (<4.55)
[2020-05-05 06:29] LABS: TROPONIN I 0.905 ng/mL
[2020-05-05] MEDS: INSULIN LISPRO 100 UNIT/ML 3 ML VIAL SUBCUT SCH ×3 (07:33→16:04)
--- NOTE | 2020-05-05 10:43 | PDOC H&P ---
History of Present Illness Admission Date/PCP: 05/04/20 20:39 KEEGAN MONTENEGRO MD Patient complains of: Shortness of the breath History of Present Illness: KATHRYN HURLEY is a 64 year old male This is a 64-year-old male with multiple medical problems including the history of the type 2 diabetes history of the end-stage renal disease on hemodialysis history of the coronary artery disease history of the recurrent C. difficile history of the methicillin sensitive infections to the [facility] recently changed to [place] with the multiple other comorbidities with a history of a cardiac arrest recently admitting in the hospital for the hypertension C. difficile Patient was discharged on Thursday with the p.o. vancomycin unable to get it for next couple of days to the pharmacy started yesterday before the p.o. vancomycin Patient went to the dialysis yesterday and patient's remove the 1.5 L fluid and patient's was same hypotensive and patient is complaining of shortness of the breath and patient with profuse diarrhea brought to the emergency department by EMS Patient also getting the cefazolin for the dialysis Thursday and Thursday In the emergency department patient's to have profuse diarrhea and patient was little hypotensive receiving the fluid bolus feeling better patient Initially with ongoing problem discussed with the ER physicians to transport the [place] [facility] but when he talked to the [place] there is no bed availability decided to admit here Consult to Dr. Roper suggestedArtem byrd Consulted Dr. Tavares Consult infectious disease We will continues the p.o. vancomycin's as per ID suggestions patient is to have a started on the Levaquin patient received IV vancomycin's Patient's white count is all normal chest x-ray suggested pleural effusions with the possible airspace disease Patient is otherwise stable The [facility] denied any chest pain no shortness of the breath only the complain about nausea Patient have a COVID test done Patient covid with test done 2 weeks back was all negative, no contact with any covid person Past Medical History Cardiac Medical History: Reports: Congestive Heart Failure, Coronary Artery Disease, Myocardial Infarction, Hyperlipidema Denies: Hypertension Pulmonary Medical History: Reports: Asthma, Bronchitis, Intubation, Pneumonia, Respiratory Failure, Sleep Apnea - On C Pap Denies: Chronic Obstructive Pulmonary Disease (COPD) Neurological Medical History: Denies: Seizures Endocrine Medical History: Reports: Diabetes Mellitus Type 1, Diabetes Mellitus Type 2 Renal/ Medical History: Reports: End Stage Renal Disease GI Medical History: Reports: Gastroesophageal Reflux Disease Musculoskeltal Medical History: Reports: Arthritis Psychiatric Medical History: Reports: Depression - anxiety Hematology: Denies: Anemia Infectious Medical History: Reports: Clostridium Difficile Past Surgical History Past Surgical History: Reports: Cardiac Catheterization, Coronary Artery Bypass Graft - Quadruple bypass 2007, Vascular Surgery - left AV fistual, Other - History peritoneal dialysis catheter placement and removal Social History Information Source: Patient Smoking Status: Former Smoker Last Time Smoked: 2006 Frequency of Alcohol Use: None Hx Recreational Drug Use: No Drugs: None Hx Prescription Drug Abuse: No Family History Family History: Reviewed & Not Pertinent, CAD Parental Family History Reviewed: Yes Children Family History Reviewed: Yes Sibling(s) Family History Reviewed.: Yes Medication/Allergy Home Medications: Albuterol Sulfate [Albuterol Sulfate Hfa] 2 puff IH Q4HP PRN 04/12/20 Bimatoprost [Lumigan 0.01% Oph Soln 2.5 ml/Bottle] 1 drop OU QHS 04/12/20 Pantoprazole Sodium [Protonix [address] Tablet] 40 mg PO DAILY #30 tablet.dr 04/30/20 Vancomycin HCl [Vancocin Inj 500 mg Vial] 125 mg PO Q6 #60 vial 04/30/20 Allergies/Adverse Reactions: sulfamethoxazole [From Bactrim] Allergy (Verified 04/25/20 19:00) trimethoprim [From Bactrim] Allergy (Verified 04/25/20 19:00) Review of Systems Constitutional: ABSENT: chills, fever(s), headache(s), weight gain, weight loss Eyes: ABSENT: visual disturbances Ears: ABSENT: hearing changes Cardiovascular: PRESENT: dyspnea on exertion. ABSENT: chest pain, edema, orthropnea, palpitations Respiratory: ABSENT: cough, hemoptysis Gastrointestinal: PRESENT: diarrhea, nausea. ABSENT: abdominal pain, constipation, hematemesis, hematochezia, vomiting Genitourinary: ABSENT: dysuria, hematuria Musculoskeletal: ABSENT: joint swelling Integumentary: ABSENT: rash, wounds Neurological: ABSENT: abnormal gait, abnormal speech, confusion, dizziness, focal weakness, syncope Psychiatric: ABSENT: anxiety, depression, homidical ideation, suicidal ideation Endocrine: ABSENT: cold intolerance, heat intolerance, menstrual abnormalities, polydipsia, polyuria Hematologic/Lymphatic: ABSENT: easy bleeding, easy bruising, lymphadenopathy Physical Exam Vital Signs: Temp Pulse Resp BP Pulse Ox 97.3 F 62 18 96/54 L 100 05/05/20 09:00 05/05/20 09:00 05/05/20 09:00 05/05/20 09:00 05/05/20 09:00 Intake & Output 05/04/20 05/05/20 05/06/20 06:59 06:59 06:59 Intake Total 630 Balance 630 Weight 50 kg General appearance: PRESENT: no acute distress Head exam: PRESENT: atraumatic, normocephalic Eye exam: PRESENT: conjunctiva pink, EOMI, PERRLA. ABSENT: scleral icterus Ear exam: PRESENT: normal external ear exam Mouth exam: PRESENT: moist, tongue midline Neck exam: PRESENT: full ROM. ABSENT: carotid bruit, JVD, lymphadenopathy, thyromegaly Respiratory exam: PRESENT: clear to auscultation jolie Cardiovascular exam: PRESENT: RRR. ABSENT: diastolic murmur, rubs, systolic murmur Vascular exam: PRESENT: normal capillary refill GI/Abdominal exam: PRESENT: normal bowel sounds, soft. ABSENT: distended, guarding, mass, organolmegaly, rebound, tenderness Rectal exam: PRESENT: deferred Neurological exam: PRESENT: alert, awake, oriented to person, oriented to place, oriented to time, oriented to situation. ABSENT: motor sensory deficit Psychiatric exam: PRESENT: appropriate affect, normal mood. ABSENT: homicidal ideation, suicidal ideation Skin exam: PRESENT: dry, intact, warm. ABSENT: cyanosis, rash Results Laboratory Results: 05/05/20 04:54 05/04/20 20:44 05/04/20 05/04/20 05/04/20 19:00 19:00 20:44 WBC 7.5 RBC 4.21 L Hgb 13.5 Hct 40.9 MCV 97 MCH 32.1 MCHC 33.0 RDW 16.0 H Plt Count 235 Seg Neutrophils % 83.8 H Sodium 137.5 138.7 Potassium 4.1 4.3 Chloride 102 101 Carbon Dioxide 23 25 Anion Gap 13 13 BUN 21 H 22 H Creatinine 2.16 H 2.24 H Est GFR ( Amer) 37 L 36 L Glucose 105 94 Lactic Acid Calcium 9.3 9.3 Magnesium Total Bilirubin 0.5 AST 24 Alkaline Phosphatase 152 H Total Protein 9.9 H Albumin 4.2 05/05/20 05/05/20 05/05/20 01:21 04:54 04:54 WBC 8.0 RBC 3.80 L Hgb 12.0 L Hct 36.4 L MCV 96 MCH 31.7 MCHC 33.0 RDW 15.6 H Plt Count 195 Seg Neutrophils % 72.3 Sodium Potassium Chloride Carbon Dioxide Anion Gap BUN Creatinine Est GFR ( Amer) Glucose Lactic Acid 1.1 Calcium Magnesium 1.6 Total Bilirubin AST Alkaline Phosphatase Total Protein Albumin 05/04/20 05/04/20 05/04/20 19:00 19:00 20:44 Creatine Kinase 56 CK-MB (CK-2) Cancelled 3.99 Troponin I Cancelled 0.146 05/05/20 05/05/20 04:54 04:54 Creatine Kinase 103 CK-MB (CK-2) 3.59 Troponin I 0.905 Impressions: Chest X-Ray 05/04/20 16:40 IMPRESSION: Left pleural effusion with smaller right pleural effusion. Cannot exclude limited airspace disease in the right lower lobe, pneumonia versus atelectasis. Assessment & Plan - Diagnosis (1) C. difficile colitis Is this a current diagnosis for this admission?: Yes Plan: Continues the p.o. vancomycin's (2) Pneumonia Qualifiers: Pneumonia type: due to unspecified organism Laterality: right Lung location: lower lobe of lung Qualified Code(s): J18.9 - Pneumonia, unspecified organism Is this a current diagnosis for this admission?: Yes Plan: We will get the CT of the chest and not sure about this pneumonia will continues the IV cefazolin through the dialysis. They will p.o. Levaquin is very difficult situations with the patient and ongoing C. difficile colitis (3) AV block, 2nd degree Is this a current diagnosis for this admission?: Yes Plan: Follow-up with the cardiology Dr. Roper (4) Acute exacerbation of CHF (congestive heart failure) Qualifiers: Heart failure type: diastolic Qualified Code(s): I50.33 - Acute on chronic diastolic (congestive) heart failure Is this a current diagnosis for this admission?: Yes Plan: Continues hemodialysis (5) Anemia in chronic kidney disease (CKD) Qualifiers: Chronic kidney disease stage: on chronic dialysis Qualified Code(s): N18.6 - End stage renal disease; D63.1 - Anemia in chronic kidney disease; Z99.2 - Dependence on renal dialysis Is this a current diagnosis for this admission?: Yes (6) Antibiotic-resistant bacterial infection Is this a current diagnosis for this admission?: Yes Plan: Put the ID consults (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 transplanted heart: [place] heart Associated angina: angina presence unspecified Qualified Code(s): I25.10 - Atherosclerotic heart disease of [place] coronary artery without angina pectoris Is this a current diagnosis for this admission?: Yes Plan: Continues to follow with the cardiology patient is recently seen at [place] [facility] suggest no need for any further intervention at that time (11) Diabetes mellitus, type II Qualifiers: Diabetes mellitus mcc insulin use: unspecified gold tooler insulin use status Diabetes mellitus complication status: with other specified complication Qualified Code(s): E11.69 - Type 2 diabetes mellitus with other specified complication Is this a current diagnosis for this admission?: Yes Plan: Continue sliding-scale (12) ESRD on hemodialysis Is this a current diagnosis for this admission?: Yes Plan: Continue hemodialysis per nephrology (13) Elevated troponin I level Is this a current diagnosis for this admission?: Yes Plan: Patients have recently transported to [place] for the same purpose patient is currently denied any chest pain will repeat the EKG follow-up with the cardiology Dr. Gaming I discussed with the Dr. Roper (14) Hypotension Qualifiers: Hypotension type: unspecified hypotension type Qualified Code(s): I95.9 - Hypotension, unspecified Is this a current diagnosis for this admission?: Yes Plan: The combination of the diarrhea C. difficile colitis combination of the sepsis with ongoing IV antibiotics will continues to support with the dopamine - Time Time Spent: 50 to 70 Minutes Medications reviewed and adjusted accordingly: Yes Anticipated discharge: Other Within: Other - Inpatient Certification Based on my medical assessment, after consideration of the patient's comorbidities, presenting symptoms, or acuity I expect that the services needed warrant INPATIENT care.: Yes I certify that my determination is in accordance with my understanding of Medicare's requirements for reasonable and necessary INPATIENT services [42 CFR 412.3e].: Yes Medical Necessity: Failure to Improve With Outpatient Therapy, Significant Comorbidiites Make Outpatient Treatment Too Risky, Need Close Monitoring Due to Risk of Patient Decompensation, Need For IV Fluids, Need for Nebulizer Therapy and Monitoring of Response, Need for IV Antibiotics Post Hospital Care: D/C Skills Auditor Documentation - Plan Summary Plan Summary: See the MD orders Overall patient's prognosis is very poor with the multiple comorbidity Very extensive discussions with the patient in a very extensive discussion with the patient's Nancy regarding the patient's current conditions Discussed with the patient and the patient waits about the CODE STATUS patient's continues to be a full code at this point but again understand about the p atmichael's multiple comorbidity with underlying significant coronary artery disease peripheral vascular disease hemodialysis and a chronic infections I think is very challenging about this patient with all resources his use will help the patient's continues to be improved
--- NOTE | 2020-05-05 11:28 | EKG REPORT ---
SEVERITY:- ABNORMAL ECG - SINUS RHYTHM FIRST DEGREE AV BLOCK PROBABLE LVH WITH SECONDARY REPOL ABNRM INFERIOR INFARCT, AGE INDETERMINATE LATERAL INFARCT, AGE INDETERMINATE BORDERLINE PROLONGED QT INTERVAL : Confirmed by: Kevon Madison MD 05-May-2020 11:27:36
[2020-05-05 12:55] LABS: CREATINE KINASE MB 3.92 ng/mL (<4.55); TROPONIN I 1.14 ng/mL
[2020-05-05] MEDS: LACTOBACILLUS ACIDOPHILUS 250 MG TAB PO SCH ×2 (13:11→17:22)
[2020-05-05 15:37] LABS: CREATINE KINASE MB 4.08 ng/mL (<4.55)
[2020-05-05 15:41] LABS: TROPONIN I 1.13 ng/mL
[2020-05-05] MEDS: LEVOFLOXACIN 250 MG TABLET PO SCH (17:21)
--- NOTE | 2020-05-05 21:20 | PDOC CONSULTATION ---
Consultation-Blank Consultation: CARDIOLOGY CONSULTATION by Dr. Samia Roper on 05/05/2020. Patient seen at 9:30 AM. 60 minutes spent on this patient more than 50% time spent in direct patient care. REASON FOR CONSULTATION: Patient with hypotension and elevated troponin levels. CONSULT REQUESTING PHYSICIAN: Dr. Girard HISTORY OF PRESENT ILLNESS: Patient is a 64-year-old -[place] male with known history of end-stage renal disease on hemodialysis, coronary artery disease, history of cardiomyopathy with moderately reduced LV ejection fraction, prior history of cardiac arrest due to pulseless electrical activity, history of peripheral vascular disease, and history of C. difficile positive enterocolitis on vancomycin, and history of Staphylococcus aureus bacteremia on antibiotics admitted with increasing diarrhea and hypotension. The patient yesterday had dialysis and had 1.5 L of fluid removed. Subsequently the patient had intensive diarrhea and complained of generalized fatigue and weakness. His blood pressure also was in the 90s. Although he denies any chest pain or discomfort or shortness of breath or PND orthopnea or palpitations or near syncope or syncope the patient found to have borderline blood pressure and also appears to be dehydrated due to increased diarrhea. Unfortunately the patient was recently discharged from the hospital on p.o. vancomycin for each C. difficile colitis, but unfortunately could not get the vancomycin filled. Hence he had increasing diarrhea. The patient's troponin I is elevated although he has no anginal symptoms. Past Medical History Cardiac Medical History: Reports: Congestive Heart Failure, Coronary Artery Disease, Myocardial Infarction, Hyperlipidema Denies: Hypertension Pulmonary Medical History: Reports: Asthma, Bronchitis, Intubation, Pneumonia, Respiratory Failure, Sleep Apnea - On C Pap Denies: Chronic Obstructive Pulmonary Disease (COPD) Neurological Medical History: Denies: Seizures Endocrine Medical History: Reports: Diabetes Mellitus Type 1, Diabetes Mellitus Type 2 Renal/ Medical History: Reports: End Stage Renal Disease GI Medical History: Reports: Gastroesophageal Reflux Disease Musculoskeltal Medical History: Reports: Arthritis Psychiatric Medical History: Reports: Depression - anxiety Hematology: Denies: Anemia Infectious Medical History: Reports: Clostridium Difficile Past Surgical History Past Surgical History: Reports: Cardiac Catheterization, Coronary Artery Bypass Graft - Quadruple bypass 2007, Vascular Surgery - left AV fistual, Other - History peritoneal dialysis catheter placement and removal Social History Information Source: Patient Smoking Status: Former Smoker Last Time Smoked: 2006 Frequency of Alcohol Use: None Hx Recreational Drug Use: No Drugs: None Hx Prescription Drug Abuse: No Family History Family History: Reviewed & Not Pertinent, CAD Parental Family History Reviewed: Yes Children Family History Reviewed: Yes Sibling(s) Family History Reviewed.: Yes Medication/Allergy Home Medications: Albuterol Sulfate [Albuterol Sulfate Hfa] 2 puff IH Q4HP PRN 04/12/20 Bimatoprost [Lumigan 0.01% Oph Soln 2.5 ml/Bottle] 1 drop OU QHS 04/12/20 Pantoprazole Sodium [Protonix [address] Tablet] 40 mg PO DAILY #30 tablet.dr 04/30/20 Vancomycin HCl [Vancocin Inj 500 mg Vial] 125 mg PO Q6 #60 vial 04/30/20 Allergies/Adverse Reactions: sulfamethoxazole [From Bactrim] Allergy (Verified 04/25/20 19:00) trimethoprim [From Bactrim] Allergy (Verified 04/25/20 19:00) Current Medications Generic Name Dose Route Start Last Admin Trade Name Freq PRN Reason Stop Dose Admin Acetaminophen 650 mg 05/04/20 21:03 05/05/20 01:18 Tylenol 325 Mg Tablet PO 06/03/20 21:02 650 mg Q4HP PRN Administration FOR PAIN OR TEMP Albuterol/Ipratropium 3 ml 05/04/20 21:03 Duoneb 3 Ml Ampul NEB 06/03/20 21:02 RTQ6HP PRN SHORTNESS OF BREATH Dextrose 12.5 gm 05/04/20 21:14 Dextrose Inj 50% Syringe (25 Gm/50 Ml) IV 06/03/20 21:13 PRN PRN FOR BG 50-69 IN ALERT PATIENT Protocol Dextrose 25 gm 05/04/20 21:14 Dextrose Inj 50% Syringe (25 Gm/50 Ml) IV 06/03/20 21:13 PRN PRN PER PROTOCOL Protocol Glucagon 1 mg 05/04/20 21:14 Glucagen Inj 1 Mg Vial IM 06/03/20 21:13 PRN PRN Evaluate for BG < 70 Protocol Glucose 15 gm 05/04/20 21:14 Glutose 40% Gel 15 Gm Tube PO 06/03/20 21:13 PRN PRN FOR BG 50-69 IN ALERT PATIENT Protocol Glucose 30 gm 05/04/20 21:14 Glutose 40% Gel 15 Gm Tube PO 06/03/20 21:13 PRN PRN FOR BG < 50 IN ALERT PATIENT Protocol Heparin Sodium (Porcine) 5,000 unit 05/04/20 22:00 05/05/20 14:34 Heparin Inj 5,000 Units/Ml 1 Ml Vial SUBCUT 06/03/20 21:59 Not Given Q8 OSCAR Dopamine HCl/Dextrose 800 mg in 250 mls @ 2.813 mls/hr 05/04/20 21:12 05/04/20 23:55 Dopamine Rtu 800 Mg-D5w 250 Ml (Adult) Premix IV 06/03/20 21:11 0.003 mg/kg/min CONTINUOUS PRN 2.81 mls/hr THIS MED IS NOT "PRN" Administration 0.003 MG/KG/MIN Insulin Human Lispro 0 - 12 unit 05/04/20 22:00 05/05/20 16:04 Humalog Insulin 100 Unit/1 Ml 3 Ml Vial SUBCUT 06/03/20 21:59 Not Given ACHS OSCAR Protocol Lactobacillus Acidophilus 250 mg 05/05/20 11:00 05/05/20 17:22 Bacid 250 Mg Tablet PO 06/04/20 10:59 250 mg BID OSCAR Administration Levofloxacin 250 mg 05/05/20 18:00 05/05/20 17:21 Levaquin 250 Mg Tablet PO 05/12/20 17:59 250 mg QPM OSCAR Administration Ondansetron HCl 4 mg 05/04/20 21:03 05/05/20 09:16 Zofran Inj/Pf 4 Mg/2 Ml Sdv IV 06/03/20 21:02 4 mg Q4HP PRN Administration FOR NAUSEA/VOMITING Pantoprazole Sodium 40 mg 05/05/20 06:00 05/05/20 17:[address] Tablet PO 06/04/20 05:59 40 mg BID@0600,1700 OSCAR Administration Vancomycin HCl 125 mg 05/05/20 00:00 05/05/20 17:21 Vancocin Inj 500 Mg Vial PO 05/12/20 00:00 125 mg Q6 OSCAR Administration Discontinued Medications Generic Name Dose Route Start Last Admin Trade Name Freq PRN Reason Stop Dose Admin Levofloxacin/Dextrose 500 mg in 100 mls @ 100 mls/hr 05/04/20 18:22 05/04/20 20:21 Levaquin Rtu 500mg/D5w 100 Ml Premix IV 05/04/20 19:21 Infused NOW ONE Infusion Sodium Chloride 500 mls @ 0 mls/hr 05/04/20 18:22 05/04/20 20:21 Nacl 0.9% 500 Ml Iv Soln IV 05/04/20 18:23 Infused NOW ONE Infusion Wide Open Lactobacillus Acidophilus 500 mg 05/04/20 18:43 05/04/20 19:18 Bacid 250 Mg Tablet PO 05/04/20 18:44 500 mg NOW ONE Administration Vancomycin HCl 1,000 mg 05/04/20 18:20 05/04/20 21:07 Vancocin Inj 1000 Mg Vial IV 05/04/20 18:21 1,000 mg IVBAG (ED) ONE Administration Vancomycin HCl Confirm 05/04/20 20:28 05/04/20 21:13 Vancocin Inj 1000 Mg Vial Administered 05/04/20 20:29 Not Given Dose 1,000 mg .ROUTE .STK-MED ONE Review of Systems Constitutional: ABSENT: chills, fever(s), headache(s), weight gain, weight loss Eyes: ABSENT: visual disturbances Ears: ABSENT: hearing changes Cardiovascular: PRESENT: dyspnea on exertion. ABSENT: chest pain, edema, orthropnea, palpitations Respiratory: ABSENT: cough, hemoptysis Gastrointestinal: PRESENT: diarrhea, nausea. ABSENT: abdominal pain, constipation, hematemesis, hematochezia, vomiting Genitourinary: ABSENT: dysuria, hematuria Musculoskeletal: ABSENT: joint swelling Integumentary: ABSENT: rash, wounds Neurological: ABSENT: abnormal gait, abnormal speech, confusion, dizziness, focal weakness, syncope Psychiatric: ABSENT: anxiety, depression, homidical ideation, suicidal ideation Endocrine: ABSENT: cold intolerance, heat intolerance, menstrual abnormalities, polydipsia, polyuria Hematologic/Lymphatic: ABSENT: easy bleeding, easy bruising, lymphadenopathy. Physical EXAMINATION: The patient is a frail build and appears to be chronically ill and malnourished. In no acute distress Selected Entries 05/05/20 09:00 Temperature 97.3 F Temperature Oral Source Pulse Rate 62 Respiratory 18 Rate Blood Pressure 96/54 L [Right Upper Arm] Blood Pressure 68 Mean [Right Upper Arm] Blood Pressure Supine Position [Right Upper Arm] O2 Sat by Pulse 100 Oximetry Oxygen Delivery Room Air Method ( includes room air) HEAD: Is atraumatic normocephalic. EYES: Pupils equal round regular reactive light accommodation. Extraocular movements are normal. There is no conjunctival pallor. There is no scleral icterus. EARS: Tympanic membranes are intact. External auditory canals are clear. NOSE: There is no deviated nasal septum. There is no inflammation nasal mucous membrane. MOUTH: Mucous membranes of the mouth is dry. Tongue is very dry. There is no ulcers. There is no bleeding from gums. THROAT: There is no redness of the oropharynx there is no exudates. SKIN: There is no skin rashes. There is no petechia or ecchymosis. NECK: Is supple. There is no JVD. Carotids are equal there is no bruits. There is no lymphadenopathy. There is no axillary muscle respiration use. LUNGS: Is clear to auscultation percussion without any rhonchi rales or wheezing. HEART: S1-S2 is heard. There is no S3 gallop. There is no S4 ga llop. There is systolic murmur left sternal border and the apex there is no rub. ABDOMEN: Is soft. Nontender there is no paraspinal megaly. Bowel sounds are well heard. EXTREMITIES: Femorals are diminished there is no femoral bruits. Leg pulses are diminished. There is no pedal edema. There is no DVT cellulitis. There is no calf tenderness. 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 PSYCHIATRIC: The patient appears to be slightly depressed. But his judgment and insight are intact. Labs- Entire Visit 05/04/20 05/04/20 05/04/20 19:00 19:00 19:00 WBC 7.5 RBC 4.21 L Hgb 13.5 Hct 40.9 MCV 97 MCH 32.1 MCHC 33.0 RDW 16.0 H Plt Count 235 Lymph % (Auto) 10.1 L [place] % (Auto) 4.1 Eos % (Auto) 1.6 Baso % (Auto) 0.4 Absolute Neuts (auto) 6.3 Absolute Lymphs (auto) 0.8 Absolute Monos (auto) 0.3 Absolute Eos (auto) 0.1 Absolute Basos (auto) 0.0 Seg Neutrophils % 83.8 H Sodium 137.5 Potassium 4.1 Chloride 102 Carbon Dioxide 23 Anion Gap 13 BUN 21 H Creatinine 2.16 H Est GFR ( Amer) 37 L Est GFR (MDRD) Non-Af 31 L Glucose 105 POC Glucose Lactic Acid Calcium 9.3 Magnesium Total Bilirubin 0.5 Direct Bilirubin 0.3 Neonat Total Bilirubin Not Reportable Neonat Direct Bilirubin Not Reportable Neonat Indirect Bili Not Reportable AST 24 ALT < 4 Alkaline Phosphatase 152 H Creatine Kinase 56 CK-MB (CK-2) Cancelled Troponin I Cancelled Total Protein 9.9 H Albumin 4.2 05/04/20 05/04/20 05/04/20 20:44 20:44 23:16 WBC RBC Hgb Hct MCV MCH MCHC RDW Plt Count Lymph % (Auto) [place] % (Auto) Eos % (Auto) Baso % (Auto) Absolute Neuts (auto) Absolute Lymphs (auto) Absolute Monos (auto) Absolute Eos (auto) Absolute Basos (auto) Seg Neutrophils % Sodium 138.7 Potassium 4.3 Chloride 101 Carbon Dioxide 25 Anion Gap 13 BUN 22 H Creatinine 2.24 H Est GFR ( Amer) 36 L Est GFR (MDRD) Non-Af 30 L Glucose 94 POC Glucose 80 Lactic Acid Calcium 9.3 Magnesium Total Bilirubin Direct Bilirubin Neonat Total Bilirubin Neonat Direct Bilirubin Neonat Indirect Bili AST ALT Alkaline Phosphatase Creatine Kinase CK-MB (CK-2) 3.99 Troponin I 0.146 Total Protein Albumin 05/05/20 05/05/20 05/05/20 01:00 01:21 04:54 WBC 8.0 RBC 3.80 L Hgb 12.0 L Hct 36.4 L MCV 96 MCH 31.7 MCHC 33.0 RDW 15.6 H Plt Count 195 Lymph % (Auto) 19.2 [place] % (Auto) 7.5 Eos % (Auto) 0.7 Baso % (Auto) 0.3 Absolute Neuts (auto) 5.8 Absolute Lymphs (auto) 1.5 Absolute Monos (auto) 0.6 Absolute Eos (auto) 0.1 Absolute Basos (auto) 0.0 Seg Neutrophils % 72.3 Sodium Potassium Chloride Carbon Dioxide Anion Gap BUN Creatinine Est GFR ( Amer) Est GFR (MDRD) Non-Af Glucose POC Glucose 93 Lactic Acid 1.1 Calcium Magnesium Total Bilirubin Direct Bilirubin Neonat Total Bilirubin Neonat Direct Bilirubin Neonat Indirect Bili AST ALT Alkaline Phosphatase Creatine Kinase CK-MB (CK-2) Troponin I Total Protein Albumin 05/05/20 05/05/20 05/05/20 04:54 04:54 10:20 WBC RBC Hgb Hct MCV MCH MCHC RDW Plt Count Lymph % (Auto) [place] % (Auto) Eos % (Auto) Baso % (Auto) Absolute Neuts (auto) Absolute Lymphs (auto) Absolute Monos (auto) Absolute Eos (auto) Absolute Basos (auto) Seg Neutrophils % Sodium Potassium Chloride Carbon Dioxide Anion Gap BUN Creatinine Est GFR ( Amer) Est GFR (MDRD) Non-Af Glucose POC Glucose 71 Lactic Acid Calcium Magnesium 1.6 Total Bilirubin Direct Bilirubin Neonat Total Bilirubin Neonat Direct Bilirubin Neonat Indirect Bili AST ALT Alkaline Phosphatase Creatine Kinase 103 CK-MB (CK-2) 3.59 Troponin I 0.905 Total Protein Albumin 05/05/20 05/05/20 05/05/20 11:13 11:13 12:11 WBC RBC Hgb Hct MCV MCH MCHC RDW Plt Count Lymph % (Auto) [place] % (Auto) Eos % (Auto) Baso % (Auto) Absolute Neuts (auto) Absolute Lymphs (auto) Absolute Monos (auto) Absolute Eos (auto) Absolute Basos (auto) Seg Neutrophils % Sodium Potassium Chloride Carbon Dioxide Anion Gap BUN Creatinine Est GFR ( Amer) Est GFR (MDRD) Non-Af Glucose POC Glucose Lactic Acid Calcium Magnesium Total Bilirubin Direct Bilirubin Neonat Total Bilirubin Neonat Direct Bilirubin Neonat Indirect Bili AST ALT Alkaline Phosphatase Creatine Kinase Cancelled 102 CK-MB (CK-2) Cancelled Troponin I Cancelled Total Protein Albumin 05/05/20 05/05/20 05/05/20 12:11 14:50 14:50 WBC RBC Hgb Hct MCV MCH MCHC RDW Plt Count Lymph % (Auto) [place] % (Auto) Eos % (Auto) Baso % (Auto) Absolute Neuts (auto) Absolute Lymphs (auto) Absolute Monos (auto) Absolute Eos (auto) Absolute Basos (auto) Seg Neutrophils % Sodium Potassium Chloride Carbon Dioxide Anion Gap BUN Creatinine Est GFR ( Amer) Est GFR (MDRD) Non-Af Glucose POC Glucose Lactic Acid Calcium Magnesium Total Bilirubin Direct Bilirubin Neonat Total Bilirubin Neonat Direct Bilirubin Neonat Indirect Bili AST ALT Alkaline Phosphatase Creatine Kinase 85 CK-MB (CK-2) 3.92 4.08 Troponin I 1.140 1.130 Total Protein Albumin Chest X-Ray 05/04/20 16:40 IMPRESSION: Left pleural effusion with smaller right pleural effusion. Cannot exclude limited airspace disease in the right lower lobe, pneumonia versus atelectasis. .: SINUS TACHYCARDIA [PVPC] . PAIRED VENTRICULAR PREMATURE COMPLEXES [1AVB] . FIRST DEGREE AV BLOCK [LVHCNP] . PROBABLE LEFT VENTRICULAR HYPERTROPHY [IMI26] . PROBABLE INFERIOR INFARCT, AGE INDETERMINATE [ALI66] . ANTEROLATERAL INFARCT, AGE INDETERMINATE 05/05/2020: SINUS RHYTHM [1AVB] . FIRST DEGREE AV BLOCK [LVHPRE] . PROBABLE LVH WITH SECONDARY REPOL ABNRM [IMIQ] . INFERIOR INFARCT, AGE INDETERMINATE [LMI66] . LATERAL INFARCT, AGE INDETERMINATE [LQTB] . BORDERLINE PROLONGED QT INTERVAL IMPRESSION/RECOMMENDATION: 1. Elevated troponin I: This is secondary to supply demand mismatch due to severe dehydration and hypotension. No definite evidence of non-ST elevation NH. We will treat the underlying cause. 2. Hypotension: Due to severe dehydration. But need to assess for sepsis. The patient continues to be on Ancef as per ID recommendation. The patient is afebrile. The patient's blood pressure is slightly better on dopamine.. Will start the patient's midodrine 3. Severe diarrhea: The patient C. difficile is positive. This is improving. Continue vancomycin. The patient claims no further episodes of diarrhea. There is no nausea vomiting. 4. Severe dehydration: . Will need to be cautious with fluid replacement since the patient has end-stage renal disease and is on hemodialysis. Will discuss with nephrology to see if the patient can have less amount of fluid pulled out when he has dialysis. 5. History of methicillin sensitive Staphylococcus aureus. patient on IV antibiotics, with p.o. vancomycin to help combat C. difficile colitis.. 6. Coronary artery disease history of coronary artery bypass graft surgery. No anginal symptoms. 7.Ischemic cardiomyopathy with moderately reduced LV ejection fraction of 40% to 45%. 8. History of Mobitz type I second-degree AV block. This is intermittent. With a baseline patient having significant first-degree AV block. No hemodynamic compromise. 9 prior history of cardiac arrest due to pulseless electrical activity: No recurrence. 10. 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 11. Peripheral vascular disease: History of balloon angioplasty of right femoral artery. 12. History of end-stage renal disease on dialysis. Continue dialysis, but will discuss with nephrology to see if less amount of fluid can be removed.
[2020-05-05 22:13] LABS: CREATINE KINASE MB 3.65 ng/mL (<4.55)
[2020-05-05 22:39] LABS: TROPONIN I 0.997 ng/mL
[2020-05-06] MEDS: VANCOMYCIN HCL INJ 500 MG VIAL PO SCH ×5 (00:06→23:30)
[2020-05-06] MEDS: DOPAMINE HCL/DEXTROSE 5%-WATER 800 MG/250 ML RTUINJ IV PRN (01:09)
[2020-05-06 05:42] LABS: ABSOLUTE EOSINOPHILS # (AUTO) 0.4 10^3/uL (0.0-0.6); ABSOLUTE MONOCYTES (AUTO) 0.6 10^3/uL (0.1-1.4); ABSOLUTE NEUT (AUTO) 2.7 10^3/uL (1.7-8.2); BASOPHILS % (AUTO) 0.5 % (0-2); EOSINOPHILS % (AUTO) 7.2 % (0-6); HEMATOCRIT 35.2 % (37.9-51.0); HEMOGLOBIN 11.5 g/dL (13.5-17.0); LYMPHOCYTES % (AUTO) 34.8 % (13-45); MEAN CORPUSCULAR HEMOGLOBIN 31.9 pg (27.0-33.4); MEAN CORPUSCULAR HGB CONC 32.8 g/dL (32.0-36.0); MEAN CORPUSCULAR VOLUME 97 fl (80-97); MONOCYTES % (AUTO) 10.3 % (3-13); PLATELET COUNT 210 10^3/uL (150-450); RED BLOOD COUNT 3.61 10^6/uL (4.35-5.55); RED CELL DISTRIBUTION WIDTH 15.9 % (11.5-14.0); SEGMENTED NEUTROPHILS % (AUTO) 47.2 % (42-78); TOTAL CELLS COUNTED % (AUTO) 100 %; WHITE BLOOD COUNT 5.7 10^3/uL (4.0-10.5)
[2020-05-06] MEDS: HEPARIN SOD (PORCINE) 5,000 UNIT/ML 1 ML VIAL SUBCUT SCH ×3 (06:29→21:42)
[2020-05-06] MEDS: INSULIN LISPRO 100 UNIT/ML 3 ML VIAL SUBCUT SCH ×5 (06:29→21:41)
[2020-05-06] MEDS: PANTOPRAZOLE SODIUM 40 MG TABLET.DR PO SCH ×2 (06:30→17:14)
[2020-05-06] MEDS: LACTOBACILLUS ACIDOPHILUS 250 MG TAB PO SCH ×2 (09:52→17:14)
--- NOTE | 2020-05-06 10:15 | PDOC PROGRESS REPORT ---
Subjective Progress Note for:: 05/06/20 Subjective:: Patient is currently doing well Patient's denied any nausea no vomiting No abdominal pain no shortness of the breath Diarrhea is much improved Reason For Visit: SOB Physical Exam Vital Signs: Temp Pulse Resp BP Pulse Ox 97.8 F 66 16 106/69 83 L 05/05/20 19:29 05/06/20 09:00 05/05/20 20:28 05/06/20 09:00 05/06/20 06:32 Intake & Output 05/05/20 05/06/20 05/07/20 06:59 06:59 06:59 Intake Total 630 221 Balance 630 221 Weight 50 kg General appearance: PRESENT: no acute distress, well-developed, well-nourished Head exam: PRESENT: atraumatic, normocephalic Eye exam: PRESENT: conjunctiva pink, EOMI, PERRLA. ABSENT: scleral icterus Ear exam: PRESENT: normal external ear exam Mouth exam: PRESENT: moist, tongue midline Neck exam: PRESENT: full ROM. ABSENT: carotid bruit, JVD, lymphadenopathy, thyromegaly Respiratory exam: PRESENT: clear to auscultation jolie Cardiovascular exam: PRESENT: RRR. ABSENT: diastolic murmur, rubs, systolic murmur Vascular exam: PRESENT: normal capillary refill GI/Abdominal exam: PRESENT: normal bowel sounds, soft. ABSENT: distended, guarding, mass, organolmegaly, rebound, tenderness Rectal exam: PRESENT: deferred Neurological exam: PRESENT: alert, awake, oriented to person, oriented to place, oriented to time, oriented to situation. ABSENT: motor sensory deficit Psychiatric exam: PRESENT: appropriate affect, normal mood. ABSENT: homicidal ideation, suicidal ideation Skin exam: PRESENT: dry, intact, warm. ABSENT: cyanosis, rash Results Laboratory Results: 05/06/20 04:26 05/04/20 20:44 05/06/20 05/06/20 04:26 04:26 WBC 5.7 RBC 3.61 L Hgb 11.5 L Hct 35.2 L MCV 97 MCH 31.9 MCHC 32.8 RDW 15.9 H Plt Count 210 Seg Neutrophils % 47.2 Magnesium 1.9 05/04/20 05/04/20 05/04/20 19:00 19:00 20:44 Creatine Kinase 56 CK-MB (CK-2) Cancelled 3.99 Troponin I Cancelled 0.146 05/05/20 05/05/20 05/05/20 04:54 04:54 11:13 Creatine Kinase 103 Cancelled CK-MB (CK-2) 3.59 Troponin I 0.905 05/05/20 05/05/20 05/05/20 11:13 12:11 12:11 Creatine Kinase 102 CK-MB (CK-2) Cancelled 3.92 Troponin I Cancelled 1.140 05/05/20 05/05/20 05/05/20 14:50 14:50 21:20 Creatine Kinase 85 88 CK-MB (CK-2) 4.08 Troponin I 1.130 05/05/20 21:20 Creatine Kinase CK-MB (CK-2) 3.65 Troponin I 0.997 Impressions: Chest X-Ray 05/04/20 16:40 IMPRESSION: Left pleural effusion with smaller right pleural effusion. Cannot exclude limited airspace disease in the right lower lobe, pneumonia versus atelectasis. Assessment & Plan - Diagnosis (1) C. difficile colitis Is this a current diagnosis for this admission?: Yes Plan: Continues p.o. vancomycin (2) Pneumonia Qualifiers: Pneumonia type: due to unspecified organism Laterality: right Lung location: lower lobe of lung Qualified Code(s): J18.9 - Pneumonia, unspecified organism Is this a current diagnosis for this admission?: Yes Plan: Continues p.o. Levaquin (3) AV block, 2nd degree Is this a current diagnosis for this admission?: Yes (4) Acute exacerbation of CHF (congestive heart failure) Qualifiers: Heart failure type: diastolic Qualified Code(s): I50.33 - Acute on chronic diastolic (congestive) heart failure Is this a current diagnosis for this admission?: Yes Plan: Continues with hemodialysis (5) Anemia in chronic kidney disease (CKD) Qualifiers: Chronic kidney disease stage: on chronic dialysis Qualified Code(s): N18.6 - End stage renal disease; D63.1 - Anemia in chronic kidney disease; Z99.2 - Dependence on renal dialysis Is this a current diagnosis for this admission?: Yes Plan: Currently all stable (6) Antibiotic-resistant bacterial infection Is this a current diagnosis for this admission?: Yes (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 use: unspecified mcc insulin use status Diabetes mellitus complication status: with other specified complication Qualified Code(s): E11.69 - Type 2 diabetes mellitus with other specified complication Is this a current diagnosis for this admission?: Yes (12) ESRD on hemodialysis Is this a current diagnosis for this admission?: Yes (13) Elevated troponin I level Is this a current diagnosis for this admission?: Yes Plan: Follow-up with cardiology (14) Hypotension Qualifiers: Hypotension type: unspecified hypotension type Qualified Code(s): I95.9 - Hypotension, unspecified Is this a current diagnosis for this admission?: Yes Plan: Plan the dopamine drip - Time Time Spent with patient: 25-34 minutes Level of Care: IMCU Medications reviewed and adjusted accordingly: Yes Anticipated discharge: Other Within: Other - Plan Summary Plan Summary: Continues to current medications Discussed with the regarding the patient's current conditions
[2020-05-06 11:51] LABS: ALBUMIN 3.5 g/dL (3.5-5.0); ALKALINE PHOSPHATASE 91 U/L (38-126); ANION GAP 11 (5-19); ASPARTATE AMINO TRANSFERASE 22 U/L (17-59); BILIRUBIN,DIRECT 0.2 mg/dL (0.0-0.4); BILIRUBIN,TOTAL 0.3 mg/dL (0.2-1.3); BLOOD UREA NITROGEN 38 mg/dL (7-20); CALCIUM 9.5 mg/dL (8.4-10.2); CARBON DIOXIDE 21 mmol/L (22-30); CHLORIDE 105 mmol/L (98-107); GLUCOSE 83 mg/dL (75-110); POTASSIUM 4.5 mmol/L (3.6-5.0); TOTAL PROTEIN 8.5 g/dL (6.3-8.2)
[2020-05-06] MEDS: MIDODRINE HCL 5 MG TABLET PO SCH ×2 (14:02→17:14)
[2020-05-06] MEDS: LEVOFLOXACIN 250 MG TABLET PO SCH (17:14)
--- NOTE | 2020-05-06 20:09 | Progress Note ---
Provider Note Provider Note: Cardiology progress note by Dr. Samia Roper on 05/06/2020. Subjective: The patient's blood pressure is better. I have started him on my midodrine. We will see if we can wean the patient off the dopamine. He denies any chest pain or discomfort. He has no shortness of breath there is no PND or orthopnea. There is no ventricular arrhythmias seen on the monitor. The patient's heart rate at times dips into the 40s. The patient states he has a history of sleep apnea and uses by CPAP at home. He is not sure about the settings of the CPAP. He states that his knows the settings. We will asked the as to the settings and see if we can place the patient on BiPAP or CPAP. In view of the patient's hypotension we will get random cortisol and serum a.m. cortisol levels. PHYSICAL EXAMINATION: The patient is a frail build and appears to be chronically ill and malnourished. Selected Entries 05/06/20 13:00 Temperature 98.4 F Temperature Oral Source Pulse Rate 58 L Heart Rate ( 67 Monitors) Respiratory 18 Rate Blood Pressure 121/63 [Right Upper Arm] Blood Pressure 82 Mean [Right Upper Arm] Blood Pressure Supine Position [Right Upper Arm] O2 Sat by Pulse 100 Oximetry Oxygen Delivery Room Air Method ( includes room air) HEAD: Is atraumatic normocephalic. EYES: Pupils equal round regular reactive light accommodation. Extraocular movements are normal. There is no conjunctival pallor. There is no scleral icterus. EARS: Tympanic membranes are intact. External auditory canals are clear. NOSE: There is no deviated nasal septum. There is no inflammation nasal mucous membrane. MOUTH: Mucous membranes of the mouth is dry. Tongue is very dry. There is no ulcers. There is no bleeding from gums. THROAT: There is no redness of the oropharynx there is no exudates. SKIN: There is no skin rashes. There is no petechia or ecchymosis. NECK: Is supple. There is no JVD. Carotids are equal there is no bruits. There is no lymphadenopathy. There is no axillary muscle respiration use. LUNGS: Is clear to auscultation percussion without any rhonchi rales or wheezing. HEART: S1-S2 is heard. There is no S3 gallop. There is no S4 gallop. There is systolic murmur left sternal border and the apex there is no rub. ABDOMEN: Is soft. Nontender there is no paraspinal megaly. Bowel sounds are well heard. EXTREMITIES: Femorals are diminished there is no femoral bruits. Leg pulses are diminished. There is no pedal edema. There is no DVT cellulitis. There is no calf tenderness. There is no cyanosis or clubbing HOMEBIRTH MIDWIFE: The patient is conscious awake alert oriented x3 with no focal deficits. PSYCHIATRIC: The patient appears to be slightly depressed. But his judgment and insight are intact. Chest X-Ray 05/04/20 16:40 IMPRESSION: Left pleural effusion with smaller right pleural effusion. Cannot exclude limited airspace disease in the right lower lobe, pneumonia versus atelectasis. Clinical data do not support pneumonia. Labs- All tests 24 hr 05/05/20 05/05/20 05/05/20 21:20 21:20 21:37 WBC RBC Hgb Hct MCV MCH MCHC RDW Plt Count Lymph % (Auto) [place] % (Auto) Eos % (Auto) Baso % (Auto) Absolute Neuts (auto) Absolute Lymphs (auto) Absolute Monos (auto) Absolute Eos (auto) Absolute Basos (auto) Seg Neutrophils % Sodium Potassium Chloride Carbon Dioxide Anion Gap BUN Creatinine Est GFR ( Amer) Est GFR (MDRD) Non-Af Glucose POC Glucose 78 Calcium Magnesium Total Bilirubin Direct Bilirubin Neonat Total Bilirubin Neonat Direct Bilirubin Neonat Indirect Bili AST ALT Alkaline Phosphatase Creatine Kinase 88 CK-MB (CK-2) 3.65 Troponin I 0.997 Total Protein Albumin Random Cortisol 05/06/20 05/06/20 05/06/20 04:26 04:26 04:26 WBC 5.7 RBC 3.61 L Hgb 11.5 L Hct 35.2 L MCV 97 MCH 31.9 MCHC 32.8 RDW 15.9 H Plt Count 210 Lymph % (Auto) 34.8 [place] % (Auto) 10.3 Eos % (Auto) 7.2 H Baso % (Auto) 0.5 Absolute Neuts (auto) 2.7 Absolute Lymphs (auto) 2.0 Absolute Monos (auto) 0.6 Absolute Eos (auto) 0.4 Absolute Basos (auto) 0.0 Seg Neutrophils % 47.2 Sodium 136.5 L Potassium 4.5 Chloride 105 Carbon Dioxide 21 L Anion Gap 11 BUN 38 H Creatinine 3.56 H Est GFR ( Amer) 21 L Est GFR (MDRD) Non-Af 17 L Glucose 83 POC Glucose Calcium 9.5 Magnesium 1.9 Total Bilirubin 0.3 Direct Bilirubin 0.2 Neonat Total Bilirubin Not Reportable Neonat Direct Bilirubin Not Reportable Neonat Indirect Bili Not Reportable AST 22 ALT < 4 Alkaline Phosphatase 91 Creatine Kinase CK-MB (CK-2) Troponin I Total Protein 8.5 H Albumin 3.5 Random Cortisol 05/06/20 05/06/20 05/06/20 04:26 06:54 16:05 WBC RBC Hgb Hct MCV MCH MCHC RDW Plt Count Lymph % (Auto) [place] % (Auto) Eos % (Auto) Baso % (Auto) Absolute Neuts (auto) Absolute Lymphs (auto) Absolute Monos (auto) Absolute Eos (auto) Absolute Basos (auto) Seg Neutrophils % Sodium Potassium Chloride Carbon Dioxide Anion Gap BUN Creatinine Est GFR ( Amer) Est GFR (MDRD) Non-Af Glucose POC Glucose 74 79 Calcium Magnesium Total Bilirubin Direct Bilirubin Neonat Total Bilirubin Neonat Direct Bilirubin Neonat Indirect Bili AST ALT Alkaline Phosphatase Creatine Kinase CK-MB (CK-2) Troponin I Total Protein Albumin Random Cortisol 12.60 IMPRESSION/RECOMMENDATION: 1. Elevated troponin I: This is secondary to supply demand mismatch due to severe dehydration and hypotension. No definite evidence of non-ST elevation GA. We will treat the underlying cause. The patient's troponin is trending down. 2. Hypotension: Due to severe dehydration. But need to assess for sepsis. The patient continues to be on Ancef as per ID recommendation. The patient is afebrile. The patient's blood pressure is slightly better on dopamine.. Will continue the patient's midodrine 3. Severe diarrhea: The patient C. difficile is positive. This is improving. Continue vancomycin. The patient claims no further episodes of diarrhea. There is no nausea vomiting. 4. Severe dehydration: . Will need to be cautious with fluid replacement since the patient has end-stage renal disease and is on hemodialysis. Will discuss with nephrology to see if the patient can have less amount of fluid pulled out when he has dialysis. 5. History of methicillin sensitive Staphylococcus aureus. patient on IV antibiotics, with p.o. vancomycin to help combat C. difficile colitis.. 6. Coronary artery disease history of coronary artery bypass graft surgery. No anginal symptoms. 7.Ischemic cardiomyopathy with moderately reduced LV ejection fraction of 40% to 45%. 8. History of Mobitz type I second-degree AV block. This is intermittent. With a baseline patient having significant first-degree AV block. No hemodynamic compromise. 9 prior history of cardiac arrest due to pulseless electrical activity: No recurrence. 10. History of sleep apnea on CPAP at home. Patient does not know the settings. He states his knows. We will asked the if she can give us the details so we can put him on CPAP. This is most likely the cause of the patient's heart rate going down into the 40s. 11. 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 12. Peripheral vascular disease: History of balloon angioplasty of right femoral artery. 13. History of end-stage renal disease on dialysis. Continue dialysis, but will discuss with nephrology to see if less amount of fluid can be removed. 14. Malnutrition Medications reviewed. Medications will be adjusted by me. Medical decision making is of high complexity. 40 minutes spent as patient more than 50% of time spent in direct patient care. Discussed with Dr. Girard. Will follow
[2020-05-07] MEDS ORDERED: HEPARIN SOD (PORCINE) 1,000 UNIT/ML 10 ML VIAL IV PRN (05:00)
[2020-05-07] MEDS: PANTOPRAZOLE SODIUM 40 MG TABLET.DR PO SCH ×2 (05:43→17:09)
[2020-05-07] MEDS: VANCOMYCIN HCL INJ 500 MG VIAL PO SCH ×4 (05:43→23:46)
[2020-05-07] MEDS: HEPARIN SOD (PORCINE) 5,000 UNIT/ML 1 ML VIAL SUBCUT SCH ×3 (05:44→22:48)
[2020-05-07 06:58] LABS: ABSOLUTE EOSINOPHILS # (AUTO) 0.3 10^3/uL (0.0-0.6); ABSOLUTE LYMPHOCYTES (AUTO) 2.1 10^3/uL (0.5-4.7); ABSOLUTE MONOCYTES (AUTO) 0.7 10^3/uL (0.1-1.4); ABSOLUTE NEUT (AUTO) 2.7 10^3/uL (1.7-8.2); BASOPHILS % (AUTO) 0.5 % (0-2); EOSINOPHILS % (AUTO) 5.6 % (0-6); LYMPHOCYTES % (AUTO) 35.9 % (13-45); MEAN CORPUSCULAR HEMOGLOBIN 31.5 pg (27.0-33.4); MEAN CORPUSCULAR HGB CONC 33.2 g/dL (32.0-36.0); MEAN CORPUSCULAR VOLUME 95 fl (80-97); MONOCYTES % (AUTO) 12.6 % (3-13); PLATELET COUNT 214 10^3/uL (150-450); RED BLOOD COUNT 3.48 10^6/uL (4.35-5.55); SEGMENTED NEUTROPHILS % (AUTO) 45.4 % (42-78); TOTAL CELLS COUNTED % (AUTO) 100 %; WHITE BLOOD COUNT 5.9 10^3/uL (4.0-10.5)
[2020-05-07 07:30] LABS: ANION GAP 11 (5-19); BLOOD UREA NITROGEN 56 mg/dL (7-20); CALCIUM 9.4 mg/dL (8.4-10.2); CARBON DIOXIDE 18 mmol/L (22-30); CHLORIDE 110 mmol/L (98-107); GLUCOSE 96 mg/dL (75-110); POTASSIUM 5.3 mmol/L (3.6-5.0)
[2020-05-07] MEDS ORDERED: ACETAMINOPHEN 325 MG TABLET PO PRN (07:33)
[2020-05-07] MEDS: INSULIN LISPRO 100 UNIT/ML 3 ML VIAL SUBCUT SCH ×4 (08:34→22:46)
--- NOTE | 2020-05-07 08:55 | RADIOLOGY REPORT (SQ) ---
EXAM DESCRIPTION: CT ABD/PELVIS NO ORAL OR IV IMAGES COMPLETED DATE/TIME: 05/07/2020 8:16 am REASON FOR STUDY: nausea/sepsis COMPARISON: CTs of the abdomen and pelvis without contrast from 04/26/2020, 04/11/2020 and 06/21/2018. TECHNIQUE: CT scan of the abdomen and pelvis performed without intravenous or oral contrast. Images reviewed with lung, soft tissue, and bone windows. Reconstructed coronal and sagittal MPR images revi ewed. All images stored on PACS. All CT scanners at this facility use dose modulation, iterative reconstruction, and/or weight based d osing when appropriate to reduce radiation dose to as low as reasonably achievable (ALARA). [facility]: Dose Right [facility]: CareDose [facility]: Dose Right [facility]: Teradose 4D [facility]: NetScaler LIMITATIONS: None. FINDINGS: LOWER CHEST: Refer to the separate report of the CT of the chest. NON-CONTRASTED LIVER, SPLEEN, ADRENALS: Evaluation is limited due to the absence of intravenous contr ast. There is no evidence of hepatic steatosis. The spleen is normal in size. PANCREAS: No acute gross abnormality of the pancreas. GALLBLADDER: No abnormality that is apparent on CT. RIGHT KIDNEY AND URETER: Evaluation is limited due to the absence of intravenous contrast. There is advanced renal atrophy. There are several caliceal calculi in the lower pole of the kidney that celia ure up to 6 cm in diameter. There is no associated hydronephrosis, hydroureter or ureterolithiasis. LEFT KIDNEY AND URETER: Evaluation is limited due to the absence of intravenous contrast. There are several caliceal calculi that measure up to 4 mm in diameter. There is no associated hydronephrosis, hydroureter or ureterolithiasis. AORTA AND RETROPERITONEUM: Extensive atherosclerotic calcification of the abdominopelvic vasculature indicative of underlying diabetes mellitus. There is no abdominal abdominal aortic aneurysm. There is no retroperitoneal adenopathy, hemorrhage or mass. BOWEL AND PERITONEAL CAVITY: There is no bowel obstruction, bowel wall thickening or pericolonic/ per ienteric inflammation. There is no mesenteric adenopathy, free intraperitoneal fluid or mesenteric/ omental inflammation. APPENDIX: Normal. PELVIS, BLADDER, AND ABDOMINAL WALL:The urinary bladder is contracted. The prostate gland measures 3 .8 cm in transverse diameter. There is no sizable abdominal wall hernia. BONES: There are wedge compression deformities of the superior endplates of the L5, L2 T12 and T11 ve rtebral bodies ; the fractures are new compared to 06/21/2018 but unchanged from 04/11/2020. The mixed sclerotic/ osteopenic appearance of the osseous structures is nonspecific and could in part represent renal osteodystrophy. OTHER: Anasarca and sarcopenia. There is a renal allograft in the right lower quadrant. IMPRESSION: No acute intra-abdominal abnormality. Other chronic or unchanged findings as detailed above. COMMENT: Quality ID # [id number]: Final reports with documentation of one or more dose reduction techniques (e.g., Automated exposure control, adjustment of the mA and/or kV according to patient size, use of iterative reconstruction technique) TECHNICAL DOCUMENTATION: JOB ID: [id number] 2010 [employer]- All Rights Reserved Reading location - IP/workstation name: LD
--- NOTE | 2020-05-07 08:58 | PDOC PROGRESS REPORT ---
Subjective Progress Note for:: 05/07/20 Subjective:: Patient is currently doing well Patient's denied any chest pain no short of breath No abdominal pain Patient's diarrhea is much improving only one episode Patient off the dopamine drip Reason For Visit: SOB Physical Exam Vital Signs: Temp Pulse Resp BP Pulse Ox 97.3 F 55 L 24 H 110/47 L 96 05/07/20 03:12 05/07/20 07:00 05/07/20 03:12 05/07/20 03:12 05/07/20 03:12 Intake & Output 05/06/20 05/07/20 05/08/20 06:59 06:59 06:59 Intake Total 221 337 Output Total 1 Balance 221 336 Weight 48.8 kg General appearance: PRESENT: no acute distress, well-developed, well-nourished Head exam: PRESENT: atraumatic, normocephalic Eye exam: PRESENT: conjunctiva pink, EOMI, PERRLA. ABSENT: scleral icterus Ear exam: PRESENT: normal external ear exam Mouth exam: PRESENT: moist, tongue midline Neck exam: PRESENT: full ROM. ABSENT: carotid bruit, JVD, lymphadenopathy, thyromegaly Cardiovascular exam: PRESENT: RRR. ABSENT: diastolic murmur, rubs, systolic murmur Pulses: PRESENT: normal dorsalis pedis pul, +2 pedal pulses bilateral Vascular exam: PRESENT: normal capillary refill GI/Abdominal exam: PRESENT: normal bowel sounds, soft. ABSENT: distended, guarding, mass, organolmegaly, rebound, tenderness Rectal exam: PRESENT: deferred Neurological exam: PRESENT: alert, awake, oriented to person, oriented to place, oriented to time, oriented to situation, CN II-XII grossly intact. ABSENT: motor sensory deficit Psychiatric exam: PRESENT: appropriate affect, normal mood. ABSENT: homicidal ideation, suicidal ideation Skin exam: PRESENT: dry, intact, warm. ABSENT: cyanosis, rash Results Laboratory Results: 05/07/20 06:16 05/07/20 06:16 05/06/20 05/07/20 05/07/20 04:26 06:16 06:16 WBC 5.9 RBC 3.48 L Hgb 11.0 L Hct 33.0 L MCV 95 MCH 31.5 MCHC 33.2 RDW 16.0 H Plt Count 214 Seg Neutrophils % 45.4 Sodium 136.5 L 139.0 Potassium 4.5 5.3 H Chloride 105 110 H Carbon Dioxide 21 L 18 L Anion Gap 11 11 BUN 38 H 56 H Creatinine 3.56 H 4.78 H Est GFR ( Amer) 21 L 15 L Glucose 83 96 Calcium 9.5 9.4 Magnesium 1.9 Total Bilirubin 0.3 AST 22 Alkaline Phosphatase 91 Total Protein 8.5 H Albumin 3.5 05/04/20 05/04/20 05/04/20 19:00 19:00 20:44 Creatine Kinase 56 CK-MB (CK-2) Cancelled 3.99 Troponin I Cancelled 0.146 05/05/20 05/05/20 05/05/20 04:54 04:54 11:13 Creatine Kinase 103 Cancelled CK-MB (CK-2) 3.59 Troponin I 0.905 05/05/20 05/05/20 05/05/20 11:13 12:11 12:11 Creatine Kinase 102 CK-MB (CK-2) Cancelled 3.92 Troponin I Cancelled 1.140 05/05/20 05/05/20 05/05/20 14:50 14:50 21:20 Creatine Kinase 85 88 CK-MB (CK-2) 4.08 Troponin I 1.130 05/05/20 21:20 Creatine Kinase CK-MB (CK-2) 3.65 Troponin I 0.997 Impressions: Chest X-Ray 05/04/20 16:40 IMPRESSION: Left pleural effusion with smaller right pleural effusion. Cannot exclude limited airspace disease in the right lower lobe, pneumonia versus atelectasis. Abdomen/Pelvis CT 05/07/20 08:00 IMPRESSION: No acute intra-abdominal abnormality. Other chronic or unchanged findings as detailed above. Assessment & Plan - Diagnosis (1) C. difficile colitis Is this a current diagnosis for this admission?: Yes Plan: Continues p.o. vancomycin (2) Pneumonia Qualifiers: Pneumonia type: due to unspecified organism Laterality: right Lung location: lower lobe of lung Qualified Code(s): J18.9 - Pneumonia, unspecified organism Is this a current diagnosis for this admission?: Yes Plan: Continues p.o. Levaquin (3) AV block, 2nd degree Is this a current diagnosis for this admission?: Yes (4) Acute exacerbation of CHF (congestive heart failure) Qualifiers: Heart failure type: diastolic Qualified Code(s): I50.33 - Acute on chronic diastolic (congestive) heart failure Is this a current diagnosis for this admission?: Yes Plan: Continues with hemodialysis (5) Anemia in chronic kidney disease (CKD) Qualifiers: Chronic kidney disease stage: on chronic dialysis Qualified Code(s): N18.6 - End stage renal disease; D63.1 - Anemia in chronic kidney disease; Z99.2 - Dependence on renal dialysis Is this a current diagnosis for this admission?: Yes Plan: Currently all stable (6) Antibiotic-resistant bacterial infection Is this a current diagnosis for this admission?: Yes (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 Tavares (13) Elevated troponin I level Is this a current diagnosis for this admission?: Yes Plan: Follow-up with cardiology (14) Hypotension Qualifiers: Hypotension type: unspecified hypotension type Qualified Code(s): I95.9 - Hypotension, unspecified Is this a current diagnosis for this admission?: Yes Plan: Currently all better - Time Time Spent with patient: 15-24 minutes Level of Care: IMCU Medications reviewed and adjusted accordingly: Yes Anticipated discharge: Home with Homehealth Within: Other - Plan Summary Plan Summary: Continues the current medications discussed with Dr. Tavares and Dr. Dumont
--- NOTE | 2020-05-07 09:54 | RADIOLOGY REPORT (SQ) ---
EXAM DESCRIPTION: CT CHEST WITHOUT IMAGES COMPLETED DATE/TIME: 05/07/2020 7:39 am REASON FOR STUDY: plural effusion COMPARISON: CT of the chest without contrast from 04/11/2020. TECHNIQUE: CT scan performed of the chest without intravenous contrast. Images reviewed with lung, soft tissue and bone windows. Reconstructed coronal and sagittal MPR images reviewed. All images st ored on PACS. All CT scanners at this facility use dose modulation, iterative reconstruction, and/or weight based d osing when appropriate to reduce radiation dose to as low as reasonably achievable (ALARA). [facility]: Dose Right [facility]: CareDose [facility]: Dose Right [facility]: Teradose 4D [facility]: Smart Heroic RADIATION DOSE: CT Rad equipment meets quality standard of care and radiation dose reduction techniq ues were employed. CTDIvol: 4.5 - 5.6 mGy. DLP: 428 mGy-cm. LIMITATIONS: No technical limitations. FINDINGS: LUNGS AND PLEURA: The trachea and main bronchi are patent. There is re- demonstration of a moderately-sized right pleural effusion associated with areas of subsegmental atelectasis in the ri ght lower lobe and fluid that tracks into the oblique fissure. The size of the left pleural effusion associated with pleural thickening is unchanged. The areas of consolidation in the right left lower lobe and lingula are also unchanged. There is no acute consolidation, ground-glass opacification or pneumothorax. HILAR AND MEDIASTINAL STRUCTURES: Evaluation of the cassidy is limited due to the absence of intravenous contrast. There is no mediastinal adenopathy or mass. HEART AND VASCULAR STRUCTURES: Atherosclerotic calcification of the thoracic aorta, coronary arteries and mitral annulus. The heart is enlarged. There is no pericardial effusion P UPPER ABDOMEN: Refer to the separate report of the CT of the abdomen. THYROID AND OTHER SOFT TISSUES: Bilateral gynecomastia and mild anasarca. There is no adenopathy or mass. BONES: No acute findings. HARDWARE: Status post median sternotomy and CABG. The tip of the dialysis catheter terminates at the level of the cavoatrial junction. OTHER: No other findings. IMPRESSION: 1. Stable moderately-sized right pleural effusion associated with areas of subsegmental atelectasis in the right lower lobe and fluid that tracks into the oblique fissure. 2. Stable loculated left pleural effusions and consolidative opacities in the left lower lobe and li ngula. TECHNICAL DOCUMENTATION: JOB ID: [id number] Quality ID # [id number]: Final reports with documentation of one or more dose reduction techniques (e.g., Au tomated exposure control, adjustment of the mA and/or kV according to patient size, use of iterative reconstruction technique) 2010 [employer]- All Rights Reserved Reading location - IP/workstation name: [email or web address]
[2020-05-07] MEDS: LACTOBACILLUS ACIDOPHILUS 250 MG TAB PO SCH ×2 (09:59→17:09)
[2020-05-07] MEDS: MIDODRINE HCL 5 MG TABLET PO SCH ×3 (09:59→17:09)
--- NOTE | 2020-05-07 11:24 | PDOC PROGRESS REPORT ---
Subjective Progress Note for:: 05/07/20 Reason For Visit: This patient with a background of ESRD on dialysis and multiple other issues was recently admitted with C. difficile colitis and diarrhea and discharged on p.o. vancomycin was readmitted with persistent diarrhea and hypotension. Apparently undergoing dialysis at [facility] and removal of 1.5 L of fluid and he became hypotensive and was transferred last Thursday. Admits to the fact that patient did not have his p.o. vancomycin at home when he was discharged. However he has now obtained it and promises he will not miss any doses. He says his diarrhea is better. Currently undergoing dialysis without any issues. No history of any chest pain shortness of breath nausea vomiting. No history of any fever or chills. Labs and medications were reviewed. Dialysis orders were reviewed with the treating dialysis nurse. Physical Exam Vital Signs: Temp Pulse Resp BP Pulse Ox 97.2 F 56 L 15 128/74 H 94 05/07/20 09:55 05/07/20 09:55 05/07/20 09:55 05/07/20 09:55 05/07/20 09:55 Intake & Output 05/06/20 05/07/20 05/08/20 06:59 06:59 06:59 Intake Total 221 337 Output Total 1 Balance 221 336 Weight 48.8 kg General appearance: PRESENT: no acute distress Respiratory exam: PRESENT: clear to auscultation jolie, decreased breath sounds. ABSENT: crackles Cardiovascular exam: PRESENT: +S1, +S2 GI/Abdominal exam: PRESENT: normal bowel sounds, soft. ABSENT: organomegaly, tenderness Extremities exam: ABSENT: pedal edema Neurological exam: PRESENT: alert, awake, oriented to person, oriented to place Results Laboratory Results: 05/07/20 06:16 05/07/20 06:16 05/06/20 05/07/20 05/07/20 04:26 06:16 06:16 WBC 5.9 RBC 3.48 L Hgb 11.0 L Hct 33.0 L MCV 95 MCH 31.5 MCHC 33.2 RDW 16.0 H Plt Count 214 Seg Neutrophils % 45.4 Sodium 136.5 L 139.0 Potassium 4.5 5.3 H Chloride 105 110 H Carbon Dioxide 21 L 18 L Anion Gap 11 11 BUN 38 H 56 H Creatinine 3.56 H 4.78 H Est GFR ( Amer) 21 L 15 L Glucose 83 96 Calcium 9.5 9.4 Magnesium 1.9 Total Bilirubin 0.3 AST 22 Alkaline Phosphatase 91 Total Protein 8.5 H Albumin 3.5 05/04/20 05/04/20 05/04/20 19:00 19:00 20:44 Creatine Kinase 56 CK-MB (CK-2) Cancelled 3.99 Troponin I Cancelled 0.146 05/05/20 05/05/20 05/05/20 04:54 04:54 11:13 Creatine Kinase 103 Cancelled CK-MB (CK-2) 3.59 Troponin I 0.905 05/05/20 05/05/20 05/05/20 11:13 12:11 12:11 Creatine Kinase 102 CK-MB (CK-2) Cancelled 3.92 Troponin I Cancelled 1.140 05/05/20 05/05/20 05/05/20 14:50 14:50 21:20 Creatine Kinase 85 88 CK-MB (CK-2) 4.08 Troponin I 1.130 05/05/20 21:20 Creatine Kinase CK-MB (CK-2) 3.65 Troponin I 0.997 Impressions: Chest X-Ray 05/04/20 16:40 IMPRESSION: Left pleural effusion with smaller right pleural effusion. Cannot exclude limited airspace disease in the right lower lobe, pneumonia versus atelectasis. Chest CT 05/07/20 07:30 IMPRESSION: 1. Stable moderately-sized right pleural effusion associated with areas of subsegmental atelectasis in the right lower lobe and fluid that tracks into the oblique fissure. 2. Stable loculated left pleural effusions and consolidative opacities in the left lower lobe and lingula. Abdomen/Pelvis CT 05/07/20 08:00 IMPRESSION: No acute intra-abdominal abnormality. Other chronic or unchanged findings as detailed above. Assessment & Plan - Diagnosis (1) C. difficile colitis Is this a current diagnosis for this admission?: Yes Plan: Patient now back on p.o. 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 (2) Hypotension Qualifiers: Hypotension type: unspecified hypotension type Qualified Code(s): I95.9 - Hypotension, unspecified Is this a current diagnosis for this admission?: Yes Plan: A combination of volume depletion from C. difficile colitis/diarrhea and fluid removal on dialysis. Will readjust fluid removal on dialysis as an outpatient. Currently blood pressure stable. (3) ESRD on hemodialysis Is this a current diagnosis for this admission?: Yes Plan: Patient currently undergoing dialysis without any issues. Vital signs are stable. Plan to remove less than half a liter of fluid as tolerated. Discussed orders with the treating dialysis nurse. Dialysis being supervised.
[2020-05-07 12:33] LABS: INTERNATIONAL RATION (INR) 1.05; PARTIAL THROMBOPLASTIN TIME 31.7 SEC (23.5-35.8); PROTHROMBIN TIME 13.7 SEC (11.4-15.4)
--- NOTE | 2020-05-07 15:41 | RADIOLOGY REPORT (SQ) ---
EXAM DESCRIPTION: U/S THORACENTESIS WITH IMAGING IMAGES COMPLETED DATE/TIME: 05/07/2020 3:32 pm REASON FOR STUDY: plural effusion COMPARISON: None. RADIATION DOSE: None LIMITATIONS: None. PROCEDURE: Procedure, risks, benefit, and alternative explained to patient who then gave written con sent. The posterior right chest wall was marked using ultrasound guidance. A time-out was called fo r correct marking verification. Chest prepped and draped using sterile technique. Local anesthesia a chieved using 7 ml of 1% lidocaine injection. A 6 Fr Safe-T- Centesis set was introduced into the [facility] pleural space. Fluid was aspirated. The catheter was removed and the entry site was covered wit h sterile bandage. No immediate complications noted. Images acquired during the procedure were stored on PACS. FINDINGS: ENTRY SITE: Posterior right chest. FLUID VOLUME: 600 mL. FLUID ANALYSIS: Clear straw-colored fluid. OTHER: Fluid sent to the lab for testing. IMPRESSION: SUCCESSFUL THORACENTESIS USING ULTRASOUND GUIDANCE. COMMENT: Patient medication list reviewed: Yes- Quality ID# [id number]:Eligible professional attests to doc umenting in the medical record they obtained, updated, or reviewed the patient's current medications. TECHNICAL DOCUMENTATION: JOB ID: [id number] 2010 [employer]- All Rights Reserved Reading location - IP/workstation name: [email or web address] [id number]
--- NOTE | 2020-05-07 15:55 | RADIOLOGY REPORT (SQ) ---
EXAM DESCRIPTION: CHEST SINGLE VIEW IMAGES COMPLETED DATE/TIME: 05/07/2020 3:28 pm REASON FOR STUDY: S/P RT THORA COMPARISON: 05/04/2020 EXAM PARAMETERS: NUMBER OF VIEWS: One view. TECHNIQUE: Single frontal radiographic view of the chest acquired. RADIATION DOSE: NA LIMITATIONS: None. FINDINGS: LUNGS AND PLEURA: Aeration on the right is improved. No pneumothorax following thoracente sis. Persistent small to moderate left-sided pleural effusion. Dialysis catheter remains in place. MEDIASTINUM AND HILAR STRUCTURES: No masses. Contour normal. HEART AND VASCULAR STRUCTURES: Unchanged. BONES: No acute findings. HARDWARE: Sternotomy wires are in place. OTHER: No other significant finding. IMPRESSION: No pneumothorax following right-sided thoracentesis. Improved aeration on the right as well. Persistent left pleural effusion with underlying left basilar atelectasis or pneumonia. TECHNICAL DOCUMENTATION: JOB ID: [id number] 2010 [employer]- All Rights Reserved Reading location - IP/workstation name: [email or web address]
[2020-05-07 17:05] LABS: FLUID APPEARANCE SLIGHTLY HAZY; FLUID COLOR YELLOW; FLUID TYPE PLEURAL; FLUID VISCOSITY SLIGHTLY VISCOUS
[2020-05-07] MEDS: LEVOFLOXACIN 250 MG TABLET PO SCH (17:09)
--- NOTE | 2020-05-07 19:14 | RADIOLOGY REPORT (SQ) ---
EXAM DESCRIPTION: CHEST SINGLE VIEW IMAGES COMPLETED DATE/TIME: 05/07/2020 4:38 pm REASON FOR STUDY: 2 HOURS S/P RT THORA COMPARISON: Same date at 1527 hours. EXAM PARAMETERS: NUMBER OF VIEWS: One view. TECHNIQUE: Single frontal radiographic view of the chest acquired. RADIATION DOSE: NA LIMITATIONS: None. FINDINGS: LUNGS AND PLEURA: There is a tiny right apical pneumothorax. Trace residual right pleural effusion. Small left effusion. No focal consolidation. MEDIASTINUM AND HILAR STRUCTURES: No masses. Contour normal. HEART AND VASCULAR STRUCTURES: Postoperative changes of prior CABG. Pulmonary vascular congestion. BONES: No acute findings. HARDWARE: None in the chest. OTHER: No other significant finding. IMPRESSION: Tiny right apical pneumothorax. Small left effusion. TECHNICAL DOCUMENTATION: JOB ID: [id number] 2010 [employer]- All Rights Reserved Reading location - IP/workstation name: [email or web address]
--- NOTE | 2020-05-07 21:48 | Progress Note ---
Provider Note Provider Note: CARDIOLOGY PROGRESS NOTE by Dr. Oscar Olivarez on 05/07/2020. SUBJECTIVE: The patient had right thoracentesis and had pleural fluid removed. He states there is not much difference in his breathing. Says usually it takes him time for him to feel better. He has no arrhythmias. There is no chest pain or discomfort. He denies shortness of breath there is no PND orthopnea or leg edema. He did have dialysis today. Await pleural fluid analysis. PHYSICAL EXAMINATION: The patient is a frail build and appears to be chronically ill and malnourished. Selected Entries 05/07/20 15:51 Temperature 97.5 F Temperature Oral Source Pulse Rate 67 Respiratory 16 Rate Blood Pressure 113/47 L Blood Pressure 69 Mean BP Location Left Arm BP Position Supine O2 Sat by Pulse 99 Oximetry Oxygen Delivery Room Air Method HEAD: Is atraumatic normocephalic. EYES: Pupils equal round regular reactive light accommodation. Extraocular movements are normal. There is no conjunctival pallor. There is no scleral icterus. EARS: Tympanic membranes are intact. External auditory canals are clear. NOSE: There is no deviated nasal septum. There is no inflammation nasal mucous membrane. MOUTH: Mucous membranes of the mouth is dry. Tongue is very dry. There is no ulcers. There is no bleeding from gums. THROAT: There is no redness of the oropharynx there is no exudates. SKIN: There is no skin rashes. There is no petechia or ecchymosis. NECK: Is supple. There is no JVD. Carotids are equal there is no bruits. There is no lymphadenopathy. There is no axillary muscle respiration use. LUNGS: Is clear to auscultation percussion without any rhonchi rales or wheezing. HEART: S1-S2 is heard. There is no S3 gallop. There is no S4 gallop. There is systolic murmur left sternal border and the apex there is no rub. ABDOMEN: Is soft. Nontender there is no paraspinal megaly. Bowel sounds are well heard. EXTREMITIES: Femorals are diminished there is no femoral bruits. Leg pulses are diminished. There is no pedal edema. There is no DVT cellulitis. There is no calf tenderness. There is no cyanosis or clubbing [employer] HELPER: The patient is conscious awake alert oriented x3 with no focal deficits. PSYCHIATRIC: The patient appears to be slightly depressed. But his judgment and insight are intact. Chest X-Ray 05/04/20 16:40 IMPRESSION: Left pleural effusion with smaller right pleural effusion. Cannot exclude limited airspace disease in the right lower lobe, pneumonia versus atelectasis. Thoracentesis Ultrasound 05/07/20 00:00 IMPRESSION: SUCCESSFUL THORACENTESIS USING ULTRASOUND GUIDANCE. Chest CT 05/07/20 07:30 IMPRESSION: 1. Stable moderately-sized right pleural effusion associated with areas of subsegmental atelectasis in the right lower lobe and fluid that tracks into the oblique fissure. 2. Stable loculated left pleural effusions and consolidative opacities in the left lower lobe and lingula. Abdomen/Pelvis CT 05/07/20 08:00 IMPRESSION: No acute intra-abdominal abnormality. Other chronic or unchanged findings as detailed above. Chest X-Ray 05/07/20 15:15 IMPRESSION: No pneumothorax following right-sided thoracentesis. Improved aeration on the right as well. Persistent left pleural effusion with underlying left basilar atelectasis or pneumonia. Chest X-Ray 05/07/20 17:15 IMPRESSION: Tiny right apical pneumothorax. Small left effusion. Labs- All tests 24 hr 05/07/20 05/07/20 05/07/20 06:16 06:16 06:16 WBC 5.9 RBC 3.48 L Hgb 11.0 L Hct 33.0 L MCV 95 MCH 31.5 MCHC 33.2 RDW 16.0 H Plt Count 214 Lymph % (Auto) 35.9 [place] % (Auto) 12.6 Eos % (Auto) 5.6 Baso % (Auto) 0.5 Absolute Neuts (auto) 2.7 Absolute Lymphs (auto) 2.1 Absolute Monos (auto) 0.7 Absolute Eos (auto) 0.3 Absolute Basos (auto) 0.0 Seg Neutrophils % 45.4 PT INR INR (Anticoag Therapy) APTT Sodium 139.0 Potassium 5.3 H Chloride 110 H Carbon Dioxide 18 L Anion Gap 11 BUN 56 H Creatinine 4.78 H Est GFR ( Amer) 15 L Est GFR (MDRD) Non-Af 12 L Glucose 96 POC Glucose Calcium 9.4 Magnesium 1.9 Lactate Dehydrogenase Total Protein Cortisol AM Sample 12.10 Fluid Type Fluid Source Fluid Color Fluid Appearance Fluid Viscosity Fluid WBC Fluid RBC Fluid Seg Neutrophils Fluid Lymphocytes Fluid Monocytes Fluid Eosinophils Fluid Basophils 05/07/20 05/07/20 05/07/20 07:50 10:35 10:35 WBC RBC Hgb Hct MCV MCH MCHC RDW Plt Count Lymph % (Auto) [place] % (Auto) Eos % (Auto) Baso % (Auto) Absolute Neuts (auto) Absolute Lymphs (auto) Absolute Monos (auto) Absolute Eos (auto) Absolute Basos (auto) Seg Neutrophils % PT Cancelled INR Cancelled INR (Anticoag Therapy) Cancelled APTT Cancelled Sodium Potassium Chloride Carbon Dioxide Anion Gap BUN Creatinine Est GFR ( Amer) Est GFR (MDRD) Non-Af Glucose POC Glucose 73 Calcium Magnesium Lactate Dehydrogenase Total Protein 7.9 Cortisol AM Sample Fluid Type Fluid Source Fluid Color Fluid Appearance Fluid Viscosity Fluid WBC Fluid RBC Fluid Seg Neutrophils Fluid Lymphocytes Fluid Monocytes Fluid Eosinophils Fluid Basophils 05/07/20 05/07/20 05/07/20 10:35 12:15 15:05 WBC RBC Hgb Hct MCV MCH MCHC RDW Plt Count Lymph % (Auto) [place] % (Auto) Eos % (Auto) Baso % (Auto) Absolute Neuts (auto) Absolute Lymphs (auto) Absolute Monos (auto) Absolute Eos (auto) Absolute Basos (auto) Seg Neutrophils % PT 13.7 INR 1.05 INR (Anticoag Therapy) APTT 31.7 Sodium Potassium Chloride Carbon Dioxide Anion Gap BUN Creatinine Est GFR ( Amer) Est GFR (MDRD) Non-Af Glucose POC Glucose Calcium Magnesium Lactate Dehydrogenase 149 Total Protein Cortisol AM Sample Fluid Type PLEURAL Fluid Source ABDOMEN Fluid Color YELLOW Fluid Appearance SLIGHTLY HAZY Fluid Viscosity SLIGHTLY VISCOUS Fluid WBC 89 Fluid RBC 242 Fluid Seg Neutrophils 5 Fluid Lymphocytes 94 Fluid Monocytes 0 Fluid Eosinophils 1 Fluid Basophils 0 05/07/20 05/07/20 15:53 22:17 WBC RBC Hgb Hct MCV MCH MCHC RDW Plt Count Lymph % (Auto) [place] % (Auto) Eos % (Auto) Baso % (Auto) Absolute Neuts (auto) Absolute Lymphs (auto) Absolute Monos (auto) Absolute Eos (auto) Absolute Basos (auto) Seg Neutrophils % PT INR INR (Anticoag Therapy) APTT Sodium Potassium Chloride Carbon Dioxide Anion Gap BUN Creatinine Est GFR ( Amer) Est GFR (MDRD) Non-Af Glucose POC Glucose 82 92 Calcium Magnesium Lactate Dehydrogenase Total Protein Cortisol AM Sample Fluid Type Fluid Source Fluid Color Fluid Appearance Fluid Viscosity Fluid WBC Fluid RBC Fluid Seg Neutrophils Fluid Lymphocytes Fluid Monocytes Fluid Eosinophils Fluid Basophils IMPRESSION/RECOMMENDATION: 1. Bilateral pleural effusion status post right thoracentesis. Await pleural fluid analysis. 2. Hypotension: Due to severe dehydration. But need to assess for sepsis. The patient continues to be on Ancef as per ID recommendation. The patient is afebrile. The patient's blood pressure is slightly better, and he is off dopamine.. Will continue the patient's midodrine 3. Severe diarrhea: The patient C. difficile is positive. This is improving. Continue vancomycin. The patient claims no further episodes of diarrhea. There is no nausea vomiting. 4. Severe dehydration: . Will need to be cautious with fluid replacement since the patient has end-stage renal disease and is on hemodialysis. Will discuss with nephrology to see if the patient can have less amount of fluid pulled out when he has dialysis. 5. History of methicillin sensitive Staphylococcus aureus. patient on IV antibiotics, with p.o. vancomycin to help combat C. difficile colitis.. 6. Coronary artery disease history of coronary artery bypass graft surgery. No anginal symptoms. 7.Ischemic cardiomyopathy with moderately reduced LV ejection fraction of 40% to 45%. 8. History of Mobitz type I second-degree AV block. This is intermittent. With a baseline patient having significant first-degree AV block. No hemodynamic compromise. 9 . Elevated troponin I: This is secondary to supply demand mismatch due to severe dehydration and hypotension. No definite evidence of non-ST elevation SC. We will treat the underlying cause. The patient's troponin is trending down. 10. Prior history of cardiac arrest due to pulseless electrical activity: No recurrence. 11. History of sleep apnea on CPAP at home. Patient does not know the settings. He states his knows. We will asked the if she can give us the details so we can put him on CPAP. This is most likely the cause of the patient's heart rate going down into the 40s. 12. 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 13. Peripheral vascular disease: History of balloon angioplasty of right femoral artery. 14. History of end-stage renal disease on dialysis. Continue dialysis, but will discuss with nephrology to see if less amount of fluid can be removed. 15. Malnutrition Medications reviewed. Medicationn regimen and management plan discussed with attending provider on the case.. Medical decision making is of moderate complexity. 40 minutes spent as patient more than 50% of time spent in direct patient care. Discussed with Dr. Girard. Will follow
--- NOTE | 2020-05-08 00:01 | Progress Note ---
Provider Note Provider Note: [facility] Telephone Advice Consultation Chart reviewed. Patient is a 64-year-old man known to our service due to prev ious admission earlier in April. He has ESRD on HD, failed renal transplant, DM2, multiple episodes of CDI, CHF, CAD s/p CABG, RUDY, GERD. Patient was admitted to [facility] [facility] in March due to infected perm cath with MSSA for which he had the catheter removed and was recommended to complete 4 weeks of cefazolin. EOT is supposed to be 05/11/20 as he cleared the blood cultures in April 14. He was discharged from [facility] and was receiving HD. He started feeling sick during HD, he was also having diarrhea 4-6 episodes a day. He had fever and chills. He was taken to the ED. He was found with leukocytosis of 13k. C diff GDH is positive and PCR as well, but toxin assay was negative. A recommendation was given to continue vancomycin po until 05/11 that he completes therapy for complicated MSSA bacteremia. He was discharged home on 04/30 and he was not able to fill the prescription for vancomycin. Diarrhea has worsened and he was admitted with hypotension. Chest imaging also demonstrating a right pleural effusion for which he had a thoracentesis today. Pleural fluid has only 89 WBC, rest of the fluid analysis is pending. He has been on levofloxacin for possible pneumonia. ID consulted for recommendations. PMH: ESRD on HD CDI CAD RUDY DM2 GERD PSH: CABG Kidney transplant AVF Allergies: sulfamethoxazole [From Bactrim] Allergy (Verified 04/25/20 19:00) Medications: Albuterol Sulfate [Albuterol Sulfate Hfa] 2 puff IH Q4HP PRN 04/12/20 Bimatoprost [Lumigan 0.01% Oph Soln 2.5 ml/Bottle] 1 drop OU QHS 04/12/20 Parenteral Amino Acid 15% No.5 [Clinisol] 0 units IV ASDIR PRN 05/07/20 Vital Signs: Temp Pulse Resp BP Pulse Ox 97.5 F 67 16 113/47 L 99 05/07/20 15:51 05/07/20 15:51 05/07/20 15:51 05/07/20 15:51 05/07/20 15:51 Intake & Output 05/06/20 05/07/20 05/08/20 06:59 06:59 06:59 Intake Total 221 337 840 Output Total 1 1200 Balance 221 336 -360 Weight 48.8 kg Weight/Height Weight 48.8 kg Height 5 ft 7 in Laboratories: 05/07/20 06:16 05/07/20 06:16 MCV 95 fl (80-97) 05/07/20 06:16 MCH 31.5 pg (27.0-33.4) 05/07/20 06:16 MCHC 33.2 g/dL (32.0-36.0) 05/07/20 06:16 RDW 16.0 % (11.5-14.0) H 05/07/20 06:16 Seg Neutrophils % 45.4 % (42-78) 05/07/20 06:16 Chloride 110 mmol/L (98-107) H 05/07/20 06:16 Carbon Dioxide 18 mmol/L (22-30) L 05/07/20 06:16 Anion Gap 11 (5-19) 05/07/20 06:16 Est GFR ( Amer) 15 (>60) L 05/07/20 06:16 Glucose 96 mg/dL (75-110) 05/07/20 06:16 Lactic Acid 1.1 mmol/L (0.7-2.1) 05/05/20 01:21 Calcium 9.4 mg/dL (8.4-10.2) 05/07/20 06:16 Magnesium 1.9 mg/dL (1.6-2.3) 05/07/20 06:16 Total Bilirubin 0.3 mg/dL (0.2-1.3) 05/06/20 04:26 AST 22 U/L (17-59) 05/06/20 04:26 Alkaline Phosphatase 91 U/L (38-126) 05/06/20 04:26 Total Protein 7.9 g/dL (6.3-8.2) 05/07/20 10:35 Albumin 3.5 g/dL (3.5-5.0) 05/06/20 04:26 Fluid Type PLEURAL 05/07/20 15:05 Fluid Source ABDOMEN 05/07/20 15:05 Fluid Color YELLOW 05/07/20 15:05 Fluid Appearance SLIGHTLY HAZY 05/07/20 15:05 Fluid Viscosity SLIGHTLY VISCOUS 05/07/20 15:05 Fluid WBC 89 /uL 05/07/20 15:05 Fluid RBC 242 /uL 05/07/20 15:05 05/04/20 05/04/20 05/04/20 19:00 19:00 20:44 Creatine Kinase 56 CK-MB (CK-2) Cancelled 3.99 Troponin I Cancelled 0.146 05/05/20 05/05/20 05/05/20 04:54 04:54 11:13 Creatine Kinase 103 Cancelled CK-MB (CK-2) 3.59 Troponin I 0.905 05/05/20 05/05/20 05/05/20 11:13 12:11 12:11 Creatine Kinase 102 CK-MB (CK-2) Cancelled 3.92 Troponin I Cancelled 1.140 05/05/20 05/05/20 05/05/20 14:50 14:50 21:20 Creatine Kinase 85 88 CK-MB (CK-2) 4.08 Troponin I 1.130 05/05/20 21:20 Creatine Kinase CK-MB (CK-2) 3.65 Troponin I 0.997 Microbiology: Blood cultures: 04/11 MSSA 04/14 Negative 05/04 NGTD Pleural Fluid Culture 05/04 NGTD Radiology: Thoracentesis Ultrasound 05/07/20 00:00 IMPRESSION: SUCCESSFUL THORACENTESIS USING ULTRASOUND GUIDANCE. Chest CT 05/07/20 07:30 IMPRESSION: 1. Stable moderately-sized right pleural effusion associated with areas of subsegmental atelectasis in the right lower lobe and fluid that tracks into the oblique fissure. 2. Stable loculated left pleural effusions and consolidative opacities in the left lower lobe and lingula. Abdomen/Pelvis CT 05/07/20 08:00 IMPRESSION: No acute intra-abdominal abnormality. Other chronic or unchanged findings as detailed above. Chest X-Ray 05/07/20 17:15 IMPRESSION: Tiny right apical pneumothorax. Small left effusion. Assessment and Recommendations: Patient evaluated due to MSSA bacteremia in the setting of ESRD on HD. He also has history of recurrent CDI and now diarrhea after starting cefazolin with HD. Per [facility] records, patient cleared the bacteremia on 04/14 for which EOT is supposed to be 05/11/20. Will recommend to continue cefazolin 2g/2g/3g until that date. In terms of CDI, he had worsening diarrhea as he stopped treatment. He is now improved as he is on vancomycin. He has 2 more doses of cefazolin for MSSA bacteremia and vancomycin po for 4 more days. Not clear if the pleural effusion is infected, but low suspicion. It seems that this is likely due to volume overload and there is no clear evidence of pneumonia. In the setting of worsening C diff infection, will recommend to discontinue levofloxacin as this may make the infection worse. Please call if questions. Elena Raygoza MD [facility] [phone]
[2020-05-08] MEDS: PANTOPRAZOLE SODIUM 40 MG TABLET.DR PO SCH (05:41)
[2020-05-08] MEDS: HEPARIN SOD (PORCINE) 5,000 UNIT/ML 1 ML VIAL SUBCUT SCH ×2 (05:41→13:19)
[2020-05-08] MEDS: VANCOMYCIN HCL INJ 500 MG VIAL PO SCH ×2 (05:41→13:19)
--- NOTE | 2020-05-08 10:02 | RADIOLOGY REPORT (SQ) ---
EXAM DESCRIPTION: CHEST 2 VIEWS IMAGES COMPLETED DATE/TIME: 05/08/2020 9:42 am REASON FOR STUDY: pnemothorax COMPARISON: AP view of the chest from 05/07/2020. EXAM PARAMETERS: NUMBER OF VIEWS: Two views. TECHNIQUE: An AP view of the chest was obtained. RADIATION DOSE: NA LIMITATIONS: None. FINDINGS: LUNGS AND PLEURA: The right costophrenic sulcus is blunted. The pleural and parenchymal o pacities in the inferior aspect of the left hemithorax that obscure the contour of the hemidiaphragm and blunt the costophrenic sulci are unchanged. There is re- demonstration of a right apical pneumot horax that is unchanged in size. MEDIASTINUM AND HILAR STRUCTURES: Stable mediastinal and hilar contours. HEART AND VASCULAR STRUCTURES: Stable enlarged cardiac silhouette. BONES: No acute findings. HARDWARE: Sternotomy wires, mediastinal surgical clips, coronary stents, and tunneled hemodialysis ca theter. OTHER: No other finding. IMPRESSION: 1. Unchanged right apical pneumothorax. 2. Stable pleural and parenchymal opacities in the inferior aspect the left hemithorax that could re present a combination of pleural fluid, atelectasis and/or pneumonia. TECHNICAL DOCUMENTATION: JOB ID: [id number] 2010 [employer]- All Rights Reserved Reading location - IP/workstation name: [email or web address]
--- NOTE | 2020-05-08 10:32 | PDOC PROGRESS REPORT ---
Subjective Progress Note for:: 05/08/20 Subjective:: Patient is currently doing well Since denied any chest pain no short of breath Patient have a thoracocentesis done yesterday 600 cc of the fluid removed no sign of any exudate Most likely pleural effusions coming from the low albumin Patient's otherwise have a small apical pneumothorax patient's notable distressed discussed with the surgeons he will evaluate the patient's most likely nothing needs to be do Reason For Visit: SOB Physical Exam Vital Signs: Temp Pulse Resp BP Pulse Ox 98.4 F 88 16 120/68 99 05/08/20 08:00 05/08/20 08:00 05/08/20 08:00 05/08/20 08:00 05/08/20 08:00 Intake & Output 05/07/20 05/08/20 05/09/20 06:59 06:59 06:59 Intake Total 337 840 Output Total 1 1200 Balance 336 -360 Weight 48.8 kg 48.4 kg General appearance: PRESENT: no acute distress, well-developed, well-nourished Head exam: PRESENT: atraumatic, normocephalic Eye exam: PRESENT: conjunctiva pink, EOMI, PERRLA. ABSENT: scleral icterus Ear exam: PRESENT: normal external ear exam Mouth exam: PRESENT: moist, tongue midline Neck exam: PRESENT: full ROM. ABSENT: carotid bruit, JVD, lymphadenopathy, thyromegaly Respiratory exam: PRESENT: clear to auscultation jolie Cardiovascular exam: PRESENT: RRR. ABSENT: diastolic murmur, rubs, systolic murmur Pulses: PRESENT: normal dorsalis pedis pul, +2 pedal pulses bilateral Vascular exam: PRESENT: normal capillary refill GI/Abdominal exam: PRESENT: normal bowel sounds, soft. ABSENT: distended, guarding, mass, organolmegaly, rebound, tenderness Rectal exam: PRESENT: deferred Neurological exam: PRESENT: alert, awake, oriented to person, oriented to place, oriented to time, oriented to situation, CN II-XII grossly intact. ABSENT: motor sensory deficit Psychiatric exam: PRESENT: appropriate affect, normal mood. ABSENT: homicidal ideation, suicidal ideation Skin exam: PRESENT: dry, intact, warm. ABSENT: cyanosis, rash Results Laboratory Results: 05/07/20 06:16 05/07/20 06:16 05/07/20 05/07/20 10:35 15:05 Total Protein 7.9 Fluid Type PLEURAL Fluid Source ABDOMEN Fluid Color YELLOW Fluid Appearance SLIGHTLY HAZY Fluid Viscosity SLIGHTLY VISCOUS Fluid WBC 89 Fluid RBC 242 05/04/20 05/04/20 05/04/20 19:00 19:00 20:44 Creatine Kinase 56 CK-MB (CK-2) Cancelled 3.99 Troponin I Cancelled 0.146 05/05/20 05/05/20 05/05/20 04:54 04:54 11:13 Creatine Kinase 103 Cancelled CK-MB (CK-2) 3.59 Troponin I 0.905 05/05/20 05/05/20 05/05/20 11:13 12:11 12:11 Creatine Kinase 102 CK-MB (CK-2) Cancelled 3.92 Troponin I Cancelled 1.140 05/05/20 05/05/20 05/05/20 14:50 14:50 21:20 Creatine Kinase 85 88 CK-MB (CK-2) 4.08 Troponin I 1.130 05/05/20 21:20 Creatine Kinase CK-MB (CK-2) 3.65 Troponin I 0.997 Impressions: Thoracentesis Ultrasound 05/07/20 00:00 IMPRESSION: SUCCESSFUL THORACENTESIS USING ULTRASOUND GUIDANCE. Chest CT 05/07/20 07:30 IMPRESSION: 1. Stable moderately-sized right pleural effusion associated with areas of subsegmental atelectasis in the right lower lobe and fluid that tracks into the oblique fissure. 2. Stable loculated left pleural effusions and consolidative opacities in the left lower lobe and lingula. Abdomen/Pelvis CT 05/07/20 08:00 IMPRESSION: No acute intra-abdominal abnormality. Other chronic or unchanged findings as detailed above. Chest X-Ray 05/08/20 00:00 IMPRESSION: 1. Unchanged right apical pneumothorax. 2. Stable pleural and parenchymal opacities in the inferior aspect the left hemithorax that could represent a combination of pleural fluid, atelectasis and/or pneumonia. Assessment & Plan - Diagnosis (1) C. difficile colitis Is this a current diagnosis for this admission?: Yes Plan: Continues the p.o. vancomycin (2) Pneumonia Qualifiers: Pneumonia type: due to unspecified organism Laterality: right Lung location: lower lobe of lung Qualified Code(s): J18.9 - Pneumonia, unspecified organism Is this a current diagnosis for this admission?: Yes Plan: We will discontinues the Levaquin as per ID recommendations (3) AV block, 2nd degree Is this a current diagnosis for this admission?: Yes (4) Acute exacerbation of CHF (congestive heart failure) Qualifiers: Heart failure type: diastolic Qualified Code(s): I50.33 - Acute on chronic diastolic (congestive) heart failure Is this a current diagnosis for this admission?: Yes Plan: Continues with hemodialysis (5) Anemia in chronic kidney disease (CKD) Qualifiers: Chronic kidney disease stage: on chronic dialysis Qualified Code(s): N18.6 - End stage renal disease; D63.1 - Anemia in chronic kidney disease; Z99.2 - Dependence on renal dialysis Is this a current diagnosis for this admission?: Yes Plan: Currently all stable (6) Antibiotic-resistant bacterial infection Is this a current diagnosis for this admission?: Yes (7) Axonal GBS (Guillain-Cortland syndrome) Is this a current diagnosis for this admission?: Yes (8) Cardiac arrest Is this a current diagnosis for this admission?: No (9) Cerebrovascular disease Is this a current diagnosis for this admission?: No (10) Coronary artery disease Qualifiers: Coronary Disease-Associated Artery/Lesion type: unspecified vessel or lesion type [place] vs. transplanted heart: [place] heart Associated angina: angina presence unspecified Qualified Code(s): I25.10 - Atherosclerotic heart disease of [place] coronary artery without angina pectoris Is this a current diagnosis for this admission?: Yes (11) Diabetes mellitus, type II Qualifiers: Diabetes mellitus half-way insulin use: unspecified half-way insulin use status Diabetes mellitus complication status: with other specified complication Qualified Code(s): E11.69 - Type 2 diabetes mellitus with other specified complication Is this a current diagnosis for this admission?: Yes (12) ESRD on hemodialysis Is this a current diagnosis for this admission?: Yes (13) Elevated troponin I level Is this a current diagnosis for this admission?: Yes (14) Hypotension Qualifiers: Hypotension type: unspecified hypotension type Qualified Code(s): I95.9 - Hypotension, unspecified Is this a current diagnosis for this admission?: Yes (15) Pneumothorax Qualifiers: Encounter type: initial encounter Is this a current diagnosis for this admission?: Yes Plan: Continues to monitor repeat the chest x-ray tomorrow morning put a consult for surgery patient is currently not distressed - Time Time Spent with patient: 15-24 minutes Level of Care: IMCU Medications reviewed and adjusted accordingly: Yes Anticipated discharge: Home with Homehealth Within: within 24 hours - Plan Summary Plan Summary: Continues the current medications
[2020-05-08] MEDS: INSULIN LISPRO 100 UNIT/ML 3 ML VIAL SUBCUT SCH ×3 (10:42→16:30)
[2020-05-08] MEDS: MIDODRINE HCL 5 MG TABLET PO SCH ×2 (10:44→13:22)
[2020-05-08] MEDS: LACTOBACILLUS ACIDOPHILUS 250 MG TAB PO SCH (10:44)
[2020-05-08 15:02] VITALS: BP 124/68
[2020-05-08 15:13] LABS: FLUID SOURCE LUNG
--- NOTE | 2020-05-08 15:31 | RADIOLOGY REPORT (SQ) ---
EXAM DESCRIPTION: CHEST SINGLE VIEW IMAGES COMPLETED DATE/TIME: 05/08/2020 3:15 pm REASON FOR STUDY: eval ptx COMPARISON: 05/08/2020 EXAM PARAMETERS: NUMBER OF VIEWS: One view. TECHNIQUE: Single frontal radiographic view of the chest acquired. RADIATION DOSE: NA LIMITATIONS: None. FINDINGS: LUNGS AND PLEURA: There appears be a minimal residual right apical pneumothorax. Small le ft pleural effusion. Retrocardiac opacification on the left. Small right pleural effusion. MEDIASTINUM AND HILAR STRUCTURES: No masses. Contour normal. HEART AND VASCULAR STRUCTURES: Heart normal in size. Normal vasculature. BONES: No acute findings. HARDWARE: Sternotomy wires. OTHER: No other significant finding. IMPRESSION: Minimal residual right apical pneumothorax. Small left pleural effusion. Small right p leural effusion. Retrocardiac opacification on the left may suggest airspace disease, atelectasis ve rsus pneumonia. TECHNICAL DOCUMENTATION: JOB ID: [id number] 2010 [employer]- All Rights Reserved Reading location - IP/workstation name: [email or web address]
--- NOTE | 2020-05-08 15:39 | PDOC CONSULTATION ---
Consultation Consult Date: 05/08/20 Provider Consulted: SURGICAL SURGICALIST Consult reason:: Postprocedural right-sided pneumothorax History of Present Illness Admission Date/PCP: 05/04/20 20:39 KEEGAN MONTENEGRO MD History of Present Illness: KATHRYN HURLEY is a 64 year old male seen in consultation at the request of Dr. Montenegro. The patient has multiple medical comorbidities, including renal failure and congestive heart failure. The patient was admitted to the hospital for recurrent C. difficile infection, shortness of breath, and chronic renal insufficiency. The patient underwent right-sided thoracentesis yesterday via interventional radiology for a large right-sided pleural effusion. The patient was found to have a small pneumothorax on chest x-ray. Surgery has been consulted for management of the pneumothorax. Currently the patient denies chest pain, shortness of breath, fevers, chills, nausea, vomiting, dizziness, blurry vision. He reports feeling much better after his thoracentesis yesterday. Past Medical History Cardiac Medical History: Reports: Congestive Heart Failure, Coronary Artery Disease, Myocardial Infarction, Hyperlipidema Denies: Hypertension Pulmonary Medical History: Reports: Asthma, Bronchitis, Intubation, Pneumonia, Respiratory Failure, Sleep Apnea - On C Pap Denies: Chronic Obstructive Pulmonary Disease (COPD) Neurological Medical History: Denies: Seizures Endocrine Medical History: Reports: Diabetes Mellitus Type 1, Diabetes Mellitus Type 2 Renal/ Medical History: Reports: End Stage Renal Disease GI Medical History: Reports: Gastroesophageal Reflux Disease Musculoskeltal Medical History: Reports: Arthritis Psychiatric Medical History: Reports: Depression - anxiety Hematology: Denies: Anemia Infectious Medical History: Reports: Clostridium Difficile Past Surgical History Past Surgical History: Reports: Cardiac Catheterization, Coronary Artery Bypass Graft - Quadruple bypass 2007, Vascular Surgery - left AV fistual, Other - History peritoneal dialysis catheter placement and removal Social History Smoking Status: Former Smoker Last Time Smoked: 2006 Frequency of Alcohol Use: None Hx Recreational Drug Use: No Drugs: None Hx Prescription Drug Abuse: No Family History Family History: Reviewed & Not Pertinent, CAD Parental Family History Reviewed: Yes Children Family History Reviewed: Yes Sibling(s) Family History Reviewed.: Yes Medication/Allergy Home Medications: Albuterol Sulfate [Albuterol Sulfate Hfa] 2 puff IH Q4HP PRN 04/12/20 Bimatoprost [Lumigan 0.01% Oph Soln 2.5 ml/Bottle] 1 drop OU QHS 04/12/20 Pantoprazole Sodium [Protonix [address] Tablet] 40 mg PO DAILY #30 tablet.dr 04/30/20 Vancomycin HCl [Vancocin Inj 500 mg Vial] 125 mg PO Q6 #60 vial MDD filled 05/03 for 15 day supply 04/30/20 Parenteral Amino Acid 15% No.5 [Clinisol] 0 units IV ASDIR PRN 05/07/20 Midodrine HCl [Proamatine 5 mg Tablet] 5 mg PO TID #90 tablet 05/08/20 Allergies/Adverse Reactions: sulfamethoxazole [From Bactrim] Allergy (Verified 04/25/20 19:00) trimethoprim [From Bactrim] Allergy (Verified 04/25/20 19:00) Review of Systems Constitutional: ABSENT: chills, fatigue, fever(s), headache(s) Eyes: ABSENT: visual disturbances Ears: ABSENT: hearing changes Nose, Mouth, and Throat: ABSENT: sore throat Cardiovascular: ABSENT: chest pain, dyspnea on exertion Respiratory: ABSENT: cough, dyspnea Gastrointestinal: ABSENT: abdominal pain, bloating, melena, nausea, vomiting Genitourinary: ABSENT: dysuria Musculoskeletal: ABSENT: back pain Integumentary: ABSENT: pruritus, rash Neurological: ABSENT: confusion, convulsions, dizziness Psychiatric: ABSENT: anxiety, depression Endocrine: ABSENT: cold intolerance, heat intolerance Hematologic/Lymphatic: ABSENT: easy bleeding, easy bruising Physical Exam Vital Signs: Temp Pulse Resp BP Pulse Ox 98.1 F 74 16 124/68 100 05/08/20 14:59 05/08/20 14:59 05/08/20 14:59 05/08/20 14:59 05/08/20 14:59 Intake & Output 05/07/20 05/08/20 05/09/20 06:59 06:59 06:59 Intake Total 337 840 240 Output Total 1 1200 Balance 336 -360 240 Weight 48.8 kg 48.4 kg General appearance: PRESENT: no acute distress, cooperative Head exam: PRESENT: atraumatic, normocephalic Eye exam: ABSENT: scleral icterus Mouth exam: PRESENT: moist, neck supple Neck exam: ABSENT: meningismus, tenderness, thyromegaly, tracheal deviation Respiratory exam: PRESENT: unlabored. ABSENT: tachypnea, wheezes Cardiovascular exam: ABSENT: tachycardia Pulses: PRESENT: normal radial pulses Vascular exam: PRESENT: normal capillary refill GI/Abdominal exam: PRESENT: soft. ABSENT: distended, firm, guarding, rigid, tenderness Rectal exam: PRESENT: deferred Extremities exam: ABSENT: clubbing Musculoskeletal exam: ABSENT: deformity Neurological exam: PRESENT: alert, awake, oriented to person, oriented to place, oriented to time, oriented to situation Psychiatric exam: ABSENT: agitated, anxious, depressed Focused psych exam: ABSENT: delusional Skin exam: ABSENT: cyanosis, erythema, jaundice Results Laboratory Results: 05/07/20 06:16 05/07/20 06:16 05/07/20 15:05 Fluid Type PLEURAL Fluid Source LUNG Fluid Color YELLOW Fluid Appearance SLIGHTLY HAZY Fluid Viscosity SLIGHTLY VISCOUS Fluid WBC 89 Fluid RBC 242 05/04/20 05/04/20 05/04/20 19:00 19:00 20:44 Creatine Kinase 56 CK-MB (CK-2) Cancelled 3.99 Troponin I Cancelled 0.146 05/05/20 05/05/20 05/05/20 04:54 04:54 11:13 Creatine Kinase 103 Cancelled CK-MB (CK-2) 3.59 Troponin I 0.905 05/05/20 05/05/20 05/05/20 11:13 12:11 12:11 Creatine Kinase 102 CK-MB (CK-2) Cancelled 3.92 Troponin I Cancelled 1.140 05/05/20 05/05/20 05/05/20 14:50 14:50 21:20 Creatine Kinase 85 88 CK-MB (CK-2) 4.08 Troponin I 1.130 05/05/20 21:20 Creatine Kinase CK-MB (CK-2) 3.65 Troponin I 0.997 Impressions: Thoracentesis Ultrasound 05/07/20 00:00 IMPRESSION: SUCCESSFUL THORACENTESIS USING ULTRASOUND GUIDANCE. Chest CT 05/07/20 07:30 IMPRESSION: 1. Stable moderately-sized right pleural effusion associated with areas of subsegmental atelectasis in the right lower lobe and fluid that tracks into the oblique fissure. 2. Stable loculated left pleural effusions and consolidative opacities in the left lower lobe and lingula. Abdomen/Pelvis CT 05/07/20 08:00 IMPRESSION: No acute intra-abdominal abnormality. Other chronic or unchanged findings as detailed above. Assessment & Plan - Diagnosis (1) Pneumothorax, right Is this a current diagnosis for this admission?: Yes - Plan Summary Plan Summary: This is a 64-year-old male with a very small right-sided pneumothorax after a thoracentesis. The pneumothorax appears to be stable over the last 12 hours. The patient is asymptomatic. I will repeat a chest x-ray this afternoon. If the afternoon chest x-ray stable, the patient will require no further intervention. As long as stability is demonstrated, he may be discharged home without further work-up. I have encouraged the patient to monitor for chest pain or shortness of breath. If he experiences any of these, he is to contact either myself or Dr. Montenegro immediately. The patient has expressed good understanding of this. Update: The patient's 3 PM chest x-ray is back. I have reviewed the images and report. There is no evidence of expansion of the small pneumothorax. To me, it appears smaller. I believe the patient is safe for discharge. Follow-up with surgery as needed. I will see him again on an as-needed basis. Please renotify with any questions or concerns.
--- NOTE | 2020-05-08 21:38 | Progress Note ---
Provider Note Provider Note: CARDIOLOGY PROGRESS NOTE by Dr. Samia Roper on 05/08/2020. SUBJECTIVE: The patient denies any shortness of breath. There is no increase in the pneumothorax. He denies chest pain discomfort or shortness of breath or PND orthopnea. The patient has no fever. His fluid analysis is awaited. There is no syncope or near syncope. There is no ventricular arrhythmias. PHYSICAL EXAMINATION: The patient is a frail build and appears to be malnourished and chronically ill. Selected Entries 05/08/20 14:59 Temperature 98.1 F Temperature Oral Source Pulse Rate 74 Respiratory 16 Rate Blood Pressure 124/68 [Right Upper Arm] Blood Pressure 86 Mean [Right Upper Arm] Blood Pressure Supine Position [Right Upper Arm] O2 Sat by Pulse 100 Oximetry Oxygen Delivery Room Air Method ( includes room air) HEAD: Is atraumatic normocephalic. EYES: Pupils equal round regular reactive light accommodation. Extraocular movements are normal. There is no conjunctival pallor. There is no scleral icterus. EARS: Tympanic membranes are intact. External auditory canals are clear. NOSE: There is no deviated nasal septum. There is no inflammation nasal mucous membrane. MOUTH: Mucous membranes of the mouth is dry. Tongue is very dry. There is no ulcers. There is no bleeding from gums. THROAT: There is no redness of the oropharynx there is no exudates. SKIN: There is no skin rashes. There is no petechia or ecchymosis. NECK: Is supple. There is no JVD. Carotids are equal there is no bruits. There is no lymphadenopathy. There is no axillary muscle respiration use. LUNGS: Is clear to auscultation percussion without any rhonchi rales or wheezing. HEART: S1-S2 is heard. There is no S3 gallop. There is no S4 gallop. There is systolic murmur left sternal border and the apex there is no rub. ABDOMEN: Is soft. Nontender there is no paraspinal megaly. Bowel sounds are well heard. EXTREMITIES: Femorals are diminished there is no femoral bruits. Leg pulses are diminished. There is no pedal edema. There is no DVT cellulitis. There is no calf tenderness. There is no cyanosis or clubbing [employer]ER/DESIGNER: The patient is conscious awake alert oriented x3 with no focal deficits. PSYCHIATRIC: The patient appears to be slightly depressed. But his judgment and insight are intact. Labs- All tests 24 hr 05/07/20 05/07/20 05/08/20 13:05 15:05 08:45 POC Glucose 73 Fluid Source LUNG Fluid WBC 89 AFB Smear NO ACID FAST BACILLI Slides for Path Review SEE COMMENT 05/08/20 05/08/20 11:26 15:59 POC Glucose 84 105 Fluid Source Fluid WBC AFB Smear Slides for Path Review Chest X-Ray 05/04/20 16:40 IMPRESSION: Left pleural effusion with smaller right pleural effusion. Cannot exclude limited airspace disease in the right lower lobe, pneumonia versus atelectasis. Thoracentesis Ultrasound 05/07/20 00:00 IMPRESSION: SUCCESSFUL THORACENTESIS USING ULTRASOUND GUIDANCE. Chest CT 05/07/20 07:30 IMPRESSION: 1. Stable moderately-sized right pleural effusion associated with areas of subsegmental atelectasis in the right lower lobe and fluid that tracks into the oblique fissure. 2. Stable loculated left pleural effusions and consolidative opacities in the left lower lobe and lingula. Abdomen/Pelvis CT 05/07/20 08:00 IMPRESSION: No acute intra-abdominal abnormality. Other chronic or unchanged findings as detailed above. Chest X-Ray 05/07/20 15:15 IMPRESSION: No pneumothorax following right-sided thoracentesis. Improved aeration on the right as well. Persistent left pleural effusion with underlying left basilar atelectasis or pneumonia. Chest X-Ray 05/07/20 17:15 IMPRESSION: Tiny right apical pneumothorax. Small left effusion. Chest X-Ray 05/08/20 00:00 IMPRESSION: 1. Unchanged right apical pneumothorax. 2. Stable pleural and parenchymal opacities in the inferior aspect the left hemithorax that could represent a combination of pleural fluid, atelectasis and/or pneumonia. Chest X-Ray 05/08/20 15:00 IMPRESSION: Minimal residual right apical pneumothorax. Small left pleural effusion. Small right pleural effusion. Retrocardiac opacification on the left may suggest airspace disease, atelectasis versus pneumonia. IMPRESSION/RECOMMENDATION: 1. Bilateral pleural effusion status post right thoracentesis. Await pleural fluid analysis. 2. Hypotension: This is resolved with addition of midodrine 3. Severe diarrhea: The patient C. difficile is positive. This is improving. Continue vancomycin. The patient claims no further episodes of diarrhea. There is no nausea vomiting. 4. Severe dehydration: . Will need to be cautious with fluid replacement since the patient has end-stage renal disease and is on hemodialysis. Will discuss with nephrology to see if the patient can have less amount of fluid pulled out when he has dialysis. 5. History of methicillin sensitive Staphylococcus aureus. patient on IV antibiotics, with p.o. vancomycin to help combat C. difficile colitis.. 6. Coronary artery disease history of coronary artery bypass graft surgery. No anginal symptoms. 7.Ischemic cardiomyopathy with moderately reduced LV ejection fraction of 40% to 45%. 8. History of Mobitz type I second-degree AV block. This is intermittent. With a baseline patient having significant first-degree AV block. No hemodynamic compromise. 9 . Elevated troponin I: This is secondary to supply demand mismatch due to severe dehydration and hypotension. No definite evidence of non-ST elevation ME. We will treat the underlying cause. The patient's troponin is trending down. 10. Prior history of cardiac arrest due to pulseless electrical activity: No recurrence. 11. History of sleep apnea on CPAP at home. Patient does not know the settings. He states his knows. We will asked the if she can give us the details so we can put him on CPAP. This is most likely the cause of the patient's heart rate going down into the 40s. 12. 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 13. Peripheral vascular disease: History of balloon angioplasty of right femoral artery. 14. History of end-stage renal disease on dialysis. Continue dialysis, but will discuss with nephrology to see if less amount of fluid can be removed. 15. Malnutrition Medications reviewed. Medicationn regimen and management plan discussed with attending provider on the case.. Medical decision making is of moderate complexity. 40 minutes spent as patient more than 50% of time spent in direct patient care. Discussed with Dr. Girard. Will follow
[2020-05-09] MEDS ORDERED: HEPARIN SOD (PORCINE) 1,000 UNIT/ML 10 ML VIAL IV PRN (05:00)
--- NOTE | 2020-05-14 15:08 | PDOC DISCHARGE SUMMARY ---
Impression - Admit/DC Date/PCP Admission Date/Primary Care Provider: 05/04/20 20:39 KEEGAN MONTENEGRO MD Discharge Date: 05/08/20 - Discharge Diagnosis (1) C. 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: Yes (15) Pneumothorax Is this a current diagnosis for this admission?: Yes - Additional Information Discharge Diet: Diabetic, Other (Comments) Discharge Activity: Activity As Tolerated, Balance Activity w/Rest, Weigh Daily Referrals: RENAY CLINTON MD [ACTIVE STAFF] - 05/14/20 1:00 pm KEEGAN MONTENEGRO MD [Primary Care Provider] - 05/15/20 10:00 am Prescriptions: Midodrine HCl [Proamatine 5 mg Tablet] 5 mg PO TID #90 tablet Home Medications: Albuterol Sulfate [Albuterol Sulfate Hfa] 2 puff IH Q4HP PRN 04/12/20 Bimatoprost [Lumigan 0.01% Oph Soln 2.5 ml/Bottle] 1 drop OU QHS 04/12/20 Pantoprazole Sodium [Protonix [address] Tablet] 40 mg PO DAILY #30 tablet.dr 04/30/20 Vancomycin HCl [Vancocin Inj 500 mg Vial] 125 mg PO Q6 #60 vial MDD filled 05/03 for 15 day supply 04/30/20 Parenteral Amino Acid 15% No.5 [Clinisol] 0 units IV ASDIR PRN 05/07/20 Midodrine HCl [Proamatine 5 mg Tablet] 5 mg PO TID #90 tablet 05/08/20 History of Present Illiness History of Present Illness: KATHRYN HURLEY is a 64 year old male This is a 64-year-old male with multiple medical problems including the history of the type 2 diabetes history of the end-stage renal disease on hemodialysis history of the coronary artery disease history of the recurrent C. difficile history of the methicillin sensitive infections to the Port-A-Cath recently changed to [place] with the multiple other comorbidities with a history of a cardiac arrest recently admitting in the hospital for the hypertension C. difficile Patient was discharged on Thursday with the p.o. vancomycin unable to get it for next couple of days to the pharmacy started yesterday before the p.o. vancomycin Patient went to the dialysis yesterday and patient's remove the 1.5 L fluid and patient's was same hypotensive and patient is complaining of shortness of the breath and patient with profuse diarrhea brought to the emergency department by EMS Patient also getting the cefazolin for the dialysis Thursday and Thursday In the emergency department patient's to have profuse diarrhea and patient was little hypotensive receiving the fluid bolus feeling better patient Initially with ongoing problem discussed with the ER physicians to transport the [place] but when he talked to the [place] there is no bed availability decided to admit here Consult to Dr. Clinton suggested. Ines byrd Consulted Dr. Tavares Consult infectious disease We will continues the p.o. vancomycin's as per ID suggestions patient is to have a started on the Levaquin patient received IV vancomycin's Patient's white count is all normal chest x-ray suggested pleural effusions with the possible airspace disease Patient is otherwise stable The [facility] denied any chest pain no shortness of the breath only the complain about nausea Patient have a COVID test done Patient covid with test done 2 weeks back was all negative, no contact with any covid person Hospital Course Hospital Course: Patient was admitted for the C. difficile colitis recurrent ongoing sepsis end- stage renal disease Patient is treated with the p.o. vancomycin's and cardiology nephrology and infectious disease consult was done Responds very well diarrhea is pretty much stopped and patient have afebrile back to the baseline's Discussed with the patient and the regarding the patient's current conditions other coordinate program consultant Physical Exam Vital Signs: Temp Pulse Resp BP Pulse Ox 98.1 F 74 16 124/68 100 05/08/20 17:00 05/08/20 17:00 05/08/20 17:00 05/08/20 17:00 05/08/20 17:00 General appearance: PRESENT: no acute distress, well-developed, well-nourished Head exam: PRESENT: atraumatic, normocephalic Eye exam: PRESENT: conjunctiva pink, EOMI, PERRLA. ABSENT: scleral icterus Ear exam: PRESENT: normal external ear exam Mouth exam: PRESENT: moist, tongue midline Neck exam: ABSENT: carotid bruit, JVD, lymphadenopathy, thyromegaly Respiratory exam: PRESENT: clear to auscultation jolie. ABSENT: rales, rhonchi, wheezes Cardiovascular exam: PRESENT: RRR. ABSENT: diastolic murmur, rubs, systolic murmur Vascular exam: PRESENT: normal capillary refill GI/Abdominal exam: PRESENT: normal bowel sounds, soft. ABSENT: distended, guarding, mass, organolmegaly, rebound, tenderness Rectal exam: PRESENT: deferred Extremities exam: PRESENT: full ROM. ABSENT: calf tenderness, clubbing, pedal edema Neurological exam: PRESENT: alert, awake, oriented to person, oriented to place, oriented to time, oriented to situation. ABSENT: motor sensory deficit Psychiatric exam: PRESENT: appropriate affect, normal mood. ABSENT: homicidal ideation, suicidal ideation Skin exam: PRESENT: dry, intact, warm. ABSENT: cyanosis, rash Results Laboratory Results: WBC 5.9 10^3/uL (4.0-10.5) 05/07/20 06:16 RBC 3.48 10^6/uL (4.35-5.55) L 05/07/20 06:16 Hgb 11.0 g/dL (13.5-17.0) L 05/07/20 06:16 Hct 33.0 % (37.9-51.0) L 05/07/20 06:16 MCV 95 fl (80-97) 05/07/20 06:16 MCH 31.5 pg (27.0-33.4) 05/07/20 06:16 MCHC 33.2 g/dL (32.0-36.0) 05/07/20 06:16 RDW 16.0 % (11.5-14.0) H 05/07/20 06:16 Plt Count 214 10^3/uL (150-450) 05/07/20 06:16 Lymph % (Auto) 35.9 % (13-45) 05/07/20 06:16 Iroquois % (Auto) 12.6 % (3-13) 05/07/20 06:16 Eos % (Auto) 5.6 % (0-6) 05/07/20 06:16 Baso % (Auto) 0.5 % (0-2) 05/07/20 06:16 Absolute Neuts (auto) 2.7 10^3/uL (1.7-8.2) 05/07/20 06:16 Absolute Lymphs (auto) 2.1 10^3/uL (0.5-4.7) 05/07/20 06:16 Absolute Monos (auto) 0.7 10^3/uL (0.1-1.4) 05/07/20 06:16 Absolute Eos (auto) 0.3 10^3/uL (0.0-0.6) 05/07/20 06:16 Absolute Basos (auto) 0.0 10^3/uL (0.0-0.2) 05/07/20 06:16 Seg Neutrophils % 45.4 % (42-78) 05/07/20 06:16 PT 13.7 SEC (11.4-15.4) 05/07/20 12:15 INR 1.05 05/07/20 12:15 INR (Anticoag Therapy) Cancelled 05/07/20 10:35 APTT 31.7 SEC (23.5-35.8) 05/07/20 12:15 Sodium 139.0 mmol/L (137-145) 05/07/20 06:16 Potassium 5.3 mmol/L (3.6-5.0) H 05/07/20 06:16 Chloride 110 mmol/L (98-107) H 05/07/20 06:16 Carbon Dioxide 18 mmol/L (22-30) L 05/07/20 06:16 Anion Gap 11 (5-19) 05/07/20 06:16 BUN 56 mg/dL (7-20) H 05/07/20 06:16 Creatinine 4.78 mg/dL (0.52-1.25) H 05/07/20 06:16 Est GFR ( Amer) 15 (>60) L 05/07/20 06:16 Est GFR (MDRD) Non-Af 12 (>60) L 05/07/20 06:16 Glucose 96 mg/dL (75-110) 05/07/20 06:16 POC Glucose 105 mg/dL (70-110) 05/08/20 15:59 Lactic Acid 1.1 mmol/L (0.7-2.1) 05/05/20 01:21 Calcium 9.4 mg/dL (8.4-10.2) 05/07/20 06:16 Magnesium 1.9 mg/dL (1.6-2.3) 05/07/20 06:16 Total Bilirubin 0.3 mg/dL (0.2-1.3) 05/06/20 04:26 Direct Bilirubin 0.2 mg/dL (0.0-0.4) 05/06/20 04:26 Neonat Total Bilirubin Not Reportable 05/06/20 04:26 Neonat Direct Bilirubin Not Reportable 05/06/20 04:26 Neonat Indirect Bili Not Reportable 05/06/20 04:26 AST 22 U/L (17-59) 05/06/20 04:26 ALT < 4 U/L (<50) 05/06/20 04:26 Alkaline Phosphatase 91 U/L (38-126) 05/06/20 04:26 Lactate Dehydrogenase 149 U/L (120-246) 05/07/20 10:35 Creatine Kinase 88 U/L (55-170) 05/05/20 21:20 CK-MB (CK-2) 3.65 ng/mL (<4.55) 05/05/20 21:20 Troponin I 0.997 ng/mL 05/05/20 21:20 Total Protein 7.9 g/dL (6.3-8.2) 05/07/20 10:35 Albumin 3.5 g/dL (3.5-5.0) 05/06/20 04:26 Random Cortisol 12.60 ug/dL (None Established) 05/06/20 04:26 Cortisol AM Sample 12.10 ug/dL (4.46-22.7) 05/07/20 06:16 Fluid Type PLEURAL 05/07/20 15:05 Fluid Source LUNG 05/07/20 15:05 Fluid Color YELLOW 05/07/20 15:05 Fluid Appearance SLIGHTLY HAZY 05/07/20 15:05 Fluid Viscosity SLIGHTLY VISCOUS 05/07/20 15:05 Fluid pH 8.0 (Not Estab.) 05/07/20 15:05 Fluid WBC 89 /uL 05/07/20 15:05 Fluid RBC 242 /uL 05/07/20 15:05 Fluid Seg Neutrophils 5 % 05/07/20 15:05 Fluid Lymphocytes 94 % 05/07/20 15:05 Fluid Monocytes 0 % 05/07/20 15:05 Fluid Eosinophils 1 % 05/07/20 15:05 Fluid Basophils 0 % 05/07/20 15:05 Fluid Glucose 78 mg/dL (.) 05/07/20 15:05 Fluid Total Protein 4.0 g/dL (.) 05/07/20 15:05 Fluid Albumin 1.8 g/dL (Not Estab.) 05/07/20 15:05 Fluid LDH 127 IU/L (.) 05/07/20 15:05 Fluid Amylase 29 U/L (.) 05/07/20 15:05 COVID-19 Source NASOPHARYNGEAL 05/04/20 22:03 COVID-19 (KIARA) NOT DETECTED 05/04/20 22:03 AFB Smear NO ACID FAST BACILLI (NO AFB SEEN) 05/07/20 13:05 Slides for Path Review SEE COMMENT 05/07/20 15:05 05/04/20 05/04/20 05/05/20 19:00 20:44 04:54 CK-MB (CK-2) Cancelled 3.99 3.59 Troponin I Cancelled 0.146 0.905 05/05/20 05/05/20 05/05/20 11:13 12:11 14:50 CK-MB (CK-2) Cancelled 3.92 4.08 Troponin I Cancelled 1.140 1.130 05/05/20 21:20 CK-MB (CK-2) 3.65 Troponin I 0.997 Impressions: Chest X-Ray 05/04/20 16:40 IMPRESSION: Left pleural effusion with smaller right pleural effusion. Cannot exclude limited airspace disease in the right lower lobe, pneumonia versus atelectasis. Thoracentesis Ultrasound 05/07/20 00:00 IMPRESSION: SUCCESSFUL THORACENTESIS USING ULTRASOUND GUIDANCE. Chest CT 05/07/20 07:30 IMPRESSION: 1. Stable moderately-sized right pleural effusion associated with areas of subsegmental atelectasis in the right lower lobe and fluid that tracks into the oblique fissure. 2. Stable loculated left pleural effusions and consolidative opacities in the left lower lobe and lingula. Abdomen/Pelvis CT 05/07/20 08:00 IMPRESSION: No acute intra-abdominal abnormality. Other chronic or unchanged findings as detailed above. Chest X-Ray 05/07/20 15:15 IMPRESSION: No pneumothorax following right-sided thoracentesis. Improved aeration on the right as well. Persistent left pleural effusion with underlying left basilar atelectasis or pneumonia. Chest X-Ray 05/07/20 17:15 IMPRESSION: Tiny right apical pneumothorax. Small left effusion. Chest X-Ray 05/08/20 00:00 IMPRESSION: 1. Unchanged right apical pneumothorax. 2. Stable pleural and parenchymal opacities in the inferior aspect the left hemithorax that could represent a combination of pleural fluid, atelectasis and/or pneumonia. Chest X-Ray 05/08/20 15:00 IMPRESSION: Minimal residual right apical pneumothorax. Small left pleural effusion. Small right pleural effusion. Retrocardiac opacification on the left may suggest airspace disease, atelectasis versus pneumonia. Plan Time Spent: Greater than 30 Minutes - Follow-up with the hemodialysis as scheduled Stroke Is this a Stroke Patient?: No Acute Heart Failure - Is this a Heart Failure Patient?: No
== END 2020-05-08 17:33 | disposition home health service (06) | DRG 371 ==
LOC: ER 16:02 → EH 20:39 → 3N 05-05 00:46 → 3S 05-07 01:36
PROVIDERS: ADMIT Family Medicine; ATTEND Family Medicine
PROC: 5A1D70Z Performance of Urinary Filtration, Intermittent, Less than 6 Hours Per Day (ICD-10-PCS; principal; 2020-05-07)
PROC: 0W993ZX Drainage of Right Pleural Cavity, Percutaneous Approach, Diagnostic (ICD-10-PCS; 2020-05-07)
DX: A04.72 Enterocolitis due to Clostridium difficile, not specified as recurrent (principal); J18.9 Pneumonia, unspecified organism; I50.33 Acute on chronic diastolic (congestive) heart failure; N18.6 End stage renal disease; G61.0 Guillain-Barre syndrome; E46 Unspecified protein-calorie malnutrition; J95.811 Postprocedural pneumothorax; Z16.30 Resistance to unspecified antimicrobial drugs; I44.1 Atrioventricular block, second degree; D63.1 Anemia in chronic kidney disease; I25.10 Atherosclerotic heart disease of native coronary artery without angina pectoris; E78.00 Pure hypercholesterolemia, unspecified; E11.22 Type 2 diabetes mellitus with diabetic chronic kidney disease; I95.9 Hypotension, unspecified; E86.0 Dehydration; B96.89 Other specified bacterial agents as the cause of diseases classified elsewhere; I25.2 Old myocardial infarction; Y83.8 Other surgical procedures as the cause of abnormal reaction of the patient, or of later complication, without mention of misadventure at the time of the procedure; Y92.230 Patient room in hospital as the place of occurrence of the external cause; Z99.2 Dependence on renal dialysis; Z79.51 Long term (current) use of inhaled steroids; Z79.899 Other long term (current) drug therapy; Z03.818 Encounter for observation for suspected exposure to other biological agents ruled out; Z86.74 Personal history of sudden cardiac arrest; Z86.73 Personal history of transient ischemic attack (TIA), and cerebral infarction without residual deficits
CPT/HCPCS: 32555; 36415; 71045; 71046; 71250; 74176; 80048; 80053; 82042; 82150; 82533; 82550; 82553; 82945; 82962; 83605; 83615; 83735; 83986; 84155; 84157; 84484; 85025; 85610; 85730; 87015; 87040; 87070; 87075; 87116; 87205; 87206; 87635; 89050; 93005; 93010; 94660; 96365; 99291; 99292; C9803; J1265; J1644; J1956; J2405; J3370; J3490; J7040

== ENCOUNTER → 2020-06-07 | Outpatient (CLI) | payer MEDICARE ==
[~2020-06-07] MED LIST changes: -DIPHENHYDRAMINE HCL 50 MG/ML VIAL ONE; -EPINEPHRINE INJ 1 MG/10 ML DISP.SYRIN ONE; -FENTANYL CITRATE INJ/PF 100 MCG/2 ML AMPUL ONE; -FLUMAZENIL INJ 0.5 MG/5 ML VIAL ONE; -GLUCAGON,HUMAN RECOMB 1 MG INJ ONE; -MIDAZOLAM 2 MG/2 ML INJ ONE; +MIDODRINE HCL 5 MG TABLET PO ONE; -NALOXONE HCL INJ/PF 0.4 MG/1 ML SDV ONE; -ONDANSETRON HCL INJ/PF 4 MG/2 ML SDV ONE; +REGADENOSON INJ 0.4 MG/5 ML DISP.SYRIN IV ONE
== END ==
LOC: RAD 08:08
PROVIDERS: ATTEND Specialist
DX: R06.02 Shortness of breath (principal)
CPT/HCPCS: 93017; 78452; A9500; J2785; A9270; Q9969

== ENCOUNTER 2020-07-03 16:12 | Emergency (ER) | payer MEDICARE ==
--- NOTE | 2020-07-03 16:37 | RADIOLOGY REPORT (SQ) ---
EXAM DESCRIPTION: CT HEAD WITHOUT IMAGES COMPLETED DATE/TIME: 07/03/2020 4:22 pm REASON FOR STUDY: stroke alert COMPARISON: CT of the head without contrast from 04/12/2020. TECHNIQUE: Axial images acquired through the brain without intravenous contrast. Images reviewed wi th bone, brain and subdural windows. Additional sagittal and coronal reconstructions were generated. Images stored on PACS. All CT scanners at this facility use dose modulation, iterative reconstruction, and/or weight based d osing when appropriate to reduce radiation dose to as low as reasonably achievable (ALARA). [facility]: Dose Right [facility]: CareDose [facility]: Dose Right [facility]: Teradose 4D [facility]: Kuratur RADIATION DOSE: CT Rad equipment meets quality standard of care and radiation dose reduction techniq ues were employed. CTDIvol: 53.2 mGy. DLP: 991 mGy-cm. LIMITATIONS: None. FINDINGS: The area of low attenuation in the right hankins radiata is unchanged. The confluent areas of low-attenuation in the supratentorial periventricular white matter are also unchanged. There is no acute intracranial hemorrhage, vascular territorial infarct, extra-axial fluid collection, mass ef fect or midline shift. The kruse-white matter differentiation is preserved. There is no effacement o f the cerebral sulci or basal subarachnoid cisterns. The caliber of the ventricles is concordant wit h the degree of sulcation and unchanged. There is no acute effacement of the cerebral sulci or basal subarachnoid cisterns. The globes are aphakic. The orbits are intact. The paranasal sinuses are clear. The extracranial s oft cutaneous hyperdensity posterior and inferior to the occipital bone is unchanged there is no calv arial fracture. IMPRESSION: No acute intracranial abnormality. EVIDENCE OF ACUTE STROKE: NO. COMMENT: This report was called to DENY LUCAS MD at16:30 on 07/03/2020. Quality ID # [id number]: Final reports with documentation of one or more dose reduction techniques (e.g., Au tomated exposure control, adjustment of the mA and/or kV according to patient size, use of iterative reconstruction technique) TECHNICAL DOCUMENTATION: JOB ID: [id number] 2010 [employer]- All Rights Reserved Reading location - IP/workstation name: [email or web address]
--- NOTE | 2020-07-03 16:39 | RADIOLOGY REPORT (SQ) ---
EXAM DESCRIPTION: CHEST SINGLE VIEW IMAGES COMPLETED DATE/TIME: 07/03/2020 4:23 pm REASON FOR STUDY: stroke alert COMPARISON: 05/08/2020 EXAM PARAMETERS: NUMBER OF VIEWS: One view. TECHNIQUE: Single frontal radiographic view of the chest acquired. RADIATION DOSE: NA LIMITATIONS: None. FINDINGS: LUNGS AND PLEURA: Considerable opacification in the left base. Cannot exclude persistent left pleural effusion. Opacification the medial right base. MEDIASTINUM AND HILAR STRUCTURES: No masses. Contour normal. HEART AND VASCULAR STRUCTURES: Heart size is borderline. No pulmonary edema. BONES: No acute findings. HARDWARE: Sternotomy wires. Dual-lumen catheter on the right. OTHER: No other significant finding. IMPRESSION: Cardiomegaly without pulmonary edema. Cannot exclude persistent left pleural effusion. Cannot exclude limited right lower lobe pneumonia. TECHNICAL DOCUMENTATION: JOB ID: [id number] 2010 [employer]- All Rights Reserved Reading location - IP/workstation name: [email or web address]
--- NOTE | 2020-07-03 16:45 | ER Document Report ---
ED General - General Chief Complaint: S/S of Possible Stroke Stated Complaint: WEAKNESS Time Seen by Provider: 07/03/20 16:21 Primary Care Provider: RENAY CLINTON MD [ACTIVE STAFF] - Follow up as needed Mode of Arrival: Medic Information source: Patient Notes: 64-year-old man presents to the emergency department history of chronic debilitation secondary to prior strokes and dependent for ADLs. Home health care provider and family concerned that he has increased facial droop compared to his normal facial droop. They were also concerned that he seems to be somewhat slower and sluggish in comparison to his baseline. He is being sent to the emergency department to be evaluated for possible new onset CVA. She has no complaints and is not clear why he was being sent to the emergency department. He denies pain and is able to answer questions appropriately. TRAVEL OUTSIDE OF THE [place] IN LAST 30 DAYS: No - Related Data Allergies/Adverse Reactions: sulfamethoxazole [From Bactrim] Allergy (Verified 04/25/20 19:00) trimethoprim [From Bactrim] Allergy (Verified 04/25/20 19:00) Past Medical History - Social History Smoking Status: Former Smoker Chew tobacco use (# tins/day): No Frequency of alcohol use: None Drug Abuse: None Family History: Reviewed & Not Pertinent, CAD - Past Medical History Cardiac Medical History: Reports: Hx Congestive Heart Failure, Hx Coronary Art blayne Disease, Hx Heart Attack, Hx Hypercholesterolemia Denies: Hx Hypertension Pulmonary Medical History: Reports: Hx Asthma, Hx Bronchitis, Hx Pneumonia, Hx Intubation, Hx Respiratory Failure, Hx Sleep Apnea - On C Pap Denies: Hx COPD Neurological Medical History: Denies: Hx Cerebrovascular Accident, Hx Seizures Endocrine Medical History: Reports: Hx Diabetes Mellitus Type 1, Hx Diabetes Mellitus Type 2 Renal/ Medical History: Reports: Hx End Stage Renal Disease, Hx Hemodialysis GI Medical History: Reports: Hx Gastroesophageal Reflux Disease Musculoskeletal Medical History: Reports Hx Arthritis Psychiatric Medical History: Reports: Hx Depression - anxiety Infectious Medical History: Reports: Hx C-Diff Past Surgical History: Reports: Hx Cardiac Catheterization, Hx Cardiac Surgery - bipass x4, Hx Coronary Artery Bypass Graft - Quadruple bypass 2007, Hx Kidney ( Renal Surgery) - RENAL TRANSPLANT, Hx Vascular Surgery - left AV fistual, Other - History peritoneal dialysis catheter placement and removal - Immunizations Immunizations up to date: Yes Hx Diphtheria, Pertussis, Tetanus Vaccination: No Hx Pneumococcal Vaccination: 08/16/16 Physical Exam - Vital signs Vitals: Pulse Ox 92 07/03/20 16:35 - Notes Notes: PHYSICAL EXAMINATION: Physical Exam: General: Chronically ill, generalized weakness male in no acute distress. HEENT: NC/AT, pupils equal round and reactive to light, MM moist,nares clear, oropharynx clear, airway patent Neck: supple, no adenopathy, no masses. Good range of motion Lungs: Good air movement, no wheezes and no rales. CVS: Regular rate and rhythm no murmur gallop or rub Abdomen: Soft, active, nontender, no masses, no hepatosplenomegaly Ext: No edema, clubbing or cyanosis. Neuro: Alert and responsive, moving all 4 extremities on command, cranial nerves intact, no focal findings Skin: Intact no open lesions, no rash Course - Vital Signs Vital signs: Temp Pulse Resp BP Pulse Ox 98.1 F 93 22 H 105/58 L 98 07/03/20 20:02 07/03/20 16:43 07/03/20 16:43 07/03/20 16:43 07/03/20 16:43 - Laboratory Result Diagrams: 07/03/20 16:42 07/03/20 16:42 Laboratory results interpreted by me: 07/03/20 07/03/20 07/03/20 16:42 16:42 16:42 WBC 3.7 L MCHC 31.6 L RDW 17.1 H Plt Count 135 L Lymph % (Auto) 48.3 H Baso % (Auto) 2.5 H Absolute Neuts (auto) 1.3 L Seg Neutrophils % 34.1 L Creatinine 3.08 H Est GFR ( Amer) 25 L Est GFR (MDRD) Non-Af 21 L Direct Bilirubin 0.6 H Alkaline Phosphatase 185 H CK-MB (CK-2) 6.01 H Total Protein 10.0 H I have reviewed laboratory data and used this information for the treatment decisions regarding the patient. - Diagnostic Test Radiology reviewed: Image reviewed, Reports reviewed Radiology results interpreted by me: 07/03/20 19:51 CT head: No acute intra-cranial pathology, no stroke. Chest x-ray: Cardiomegaly, no pulmonary edema, questionable left pleural eff usion questionable right lower lobe infiltrate. - EKG Interpretation by Me Rate: Normal - EKG interpreted by Dr. Valdez: Normal sinus rhythm, rate 94, prolonged QT interval , normal axis, Q waves in II,II, AVF inferior infarct, age indeterminate, anterior lateral infarct age indeterminate. No acute ST or T wave abnormalities, no ischemic findings, Compared to prior EKG dated 05/05/2020, no significant changes except the first-degree AV block noted 05/05/2020 has resolved. Discharge - Discharge Clinical Impression: Chronic diastolic (congestive) heart failure, Pleural effusion on right, End- stage renal disease on hemodialysis Hypotension Qualifiers: Hypotension type: unspecified hypotension type Qualified Code(s): I95.9 - Hypotension, unspecified Condition: Good Disposition: HOME, SELF-CARE Instructions: Weakness ([facility]) Additional Instructions: You were seen in the emergency department for symptoms suggestive of a acute stroke. The CT scan was negative and there were no findings to justify a clinical diagnosis of acute stroke. You were giving some fluids because of some mild dehydration and presently you are feeling better. You are being discharged home to follow-up with your doctors as an outpatient as needed. If your symptoms suddenly worsen or if you have other concerns you may return to the emergency department for further evaluation and treatment HOME CARE INSTRUCTIONS & INFORMATION: Thank you for choosing us for your medical needs. We hope you're satisfied with the care you received. After you leave, you must properly care for your problem and, at the same time, observe its progress. Any condition can change. Some illnesses can change rapidly over hours or days. If your condition worsens, return to the Emergency Department or see your physician promptly. ABOUT YOUR X-RAYS AND EKG'S: If you had an EKG or X-rays taken, they have been read by the Emergency Physician. The X-rays and EKG's will also be read by a Radiologist or [employer] within 24 hours. If discrepancies are noted, you will be notified by telephone. Please be certain the ED has a correct telephone number & address where you can be reached. Also, realize that some fractures or abnormalities do not show up on initial X-rays. If your symptoms continue, see your physician. ABOUT YOUR LABORATORY TEST: If you had laboratory tests, the results have been reviewed by the Emergency Physician. Some test results (for example cultures) may not be available for several days. You will be contacted if any test result shows you need additional treatment. Please be certain the ED has a correct telephone number and address where you can be reached. ABOUT YOUR MEDICATIONS: You will receive instructions on how to take your medicine on the prescription label you receive. Additional information may be provided by the Pharmacy. If you have questions afterwards, call the ED for clarification or further instructions. Some prescribed medications may cause drowsiness. Do not perform tasks such as driving a car or operating machinery without consulting your Pharmacist. If you feel you need a refill of pain medication, your condition will need re-evaluation. Please do not call for a re fill of any medication. ABOUT YOUR SIGNATURE: Signature of this document acknowledges to followin. Understanding that you received emergency treatment and that you may be released before al medical problems are known or treated. Please be certain the ED has a correct phone number & address where you can be reached. 2. Acknowledgement that you will arrange for follow-up care as recommended. 3. Authorization for the Emergency Physician to provide information to your follow-up Physician in order to maximize your care. AT ANY TIME, IF YOUR SYMPTOMS CHANGE SIGNIFICANTLY OR WORSEN OR YOU DEVELOP NEW SYMPTOMS, RETURN TO THE EMERGENCY DEPARTMENT IMMEDIATELY FOR RE-EVALUATION. OUR GOAL IS TO PROVIDE EXCELLENT MEDICAL CARE! WE HOPE THAT WE HAVE MET YOUR EXPECTATIONS DURING YOUR EMERGENCY DEPARTMENT VISIT AND THAT YOU FEEL YOU HAVE RECEIVED EXCELLENT CARE! Referrals: RENAY CLINTON MD [ACTIVE STAFF] - Follow up as needed
[2020-07-03 17:00] LABS: INTERNATIONAL RATION (INR) 1.14; PROTHROMBIN TIME 14.8 SEC (11.4-15.4)
[2020-07-03 17:01] LABS: PARTIAL THROMBOPLASTIN TIME 33.4 SEC (23.5-35.8)
[2020-07-03 17:02] LABS: ABSOLUTE BASOPHILS # (AUTO) 0.1 10^3/uL (0.0-0.2); ABSOLUTE EOSINOPHILS # (AUTO) 0.1 10^3/uL (0.0-0.6); ABSOLUTE LYMPHOCYTES (AUTO) 1.8 10^3/uL (0.5-4.7); ABSOLUTE MONOCYTES (AUTO) 0.4 10^3/uL (0.1-1.4); ABSOLUTE NEUT (AUTO) 1.3 10^3/uL (1.7-8.2); BASOPHILS % (AUTO) 2.5 % (0-2); EOSINOPHILS % (AUTO) 3.5 % (0-6); HEMATOCRIT 44.5 % (37.9-51.0); HEMOGLOBIN 14.1 g/dL (13.5-17.0); LYMPHOCYTES % (AUTO) 48.3 % (13-45); MEAN CORPUSCULAR HEMOGLOBIN 29.5 pg (27.0-33.4); MEAN CORPUSCULAR HGB CONC 31.6 g/dL (32.0-36.0); MEAN CORPUSCULAR VOLUME 93 fl (80-97); MONOCYTES % (AUTO) 11.6 % (3-13); PLATELET COUNT 135 10^3/uL (150-450); RED BLOOD COUNT 4.77 10^6/uL (4.35-5.55); RED CELL DISTRIBUTION WIDTH 17.1 % (11.5-14.0); SEGMENTED NEUTROPHILS % (AUTO) 34.1 % (42-78); TOTAL CELLS COUNTED % (AUTO) 100 %; WHITE BLOOD COUNT 3.7 10^3/uL (4.0-10.5)
[2020-07-03 17:13] LABS: ALBUMIN 4.1 g/dL (3.5-5.0); ALKALINE PHOSPHATASE 185 U/L (38-126); ANION GAP 9 (5-19); ASPARTATE AMINO TRANSFERASE 28 U/L (17-59); BILIRUBIN,DIRECT 0.6 mg/dL (0.0-0.4); BLOOD UREA NITROGEN 16 mg/dL (7-20); CALCIUM 9.3 mg/dL (8.4-10.2); CARBON DIOXIDE 29 mmol/L (22-30); CHLORIDE 100 mmol/L (98-107); CREATINE KINASE 76 U/L (55-170); GLUCOSE 91 mg/dL (75-110); POTASSIUM 3.8 mmol/L (3.6-5.0)
[2020-07-03] MEDS ORDERED: NORMAL SALINE 250 ML IV ONE (17:22)
[2020-07-03 17:24] LABS: CREATINE KINASE MB 6.01 ng/mL (<4.55)
[2020-07-03 17:29] LABS: TROPONIN I 0.205 ng/mL
--- NOTE | 2020-07-03 19:34 | EKG REPORT ---
SEVERITY:- ABNORMAL ECG - SINUS RHYTHM INFERIOR INFARCT, AGE INDETERMINATE ANTEROLATERAL INFARCT, AGE INDETERMINATE PROLONGED QT INTERVAL : Confirmed by: Zoe Lazo 03-Jul-2020 19:33:32
[2020-07-03 22:06] VITALS: BP 96/58
== END 2020-07-03 22:08 | disposition home or self-care (01) ==
LOC: ER 16:12
DX: I13.2 Hypertensive heart and chronic kidney disease with heart failure and with stage 5 chronic kidney disease, or end stage renal disease (principal); E11.22 Type 2 diabetes mellitus with diabetic chronic kidney disease; N18.6 End stage renal disease; I50.32 Chronic diastolic (congestive) heart failure; Z99.2 Dependence on renal dialysis; I95.9 Hypotension, unspecified; I69.392 Facial weakness following cerebral infarction; R53.1 Weakness; I25.10 Atherosclerotic heart disease of native coronary artery without angina pectoris; J45.909 Unspecified asthma, uncomplicated; Z87.01 Personal history of pneumonia (recurrent); Z87.891 Personal history of nicotine dependence; Z88.1 Allergy status to other antibiotic agents; Z95.1 Presence of aortocoronary bypass graft; Z94.0 Kidney transplant status
CPT/HCPCS: 93005; 99285; 96360; 96361; 36415; 82553; 82962; 82550; 85025; 85610; 85730; 80053; 84484; 71045; 70450; 93010; J7050

== ENCOUNTER 2020-07-09 11:13 | Inpatient (IN) | payer MEDICARE ==
[2020-07-09 12:22] LABS: ABSOLUTE BASOPHILS # (AUTO) 0.1 10^3/uL (0.0-0.2); ABSOLUTE EOSINOPHILS # (AUTO) 0.1 10^3/uL (0.0-0.6); ABSOLUTE LYMPHOCYTES (AUTO) 1.7 10^3/uL (0.5-4.7); ABSOLUTE MONOCYTES (AUTO) 0.3 10^3/uL (0.1-1.4); ABSOLUTE NEUT (AUTO) 1.8 10^3/uL (1.7-8.2); BASOPHILS % (AUTO) 1.3 % (0-2); EOSINOPHILS % (AUTO) 1.4 % (0-6); HEMATOCRIT 42.1 % (37.9-51.0); HEMOGLOBIN 13.2 g/dL (13.5-17.0); MEAN CORPUSCULAR HEMOGLOBIN 29.3 pg (27.0-33.4); MEAN CORPUSCULAR HGB CONC 31.3 g/dL (32.0-36.0); MEAN CORPUSCULAR VOLUME 94 fl (80-97); MONOCYTES % (AUTO) 8.7 % (3-13); PLATELET COUNT 122 10^3/uL (150-450); SEGMENTED NEUTROPHILS % (AUTO) 46.6 % (42-78); TOTAL CELLS COUNTED % (AUTO) 100 %
[2020-07-09 12:24] LABS: ALKALINE PHOSPHATASE 164 U/L (38-126); ANION GAP 15 (5-19); ASPARTATE AMINO TRANSFERASE 22 U/L (17-59); BILIRUBIN,DIRECT 0.8 mg/dL (0.0-0.4); BILIRUBIN,TOTAL 1.1 mg/dL (0.2-1.3); BLOOD UREA NITROGEN 28 mg/dL (7-20); CALCIUM 9.6 mg/dL (8.4-10.2); CARBON DIOXIDE 27 mmol/L (22-30); CHLORIDE 100 mmol/L (98-107); GLUCOSE 116 mg/dL (75-110); POTASSIUM 3.6 mmol/L (3.6-5.0); TOTAL PROTEIN 9.9 g/dL (6.3-8.2)
[2020-07-09 12:25] LABS: ALCOHOL < 10 mg/dL (NONE DETECTED)
--- NOTE | 2020-07-09 13:21 | ER Document Report ---
ED General - General Chief Complaint: General Weakness Stated Complaint: ALTERED MENTAL STATUS Time Seen by Provider: 07/09/20 13:16 Primary Care Provider: KEEGAN GIRARD MD [Primary Care Provider] - Follow up as needed Notes: 64-year-old male who went to hemodialysis today and was found to be hypotensive so he was sent here. Patient is on Thursday, Thursday, Thursday hemodialysis through Dr. Hanson and has been for 3 years. States that he has felt somewhat dizzy and woozy for the past 1 to 2 days and it worsens with standing. Also complains of right shoulder and back pain for the past week. Denies chest pain, nausea, vomiting, diarrhea or abdominal pain. Denies any fevers or chills. States he actually feels better while lying here in bed. TRAVEL OUTSIDE OF THE [place] IN LAST 30 DAYS: No - Related Data Allergies/Adverse Reactions: sulfamethoxazole [From Bactrim] Allergy (Verified 07/09/20 11:53) trimethoprim [From Bactrim] Allergy (Verified 07/09/20 11:53) Past Medical History - General Information source: Patient - Social History Smoking Status: Former Smoker Chew tobacco use (# tins/day): Yes Frequency of alcohol use: None Drug Abuse: None Family History: CAD - Past Medical History Cardiac Medical History: Reports: Hx Congestive Heart Failure, Hx Coronary Artery Disease, Hx Heart Attack, Hx Hypercholesterolemia Denies: Hx Hypertension Pulmonary Medical History: Reports: Hx Asthma, Hx Bronchitis, Hx Pneumonia, Hx Intubation, Hx Respiratory Failure, Hx Sleep Apnea - On C Pap Denies: Hx COPD Neurological Medical History: Denies: Hx Cerebrovascular Accident, Hx Seizures Endocrine Medical History: Reports: Hx Diabetes Mellitus Type 2 Renal/ Medical History: Reports: Hx End Stage Renal Disease, Hx Hemodialysis GI Medical History: Reports: Hx Gastroesophageal Reflux Disease Musculoskeletal Medical History: Reports Hx Arthritis Psychiatric Medical History: Reports: Hx Depression - anxiety Infectious Medical History: Reports: Hx C-Diff Past Surgical History: Reports: Hx Cardiac Catheterization, Hx Cardiac Surgery - bipass x4, Hx Coronary Artery Bypass Graft - Quadruple bypass 2007, Hx Kidney (Renal Surgery) - RENAL TRANSPLANT, Hx Vascular Surgery - left AV fistual, Other - History peritoneal dialysis catheter placement and removal - Immunizations Immunizations up to date: Yes Hx Diphtheria, Pertussis, Tetanus Vaccination: No Hx Pneumococcal Vaccination: 08/16/16 Review of Systems - Review of Systems Constitutional: See HPI, Weakness. denies: Chills, Fever, Malaise EENT: No symptoms reported Cardiovascular: Dizziness, Lightheaded Genitourinary: No symptoms reported Musculoskeletal: See HPI, Back pain, Other - right shoulder pain -: Yes All other systems reviewed and negative Physical Exam - Vital signs Vitals: Temp Pulse Resp BP Pulse Ox 97.4 F 83 17 98/64 L 92 07/09/20 11:54 07/09/20 11:54 07/09/20 11:54 07/09/20 11:54 07/09/20 11:54 Interpretation: Hypotensive - Notes Notes: GENERAL: Sleeping, awakens easily, answers all questions well however will fall back to sleep quickly when I am not talking to him. No acute distress. HEAD: Normocephalic, atraumatic EYES: Pupils equal, round and reactive to light, extraocular movements intact. ENT: Oral mucosa moist, tongue midline. NECK: Full range of motion, supple, trachea midline. LUNGS: Clear to auscultation bilaterally, no wheezes, rales or rhonchi, no respiratory distress. HEART: Regular rate and rhythm, no murmurs, gallops, rubs. ABDOMEN: Soft, nontender, nondistended, bowel sounds present in all 4 quadrants. EXTREMITIES: Moves all 4 extremities spontaneously, 1+ pitting edema B/L LE to mid sosa, radial and dorsalis pedis pulses 1/4 bilaterally. No cyanosis. NEUROLOGICAL: Alert and oriented x3, normal speech. PSYCH: Normal mood, normal affect. SKIN: Warm, Dry, no rashes or lesions noted. Course - Re-evaluation Re-evalutation: 07/09/20 16:32 CBC shows mild anemia and slight low platelets, white blood cell count is normal, BUN and creatinine show chronic renal failure on dialysis, troponin is elevated but this is fairly consistent with prior numbers, no active chest pain, right shoulder pain is unlikely to be an anginal equivalent in this patient who had a recent negative stress test. Dr. Girard has discussed this case with Dr. Roper, feels this is not related to an end STEMI but rather is end-stage renal disease. proBNP is markedly elevated and chest x-ray shows effusion/opacities. Discussed case with Dr. Girard. Patient will be admitted for hypotension, CHF, end-stage renal disease. Likely be dialyzed and then reevaluated. Chest X-Ray 07/09/20 13:50 IMPRESSION: Stable enlarged cardiac silhouette, mild bilateral pleural effusions and bibasilar opacities, left greater than right. Head CT 07/09/20 14:42 IMPRESSION: 1. No significant interval changes since the prior examination dated 07/03/2020. No acute intracranial abnormality. 2. Chronic small vessel ischemic changes changes and mild atrophy. 3. Additional stable findings as above. EVIDENCE OF ACUTE STROKE: NO - Vital Signs Vital signs: Temp Pulse Resp BP Pulse Ox 97.4 F 83 17 98/64 L 92 07/09/20 12:07 07/09/20 11:54 07/09/20 11:54 07/09/20 11:54 07/09/20 12:06 - Laboratory Result Diagrams: 07/09/20 11:47 07/09/20 11:47 Laboratory results interpreted by me: 07/09/20 07/09/20 07/09/20 11:47 11:47 11:47 Hgb 13.2 L MCHC 31.3 L RDW 17.0 H Plt Count 122 L BUN 28 H Creatinine 3.98 H Est GFR ( Amer) 18 L Est GFR (MDRD) Non-Af 15 L Glucose 116 H Direct Bilirubin 0.8 H Alkaline Phosphatase 164 H NT-Pro-B Natriuret Pep Total Protein 9.9 H Lipase 16.1 L 07/09/20 11:47 Hgb MCHC RDW Plt Count BUN Creatinine Est GFR ( Amer) Est GFR (MDRD) Non-Af Glucose Direct Bilirubin Alkaline Phosphatase NT-Pro-B Natriuret Pep [id number] H Total Protein Lipase - EKG Interpretation by Me Additional EKG results interpreted by me: 07/09/20 13:21 EKG shows sinus rhythm at a rate of 82, first-degree AV block, 1 PVC, right axis deviation, T wave inversions noted in 2, 3, aVF, V2 through V4 with T wave flattening in V5 and V6, no ST segment elevations or depressions, rapid R wave progression per my interpretation. Discharge - Discharge Clinical Impression: ESRD on hemodialysis, Elevated troponin I level Hypotension Qualifiers: Hypotension type: unspecified hypotension type Qualified Code(s): I95.9 - Hypotension, unspecified Acute exacerbation of CHF (congestive heart failure) Qualifiers: Heart failure type: unspecified Qualified Code(s): I50.9 - Heart failure, unspecified Condition: Fair Disposition: ADMITTED INPATIENT Admitting Provider: Sh[facility] Unit Admitted: [facility] Referrals: KEEGAN GIRARD MD [Primary Care Provider] - Follow up as needed
[2020-07-09] MEDS ORDERED: NORMAL SALINE 500 ML IV ONE (13:53)
--- NOTE | 2020-07-09 14:33 | RADIOLOGY REPORT (SQ) ---
EXAM DESCRIPTION: CHEST 2 VIEWS IMAGES COMPLETED DATE/TIME: 07/09/2020 2:23 pm REASON FOR STUDY: weakness, missed dialysis, hypotension COMPARISON: 07/03/2020 EXAM PARAMETERS: NUMBER OF VIEWS: two views TECHNIQUE: Digital Frontal and Lateral radiographic views of the chest acquired. RADIATION DOSE: NA LIMITATIONS: none FINDINGS: LUNGS AND PLEURA: Small bilateral pleural effusions and bibasilar atelectasis, left greate r than right. No pneumothorax. MEDIASTINUM AND HILAR STRUCTURES: No masses or contour abnormalities. HEART AND VASCULAR STRUCTURES: Enlarged, stable. Vascular calcifications. BONES: No acute findings. HARDWARE: Right internal jugular hemodialysis catheter with tip at right atrium. Sternotomy and CABG hardware. OTHER: No other significant finding. IMPRESSION: Stable enlarged cardiac silhouette, mild bilateral pleural effusions and bibasilar opaci ties, left greater than right. TECHNICAL DOCUMENTATION: JOB ID: [id number] 2010 [employer]- All Rights Reserved Reading location - IP/workstation name: [email or web address]
[2020-07-09] MEDS ORDERED: LIDOCAINE 2% URO-JET 5 ML KIT MM ONE (14:42)
[2020-07-09 15:04] LABS: TROPONIN I 0.235 ng/mL
--- NOTE | 2020-07-09 16:10 | RADIOLOGY REPORT (SQ) ---
EXAM DESCRIPTION: CT HEAD WITHOUT IMAGES COMPLETED DATE/TIME: 07/09/2020 3:43 pm REASON FOR STUDY: confusion and missed dialysis COMPARISON: 07/03/2020 TECHNIQUE: Axial images acquired through the brain without intravenous contrast. Images reviewed wi th bone, brain and subdural windows. Additional sagittal and coronal reconstructions were generated. Images stored on PACS. All CT scanners at this facility use dose modulation, iterative reconstruction, and/or weight based d osing when appropriate to reduce radiation dose to as low as reasonably achievable (ALARA). [facility]: Dose Right [facility]: CareDose [facility]: Dose Right [facility]: Teradose 4D [facility]: Smart [employer] RADIATION DOSE: CT Rad equipment meets quality standard of care and radiation dose reduction techniq ues were employed. CTDIvol: 53.2 mGy. DLP: 964 mGy-cm. LIMITATIONS: None. FINDINGS: VENTRICLES: Stable prominent appearing ventricles commensurate with the sulci. The ciste rns are patent. CEREBRUM: Chronic mild small vessel ischemic changes. Stable appearance to the low area of attenuat ion in the region of the right hankins radiata. No masses. No hemorrhage. No midline shift. No rafi dence for acute infarction. Normal kruse/white matter differentiation. CEREBELLUM: No masses. No hemorrhage. No alteration of density. No evidence for acute infarction. EXTRAAXIAL SPACES: Mild atrophy. No fluid collections. No masses. ORBITS AND GLOBE: Bilateral lens replacements. No intra- or extraconal masses. Normal contour of g lobe without masses. CALVARIUM: No fracture. PARANASAL SINUSES: No fluid or mucosal thickening. SOFT TISSUES: No mass or hematoma. OTHER: Mild atherosclerotic changes involving the cavernous portion of the internal carotid arteries . Soft tissue scalp vascular calcifications. IMPRESSION: 1. No significant interval changes since the prior examination dated 07/03/2020. No acu te intracranial abnormality. 2. Chronic small vessel ischemic changes changes and mild atrophy. 3. Additional stable findings as above. EVIDENCE OF ACUTE STROKE: NO COMMENT: Quality ID # [id number]: Final reports with documentation of one or more dose reduction techniques (e.g., Automated exposure control, adjustment of the mA and/or kV according to patient size, use of iterative reconstruction technique) TECHNICAL DOCUMENTATION: JOB ID: [id number] 2010 [employer]- All Rights Reserved Reading location - IP/workstation name: [email or web address]
[2020-07-09] MEDS ORDERED: ACETAMINOPHEN 325 MG TABLET PO ONE (16:31)
[2020-07-09] MEDS ORDERED: ACETAMINOPHEN 325 MG TABLET PO PRN (17:10)
[2020-07-09] MEDS ORDERED: ONDANSETRON 4 MG TAB.RAPDIS PO PRN (17:10)
[2020-07-09] MEDS ORDERED: MAG HYDROX/AL HYDROX/SIMETH SUSP 30 ML UDCUP PO PRN (17:10)
[2020-07-09] MEDS ORDERED: IPRATROPIUM/ALBUTEROL 0.5-2.5 MG/3 ML AMPUL NEB PRN (17:10)
--- NOTE | 2020-07-09 17:17 | Progress Note ---
Provider Note Provider Note: pt seen exam in er pt is [id number] no complain
[2020-07-09] MEDS ORDERED: DEXTROSE 40% GEL 15 GM TUBE PO PRN ×2 (19:34)
[2020-07-09] MEDS ORDERED: GLUCAGON,HUMAN RECOMB 1 MG INJ IM PRN (19:34)
[2020-07-09] MEDS ORDERED: DEXTROSE 50%-WATER 25 GM/50 ML DISP.SYRIN IV PRN ×2 (19:34)
--- NOTE | 2020-07-09 19:38 | EKG REPORT ---
SEVERITY:- ABNORMAL ECG - SINUS RHYTHM VENTRICULAR PREMATURE COMPLEX FIRST DEGREE AV BLOCK NONSPECIFIC INTRAVENTRICULAR CONDUCTION DELAY PROBABLE INFERIOR INFARCT, AGE INDETERMINATE ANTERIOR INFARCT, AGE INDETERMINATE : Confirmed by: Samia Roper MD 09-Jul-2020 19:37:56
[2020-07-09 20:58] LABS: ANION GAP 12 (5-19); BLOOD UREA NITROGEN 30 mg/dL (7-20); CALCIUM 9.2 mg/dL (8.4-10.2); CARBON DIOXIDE 26 mmol/L (22-30); CHLORIDE 102 mmol/L (98-107); GLUCOSE 112 mg/dL (75-110); POTASSIUM 3.7 mmol/L (3.6-5.0)
[2020-07-09] MEDS: HEPARIN SOD (PORCINE) 5,000 UNIT/ML 1 ML VIAL SUBCUT SCH (21:40)
[2020-07-09] MEDS: INSULIN LISPRO 100 UNIT/ML 3 ML VIAL SUBCUT SCH (21:41)
[2020-07-09] MEDS ORDERED: (PENDING PHARMACY ID) (Bimatoprost [Lumigan 0.01% Oph Soln 2.5 Ml/Bottle] 1 DROP) OU SCH (22:00)
[2020-07-09] MEDS ORDERED: FAMOTIDINE 20 MG TABLET PO SCH (22:00)
[2020-07-09] MEDS: LATANOPROST 0.005% OPH SOLN 2.5 ML OU SCH (22:32)
[2020-07-10 04:52] LABS: ABSOLUTE LYMPHOCYTES (AUTO) 1.4 10^3/uL (0.5-4.7); ABSOLUTE MONOCYTES (AUTO) 0.4 10^3/uL (0.1-1.4); ABSOLUTE NEUT (AUTO) 2.1 10^3/uL (1.7-8.2); BASOPHILS % (AUTO) 0.8 % (0-2); EOSINOPHILS % (AUTO) 1.1 % (0-6); HEMATOCRIT 40.1 % (37.9-51.0); HEMOGLOBIN 12.7 g/dL (13.5-17.0); LYMPHOCYTES % (AUTO) 34.3 % (13-45); MEAN CORPUSCULAR HEMOGLOBIN 29.2 pg (27.0-33.4); MEAN CORPUSCULAR HGB CONC 31.6 g/dL (32.0-36.0); MEAN CORPUSCULAR VOLUME 92 fl (80-97); MONOCYTES % (AUTO) 11.2 % (3-13); PLATELET COUNT 104 10^3/uL (150-450); RED BLOOD COUNT 4.34 10^6/uL (4.35-5.55); SEGMENTED NEUTROPHILS % (AUTO) 52.6 % (42-78); TOTAL CELLS COUNTED % (AUTO) 100 %
[2020-07-10] MEDS: HEPARIN SOD (PORCINE) 5,000 UNIT/ML 1 ML VIAL SUBCUT SCH ×3 (05:33→22:56)
[2020-07-10] MEDS: INSULIN LISPRO 100 UNIT/ML 3 ML VIAL SUBCUT SCH (08:05)
[2020-07-10] MEDS: DOCUSATE SODIUM 100 MG/10 ML UDC PO SCH (09:07)
[2020-07-10] MEDS: FAMOTIDINE 20 MG TABLET PO SCH (09:08)
[2020-07-10] MEDS ORDERED: MIDODRINE HCL 5 MG TABLET PO SCH (10:00)
[2020-07-10] MEDS ORDERED: NORMAL SALINE 500 ML IV PRN (12:18)
[2020-07-10] MEDS: DOPAMINE HCL 800 MG/D5W 250 ML IV PRN (12:43)
[2020-07-10] MEDS: CEFTRIAXONE 1 GM/D5W RTU 1 GM/50 ML RTUPB IV SCH (13:03)
[2020-07-10] MEDS: MIDODRINE HCL 5 MG TABLET PO SCH ×2 (13:24→18:17)
--- NOTE | 2020-07-10 13:52 | PDOC H&P ---
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 multiple infection including the MRSA ESBL significant peripheral arterial disease and gangrene [place] went to the dialysis today but patient was found altered mental status and confused and according to the patient was confused for the last couple of days ton[place]ish nt is recently visited in the ER have a CT of the head and other work-up was all negative today's patient's blood pressure was in the lower end and the patient otherwise alert awake oriented x4 decided to admit to further evaluate to rule out any sepsis Patient have a significant history of the infections with the history of the recurrent C. difficile colitis and multiple antibiotic use in the past will wait for the culture and sensitivity because of so much antibiotic resistance and a C. difficile patient is currently alert awake oriented x4 in the ER denied any chest pain no short of breath patient's blood pressure is always running in the lower end Discussed nephrology Suggest to hold the dialysis today he will do it tomorrow\ Discussed with the cardiology Dr. Dumont which recently have a stress test done also went to see in [place] and suggest everything was stable and is stress t est was also stable to At this point we decided to admit the patient in IMCU for the altered mental status including the and infections and other possibilities Patient CT of the head was negative Past Medical History Cardiac Medical History: Reports: Congestive Heart Failure, Coronary Artery Disease, Myocardial Infarction, Hyperlipidema Denies: Hypertension Pulmonary Medical History: Reports: Asthma, Bronchitis, Intubation, Pneumonia, Respiratory Failure, Sleep Apnea - On C Pap Denies: Chronic Obstructive Pulmonary Disease (COPD) Neurological Medical History: Denies: Seizures Endocrine Medical History: Reports: Diabetes Mellitus Type 1, Diabetes Mellitus Type 2 Renal/ Medical History: Reports: End Stage Renal Disease GI Medical History: Reports: Gastroesophageal Reflux Disease Musculoskeltal Medical History: Reports: Arthritis Psychiatric Medical History: Reports: Depression Hematology: Denies: Anemia Infectious Medical History: Reports: Clostridium Difficile Past Surgical History Past Surgical History: Reports: Cardiac Catheterization, Coronary Artery Bypass Graft - Quadruple bypass 2007, Vascular Surgery - left AV fistual, Other - History peritoneal dialysis catheter placement and removal Social History Information Source: Patient Smoking Status: Unknown if Ever Smoked Electronic Cigarette use?: No Frequency of Alcohol Use: None Hx Recreational Drug Use: No Drugs: None Hx Prescription Drug Abuse: No Family History Family History: CAD Parental Family History Reviewed: Yes Children Family History Reviewed: Yes Sibling(s) Family History Reviewed.: Yes Medication/Allergy Home Medications: Albuterol Sulfate [Albuterol Sulfate Hfa] 2 puff IH Q4HP PRN 04/12/20 Bimatoprost [Lumigan 0.01% Oph Soln 2.5 ml/Bottle] 1 drop OU QHS 04/12/20 Pantoprazole Sodium [Protonix [address] Tablet] 40 mg PO DAILY #30 tablet.dr Midodrine HCl [Proamatine 5 mg Tablet] 5 mg PO TID #90 tablet 05/08/20 Allergies/Adverse Reactions: sulfamethoxazole [From Bactrim] Allergy (Verified 07/09/20 11:53) trimethoprim [From Bactrim] Allergy (Verified 07/09/20 11:53) Review of Systems Constitutional: ABSENT: chills, fever(s), headache(s), weight gain, weight loss Eyes: ABSENT: visual disturbances Ears: ABSENT: hearing changes Cardiovascular: ABSENT: chest pain, dyspnea on exertion, edema, orthropnea, palpitations Respiratory: ABSENT: cough, hemoptysis Gastrointestinal: ABSENT: abdominal pain, constipation, diarrhea, hematemesis, hematochezia, nausea, vomiting Genitourinary: ABSENT: dysuria, hematuria Musculoskeletal: ABSENT: joint swelling Integumentary: ABSENT: rash, wounds Neurological: ABSENT: abnormal gait, abnormal speech, confusion, dizziness, focal weakness, syncope Psychiatric: ABSENT: anxiety, depression, homidical ideation, suicidal ideation Endocrine: ABSENT: cold intolerance, heat intolerance, menstrual abnormalities, polydipsia, polyuria Hematologic/Lymphatic: ABSENT: easy bleeding, easy bruising, lymphadenopathy Physical Exam Vital Signs: Temp Pulse Resp BP Pulse Ox 97 F L 72 18 78/50 L 96 07/10/20 12:00 07/10/20 12:46 07/10/20 12:46 07/10/20 12:00 07/10/20 12:46 Intake & Output 07/09/20 07/10/20 07/11/20 06:59 06:59 06:59 Intake Total 500 Balance 500 Weight 54.4 kg General appearance: PRESENT: no acute distress, well-developed, well-nourished Head exam: PRESENT: atraumatic, normocephalic Eye exam: PRESENT: conjunctiva pink, EOMI, PERRLA. ABSENT: scleral icterus Ear exam: PRESENT: normal external ear exam Mouth exam: PRESENT: moist, tongue midline Neck exam: PRESENT: full ROM. ABSENT: carotid bruit, JVD, lymphadenopathy, thyromegaly Respiratory exam: PRESENT: clear to auscultation jolie Cardiovascular exam: PRESENT: RRR. ABSENT: diastolic murmur, rubs, systolic murmur Additional comments: Patient have a significant PAD GI/Abdominal exam: PRESENT: normal bowel sounds, soft. ABSENT: distended, guarding, mass, organolmegaly, rebound, tenderness Rectal exam: PRESENT: deferred Neurological exam: PRESENT: alert, awake, oriented to person, oriented to place, oriented to time, oriented to situation. ABSENT: motor sensory deficit Psychiatric exam: PRESENT: appropriate affect, normal mood. ABSENT: homicidal ideation, suicidal ideation Skin exam: PRESENT: dry, intact, warm. ABSENT: cyanosis, rash Results Laboratory Results: 07/10/20 03:46 07/09/20 20:23 07/09/20 07/09/20 07/09/20 11:47 18:50 20:23 WBC RBC Hgb Hct MCV MCH MCHC RDW Plt Count Seg Neutrophils % Sodium Cancelled 140.0 Potassium Cancelled 3.7 Chloride Cancelled 102 Carbon Dioxide Cancelled 26 Anion Gap Cancelled 12 BUN Cancelled 30 H Creatinine Cancelled 3.95 H Est GFR ( Amer) Cancelled 19 L Est GFR (Non-Af Amer) Cancelled Glucose Cancelled 112 H Calcium Cancelled 9.2 Magnesium Lipase 16.1 L 07/10/20 07/10/20 03:46 03:46 WBC 4.0 RBC 4.34 L Hgb 12.7 L Hct 40.1 MCV 92 MCH 29.2 MCHC 31.6 L RDW 17.0 H Plt Count 104 L Seg Neutrophils % 52.6 Sodium Potassium Chloride Carbon Dioxide Anion Gap BUN Creatinine Est GFR ( Amer) Est GFR (Non-Af Amer) Glucose Calcium Magnesium 1.8 Lipase 07/09/20 11:47 Troponin I 0.235 NT-Pro-B Natriuret Pep [id number] H Impressions: Chest X-Ray 07/09/20 13:50 IMPRESSION: Stable enlarged cardiac silhouette, mild bilateral pleural effusions and bibasilar opacities, left greater than right. Head CT 07/09/20 14:42 IMPRESSION: 1. No significant interval changes since the prior examination dated 07/03/2020. No acute intracranial abnormality. 2. Chronic small vessel ischemic changes changes and mild atrophy. 3. Additional stable findings as above. EVIDENCE OF ACUTE STROKE: NO Assessment & Plan - Diagnosis (1) Hypotension Qualifiers: Hypotension type: unspecified hypotension type Qualified Code(s): I95.9 - Hypotension, unspecified Is this a current diagnosis for this admission?: Yes Plan: Patient is currently on the dry side will hold the dialysis today electrolytes is all stable as per discussed with the Dr. Tavares patient always running in the low blood pressures will increase the Midrin 10 mg every 8 and also do some sepsis work-up (2) Confusion Is this a current diagnosis for this admission?: Yes Plan: Patient CT of the head is negative's We will get the sepsis work-up Discussed with the Dr. Tavares suggested get all the culture with a history of the MRSA and VRE will give her 1 g of vancomycin (3) ESRD on hemodialysis Is this a current diagnosis for this admission?: Yes Plan: Currently follow with the Dr. Tavares (4) Elevated troponin I level Is this a current diagnosis for this admission?: Yes (5) Anemia in chronic kidney disease (CKD) Qualifiers: Chronic kidney disease stage: on chronic dialysis Is this a current diagnosis for this admission?: Yes (6) Axonal GBS (Guillain-Houtzdale syndrome) Is this a current diagnosis for this admission?: Yes (7) Cerebrovascular disease Is this a current diagnosis for this admission?: Yes (8) Chronic diastolic (congestive) heart failure Is this a current diagnosis for this admission?: Yes (9) Coronary artery disease Qualifiers: Coronary Disease-Associated Artery/Lesion type: samish artery Associated angina: without angina Is this a current diagnosis for this admission?: Yes Plan: Patient's recent stress test was all negative per Dr. Dumont (10) Diabetes mellitus, type II Qualifiers: Diabetes mellitus custodial insulin use: without solutions delivery consultant use Is this a current diagnosis for this admission?: Yes Plan: Patient is currently hypoglycemia we currently hold the any medications patient is not taking normally at home and not in the hospital to (11) Gastroesophageal reflux disease Qualifiers: Is this a current diagnosis for this admission?: Yes (12) History of Clostridium difficile colitis Is this a current diagnosis for this admission?: Yes (13) History of kidney transplant Is this a current diagnosis for this admission?: Yes (14) Peripheral arterial disease Is this a current diagnosis for this admission?: Yes Plan: Patient is currently see [place] vascular surgery - Time Time Spent: 50 to 70 Minutes Medications reviewed and adjusted accordingly: Yes Anticipated Discharge Disposition: Home with Home Health Anticipated Discharge Timeframe: within 72 hours - Inpatient Certification Based on my medical assessment, after consideration of the patient's comorbidities, presenting symptoms, or acuity I expect that the services needed warrant INPATIENT care.: Yes I certify that my determination is in accordance with my understanding of Medicare's requirements for reasonable and necessary INPATIENT services [42 CFR 412.3e].: Yes Medical Necessity: Significant Comorbidiites Make Outpatient Treatment Too Risk y, Need Close Monitoring Due to Risk of Patient Decompensation, Need For IV Fluids, Need for IV Antibiotics Post Hospital Care: D/C S[employer] Developer Documentation - Plan Summary Plan Summary: Patient with significant comorbidity definitely need to rule out the hypertensions related any sepsis Start an IV antibiotic Consult the nephrology and cardiology with the significant comorbidity Patient's of both extremities have a chronic significant peripheral arterial disease we consult the general surgery to further evaluate Very extensive discussions with the patient's regarding the patient's current conditions with the significant comorbidity patient have a cardiac arrest couple of times in the past with nothing much they can offer in [place] with the significant comorbidity patient still have a poor prognosis overall as per discussed with the other renewable energy consultant we will continue to monitor patient is currently is a full code
[2020-07-10] MEDS ORDERED: DEXTROSE 50%-WATER 25 GM/50 ML DISP.SYRIN IV ONE (14:31)
[2020-07-10 15:04] LABS: ARTERIAL BLOOD H2CO3 3.93 mmol/L (1.05-1.35); ARTERIAL BLOOD HCO3 29.8 mmol/L (20-24); ARTERIAL BLOOD PO2 171.1 mmHg (80-100); ARTERIAL BLOOD TOTAL CO2 33.8 mmol/L (23-27)
--- NOTE | 2020-07-10 15:05 | RADIOLOGY REPORT (SQ) ---
EXAM DESCRIPTION: FOOT RIGHT 2 VIEWS IMAGES COMPLETED DATE/TIME: 07/10/2020 2:36 pm REASON FOR STUDY: Ankle and foot pain COMPARISON: 01/04/2019. NUMBER OF VIEWS: Two views. TECHNIQUE: AP and lateral radiographic images acquired of the right foot. LIMITATIONS: None. FINDINGS: MINERALIZATION: Severe diffuse demineralization. BONES: Apparent progressive destructive change involving the 2nd toe. Chronic changes in the 5th toe . SOFT TISSUES: No soft tissue swelling. No foreign body. OTHER: No other significant finding. IMPRESSION: SEVERE DIFFUSE DEMINERALIZATION. CHRONIC CHANGES IN THE 5TH TOE. PROGRESSIVE DESTRUCTI ON OF THE 2ND TOE. MAY BE DUE TO OSTEOMYELITIS. TECHNICAL DOCUMENTATION: JOB ID: [id number] 2010 [employer]- All Rights Reserved Reading location - IP/workstation name: [email or web address]
[2020-07-10 15:07] LABS: ARTERIAL BLOOD FIO2 1.5L
[2020-07-10 15:08] LABS: ARTERIAL BLOOD PH 6.98 (7.35-7.45)
[2020-07-10 15:09] LABS: ARTERIAL BLOOD PCO2 130.4 mmHg (35-45)
[2020-07-10] MEDS ORDERED: MIDAZOLAM 2 MG/2 ML INJ ONE (15:48)
[2020-07-10] MEDS ORDERED: ETOMIDATE INJ/PF 20 MG/10 ML SDV IV ONE ×2 (15:48→17:06)
[2020-07-10] MEDS ORDERED: MIDAZOLAM HCL 50 MG/100 ML RTUINJ ONE (16:08)
--- NOTE | 2020-07-10 16:18 | Progress Note ---
Provider Note Provider Note: Patient seen in the IMCU and Dr. Dumont in order the ABG which pH came back 6.98 and PCO2 was 130 and discussed with the reinforcer and patient was transferred to the ICU Discussed with the patient's Nancy regarding the patient's current conditions with the multiple comorbidity with the poor prognosis understand very well
[2020-07-10] MEDS ORDERED: PROPOFOL 1,000 MG/100 ML INFUS..BTL IV ONE (16:41)
[2020-07-10] MEDS ORDERED: PROPOFOL 1,000 MG/100 ML INFUS..BTL IV PRN (17:08)
--- NOTE | 2020-07-10 17:08 | RADIOLOGY REPORT (SQ) ---
EXAM DESCRIPTION: CHEST SINGLE VIEW IMAGES COMPLETED DATE/TIME: 07/10/2020 4:48 pm REASON FOR STUDY: ET Tube Placement and OG Placement COMPARISON: None. EXAM PARAMETERS: NUMBER OF VIEWS: One view. TECHNIQUE: Single frontal radiographic view of the chest acquired. RADIATION DOSE: NA LIMITATIONS: None. FINDINGS: LUNGS AND PLEURA: Persistent pleural effusions, left greater than right. Bibasilar airsp daniel disease, more so on the left. No pneumothorax. MEDIASTINUM AND HILAR STRUCTURES: No masses. Contour normal. HEART AND VASCULAR STRUCTURES: Cardiomegaly, unchanged finding. BONES: No acute findings. HARDWARE: Interval placement of endotracheal tube, tip is approximately 3.4 cm proximal to the justin a. Nasogastric tube, the tip overlies the body of the stomach. Right internal jugular dialysis cath eter, stable finding. Prior anterior median sternotomy and CABG. OTHER: No other significant finding. IMPRESSION: 1. Interval placement of endotracheal tube, tip is approximately 3.4 cm proximal to the joselito. Nasogastric tube with the tip overlying the body of the stomach. No evidence of pneumothor ax. 2. Lies, unchanged finding since the prior study dated 07/09/2020. TECHNICAL DOCUMENTATION: JOB ID: [id number] 2010 [employer]- All Rights Reserved Reading location - IP/workstation name: [email or web address]
--- NOTE | 2020-07-10 17:10 | EKG REPORT ---
SEVERITY:- ABNORMAL ECG - SINUS TACHYCARDIA FIRST DEGREE AV BLOCK PROBABLE LEFT ATRIAL ABNORMALITY NONSPECIFIC INTRAVENTRICULAR CONDUCTION DELAY INFERIOR INFARCT, AGE INDETERMINATE ANTEROLATERAL INFARCT, AGE INDETERMINATE : Confirmed by: Samia Roper MD 10-Jul-2020 17:09:42
--- NOTE | 2020-07-10 17:11 | EKG REPORT ---
SEVERITY:- ABNORMAL ECG - SINUS RHYTHM FIRST DEGREE AV BLOCK NONSPECIFIC INTRAVENTRICULAR CONDUCTION DELAY PROBABLE INFERIOR INFARCT, AGE INDETERMINATE EXTENSIVE ANTERIOR INFARCT, AGE INDETERMINATE : Confirmed by: Samia Roper MD 10-Jul-2020 17:09:48
--- NOTE | 2020-07-10 17:53 | RADIOLOGY REPORT (SQ) ---
EXAM DESCRIPTION: CT HEAD WITHOUT IMAGES COMPLETED DATE/TIME: 07/10/2020 5:29 pm REASON FOR STUDY: Evaluate for Stroke COMPARISON: 07/09/2020, 07/03/2020 and 04/12/2020. TECHNIQUE: Axial images acquired through the brain without intravenous contrast. Images reviewed wi th bone, brain and subdural windows. Additional sagittal and coronal reconstructions were generated. Images stored on PACS. All CT scanners at this facility use dose modulation, iterative reconstruction, and/or weight based d osing when appropriate to reduce radiation dose to as low as reasonably achievable (ALARA). [facility]: Dose Right [facility]: CareDose [facility]: Dose Right [facility]: Teradose 4D [facility]: Smart Mingle360 RADIATION DOSE: CT Rad equipment meets quality standard of care and radiation dose reduction techniq ues were employed. CTDIvol: 53.2 mGy. DLP: 1044 mGy-cm. LIMITATIONS: None. FINDINGS: VENTRICLES: Stable prominent appearing ventricles. The cisterns are patent. CEREBRUM: As on the prior examination, chronic mild small vessel ischemic changes. Stable appearanc e to the low attenuated area in the region of the right hankins radiata. No masses. No hemorrhage. N o midline shift. No evidence for acute infarction. CEREBELLUM: No masses. No hemorrhage. No alteration of density. No evidence for acute infarction. EXTRAAXIAL SPACES: Age related involutional change. No fluid collections. No masses. ORBITS AND GLOBE: No intra- or extraconal masses. Normal contour of globe without masses. CALVARIUM: No fracture. PARANASAL SINUSES: No fluid or mucosal thickening. SOFT TISSUES: No mass or hematoma. OTHER: Since the previous examination, interval development of a fluid collection within the posteri or nasopharynx which lies anterior and adjacent to the adenoids and extends into the visualized oroph arynx, coronal image 21, series 401, sagittal image 36, series 400. Endotracheal and nasogastric tub es are present which represent new findings. This finding may be on the basis of inflammatory change s, possibly due to reflux, as well as other etiologies. IMPRESSION: 1. No significant interval changes since the prior examinations dated 07/09/2020, 020 and 04/12/2020. No acute intracranial abnormality. 2. Chronic mild small vessel ischemic changes. Stable appearance to the low attenuated area in the region of the right hankins radiata. Further evaluation with MRI Brain maybe helpful to exclude acute changes. 3. New finding of a fluid collection within the posterior nasopharynx which lies anterior and adjace nt to the adenoids and extends into the oropharynx. Interval placement of endotracheal and nasogastr ic tube since the previous study dated 07/09/2020. This finding may be on an inflammatory basis, poss ibly due to reflux. Correlation suggested. EVIDENCE OF ACUTE STROKE: NO COMMENT: Quality ID # [id number]: Final reports with documentation of one or more dose reduction techniques (e.g., Automated exposure control, adjustment of the mA and/or kV according to patient size, use of iterative reconstruction technique) TECHNICAL DOCUMENTATION: JOB ID: [id number] 2010 [employer]- All Rights Reserved Reading location - IP/workstation name: [email or web address]
[2020-07-10] MEDS ORDERED: VANCOMYCIN HCL 1,000 MG in DEXTROSE 5%-WATER 250 ML IV ONE (18:00)
--- NOTE | 2020-07-10 18:08 | Operative Report ---
Bedside Procedure - History of Present Illness Indication for Procedure: Acute hypercarbic failure Provider: JAX GUERRA - Intubation Orotracheal Airway evaluation: Normal anatomy Mallampati Classification: Class 3 Medications: Etomidate, Versed Blade type: Luis Daniel Blade size: 3 Equipment used: Glidescope ETT size: 7.5 ETT secured at: Teeth ETT secured at (cm): 21 Post Intubation Xray: Yes Intubation Complications: No complications
[2020-07-10] MEDS: COLCHICINE 0.6 MG TABLET PO SCH (18:17)
--- NOTE | 2020-07-10 18:28 | CRITICAL CARE ADMISSION REPORT ---
HPI Date:: 07/10/20 Reason for ICU Reason:: Acute Respiratory Failure Admission Date/Time & PCP: Admission Date/Time: 07/09/20 16:54 Primary Care Provider: KEEGAN GIRARD MD HPI: from Dr. 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 significant peripheral arterial disease and gangrene [place] [facility] [place] [facility] admissions went to the dialysis today but patient was found altered mental status and confused and according to the patient was confused for the last couple of days patient is recently visited in the ER have a CT of the head and other work-up was all negative today's patient's blood pressure was in the lower end and the patient otherwise alert awake oriented x4 decided to admit to further evaluate to rule out any sepsis Patient have a significant history of the infections with the history of the recurrent C. difficile colitis and multiple antibiotic use in the past will wait for the culture and sensitivity because of so much antibiotic resistance and a C. difficile patient is currently alert awake oriented x4 in the ER denied any chest pain no short of breath patient's blood pressure is always running in the lower end Discussed nephrology Suggest to hold the dialysis today he will do it tomorrow\ Discussed with the cardiology Dr. Dumont which recently have a stress test done also went to see in [place] and suggest everything was stable and is stress test was also stable to At this point we decided to admit the patient in IMCU for the altered mental status including the and infections and other possibilities Patient CT of the head was negative 07/10 iwas asked to transfer the patient to the ICU in the wake of this mental status change and need for acute intubation and mechanical miriam tialtion - Diagnosis/Plan (1) Confusion Is this a current diagnosis for this admission?: Yes (2) Hypotension Qualifiers: Hypotension type: unspecified hypotension type Qualified Code(s): I95.9 - Hypotension, unspecified Is this a current diagnosis for this admission?: Yes Plan: The patient dfeveloped hypotension and was started on dopamine 5mcg/min on the floor. (3) Acute respiratory failure Qualifiers: Respiratory failure complication: hypercapnia Qualified Code(s): J96.02 - Acute respiratory failure with hypercapnia Is this a current diagnosis for this admission?: Yes Plan: The patient became more obtunded today requiring an [employer]ISION [employer]. An ABG was done showing acute hypercarbic respiratory failure. We arranged transfer to the ICU where thepatient was intuabted. His pH was 6.9 with a PAC02 of 130. (4) ESRD needing dialysis Is this a current diagnosis for this admission?: Yes Plan: The patient was at dialysis yesterday when he became altered and confused Past Medical History Cardiac Medical History: Reports: Congestive Heart Failure, Coronary Artery Disease, Myocardial Infarction, Hyperlipidema Denies: Hypertension Pulmonary Medical History: Reports: Asthma, Bronchitis, Intubation, Pneumonia, Respiratory Failure, Sleep Apnea - On C Pap Denies: Chronic Obstructive Pulmonary Disease (COPD) Neurological Medical History: Denies: Seizures Endocrine Medical History: Reports: Diabetes Mellitus Type 1, Diabetes Mellitus Type 2 Renal/ Medical History: Reports: End Stage Renal Disease GI Medical History: Reports: Gastroesophageal Reflux Disease Musculoskeltal Medical History: Reports: Arthritis Psychiatric Medical History: Reports: Depression Hematology: Denies: Anemia Infectious Medical History: Reports: Clostridium Difficile Past Surgical History Past Surgical History: Reports: Cardiac Catheterization, Coronary Artery Bypass Graft - Quadruple bypass 2007, Vascular Surgery - left AV fistual, Other - History peritoneal dialysis catheter placement and removal Social/Family History - Social History Smoking Status: Unknown if Ever Smoked Frequency of Alcohol Use: None Hx Recreational Drug Use: No Drugs: None Hx Prescription Drug Abuse: No - Medication/Allergies Home Medications: Albuterol Sulfate [Albuterol Sulfate Hfa] 2 puff IH Q4HP PRN 04/12/20 Bimatoprost [Lumigan 0.01% Oph Soln 2.5 ml/Bottle] 1 drop OU QHS 04/12/20 Pantoprazole Sodium [Protonix [address] Tablet] 40 mg PO DAILY #30 tablet.dr 04/30/20 Midodrine HCl [Proamatine 5 mg Tablet] 5 mg PO TID #90 tablet 05/08/20 Allergies/Adverse Reactions: sulfamethoxazole [From Bactrim] Allergy (Verified 07/09/20 11:53) trimethoprim [From Bactrim] Allergy (Verified 07/09/20 11:53) Physical Exam Vital Signs: Temp Pulse Resp BP Pulse Ox 97 F L 99 17 126/45 H 100 07/10/20 12:00 07/10/20 16:53 07/10/20 16:53 07/10/20 15:15 07/10/20 17:05 Intake & Output 07/09/20 07/10/20 07/11/20 06:59 06:59 06:59 Intake Total 500 50 Balance 500 50 Weight 54.4 kg Weight/Height Weight 54.4 kg Height 5 ft 7 in General appearance: PRESENT: no acute distress Head exam: PRESENT: atraumatic Eye exam: PRESENT: conjunctiva pink, EOMI, PERRLA Ear exam: PRESENT: normal external ear exam Mouth exam: PRESENT: dry mucosa Neck exam: ABSENT: JVD, lymphadenopathy, meningismus Respiratory exam: ABSENT: accessory muscle use - Decreased BS at the left base Laboratory/Radiographs Laboratory Results: 07/10/20 03:46 07/09/20 20:23 07/09/20 07/09/20 07/10/20 18:50 20:23 03:46 WBC 4.0 RBC 4.34 L Hgb 12.7 L Hct 40.1 MCV 92 MCH 29.2 MCHC 31.6 L RDW 17.0 H Plt Count 104 L Seg Neutrophils % 52.6 Carbonic Acid HCO3/H2CO3 Ratio ABG pH ABG pCO2 ABG pO2 ABG HCO3 ABG O2 Saturation ABG Base Excess FiO2 Sodium Cancelled 140.0 Potassium Cancelled 3.7 Chloride Cancelled 102 Carbon Dioxide Cancelled 26 Anion Gap Cancelled 12 BUN Cancelled 30 H Creatinine Cancelled 3.95 H Est GFR ( Amer) Cancelled 19 L Est GFR (Non-Af Amer) Cancelled Glucose Cancelled 112 H Calcium Cancelled 9.2 Magnesium 07/10/20 07/10/20 03:46 14:48 WBC RBC Hgb Hct MCV MCH MCHC RDW Plt Count Seg Neutrophils % Carbonic Acid 3.93 H HCO3/H2CO3 Ratio 7:1 ABG pH 6.98 L* ABG pCO2 130.4 H* ABG pO2 171.1 H ABG HCO3 29.8 H ABG O2 Saturation 98.0 ABG Base Excess -5.0 FiO2 1.5L Sodium Potassium Chloride Carbon Dioxide Anion Gap BUN Creatinine Est GFR ( Amer) Est GFR (Non-Af Amer) Glucose Calcium Magnesium 1.8 07/09/20 11:47 Troponin I 0.235 NT-Pro-B Natriuret Pep [id number] H Impressions: Foot X-Ray 07/10/20 00:00 IMPRESSION: SEVERE DIFFUSE DEMINERALIZATION. CHRONIC CHANGES IN THE 5TH TOE. PROGRESSIVE DESTRUCTION OF THE 2ND TOE. MAY BE DUE TO OSTEOMYELITIS. Chest X-Ray 07/10/20 16:17 IMPRESSION: 1. Interval placement of endotracheal tube, tip is approximately 3.4 cm proximal to the joselito. Nasogastric tube with the tip overlying the body of the stomach. No evidence of pneumothorax. 2. Lies, unchanged finding since the prior study dated 07/09/2020. Head CT 07/10/20 16:23 IMPRESSION: 1. No significant interval changes since the prior examinations dated 07/09/2020, 07/03/2020 and 04/12/2020. No acute intracranial abnormality. 2. Chronic mild small vessel ischemic changes. Stable appearance to the low attenuated area in the region of the right hankins radiata. Further evaluation with MRI Brain maybe helpful to exclude acute changes. 3. New finding of a fluid collection within the posterior nasopharynx which lies anterior and adjacent to the adenoids and extends into the oropharynx. Interval placement of endotracheal and nasogastric tube since the previous study dated 07/09/2020. This finding may be on an inflammatory basis, possibly due to reflux. Correlation suggested. EVIDENCE OF ACUTE STROKE: NO Critical Time Critical Time (minutes): 45 -: The care of a critically ill patient is dynamic. This note represents a static moment in the admission process. Orders and treatments may be given simultaneous ly and urgently, and time is not business process representative of the treatment process. This patient requires Critical Care secondary to life threatening organ or limb dysfunction. Without Critical Care services, the patient is at risk for increased mortality and morbidity.
[2020-07-10] MEDS ORDERED: MIDAZOLAM 2 MG/2 ML INJ IV ONE (19:00)
[2020-07-10] MEDS: LATANOPROST 0.005% OPH SOLN 2.5 ML OU SCH (22:57)
[2020-07-10 23:49] LABS: ARTERIAL BLOOD BASE EXCESS -0.7 mmol/L; ARTERIAL BLOOD H2CO3 0.82 mmol/L (1.05-1.35); ARTERIAL BLOOD O2 SATURATION 98.3 % (94-98); ARTERIAL BLOOD PCO2 27.1 mmHg (35-45); ARTERIAL BLOOD PH 7.51 (7.35-7.45); ARTERIAL BLOOD PO2 105.3 mmHg (80-100); ARTERIAL BLOOD TOTAL CO2 21.9 mmol/L (23-27)
[2020-07-10 23:51] LABS: ARTERIAL BLOOD FIO2 40%
--- NOTE | 2020-07-10 23:57 | PDOC CONSULTATION ---
Consultation-Blank Consultation: CARDIOLOGY PROGRESS NOTE by Dr. Samia Roper. Patient seen at 2 PM on 07/10/2020. 60 minutes spent as patient stabilized with patient. REASON FOR CONSULTATION: Patient with hypotension. Hence cardiology consulted. Consult REQUESTING PHYSICIAN: Dr. Girard. 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 The patient had some right-sided shoulder pain which appears to be noncardiac but no clear-cut anginal symptoms. The patient's blood pressure was low and hence Dr. Girard asked me to consult the patient. I have asked the nurses to start the patient on 5 mcg/kg/min of dopamine. This was due to early reported blood pressure of 61 systolic. When I saw the patient the patient very lethargic and very hard to arouse he did respond to painful stimuli. He was breathing very shallow. His blood Accu- Cheks showed a blood sugar of 102 but in spite of this I had given 50% dextrose 25 mL intravenously through the patient's nurse. The patient also had an ABG drawn by me and it came back with a pH of 6.98 a PCO2 of 130 and a PO2 of 130. Hence social services specialist was called and the patient was intubated due to acute hypercapnic respiratory failure. No other information is available due to patient's severely lethargic. The patient did show on exam and right facial droop which may be new and hence after intubation the patient did have a CT of the head. The patient is being transferred to ICU under the care of the social services specialist. Past Medical History Cardiac Medical History: Reports: Congestive Heart Failure, Coronary Artery Disease, Myocardial Infarction, Hyperlipidema Denies: Hypertension Pulmonary Medical History: Reports: Asthma, Bronchitis, Intubation, Pneumonia, Respiratory Failure, Sleep Apnea - On C Pap Denies: Chronic Obstructive Pulmonary Disease (COPD) Neurological Medical History: Denies: Seizures Endocrine Medical History: Reports: Diabetes Mellitus Type 2 Renal/ Medical History: Reports: End Stage Renal Disease GI Medical History: Reports: Gastroesophageal Reflux Disease Musculoskeltal Medical History: Reports: Arthritis Psychiatric Medical History: Reports: Depression Hematology: Denies: Anemia Infectious Medical History: Reports: Clostridium Difficile MEDICAL IMAGING TECHNICIAN: History of prior CVA. History of prior Guillain-Ventura syndrome. Past Surgical History Past Surgical History: Reports: Cardiac Catheterization, Coronary Artery Bypass Graft - Quadruple bypass 2007, Vascular Surgery - left AV fistual, Other - History peritoneal dialysis catheter placement and removal RESUSCITATION STATUS: The patient is a full code. His is a surrogate healthcare decision maker. The insists on the patient being a full code in spite of the explanation by Dr. Girard to her of the patient's very poor and guarded prognosis. Social History Information Source: Patient Smoking Status: Unknown if Ever Smoked Electronic Cigarette use?: No Frequency of Alcohol Use: None Hx Recreational Drug Use: No Drugs: None Hx Prescription Drug Abuse: No Family History Family History: CAD Parental Family History Reviewed: Yes Children Family History Reviewed: Yes Sibling(s) Family History Reviewed.: Yes Medication/Allergy Home Medications: Albuterol Sulfate [Albuterol Sulfate Hfa] 2 puff IH Q4HP PRN 04/12/20 Bimatoprost [Lumigan 0.01% Oph Soln 2.5 ml/Bottle] 1 drop OU QHS 04/12/20 Pantoprazole Sodium [Protonix [address] Tablet] 40 mg PO DAILY #30 tablet. 04/30/20 Midodrine HCl [Proamatine 5 mg Tablet] 5 mg PO TID #90 tablet 05/08/20 Allergies/Adverse Reactions: sulfamethoxazole [From Bactrim] Allergy (Verified 07/09/20 11:53) Current Medications Generic Name Dose Route Start Last Admin Trade Name Freq PRN Reason Stop Dose Admin Acetaminophen 650 mg 07/09/20 17:10 07/10/20 09:09 Tylenol 325 Mg Tablet PO 08/08/20 17:09 650 mg Q4HP PRN Administration FOR PAIN OR TEMP Al Hydrox/Mg Hydrox/Simethicone 15 ml 07/09/20 17:10 Maalox Plus Susp 30 Udcup PO 08/08/20 17:09 Q6HP PRN HEARTBURN Albuterol/Ipratropium 3 ml 07/09/20 17:10 07/10/20 16:53 Duoneb 3 Ml Ampul NEB 08/08/20 17:09 3 ml RTQ6HP PRN Administration SHORTNESS OF BREATH Colchicine 0.6 mg 07/10/20 18:00 07/10/20 18:17 Colcrys 0.6 Mg Tablet PO 08/09/20 17:59 Not Given BID OSCAR Docusate Sodium 100 mg 07/10/20 10:00 07/10/20 09:07 Colace Udc 100 Mg/10 Ml Oral Soln PO 08/09/20 09:59 100 mg DAILY OSCAR Administration Famotidine 20 mg 07/10/20 10:00 07/10/20 09:08 Pepcid 20 Mg Tablet PO 08/09/20 09:59 20 mg DAILY OSCAR Administration Heparin Sodium (Porcine) 5,000 unit 07/09/20 22:00 07/10/20 22:56 Heparin Inj 5,000 Units/Ml 1 Ml Vial SUBCUT 08/08/20 21:59 5,000 unit Q8 OSCAR Administration Heparin Sodium (Porcine) 3,600 unit 07/11/20 05:00 Heparin Inj 1,000 Unit/Ml 10 Ml Vial IV 07/11/20 23:59 .SPLIT B/N CATHETERS PRN THIS MED IS NOT "PRN" Ceftriaxone Sodium/Dextrose 1 gm in 50 mls @ 100 mls/hr 07/10/20 13:00 07/10/20 13:33 Rocephin Rtu 1 Gm/D5w 50 Ml Premix IV 07/17/20 12:59 Infused DAILY OSCAR Infusion Dopamine HCl/Dextrose 800 mg in 250 mls @ 5.1 mls/hr 07/10/20 12:20 07/10/20 23:16 Dopamine Rtu 800 Mg-D5w 250 Ml (Adult) Premix IV 08/09/20 12:19 5 mcg/kg/min CONTINUOUS PRN 5.1 mls/hr THIS MED IS NOT "PRN" Titration Protocol 5 MCG/KG/MIN Propofol 1,000 mg in 100 mls @ 6.528 mls/hr 07/10/20 18:52 Diprivan Rtu 1000 Mg/100 Ml Inf.Bottle IV 08/09/20 18:51 CONTINUOUS PRN THIS MED IS NOT "PRN" Protocol 20 MCG/KG/MIN Latanoprost 1 drop 07/09/20 22:00 07/10/20 22:57 Xalatan 0.005% Oph Soln 2.5 Ml OU 08/08/20 21:59 1 drop QHS OSCAR Administration Midodrine 10 mg 08/25/20 14:00 07/10/20 18:17 Proamatine 5 Mg Tablet PO 08/09/20 09:59 10 mg TID OSCAR Administration Ondansetron HCl 4 mg 07/09/20 17:10 Zofran Odt 4 Mg Tablet PO 08/08/20 17:09 Q4HP PRN FOR NAUSEA/VOMITING Discontinued Medications Generic Name Dose Route Start Last Admin Trade Name Freq PRN Reason Stop Dose Admin Acetaminophen 975 mg 07/09/20 16:31 07/09/20 18:36 Tylenol 325 Mg Tablet PO 07/09/20 16:32 Not Given NOW ONE Dextrose 12.5 gm 07/09/20 19:34 Dextrose Inj 50% Syringe (25 Gm/50 Ml) IV 08/08/20 19:33 PRN PRN FOR BG 50-69 IN ALERT PATIENT Protocol Dextrose 25 gm 07/09/20 19:34 Dextrose Inj 50% Syringe (25 Gm/50 Ml) IV 08/08/20 19:33 PRN PRN PER PROTOCOL Protocol Dextrose Confirm 07/10/20 14:31 07/10/20 14:32 Dextrose Inj 50% Syringe (25 Gm/50 Ml) Administered 07/10/20 14:32 25 gm Dose Administration 25 gm IV .STK-MED ONE Etomidate Confirm 07/10/20 15:48 07/10/20 18:17 Amidate Inj/Pf 20 Mg/10 Ml Sdv Administered 07/10/20 15:49 Not Given Dose 20 mg IV .STK-MED ONE Etomidate 20 mg 07/10/20 17:06 07/10/20 15:50 Amidate Inj/Pf 20 Mg/10 Ml Sdv IV 07/10/20 17:07 20 mg NOW ONE Administration Famotidine 20 mg 07/09/20 22:00 07/09/20 22:31 Pepcid 20 Mg Tablet PO 08/08/20 21:59 20 mg Q12 OSCAR Administration Glucagon 1 mg 07/09/20 19:34 Glucagen Inj 1 Mg Vial IM 08/08/20 19:33 PRN PRN Evaluate for BG < 70 Protocol Glucose 15 gm 07/09/20 19:34 Glutose 40% Gel 15 Gm Tube PO 08/08/20 19:33 PRN PRN FOR BG 50-69 IN ALERT PATIENT Protocol Glucose 30 gm 07/09/20 19:34 Glutose 40% Gel 15 Gm Tube PO 08/08/20 19:33 PRN PRN FOR BG < 50 IN ALERT PATIENT Protocol Sodium Chloride 500 mls @ 0 mls/hr 07/09/20 13:53 07/09/20 15:11 Nacl 0.9% 500 Ml Iv Soln IV 07/09/20 13:54 Infused NOW ONE Infusion Wide Open Sodium Chloride 500 mls @ 60 mls/hr 07/10/20 12:18 07/10/20 13:41 Nacl 0.9% 500 Ml Iv Soln IV 07/10/20 20:40 60 mls/hr CONTINUOUS PRN Administration THIS MED IS NOT "PRN" Vancomycin HCl 1,000 mg/ 250 mls @ 166.667 mls/hr 07/10/20 18:00 07/10/20 18:18 Dextrose IV 07/10/20 19:29 166.67 mls/hr CECILIO@1800 ONE 166.67 mls/hr Administration Midazolam HCl Confirm 07/10/20 16:08 07/10/20 18:17 Versed Rtu 50 Mg/100 Ml Premix Bag Administered 07/10/20 16:09 Not Given Dose 50 mg in 100 mls @ ud .ROUTE .STK-MED ONE Propofol Confirm 07/10/20 16:41 07/10/20 18:17 Diprivan Rtu 1000 Mg/100 Ml Inf.Bottle Administered 07/10/20 16:42 Not Given Dose 1,000 mg in 100 mls @ ud IV .STK-MED ONE Propofol 1,000 mg in 100 mls @ 1.632 mls/hr 07/10/20 17:08 07/10/20 18:00 Diprivan Rtu 1000 Mg/100 Ml Inf.Bottle IV 08/09/20 17:07 35 mcg/kg/min CONTINUOUS PRN 11.42 mls/hr THIS MED IS NOT "PRN" Titration Protocol 5 MCG/KG/MIN Insulin Human Lispro 0 - 12 unit 07/09/20 22:00 07/10/20 08:05 Humalog Insulin 100 Unit/1 Ml 3 Ml Vial SUBCUT 08/08/20 21:59 Not Given ACHS OSCAR Protocol Lidocaine HCl 5 ml 07/09/20 14:42 07/09/20 18:36 Xylocaine 2% Uro-Jet 5 Ml Kit MM 07/09/20 14:43 Not Given NOW ONE Midazolam HCl Confirm 07/10/20 15:48 07/10/20 18:16 Versed 2 Mg/2 Ml Inj Administered 07/10/20 15:49 2 mg Dose Administration 2 mg .ROUTE .STK-MED ONE Midazolam HCl 2 mg 07/10/20 19:00 07/10/20 19:51 Versed 2 Mg/2 Ml Inj IV 07/10/20 19:01 Not Given NOW ONE Midodrine 5 mg 07/10/20 10:00 07/10/20 09:07 Proamatine 5 Mg Tablet PO 08/09/20 09:59 5 mg TID OSCAR Administration REVIEW OF SYSTEMS: Not obtainable due to the patient's severely altered mental status. PHYSICAL EXAMINATION: The patient appears to be chronically ill and malnourished. He is very lethargic and responds only to painful stimuli. Selected Entries 07/10/20 07/10/20 07/10/20 13:00 14:00 14:45 Heart Rate ( 78 99 Monitors) Respiratory Rate Respiratory Depth Respiratory Pattern Blood Pressure 61/45 L 119/40 L Fraction of Inspired Oxygen (FIO2) 07/10/20 15:00 Heart Rate ( Monitors) Respiratory 37 H Rate Respiratory Normal Depth Respiratory Tachypnea Pattern Blood Pressure Fraction of 35 Inspired Oxygen (FIO2) On BiPAP 20/6 with a pressure support of 14 On examination the patient appears to be chronically ill and malnourished. He is also appears to be emaciated. HEAD: Is atraumatic normocephalic. EYES: Pupils equal reactive to light. ENT is negative. There is right facial droop present. NECK: Supple. There is no JVD. Carotids are equal there is no bruits. Lungs: Fairly clear. Heart S1-S2 is heard there is no S3 gallop. There is no S4 gallop. There is no rub. ABDOMEN: Soft nontender. There is no hepatosplenomegaly. Bowel sounds well heard. EXTREMITIES: Femorals are diminished. Leg pulses are diminished. There is no pedal edema there is wasting of the muscles of the lower extremities. MEDICAL IMAGING TECHNICIAN the patient is very lethargic arousable to noxious stimuli. Does seem to move all 4 extremities at times. PSYCHIATRIC not examined due to patient's current mental status. Labs- Entire Visit 0807/09/20 07/09/20 11:47 11:47 11:47 WBC 4.0 RBC 4.50 Hgb 13.2 L Hct 42.1 MCV 94 MCH 29.3 MCHC 31.3 L RDW 17.0 H Plt Count 122 L Lymph % (Auto) 42.0 Wallace % (Auto) 8.7 Eos % (Auto) 1.4 Baso % (Auto) 1.3 Absolute Neuts (auto) 1.8 Absolute Lymphs (auto) 1.7 Absolute Monos (auto) 0.3 Absolute Eos (auto) 0.1 Absolute Basos (auto) 0.1 Seg Neutrophils % 46.6 Carbonic Acid HCO3/H2CO3 Ratio ABG pH ABG pCO2 ABG pO2 ABG HCO3 ABG Total CO2 ABG O2 Saturation ABG Base Excess FiO2 Sodium 141.5 Potassium 3.6 Chloride 100 Carbon Dioxide 27 Anion Gap 15 BUN 28 H Creatinine 3.98 H Est GFR ( Amer) 18 L Est GFR (Non-Af Amer) Est GFR (MDRD) Non-Af 15 L Glucose 116 H POC Glucose Calcium 9.6 Magnesium 1.9 Total Bilirubin 1.1 Direct Bilirubin 0.8 H Neonat Total Bilirubin Not Reportable Neonat Direct Bilirubin Not Reportable Neonat Indirect Bili Not Reportable AST 22 ALT 5 Alkaline Phosphatase 164 H Troponin I NT-Pro-B Natriuret Pep Total Protein 9.9 H Albumin 4.0 Triglycerides Lipase 16.1 L EGFR Serum Alcohol < 10 07/09/20 07/09/20 07/09/20 11:47 12:26 18:50 WBC RBC Hgb Hct MCV MCH MCHC RDW Plt Count Lymph % (Auto) Wallace % (Auto) Eos % (Auto) Baso % (Auto) Absolute Neuts (auto) Absolute Lymphs (auto) Absolute Monos (auto) Absolute Eos (auto) Absolute Basos (auto) Seg Neutrophils % Carbonic Acid HCO3/H2CO3 Ratio ABG pH ABG pCO2 ABG pO2 ABG HCO3 ABG Total CO2 ABG O2 Saturation ABG Base Excess FiO2 Sodium Cancelled Potassium Cancelled Chloride Cancelled Carbon Dioxide Cancelled Anion Gap Cancelled BUN Cancelled Creatinine Cancelled Est GFR ( Amer) Cancelled Est GFR (Non-Af Amer) Cancelled Est GFR (MDRD) Non-Af Cancelled Glucose Cancelled POC Glucose 88 Calcium Cancelled Magnesium Total Bilirubin Direct Bilirubin Neonat Total Bilirubin Neonat Direct Bilirubin Neonat Indirect Bili AST ALT Alkaline Phosphatase Troponin I 0.235 NT-Pro-B Natriuret Pep 435260 H Total Protein Albumin Triglycerides Lipase EGFR Cancelled Serum Alcohol 07/09/20 07/09/20 07/10/20 20:23 20:53 03:46 WBC 4.0 RBC 4.34 L Hgb 12.7 L Hct 40.1 MCV 92 MCH 29.2 MCHC 31.6 L RDW 17.0 H Plt Count 104 L Lymph % (Auto) 34.3 Wallace % (Auto) 11.2 Eos % (Auto) 1.1 Baso % (Auto) 0.8 Absolute Neuts (auto) 2.1 Absolute Lymphs (auto) 1.4 Absolute Monos (auto) 0.4 Absolute Eos (auto) 0.0 Absolute Basos (auto) 0.0 Seg Neutrophils % 52.6 Carbonic Acid HCO3/H2CO3 Ratio ABG pH ABG pCO2 ABG pO2 ABG HCO3 ABG Total CO2 ABG O2 Saturation ABG Base Excess FiO2 Sodium 140.0 Potassium 3.7 Chloride 102 Carbon Dioxide 26 Anion Gap 12 BUN 30 H Creatinine 3.95 H Est GFR ( Amer) 19 L Est GFR (Non-Af Amer) Est GFR (MDRD) Non-Af 15 L Glucose 112 H POC Glucose 95 Calcium 9.2 Magnesium Total Bilirubin Direct Bilirubin Neonat Total Bilirubin Neonat Direct Bilirubin Neonat Indirect Bili AST ALT Alkaline Phosphatase Troponin I NT-Pro-B Natriuret Pep Total Protein Albumin Triglycerides Lipase EGFR Serum Alcohol 07/10/20 07/10/20 07/10/20 03:46 03:46 07:25 WBC RBC Hgb Hct MCV MCH MCHC RDW Plt Count Lymph % (Auto) Wallace % (Auto) Eos % (Auto) Baso % (Auto) Absolute Neuts (auto) Absolute Lymphs (auto) Absolute Monos (auto) Absolute Eos (auto) Absolute Basos (auto) Seg Neutrophils % Carbonic Acid HCO3/H2CO3 Ratio ABG pH ABG pCO2 ABG pO2 ABG HCO3 ABG Total CO2 ABG O2 Saturation ABG Base Excess FiO2 Sodium Potassium Chloride Carbon Dioxide Anion Gap BUN Creatinine Est GFR ( Amer) Est GFR (Non-Af Amer) Est GFR (MDRD) Non-Af Glucose POC Glucose 59 L Calcium Magnesium 1.8 Total Bilirubin Direct Bilirubin Neonat Total Bilirubin Neonat Direct Bilirubin Neonat Indirect Bili AST ALT Alkaline Phosphatase Troponin I NT-Pro-B Natriuret Pep Total Protein Albumin Triglycerides 140 Lipase EGFR Serum Alcohol 07/10/20 07/10/20 07/10/20 07:54 08:12 08:33 WBC RBC Hgb Hct MCV MCH MCHC RDW Plt Count Lymph % (Auto) Wallace % (Auto) Eos % (Auto) Baso % (Auto) Absolute Neuts (auto) Absolute Lymphs (auto) Absolute Monos (auto) Absolute Eos (auto) Absolute Basos (auto) Seg Neutrophils % Carbonic Acid HCO3/H2CO3 Ratio ABG pH ABG pCO2 ABG pO2 ABG HCO3 ABG Total CO2 ABG O2 Saturation ABG Base Excess FiO2 Sodium Potassium Chloride Carbon Dioxide Anion Gap BUN Creatinine Est GFR ( Amer) Est GFR (Non-Af Amer) Est GFR (MDRD) Non-Af Glucose POC Glucose 56 L 61 L 72 Calcium Magnesium Total Bilirubin Direct Bilirubin Neonat Total Bilirubin Neonat Direct Bilirubin Neonat Indirect Bili AST ALT Alkaline Phosphatase Troponin I NT-Pro-B Natriuret Pep Total Protein Albumin Triglycerides Lipase EGFR Serum Alcohol 07/10/20 07/10/20 07/10/20 08:55 11:47 14:30 WBC RBC Hgb Hct MCV MCH MCHC RDW Plt Count Lymph % (Auto) Wallace % (Auto) Eos % (Auto) Baso % (Auto) Absolute Neuts (auto) Absolute Lymphs (auto) Absolute Monos (auto) Absolute Eos (auto) Absolute Basos (auto) Seg Neutrophils % Carbonic Acid HCO3/H2CO3 Ratio ABG pH ABG pCO2 ABG pO2 ABG HCO3 ABG Total CO2 ABG O2 Saturation ABG Base Excess FiO2 Sodium Potassium Chloride Carbon Dioxide Anion Gap BUN Creatinine Est GFR ( Amer) Est GFR (Non-Af Amer) Est GFR (MDRD) Non-Af Glucose POC Glucose 82 91 102 Calcium Magnesium Total Bilirubin Direct Bilirubin Neonat Total Bilirubin Neonat Direct Bilirubin Neonat Indirect Bili AST ALT Alkaline Phosphatase Troponin I NT-Pro-B Natriuret Pep Total Protein Albumin Triglycerides Lipase EGFR Serum Alcohol 07/10/20 07/10/20 14:48 14:51 WBC RBC Hgb Hct MCV MCH MCHC RDW Plt Count Lymph % (Auto) Wallace % (Auto) Eos % (Auto) Baso % (Auto) Absolute Neuts (auto) Absolute Lymphs (auto) Absolute Monos (auto) Absolute Eos (auto) Absolute Basos (auto) Seg Neutrophils % Carbonic Acid 3.93 H HCO3/H2CO3 Ratio 7:1 ABG pH 6.98 L* ABG pCO2 130.4 H* ABG pO2 171.1 H ABG HCO3 29.8 H ABG Total CO2 33.8 H ABG O2 Saturation 98.0 ABG Base Excess -5.0 FiO2 1.5L Sodium Potassium Chloride Carbon Dioxide Anion Gap BUN Creatinine Est GFR ( Amer) Est GFR (Non-Af Amer) Est GFR (MDRD) Non-Af Glucose POC Glucose 196 H Calcium Magnesium Total Bilirubin Direct Bilirubin Neonat Total Bilirubin Neonat Direct Bilirubin Neonat Indirect Bili AST ALT Alkaline Phosphatase Troponin I NT-Pro-B Natriuret Pep Total Protein Albumin Triglycerides Lipase EGFR Serum Alcohol Chest X-Ray 07/09/20 13:50 IMPRESSION: Stable enlarged cardiac silhouette, mild bilateral pleural effusions and bibasilar opacities, left greater than right. Head CT 07/09/20 14:42 IMPRESSION: 1. No significant interval changes since the prior examination dated 07/03/2020. No acute intracranial abnormality. 2. Chronic small vessel ischemic changes changes and mild atrophy. 3. Additional stable findings as above. EVIDENCE OF ACUTE STROKE: NO Foot X-Ray 07/10/20 00:00 IMPRESSION: SEVERE DIFFUSE DEMINERALIZATION. CHRONIC CHANGES IN THE 5TH TOE. PROGRESSIVE DESTRUCTION OF THE 2ND TOE. MAY BE DUE TO OSTEOMYELITIS. Chest X-Ray 07/10/20 16:17 IMPRESSION: 1. Interval placement of endotracheal tube, tip is approximately 3.4 cm proximal to the joselito. Nasogastric tube with the tip overlying the body of the stomach. No evidence of pneumothorax. 2. Lies, unchanged finding since the prior study dated 07/09/2020. Head CT 07/10/20 16:23 IMPRESSION: 1. No significant interval changes since the prior examinations dated 07/09/2020, 07/03/2020 and 04/12/2020. No acute intracranial abnormality. 2. Chronic mild small vessel ischemic changes. Stable appearance to the low attenuated area in the region of the right hankins radiata. Further evaluation with MRI Brain maybe helpful to exclude acute changes. 3. New finding of a fluid collection within the posterior nasopharynx which lies anterior and adjacent to the adenoids and extends into the oropharynx. Interval placement of endotracheal and nasogastric tube since the previous study dated 07/09/2020. This finding may be on an inflammatory basis, possibly due to reflux. Correlation suggested. EVIDENCE OF ACUTE STROKE: NO EKG #1:. SINUS RHYTHM [VPC] . VENTRICULAR PREMATURE COMPLEX [1AVB] . FIRST DEGREE AV BLOCK [NIVCD] . NONSPECIFIC INTRAVENTRICULAR CONDUCTION DELAY [IMI26] . PROBABLE INFERIOR INFARCT, AGE INDETERMINATE - STMT - * ANTERIOR INFARCT, AGE INDETERMINATE EKG #2: SINUS TACHYCARDIA [1AVB] . FIRST DEGREE AV BLOCK [PLAA] . PROBABLE LEFT ATRIAL ABNORMALITY [NIVCD] . NONSPECIFIC INTRAVENTRICULAR CONDUCTION DELAY [IMI66] . INFERIOR INFARCT, AGE INDETERMINATE [ALIQ] . ANTEROLATERAL INFARCT, AGE INDETERMINATE IMPRESSION/RECOMMENDATION: 1. Acute hypercapnic respiratory failure. Patient intubated. 2. Hypotension: The patient has chronic hypotension in spite of midodrine. Continue dopamine. 3. End-stage renal disease on hemodialysis. 4. Possible osteomyelitis of the right foot. 5. Ischemic cardiomyopathy with moderately reduced LV ejection fraction. 6. Coronary artery disease, patient's troponin is elevated but this may be s econdary to supply demand mismatch rather than ME the cause is being hypotension, respiratory failure and renal failure. 7. Diabetes mellitus: Continue high-level antidiabetic treatment. 8. History of prior CVA. 9. History of prior Guyon Ventura syndrome s/p paraplegia as a residual effect. Medication reviewed. Medical regimen management plan discussed with attending provider and the social services specialist. Medical decision making is of high complexity. Patient's prognosis very poor and guarded. Will follow. 60 minutes spent as patient more than 50% time spent in direct patient care.
[2020-07-11] MEDS: PROPOFOL 1,000 MG/100 ML INFUS..BTL IV PRN ×2 (00:42→08:45)
[2020-07-11 04:14] LABS: HEMATOCRIT 43.3 % (37.9-51.0); HEMOGLOBIN 14.1 g/dL (13.5-17.0); MEAN CORPUSCULAR HEMOGLOBIN 29.1 pg (27.0-33.4); MEAN CORPUSCULAR HGB CONC 32.5 g/dL (32.0-36.0); MEAN CORPUSCULAR VOLUME 89 fl (80-97); PLATELET COUNT 105 10^3/uL (150-450); RED BLOOD COUNT 4.85 10^6/uL (4.35-5.55); RED CELL DISTRIBUTION WIDTH 16.6 % (11.5-14.0); WHITE BLOOD COUNT 4.3 10^3/uL (4.0-10.5)
[2020-07-11 04:31] LABS: ABSOLUTE LYMPHOCYTES# (MANUAL) 1.6 10^3/uL (0.5-4.7); ABSOLUTE MONOCYTES # (MANUAL) 0.2 10^3/uL (0.1-1.4); BASOPHILS % (MANUAL) 1 % (0-2); EOSINOPHILS % (MANUAL) 3 % (0-6); LYMPHOCYTES % (MANUAL) 38 % (13-45); MONOCYTES % (MANUAL) 4 % (3-13); SEGMENTED NEUTROPHILS % (MAN) 54 % (42-78); TOTAL CELLS COUNTED 100
[2020-07-11 04:35] LABS: ANISOCYTOSIS 1+; PLATELET COMMENT DECREASED; POIKILOCYTOSIS SLIGHT; TOXIC VACUOLATION PRESENT
[2020-07-11 04:36] LABS: ANION GAP 13 (5-19); BLOOD UREA NITROGEN 38 mg/dL (7-20); CALCIUM 8.9 mg/dL (8.4-10.2); CARBON DIOXIDE 20 mmol/L (22-30); CHLORIDE 104 mmol/L (98-107); GLUCOSE 78 mg/dL (75-110); POTASSIUM 3.9 mmol/L (3.6-5.0)
[2020-07-11 04:52] LABS: FREE T4 (FREE THYROXINE) 1.93 ng/dL (0.78-2.19)
[2020-07-11] MEDS ORDERED: HEPARIN SOD (PORCINE) 1,000 UNIT/ML 10 ML VIAL IV PRN (05:00)
[2020-07-11 05:06] LABS: THYROID STIMULATING HORMONE 1.95 uIU/mL (0.47-4.68)
[2020-07-11] MEDS: HEPARIN SOD (PORCINE) 5,000 UNIT/ML 1 ML VIAL SUBCUT SCH ×3 (05:45→21:36)
[2020-07-11] MEDS: CEFTRIAXONE 1 GM/D5W RTU 1 GM/50 ML RTUPB IV SCH (09:21)
[2020-07-11] MEDS: FAMOTIDINE 20 MG TABLET PO SCH (09:26)
[2020-07-11] MEDS: DOCUSATE SODIUM 100 MG/10 ML UDC PO SCH (09:26)
[2020-07-11] MEDS ORDERED: ACETAMINOPHEN 325 MG TABLET NG PRN (11:00)
[2020-07-11] MEDS ORDERED: ONDANSETRON 4 MG TAB.RAPDIS NG PRN (11:00)
[2020-07-11] MEDS ORDERED: MAG HYDROX/AL HYDROX/SIMETH SUSP 30 ML UDCUP NG PRN (11:00)
--- NOTE | 2020-07-11 11:43 | Progress Note ---
Provider Note Provider Note: CARDIOLOGY PROGRESS NOTE by Dr. Samia Roper on 07/11/2020. SUBJECTIVE: The patient is intubated and sedated. There is no atrial or ventricular arrhythmias seen. The nurse tried to dial down the dopamine but the patient became hypotensive and she had to dial the dopamine backup. At present the patient is on 5 mcg/kg/min. PHYSICAL EXAMINATION: The patient appears to be chronically ill and malnourished. Selected Entries 07/11/20 07/11/20 07/11/20 11:51 11:52 12:00 Pulse Rate 100 Heart Rate ( 104 Monitors) Respiratory 12 Rate Blood Pressure 123/80 Blood Pressure 128/81 H [Upper Arm] Blood Pressure 94 Mean Blood Pressure 96 Mean [Upper Arm ] Blood Pressure Supine Position [Upper Arm] O2 Sat by Pulse 100 Oximetry Fraction of 40 Inspired Oxygen (FIO2) HEAD: Is atraumatic normocephalic. EYES: Pupils equal reactive to light. ENT is negative. There is right facial droop present. NECK: Supple. There is no JVD. Carotids are equal there is no bruits. Lungs: Fairly clear. Heart S1-S2 is heard there is no S3 gallop. There is no S4 gallop. There is no rub. ABDOMEN: Soft nontender. There is no hepatosplenomegaly. Bowel sounds well heard. EXTREMITIES: Femorals are diminished. Leg pulses are diminished. There is no pedal edema there is wasting of the muscles of the lower extremities. LUMBER CHECKER the patient is very lethargic arousable to noxious stimuli. Does seem to move all 4 extremities at times. PSYCHIATRIC not examined due to patient's current mental status. Labs- All tests 24 hr 07/10/20 07/11/20 07/11/20 23:37 03:48 03:48 WBC 4.3 RBC 4.85 Hgb 14.1 Hct 43.3 MCV 89 MCH 29.1 MCHC 32.5 RDW 16.6 H Plt Count 105 L Lymph % (Auto) Not Reportable [place] % (Auto) Not Reportable Eos % (Auto) Not Reportable Baso % (Auto) Not Reportable Absolute Neuts (auto) Not Reportable Absolute Lymphs (auto) Not Reportable Absolute Monos (auto) Not Reportable Absolute Eos (auto) Not Reportable Absolute Basos (auto) Not Reportable Total Counted 100 Seg Neutrophils % Not Reportable Seg Neuts % (Manual) 54 Lymphocytes % (Manual) 38 Monocytes % (Manual) 4 Eosinophils % (Manual) 3 Basophils % (Manual) 1 Abs Neuts (Manual) 2.3 Abs Lymphs (Manual) 1.6 Abs Monocytes (Manual) 0.2 Absolute Eos (Manual) 0.1 Abs Basophils (Manual) 0.0 Toxic Vacuolation PRESENT Platelet Comment DECREASED Poikilocytosis SLIGHT Anisocytosis 1+ Carbonic Acid 0.82 L HCO3/H2CO3 Ratio 25:1 ABG pH 7.51 H ABG pCO2 27.1 L ABG pO2 105.3 H ABG HCO3 21.0 ABG Total CO2 21.9 L ABG O2 Saturation 98.3 H ABG Base Excess -0.7 FiO2 40% Sodium 136.7 L Potassium 3.9 Chloride 104 Carbon Dioxide 20 L Anion Gap 13 BUN 38 H Creatinine 4.41 H Est GFR ( Amer) 16 L Est GFR (MDRD) Non-Af 14 L Glucose 78 POC Glucose Calcium 8.9 Magnesium 1.8 Ammonia TSH Free T4 Cortisol PM Sample 07/11/20 07/11/20 07/11/20 03:48 04:37 05:50 WBC RBC Hgb Hct MCV MCH MCHC RDW Plt Count Lymph % (Auto) [place] % (Auto) Eos % (Auto) Baso % (Auto) Absolute Neuts (auto) Absolute Lymphs (auto) Absolute Monos (auto) Absolute Eos (auto) Absolute Basos (auto) Total Counted Seg Neutrophils % Seg Neuts % (Manual) Lymphocytes % (Manual) Monocytes % (Manual) Eosinophils % (Manual) Basophils % (Manual) Abs Neuts (Manual) Abs Lymphs (Manual) Abs Monocytes (Manual) Absolute Eos (Manual) Abs Basophils (Manual) Toxic Vacuolation Platelet Comment Poikilocytosis Anisocytosis Carbonic Acid HCO3/H2CO3 Ratio ABG pH ABG pCO2 ABG pO2 ABG HCO3 ABG Total CO2 ABG O2 Saturation ABG Base Excess FiO2 Sodium Potassium Chloride Carbon Dioxide Anion Gap BUN Creatinine Est GFR ( Amer) Est GFR (MDRD) Non-Af Glucose POC Glucose 77 66 L Calcium Magnesium Ammonia TSH 1.95 Free T4 1.93 Cortisol PM Sample 07/11/20 07/11/20 07/11/20 11:39 15:45 15:45 WBC RBC Hgb Hct MCV MCH MCHC RDW Plt Count Lymph % (Auto) [place] % (Auto) Eos % (Auto) Baso % (Auto) Absolute Neuts (auto) Absolute Lymphs (auto) Absolute Monos (auto) Absolute Eos (auto) Absolute Basos (auto) Total Counted Seg Neutrophils % Seg Neuts % (Manual) Lymphocytes % (Manual) Monocytes % (Manual) Eosinophils % (Manual) Basophils % (Manual) Abs Neuts (Manual) Abs Lymphs (Manual) Abs Monocytes (Manual) Absolute Eos (Manual) Abs Basophils (Manual) Toxic Vacuolation Platelet Comment Poikilocytosis Anisocytosis Carbonic Acid HCO3/H2CO3 Ratio ABG pH ABG pCO2 ABG pO2 ABG HCO3 ABG Total CO2 ABG O2 Saturation ABG Base Excess FiO2 Sodium Potassium Chloride Carbon Dioxide Anion Gap BUN Creatinine Est GFR ( Amer) Est GFR (MDRD) Non-Af Glucose POC Glucose 52 L Calcium Magnesium Ammonia Cancelled TSH Free T4 Cortisol PM Sample Cancelled 07/11/20 07/11/20 07/11/20 17:55 18:59 18:59 WBC RBC Hgb Hct MCV MCH MCHC RDW Plt Count Lymph % (Auto) [place] % (Auto) Eos % (Auto) Baso % (Auto) Absolute Neuts (auto) Absolute Lymphs (auto) Absolute Monos (auto) Absolute Eos (auto) Absolute Basos (auto) Total Counted Seg Neutrophils % Seg Neuts % (Manual) Lymphocytes % (Manual) Monocytes % (Manual) Eosinophils % (Manual) Basophils % (Manual) Abs Neuts (Manual) Abs Lymphs (Manual) Abs Monocytes (Manual) Absolute Eos (Manual) Abs Basophils (Manual) Toxic Vacuolation Platelet Comment Poikilocytosis Anisocytosis Carbonic Acid HCO3/H2CO3 Ratio ABG pH ABG pCO2 ABG pO2 ABG HCO3 ABG Total CO2 ABG O2 Saturation ABG Base Excess FiO2 Sodium Potassium Chloride Carbon Dioxide Anion Gap BUN Creatinine Est GFR ( Amer) Est GFR (MDRD) Non-Af Glucose POC Glucose 74 Calcium Magnesium Ammonia < 8.7 L TSH Free T4 Cortisol PM Sample 7.69 Chest X-Ray 07/09/20 13:50 IMPRESSION: Stable enlarged cardiac silhouette, mild bilateral pleural effusions and bibasilar opacities, left greater than right. Head CT 07/09/20 14:42 IMPRESSION: 1. No significant interval changes since the prior examination dated 07/03/2020. No acute intracranial abnormality. 2. Chronic small vessel ischemic changes changes and mild atrophy. 3. Additional stable findings as above. EVIDENCE OF ACUTE STROKE: NO Foot X-Ray 07/10/20 00:00 IMPRESSION: SEVERE DIFFUSE DEMINERALIZATION. CHRONIC CHANGES IN THE 5TH TOE. PROGRESSIVE DESTRUCTION OF THE 2ND TOE. MAY BE DUE TO OSTEOMYELITIS. Chest X-Ray 07/10/20 16:17 IMPRESSION: 1. Interval placement of endotracheal tube, tip is approximately 3.4 cm proximal to the joselito. Nasogastric tube with the tip overlying the body of the stomach. No evidence of pneumothorax. 2. Lies, unchanged finding since the prior study dated 07/09/2020. Head CT 07/10/20 16:23 IMPRESSION: 1. No significant interval changes since the prior examinations dated 07/09/2020, 07/03/2020 and 04/12/2020. No acute intracranial abnormality. 2. Chronic mild small vessel ischemic changes. Stable appearance to the low attenuated area in the region of the right hankins radiata. Further evaluation with MRI Brain maybe helpful to exclude acute changes. 3. New finding of a fluid collection within the posterior nasopharynx which lies anterior and adjacent to the adenoids and extends into the oropharynx. Interval placement of endotracheal and nasogastric tube since the previous study dated 07/09/2020. This finding may be on an inflammatory basis, possibly due to reflux. Correlation suggested. EVIDENCE OF ACUTE STROKE: NO IMPRESSION/RECOMMENDATION: 1. Acute hypercapnic respiratory failure. Patient intubated. 2. Hypotension: The patient has chronic hypotension in spite of midodrine. Continue dopamine. Cannot exclude sepsis as a cause of the patient's hypert ension 3. End-stage renal disease on hemodialysis. 4. Possible osteomyelitis of the right foot. Recommend antibiotics. 5. Ischemic cardiomyopathy with moderately reduced LV ejection fraction. 6. Coronary artery disease, patient's troponin is elevated but this may be secondary to supply demand mismatch rather than NC the cause is being hypotension, respiratory failure and renal failure. 7. Diabetes mellitus: Continue high-level antidiabetic treatment. 8. History of prior CVA. 9. 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 Medications reviewed. Medical regimen management plan discussed with attending provider on the case. Medical decision making is of high complexity. 40 minutes spent as patient with more than 50% time spent in direct patient care. Will follow.
[2020-07-11] MEDS ORDERED: DEXTROSE 50%-WATER 25 GM/50 ML DISP.SYRIN IV ONE ×2 (11:47→11:48)
--- NOTE | 2020-07-11 14:07 | PDOC CONSULTATION ---
Consultation Consult Date: 07/11/20 Provider Consulted: Goyo ZIMMERMAN Consult reason:: ESRD in shock for HD. 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 coli, History of recurrent C. difficile colitis, history of sudden and multiple cardiac arrest in the past, history of chronic troponin elevation, history of chronic hypotension on midodrine, history of peripheral vascular disease with signs of apparent early gangrene of toes, patient still a full code as per discussions that Dr. Girard has had with the patient as well as with his was transferred from [facility] due to altered mental status and acute on chronic hypotension. Patient has been dialyzing through an IJ catheter but there was no evidences of any exit site infection. Patient has been progressively going downhill especially over the last 1 month. Patient gradually has become quite debilitated and rather cachectic over the last month or so. Poor intake. Evaluations later on revealed the patient was in hypercarbic respiratory failure with a PCO2 around 130 and he soon went into respiratory failure was intubated and then transferred to the ICU. Chest x-ray showed bilateral pleural effusion left more than right. Currently being seen while undergoing dialysis in the ICU. His blood pressure is tenuous and he has been put on dopamine drip at 5 mics but still not enough to sustain steady hemodialysis. Medications were reviewed. Dialysis orders were reviewed with the treating dialysis nurse. Past Medical History Cardiac Medical History: Reports: CHF-Diastolic, Coronary Artery Disease, Hyperlipidemia, Myocardial Infarction Cardiac History Note: Chronic hypotension Pulmonary Medical History: Reports: Asthma, Bronchitis, Intubation, Pneumonia, Respiratory Failure, Sleep Apnea - On C Pap Denies: Chronic Obstructive Pulmonary Disease (COPD) Neurological Medical History: Denies: Seizures Endocrine Medical History: Reports: Diabetes Mellitus Type 2 Complications of Diabetes: Reports: Nephropathy Renal/ Medical History: Reports: End Stage Renal Disease, Secondary Hyperparathyroidism GI Medical History: Reports: Gastroesophageal Reflux Disease Musculoskeltal Medical History: Reports: Arthritis Psychiatric Medical History: Reports: Depression Infectious Medical History: Reports: Clostridium Difficile, Methicillin-resist Staph Aureus, Vancomycin-resistant Enterococci, Other Hematology Medical History: Reports Anemia of Chronic Kidney Disease Past Surgical History Past Surgical History: Reports: Cardiac Catheterization, Coronary Artery Bypass Graft - Quadruple bypass 2007, Vascular Surgery - left AV fistual, Other - History peritoneal dialysis catheter placement and removal Social History Smoking Status: Unknown if Ever Smoked Electronic Cigarette use?: No Frequency of Alcohol Use: None Hx Recreational Drug Use: No Drugs: None Hx Prescription Drug Abuse: No Family History Parental Family History Reviewed: No - Negative for ESRD Children Family History Reviewed: No Sibling(s) Family History Reviewed.: No Medication/Allergy Home Medications: Albuterol Sulfate [Albuterol Sulfate Hfa] 2 puff IH Q4HP PRN 04/12/20 Bimatoprost [Lumigan 0.01% Oph Soln 2.5 ml/Bottle] 1 drop OU QHS 04/12/20 Pantoprazole Sodium [Protonix [address] Tablet] 40 mg PO DAILY #30 tablet.dr 04/30/20 Midodrine HCl [Proamatine 5 mg Tablet] 5 mg PO TID #90 tablet 05/08/20 Allergies/Adverse Reactions: sulfamethoxazole [From Bactrim] Allergy (Verified 07/09/20 11:53) trimethoprim [From Bactrim] Allergy (Verified 07/09/20 11:53) Review of Systems ROS unobtainable: Due to endotracheal tube - Chart review was done and discussions were done with Dr. Girard/sewing machine bobbin winder/treating nurse. Physical Exam Vital Signs: Temp Pulse Resp BP Pulse Ox 98.1 F 100 12 128/81 H 100 07/11/20 08:00 07/11/20 11:51 07/11/20 11:51 07/11/20 11:51 07/11/20 11:51 Intake & Output 07/10/20 07/11/20 07/12/20 06:59 06:59 06:59 Intake Total 500 1018 131 Output Total 0 0 Balance 500 1018 131 Weight 54.4 kg 55.6 kg Exam: Remains intubated and sedated. Eye exam: PRESENT: EOMI, PERRLA. ABSENT: scleral icterus Ear exam: PRESENT: normal external ear exam Neck exam: ABSENT: meningismus, tenderness, thyromegaly, tracheal deviation Respiratory exam: PRESENT: clear to auscultation jolie, decreased breath sounds. ABSENT: crackles Cardiovascular exam: PRESENT: +S1, +S2 GI/Abdominal exam: PRESENT: normal bowel sounds, soft. ABSENT: organomegaly, tenderness Extremities exam: ABSENT: pedal edema Skin exam: ABSENT: abrasion, erythema, mottled, rash Results Laboratory Results: 07/11/20 03:48 07/11/20 03:48 07/10/20 07/10/20 07/10/20 03:46 14:48 23:37 WBC RBC Hgb Hct MCV MCH MCHC RDW Plt Count Seg Neutrophils % Carbonic Acid 3.93 H 0.82 L HCO3/H2CO3 Ratio 7:1 25:1 ABG pH 6.98 L* 7.51 H ABG pCO2 130.4 H* 27.1 L ABG pO2 171.1 H 105.3 H ABG HCO3 29.8 H 21.0 ABG O2 Saturation 98.0 98.3 H ABG Base Excess -5.0 -0.7 FiO2 1.5L 40% Sodium Potassium Chloride Carbon Dioxide Anion Gap BUN Creatinine Est GFR ( Amer) Glucose Calcium Magnesium Triglycerides 140 TSH Free T4 07/11/20 07/11/20 07/11/20 03:48 03:48 03:48 WBC 4.3 RBC 4.85 Hgb 14.1 Hct 43.3 MCV 89 MCH 29.1 MCHC 32.5 RDW 16.6 H Plt Count 105 L Seg Neutrophils % Not Reportable Carbonic Acid HCO3/H2CO3 Ratio ABG pH ABG pCO2 ABG pO2 ABG HCO3 ABG O2 Saturation ABG Base Excess FiO2 Sodium 136.7 L Potassium 3.9 Chloride 104 Carbon Dioxide 20 L Anion Gap 13 BUN 38 H Creatinine 4.41 H Est GFR ( Amer) 16 L Glucose 78 Calcium 8.9 Magnesium 1.8 Triglycerides TSH 1.95 Free T4 1.93 07/09/20 11:47 Troponin I 0.235 NT-Pro-B Natriuret Pep [id number] H Impressions: Foot X-Ray 07/10/20 00:00 IMPRESSION: SEVERE DIFFUSE DEMINERALIZATION. CHRONIC CHANGES IN THE 5TH TOE. PROGRESSIVE DESTRUCTION OF THE 2ND TOE. MAY BE DUE TO OSTEOMYELITIS. Chest X-Ray 07/10/20 16:17 IMPRESSION: 1. Interval placement of endotracheal tube, tip is approximately 3.4 cm proximal to the joselito. Nasogastric tube with the tip overlying the body of the stomach. No evidence of pneumothorax. 2. Lies, unchanged finding since the prior study dated 07/09/2020. Head CT 07/10/20 16:23 IMPRESSION: 1. No significant interval changes since the prior examinations dated 07/09/2020, 07/03/2020 and 04/12/2020. No acute intracranial abnormality. 2. Chronic mild small vessel ischemic changes. Stable appearance to the low attenuated area in the region of the right hankins radiata. Further evaluation with MRI Brain maybe helpful to exclude acute changes. 3. New finding of a fluid collection within the posterior nasopharynx which lies anterior and adjacent to the adenoids and extends into the oropharynx. Interval placement of endotracheal and nasogastric tube since the previous study dated 07/09/2020. This finding may be on an inflammatory basis, possibly due to reflux. Correlation suggested. EVIDENCE OF ACUTE STROKE: NO Assessment & Plan - Diagnosis (1) ESRD on hemodialysis Is this a current diagnosis for this admission?: Yes Plan: Patient currently undergoing dialysis. However given his hypotension in spite of max dose of dopamine at 5 mics per kilogram blood pressure is struggling. Needs other add on pressors. We will plan to prime with 500 to a liter of fluid as patient clinically dry. We will dialyze him for a couple of hours without removal of any fluid. Patient may require the addition of further pressors like Levophed. Dialysis orders were reviewed with treating dialysis nurse. This patient is extremely critical and given his multiple complex comorbidities he has a guarded prognosis. (2) Hypotension Qualifiers: Hypotension type: unspecified hypotension type Qualified Code(s): I95.9 - Hypotension, unspecified Is this a current diagnosis for this admission?: Yes Plan: Currently on 5 mics of dopamine. Will need add on pressors to sustain blood pressure to continue dialysis. Otherwise he needs to be transferred for CRRT. (3) Acute respiratory failure Qualifiers: Respiratory failure complication: hypercapnia Qualified Code(s): J96.02 - Acute respiratory failure with hypercapnia Is this a current diagnosis for this admission?: Yes Plan: Hypercarbic respiratory failure. Differential diagnosis for this includes generalized debility/Guillain-Ventura/bilateral pleural effusions/occult consolidation/Possible aspiration.Currently intubated and sedated. 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 (6) History of Clostridium difficile infection Plan: Status quo. Patient usually goes into developing c.diff once he is being treated with antibiotics for other infections. Monitor for resurgence of this. 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 (8) Peripheral vascular disease Plan: Development of early gangrene of his toes with history of osteomyelitis in the past. (9) Recurrent urinary tract infection Plan: Monitor for this. If his white count especially is going high he might need to have an ED catheter to test his urine for possible infections.
[2020-07-11] MEDS: MIDODRINE HCL 5 MG TABLET NG SCH ×2 (14:47→18:30)
--- NOTE | 2020-07-11 15:09 | PDOC CRITICAL CARE PROG REPORT ---
General Date:: 07/11/20 ICU Day:: 2 Ventilator Day:: 2 Hospital Day:: 3 Resuscitation Status: Full Code Reason for ICU Addmission:: Acute Respiratory Failure Physical Exam Vital Signs: Temp Pulse Resp BP Pulse Ox 98.1 F 93 13 132/67 H 100 07/11/20 10:00 07/11/20 14:00 07/11/20 14:00 07/11/20 14:00 07/11/20 14:00 Intake & Output 07/10/20 07/11/20 07/12/20 06:59 06:59 06:59 Intake Total 500 1018 1698 Output Total 0 500 Balance 500 1018 1198 Weight 54.4 kg 55.6 kg Weight/Height Weight 55.6 kg Height 5 ft 7 in General appearance: PRESENT: no acute distress Head exam: PRESENT: atraumatic, normocephalic Eye exam: PRESENT: conjunctiva pink Ear exam: PRESENT: normal external ear exam Mouth exam: PRESENT: moist Neck exam: PRESENT: full ROM. ABSENT: JVD, lymphadenopathy, meningismus, tenderness, tracheal deviation Respiratory exam: ABSENT: accessory muscle use, unlabored Cardiovascular exam: PRESENT: RRR Pulses: PRESENT: normal carotid pulses, other - I do not palpate any pulses below the politeals bilaterally GI/Abdominal exam: PRESENT: soft. ABSENT: tenderness Laboratory/Radiographs Laboratory Results: 07/11/20 03:48 07/11/20 03:48 07/10/20 07/10/20 07/10/20 03:46 14:48 23:37 WBC RBC Hgb Hct MCV MCH MCHC RDW Plt Count Seg Neutrophils % Carbonic Acid 3.93 H 0.82 L HCO3/H2CO3 Ratio 7:1 25:1 ABG pH 6.98 L* 7.51 H ABG pCO2 130.4 H* 27.1 L ABG pO2 171.1 H 105.3 H ABG HCO3 29.8 H 21.0 ABG O2 Saturation 98.0 98.3 H ABG Base Excess -5.0 -0.7 FiO2 1.5L 40% Sodium Potassium Chloride Carbon Dioxide Anion Gap BUN Creatinine Est GFR ( Amer) Glucose Calcium Magnesium Triglycerides 140 TSH Free T4 07/11/20 07/11/20 07/11/20 03:48 03:48 03:48 WBC 4.3 RBC 4.85 Hgb 14.1 Hct 43.3 MCV 89 MCH 29.1 MCHC 32.5 RDW 16.6 H Plt Count 105 L Seg Neutrophils % Not Reportable Carbonic Acid HCO3/H2CO3 Ratio ABG pH ABG pCO2 ABG pO2 ABG HCO3 ABG O2 Saturation ABG Base Excess FiO2 Sodium 136.7 L Potassium 3.9 Chloride 104 Carbon Dioxide 20 L Anion Gap 13 BUN 38 H Creatinine 4.41 H Est GFR ( Amer) 16 L Glucose 78 Calcium 8.9 Magnesium 1.8 Triglycerides TSH 1.95 Free T4 1.93 07/09/20 11:47 Troponin I 0.235 NT-Pro-B Natriuret Pep [id number] H Impressions: Foot X-Ray 07/10/20 00:00 IMPRESSION: SEVERE DIFFUSE DEMINERALIZATION. CHRONIC CHANGES IN THE 5TH TOE. PROGRESSIVE DESTRUCTION OF THE 2ND TOE. MAY BE DUE TO OSTEOMYELITIS. Chest X-Ray 07/10/20 16:17 IMPRESSION: 1. Interval placement of endotracheal tube, tip is approximately 3.4 cm proximal to the joselito. Nasogastric tube with the tip overlying the body of the stomach. No evidence of pneumothorax. 2. Lies, unchanged finding since the prior study dated 07/09/2020. Head CT 07/10/20 16:23 IMPRESSION: 1. No significant interval changes since the prior examinations dated 07/09/2020, 07/03/2020 and 04/12/2020. No acute intracranial abnormality. 2. Chronic mild small vessel ischemic changes. Stable appearance to the low attenuated area in the region of the right hankins radiata. Further evaluation with MRI Brain maybe helpful to exclude acute changes. 3. New finding of a fluid collection within the posterior nasopharynx which lies anterior and adjacent to the adenoids and extends into the oropharynx. Interval placement of endotracheal and nasogastric tube since the previous study dated 07/09/2020. This finding may be on an inflammatory basis, possibly due to reflux. Correlation suggested. EVIDENCE OF ACUTE STROKE: NO Assessment and Plan - Diagnosis (1) Confusion Is this a current diagnosis for this admission?: Yes Plan: Patient CT of the head is negative's We will get the sepsis work-up Discussed with the Dr. Tavares suggested get all the culture with a history of the MRSA and VRE will give her 1 g of vancomycin 07/11 the patient presented with confusion. Unclear if he was a bit hypercapneic at that time or if it developed later. It is clear that he became extremely obtunded and unresponsive in the sitting of yesterday's acute hypercapneic failure. I am not sure what this was prompted by. I dn't see any soporifics or narcs on the patient's medex. His TFTs are ok. I am checking an ammonia level as well. The patient did get a bit hypoglycemic today . As far as I know he is not a diabetic. (2) Hypotension Qualifiers: Hypotension type: unspecified hypotension type Qualified Code(s): I95.9 - Hypotension, unspecified Is this a current diagnosis for this admission?: Yes Plan: Patient is currently on the dry side will hold the dialysis today electrolytes is all stable as per discussed with the Dr. Tavares patient always running in the low blood pressures will increase the Midrin 10 mg every 8 and also do some sepsis work-up 07/11 Unclear what his recent hypotension is due to. The patient has a normal WBC. I am going to check a cortisol level. hb has been stable. He is probably chronically low and has been on midodrine. Inaddition, he remianson a at least 20mcg/kg/minof propofol. (3) Acute respiratory failure Qualifiers: Respiratory failure complication: hypercapnia Qualified Code(s): J96.02 - Acute respiratory failure with hypercapnia Is this a current diagnosis for this admission?: Yes Plan: The poatiebnt has had imropvement in his ABGs.. I am hoping that we can extubate him either tody or tomorrow. (4) ESRD needing dialysis Is this a current diagnosis for this admission?: Yes Plan: The patient got a full dialysis treatment today. He was not able to haveit 2 days ago when he presented from there with confusion. (5) Sepsis Qualifiers: Sepsis type: sepsis due to unspecified organism Sepsis acute organ dysfunction status: unspecified Qualified Code(s): A41.9 - Sepsis, unspecified organism Is this a current diagnosis for this admission?: Yes Plan: The patient presented with AMS followed by hypotension and hypercapneic failure. It is possible he is septic. He did have 1 positive blood culture with GPCs in clusters in his blood. The patient did have some abnormaliies in his right foot x -ray. The question was raised as to osteomyelitis. from the surface the toe does not seem warm or red. There is a healed pustule on the dorsum of the 2nd toe. May nee MRI or tripasic bone scan to determine the relevance. clinically. In addition, thepatient has a tunnelled catheter which may be the soource. Critical Time Critical Time (minutes): 40 Level of Care: ICU -: 1. The care of a critical patient is a dynamic process. This note is a sales representative synopsis but static in nature. The timeframe for treatments given in order is not necessarily the actual time these treatments may have been done. 2. This patient requires critical care secondary to ongoing requirements for therapy not offered or safe outside the critical care environment. Transfer to a lower level of care will result in altered life or limb morbidity and mortality. 3. Multidisciplinary rounds completed. 4. ABCDE bundle addressed.
--- NOTE | 2020-07-11 16:03 | PDOC PROGRESS REPORT ---
Subjective Progress Note for:: 07/10/20 Subjective:: Patient blood pressure is underlying withdrawal and put in the Trendelenburg positions patient still alert awake oriented x4 just the complaining of her right ankle pain Patient at this point discussed with the Dr. Dumont suggest to start on a dopamine drip and discussed with Dr. Tavares since I agree with giving some more fluid Also will give her 1 g vancomycin's and start on IV Rocephin with the history of the MRSA and VRE in the past Patient's denied any chest pain no short of breath No abdominal pain no nausea no vomiting His blood cultures positive for gram-positive cocci Reason For Visit: AMS,ESRD Physical Exam Vital Signs: Temp Pulse Resp BP Pulse Ox 97 F L 72 18 78/50 L 96 07/10/20 12:00 07/10/20 12:46 07/10/20 12:46 07/10/20 12:00 07/10/20 12:46 Intake & Output 07/09/20 07/10/20 07/11/20 06:59 06:59 06:59 Intake Total 500 50 Balance 500 50 Weight 54.4 kg General appearance: PRESENT: no acute distress, well-developed, well-nourished Head exam: PRESENT: atraumatic, normocephalic Eye exam: PRESENT: conjunctiva pink, EOMI, PERRLA. ABSENT: scleral icterus Ear exam: PRESENT: normal external ear exam Mouth exam: PRESENT: moist, tongue midline Neck exam: PRESENT: full ROM. ABSENT: carotid bruit, JVD, lymphadenopathy, thyromegaly Respiratory exam: PRESENT: clear to auscultation jolie Cardiovascular exam: PRESENT: RRR. ABSENT: diastolic murmur, rubs, systolic murmur Vascular exam: PRESENT: normal capillary refill GI/Abdominal exam: PRESENT: normal bowel sounds, soft. ABSENT: distended, guarding, mass, organolmegaly, rebound, tenderness Rectal exam: PRESENT: deferred Additional comments: On the right ankle there was some mild swelling is present Patient have a significant PAD in the both legsWith the discoloration in the both legs which is chronic Neurological exam: PRESENT: alert, awake, oriented to person, oriented to place, oriented to time, oriented to situation, CN II-XII grossly intact. ABSENT: motor sensory deficit Psychiatric exam: PRESENT: appropriate affect, normal mood. ABSENT: homicidal ideation, suicidal ideation Skin exam: PRESENT: dry, intact, warm. ABSENT: cyanosis, rash Results Laboratory Results: 07/10/20 03:46 07/09/20 20:23 07/09/20 07/09/20 07/09/20 11:47 18:50 20:23 WBC RBC Hgb Hct MCV MCH MCHC RDW Plt Count Seg Neutrophils % Sodium Cancelled 140.0 Potassium Cancelled 3.7 Chloride Cancelled 102 Carbon Dioxide Cancelled 26 Anion Gap Cancelled 12 BUN Cancelled 30 H Creatinine Cancelled 3.95 H Est GFR ( Amer) Cancelled 19 L Est GFR (Non-Af Amer) Cancelled Glucose Cancelled 112 H Calcium Cancelled 9.2 Magnesium Lipase 16.1 L 07/10/20 07/10/20 03:46 03:46 WBC 4.0 RBC 4.34 L Hgb 12.7 L Hct 40.1 MCV 92 MCH 29.2 MCHC 31.6 L RDW 17.0 H Plt Count 104 L Seg Neutrophils % 52.6 Sodium Potassium Chloride Carbon Dioxide Anion Gap BUN Creatinine Est GFR ( Amer) Est GFR (Non-Af Amer) Glucose Calcium Magnesium 1.8 Lipase 07/09/20 11:47 Troponin I 0.235 NT-Pro-B Natriuret Pep [id number] H Impressions: Chest X-Ray 07/09/20 13:50 IMPRESSION: Stable enlarged cardiac silhouette, mild bilateral pleural effusions and bibasilar opacities, left greater than right. Head CT 07/09/20 14:42 IMPRESSION: 1. No significant interval changes since the prior examination dated 07/03/2020. No acute intracranial abnormality. 2. Chronic small vessel ischemic changes changes and mild atrophy. 3. Additional stable findings as above. EVIDENCE OF ACUTE STROKE: NO Assessment & Plan - Diagnosis (1) Sepsis Qualifiers: Sepsis type: sepsis due to unspecified organism Is this a current diagnosis for this admission?: Yes Plan: Will start the patient on a 1 g vancomycin started on IV Rocephin with the gram- positive organism we will get the x-ray of the foot to rule out any osteomyelitis get the blood culture urine culture (2) Hypotension Qualifiers: Hypotension type: unspecified hypotension type Qualified Code(s): I95.9 - Hypotension, unspecified Is this a current diagnosis for this admission?: Yes Plan: Patient was started on a dopamine drip (3) Confusion Is this a current diagnosis for this admission?: Yes Plan: With a combination of the sepsis hypertensions and hypoglycemia (4) ESRD on hemodialysis Is this a current diagnosis for this admission?: Yes Plan: Currently follow with the Dr. 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) Is this a current diagnosis for this admission?: Yes (8) Cerebrovascular disease Is this a current diagnosis for this admission?: Yes (9) Chronic diastolic (congestive) heart failure Is this a current diagnosis for this admission?: Yes (10) Coronary artery disease Qualifiers: Coronary Disease-Associated Artery/Lesion type: [place] artery Associated angina: without angina Is this a current diagnosis for this admission?: Yes (11) Diabetes mellitus, type II Qualifiers: Diabetes mellitus custodial insulin use: without intermediate project manager use Is this a current diagnosis for this admission?: Yes (12) Gastroesophageal reflux disease Is this a current diagnosis for this admission?: Yes (13) History of Clostridium difficile colitis Is this a current diagnosis for this admission?: Yes (14) History of kidney transplant Is this a current diagnosis for this admission?: Yes (15) Peripheral arterial disease Is this a current diagnosis for this admission?: Yes - Time Time Spent with patient: 25-34 minutes
[2020-07-11] MEDS: MIDODRINE HCL 5 MG TABLET PO SCH (16:28)
[2020-07-11] MEDS: COLCHICINE 0.6 MG TABLET PO SCH (16:28)
[2020-07-11] MEDS: COLCHICINE 0.6 MG TABLET NG SCH (18:30)
[2020-07-12 04:38] LABS: ABSOLUTE BASOPHILS # (AUTO) 0.1 10^3/uL (0.0-0.2); ABSOLUTE EOSINOPHILS # (AUTO) 0.2 10^3/uL (0.0-0.6); ABSOLUTE LYMPHOCYTES (AUTO) 2.4 10^3/uL (0.5-4.7); ABSOLUTE MONOCYTES (AUTO) 1.3 10^3/uL (0.1-1.4); ABSOLUTE NEUT (AUTO) 4.4 10^3/uL (1.7-8.2); BASOPHILS % (AUTO) 1.1 % (0-2); EOSINOPHILS % (AUTO) 2.2 % (0-6); HEMOGLOBIN 14.1 g/dL (13.5-17.0); LYMPHOCYTES % (AUTO) 28.7 % (13-45); MEAN CORPUSCULAR HEMOGLOBIN 28.7 pg (27.0-33.4); MEAN CORPUSCULAR HGB CONC 32.7 g/dL (32.0-36.0); MEAN CORPUSCULAR VOLUME 88 fl (80-97); MONOCYTES % (AUTO) 15.1 % (3-13); RED BLOOD COUNT 4.91 10^6/uL (4.35-5.55); RED CELL DISTRIBUTION WIDTH 16.6 % (11.5-14.0); SEGMENTED NEUTROPHILS % (AUTO) 52.9 % (42-78); TOTAL CELLS COUNTED % (AUTO) 100 %; WHITE BLOOD COUNT 8.3 10^3/uL (4.0-10.5)
[2020-07-12 04:45] LABS: ANION GAP 9 (5-19); BLOOD UREA NITROGEN 27 mg/dL (7-20); CALCIUM 8.4 mg/dL (8.4-10.2); CARBON DIOXIDE 25 mmol/L (22-30); CHLORIDE 102 mmol/L (98-107); POTASSIUM 3.7 mmol/L (3.6-5.0)
[2020-07-12 04:48] LABS: GLUCOSE 61 mg/dL (75-110)
[2020-07-12] MEDS ORDERED: DEXTROSE 50%-WATER 25 GM/50 ML DISP.SYRIN IV ONE ×2 (04:54→10:23)
[2020-07-12 05:33] LABS: PLATELET COUNT 94 10^3/uL (150-450)
[2020-07-12] MEDS: PROPOFOL 1,000 MG/100 ML INFUS..BTL IV PRN (07:00)
[2020-07-12] MEDS: HEPARIN SOD (PORCINE) 5,000 UNIT/ML 1 ML VIAL SUBCUT SCH ×3 (07:33→21:53)
[2020-07-12] MEDS: LATANOPROST 0.005% OPH SOLN 2.5 ML OU SCH ×2 (07:35→21:53)
[2020-07-12] MEDS ORDERED: GLUCAGON,HUMAN RECOMB 1 MG INJ IM PRN (10:30)
[2020-07-12] MEDS ORDERED: DEXTROSE 50%-WATER SYRINGE 25 GM/50 ML DOSE IV PRN (10:30)
[2020-07-12] MEDS ORDERED: DEXTROSE 40% GEL 15 GM TUBE PO PRN (10:30)
[2020-07-12] MEDS ORDERED: DEXTROSE 50%-WATER SYRINGE 12.5 GM/25 ML DOSE IV PRN (10:30)
[2020-07-12] MEDS ORDERED: DEXTROSE 40% GEL 15 GM TUBE X 2 PO PRN (10:30)
[2020-07-12] MEDS: MIDODRINE HCL 5 MG TABLET NG SCH ×3 (10:32→17:37)
[2020-07-12] MEDS: CEFTRIAXONE 1 GM/D5W RTU 1 GM/50 ML RTUPB IV SCH (10:32)
[2020-07-12] MEDS: DOCUSATE SODIUM 100 MG/10 ML UDC NG SCH (10:32)
[2020-07-12] MEDS: COLCHICINE 0.6 MG TABLET NG SCH ×2 (10:33→17:37)
[2020-07-12] MEDS: HYDROCORTISONE SOD SUCCINATE INJ/PF 100 MG/2 ML SDV IV SCH ×2 (10:33→21:52)
[2020-07-12] MEDS: FAMOTIDINE INJ/PF 20 MG/2 ML SDV IV SCH (10:33)
[2020-07-12] MEDS: DOPAMINE HCL 800 MG/D5W 250 ML IV PRN (10:38)
--- NOTE | 2020-07-12 12:51 | PDOC CRITICAL CARE PROG REPORT ---
General Date:: 07/12/20 ICU Day:: 3 Ventilator Day:: 3 Hospital Day:: 4 Resuscitation Status: Full Code Events in the past 12 to 24 Hours:: The patient presented on 07/10 with acute hypercapneic failure and had to be urge ntly intubated. Since than his ABG has been corrected. He is starting to wake up. He remains on dopamine 10 mcg/min. Reason for ICU Addmission:: Acute Respiratory Failure Physical Exam Vital Signs: Temp Pulse Resp BP Pulse Ox 97.9 F 91 12 131/75 H 100 07/12/20 11:55 07/12/20 11:55 07/12/20 11:55 07/12/20 11:55 07/12/20 12:00 Intake & Output 07/11/20 07/12/20 07/13/20 06:59 06:59 06:59 Intake Total 1018 1760 189 Output Total 0 725 0 Balance 1018 1035 189 Weight 55.6 kg 58.6 kg Weight/Height Weight 58.6 kg Height 5 ft 7 in General appearance: PRESENT: no acute distress Head exam: PRESENT: atraumatic Eye exam: PRESENT: conjunctiva pink Ear exam: PRESENT: normal external ear exam Mouth exam: PRESENT: moist Neck exam: ABSENT: JVD, lymphadenopathy, meningismus, tenderness Respiratory exam: ABSENT: accessory muscle use Cardiovascular exam: PRESENT: RRR, +S1, +S2 Pulses: PRESENT: normal carotid pulses, normal femoral pulses. ABSENT: normal dorsalis pedis pul GI/Abdominal exam: PRESENT: soft. ABSENT: tenderness Rectal exam: ABSENT: deferred Gentrourinary exam: ABSENT: ecchymosis, scrotal swelling Extremities exam: ABSENT: calf tenderness, clubbing Neurological exam: PRESENT: other - Starting to move around. Intermittently opens eyes.. ABSENT: alert Skin exam: ABSENT: cyanosis, mottled Tubes/Lines: PRESENT: Endotracheal Tube, Dialysis catheter Laboratory/Radiographs Laboratory Results: 07/12/20 04:08 07/12/20 04:08 07/11/20 07/11/20 07/12/20 15:45 18:59 04:08 WBC 8.3 RBC 4.91 Hgb 14.1 Hct 43.0 MCV 88 MCH 28.7 MCHC 32.7 RDW 16.6 H Plt Count 94 L Seg Neutrophils % 52.9 Sodium Potassium Chloride Carbon Dioxide Anion Gap BUN Creatinine Est GFR ( Amer) Glucose Calcium Magnesium Ammonia Cancelled < 8.7 L 07/12/20 04:08 WBC RBC Hgb Hct MCV MCH MCHC RDW Plt Count Seg Neutrophils % Sodium 135.9 L Potassium 3.7 Chloride 102 Carbon Dioxide 25 Anion Gap 9 BUN 27 H Creatinine 3.51 H Est GFR ( Amer) 21 L Glucose 61 L Calcium 8.4 Magnesium 1.6 Ammonia 07/09/20 14:10 Blood Blood Culture - Final Staphylococcus Aureus 07/09/20 11:47 Troponin I 0.235 NT-Pro-B Natriuret Pep [id number] H Impressions: Foot X-Ray 07/10/20 00:00 IMPRESSION: SEVERE DIFFUSE DEMINERALIZATION. CHRONIC CHANGES IN THE 5TH TOE. PROGRESSIVE DESTRUCTION OF THE 2ND TOE. MAY BE DUE TO OSTEOMYELITIS. Chest X-Ray 07/10/20 16:17 IMPRESSION: 1. Interval placement of endotracheal tube, tip is approximately 3.4 cm proximal to the joselito. Nasogastric tube with the tip overlying the body of the stomach. No evidence of pneumothorax. 2. Lies, unchanged finding since the prior study dated 07/09/2020. Head CT 07/10/20 16:23 IMPRESSION: 1. No significant interval changes since the prior examinations dated 07/09/2020, 07/03/2020 and 04/12/2020. No acute intracranial abnormality. 2. Chronic mild small vessel ischemic changes. Stable appearance to the low attenuated area in the region of the right hankins radiata. Further evaluation with MRI Brain maybe helpful to exclude acute changes. 3. New finding of a fluid collection within the posterior nasopharynx which lies anterior and adjacent to the adenoids and extends into the oropharynx. Interval placement of endotracheal and nasogastric tube since the previous study dated 07/09/2020. This finding may be on an inflammatory basis, possibly due to reflux. Correlation suggested. EVIDENCE OF ACUTE STROKE: NO Assessment and Plan - Diagnosis (1) Confusion Is this a current diagnosis for this admission?: Yes Plan: Patient CT of the head is negative's We will get the sepsis work-up Discussed with the Dr. Tavares suggested get all the culture with a history of the MRSA and VRE will give her 1 g of vancomycin 07/11 the patient presented with confusion. Unclear if he was a bit hypercapneic at that time or if it developed later. It is clear that he became extremely obtunded and unresponsive in the sitting of yesterday's acute hypercapneic failure. I am not sure what this was prompted by. I dn't see any soporifics or narcs on the patient's medex. His TFTs are ok. I am checking an ammonia level as well. The patient did get a bit hypoglycemic today . As far as I know he is not a diabetic. 07/12 Hard to assess his mental status presently. Nevertheless, the hypercarbia has resolved Cortisol level was low. TFTs and ammonia was normal (2) Hypotension Qualifiers: Hypotension type: idiopathic hypotension Qualified Code(s): I95.0 - Idiopathic hypotension Is this a current diagnosis for this admission?: Yes Plan: Patient is currently on the dry side will hold the dialysis today electrolytes is all stable as per discussed with the Dr. Tavares patient always running in the low blood pressures will increase the Midrin 10 mg every 8 and also do some sepsis work-up 07/11 Unclear what his recent hypotension is due to. The patient has a normal WBC. I am going to check a cortisol level. hb has been stable. He is probably chronically low and has been on midodrine. In addition, he remains on a at least 20mcg/kg/min of propofol. 07/12 The patient remains hypotensive. Patient haad evening cortisol level. of 7 whic appears low. i ave placed him on Hydrocortisone presently. Wonder oif his recent low blood sugars are rleated to as low adrenal fn. (3) Acute respiratory failure Qualifiers: Respiratory failure complication: hypercapnia Qualified Code(s): J96.02 - Acute respiratory failure with hypercapnia Is this a current diagnosis for this admission?: Yes Plan: The patient has had improvement in his ABGs.. I am hoping that we can extubate him either today or tomorrow. 07/12 I am hoping that now that patient is off sdedation that we can wean and extubate him tpoday. (4) ESRD needing dialysis Is this a current diagnosis for this admission?: Yes (5) Sepsis Qualifiers: Sepsis type: sepsis due to unspecified organism Sepsis acute organ dysfunction status: unspecified Qualified Code(s): A41.9 - Sepsis, unspecified organism Is this a current diagnosis for this admission?: Yes (6) Hypoglycemia Is this a current diagnosis for this admission?: Yes Plan: Unclear why the patient has had a series of low blood sugars. Non have been lower than 50. The patient has not received any insulin or oral hypoglcemic meds recently. He has not had nutrtrion for thepast 2 days but that usually woulkd not be sufficient to make the average individual hypoglcemia. I did place patient on Hydrocortisonepending cameron evlauation. Critical Time Critical Time (minutes): 35 Level of Care: ICU -: 1. The care of a critical patient is a dynamic process. This note is a international sales representative synopsis but static in nature. The timeframe for treatments given in order is not necessarily the actual time these treatments may have been done. 2. This patient requires critical care secondary to ongoing requirements for therapy not offered or safe outside the critical care environment. Transfer to a lower level of care will result in altered life or limb morbidity and mortality. 3. Multidisciplinary rounds completed. 4. ABCDE bundle addressed.
[2020-07-12] MEDS: DEXTROSE 5%-WATER 1000 ML 1,000 ML IV PRN (18:34)
[2020-07-12] MEDS ORDERED: DEXTROSE 5%-WATER 250 ML with VASOPRESSIN 100 UNIT IV PRN ×2 (19:58)
--- NOTE | 2020-07-12 23:01 | Progress Note ---
Provider Note Provider Note: CARDIOLOGY PROGRESS NOTE by Dr. Samia Roper on 07/12/2020. SUBJECTIVE: The patient is intubated and sedated. There is no arrhythmias seen on the monitor. The patient still requiring dopamine at 10 mcg/kg/min. Attempts to wean off the dopamine causes the patient's blood pressure to drop. The patient has a past history of VRE septicemia. Hence strongly suspect that the patient is septic. PHYSICAL EXAMINATION: The patient appears to be emaciated and chronically ill and malnourished he is intubated and sedated. Selected Entries 07/12/20 07/12/20 19:41 20:05 Temperature 97.9 F Temperature Axillary Source Pulse Rate 103 H Respiratory 12 Rate Positive End 5 Expiratory Pressure Blood Pressure 112/67 [Upper Arm] Blood Pressure 82 Mean [Upper Arm ] Blood Pressure Supine Position [Upper Arm] O2 Sat by Pulse 100 Oximetry Oxygen Delivery Mechanical Method ( Ventilator includes room air) Fraction of 30 Inspired Oxygen (FIO2) HEAD: Is atraumatic normocephalic. EYES: Pupils equal reactive to light. ENT i s negative. There is right facial droop present. NECK: Supple. There is no JVD. Carotids are equal there is no bruits. Lungs: Fairly clear. Heart S1-S2 is heard there is no S3 gallop. There is no S4 gallop. There is no rub. ABDOMEN: Soft nontender. There is no hepatosplenomegaly. Bowel sounds well heard. EXTREMITIES: Femorals are diminished. Leg pulses are diminished. There is no pedal edema there is wasting of the muscles of the lower extremities. 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 Does seem to move all 4 extremities at times. PSYCHIATRIC not examined due to patient's current mental status. Labs- All tests 24 hr 07/12/20 07/12/20 07/12/20 01:12 04:08 04:08 WBC 8.3 RBC 4.91 Hgb 14.1 Hct 43.0 MCV 88 MCH 28.7 MCHC 32.7 RDW 16.6 H Plt Count 94 L Lymph % (Auto) 28.7 Monroe % (Auto) 15.1 H Eos % (Auto) 2.2 Baso % (Auto) 1.1 Absolute Neuts (auto) 4.4 Absolute Lymphs (auto) 2.4 Absolute Monos (auto) 1.3 Absolute Eos (auto) 0.2 Absolute Basos (auto) 0.1 Seg Neutrophils % 52.9 Sodium 135.9 L Potassium 3.7 Chloride 102 Carbon Dioxide 25 Anion Gap 9 BUN 27 H Creatinine 3.51 H Est GFR ( Amer) 21 L Est GFR (MDRD) Non-Af 18 L Glucose 61 L POC Glucose 75 Calcium 8.4 Magnesium 1.6 07/12/20 07/12/20 07/12/20 05:12 06:36 10:15 WBC RBC Hgb Hct MCV MCH MCHC RDW Plt Count Lymph % (Auto) Monroe % (Auto) Eos % (Auto) Baso % (Auto) Absolute Neuts (auto) Absolute Lymphs (auto) Absolute Monos (auto) Absolute Eos (auto) Absolute Basos (auto) Seg Neutrophils % Sodium Potassium Chloride Carbon Dioxide Anion Gap BUN Creatinine Est GFR ( Amer) Est GFR (MDRD) Non-Af Glucose POC Glucose 108 76 57 L Calcium Magnesium 07/12/20 07/12/20 07/12/20 11:11 11:50 12:15 WBC RBC Hgb Hct MCV MCH MCHC RDW Plt Count Lymph % (Auto) Monroe % (Auto) Eos % (Auto) Baso % (Auto) Absolute Neuts (auto) Absolute Lymphs (auto) Absolute Monos (auto) Absolute Eos (auto) Absolute Basos (auto) Seg Neutrophils % Sodium Potassium Chloride Carbon Dioxide Anion Gap BUN Creatinine Est GFR ( Amer) Est GFR (MDRD) Non-Af Glucose POC Glucose 91 72 90 Calcium Magnesium 07/12/20 07/12/20 14:08 17:47 WBC RBC Hgb Hct MCV MCH MCHC RDW Plt Count Lymph % (Auto) [place] % (Auto) Eos % (Auto) Baso % (Auto) Absolute Neuts (auto) Absolute Lymphs (auto) Absolute Monos (auto) Absolute Eos (auto) Absolute Basos (auto) Seg Neutrophils % Sodium Potassium Chloride Carbon Dioxide Anion Gap BUN Creatinine Est GFR ( Amer) Est GFR (MDRD) Non-Af Glucose POC Glucose 88 78 Calcium Magnesium Chest X-Ray 07/09/20 13:50 IMPRESSION: Stable enlarged cardiac silhouette, mild bilateral pleural effusions and bibasilar opacities, left greater than right. Head CT 07/09/20 14:42 IMPRESSION: 1. No significant interval changes since the prior examination dated 07/03/2020. No acute intracranial abnormality. 2. Chronic small vessel ischemic changes changes and mild atrophy. 3. Additional stable findings as above. EVIDENCE OF ACUTE STROKE: NO Foot X-Ray 07/10/20 00:00 IMPRESSION: SEVERE DIFFUSE DEMINERALIZATION. CHRONIC CHANGES IN THE 5TH TOE. PROGRESSIVE DESTRUCTION OF THE 2ND TOE. MAY BE DUE TO OSTEOMYELITIS. Chest X-Ray 07/10/20 16:17 IMPRESSION: 1. Interval placement of endotracheal tube, tip is approximately 3.4 cm proximal to the joselito. Nasogastric tube with the tip overlying the body of the stomach. No evidence of pneumothorax. 2. Lies, unchanged finding since the prior study dated 07/09/2020. Head CT 07/10/20 16:23 IMPRESSION: 1. No significant interval changes since the prior examinations dated 07/09/2020, 07/03/2020 and 04/12/2020. No acute intracranial abnormality. 2. Chronic mild small vessel ischemic changes. Stable appearance to the low attenuated area in the region of the right hankins radiata. Further evaluation with MRI Brain maybe helpful to exclude acute changes. 3. New finding of a fluid collection within the posterior nasopharynx which lies anterior and adjacent to the adenoids and extends into the oropharynx. In terval placement of endotracheal and nasogastric tube since the previous study dated 07/09/2020. This finding may be on an inflammatory basis, possibly due to reflux. Correlation suggested. EVIDENCE OF ACUTE STROKE: NO IMPRESSION/RECOMMENDATION: 1. Acute hypercapnic respiratory failure. Patient intubated. 2. Hypotension: The patient has chronic hypotension in spite of midodrine. Continue dopamine. Cannot exclude sepsis as a cause of the patient's hypertension. Agree with getting specimens for paris culture. In the interim while waiting for the cultures would recommend starting the patient on vasopressin to see if this brings the patient's blood pressure up and can wean the patient off dopamine. 3. End-stage renal disease on hemodialysis. 4. Possible osteomyelitis of the right foot. Recommend antibiotics. 5. Ischemic cardiomyopathy with moderately reduced LV ejection fraction. 6. Coronary artery disease, patient's troponin is elevated but this may be secondary to supply demand mismatch rather than [place] the cause is being hypotension, respiratory failure and renal failure. 7. Diabetes mellitus: Continue high-level antidiabetic treatment. 8. History of prior CVA. 9. 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 Medications reviewed. Medical regimen management plan discussed with attending provider on the case. Medical decision making is of high complexity. 40 minutes spent as patient with more than 50% time spent in direct patient care. Will follow.
[2020-07-13 04:12] LABS: HEMATOCRIT 46.7 % (37.9-51.0); HEMOGLOBIN 15.5 g/dL (13.5-17.0); MEAN CORPUSCULAR HGB CONC 33.2 g/dL (32.0-36.0); MEAN CORPUSCULAR VOLUME 87 fl (80-97); PLATELET COUNT 123 10^3/uL (150-450); RED BLOOD COUNT 5.36 10^6/uL (4.35-5.55); RED CELL DISTRIBUTION WIDTH 16.9 % (11.5-14.0)
[2020-07-13] MEDS ORDERED: HEPARIN SOD (PORCINE) 1,000 UNIT/ML 10 ML VIAL IV PRN (05:00)
[2020-07-13] MEDS: HEPARIN SOD (PORCINE) 5,000 UNIT/ML 1 ML VIAL SUBCUT SCH ×3 (05:27→21:37)
[2020-07-13 06:20] LABS: ANION GAP 14 (5-19); BLOOD UREA NITROGEN 33 mg/dL (7-20); CALCIUM 8.6 mg/dL (8.4-10.2); CARBON DIOXIDE 21 mmol/L (22-30); CHLORIDE 100 mmol/L (98-107); GLUCOSE 155 mg/dL (75-110); POTASSIUM 4.3 mmol/L (3.6-5.0); TRIGLYCERIDES 242 mg/dL (<150)
--- NOTE | 2020-07-13 10:11 | RADIOLOGY REPORT (SQ) ---
EXAM DESCRIPTION: CHEST SINGLE VIEW IMAGES COMPLETED DATE/TIME: 07/13/2020 9:51 am REASON FOR STUDY: resp failure COMPARISON: AP view of the chest from 07/10/2020. EXAM PARAMETERS: NUMBER OF VIEWS: One view. TECHNIQUE: An AP view of the chest was obtained. RADIATION DOSE: NA LIMITATIONS: None. FINDINGS: LUNGS AND PLEURA: Unchanged bilateral basilar predominant pleural and parenchymal opacitie s that obscure the contour of the hemidiaphragms and blunt the costophrenic sulci. MEDIASTINUM AND HILAR STRUCTURES: Stable mediastinal and hilar contours. HEART AND VASCULAR STRUCTURES: Stable enlarged cardiac silhouette. BONES: No acute findings. HARDWARE: The tip of the endotracheal tube projects 4.6 cm above the joselito. The tip of the enteric tube projects at the level of the joselito. The tip of the tunneled hemodialysis catheter projects at the level of the cavoatrial junction. There are sternotomy wires, mediastinal surgical clips, and co ronary stents in place. OTHER: No other finding. IMPRESSION: The enteric tube is malpositioned and its tip projects at the level of the joselito within the thoracic esophagus. Otherwise unchanged radiographic appearance of the chest. TECHNICAL DOCUMENTATION: JOB ID: [id number] 2010 [employer]- All Rights Reserved Reading location - IP/workstation name: [email or web address]
--- NOTE | 2020-07-13 10:17 | PDOC PROGRESS REPORT ---
Subjective Progress Note for:: 07/13/20 Reason For Visit: Patient seen on dialysis today. He remains in the ICU intubated and sedated. Blood pressure is tenuous and patient is on dopamine. Blood cultures grew 1 bottle of MSSA and is on antibiotics for that. Labs and medications were reviewed. Dialysis orders were reviewed with the treating dialysis nurse. Physical Exam Vital Signs: Temp Pulse Resp BP Pulse Ox 98.4 F 92 14 103/41 L 100 07/13/20 08:00 07/13/20 04:00 07/13/20 08:06 07/13/20 08:06 07/13/20 08:06 Intake & Output 07/12/20 07/13/20 07/14/20 06:59 06:59 06:59 Intake Total 1760 318 Output Total 120 048 3191 Balance 1035 -32 -1000 Weight 58.6 kg 58.6 kg General appearance: PRESENT: no acute distress Exam: Remains intubated and sedated. Respiratory exam: PRESENT: clear to auscultation jolie. ABSENT: crackles Cardiovascular exam: PRESENT: +S1, +S2 GI/Abdominal exam: PRESENT: normal bowel sounds, soft. ABSENT: organomegaly, tenderness Extremities exam: ABSENT: pedal edema Results Laboratory Results: 07/13/20 03:57 07/13/20 05:38 07/13/20 07/13/20 07/13/20 03:57 03:57 05:38 WBC 7.0 RBC 5.36 Hgb 15.5 Hct 46.7 MCV 87 MCH 29.0 MCHC 33.2 RDW 16.9 H Plt Count 123 L Sodium Cancelled 135.3 L Potassium Cancelled 4.3 Chloride Cancelled 100 Carbon Dioxide Cancelled 21 L Anion Gap Cancelled 14 BUN Cancelled 33 H Creatinine Cancelled 4.00 H Est GFR ( Amer) Cancelled 18 L Est GFR (Non-Af Amer) Cancelled Glucose Cancelled 155 H Calcium Cancelled 8.6 Triglycerides Cancelled 242 H 07/09/20 14:10 Blood Blood Culture - Final Staphylococcus Aureus 07/09/20 11:47 Troponin I 0.235 NT-Pro-B Natriuret Pep [id number] H Impressions: Foot X-Ray 07/10/20 00:00 IMPRESSION: SEVERE DIFFUSE DEMINERALIZATION. CHRONIC CHANGES IN THE 5TH TOE. PROGRESSIVE DESTRUCTION OF THE 2ND TOE. MAY BE DUE TO OSTEOMYELITIS. Head CT 07/10/20 16:23 IMPRESSION: 1. No significant interval changes since the prior examinations dated 07/09/2020, 07/03/2020 and 04/12/2020. No acute intracranial abnormality. 2. Chronic mild small vessel ischemic changes. Stable appearance to the low attenuated area in the region of the right hankins radiata. Further evaluation with MRI Brain maybe helpful to exclude acute changes. 3. New finding of a fluid collection within the posterior nasopharynx which lies anterior and adjacent to the adenoids and extends into the oropharynx. I nterval placement of endotracheal and nasogastric tube since the previous study dated 07/09/2020. This finding may be on an inflammatory basis, possibly due to reflux. Correlation suggested. EVIDENCE OF ACUTE STROKE: NO Assessment & Plan - Diagnosis (1) ESRD on hemodialysis Is this a current diagnosis for this admission?: Yes Plan: Patient currently undergoing dialysis. Patient is hypotensive on max dose of dopamine. Patient clinically dry and and therefore fluid extraction will be accordingly. Dialysis orders were reviewed with treating dialysis nurse. This patient is extremely critical and given his multiple complex comorbidities he has a guarded prognosis. (2) Hypotension Qualifiers: Hypotension type: idiopathic hypotension Qualified Code(s): I95.0 - Idiopathic hypotension Is this a current diagnosis for this admission?: Yes Plan: Currently on 5 mics of dopamine. Looks that he is a bit more stable than when I saw him last on current pressors. (3) Acute respiratory failure Qualifiers: Respiratory failure complication: hypercapnia Qualified Code(s): J96.02 - Acute respiratory failure with hypercapnia Is this a current diagnosis for this admission?: Yes Plan: Hypercarbic respiratory failure. Differential diagnosis for this includes generalized debility on top of Guillain-Ventura/bilateral pleural effusions/occult consolidation/Possible aspiration/acute on chronic CHF.Currently intubated and sedated. 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 (5) Diabetes mellitus, type II Qualifiers: Diabetes mellitus usp insulin use: without termite control servicer use Is this a current diagnosis for this admission?: Yes Plan: As per supervisor receiving and processing.Currently on no anti-hyperglycemic agents and patient is rather hypoglycemic. Possibly secondary to sepsis and liver dysfunction. (6) History of Clostridium difficile infection Plan: Status quo. Patient usually goes into developing c.diff once he is being tr eated with antibiotics for other infections. Monitor for resurgence of this. 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 (8) Peripheral vascular disease Plan: Development of early gangrene of his toes with history of osteomyelitis in the past. (9) Recurrent urinary tract infection Plan: Monitor for this. If his white count especially is going high he might need to have an ED catheter to test his urine for possible infections.
[2020-07-13] MEDS: DOCUSATE SODIUM 100 MG/10 ML UDC NG SCH (10:52)
[2020-07-13] MEDS: MIDODRINE HCL 5 MG TABLET NG SCH ×3 (11:21→18:43)
[2020-07-13] MEDS: COLCHICINE 0.6 MG TABLET NG SCH ×2 (11:21→18:43)
[2020-07-13] MEDS: HYDROCORTISONE SOD SUCCINATE INJ/PF 100 MG/2 ML SDV IV SCH ×2 (11:21→21:37)
[2020-07-13] MEDS: FAMOTIDINE INJ/PF 20 MG/2 ML SDV IV SCH (11:21)
[2020-07-13] MEDS: CEFTRIAXONE 1 GM/D5W RTU 1 GM/50 ML RTUPB IV SCH (11:22)
[2020-07-13] MEDS: DOPAMINE HCL 800 MG/D5W 250 ML IV PRN (12:34)
--- NOTE | 2020-07-13 13:51 | PDOC CRITICAL CARE PROG REPORT ---
General Date:: 06/19/20 ICU Day:: 4 Ventilator Day:: 4 Hospital Day:: 5 Resuscitation Status: Full Code Events in the past 12 to 24 Hours:: The patient presented on 07/10 with acute hypercapneic failure and had to be urge ntly intubated. Since than his ABG has been corrected. He is starting to wake up. He remains on dopamine 10 mcg/min. 07/13 The patient remains on mechanical ventilation. Whe I attempted SBT yesterday he got tachypneic and was breathing very shallow breaths. We will wean off remaining sedation and try again today. Last 3 blood cultures were negative. He remains on low dose dopamine. He did have a low cortisol level. 'We joy ttempt to wean him off dopamine today Reason for ICU Addmission:: Acute Respiratory Failure Physical Exam Vital Signs: Temp Pulse Resp BP Pulse Ox 97.1 F 94 31 H 164/103 H 100 07/13/20 12:00 07/13/20 12:00 07/13/20 13:00 07/13/20 12:58 07/13/20 13:00 Intake & Output 07/12/20 07/13/20 07/14/20 06:59 06:59 06:59 Intake Total 1760 318 259 Output Total 279 509 0049 Balance 1357 -78 -861 Weight 58.6 kg 58.6 kg Weight/Height Weight 58.6 kg Height 5 ft 7 in Laboratory/Radiographs Laboratory Results: 07/13/20 03:57 07/13/20 05:38 07/13/20 07/13/20 07/13/20 03:57 03:57 05:38 WBC 7.0 RBC 5.36 Hgb 15.5 Hct 46.7 MCV 87 MCH 29.0 MCHC 33.2 RDW 16.9 H Plt Count 123 L Sodium Cancelled 135.3 L Potassium Cancelled 4.3 Chloride Cancelled 100 Carbon Dioxide Cancelled 21 L Anion Gap Cancelled 14 BUN Cancelled 33 H Creatinine Cancelled 4.00 H Est GFR ( Amer) Cancelled 18 L Est GFR (Non-Af Amer) Cancelled Glucose Cancelled 155 H Calcium Cancelled 8.6 Triglycerides Cancelled 242 H 07/09/20 11:47 Troponin I 0.235 NT-Pro-B Natriuret Pep [id number] H Impressions: Foot X-Ray 07/10/20 00:00 IMPRESSION: SEVERE DIFFUSE DEMINERALIZATION. CHRONIC CHANGES IN THE 5TH TOE. PROGRESSIVE DESTRUCTION OF THE 2ND TOE. MAY BE DUE TO OSTEOMYELITIS. Head CT 07/10/20 16:23 IMPRESSION: 1. No significant interval changes since the prior examinations dated 07/09/2020, 07/03/2020 and 04/12/2020. No acute intracranial abnormality. 2. Chronic mild small vessel ischemic changes. Stable appearance to the low attenuated area in the region of the right hankins radiata. Further evaluation with MRI Brain maybe helpful to exclude acute changes. 3. New finding of a fluid collection within the posterior nasopharynx which lies anterior and adjacent to the adenoids and extends into the oropharynx. Interval placement of endotracheal and nasogastric tube since the previous study dated 07/09/2020. This finding may be on an inflammatory basis, possibly due to reflux. Correlation suggested. EVIDENCE OF ACUTE STROKE: NO Chest X-Ray 07/13/20 00:00 IMPRESSION: The enteric tube is malpositioned and its tip projects at the level of the joselito within the thoracic esophagus. Otherwise unchanged radiographic appearance of the chest. Assessment and Plan - Diagnosis (1) Confusion Is this a current diagnosis for this admission?: Yes Plan: Patient CT of the head is negative's We will get the sepsis work-up Discussed with the Dr. Tavares suggested get all the culture with a history of the MRSA and VRE will give her 1 g of vancomycin 07/11 the patient presented with confusion. Unclear if he was a bit hypercapneic at that time or if it developed later. It is clear that he became extremely obtunded and unresponsive in the sitting of yesterday's acute hypercapneic failure. I am not sure what this was prompted by. I dn't see any soporifics or narcs on the patient's medex. His TFTs are ok. I am checking an ammonia level as well. The patient did get a bit hypoglycemic today . As far as I know he is not a diabetic. 07/12 Hard to assess his mental status presently. Nevertheless, the hypercarbia has resolved Cortisol level was low. TFTs and ammonia was normal 07/13 I beleieve that the patient may have worsening C02 narcosis for a few days prior to admission which led to increasing confusion. he does have a history of RUDY but has not used his CPAP latlely according to his . (2) Hypotension Qualifiers: Hypotension type: idiopathic hypotension Qualified Code(s): I95.0 - Idiopathic hypotension Is this a current diagnosis for this admission?: Yes Plan: Patient is currently on the dry side will hold the dialysis today electrolytes is all stable as per discussed with the Dr. Tavares patient always running in the low blood pressures will increase the Midrin 10 mg every 8 and also do some sepsis work-up 07/11 Unclear what his recent hypotension is due to. The patient has a normal WBC. I am going to check a cortisol level. hb has been stable. He is probably chronically low and has been on midodrine. In addition, he remains on a at least 20mcg/kg/min of propofol. 07/12 The patient remains hypotensive. Patient had evening cortisol level. of 7 whic appears low. i have placed him on Hydrocortisone presently. Wonder if his recent low blood sugars are related to as low adrenal fn. 07/13 I am sure the patient has farily non compliant vascular system after his residential renal failure and cardivascular issues. In addition, is cortisol level was lowa few days ago. I am not sure he is septic at this point. I have ordered a procal that is pending. he does have some diarrhea but unclear how longstanding that is. ( I don't believe it was present on admission). (3) Acute respiratory failure Qualifiers: Respiratory failure complication: hypercapnia Qualified Code(s): J96.02 - Acute respiratory failure with hypercapnia Is this a current diagnosis for this admission?: Yes Plan: The patient has had improvement in his ABGs.. I am hoping that we can extubate him either today or tomorrow. 07/12 I am hoping that now that patient is off sedation that we can wean and extubate him today. 07/13 When i looked at the patiet yesterday his lung compliance was poor . it was about 15 cc/cm3. I am not sure if this was due to to his effusion and possible pulmonary vascular congestion. according to his he has no major lung issues that she is aware of. Hs CXR shws billateral effusions. the left effusion is moderate in size. Ther eis no overt finding of PVC or pneumonia (4) ESRD needing dialysis Is this a current diagnosis for this admission?: Yes Plan: The patient got a full dialysis treatment today. He was not able to haveit 2 days ago when he presented from there with confusion. (5) Sepsis Qualifiers: Sepsis type: sepsis due to unspecified organism Sepsis acute organ dysfunction status: unspecified Qualified Code(s): A41.9 - Sepsis, unspecified organism Is this a current diagnosis for this admission?: Yes Plan: The patient presented with AMS followed by hypotension and hypercapneic failure. It is possible he is septic. He did have 1 positive blood culture with GPCs in clusters in his blood. The patient did have some abnormaliies in his right foot x -ray. The question was raised as to osteomyelitis. from the surface the toe does not seem warm or red. There is a healed pustule on the dorsum of the 2nd toe. May nee MRI or tripasic bone scan to determine the relevance. clinically. In addition, thepatient has a tunnelled catheter which may be the soource. (6) Hypoglycemia Is this a current diagnosis for this admission?: Yes Plan: Unclear why the patient has had a series of low blood sugars. Non have been lower than 50. The patient has not received any insulin or oral hypoglcemic meds recently. He has not had nutritrion for the past 2 days but that usually woulkd not be sufficient to make the average individual hypoglcemia. I did place patient on Hydrocortisone pending cameron evlauation. 07/13 his blood sugars are if anything a little lelevated presently. Can stop dextrose I believe. Critical Time Critical Time (minutes): 30 Level of Care: ICU -: 1. The care of a critical patient is a dynamic process. This note is a credit representative synopsis but static in nature. The timeframe for treatments given in order is not necessarily the actual time these treatments may have been done. 2. This patient requires critical care secondary to ongoing requirements for therapy not offered or safe outside the critical care environment. Transfer to a lower level of care will result in altered life or limb morbidity and mortality. 3. Multidisciplinary rounds completed. 4. ABCDE bundle addressed.
[2020-07-13] MEDS: PROPOFOL 1,000 MG/100 ML INFUS..BTL IV PRN (15:30)
[2020-07-13 15:59] LABS: C DIFFICILE GDH NEGATIVE (NEGATIVE)
[2020-07-13] MEDS: DEXMEDETOMIDINE IN 0.9 % NACL 400 MCG/100 ML RTUPB IV PRN (18:43)
[2020-07-13 18:53] LABS: ARTERIAL BLOOD BASE EXCESS -2.6 mmol/L; ARTERIAL BLOOD FIO2 30%; ARTERIAL BLOOD H2CO3 1.22 mmol/L (1.05-1.35); ARTERIAL BLOOD HCO3 22.6 mmol/L (20-24); ARTERIAL BLOOD O2 SATURATION 98.3 % (94-98); ARTERIAL BLOOD PCO2 40.4 mmHg (35-45); ARTERIAL BLOOD PH 7.37 (7.35-7.45); ARTERIAL BLOOD PO2 120.6 mmHg (80-100); ARTERIAL BLOOD TOTAL CO2 23.8 mmol/L (23-27)
--- NOTE | 2020-07-13 18:59 | Progress Note ---
Provider Note Provider Note: CARDIOLOGY PROGRESS NOTE by Dr. Samia Roper on 07/13/2020. SUBJECTIVE: The patient is intubated and sedated. He did not tolerate vasopressin with his blood pressure dropping further. Hence this was discontinued. At present he is on hydrocortisone 50 mg IV push every 12 hours. This is brought his blood pressure up a little bit and the patient now is on dobutamine at 5mcg/kg/min. There is no arrhythmias seen on the monitor. 1 of his blood cultures was positive for staph aureus. PHYSICAL EXAMINATION: The patient appears to be emaciated and chronically ill. Selected Entries 07/13/20 07/13/20 07/13/20 18:00 18:55 19:00 Heart Rate ( 81 85 Monitors) Respiratory 18 8 L Rate Positive End 5 Expiratory Pressure Blood Pressure 138/109 H Blood Pressure 118 Mean O2 Sat by Pulse 100 100 Oximetry Oxygen Delivery Mechanical Method ( Ventilator includes room air) Fraction of 30 Inspired Oxygen (FIO2) 07/13/20 07/13/20 19:25 19:26 Heart Rate ( 86 87 Monitors) Respiratory Rate Positive End Expiratory Pressure Blood Pressure 82/45 L Blood Pressure 57 Mean O2 Sat by Pulse Oximetry Oxygen Delivery Method ( includes room air) Fraction of Inspired Oxygen (FIO2) HEAD: Is atraumatic normocephalic. EYES: Pupils equal reactive to light. ENT is negative. There is right facial droop present. NECK: Supple. There is no JVD. Carotids are equal there is no bruits. Lungs: Fairly clear. Heart S1-S2 is heard there is no S3 gallop. There is no S4 gallop. There is no rub. ABDOMEN: Soft nontender. There is no hepatosplenomegaly. Bowel sounds well heard. EXTREMITIES: Femorals are diminished. Leg pulses are diminished. There is no pedal edema there is wasting of the muscles of the lower extremities. CLAIM EXAMINER the patient is very lethargic arousable to noxious stimuli. Does seem to move all 4 extremities at times. PSYCHIATRIC not examined due to patient's current mental status. Labs- All tests 24 hr 07/12/20 07/13/20 07/13/20 23:48 03:57 03:57 WBC 7.0 RBC 5.36 Hgb 15.5 Hct 46.7 MCV 87 MCH 29.0 MCHC 33.2 RDW 16.9 H Plt Count 123 L Carbonic Acid HCO3/H2CO3 Ratio ABG pH ABG pCO2 ABG pO2 ABG HCO3 ABG Total CO2 ABG O2 Saturation ABG Base Excess FiO2 Sodium Cancelled Potassium Cancelled Chloride Cancelled Carbon Dioxide Cancelled Anion Gap Cancelled BUN Cancelled Creatinine Cancelled Est GFR ( Amer) Cancelled Est GFR (Non-Af Amer) Cancelled Est GFR (MDRD) Non-Af Cancelled Glucose Cancelled POC Glucose 116 H Calcium Cancelled Triglycerides Cancelled EGFR Cancelled Stl C. Difficile GDH Ag Stl C.difficile Tox A&B 07/13/20 07/13/20 07/13/20 05:38 06:08 14:40 WBC RBC Hgb Hct MCV MCH MCHC RDW Plt Count Carbonic Acid HCO3/H2CO3 Ratio ABG pH ABG pCO2 ABG pO2 ABG HCO3 ABG Total CO2 ABG O2 Saturation ABG Base Excess FiO2 Sodium 135.3 L Potassium 4.3 Chloride 100 Carbon Dioxide 21 L Anion Gap 14 BUN 33 H Creatinine 4.00 H Est GFR ( Amer) 18 L Est GFR (Non-Af Amer) Est GFR (MDRD) Non-Af 15 L Glucose 155 H POC Glucose 134 H Calcium 8.6 Triglycerides 242 H EGFR Stl C. Difficile GDH Ag NEGATIVE Stl C.difficile Tox A&B NEGATIVE 07/13/20 18:30 WBC RBC Hgb Hct MCV MCH MCHC RDW Plt Count Carbonic Acid 1.22 HCO3/H2CO3 Ratio 18:1 ABG pH 7.37 ABG pCO2 40.4 ABG pO2 120.6 H ABG HCO3 22.6 ABG Total CO2 23.8 ABG O2 Saturation 98.3 H ABG Base Excess -2.6 FiO2 30% Sodium Potassium Chloride Carbon Dioxide Anion Gap BUN Creatinine Est GFR ( Amer) Est GFR (Non-Af Amer) Est GFR (MDRD) Non-Af Glucose POC Glucose Calcium Triglycerides EGFR Stl C. Difficile GDH Ag Chest X-Ray 07/09/20 13:50 IMPRESSION: Stable enlarged cardiac silhouette, mild bilateral pleural effusions and bibasilar opacities, left greater than right. Head CT 07/09/20 14:42 IMPRESSION: 1. No significant interval changes since the prior examination dated 07/03/2020. No acute intracranial abnormality. 2. Chronic small vessel ischemic changes changes and mild atrophy. 3. Additional stable findings as above. EVIDENCE OF ACUTE STROKE: NO Foot X-Ray 07/10/20 00:00 IMPRESSION: SEVERE DIFFUSE DEMINERALIZATION. CHRONIC CHANGES IN THE 5TH TOE. PROGRESSIVE DESTRUCTION OF THE 2ND TOE. MAY BE DUE TO OSTEOMYELITIS. Chest X-Ray 07/10/20 16:17 IMPRESSION: 1. Interval placement of endotracheal tube, tip is approximately 3.4 cm proximal to the joselito. Nasogastric tube with the tip overlying the body of the stomach. No evidence of pneumothorax. 2. Lies, unchanged finding since the prior study dated 07/09/2020. Head CT 07/10/20 16:23 IMPRESSION: 1. No significant interval changes since the prior examinations dated 07/09/2020, 07/03/2020 and 04/12/2020. No acute intracranial abnormality. 2. Chronic mild small vessel ischemic changes. Stable appearance to the low attenuated area in the region of the right hankins radiata. Further evaluation with MRI Brain maybe helpful to exclude acute changes. 3. New finding of a fluid collection within the posterior nasopharynx which lies anterior and adjacent to the adenoids and extends into the oropharynx. Interval placement of endotracheal and nasogastric tube since the previous study dated 07/09/2020. This finding may be on an inflammatory basis, possibly due to reflux. Correlation suggested. EVIDENCE OF ACUTE STROKE: NO Chest X-Ray 07/13/20 00:00 IMPRESSION: The enteric tube is malpositioned and its tip projects at the level of the joselito within the thoracic esophagus. Otherwise unchanged radiographic appearance of the chest. Stl C.difficile Tox A&B IMPRESSION/RECOMMENDATION: 1. Acute hypercapnic respiratory failure. Patient intubated. 2. Hypotension: The patient has chronic hypotension in spite of midodrine. Continue dopamine. Cannot exclude sepsis as a cause of the patient's hypotension. His blood pressure is improved on increasing dose of steroids intravenously. Will try to wean the patient off dopamine. Note 1 of his blood cultures positive for staph aureus. 3. End-stage renal disease on hemodialysis. 4. Possible osteomyelitis of the right foot. Recommend antibiotics. 5. Ischemic cardiomyopathy with moderately reduced LV ejection fraction. 6. Coronary artery disease, patient's troponin is elevated but this may be secondary to supply demand mismatch rather than [place] the cause is being hypotension, respiratory failure and renal failure. 7. Diabetes mellitus: Continue high-level antidiabetic treatment. 8. History of prior CVA. 9. 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 Medications reviewed. Medical regimen management plan discussed with attending provider on the case. Medical decision making is of high complexity. 40 minutes spent as patient with more than 50% time spent in direct patient care. Will follow.
[2020-07-13] MEDS: DEXTROSE 5%-WATER 1000 ML 1,000 ML IV PRN (20:04)
[2020-07-13] MEDS: LATANOPROST 0.005% OPH SOLN 2.5 ML OU SCH (21:38)
[2020-07-14] MEDS: DEXMEDETOMIDINE IN 0.9 % NACL 400 MCG/100 ML RTUPB IV PRN (04:48)
[2020-07-14 04:54] LABS: POTASSIUM 3.7 mmol/L (3.6-5.0)
[2020-07-14] MEDS: HEPARIN SOD (PORCINE) 5,000 UNIT/ML 1 ML VIAL SUBCUT SCH ×3 (05:59→22:55)
[2020-07-14] MEDS ORDERED: DEXTROSE 50%-WATER 25 GM/50 ML DISP.SYRIN IV PRN ×2 (06:16)
[2020-07-14] MEDS ORDERED: DEXTROSE 40% GEL 15 GM TUBE PO PRN ×2 (06:16)
[2020-07-14] MEDS ORDERED: GLUCAGON,HUMAN RECOMB 1 MG INJ IM PRN (06:16)
[2020-07-14] MEDS: DOCUSATE SODIUM 100 MG/10 ML UDC NG SCH (10:14)
[2020-07-14] MEDS: CEFTRIAXONE 1 GM/D5W RTU 1 GM/50 ML RTUPB IV SCH (10:22)
[2020-07-14] MEDS: HYDROCORTISONE SOD SUCCINATE INJ/PF 100 MG/2 ML SDV IV SCH ×2 (10:25→22:55)
[2020-07-14] MEDS: FAMOTIDINE INJ/PF 20 MG/2 ML SDV IV SCH (10:25)
[2020-07-14] MEDS: COLCHICINE 0.6 MG TABLET NG SCH ×2 (10:26→17:43)
[2020-07-14] MEDS: DEXTROSE 5%-WATER 1000 ML 1,000 ML IV PRN (10:29)
[2020-07-14] MEDS: MIDODRINE HCL 5 MG TABLET NG SCH ×3 (11:24→17:43)
--- NOTE | 2020-07-14 11:31 | PDOC CRITICAL CARE PROG REPORT ---
General Date:: 07/14/20 ICU Day:: 5 Ventilator Day:: 5 Hospital Day:: 6 Resuscitation Status: Full Code Events in the past 12 to 24 Hours:: The patient presented on 07/10 with acute hypercapneic failure and had to be urge ntly intubated. Since than his ABG has been corrected. He is starting to wake up. He remains on dopamine 10 mcg/min. 07/13 The patient remains on mechanical ventilation. Whe I attempted SBT yesterday he got tachypneic and was breathing very shallow breaths. We will wean off remaining sedation and try again today. Last 3 blood cultures were negative. He remains on low dose dopamine. He did have a low cortisol level. 'We will attempt to wean him off dopamine today 07/14 The patient did do several hours yesterday on SBT. Unfortunately, he requires fairly high support preessures to get rerasonable volmes. On a PS of 20 his TVs are only about 200-250cc. His luns appear stiff for reasons uncelar. His compliance appears to be a about 10-15 cc/cm3. He does have small effusions ( moderate Left ) but this does noit somehow explain these findings. He still remains on dopamine 5 mcg/min. His last 2 blood culutres and sputum were unremarkable. he reais afebbrile witha normal WBC. Reason for ICU Addmission:: Acute Respiratory Failure Physical Exam Vital Signs: Temp Pulse Resp BP Pulse Ox 97.6 F 83 16 149/89 H 100 07/14/20 10:00 07/14/20 10:00 07/14/20 10:00 07/14/20 10:07/14/20 10:00 Intake & Output 07/13/20 07/14/20 07/15/20 06:59 06:59 06:59 Intake Total 318 1424 575 Output Total 350 1104 Balance -32 320 575 Weight 58.6 kg 55.7 kg Weight/Height Weight 55.7 kg Height 5 ft 7 in General appearance: PRESENT: mild distress Head exam: PRESENT: atraumatic, normocephalic Eye exam: PRESENT: EOMI, PERRLA Ear exam: PRESENT: normal external ear exam Mouth exam: PRESENT: neck supple, tongue midline Neck exam: PRESENT: full ROM. ABSENT: carotid bruit Respiratory exam: PRESENT: clear to auscultation jolie - Has some diminished BS at the bases Cardiovascular exam: PRESENT: RRR, +S1, +S2 Pulses: PRESENT: normal femoral pulses GI/Abdominal exam: PRESENT: hypoactive bowel sounds Rectal exam: PRESENT: deferred Gentrourinary exam: ABSENT: ecchymosis, erythema Extremities exam: ABSENT: calf tenderness, clubbing Neurological exam: PRESENT: other - Has woken up and follwoed simple commands w hen sedstionis turned down. Tubes/Lines: PRESENT: Endotracheal Tube Laboratory/Radiographs Laboratory Results: 07/13/20 03:57 07/14/20 04:01 07/13/20 07/14/20 18:30 04:01 Carbonic Acid 1.22 HCO3/H2CO3 Ratio 18:1 ABG pH 7.37 ABG pCO2 40.4 ABG pO2 120.6 H ABG HCO3 22.6 ABG O2 Saturation 98.3 H ABG Base Excess -2.6 FiO2 30% Potassium 3.7 Magnesium 1.7 07/09/20 11:47 Troponin I 0.235 NT-Pro-B Natriuret Pep 617083 H Impressions: Foot X-Ray 07/10/20 00:00 IMPRESSION: SEVERE DIFFUSE DEMINERALIZATION. CHRONIC CHANGES IN THE 5TH TOE. PROGRESSIVE DESTRUCTION OF THE 2ND TOE. MAY BE DUE TO OSTEOMYELITIS. Head CT 07/10/20 16:23 IMPRESSION: 1. No significant interval changes since the prior examinations dated 07/09/2020, 07/03/2020 and 04/12/2020. No acute intracranial abnormality. 2. Chronic mild small vessel ischemic changes. Stable appearance to the low attenuated area in the region of the right hankins radiata. Further evaluation with MRI Brain maybe helpful to exclude acute changes. 3. New finding of a fluid collection within the posterior nasopharynx which lies anterior and adjacent to the adenoids and extends into the oropharynx. Interval placement of endotracheal and nasogastric tube since the previous study dated 07/09/2020. This finding may be on an inflammatory basis, possibly due to reflux. Correlation suggested. EVIDENCE OF ACUTE STROKE: NO Chest X-Ray 07/13/20 00:00 IMPRESSION: The enteric tube is malpositioned and its tip projects at the level of the joselito within the thoracic esophagus. Otherwise unchanged radiographic appearance of the chest. Assessment and Plan - Diagnosis (1) Confusion Is this a current diagnosis for this admission?: Yes Plan: Patient CT of the head is negative's We will get the sepsis work-up Discussed with the Dr. Tavares suggested get all the culture with a history of the MRSA and VRE will give her 1 g of vancomycin 07/11 the patient presented with confusion. Unclear if he was a bit hypercapneic at that time or if it developed later. It is clear that he became extremely obtunded and unresponsive in the sitting of yesterday's acute hypercapneic failure. I am not sure what this was prompted by. I dn't see any soporifics or narcs on the patient's medex. His TFTs are ok. I am checking an ammonia level as well. The patient did get a bit hypoglycemic today . As far as I know he is not a diabetic. 07/12 Hard to assess his mental status presently. Nevertheless, the hypercarbia has resolved Cortisol level was low. TFTs and ammonia was normal 07/13 I beleieve that the patient may have worsening C02 narcosis for a few days prior to admission which led to increasing confusion. he does have a history of RUDY but has not used his CPAP latlely according to his . 07/14 Difficult to He does not appear to have focal findings.discern his nderlying mental status presently. we should have a better idea post-extubation. (2) Hypotension Qualifiers: Hypotension type: idiopathic hypotension Qualified Code(s): I95.0 - Idiopathic hypotension Is this a current diagnosis for this admission?: Yes Plan: Patient is currently on the dry side will hold the dialysis today electrolytes is all stable as per discussed with the Dr. Tavares patient always running in the low blood pressures will increase the Midrin 10 mg every 8 and also do some sepsis work-up 07/11 Unclear what his recent hypotension is due to. The patient has a normal WBC. I am going to check a cortisol level. hb has been stable. He is probably chronically low and has been on midodrine. In addition, he remains on a at least 20mcg/kg/min of propofol. 07/12 The patient remains hypotensive. Patient had evening cortisol level. of 7 whic appears low. i have placed him on Hydrocortisone presently. Wonder if his recent low blood sugars are related to as low adrenal fn. 07/13 I am sure the patient has farily non compliant vascular system after his correction renal failure and cardivascular issues. In addition, is cortisol level was lowa few days ago. I am not sure he is septic at this point. I have ordered a procal that is pending. he does have some diarrhea but unclear how longstanding that is. ( I don't believe it was present on admission). 07/14 he does remains on a small dose of dopamine'As note his cortisol lelvel ahs beeb low as well. (3) Acute respiratory failure Qualifiers: Respiratory failure complication: hypercapnia Qualified Code(s): J96.02 - Acute respiratory failure with hypercapnia Is this a current diagnosis for this admission?: Yes Plan: The patient has had improvement in his ABGs.. I am hoping that we can extubate him either today or tomorrow. 07/12 I am hoping that now that patient is off sedation that we can wean and extubate him today. 07/13 When i looked at the patiet yesterday his lung compliance was poor . it was a bout 15 cc/cm3. I am not sure if this was due to to his effusion and possible pulmonary vascular congestion. according to his he has no major lung issues that she is aware of. Hs CXR shws billateral effusions. the left effusion is moderate in size. Ther eis no overt finding of PVC or pneumonia (4) ESRD needing dialysis Is this a current diagnosis for this admission?: Yes (5) Sepsis Qualifiers: Sepsis type: sepsis due to unspecified organism Sepsis acute organ dysfunction status: unspecified Qualified Code(s): A41.9 - Sepsis, unspecified organism Is this a current diagnosis for this admission?: Yes Plan: The patient presented with AMS followed by hypotension and hypercapneic failure. It is possible he is septic. He did have 1 positive blood culture with GPCs in clusters in his blood. The patient did have some abnormaliies in his right foot x -ray. The question was raised as to osteomyelitis. from the surface the toe does not seem warm or red. There is a healed pustule on the dorsum of the 2nd toe. May nee MRI or tripasic bone scan to determine the relevance. clinically. In addition, the patient has a tunnelled catheter which may be the source. 07/14 as noted there has been no clear signof a septic focus to date. (6) Hypoglycemia Is this a current diagnosis for this admission?: Yes Plan: Unclear why the patient has had a series of low blood sugars. Non have been lower than 50. The patient has not received any insulin or oral hypoglcemic meds recently. He has not had nutritrion for the past 2 days but that usually woulkd not be sufficient to make the average individual hypoglcemia. I did place patient on Hydrocortisone pending cameron evlauation. 07/13 his blood sugars are if anything a little lelevated presently. Can stop dextrose I believe. Critical Time Critical Time (minutes): 35 Level of Care: ICU -: 1. The care of a critical patient is a dynamic process. This note is a solar sales representative and assessor synopsis but static in nature. The timeframe for treatments given in order is not necessarily the actual time these treatments may have been done. 2. This patient requires critical care secondary to ongoing requirements for therapy not offered or safe outside the critical care environment. Transfer to a lower level of care will result in altered life or limb morbidity and mortality. 3. Multidisciplinary rounds completed. 4. ABCDE bundle addressed.
[2020-07-14] MEDS: INSULIN REG, HUMAN 100 UNIT/ML 3 ML VIAL (PYX) SUBCUT SCH ×2 (12:28→17:43)
--- NOTE | 2020-07-14 12:55 | Progress Note ---
Provider Note Provider Note: CARDIOLOGY PROGRESS NOTE by Dr. Samia Roper on 07/14/2020. SUBJECTIVE: The patient remains status quo. Last night he had bradycardia and second-degree Mobitz type I AV block. This probably is due to propofol infusion. This has been stopped the patient now is sinus rhythm with first- degree AV block with a heart rate in the 80s. There is no ventricular arrhythmias seen on the monitor and there is no rapid atrial arrhythmias. The patient still on dopamine at 5 mg/kg/min. PHYSICAL EXAMINATION: The patient appears to be emaciated and chronically ill and malnourished. Selected Entries 07/14/20 16:00 Pulse Rate 78 Respiratory 11 L Rate Blood Pressure 148/88 H [Upper Arm] Blood Pressure 108 Mean [Upper Arm ] Blood Pressure Supine Position [Upper Arm] O2 Sat by Pulse 100 Oximetry Oxygen Delivery Mechanical Method ( Ventilator includes room air) Fraction of 25 Inspired Oxygen (FIO2) HEAD: Is atraumatic normocephalic. EYES: Pupils equal reactive to light. ENT is negative. There is right facial droop present. NECK: Supple. There is no JVD. Carotids are equal there is no bruits. Lungs: Fairly clear. Heart S1-S2 is heard there is no S3 gallop. There is no S4 gallop. There is no rub. ABDOMEN: Soft nontender. There is no hepatosplenomegaly. Bowel sounds well heard. EXTREMITIES: Femorals are diminished. Leg pulses are diminished. There is no pedal edema there is wasting of the muscles of the lower extremities. 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 Does seem to move all 4 extremities at times. PSYCHIATRIC not examined due to patient's current mental status. Chest X-Ray 07/09/20 13:50 IMPRESSION: Stable enlarged cardiac silhouette, mild bilateral pleural effusions and bibasilar opacities, left greater than right. Head CT 07/09/20 14:42 IMPRESSION: 1. No significant interval changes since the prior examination dated 07/03/2020. No acute intracranial abnormality. 2. Chronic small vessel ischemic changes changes and mild atrophy. 3. Additional stable findings as above. EVIDENCE OF ACUTE STROKE: NO Foot X-Ray 07/10/20 00:00 IMPRESSION: SEVERE DIFFUSE DEMINERALIZATION. CHRONIC CHANGES IN THE 5TH TOE. PROGRESSIVE DESTRUCTION OF THE 2ND TOE. MAY BE DUE TO OSTEOMYELITIS. Chest X-Ray 07/10/20 16:17 IMPRESSION: 1. Interval placement of endotracheal tube, tip is approximately 3.4 cm proximal to the joselito. Nasogastric tube with the tip overlying the body of the stomach. No evidence of pneumothorax. 2. Lies, unchanged finding since the prior study dated 07/09/2020. Head CT 07/10/20 16:23 IMPRESSION: 1. No significant interval changes since the prior examinations dated 07/09/2020, 07/03/2020 and 04/12/2020. No acute intracranial abnormality. 2. Chronic mild small vessel ischemic changes. Stable appearance to the low attenuated area in the region of the right hankins radiata. Further evaluation with MRI Brain maybe helpful to exclude acute changes. 3. New finding of a fluid collection within the posterior nasopharynx which lies anterior and adjacent to the adenoids and extends into the oropharynx. Interval placement of endotracheal and nasogastric tube since the previous study dated 07/09/2020. This finding may be on an inflammatory basis, possibly due to reflux. Correlation suggested. EVIDENCE OF ACUTE STROKE: NO Chest X-Ray 07/13/20 00:00 IMPRESSION: The enteric tube is malpositioned and its tip projects at the level of the joselito within the thoracic esophagus. Otherwise unchanged radiographic appearance of the chest. Labs- All tests 24 hr 07/13/20 07/13/20 07/14/20 19:34 23:40 04:01 Potassium 3.7 POC Glucose 190 H 172 H Magnesium 1.7 07/14/20 07/14/20 07/14/20 06:07 10:44 17:37 Potassium POC Glucose 224 H 194 H 173 H Magnesium IMPRESSION/RECOMMENDATION: 1. Acute hypercapnic respiratory failure. Patient intubated. 2. Hypotension: The patient has chronic hypotension in spite of midodrine. Continue dopamine. Cannot exclude sepsis as a cause of the patient's hypotension. His blood pressure is improved on increasing dose of steroids intravenously. Will try to wean the patient off dopamine. Note 1 of his blood cultures positive for staph aureus. In spite of this no definite evidence of suspect sepsis. The patient's cortisol level is low. The patient is on replacement hydrocortisone intravenously. We will also add 1 dose of Florinef and watch the patient's potassium. 3. End-stage renal disease on hemodialysis. 4. Possible osteomyelitis of the right foot. Recommend antibiotics. 5. Ischemic cardiomyopathy with moderately reduced LV ejection fraction. 6. Coronary artery disease, patient's troponin is elevated but this may be secondary to supply demand mismatch rather than [place] the cause is being hypotension, respiratory failure and renal failure. 7. Diabetes mellitus: Continue high-level antidiabetic treatment. 8. History of prior CVA. 9. 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 Medications reviewed. Medications added after discussion with the drip pumper especially Jay. Medical regimen management plan discussed with attending provider on the case. Medical decision making is of high complexity. 40 minutes spent as patient with more than 50% time spent in direct patient care. Will follow.
[2020-07-14] MEDS ORDERED: FLUDROCORTISONE ACETATE 0.1 MG TABLET PO ONE (14:30)
[2020-07-14] MEDS: LATANOPROST 0.005% OPH SOLN 2.5 ML OU SCH (22:56)
[2020-07-15] MEDS: INSULIN REG, HUMAN 100 UNIT/ML 3 ML VIAL (PYX) SUBCUT SCH ×4 (00:02→18:01)
[2020-07-15] MEDS ORDERED: FENTANYL CITRATE INJ/PF 100 MCG/2 ML AMPUL IV ONE (05:30)
[2020-07-15] MEDS ORDERED: MIDAZOLAM 2 MG/2 ML INJ IV ONE (05:30)
[2020-07-15] MEDS ORDERED: MIDAZOLAM 2 MG/2 ML INJ ONE (05:31)
[2020-07-15] MEDS ORDERED: FENTANYL CITRATE INJ/PF 100 MCG/2 ML AMPUL ONE (05:31)
--- NOTE | 2020-07-15 06:44 | Operative Report ---
Bedside Procedure - History of Present Illness Indication for Procedure: Aspiration Date: 07/15/20 Provider: GIOVANNA JIMENEZ - Additional Procedures Therapeutic bronchoscopy Time performed: 06:00 Notes: Mr. Tiwari is a 64-year-old male with multiple comorbidities in the ICU with respiratory failure on mechanical ventilation. His NG tube was found to be in his right lung with tube feeds running at 20 cc an hour. A therapeutic bronchoscopy was performed. Patient was premedicated with 4 mg of Versed and 50 mg of fentanyl IV. Adequate conscious sedation was achieved. The bronchoscope was advanced through the endotracheal tube. The joselito was well visualized and sharp he had thin clear secretions which were suctioned. Bronchoscope was advanced into the left mainstem and each segment and subsegment were well visualized there was a moderate amount of clear secretions which were suctioned. There were no other findings. The bronchoscope was subsequently withdrawn and advanced into the right mainstem. Each segment and subsegment well-visualized small amount of her secretions were suctioned no specific masses or lesions were identified. The right middle lobe and right lower lobe were identified and well visualized no abnormalities seen all areas were suctioned clear. The bronchoscope was then withdrawn. Patient tolerated procedure well without evidence of desaturation or complications.
[2020-07-15 07:13] LABS: ABSOLUTE LYMPHOCYTES (AUTO) 0.7 10^3/uL (0.5-4.7); ABSOLUTE MONOCYTES (AUTO) 0.3 10^3/uL (0.1-1.4); ABSOLUTE NEUT (AUTO) 5.8 10^3/uL (1.7-8.2); BASOPHILS % (AUTO) 0.2 % (0-2); HEMATOCRIT 41.6 % (37.9-51.0); HEMOGLOBIN 13.9 g/dL (13.5-17.0); LYMPHOCYTES % (AUTO) 10.5 % (13-45); MEAN CORPUSCULAR HEMOGLOBIN 28.9 pg (27.0-33.4); MEAN CORPUSCULAR HGB CONC 33.4 g/dL (32.0-36.0); MEAN CORPUSCULAR VOLUME 87 fl (80-97); MONOCYTES % (AUTO) 4.2 % (3-13); RED CELL DISTRIBUTION WIDTH 16.6 % (11.5-14.0); SEGMENTED NEUTROPHILS % (AUTO) 85.1 % (42-78); TOTAL CELLS COUNTED % (AUTO) 100 %; WHITE BLOOD COUNT 6.8 10^3/uL (4.0-10.5)
[2020-07-15] MEDS: HEPARIN SOD (PORCINE) 5,000 UNIT/ML 1 ML VIAL SUBCUT SCH ×3 (07:33→21:47)
[2020-07-15 08:21] LABS: ALBUMIN 3.2 g/dL (3.5-5.0); ALKALINE PHOSPHATASE 134 U/L (38-126); ANION GAP 17 (5-19); ASPARTATE AMINO TRANSFERASE 20 U/L (17-59); BILIRUBIN,DIRECT 0.8 mg/dL (0.0-0.4); BILIRUBIN,TOTAL 0.8 mg/dL (0.2-1.3); BLOOD UREA NITROGEN 35 mg/dL (7-20); CALCIUM 8.6 mg/dL (8.4-10.2); CARBON DIOXIDE 20 mmol/L (22-30); CHLORIDE 94 mmol/L (98-107); GLUCOSE 201 mg/dL (75-110); POTASSIUM 3.6 mmol/L (3.6-5.0)
[2020-07-15 08:45] LABS: PLATELET COUNT 87 10^3/uL (150-450)
[2020-07-15] MEDS: DOCUSATE SODIUM 100 MG/10 ML UDC NG SCH (10:11)
[2020-07-15] MEDS: CEFTRIAXONE 1 GM/D5W RTU 1 GM/50 ML RTUPB IV SCH (10:11)
[2020-07-15] MEDS: HYDROCORTISONE SOD SUCCINATE INJ/PF 100 MG/2 ML SDV IV SCH ×2 (10:11→21:48)
[2020-07-15] MEDS: FAMOTIDINE INJ/PF 20 MG/2 ML SDV IV SCH (10:11)
[2020-07-15] MEDS: MIDODRINE HCL 5 MG TABLET NG SCH ×5 (10:11→21:46)
[2020-07-15] MEDS: DEXTROSE 5%-WATER 1000 ML 1,000 ML IV PRN (10:12)
--- NOTE | 2020-07-15 10:16 | Progress Note ---
Provider Note Provider Note: CARDIOLOGY PROGRESS NOTE by Dr. Oscar Vázquez on 07/15/2020. SUBJECTIVE: The patient is awake today and history is that he has no chest pain. He also gets states he has no shortness of breath. The patient blood pressure is much improved with the addition of Florinef. But he is also on midodrine. His dopamine drip has been discontinued. His blood pressures remained stable. 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 He is not on SA or AV horace blocking agents. PHYSICAL EXAMINATION: Patient appears to be masticated malnourished. In no acute distress. He is intubated and and is off sedation. Selected Entries 07/15/20 07/15/20 07/15/20 09:24 09:45 10:29 Heart Rate ( 73 Monitors) Respiratory 13 Rate Blood Pressure Blood Pressure Mean O2 Sat by Pulse 100 Oximetry Fraction of 30 Inspired Oxygen (FIO2) 07/15/20 10:30 Heart Rate ( Monitors) Respiratory 15 Rate Blood Pressure 104/85 Blood Pressure 91 Mean O2 Sat by Pulse 100 Oximetry Fraction of Inspired Oxygen (FIO2) HEAD: Is atraumatic normocephalic. EYES: Pupils equal reactive to light. ENT is negative. There is right facial droop present. NECK: Supple. There is no JVD. Carotids are equal there is no bruits. Lungs: Fairly clear. Heart S1-S2 is heard there is no S3 gallop. There is no S4 gallop. There is no rub. ABDOMEN: Soft nontender. There is no hepatosplenomegaly. Bowel sounds well heard. EXTREMITIES: Femorals are diminished. Leg pulses are diminished. There is no pedal edema there is wasting of the muscles of the lower extremities. 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 Does seem to move all 4 extremities at times. PSYCHIATRIC not examined due to patient's current mental status. Labs- All tests 24 hr 07/14/20 07/14/20 07/15/20 17:37 23:41 06:15 WBC RBC Hgb Hct MCV MCH MCHC RDW Plt Count Lymph % (Auto) [place] % (Auto) Eos % (Auto) Baso % (Auto) Absolute Neuts (auto) Absolute Lymphs (auto) Absolute Monos (auto) Absolute Eos (auto) Absolute Basos (auto) Seg Neutrophils % Sodium 131.4 L Potassium 3.6 Chloride 94 L Carbon Dioxide 20 L Anion Gap 17 BUN 35 H Creatinine 3.37 H Est GFR ( Amer) 22 L Est GFR (MDRD) Non-Af 19 L Glucose 201 H POC Glucose 173 H 140 H Calcium 8.6 Total Bilirubin 0.8 Direct Bilirubin 0.8 H Neonat Total Bilirubin Not Reportable Neonat Direct Bilirubin Not Reportable Neonat Indirect Bili Not Reportable AST 20 ALT 8 Alkaline Phosphatase 134 H Total Protein 8.0 Albumin 3.2 L 07/15/20 07/15/20 06:15 11:11 WBC 6.8 RBC 4.80 Hgb 13.9 Hct 41.6 MCV 87 MCH 28.9 MCHC 33.4 RDW 16.6 H Plt Count 87 L Lymph % (Auto) 10.5 L [place] % (Auto) 4.2 Eos % (Auto) 0.0 Baso % (Auto) 0.2 Absolute Neuts (auto) 5.8 Absolute Lymphs (auto) 0.7 Absolute Monos (auto) 0.3 Absolute Eos (auto) 0.0 Absolute Basos (auto) 0.0 Seg Neutrophils % 85.1 H Sodium Potassium Chloride Carbon Dioxide Anion Gap BUN Creatinine Est GFR ( Amer) Est GFR (MDRD) Non-Af Glucose POC Glucose 191 H Calcium Total Bilirubin Direct Bilirubin Neonat Total Bilirubin Neonat Direct Bilirubin Neonat Indirect Bili AST ALT Alkaline Phosphatase Total Protein Albumin Chest X-Ray 07/09/20 13:50 IMPRESSION: Stable enlarged cardiac silhouette, mild bilateral pleural effusions and bibasilar opacities, left greater than right. Head CT 07/09/20 14:42 IMPRESSION: 1. No significant interval changes since the prior examination dated 07/03/2020. No acute intracranial abnormality. 2. Chronic small vessel ischemic changes changes and mild atrophy. 3. Additional stable findings as above. EVIDENCE OF ACUTE STROKE: NO Foot X-Ray 07/10/20 00:00 IMPRESSION: SEVERE DIFFUSE DEMINERALIZATION. CHRONIC CHANGES IN THE 5TH TOE. PROGRESSIVE DESTRUCTION OF THE 2ND TOE. MAY BE DUE TO OSTEOMYELITIS. Chest X-Ray 07/10/20 16:17 IMPRESSION: 1. Interval placement of endotracheal tube, tip is approximately 3.4 cm proximal to the joselito. Nasogastric tube with the tip overlying the body of the stomach. No evidence of pneumothorax. 2. Lies, unchanged finding since the prior study dated 07/09/2020. Head CT 07/10/20 16:23 IMPRESSION: 1. No significant interval changes since the prior examinations da joshua 07/09/2020, 07/03/2020 and 04/12/2020. No acute intracranial abnormality. 2. Chronic mild small vessel ischemic changes. Stable appearance to the low attenuated area in the region of the right hankins radiata. Further evaluation with MRI Brain maybe helpful to exclude acute changes. 3. New finding of a fluid collection within the posterior nasopharynx which lies anterior and adjacent to the adenoids and extends into the oropharynx. Interval placement of endotracheal and nasogastric tube since the previous study dated 07/09/2020. This finding may be on an inflammatory basis, possibly due to reflux. Correlation suggested. EVIDENCE OF ACUTE STROKE: NO Chest X-Ray 07/13/20 00:00 IMPRESSION: The enteric tube is malpositioned and its tip projects at the level of the joselito within the thoracic esophagus. Otherwise unchanged radiographic appearance of the chest. IMPRESSION/RECOMMENDATION: 1. Acute hypercapnic respiratory failure. Patient intubated. 2. Hypotension: The patient has chronic hypotension in spite of midodrine. Continue dopamine. Cannot exclude sepsis as a cause of the patient's hypotension. His blood pressure is improved on increasing dose of steroids intravenously. Will try to wean the patient off dopamine. Note 1 of his blood cultures positive for staph aureus. In spite of this no definite evidence of suspect sepsis. The patient's cortisol level is low. The patient is on replacement hydrocortisone intravenously. Will give an extra dose of Florinef today. His potassium is 3.6. Will watch. 3. End-stage renal disease on hemodialysis. 4. Possible osteomyelitis of the right foot. Recommend antibiotics. 5. Ischemic cardiomyopathy with moderately reduced LV ejection fraction. 6. Coronary artery disease, patient's troponin is elevated but this may be secondary to supply demand mismatch rather than IA the cause is being hypotension, respiratory failure and renal failure. 7. Diabetes mellitus: Continue high-level antidiabetic treatment. 8. History of prior CVA. 9. 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 Medications reviewed. Extra dose of Florinef given. Medical regimen management plan discussed with attending provider on the case. Medical decision making is of high complexity. 40 minutes spent as patient with more than 50% time spent in direct patient care. Will follow.
[2020-07-15] MEDS: COLCHICINE 0.6 MG TABLET NG SCH ×3 (10:17→17:58)
[2020-07-15] MEDS ORDERED: FLUDROCORTISONE ACETATE 0.1 MG TABLET PO ONE (11:00)
--- NOTE | 2020-07-15 12:00 | PDOC CRITICAL CARE PROG REPORT ---
General Date:: 07/15/20 ICU Day:: 4 Ventilator Day:: 4 Hospital Day:: 4 Resuscitation Status: Full Code Reason for ICU Addmission:: Acute Respiratory Failure Physical Exam Vital Signs: Temp Pulse Resp BP Pulse Ox 98.3 F 68 15 76/60 L 100 07/15/20 09:17 07/15/20 10:00 07/15/20 11:00 07/15/20 10:46 07/15/20 11:00 Intake & Output 07/14/20 07/15/20 07/16/20 06:59 06:59 06:59 Intake Total 3401 189 0877 Output Total 1104 150 Balance 688 674 4072 Weight 55.7 kg 57.4 kg Weight/Height Weight 57.4 kg Height 5 ft 7 in General appearance: PRESENT: mild distress, thin Head exam: PRESENT: atraumatic, normocephalic Eye exam: PRESENT: conjunctiva pink Mouth exam: PRESENT: neck supple Neck exam: ABSENT: JVD, lymphadenopathy, tenderness, thyromegaly Respiratory exam: ABSENT: accessory muscle use, chest wall tenderness, rales, tachypnea Cardiovascular exam: PRESENT: RRR, +S1, +S2 Pulses: PRESENT: normal carotid pulses, normal femoral pulses GI/Abdominal exam: PRESENT: normal bowel sounds, soft. ABSENT: tenderness Rectal exam: PRESENT: deferred Gentrourinary exam: ABSENT: erythema, scrotal swelling Extremities exam: ABSENT: calf tenderness, clubbing Musculoskeletal exam: PRESENT: full ROM Neurological exam: PRESENT: other - The patient's menatal statusis hard to fathom. Even ewhen he appears awake he has hypopneic spells on the ventialtor. H e appears exquisitely sensive to minimal doses ofsedation. It may suggest a tendency towrds Central sleep apnea for uncelar reasons. Laboratory/Radiographs Laboratory Results: 07/15/20 06:15 07/15/20 06:15 07/15/20 07/15/20 06:15 06:15 WBC 6.8 RBC 4.80 Hgb 13.9 Hct 41.6 MCV 87 MCH 28.9 MCHC 33.4 RDW 16.6 H Plt Count 87 L Seg Neutrophils % 85.1 H Sodium 131.4 L Potassium 3.6 Chloride 94 L Carbon Dioxide 20 L Anion Gap 17 BUN 35 H Creatinine 3.37 H Est GFR ( Amer) 22 L Glucose 201 H Calcium 8.6 Total Bilirubin 0.8 AST 20 Alkaline Phosphatase 134 H Total Protein 8.0 Albumin 3.2 L 07/09/20 16:25 Blood Blood Culture - Final NO GROWTH IN 5 DAYS 07/09/20 11:47 Troponin I 0.235 NT-Pro-B Natriuret Pep [id number] H Impressions: Foot X-Ray 07/10/20 00:00 IMPRESSION: SEVERE DIFFUSE DEMINERALIZATION. CHRONIC CHANGES IN THE 5TH TOE. PROGRESSIVE DESTRUCTION OF THE 2ND TOE. MAY BE DUE TO OSTEOMYELITIS. Head CT 07/10/20 16:23 IMPRESSION: 1. No significant interval changes since the prior examinations dated 07/09/2020, 07/03/2020 and 04/12/2020. No acute intracranial abnormality. 2. Chronic mild small vessel ischemic changes. Stable appearance to the low attenuated area in the region of the right hankins radiata. Further evaluation with MRI Brain maybe helpful to exclude acute changes. 3. New finding of a fluid collection within the posterior nasopharynx which lies anterior and adjacent to the adenoids and extends into the oropharynx. Interval placement of endotracheal and nasogastric tube since the previous study dated 07/09/2020. This finding may be on an inflammatory basis, possibly due to reflux. Correlation suggested. EVIDENCE OF ACUTE STROKE: NO Assessment and Plan - Diagnosis (1) Confusion Is this a current diagnosis for this admission?: Yes Plan: Patient CT of the head is negative's We will get the sepsis work-up Discussed with the Dr. Tavares suggested get all the culture with a history of the MRSA and VRE will give her 1 g of vancomycin 07/11 the patient presented with confusion. Unclear if he was a bit hypercapneic at that time or if it developed later. It is clear that he became extremely obtunded and unresponsive in the sitting of yesterday's acute hypercapneic failure. I am not sure what this was prompted by. I dn't see any soporifics or narcs on the patient's medex. His TFTs are ok. I am checking an ammonia level as well. The patient did get a bit hypoglycemic today . As far as I know he is not a diabetic. 07/12 Hard to assess his mental status presently. Nevertheless, the hypercarbia has resolved Cortisol level was low. TFTs and ammonia was normal 07/13 I beleieve that the patient may have worsening C02 narcosis for a few days prior to admission which led to increasing confusion. he does have a history of RUDY but has not used his CPAP latlely according to his . 07/14 Difficult to He does not appear to have focal findings.discern his nderlying mental status presently. we should have a better idea post-extubation. 07/15 The patient is awke today and shaking his head yes and n in responsive to my queries (2) Hypotension Qualifiers: Hypotension type: idiopathic hypotension Qualified Code(s): I95.0 - Idiopathic hypotension Is this a current diagnosis for this admission?: Yes Plan: Patient is currently on the dry side will hold the dialysis today electrolytes is all stable as per discussed with the Dr. Tavares patient always running in the low blood pressures will increase the Midrin 10 mg every 8 and also do some sepsis work-up 07/11 Unclear what his recent hypotension is due to. The patient has a normal WBC. I am going to check a cortisol level. hb has been stable. He is probably chronically low and has been on midodrine. In addition, he remains on a at least 20mcg/kg/min of propofol. 07/12 The patient remains hypotensive. Patient had evening cortisol level. of 7 whic appears low. i have placed him on Hydrocortisone presently. Wonder if his recent low blood sugars are related to as low adrenal fn. 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 In addition, is cortisol level was lowa few days ago. I am not sure he is septic at this point. I have ordered a procal that is pending. he does have some diarrhea but unclear how longstanding that is. ( I don't believe it was present on admission). 07/14 He does remains on a small dose of dopamine'. As noted his cortisol level has been low as well. 06/18o Unclear why his cortisol was low. Hei sgetting hydrocortison. (3) Acute respiratory failure Qualifiers: Respiratory failure complication: hypercapnia Qualified Code(s): J96.02 - Acute respiratory failure with hypercapnia Is this a current diagnosis for this admission?: Yes Plan: The patient has had improvement in his ABGs.. I am hoping that we can extubate him either today or tomorrow. 07/12 I am hoping that now that patient is off sedation that we can wean and extubate him today. 07/13 When i looked at the patient yesterday his lung compliance was poor . it was about 15 cc/cm3. I am not sure if this was due to to his effusion and possible pulmonary vascular congestion. according to his he has no major lung issues that she is aware of. Hs CXR shws billateral effusions. the left effusion is moderate in size. Ther eis no overt finding of PVC or pneumonia. As noted the patient has a confirmed history of RUDY.The patient had not been using ot lately. I wonder given recent events I wonder if there may be an element of CSA. His oxygenation s fine. As noted previously his lungs and or chest wall remain fairly non-compliant. His TFTs were ok. He does not appear septic. His CXR shows a small to moderate pleural effusion (4) ESRD needing dialysis Is this a current diagnosis for this admission?: Yes Plan: The patient got a full dialysis treatment today. He was not able to haveit 2 days ago when he presented from there with confusion. (5) Sepsis Qualifiers: Sepsis type: sepsis due to unspecified organism Sepsis acute organ dysfunction status: unspecified Qualified Code(s): A41.9 - Sepsis, unspecified organism Is this a current diagnosis for this admission?: Yes Plan: The patient presented with AMS followed by hypotension and hypercapneic failure. It is possible he is septic. He did have 1 positive blood culture with GPCs in clusters in his blood. The patient did have some abnormaliies in his right foot x -ray. The question was raised as to osteomyelitis. from the surface the toe does not seem warm or red. There is a healed pustule on the dorsum of the 2nd toe. May nee MRI or tripasic bone scan to determine the relevance. clinically. In addition, the patient has a tunnelled catheter which may be the source. 07/14 as noted there has been no clear sign of a septic focus to date. (6) Hypoglycemia Is this a current diagnosis for this admission?: Yes Plan: Unclear why the patient has had a series of low blood sugars. Non have been lower than 50. The patient has not received any insulin or oral hypoglcemic meds recently. He has not had nutritrion for the past 2 days but that usually woulkd not be sufficient to make the average individual hypoglcemia. I did place patient on Hydrocortisone pending cameron evlauation. 07/13 his blood sugars are if anything a little lelevated presently. Can stop dextrose I believe. 07/15 Blood sugars are elevated now. The patient is on glucometers with coverage poresently. Critical Time Critical Time (minutes): 35 Level of Care: ICU -: 1. The care of a critical patient is a dynamic process. This note is a repre sentative synopsis but static in nature. The timeframe for treatments given in order is not necessarily the actual time these treatments may have been done. 2. This patient requires critical care secondary to ongoing requirements for therapy not offered or safe outside the critical care environment. Transfer to a lower level of care will result in altered life or limb morbidity and mortality. 3. Multidisciplinary rounds completed. 4. ABCDE bundle addressed.
--- NOTE | 2020-07-15 12:24 | RADIOLOGY REPORT (SQ) ---
EXAM DESCRIPTION: CHEST SINGLE VIEW IMAGES COMPLETED DATE/TIME: 07/15/2020 11:15 am REASON FOR STUDY: OGT placement COMPARISON: Chest radiograph 07/13/2020 NUMBER OF VIEWS: One view. TECHNIQUE: Single frontal radiographic view of the chest acquired. LIMITATIONS: None. FINDINGS: LUNGS AND PLEURA: Similar opacification at the left lung base with probable small bilatera l pleural effusions. No definite pneumothorax. MEDIASTINUM AND HILAR STRUCTURES: No masses. Contour normal. HEART AND VASCULAR STRUCTURES: Heart normal in size. Normal vasculature. BONES: No acute findings. HARDWARE: An enteric tube is present with the tip projecting over the left upper quadrant. Dialysis catheter is unchanged with the tip projecting over the right atrium. OTHER: No other significant finding. IMPRESSION: Repositioning of the enteric tube with the tip now projecting over the left upper quadra nt. Otherwise, stable examination. TECHNICAL DOCUMENTATION: JOB ID: [id number] 2010 [employer]- All Rights Reserved Reading location - IP/workstation name: [email or web address]
[2020-07-15] MEDS: LATANOPROST 0.005% OPH SOLN 2.5 ML OU SCH (21:49)
[2020-07-16] MEDS: INSULIN REG, HUMAN 100 UNIT/ML 3 ML VIAL (PYX) SUBCUT SCH ×4 (01:54→19:08)
[2020-07-16] MEDS ORDERED: HEPARIN SOD (PORCINE) 1,000 UNIT/ML 10 ML VIAL IV PRN (05:00)
[2020-07-16] MEDS: HEPARIN SOD (PORCINE) 5,000 UNIT/ML 1 ML VIAL SUBCUT SCH ×3 (06:17→22:59)
[2020-07-16 06:49] LABS: ANION GAP 13 (5-19); BLOOD UREA NITROGEN 44 mg/dL (7-20); CALCIUM 8.7 mg/dL (8.4-10.2); CARBON DIOXIDE 22 mmol/L (22-30); CHLORIDE 91 mmol/L (98-107); GLUCOSE 181 mg/dL (75-110); PHOSPHORUS 4.2 mg/dL (2.5-4.5); POTASSIUM 3.3 mmol/L (3.6-5.0)
[2020-07-16 07:28] LABS: ABSOLUTE LYMPHOCYTES (AUTO) 0.5 10^3/uL (0.5-4.7); ABSOLUTE MONOCYTES (AUTO) 0.3 10^3/uL (0.1-1.4); ABSOLUTE NEUT (AUTO) 3.3 10^3/uL (1.7-8.2); BASOPHILS % (AUTO) 0.3 % (0-2); EOSINOPHILS % (AUTO) 0.1 % (0-6); HEMATOCRIT 40.2 % (37.9-51.0); HEMOGLOBIN 13.4 g/dL (13.5-17.0); LYMPHOCYTES % (AUTO) 12.3 % (13-45); MEAN CORPUSCULAR HEMOGLOBIN 28.8 pg (27.0-33.4); MEAN CORPUSCULAR HGB CONC 33.3 g/dL (32.0-36.0); MEAN CORPUSCULAR VOLUME 87 fl (80-97); MONOCYTES % (AUTO) 7.4 % (3-13); RED BLOOD COUNT 4.65 10^6/uL (4.35-5.55); RED CELL DISTRIBUTION WIDTH 16.7 % (11.5-14.0); SEGMENTED NEUTROPHILS % (AUTO) 79.9 % (42-78); TOTAL CELLS COUNTED % (AUTO) 100 %; WHITE BLOOD COUNT 4.1 10^3/uL (4.0-10.5)
[2020-07-16 07:30] LABS: PLATELET COUNT 77 10^3/uL (150-450)
[2020-07-16] MEDS: DOCUSATE SODIUM 100 MG/10 ML UDC NG SCH (09:02)
[2020-07-16] MEDS: HYDROCORTISONE SOD SUCCINATE INJ/PF 100 MG/2 ML SDV IV SCH ×2 (09:16→23:16)
[2020-07-16] MEDS: CEFTRIAXONE 1 GM/D5W RTU 1 GM/50 ML RTUPB IV SCH (09:16)
[2020-07-16] MEDS: FAMOTIDINE INJ/PF 20 MG/2 ML SDV IV SCH (09:16)
[2020-07-16] MEDS: COLCHICINE 0.6 MG TABLET NG SCH ×2 (09:17→18:42)
[2020-07-16] MEDS: MIDODRINE HCL 5 MG TABLET NG SCH ×4 (09:18→19:06)
[2020-07-16] MEDS: DEXTROSE 5%-WATER 1000 ML 1,000 ML IV PRN (15:02)
[2020-07-16] MEDS: CEFEPIME 1 GM/D5W RTU 1 GM/50 ML RTUPB IV SCH ×2 (15:45→23:15)
--- NOTE | 2020-07-16 16:11 | Progress Note ---
Provider Note Provider Note: CARDIOLOGY PROGRESS NOTE by Dr. Samia Roper on 07/16/2020. Subjective: Patient has been extubated and transferred out of the ICU. The patient appears to be slightly confused but still able to recognize me as Dr. Roper. His voice is hoarse. He again states that he has no chest pain or shortness of breath. There is trouble getting his O2 saturations which showed a O2 sat of 77%. But on the ABGs O2 saturation 99.1%. There is no arrhythmias seen on the monitor. He is off the dopamine and his blood pressure is seems to be stable. PHYSICAL EXAMINATION: The patient appears to be chronically ill emaciated and malnourished. But appears to be in no acute distress. Selected Entries 07/16/20 16:36 Temperature 97.4 F Temperature Axillary Source Pulse Rate 85 Respiratory 16 Rate Blood Pressure 107/46 L Blood Pressure 66 Mean BP Location Left Arm BP Position Supine O2 Sat by Pulse 77 L Oximetry [O2 sats are 99.1% on ABGs] Oxygen Flow 4.00 Rate Oxygen Delivery Nasal Cannula Method HEAD: Is atraumatic normocephalic. EYES: Pupils equal reactive to light. ENT is negative. There is right facial droop present. NECK: Supple. There is no JVD. Carotids are equal there is no bruits. Lungs: Fairly clear. Heart S1-S2 is heard there is no S3 gallop. There is no S4 gallop. There is no rub. ABDOMEN: Soft nontender. There is no hepatosplenomegaly. Bowel sounds well heard. EXTREMITIES: Femorals are diminished. Leg pulses are diminished. There is no pedal edema there is wasting of the muscles of the lower extremities. 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 He has lower extremity weakness and wasting.. PSYCHIATRIC not examined due to patient's current mental status. Labs- All tests 24 hr 07/13/20 07/15/20 07/16/20 09:46 05:27 00:28 WBC RBC Hgb Hct MCV MCH MCHC RDW Plt Count Lymph % (Auto) [place] % (Auto) Eos % (Auto) Baso % (Auto) Absolute Neuts (auto) Absolute Lymphs (auto) Absolute Monos (auto) Absolute Eos (auto) Absolute Basos (auto) Seg Neutrophils % Carbonic Acid HCO3/H2CO3 Ratio ABG pH ABG pCO2 ABG pO2 ABG HCO3 ABG Total CO2 ABG O2 Saturation ABG Base Excess FiO2 Sodium Potassium Chloride Carbon Dioxide Anion Gap BUN Creatinine Est GFR ( Amer) Est GFR (MDRD) Non-Af Glucose POC Glucose 168 H 235 H Calcium Phosphorus Magnesium Procalcitonin 3.57 H Cortisol AM Sample 07/16/20 07/16/20 07/16/20 01:51 05:59 06:12 WBC 4.1 RBC 4.65 Hgb 13.4 L Hct 40.2 MCV 87 MCH 28.8 MCHC 33.3 RDW 16.7 H Plt Count 77 L Lymph % (Auto) 12.3 L [place] % (Auto) 7.4 Eos % (Auto) 0.1 Baso % (Auto) 0.3 Absolute Neuts (auto) 3.3 Absolute Lymphs (auto) 0.5 Absolute Monos (auto) 0.3 Absolute Eos (auto) 0.0 Absolute Basos (auto) 0.0 Seg Neutrophils % 79.9 H Carbonic Acid HCO3/H2CO3 Ratio ABG pH ABG pCO2 ABG pO2 ABG HCO3 ABG Total CO2 ABG O2 Saturation ABG Base Excess FiO2 Sodium Potassium Chloride Carbon Dioxide Anion Gap BUN Creatinine Est GFR ( Amer) Est GFR (MDRD) Non-Af Glucose POC Glucose 174 H 162 H Calcium Phosphorus Magnesium Procalcitonin Cortisol AM Sample 07/16/20 07/16/20 07/16/20 06:12 07:44 11:53 WBC RBC Hgb Hct MCV MCH MCHC RDW Plt Count Lymph % (Auto) [place] % (Auto) Eos % (Auto) Baso % (Auto) Absolute Neuts (auto) Absolute Lymphs (auto) Absolute Monos (auto) Absolute Eos (auto) Absolute Basos (auto) Seg Neutrophils % Carbonic Acid HCO3/H2CO3 Ratio ABG pH ABG pCO2 ABG pO2 ABG HCO3 ABG Total CO2 ABG O2 Saturation ABG Base Excess FiO2 Sodium 126.3 L Potassium 3.3 L Chloride 91 L Carbon Dioxide 22 Anion Gap 13 BUN 44 H Creatinine 3.58 H Est GFR ( Amer) 21 L Est GFR (MDRD) Non-Af 17 L Glucose 181 H POC Glucose 127 H Calcium 8.7 Phosphorus 4.2 Magnesium 1.7 Procalcitonin Cortisol AM Sample 105.00 H 07/16/20 07/16/20 16:48 18:32 WBC RBC Hgb Hct MCV MCH MCHC RDW Plt Count Lymph % (Auto) [place] % (Auto) Eos % (Auto) Baso % (Auto) Absolute Neuts (auto) Absolute Lymphs (auto) Absolute Monos (auto) Absolute Eos (auto) Absolute Basos (auto) Seg Neutrophils % Carbonic Acid 1.39 H HCO3/H2CO3 Ratio 16:1 ABG pH 7.30 L ABG pCO2 46.3 H ABG pO2 179.6 H ABG HCO3 22.3 ABG Total CO2 23.7 ABG O2 Saturation 99.1 H ABG Base Excess -4.2 FiO2 2L Sodium Potassium Chloride Carbon Dioxide Anion Gap BUN Creatinine Est GFR ( Amer) Est GFR (MDRD) Non-Af Glucose POC Glucose 153 H Calcium Phosphorus Magnesium Procalcitonin Cortisol AM Sample Chest X-Ray 07/09/20 13:50 IMPRESSION: Stable enlarged cardiac silhouette, mild bilateral pleural effusions and bibasilar opacities, left greater than right. Head CT 07/09/20 14:42 IMPRESSION: 1. No significant interval changes since the prior examination dated 07/03/2020. No acute intracranial abnormality. 2. Chronic small vessel ischemic changes changes and mild atrophy. 3. Additional stable findings as above. EVIDENCE OF ACUTE STROKE: NO Foot X-Ray 07/10/20 00:00 IMPRESSION: SEVERE DIFFUSE DEMINERALIZATION. CHRONIC CHANGES IN THE 5TH TOE. PROGRESSIVE DESTRUCTION OF THE 2ND TOE. MAY BE DUE TO OSTEOMYELITIS. Chest X-Ray 07/10/20 16:17 IMPRESSION: 1. Interval placement of endotracheal tube, tip is approximately 3.4 cm proximal to the joselito. Nasogastric tube with the tip overlying the body of the stomach. No evidence of pneumothorax. 2. Lies, unchanged finding since the prior study dated 07/09/2020. Head CT 07/10/20 16:23 IMPRESSION: 1. No significant interval changes since the prior examinations dated 07/09/2020, 07/03/2020 and 04/12/2020. No acute intracranial abnormality. 2. Chronic mild small vessel ischemic changes. Stable appearance to the low attenuated area in the region of the right hankins radiata. Further evaluation with MRI Brain maybe helpful to exclude acute changes. 3. New finding of a fluid collection within the posterior nasopharynx which lies anterior and adjacent to the adenoids and extends into the oropharynx. Interval placement of endotracheal and nasogastric tube since the previous study dated 07/09/2020. This finding may be on an inflammatory basis, possibly due to reflux. Correlation suggested. EVIDENCE OF ACUTE STROKE: NO Chest X-Ray 07/13/20 00:00 IMPRESSION: The enteric tube is malpositioned and its tip projects at the level of the joselito within the thoracic esophagus. Otherwise unchanged radiographic appearance of the chest. Chest X-Ray 07/15/20 00:00 IMPRESSION: Repositioning of the enteric tube with the tip now projecting over the left upper quadrant. Otherwise, stable examination. IMPRESSION/RECOMMENDATION: 1. Acute hypercapnic respiratory failure. Patient extubated. 2. Hypotension: The patient has chronic hypotension in spite of midodrine. Continue dopamine. Cannot exclude sepsis as a cause of the patient's hypotension. His blood pressure is improved on increasing dose of steroids intravenously. Will try to wean the patient off dopamine. Note 1 of his blood cultures positive for staph aureus. In spite of this no definite evidence of suspect sepsis. The patient's cortisol level is low. The patient is on replacement hydrocortisone intravenously. Would recommend increasing this to 50 mg IV push every 8 hours will give an extra dose of Florinef today. His potassium is 3.6. Will watch. 3. End-stage renal disease on hemodialysis. 4. Possible osteomyelitis of the right foot. Recommend antibiotics. 5. Ischemic cardiomyopathy with moderately reduced LV ejection fraction. 6. Coronary artery disease, patient's troponin is elevated but this may be secondary to supply demand mismatch rather than [place] the cause is being hypotension, respiratory failure and renal failure. 7. Diabetes mellitus: Continue high-level antidiabetic treatment. 8. History of prior CVA. 9. 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 10. Hypokalemia. We will replace the patient's potassium Medications reviewed. Extra dose of Florinef given. Medical regimen management plan discussed with attending provider on the case. Medical decision making is of high complexity. 40 minutes spent as patient with more than 50% time spent in direct patient care. Will follow.
[2020-07-16] MEDS ORDERED: FLUDROCORTISONE ACETATE 0.1 MG TABLET PO ONE (16:30)
[2020-07-16 17:00] LABS: ARTERIAL BLOOD BASE EXCESS -4.2 mmol/L; ARTERIAL BLOOD H2CO3 1.39 mmol/L (1.05-1.35); ARTERIAL BLOOD HCO3 22.3 mmol/L (20-24); ARTERIAL BLOOD O2 SATURATION 99.1 % (94-98); ARTERIAL BLOOD PCO2 46.3 mmHg (35-45); ARTERIAL BLOOD PO2 179.6 mmHg (80-100); ARTERIAL BLOOD TOTAL CO2 23.7 mmol/L (23-27)
[2020-07-16] MEDS ORDERED: POTASSIUM CHLORIDE 10 MEQ TABLET.ER PO ONE (17:00)
[2020-07-16] MEDS ORDERED: POTASSIUM CHLORIDE 20 MEQ PACKET PO ONE (17:00)
[2020-07-16 17:24] LABS: ARTERIAL BLOOD FIO2 2L
--- NOTE | 2020-07-16 23:00 | PDOC PROGRESS REPORT ---
Subjective Progress Note for:: 07/16/20 Subjective:: I am seeing the patient during dialysis this morning. He was extubated and is currently on room air. Post extubation he has been confused though until now. He seems to be mumbling or saying something which is incomprehensible with a very soft hoarse voice. He is otherwise hemodynamically stable during dialysis this morning and is tolerating procedure well. Reason For Visit: AMS,ESRD Physical Exam Vital Signs: Temp Pulse Resp BP Pulse Ox 97.6 F 89 13 102/53 L 100 07/16/20 08:06 07/16/20 07:00 07/16/20 06:00 07/16/20 05:17 07/16/20 06:00 Intake & Output 07/15/20 07/16/20 07/17/20 06:59 06:59 06:59 Intake Total 681 1097 50 Output Total 150 50 Balance 531 1047 50 Weight 57.4 kg 55.2 kg Vitals during dialysis: Blood pressure 134/69, heart rate of 89, blood flow rate of 350 mL/min and dialysate flow rate of 800 mL/min using a PermCath. Exam: General appearance: PRESENT: no acute distress, cooperative, well-developed, well-nourished Head exam: PRESENT: atraumatic, normocephalic Eye exam: PRESENT: conjunctiva pink, PERRLA. ABSENT: scleral icterus Neck exam: ABSENT: JVD Respiratory exam: PRESENT: Diminished breath sounds. ABSENT: crackles, rales, rhonchi, unlabored, wheezes Cardiovascular exam: PRESENT: Regular rate rhythm -+S1, +S2. ABSENT: diastolic murmur, systolic murmur GI/Abdominal exam: PRESENT: normal bowel sounds, soft. ABSENT: guarding, mass, tenderness Extremities exam: Grade 1 bilateral pitting edema mostly from the lower leg and feet. Neurological exam: PRESENT: alert, awake, confused. Skin exam: PRESENT: dry, warm, Cardiovascular exam: PRESENT: +S1, +S2 GI/Abdominal exam: PRESENT: normal bowel sounds, soft. ABSENT: organomegaly, tenderness Results Laboratory Results: 07/16/20 06:12 07/16/20 06:12 07/16/20 07/16/20 06:12 06:12 WBC 4.1 RBC 4.65 Hgb 13.4 L Hct 40.2 MCV 87 MCH 28.8 MCHC 33.3 RDW 16.7 H Plt Count 77 L Seg Neutrophils % 79.9 H Sodium 126.3 L Potassium 3.3 L Chloride 91 L Carbon Dioxide 22 Anion Gap 13 BUN 44 H Creatinine 3.58 H Est GFR ( Amer) 21 L Glucose 181 H Calcium 8.7 Phosphorus 4.2 Magnesium 1.7 07/13/20 13:50 Tracheal Aspirate Gram Stain - Final 07/13/20 13:50 Tracheal Aspirate Sputum Culture - Final Escherichia Coli Normal Indira Absent 07/09/20 11:47 Troponin I 0.235 NT-Pro-B Natriuret Pep [id number] H Impressions: Foot X-Ray 07/10/20 00:00 IMPRESSION: SEVERE DIFFUSE DEMINERALIZATION. CHRONIC CHANGES IN THE 5TH TOE. PROGRESSIVE DESTRUCTION OF THE 2ND TOE. MAY BE DUE TO OSTEOMYELITIS. Head CT 07/10/20 16:23 IMPRESSION: 1. No significant interval changes since the prior examinations dated 07/09/2020, 07/03/2020 and 04/12/2020. No acute intracranial abnormality. 2. Chronic mild small vessel ischemic changes. Stable appearance to the low attenuated area in the region of the right hankins radiata. Further evaluation with MRI Brain maybe helpful to exclude acute changes. 3. New finding of a fluid collection within the posterior nasopharynx which lies anterior and adjacent to the adenoids and extends into the oropharynx. Interval placement of endotracheal and nasogastric tube since the previous study dated 07/09/2020. This finding may be on an inflammatory basis, possibly due to reflux. Correlation suggested. EVIDENCE OF ACUTE STROKE: NO Chest X-Ray 07/15/20 00:00 IMPRESSION: Repositioning of the enteric tube with the tip now projecting over the left upper quadrant. Otherwise, stable examination. Assessment & Plan - Diagnosis (1) ESRD on hemodialysis Is this a current diagnosis for this admission?: Yes Plan: We will do dialysis today for 2.5 hours, using the patient's PermCath, with 3 potassium bath, blood flow rate of 350 mL per minute, dialysate flow rate of 800 mL per minute, ultrafiltration 2 L as tolerated, no heparin and no Retacrit. Patient is currently being monitored throughout dialysis treatment. (2) Confusion Is this a current diagnosis for this admission?: Yes Plan: He appears to be delirious postextubation. Monitor for now. (3) Hypotension Qualifiers: Hypotension type: idiopathic hypotension Qualified Code(s): I95.0 - Idiopathic hypotension Is this a current diagnosis for this admission?: Yes Plan: Blood pressure seems to be acceptable during dialysis this morning. 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
[2020-07-16] MEDS: LATANOPROST 0.005% OPH SOLN 2.5 ML OU SCH (23:22)
[2020-07-17] MEDS: INSULIN REG, HUMAN 100 UNIT/ML 3 ML VIAL (PYX) SUBCUT SCH ×5 (01:23→23:20)
[2020-07-17] MEDS: HEPARIN SOD (PORCINE) 5,000 UNIT/ML 1 ML VIAL SUBCUT SCH ×3 (06:48→21:42)
[2020-07-17 06:59] LABS: ABSOLUTE LYMPHOCYTES (AUTO) 0.3 10^3/uL (0.5-4.7); ABSOLUTE MONOCYTES (AUTO) 0.5 10^3/uL (0.1-1.4); ABSOLUTE NEUT (AUTO) 3.9 10^3/uL (1.7-8.2); BASOPHILS % (AUTO) 0.2 % (0-2); HEMATOCRIT 40.3 % (37.9-51.0); HEMOGLOBIN 13.1 g/dL (13.5-17.0); MEAN CORPUSCULAR HEMOGLOBIN 28.7 pg (27.0-33.4); MEAN CORPUSCULAR HGB CONC 32.6 g/dL (32.0-36.0); MEAN CORPUSCULAR VOLUME 88 fl (80-97); MONOCYTES % (AUTO) 10.7 % (3-13); RED BLOOD COUNT 4.57 10^6/uL (4.35-5.55); RED CELL DISTRIBUTION WIDTH 16.9 % (11.5-14.0); SEGMENTED NEUTROPHILS % (AUTO) 82.1 % (42-78); TOTAL CELLS COUNTED % (AUTO) 100 %; WHITE BLOOD COUNT 4.8 10^3/uL (4.0-10.5)
[2020-07-17 07:05] LABS: ANION GAP 13 (5-19); BLOOD UREA NITROGEN 29 mg/dL (7-20); CALCIUM 8.8 mg/dL (8.4-10.2); CARBON DIOXIDE 25 mmol/L (22-30); CHLORIDE 94 mmol/L (98-107); GLUCOSE 197 mg/dL (75-110); POTASSIUM 3.5 mmol/L (3.6-5.0)
[2020-07-17 07:13] LABS: PLATELET COUNT 77 10^3/uL (150-450)
[2020-07-17] MEDS: HYDROCORTISONE SOD SUCCINATE INJ/PF 100 MG/2 ML SDV IV SCH ×3 (08:15→21:41)
--- NOTE | 2020-07-17 09:05 | RADIOLOGY REPORT (SQ) ---
EXAM DESCRIPTION: CHEST SINGLE VIEW IMAGES COMPLETED DATE/TIME: 07/17/2020 8:55 am REASON FOR STUDY: sob COMPARISON: 07/15/2020. EXAM PARAMETERS: NUMBER OF VIEWS: One view. TECHNIQUE: Single frontal radiographic view of the chest acquired. RADIATION DOSE: NA LIMITATIONS: None. FINDINGS: LUNGS AND PLEURA: Left lower lobe airspace disease with pleural effusion. Small right ple ural effusion. No significant change. MEDIASTINUM AND HILAR STRUCTURES: No masses. Contour normal. HEART AND VASCULAR STRUCTURES: Heart normal in size. Normal vasculature. BONES: No acute findings. HARDWARE: Multi lumen catheter, sternotomy wires, surgical clips. OTHER: No other significant finding. IMPRESSION: NO SIGNIFICANT CHANGE IN APPEARANCE OF THE CHEST. TECHNICAL DOCUMENTATION: JOB ID: [id number] 2010 [employer]- All Rights Reserved Reading location - IP/workstation name: [email or web address]
[2020-07-17] MEDS: MIDODRINE HCL 5 MG TABLET NG SCH ×3 (09:59→17:29)
[2020-07-17] MEDS: DOCUSATE SODIUM 100 MG/10 ML UDC NG SCH (09:59)
[2020-07-17] MEDS: COLCHICINE 0.6 MG TABLET NG SCH ×2 (09:59→17:29)
[2020-07-17] MEDS: FAMOTIDINE INJ/PF 20 MG/2 ML SDV IV SCH (10:20)
[2020-07-17] MEDS: CEFEPIME 1 GM/D5W RTU 1 GM/50 ML RTUPB IV SCH ×2 (10:21→21:41)
[2020-07-17 10:55] LABS: ARTERIAL BLOOD BASE EXCESS -6.9 mmol/L; ARTERIAL BLOOD FIO2 100%; ARTERIAL BLOOD H2CO3 2.24 mmol/L (1.05-1.35); ARTERIAL BLOOD HCO3 23.8 mmol/L (20-24); ARTERIAL BLOOD PO2 92.4 mmHg (80-100); ARTERIAL BLOOD TOTAL CO2 26.1 mmol/L (23-27)
[2020-07-17 10:56] LABS: ARTERIAL BLOOD PCO2 74.4 mmHg (35-45); ARTERIAL BLOOD PH 7.12 (7.35-7.45)
[2020-07-17] MEDS ORDERED: DOPAMINE HCL/DEXTROSE 5%-WATER 800 MG/250 ML RTUINJ IV ONE (11:03)
[2020-07-17] MEDS ORDERED: RINGERS SOLUTION,LACTATED 1,000 ML IV PRN (11:57)
[2020-07-17] MEDS ORDERED: DEXTROSE 50%-WATER 25 GM/50 ML DISP.SYRIN IV PRN ×2 (11:57)
[2020-07-17] MEDS ORDERED: GLUCAGON,HUMAN RECOMB 1 MG INJ SUBCUT PRN (11:57)
[2020-07-17] MEDS ORDERED: DEXTROSE 40% GEL 15 GM TUBE PO PRN ×2 (11:57)
[2020-07-17] MEDS ORDERED: PHARMACY COMMUNICATION ORDER MC NR ×2 (12:00→14:15)
[2020-07-17] MEDS ORDERED: NOREPINEPHRINE BITARTRATE INJ/PF 4 MG/4 ML SDV IV ONE (12:06)
[2020-07-17] MEDS ORDERED: ETOMIDATE INJ/PF 20 MG/10 ML SDV IV ONE ×2 (12:07→15:45)
[2020-07-17] MEDS ORDERED: DEXTROSE 40% GEL 15 GM TUBE NG PRN ×2 (12:30)
--- NOTE | 2020-07-17 12:30 | CRITICAL CARE ADMISSION REPORT ---
HPI Date:: 07/17/20 Time:: 11:00 Reason for ICU Reason:: Obtunded and hypercarbic, need for intubation Admission Date/Time & PCP: Admission Date/Time: 07/09/20 16:54 Primary Care Provider: KEEGAN MONTENEGRO MD HPI: This patient is a rather chronically ill 64 yo man recently in the ICU and intubated. On the floor for about a day and became obtunded, low BP with an ABG showing no hypoxia but a PCO2 of 74 and pH 7.1. He had no IV access and a TLC was placed in the L subclavian vein. He also was intubated with a #8 ETT. CXR pending for both. He is significantly dehydrated. History obtained from:: Old records, nursing staff. 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 (4) Peripheral vascular disease Is this a current diagnosis for this admission?: Yes Plan: His toes are nearly black and dry. Plan Summary: Keep on vent to lower CO2. Wean when able. Chaitanya Garcia and Edinson to speak to . He is currently a full code Past Medical History Cardiac Medical History: Reports: Congestive Heart Failure, Coronary Artery Disease, Myocardial Infarction, Hyperlipidema Denies: Hypertension Pulmonary Medical History: Reports: Asthma, Bronchitis, Intubation, Pneumonia, Respiratory Failure, Sleep Apnea - On C Pap Denies: Chronic Obstructive Pulmonary Disease (COPD) Neurological Medical History: Denies: Seizures Endocrine Medical History: Reports: Diabetes Mellitus Type 1, Diabetes Mellitus Type 2 Renal/ Medical History: Reports: End Stage Renal Disease GI Medical History: Reports: Gastroesophageal Reflux Disease Musculoskeltal Medical History: Reports: Arthritis Psychiatric Medical History: Reports: Depression Hematology: Denies: Anemia Infectious Medical History: Reports: Clostridium Difficile, Methicillin- Resistant Staph Aureus, Vancomycin-Resistant Enterococci, Other Past Surgical History Past Surgical History: Reports: Cardiac Catheterization, Coronary Artery Bypass Graft - Quadruple bypass 2007, Vascular Surgery - left AV fistual, Other - History peritoneal dialysis catheter placement and removal Social/Family History - Social History Smoking Status: Unknown if Ever Smoked Frequency of Alcohol Use: None Hx Recreational Drug Use: No Drugs: None Hx Prescription Drug Abuse: No - Medication/Allergies Home Medications: Albuterol Sulfate [Albuterol Sulfate Hfa] 2 puff IH Q4HP PRN 04/12/20 Bimatoprost [Lumigan 0.01% Oph Soln 2.5 ml/Bottle] 1 drop OU QHS 04/12/20 Pantoprazole Sodium [Protonix [address] Tablet] 40 mg PO DAILY #30 tablet.dr 04/30/20 Midodrine HCl [Proamatine 5 mg Tablet] 5 mg PO TID #90 tablet 05/08/20 Allergies/Adverse Reactions: sulfamethoxazole [From Bactrim] Allergy (Verified 07/09/20 11:53) trimethoprim [From Bactrim] Allergy (Verified 07/09/20 11:53) Review of Systems ROS unobtainable: Due to endotracheal tube, Due to mental status Physical Exam Vital Signs: Temp Pulse Resp BP Pulse Ox 97.4 F 79 12 44/23 L 77 L 07/17/20 10:00 07/17/20 11:00 07/17/20 08:26 07/17/20 11:00 07/16/20 16:36 Intake & Output 07/16/20 07/17/20 07/18/20 06:59 06:59 06:59 Intake Total 1097 1150 100 Output Total 50 2125 Balance 1047 -975 100 Weight 55.2 kg 57.3 kg Weight/Height Weight 57.3 kg Height 5 ft 7 in General appearance: PRESENT: no acute distress, thin Head exam: PRESENT: atraumatic, normocephalic Eye exam: PRESENT: conjunctiva pink, EOMI, PERRLA. ABSENT: scleral icterus Ear exam: PRESENT: normal external ear exam Mouth exam: PRESENT: moist, tongue midline Respiratory exam: PRESENT: decreased breath sounds Cardiovascular exam: PRESENT: RRR. ABSENT: diastolic murmur, rubs, systolic murmur GI/Abdominal exam: PRESENT: normal bowel sounds, soft. ABSENT: distended, guarding, mass, organolmegaly, rebound, tenderness Rectal exam: PRESENT: deferred Gentrourinary exam: PRESENT: indwelling catheter Extremities exam: PRESENT: full ROM. ABSENT: calf tenderness, clubbing, pedal edema Musculoskeletal exam: PRESENT: normal inspection Neurological exam: PRESENT: altered, other - Obtunded Skin exam: PRESENT: dry Tubes/Lines: PRESENT: Endotracheal Tube, Central Line, Dialysis catheter, Nasogastic Tube Laboratory/Radiographs Laboratory Results: 07/17/20 05:35 07/17/20 05:35 07/16/20 07/17/20 07/17/20 16:48 05:35 05:35 WBC 4.8 RBC 4.57 Hgb 13.1 L Hct 40.3 MCV 88 MCH 28.7 MCHC 32.6 RDW 16.9 H Plt Count 77 L Seg Neutrophils % 82.1 H Carbonic Acid 1.39 H HCO3/H2CO3 Ratio 16:1 ABG pH 7.30 L ABG pCO2 46.3 H ABG pO2 179.6 H ABG HCO3 22.3 ABG O2 Saturation 99.1 H ABG Base Excess -4.2 FiO2 2L Sodium 132.1 L Potassium 3.5 L Chloride 94 L Carbon Dioxide 25 Anion Gap 13 BUN 29 H Creatinine 2.74 H Est GFR ( Amer) 28 L Glucose 197 H Calcium 8.8 07/17/20 10:25 WBC RBC Hgb Hct MCV MCH MCHC RDW Plt Count Seg Neutrophils % Carbonic Acid 2.24 H HCO3/H2CO3 Ratio 10:1 ABG pH 7.12 L* ABG pCO2 74.4 H* ABG pO2 92.4 ABG HCO3 23.8 ABG O2 Saturation 94.0 ABG Base Excess -6.9 FiO2 100% Sodium Potassium Chloride Carbon Dioxide Anion Gap BUN Creatinine Est GFR ( Amer) Glucose Calcium 07/11/20 15:31 Blood Blood Culture - Final NO GROWTH IN 5 DAYS 07/11/20 15:45 Blood Blood Culture - Final NO GROWTH IN 5 DAYS 07/13/20 13:50 Tracheal Aspirate Gram Stain - Final 07/13/20 13:50 Tracheal Aspirate Sputum Culture - Final Escherichia Coli Normal Indira Absent 07/09/20 11:47 Troponin I 0.235 NT-Pro-B Natriuret Pep [id number] H Impressions: Foot X-Ray 07/10/20 00:00 IMPRESSION: SEVERE DIFFUSE DEMINERALIZATION. CHRONIC CHANGES IN THE 5TH TOE. PROGRESSIVE DESTRUCTION OF THE 2ND TOE. MAY BE DUE TO OSTEOMYELITIS. Head CT 07/10/20 16:23 IMPRESSION: 1. No significant interval changes since the prior examinations dated 07/09/2020, 07/03/2020 and 04/12/2020. No acute intracranial abnormality. 2. Chronic mild small vessel ischemic changes. Stable appearance to the low attenuated area in the region of the right hankins radiata. Further evaluation with MRI Brain maybe helpful to exclude acute changes. 3. New finding of a fluid collection within the posterior nasopharynx which lies anterior and adjacent to the adenoids and extends into the oropharynx. Interval placement of endotracheal and nasogastric tube since the previous study dated 07/09/2020. This finding may be on an inflammatory basis, possibly due to reflux. Correlation suggested. EVIDENCE OF ACUTE STROKE: NO Chest X-Ray 07/17/20 00:00 IMPRESSION: NO SIGNIFICANT CHANGE IN APPEARANCE OF THE CHEST. All labs, radiographs, diagnostic studies and EKGs were personally reviewed: Yes In addition, reports of radiographic and diagnostic studies were read: Yes Critical Time Critical Time (minutes): 40 -: The care of a critically ill patient is dynamic. This note represents a static moment in the admission process. Orders and treatments may be given simultaneously and urgently, and time is not territory sales representative of the treatment process. This patient requires Critical Care secondary to life threatening organ or limb dysfunction. Without Critical Care services, the patient is at risk for increased mortality and morbidity.
[2020-07-17] MEDS ORDERED: DEXMEDETOMIDINE IN 0.9 % NACL 400 MCG/100 ML RTUPB IV ONE (12:36)
[2020-07-17] MEDS ORDERED: DEXMEDETOMIDINE IN 0.9 % NACL 400 MCG/100 ML RTUPB IV PRN (12:36)
--- NOTE | 2020-07-17 13:04 | Progress Note ---
Provider Note Provider Note: patient is in ICU for intubation I will continue consult after he has been discharged from the ICU
--- NOTE | 2020-07-17 13:26 | PDOC PROGRESS REPORT ---
Subjective Progress Note for:: 07/17/20 Subjective:: Patient was transferred yesterday from ICU was intubated when I saw the patient was not doing very well order the ABG which pH was 7.12 and patient's blood pressure is still very low Patient have a significant multiple comorbidity very extensive discussion with this morning with the patient's Nancy in my office regarding the patient's current condition and according to the all the medical records and the discussed with the other crop consultant pretty much suggest that patients may be a more hospice care and comfort care due to the multiple comorbidity and patient's will think about it Patient's again at this point require a rapid response and transferred to the ICU And have a 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 and also most likely patient have a osteomyelitis Patient have a significant peripheral Arterial disease At this point patient is transferred to the ICU for further care until the patient's make some other decisions Reason For Visit: ASPIRATION, HYPERCARBIC RESPIRATORY FAILURE Physical Exam Vital Signs: Temp Pulse Resp BP Pulse Ox 94.7 F L 78 15 59/48 L 100 07/17/20 12:00 07/17/20 12:00 07/17/20 12:00 07/17/20 12:00 07/17/20 12:00 Intake & Output 07/16/20 07/17/20 07/18/20 06:59 06:59 06:59 Intake Total 1097 1150 100 Output Total 50 2125 100 Balance 1047 -975 0 Weight 55.2 kg 57.3 kg 57.7 kg General appearance: PRESENT: severe distress Respiratory exam: PRESENT: decreased breath sounds Cardiovascular exam: PRESENT: +S1, +S2 GI/Abdominal exam: PRESENT: normal bowel sounds Neurological exam: PRESENT: altered Skin exam: PRESENT: dry Results Laboratory Results: 07/17/20 05:35 07/17/20 05:35 07/16/20 07/17/20 07/17/20 16:48 05:35 05:35 WBC 4.8 RBC 4.57 Hgb 13.1 L Hct 40.3 MCV 88 MCH 28.7 MCHC 32.6 RDW 16.9 H Plt Count 77 L Seg Neutrophils % 82.1 H Carbonic Acid 1.39 H HCO3/H2CO3 Ratio 16:1 ABG pH 7.30 L ABG pCO2 46.3 H ABG pO2 179.6 H ABG HCO3 22.3 ABG O2 Saturation 99.1 H ABG Base Excess -4.2 FiO2 2L Sodium 132.1 L Potassium 3.5 L Chloride 94 L Carbon Dioxide 25 Anion Gap 13 BUN 29 H Creatinine 2.74 H Est GFR ( Amer) 28 L Glucose 197 H Calcium 8.8 07/17/20 10:25 WBC RBC Hgb Hct MCV MCH MCHC RDW Plt Count Seg Neutrophils % Carbonic Acid 2.24 H HCO3/H2CO3 Ratio 10:1 ABG pH 7.12 L* ABG pCO2 74.4 H* ABG pO2 92.4 ABG HCO3 23.8 ABG O2 Saturation 94.0 ABG Base Excess -6.9 FiO2 100% Sodium Potassium Chloride Carbon Dioxide Anion Gap BUN Creatinine Est GFR ( Amer) Glucose Calcium 07/11/20 15:31 Blood Blood Culture - Final NO GROWTH IN 5 DAYS 07/11/20 15:45 Blood Blood Culture - Final NO GROWTH IN 5 DAYS 07/13/20 13:50 Tracheal Aspirate Gram Stain - Final 07/13/20 13:50 Tracheal Aspirate Sputum Culture - Final Escherichia Coli Normal Indira Absent 07/09/20 11:47 Troponin I 0.235 NT-Pro-B Natriuret Pep [id number] H Impressions: Foot X-Ray 07/10/20 00:00 IMPRESSION: SEVERE DIFFUSE DEMINERALIZATION. CHRONIC CHANGES IN THE 5TH TOE. PROGRESSIVE DESTRUCTION OF THE 2ND TOE. MAY BE DUE TO OSTEOMYELITIS. Head CT 07/10/20 16:23 IMPRESSION: 1. No significant interval changes since the prior examinations dated 07/09/2020, 07/03/2020 and 04/12/2020. No acute intracranial abnormality. 2. Chronic mild small vessel ischemic changes. Stable appearance to the low attenuated area in the region of the right hankins radiata. Further evaluation with MRI Brain maybe helpful to exclude acute changes. 3. New finding of a fluid collection within the posterior nasopharynx which lies anterior and adjacent to the adenoids and extends into the oropharynx. Interval placement of endotracheal and nasogastric tube since the previous study dated 07/09/2020. This finding may be on an inflammatory basis, possibly due to reflux. Correlation suggested. EVIDENCE OF ACUTE STROKE: NO Assessment & Plan - Diagnosis (1) Sepsis Qualifiers: Sepsis type: sepsis due to unspecified organism Is this a current diagnosis for this admission?: Yes (2) Hypotension Qualifiers: Hypotension type: idiopathic hypotension Qualified Code(s): I95.0 - Idiopathic hypotension Is this a current diagnosis for this admission?: Yes (3) Confusion Is this a current diagnosis for this admission?: Yes (4) ESRD on hemodialysis Is this a current diagnosis for this admission?: Yes (5) Elevated troponin I level Is this a current diagnosis for this admission?: Yes (6) Anemia in chronic kidney disease (CKD) Qualifiers: Chronic kidney disease stage: on chronic dialysis Is this a current diagnosis for this admission?: Yes (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) Is this a current diagnosis for this admission?: Yes (8) Cerebrovascular disease Is this a current diagnosis for this admission?: Yes (9) Chronic diastolic (congestive) heart failure Is this a current diagnosis for this admission?: Yes (10) Coronary artery disease Qualifiers: Coronary Disease-Associated Artery/Lesion type: poarch artery Associated angina: without angina Is this a current diagnosis for this admission?: Yes (11) Diabetes mellitus, type II Qualifiers: Diabetes mellitus nursing home insulin use: without nursing home use Is this a current diagnosis for this admission?: Yes (12) Gastroesophageal reflux disease Is this a current diagnosis for this admission?: Yes (13) History of Clostridium difficile colitis Is this a current diagnosis for this admission?: Yes (14) History of kidney transplant Is this a current diagnosis for this admission?: Yes (15) Peripheral arterial disease Is this a current diagnosis for this admission?: Yes (16) Acute respiratory failure with hypercapnia Is this a current diagnosis for this admission?: Yes - Time Time Spent with patient: 35 or more minutes Total Critical Time (Minutes): 30 Level of Care: ICU Medications reviewed and adjusted accordingly: Yes Anticipated discharge: Other Anticipated DC Timeframe: Other - Plan Summary Plan Summary: Transfer the patient in the ICU Discussed with the patient's regarding the patient's current conditions with the poor prognosisAlso discussed about the hospice and comfort care
--- NOTE | 2020-07-17 13:50 | RADIOLOGY REPORT (SQ) ---
EXAM DESCRIPTION: CHEST SINGLE VIEW IMAGES COMPLETED DATE/TIME: 07/17/2020 12:53 pm REASON FOR STUDY: ET Tube Placement COMPARISON: 07/17/2020 at 0841 hours. EXAM PARAMETERS: NUMBER OF VIEWS: One view. TECHNIQUE: Single frontal radiographic view of the chest acquired. RADIATION DOSE: NA LIMITATIONS: None. FINDINGS: LUNGS AND PLEURA: Left lower lobe airspace disease with left pleural effusion unchanged. MEDIASTINUM AND HILAR STRUCTURES: No masses. Contour normal. HEART AND VASCULAR STRUCTURES: Heart normal in size. Normal vasculature. BONES: No acute findings. HARDWARE: Tip of the endotracheal tube located 2 cm proximal to the joselito. Nasogastric tube, tip in the stomach. Stable multi lumen catheter. Sternotomy wires and coronary bypass markers. OTHER: No other significant finding. IMPRESSION: SATISFACTORY POSITION OF THE ENDOTRACHEAL TUBE AND NASOGASTRIC TUBE. NO SIGNIFICANT RACHEL NGE IN APPEARANCE OF THE CHEST. TECHNICAL DOCUMENTATION: JOB ID: [id number] 2010 [employer]- All Rights Reserved Reading location - IP/workstation name: LD
[2020-07-17] MEDS ORDERED: HEPARIN SOD (PORCINE) 5,000 UNIT/ML 1 ML VIAL SUBCUT SCH (14:00)
[2020-07-17] MEDS ORDERED: DEXTROSE 5%-WATER 250 ML with NOREPINEPHRINE BITARTRATE 4 MG IV PRN ×2 (14:03)
[2020-07-17] MEDS: ALBUTEROL SULFATE 0.083% NEB 2.5 MG/3 ML AMPUL NEB SCH ×2 (14:22→20:09)
[2020-07-17] MEDS ORDERED: NORMAL SALINE 1000 ML 1,000 ML IV ONE (14:30)
[2020-07-17] MEDS ORDERED: SODIUM BICARBONATE 8.4% INJ 50 MEQ/50 ML DISP.SYRIN ONE (15:16)
[2020-07-17] MEDS ORDERED: DEXMEDETOMIDINE IN NS 400 MCG/100 ML RTUPB IV PRN (15:41)
[2020-07-17] MEDS: HYDROMORPHONE HCL INJ/PF 2 MG/ML AMPULE IV PRN (17:32)
--- NOTE | 2020-07-17 18:34 | EKG REPORT ---
SEVERITY:- ABNORMAL ECG - SINUS RHYTHM SECOND DEGREE MOBITZ I AV BLOCK PROBABLE LEFT ATRIAL ABNORMALITY NONSPECIFIC INTRAVENTRICULAR CONDUCTION DELAY INFERIOR INFARCT, AGE INDETERMINATE ANTEROLATERAL INFARCT, AGE INDETERMINATE : Confirmed by: Kevon Madison MD 17-Jul-2020 18:34:09
--- NOTE | 2020-07-17 18:35 | Progress Note ---
Provider Note Provider Note: CARDIOLOGY PROGRESS NOTE by Dr. Samia Roper on 07/17/2020. SUBJECTIVE: The patient started having breathing problems with very shallow breathing. His pH was 7.1 and his PCO2 was 70. Hence the patient was intubated and transferred to the ICU. At present the patient is intubated and sedated. Initially was hypotensive and the patient was started on Levophed. But the patient blood pressure was very high and hence Levophed was stopped. Now with the patient off all pressors his blood pressure is stable. There is no ventricular arrhythmias seen on the monitor. PHYSICAL EXAMINATION: The patient appears to be chronically ill and cachectic. He is malnourished. Selected Entries 07/17/20 07/17/20 14:22 16:00 Temperature 96.2 F L Temperature Rectal Source Pulse Rate 53 L Respiratory 6 L Rate Blood Pressure 140/65 H [Upper Arm] Blood Pressure 90 Mean [Upper Arm ] Blood Pressure Supine Position [Upper Arm] O2 Sat by Pulse 100 Oximetry Oxygen Delivery Mechanical Method ( Ventilator includes room air) Fraction of 50 Inspired Oxygen (FIO2) HEAD: Is atraumatic normocephalic. EYES: Pupils equal reactive to light. ENT is negative. There is right facial droop present. NECK: Supple. There is no JVD. Carotids are equal there is no bruits. Lungs: Fairly clear. Heart S1-S2 is heard there is no S3 gallop. There is no S4 gallop. There is no rub. ABDOMEN: Soft nontender. There is no hepatosplenomegaly. Bowel sounds well heard. EXTREMITIES: Femorals are diminished. Leg pulses are diminished. There is no pedal edema there is wasting of the muscles of the lower extremities. TITLE CLOSER the patient is very lethargic arousable to noxious stimuli. Does seem to move all 4 extremities at times. PSYCHIATRIC not examined due to patient's current mental status. Labs- All tests 24 hr 07/17/20 07/17/20 07/17/20 00:10 05:35 05:35 WBC 4.8 RBC 4.57 Hgb 13.1 L Hct 40.3 MCV 88 MCH 28.7 MCHC 32.6 RDW 16.9 H Plt Count 77 L Lymph % (Auto) 7.0 L [place] % (Auto) 10.7 Eos % (Auto) 0.0 Baso % (Auto) 0.2 Absolute Neuts (auto) 3.9 Absolute Lymphs (auto) 0.3 L Absolute Monos (auto) 0.5 Absolute Eos (auto) 0.0 Absolute Basos (auto) 0.0 Seg Neutrophils % 82.1 H Carbonic Acid HCO3/H2CO3 Ratio ABG pH ABG pCO2 ABG pO2 ABG HCO3 ABG Total CO2 ABG O2 Saturation ABG Base Excess FiO2 Sodium 132.1 L Potassium 3.5 L Chloride 94 L Carbon Dioxide 25 Anion Gap 13 BUN 29 H Creatinine 2.74 H Est GFR ( Amer) 28 L Est GFR (MDRD) Non-Af 24 L Glucose 197 H POC Glucose 181 H Calcium 8.8 SARS-CoV-2 (PCR) 07/17/20 07/17/20 07/17/20 06:24 09:43 10:25 WBC RBC Hgb Hct MCV MCH MCHC RDW Plt Count Lymph % (Auto) [place] % (Auto) Eos % (Auto) Baso % (Auto) Absolute Neuts (auto) Absolute Lymphs (auto) Absolute Monos (auto) Absolute Eos (auto) Absolute Basos (auto) Seg Neutrophils % Carbonic Acid 2.24 H HCO3/H2CO3 Ratio 10:1 ABG pH 7.12 L* ABG pCO2 74.4 H* ABG pO2 92.4 ABG HCO3 23.8 ABG Total CO2 26.1 ABG O2 Saturation 94.0 ABG Base Excess -6.9 FiO2 100% Sodium Potassium Chloride Carbon Dioxide Anion Gap BUN Creatinine Est GFR ( Amer) Est GFR (MDRD) Non-Af Glucose POC Glucose 174 H Calcium SARS-CoV-2 (PCR) NEGATIVE 07/17/20 07/17/20 07/17/20 11:06 12:29 17:24 WBC RBC Hgb Hct MCV MCH MCHC RDW Plt Count Lymph % (Auto) [place] % (Auto) Eos % (Auto) Baso % (Auto) Absolute Neuts (auto) Absolute Lymphs (auto) Absolute Monos (auto) Absolute Eos (auto) Absolute Basos (auto) Seg Neutrophils % Carbonic Acid HCO3/H2CO3 Ratio ABG pH ABG pCO2 ABG pO2 ABG HCO3 ABG Total CO2 ABG O2 Saturation ABG Base Excess FiO2 Sodium Potassium Chloride Carbon Dioxide Anion Gap BUN Creatinine Est GFR ( Amer) Est GFR (MDRD) Non-Af Glucose POC Glucose 180 H 155 H 136 H Calcium SARS-CoV-2 (PCR) 07/17/20 23:18 WBC RBC Hgb Hct MCV MCH MCHC RDW Plt Count Lymph % (Auto) [place] % (Auto) Eos % (Auto) Baso % (Auto) Absolute Neuts (auto) Absolute Lymphs (auto) Absolute Monos (auto) Absolute Eos (auto) Absolute Basos (auto) Seg Neutrophils % Carbonic Acid HCO3/H2CO3 Ratio ABG pH ABG pCO2 ABG pO2 ABG HCO3 ABG Total CO2 ABG O2 Saturation ABG Base Excess FiO2 Sodium Potassium Chloride Carbon Dioxide Anion Gap BUN Creatinine Est GFR ( Amer) Est GFR (MDRD) Non-Af Glucose POC Glucose 108 Calcium SARS-CoV-2 (PCR) Chest X-Ray 07/09/20 13:50 IMPRESSION: Stable enlarged cardiac silhouette, mild bilateral pleural effusions and bibasilar opacities, left greater than right. Head CT 07/09/20 14:42 IMPRESSION: 1. No significant interval changes since the prior examination dated 07/03/2020. No acute intracranial abnormality. 2. Chronic small vessel ischemic changes changes and mild atrophy. 3. Additional stable findings as above. EVIDENCE OF ACUTE STROKE: NO Foot X-Ray 07/10/20 00:00 IMPRESSION: SEVERE DIFFUSE DEMINERALIZATION. CHRONIC CHANGES IN THE 5TH TOE. PROGRESSIVE DESTRUCTION OF THE 2ND TOE. MAY BE DUE TO OSTEOMYELITIS. Chest X-Ray 07/10/20 16:17 IMPRESSION: 1. Interval placement of endotracheal tube, tip is approximately 3.4 cm proximal to the joselito. Nasogastric tube with the tip overlying the body of the stomach. No evidence of pneumothorax. 2. Lies, unchanged finding since the prior study dated 07/09/2020. Head CT 07/10/20 16:23 IMPRESSION: 1. No significant interval changes since the prior examinations dated 07/09/2020, 07/03/2020 and 04/12/2020. No acute intracranial abnormality. 2. Chronic mild small vessel ischemic changes. Stable appearance to the low attenuated area in the region of the right hankins radiata. Further evaluation with MRI Brain maybe helpful to exclude acute changes. 3. New finding of a fluid collection within the posterior nasopharynx which lies anterior and adjacent to the adenoids and extends into the oropharynx. Interval placement of endotracheal and nasogastric tube since the previous study dated 07/09/2020. This finding may be on an inflammatory basis, possibly due to reflux. Correlation suggested. EVIDENCE OF ACUTE STROKE: NO Chest X-Ray 07/13/20 00:00 IMPRESSION: The enteric tube is malpositioned and its tip projects at the level of the joselito within the thoracic esophagus. Otherwise unchanged radiographic appearance of the chest. Chest X-Ray 07/15/20 00:00 IMPRESSION: Repositioning of the enteric tube with the tip now projecting over the left upper quadrant. Otherwise, stable examination. Chest X-Ray 07/17/20 00:00 IMPRESSION: NO SIGNIFICANT CHANGE IN APPEARANCE OF THE CHEST. Chest X-Ray 07/17/20 12:24 IMPRESSION: SATISFACTORY POSITION OF THE ENDOTRACHEAL TUBE AND NASOGASTRIC TUBE. NO SIGNIFICANT CHANGE IN APPEARANCE OF THE CHEST. IMPRESSION/RECOMMENDATION: 1. Acute hypercapnic respiratory failure. Patient intubated. 2. Hypotension: This is resolved. The patient's blood pressure is now stable without pressors. In view of the patient being on steroids would recommend continue maintenance dose of 2 steroids and also fludrocortisone. We will leave this to the energy conservation technician. 3. End-stage renal disease on hemodialysis. 4. Possible osteomyelitis of the right foot. Recommend antibiotics. 5. Ischemic cardiomyopathy with moderately reduced LV ejection fraction. 6. Coronary artery disease, patient's troponin is elevated but this may be secondary to supply demand mismatch rather than [place] the cause is being hypotension, respiratory failure and renal failure. 7. Diabetes mellitus: Continue high-level antidiabetic treatment. 8. History of prior CVA. 9. 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 Is there is also causing respiratory muscle weakness causing hypoventilation versus central sleep apnea. Will recommend a trial dose of modanafinil. The patient's overall prognosis is very guarded and poor. As discussed with Dr. Toby Tavares the studio director, and the attending physician Dr. Girard would recommend speaking with the patient's to make the patient hospice care. We will try to discuss this with the patient's . Medications reviewed. Extra dose of Florinef given. Medical regimen management plan discussed with attending provider on the case. Medical decision making is of high complexity. 40 minutes spent as patient with more than 50% time spent in direct patient care. Will follow.
[2020-07-17] MEDS: LATANOPROST 0.005% OPH SOLN 2.5 ML OU SCH ×2 (21:42→22:58)
[2020-07-17 23:56] LABS: ARTERIAL BLOOD FIO2 30%; ARTERIAL BLOOD H2CO3 1.19 mmol/L (1.05-1.35); ARTERIAL BLOOD HCO3 23.7 mmol/L (20-24); ARTERIAL BLOOD O2 SATURATION 94.3 % (94-98); ARTERIAL BLOOD PCO2 39.7 mmHg (35-45); ARTERIAL BLOOD PH 7.39 (7.35-7.45); ARTERIAL BLOOD TOTAL CO2 24.9 mmol/L (23-27)
[2020-07-18] MEDS: ALBUTEROL SULFATE 0.083% NEB 2.5 MG/3 ML AMPUL NEB SCH ×4 (01:38→19:57)
[2020-07-18] MEDS: HEPARIN SOD (PORCINE) 5,000 UNIT/ML 1 ML VIAL SUBCUT SCH ×3 (05:26→21:22)
[2020-07-18] MEDS: HYDROCORTISONE SOD SUCCINATE INJ/PF 100 MG/2 ML SDV IV SCH ×3 (05:26→21:22)
[2020-07-18] MEDS: INSULIN REG, HUMAN 100 UNIT/ML 3 ML VIAL (PYX) SUBCUT SCH ×3 (05:27→17:55)
[2020-07-18 05:57] LABS: ABSOLUTE LYMPHOCYTES (AUTO) 0.4 10^3/uL (0.5-4.7); ABSOLUTE MONOCYTES (AUTO) 0.4 10^3/uL (0.1-1.4); ABSOLUTE NEUT (AUTO) 5.1 10^3/uL (1.7-8.2); BASOPHILS % (AUTO) 0.2 % (0-2); HEMATOCRIT 35.9 % (37.9-51.0); HEMOGLOBIN 12.1 g/dL (13.5-17.0); LYMPHOCYTES % (AUTO) 6.9 % (13-45); MEAN CORPUSCULAR HEMOGLOBIN 28.9 pg (27.0-33.4); MEAN CORPUSCULAR HGB CONC 33.6 g/dL (32.0-36.0); MEAN CORPUSCULAR VOLUME 86 fl (80-97); MONOCYTES % (AUTO) 7.1 % (3-13); PLATELET COUNT 109 10^3/uL (150-450); RED BLOOD COUNT 4.17 10^6/uL (4.35-5.55); RED CELL DISTRIBUTION WIDTH 16.6 % (11.5-14.0); SEGMENTED NEUTROPHILS % (AUTO) 85.8 % (42-78); TOTAL CELLS COUNTED % (AUTO) 100 %
[2020-07-18 06:18] LABS: ALBUMIN 3.1 g/dL (3.5-5.0); ALKALINE PHOSPHATASE 93 U/L (38-126); ANION GAP 13 (5-19); ASPARTATE AMINO TRANSFERASE 15 U/L (17-59); BILIRUBIN,TOTAL 1.1 mg/dL (0.2-1.3); BLOOD UREA NITROGEN 35 mg/dL (7-20); CALCIUM 8.6 mg/dL (8.4-10.2); CARBON DIOXIDE 22 mmol/L (22-30); CHLORIDE 97 mmol/L (98-107); GLUCOSE 128 mg/dL (75-110); POTASSIUM 3.3 mmol/L (3.6-5.0); TOTAL PROTEIN 6.8 g/dL (6.3-8.2)
[2020-07-18] MEDS: HYDROMORPHONE HCL INJ/PF 2 MG/ML AMPULE IV PRN (09:37)
[2020-07-18] MEDS: COLCHICINE 0.6 MG TABLET NG SCH ×2 (09:40→18:27)
[2020-07-18] MEDS: DOCUSATE SODIUM 100 MG/10 ML UDC NG SCH (09:40)
[2020-07-18] MEDS: CEFEPIME 1 GM/D5W RTU 1 GM/50 ML RTUPB IV SCH ×2 (09:40→21:22)
[2020-07-18] MEDS: FAMOTIDINE INJ/PF 20 MG/2 ML SDV IV SCH (09:40)
[2020-07-18] MEDS: MIDODRINE HCL 5 MG TABLET NG SCH ×3 (09:41→18:28)
--- NOTE | 2020-07-18 12:03 | PDOC CRITICAL CARE PROG REPORT ---
General Date:: 07/18/20 ICU Day:: 2 Ventilator Day:: 2 Hospital Day:: 8 Resuscitation Status: Full Code Events in the past 12 to 24 Hours:: Intubated. More awake. Review of systems relevant to events:: Pulmonary, renal, neurological. Reason for ICU Addmission:: Obtunded and hypercarbic, need for intubation - Medications: Medications reviewed and adjusted accordingly: Yes Vasopressors:: None Sedation:: Precedex. Physical Exam Vital Signs: Temp Pulse Resp BP Pulse Ox 98 F 76 18 116/92 H 100 07/18/20 08:56 07/18/20 10:00 07/18/20 10:00 07/18/20 10:00 07/18/20 10:00 Intake & Output 07/17/20 07/18/20 07/19/20 06:59 06:59 06:59 Intake Total 1150 1171 Output Total 2125 100 0 Balance -975 1071 0 Weight 57.3 kg 60.8 kg Weight/Height Weight 60.8 kg Height 5 ft 7 in General appearance: PRESENT: no acute distress, thin Head exam: PRESENT: atraumatic, normocephalic Eye exam: PRESENT: conjunctiva pink, EOMI, PERRLA. ABSENT: scleral icterus Ear exam: PRESENT: normal external ear exam Mouth exam: PRESENT: moist, tongue midline Respiratory exam: PRESENT: clear to auscultation jolie, decreased breath sounds. ABSENT: rales, rhonchi, wheezes Cardiovascular exam: PRESENT: RRR. ABSENT: diastolic murmur, rubs, systolic murmur GI/Abdominal exam: PRESENT: normal bowel sounds, soft. ABSENT: distended, guarding, mass, organolmegaly, rebound, tenderness Rectal exam: PRESENT: deferred Gentrourinary exam: PRESENT: indwelling catheter Extremities exam: PRESENT: full ROM. ABSENT: calf tenderness, clubbing, pedal edema Neurological exam: PRESENT: altered, awake, other - More awake. Able to open eyes to voice and tactile stimultion. Not responding appropriately yet. Skin exam: PRESENT: other - Toes dark C/W vascular insufficiency. Tubes/Lines: PRESENT: Endotracheal Tube, Central Line, Nasogastic Tube Laboratory/Radiographs Laboratory Results: 07/18/20 05:37 07/18/20 05:37 07/17/20 07/18/20 07/18/20 23:32 05:37 05:37 WBC 6.0 RBC 4.17 L Hgb 12.1 L Hct 35.9 L MCV 86 MCH 28.9 MCHC 33.6 RDW 16.6 H Plt Count 109 L Seg Neutrophils % 85.8 H Carbonic Acid 1.19 HCO3/H2CO3 Ratio 19:1 ABG pH 7.39 ABG pCO2 39.7 ABG pO2 71.0 L ABG HCO3 23.7 ABG O2 Saturation 94.3 ABG Base Excess -1.0 FiO2 30% Sodium 131.9 L Potassium 3.3 L Chloride 97 L Carbon Dioxide 22 Anion Gap 13 BUN 35 H Creatinine 2.96 H Est GFR ( Amer) 26 L Glucose 128 H Calcium 8.6 Total Bilirubin 1.1 AST 15 L Alkaline Phosphatase 93 Total Protein 6.8 Albumin 3.1 L 07/09/20 11:47 Troponin I 0.235 NT-Pro-B Natriuret Pep [id number] H Impressions: Foot X-Ray 07/10/20 00:00 IMPRESSION: SEVERE DIFFUSE DEMINERALIZATION. CHRONIC CHANGES IN THE 5TH TOE. PROGRESSIVE DESTRUCTION OF THE 2ND TOE. MAY BE DUE TO OSTEOMYELITIS. Head CT 07/10/20 16:23 IMPRESSION: 1. No significant interval changes since the prior examinations dated 07/09/2020, 07/03/2020 and 04/12/2020. No acute intracranial abnormality. 2. Chronic mild small vessel ischemic changes. Stable appearance to the low attenuated area in the region of the right hankins radiata. Further evaluation with MRI Brain maybe helpful to exclude acute changes. 3. New finding of a fluid collection within the posterior nasopharynx which lies anterior and adjacent to the adenoids and extends into the oropharynx. Interval placement of endotracheal and nasogastric tube since the previous study dated 07/09/2020. This finding may be on an inflammatory basis, possibly due to reflux. Correlation suggested. EVIDENCE OF ACUTE STROKE: NO Chest X-Ray 07/17/20 12:24 IMPRESSION: SATISFACTORY POSITION OF THE ENDOTRACHEAL TUBE AND NASOGASTRIC TUBE. NO SIGNIFICANT CHANGE IN APPEARANCE OF THE CHEST. All labs, radiographs, diagnostic studies and EKGs were personally reviewed: Yes In addition, reports of radiographic and diagnostic studies were read: Yes Assessment and Plan - Diagnosis (1) Acute respiratory failure Qualifiers: Respiratory failure complication: hypercapnia Qualified Code(s): J96.02 - Acute respiratory failure with hypercapnia Is this a current diagnosis for this admission?: Yes Plan: This has improved and we have started weaning. (2) ESRD on hemodialysis Is this a current diagnosis for this admission?: Yes Plan: He is not hyperkalemic or acidotic. Not overloaded, he is somewhat dehydrated. 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 (4) Peripheral vascular disease Is this a current diagnosis for this admission?: Yes Plan: Chronic. Plan Summary: Several providers have tried to get the to consider comfort care. Not receptive as yet. Continue to wean vent Critical Time Critical Time (minutes): 35 Level of Care: ICU Anticipated discharge: SNF Anticipated DC Timeframe: Other -: 1. The care of a critical patient is a dynamic process. This note is a account retention representative synopsis but static in nature. The timeframe for treatments given in order is not necessarily the actual time these treatments may have been done. 2. This patient requires critical care secondary to ongoing requirements for therapy not offered or safe outside the critical care environment. Transfer to a lower level of care will result in altered life or limb morbidity and mortality. 3. Multidisciplinary rounds completed. 4. ABCDE bundle addressed.
[2020-07-18] MEDS: LATANOPROST 0.005% OPH SOLN 2.5 ML OU SCH (21:22)
--- NOTE | 2020-07-18 22:00 | PDOC PROGRESS REPORT ---
Subjective Progress Note for:: 07/18/20 Subjective:: Events yesterday reviewed. Patient was transferred to the floor late Thursday and yesterday the patient turns for the worse in the floor with altered mental status, and hypotension so rapid response was called. ABG showed respiratory acidosis so the patient was transferred back here in the ICU and was intubated. He was on Levophed for a short period of time but currently his blood pressure is within acceptable limits without any pressors. He still intubated and no sedation. Yesterday Dr. Girard and talked to the patient's Nancy to discuss the patient's poor prognosis and poor condition recommending comfort care and hospice. I talked to patient's again today reiterating those recommendations and she indicated that she is not ready to decide yet. Reason For Visit: ASPIRATION, HYPERCARBIC RESPIRATORY FAILURE Physical Exam Vital Signs: Temp Pulse Resp BP Pulse Ox 98 F 68 18 154/103 H 100 07/18/20 08:56 07/18/20 08:13 07/18/20 08:13 07/18/20 08:00 07/18/20 08:13 Intake & Output 07/17/20 07/18/20 07/19/20 06:59 06:59 06:59 Intake Total 1150 1171 Output Total 2125 100 0 Balance -975 1071 0 Weight 57.3 kg 60.8 kg Exam: General appearance: PRESENT: Intubated not on sedation, opens his eyes occasionally Head exam: PRESENT: atraumatic, normocephalic Eye exam: PRESENT: conjunctiva pale PERRLA. ABSENT: scleral icterus Neck exam: ABSENT: JVD Respiratory exam: PRESENT: Coarse breath sounds. ABSENT: crackles, rales, rhonchi, unlabored, wheezes Cardiovascular exam: PRESENT: Regular rate rhythm -+S1, +S2. ABSENT: diastolic murmur, systolic murmur GI/Abdominal exam: PRESENT: normal bowel sounds, soft. ABSENT: guarding, mass, tenderness Extremities exam: Grade 2 bilateral lower extremity pitting edema Neurological exam: PRESENT: Opens his eyes but not much response. Skin exam: PRESENT: dry, warm, Cardiovascular exam: PRESENT: +S1, +S2 GI/Abdominal exam: PRESENT: normal bowel sounds, soft. ABSENT: organomegaly, t enderness Results Laboratory Results: 07/18/20 05:37 07/18/20 05:37 07/17/20 07/17/20 07/18/20 10:25 23:32 05:37 WBC 6.0 RBC 4.17 L Hgb 12.1 L Hct 35.9 L MCV 86 MCH 28.9 MCHC 33.6 RDW 16.6 H Plt Count 109 L Seg Neutrophils % 85.8 H Carbonic Acid 2.24 H 1.19 HCO3/H2CO3 Ratio 10:1 19:1 ABG pH 7.12 L* 7.39 ABG pCO2 74.4 H* 39.7 ABG pO2 92.4 71.0 L ABG HCO3 23.8 23.7 ABG O2 Saturation 94.0 94.3 ABG Base Excess -6.9 -1.0 FiO2 100% 30% Sodium Potassium Chloride Carbon Dioxide Anion Gap BUN Creatinine Est GFR ( Amer) Glucose Calcium Total Bilirubin AST Alkaline Phosphatase Total Protein Albumin 07/18/20 05:37 WBC RBC Hgb Hct MCV MCH MCHC RDW Plt Count Seg Neutrophils % Carbonic Acid HCO3/H2CO3 Ratio ABG pH ABG pCO2 ABG pO2 ABG HCO3 ABG O2 Saturation ABG Base Excess FiO2 Sodium 131.9 L Potassium 3.3 L Chloride 97 L Carbon Dioxide 22 Anion Gap 13 BUN 35 H Creatinine 2.96 H Est GFR ( Amer) 26 L Glucose 128 H Calcium 8.6 Total Bilirubin 1.1 AST 15 L Alkaline Phosphatase 93 Total Protein 6.8 Albumin 3.1 L 07/09/20 11:47 Troponin I 0.235 NT-Pro-B Natriuret Pep [id number] H Impressions: Foot X-Ray 07/10/20 00:00 IMPRESSION: SEVERE DIFFUSE DEMINERALIZATION. CHRONIC CHANGES IN THE 5TH TOE. PROGRESSIVE DESTRUCTION OF THE 2ND TOE. MAY BE DUE TO OSTEOMYELITIS. Head CT 07/10/20 16:23 IMPRESSION: 1. No significant interval changes since the prior examinations dated 07/09/2020, 07/03/2020 and 04/12/2020. No acute intracranial abnormality. 2. Chronic mild small vessel ischemic changes. Stable appearance to the low attenuated area in the region of the right hankins radiata. Further evaluation with MRI Brain maybe helpful to exclude acute changes. 3. New finding of a fluid collection within the posterior nasopharynx which lies anterior and adjacent to the adenoids and extends into the oropharynx. Interval placement of endotracheal and nasogastric tube since the previous study dated 07/09/2020. This finding may be on an inflammatory basis, possibly due to reflux. Correlation suggested. EVIDENCE OF ACUTE STROKE: NO Chest X-Ray 07/17/20 12:24 IMPRESSION: SATISFACTORY POSITION OF THE ENDOTRACHEAL TUBE AND NASOGASTRIC TUBE. NO SIGNIFICANT CHANGE IN APPEARANCE OF THE CHEST. Assessment & Plan - Diagnosis (1) ESRD on hemodialysis Is this a current diagnosis for this admission?: Yes Plan: Patient appears to be volume depleted. His electrolytes and kidney function are within acceptable limits at this time. In fact he has mild hypokalemia. I am holding hemodialysis today to give him time to recuperate. I will reevaluate and monitor his electrolytes and volume status in the next 24 to 48 hours. He will most likely need dialysis at least on Thursday. Discussed with Dr. He. Also informed , Nancy about the plan. (2) Acute respiratory failure with hypercapnia Is this a current diagnosis for this admission?: Yes Plan: Exact etiology uncertain. 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 Defer to butt maker for management. (3) Hypokalemia Is this a current diagnosis for this admission?: Yes Plan: Replace as necessary. 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 (9) Diabetes mellitus, type II Qualifiers: Diabetes mellitus prison insulin use: without prison use Is this a current diagnosis for this admission?: Yes - Time Time with patient: 15-25 minutes
--- NOTE | 2020-07-18 22:30 | Progress Note ---
Provider Note Provider Note: CARDIOLOGY PROGRESS NOTE by Dr. Samia Roper on 07/18/2020. SUBJECTIVE: The patient is status quo. He is intubated and sedated. The patient has Mobitz type I Wenckebach second-degree AV block. The patient's blood pressure is stable off all pressors. There is no ventricular arrhythmias seen on the monitor. PHYSICAL EXAMINATION: The patient appears to be chronically ill and emaciated and malnourished. Selected Entries 07/18/20 12:00 Temperature 97.7 F Temperature Axillary Source Pulse Rate 70 Respiratory 13 Rate Blood Pressure 100/69 [Upper Arm] Blood Pressure 79 Mean [Upper Arm ] Blood Pressure Supine Position [Upper Arm] O2 Sat by Pulse 100 Oximetry Oxygen Delivery Mechanical Method ( Ventilator includes room air) Fraction of 30 Inspired Oxygen (FIO2) HEAD: Is atraumatic normocephalic. EYES: Pupils equal reactive to light. ENT is negative. There is right facial droop present. NECK: Supple. There is no JVD. Carotids are equal there is no bruits. Lungs: Fairly clear. Heart S1-S2 is heard there is no S3 gallop. There is no S4 gallop. There is no rub. ABDOMEN: Soft nontender. There is no hepatosplenomegaly. Bowel sounds well heard. EXTREMITIES: Femorals are diminished. Leg pulses are diminished. There is no pedal edema there is wasting of the muscles of the lower extremities. SIGN MANUFACTURER and psychiatric exam not performed due to the patient's status. Chest X-Ray 07/09/20 13:50 IMPRESSION: Stable enlarged cardiac silhouette, mild bilateral pleural effusions and bibasilar opacities, left greater than right. Head CT 07/09/20 14:42 IMPRESSION: 1. No significant interval changes since the prior examination dated 07/03/2020. No acute intracranial abnormality. 2. Chronic small vessel ischemic changes changes and mild atrophy. 3. Additional stable findings as above. EVIDENCE OF ACUTE STROKE: NO Foot X-Ray 07/10/20 00:00 IMPRESSION: SEVERE DIFFUSE DEMINERALIZATION. CHRONIC CHANGES IN THE 5TH TOE. PROGRESSIVE DESTRUCTION OF THE 2ND TOE. MAY BE DUE TO OSTEOMYELITIS. Chest X-Ray 07/10/20 16:17 IMPRESSION: 1. Interval placement of endotracheal tube, tip is approximately 3.4 cm proximal to the joselito. Nasogastric tube with the tip overlying the body of the stomach. No evidence of pneumothorax. 2. Lies, unchanged finding since the prior study dated 07/09/2020. Head CT 07/10/20 16:23 IMPRESSION: 1. No significant interval changes since the prior examinations dated 07/09/2020, 07/03/2020 and 04/12/2020. No acute intracranial abnormality. 2. Chronic mild small vessel ischemic changes. Stable appearance to the low attenuated area in the region of the right hankins radiata. Further evaluation with MRI Brain maybe helpful to exclude acute changes. 3. New finding of a fluid collection within the posterior nasopharynx which lies anterior and adjacent to the adenoids and extends into the oropharynx. Interval placement of endotracheal and nasogastric tube since the previous study dated 07/09/2020. This finding may be on an inflammatory basis, possibly due to reflux. Correlation suggested. EVIDENCE OF ACUTE STROKE: NO Chest X-Ray 07/13/20 00:00 IMPRESSION: The enteric tube is malpositioned and its tip projects at the level of the joselito within the thoracic esophagus. Otherwise unchanged radiographic appearance of the chest. Chest X-Ray 07/15/20 00:00 IMPRESSION: Repositioning of the enteric tube with the tip now projecting over the left upper quadrant. Otherwise, stable examination. Chest X-Ray 07/17/20 00:00 IMPRESSION: NO SIGNIFICANT CHANGE IN APPEARANCE OF THE CHEST. Chest X-Ray 07/17/20 12:24 IMPRESSION: SATISFACTORY POSITION OF THE ENDOTRACHEAL TUBE AND NASOGASTRIC TUBE. NO SIGNIFICANT CHANGE IN APPEARANCE OF THE CHEST. Labs- All tests 24 hr 07/17/20 07/17/20 07/18/20 23:18 23:32 05:25 WBC RBC Hgb Hct MCV MCH MCHC RDW Plt Count Lymph % (Auto) [place] % (Auto) Eos % (Auto) Baso % (Auto) Absolute Neuts (auto) Absolute Lymphs (auto) Absolute Monos (auto) Absolute Eos (auto) Absolute Basos (auto) Seg Neutrophils % Carbonic Acid 1.19 HCO3/H2CO3 Ratio 19:1 ABG pH 7.39 ABG pCO2 39.7 ABG pO2 71.0 L ABG HCO3 23.7 ABG Total CO2 24.9 ABG O2 Saturation 94.3 ABG Base Excess -1.0 FiO2 30% Sodium Potassium Chloride Carbon Dioxide Anion Gap BUN Creatinine Est GFR ( Amer) Est GFR (MDRD) Non-Af Glucose POC Glucose 108 131 H Calcium Total Bilirubin Direct Bilirubin Neonat Total Bilirubin Neonat Direct Bilirubin Neonat Indirect Bili AST ALT Alkaline Phosphatase Total Protein Albumin 07/18/20 07/18/20 07/18/20 05:37 05:37 11:50 WBC 6.0 RBC 4.17 L Hgb 12.1 L Hct 35.9 L MCV 86 MCH 28.9 MCHC 33.6 RDW 16.6 H Plt Count 109 L Lymph % (Auto) 6.9 L [place] % (Auto) 7.1 Eos % (Auto) 0.0 Baso % (Auto) 0.2 Absolute Neuts (auto) 5.1 Absolute Lymphs (auto) 0.4 L Absolute Monos (auto) 0.4 Absolute Eos (auto) 0.0 Absolute Basos (auto) 0.0 Seg Neutrophils % 85.8 H Carbonic Acid HCO3/H2CO3 Ratio ABG pH ABG pCO2 ABG pO2 ABG HCO3 ABG Total CO2 ABG O2 Saturation ABG Base Excess FiO2 Sodium 131.9 L Potassium 3.3 L Chloride 97 L Carbon Dioxide 22 Anion Gap 13 BUN 35 H Creatinine 2.96 H Est GFR ( Amer) 26 L Est GFR (MDRD) Non-Af 22 L Glucose 128 H POC Glucose 131 H Calcium 8.6 Total Bilirubin 1.1 Direct Bilirubin 1.0 H Neonat Total Bilirubin Not Reportable Neonat Direct Bilirubin Not Reportable Neonat Indirect Bili Not Reportable AST 15 L ALT 8 Alkaline Phosphatase 93 Total Protein 6.8 Albumin 3.1 L 07/18/20 17:52 WBC RBC Hgb Hct MCV MCH MCHC RDW Plt Count Lymph % (Auto) [place] % (Auto) Eos % (Auto) Baso % (Auto) Absolute Neuts (auto) Absolute Lymphs (auto) Absolute Monos (auto) Absolute Eos (auto) Absolute Basos (auto) Seg Neutrophils % Carbonic Acid HCO3/H2CO3 Ratio ABG pH ABG pCO2 ABG pO2 ABG HCO3 ABG Total CO2 ABG O2 Saturation ABG Base Excess FiO2 Sodium Potassium Chloride Carbon Dioxide Anion Gap BUN Creatinine Est GFR ( Amer) Est GFR (MDRD) Non-Af Glucose POC Glucose 142 H Calcium Total Bilirubin Direct Bilirubin Neonat Total Bilirubin Neonat Direct Bilirubin Neonat Indirect Bili AST ALT Alkaline Phosphatase Total Protein Albumin IMPRESSION/RECOMMENDATION: 1. Acute hypercapnic respiratory failure. Patient intubated. 2. Hypotension: This is resolved. The patient's blood pressure is now stable without pressors. In view of the patient being on steroids would recommend continue maintenance dose of 2 steroids and also fludrocortisone. We will leave this to the electrical machine builder. 3. End-stage renal disease on hemodialysis. 4. Possible osteomyelitis of the right foot. Recommend antibiotics. 5. Ischemic cardiomyopathy with moderately reduced LV ejection fraction. 6. Coronary artery disease, patient's troponin is elevated but this may be secondary to supply demand mismatch rather than [place] the cause is being hypotension, respiratory failure and renal failure. 7. Diabetes mellitus: Continue high-level antidiabetic treatment. 8. History of prior CVA. 9. 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 Is there is also causing respiratory muscle weakness causing hypoventilation versus central sleep apnea. Will recommend a trial dose of modanafinil. The patient's overall prognosis is very guarded and poor. As discussed with Dr. Toby Tavares the livestock agent, and the attending physician Dr. Girard would recommend speaking with the patient's to make the patient hospice care. We will try to discuss this with the patient's . Medications reviewed. Medical regimen management plan discussed with attending provider on the case. Medical decision making is of moderate complexity. 40 minutes spent as patient with more than 50% time spent in direct patient care. Will follow.
[2020-07-19] MEDS: INSULIN REG, HUMAN 100 UNIT/ML 3 ML VIAL (PYX) SUBCUT SCH ×4 (00:08→17:58)
[2020-07-19] MEDS: ALBUTEROL SULFATE 0.083% NEB 2.5 MG/3 ML AMPUL NEB SCH ×4 (02:15→20:28)
[2020-07-19 04:55] LABS: ANION GAP 14 (5-19); BLOOD UREA NITROGEN 45 mg/dL (7-20); CALCIUM 8.8 mg/dL (8.4-10.2); CARBON DIOXIDE 22 mmol/L (22-30); CHLORIDE 95 mmol/L (98-107); GLUCOSE 228 mg/dL (75-110); PHOSPHORUS 3.8 mg/dL (2.5-4.5)
[2020-07-19 05:02] LABS: POTASSIUM 2.8 mmol/L (3.6-5.0)
[2020-07-19] MEDS: POTASSI CL 20 MEQ/50 ML RIDER 20 MEQ/50 ML RTUPB IV SCH ×2 (05:37→07:28)
[2020-07-19] MEDS: HYDROCORTISONE SOD SUCCINATE INJ/PF 100 MG/2 ML SDV IV SCH ×3 (05:37→21:24)
[2020-07-19] MEDS: HEPARIN SOD (PORCINE) 5,000 UNIT/ML 1 ML VIAL SUBCUT SCH ×3 (05:37→21:24)
[2020-07-19] MEDS: POTASSIUM CHLORIDE 20 MEQ PACKET NG SCH ×3 (09:39→17:58)
[2020-07-19] MEDS: DOCUSATE SODIUM 100 MG/10 ML UDC NG SCH (09:39)
[2020-07-19] MEDS: MIDODRINE HCL 5 MG TABLET NG SCH ×3 (09:39→17:54)
[2020-07-19] MEDS: FAMOTIDINE INJ/PF 20 MG/2 ML SDV IV SCH (09:40)
[2020-07-19] MEDS: CEFEPIME 1 GM/D5W RTU 1 GM/50 ML RTUPB IV SCH ×2 (09:40→21:24)
[2020-07-19] MEDS: COLCHICINE 0.6 MG TABLET NG SCH ×2 (09:41→17:58)
[2020-07-19] MEDS: HYDROMORPHONE HCL INJ/PF 2 MG/ML AMPULE IV PRN (09:43)
--- NOTE | 2020-07-19 11:12 | PDOC CRITICAL CARE PROG REPORT ---
General Date:: 07/19/20 ICU Day:: 2 Ventilator Day:: 2 Hospital Day:: 9 Resuscitation Status: Full Code Events in the past 12 to 24 Hours:: Tried weaning to PSV. Pt failed quickly. Review of systems relevant to events:: Pulmonary, renal, neurological. Reason for ICU Addmission:: Obtunded and hypercarbic, need for intubation - Medications: Medications reviewed and adjusted accordingly: Yes Vasopressors:: None Sedation:: None Physical Exam Vital Signs: Temp Pulse Resp BP Pulse Ox 97.4 F 85 23 H 105/65 100 07/19/20 08:55 07/19/20 10:00 07/19/20 10:24 07/19/20 10:24 07/19/20 10:24 Intake & Output 07/18/20 07/19/20 07/20/20 06:59 06:59 06:59 Intake Total 1171 400 46 Output Total 100 680 0 Balance 1071 -280 46 Weight 60.8 kg 61 kg Weight/Height Weight 61 kg Height 5 ft 7 in General appearance: PRESENT: no acute distress, thin Head exam: PRESENT: atraumatic, normocephalic Eye exam: PRESENT: conjunctiva pink, EOMI, PERRLA. ABSENT: scleral icterus Ear exam: PRESENT: normal external ear exam Mouth exam: PRESENT: moist, tongue midline Respiratory exam: PRESENT: decreased breath sounds, rhonchi, symmetrical, unlabored Cardiovascular exam: PRESENT: RRR. ABSENT: diastolic murmur, rubs, systolic murmur GI/Abdominal exam: PRESENT: normal bowel sounds, soft. ABSENT: distended, guarding, mass, organolmegaly, rebound, tenderness Rectal exam: PRESENT: deferred Extremities exam: PRESENT: full ROM, other - Toes of both feet dark but not gangrenous.. ABSENT: calf tenderness, clubbing, pedal edema Musculoskeletal exam: PRESENT: normal inspection Neurological exam: PRESENT: altered, awake, CN II-XII grossly intact, other - Does not respond appropriately even off sedation. Skin exam: PRESENT: dry, intact, warm. ABSENT: cyanosis, rash Tubes/Lines: PRESENT: Endotracheal Tube, Central Line, Nasogastic Tube Laboratory/Radiographs Laboratory Results: 07/18/20 05:37 07/19/20 04:05 07/19/20 07/19/20 04:05 04:05 Sodium 131.2 L Potassium 2.8 L* Chloride 95 L Carbon Dioxide 22 Anion Gap 14 BUN 45 H Creatinine 3.46 H Est GFR ( Amer) 22 L Glucose 228 H Calcium 8.8 Phosphorus 3.8 Magnesium 1.8 07/09/20 11:47 Troponin I 0.235 NT-Pro-B Natriuret Pep [id number] H Impressions: Foot X-Ray 07/10/20 00:00 IMPRESSION: SEVERE DIFFUSE DEMINERALIZATION. CHRONIC CHANGES IN THE 5TH TOE. PROGRESSIVE DESTRUCTION OF THE 2ND TOE. MAY BE DUE TO OSTEOMYELITIS. Head CT 07/10/20 16:23 IMPRESSION: 1. No significant interval changes since the prior examinations dated 07/09/2020, 07/03/2020 and 04/12/2020. No acute intracranial abnormality. 2. Chronic mild small vessel ischemic changes. Stable appearance to the low attenuated area in the region of the right hankins radiata. Further evaluation with MRI Brain maybe helpful to exclude acute changes. 3. New finding of a fluid collection within the posterior nasopharynx which lies anterior and adjacent to the adenoids and extends into the oropharynx. I nterval placement of endotracheal and nasogastric tube since the previous study dated 07/09/2020. This finding may be on an inflammatory basis, possibly due to reflux. Correlation suggested. EVIDENCE OF ACUTE STROKE: NO Chest X-Ray 07/17/20 12:24 IMPRESSION: SATISFACTORY POSITION OF THE ENDOTRACHEAL TUBE AND NASOGASTRIC TUBE. NO SIGNIFICANT CHANGE IN APPEARANCE OF THE CHEST. All labs, radiographs, diagnostic studies and EKGs were personally reviewed: Yes In addition, reports of radiographic and diagnostic studies were read: Yes Assessment and Plan - Diagnosis (1) Acute respiratory failure Qualifiers: Respiratory failure complication: hypercapnia Qualified Code(s): J96.02 - Acute respiratory failure with hypercapnia Is this a current diagnosis for this admission?: Yes Plan: Secondary to hypercarbia. It is becoming apparent that weakness is a factor. He was tried on PSV and lasted only several minutes before getting tired ad only drawing small breaths, < 100cc. Will try again taoday but I expect something similar will happen. (2) ESRD on hemodialysis Is this a current diagnosis for this admission?: Yes Plan: No HD today. 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 (4) Peripheral vascular disease Is this a current diagnosis for this admission?: Yes Plan: Chronic and effecting his hyun and likely other vessels as well. Plan Summary: Try weaning again. Brian Dumont and Shaji spoke to the re; hospice care. As of now she is resistant. Critical Time Critical Time (minutes): 35 Level of Care: ICU Anticipated discharge: SNF Anticipated DC Timeframe: Other -: 1. The care of a critical patient is a dynamic process. This note is a small business representative synopsis but static in nature. The timeframe for treatments given in order is not necessarily the actual time these treatments may have been done. 2. This patient requires critical care secondary to ongoing requirements for therapy not offered or safe outside the critical care environment. Transfer to a lower level of care will result in altered life or limb morbidity and mortality. 3. Multidisciplinary rounds completed. 4. ABCDE bundle addressed.
--- NOTE | 2020-07-19 16:34 | Progress Note ---
Provider Note Provider Note: Cardiology PROGRESS NOTE by Dr. Samia Roper on 07/19/2020. SUBJECTIVE: The patient is intubated sedated. History discussed. His blood pressure stable without any pressors. He continues to be in sinus rhythm with second-degree AV block type I Mobitz type I Wenckebach. The nurses say when he still and his heart rate was 130s. There is no ventricular arrhythmias seen on the monitor there is no rapid tacky atrial arrhythmias. The patient's potassium is low at 2.8. This is being replenished. PHYSICAL EXAMINATION: The patient appears to be chronically ill and emaciated and malnourished Selected Entries 07/19/20 07/19/20 07/19/20 14:00 14:01 15:00 Heart Rate ( Monitors) Respiratory Rate Blood Pressure Blood Pressure Mean O2 Sat by Pulse 100 100 Oximetry Oxygen Delivery Mechanical Method ( Ventilator includes room air) Fraction of 30 Inspired Oxygen (FIO2) 07/19/20 07/19/20 07/19/20 15:06 15:07 15:21 Heart Rate ( 58 53 Monitors) Respiratory 16 Rate Blood Pressure 111/56 L Blood Pressure 74 Mean O2 Sat by Pulse Oximetry Oxygen Delivery Method ( includes room air) Fraction of Inspired Oxygen (FIO2) HEAD: Is atraumatic normocephalic. EYES: Pupils equal reactive to light. ENT is negative. There is right facial droop present. NECK: Supple. There is no JVD. Carotids are equal there is no bruits. Lungs: Fairly clear. Heart S1-S2 is heard there is no S3 gallop. There is no S4 gallop. There is no rub. ABDOMEN: Soft nontender. There is no hepatosplenomegaly. Bowel sounds well heard. EXTREMITIES: Femorals are diminished. Leg pulses are diminished. There is no pedal edema there is wasting of the muscles of the lower extremities. Labs- All tests 24 hr 07/18/20 07/19/20 07/19/20 23:43 04:05 04:05 Sodium 131.2 L Potassium 2.8 L* Chloride 95 L Carbon Dioxide 22 Anion Gap 14 BUN 45 H Creatinine 3.46 H Est GFR ( Amer) 22 L Est GFR (MDRD) Non-Af 18 L Glucose 228 H POC Glucose 186 H Calcium 8.8 Phosphorus 3.8 Magnesium 1.8 07/19/20 11:57 Sodium Potassium Chloride Carbon Dioxide Anion Gap BUN Creatinine Est GFR ( Amer) Est GFR (MDRD) Non-Af Glucose POC Glucose 206 H Calcium Phosphorus Magnesium Chest X-Ray 07/09/20 13:50 IMPRESSION: Stable enlarged cardiac silhouette, mild bilateral pleural effusions and bibasilar opacities, left greater than right. Head CT 07/09/20 14:42 IMPRESSION: 1. No significant interval changes since the prior examination dated 07/03/2020. No acute intracranial abnormality. 2. Chronic small vessel ischemic changes changes and mild atrophy. 3. Additional stable findings as above. EVIDENCE OF ACUTE STROKE: NO Foot X-Ray 07/10/20 00:00 IMPRESSION: SEVERE DIFFUSE DEMINERALIZATION. CHRONIC CHANGES IN THE 5TH TOE. PROGRESSIVE DESTRUCTION OF THE 2ND TOE. MAY BE DUE TO OSTEOMYELITIS. Chest X-Ray 07/10/20 16:17 IMPRESSION: 1. Interval placement of endotracheal tube, tip is approximately 3.4 cm proximal to the joselito. Nasogastric tube with the tip overlying the body of the stomach. No evidence of pneumothorax. 2. Lies, unchanged finding since the prior study dated 07/09/2020. Head CT 07/10/20 16:23 IMPRESSION: 1. No significant interval changes since the prior examinations dated 07/09/2020, 07/03/2020 and 04/12/2020. No acute intracranial abnormality. 2. Chronic mild small vessel ischemic changes. Stable appearance to the low attenuated area in the region of the right hankins radiata. Further evaluation with MRI Brain maybe helpful to exclude acute changes. 3. New finding of a fluid collection within the posterior nasopharynx which lies anterior and adjacent to the adenoids and extends into the oropharynx. Interval placement of endotracheal and nasogastric tube since the previous study dated 07/09/2020. This finding may be on an inflammatory basis, possibly due to reflux. Correlation suggested. EVIDENCE OF ACUTE STROKE: NO Chest X-Ray 07/13/20 00:00 IMPRESSION: The enteric tube is malpositioned and its tip projects at the level of the joselito within the thoracic esophagus. Otherwise unchanged radiographic appearance of the chest. Chest X-Ray 07/15/20 00:00 IMPRESSION: Repositioning of the enteric tube with the tip now projecting over the left upper quadrant. Otherwise, stable examination. Chest X-Ray 07/17/20 00:00 IMPRESSION: NO SIGNIFICANT CHANGE IN APPEARANCE OF THE CHEST. Chest X-Ray 07/17/20 12:24 IMPRESSION: SATISFACTORY POSITION OF THE ENDOTRACHEAL TUBE AND NASOGASTRIC TUBE. NO SIGNIFICANT CHANGE IN APPEARANCE OF THE CHEST. IMPRESSION/RECOMMENDATION: 1. Acute hypercapnic respiratory failure. Patient intubated. 2. Hypotension: This is resolved. The patient's blood pressure is now stable without pressors. In view of the patient being on steroids would recommend continue maintenance dose of 2 steroids and also fludrocortisone. We will leave this to the authors motivational. 3. End-stage renal disease on hemodialysis. 4. Possible osteomyelitis of the right foot. Recommend antibiotics. 5. Ischemic cardiomyopathy with moderately reduced LV ejection fraction. 6. Coronary artery disease, patient's troponin is elevated but this may be secondary to supply demand mismatch rather than VT the cause is being hypotension, respiratory failure and renal failure. 7. Diabetes mellitus: Continue high-level antidiabetic treatment. 8. History of prior CVA. 9. 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 Is there is also causing respiratory muscle weakness causing hypoventilation versus central sleep apnea. Will recommend a trial dose of modanafinil. 10. Hypokalemia: Replace potassium which is being done. The patient's overall prognosis is very guarded and poor. As discussed with Dr. Toby Tavares the immigration judge, and the attending physician Dr. Girard would recommend speaking with the patient's to make the patient hospice care. We will try to discuss this with the patient's . Medications reviewed. Extra dose of Florinef given. Medical regimen management plan discussed with attending provider on the case. Medical decision making is of moderate complexity. 40 minutes spent as patient with more than 50% time spent in direct patient care. Will follow.
[2020-07-19] MEDS: LATANOPROST 0.005% OPH SOLN 2.5 ML OU SCH (21:24)
--- NOTE | 2020-07-19 22:48 | PDOC PROGRESS REPORT ---
Subjective Progress Note for:: 07/19/20 Subjective:: Patient still intubated and is being seems to be a little bit more awake. Reason For Visit: ASPIRATION, HYPERCARBIC RESPIRATORY FAILURE Physical Exam Vital Signs: Temp Pulse Resp BP Pulse Ox 97.4 F 55 L 19 128/104 H 100 07/19/20 08:55 07/19/20 08:55 07/19/20 08:42 07/19/20 08:00 07/19/20 08:42 Intake & Output 07/18/20 07/19/20 07/20/20 06:59 06:59 06:59 Intake Total 1171 400 46 Output Total 100 680 0 Balance 1071 -280 46 Weight 60.8 kg 61 kg Exam: General appearance: PRESENT: Intubated Head exam: PRESENT: atraumatic, normocephalic Eye exam: PRESENT: Opens eyes Neck exam: ABSENT: JVD Respiratory exam: PRESENT: Coarse breath sounds. ABSENT: crackles, rales, rhonchi, unlabored, wheezes Cardiovascular exam: PRESENT: Regular rate rhythm -+S1, +S2. ABSENT: diastolic murmur, systolic murmur GI/Abdominal exam: PRESENT: normal bowel sounds, soft. ABSENT: guarding, mass, tenderness Extremities exam: Grade 1 bilateral lower extremity pitting edema Neurological exam: PRESENT: Occasionally opens eyes. Skin exam: PRESENT: dry, warm, Cardiovascular exam: PRESENT: +S1, +S2 GI/Abdominal exam: PRESENT: normal bowel sounds, soft. ABSENT: organomegaly, tenderness Results Laboratory Results: 07/18/20 05:37 07/19/20 04:05 07/19/20 07/19/20 04:05 04:05 Sodium 131.2 L Potassium 2.8 L* Chloride 95 L Carbon Dioxide 22 Anion Gap 14 BUN 45 H Creatinine 3.46 H Est GFR ( Amer) 22 L Glucose 228 H Calcium 8.8 Phosphorus 3.8 Magnesium 1.8 07/09/20 11:47 Troponin I 0.235 NT-Pro-B Natriuret Pep [id number] H Impressions: Foot X-Ray 07/10/20 00:00 IMPRESSION: SEVERE DIFFUSE DEMINERALIZATION. CHRONIC CHANGES IN THE 5TH TOE. PROGRESSIVE DESTRUCTION OF THE 2ND TOE. MAY BE DUE TO OSTEOMYELITIS. Head CT 07/10/20 16:23 IMPRESSION: 1. No significant interval changes since the prior examinations dated 07/09/2020, 07/03/2020 and 04/12/2020. No acute intracranial abnormality. 2. Chronic mild small vessel ischemic changes. Stable appearance to the low attenuated area in the region of the right hankins radiata. Further evaluation with MRI Brain maybe helpful to exclude acute changes. 3. New finding of a fluid collection within the posterior nasopharynx which lies anterior and adjacent to the adenoids and extends into the oropharynx. Interval placement of endotracheal and nasogastric tube since the previous study dated 07/09/2020. This finding may be on an inflammatory basis, possibly due to reflux. Correlation suggested. EVIDENCE OF ACUTE STROKE: NO Chest X-Ray 07/17/20 12:24 IMPRESSION: SATISFACTORY POSITION OF THE ENDOTRACHEAL TUBE AND NASOGASTRIC TUBE. NO SIGNIFICANT CHANGE IN APPEARANCE OF THE CHEST. Assessment & Plan - Diagnosis (1) ESRD on hemodialysis Is this a current diagnosis for this admission?: Yes Plan: Dialysis held yesterday. We will plan on dialysis tomorrow. (2) Acute respiratory failure with hypercapnia Is this a current diagnosis for this admission?: Yes Plan: Exact etiology uncertain. 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 Defer to appellate law clerk for management. (3) Hypokalemia Is this a current diagnosis for this admission?: Yes Plan: Replace as necessary. 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 (9) Diabetes mellitus, type II Qualifiers: Diabetes mellitus termite treater insulin use: without termite treater use Is this a current diagnosis for this admission?: Yes - Time Time with patient: 15-25 minutes
[2020-07-20] MEDS: INSULIN REG, HUMAN 100 UNIT/ML 3 ML VIAL (PYX) SUBCUT SCH ×4 (00:01→19:05)
[2020-07-20] MEDS ORDERED: LORAZEPAM INJ 2 MG/1 ML VIAL ONE (00:18)
[2020-07-20] MEDS ORDERED: LORAZEPAM INJ 2 MG/1 ML VIAL IV ONE (00:20)
[2020-07-20] MEDS: ALBUTEROL SULFATE 0.083% NEB 2.5 MG/3 ML AMPUL NEB SCH ×4 (02:05→20:27)
[2020-07-20] MEDS ORDERED: NORMAL SALINE 1000 ML 1,000 ML IV PRN (05:00)
[2020-07-20] MEDS ORDERED: HEPARIN SOD (PORCINE) 1,000 UNIT/ML 10 ML VIAL IV PRN (05:00)
[2020-07-20] MEDS: HYDROCORTISONE SOD SUCCINATE INJ/PF 100 MG/2 ML SDV IV SCH ×3 (05:17→22:29)
[2020-07-20 05:37] LABS: HEMATOCRIT 36.8 % (37.9-51.0); HEMOGLOBIN 12.1 g/dL (13.5-17.0); MEAN CORPUSCULAR HEMOGLOBIN 28.5 pg (27.0-33.4); MEAN CORPUSCULAR HGB CONC 32.8 g/dL (32.0-36.0); MEAN CORPUSCULAR VOLUME 87 fl (80-97); RED BLOOD COUNT 4.24 10^6/uL (4.35-5.55); RED CELL DISTRIBUTION WIDTH 16.6 % (11.5-14.0)
[2020-07-20 05:47] LABS: ANION GAP 15 (5-19); BLOOD UREA NITROGEN 49 mg/dL (7-20); CARBON DIOXIDE 21 mmol/L (22-30); CHLORIDE 98 mmol/L (98-107); GLUCOSE 242 mg/dL (75-110)
[2020-07-20 05:49] LABS: ABSOLUTE LYMPHOCYTES# (MANUAL) 0.5 10^3/uL (0.5-4.7); ABSOLUTE MONOCYTES # (MANUAL) 0.1 10^3/uL (0.1-1.4); BASOPHILS % (MANUAL) 0 % (0-2); EOSINOPHILS % (MANUAL) 0 % (0-6); LYMPHOCYTES % (MANUAL) 9 % (13-45); MONOCYTES % (MANUAL) 1 % (3-13); SEGMENTED NEUTROPHILS % (MAN) 90 % (42-78); TOTAL CELLS COUNTED 100
[2020-07-20 05:50] LABS: ANISOCYTOSIS 1+
[2020-07-20 05:51] LABS: PLATELET CLUMPS PRESENT; PLATELET COMMENT DECREASED; TEAR DROP CELLS SLIGHT; TOXIC GRANULATION SLIGHT; TOXIC VACUOLATION PRESENT
[2020-07-20 05:53] LABS: PLATELET COUNT 136 10^3/uL (150-450)
[2020-07-20 06:17] LABS: ARTERIAL BLOOD BASE EXCESS -4.7 mmol/L; ARTERIAL BLOOD H2CO3 0.83 mmol/L (1.05-1.35); ARTERIAL BLOOD HCO3 18.1 mmol/L (20-24); ARTERIAL BLOOD O2 SATURATION 98.7 % (94-98); ARTERIAL BLOOD PCO2 27.7 mmHg (35-45); ARTERIAL BLOOD PH 7.43 (7.35-7.45); ARTERIAL BLOOD PO2 126.9 mmHg (80-100); ARTERIAL BLOOD TOTAL CO2 18.9 mmol/L (23-27)
[2020-07-20 06:18] LABS: ARTERIAL BLOOD FIO2 30%
[2020-07-20] MEDS: HEPARIN SOD (PORCINE) 5,000 UNIT/ML 1 ML VIAL SUBCUT SCH ×3 (06:35→22:30)
[2020-07-20 06:43] LABS: ALBUMIN 3.1 g/dL (3.5-5.0); ALKALINE PHOSPHATASE 108 U/L (38-126); ASPARTATE AMINO TRANSFERASE 13 U/L (17-59); BILIRUBIN,DIRECT 1.1 mg/dL (0.0-0.4); BILIRUBIN,TOTAL 1.1 mg/dL (0.2-1.3); CREATINE KINASE 25 U/L (55-170); TOTAL PROTEIN 6.5 g/dL (6.3-8.2)
--- NOTE | 2020-07-20 10:23 | PDOC CRITICAL CARE PROG REPORT ---
General Date:: 07/20/20 ICU Day:: 3 Ventilator Day:: 3 Hospital Day:: 11 Resuscitation Status: Full Code Events in the past 12 to 24 Hours:: Failed attempt at PSV weaning. Review of systems relevant to events:: Pulmonary, CV, renal. Reason for ICU Addmission:: Obtunded and hypercarbic, need for intubation - Medications: Medications reviewed and adjusted accordingly: Yes Vasopressors:: None Sedation:: None Physical Exam Vital Signs: Temp Pulse Resp BP Pulse Ox 97.7 F 87 16 162/89 H 100 07/20/20 09:03 07/20/20 10:09 07/20/20 10:09 07/20/20 10:09 07/20/20 10:09 Intake & Output 07/19/20 07/20/20 07/21/20 06:59 06:59 06:59 Intake Total 400 566 Output Total 680 0 0 Balance -280 566 0 Weight 61 kg 62.5 kg Weight/Height Weight 62.5 kg Height 5 ft 7 in General appearance: PRESENT: no acute distress, thin Head exam: PRESENT: atraumatic, normocephalic Eye exam: PRESENT: conjunctiva pink, EOMI, PERRLA. ABSENT: scleral icterus Ear exam: PRESENT: normal external ear exam Mouth exam: PRESENT: moist, tongue midline Respiratory exam: PRESENT: clear to auscultation jolie. ABSENT: rales, rhonchi, wheezes Cardiovascular exam: PRESENT: RRR. ABSENT: diastolic murmur, rubs, systolic murmur GI/Abdominal exam: PRESENT: normal bowel sounds, soft. ABSENT: distended, guarding, mass, organolmegaly, rebound, tenderness Rectal exam: PRESENT: deferred Extremities exam: PRESENT: full ROM, other - Toes not black but skin is quite dark.. ABSENT: calf tenderness, clubbing, pedal edema Musculoskeletal exam: PRESENT: normal inspection Neurological exam: PRESENT: altered, CN II-XII grossly intact, other - He awakens but only looks. He cannot respond well. Skin exam: PRESENT: other - Darkened toes. Tubes/Lines: PRESENT: Endotracheal Tube, Dialysis catheter, Nasogastic Tube Laboratory/Radiographs Laboratory Results: 07/20/20 05:00 07/20/20 05:00 07/20/20 07/20/20 07/20/20 05:00 05:00 05:00 WBC 6.0 RBC 4.24 L Hgb 12.1 L Hct 36.8 L MCV 87 MCH 28.5 MCHC 32.8 RDW 16.6 H Plt Count 136 L Seg Neutrophils % Not Reportable Carbonic Acid HCO3/H2CO3 Ratio ABG pH ABG pCO2 ABG pO2 ABG HCO3 ABG O2 Saturation ABG Base Excess FiO2 Sodium 133.6 L Potassium 4.0 Chloride 98 Carbon Dioxide 21 L Anion Gap 15 BUN 49 H Creatinine 3.65 H Est GFR ( Amer) 20 L Glucose 242 H Calcium 9.0 Magnesium 1.6 Total Bilirubin AST Alkaline Phosphatase Total Protein Albumin 07/20/20 07/20/20 05:00 05:00 WBC RBC Hgb Hct MCV MCH MCHC RDW Plt Count Seg Neutrophils % Carbonic Acid 0.83 L HCO3/H2CO3 Ratio 21:1 ABG pH 7.43 ABG pCO2 27.7 L ABG pO2 126.9 H ABG HCO3 18.1 L ABG O2 Saturation 98.7 H ABG Base Excess -4.7 FiO2 30% Sodium Potassium Chloride Carbon Dioxide Anion Gap BUN Creatinine Est GFR ( Amer) Glucose Calcium Magnesium Total Bilirubin 1.1 AST 13 L Alkaline Phosphatase 108 Total Protein 6.5 Albumin 3.1 L 07/09/20 07/20/20 07/20/20 11:47 05:00 05:00 Creatine Kinase 25 L Troponin I 0.235 0.232 NT-Pro-B Natriuret Pep [id number] H Impressions: Foot X-Ray 07/10/20 00:00 IMPRESSION: SEVERE DIFFUSE DEMINERALIZATION. CHRONIC CHANGES IN THE 5TH TOE. PROGRESSIVE DESTRUCTION OF THE 2ND TOE. MAY BE DUE TO OSTEOMYELITIS. Head CT 07/10/20 16:23 IMPRESSION: 1. No significant interval changes since the prior examinations dated 07/09/2020, 07/03/2020 and 04/12/2020. No acute intracranial abnormality. 2. Chronic mild small vessel ischemic changes. Stable appearance to the low attenuated area in the region of the right hankins radiata. Further evaluation with MRI Brain maybe helpful to exclude acute changes. 3. New finding of a fluid collection within the posterior nasopharynx which lies anterior and adjacent to the adenoids and extends into the oropharynx. Interval placement of endotracheal and nasogastric tube since the previous study dated 07/09/2020. This finding may be on an inflammatory basis, possibly due to reflux. Correlation suggested. EVIDENCE OF ACUTE STROKE: NO Chest X-Ray 07/17/20 12:24 IMPRESSION: SATISFACTORY POSITION OF THE ENDOTRACHEAL TUBE AND NASOGASTRIC TUBE. NO SIGNIFICANT CHANGE IN APPEARANCE OF THE CHEST. All labs, radiographs, diagnostic studies and EKGs were personally reviewed: Yes In addition, reports of radiographic and diagnostic studies were read: Yes Assessment and Plan - Diagnosis (1) Acute respiratory failure Qualifiers: Respiratory failure complication: hypercapnia Qualified Code(s): J96.02 - Acute respiratory failure with hypercapnia Is this a current diagnosis for this admission?: Yes Plan: He is too weak to wean. We tried him on PSV yesterday and he became tachypnic after about 10 minutes, rested for the rest of the day. We will more slowly wean his rate and hope to try PSV again later today. (2) ESRD on hemodialysis Is this a current diagnosis for this admission?: Yes Plan: He tolerated a short HD run today. No fluid removed. 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 (4) Peripheral vascular disease Is this a current diagnosis for this admission?: Yes Plan: He is seeing a vascular surgeon for his toes which are dark but not black-yet. There is a degree of PVD. (5) Tremor Is this a current diagnosis for this admission?: Yes Plan: There were some tremors noticed last night involving his face. EEG pending for today more so to rule out seizures. Plan Summary: Will try to wean vent again today to PSV. Aparently his feels strongly that hospice is not an option for her. Critical Time Critical Time (minutes): 35 Level of Care: ICU Anticipated discharge: SNF Anticipated DC Timeframe: Other -: 1. The care of a critical patient is a dynamic process. This note is a fraud representative synopsis but static in nature. The timeframe for treatments given in order is not necessarily the actual time these treatments may have been done. 2. This patient requires critical care secondary to ongoing requirements for therapy not offered or safe outside the critical care environment. Transfer to a lower level of care will result in altered life or limb morbidity and mortality. 3. Multidisciplinary rounds completed. 4. ABCDE bundle addressed.
[2020-07-20] MEDS: POTASSIUM CHLORIDE 20 MEQ PACKET NG SCH (11:02)
[2020-07-20] MEDS: MIDODRINE HCL 5 MG TABLET NG SCH ×3 (11:02→19:08)
[2020-07-20] MEDS: DOCUSATE SODIUM 100 MG/10 ML UDC NG SCH (11:02)
[2020-07-20] MEDS: COLCHICINE 0.6 MG TABLET NG SCH ×2 (11:02→19:08)
[2020-07-20] MEDS: FAMOTIDINE INJ/PF 20 MG/2 ML SDV IV SCH (11:03)
[2020-07-20] MEDS: CEFEPIME 1 GM/D5W RTU 1 GM/50 ML RTUPB IV SCH ×2 (11:03→22:29)
--- NOTE | 2020-07-20 13:14 | Progress Note ---
Provider Note Provider Note: CARDIOLOGY PROGRESS NOTE by Dr. Oscar Olivarez on 07/20/2020. SUBJECTIVE: Patient remains status quo. 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 His blood pressure is stable. There is no arrhythmias seen on the monitor. Attempts to wean him off has been unsuccessful. PHYSICAL EXAMINATION: The patient appears to be malnourished and chronically ill. He appears emaciated. Selected Entries 07/20/20 14:00 Pulse Rate 56 L Respiratory 9 L Rate Positive End 5 Expiratory Pressure Blood Pressure 131/66 H [Upper Arm] Blood Pressure 87 Mean [Upper Arm ] Blood Pressure Supine Position [Upper Arm] O2 Sat by Pulse 100 Oximetry Oxygen Delivery Mechanical Method ( Ventilator includes room air) Fraction of 30 Inspired Oxygen (FIO2) HEAD: Is atraumatic normocephalic. EYES: Pupils equal reactive to light. ENT is negative. There is right facial droop present. NECK: Supple. There is no JVD. Carotids are equal there is no bruits. Lungs: Fairly clear. Heart S1-S2 is heard there is no S3 gallop. There is no S4 gallop. There is no rub. ABDOMEN: Soft nontender. There is no hepatosplenomegaly. Bowel sounds well heard. EXTREMITIES: Femorals are diminished. Leg pulses are diminished. There is no pedal edema there is wasting of the muscles of the lower extremities. Labs- All tests 24 hr 07/19/20 07/19/20 07/20/20 17:32 23:55 05:00 WBC RBC Hgb Hct MCV MCH MCHC RDW Plt Count Lymph % (Auto) Mcminn % (Auto) Eos % (Auto) Baso % (Auto) Absolute Neuts (auto) Absolute Lymphs (auto) Absolute Monos (auto) Absolute Eos (auto) Absolute Basos (auto) Total Counted Seg Neutrophils % Seg Neuts % (Manual) Lymphocytes % (Manual) Monocytes % (Manual) Eosinophils % (Manual) Basophils % (Manual) Abs Neuts (Manual) Abs Lymphs (Manual) Abs Monocytes (Manual) Absolute Eos (Manual) Abs Basophils (Manual) Toxic Granulation Toxic Vacuolation Clumped Platelets Platelet Comment Anisocytosis Tear Drop Cells Carbonic Acid HCO3/H2CO3 Ratio ABG pH ABG pCO2 ABG pO2 ABG HCO3 ABG Total CO2 ABG O2 Saturation ABG Base Excess FiO2 Sodium Potassium Chloride Carbon Dioxide Anion Gap BUN Creatinine Est GFR ( Amer) Est GFR (MDRD) Non-Af Glucose POC Glucose 181 H 192 H Calcium Magnesium 1.6 Total Bilirubin Direct Bilirubin Neonat Total Bilirubin Neonat Direct Bilirubin Neonat Indirect Bili AST ALT Alkaline Phosphatase Creatine Kinase Troponin I Total Protein Albumin 07/20/20 07/20/20 07/20/20 05:00 05:00 05:00 WBC 6.0 RBC 4.24 L Hgb 12.1 L Hct 36.8 L MCV 87 MCH 28.5 MCHC 32.8 RDW 16.6 H Plt Count 136 L Lymph % (Auto) Not Reportable Mcminn % (Auto) Not Reportable Eos % (Auto) Not Reportable Baso % (Auto) Not Reportable Absolute Neuts (auto) Not Reportable Absolute Lymphs (auto) Not Reportable Absolute Monos (auto) Not Reportable Absolute Eos (auto) Not Reportable Absolute Basos (auto) Not Reportable Total Counted 100 Seg Neutrophils % Not Reportable Seg Neuts % (Manual) 90 H Lymphocytes % (Manual) 9 L Monocytes % (Manual) 1 L Eosinophils % (Manual) 0 Basophils % (Manual) 0 Abs Neuts (Manual) 5.4 Abs Lymphs (Manual) 0.5 Abs Monocytes (Manual) 0.1 Absolute Eos (Manual) 0.0 Abs Basophils (Manual) 0.0 Toxic Granulation SLIGHT Toxic Vacuolation PRESENT Clumped Platelets PRESENT Platelet Comment DECREASED Anisocytosis 1+ Tear Drop Cells SLIGHT Carbonic Acid 0.83 L HCO3/H2CO3 Ratio 21:1 ABG pH 7.43 ABG pCO2 27.7 L ABG pO2 126.9 H ABG HCO3 18.1 L ABG Total CO2 18.9 L ABG O2 Saturation 98.7 H ABG Base Excess -4.7 FiO2 30% Sodium 133.6 L Potassium 4.0 Chloride 98 Carbon Dioxide 21 L Anion Gap 15 BUN 49 H Creatinine 3.65 H Est GFR ( Amer) 20 L Est GFR (MDRD) Non-Af 17 L Glucose 242 H POC Glucose Calcium 9.0 Magnesium Total Bilirubin Direct Bilirubin Neonat Total Bilirubin Neonat Direct Bilirubin Neonat Indirect Bili AST ALT Alkaline Phosphatase Creatine Kinase Troponin I Total Protein Albumin 07/20/20 07/20/20 07/20/20 05:00 05:00 05:13 WBC RBC Hgb Hct MCV MCH MCHC RDW Plt Count Lymph % (Auto) Mcminn % (Auto) Eos % (Auto) Baso % (Auto) Absolute Neuts (auto) Absolute Lymphs (auto) Absolute Monos (auto) Absolute Eos (auto) Absolute Basos (auto) Total Counted Seg Neutrophils % Seg Neuts % (Manual) Lymphocytes % (Manual) Monocytes % (Manual) Eosinophils % (Manual) Basophils % (Manual) Abs Neuts (Manual) Abs Lymphs (Manual) Abs Monocytes (Manual) Absolute Eos (Manual) Abs Basophils (Manual) Toxic Granulation Toxic Vacuolation Clumped Platelets Platelet Comment Anisocytosis Tear Drop Cells Carbonic Acid HCO3/H2CO3 Ratio ABG pH ABG pCO2 ABG pO2 ABG HCO3 ABG Total CO2 ABG O2 Saturation ABG Base Excess FiO2 Sodium Potassium Chloride Carbon Dioxide Anion Gap BUN Creatinine Est GFR ( Amer) Est GFR (MDRD) Non-Af Glucose POC Glucose 202 H Calcium Magnesium Total Bilirubin 1.1 Direct Bilirubin 1.1 H Neonat Total Bilirubin Not Reportable Neonat Direct Bilirubin Not Reportable Neonat Indirect Bili Not Reportable AST 13 L ALT 10 Alkaline Phosphatase 108 Creatine Kinase 25 L Troponin I 0.232 Total Protein 6.5 Albumin 3.1 L 07/20/20 07/20/20 12:26 18:44 WBC RBC Hgb Hct MCV MCH MCHC RDW Plt Count Lymph % (Auto) Mcminn % (Auto) Eos % (Auto) Baso % (Auto) Absolute Neuts (auto) Absolute Lymphs (auto) Absolute Monos (auto) Absolute Eos (auto) Absolute Basos (auto) Total Counted Seg Neutrophils % Seg Neuts % (Manual) Lymphocytes % (Manual) Monocytes % (Manual) Eosinophils % (Manual) Basophils % (Manual) Abs Neuts (Manual) Abs Lymphs (Manual) Abs Monocytes (Manual) Absolute Eos (Manual) Abs Basophils (Manual) Toxic Granulation Toxic Vacuolation Clumped Platelets Platelet Comment Anisocytosis Tear Drop Cells Carbonic Acid HCO3/H2CO3 Ratio ABG pH ABG pCO2 ABG pO2 ABG HCO3 ABG Total CO2 ABG O2 Saturation ABG Base Excess FiO2 Sodium Potassium Chloride Carbon Dioxide Anion Gap BUN Creatinine Est GFR ( Amer) Est GFR (MDRD) Non-Af Glucose POC Glucose 193 H 199 H Calcium Magnesium Total Bilirubin Direct Bilirubin Neonat Total Bilirubin Neonat Direct Bilirubin Neonat Indirect Bili AST ALT Alkaline Phosphatase Creatine Kinase Troponin I Total Protein Albumin Chest X-Ray 07/09/20 13:50 IMPRESSION: Stable enlarged cardiac silhouette, mild bilateral pleural effusions and bibasilar opacities, left greater than right. Head CT 07/09/20 14:42 IMPRESSION: 1. No significant interval changes since the prior examination dated 07/03/2020. No acute intracranial abnormality. 2. Chronic small vessel ischemic changes changes and mild atrophy. 3. Additional stable findings as above. EVIDENCE OF ACUTE STROKE: NO Foot X-Ray 07/10/20 00:00 IMPRESSION: SEVERE DIFFUSE DEMINERALIZATION. CHRONIC CHANGES IN THE 5TH TOE. PROGRESSIVE DESTRUCTION OF THE 2ND TOE. MAY BE DUE TO OSTEOMYELITIS. Chest X-Ray 07/10/20 16:17 IMPRESSION: 1. Interval placement of endotracheal tube, tip is approximately 3.4 cm proximal to the joselito. Nasogastric tube with the tip overlying the body of the stomach. No evidence of pneumothorax. 2. Lies, unchanged finding since the prior study dated 07/09/2020. Head CT 07/10/20 16:23 IMPRESSION: 1. No significant interval changes since the prior examinations dated 07/09/2020, 07/03/2020 and 04/12/2020. No acute intracranial abnormality. 2. Chronic mild small vessel ischemic changes. Stable appearance to the low attenuated area in the region of the right hankins radiata. Further evaluation with MRI Brain maybe helpful to exclude acute changes. 3. New finding of a fluid collection within the posterior nasopharynx which lies anterior and adjacent to the adenoids and extends into the oropharynx. Interval placement of endotracheal and nasogastric tube since the previous study dated 07/09/2020. This finding may be on an inflammatory basis, possibly due to reflux. Correlation suggested. EVIDENCE OF ACUTE STROKE: NO Chest X-Ray 07/13/20 00:00 IMPRESSION: The enteric tube is malpositioned and its tip projects at the level of the joselito within the thoracic esophagus. Otherwise unchanged radiographic appearance of the chest. Chest X-Ray 07/15/20 00:00 IMPRESSION: Repositioning of the enteric tube with the tip now projecting over the left upper quadrant. Otherwise, stable examination. Chest X-Ray 07/17/20 00:00 IMPRESSION: NO SIGNIFICANT CHANGE IN APPEARANCE OF THE CHEST. Chest X-Ray 07/17/20 12:24 IMPRESSION: SATISFACTORY POSITION OF THE ENDOTRACHEAL TUBE AND NASOGASTRIC TUBE. NO SIGNIFICANT CHANGE IN APPEARANCE OF THE CHEST. IMPRESSION/RECOMMENDATION: 1. Acute hypercapnic respiratory failure. Patient intubated. 2. Hypotension: This is resolved. The patient's blood pressure is now stable without pressors. In view of the patient being on steroids would recommend continue maintenance dose of 2 steroids and also fludrocortisone. We will leave this to the rn anesthetist. 3. End-stage renal disease on hemodialysis. 4. Possible osteomyelitis of the right foot. Recommend antibiotics. 5. Ischemic cardiomyopathy with moderately reduced LV ejection fraction. 6. Coronary artery disease, patient's troponin is elevated but this may be secondary to supply demand mismatch rather than MN the cause is being hypotension, respiratory failure and renal failure. 7. Diabetes mellitus: Continue high-level antidiabetic treatment. 8. History of prior CVA. 9. 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 Is there is also causing respiratory muscle weakness causing hypoventilation versus central sleep apnea. Will recommend a trial dose of modanafinil.
--- NOTE | 2020-07-20 18:27 | PDOC PROGRESS REPORT ---
Subjective Progress Note for:: 07/20/20 Subjective:: I am seeing the patient during dialysis this morning. He remains to be intubated as he failed weaning trials. So far is tolerating dialysis without any ultrafiltration with acceptable blood pressure and hemodynamics. Reason For Visit: ASPIRATION, HYPERCARBIC RESPIRATORY FAILURE Physical Exam Vital Signs: Temp Pulse Resp BP Pulse Ox 97.7 F 74 13 142/78 H 100 07/20/20 09:03 07/20/20 09:03 07/20/20 07:59 07/20/20 07:59 07/20/20 07:59 Intake & Output 07/19/20 07/20/20 07/21/20 06:59 06:59 06:59 Intake Total 400 566 Output Total 680 0 0 Balance -280 566 0 Weight 61 kg 62.5 kg Vitals during dialysis: Blood pressure 159/91, heart rate of 72, saturation 100% with FiO2 of 30% on the ventilator blood flow rate of 300 mL/min and dialysate flow rate of 600 mL/min. Exam: General appearance: PRESENT: Intubated with very minimal response of eye opening Head exam: PRESENT: atraumatic, normocephalic Eye exam: PRESENT: Eyes closed Neck exam: ABSENT: JVD Respiratory exam: PRESENT: Coarse breath sounds. ABSENT: crackles, rales, rhonchi, unlabored, wheezes Cardiovascular exam: PRESENT: Regular rate rhythm -+S1, +S2. ABSENT: diastolic murmur, systolic murmur GI/Abdominal exam: PRESENT: normal bowel sounds, soft. ABSENT: guarding, mass, tenderness Extremities exam: Grade 1 bilateral lower extremity edema Neurological exam: PRESENT: Mostly unresponsive. Skin exam: PRESENT: dry, warm, Cardiovascular exam: PRESENT: +S1, +S2 GI/Abdominal exam: PRESENT: normal bowel sounds, soft. ABSENT: organomegaly, tenderness Results Laboratory Results: 07/20/20 05:00 07/20/20 05:00 07/20/20 07/20/20 07/20/20 05:00 05:00 05:00 WBC 6.0 RBC 4.24 L Hgb 12.1 L Hct 36.8 L MCV 87 MCH 28.5 MCHC 32.8 RDW 16.6 H Plt Count 136 L Seg Neutrophils % Not Reportable Carbonic Acid HCO3/H2CO3 Ratio ABG pH ABG pCO2 ABG pO2 ABG HCO3 ABG O2 Saturation ABG Base Excess FiO2 Sodium 133.6 L Potassium 4.0 Chloride 98 Carbon Dioxide 21 L Anion Gap 15 BUN 49 H Creatinine 3.65 H Est GFR ( Amer) 20 L Glucose 242 H Calcium 9.0 Magnesium 1.6 Total Bilirubin AST Alkaline Phosphatase Total Protein Albumin 07/20/20 07/20/20 05:00 05:00 WBC RBC Hgb Hct MCV MCH MCHC RDW Plt Count Seg Neutrophils % Carbonic Acid 0.83 L HCO3/H2CO3 Ratio 21:1 ABG pH 7.43 ABG pCO2 27.7 L ABG pO2 126.9 H ABG HCO3 18.1 L ABG O2 Saturation 98.7 H ABG Base Excess -4.7 FiO2 30% Sodium Potassium Chloride Carbon Dioxide Anion Gap BUN Creatinine Est GFR ( Amer) Glucose Calcium Magnesium Total Bilirubin 1.1 AST 13 L Alkaline Phosphatase 108 Total Protein 6.5 Albumin 3.1 L 07/09/20 07/20/20 07/20/20 11:47 05:00 05:00 Creatine Kinase 25 L Troponin I 0.235 0.232 NT-Pro-B Natriuret Pep [id number] H Impressions: Foot X-Ray 07/10/20 00:00 IMPRESSION: SEVERE DIFFUSE DEMINERALIZATION. CHRONIC CHANGES IN THE 5TH TOE. PROGRESSIVE DESTRUCTION OF THE 2ND TOE. MAY BE DUE TO OSTEOMYELITIS. Head CT 07/10/20 16:23 IMPRESSION: 1. No significant interval changes since the prior examinations dated 07/09/2020, 07/03/2020 and 04/12/2020. No acute intracranial abnormality. 2. Chronic mild small vessel ischemic changes. Stable appearance to the low attenuated area in the region of the right hankins radiata. Further evaluation with MRI Brain maybe helpful to exclude acute changes. 3. New finding of a fluid collection within the posterior nasopharynx which lies anterior and adjacent to the adenoids and extends into the oropharynx. Interval placement of endotracheal and nasogastric tube since the previous study dated 07/09/2020. This finding may be on an inflammatory basis, possibly due to reflux. Correlation suggested. EVIDENCE OF ACUTE STROKE: NO Chest X-Ray 07/17/20 12:24 IMPRESSION: SATISFACTORY POSITION OF THE ENDOTRACHEAL TUBE AND NASOGASTRIC TUBE. NO SIGNIFICANT CHANGE IN APPEARANCE OF THE CHEST. Assessment & Plan - Diagnosis (1) ESRD on hemodialysis Is this a current diagnosis for this admission?: Yes Plan: We will do dialysis today for 2.5 hours, using the patient's PermCath, with 3 potassium bath, blood flow rate of 300-350 mL per minute, dialysate flow rate of 600 mL per minute, ultrafiltration none, no heparin and no Procrit. Patient is monitored closely during dialysis. (2) Acute respiratory failure with hypercapnia Is this a current diagnosis for this admission?: Yes Plan: Exact etiology uncertain. 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 Defer to filament wound parts fabricator for management. (3) Hypokalemia Is this a current diagnosis for this admission?: Yes Plan: Replace and is now acceptable. Adjust potassium bath on dialysis. 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 (9) Diabetes mellitus, type II Qualifiers: Diabetes mellitus group home insulin use: without termite treater use Is this a current diagnosis for this admission?: Yes - Time Time with patient: 15-25 minutes
[2020-07-20] MEDS: LATANOPROST 0.005% OPH SOLN 2.5 ML OU SCH (22:30)
[2020-07-21] MEDS: ALBUTEROL SULFATE 0.083% NEB 2.5 MG/3 ML AMPUL NEB SCH ×4 (02:06→20:01)
[2020-07-21 07:14] LABS: HEMATOCRIT 33.8 % (37.9-51.0); HEMOGLOBIN 11.4 g/dL (13.5-17.0); MEAN CORPUSCULAR HEMOGLOBIN 28.9 pg (27.0-33.4); MEAN CORPUSCULAR HGB CONC 33.7 g/dL (32.0-36.0); MEAN CORPUSCULAR VOLUME 86 fl (80-97); PLATELET COUNT 101 10^3/uL (150-450); RED BLOOD COUNT 3.94 10^6/uL (4.35-5.55); RED CELL DISTRIBUTION WIDTH 16.5 % (11.5-14.0)
[2020-07-21 07:20] LABS: ALBUMIN 3.1 g/dL (3.5-5.0); ANION GAP 15 (5-19); BLOOD UREA NITROGEN 46 mg/dL (7-20); CALCIUM 8.7 mg/dL (8.4-10.2); CARBON DIOXIDE 21 mmol/L (22-30); CHLORIDE 99 mmol/L (98-107); GLUCOSE 306 mg/dL (75-110); PHOSPHORUS 1.8 mg/dL (2.5-4.5); POTASSIUM 3.1 mmol/L (3.6-5.0)
[2020-07-21] MEDS: INSULIN REG, HUMAN 100 UNIT/ML 3 ML VIAL (PYX) SUBCUT SCH ×4 (08:11→17:56)
[2020-07-21] MEDS: HEPARIN SOD (PORCINE) 5,000 UNIT/ML 1 ML VIAL SUBCUT SCH ×3 (08:12→21:42)
--- NOTE | 2020-07-21 09:00 | PDOC CRITICAL CARE PROG REPORT ---
General Date:: 07/21/20 ICU Day:: 5 Ventilator Day:: 5 Hospital Day:: 12 Resuscitation Status: Full Code Events in the past 12 to 24 Hours:: His mental status has declined a bit. Review of systems relevant to events:: Neurological, pulmonary. Reason for ICU Addmission:: Obtunded and hypercarbic, need for intubation - Medications: Medications reviewed and adjusted accordingly: Yes Vasopressors:: None Sedation:: None Physical Exam Vital Signs: Temp Pulse Resp BP Pulse Ox 98.1 F 70 16 158/100 H 100 07/21/20 08:27 07/21/20 08:34 07/21/20 08:34 07/21/20 08:00 07/21/20 08:34 Intake & Output 07/20/20 07/21/20 07/22/20 06:59 06:59 06:59 Intake Total 566 640 Output Total 0 900 0 Balance 566 -260 0 Weight 62.5 kg 61.9 kg Weight/Height Weight 61.9 kg Height 5 ft 7 in General appearance: PRESENT: no acute distress, thin Head exam: PRESENT: atraumatic, normocephalic Eye exam: PRESENT: conjunctiva pink, EOMI, PERRLA. ABSENT: scleral icterus Ear exam: PRESENT: normal external ear exam Mouth exam: PRESENT: moist, tongue midline Respiratory exam: PRESENT: clear to auscultation jolie, decreased breath sounds, rhonchi. ABSENT: rales, wheezes Cardiovascular exam: PRESENT: RRR. ABSENT: diastolic murmur, rubs, systolic murmur GI/Abdominal exam: PRESENT: normal bowel sounds, soft. ABSENT: distended, guarding, mass, organolmegaly, rebound, tenderness Rectal exam: PRESENT: deferred Gentrourinary exam: PRESENT: indwelling catheter Extremities exam: PRESENT: full ROM. ABSENT: calf tenderness, clubbing, pedal edema Musculoskeletal exam: PRESENT: normal inspection Neurological exam: PRESENT: altered, other - He will open eyes to touch at times. Skin exam: PRESENT: other - Toes still discolored Tubes/Lines: PRESENT: Endotracheal Tube, Central Line, Nasogastic Tube Laboratory/Radiographs Laboratory Results: 07/21/20 06:10 07/21/20 06:10 07/21/20 07/21/20 06:10 06:10 WBC 7.0 RBC 3.94 L Hgb 11.4 L Hct 33.8 L MCV 86 MCH 28.9 MCHC 33.7 RDW 16.5 H Plt Count 101 L Sodium 134.9 L Potassium 3.1 L Chloride 99 Carbon Dioxide 21 L Anion Gap 15 BUN 46 H Creatinine 3.13 H Est GFR ( Amer) 24 L Glucose 306 H Calcium 8.7 Phosphorus 1.8 L Magnesium 1.7 Albumin 3.1 L 07/09/20 07/20/20 07/20/20 11:47 05:00 05:00 Creatine Kinase 25 L Troponin I 0.235 0.232 NT-Pro-B Natriuret Pep [id number] H Impressions: Foot X-Ray 07/10/20 00:00 IMPRESSION: SEVERE DIFFUSE DEMINERALIZATION. CHRONIC CHANGES IN THE 5TH TOE. PROGRESSIVE DESTRUCTION OF THE 2ND TOE. MAY BE DUE TO OSTEOMYELITIS. Head CT 07/10/20 16:23 IMPRESSION: 1. No significant interval changes since the prior examinations dated 07/09/2020, 07/03/2020 and 04/12/2020. No acute intracranial abnormality. 2. Chronic mild small vessel ischemic changes. Stable appearance to the low attenuated area in the region of the right hankins radiata. Further evaluation with MRI Brain maybe helpful to exclude acute changes. 3. New finding of a fluid collection within the posterior nasopharynx which lies anterior and adjacent to the adenoids and extends into the oropharynx. Interval placement of endotracheal and nasogastric tube since the previous study dated 07/09/2020. This finding may be on an inflammatory basis, possibly due to reflux. Correlation suggested. EVIDENCE OF ACUTE STROKE: NO Chest X-Ray 07/17/20 12:24 IMPRESSION: SATISFACTORY POSITION OF THE ENDOTRACHEAL TUBE AND NASOGASTRIC TUBE. NO SIGNIFICANT CHANGE IN APPEARANCE OF THE CHEST. All labs, radiographs, diagnostic studies and EKGs were personally reviewed: Yes In addition, reports of radiographic and diagnostic studies were read: Yes Assessment and Plan - Diagnosis (1) Acute respiratory failure Qualifiers: Respiratory failure complication: hypercapnia Qualified Code(s): J96.02 - Acute respiratory failure with hypercapnia Is this a current diagnosis for this admission?: Yes Plan: He is currently not awake enough to protect airway. Not weanable. I believe now that a withdraw and comfort care is best. (2) ESRD on hemodialysis Is this a current diagnosis for this admission?: Yes Plan: He is not in need of HD today. 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 (4) Peripheral vascular disease Is this a current diagnosis for this admission?: Yes Plan: No change (5) Tremor Is this a current diagnosis for this admission?: Yes Plan: This is not seizure activity, it seems to be more myoclonic with tactile stimulatin. Plan Summary: Continue to proceed as planned. should be updated early this week. At present many people have approached her regarding comfort care and she has refused. She will need to come to this conclusion on her own. Critical Time Critical Time (minutes): 35 Level of Care: ICU Anticipated discharge: Hospice Anticipated DC Timeframe: Other -: 1. The care of a critical patient is a dynamic process. This note is a risk control field representative synopsis but static in nature. The timeframe for treatments given in order is not necessarily the actual time these treatments may have been done. 2. This patient requires critical care secondary to ongoing requirements for therapy not offered or safe outside the critical care environment. Transfer to a lower level of care will result in altered life or limb morbidity and mortality. 3. Multidisciplinary rounds completed. 4. ABCDE bundle addressed.
[2020-07-21] MEDS: CEFEPIME 1 GM/D5W RTU 1 GM/50 ML RTUPB IV SCH ×2 (09:21→21:44)
[2020-07-21] MEDS: DOCUSATE SODIUM 100 MG/10 ML UDC NG SCH (09:21)
[2020-07-21] MEDS: HYDROCORTISONE SOD SUCCINATE INJ/PF 100 MG/2 ML SDV IV SCH ×2 (09:21→21:44)
[2020-07-21] MEDS: FAMOTIDINE INJ/PF 20 MG/2 ML SDV IV SCH (09:21)
[2020-07-21] MEDS: MIDODRINE HCL 5 MG TABLET NG SCH ×3 (09:21→17:58)
[2020-07-21] MEDS: COLCHICINE 0.6 MG TABLET NG SCH ×2 (09:44→17:58)
[2020-07-21] MEDS ORDERED: POTASSIUM CHLORIDE 10 MEQ TABLET.ER PO SCH (10:00)
[2020-07-21] MEDS: POTASSIUM CHLORIDE 20 MEQ PACKET NG SCH (10:05)
--- NOTE | 2020-07-21 12:07 | Progress Note ---
Provider Note Provider Note: Cardiology progress notes by Dr. Moore has been on 07/21/2020. SUBJECTIVE: The patient is status quo. The patient continues to be in Wenckebach second-degree AV block type I. His blood pressure is stable without pressors. He continues to be intubated and sedated. There is no ventricular arrhythmias seen on the monitor. PHYSICAL EXAMINATION: The patient appears to be emaciated, chronically ill and malnourished. Selected Entries 07/21/20 07/21/20 07/21/20 18:18 19:41 20:01 Temperature 98.1 F Temperature Axillary Source Heart Rate ( 66 Monitors) Respiratory 15 17 Rate Respiratory Mechanically Effort Ventilated Blood Pressure 157/84 H Blood Pressure 108 Mean O2 Sat by Pulse 100 Oximetry Fraction of 30 Inspired Oxygen (FIO2) HEAD: Is atraumatic normocephalic. EYES: Pupils equal reactive to light. ENT is negative. There is right facial droop present. NECK: Supple. There is no JVD. Carotids are equal there is no bruits. Lungs: Fairly clear. Heart S1-S2 is heard there is no S3 gallop. There is no S4 gallop. There is no rub. ABDOMEN: Soft nontender. There is no hepatosplenomegaly. Bowel sounds well heard. EXTREMITIES: Femorals are diminished. Leg pulses are diminished. There is no pedal edema there is wasting of the muscles of the lower extremities. INDUSTRIAL RELATIONS REPRESENTATIVE and psychiatric exam not performed due to recurrent patient status. Chest X-Ray 07/09/20 13:50 IMPRESSION: Stable enlarged cardiac silhouette, mild bilateral pleural effusions and bibasilar opacities, left greater than right. Head CT 07/09/20 14:42 IMPRESSION: 1. No significant interval changes since the prior examination dated 07/03/2020. No acute intracranial abnormality. 2. Chronic small vessel ischemic changes changes and mild atrophy. 3. Additional stable findings as above. EVIDENCE OF ACUTE STROKE: NO Foot X-Ray 07/10/20 00:00 IMPRESSION: SEVERE DIFFUSE DEMINERALIZATION. CHRONIC CHANGES IN THE 5TH TOE. PROGRESSIVE DESTRUCTION OF THE 2ND TOE. MAY BE DUE TO OSTEOMYELITIS. Chest X-Ray 07/10/20 16:17 IMPRESSION: 1. Interval placement of endotracheal tube, tip is approximately 3.4 cm proximal to the joselito. Nasogastric tube with the tip overlying the body of the stomach. No evidence of pneumothorax. 2. Lies, unchanged finding since the prior study dated 07/09/2020. Head CT 07/10/20 16:23 IMPRESSION: 1. No significant interval changes since the prior examinations dated 07/09/2020, 07/03/2020 and 04/12/2020. No acute intracranial abnormality. 2. Chronic mild small vessel ischemic changes. Stable appearance to the low attenuated area in the region of the right hankins radiata. Further evaluation with MRI Brain maybe helpful to exclude acute changes. 3. New finding of a fluid collection within the posterior nasopharynx which lies anterior and adjacent to the adenoids and extends into the oropharynx. Interval placement of endotracheal and nasogastric tube since the previous study dated 07/09/2020. This finding may be on an inflammatory basis, possibly due to reflux. Correlation suggested. EVIDENCE OF ACUTE STROKE: NO Chest X-Ray 07/13/20 00:00 IMPRESSION: The enteric tube is malpositioned and its tip projects at the level of the joselito within the thoracic esophagus. Otherwise unchanged radiographic a ppearance of the chest. Chest X-Ray 07/15/20 00:00 IMPRESSION: Repositioning of the enteric tube with the tip now projecting over the left upper quadrant. Otherwise, stable examination. Chest X-Ray 07/17/20 00:00 IMPRESSION: NO SIGNIFICANT CHANGE IN APPEARANCE OF THE CHEST. Chest X-Ray 07/17/20 12:24 IMPRESSION: SATISFACTORY POSITION OF THE ENDOTRACHEAL TUBE AND NASOGASTRIC TUBE. NO SIGNIFICANT CHANGE IN APPEARANCE OF THE CHEST. Labs- All tests 24 hr 07/21/20 07/21/20 07/21/20 06:10 06:10 06:22 WBC 7.0 RBC 3.94 L Hgb 11.4 L Hct 33.8 L MCV 86 MCH 28.9 MCHC 33.7 RDW 16.5 H Plt Count 101 L Sodium 134.9 L Potassium 3.1 L Chloride 99 Carbon Dioxide 21 L Anion Gap 15 BUN 46 H Creatinine 3.13 H Est GFR ( Amer) 24 L Est GFR (MDRD) Non-Af 20 L Glucose 306 H POC Glucose 266 H Calcium 8.7 Phosphorus 1.8 L Magnesium 1.7 Albumin 3.1 L 07/21/20 07/21/20 13:07 17:51 WBC RBC Hgb Hct MCV MCH MCHC RDW Plt Count Sodium Potassium Chloride Carbon Dioxide Anion Gap BUN Creatinine Est GFR ( Amer) Est GFR (MDRD) Non-Af Glucose POC Glucose 232 H 179 H Calcium Phosphorus Magnesium Albumin IMPRESSION/RECOMMENDATION: 1. Acute hypercapnic respiratory failure. Patient intubated. 2. Hypotension: This is resolved. The patient's blood pressure is now stable without pressors. In view of the patient being on steroids would recommend continue maintenance dose of 2 steroids and also fludrocortisone. We will leave this to the senior mechanical estimator. 3. End-stage renal disease on hemodialysis. 4. Possible osteomyelitis of the right foot. Recommend antibiotics. 5. Ischemic cardiomyopathy with moderately reduced LV ejection fraction. 6. Coronary artery disease, patient's troponin is elevated but this may be secondary to supply demand mismatch rather than [place] the cause is being hypotension, respiratory failure and renal failure. 7. Diabetes mellitus: Continue high-level antidiabetic treatment. 8. History of prior CVA. 9. 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 Is there is also causing respiratory muscle weakness causing hypoventilation versus central sleep apnea. Will recommend a trial dose of modanafinil. Medications reviewed. Medical regimen management plan discussed with the senior mechanical estimator. Medical decision making is of moderate complexity. 40 minutes spent as patient more than 50% of time spent in direct patient care. Will follow.
[2020-07-21] MEDS: ACETAMINOPHEN SOLN 325 MG/10.15 ML UDCUP NG PRN (21:45)
[2020-07-21] MEDS: LATANOPROST 0.005% OPH SOLN 2.5 ML OU SCH (21:47)
[2020-07-21 23:33] LABS: HEMATOCRIT 33.2 % (37.9-51.0); HEMOGLOBIN 11.3 g/dL (13.5-17.0); MEAN CORPUSCULAR HEMOGLOBIN 29.3 pg (27.0-33.4); MEAN CORPUSCULAR HGB CONC 34.2 g/dL (32.0-36.0); MEAN CORPUSCULAR VOLUME 86 fl (80-97); PLATELET COUNT 112 10^3/uL (150-450); RED BLOOD COUNT 3.87 10^6/uL (4.35-5.55); WHITE BLOOD COUNT 9.4 10^3/uL (4.0-10.5)
[2020-07-21 23:49] LABS: ALBUMIN 3.1 g/dL (3.5-5.0); ANION GAP 14 (5-19); BLOOD UREA NITROGEN 51 mg/dL (7-20); CALCIUM 8.9 mg/dL (8.4-10.2); CARBON DIOXIDE 21 mmol/L (22-30); CHLORIDE 99 mmol/L (98-107); GLUCOSE 251 mg/dL (75-110); PHOSPHORUS 1.3 mg/dL (2.5-4.5)
[2020-07-21 23:56] LABS: POTASSIUM 2.8 mmol/L (3.6-5.0)
[2020-07-22] MEDS: INSULIN REG, HUMAN 100 UNIT/ML 3 ML VIAL (PYX) SUBCUT SCH ×4 (00:15→17:20)
[2020-07-22] MEDS: POTASSI CL 20 MEQ/50 ML RIDER 20 MEQ/50 ML RTUPB IV SCH ×2 (00:15→02:15)
[2020-07-22] MEDS: ALBUTEROL SULFATE 0.083% NEB 2.5 MG/3 ML AMPUL NEB SCH ×4 (01:57→20:15)
[2020-07-22] MEDS ORDERED: ONDANSETRON HCL INJ/PF 4 MG/2 ML SDV ONE (05:34)
[2020-07-22] MEDS: HEPARIN SOD (PORCINE) 5,000 UNIT/ML 1 ML VIAL SUBCUT SCH ×3 (06:00→22:57)
[2020-07-22 06:09] LABS: ANION GAP 14 (5-19); BLOOD UREA NITROGEN 53 mg/dL (7-20); CALCIUM 9.2 mg/dL (8.4-10.2); CARBON DIOXIDE 22 mmol/L (22-30); CHLORIDE 102 mmol/L (98-107); GLUCOSE 125 mg/dL (75-110); POTASSIUM 3.2 mmol/L (3.6-5.0)
--- NOTE | 2020-07-22 09:38 | PDOC CRITICAL CARE PROG REPORT ---
General Date:: 07/22/20 ICU Day:: 5 Ventilator Day:: 5 Hospital Day:: 12 Resuscitation Status: Full Code Events in the past 12 to 24 Hours:: A bit more agitation but no purposeful movement. Review of systems relevant to events:: Neurological Reason for ICU Addmission:: Intubated and not responsive. - Medications: Medications reviewed and adjusted accordingly: Yes Vasopressors:: None Sedation:: None Physical Exam Vital Signs: Temp Pulse Resp BP Pulse Ox 98 F 77 14 148/86 H 100 07/22/20 08:00 07/22/20 08:18 07/22/20 08:18 07/22/20 08:00 07/22/20 08:18 Intake & Output 07/21/20 07/22/20 07/23/20 06:59 06:59 06:59 Intake Total 640 600 Output Total 900 950 0 Balance -260 -350 0 Weight 61.9 kg 62.9 kg Weight/Height Weight 62.9 kg Height 5 ft 7 in General appearance: PRESENT: no acute distress, thin Head exam: PRESENT: atraumatic, normocephalic Eye exam: PRESENT: conjunctiva pink, EOMI, PERRLA. ABSENT: scleral icterus Ear exam: PRESENT: normal external ear exam Mouth exam: PRESENT: moist, tongue midline Respiratory exam: PRESENT: clear to auscultation jolie. ABSENT: rales, rhonchi, wheezes Cardiovascular exam: PRESENT: RRR. ABSENT: diastolic murmur, rubs, systolic murmur GI/Abdominal exam: PRESENT: normal bowel sounds, soft. ABSENT: distended, guarding, mass, organolmegaly, rebound, tenderness Rectal exam: PRESENT: deferred Gentrourinary exam: PRESENT: indwelling catheter Extremities exam: PRESENT: full ROM, other - Both feet have blackened toes, mild swelling.. ABSENT: calf tenderness, clubbing, pedal edema Neurological exam: PRESENT: altered, CN II-XII grossly intact, other - Even withot sedation he responds with agitation to stimuli, mostly tactile. No reponse to voice. Skin exam: PRESENT: other - Acrocyanosis of toes. Tubes/Lines: PRESENT: Endotracheal Tube, Central Line, Nasogastic Tube Laboratory/Radiographs Laboratory Results: 07/21/20 23:00 07/22/20 05:00 0907/21/20 07/22/20 23:00 23:00 05:00 WBC 9.4 RBC 3.87 L Hgb 11.3 L Hct 33.2 L MCV 86 MCH 29.3 MCHC 34.2 RDW 17.0 H Plt Count 112 L Sodium 134.3 L 138.1 Potassium 2.8 L* 3.2 L Chloride 99 102 Carbon Dioxide 21 L 22 Anion Gap 14 14 BUN 51 H 53 H Creatinine 3.34 H 3.60 H Est GFR ( Amer) 23 L 21 L Glucose 251 H 125 H Calcium 8.9 9.2 Phosphorus 1.3 L Albumin 3.1 L 07/09/20 07/20/20 07/20/20 11:47 05:00 05:00 Creatine Kinase 25 L Troponin I 0.235 0.232 NT-Pro-B Natriuret Pep [id number] H Impressions: Foot X-Ray 07/10/20 00:00 IMPRESSION: SEVERE DIFFUSE DEMINERALIZATION. CHRONIC CHANGES IN THE 5TH TOE. PROGRESSIVE DESTRUCTION OF THE 2ND TOE. MAY BE DUE TO OSTEOMYELITIS. Head CT 07/10/20 16:23 IMPRESSION: 1. No significant interval changes since the prior examinations dated 07/09/2020, 07/03/2020 and 04/12/2020. No acute intracranial abnormality. 2. Chronic mild small vessel ischemic changes. Stable appearance to the low a ttenuated area in the region of the right hankins radiata. Further evaluation with MRI Brain maybe helpful to exclude acute changes. 3. New finding of a fluid collection within the posterior nasopharynx which lies anterior and adjacent to the adenoids and extends into the oropharynx. Interval placement of endotracheal and nasogastric tube since the previous study dated 07/09/2020. This finding may be on an inflammatory basis, possibly due to reflux. Correlation suggested. EVIDENCE OF ACUTE STROKE: NO Chest X-Ray 07/17/20 12:24 IMPRESSION: SATISFACTORY POSITION OF THE ENDOTRACHEAL TUBE AND NASOGASTRIC TUBE. NO SIGNIFICANT CHANGE IN APPEARANCE OF THE CHEST. All labs, radiographs, diagnostic studies and EKGs were personally reviewed: Yes In addition, reports of radiographic and diagnostic studies were read: Yes Assessment and Plan - Diagnosis (1) Acute respiratory failure Qualifiers: Respiratory failure complication: hypercapnia Qualified Code(s): J96.02 - Acute respiratory failure with hypercapnia Is this a current diagnosis for this admission?: Yes Plan: He cannot protect airway and is significantly weak and failed a PSV trial in a matter of minutes today. (2) ESRD on hemodialysis Is this a current diagnosis for this admission?: Yes Plan: He does not need it today. M/W/F. 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 (4) Peripheral vascular disease Is this a current diagnosis for this admission?: Yes Plan: Chronic and longstanding. (5) Tremor Is this a current diagnosis for this admission?: Yes Plan: Not present today. Plan Summary: Again he needs to be comfort care. His is not ready Critical Time Critical Time (minutes): 35 Level of Care: ICU Anticipated discharge: Hospice Anticipated DC Timeframe: Other -: 1. The care of a critical patient is a dynamic process. This note is a customer care representative synopsis but static in nature. The timeframe for treatments given in order is not necessarily the actual time these treatments may have been done. 2. This patient requires critical care secondary to ongoing requirements for therapy not offered or safe outside the critical care environment. Transfer to a lower level of care will result in altered life or limb morbidity and mortality. 3. Multidisciplinary rounds completed. 4. ABCDE bundle addressed.
[2020-07-22] MEDS: MIDODRINE HCL 5 MG TABLET NG SCH ×2 (09:53→13:48)
[2020-07-22] MEDS: DOCUSATE SODIUM 100 MG/10 ML UDC NG SCH (09:53)
[2020-07-22] MEDS: COLCHICINE 0.6 MG TABLET NG SCH ×2 (09:53→17:21)
[2020-07-22] MEDS: CEFEPIME 1 GM/D5W RTU 1 GM/50 ML RTUPB IV SCH ×2 (09:54→22:58)
[2020-07-22] MEDS: POTASSIUM CHLORIDE 20 MEQ PACKET NG SCH (09:54)
[2020-07-22] MEDS: FAMOTIDINE INJ/PF 20 MG/2 ML SDV IV SCH (09:54)
[2020-07-22] MEDS: HYDROCORTISONE SOD SUCCINATE INJ/PF 100 MG/2 ML SDV IV SCH ×2 (09:54→22:57)
--- NOTE | 2020-07-22 12:23 | Progress Note ---
Provider Note Provider Note: CARDIOLOGY PROGRESS NOTE by Dr. Samia Roper on 07/22/2020. SUBJECTIVE: Patient remains status quo. 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 There is no ventricular is missing on the monitor. PHYSICAL EXAMINATION: The patient is emaciated, chronically ill and malnourished malnourished. Selected Entries 07/22/20 07/22/20 09:53 10:00 Heart Rate ( 72 Monitors) Respiratory 15 Rate Positive End 5 Expiratory Pressure Blood Pressure 133/69 H Blood Pressure 90 Mean O2 Sat by Pulse 99 Oximetry Fraction of 25 Inspired Oxygen (FIO2) HEAD: Is atraumatic normocephalic. EYES: Pupils equal reactive to light. ENT is negative. There is right facial droop present. NECK: Supple. There is no JVD. Carotids are equal there is no bruits. Lungs: Fairly clear. Heart S1-S2 is heard there is no S3 gallop. There is no S4 gallop. There is no rub. ABDOMEN: Soft nontender. There is no hepatosplenomegaly. Bowel sounds well heard. EXTREMITIES: Femorals are diminished. Leg pulses are diminished. There is no pedal edema there is wasting of the muscles of the lower xtremities. BRAZER CONTROLLED ATMOSPHERIC FURNACE and psychiatric exam not performed due to recurrent patient status. Labs- All tests 24 hr 07/21/20 07/21/20 07/21/20 13:07 17:51 23:00 WBC 9.4 RBC 3.87 L Hgb 11.3 L Hct 33.2 L MCV 86 MCH 29.3 MCHC 34.2 RDW 17.0 H Plt Count 112 L Sodium Potassium Chloride Carbon Dioxide Anion Gap BUN Creatinine Est GFR ( Amer) Est GFR (MDRD) Non-Af Glucose POC Glucose 232 H 179 H Calcium Phosphorus Albumin 07/21/20 07/22/20 07/22/20 23:00 00:05 05:00 WBC RBC Hgb Hct MCV MCH MCHC RDW Plt Count Sodium 134.3 L 138.1 Potassium 2.8 L* 3.2 L Chloride 99 102 Carbon Dioxide 21 L 22 Anion Gap 14 14 BUN 51 H 53 H Creatinine 3.34 H 3.60 H Est GFR ( Amer) 23 L 21 L Est GFR (MDRD) Non-Af 19 L 17 L Glucose 251 H 125 H POC Glucose 270 H Calcium 8.9 9.2 Phosphorus 1.3 L Albumin 3.1 L 07/22/20 05:02 WBC RBC Hgb Hct MCV MCH MCHC RDW Plt Count Sodium Potassium Chloride Carbon Dioxide Anion Gap BUN Creatinine Est GFR ( Amer) Est GFR (MDRD) Non-Af Glucose POC Glucose 123 H Calcium Phosphorus Albumin Chest X-Ray 07/09/20 13:50 IMPRESSION: Stable enlarged cardiac silhouette, mild bilateral pleural effusions and bibasilar opacities, left greater than right. Head CT 07/09/20 14:42 IMPRESSION: 1. No significant interval changes since the prior examination dated 07/03/2020. No acute intracranial abnormality. 2. Chronic small vessel ischemic changes changes and mild atrophy. 3. Additional stable findings as above. EVIDENCE OF ACUTE STROKE: NO Foot X-Ray 07/10/20 00:00 IMPRESSION: SEVERE DIFFUSE DEMINERALIZATION. CHRONIC CHANGES IN THE 5TH TOE. PROGRESSIVE DESTRUCTION OF THE 2ND TOE. MAY BE DUE TO OSTEOMYELITIS. Chest X-Ray 07/10/20 16:17 IMPRESSION: 1. Interval placement of endotracheal tube, tip is approximately 3.4 cm proximal to the joselito. Nasogastric tube with the tip overlying the body of the stomach. No evidence of pneumothorax. 2. Lies, unchanged finding since the prior study dated 07/09/2020. Head CT 07/10/20 16:23 IMPRESSION: 1. No significant interval changes since the prior examinations dated 07/09/2020, 07/03/2020 and 04/12/2020. No acute intracranial abnormality. 2. Chronic mild small vessel ischemic changes. Stable appearance to the low attenuated area in the region of the right hankins radiata. Further evaluation with MRI Brain maybe helpful to exclude acute changes. 3. New finding of a fluid collection within the posterior nasopharynx which lies anterior and adjacent to the adenoids and extends into the oropharynx. Interval placement of endotracheal and nasogastric tube since the previous study dated 07/09/2020. This finding may be on an inflammatory basis, possibly due to reflux. Correlation suggested. EVIDENCE OF ACUTE STROKE: NO Chest X-Ray 07/13/20 00:00 IMPRESSION: The enteric tube is malpositioned and its tip projects at the level of the joselito within the thoracic esophagus. Otherwise unchanged radiographic appearance of the chest. Chest X-Ray 07/15/20 00:00 IMPRESSION: Repositioning of the enteric tube with the tip now projecting over the left upper quadrant. Otherwise, stable examination. Chest X-Ray 07/17/20 00:00 IMPRESSION: NO SIGNIFICANT CHANGE IN APPEARANCE OF THE CHEST. Chest X-Ray 07/17/20 12:24 IMPRESSION: SATISFACTORY POSITION OF THE ENDOTRACHEAL TUBE AND NASOGASTRIC TUBE. NO SIGNIFICANT CHANGE IN APPEARANCE OF THE CHEST. IMPRESSION/RECOMMENDATION: 1. Acute hypercapnic respiratory failure. Patient intubated. 2. Hypotension: This is resolved. The patient's blood pressure is now stable without pressors. In view of the patient being on steroids would recommend continue maintenance dose of 2 steroids and also fludrocortisone. We will leave this to the biodiesel engine specialist. 3. End-stage renal disease on hemodialysis. 4. Possible osteomyelitis of the right foot. Recommend antibiotics. 5. Ischemic cardiomyopathy with moderately reduced LV ejection fraction. 6. Coronary artery disease, patient's troponin is elevated but this may be secondary to supply demand mismatch rather than [place] the cause is being hypotension, respiratory failure and renal failure. 7. Diabetes mellitus: Continue high-level antidiabetic treatment. 8. History of prior CVA. 9. 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 Is there is also causing respiratory muscle weakness causing hypoventilation versus central sleep apnea. Will recommend a trial dose of modanafinil. Medications reviewed. Medical regimen management plan discussed with the biodiesel engine specialist. Medical decision making is of moderate complexity. 40 minutes spent as patient more than 50% of time spent in direct patient care. Will follow.
[2020-07-22] MEDS ORDERED: HEPARIN SOD (PORCINE) 1,000 UNIT/ML 1 ML VIAL IV SCH (14:00)
[2020-07-22] MEDS: LATANOPROST 0.005% OPH SOLN 2.5 ML OU SCH (22:59)
[2020-07-22] MEDS: ACETAMINOPHEN SOLN 325 MG/10.15 ML UDCUP NG PRN (22:59)
[2020-07-23] MEDS: ALBUTEROL SULFATE 0.083% NEB 2.5 MG/3 ML AMPUL NEB SCH ×4 (01:49→20:26)
[2020-07-23] MEDS: INSULIN REG, HUMAN 100 UNIT/ML 3 ML VIAL (PYX) SUBCUT SCH ×4 (03:16→17:09)
[2020-07-23 04:37] LABS: HEMATOCRIT 32.9 % (37.9-51.0); HEMOGLOBIN 10.8 g/dL (13.5-17.0); MEAN CORPUSCULAR HEMOGLOBIN 28.3 pg (27.0-33.4); MEAN CORPUSCULAR VOLUME 86 fl (80-97); PLATELET COUNT 101 10^3/uL (150-450); RED BLOOD COUNT 3.83 10^6/uL (4.35-5.55); RED CELL DISTRIBUTION WIDTH 16.9 % (11.5-14.0); WHITE BLOOD COUNT 13.8 10^3/uL (4.0-10.5)
--- NOTE | 2020-07-23 04:37 | RADIOLOGY REPORT (SQ) ---
CLINICAL HISTORY: Respiratory failure COMPARISON: 07/17/2020. TECHNIQUE: XR CHEST 1 VIEW 07/23/2020 12:00 AM CDT FINDINGS: The heart is enlarged. Sternotomy and CABG were performed. There is left basilar airspace disease. There is a probable left pleural effusion. There is no pneumothorax. There are no acute osseous findings. Left and right central lines as well as the endotracheal and nasogastric tubes are unchanged. IMPRESSION: No change.
[2020-07-23] MEDS ORDERED: HEPARIN SOD (PORCINE) 1,000 UNIT/ML 10 ML VIAL IV PRN (05:00)
[2020-07-23] MEDS ORDERED: NORMAL SALINE 1000 ML 1,000 ML IV PRN (05:00)
[2020-07-23 05:07] LABS: ANION GAP 14 (5-19); BLOOD UREA NITROGEN 63 mg/dL (7-20); CALCIUM 9.1 mg/dL (8.4-10.2); CARBON DIOXIDE 20 mmol/L (22-30); CHLORIDE 102 mmol/L (98-107); GLUCOSE 214 mg/dL (75-110)
[2020-07-23] MEDS: HEPARIN SOD (PORCINE) 5,000 UNIT/ML 1 ML VIAL SUBCUT SCH ×3 (06:37→21:35)
[2020-07-23] MEDS: CEFEPIME 1 GM/D5W RTU 1 GM/50 ML RTUPB IV SCH (09:11)
[2020-07-23] MEDS: POTASSIUM CHLORIDE 20 MEQ PACKET NG SCH (09:11)
[2020-07-23] MEDS: FAMOTIDINE INJ/PF 20 MG/2 ML SDV IV SCH (09:11)
[2020-07-23] MEDS: COLCHICINE 0.6 MG TABLET NG SCH ×2 (09:11→17:10)
[2020-07-23] MEDS: HYDROCORTISONE SOD SUCCINATE INJ/PF 100 MG/2 ML SDV IV SCH (09:11)
[2020-07-23] MEDS: DOCUSATE SODIUM 100 MG/10 ML UDC NG SCH (09:11)
[2020-07-23 10:21] LABS: C DIFFICILE GDH POSITIVE (NEGATIVE)
[2020-07-23] MEDS: PROPOFOL 1,000 MG/100 ML INFUS..BTL IV PRN ×2 (11:35→18:36)
[2020-07-23] MEDS: METHYLPREDNISOLONE INJ 125 MG/2 ML SDV IV SCH ×2 (11:36→17:10)
[2020-07-23 11:38] LABS: ARTERIAL BLOOD BASE EXCESS -4.3 mmol/L; ARTERIAL BLOOD H2CO3 0.94 mmol/L (1.05-1.35); ARTERIAL BLOOD HCO3 19.4 mmol/L (20-24); ARTERIAL BLOOD O2 SATURATION 97.7 % (94-98); ARTERIAL BLOOD PCO2 31.1 mmHg (35-45); ARTERIAL BLOOD PH 7.41 (7.35-7.45); ARTERIAL BLOOD PO2 100.4 mmHg (80-100); ARTERIAL BLOOD TOTAL CO2 20.4 mmol/L (23-27)
[2020-07-23 11:41] LABS: ARTERIAL BLOOD FIO2 25%
--- NOTE | 2020-07-23 12:05 | Progress Note ---
Provider Note Provider Note: CARDIOLOGY PROGRESS NOTE by Dr. Samia Roper on 07/23/2020. SUBJECTIVE: Patient remains status quo. 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 There is no ventricular is missing on the monitor. The patient underwent uneventful hemodialysis, although not much fluid with his who could be removed due to the patient's tenuous blood pressure. PHYSICAL EXAMINATION: The patient is emaciated, chronically ill and malnourished malnourished. Selected Entries 07/23/20 07/23/20 16:00 18:00 Temperature 97.6 F Temperature Axillary Source Pulse Rate 60 Respiratory 14 Rate Blood Pressure 146/86 H [Upper Arm] Blood Pressure 106 Mean [Upper Arm ] Blood Pressure Supine Position [Upper Arm] O2 Sat by Pulse 100 Oximetry Oxygen Delivery Mechanical Method ( Ventilator includes room air) Fraction of 25 Inspired Oxygen (FIO2) HEAD: Is atraumatic normocephalic. EYES: Pupils equal reactive to light. ENT is negative. There is right facial droop present. NECK: Supple. There is no JVD. Carotids are equal there is no bruits. Lungs: Fairly clear. Heart S1-S2 is heard there is no S3 gallop. There is no S4 gallop. There is no rub. ABDOMEN: Soft nontender. There is no hepatosplenomegaly. Bowel sounds well heard. EXTREMITIES: Femorals are diminished. Leg pulses are diminished. There is no pedal edema there is wasting of the muscles of the lower xtremities. STUDENT SUCCESS ADVISOR and psychiatric exam not performed due to recurrent patient status. Labs- All tests 24 hr 07/23/20 07/23/20 07/23/20 04:00 04:00 04:00 WBC 13.8 H RBC 3.83 L Hgb 10.8 L Hct 32.9 L MCV 86 MCH 28.3 MCHC 33.0 RDW 16.9 H Plt Count 101 L Carbonic Acid HCO3/H2CO3 Ratio ABG pH ABG pCO2 ABG pO2 ABG HCO3 ABG Total CO2 ABG O2 Saturation ABG Base Excess FiO2 Sodium 136.0 L Potassium 4.0 Chloride 102 Carbon Dioxide 20 L Anion Gap 14 BUN 63 H Creatinine 3.79 H Est GFR ( Amer) 20 L Est GFR (MDRD) Non-Af 16 L Glucose 214 H POC Glucose Calcium 9.1 Magnesium Triglycerides Stl C. Difficile GDH Ag POSITIVE Stl C.difficile Tox A&B NEGATIVE Stl C.difficile Tox PCR NEGATIVE 07/23/20 07/23/20 07/23/20 04:00 04:00 11:20 WBC RBC Hgb Hct MCV MCH MCHC RDW Plt Count Carbonic Acid 0.94 L HCO3/H2CO3 Ratio 20:1 ABG pH 7.41 ABG pCO2 31.1 L ABG pO2 100.4 H ABG HCO3 19.4 L ABG Total CO2 20.4 L ABG O2 Saturation 97.7 ABG Base Excess -4.3 FiO2 25% Sodium Potassium Chloride Carbon Dioxide Anion Gap BUN Creatinine Est GFR ( Amer) Est GFR (MDRD) Non-Af Glucose POC Glucose Calcium Magnesium 1.7 Triglycerides 109 Stl C. Difficile GDH Ag Stl C.difficile Tox A&B Stl C.difficile Tox PCR 07/23/20 07/23/20 12:21 17:07 WBC RBC Hgb Hct MCV MCH MCHC RDW Plt Count Carbonic Acid HCO3/H2CO3 Ratio ABG pH ABG pCO2 ABG pO2 ABG HCO3 ABG Total CO2 ABG O2 Saturation ABG Base Excess FiO2 Sodium Potassium Chloride Carbon Dioxide Anion Gap BUN Creatinine Est GFR ( Amer) Est GFR (MDRD) Non-Af Glucose POC Glucose 94 128 H Calcium Magnesium Triglycerides Stl C. Difficile GDH Ag Stl C.difficile Tox A&B Stl C.difficile Tox PCR Chest X-Ray 07/09/20 13:50 IMPRESSION: Stable enlarged cardiac silhouette, mild bilateral pleural effusions and bibasilar opacities, left greater than right. Head CT 07/09/20 14:42 IMPRESSION: 1. No significant interval changes since the prior examination dated 07/03/2020. No acute intracranial abnormality. 2. Chronic small vessel ischemic changes changes and mild atrophy. 3. Additional stable findings as above. EVIDENCE OF ACUTE STROKE: NO Foot X-Ray 07/10/20 00:00 IMPRESSION: SEVERE DIFFUSE DEMINERALIZATION. CHRONIC CHANGES IN THE 5TH TOE. PROGRESSIVE DESTRUCTION OF THE 2ND TOE. MAY BE DUE TO OSTEOMYELITIS. Chest X-Ray 07/10/20 16:17 IMPRESSION: 1. Interval placement of endotracheal tube, tip is approximately 3.4 cm proximal to the joselito. Nasogastric tube with the tip overlying the body of the stomach. No evidence of pneumothorax. 2. Lies, unchanged finding since the prior study dated 07/09/2020. Head CT 07/10/20 16:23 IMPRESSION: 1. No significant interval changes since the prior examinations dated 07/09/2020, 07/03/2020 and 04/12/2020. No acute intracranial abnormality. 2. Chronic mild small vessel ischemic changes. Stable appearance to the low attenuated area in the region of the right hankins radiata. Further evaluation with MRI Brain maybe helpful to exclude acute changes. 3. New finding of a fluid collection within the posterior nasopharynx which lies anterior and adjacent to the adenoids and extends into the oropharynx. Interval placement of endotracheal and nasogastric tube since the previous study dated 07/09/2020. This finding may be on an inflammatory basis, possibly due to reflux. Correlation suggested. EVIDENCE OF ACUTE STROKE: NO Chest X-Ray 07/13/20 00:00 IMPRESSION: The enteric tube is malpositioned and its tip projects at the level of the joselito within the thoracic esophagus. Otherwise unchanged radiographic appearance of the chest. Chest X-Ray 07/15/20 00:00 IMPRESSION: Repositioning of the enteric tube with the tip now projecting over the left upper quadrant. Otherwise, stable examination. Chest X-Ray 07/17/20 00:00 IMPRESSION: NO SIGNIFICANT CHANGE IN APPEARANCE OF THE CHEST. Chest X-Ray 07/17/20 12:24 IMPRESSION: SATISFACTORY POSITION OF THE ENDOTRACHEAL TUBE AND NASOGASTRIC TUBE. NO SIGNIFICANT CHANGE IN APPEARANCE OF THE CHEST. Chest X-Ray 07/23/20 00:00 IMPRESSION: No change. IMPRESSION/RECOMMENDATION: 1. Acute hypercapnic respiratory failure. Patient intubated. 2. Hypotension: This is resolved. The patient's blood pressure is now stable without pressors. In view of the patient being on steroids would recommend continue maintenance dose of 2 steroids and also fludrocortisone. We will leave this to the dietary aid. 3. End-stage renal disease on hemodialysis. 4. Possible osteomyelitis of the right foot. Recommend antibiotics. 5. Ischemic cardiomyopathy with moderately reduced LV ejection fraction. 6. Coronary artery disease, patient's troponin is elevated but this may be secondary to supply demand mismatch rather than [place] the cause is being hypotension, respiratory failure and renal failure. 7. Diabetes mellitus: Continue high-level antidiabetic treatment. 8. History of prior CVA. 9. 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 Is there is also causing respiratory muscle weakness causing hypoventilation versus central sleep apnea. Will recommend a trial dose of modanafinil. Medications reviewed. Medical regimen management plan discussed with the dietary aid. Medical decision making is of moderate complexity. 40 minutes spent as patient more than 50% of time spent in direct patient care. Will follow.
--- NOTE | 2020-07-23 14:30 | PDOC PROGRESS REPORT ---
Subjective Progress Note for:: 07/23/20 Reason For Visit: Patient still remains in the ICU intubated though not so sedated. He is currently undergoing dialysis but fluid removal is difficult given his tenuous blood pressure. Patient has got some generalized tremors and head smacking. His labs and medications were reviewed. Dialysis orders were reviewed with the treating dialysis nurse. Discussions were done with the treating nurse as well as the explosive technician. Physical Exam Vital Signs: Temp Pulse Resp BP Pulse Ox 97.3 F 71 14 128/62 H 100 07/23/20 12:00 07/23/20 14:00 07/23/20 14:00 07/23/20 14:00 07/23/20 14:00 Intake & Output 07/22/20 07/23/20 07/24/20 06:59 06:59 06:59 Intake Total 452 908 5795 Output Total 640 344 3712 Balance -350 -400 67 Weight 62.9 kg 68 kg 68 kg Exam: Remains intubated. He has got some intermittent tremors and head smacking. Respiratory exam: PRESENT: clear to auscultation jolie. ABSENT: crackles Cardiovascular exam: PRESENT: +S1, +S2 GI/Abdominal exam: PRESENT: normal bowel sounds, soft. ABSENT: organomegaly, tenderness Extremities exam: PRESENT: pedal edema Results Laboratory Results: 07/23/20 04:00 07/23/20 04:00 07/23/20 07/23/20 07/23/20 04:00 04:00 04:00 WBC 13.8 H RBC 3.83 L Hgb 10.8 L Hct 32.9 L MCV 86 MCH 28.3 MCHC 33.0 RDW 16.9 H Plt Count 101 L Carbonic Acid HCO3/H2CO3 Ratio ABG pH ABG pCO2 ABG pO2 ABG HCO3 ABG O2 Saturation ABG Base Excess FiO2 Sodium 136.0 L Potassium 4.0 Chloride 102 Carbon Dioxide 20 L Anion Gap 14 BUN 63 H Creatinine 3.79 H Est GFR ( Amer) 20 L Glucose 214 H Calcium 9.1 Magnesium Triglycerides Stl C.difficile Tox PCR NEGATIVE 07/23/20 07/23/20 07/23/20 04:00 04:00 11:20 WBC RBC Hgb Hct MCV MCH MCHC RDW Plt Count Carbonic Acid 0.94 L HCO3/H2CO3 Ratio 20:1 ABG pH 7.41 ABG pCO2 31.1 L ABG pO2 100.4 H ABG HCO3 19.4 L ABG O2 Saturation 97.7 ABG Base Excess -4.3 FiO2 25% Sodium Potassium Chloride Carbon Dioxide Anion Gap BUN Creatinine Est GFR ( Amer) Glucose Calcium Magnesium 1.7 Triglycerides 109 Stl C.difficile Tox PCR 07/09/20 07/20/20 07/20/20 11:47 05:00 05:00 Creatine Kinase 25 L Troponin I 0.235 0.232 NT-Pro-B Natriuret Pep [id number] H Impressions: Foot X-Ray 07/10/20 00:00 IMPRESSION: SEVERE DIFFUSE DEMINERALIZATION. CHRONIC CHANGES IN THE 5TH TOE. PROGRESSIVE DESTRUCTION OF THE 2ND TOE. MAY BE DUE TO OSTEOMYELITIS. Head CT 07/10/20 16:23 IMPRESSION: 1. No significant interval changes since the prior examinations dated 07/09/2020, 07/03/2020 and 04/12/2020. No acute intracranial abnormality. 2. Chronic mild small vessel ischemic changes. Stable appearance to the low attenuated area in the region of the right hankins radiata. Further evaluation with MRI Brain maybe helpful to exclude acute changes. 3. New finding of a fluid collection within the posterior nasopharynx which lies anterior and adjacent to the adenoids and extends into the oropharynx. Interval placement of endotracheal and nasogastric tube since the previous study dated 07/09/2020. This finding may be on an inflammatory basis, possibly due to reflux. Correlation suggested. EVIDENCE OF ACUTE STROKE: NO Chest X-Ray 07/23/20 00:00 IMPRESSION: No change. Assessment & Plan - Diagnosis (1) ESRD on hemodialysis Is this a current diagnosis for this admission?: Yes Plan: Patient currently undergoing dialysis. He is currently off all pressors and blood pressure looks relatively stable prior to dialysis but then he drops while undergoing dialysis and fluid removal becomes rather difficult. Dialysis orders were reviewed with treating dialysis nurse. This patient is extremely critical and given his multiple complex comorbidities he has a guarded prognosis. (2) Hypotension Qualifiers: Hypotension type: idiopathic hypotension Qualified Code(s): I95.0 - Idiopathic hypotension Is this a current diagnosis for this admission?: Yes Plan: Currently off pressors and remains electively stable. However he drops when we put him on dialysis and tried to extract fluid. (3) Acute respiratory failure Qualifiers: Respiratory failure complication: hypercapnia Qualified Code(s): J96.02 - Acute respiratory failure with hypercapnia Is this a current diagnosis for this admission?: Yes Plan: Hypercarbic respiratory failure. Differential diagnosis for this includes generalized debility on top of Guillain-Ventura/bilateral pleural effusions/occult consolidation/Possible aspiration/acute on chronic CHF.Currently intubated and sedated. (4) Axonal GBS (Guillain-Henniker syndrome) Is this a current diagnosis for this admission?: Yes Plan: Status quo with residual deficits and parapaplegia. (5) Diabetes mellitus, type II Qualifiers: Diabetes mellitus terminal computer operator insulin use: without terminal computer operator use Is this a current diagnosis for this admission?: Yes Plan: As per explosive technician. (6) History of Clostridium difficile infection Plan: Status quo. Patient usually goes into developing c.diff once he is being treated with antibiotics for other infections. Monitor for resurgence of this. 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 (8) Peripheral vascular disease Is this a current diagnosis for this admission?: Yes Plan: Development of early gangrene of his toes with history of osteomyelitis in the past. (9) Recurrent urinary tract infection Plan: Monitor for this. If his white count especially is going high he might need to have an ED catheter to test his urine for possible infections.
--- NOTE | 2020-07-23 17:47 | PDOC CRITICAL CARE PROG REPORT ---
General Date:: 07/23/20 ICU Day:: 6 Ventilator Day:: 6 Hospital Day:: 14 Resuscitation Status: Full Code Events in the past 12 to 24 Hours:: This 64-year-old -Citizen Of [place] male was originally admitted on 06/19/2020 with altered mental status. His reported that he had been demonstrating confusion for at least a couple of days prior to presentation. In addition, he presented with hypotension. He was admitted for further evaluation of possible sepsis. He was admitted to IMCU but transferred within 24 hours to the ICU after he became obtunded. pH 6.9, PCO2 130. He was intubated in the ICU. He subsequently improved and transferred out only to return about a day later (07/17/2020) again with hypotension and acute hypercapnic respiratory failure. He is an end-stage renal disease patient on hemodialysis and has a history of Guillain-Ventura syndrome. 07/23: Awake. Does not clearly follow commands. He demonstrates rhythmic movements, which are most notable involving the face (right-sided) and right arm. Remains intubated. Off sedation. Nurse reports that he continues to have copious amounts of watery diarrhea. Discussed with Dr. Tavares (nephrology). Review of systems relevant to events:: Neurological Reason for ICU Addmission:: Intubated and not responsive. - Medications: Medications reviewed and adjusted accordingly: Yes Sedation:: None Physical Exam Vital Signs: Temp Pulse Resp BP Pulse Ox 97.8 F 82 16 122/72 100 07/23/20 03:45 07/23/20 08:25 07/23/20 08:25 07/23/20 08:19 07/23/20 08:25 Intake & Output 07/22/20 07/23/20 07/24/20 06:59 06:59 06:59 Intake Total 600 100 Output Total 950 500 0 Balance -350 -400 0 Weight 62.9 kg 68 kg Weight/Height Weight 68 kg Height 1.7 m General appearance: PRESENT: no acute distress, thin Head exam: PRESENT: atraumatic, normocephalic Eye exam: PRESENT: conjunctiva pink, EOMI, PERRLA. ABSENT: scleral icterus Mouth exam: PRESENT: dry mucosa Neck exam: ABSENT: carotid bruit, JVD, lymphadenopathy, thyromegaly Respiratory exam: PRESENT: rales, rhonchi. ABSENT: wheezes Cardiovascular exam: PRESENT: RRR. ABSENT: diastolic murmur, rubs, systolic murmur GI/Abdominal exam: PRESENT: normal bowel sounds, soft. ABSENT: distended, guarding, mass, organolmegaly, rebound, tenderness Extremities exam: PRESENT: full ROM. ABSENT: calf tenderness, clubbing, pedal edema Musculoskeletal exam: PRESENT: other - Ischemic/necrotic toes Neurological exam: PRESENT: awake, CN II-XII grossly intact, motor sensory deficit - Demonstrates rhythmic movement of the right upper extremity. Able to move the left upper extremity minimally (2/5). Bilateral lower extremity paralysis. Pain sensation intact in all 4 extremities., other - Shows rhythmic movements primarily involving the face and right upper extremity. ABSENT: reflexes normal Skin exam: PRESENT: dry, intact, warm. ABSENT: cyanosis, rash Tubes/Lines: PRESENT: Endotracheal Tube, Central Line - Left subclavian, Dialysis catheter Laboratory/Radiographs Laboratory Results: 07/23/20 04:00 07/23/20 04:00 07/23/20 07/23/20 04:00 04:00 WBC 13.8 H RBC 3.83 L Hgb 10.8 L Hct 32.9 L MCV 86 MCH 28.3 MCHC 33.0 RDW 16.9 H Plt Count 101 L Sodium 136.0 L Potassium 4.0 Chloride 102 Carbon Dioxide 20 L Anion Gap 14 BUN 63 H Creatinine 3.79 H Est GFR ( Amer) 20 L Glucose 214 H Calcium 9.1 07/09/20 07/20/20 07/20/20 11:47 05:00 05:00 Creatine Kinase 25 L Troponin I 0.235 0.232 NT-Pro-B Natriuret Pep [id number] H Impressions: Foot X-Ray 07/10/20 00:00 IMPRESSION: SEVERE DIFFUSE DEMINERALIZATION. CHRONIC CHANGES IN THE 5TH TOE. PROGRESSIVE DESTRUCTION OF THE 2ND TOE. MAY BE DUE TO OSTEOMYELITIS. Head CT 07/10/20 16:23 IMPRESSION: 1. No significant interval changes since the prior examinations dated 07/09/2020, 07/03/2020 and 04/12/2020. No acute intracranial abnormality. 2. Chronic mild small vessel ischemic changes. Stable appearance to the low attenuated area in the region of the right hankins radiata. Further evaluation with MRI Brain maybe helpful to exclude acute changes. 3. New finding of a fluid collection within the posterior nasopharynx which lies anterior and adjacent to the adenoids and extends into the oropharynx. Interval placement of endotracheal and nasogastric tube since the previous study dated 07/09/2020. This finding may be on an inflammatory basis, possibly due to reflux. Correlation suggested. EVIDENCE OF ACUTE STROKE: NO Chest X-Ray 07/23/20 00:00 IMPRESSION: No change. All labs, radiographs, diagnostic studies and EKGs were personally reviewed: Yes In addition, reports of radiographic and diagnostic studies were read: Yes Assessment and Plan - Diagnosis (1) Endotracheally intubated Is this a current diagnosis for this admission?: Yes Plan: He remains intubated. Check ABG. 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 This is likely presenting an obstacle to his liberation from mechanical ventilatory support. In addition, the movement disorder which he demonstrates may also be hindering efforts to liberate him from mechanical ventilatory support. We need to rule out seizure versus tremor. Also, start systemic glucocorticoid therapy. (2) Thrombocytopenia Is this a current diagnosis for this admission?: Yes Plan: Monitor platelets. (3) Leukocytosis Is this a current diagnosis for this admission?: Yes Plan: Trach aspirate (07/13) isolated E. coli. 1 of 2 blood cultures isolated S. aureus (MSSA, 07/09). Repeat blood cultures and trach aspirate. Currently, on cefepime. Of note, sensitivity profile reveals that both organisms are sensitive to tetracyclines. Stop cefepime. Start doxycycline 100 mg NG twice daily. Of note, the patient has had continued systemic steroid exposure during this time. C. difficile toxin assay pending. (4) COVID-19 ruled out by laboratory testing Is this a current diagnosis for this admission?: Yes (5) Anemia in chronic kidney disease (CKD) Qualifiers: Chronic kidney disease stage: on chronic dialysis Qualified Code(s): N18.6 - End stage renal disease; D63.1 - Anemia in chronic kidney disease; Z99.2 - Dependence on renal dialysis Is this a current diagnosis for this admission?: Yes (6) Axonal GBS (Guillain-Wirt syndrome) Is this a current diagnosis for this admission?: Yes Plan: Based on available clinical history, it appears that this patient has a history of Guillain-Ventura syndrome which appears to have progressed to chronic inflammatory demyelinating polyneuropathy. He has been on Solu-Cortef during his hospitalization; however this dosing is not sufficient to cover for treatment of AIDP or CIDP. Solu-Medrol 60 mg IV every 6 hours x4 doses followed by 60 mg daily (do not decrease until sign of clinical benefit). Contributing to his baseline weakness, which is wheelchair bound according to . (7) End stage renal disease Is this a current diagnosis for this admission?: Yes Plan: Hemodilayisis per Nephrology. (8) Hypokalemia Is this a current diagnosis for this admission?: Yes Plan: We will likely due to excessive gastrointestinal loss. Check magnesium. Replete potassium. Critical Time Critical Time (minutes): 60 Level of Care: ICU -: 1. The care of a critical patient is a dynamic process. This note is a clearance representative synopsis but static in nature. The timeframe for treatments given in order is not necessarily the actual time these treatments may have been done. 2. This patient requires critical care secondary to ongoing requirements for therapy not offered or safe outside the critical care environment. Transfer to a lower level of care will result in altered life or limb morbidity and mortality. 3. Multidisciplinary rounds completed. 4. ABCDE bundle addressed.
[2020-07-23] MEDS: LATANOPROST 0.005% OPH SOLN 2.5 ML OU SCH (22:33)
[2020-07-24] MEDS: INSULIN REG, HUMAN 100 UNIT/ML 3 ML VIAL (PYX) SUBCUT SCH ×5 (00:10→23:58)
[2020-07-24] MEDS: METHYLPREDNISOLONE INJ 125 MG/2 ML SDV IV SCH ×2 (00:10→05:25)
[2020-07-24] MEDS: ALBUTEROL SULFATE 0.083% NEB 2.5 MG/3 ML AMPUL NEB SCH ×4 (02:08→19:59)
[2020-07-24] MEDS: PROPOFOL 1,000 MG/100 ML INFUS..BTL IV PRN ×3 (03:10→17:58)
[2020-07-24 04:49] LABS: ARTERIAL BLOOD BASE EXCESS -1.7 mmol/L; ARTERIAL BLOOD H2CO3 0.92 mmol/L (1.05-1.35); ARTERIAL BLOOD HCO3 21.3 mmol/L (20-24); ARTERIAL BLOOD O2 SATURATION 98.1 % (94-98); ARTERIAL BLOOD PCO2 30.6 mmHg (35-45); ARTERIAL BLOOD PH 7.46 (7.35-7.45); ARTERIAL BLOOD PO2 103.7 mmHg (80-100); ARTERIAL BLOOD TOTAL CO2 22.2 mmol/L (23-27)
[2020-07-24 04:50] LABS: ARTERIAL BLOOD FIO2 25%
[2020-07-24 05:08] LABS: ABSOLUTE LYMPHOCYTES (AUTO) 0.6 10^3/uL (0.5-4.7); ABSOLUTE MONOCYTES (AUTO) 0.3 10^3/uL (0.1-1.4); ABSOLUTE NEUT (AUTO) 7.5 10^3/uL (1.7-8.2); BASOPHILS % (AUTO) 0.2 % (0-2); HEMATOCRIT 32.4 % (37.9-51.0); HEMOGLOBIN 11.1 g/dL (13.5-17.0); LYMPHOCYTES % (AUTO) 6.9 % (13-45); MEAN CORPUSCULAR HEMOGLOBIN 29.3 pg (27.0-33.4); MEAN CORPUSCULAR HGB CONC 34.4 g/dL (32.0-36.0); MEAN CORPUSCULAR VOLUME 85 fl (80-97); MONOCYTES % (AUTO) 3.8 % (3-13); RED BLOOD COUNT 3.79 10^6/uL (4.35-5.55); RED CELL DISTRIBUTION WIDTH 16.9 % (11.5-14.0); SEGMENTED NEUTROPHILS % (AUTO) 89.1 % (42-78); TOTAL CELLS COUNTED % (AUTO) 100 %; WHITE BLOOD COUNT 8.5 10^3/uL (4.0-10.5)
[2020-07-24] MEDS: HEPARIN SOD (PORCINE) 5,000 UNIT/ML 1 ML VIAL SUBCUT SCH ×3 (05:25→21:10)
[2020-07-24 05:37] LABS: PLATELET COUNT 83 10^3/uL (150-450)
[2020-07-24 05:39] LABS: ANION GAP 12 (5-19); BLOOD UREA NITROGEN 51 mg/dL (7-20); CALCIUM 8.8 mg/dL (8.4-10.2); CARBON DIOXIDE 23 mmol/L (22-30); CHLORIDE 100 mmol/L (98-107); GLUCOSE 283 mg/dL (75-110); PHOSPHORUS 1.4 mg/dL (2.5-4.5); POTASSIUM 4.2 mmol/L (3.6-5.0)
[2020-07-24] MEDS ORDERED: PHOSPHORUS #1 250 MG TABLET NG ONE (05:57)
--- NOTE | 2020-07-24 08:50 | EKG REPORT ---
SEVERITY:- ABNORMAL ECG - SINUS RHYTHM PROBABLE LEFT ATRIAL ABNORMALITY NONSPECIFIC INTRAVENTRICULAR CONDUCTION DELAY INFERIOR INFARCT, AGE INDETERMINATE LATERAL INFARCT, AGE INDETERMINATE ANTERIOR INFARCT, OLD : Confirmed by: Robert Luis MD 24-Jul-2020 08:49:16
--- NOTE | 2020-07-24 09:38 | RADIOLOGY REPORT (SQ) ---
EXAM DESCRIPTION: CHEST SINGLE VIEW IMAGES COMPLETED DATE/TIME: 07/24/2020 6:55 am REASON FOR STUDY: ETT tube COMPARISON: Previous day. NUMBER OF VIEWS: One view. TECHNIQUE: Single frontal radiographic image of the chest acquired. LIMITATIONS: None. FINDINGS: LUNGS AND PLEURA: Postsurgical changes left lung. Left pleural effusion and associated ai rspace disease not significantly changed. No pneumothorax. MEDIASTINUM AND HEART: Stable heart size and mediastinal structures. SUPPORT DEVICES: Appropriate location without change. BONY STRUCTURES: No acute findings. HARDWARE: None. OTHER: No other significant finding. IMPRESSION: No significant change. No pneumothorax. Reading location - IP/workstation name: [id number]
[2020-07-24] MEDS: FAMOTIDINE INJ/PF 20 MG/2 ML SDV IV SCH (10:04)
[2020-07-24] MEDS: COLCHICINE 0.6 MG TABLET NG SCH ×2 (10:04→18:06)
[2020-07-24] MEDS: POTASSIUM CHLORIDE 20 MEQ PACKET NG SCH (10:04)
[2020-07-24] MEDS: DOCUSATE SODIUM 100 MG/10 ML UDC NG SCH (10:04)
[2020-07-24] MEDS: VANCOMYCIN HCL INJ 500 MG VIAL NG SCH ×3 (11:44→23:58)
[2020-07-24] MEDS: AMINO AC/PROTEIN HYDR/WHEY PRO 11 GM/45 ML PKT NG SCH ×2 (11:45→18:00)
--- NOTE | 2020-07-24 17:36 | PDOC CRITICAL CARE PROG REPORT ---
General Date:: 07/24/20 ICU Day:: 7 Ventilator Day:: 7 Hospital Day:: 15 Resuscitation Status: Full Code Events in the past 12 to 24 Hours:: This 64-year-old -British male was originally admitted on 06/19/2020 with altered mental status. His reported that he had been demonstrating confusion for at least a couple of days prior to presentation. In addition, he presented with hypotension. He was admitted for further evaluation of possible sepsis. He was admitted to IMCU but transferred within 24 hours to the ICU after he became obtunded. pH 6.9, PCO2 130. He was intubated in the ICU. He subsequently improved and transferred out only to return about a day later (07/17/2020) again with hypotension and acute hypercapnic respiratory failure. He is an end-stage renal disease patient on hemodialysis and has a history of Guillain-Ventura syndrome. 07/23: Awake. Does not clearly follow commands. He demonstrates rhythmic movements, which are most notable involving the face (right-sided) and right arm. Remains intubated. Off sedation. Nurse reports that he continues to have copious amounts of watery diarrhea. Discussed with Dr. Tavares (nephrology). 07/24: Resting comfortably on the ventilator. Now on sedation. No longer demonstrating rhythmic contractions. EEG delayed (no x ray service technician available until next week). Phosphorus 1.4. Started today on Solu-Medrol 60 mg IV every 6 hours x4 doses followed by 60 mg IV daily, directed at the patient's AIDP/CIDP. Review of systems relevant to events:: Neurological Reason for ICU Addmission:: Intubated and not responsive. - Medications: Medications reviewed and adjusted accordingly: Yes Physical Exam Vital Signs: Temp Pulse Resp BP Pulse Ox 97.6 F 56 L 14 127/55 H 100 07/24/20 08:00 07/24/20 08:00 07/24/20 08:00 07/24/20 08:00 07/24/20 08:00 Intake & Output 07/23/20 07/24/20 07/25/20 06:59 06:59 06:59 Intake Total 100 1239 Output Total 500 1000 0 Balance -400 239 0 Weight 68 kg 61.9 kg Weight/Height Weight 61.9 kg Height 1.7 m General appearance: PRESENT: no acute distress, thin Head exam: PRESENT: atraumatic, normocephalic Eye exam: PRESENT: conjunctiva pink, EOMI, PERRLA. ABSENT: scleral icterus Mouth exam: PRESENT: moist, tongue midline Neck exam: ABSENT: carotid bruit, JVD, lymphadenopathy, thyromegaly Respiratory exam: PRESENT: clear to auscultation jolie. ABSENT: rales, rhonchi, wheezes Cardiovascular exam: PRESENT: RRR. ABSENT: diastolic murmur, rubs, systolic murmur Pulses: PRESENT: normal dorsalis pedis pul GI/Abdominal exam: PRESENT: normal bowel sounds, soft. ABSENT: distended, guarding, mass, organolmegaly, rebound, tenderness Gentrourinary exam: PRESENT: indwelling catheter Extremities exam: PRESENT: full ROM. ABSENT: calf tenderness, clubbing, pedal edema Musculoskeletal exam: PRESENT: other - Ischemic/necrotic toes Neurological exam: PRESENT: awake, CN II-XII grossly intact, motor sensory deficit - Pain sensation intact x4 extremities.. ABSENT: reflexes normal Tubes/Lines: PRESENT: Endotracheal Tube, Central Line - Left subclavian, D ialysis catheter Laboratory/Radiographs Laboratory Results: 07/24/20 04:52 07/24/20 04:52 07/23/20 07/23/20 07/23/20 04:00 04:00 04:00 WBC RBC Hgb Hct MCV MCH MCHC RDW Plt Count Seg Neutrophils % Carbonic Acid HCO3/H2CO3 Ratio ABG pH ABG pCO2 ABG pO2 ABG HCO3 ABG O2 Saturation ABG Base Excess FiO2 Sodium Potassium Chloride Carbon Dioxide Anion Gap BUN Creatinine Est GFR ( Amer) Glucose Calcium Phosphorus Magnesium 1.7 Triglycerides 109 Stl C.difficile Tox PCR NEGATIVE 07/23/20 07/24/20 07/24/20 11:20 04:25 04:52 WBC RBC Hgb Hct MCV MCH MCHC RDW Plt Count Seg Neutrophils % Carbonic Acid 0.94 L 0.92 L HCO3/H2CO3 Ratio 20:1 23:1 ABG pH 7.41 7.46 H ABG pCO2 31.1 L 30.6 L ABG pO2 100.4 H 103.7 H ABG HCO3 19.4 L 21.3 ABG O2 Saturation 97.7 98.1 H ABG Base Excess -4.3 -1.7 FiO2 25% 25% Sodium 134.5 L Potassium 4.2 Chloride 100 Carbon Dioxide 23 Anion Gap 12 BUN 51 H Creatinine 2.74 H Est GFR ( Amer) 28 L Glucose 283 H Calcium 8.8 Phosphorus 1.4 L Magnesium 1.8 Triglycerides Stl C.difficile Tox PCR 07/24/20 04:52 WBC 8.5 RBC 3.79 L Hgb 11.1 L Hct 32.4 L MCV 85 MCH 29.3 MCHC 34.4 RDW 16.9 H Plt Count 83 L Seg Neutrophils % 89.1 H Carbonic Acid HCO3/H2CO3 Ratio ABG pH ABG pCO2 ABG pO2 ABG HCO3 ABG O2 Saturation ABG Base Excess FiO2 Sodium Potassium Chloride Carbon Dioxide Anion Gap BUN Creatinine Est GFR ( Amer) Glucose Calcium Phosphorus Magnesium Triglycerides Stl C.difficile Tox PCR 07/09/20 07/20/20 07/20/20 11:47 05:00 05:00 Creatine Kinase 25 L Troponin I 0.235 0.232 NT-Pro-B Natriuret Pep [id number] H Impressions: Foot X-Ray 07/10/20 00:00 IMPRESSION: SEVERE DIFFUSE DEMINERALIZATION. CHRONIC CHANGES IN THE 5TH TOE. PROGRESSIVE DESTRUCTION OF THE 2ND TOE. MAY BE DUE TO OSTEOMYELITIS. Head CT 07/10/20 16:23 IMPRESSION: 1. No significant interval changes since the prior examinations dated 07/09/2020, 07/03/2020 and 04/12/2020. No acute intracranial abnormality. 2. Chronic mild small vessel ischemic changes. Stable appearance to the low attenuated area in the region of the right hankins radiata. Further evaluation with MRI Brain maybe helpful to exclude acute changes. 3. New finding of a fluid collection within the posterior nasopharynx which lies anterior and adjacent to the adenoids and extends into the oropharynx. Interval placement of endotracheal and nasogastric tube since the previous study dated 07/09/2020. This finding may be on an inflammatory basis, possibly due to reflux. Correlation suggested. EVIDENCE OF ACUTE STROKE: NO Chest X-Ray 07/24/20 05:00 IMPRESSION: No significant change. No pneumothorax. All labs, radiographs, diagnostic studies and EKGs were personally reviewed: Yes In addition, reports of radiographic and diagnostic studies were read: Yes Assessment and Plan - Diagnosis (1) Endotracheally intubated Is this a current diagnosis for this admission?: Yes Plan: He remains intubated. Check ABG. 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 This is likely presenting an obstacle to his liberation from mechanical ventilatory support. In addition, the movement disorder which he demonstrates may also be hindering e fforts to liberate him from mechanical ventilatory support. We need to rule out seizure versus tremor. Continue Solu-Medrol. Continue sedation. Plan sedation vacation in a.m. (2) Axonal GBS (Guillain-Hendley syndrome) Is this a current diagnosis for this admission?: Yes Plan: Based on available clinical history, it appears that this patient has a history of Guillain-Ventura syndrome which appears to have progressed to chronic inf lammatory demyelinating polyneuropathy. He has been on Solu-Cortef during his hospitalization; however this dosing is not sufficient to cover for treatment of AIDP or CIDP. Solu-Medrol 60 mg IV every 6 hours x4 doses followed by 60 mg daily (do not decrease until sign of clinical benefit). Contributing to his baseline weakness, which is wheelchair bound according to . (3) Thrombocytopenia Is this a current diagnosis for this admission?: Yes (4) Anemia in chronic kidney disease (CKD) Qualifiers: Chronic kidney disease stage: on chronic dialysis Qualified Code(s): N18.6 - End stage renal disease; D63.1 - Anemia in chronic kidney disease; Z99.2 - Dependence on renal dialysis Is this a current diagnosis for this admission?: Yes (5) End stage renal disease Is this a current diagnosis for this admission?: Yes Plan: Hemodilayisis per Nephrology. (6) Hypokalemia Is this a current diagnosis for this admission?: Yes (7) Leukocytosis Is this a current diagnosis for this admission?: Yes Plan: Trach aspirate (07/13) isolated E. coli. 1 of 2 blood cultures isolated S. au reus (MSSA, 07/09). Repeat blood cultures and trach aspirate. Completed treatment course of cefepime. (Did not need to start doxycycline). Of note, the patient has had continued systemic steroid exposure during this time. C. difficile antigen positive but toxin negative. WIll not initiate treatment for C. difficile at this time. (8) COVID-19 ruled out by laboratory testing Is this a current diagnosis for this admission?: Yes Critical Time Critical Time (minutes): 60 Level of Care: ICU -: 1. The care of a critical patient is a dynamic process. This note is a business office representative synopsis but static in nature. The timeframe for treatments given in order is not necessarily the actual time these treatments may have been done. 2. This patient requires critical care secondary to ongoing requirements for therapy not offered or safe outside the critical care environment. Transfer to a lower level of care will result in altered life or limb morbidity and mortality. 3. Multidisciplinary rounds completed. 4. ABCDE bundle addressed.
--- NOTE | 2020-07-24 19:47 | Progress Note ---
Provider Note Provider Note: CARDIOLOGY PROGRESS NOTE by Dr. Samia Roper on 07/24/2020 SUBJECTIVE: Patient remains intubated sedated. He is off pressors. There is been no improvement. There is no arrhythmias seen on the monitor. The patient continues to be in second-degree A-V block Mobitz type I Wenckebach. But hemodynamically stable. Agree with the patient being started on steroids. PHYSICAL EXAMINATION: The patient is emaciated, chronically ill and malnourished. Selected Entries 07/24/20 07/24/20 16:00 18:00 Pulse Rate 56 L Respiratory 14 14 Rate Blood Pressure 135/79 H 129/48 H [Upper Arm] Blood Pressure 97 75 Mean [Upper Arm ] Blood Pressure Supine Supine Position [Upper Arm] O2 Sat by Pulse 100 100 Oximetry Oxygen Delivery Mechanical Mechanical Method ( Ventilator Ventilator includes room air) Fraction of 25 Inspired Oxygen (FIO2) HEAD: Is atraumatic normocephalic. EYES: Pupils equal reactive to light. ENT is negative. There is right facial droop present. NECK: Supple. There is no JVD. Carotids are equal there is no bruits. Lungs: Fairly clear. Heart S1-S2 is heard there is no S3 gallop. There is no S4 gallop. There is no rub. ABDOMEN: Soft nontender. There is no hepatosplenomegaly. Bowel sounds well heard. EXTREMITIES: Femorals are diminished. Leg pulses are diminished. There is no pedal edema there is wasting of the muscles of the lower xtremities. [employer] and psychiatric exam not performed due to recurrent patient status Labs- All tests 24 hr 07/24/20 07/24/20 07/24/20 00:04 04:25 04:52 WBC RBC Hgb Hct MCV MCH MCHC RDW Plt Count Lymph % (Auto) [place] % (Auto) Eos % (Auto) Baso % (Auto) Absolute Neuts (auto) Absolute Lymphs (auto) Absolute Monos (auto) Absolute Eos (auto) Absolute Basos (auto) Seg Neutrophils % Carbonic Acid 0.92 L HCO3/H2CO3 Ratio 23:1 ABG pH 7.46 H ABG pCO2 30.6 L ABG pO2 103.7 H ABG HCO3 21.3 ABG Total CO2 22.2 L ABG O2 Saturation 98.1 H ABG Base Excess -1.7 FiO2 25% Sodium 134.5 L Potassium 4.2 Chloride 100 Carbon Dioxide 23 Anion Gap 12 BUN 51 H Creatinine 2.74 H Est GFR ( Amer) 28 L Est GFR (MDRD) Non-Af 24 L Glucose 283 H POC Glucose 234 H Calcium 8.8 Phosphorus 1.4 L Magnesium 1.8 07/24/20 07/24/20 07/24/20 04:52 05:21 11:40 WBC 8.5 RBC 3.79 L Hgb 11.1 L Hct 32.4 L MCV 85 MCH 29.3 MCHC 34.4 RDW 16.9 H Plt Count 83 L Lymph % (Auto) 6.9 L [place] % (Auto) 3.8 Eos % (Auto) 0.0 Baso % (Auto) 0.2 Absolute Neuts (auto) 7.5 Absolute Lymphs (auto) 0.6 Absolute Monos (auto) 0.3 Absolute Eos (auto) 0.0 Absolute Basos (auto) 0.0 Seg Neutrophils % 89.1 H Carbonic Acid HCO3/H2CO3 Ratio ABG pH ABG pCO2 ABG pO2 ABG HCO3 ABG Total CO2 ABG O2 Saturation ABG Base Excess FiO2 Sodium Potassium Chloride Carbon Dioxide Anion Gap BUN Creatinine Est GFR ( Amer) Est GFR (MDRD) Non-Af Glucose POC Glucose 237 H 269 H Calcium Phosphorus Magnesium 07/24/20 18:04 WBC RBC Hgb Hct MCV MCH MCHC RDW Plt Count Lymph % (Auto) [place] % (Auto) Eos % (Auto) Baso % (Auto) Absolute Neuts (auto) Absolute Lymphs (auto) Absolute Monos (auto) Absolute Eos (auto) Absolute Basos (auto) Seg Neutrophils % Carbonic Acid HCO3/H2CO3 Ratio ABG pH ABG pCO2 ABG pO2 ABG HCO3 ABG Total CO2 ABG O2 Saturation ABG Base Excess FiO2 Sodium Potassium Chloride Carbon Dioxide Anion Gap BUN Creatinine Est GFR ( Amer) Est GFR (MDRD) Non-Af Glucose POC Glucose 237 H Calcium Phosphorus Chest X-Ray 07/09/20 13:50 IMPRESSION: Stable enlarged cardiac silhouette, mild bilateral pleural effusions and bibasilar opacities, left greater than right. Head CT 07/09/20 14:42 IMPRESSION: 1. No significant interval changes since the prior examination dated 07/03/2020. No acute intracranial abnormality. 2. Chronic small vessel ischemic changes changes and mild atrophy. 3. Additional stable findings as above. EVIDENCE OF ACUTE STROKE: NO Foot X-Ray 07/10/20 00:00 IMPRESSION: SEVERE DIFFUSE DEMINERALIZATION. CHRONIC CHANGES IN THE 5TH TOE. PROGRESSIVE DESTRUCTION OF THE 2ND TOE. MAY BE DUE TO OSTEOMYELITIS. Chest X-Ray 07/10/20 16:17 IMPRESSION: 1. Interval placement of endotracheal tube, tip is approximately 3.4 cm proximal to the joselito. Nasogastric tube with the tip overlying the body of the stomach. No evidence of pneumothorax. 2. Lies, unchanged finding since the prior study dated 07/09/2020. Head CT 07/10/20 16:23 IMPRESSION: 1. No significant interval changes since the prior examinations dated 07/09/2020, 07/03/2020 and 04/12/2020. No acute intracranial abnormality. 2. Chronic mild small vessel ischemic changes. Stable appearance to the low attenuated area in the region of the right hankins radiata. Further evaluation with MRI Brain maybe helpful to exclude acute changes. 3. New finding of a fluid collection within the posterior nasopharynx which lies anterior and adjacent to the adenoids and extends into the oropharynx. Interval placement of endotracheal and nasogastric tube since the previous study dated 07/09/2020. This finding may be on an inflammatory basis, possibly due to reflux. Correlation suggested. EVIDENCE OF ACUTE STROKE: NO Chest X-Ray 07/13/20 00:00 IMPRESSION: The enteric tube is malpositioned and its tip projects at the level of the joselito within the thoracic esophagus. Otherwise unchanged radiographic appearance of the chest. Chest X-Ray 07/15/20 00:00 IMPRESSION: Repositioning of the enteric tube with the tip now projecting over the left upper quadrant. Otherwise, stable examination. Chest X-Ray 07/17/20 00:00 IMPRESSION: NO SIGNIFICANT CHANGE IN APPEARANCE OF THE CHEST. Chest X-Ray 07/17/20 12:24 IMPRESSION: SATISFACTORY POSITION OF THE ENDOTRACHEAL TUBE AND NASOGASTRIC TUBE. NO SIGNIFICANT CHANGE IN APPEARANCE OF THE CHEST. Chest X-Ray 07/23/20 00:00 IMPRESSION: No change. Chest X-Ray 07/24/20 05:00 IMPRESSION: No significant change. No pneumothorax. Magnesium IMPRESSION/RECOMMENDATION: 1. Acute hypercapnic respiratory failure. Patient intubated. 2. Hypotension: This is resolved. The patient's blood pressure is now stable without pressors. In view of the patient being on steroids would recommend continue maintenance dose of 2 steroids and also fludrocortisone. We will leave this to the armored truck driver. 3. End-stage renal disease on hemodialysis. 4. Possible osteomyelitis of the right foot. Recommend antibiotics. 5. Ischemic cardiomyopathy with moderately reduced LV ejection fraction. 6. Coronary artery disease, patient's troponin is elevated but this may be secondary to supply demand mismatch rather than [place] the cause is being hypotension, respiratory failure and renal failure. 7. Diabetes mellitus: Continue high-level antidiabetic treatment. 8. History of prior CVA. 9. 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 Is there is also causing respiratory muscle weakness causing hypoventilation versus central sleep apnea. Will recommend a trial dose of modanafinil. Medications reviewed. Medical regimen management plan discussed with the armored truck driver. Medical decision making is of moderate complexity. 40 minutes spent as patient more than 50% of time spent in direct patient care. Will fol low.
[2020-07-24] MEDS: LATANOPROST 0.005% OPH SOLN 2.5 ML OU SCH (21:09)
[2020-07-25] MEDS: ALBUTEROL SULFATE 0.083% NEB 2.5 MG/3 ML AMPUL NEB SCH ×5 (02:08→20:20)
[2020-07-25] MEDS: PROPOFOL 1,000 MG/100 ML INFUS..BTL IV PRN (02:30)
[2020-07-25 04:48] LABS: ARTERIAL BLOOD FIO2 25%; ARTERIAL BLOOD H2CO3 0.88 mmol/L (1.05-1.35); ARTERIAL BLOOD O2 SATURATION 90.7 % (94-98); ARTERIAL BLOOD PCO2 29.3 mmHg (35-45); ARTERIAL BLOOD PH 7.45 (7.35-7.45); ARTERIAL BLOOD PO2 55.4 mmHg (80-100); ARTERIAL BLOOD TOTAL CO2 20.9 mmol/L (23-27)
[2020-07-25 04:53] LABS: ABSOLUTE LYMPHOCYTES (AUTO) 1.1 10^3/uL (0.5-4.7); ABSOLUTE MONOCYTES (AUTO) 0.6 10^3/uL (0.1-1.4); ABSOLUTE NEUT (AUTO) 8.1 10^3/uL (1.7-8.2); BASOPHILS % (AUTO) 0.1 % (0-2); EOSINOPHILS % (AUTO) 0.1 % (0-6); HEMATOCRIT 32.1 % (37.9-51.0); HEMOGLOBIN 10.8 g/dL (13.5-17.0); LYMPHOCYTES % (AUTO) 10.8 % (13-45); MEAN CORPUSCULAR HEMOGLOBIN 28.9 pg (27.0-33.4); MEAN CORPUSCULAR HGB CONC 33.6 g/dL (32.0-36.0); MEAN CORPUSCULAR VOLUME 86 fl (80-97); MONOCYTES % (AUTO) 6.1 % (3-13); RED BLOOD COUNT 3.74 10^6/uL (4.35-5.55); RED CELL DISTRIBUTION WIDTH 16.6 % (11.5-14.0); SEGMENTED NEUTROPHILS % (AUTO) 82.9 % (42-78); TOTAL CELLS COUNTED % (AUTO) 100 %; WHITE BLOOD COUNT 9.7 10^3/uL (4.0-10.5)
[2020-07-25] MEDS ORDERED: HEPARIN SOD (PORCINE) 1,000 UNIT/ML 10 ML VIAL IV PRN (05:00)
[2020-07-25] MEDS ORDERED: ALTEPLASE INJ 2 MG VIAL (CATH CLEARANCE) INJ PRN (05:00)
[2020-07-25 05:27] LABS: ALBUMIN 2.8 g/dL (3.5-5.0); ALKALINE PHOSPHATASE 112 U/L (38-126); ANION GAP 11 (5-19); ASPARTATE AMINO TRANSFERASE 27 U/L (17-59); BILIRUBIN,DIRECT 0.8 mg/dL (0.0-0.4); BILIRUBIN,TOTAL 0.8 mg/dL (0.2-1.3); BLOOD UREA NITROGEN 59 mg/dL (7-20); CALCIUM 8.5 mg/dL (8.4-10.2); CARBON DIOXIDE 23 mmol/L (22-30); CHLORIDE 100 mmol/L (98-107); GLUCOSE 206 mg/dL (75-110); POTASSIUM 3.5 mmol/L (3.6-5.0); TOTAL PROTEIN 6.2 g/dL (6.3-8.2)
[2020-07-25 05:33] LABS: PLATELET COUNT 76 10^3/uL (150-450)
[2020-07-25] MEDS: INSULIN REG, HUMAN 100 UNIT/ML 3 ML VIAL (PYX) SUBCUT SCH ×3 (06:01→17:51)
[2020-07-25] MEDS: VANCOMYCIN HCL INJ 500 MG VIAL NG SCH ×3 (06:05→17:50)
[2020-07-25] MEDS: HEPARIN SOD (PORCINE) 5,000 UNIT/ML 1 ML VIAL SUBCUT SCH ×3 (06:06→21:17)
[2020-07-25] MEDS ORDERED: POTASSIUM CHLORIDE 20 MEQ PACKET NG ONE (08:30)
--- NOTE | 2020-07-25 08:34 | RADIOLOGY REPORT (SQ) ---
EXAM DESCRIPTION: CHEST SINGLE VIEW IMAGES COMPLETED DATE/TIME: 07/25/2020 7:02 am REASON FOR STUDY: Intubated COMPARISON: AP view of the chest from 07/24/2020. EXAM PARAMETERS: NUMBER OF VIEWS: One view. TECHNIQUE: An AP view of the chest was obtained. RADIATION DOSE: NA LIMITATIONS: None. FINDINGS: LUNGS AND PLEURA: Stable bilateral and asymmetric (left greater than right) basilar predom inant pleural and parenchymal opacities that are associated with blunting of the costophrenic sulci. MEDIASTINUM AND HILAR STRUCTURES: Stable mediastinal and hilar contours. HEART AND VASCULAR STRUCTURES: Stable enlarged cardiac silhouette. BONES: No acute findings. HARDWARE: The tip of the endotracheal tube projects 3.3 cm above the joselito. The tip of the left sub clavian vein approach central venous catheter projects within the SVC. The tip of the tunneled right IJ hemodialysis catheter projects at the level of the cavoatrial junction. The tip of the endotrach eal tube projects past the gastroesophageal junction and outside the field of view of the radiograph. There is re- demonstration of sternotomy wires, mediastinal surgical clips, and of coronary stents. OTHER: No other finding. IMPRESSION: Unchanged radiographic appearance of the chest. TECHNICAL DOCUMENTATION: JOB ID: [id number] 2010 [employer]- All Rights Reserved Reading location - IP/workstation name: [email or web address]
[2020-07-25] MEDS: DOCUSATE SODIUM 100 MG/10 ML UDC NG SCH (09:51)
[2020-07-25] MEDS: POTASSIUM CHLORIDE 20 MEQ PACKET NG SCH (09:51)
[2020-07-25] MEDS: AMINO AC/PROTEIN HYDR/WHEY PRO 11 GM/45 ML PKT NG SCH ×2 (09:52→17:50)
[2020-07-25] MEDS: METHYLPREDNISOLONE INJ 125 MG/2 ML SDV IV SCH (09:52)
[2020-07-25] MEDS: PANTOPRAZOLE SODIUM 40 MG VIAL IV SCH (09:52)
[2020-07-25] MEDS: COLCHICINE 0.6 MG TABLET NG SCH ×2 (09:53→17:51)
[2020-07-25] MEDS ORDERED: METHYLPREDNISOLONE INJ 125 MG/2 ML SDV IV SCH (10:00)
[2020-07-25] MEDS ORDERED: METHYLPREDNISOLONE INJ 40 MG/1 ML SDV IV SCH (10:00)
[2020-07-25 10:34] LABS: ANION GAP 9 (5-19); BLOOD UREA NITROGEN 40 mg/dL (7-20); CALCIUM 8.3 mg/dL (8.4-10.2); CARBON DIOXIDE 27 mmol/L (22-30); CHLORIDE 100 mmol/L (98-107); GLUCOSE 132 mg/dL (75-110); POTASSIUM 3.2 mmol/L (3.6-5.0)
--- NOTE | 2020-07-25 12:37 | PDOC PROGRESS REPORT ---
Subjective Progress Note for:: 07/25/20 Reason For Visit: Patient seen in the ICU today while on HD.Still is intubated though he is awake but nt responding to any commands.Labs and medications were reviewed. His BP is tenous on HD while trying to extract fluid and so had to revive with fluids and so likely will come as nett positive at the end of HD. Physical Exam Vital Signs: Temp Pulse Resp BP Pulse Ox 97.7 F 95 16 95/60 L 100 07/25/20 08:00 07/25/20 08:30 07/25/20 10:14 07/25/20 10:14 07/25/20 11:32 Intake & Output 07/24/20 07/25/20 07/26/20 06:59 06:59 06:59 Intake Total 7931 926 7272 Output Total 1000 0 419 Balance 735 025 5148 Weight 61.9 kg 62.7 kg Exam: Looks very sick and moribund and critical. Respiratory exam: PRESENT: clear to auscultation jolie. ABSENT: crackles Cardiovascular exam: PRESENT: +S1, +S2 GI/Abdominal exam: PRESENT: normal bowel sounds, soft. ABSENT: organomegaly, tenderness Extremities exam: ABSENT: pedal edema Results Laboratory Results: 07/25/20 04:28 07/25/20 10:00 07/25/20 07/25/20 07/25/20 04:28 04:28 04:35 WBC 9.7 RBC 3.74 L Hgb 10.8 L Hct 32.1 L MCV 86 MCH 28.9 MCHC 33.6 RDW 16.6 H Plt Count 76 L Seg Neutrophils % 82.9 H Carbonic Acid 0.88 L HCO3/H2CO3 Ratio 22:1 ABG pH 7.45 ABG pCO2 29.3 L ABG pO2 55.4 L ABG HCO3 20.0 ABG O2 Saturation 90.7 L ABG Base Excess -3.0 FiO2 25% Sodium 134.4 L Potassium 3.5 L Chloride 100 Carbon Dioxide 23 Anion Gap 11 BUN 59 H Creatinine 3.00 H Est GFR ( Amer) 26 L Glucose 206 H Calcium 8.5 Magnesium Total Bilirubin 0.8 AST 27 Alkaline Phosphatase 112 Total Protein 6.2 L Albumin 2.8 L 07/25/20 07/25/20 10:00 10:00 WBC RBC Hgb Hct MCV MCH MCHC RDW Plt Count Seg Neutrophils % Carbonic Acid HCO3/H2CO3 Ratio ABG pH ABG pCO2 ABG pO2 ABG HCO3 ABG O2 Saturation ABG Base Excess FiO2 Sodium 135.9 L Potassium 3.2 L Chloride 100 Carbon Dioxide 27 Anion Gap 9 BUN 40 H Creatinine 2.11 H Est GFR ( Amer) 38 L Glucose 132 H Calcium 8.3 L Magnesium Cancelled 1.6 Total Bilirubin AST Alkaline Phosphatase Total Protein Albumin 07/09/20 07/20/20 07/20/20 11:47 05:00 05:00 Creatine Kinase 25 L Troponin I 0.235 0.232 NT-Pro-B Natriuret Pep [id number] H Impressions: Foot X-Ray 07/10/20 00:00 IMPRESSION: SEVERE DIFFUSE DEMINERALIZATION. CHRONIC CHANGES IN THE 5TH TOE. PROGRESSIVE DESTRUCTION OF THE 2ND TOE. MAY BE DUE TO OSTEOMYELITIS. Head CT 07/10/20 16:23 IMPRESSION: 1. No significant interval changes since the prior examinations dated 07/09/2020, 07/03/2020 and 04/12/2020. No acute intracranial abnormality. 2. Chronic mild small vessel ischemic changes. Stable appearance to the low attenuated area in the region of the right hankins radiata. Further evaluation with MRI Brain maybe helpful to exclude acute changes. 3. New finding of a fluid collection within the posterior nasopharynx which lies anterior and adjacent to the adenoids and extends into the oropharynx. Interval placement of endotracheal and nasogastric tube since the previous study dated 07/09/2020. This finding may be on an inflammatory basis, possibly due to reflux. Correlation suggested. EVIDENCE OF ACUTE STROKE: NO Chest X-Ray 07/25/20 04:00 IMPRESSION: Unchanged radiographic appearance of the chest. Assessment & Plan - Diagnosis (1) ESRD on hemodialysis Is this a current diagnosis for this admission?: Yes Plan: Patient currently undergoing dialysis. He is currently off all pressors and blood pressure looks relatively stable prior to dialysis but then he drops while undergoing dialysis and fluid removal becomes rather difficult. Dialysis orders were reviewed with treating dialysis nurse.His catheter was not working well and so had to alteplase it and now is better. This patient is extremely critical and given his multiple complex comorbidities he has a guarded prognosis. (2) Hypotension Qualifiers: Hypotension type: idiopathic hypotension Qualified Code(s): I95.0 - Idiopathic hypotension Is this a current diagnosis for this admission?: Yes Plan: Currently off pressors and remains electively stable. However he drops when we put him on dialysis and tried to extract fluid. (3) Acute respiratory failure Qualifiers: Respiratory failure complication: hypercapnia Qualified Code(s): J96.02 - Acute respiratory failure with hypercapnia Is this a current diagnosis for this admission?: Yes Plan: Hypercarbic respiratory failure. Differential diagnosis for this includes generalized debility on top of Guillain-Ventura/bilateral pleural effusions/occult consolidation/Possible aspiration/acute on chronic CHF.Currently intubated. (4) Axonal GBS (Guillain-Warfield syndrome) Is this a current diagnosis for this admission?: Yes Plan: Status quo with residual deficits and parapaplegia. (5) Diabetes mellitus, type II Qualifiers: Diabetes mellitus roasterman insulin use: without roasterman use Is this a current diagnosis for this admission?: Yes Plan: As per registry np. (6) History of Clostridium difficile infection Plan: Status quo. Patient usually goes into developing c.diff once he is being treated with antibiotics for other infections. Monitor for resurgence of this.Now positive for GDH though PCR negative. Being treated with PO vanc. 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 (8) Peripheral vascular disease Is this a current diagnosis for this admission?: Yes Plan: Development of early gangrene of his toes with history of osteomyelitis in the past. (9) Recurrent urinary tract infection Plan: Monitor for this. If his white count especially is going high he might need to have an ED catheter to test his urine for possible infections.
[2020-07-25] MEDS ORDERED: ALBUTEROL SULFATE 0.083% NEB 2.5 MG/3 ML AMPUL NEB PRN (13:20)
[2020-07-25] MEDS: MAGNESIUM SULFATE/D5W 1 GM/100 ML RTUPB IV SCH ×3 (13:25→15:30)
[2020-07-25] MEDS: METOCLOPRAMIDE HCL ORAL SOLN 10 MG/10 ML UDCUP NG SCH ×2 (13:27→18:07)
[2020-07-25 19:43] LABS: POTASSIUM 4.1 mmol/L (3.6-5.0)
--- NOTE | 2020-07-25 19:50 | PDOC CRITICAL CARE PROG REPORT ---
General Date:: 07/25/20 ICU Day:: 7 Ventilator Day:: 7 Hospital Day:: 15 Resuscitation Status: Full Code Events in the past 12 to 24 Hours:: This 64-year-old -[place] male was originally admitted on 06/19/2020 with altered mental status. His reported that he had been demonstrating confusion for at least a couple of days prior to presentation. In addition, he presented with hypotension. He was admitted for further evaluation of possible sepsis. He was admitted to IMCU but transferred within 24 hours to the ICU after he became obtunded. pH 6.9, PCO2 130. He was intubated in the ICU. He subsequently improved and transferred out only to return about a day later (07/17/2020) again with hypotension and acute hypercapnic respiratory failure. He is an end-stage renal disease patient on hemodialysis and has a history of Guillain-Ventura syndrome. 07/23: Awake. Does not clearly follow commands. He demonstrates rhythmic movements, which are most notable involving the face (right-sided) and right arm. Remains intubated. Off sedation. Nurse reports that he continues to have copious amounts of watery diarrhea. Discussed with Dr. Tavares (nephrology). 07/24: Resting comfortably on the ventilator. Now on sedation. No longer demonstrating rhythmic contractions. EEG delayed (no wind turbine service technician available until next week). Phosphorus 1.4. Started today on Solu-Medrol 60 mg IV every 6 hours x4 doses followed by 60 mg IV daily, directed at the patient's AIDP/CIDP. 07/25: HD this a.m. Overnight, the nursing staff reports that the patient had a bout of emesis, raising suspicion for an aspiration event. Copious endotracheal secretions are noted this morning. Platelets 76, downtrending. Still on p ropofol. During sedation vacation, the patient promptly demonstrates increased motor activity with intermittent episodes of "rhythmic movement" as previously seen. Review of systems relevant to events:: Neurological Reason for ICU Addmission:: Intubated and not responsive. - Medications: Medications reviewed and adjusted accordingly: Yes Sedation:: Propofol Physical Exam Vital Signs: Temp Pulse Resp BP Pulse Ox 97.6 F 95 15 137/53 H 100 07/25/20 12:00 07/25/20 08:30 07/25/20 12:38 07/25/20 12:38 07/25/20 12:38 Intake & Output 07/24/20 07/25/20 07/26/20 06:59 06:59 06:59 Intake Total 2639 951 0861 Output Total 1000 0 419 Balance 508 131 9568 Weight 61.9 kg 62.7 kg 62.7 kg Weight/Height Weight 62.7 kg Height 1.7 m General appearance: PRESENT: no acute distress, well-developed, well-nourished Head exam: PRESENT: atraumatic, normocephalic Mouth exam: PRESENT: moist, tongue midline Respiratory exam: PRESENT: rales, rhonchi. ABSENT: wheezes Cardiovascular exam: PRESENT: RRR. ABSENT: diastolic murmur, rubs, systolic murmur GI/Abdominal exam: PRESENT: normal bowel sounds, soft. ABSENT: distended, guarding, mass, organolmegaly, rebound, tenderness Neurological exam: PRESENT: CN II-XII grossly intact, other - Pain sensation intact x4 extremities. 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 Left hand is considerably weaker in assembly repairer strength. Tubes/Lines: PRESENT: Endotracheal Tube, Central Line - Left IJ, Dialysis catheter - Right subclavian Laboratory/Radiographs Laboratory Results: 07/25/20 04:28 07/25/20 10:00 07/25/20 07/25/20 07/25/20 04:28 04:28 04:35 WBC 9.7 RBC 3.74 L Hgb 10.8 L Hct 32.1 L MCV 86 MCH 28.9 MCHC 33.6 RDW 16.6 H Plt Count 76 L Seg Neutrophils % 82.9 H Carbonic Acid 0.88 L HCO3/H2CO3 Ratio 22:1 ABG pH 7.45 ABG pCO2 29.3 L ABG pO2 55.4 L ABG HCO3 20.0 ABG O2 Saturation 90.7 L ABG Base Excess -3.0 FiO2 25% Sodium 134.4 L Potassium 3.5 L Chloride 100 Carbon Dioxide 23 Anion Gap 11 BUN 59 H Creatinine 3.00 H Est GFR ( Amer) 26 L Glucose 206 H Calcium 8.5 Magnesium Total Bilirubin 0.8 AST 27 Alkaline Phosphatase 112 Total Protein 6.2 L Albumin 2.8 L 07/25/20 07/25/20 10:00 10:00 WBC RBC Hgb Hct MCV MCH MCHC RDW Plt Count Seg Neutrophils % Carbonic Acid HCO3/H2CO3 Ratio ABG pH ABG pCO2 ABG pO2 ABG HCO3 ABG O2 Saturation ABG Base Excess FiO2 Sodium 135.9 L Potassium 3.2 L Chloride 100 Carbon Dioxide 27 Anion Gap 9 BUN 40 H Creatinine 2.11 H Est GFR ( Amer) 38 L Glucose 132 H Calcium 8.3 L Magnesium Cancelled 1.6 Total Bilirubin AST Alkaline Phosphatase Total Protein Albumin 07/09/20 07/20/20 07/20/20 11:47 05:00 05:00 Creatine Kinase 25 L Troponin I 0.235 0.232 NT-Pro-B Natriuret Pep 150309 H Impressions: Foot X-Ray 07/10/20 00:00 IMPRESSION: SEVERE DIFFUSE DEMINERALIZATION. CHRONIC CHANGES IN THE 5TH TOE. PROGRESSIVE DESTRUCTION OF THE 2ND TOE. MAY BE DUE TO OSTEOMYELITIS. Head CT 07/10/20 16:23 IMPRESSION: 1. No significant interval changes since the prior examinations dated 07/09/2020, 07/03/2020 and 04/12/2020. No acute intracranial abnormality. 2. Chronic mild small vessel ischemic changes. Stable appearance to the low attenuated area in the region of the right hankins radiata. Further evaluation with MRI Brain maybe helpful to exclude acute changes. 3. New finding of a fluid collection within the posterior nasopharynx which lies anterior and adjacent to the adenoids and extends into the oropharynx. Interval placement of endotracheal and nasogastric tube since the previous study dated 07/09/2020. This finding may be on an inflammatory basis, possibly due to reflux. Correlation suggested. EVIDENCE OF ACUTE STROKE: NO Chest X-Ray 07/25/20 04:00 IMPRESSION: Unchanged radiographic appearance of the chest. All labs, radiographs, diagnostic studies and EKGs were personally reviewed: Yes In addition, reports of radiographic and diagnostic studies were read: Yes Assessment and Plan - Diagnosis (1) Endotracheally intubated Is this a current diagnosis for this admission?: Yes Plan: Continue PRVC mode. Sedation vacation today. 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 This is likely p resenting an obstacle to his liberation from mechanical ventilatory support. In addition, the movement disorder which he demonstrates may also be hindering efforts to liberate him from mechanical ventilatory support. We need to rule out seizure versus tremor. EEG was ordered; however, EEG testing is apparently unavailable for the entire week. Continue Solu-Medrol. Currently on levofloxacin for MSSA and E cloacae pneumonia. (2) Axonal GBS (Guillain-Corning syndrome) Is this a current diagnosis for this admission?: Yes (3) Thrombocytopenia Is this a current diagnosis for this admission?: Yes Plan: Stop Pepcid. Start Protonix. If platelet count fails to improve in the next 48 hours, may need to test for heparin-induced thrombocytopenia. (4) Hypomagnesemia Is this a current diagnosis for this admission?: Yes Plan: Replete (5) Anemia in chronic kidney disease (CKD) Qualifiers: Chronic kidney disease stage: on chronic dialysis Qualified Code(s): N18.6 - End stage renal disease; D63.1 - Anemia in chronic kidney disease; Z99.2 - Dependence on renal dialysis Is this a current diagnosis for this admission?: Yes (6) End stage renal disease Is this a current diagnosis for this admission?: Yes (7) Hypokalemia Is this a current diagnosis for this admission?: Yes (8) Leukocytosis Is this a current diagnosis for this admission?: Yes (9) COVID-19 ruled out by laboratory testing Is this a current diagnosis for this admission?: Yes Critical Time Critical Time (minutes): 60 Level of Care: ICU -: 1. The care of a critical patient is a dynamic process. This note is a insurance claims representative synopsis but static in nature. The timeframe for treatments given in order is not necessarily the actual time these treatments may have been done. 2. This patient requires critical care secondary to ongoing requirements for therapy not offered or safe outside the critical care environment. Transfer to a lower level of care will result in altered life or limb morbidity and mortality. 3. Multidisciplinary rounds completed. 4. ABCDE bundle addressed.
[2020-07-25] MEDS: BUDESONIDE NEB 0.25 MG/2 ML AMPUL NEB SCH (20:21)
--- NOTE | 2020-07-25 20:48 | Progress Note ---
Provider Note Provider Note: CARDIOLOGY PROGRESS NOTE by Dr. Samia Roper on 07/25/2020 SUBJECTIVE: Patient remains intubated sedated. He is off pressors. There is been no improvement. There is no arrhythmias seen on the monitor. His second- degree AV block has resolved and is now sinus rhythm with a normal GA interval. PHYSICAL EXAMINATION: The patient is emaciated, chronically ill and malnourished. Selected Entries 07/25/20 07/25/20 16:00 16:53 Heart Rate ( 75 Monitors) Respiratory 16 Rate Blood Pressure 111/72 Blood Pressure 85 Mean O2 Sat by Pulse 100 Oximetry Fraction of 30 Inspired Oxygen (FIO2) HEAD: Is atraumatic normocephalic. EYES: Pupils equal reactive to light. ENT is negative. There is right facial droop present. NECK: Supple. There is no JVD. Carotids are equal there is no bruits. Lungs: Fairly clear. Heart S1-S2 is heard there is no S3 gallop. There is no S4 gallop. There is no rub. ABDOMEN: Soft nontender. There is no hepatosplenomegaly. Bowel sounds well heard. EXTREMITIES: Femorals are diminished. Leg pulses are diminished. There is no pedal edema there is wasting of the muscles of the lower xtremities. SALESFORCE ADMINISTRATOR and psychiatric exam not performed due to recurrent patient status. Labs- All tests 24 hr 07/25/20 07/25/20 07/25/20 04:28 04:28 04:35 WBC 9.7 RBC 3.74 L Hgb 10.8 L Hct 32.1 L MCV 86 MCH 28.9 MCHC 33.6 RDW 16.6 H Plt Count 76 L Lymph % (Auto) 10.8 L Stearns % (Auto) 6.1 Eos % (Auto) 0.1 Baso % (Auto) 0.1 Absolute Neuts (auto) 8.1 Absolute Lymphs (auto) 1.1 Absolute Monos (auto) 0.6 Absolute Eos (auto) 0.0 Absolute Basos (auto) 0.0 Seg Neutrophils % 82.9 H Carbonic Acid 0.88 L HCO3/H2CO3 Ratio 22:1 ABG pH 7.45 ABG pCO2 29.3 L ABG pO2 55.4 L ABG HCO3 20.0 ABG Total CO2 20.9 L ABG O2 Saturation 90.7 L ABG Base Excess -3.0 FiO2 25% Sodium 134.4 L Potassium 3.5 L Chloride 100 Carbon Dioxide 23 Anion Gap 11 BUN 59 H Creatinine 3.00 H Est GFR ( Amer) 26 L Est GFR (MDRD) Non-Af 21 L Glucose 206 H POC Glucose Calcium 8.5 Magnesium Total Bilirubin 0.8 Direct Bilirubin 0.8 H Neonat Total Bilirubin Not Reportable Neonat Direct Bilirubin Not Reportable Neonat Indirect Bili Not Reportable AST 27 ALT 20 Alkaline Phosphatase 112 Total Protein 6.2 L Albumin 2.8 L 07/25/20 07/25/20 07/25/20 05:57 10:00 10:00 WBC RBC Hgb Hct MCV MCH MCHC RDW Plt Count Lymph % (Auto) Stearns % (Auto) Eos % (Auto) Baso % (Auto) Absolute Neuts (auto) Absolute Lymphs (auto) Absolute Monos (auto) Absolute Eos (auto) Absolute Basos (auto) Seg Neutrophils % Carbonic Acid HCO3/H2CO3 Ratio ABG pH ABG pCO2 ABG pO2 ABG HCO3 ABG Total CO2 ABG O2 Saturation ABG Base Excess FiO2 Sodium 135.9 L Potassium 3.2 L Chloride 100 Carbon Dioxide 27 Anion Gap 9 BUN 40 H Creatinine 2.11 H Est GFR ( Amer) 38 L Est GFR (MDRD) Non-Af 32 L Glucose 132 H POC Glucose 179 H Calcium 8.3 L Magnesium Cancelled 1.6 Total Bilirubin Direct Bilirubin Neonat Total Bilirubin Neonat Direct Bilirubin Neonat Indirect Bili AST ALT Alkaline Phosphatase Total Protein Albumin 07/25/20 07/25/20 07/25/20 11:08 17:35 19:10 WBC RBC Hgb Hct MCV MCH MCHC RDW Plt Count Lymph % (Auto) Stearns % (Auto) Eos % (Auto) Baso % (Auto) Absolute Neuts (auto) Absolute Lymphs (auto) Absolute Monos (auto) Absolute Eos (auto) Absolute Basos (auto) Seg Neutrophils % Carbonic Acid HCO3/H2CO3 Ratio ABG pH ABG pCO2 ABG pO2 ABG HCO3 ABG Total CO2 ABG O2 Saturation ABG Base Excess FiO2 Sodium Potassium 4.1 Chloride Carbon Dioxide Anion Gap BUN Creatinine Est GFR ( Amer) Est GFR (MDRD) Non-Af Glucose POC Glucose 130 H 160 H Calcium Magnesium 2.4 H Total Bilirubin Direct Bilirubin Neonat Total Bilirubin Neonat Direct Bilirubin Neonat Indirect Bili AST ALT Alkaline Phosphatase Total Protein Albumin Chest X-Ray 07/09/20 13:50 IMPRESSION: Stable enlarged cardiac silhouette, mild bilateral pleural effusions and bibasilar opacities, left greater than right. Head CT 07/09/20 14:42 IMPRESSION: 1. No significant interval changes since the prior examination dated 07/03/2020. No acute intracranial abnormality. 2. Chronic small vessel ischemic changes changes and mild atrophy. 3. Additional stable findings as above. EVIDENCE OF ACUTE STROKE: NO Foot X-Ray 07/10/20 00:00 IMPRESSION: SEVERE DIFFUSE DEMINERALIZATION. CHRONIC CHANGES IN THE 5TH TOE. PROGRESSIVE DESTRUCTION OF THE 2ND TOE. MAY BE DUE TO OSTEOMYELITIS. Chest X-Ray 07/10/20 16:17 IMPRESSION: 1. Interval placement of endotracheal tube, tip is approximately 3.4 cm proximal to the joselito. Nasogastric tube with the tip overlying the body of the stomach. No evidence of pneumothorax. 2. Lies, unchanged finding since the prior study dated 07/09/2020. Head CT 07/10/20 16:23 IMPRESSION: 1. No significant interval changes since the prior examinations dated 07/09/2020, 07/03/2020 and 04/12/2020. No acute intracranial abnormality. 2. Chronic mild small vessel ischemic changes. Stable appearance to the low attenuated area in the region of the right hankins radiata. Further evaluation with MRI Brain maybe helpful to exclude acute changes. 3. New finding of a fluid collection within the posterior nasopharynx which lies anterior and adjacent to the adenoids and extends into the oropharynx. Interval placement of endotracheal and nasogastric tube since the previous study dated 07/09/2020. This finding may be on an inflammatory basis, possibly due to reflux. Correlation suggested. EVIDENCE OF ACUTE STROKE: NO Chest X-Ray 07/13/20 00:00 IMPRESSION: The enteric tube is malpositioned and its tip projects at the level of the joselito within the thoracic esophagus. Otherwise unchanged radiographic appearance of the chest. Chest X-Ray 07/15/20 00:00 IMPRESSION: Repositioning of the enteric tube with the tip now projecting over the left upper quadrant. Otherwise, stable examination. Chest X-Ray 07/17/20 00:00 IMPRESSION: NO SIGNIFICANT CHANGE IN APPEARANCE OF THE CHEST. Chest X-Ray 07/17/20 12:24 IMPRESSION: SATISFACTORY POSITION OF THE ENDOTRACHEAL TUBE AND NASOGASTRIC TUBE. NO SIGNIFICANT CHANGE IN APPEARANCE OF THE CHEST. Chest X-Ray 07/23/20 00:00 IMPRESSION: No change. Chest X-Ray 07/24/20 05:00 IMPRESSION: No significant change. No pneumothorax. Chest X-Ray 07/25/20 04:00 IMPRESSION: Unchanged radiographic appearance of the chest. IMPRESSION/RECOMMENDATION: 1. Acute hypercapnic respiratory failure. Patient intubated. 2. Hypotension: This is resolved. The patient's blood pressure is now stable without pressors. In view of the patient being on steroids would recommend continue maintenance dose of 2 steroids and also fludrocortisone. We will leave this to the computer laboratory technician. 3. End-stage renal disease on hemodialysis. 4. Possible osteomyelitis of the right foot. Recommend antibiotics. 5. Ischemic cardiomyopathy with moderately reduced LV ejection fraction. 6. Coronary artery disease, patient's troponin was elevated but this may be secondary to supply demand mismatch rather than [place] the cause is being hypotension, respiratory failure and renal failure. 7. Diabetes mellitus: Continue high-level antidiabetic treatment. 8. History of prior CVA. 9. 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 Is there is also causing respiratory muscle weakness causing hypoventilation versus central sleep apnea. Will recommend a trial dose of modanafinil. Medications reviewed. Medical regimen management plan discussed with the computer laboratory technician. Medical decision making is of moderate complexity. 40 minutes spent as patient more than 50% of time spent in direct patient care. Will follow.
[2020-07-25] MEDS: LATANOPROST 0.005% OPH SOLN 2.5 ML OU SCH (21:19)
[2020-07-26] MEDS: ALBUTEROL SULFATE 0.083% NEB 2.5 MG/3 ML AMPUL NEB SCH ×6 (00:22→19:59)
[2020-07-26] MEDS: INSULIN REG, HUMAN 100 UNIT/ML 3 ML VIAL (PYX) SUBCUT SCH ×4 (01:21→17:53)
[2020-07-26] MEDS: VANCOMYCIN HCL INJ 500 MG VIAL NG SCH ×4 (01:21→17:52)
[2020-07-26] MEDS: METOCLOPRAMIDE HCL ORAL SOLN 10 MG/10 ML UDCUP NG SCH ×4 (01:21→17:53)
[2020-07-26 04:01] LABS: BASOPHILS % (AUTO) 0.1 % (0-2); EOSINOPHILS % (AUTO) 0.1 % (0-6); TOTAL CELLS COUNTED % (AUTO) 100 %
[2020-07-26 04:06] LABS: ANION GAP 11 (5-19); BLOOD UREA NITROGEN 47 mg/dL (7-20); CALCIUM 8.5 mg/dL (8.4-10.2); CARBON DIOXIDE 24 mmol/L (22-30); CHLORIDE 101 mmol/L (98-107); GLUCOSE 132 mg/dL (75-110); PHOSPHORUS 0.6 mg/dL (2.5-4.5); POTASSIUM 3.7 mmol/L (3.6-5.0); TRIGLYCERIDES 103 mg/dL (<150)
[2020-07-26 04:08] LABS: ABSOLUTE LYMPHOCYTES (AUTO) 1.1 10^3/uL (0.5-4.7); ABSOLUTE MONOCYTES (AUTO) 0.8 10^3/uL (0.1-1.4); ABSOLUTE NEUT (AUTO) 10.7 10^3/uL (1.7-8.2); HEMATOCRIT 31.5 % (37.9-51.0); HEMOGLOBIN 10.3 g/dL (13.5-17.0); MEAN CORPUSCULAR HGB CONC 32.8 g/dL (32.0-36.0); MEAN CORPUSCULAR VOLUME 85 fl (80-97); SEGMENTED NEUTROPHILS % (AUTO) 84.8 % (42-78); WHITE BLOOD COUNT 12.6 10^3/uL (4.0-10.5)
[2020-07-26 04:22] LABS: PLATELET COUNT 62 10^3/uL (150-450)
[2020-07-26] MEDS: HEPARIN SOD (PORCINE) 5,000 UNIT/ML 1 ML VIAL SUBCUT SCH (05:18)
[2020-07-26] MEDS ORDERED: SODIUM PHOS,M-BASIC-D-BASIC 60 MMOL in NORMAL SALINE 500 ML IV ONE ×2 (07:00→09:00)
[2020-07-26] MEDS: BUDESONIDE NEB 0.25 MG/2 ML AMPUL NEB SCH ×2 (08:00→19:59)
[2020-07-26 08:55] LABS: ARTERIAL BLOOD BASE EXCESS -3.3 mmol/L; ARTERIAL BLOOD H2CO3 1.04 mmol/L (1.05-1.35); ARTERIAL BLOOD O2 SATURATION 97.6 % (94-98); ARTERIAL BLOOD PCO2 34.7 mmHg (35-45); ARTERIAL BLOOD PO2 100.5 mmHg (80-100)
[2020-07-26 08:57] LABS: ARTERIAL BLOOD FIO2 30%
[2020-07-26] MEDS ORDERED: POTASSIUM PHOS,M-BASIC-D-BASIC 30 MMOL in NORMAL SALINE 500 ML IV ONE (09:00)
[2020-07-26] MEDS: PANTOPRAZOLE SODIUM 40 MG VIAL IV SCH (09:30)
[2020-07-26] MEDS: AMINO AC/PROTEIN HYDR/WHEY PRO 11 GM/45 ML PKT NG SCH ×2 (09:30→17:53)
[2020-07-26] MEDS: DOCUSATE SODIUM 100 MG/10 ML UDC NG SCH (09:30)
[2020-07-26] MEDS: METHYLPREDNISOLONE INJ 125 MG/2 ML SDV IV SCH (09:30)
[2020-07-26] MEDS: COLCHICINE 0.6 MG TABLET NG SCH ×2 (09:31→17:53)
[2020-07-26] MEDS ORDERED: LEVETIRACETAM 1500 MG/NACL-ISO 1,500 MG/100 ML RTUPB IV ONE (12:00)
--- NOTE | 2020-07-26 16:50 | Progress Note ---
Provider Note Provider Note: CARDIOLOGY PROGRESS NOTE by Dr. Samia Roper on 07/26/2020. SUBJECTIVE: The patient is status quo. There is no arrhythmias seen on the monitor. He still intubated and sedated. The patient is on high-dose of steroids. PHYSICAL EXAMINATION: The patient appears to be chronically ill and malnourished. Selected Entries 07/26/20 07/26/20 16:03 16:39 Heart Rate ( 71 Monitors) Respiratory 17 Rate Respiratory Non-Labored Effort Mechanically Ventilated Blood Pressure 96/56 L Blood Pressure 69 Mean O2 Sat by Pulse 100 100 Oximetry Fraction of 30 Inspired Oxygen (FIO2) HEAD: Is atraumatic normocephalic. EYES: Pupils equal reactive to light. ENT is negative. There is right facial droop present. NECK: Supple. There is no JVD. Carotids are equal there is no bruits. Lungs: Fairly clear. Heart S1-S2 is heard there is no S3 gallop. There is no S4 gallop. There is no rub. ABDOMEN: Soft nontender. There is no hepatosplenomegaly. Bowel sounds well heard. EXTREMITIES: Femorals are diminished. Leg pulses are diminished. There is no pedal edema there is wasting of the muscles of the lower xtremities. BIOLOGY SPECIMEN TECHNICIAN and psychiatric exam not performed due to recurrent patient status. Chest X-Ray 07/09/20 13:50 IMPRESSION: Stable enlarged cardiac silhouette, mild bilateral pleural effusions and bibasilar opacities, left greater than right. Head CT 07/09/20 14:42 IMPRESSION: 1. No significant interval changes since the prior examination dated 07/03/2020. No acute intracranial abnormality. 2. Chronic small vessel ischemic changes changes and mild atrophy. 3. Additional stable findings as above. EVIDENCE OF ACUTE STROKE: NO Foot X-Ray 07/10/20 00:00 IMPRESSION: SEVERE DIFFUSE DEMINERALIZATION. CHRONIC CHANGES IN THE 5TH TOE. PROGRESSIVE DESTRUCTION OF THE 2ND TOE. MAY BE DUE TO OSTEOMYELITIS. Chest X-Ray 07/10/20 16:17 IMPRESSION: 1. Interval placement of endotracheal tube, tip is approximately 3.4 cm proximal to the joselito. Nasogastric tube with the tip overlying the body of the stomach. No evidence of pneumothorax. 2. Lies, unchanged finding since the prior study dated 07/09/2020. Head CT 07/10/20 16:23 IMPRESSION: 1. No significant interval changes since the prior examinations dated 07/09/2020, 07/03/2020 and 04/12/2020. No acute intracranial abnormality. 2. Chronic mild small vessel ischemic changes. Stable appearance to the low attenuated area in the region of the right hankins radiata. Further evaluation with MRI Brain maybe helpful to exclude acute changes. 3. New finding of a fluid collection within the posterior nasopharynx which lies anterior and adjacent to the adenoids and extends into the oropharynx. Interval placement of endotracheal and nasogastric tube since the previous study dated 07/09/2020. This finding may be on an inflammatory basis, possibly due to reflux. Correlation suggested. EVIDENCE OF ACUTE STROKE: NO Chest X-Ray 07/13/20 00:00 IMPRESSION: The enteric tube is malpositioned and its tip projects at the level of the joselito within the thoracic esophagus. Otherwise unchanged radiographic appearance of the chest. Chest X-Ray 07/15/20 00:00 IMPRESSION: Repositioning of the enteric tube with the tip now projecting over the left upper quadrant. Otherwise, stable examination. Chest X-Ray 07/17/20 00:00 IMPRESSION: NO SIGNIFICANT CHANGE IN APPEARANCE OF THE CHEST. Chest X-Ray 07/17/20 12:24 IMPRESSION: SATISFACTORY POSITION OF THE ENDOTRACHEAL TUBE AND NASOGASTRIC TUBE. NO SIGNIFICANT CHANGE IN APPEARANCE OF THE CHEST. Chest X-Ray 07/23/20 00:00 IMPRESSION: No change. Chest X-Ray 07/24/20 05:00 IMPRESSION: No significant change. No pneumothorax. Chest X-Ray 07/25/20 04:00 IMPRESSION: Unchanged radiographic appearance of the chest. Labs- All tests 24 hr 07/26/20 07/26/20 07/26/20 01:08 03:30 03:30 WBC 12.6 H RBC 3.70 L Hgb 10.3 L Hct 31.5 L MCV 85 MCH 28.0 MCHC 32.8 RDW 17.0 H Plt Count 62 L Lymph % (Auto) 9.0 L Elbert % (Auto) 6.0 Eos % (Auto) 0.1 Baso % (Auto) 0.1 Absolute Neuts (auto) 10.7 H Absolute Lymphs (auto) 1.1 Absolute Monos (auto) 0.8 Absolute Eos (auto) 0.0 Absolute Basos (auto) 0.0 Seg Neutrophils % 84.8 H Carbonic Acid HCO3/H2CO3 Ratio ABG pH ABG pCO2 ABG pO2 ABG HCO3 ABG Total CO2 ABG O2 Saturation ABG Base Excess FiO2 Sodium 136.2 L Potassium 3.7 Chloride 101 Carbon Dioxide 24 Anion Gap 11 BUN 47 H Creatinine 2.40 H Est GFR ( Amer) 33 L Est GFR (MDRD) Non-Af 27 L Glucose 132 H POC Glucose 212 H Calcium 8.5 Phosphorus 0.6 L Magnesium 2.4 H Triglycerides 103 07/26/20 07/26/20 07/26/20 08:45 11:46 17:30 WBC RBC Hgb Hct MCV MCH MCHC RDW Plt Count Lymph % (Auto) Elbert % (Auto) Eos % (Auto) Baso % (Auto) Absolute Neuts (auto) Absolute Lymphs (auto) Absolute Monos (auto) Absolute Eos (auto) Absolute Basos (auto) Seg Neutrophils % Carbonic Acid 1.04 L HCO3/H2CO3 Ratio 20:1 ABG pH 7.40 ABG pCO2 34.7 L ABG pO2 100.5 H ABG HCO3 21.0 ABG Total CO2 22.0 L ABG O2 Saturation 97.6 ABG Base Excess -3.3 FiO2 30% Sodium Potassium Chloride Carbon Dioxide Anion Gap BUN Creatinine Est GFR ( Amer) Est GFR (MDRD) Non-Af Glucose POC Glucose 199 H 230 H Calcium Phosphorus Magnesium Triglycerides 07/26/20 17:34 WBC RBC Hgb Hct MCV MCH MCHC RDW Plt Count Lymph % (Auto) Elbert % (Auto) Eos % (Auto) Baso % (Auto) Absolute Neuts (auto) Absolute Lymphs (auto) Absolute Monos (auto) Absolute Eos (auto) Absolute Basos (auto) Seg Neutrophils % Carbonic Acid HCO3/H2CO3 Ratio ABG pH ABG pCO2 ABG pO2 ABG HCO3 ABG Total CO2 ABG O2 Saturation ABG Base Excess FiO2 Sodium Potassium 4.7 D Chloride Carbon Dioxide Anion Gap BUN Creatinine Est GFR ( Amer) Est GFR (MDRD) Non-Af Glucose POC Glucose Calcium Phosphorus 3.1 D Magnesium 2.2 Triglycerides IMPRESSION/RECOMMENDATION: 1. Acute hypercapnic respiratory failure. Patient intubated. 2. Hypotension: Blood pressure today is in the high 90s. He is got as yet required reinstitution of pressors. Will watch. The patient is on high-dose corticosteroid therapy. 3. End-stage renal disease on hemodialysis. 4. Possible osteomyelitis of the right foot. Recommend antibiotics. 5. Ischemic cardiomyopathy with moderately reduced LV ejection fraction. 6. Coronary artery disease, patient's troponin was elevated but this may be secondary to supply demand mismatch rather than [place] the cause is being hypotension, respiratory failure and renal failure. 7. Diabetes mellitus: Continue high-level antidiabetic treatment. 8. History of prior CVA. 9. 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 Is there is also causing respiratory muscle weakness causing hypoventilation versus central sleep apnea. Will recommend a trial dose of modanafinil. Medications reviewed. Medical regimen management plan discussed with the sampler tester. Medical decision making is of moderate complexity. 40 minutes spent as patient more than 50% of time spent in direct patient care. Will follow.
--- NOTE | 2020-07-26 18:18 | PDOC CRITICAL CARE PROG REPORT ---
General Date:: 07/26/20 ICU Day:: 8 Ventilator Day:: 8 Hospital Day:: 16 Resuscitation Status: Full Code Events in the past 12 to 24 Hours:: This 64-year-old -[place] male was originally admitted on 06/19/2020 with altered mental status. His reported that he had been demonstrating confusion for at least a couple of days prior to presentation. In addition, he presented with hypotension. He was admitted for further evaluation of possible sepsis. He was admitted to IMCU but transferred within 24 hours to the ICU after he became obtunded. pH 6.9, PCO2 130. He was intubated in the ICU. He subsequently improved and transferred out only to return about a day later (07/17/2020) again with hypotension and acute hypercapnic respiratory failure. He is an end-stage renal disease patient on hemodialysis and has a history of Guillain-Ventura syndrome. 07/23: Awake. Does not clearly follow commands. He demonstrates rhythmic movements, which are most notable involving the face (right-sided) and right arm. Remains intubated. Off sedation. Nurse reports that he continues to have copious amounts of watery diarrhea. Discussed with Dr. Tavraes (nephrology). 07/24: Resting comfortably on the ventilator. Now on sedation. No longer demonstrating rhythmic contractions. EEG delayed (no mobile service rv technician available until next week). Phosphorus 1.4. Started today on Solu-Medrol 60 mg IV every 6 hours x4 doses followed by 60 mg IV daily, directed at the patient's AIDP/CIDP. 07/25: HD this a.m. Overnight, the nursing staff reports that the patient had a bout of emesis, raising suspicion for an aspiration event. Copious endotracheal secretions are noted this morning. Platelets 76, downtrending. Still on p ropofol. During sedation vacation, the patient promptly demonstrates increased motor activity with intermittent episodes of "rhythmic movement" as previously seen. 07/26: Resting comfortably on the ventilator. ABG this a.m. suggest improvement in A-a gradient. Still demonstrates rhythmic contractions. Off sedation. Despite demonstrating rhythmic contractions (partial seizures?), the patient does seem to interact and does follow some commands. Phosphorus 0.6 this a.m., concerning for depletion of phosphorus due to seizure/tremor activity. K-Phos replacement ordered. Platelets down to 62. Review of systems relevant to events:: Neurological Reason for ICU Addmission:: Intubated and not responsive. - Medications: Medications reviewed and adjusted accordingly: Yes Physical Exam Vital Signs: Temp Pulse Resp BP Pulse Ox 97.4 F 82 12 102/57 L 100 07/26/20 16:00 07/26/20 16:03 07/26/20 16:03 07/26/20 16:00 07/26/20 16:03 Intake & Output 07/25/20 07/26/20 07/27/20 06:59 06:59 06:59 Intake Total 772 2422 100 Output Total 0 1619 0 Balance 772 803 100 Weight 62.7 kg 63.5 kg Weight/Height Weight 63.5 kg Height 1.7 m General appearance: PRESENT: no acute distress, well-developed, well-nourished Head exam: PRESENT: atraumatic, normocephalic Eye exam: PRESENT: conjunctiva pink, EOMI, PERRLA. ABSENT: scleral icterus Mouth exam: PRESENT: moist, tongue midline Neck exam: ABSENT: carotid bruit, JVD, lymphadenopathy, thyromegaly Respiratory exam: PRESENT: rales, rhonchi. ABSENT: wheezes Cardiovascular exam: PRESENT: RRR. ABSENT: diastolic murmur, rubs, systolic murmur Pulses: PRESENT: normal dorsalis pedis pul GI/Abdominal exam: PRESENT: normal bowel sounds, soft. ABSENT: distended, guarding, mass, organolmegaly, rebound, tenderness Gentrourinary exam: PRESENT: indwelling catheter Neurological exam: PRESENT: awake, CN II-XII grossly intact, motor sensory deficit, other - Pain sensation intact x4 extremities. Motor 3/5 at right upper extremity; 2/5 at left upper extremity. Bilateral lower extremity paralysis.. ABSENT: reflexes normal Skin exam: PRESENT: other - Necrotic toes Tubes/Lines: PRESENT: Endotracheal Tube, Central Line - Left IJ, Dialysis catheter - Right subclavian Laboratory/Radiographs Laboratory Results: 07/26/20 03:30 07/26/20 03:30 07/25/20 07/26/20 07/26/20 19:10 03:30 03:30 WBC 12.6 H RBC 3.70 L Hgb 10.3 L Hct 31.5 L MCV 85 MCH 28.0 MCHC 32.8 RDW 17.0 H Plt Count 62 L Seg Neutrophils % 84.8 H Carbonic Acid HCO3/H2CO3 Ratio ABG pH ABG pCO2 ABG pO2 ABG HCO3 ABG O2 Saturation ABG Base Excess FiO2 Sodium 136.2 L Potassium 4.1 3.7 Chloride 101 Carbon Dioxide 24 Anion Gap 11 BUN 47 H Creatinine 2.40 H Est GFR ( Amer) 33 L Glucose 132 H Calcium 8.5 Phosphorus 0.6 L Magnesium 2.4 H 2.4 H Triglycerides 103 07/26/20 08:45 WBC RBC Hgb Hct MCV MCH MCHC RDW Plt Count Seg Neutrophils % Carbonic Acid 1.04 L HCO3/H2CO3 Ratio 20:1 ABG pH 7.40 ABG pCO2 34.7 L ABG pO2 100.5 H ABG HCO3 21.0 ABG O2 Saturation 97.6 ABG Base Excess -3.3 FiO2 30% Sodium Potassium Chloride Carbon Dioxide Anion Gap BUN Creatinine Est GFR ( Amer) Glucose Calcium Phosphorus Magnesium Triglycerides 07/09/20 07/20/20 07/20/20 11:47 05:00 05:00 Creatine Kinase 25 L Troponin I 0.235 0.232 NT-Pro-B Natriuret Pep [id number] H Impressions: Foot X-Ray 07/10/20 00:00 IMPRESSION: SEVERE DIFFUSE DEMINERALIZATION. CHRONIC CHANGES IN THE 5TH TOE. PROGRESSIVE DESTRUCTION OF THE 2ND TOE. MAY BE DUE TO OSTEOMYELITIS. Head CT 07/10/20 16:23 IMPRESSION: 1. No significant interval changes since the prior examinations dated 07/09/2020, 07/03/2020 and 04/12/2020. No acute intracranial abnormality. 2. Chronic mild small vessel ischemic changes. Stable appearance to the low attenuated area in the region of the right hankins radiata. Further evaluation with MRI Brain maybe helpful to exclude acute changes. 3. New finding of a fluid collection within the posterior nasopharynx which lies anterior and adjacent to the adenoids and extends into the oropharynx. Interval placement of endotracheal and nasogastric tube since the previous study dated 07/09/2020. This finding may be on an inflammatory basis, possibly due to reflux. Correlation suggested. EVIDENCE OF ACUTE STROKE: NO Chest X-Ray 07/25/20 04:00 IMPRESSION: Unchanged radiographic appearance of the chest. All labs, radiographs, diagnostic studies and EKGs were personally reviewed: Yes In addition, reports of radiographic and diagnostic studies were read: Yes Assessment and Plan - Diagnosis (1) Endotracheally intubated Is this a current diagnosis for this admission?: Yes Plan: * Continue PRVC mode. * We will give a loading dose of Keppra for empiric treatment of suspected seizure activity. * Continue Solu-Medrol. In light of the patient's history of Guillain-Ventura syndrome, I suspect that he may have a chronic inflammatory demyelinating shavon yneuropathy. This is likely presenting an obstacle to his liberation from mechanical ventilatory support. In addition, the movement disorder which he demonstrates may also be hindering efforts to liberate him from mechanical ventilatory support. We need to rule out seizure versus tremor. EEG was ordered; however, EEG testing is apparently unavailable for the entire week. * Currently on levofloxacin for MSSA and E cloacae pneumonia. 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 He has been on Solu-Cortef during his hospitalization; however this dosing is not sufficient to cover for treatment of AIDP or CIDP. Solu-Medrol 60 mg IV every 6 hours x4 doses followed by 60 mg daily (do not decrease until sign of clinical benefit). Contributing to his baseline weakness, which is wheelchair bound according to . (3) Thrombocytopenia Is this a current diagnosis for this admission?: Yes Plan: * Off Pepcid. On Protonix. * Discontinue heparin. * Arixtra for DVT prophylaxis. * Will need evaluation for heparin-induced thrombocytopenia. (4) Hypomagnesemia Is this a current diagnosis for this admission?: Yes Plan: Replete (5) Anemia in chronic kidney disease (CKD) Qualifiers: Chronic kidney disease stage: on chronic dialysis Qualified Code(s): N18.6 - End stage renal disease; D63.1 - Anemia in chronic kidney disease; Z99.2 - Dependence on renal dialysis Is this a current diagnosis for this admission?: Yes (6) End stage renal disease Is this a current diagnosis for this admission?: Yes Plan: Hemodilayisis per Nephrology. (7) Hypokalemia Is this a current diagnosis for this admission?: Yes Plan: Likely due to excessive gastrointestinal loss. Replete potassium. (8) Leukocytosis Is this a current diagnosis for this admission?: Yes (9) COVID-19 ruled out by laboratory testing Is this a current diagnosis for this admission?: Yes Critical Time Critical Time (minutes): 60 Level of Care: ICU -: 1. The care of a critical patient is a dynamic process. This note is a leather goods sales representative synopsis but static in nature. The timeframe for treatments given in order is not necessarily the actual time these treatments may have been done. 2. This patient requires critical care secondary to ongoing requirements for therapy not offered or safe outside the critical care environment. Transfer to a lower level of care will result in altered life or limb morbidity and mortality. 3. Multidisciplinary rounds completed. 4. ABCDE bundle addressed.
[2020-07-26 18:27] LABS: PHOSPHORUS 3.1 mg/dL (2.5-4.5); POTASSIUM 4.7 mmol/L (3.6-5.0)
[2020-07-26] MEDS: ALBUMIN HUMAN 12.5 GM/50 ML RTUINJ IV SCH ×2 (20:32→21:52)
[2020-07-26] MEDS ORDERED: ENOXAPARIN SODIUM INJ 80 MG/0.8 ML DISP.SYRIN SUBCUT ONE (21:49)
[2020-07-26] MEDS: LATANOPROST 0.005% OPH SOLN 2.5 ML OU SCH (21:57)
[2020-07-26] MEDS ORDERED: FENTANYL CITRATE INJ/PF 100 MCG/2 ML AMPUL ONE (23:13)
[2020-07-26] MEDS ORDERED: FENTANYL CITRATE INJ/PF 100 MCG/2 ML AMPUL IV ONE (23:14)
[2020-07-26] MEDS ORDERED: NORMAL SALINE 1000 ML 500 ML IV ONE (23:14)
[2020-07-27] MEDS: ALBUTEROL SULFATE 0.083% NEB 2.5 MG/3 ML AMPUL NEB SCH ×6 (00:05→20:05)
[2020-07-27] MEDS: METOCLOPRAMIDE HCL ORAL SOLN 10 MG/10 ML UDCUP NG SCH ×5 (00:40→23:39)
[2020-07-27] MEDS: INSULIN REG, HUMAN 100 UNIT/ML 3 ML VIAL (PYX) SUBCUT SCH ×5 (00:40→23:39)
[2020-07-27] MEDS: VANCOMYCIN HCL INJ 500 MG VIAL NG SCH ×5 (00:41→23:39)
[2020-07-27] MEDS: ALBUMIN HUMAN 12.5 GM/50 ML RTUINJ IV SCH ×2 (03:30→04:47)
[2020-07-27 03:58] LABS: ARTERIAL BLOOD BASE EXCESS -4.3 mmol/L; ARTERIAL BLOOD H2CO3 1.16 mmol/L (1.05-1.35); ARTERIAL BLOOD HCO3 20.9 mmol/L (20-24); ARTERIAL BLOOD O2 SATURATION 96.6 % (94-98); ARTERIAL BLOOD PCO2 38.7 mmHg (35-45); ARTERIAL BLOOD PH 7.35 (7.35-7.45); ARTERIAL BLOOD PO2 90.4 mmHg (80-100); ARTERIAL BLOOD TOTAL CO2 22.1 mmol/L (23-27)
[2020-07-27 03:59] LABS: ARTERIAL BLOOD FIO2 30%
[2020-07-27 04:04] LABS: ABSOLUTE LYMPHOCYTES (AUTO) 0.9 10^3/uL (0.5-4.7); ABSOLUTE MONOCYTES (AUTO) 0.7 10^3/uL (0.1-1.4); ABSOLUTE NEUT (AUTO) 8.1 10^3/uL (1.7-8.2); BASOPHILS % (AUTO) 0.1 % (0-2); HEMATOCRIT 29.4 % (37.9-51.0); HEMOGLOBIN 9.9 g/dL (13.5-17.0); LYMPHOCYTES % (AUTO) 9.6 % (13-45); MEAN CORPUSCULAR HEMOGLOBIN 28.7 pg (27.0-33.4); MEAN CORPUSCULAR HGB CONC 33.6 g/dL (32.0-36.0); MEAN CORPUSCULAR VOLUME 85 fl (80-97); RED BLOOD COUNT 3.45 10^6/uL (4.35-5.55); RED CELL DISTRIBUTION WIDTH 16.8 % (11.5-14.0); SEGMENTED NEUTROPHILS % (AUTO) 83.3 % (42-78); TOTAL CELLS COUNTED % (AUTO) 100 %; WHITE BLOOD COUNT 9.7 10^3/uL (4.0-10.5)
[2020-07-27 04:16] LABS: ALKALINE PHOSPHATASE 108 U/L (38-126); ANION GAP 14 (5-19); ASPARTATE AMINO TRANSFERASE 16 U/L (17-59); BILIRUBIN,DIRECT 0.9 mg/dL (0.0-0.4); BILIRUBIN,TOTAL 0.9 mg/dL (0.2-1.3); BLOOD UREA NITROGEN 60 mg/dL (7-20); CALCIUM 8.3 mg/dL (8.4-10.2); CARBON DIOXIDE 22 mmol/L (22-30); CHLORIDE 102 mmol/L (98-107); GLUCOSE 179 mg/dL (75-110); PHOSPHORUS 2.7 mg/dL (2.5-4.5); POTASSIUM 3.9 mmol/L (3.6-5.0); TOTAL PROTEIN 6.2 g/dL (6.3-8.2)
[2020-07-27 04:33] LABS: PLATELET COUNT 62 10^3/uL (150-450)
[2020-07-27] MEDS ORDERED: CALCIUM GLUC IN NACL, ISO-OSM 1 GM/50 ML RTUPB IV ONE (05:04)
--- NOTE | 2020-07-27 08:35 | RADIOLOGY REPORT (SQ) ---
EXAM DESCRIPTION: CHEST SINGLE VIEW IMAGES COMPLETED DATE/TIME: 07/27/2020 6:11 am REASON FOR STUDY: ETT tube COMPARISON: 07/25/2020 EXAM PARAMETERS: NUMBER OF VIEWS: One view. TECHNIQUE: Single frontal radiographic view of the chest acquired. RADIATION DOSE: NA LIMITATIONS: None. FINDINGS: LUNGS AND PLEURA: Persistent bilateral pleural effusions with associated compressive atele ctasis versus consolidation. There is a focus of extra thoracic lucency which may be related to tonie ent positioning. No pneumothorax. MEDIASTINUM AND HILAR STRUCTURES: No masses. Contour normal. HEART AND VASCULAR STRUCTURES: Heart normal in size. Normal vasculature. BONES: No acute findings. HARDWARE: Midline surgical changes. Enteric tube tip and proximal port project subdiaphragmatically. Stable position and appearance of a previously demonstrated right internal jugular vascular access catheter, left subclavian vascular access catheter, and endotracheal tube. OTHER: No other significant finding. IMPRESSION: 1. Stable pulmonary exam. 2. A focus of extra thoracic lucency adjacent to the right lower chest wall on the frontal radiograp h may be related to technique/patient positioning ; subcutaneous emphysema may have a similar appeara nce. Consider repeat imaging with attention to patient positioning for improved characterization. 3. Stable lines and tubes. TECHNICAL DOCUMENTATION: JOB ID: [id number] 2010 [employer]- All Rights Reserved Reading location - IP/workstation name: [email or web address]
[2020-07-27] MEDS: BUDESONIDE NEB 0.25 MG/2 ML AMPUL NEB SCH ×2 (08:38→20:05)
[2020-07-27] MEDS: FONDAPARINUX SODIUM INJ 2.5 MG/0.5 ML DISP.SYRIN SUBCUT SCH (09:26)
[2020-07-27] MEDS: DOCUSATE SODIUM 100 MG/10 ML UDC NG SCH (09:26)
[2020-07-27] MEDS: METHYLPREDNISOLONE INJ 125 MG/2 ML SDV IV SCH (09:26)
[2020-07-27] MEDS: PANTOPRAZOLE SODIUM 40 MG VIAL IV SCH (09:27)
[2020-07-27] MEDS: AMINO AC/PROTEIN HYDR/WHEY PRO 11 GM/45 ML PKT NG SCH ×2 (09:27→18:02)
[2020-07-27] MEDS: COLCHICINE 0.6 MG TABLET NG SCH ×2 (09:27→18:02)
[2020-07-27] MEDS ORDERED: EPOETIN ALFA-EPBX 5,000 UNITS (ESRD) in SYRINGE IV PRN ×3 (11:46)
[2020-07-27] MEDS ORDERED: HEPARIN SOD (PORCINE) 1,000 UNIT/ML 10 ML VIAL IV ONE (12:00)
[2020-07-27 15:19] LABS: ARTERIAL BLOOD BASE EXCESS -3.1 mmol/L; ARTERIAL BLOOD H2CO3 0.98 mmol/L (1.05-1.35); ARTERIAL BLOOD HCO3 20.7 mmol/L (20-24); ARTERIAL BLOOD O2 SATURATION 98.3 % (94-98); ARTERIAL BLOOD PCO2 32.5 mmHg (35-45); ARTERIAL BLOOD PH 7.42 (7.35-7.45); ARTERIAL BLOOD PO2 113.9 mmHg (80-100); ARTERIAL BLOOD TOTAL CO2 21.7 mmol/L (23-27)
[2020-07-27 15:21] LABS: ARTERIAL BLOOD FIO2 30%
--- NOTE | 2020-07-27 16:11 | PDOC PROGRESS REPORT ---
Subjective Progress Note for:: 07/27/20 Subjective:: I saw the patient during dialysis at around noontime today. Patient continues to be intubated but he is now awake. He is noted to be a little bit more responsive although he did not really respond much to me when I saw him. So far he is hemodynamically stable and was tolerating dialysis without much issues. Currently we are not doing any ultrafiltration since the patient has not much intake. Reason For Visit: ASPIRATION, HYPERCARBIC RESPIRATORY FAILURE Physical Exam Vital Signs: Temp Pulse Resp BP Pulse Ox 98.2 F 86 19 152/52 H 100 07/27/20 12:00 07/27/20 12:09 07/27/20 14:10 07/27/20 14:10 07/27/20 14:10 Intake & Output 07/26/20 07/27/20 07/28/20 06:59 06:59 06:59 Intake Total 2422 1300 0 Output Total 1619 460 400 Balance 803 840 -400 Weight 63.5 kg 62.9 kg Vitals during dialysis: Blood pressure 149/81, heart rate of 95, respiration of 19, oxygen saturation 100% with FiO2 of 30%. Current blood flow on dialysis a bout 350 mL/min and dialysate flow rate of 800 mL/min using the patient's right IJ CVC. Exam: General appearance: PRESENT: Intubated but awake Head exam: PRESENT: atraumatic, normocephalic Eye exam: PRESENT: conjunctiva pale, PERRLA. ABSENT: scleral icterus Neck exam: ABSENT: JVD Respiratory exam: PRESENT: Slightly coarse breath sounds. ABSENT: crackles, rales, rhonchi, unlabored, wheezes Cardiovascular exam: PRESENT: Regular rate rhythm -+S1, +S2. ABSENT: diastolic murmur, systolic murmur GI/Abdominal exam: PRESENT: normal bowel sounds, soft. ABSENT: guarding, mass, tenderness Extremities exam: Grade 1 bilateral lower extremity pitting edema Neurological exam: PRESENT: Awake with very minimal response Skin exam: PRESENT: dry, warm, Cardiovascular exam: PRESENT: +S1, +S2 GI/Abdominal exam: PRESENT: normal bowel sounds, soft. ABSENT: organomegaly, tenderness Results Laboratory Results: 07/27/20 03:40 07/27/20 03:40 07/26/20 07/27/20 07/27/20 17:34 03:40 03:40 WBC 9.7 RBC 3.45 L Hgb 9.9 L Hct 29.4 L MCV 85 MCH 28.7 MCHC 33.6 RDW 16.8 H Plt Count 62 L Seg Neutrophils % 83.3 H Carbonic Acid 1.16 HCO3/H2CO3 Ratio 18:1 ABG pH 7.35 ABG pCO2 38.7 ABG pO2 90.4 ABG HCO3 20.9 ABG O2 Saturation 96.6 ABG Base Excess -4.3 FiO2 30% Sodium Potassium 4.7 D Chloride Carbon Dioxide Anion Gap BUN Creatinine Est GFR ( Amer) Glucose Calcium Ionized Calcium Mak 1.13 L Phosphorus 3.1 D Magnesium 2.2 Total Bilirubin AST Alkaline Phosphatase Total Protein Albumin 07/27/20 07/27/20 03:40 15:05 WBC RBC Hgb Hct MCV MCH MCHC RDW Plt Count Seg Neutrophils % Carbonic Acid 0.98 L HCO3/H2CO3 Ratio 21:1 ABG pH 7.42 ABG pCO2 32.5 L ABG pO2 113.9 H ABG HCO3 20.7 ABG O2 Saturation 98.3 H ABG Base Excess -3.1 FiO2 30% Sodium 137.7 Potassium 3.9 Chloride 102 Carbon Dioxide 22 Anion Gap 14 BUN 60 H Creatinine 2.64 H Est GFR ( Amer) 30 L Glucose 179 H Calcium 8.3 L Ionized Calcium Mak Phosphorus 2.7 Magnesium 2.2 Total Bilirubin 0.9 AST 16 L Alkaline Phosphatase 108 Total Protein 6.2 L Albumin 3.0 L 07/09/20 07/20/20 07/20/20 11:47 05:00 05:00 Creatine Kinase 25 L Troponin I 0.235 0.232 NT-Pro-B Natriuret Pep [id number] H Impressions: Foot X-Ray 07/10/20 00:00 IMPRESSION: SEVERE DIFFUSE DEMINERALIZATION. CHRONIC CHANGES IN THE 5TH TOE. PROGRESSIVE DESTRUCTION OF THE 2ND TOE. MAY BE DUE TO OSTEOMYELITIS. Head CT 07/10/20 16:23 IMPRESSION: 1. No significant interval changes since the prior examinations dated 07/09/2020, 07/03/2020 and 04/12/2020. No acute intracranial abnormality. 2. Chronic mild small vessel ischemic changes. Stable appearance to the low attenuated area in the region of the right hankins radiata. Further evaluation with MRI Brain maybe helpful to exclude acute changes. 3. New finding of a fluid collection within the posterior nasopharynx which lies anterior and adjacent to the adenoids and extends into the oropharynx. Interval placement of endotracheal and nasogastric tube since the previous study dated 07/09/2020. This finding may be on an inflammatory basis, possibly due to reflux. Correlation suggested. EVIDENCE OF ACUTE STROKE: NO Chest X-Ray 07/27/20 05:00 IMPRESSION: 1. Stable pulmonary exam. 2. A focus of extra thoracic lucency adjacent to the right lower chest wall on the frontal radiograph may be related to technique/patient positioning ; subcutaneous emphysema may have a similar appearance. Consider repeat imaging with attention to patient positioning for improved characterization. 3. Stable lines and tubes. Assessment & Plan - Diagnosis (1) ESRD on hemodialysis Is this a current diagnosis for this admission?: Yes Plan: We will do dialysis today for 2 hours, using the patient's right IJ PermCath, w ith 3 potassium bath, blood flow rate of 350 mL per minute, dialysate flow rate of 800 mL per minute, ultrafiltration none, no heparin and Procrit with 5000 units during dialysis intravenously. We will continue to support the patient with hemodialysis as necessary. (2) Acute respiratory failure with hypercapnia Is this a current diagnosis for this admission?: Yes Plan: Exact etiology uncertain. 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 Other consideration currently is chronic inflammatory demyelinating shavon yneuropathy. Defer to ammunition components inspector for management. Currently being given Solu- Medrol 60 mg IV every 6 hours. (3) Hypokalemia Is this a current diagnosis for this admission?: Yes Plan: Currently within normal limits. Replace as necessary. We are using high potassium bath on dialysis. (4) Metabolic encephalopathy Is this a current diagnosis for this admission?: Yes Plan: Patient appears to be waking up and responding slowly. 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 (7) Hypoalbuminemia Is this a current diagnosis for this admission?: Yes (8) Anemia in chronic kidney disease (CKD) Qualifiers: Chronic kidney disease stage: on chronic dialysis Qualified Code(s): N18.6 - End stage renal disease; D63.1 - Anemia in chronic kidney disease; Z99.2 - Dependence on renal dialysis Is this a current diagnosis for this admission?: Yes Plan: Retacrit during dialysis as needed. (9) Hypotension Qualifiers: Hypotension type: idiopathic hypotension Qualified Code(s): I95.0 - Idiopathic hypotension Is this a current diagnosis for this admission?: Yes Plan: Resolved with acceptable blood pressure without any pressors. (10) Diabetes mellitus, type II Qualifiers: Diabetes mellitus long term care pharmacist insulin use: without long term care pharmacist use Is this a current diagnosis for this admission?: Yes (11) Hypophosphatemia Is this a current diagnosis for this admission?: Yes Plan: Replaced and resolved. Likely contributory to respiratory depression and weakness and failure of weaning from mechanical ventilation. (12) Thrombocytopenia Is this a current diagnosis for this admission?: Yes - Time Time with patient: 15-25 minutes
--- NOTE | 2020-07-27 19:28 | Progress Note ---
Provider Note Provider Note: CARDIOLOGY PROGRESS NOTE by Dr. Samia Roper on 07/27/2020. SUBJECTIVE: The patient is status quo. There is no arrhythmias seen on the monitor. He still intubated and sedated. The patient is on steroids. He continues to have asymptomatic hemodynamically nonsignificant Mobitz type I second-degree AV block. Patient appears to be chronically ill, emaciated and malnourished. Selected Entries 07/27/20 07/27/20 15:32 16:00 Heart Rate ( 86 Monitors) Respiratory 17 19 Rate Blood Pressure 134/81 H Blood Pressure 98 Mean O2 Sat by Pulse 100 Oximetry Oxygen Delivery Mechanical Method ( Ventilator includes room air) Fraction of 30 Inspired Oxygen (FIO2) PHYSICAL EXAMINATION: The patient appears to be chronically ill and malnourished. HEAD: Is atraumatic normocephalic. EYES: Pupils equal reactive to light. ENT is negative. There is right facial droop present. NECK: Supple. There is no JVD. Carotids are equal there is no bruits. Lungs: Fairly clear. Heart S1-S2 is heard there is no S3 gallop. There is no S4 gallop. There is no rub. ABDOMEN: Soft nontender. There is no hepatosplenomegaly. Bowel sounds well heard. EXTREMITIES: Femorals are diminished. Leg pulses are diminished. There is no pedal edema there is wasting of the muscles of the lower xtremities. [employer] and psychiatric exam not performed due to recurrent patient status. Labs- Entire Visit 07/09/20 07/09/20 07/09/20 11:47 11:47 11:47 WBC 4.0 RBC 4.50 Hgb 13.2 L Hct 42.1 MCV 94 MCH 29.3 MCHC 31.3 L RDW 17.0 H Plt Count 122 L Lymph % (Auto) 42.0 [place] % (Auto) 8.7 Eos % (Auto) 1.4 Baso % (Auto) 1.3 Absolute Neuts (auto) 1.8 Absolute Lymphs (auto) 1.7 Absolute Monos (auto) 0.3 Absolute Eos (auto) 0.1 Absolute Basos (auto) 0.1 Total Counted Seg Neutrophils % 46.6 Seg Neuts % (Manual) Lymphocytes % (Manual) Monocytes % (Manual) Eosinophils % (Manual) Basophils % (Manual) Abs Neuts (Manual) Abs Lymphs (Manual) Abs Monocytes (Manual) Absolute Eos (Manual) Abs Basophils (Manual) Toxic Granulation Toxic Vacuolation Clumped Platelets Platelet Comment Poikilocytosis Anisocytosis Tear Drop Cells PT INR APTT Fibrinogen D-Dimer Carbonic Acid HCO3/H2CO3 Ratio ABG pH ABG pCO2 ABG pO2 ABG HCO3 ABG Total CO2 ABG O2 Saturation ABG Base Excess FiO2 Sodium 141.5 Potassium 3.6 Chloride 100 Carbon Dioxide 27 Anion Gap 15 BUN 28 H Creatinine 3.98 H Est GFR ( Amer) 18 L Est GFR (Non-Af Amer) Est GFR (MDRD) Non-Af 15 L Glucose 116 H POC Glucose Calcium 9.6 Ionized Calcium Mak Phosphorus Magnesium 1.9 Total Bilirubin 1.1 Direct Bilirubin 0.8 H Neonat Total Bilirubin Not Reportable Neonat Direct Bilirubin Not Reportable Neonat Indirect Bili Not Reportable AST 22 ALT 5 Alkaline Phosphatase 164 H Ammonia Creatine Kinase Troponin I NT-Pro-B Natriuret Pep Total Protein 9.9 H Albumin 4.0 Triglycerides Lipase 16.1 L EGFR Procalcitonin TSH Free T4 Cortisol AM Sample Cortisol PM Sample Stl C. Difficile GDH Ag Stl C.difficile Tox A&B Stl C.difficile Tox PCR Serum Alcohol < 10 SARS-CoV-2 (PCR) 07/09/20 07/09/20 07/09/20 11:47 12:26 18:50 WBC RBC Hgb Hct MCV MCH MCHC RDW Plt Count Lymph % (Auto) [place] % (Auto) Eos % (Auto) Baso % (Auto) Absolute Neuts (auto) Absolute Lymphs (auto) Absolute Monos (auto) Absolute Eos (auto) Absolute Basos (auto) Total Counted Seg Neutrophils % Seg Neuts % (Manual) Lymphocytes % (Manual) Monocytes % (Manual) Eosinophils % (Manual) Basophils % (Manual) Abs Neuts (Manual) Abs Lymphs (Manual) Abs Monocytes (Manual) Absolute Eos (Manual) Abs Basophils (Manual) Toxic Granulation Toxic Vacuolation Clumped Platelets Platelet Comment Poikilocytosis Anisocytosis Tear Drop Cells PT INR APTT Fibrinogen D-Dimer Carbonic Acid HCO3/H2CO3 Ratio ABG pH ABG pCO2 ABG pO2 ABG HCO3 ABG Total CO2 ABG O2 Saturation ABG Base Excess FiO2 Sodium Cancelled Potassium Cancelled Chloride Cancelled Carbon Dioxide Cancelled Anion Gap Cancelled BUN Cancelled Creatinine Cancelled Est GFR ( Amer) Cancelled Est GFR (Non-Af Amer) Cancelled Est GFR (MDRD) Non-Af Cancelled Glucose Cancelled POC Glucose 88 Calcium Cancelled Ionized Calcium Mak Phosphorus Magnesium Total Bilirubin Direct Bilirubin Neonat Total Bilirubin Neonat Direct Bilirubin Neonat Indirect Bili AST ALT Alkaline Phosphatase Ammonia Creatine Kinase Troponin I 0.235 NT-Pro-B Natriuret Pep [id number] H Total Protein Albumin Triglycerides Lipase EGFR Cancelled Procalcitonin TSH Free T4 Cortisol AM Sample Cortisol PM Sample Stl C. Difficile GDH Ag Stl C.difficile Tox A&B Stl C.difficile Tox PCR Serum Alcohol SARS-CoV-2 (PCR) 07/09/20 07/09/20 07/10/20 20:23 20:53 03:46 WBC 4.0 RBC 4.34 L Hgb 12.7 L Hct 40.1 MCV 92 MCH 29.2 MCHC 31.6 L RDW 17.0 H Plt Count 104 L Lymph % (Auto) 34.3 [place] % (Auto) 11.2 Eos % (Auto) 1.1 Baso % (Auto) 0.8 Absolute Neuts (auto) 2.1 Absolute Lymphs (auto) 1.4 Absolute Monos (auto) 0.4 Absolute Eos (auto) 0.0 Absolute Basos (auto) 0.0 Total Counted Seg Neutrophils % 52.6 Seg Neuts % (Manual) Lymphocytes % (Manual) Monocytes % (Manual) Eosinophils % (Manual) Basophils % (Manual) Abs Neuts (Manual) Abs Lymphs (Manual) Abs Monocytes (Manual) Absolute Eos (Manual) Abs Basophils (Manual) Toxic Granulation Toxic Vacuolation Clumped Platelets Platelet Comment Poikilocytosis Anisocytosis Tear Drop Cells PT INR APTT Fibrinogen D-Dimer Carbonic Acid HCO3/H2CO3 Ratio ABG pH ABG pCO2 ABG pO2 ABG HCO3 ABG Total CO2 ABG O2 Saturation ABG Base Excess FiO2 Sodium 140.0 Potassium 3.7 Chloride 102 Carbon Dioxide 26 Anion Gap 12 BUN 30 H Creatinine 3.95 H Est GFR ( Amer) 19 L Est GFR (Non-Af Amer) Est GFR (MDRD) Non-Af 15 L Glucose 112 H POC Glucose 95 Calcium 9.2 Ionized Calcium Mak Phosphorus Magnesium Total Bilirubin Direct Bilirubin Neonat Total Bilirubin Neonat Direct Bilirubin Neonat Indirect Bili AST ALT Alkaline Phosphatase Ammonia Creatine Kinase Troponin I NT-Pro-B Natriuret Pep Total Protein Albumin Triglycerides Lipase EGFR Procalcitonin TSH Free T4 Cortisol AM Sample Cortisol PM Sample Stl C. Difficile GDH Ag Stl C.difficile Tox A&B Stl C.difficile Tox PCR Serum Alcohol SARS-CoV-2 (PCR) 07/10/20 07/10/20 07/10/20 03:46 03:46 07:25 WBC RBC Hgb Hct MCV MCH MCHC RDW Plt Count Lymph % (Auto) [place] % (Auto) Eos % (Auto) Baso % (Auto) Absolute Neuts (auto) Absolute Lymphs (auto) Absolute Monos (auto) Absolute Eos (auto) Absolute Basos (auto) Total Counted Seg Neutrophils % Seg Neuts % (Manual) Lymphocytes % (Manual) Monocytes % (Manual) Eosinophils % (Manual) Basophils % (Manual) Abs Neuts (Manual) Abs Lymphs (Manual) Abs Monocytes (Manual) Absolute Eos (Manual) Abs Basophils (Manual) Toxic Granulation Toxic Vacuolation Clumped Platelets Platelet Comment Poikilocytosis Anisocytosis Tear Drop Cells PT INR APTT Fibrinogen D-Dimer Carbonic Acid HCO3/H2CO3 Ratio ABG pH ABG pCO2 ABG pO2 ABG HCO3 ABG Total CO2 ABG O2 Saturation ABG Base Excess FiO2 Sodium Potassium Chloride Carbon Dioxide Anion Gap BUN Creatinine Est GFR ( Amer) Est GFR (Non-Af Amer) Est GFR (MDRD) Non-Af Glucose POC Glucose 59 L Calcium Ionized Calcium Mak Phosphorus Magnesium 1.8 Total Bilirubin Direct Bilirubin Neonat Total Bilirubin Neonat Direct Bilirubin Neonat Indirect Bili AST ALT Alkaline Phosphatase Ammonia Creatine Kinase Troponin I NT-Pro-B Natriuret Pep Total Protein Albumin Triglycerides 140 Lipase EGFR Procalcitonin TSH Free T4 Cortisol AM Sample Cortisol PM Sample Stl C. Difficile GDH Ag Stl C.difficile Tox A&B Stl C.difficile Tox PCR Serum Alcohol SARS-CoV-2 (PCR) 07/10/20 07/10/20 07/10/20 07:54 08:12 08:33 WBC RBC Hgb Hct MCV MCH MCHC RDW Plt Count Lymph % (Auto) [place] % (Auto) Eos % (Auto) Baso % (Auto) Absolute Neuts (auto) Absolute Lymphs (auto) Absolute Monos (auto) Absolute Eos (auto) Absolute Basos (auto) Total Counted Seg Neutrophils % Seg Neuts % (Manual) Lymphocytes % (Manual) Monocytes % (Manual) Eosinophils % (Manual) Basophils % (Manual) Abs Neuts (Manual) Abs Lymphs (Manual) Abs Monocytes (Manual) Absolute Eos (Manual) Abs Basophils (Manual) Toxic Granulation Toxic Vacuolation Clumped Platelets Platelet Comment Poikilocytosis Anisocytosis Tear Drop Cells PT INR APTT Fibrinogen D-Dimer Carbonic Acid HCO3/H2CO3 Ratio ABG pH ABG pCO2 ABG pO2 ABG HCO3 ABG Total CO2 ABG O2 Saturation ABG Base Excess FiO2 Sodium Potassium Chloride Carbon Dioxide Anion Gap BUN Creatinine Est GFR ( Amer) Est GFR (Non-Af Amer) Est GFR (MDRD) Non-Af Glucose POC Glucose 56 L 61 L 72 Calcium Ionized Calcium Mak Phosphorus Magnesium Total Bilirubin Direct Bilirubin Neonat Total Bilirubin Neonat Direct Bilirubin Neonat Indirect Bili AST ALT Alkaline Phosphatase Ammonia Creatine Kinase Troponin I NT-Pro-B Natriuret Pep Total Protein Albumin Triglycerides Lipase EGFR Procalcitonin TSH Free T4 Cortisol AM Sample Cortisol PM Sample Stl C. Difficile GDH Ag Stl C.difficile Tox A&B Stl C.difficile Tox PCR Serum Alcohol SARS-CoV-2 (PCR) 07/10/20 07/10/20 07/10/20 08:55 11:47 14:30 WBC RBC Hgb Hct MCV MCH MCHC RDW Plt Count Lymph % (Auto) [place] % (Auto) Eos % (Auto) Baso % (Auto) Absolute Neuts (auto) Absolute Lymphs (auto) Absolute Monos (auto) Absolute Eos (auto) Absolute Basos (auto) Total Counted Seg Neutrophils % Seg Neuts % (Manual) Lymphocytes % (Manual) Monocytes % (Manual) Eosinophils % (Manual) Basophils % (Manual) Abs Neuts (Manual) Abs Lymphs (Manual) Abs Monocytes (Manual) Absolute Eos (Manual) Abs Basophils (Manual) Toxic Granulation Toxic Vacuolation Clumped Platelets Platelet Comment Poikilocytosis Anisocytosis Tear Drop Cells PT INR APTT Fibrinogen D-Dimer Carbonic Acid HCO3/H2CO3 Ratio ABG pH ABG pCO2 ABG pO2 ABG HCO3 ABG Total CO2 ABG O2 Saturation ABG Base Excess FiO2 Sodium Potassium Chloride Carbon Dioxide Anion Gap BUN Creatinine Est GFR ( Amer) Est GFR (Non-Af Amer) Est GFR (MDRD) Non-Af Glucose POC Glucose 82 91 102 Calcium Ionized Calcium Mak Phosphorus Magnesium Total Bilirubin Direct Bilirubin Neonat Total Bilirubin Neonat Direct Bilirubin Neonat Indirect Bili AST ALT Alkaline Phosphatase Ammonia Creatine Kinase Troponin I NT-Pro-B Natriuret Pep Total Protein Albumin Triglycerides Lipase EGFR Procalcitonin TSH Free T4 Cortisol AM Sample Cortisol PM Sample Stl C. Difficile GDH Ag Stl C.difficile Tox A&B Stl C.difficile Tox PCR Serum Alcohol SARS-CoV-2 (PCR) 07/10/20 07/10/20 07/10/20 14:48 14:51 23:37 WBC RBC Hgb Hct MCV MCH MCHC RDW Plt Count Lymph % (Auto) [place] % (Auto) Eos % (Auto) Baso % (Auto) Absolute Neuts (auto) Absolute Lymphs (auto) Absolute Monos (auto) Absolute Eos (auto) Absolute Basos (auto) Total Counted Seg Neutrophils % Seg Neuts % (Manual) Lymphocytes % (Manual) Monocytes % (Manual) Eosinophils % (Manual) Basophils % (Manual) Abs Neuts (Manual) Abs Lymphs (Manual) Abs Monocytes (Manual) Absolute Eos (Manual) Abs Basophils (Manual) Toxic Granulation Toxic Vacuolation Clumped Platelets Platelet Comment Poikilocytosis Anisocytosis Tear Drop Cells PT INR APTT Fibrinogen D-Dimer Carbonic Acid 3.93 H 0.82 L HCO3/H2CO3 Ratio 7:1 25:1 ABG pH 6.98 L* 7.51 H ABG pCO2 130.4 H* 27.1 L ABG pO2 171.1 H 105.3 H ABG HCO3 29.8 H 21.0 ABG Total CO2 33.8 H 21.9 L ABG O2 Saturation 98.0 98.3 H ABG Base Excess -5.0 -0.7 FiO2 1.5L 40% Sodium Potassium Chloride Carbon Dioxide Anion Gap BUN Creatinine Est GFR ( Amer) Est GFR (Non-Af Amer) Est GFR (MDRD) Non-Af Glucose POC Glucose 196 H Calcium Ionized Calcium Mak Phosphorus Magnesium Total Bilirubin Direct Bilirubin Neonat Total Bilirubin Neonat Direct Bilirubin Neonat Indirect Bili AST ALT Alkaline Phosphatase Ammonia Creatine Kinase Troponin I NT-Pro-B Natriuret Pep Total Protein Albumin Triglycerides Lipase EGFR Procalcitonin TSH Free T4 Cortisol AM Sample Cortisol PM Sample Stl C. Difficile GDH Ag Stl C.difficile Tox A&B Stl C.difficile Tox PCR Serum Alcohol SARS-CoV-2 (PCR) 07/11/20 07/11/20 07/11/20 03:48 03:48 03:48 WBC 4.3 RBC 4.85 Hgb 14.1 Hct 43.3 MCV 89 MCH 29.1 MCHC 32.5 RDW 16.6 H Plt Count 105 L Lymph % (Auto) Not Reportable [place] % (Auto) Not Reportable Eos % (Auto) Not Reportable Baso % (Auto) Not Reportable Absolute Neuts (auto) Not Reportable Absolute Lymphs (auto) Not Reportable Absolute Monos (auto) Not Reportable Absolute Eos (auto) Not Reportable Absolute Basos (auto) Not Reportable Total Counted 100 Seg Neutrophils % Not Reportable Seg Neuts % (Manual) 54 Lymphocytes % (Manual) 38 Monocytes % (Manual) 4 Eosinophils % (Manual) 3 Basophils % (Manual) 1 Abs Neuts (Manual) 2.3 Abs Lymphs (Manual) 1.6 Abs Monocytes (Manual) 0.2 Absolute Eos (Manual) 0.1 Abs Basophils (Manual) 0.0 Toxic Granulation Toxic Vacuolation PRESENT Clumped Platelets Platelet Comment DECREASED Poikilocytosis SLIGHT Anisocytosis 1+ Tear Drop Cells PT INR APTT Fibrinogen D-Dimer Carbonic Acid HCO3/H2CO3 Ratio ABG pH ABG pCO2 ABG pO2 ABG HCO3 ABG Total CO2 ABG O2 Saturation ABG Base Excess FiO2 Sodium 136.7 L Potassium 3.9 Chloride 104 Carbon Dioxide 20 L Anion Gap 13 BUN 38 H Creatinine 4.41 H Est GFR ( Amer) 16 L Est GFR (Non-Af Amer) Est GFR (MDRD) Non-Af 14 L Glucose 78 POC Glucose Calcium 8.9 Ionized Calcium Mak Phosphorus Magnesium 1.8 Total Bilirubin Direct Bilirubin Neonat Total Bilirubin Neonat Direct Bilirubin Neonat Indirect Bili AST ALT Alkaline Phosphatase Ammonia Creatine Kinase Troponin I NT-Pro-B Natriuret Pep Total Protein Albumin Triglycerides Lipase EGFR Procalcitonin TSH 1.95 Free T4 1.93 Cortisol AM Sample Cortisol PM Sample Stl C. Difficile GDH Ag Stl C.difficile Tox A&B Stl C.difficile Tox PCR Serum Alcohol SARS-CoV-2 (PCR) 07/11/20 07/11/20 07/11/20 04:37 05:50 11:39 WBC RBC Hgb Hct MCV MCH MCHC RDW Plt Count Lymph % (Auto) [place] % (Auto) Eos % (Auto) Baso % (Auto) Absolute Neuts (auto) Absolute Lymphs (auto) Absolute Monos (auto) Absolute Eos (auto) Absolute Basos (auto) Total Counted Seg Neutrophils % Seg Neuts % (Manual) Lymphocytes % (Manual) Monocytes % (Manual) Eosinophils % (Manual) Basophils % (Manual) Abs Neuts (Manual) Abs Lymphs (Manual) Abs Monocytes (Manual) Absolute Eos (Manual) Abs Basophils (Manual) Toxic Granulation Toxic Vacuolation Clumped Platelets Platelet Comment Poikilocytosis Anisocytosis Tear Drop Cells PT INR APTT Fibrinogen D-Dimer Carbonic Acid HCO3/H2CO3 Ratio ABG pH ABG pCO2 ABG pO2 ABG HCO3 ABG Total CO2 ABG O2 Saturation ABG Base Excess FiO2 Sodium Potassium Chloride Carbon Dioxide Anion Gap BUN Creatinine Est GFR ( Amer) Est GFR (Non-Af Amer) Est GFR (MDRD) Non-Af Glucose POC Glucose 77 66 L 52 L Calcium Ionized Calcium Mak Phosphorus Magnesium Total Bilirubin Direct Bilirubin Neonat Total Bilirubin Neonat Direct Bilirubin Neonat Indirect Bili AST ALT Alkaline Phosphatase Ammonia Creatine Kinase Troponin I NT-Pro-B Natriuret Pep Total Protein Albumin Triglycerides Lipase EGFR Procalcitonin TSH Free T4 Cortisol AM Sample Cortisol PM Sample Stl C. Difficile GDH Ag Stl C.difficile Tox A&B Stl C.difficile Tox PCR Serum Alcohol SARS-CoV-2 (PCR) 07/11/20 07/11/20 07/11/20 15:45 15:45 17:55 WBC RBC Hgb Hct MCV MCH MCHC RDW Plt Count Lymph % (Auto) [place] % (Auto) Eos % (Auto) Baso % (Auto) Absolute Neuts (auto) Absolute Lymphs (auto) Absolute Monos (auto) Absolute Eos (auto) Absolute Basos (auto) Total Counted Seg Neutrophils % Seg Neuts % (Manual) Lymphocytes % (Manual) Monocytes % (Manual) Eosinophils % (Manual) Basophils % (Manual) Abs Neuts (Manual) Abs Lymphs (Manual) Abs Monocytes (Manual) Absolute Eos (Manual) Abs Basophils (Manual) Toxic Granulation Toxic Vacuolation Clumped Platelets Platelet Comment Poikilocytosis Anisocytosis Tear Drop Cells PT INR APTT Fibrinogen D-Dimer Carbonic Acid HCO3/H2CO3 Ratio ABG pH ABG pCO2 ABG pO2 ABG HCO3 ABG Total CO2 ABG O2 Saturation ABG Base Excess FiO2 Sodium Potassium Chloride Carbon Dioxide Anion Gap BUN Creatinine Est GFR ( Amer) Est GFR (Non-Af Amer) Est GFR (MDRD) Non-Af Glucose POC Glucose 74 Calcium Ionized Calcium Mak Phosphorus Magnesium Total Bilirubin Direct Bilirubin Neonat Total Bilirubin Neonat Direct Bilirubin Neonat Indirect Bili AST ALT Alkaline Phosphatase Ammonia Cancelled Creatine Kinase Troponin I NT-Pro-B Natriuret Pep Total Protein Albumin Triglycerides Lipase EGFR Procalcitonin TSH Free T4 Cortisol AM Sample Cortisol PM Sample Cancelled Stl C. Difficile GDH Ag Stl C.difficile Tox A&B Stl C.difficile Tox PCR Serum Alcohol SARS-CoV-2 (PCR) 07/11/20 07/11/20 07/12/20 18:59 18:59 01:12 WBC RBC Hgb Hct MCV MCH MCHC RDW Plt Count Lymph % (Auto) [place] % (Auto) Eos % (Auto) Baso % (Auto) Absolute Neuts (auto) Absolute Lymphs (auto) Absolute Monos (auto) Absolute Eos (auto) Absolute Basos (auto) Total Counted Seg Neutrophils % Seg Neuts % (Manual) Lymphocytes % (Manual) Monocytes % (Manual) Eosinophils % (Manual) Basophils % (Manual) Abs Neuts (Manual) Abs Lymphs (Manual) Abs Monocytes (Manual) Absolute Eos (Manual) Abs Basophils (Manual) Toxic Granulation Toxic Vacuolation Clumped Platelets Platelet Comment Poikilocytosis Anisocytosis Tear Drop Cells PT INR APTT Fibrinogen D-Dimer Carbonic Acid HCO3/H2CO3 Ratio ABG pH ABG pCO2 ABG pO2 ABG HCO3 ABG Total CO2 ABG O2 Saturation ABG Base Excess FiO2 Sodium Potassium Chloride Carbon Dioxide Anion Gap BUN Creatinine Est GFR ( Amer) Est GFR (Non-Af Amer) Est GFR (MDRD) Non-Af Glucose POC Glucose 75 Calcium Ionized Calcium Amk Phosphorus Magnesium Total Bilirubin Direct Bilirubin Neonat Total Bilirubin Neonat Direct Bilirubin Neonat Indirect Bili AST ALT Alkaline Phosphatase Ammonia < 8.7 L Creatine Kinase Troponin I NT-Pro-B Natriuret Pep Total Protein Albumin Triglycerides Lipase EGFR Procalcitonin TSH Free T4 Cortisol AM Sample Cortisol PM Sample 7.69 Stl C. Difficile GDH Ag Stl C.difficile Tox A&B Stl C.difficile Tox PCR Serum Alcohol SARS-CoV-2 (PCR) 07/12/20 07/12/20 07/12/20 04:08 04:08 05:12 WBC 8.3 RBC 4.91 Hgb 14.1 Hct 43.0 MCV 88 MCH 28.7 MCHC 32.7 RDW 16.6 H Plt Count 94 L Lymph % (Auto) 28.7 [place] % (Auto) 15.1 H Eos % (Auto) 2.2 Baso % (Auto) 1.1 Absolute Neuts (auto) 4.4 Absolute Lymphs (auto) 2.4 Absolute Monos (auto) 1.3 Absolute Eos (auto) 0.2 Absolute Basos (auto) 0.1 Total Counted Seg Neutrophils % 52.9 Seg Neuts % (Manual) Lymphocytes % (Manual) Monocytes % (Manual) Eosinophils % (Manual) Basophils % (Manual) Abs Neuts (Manual) Abs Lymphs (Manual) Abs Monocytes (Manual) Absolute Eos (Manual) Abs Basophils (Manual) Toxic Granulation Toxic Vacuolation Clumped Platelets Platelet Comment Poikilocytosis Anisocytosis Tear Drop Cells PT INR APTT Fibrinogen D-Dimer Carbonic Acid HCO3/H2CO3 Ratio ABG pH ABG pCO2 ABG pO2 ABG HCO3 ABG Total CO2 ABG O2 Saturation ABG Base Excess FiO2 Sodium 135.9 L Potassium 3.7 Chloride 102 Carbon Dioxide 25 Anion Gap 9 BUN 27 H Creatinine 3.51 H Est GFR ( Amer) 21 L Est GFR (Non-Af Amer) Est GFR (MDRD) Non-Af 18 L Glucose 61 L POC Glucose 108 Calcium 8.4 Ionized Calcium Mak Phosphorus Magnesium 1.6 Total Bilirubin Direct Bilirubin Neonat Total Bilirubin Neonat Direct Bilirubin Neonat Indirect Bili AST ALT Alkaline Phosphatase Ammonia Creatine Kinase Troponin I NT-Pro-B Natriuret Pep Total Protein Albumin Triglycerides Lipase EGFR Procalcitonin TSH Free T4 Cortisol AM Sample Cortisol PM Sample Stl C. Difficile GDH Ag Stl C.difficile Tox A&B Stl C.difficile Tox PCR Serum Alcohol SARS-CoV-2 (PCR) 07/12/20 07/12/20 07/12/20 06:36 10:15 11:11 WBC RBC Hgb Hct MCV MCH MCHC RDW Plt Count Lymph % (Auto) [place] % (Auto) Eos % (Auto) Baso % (Auto) Absolute Neuts (auto) Absolute Lymphs (auto) Absolute Monos (auto) Absolute Eos (auto) Absolute Basos (auto) Total Counted Seg Neutrophils % Seg Neuts % (Manual) Lymphocytes % (Manual) Monocytes % (Manual) Eosinophils % (Manual) Basophils % (Manual) Abs Neuts (Manual) Abs Lymphs (Manual) Abs Monocytes (Manual) Absolute Eos (Manual) Abs Basophils (Manual) Toxic Granulation Toxic Vacuolation Clumped Platelets Platelet Comment Poikilocytosis Anisocytosis Tear Drop Cells PT INR APTT Fibrinogen D-Dimer Carbonic Acid HCO3/H2CO3 Ratio ABG pH ABG pCO2 ABG pO2 ABG HCO3 ABG Total CO2 ABG O2 Saturation ABG Base Excess FiO2 Sodium Potassium Chloride Carbon Dioxide Anion Gap BUN Creatinine Est GFR ( Amer) Est GFR (Non-Af Amer) Est GFR (MDRD) Non-Af Glucose POC Glucose 76 57 L 91 Calcium Ionized Calcium Mak Phosphorus Magnesium Total Bilirubin Direct Bilirubin Neonat Total Bilirubin Neonat Direct Bilirubin Neonat Indirect Bili AST ALT Alkaline Phosphatase Ammonia Creatine Kinase Troponin I NT-Pro-B Natriuret Pep Total Protein Albumin Triglycerides Lipase EGFR Procalcitonin TSH Free T4 Cortisol AM Sample Cortisol PM Sample Stl C. Difficile GDH Ag Stl C.difficile Tox A&B Stl C.difficile Tox PCR Serum Alcohol SARS-CoV-2 (PCR) 07/12/20 07/12/20 07/12/20 11:50 12:15 14:08 WBC RBC Hgb Hct MCV MCH MCHC RDW Plt Count Lymph % (Auto) [place] % (Auto) Eos % (Auto) Baso % (Auto) Absolute Neuts (auto) Absolute Lymphs (auto) Absolute Monos (auto) Absolute Eos (auto) Absolute Basos (auto) Total Counted Seg Neutrophils % Seg Neuts % (Manual) Lymphocytes % (Manual) Monocytes % (Manual) Eosinophils % (Manual) Basophils % (Manual) Abs Neuts (Manual) Abs Lymphs (Manual) Abs Monocytes (Manual) Absolute Eos (Manual) Abs Basophils (Manual) Toxic Granulation Toxic Vacuolation Clumped Platelets Platelet Comment Poikilocytosis Anisocytosis Tear Drop Cells PT INR APTT Fibrinogen D-Dimer Carbonic Acid HCO3/H2CO3 Ratio ABG pH ABG pCO2 ABG pO2 ABG HCO3 ABG Total CO2 ABG O2 Saturation ABG Base Excess FiO2 Sodium Potassium Chloride Carbon Dioxide Anion Gap BUN Creatinine Est GFR ( Amer) Est GFR (Non-Af Amer) Est GFR (MDRD) Non-Af Glucose POC Glucose 72 90 88 Calcium Ionized Calcium Mak Phosphorus Magnesium Total Bilirubin Direct Bilirubin Neonat Total Bilirubin Neonat Direct Bilirubin Neonat Indirect Bili AST ALT Alkaline Phosphatase Ammonia Creatine Kinase Troponin I NT-Pro-B Natriuret Pep Total Protein Albumin Triglycerides Lipase EGFR Procalcitonin TSH Free T4 Cortisol AM Sample Cortisol PM Sample Stl C. Difficile GDH Ag Stl C.difficile Tox A&B Stl C.difficile Tox PCR Serum Alcohol SARS-CoV-2 (PCR) 07/12/20 07/12/20 07/13/20 17:47 23:48 03:57 WBC RBC Hgb Hct MCV MCH MCHC RDW Plt Count Lymph % (Auto) [place] % (Auto) Eos % (Auto) Baso % (Auto) Absolute Neuts (auto) Absolute Lymphs (auto) Absolute Monos (auto) Absolute Eos (auto) Absolute Basos (auto) Total Counted Seg Neutrophils % Seg Neuts % (Manual) Lymphocytes % (Manual) Monocytes % (Manual) Eosinophils % (Manual) Basophils % (Manual) Abs Neuts (Manual) Abs Lymphs (Manual) Abs Monocytes (Manual) Absolute Eos (Manual) Abs Basophils (Manual) Toxic Granulation Toxic Vacuolation Clumped Platelets Platelet Comment Poikilocytosis Anisocytosis Tear Drop Cells PT INR APTT Fibrinogen D-Dimer Carbonic Acid HCO3/H2CO3 Ratio ABG pH ABG pCO2 ABG pO2 ABG HCO3 ABG Total CO2 ABG O2 Saturation ABG Base Excess FiO2 Sodium Cancelled Potassium Cancelled Chloride Cancelled Carbon Dioxide Cancelled Anion Gap Cancelled BUN Cancelled Creatinine Cancelled Est GFR ( Amer) Cancelled Est GFR (Non-Af Amer) Cancelled Est GFR (MDRD) Non-Af Cancelled Glucose Cancelled POC Glucose 78 116 H Calcium Cancelled Ionized Calcium Mak Phosphorus Magnesium Total Bilirubin Direct Bilirubin Neonat Total Bilirubin Neonat Direct Bilirubin Neonat Indirect Bili AST ALT Alkaline Phosphatase Ammonia Creatine Kinase Troponin I NT-Pro-B Natriuret Pep Total Protein Albumin Triglycerides Cancelled Lipase EGFR Cancelled Procalcitonin TSH Free T4 Cortisol AM Sample Cortisol PM Sample Stl C. Difficile GDH Ag Stl C.difficile Tox A&B Stl C.difficile Tox PCR Serum Alcohol SARS-CoV-2 (PCR) 0807/13/20 07/13/20 03:57 05:38 06:08 WBC 7.0 RBC 5.36 Hgb 15.5 Hct 46.7 MCV 87 MCH 29.0 MCHC 33.2 RDW 16.9 H Plt Count 123 L Lymph % (Auto) [place] % (Auto) Eos % (Auto) Baso % (Auto) Absolute Neuts (auto) Absolute Lymphs (auto) Absolute Monos (auto) Absolute Eos (auto) Absolute Basos (auto) Total Counted Seg Neutrophils % Seg Neuts % (Manual) Lymphocytes % (Manual) Monocytes % (Manual) Eosinophils % (Manual) Basophils % (Manual) Abs Neuts (Manual) Abs Lymphs (Manual) Abs Monocytes (Manual) Absolute Eos (Manual) Abs Basophils (Manual) Toxic Granulation Toxic Vacuolation Clumped Platelets Platelet Comment Poikilocytosis Anisocytosis Tear Drop Cells PT INR APTT Fibrinogen D-Dimer Carbonic Acid HCO3/H2CO3 Ratio ABG pH ABG pCO2 ABG pO2 ABG HCO3 ABG Total CO2 ABG O2 Saturation ABG Base Excess FiO2 Sodium 135.3 L Potassium 4.3 Chloride 100 Carbon Dioxide 21 L Anion Gap 14 BUN 33 H Creatinine 4.00 H Est GFR ( Amer) 18 L Est GFR (Non-Af Amer) Est GFR (MDRD) Non-Af 15 L Glucose 155 H POC Glucose 134 H Calcium 8.6 Ionized Calcium Mak Phosphorus Magnesium Total Bilirubin Direct Bilirubin Neonat Total Bilirubin Neonat Direct Bilirubin Neonat Indirect Bili AST ALT Alkaline Phosphatase Ammonia Creatine Kinase Troponin I NT-Pro-B Natriuret Pep Total Protein Albumin Triglycerides 242 H Lipase EGFR Procalcitonin TSH Free T4 Cortisol AM Sample Cortisol PM Sample Stl C. Difficile GDH Ag Stl C.difficile Tox A&B Stl C.difficile Tox PCR Serum Alcohol SARS-CoV-2 (PCR) 07/13/20 07/13/20 07/13/20 09:46 14:40 18:30 WBC RBC Hgb Hct MCV MCH MCHC RDW Plt Count Lymph % (Auto) [place] % (Auto) Eos % (Auto) Baso % (Auto) Absolute Neuts (auto) Absolute Lymphs (auto) Absolute Monos (auto) Absolute Eos (auto) Absolute Basos (auto) Total Counted Seg Neutrophils % Seg Neuts % (Manual) Lymphocytes % (Manual) Monocytes % (Manual) Eosinophils % (Manual) Basophils % (Manual) Abs Neuts (Manual) Abs Lymphs (Manual) Abs Monocytes (Manual) Absolute Eos (Manual) Abs Basophils (Manual) Toxic Granulation Toxic Vacuolation Clumped Platelets Platelet Comment Poikilocytosis Anisocytosis Tear Drop Cells PT INR APTT Fibrinogen D-Dimer Carbonic Acid 1.22 HCO3/H2CO3 Ratio 18:1 ABG pH 7.37 ABG pCO2 40.4 ABG pO2 120.6 H ABG HCO3 22.6 ABG Total CO2 23.8 ABG O2 Saturation 98.3 H ABG Base Excess -2.6 FiO2 30% Sodium Potassium Chloride Carbon Dioxide Anion Gap BUN Creatinine Est GFR ( Amer) Est GFR (Non-Af Amer) Est GFR (MDRD) Non-Af Glucose POC Glucose Calcium Ionized Calcium Mak Phosphorus Magnesium Total Bilirubin Direct Bilirubin Neonat Total Bilirubin Neonat Direct Bilirubin Neonat Indirect Bili AST ALT Alkaline Phosphatase Ammonia Creatine Kinase Troponin I NT-Pro-B Natriuret Pep Total Protein Albumin Triglycerides Lipase EGFR Procalcitonin 3.57 H TSH Free T4 Cortisol AM Sample Cortisol PM Sample Stl C. Difficile GDH Ag NEGATIVE Stl C.difficile Tox A&B NEGATIVE Stl C.difficile Tox PCR Serum Alcohol SARS-CoV-2 (PCR) 07/13/20 07/13/20 07/14/20 19:34 23:40 04:01 WBC RBC Hgb Hct MCV MCH MCHC RDW Plt Count Lymph % (Auto) [place] % (Auto) Eos % (Auto) Baso % (Auto) Absolute Neuts (auto) Absolute Lymphs (auto) Absolute Monos (auto) Absolute Eos (auto) Absolute Basos (auto) Total Counted Seg Neutrophils % Seg Neuts % (Manual) Lymphocytes % (Manual) Monocytes % (Manual) Eosinophils % (Manual) Basophils % (Manual) Abs Neuts (Manual) Abs Lymphs (Manual) Abs Monocytes (Manual) Absolute Eos (Manual) Abs Basophils (Manual) Toxic Granulation Toxic Vacuolation Clumped Platelets Platelet Comment Poikilocytosis Anisocytosis Tear Drop Cells PT INR APTT Fibrinogen D-Dimer Carbonic Acid HCO3/H2CO3 Ratio ABG pH ABG pCO2 ABG pO2 ABG HCO3 ABG Total CO2 ABG O2 Saturation ABG Base Excess FiO2 Sodium Potassium 3.7 Chloride Carbon Dioxide Anion Gap BUN Creatinine Est GFR ( Amer) Est GFR (Non-Af Amer) Est GFR (MDRD) Non-Af Glucose POC Glucose 190 H 172 H Calcium Ionized Calcium Mak Phosphorus Magnesium 1.7 Total Bilirubin Direct Bilirubin Neonat Total Bilirubin Neonat Direct Bilirubin Neonat Indirect Bili AST ALT Alkaline Phosphatase Ammonia Creatine Kinase Troponin I NT-Pro-B Natriuret Pep Total Protein Albumin Triglycerides Lipase EGFR Procalcitonin TSH Free T4 Cortisol AM Sample Cortisol PM Sample Stl C. Difficile GDH Ag Stl C.difficile Tox A&B Stl C.difficile Tox PCR Serum Alcohol SARS-CoV-2 (PCR) 07/14/20 07/14/20 07/14/20 06:07 10:44 17:37 WBC RBC Hgb Hct MCV MCH MCHC RDW Plt Count Lymph % (Auto) [place] % (Auto) Eos % (Auto) Baso % (Auto) Absolute Neuts (auto) Absolute Lymphs (auto) Absolute Monos (auto) Absolute Eos (auto) Absolute Basos (auto) Total Counted Seg Neutrophils % Seg Neuts % (Manual) Lymphocytes % (Manual) Monocytes % (Manual) Eosinophils % (Manual) Basophils % (Manual) Abs Neuts (Manual) Abs Lymphs (Manual) Abs Monocytes (Manual) Absolute Eos (Manual) Abs Basophils (Manual) Toxic Granulation Toxic Vacuolation Clumped Platelets Platelet Comment Poikilocytosis Anisocytosis Tear Drop Cells PT INR APTT Fibrinogen D-Dimer Carbonic Acid HCO3/H2CO3 Ratio ABG pH ABG pCO2 ABG pO2 ABG HCO3 ABG Total CO2 ABG O2 Saturation ABG Base Excess FiO2 Sodium Potassium Chloride Carbon Dioxide Anion Gap BUN Creatinine Est GFR ( Amer) Est GFR (Non-Af Amer) Est GFR (MDRD) Non-Af Glucose POC Glucose 224 H 194 H 173 H Calcium Ionized Calcium Mak Phosphorus Magnesium Total Bilirubin Direct Bilirubin Neonat Total Bilirubin Neonat Direct Bilirubin Neonat Indirect Bili AST ALT Alkaline Phosphatase Ammonia Creatine Kinase Troponin I NT-Pro-B Natriuret Pep Total Protein Albumin Triglycerides Lipase EGFR Procalcitonin TSH Free T4 Cortisol AM Sample Cortisol PM Sample Stl C. Difficile GDH Ag Stl C.difficile Tox A&B Stl C.difficile Tox PCR Serum Alcohol SARS-CoV-2 (PCR) 07/14/20 07/15/20 07/15/20 23:41 05:27 06:15 WBC RBC Hgb Hct MCV MCH MCHC RDW Plt Count Lymph % (Auto) [place] % (Auto) Eos % (Auto) Baso % (Auto) Absolute Neuts (auto) Absolute Lymphs (auto) Absolute Monos (auto) Absolute Eos (auto) Absolute Basos (auto) Total Counted Seg Neutrophils % Seg Neuts % (Manual) Lymphocytes % (Manual) Monocytes % (Manual) Eosinophils % (Manual) Basophils % (Manual) Abs Neuts (Manual) Abs Lymphs (Manual) Abs Monocytes (Manual) Absolute Eos (Manual) Abs Basophils (Manual) Toxic Granulation Toxic Vacuolation Clumped Platelets Platelet Comment Poikilocytosis Anisocytosis Tear Drop Cells PT INR APTT Fibrinogen D-Dimer Carbonic Acid HCO3/H2CO3 Ratio ABG pH ABG pCO2 ABG pO2 ABG HCO3 ABG Total CO2 ABG O2 Saturation ABG Base Excess FiO2 Sodium 131.4 L Potassium 3.6 Chloride 94 L Carbon Dioxide 20 L Anion Gap 17 BUN 35 H Creatinine 3.37 H Est GFR ( Amer) 22 L Est GFR (Non-Af Amer) Est GFR (MDRD) Non-Af 19 L Glucose 201 H POC Glucose 140 H 168 H Calcium 8.6 Ionized Calcium Mak Phosphorus Magnesium Total Bilirubin 0.8 Direct Bilirubin 0.8 H Neonat Total Bilirubin Not Reportable Neonat Direct Bilirubin Not Reportable Neonat Indirect Bili Not Reportable AST 20 ALT 8 Alkaline Phosphatase 134 H Ammonia Creatine Kinase Troponin I NT-Pro-B Natriuret Pep Total Protein 8.0 Albumin 3.2 L Triglycerides Lipase EGFR Procalcitonin TSH Free T4 Cortisol AM Sample Cortisol PM Sample Stl C. Difficile GDH Ag Stl C.difficile Tox A&B Stl C.difficile Tox PCR Serum Alcohol SARS-CoV-2 (PCR) 07/15/20 07/15/20 07/15/20 06:15 11:11 18:00 WBC 6.8 RBC 4.80 Hgb 13.9 Hct 41.6 MCV 87 MCH 28.9 MCHC 33.4 RDW 16.6 H Plt Count 87 L Lymph % (Auto) 10.5 L [place] % (Auto) 4.2 Eos % (Auto) 0.0 Baso % (Auto) 0.2 Absolute Neuts (auto) 5.8 Absolute Lymphs (auto) 0.7 Absolute Monos (auto) 0.3 Absolute Eos (auto) 0.0 Absolute Basos (auto) 0.0 Total Counted Seg Neutrophils % 85.1 H Seg Neuts % (Manual) Lymphocytes % (Manual) Monocytes % (Manual) Eosinophils % (Manual) Basophils % (Manual) Abs Neuts (Manual) Abs Lymphs (Manual) Abs Monocytes (Manual) Absolute Eos (Manual) Abs Basophils (Manual) Toxic Granulation Toxic Vacuolation Clumped Platelets Platelet Comment Poikilocytosis Anisocytosis Tear Drop Cells PT INR APTT Fibrinogen D-Dimer Carbonic Acid HCO3/H2CO3 Ratio ABG pH ABG pCO2 ABG pO2 ABG HCO3 ABG Total CO2 ABG O2 Saturation ABG Base Excess FiO2 Sodium Potassium Chloride Carbon Dioxide Anion Gap BUN Creatinine Est GFR ( Amer) Est GFR (Non-Af Amer) Est GFR (MDRD) Non-Af Glucose POC Glucose 191 H 165 H Calcium Ionized Calcium Mak Phosphorus Magnesium Total Bilirubin Direct Bilirubin Neonat Total Bilirubin Neonat Direct Bilirubin Neonat Indirect Bili AST ALT Alkaline Phosphatase Ammonia Creatine Kinase Troponin I NT-Pro-B Natriuret Pep Total Protein Albumin Triglycerides Lipase EGFR Procalcitonin TSH Free T4 Cortisol AM Sample Cortisol PM Sample Stl C. Difficile GDH Ag Stl C.difficile Tox A&B Stl C.difficile Tox PCR Serum Alcohol SARS-CoV-2 (PCR) 07/16/20 07/16/20 07/16/20 00:28 01:51 05:59 WBC RBC Hgb Hct MCV MCH MCHC RDW Plt Count Lymph % (Auto) [place] % (Auto) Eos % (Auto) Baso % (Auto) Absolute Neuts (auto) Absolute Lymphs (auto) Absolute Monos (auto) Absolute Eos (auto) Absolute Basos (auto) Total Counted Seg Neutrophils % Seg Neuts % (Manual) Lymphocytes % (Manual) Monocytes % (Manual) Eosinophils % (Manual) Basophils % (Manual) Abs Neuts (Manual) Abs Lymphs (Manual) Abs Monocytes (Manual) Absolute Eos (Manual) Abs Basophils (Manual) Toxic Granulation Toxic Vacuolation Clumped Platelets Platelet Comment Poikilocytosis Anisocytosis Tear Drop Cells PT INR APTT Fibrinogen D-Dimer Carbonic Acid HCO3/H2CO3 Ratio ABG pH ABG pCO2 ABG pO2 ABG HCO3 ABG Total CO2 ABG O2 Saturation ABG Base Excess FiO2 Sodium Potassium Chloride Carbon Dioxide Anion Gap BUN Creatinine Est GFR ( Amer) Est GFR (Non-Af Amer) Est GFR (MDRD) Non-Af Glucose POC Glucose 235 H 174 H 162 H Calcium Ionized Calcium Mak Phosphorus Magnesium Total Bilirubin Direct Bilirubin Neonat Total Bilirubin Neonat Direct Bilirubin Neonat Indirect Bili AST ALT Alkaline Phosphatase Ammonia Creatine Kinase Troponin I NT-Pro-B Natriuret Pep Total Protein Albumin Triglycerides Lipase EGFR Procalcitonin TSH Free T4 Cortisol AM Sample Cortisol PM Sample Stl C. Difficile GDH Ag Stl C.difficile Tox A&B Stl C.difficile Tox PCR Serum Alcohol SARS-CoV-2 (PCR) 07/16/20 07/16/20 07/16/20 06:12 06:12 07:44 WBC 4.1 RBC 4.65 Hgb 13.4 L Hct 40.2 MCV 87 MCH 28.8 MCHC 33.3 RDW 16.7 H Plt Count 77 L Lymph % (Auto) 12.3 L [place] % (Auto) 7.4 Eos % (Auto) 0.1 Baso % (Auto) 0.3 Absolute Neuts (auto) 3.3 Absolute Lymphs (auto) 0.5 Absolute Monos (auto) 0.3 Absolute Eos (auto) 0.0 Absolute Basos (auto) 0.0 Total Counted Seg Neutrophils % 79.9 H Seg Neuts % (Manual) Lymphocytes % (Manual) Monocytes % (Manual) Eosinophils % (Manual) Basophils % (Manual) Abs Neuts (Manual) Abs Lymphs (Manual) Abs Monocytes (Manual) Absolute Eos (Manual) Abs Basophils (Manual) Toxic Granulation Toxic Vacuolation Clumped Platelets Platelet Comment Poikilocytosis Anisocytosis Tear Drop Cells PT INR APTT Fibrinogen D-Dimer Carbonic Acid HCO3/H2CO3 Ratio ABG pH ABG pCO2 ABG pO2 ABG HCO3 ABG Total CO2 ABG O2 Saturation ABG Base Excess FiO2 Sodium 126.3 L Potassium 3.3 L Chloride 91 L Carbon Dioxide 22 Anion Gap 13 BUN 44 H Creatinine 3.58 H Est GFR ( Amer) 21 L Est GFR (Non-Af Amer) Est GFR (MDRD) Non-Af 17 L Glucose 181 H POC Glucose Calcium 8.7 Ionized Calcium Mak Phosphorus 4.2 Magnesium 1.7 Total Bilirubin Direct Bilirubin Neonat Total Bilirubin Neonat Direct Bilirubin Neonat Indirect Bili AST ALT Alkaline Phosphatase Ammonia Creatine Kinase Troponin I NT-Pro-B Natriuret Pep Total Protein Albumin Triglycerides Lipase EGFR Procalcitonin TSH Free T4 Cortisol AM Sample 105.00 H Cortisol PM Sample Stl C. Difficile GDH Ag Stl C.difficile Tox A&B Stl C.difficile Tox PCR Serum Alcohol SARS-CoV-2 (PCR) 07/16/20 07/16/20 07/16/20 11:53 16:48 18:32 WBC RBC Hgb Hct MCV MCH MCHC RDW Plt Count Lymph % (Auto) [place] % (Auto) Eos % (Auto) Baso % (Auto) Absolute Neuts (auto) Absolute Lymphs (auto) Absolute Monos (auto) Absolute Eos (auto) Absolute Basos (auto) Total Counted Seg Neutrophils % Seg Neuts % (Manual) Lymphocytes % (Manual) Monocytes % (Manual) Eosinophils % (Manual) Basophils % (Manual) Abs Neuts (Manual) Abs Lymphs (Manual) Abs Monocytes (Manual) Absolute Eos (Manual) Abs Basophils (Manual) Toxic Granulation Toxic Vacuolation Clumped Platelets Platelet Comment Poikilocytosis Anisocytosis Tear Drop Cells PT INR APTT Fibrinogen D-Dimer Carbonic Acid 1.39 H HCO3/H2CO3 Ratio 16:1 ABG pH 7.30 L ABG pCO2 46.3 H ABG pO2 179.6 H ABG HCO3 22.3 ABG Total CO2 23.7 ABG O2 Saturation 99.1 H ABG Base Excess -4.2 FiO2 2L Sodium Potassium Chloride Carbon Dioxide Anion Gap BUN Creatinine Est GFR ( Amer) Est GFR (Non-Af Amer) Est GFR (MDRD) Non-Af Glucose POC Glucose 127 H 153 H Calcium Ionized Calcium Mak Phosphorus Magnesium Total Bilirubin Direct Bilirubin Neonat Total Bilirubin Neonat Direct Bilirubin Neonat Indirect Bili AST ALT Alkaline Phosphatase Ammonia Creatine Kinase Troponin I NT-Pro-B Natriuret Pep Total Protein Albumin Triglycerides Lipase EGFR Procalcitonin TSH Free T4 Cortisol AM Sample Cortisol PM Sample Stl C. Difficile GDH Ag Stl C.difficile Tox A&B Stl C.difficile Tox PCR Serum Alcohol SARS-CoV-2 (PCR) 07/17/20 07/17/20 07/17/20 00:10 05:35 05:35 WBC 4.8 RBC 4.57 Hgb 13.1 L Hct 40.3 MCV 88 MCH 28.7 MCHC 32.6 RDW 16.9 H Plt Count 77 L Lymph % (Auto) 7.0 L [place] % (Auto) 10.7 Eos % (Auto) 0.0 Baso % (Auto) 0.2 Absolute Neuts (auto) 3.9 Absolute Lymphs (auto) 0.3 L Absolute Monos (auto) 0.5 Absolute Eos (auto) 0.0 Absolute Basos (auto) 0.0 Total Counted Seg Neutrophils % 82.1 H Seg Neuts % (Manual) Lymphocytes % (Manual) Monocytes % (Manual) Eosinophils % (Manual) Basophils % (Manual) Abs Neuts (Manual) Abs Lymphs (Manual) Abs Monocytes (Manual) Absolute Eos (Manual) Abs Basophils (Manual) Toxic Granulation Toxic Vacuolation Clumped Platelets Platelet Comment Poikilocytosis Anisocytosis Tear Drop Cells PT INR APTT Fibrinogen D-Dimer Carbonic Acid HCO3/H2CO3 Ratio ABG pH ABG pCO2 ABG pO2 ABG HCO3 ABG Total CO2 ABG O2 Saturation ABG Base Excess FiO2 Sodium 132.1 L Potassium 3.5 L Chloride 94 L Carbon Dioxide 25 Anion Gap 13 BUN 29 H Creatinine 2.74 H Est GFR ( Amer) 28 L Est GFR (Non-Af Amer) Est GFR (MDRD) Non-Af 24 L Glucose 197 H POC Glucose 181 H Calcium 8.8 Ionized Calcium Mak Phosphorus Magnesium Total Bilirubin Direct Bilirubin Neonat Total Bilirubin Neonat Direct Bilirubin Neonat Indirect Bili AST ALT Alkaline Phosphatase Ammonia Creatine Kinase Troponin I NT-Pro-B Natriuret Pep Total Protein Albumin Triglycerides Lipase EGFR Procalcitonin TSH Free T4 Cortisol AM Sample Cortisol PM Sample Stl C. Difficile GDH Ag Stl C.difficile Tox A&B Stl C.difficile Tox PCR Serum Alcohol SARS-CoV-2 (PCR) 07/17/20 07/17/20 07/17/20 06:24 09:43 10:25 WBC RBC Hgb Hct MCV MCH MCHC RDW Plt Count Lymph % (Auto) [place] % (Auto) Eos % (Auto) Baso % (Auto) Absolute Neuts (auto) Absolute Lymphs (auto) Absolute Monos (auto) Absolute Eos (auto) Absolute Basos (auto) Total Counted Seg Neutrophils % Seg Neuts % (Manual) Lymphocytes % (Manual) Monocytes % (Manual) Eosinophils % (Manual) Basophils % (Manual) Abs Neuts (Manual) Abs Lymphs (Manual) Abs Monocytes (Manual) Absolute Eos (Manual) Abs Basophils (Manual) Toxic Granulation Toxic Vacuolation Clumped Platelets Platelet Comment Poikilocytosis Anisocytosis Tear Drop Cells PT INR APTT Fibrinogen D-Dimer Carbonic Acid 2.24 H HCO3/H2CO3 Ratio 10:1 ABG pH 7.12 L* ABG pCO2 74.4 H* ABG pO2 92.4 ABG HCO3 23.8 ABG Total CO2 26.1 ABG O2 Saturation 94.0 ABG Base Excess -6.9 FiO2 100% Sodium Potassium Chloride Carbon Dioxide Anion Gap BUN Creatinine Est GFR ( Amer) Est GFR (Non-Af Amer) Est GFR (MDRD) Non-Af Glucose POC Glucose 174 H Calcium Ionized Calcium Mak Phosphorus Magnesium Total Bilirubin Direct Bilirubin Neonat Total Bilirubin Neonat Direct Bilirubin Neonat Indirect Bili AST ALT Alkaline Phosphatase Ammonia Creatine Kinase Troponin I NT-Pro-B Natriuret Pep Total Protein Albumin Triglycerides Lipase EGFR Procalcitonin TSH Free T4 Cortisol AM Sample Cortisol PM Sample Stl C. Difficile GDH Ag Stl C.difficile Tox A&B Stl C.difficile Tox PCR Serum Alcohol SARS-CoV-2 (PCR) NEGATIVE 07/17/20 07/17/20 07/17/20 11:06 12:29 17:24 WBC RBC Hgb Hct MCV MCH MCHC RDW Plt Count Lymph % (Auto) [place] % (Auto) Eos % (Auto) Baso % (Auto) Absolute Neuts (auto) Absolute Lymphs (auto) Absolute Monos (auto) Absolute Eos (auto) Absolute Basos (auto) Total Counted Seg Neutrophils % Seg Neuts % (Manual) Lymphocytes % (Manual) Monocytes % (Manual) Eosinophils % (Manual) Basophils % (Manual) Abs Neuts (Manual) Abs Lymphs (Manual) Abs Monocytes (Manual) Absolute Eos (Manual) Abs Basophils (Manual) Toxic Granulation Toxic Vacuolation Clumped Platelets Platelet Comment Poikilocytosis Anisocytosis Tear Drop Cells PT INR APTT Fibrinogen D-Dimer Carbonic Acid HCO3/H2CO3 Ratio ABG pH ABG pCO2 ABG pO2 ABG HCO3 ABG Total CO2 ABG O2 Saturation ABG Base Excess FiO2 Sodium Potassium Chloride Carbon Dioxide Anion Gap BUN Creatinine Est GFR ( Amer) Est GFR (Non-Af Amer) Est GFR (MDRD) Non-Af Glucose POC Glucose 180 H 155 H 136 H Calcium Ionized Calcium Mak Phosphorus Magnesium Total Bilirubin Direct Bilirubin Neonat Total Bilirubin Neonat Direct Bilirubin Neonat Indirect Bili AST ALT Alkaline Phosphatase Ammonia Creatine Kinase Troponin I NT-Pro-B Natriuret Pep Total Protein Albumin Triglycerides Lipase EGFR Procalcitonin TSH Free T4 Cortisol AM Sample Cortisol PM Sample Stl C. Difficile GDH Ag Stl C.difficile Tox A&B Stl C.difficile Tox PCR Serum Alcohol SARS-CoV-2 (PCR) 07/17/20 07/17/20 07/18/20 23:18 23:32 05:25 WBC RBC Hgb Hct MCV MCH MCHC RDW Plt Count Lymph % (Auto) [place] % (Auto) Eos % (Auto) Baso % (Auto) Absolute Neuts (auto) Absolute Lymphs (auto) Absolute Monos (auto) Absolute Eos (auto) Absolute Basos (auto) Total Counted Seg Neutrophils % Seg Neuts % (Manual) Lymphocytes % (Manual) Monocytes % (Manual) Eosinophils % (Manual) Basophils % (Manual) Abs Neuts (Manual) Abs Lymphs (Manual) Abs Monocytes (Manual) Absolute Eos (Manual) Abs Basophils (Manual) Toxic Granulation Toxic Vacuolation Clumped Platelets Platelet Comment Poikilocytosis Anisocytosis Tear Drop Cells PT INR APTT Fibrinogen D-Dimer Carbonic Acid 1.19 HCO3/H2CO3 Ratio 19:1 ABG pH 7.39 ABG pCO2 39.7 ABG pO2 71.0 L ABG HCO3 23.7 ABG Total CO2 24.9 ABG O2 Saturation 94.3 ABG Base Excess -1.0 FiO2 30% Sodium Potassium Chloride Carbon Dioxide Anion Gap BUN Creatinine Est GFR ( Amer) Est GFR (Non-Af Amer) Est GFR (MDRD) Non-Af Glucose POC Glucose 108 131 H Calcium Ionized Calcium Mak Phosphorus Magnesium Total Bilirubin Direct Bilirubin Neonat Total Bilirubin Neonat Direct Bilirubin Neonat Indirect Bili AST ALT Alkaline Phosphatase Ammonia Creatine Kinase Troponin I NT-Pro-B Natriuret Pep Total Protein Albumin Triglycerides Lipase EGFR Procalcitonin TSH Free T4 Cortisol AM Sample Cortisol PM Sample Stl C. Difficile GDH Ag Stl C.difficile Tox A&B Stl C.difficile Tox PCR Serum Alcohol SARS-CoV-2 (PCR) 07/18/20 07/18/20 07/18/20 05:37 05:37 11:50 WBC 6.0 RBC 4.17 L Hgb 12.1 L Hct 35.9 L MCV 86 MCH 28.9 MCHC 33.6 RDW 16.6 H Plt Count 109 L Lymph % (Auto) 6.9 L [place] % (Auto) 7.1 Eos % (Auto) 0.0 Baso % (Auto) 0.2 Absolute Neuts (auto) 5.1 Absolute Lymphs (auto) 0.4 L Absolute Monos (auto) 0.4 Absolute Eos (auto) 0.0 Absolute Basos (auto) 0.0 Total Counted Seg Neutrophils % 85.8 H Seg Neuts % (Manual) Lymphocytes % (Manual) Monocytes % (Manual) Eosinophils % (Manual) Basophils % (Manual) Abs Neuts (Manual) Abs Lymphs (Manual) Abs Monocytes (Manual) Absolute Eos (Manual) Abs Basophils (Manual) Toxic Granulation Toxic Vacuolation Clumped Platelets Platelet Comment Poikilocytosis Anisocytosis Tear Drop Cells PT INR APTT Fibrinogen D-Dimer Carbonic Acid HCO3/H2CO3 Ratio ABG pH ABG pCO2 ABG pO2 ABG HCO3 ABG Total CO2 ABG O2 Saturation ABG Base Excess FiO2 Sodium 131.9 L Potassium 3.3 L Chloride 97 L Carbon Dioxide 22 Anion Gap 13 BUN 35 H Creatinine 2.96 H Est GFR ( Amer) 26 L Est GFR (Non-Af Amer) Est GFR (MDRD) Non-Af 22 L Glucose 128 H POC Glucose 131 H Calcium 8.6 Ionized Calcium Mak Phosphorus Magnesium Total Bilirubin 1.1 Direct Bilirubin 1.0 H Neonat Total Bilirubin Not Reportable Neonat Direct Bilirubin Not Reportable Neonat Indirect Bili Not Reportable AST 15 L ALT 8 Alkaline Phosphatase 93 Ammonia Creatine Kinase Troponin I NT-Pro-B Natriuret Pep Total Protein 6.8 Albumin 3.1 L Triglycerides Lipase EGFR Procalcitonin TSH Free T4 Cortisol AM Sample Cortisol PM Sample Stl C. Difficile GDH Ag Stl C.difficile Tox A&B Stl C.difficile Tox PCR Serum Alcohol SARS-CoV-2 (PCR) 07/18/20 07/18/20 07/19/20 17:52 23:43 04:05 WBC RBC Hgb Hct MCV MCH MCHC RDW Plt Count Lymph % (Auto) [place] % (Auto) Eos % (Auto) Baso % (Auto) Absolute Neuts (auto) Absolute Lymphs (auto) Absolute Monos (auto) Absolute Eos (auto) Absolute Basos (auto) Total Counted Seg Neutrophils % Seg Neuts % (Manual) Lymphocytes % (Manual) Monocytes % (Manual) Eosinophils % (Manual) Basophils % (Manual) Abs Neuts (Manual) Abs Lymphs (Manual) Abs Monocytes (Manual) Absolute Eos (Manual) Abs Basophils (Manual) Toxic Granulation Toxic Vacuolation Clumped Platelets Platelet Comment Poikilocytosis Anisocytosis Tear Drop Cells PT INR APTT Fibrinogen D-Dimer Carbonic Acid HCO3/H2CO3 Ratio ABG pH ABG pCO2 ABG pO2 ABG HCO3 ABG Total CO2 ABG O2 Saturation ABG Base Excess FiO2 Sodium 131.2 L Potassium 2.8 L* Chloride 95 L Carbon Dioxide 22 Anion Gap 14 BUN 45 H Creatinine 3.46 H Est GFR ( Amer) 22 L Est GFR (Non-Af Amer) Est GFR (MDRD) Non-Af 18 L Glucose 228 H POC Glucose 142 H 186 H Calcium 8.8 Ionized Calcium Mak Phosphorus 3.8 Magnesium Total Bilirubin Direct Bilirubin Neonat Total Bilirubin Neonat Direct Bilirubin Neonat Indirect Bili AST ALT Alkaline Phosphatase Ammonia Creatine Kinase Troponin I NT-Pro-B Natriuret Pep Total Protein Albumin Triglycerides Lipase EGFR Procalcitonin TSH Free T4 Cortisol AM Sample Cortisol PM Sample Stl C. Difficile GDH Ag Stl C.difficile Tox A&B Stl C.difficile Tox PCR Serum Alcohol SARS-CoV-2 (PCR) 07/19/20 07/19/20 07/19/20 04:05 11:57 17:32 WBC RBC Hgb Hct MCV MCH MCHC RDW Plt Count Lymph % (Auto) [place] % (Auto) Eos % (Auto) Baso % (Auto) Absolute Neuts (auto) Absolute Lymphs (auto) Absolute Monos (auto) Absolute Eos (auto) Absolute Basos (auto) Total Counted Seg Neutrophils % Seg Neuts % (Manual) Lymphocytes % (Manual) Monocytes % (Manual) Eosinophils % (Manual) Basophils % (Manual) Abs Neuts (Manual) Abs Lymphs (Manual) Abs Monocytes (Manual) Absolute Eos (Manual) Abs Basophils (Manual) Toxic Granulation Toxic Vacuolation Clumped Platelets Platelet Comment Poikilocytosis Anisocytosis Tear Drop Cells PT INR APTT Fibrinogen D-Dimer Carbonic Acid HCO3/H2CO3 Ratio ABG pH ABG pCO2 ABG pO2 ABG HCO3 ABG Total CO2 ABG O2 Saturation ABG Base Excess FiO2 Sodium Potassium Chloride Carbon Dioxide Anion Gap BUN Creatinine Est GFR ( Amer) Est GFR (Non-Af Amer) Est GFR (MDRD) Non-Af Glucose POC Glucose 206 H 181 H Calcium Ionized Calcium Mak Phosphorus Magnesium 1.8 Total Bilirubin Direct Bilirubin Neonat Total Bilirubin Neonat Direct Bilirubin Neonat Indirect Bili AST ALT Alkaline Phosphatase Ammonia Creatine Kinase Troponin I NT-Pro-B Natriuret Pep Total Protein Albumin Triglycerides Lipase EGFR Procalcitonin TSH Free T4 Cortisol AM Sample Cortisol PM Sample Stl C. Difficile GDH Ag Stl C.difficile Tox A&B Stl C.difficile Tox PCR Serum Alcohol SARS-CoV-2 (PCR) 07/19/20 07/20/20 07/20/20 23:55 05:00 05:00 WBC 6.0 RBC 4.24 L Hgb 12.1 L Hct 36.8 L MCV 87 MCH 28.5 MCHC 32.8 RDW 16.6 H Plt Count 136 L Lymph % (Auto) Not Reportable [place] % (Auto) Not Reportable Eos % (Auto) Not Reportable Baso % (Auto) Not Reportable Absolute Neuts (auto) Not Reportable Absolute Lymphs (auto) Not Reportable Absolute Monos (auto) Not Reportable Absolute Eos (auto) Not Reportable Absolute Basos (auto) Not Reportable Total Counted 100 Seg Neutrophils % Not Reportable Seg Neuts % (Manual) 90 H Lymphocytes % (Manual) 9 L Monocytes % (Manual) 1 L Eosinophils % (Manual) 0 Basophils % (Manual) 0 Abs Neuts (Manual) 5.4 Abs Lymphs (Manual) 0.5 Abs Monocytes (Manual) 0.1 Absolute Eos (Manual) 0.0 Abs Basophils (Manual) 0.0 Toxic Granulation SLIGHT Toxic Vacuolation PRESENT Clumped Platelets PRESENT Platelet Comment DECREASED Poikilocytosis Anisocytosis 1+ Tear Drop Cells SLIGHT PT INR APTT Fibrinogen D-Dimer Carbonic Acid HCO3/H2CO3 Ratio ABG pH ABG pCO2 ABG pO2 ABG HCO3 ABG Total CO2 ABG O2 Saturation ABG Base Excess FiO2 Sodium Potassium Chloride Carbon Dioxide Anion Gap BUN Creatinine Est GFR ( Amer) Est GFR (Non-Af Amer) Est GFR (MDRD) Non-Af Glucose POC Glucose 192 H Calcium Ionized Calcium Mak Phosphorus Magnesium 1.6 Total Bilirubin Direct Bilirubin Neonat Total Bilirubin Neonat Direct Bilirubin Neonat Indirect Bili AST ALT Alkaline Phosphatase Ammonia Creatine Kinase Troponin I NT-Pro-B Natriuret Pep Total Protein Albumin Triglycerides Lipase EGFR Procalcitonin TSH Free T4 Cortisol AM Sample Cortisol PM Sample Stl C. Difficile GDH Ag Stl C.difficile Tox A&B Stl C.difficile Tox PCR Serum Alcohol SARS-CoV-2 (PCR) 07/20/20 07/20/20 07/20/20 05:00 05:00 05:00 WBC RBC Hgb Hct MCV MCH MCHC RDW Plt Count Lymph % (Auto) [place] % (Auto) Eos % (Auto) Baso % (Auto) Absolute Neuts (auto) Absolute Lymphs (auto) Absolute Monos (auto) Absolute Eos (auto) Absolute Basos (auto) Total Counted Seg Neutrophils % Seg Neuts % (Manual) Lymphocytes % (Manual) Monocytes % (Manual) Eosinophils % (Manual) Basophils % (Manual) Abs Neuts (Manual) Abs Lymphs (Manual) Abs Monocytes (Manual) Absolute Eos (Manual) Abs Basophils (Manual) Toxic Granulation Toxic Vacuolation Clumped Platelets Platelet Comment Poikilocytosis Anisocytosis Tear Drop Cells PT INR APTT Fibrinogen D-Dimer Carbonic Acid 0.83 L HCO3/H2CO3 Ratio 21:1 ABG pH 7.43 ABG pCO2 27.7 L ABG pO2 126.9 H ABG HCO3 18.1 L ABG Total CO2 18.9 L ABG O2 Saturation 98.7 H ABG Base Excess -4.7 FiO2 30% Sodium 133.6 L Potassium 4.0 Chloride 98 Carbon Dioxide 21 L Anion Gap 15 BUN 49 H Creatinine 3.65 H Est GFR ( Amer) 20 L Est GFR (Non-Af Amer) Est GFR (MDRD) Non-Af 17 L Glucose 242 H POC Glucose Calcium 9.0 Ionized Calcium Mak Phosphorus Magnesium Total Bilirubin 1.1 Direct Bilirubin 1.1 H Neonat Total Bilirubin Not Reportable Neonat Direct Bilirubin Not Reportable Neonat Indirect Bili Not Reportable AST 13 L ALT 10 Alkaline Phosphatase 108 Ammonia Creatine Kinase 25 L Troponin I NT-Pro-B Natriuret Pep Total Protein 6.5 Albumin 3.1 L Triglycerides Lipase EGFR Procalcitonin TSH Free T4 Cortisol AM Sample Cortisol PM Sample Stl C. Difficile GDH Ag Stl C.difficile Tox A&B Stl C.difficile Tox PCR Serum Alcohol SARS-CoV-2 (PCR) 07/20/20 07/20/2020 05:00 05:13 12:26 WBC RBC Hgb Hct MCV MCH MCHC RDW Plt Count Lymph % (Auto) [place] % (Auto) Eos % (Auto) Baso % (Auto) Absolute Neuts (auto) Absolute Lymphs (auto) Absolute Monos (auto) Absolute Eos (auto) Absolute Basos (auto) Total Counted Seg Neutrophils % Seg Neuts % (Manual) Lymphocytes % (Manual) Monocytes % (Manual) Eosinophils % (Manual) Basophils % (Manual) Abs Neuts (Manual) Abs Lymphs (Manual) Abs Monocytes (Manual) Absolute Eos (Manual) Abs Basophils (Manual) Toxic Granulation Toxic Vacuolation Clumped Platelets Platelet Comment Poikilocytosis Anisocytosis Tear Drop Cells PT INR APTT Fibrinogen D-Dimer Carbonic Acid HCO3/H2CO3 Ratio ABG pH ABG pCO2 ABG pO2 ABG HCO3 ABG Total CO2 ABG O2 Saturation ABG Base Excess FiO2 Sodium Potassium Chloride Carbon Dioxide Anion Gap BUN Creatinine Est GFR ( Amer) Est GFR (Non-Af Amer) Est GFR (MDRD) Non-Af Glucose POC Glucose 202 H 193 H Calcium Ionized Calcium Mak Phosphorus Magnesium Total Bilirubin Direct Bilirubin Neonat Total Bilirubin Neonat Direct Bilirubin Neonat Indirect Bili AST ALT Alkaline Phosphatase Ammonia Creatine Kinase Troponin I 0.232 NT-Pro-B Natriuret Pep Total Protein Albumin Triglycerides Lipase EGFR Procalcitonin TSH Free T4 Cortisol AM Sample Cortisol PM Sample Stl C. Difficile GDH Ag Stl C.difficile Tox A&B Stl C.difficile Tox PCR Serum Alcohol SARS-CoV-2 (PCR) 07/20/20 07/21/20 07/21/20 18:44 06:10 06:10 WBC 7.0 RBC 3.94 L Hgb 11.4 L Hct 33.8 L MCV 86 MCH 28.9 MCHC 33.7 RDW 16.5 H Plt Count 101 L Lymph % (Auto) [place] % (Auto) Eos % (Auto) Baso % (Auto) Absolute Neuts (auto) Absolute Lymphs (auto) Absolute Monos (auto) Absolute Eos (auto) Absolute Basos (auto) Total Counted Seg Neutrophils % Seg Neuts % (Manual) Lymphocytes % (Manual) Monocytes % (Manual) Eosinophils % (Manual) Basophils % (Manual) Abs Neuts (Manual) Abs Lymphs (Manual) Abs Monocytes (Manual) Absolute Eos (Manual) Abs Basophils (Manual) Toxic Granulation Toxic Vacuolation Clumped Platelets Platelet Comment Poikilocytosis Anisocytosis Tear Drop Cells PT INR APTT Fibrinogen D-Dimer Carbonic Acid HCO3/H2CO3 Ratio ABG pH ABG pCO2 ABG pO2 ABG HCO3 ABG Total CO2 ABG O2 Saturation ABG Base Excess FiO2 Sodium 134.9 L Potassium 3.1 L Chloride 99 Carbon Dioxide 21 L Anion Gap 15 BUN 46 H Creatinine 3.13 H Est GFR ( Amer) 24 L Est GFR (Non-Af Amer) Est GFR (MDRD) Non-Af 20 L Glucose 306 H POC Glucose 199 H Calcium 8.7 Ionized Calcium Mak Phosphorus 1.8 L Magnesium 1.7 Total Bilirubin Direct Bilirubin Neonat Total Bilirubin Neonat Direct Bilirubin Neonat Indirect Bili AST ALT Alkaline Phosphatase Ammonia Creatine Kinase Troponin I NT-Pro-B Natriuret Pep Total Protein Albumin 3.1 L Triglycerides Lipase EGFR Procalcitonin TSH Free T4 Cortisol AM Sample Cortisol PM Sample Stl C. Difficile GDH Ag Stl C.difficile Tox A&B Stl C.difficile Tox PCR Serum Alcohol SARS-CoV-2 (PCR) 07/21/20 07/21/20 07/21/20 06:22 13:07 17:51 WBC RBC Hgb Hct MCV MCH MCHC RDW Plt Count Lymph % (Auto) [place] % (Auto) Eos % (Auto) Baso % (Auto) Absolute Neuts (auto) Absolute Lymphs (auto) Absolute Monos (auto) Absolute Eos (auto) Absolute Basos (auto) Total Counted Seg Neutrophils % Seg Neuts % (Manual) Lymphocytes % (Manual) Monocytes % (Manual) Eosinophils % (Manual) Basophils % (Manual) Abs Neuts (Manual) Abs Lymphs (Manual) Abs Monocytes (Manual) Absolute Eos (Manual) Abs Basophils (Manual) Toxic Granulation Toxic Vacuolation Clumped Platelets Platelet Comment Poikilocytosis Anisocytosis Tear Drop Cells PT INR APTT Fibrinogen D-Dimer Carbonic Acid HCO3/H2CO3 Ratio ABG pH ABG pCO2 ABG pO2 ABG HCO3 ABG Total CO2 ABG O2 Saturation ABG Base Excess FiO2 Sodium Potassium Chloride Carbon Dioxide Anion Gap BUN Creatinine Est GFR ( Amer) Est GFR (Non-Af Amer) Est GFR (MDRD) Non-Af Glucose POC Glucose 266 H 232 H 179 H Calcium Ionized Calcium Mak Phosphorus Magnesium Total Bilirubin Direct Bilirubin Neonat Total Bilirubin Neonat Direct Bilirubin Neonat Indirect Bili AST ALT Alkaline Phosphatase Ammonia Creatine Kinase Troponin I NT-Pro-B Natriuret Pep Total Protein Albumin Triglycerides Lipase EGFR Procalcitonin TSH Free T4 Cortisol AM Sample Cortisol PM Sample Stl C. Difficile GDH Ag Stl C.difficile Tox A&B Stl C.difficile Tox PCR Serum Alcohol SARS-CoV-2 (PCR) 07/21/20 07/21/20 07/22/20 23:00 23:00 00:05 WBC 9.4 RBC 3.87 L Hgb 11.3 L Hct 33.2 L MCV 86 MCH 29.3 MCHC 34.2 RDW 17.0 H Plt Count 112 L Lymph % (Auto) [place] % (Auto) Eos % (Auto) Baso % (Auto) Absolute Neuts (auto) Absolute Lymphs (auto) Absolute Monos (auto) Absolute Eos (auto) Absolute Basos (auto) Total Counted Seg Neutrophils % Seg Neuts % (Manual) Lymphocytes % (Manual) Monocytes % (Manual) Eosinophils % (Manual) Basophils % (Manual) Abs Neuts (Manual) Abs Lymphs (Manual) Abs Monocytes (Manual) Absolute Eos (Manual) Abs Basophils (Manual) Toxic Granulation Toxic Vacuolation Clumped Platelets Platelet Comment Poikilocytosis Anisocytosis Tear Drop Cells PT INR APTT Fibrinogen D-Dimer Carbonic Acid HCO3/H2CO3 Ratio ABG pH ABG pCO2 ABG pO2 ABG HCO3 ABG Total CO2 ABG O2 Saturation ABG Base Excess FiO2 Sodium 134.3 L Potassium 2.8 L* Chloride 99 Carbon Dioxide 21 L Anion Gap 14 BUN 51 H Creatinine 3.34 H Est GFR ( Amer) 23 L Est GFR (Non-Af Amer) Est GFR (MDRD) Non-Af 19 L Glucose 251 H POC Glucose 270 H Calcium 8.9 Ionized Calcium Mak Phosphorus 1.3 L Magnesium Total Bilirubin Direct Bilirubin Neonat Total Bilirubin Neonat Direct Bilirubin Neonat Indirect Bili AST ALT Alkaline Phosphatase Ammonia Creatine Kinase Troponin I NT-Pro-B Natriuret Pep Total Protein Albumin 3.1 L Triglycerides Lipase EGFR Procalcitonin TSH Free T4 Cortisol AM Sample Cortisol PM Sample Stl C. Difficile GDH Ag Stl C.difficile Tox A&B Stl C.difficile Tox PCR Serum Alcohol SARS-CoV-2 (PCR) 07/22/20 07/22/20 07/22/20 05:00 05:02 12:35 WBC RBC Hgb Hct MCV MCH MCHC RDW Plt Count Lymph % (Auto) [place] % (Auto) Eos % (Auto) Baso % (Auto) Absolute Neuts (auto) Absolute Lymphs (auto) Absolute Monos (auto) Absolute Eos (auto) Absolute Basos (auto) Total Counted Seg Neutrophils % Seg Neuts % (Manual) Lymphocytes % (Manual) Monocytes % (Manual) Eosinophils % (Manual) Basophils % (Manual) Abs Neuts (Manual) Abs Lymphs (Manual) Abs Monocytes (Manual) Absolute Eos (Manual) Abs Basophils (Manual) Toxic Granulation Toxic Vacuolation Clumped Platelets Platelet Comment Poikilocytosis Anisocytosis Tear Drop Cells PT INR APTT Fibrinogen D-Dimer Carbonic Acid HCO3/H2CO3 Ratio ABG pH ABG pCO2 ABG pO2 ABG HCO3 ABG Total CO2 ABG O2 Saturation ABG Base Excess FiO2 Sodium 138.1 Potassium 3.2 L Chloride 102 Carbon Dioxide 22 Anion Gap 14 BUN 53 H Creatinine 3.60 H Est GFR ( Amer) 21 L Est GFR (Non-Af Amer) Est GFR (MDRD) Non-Af 17 L Glucose 125 H POC Glucose 123 H 179 H Calcium 9.2 Ionized Calcium Mak Phosphorus Magnesium Total Bilirubin Direct Bilirubin Neonat Total Bilirubin Neonat Direct Bilirubin Neonat Indirect Bili AST ALT Alkaline Phosphatase Ammonia Creatine Kinase Troponin I NT-Pro-B Natriuret Pep Total Protein Albumin Triglycerides Lipase EGFR Procalcitonin TSH Free T4 Cortisol AM Sample Cortisol PM Sample Stl C. Difficile GDH Ag Stl C.difficile Tox A&B Stl C.difficile Tox PCR Serum Alcohol SARS-CoV-2 (PCR) 07/22/20 07/23/20 07/23/20 17:05 04:00 04:00 WBC RBC Hgb Hct MCV MCH MCHC RDW Plt Count Lymph % (Auto) [place] % (Auto) Eos % (Auto) Baso % (Auto) Absolute Neuts (auto) Absolute Lymphs (auto) Absolute Monos (auto) Absolute Eos (auto) Absolute Basos (auto) Total Counted Seg Neutrophils % Seg Neuts % (Manual) Lymphocytes % (Manual) Monocytes % (Manual) Eosinophils % (Manual) Basophils % (Manual) Abs Neuts (Manual) Abs Lymphs (Manual) Abs Monocytes (Manual) Absolute Eos (Manual) Abs Basophils (Manual) Toxic Granulation Toxic Vacuolation Clumped Platelets Platelet Comment Poikilocytosis Anisocytosis Tear Drop Cells PT INR APTT Fibrinogen D-Dimer Carbonic Acid HCO3/H2CO3 Ratio ABG pH ABG pCO2 ABG pO2 ABG HCO3 ABG Total CO2 ABG O2 Saturation ABG Base Excess FiO2 Sodium 136.0 L Potassium 4.0 Chloride 102 Carbon Dioxide 20 L Anion Gap 14 BUN 63 H Creatinine 3.79 H Est GFR ( Amer) 20 L Est GFR (Non-Af Amer) Est GFR (MDRD) Non-Af 16 L Glucose 214 H POC Glucose 177 H Calcium 9.1 Ionized Calcium Mak Phosphorus Magnesium Total Bilirubin Direct Bilirubin Neonat Total Bilirubin Neonat Direct Bilirubin Neonat Indirect Bili AST ALT Alkaline Phosphatase Ammonia Creatine Kinase Troponin I NT-Pro-B Natriuret Pep Total Protein Albumin Triglycerides Lipase EGFR Procalcitonin TSH Free T4 Cortisol AM Sample Cortisol PM Sample Stl C. Difficile GDH Ag POSITIVE Stl C.difficile Tox A&B NEGATIVE Stl C.difficile Tox PCR NEGATIVE Serum Alcohol SARS-CoV-2 (PCR) 07/23/20 07/23/20 07/23/20 04:00 04:00 04:00 WBC 13.8 H RBC 3.83 L Hgb 10.8 L Hct 32.9 L MCV 86 MCH 28.3 MCHC 33.0 RDW 16.9 H Plt Count 101 L Lymph % (Auto) [place] % (Auto) Eos % (Auto) Baso % (Auto) Absolute Neuts (auto) Absolute Lymphs (auto) Absolute Monos (auto) Absolute Eos (auto) Absolute Basos (auto) Total Counted Seg Neutrophils % Seg Neuts % (Manual) Lymphocytes % (Manual) Monocytes % (Manual) Eosinophils % (Manual) Basophils % (Manual) Abs Neuts (Manual) Abs Lymphs (Manual) Abs Monocytes (Manual) Absolute Eos (Manual) Abs Basophils (Manual) Toxic Granulation Toxic Vacuolation Clumped Platelets Platelet Comment Poikilocytosis Anisocytosis Tear Drop Cells PT INR APTT Fibrinogen D-Dimer Carbonic Acid HCO3/H2CO3 Ratio ABG pH ABG pCO2 ABG pO2 ABG HCO3 ABG Total CO2 ABG O2 Saturation ABG Base Excess FiO2 Sodium Potassium Chloride Carbon Dioxide Anion Gap BUN Creatinine Est GFR ( Amer) Est GFR (Non-Af Amer) Est GFR (MDRD) Non-Af Glucose POC Glucose Calcium Ionized Calcium Mak Phosphorus Magnesium 1.7 Total Bilirubin Direct Bilirubin Neonat Total Bilirubin Neonat Direct Bilirubin Neonat Indirect Bili AST ALT Alkaline Phosphatase Ammonia Creatine Kinase Troponin I NT-Pro-B Natriuret Pep Total Protein Albumin Triglycerides 109 Lipase EGFR Procalcitonin TSH Free T4 Cortisol AM Sample Cortisol PM Sample Stl C. Difficile GDH Ag Stl C.difficile Tox A&B Stl C.difficile Tox PCR Serum Alcohol SARS-CoV-2 (PCR) 07/23/20 07/23/20 07/23/20 11:20 12:21 17:07 WBC RBC Hgb Hct MCV MCH MCHC RDW Plt Count Lymph % (Auto) [place] % (Auto) Eos % (Auto) Baso % (Auto) Absolute Neuts (auto) Absolute Lymphs (auto) Absolute Monos (auto) Absolute Eos (auto) Absolute Basos (auto) Total Counted Seg Neutrophils % Seg Neuts % (Manual) Lymphocytes % (Manual) Monocytes % (Manual) Eosinophils % (Manual) Basophils % (Manual) Abs Neuts (Manual) Abs Lymphs (Manual) Abs Monocytes (Manual) Absolute Eos (Manual) Abs Basophils (Manual) Toxic Granulation Toxic Vacuolation Clumped Platelets Platelet Comment Poikilocytosis Anisocytosis Tear Drop Cells PT INR APTT Fibrinogen D-Dimer Carbonic Acid 0.94 L HCO3/H2CO3 Ratio 20:1 ABG pH 7.41 ABG pCO2 31.1 L ABG pO2 100.4 H ABG HCO3 19.4 L ABG Total CO2 20.4 L ABG O2 Saturation 97.7 ABG Base Excess -4.3 FiO2 25% Sodium Potassium Chloride Carbon Dioxide Anion Gap BUN Creatinine Est GFR ( Amer) Est GFR (Non-Af Amer) Est GFR (MDRD) Non-Af Glucose POC Glucose 94 128 H Calcium Ionized Calcium Mak Phosphorus Magnesium Total Bilirubin Direct Bilirubin Neonat Total Bilirubin Neonat Direct Bilirubin Neonat Indirect Bili AST ALT Alkaline Phosphatase Ammonia Creatine Kinase Troponin I NT-Pro-B Natriuret Pep Total Protein Albumin Triglycerides Lipase EGFR Procalcitonin TSH Free T4 Cortisol AM Sample Cortisol PM Sample Stl C. Difficile GDH Ag Stl C.difficile Tox A&B Stl C.difficile Tox PCR Serum Alcohol SARS-CoV-2 (PCR) 07/24/20 07/24/20 07/24/20 00:04 04:25 04:52 WBC RBC Hgb Hct MCV MCH MCHC RDW Plt Count Lymph % (Auto) [place] % (Auto) Eos % (Auto) Baso % (Auto) Absolute Neuts (auto) Absolute Lymphs (auto) Absolute Monos (auto) Absolute Eos (auto) Absolute Basos (auto) Total Counted Seg Neutrophils % Seg Neuts % (Manual) Lymphocytes % (Manual) Monocytes % (Manual) Eosinophils % (Manual) Basophils % (Manual) Abs Neuts (Manual) Abs Lymphs (Manual) Abs Monocytes (Manual) Absolute Eos (Manual) Abs Basophils (Manual) Toxic Granulation Toxic Vacuolation Clumped Platelets Platelet Comment Poikilocytosis Anisocytosis Tear Drop Cells PT INR APTT Fibrinogen D-Dimer Carbonic Acid 0.92 L HCO3/H2CO3 Ratio 23:1 ABG pH 7.46 H ABG pCO2 30.6 L ABG pO2 103.7 H ABG HCO3 21.3 ABG Total CO2 22.2 L ABG O2 Saturation 98.1 H ABG Base Excess -1.7 FiO2 25% Sodium 134.5 L Potassium 4.2 Chloride 100 Carbon Dioxide 23 Anion Gap 12 BUN 51 H Creatinine 2.74 H Est GFR ( Amer) 28 L Est GFR (Non-Af Amer) Est GFR (MDRD) Non-Af 24 L Glucose 283 H POC Glucose 234 H Calcium 8.8 Ionized Calcium Mak Phosphorus 1.4 L Magnesium 1.8 Total Bilirubin Direct Bilirubin Neonat Total Bilirubin Neonat Direct Bilirubin Neonat Indirect Bili AST ALT Alkaline Phosphatase Ammonia Creatine Kinase Troponin I NT-Pro-B Natriuret Pep Total Protein Albumin Triglycerides Lipase EGFR Procalcitonin TSH Free T4 Cortisol AM Sample Cortisol PM Sample Stl C. Difficile GDH Ag Stl C.difficile Tox A&B Stl C.difficile Tox PCR Serum Alcohol SARS-CoV-2 (PCR) 07/24/20 07/24/20 07/24/20 04:52 05:21 11:40 WBC 8.5 RBC 3.79 L Hgb 11.1 L Hct 32.4 L MCV 85 MCH 29.3 MCHC 34.4 RDW 16.9 H Plt Count 83 L Lymph % (Auto) 6.9 L [place] % (Auto) 3.8 Eos % (Auto) 0.0 Baso % (Auto) 0.2 Absolute Neuts (auto) 7.5 Absolute Lymphs (auto) 0.6 Absolute Monos (auto) 0.3 Absolute Eos (auto) 0.0 Absolute Basos (auto) 0.0 Total Counted Seg Neutrophils % 89.1 H Seg Neuts % (Manual) Lymphocytes % (Manual) Monocytes % (Manual) Eosinophils % (Manual) Basophils % (Manual) Abs Neuts (Manual) Abs Lymphs (Manual) Abs Monocytes (Manual) Absolute Eos (Manual) Abs Basophils (Manual) Toxic Granulation Toxic Vacuolation Clumped Platelets Platelet Comment Poikilocytosis Anisocytosis Tear Drop Cells PT INR APTT Fibrinogen D-Dimer Carbonic Acid HCO3/H2CO3 Ratio ABG pH ABG pCO2 ABG pO2 ABG HCO3 ABG Total CO2 ABG O2 Saturation ABG Base Excess FiO2 Sodium Potassium Chloride Carbon Dioxide Anion Gap BUN Creatinine Est GFR ( Amer) Est GFR (Non-Af Amer) Est GFR (MDRD) Non-Af Glucose POC Glucose 237 H 269 H Calcium Ionized Calcium Mak Phosphorus Magnesium Total Bilirubin Direct Bilirubin Neonat Total Bilirubin Neonat Direct Bilirubin Neonat Indirect Bili AST ALT Alkaline Phosphatase Ammonia Creatine Kinase Troponin I NT-Pro-B Natriuret Pep Total Protein Albumin Triglycerides Lipase EGFR Procalcitonin TSH Free T4 Cortisol AM Sample Cortisol PM Sample Stl C. Difficile GDH Ag Stl C.difficile Tox A&B Stl C.difficile Tox PCR Serum Alcohol SARS-CoV-2 (PCR) 07/24/20 07/24/20 07/25/20 18:04 23:47 04:28 WBC 9.7 RBC 3.74 L Hgb 10.8 L Hct 32.1 L MCV 86 MCH 28.9 MCHC 33.6 RDW 16.6 H Plt Count 76 L Lymph % (Auto) 10.8 L [place] % (Auto) 6.1 Eos % (Auto) 0.1 Baso % (Auto) 0.1 Absolute Neuts (auto) 8.1 Absolute Lymphs (auto) 1.1 Absolute Monos (auto) 0.6 Absolute Eos (auto) 0.0 Absolute Basos (auto) 0.0 Total Counted Seg Neutrophils % 82.9 H Seg Neuts % (Manual) Lymphocytes % (Manual) Monocytes % (Manual) Eosinophils % (Manual) Basophils % (Manual) Abs Neuts (Manual) Abs Lymphs (Manual) Abs Monocytes (Manual) Absolute Eos (Manual) Abs Basophils (Manual) Toxic Granulation Toxic Vacuolation Clumped Platelets Platelet Comment Poikilocytosis Anisocytosis Tear Drop Cells PT INR APTT Fibrinogen D-Dimer Carbonic Acid HCO3/H2CO3 Ratio ABG pH ABG pCO2 ABG pO2 ABG HCO3 ABG Total CO2 ABG O2 Saturation ABG Base Excess FiO2 Sodium Potassium Chloride Carbon Dioxide Anion Gap BUN Creatinine Est GFR ( Amer) Est GFR (Non-Af Amer) Est GFR (MDRD) Non-Af Glucose POC Glucose 237 H 219 H Calcium Ionized Calcium Mak Phosphorus Magnesium Total Bilirubin Direct Bilirubin Neonat Total Bilirubin Neonat Direct Bilirubin Neonat Indirect Bili AST ALT Alkaline Phosphatase Ammonia Creatine Kinase Troponin I NT-Pro-B Natriuret Pep Total Protein Albumin Triglycerides Lipase EGFR Procalcitonin TSH Free T4 Cortisol AM Sample Cortisol PM Sample Stl C. Difficile GDH Ag Stl C.difficile Tox A&B Stl C.difficile Tox PCR Serum Alcohol SARS-CoV-2 (PCR) 07/25/20 07/25/20 07/25/20 04:28 04:35 05:57 WBC RBC Hgb Hct MCV MCH MCHC RDW Plt Count Lymph % (Auto) [place] % (Auto) Eos % (Auto) Baso % (Auto) Absolute Neuts (auto) Absolute Lymphs (auto) Absolute Monos (auto) Absolute Eos (auto) Absolute Basos (auto) Total Counted Seg Neutrophils % Seg Neuts % (Manual) Lymphocytes % (Manual) Monocytes % (Manual) Eosinophils % (Manual) Basophils % (Manual) Abs Neuts (Manual) Abs Lymphs (Manual) Abs Monocytes (Manual) Absolute Eos (Manual) Abs Basophils (Manual) Toxic Granulation Toxic Vacuolation Clumped Platelets Platelet Comment Poikilocytosis Anisocytosis Tear Drop Cells PT INR APTT Fibrinogen D-Dimer Carbonic Acid 0.88 L HCO3/H2CO3 Ratio 22:1 ABG pH 7.45 ABG pCO2 29.3 L ABG pO2 55.4 L ABG HCO3 20.0 ABG Total CO2 20.9 L ABG O2 Saturation 90.7 L ABG Base Excess -3.0 FiO2 25% Sodium 134.4 L Potassium 3.5 L Chloride 100 Carbon Dioxide 23 Anion Gap 11 BUN 59 H Creatinine 3.00 H Est GFR ( Amer) 26 L Est GFR (Non-Af Amer) Est GFR (MDRD) Non-Af 21 L Glucose 206 H POC Glucose 179 H Calcium 8.5 Ionized Calcium Mak Phosphorus Magnesium Total Bilirubin 0.8 Direct Bilirubin 0.8 H Neonat Total Bilirubin Not Reportable Neonat Direct Bilirubin Not Reportable Neonat Indirect Bili Not Reportable AST 27 ALT 20 Alkaline Phosphatase 112 Ammonia Creatine Kinase Troponin I NT-Pro-B Natriuret Pep Total Protein 6.2 L Albumin 2.8 L Triglycerides Lipase EGFR Procalcitonin TSH Free T4 Cortisol AM Sample Cortisol PM Sample Stl C. Difficile GDH Ag Stl C.difficile Tox A&B Stl C.difficile Tox PCR Serum Alcohol SARS-CoV-2 (PCR) 07/25/20 07/25/20 07/25/20 10:00 10:00 11:08 WBC RBC Hgb Hct MCV MCH MCHC RDW Plt Count Lymph % (Auto) [place] % (Auto) Eos % (Auto) Baso % (Auto) Absolute Neuts (auto) Absolute Lymphs (auto) Absolute Monos (auto) Absolute Eos (auto) Absolute Basos (auto) Total Counted Seg Neutrophils % Seg Neuts % (Manual) Lymphocytes % (Manual) Monocytes % (Manual) Eosinophils % (Manual) Basophils % (Manual) Abs Neuts (Manual) Abs Lymphs (Manual) Abs Monocytes (Manual) Absolute Eos (Manual) Abs Basophils (Manual) Toxic Granulation Toxic Vacuolation Clumped Platelets Platelet Comment Poikilocytosis Anisocytosis Tear Drop Cells PT INR APTT Fibrinogen D-Dimer Carbonic Acid HCO3/H2CO3 Ratio ABG pH ABG pCO2 ABG pO2 ABG HCO3 ABG Total CO2 ABG O2 Saturation ABG Base Excess FiO2 Sodium 135.9 L Potassium 3.2 L Chloride 100 Carbon Dioxide 27 Anion Gap 9 BUN 40 H Creatinine 2.11 H Est GFR ( Amer) 38 L Est GFR (Non-Af Amer) Est GFR (MDRD) Non-Af 32 L Glucose 132 H POC Glucose 130 H Calcium 8.3 L Ionized Calcium Mak Phosphorus Magnesium Cancelled 1.6 Total Bilirubin Direct Bilirubin Neonat Total Bilirubin Neonat Direct Bilirubin Neonat Indirect Bili AST ALT Alkaline Phosphatase Ammonia Creatine Kinase Troponin I NT-Pro-B Natriuret Pep Total Protein Albumin Triglycerides Lipase EGFR Procalcitonin TSH Free T4 Cortisol AM Sample Cortisol PM Sample Stl C. Difficile GDH Ag Stl C.difficile Tox A&B Stl C.difficile Tox PCR Serum Alcohol SARS-CoV-2 (PCR) 07/25/20 07/25/20 07/26/20 17:35 19:10 01:08 WBC RBC Hgb Hct MCV MCH MCHC RDW Plt Count Lymph % (Auto) [place] % (Auto) Eos % (Auto) Baso % (Auto) Absolute Neuts (auto) Absolute Lymphs (auto) Absolute Monos (auto) Absolute Eos (auto) Absolute Basos (auto) Total Counted Seg Neutrophils % Seg Neuts % (Manual) Lymphocytes % (Manual) Monocytes % (Manual) Eosinophils % (Manual) Basophils % (Manual) Abs Neuts (Manual) Abs Lymphs (Manual) Abs Monocytes (Manual) Absolute Eos (Manual) Abs Basophils (Manual) Toxic Granulation Toxic Vacuolation Clumped Platelets Platelet Comment Poikilocytosis Anisocytosis Tear Drop Cells PT INR APTT Fibrinogen D-Dimer Carbonic Acid HCO3/H2CO3 Ratio ABG pH ABG pCO2 ABG pO2 ABG HCO3 ABG Total CO2 ABG O2 Saturation ABG Base Excess FiO2 Sodium Potassium 4.1 Chloride Carbon Dioxide Anion Gap BUN Creatinine Est GFR ( Amer) Est GFR (Non-Af Amer) Est GFR (MDRD) Non-Af Glucose POC Glucose 160 H 212 H Calcium Ionized Calcium Mak Phosphorus Magnesium 2.4 H Total Bilirubin Direct Bilirubin Neonat Total Bilirubin Neonat Direct Bilirubin Neonat Indirect Bili AST ALT Alkaline Phosphatase Ammonia Creatine Kinase Troponin I NT-Pro-B Natriuret Pep Total Protein Albumin Triglycerides Lipase EGFR Procalcitonin TSH Free T4 Cortisol AM Sample Cortisol PM Sample Stl C. Difficile GDH Ag Stl C.difficile Tox A&B Stl C.difficile Tox PCR Serum Alcohol SARS-CoV-2 (PCR) 07/26/20 07/26/20 07/26/20 03:30 03:30 08:45 WBC 12.6 H RBC 3.70 L Hgb 10.3 L Hct 31.5 L MCV 85 MCH 28.0 MCHC 32.8 RDW 17.0 H Plt Count 62 L Lymph % (Auto) 9.0 L [place] % (Auto) 6.0 Eos % (Auto) 0.1 Baso % (Auto) 0.1 Absolute Neuts (auto) 10.7 H Absolute Lymphs (auto) 1.1 Absolute Monos (auto) 0.8 Absolute Eos (auto) 0.0 Absolute Basos (auto) 0.0 Total Counted Seg Neutrophils % 84.8 H Seg Neuts % (Manual) Lymphocytes % (Manual) Monocytes % (Manual) Eosinophils % (Manual) Basophils % (Manual) Abs Neuts (Manual) Abs Lymphs (Manual) Abs Monocytes (Manual) Absolute Eos (Manual) Abs Basophils (Manual) Toxic Granulation Toxic Vacuolation Clumped Platelets Platelet Comment Poikilocytosis Anisocytosis Tear Drop Cells PT INR APTT Fibrinogen D-Dimer Carbonic Acid 1.04 L HCO3/H2CO3 Ratio 20:1 ABG pH 7.40 ABG pCO2 34.7 L ABG pO2 100.5 H ABG HCO3 21.0 ABG Total CO2 22.0 L ABG O2 Saturation 97.6 ABG Base Excess -3.3 FiO2 30% Sodium 136.2 L Potassium 3.7 Chloride 101 Carbon Dioxide 24 Anion Gap 11 BUN 47 H Creatinine 2.40 H Est GFR ( Amer) 33 L Est GFR (Non-Af Amer) Est GFR (MDRD) Non-Af 27 L Glucose 132 H POC Glucose Calcium 8.5 Ionized Calcium Mak Phosphorus 0.6 L Magnesium 2.4 H Total Bilirubin Direct Bilirubin Neonat Total Bilirubin Neonat Direct Bilirubin Neonat Indirect Bili AST ALT Alkaline Phosphatase Ammonia Creatine Kinase Troponin I NT-Pro-B Natriuret Pep Total Protein Albumin Triglycerides 103 Lipase EGFR Procalcitonin TSH Free T4 Cortisol AM Sample Cortisol PM Sample Stl C. Difficile GDH Ag Stl C.difficile Tox A&B Stl C.difficile Tox PCR Serum Alcohol SARS-CoV-2 (PCR) 07/26/20 07/26/20 07/26/20 11:46 17:30 17:34 WBC RBC Hgb Hct MCV MCH MCHC RDW Plt Count Lymph % (Auto) [place] % (Auto) Eos % (Auto) Baso % (Auto) Absolute Neuts (auto) Absolute Lymphs (auto) Absolute Monos (auto) Absolute Eos (auto) Absolute Basos (auto) Total Counted Seg Neutrophils % Seg Neuts % (Manual) Lymphocytes % (Manual) Monocytes % (Manual) Eosinophils % (Manual) Basophils % (Manual) Abs Neuts (Manual) Abs Lymphs (Manual) Abs Monocytes (Manual) Absolute Eos (Manual) Abs Basophils (Manual) Toxic Granulation Toxic Vacuolation Clumped Platelets Platelet Comment Poikilocytosis Anisocytosis Tear Drop Cells PT INR APTT Fibrinogen D-Dimer Carbonic Acid HCO3/H2CO3 Ratio ABG pH ABG pCO2 ABG pO2 ABG HCO3 ABG Total CO2 ABG O2 Saturation ABG Base Excess FiO2 Sodium Potassium 4.7 D Chloride Carbon Dioxide Anion Gap BUN Creatinine Est GFR ( Amer) Est GFR (Non-Af Amer) Est GFR (MDRD) Non-Af Glucose POC Glucose 199 H 230 H Calcium Ionized Calcium Mak Phosphorus 3.1 D Magnesium 2.2 Total Bilirubin Direct Bilirubin Neonat Total Bilirubin Neonat Direct Bilirubin Neonat Indirect Bili AST ALT Alkaline Phosphatase Ammonia Creatine Kinase Troponin I NT-Pro-B Natriuret Pep Total Protein Albumin Triglycerides Lipase EGFR Procalcitonin TSH Free T4 Cortisol AM Sample Cortisol PM Sample Stl C. Difficile GDH Ag Stl C.difficile Tox A&B Stl C.difficile Tox PCR Serum Alcohol SARS-CoV-2 (PCR) 07/27/20 07/27/20 07/27/20 00:29 03:40 03:40 WBC 9.7 RBC 3.45 L Hgb 9.9 L Hct 29.4 L MCV 85 MCH 28.7 MCHC 33.6 RDW 16.8 H Plt Count 62 L Lymph % (Auto) 9.6 L [place] % (Auto) 7.0 Eos % (Auto) 0.0 Baso % (Auto) 0.1 Absolute Neuts (auto) 8.1 Absolute Lymphs (auto) 0.9 Absolute Monos (auto) 0.7 Absolute Eos (auto) 0.0 Absolute Basos (auto) 0.0 Total Counted Seg Neutrophils % 83.3 H Seg Neuts % (Manual) Lymphocytes % (Manual) Monocytes % (Manual) Eosinophils % (Manual) Basophils % (Manual) Abs Neuts (Manual) Abs Lymphs (Manual) Abs Monocytes (Manual) Absolute Eos (Manual) Abs Basophils (Manual) Toxic Granulation Toxic Vacuolation Clumped Platelets Platelet Comment Poikilocytosis Anisocytosis Tear Drop Cells PT INR APTT Fibrinogen D-Dimer Carbonic Acid 1.16 HCO3/H2CO3 Ratio 18:1 ABG pH 7.35 ABG pCO2 38.7 ABG pO2 90.4 ABG HCO3 20.9 ABG Total CO2 22.1 L ABG O2 Saturation 96.6 ABG Base Excess -4.3 FiO2 30% Sodium Potassium Chloride Carbon Dioxide Anion Gap BUN Creatinine Est GFR ( Amer) Est GFR (Non-Af Amer) Est GFR (MDRD) Non-Af Glucose POC Glucose 224 H Calcium Ionized Calcium Mak 1.13 L Phosphorus Magnesium Total Bilirubin Direct Bilirubin Neonat Total Bilirubin Neonat Direct Bilirubin Neonat Indirect Bili AST ALT Alkaline Phosphatase Ammonia Creatine Kinase Troponin I NT-Pro-B Natriuret Pep Total Protein Albumin Triglycerides Lipase EGFR Procalcitonin TSH Free T4 Cortisol AM Sample Cortisol PM Sample Stl C. Difficile GDH Ag Stl C.difficile Tox A&B Stl C.difficile Tox PCR Serum Alcohol SARS-CoV-2 (PCR) 07/27/20 07/27/20 07/27/20 03:40 12:36 15:05 WBC RBC Hgb Hct MCV MCH MCHC RDW Plt Count Lymph % (Auto) [place] % (Auto) Eos % (Auto) Baso % (Auto) Absolute Neuts (auto) Absolute Lymphs (auto) Absolute Monos (auto) Absolute Eos (auto) Absolute Basos (auto) Total Counted Seg Neutrophils % Seg Neuts % (Manual) Lymphocytes % (Manual) Monocytes % (Manual) Eosinophils % (Manual) Basophils % (Manual) Abs Neuts (Manual) Abs Lymphs (Manual) Abs Monocytes (Manual) Absolute Eos (Manual) Abs Basophils (Manual) Toxic Granulation Toxic Vacuolation Clumped Platelets Platelet Comment Poikilocytosis Anisocytosis Tear Drop Cells PT INR APTT Fibrinogen D-Dimer Carbonic Acid 0.98 L HCO3/H2CO3 Ratio 21:1 ABG pH 7.42 ABG pCO2 32.5 L ABG pO2 113.9 H ABG HCO3 20.7 ABG Total CO2 21.7 L ABG O2 Saturation 98.3 H ABG Base Excess -3.1 FiO2 30% Sodium 137.7 Potassium 3.9 Chloride 102 Carbon Dioxide 22 Anion Gap 14 BUN 60 H Creatinine 2.64 H Est GFR ( Amer) 30 L Est GFR (Non-Af Amer) Est GFR (MDRD) Non-Af 25 L Glucose 179 H POC Glucose 149 H Calcium 8.3 L Ionized Calcium Mak Phosphorus 2.7 Magnesium 2.2 Total Bilirubin 0.9 Direct Bilirubin 0.9 H Neonat Total Bilirubin Not Reportable Neonat Direct Bilirubin Not Reportable Neonat Indirect Bili Not Reportable AST 16 L ALT 22 Alkaline Phosphatase 108 Ammonia Creatine Kinase Troponin I NT-Pro-B Natriuret Pep Total Protein 6.2 L Albumin 3.0 L Triglycerides Lipase EGFR Procalcitonin TSH Free T4 Cortisol AM Sample Cortisol PM Sample Stl C. Difficile GDH Ag Stl C.difficile Tox A&B Stl C.difficile Tox PCR Serum Alcohol SARS-CoV-2 (PCR) 07/27/20 07/27/20 07/28/20 17:47 23:23 04:35 WBC RBC Hgb Hct MCV MCH MCHC RDW Plt Count Lymph % (Auto) [place] % (Auto) Eos % (Auto) Baso % (Auto) Absolute Neuts (auto) Absolute Lymphs (auto) Absolute Monos (auto) Absolute Eos (auto) Absolute Basos (auto) Total Counted Seg Neutrophils % Seg Neuts % (Manual) Lymphocytes % (Manual) Monocytes % (Manual) Eosinophils % (Manual) Basophils % (Manual) Abs Neuts (Manual) Abs Lymphs (Manual) Abs Monocytes (Manual) Absolute Eos (Manual) Abs Basophils (Manual) Toxic Granulation Toxic Vacuolation Clumped Platelets Platelet Comment Poikilocytosis Anisocytosis Tear Drop Cells PT INR APTT Fibrinogen D-Dimer Carbonic Acid HCO3/H2CO3 Ratio ABG pH ABG pCO2 ABG pO2 ABG HCO3 ABG Total CO2 ABG O2 Saturation ABG Base Excess FiO2 Sodium 136.0 L Potassium 3.6 Chloride 101 Carbon Dioxide 24 Anion Gap 11 BUN 50 H Creatinine 2.10 H Est GFR ( Amer) 39 L Est GFR (Non-Af Amer) Est GFR (MDRD) Non-Af 32 L Glucose 122 H POC Glucose 234 H 212 H Calcium 8.5 Ionized Calcium Mak Phosphorus 2.1 L Magnesium Total Bilirubin Direct Bilirubin Neonat Total Bilirubin Neonat Direct Bilirubin Neonat Indirect Bili AST ALT Alkaline Phosphatase Ammonia Creatine Kinase Troponin I NT-Pro-B Natriuret Pep Total Protein Albumin Triglycerides Lipase EGFR Procalcitonin TSH Free T4 Cortisol AM Sample Cortisol PM Sample Stl C. Difficile GDH Ag Stl C.difficile Tox A&B Stl C.difficile Tox PCR Serum Alcohol SARS-CoV-2 (PCR) 07/28/20 07/28/20 07/28/20 04:35 05:30 11:35 WBC 8.9 RBC 3.25 L Hgb 9.3 L Hct 27.5 L MCV 85 MCH 28.7 MCHC 33.8 RDW 17.1 H Plt Count 72 L Lymph % (Auto) 11.5 L [place] % (Auto) 8.8 Eos % (Auto) 0.3 Baso % (Auto) 0.4 Absolute Neuts (auto) 7.0 Absolute Lymphs (auto) 1.0 Absolute Monos (auto) 0.8 Absolute Eos (auto) 0.0 Absolute Basos (auto) 0.0 Total Counted Seg Neutrophils % 79.0 H Seg Neuts % (Manual) Lymphocytes % (Manual) Monocytes % (Manual) Eosinophils % (Manual) Basophils % (Manual) Abs Neuts (Manual) Abs Lymphs (Manual) Abs Monocytes (Manual) Absolute Eos (Manual) Abs Basophils (Manual) Toxic Granulation Toxic Vacuolation Clumped Platelets Platelet Comment Poikilocytosis Anisocytosis Tear Drop Cells PT INR APTT Fibrinogen D-Dimer Carbonic Acid HCO3/H2CO3 Ratio ABG pH ABG pCO2 ABG pO2 ABG HCO3 ABG Total CO2 ABG O2 Saturation ABG Base Excess FiO2 Sodium Potassium Chloride Carbon Dioxide Anion Gap BUN Creatinine Est GFR ( Amer) Est GFR (Non-Af Amer) Est GFR (MDRD) Non-Af Glucose POC Glucose 122 H 159 H Calcium Ionized Calcium Mak Phosphorus Magnesium Total Bilirubin Direct Bilirubin Neonat Total Bilirubin Neonat Direct Bilirubin Neonat Indirect Bili AST ALT Alkaline Phosphatase Ammonia Creatine Kinase Troponin I NT-Pro-B Natriuret Pep Total Protein Albumin Triglycerides Lipase EGFR Procalcitonin TSH Free T4 Cortisol AM Sample Cortisol PM Sample Stl C. Difficile GDH Ag Stl C.difficile Tox A&B Stl C.difficile Tox PCR Serum Alcohol SARS-CoV-2 (PCR) 07/28/20 07/28/20 12:42 16:35 WBC RBC Hgb Hct MCV MCH MCHC RDW Plt Count Lymph % (Auto) [place] % (Auto) Eos % (Auto) Baso % (Auto) Absolute Neuts (auto) Absolute Lymphs (auto) Absolute Monos (auto) Absolute Eos (auto) Absolute Basos (auto) Total Counted Seg Neutrophils % Seg Neuts % (Manual) Lymphocytes % (Manual) Monocytes % (Manual) Eosinophils % (Manual) Basophils % (Manual) Abs Neuts (Manual) Abs Lymphs (Manual) Abs Monocytes (Manual) Absolute Eos (Manual) Abs Basophils (Manual) Toxic Granulation Toxic Vacuolation Clumped Platelets Platelet Comment Poikilocytosis Anisocytosis Tear Drop Cells PT 15.0 INR 1.16 APTT 32.8 Fibrinogen 398 D-Dimer 5.29 H Carbonic Acid HCO3/H2CO3 Ratio ABG pH ABG pCO2 ABG pO2 ABG HCO3 ABG Total CO2 ABG O2 Saturation ABG Base Excess FiO2 Sodium Potassium Chloride Carbon Dioxide Anion Gap BUN Creatinine Est GFR ( Amer) Est GFR (Non-Af Amer) Est GFR (MDRD) Non-Af Glucose POC Glucose 221 H Calcium Ionized Calcium [place] Phosphorus Magnesium Total Bilirubin Direct Bilirubin Neonat Total Bilirubin Neonat Direct Bilirubin Neonat Indirect Bili AST ALT Alkaline Phosphatase Ammonia Creatine Kinase Troponin I NT-Pro-B Natriuret Pep Total Protein Albumin Triglycerides Lipase EGFR Procalcitonin TSH Free T4 Cortisol AM Sample Cortisol PM Sample Stl C. Difficile GDH Ag Stl C.difficile Tox A&B Stl C.difficile Tox PCR Serum Alcohol SARS-CoV-2 (PCR) Chest X-Ray 07/09/20 13:50 IMPRESSION: Stable enlarged cardiac silhouette, mild bilateral pleural effusions and bibasilar opacities, left greater than right. Head CT 07/09/20 14:42 IMPRESSION: 1. No significant interval changes since the prior examination dated 07/03/2020. No acute intracranial abnormality. 2. Chronic small vessel ischemic changes changes and mild atrophy. 3. Additional stable findings as above. EVIDENCE OF ACUTE STROKE: NO Foot X-Ray 07/10/20 00:00 IMPRESSION: SEVERE DIFFUSE DEMINERALIZATION. CHRONIC CHANGES IN THE 5TH TOE. PROGRESSIVE DESTRUCTION OF THE 2ND TOE. MAY BE DUE TO OSTEOMYELITIS. Chest X-Ray 07/10/20 16:17 IMPRESSION: 1. Interval placement of endotracheal tube, tip is approximately 3.4 cm proximal to the joselito. Nasogastric tube with the tip overlying the body of the stomach. No evidence of pneumothorax. 2. Lies, unchanged finding since the prior study dated 07/09/2020. Head CT 07/10/20 16:23 IMPRESSION: 1. No significant interval changes since the prior examinations dated 07/09/2020, 07/03/2020 and 04/12/2020. No acute intracranial abnormality. 2. Chronic mild small vessel ischemic changes. Stable appearance to the low attenuated area in the region of the right hankins radiata. Further evaluation with MRI Brain maybe helpful to exclude acute changes. 3. New finding of a fluid collection within the posterior nasopharynx which lies anterior and adjacent to the adenoids and extends into the oropharynx. Interval placement of endotracheal and nasogastric tube since the previous study dated 07/09/2020. This finding may be on an inflammatory basis, possibly due to reflux. Correlation suggested. EVIDENCE OF ACUTE STROKE: NO Chest X-Ray 07/13/20 00:00 IMPRESSION: The enteric tube is malpositioned and its tip projects at the level of the joselito within the thoracic esophagus. Otherwise unchanged radiographic appearance of the chest. Chest X-Ray 07/15/20 00:00 IMPRESSION: Repositioning of the enteric tube with the tip now projecting over the left upper quadrant. Otherwise, stable examination. Chest X-Ray 07/17/20 00:00 IMPRESSION: NO SIGNIFICANT CHANGE IN APPEARANCE OF THE CHEST. Chest X-Ray 07/17/20 12:24 IMPRESSION: SATISFACTORY POSITION OF THE ENDOTRACHEAL TUBE AND NASOGASTRIC TUBE. NO SIGNIFICANT CHANGE IN APPEARANCE OF THE CHEST. Chest X-Ray 07/23/20 00:00 IMPRESSION: No change. Chest X-Ray 07/24/20 05:00 IMPRESSION: No significant change. No pneumothorax. Chest X-Ray 07/25/20 04:00 IMPRESSION: Unchanged radiographic appearance of the chest. Chest X-Ray 07/27/20 05:00 IMPRESSION: 1. Stable pulmonary exam. 2. A focus of extra thoracic lucency adjacent to the right lower chest wall on the frontal radiograph may be related to technique/patient positioning ; subcutaneous emphysema may have a similar appearance. Consider repeat imaging with attention to patient positioning for improved characterization. 3. Stable lines and tubes. IMPRESSION/RECOMMENDATION: 1. Acute hypercapnic respiratory failure. Patient intubated. 2. Hypotension: Blood pressure today is in the high 90s. He is got as yet required reinstitution of pressors. Will watch. The patient is on high-dose corticosteroid therapy. 3. End-stage renal disease on hemodialysis. 4. Possible osteomyelitis of the right foot. Recommend antibiotics. 5. Ischemic cardiomyopathy with moderately reduced LV ejection fraction. 6. Coronary artery disease, patient's troponin was elevated but this may be secondary to supply demand mismatch rather than CA the cause is being hypotension, respiratory failure and renal failure. 7. Diabetes mellitus: Continue high-level antidiabetic treatment. 8. History of prior CVA. 9. 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 Is there is also causing respiratory muscle weakness causing hypoventilation versus central sleep apnea. Will recommend a trial dose of modanafinil. Medications reviewed. Medical regimen management plan discussed with the bell valet. Medical decision making is of moderate complexity. 40 minutes spent as patient more than 50% of time spent in direct patient care. Will follow.
[2020-07-27] MEDS: LATANOPROST 0.005% OPH SOLN 2.5 ML OU SCH (21:17)
[2020-07-28] MEDS: ALBUTEROL SULFATE 0.083% NEB 2.5 MG/3 ML AMPUL NEB SCH ×6 (00:21→19:57)
[2020-07-28 05:21] LABS: ANION GAP 11 (5-19); BLOOD UREA NITROGEN 50 mg/dL (7-20); CALCIUM 8.5 mg/dL (8.4-10.2); CARBON DIOXIDE 24 mmol/L (22-30); CHLORIDE 101 mmol/L (98-107); GLUCOSE 122 mg/dL (75-110); PHOSPHORUS 2.1 mg/dL (2.5-4.5); POTASSIUM 3.6 mmol/L (3.6-5.0)
[2020-07-28 05:36] LABS: ABSOLUTE MONOCYTES (AUTO) 0.8 10^3/uL (0.1-1.4); BASOPHILS % (AUTO) 0.4 % (0-2); EOSINOPHILS % (AUTO) 0.3 % (0-6); HEMATOCRIT 27.5 % (37.9-51.0); HEMOGLOBIN 9.3 g/dL (13.5-17.0); LYMPHOCYTES % (AUTO) 11.5 % (13-45); MEAN CORPUSCULAR HEMOGLOBIN 28.7 pg (27.0-33.4); MEAN CORPUSCULAR HGB CONC 33.8 g/dL (32.0-36.0); MEAN CORPUSCULAR VOLUME 85 fl (80-97); MONOCYTES % (AUTO) 8.8 % (3-13); RED BLOOD COUNT 3.25 10^6/uL (4.35-5.55); RED CELL DISTRIBUTION WIDTH 17.1 % (11.5-14.0); TOTAL CELLS COUNTED % (AUTO) 100 %; WHITE BLOOD COUNT 8.9 10^3/uL (4.0-10.5)
[2020-07-28] MEDS: METOCLOPRAMIDE HCL ORAL SOLN 10 MG/10 ML UDCUP NG SCH ×3 (05:51→17:35)
[2020-07-28] MEDS: INSULIN REG, HUMAN 100 UNIT/ML 3 ML VIAL (PYX) SUBCUT SCH ×3 (05:51→17:22)
[2020-07-28] MEDS: VANCOMYCIN HCL INJ 500 MG VIAL NG SCH ×2 (05:52→11:53)
[2020-07-28 06:11] LABS: PLATELET COUNT 72 10^3/uL (150-450)
[2020-07-28] MEDS: BUDESONIDE NEB 0.25 MG/2 ML AMPUL NEB SCH ×2 (07:44→19:57)
[2020-07-28] MEDS ORDERED: POTASSIUM PHOS,M-BASIC-D-BASIC 15 MMOL in NORMAL SALINE 250 ML IV ONE ×2 (08:00→09:30)
--- NOTE | 2020-07-28 09:47 | PDOC CRITICAL CARE PROG REPORT ---
General Date:: 07/27/20 ICU Day:: 9 Ventilator Day:: 9 Hospital Day:: 17 Resuscitation Status: Full Code Events in the past 12 to 24 Hours:: This 64-year-old -[place] male was originally admitted on 06/19/2020 with altered mental status. His reported that he had been demonstrating confusion for at least a couple of days prior to presentation. In addition, he presented with hypotension. He was admitted for further evaluation of possible sepsis. He was admitted to IMCU but transferred within 24 hours to the ICU after he became obtunded. pH 6.9, PCO2 130. He was intubated in the ICU. He subsequently improved and transferred out only to return about a day later (07/17/2020) again with hypotension and acute hypercapnic respiratory failure. He is an end-stage renal disease patient on hemodialysis and has a history of Guillain-Ventura syndrome. 07/23: Awake. Does not clearly follow commands. He demonstrates rhythmic movements, which are most notable involving the face (right-sided) and right arm. Remains intubated. Off sedation. Nurse reports that he continues to have copious amounts of watery diarrhea. Discussed with Dr. Tavares (nephrology). 07/24: Resting comfortably on the ventilator. Now on sedation. No longer demonstrating rhythmic contractions. 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 Phosphorus 1.4. Started today on Solu-Medrol 60 mg IV every 6 hours x4 doses followed by 60 mg IV daily, directed at the patient's AIDP/CIDP. 07/25: HD this a.m. Overnight, the nursing staff reports that the patient had a bout of emesis, raising suspicion for an aspiration event. Copious endotracheal secretions are noted this morning. Platelets 76, downtrending. Still on p ropofol. During sedation vacation, the patient promptly demonstrates increased motor activity with intermittent episodes of "rhythmic movement" as previously seen. 07/26: Resting comfortably on the ventilator. ABG this a.m. suggest improvement in A-a gradient. Still demonstrates rhythmic contractions. Off sedation. Despite demonstrating rhythmic contractions (partial seizures?), the patient does seem to interact and does follow some commands. Phosphorus 0.6 this a.m., concerning for depletion of phosphorus due to seizure/tremor activity. K-Phos replacement ordered. Platelets down to 62. 9/11: Synchronous with the ventilator. This is a bit of a surprise, as his ABG pH is less than 7.4. On the other hand, he demonstrates considerable improvement in right upper extremity strength. He is possibly moving his right arm. No longer demonstrating resting tremors. Off sedation. Platelets 62 again today. Heparin was changed to Arixtra for DVT prophylaxis. Platelets are not lower, but not higher. Review of systems relevant to events:: Neurological Reason for ICU Addmission:: Intubated and not responsive. - Medications: Medications reviewed and adjusted accordingly: Yes Physical Exam Vital Signs: Temp Pulse Resp BP Pulse Ox 97.6 F 61 19 131/63 H 100 07/27/20 10:00 07/27/20 08:38 07/27/20 11:10 07/27/20 11:10 07/27/20 11:10 Intake & Output 07/26/20 07/27/20 07/28/20 06:59 06:59 06:59 Intake Total 2422 1300 0 Output Total 1619 460 0 Balance 803 840 0 Weight 63.5 kg 62.9 kg Weight/Height Weight 62.9 kg Height 1.7 m General appearance: PRESENT: no acute distress, well-developed, well-nourished Head exam: PRESENT: atraumatic, normocephalic Eye exam: PRESENT: conjunctiva pink, EOMI, PERRLA. ABSENT: scleral icterus Mouth exam: PRESENT: moist, tongue midline Neck exam: ABSENT: carotid bruit, JVD, lymphadenopathy, thyromegaly Respiratory exam: PRESENT: rales, rhonchi. ABSENT: wheezes Cardiovascular exam: PRESENT: RRR. ABSENT: diastolic murmur, rubs, systolic murmur Pulses: PRESENT: normal dorsalis pedis pul GI/Abdominal exam: PRESENT: normal bowel sounds, soft. ABSENT: distended, guarding, mass, organolmegaly, rebound, tenderness Gentrourinary exam: PRESENT: indwelling catheter Extremities exam: PRESENT: full ROM. ABSENT: calf tenderness, clubbing, pedal edema Musculoskeletal exam: PRESENT: other - Necrotic/ischemic toes Neurological exam: PRESENT: awake, CN II-XII grossly intact, motor sensory deficit - Clearly demonstrates increased right upper extremity motor strength.. ABSENT: reflexes normal Psychiatric exam: ABSENT: agitated, anxious Tubes/Lines: PRESENT: Endotracheal Tube, Central Line - Left IJ, Dialysis catheter - Right subclavian, Other - Orogastric Laboratory/Radiographs Laboratory Results: 07/27/20 03:40 07/27/20 03:40 07/26/20 07/27/20 07/27/20 17:34 03:40 03:40 WBC 9.7 RBC 3.45 L Hgb 9.9 L Hct 29.4 L MCV 85 MCH 28.7 MCHC 33.6 RDW 16.8 H Plt Count 62 L Seg Neutrophils % 83.3 H Carbonic Acid 1.16 HCO3/H2CO3 Ratio 18:1 ABG pH 7.35 ABG pCO2 38.7 ABG pO2 90.4 ABG HCO3 20.9 ABG O2 Saturation 96.6 ABG Base Excess -4.3 FiO2 30% Sodium Potassium 4.7 D Chloride Carbon Dioxide Anion Gap BUN Creatinine Est GFR ( Amer) Glucose Calcium Ionized Calcium Mak 1.13 L Phosphorus 3.1 D Magnesium 2.2 Total Bilirubin AST Alkaline Phosphatase Total Protein Albumin 07/27/20 03:40 WBC RBC Hgb Hct MCV MCH MCHC RDW Plt Count Seg Neutrophils % Carbonic Acid HCO3/H2CO3 Ratio ABG pH ABG pCO2 ABG pO2 ABG HCO3 ABG O2 Saturation ABG Base Excess FiO2 Sodium 137.7 Potassium 3.9 Chloride 102 Carbon Dioxide 22 Anion Gap 14 BUN 60 H Creatinine 2.64 H Est GFR ( Amer) 30 L Glucose 179 H Calcium 8.3 L Ionized Calcium Mak Phosphorus 2.7 Magnesium 2.2 Total Bilirubin 0.9 AST 16 L Alkaline Phosphatase 108 Total Protein 6.2 L Albumin 3.0 L 07/09/20 07/20/20 07/20/20 11:47 05:00 05:00 Creatine Kinase 25 L Troponin I 0.235 0.232 NT-Pro-B Natriuret Pep [id number] H Impressions: Foot X-Ray 07/10/20 00:00 IMPRESSION: SEVERE DIFFUSE DEMINERALIZATION. CHRONIC CHANGES IN THE 5TH TOE. PROGRESSIVE DESTRUCTION OF THE 2ND TOE. MAY BE DUE TO OSTEOMYELITIS. Head CT 07/10/20 16:23 IMPRESSION: 1. No significant interval changes since the prior examinations dated 07/09/2020, 07/03/2020 and 04/12/2020. No acute intracranial abnormality. 2. Chronic mild small vessel ischemic changes. Stable appearance to the low attenuated area in the region of the right hankins radiata. Further evaluation w ith MRI Brain maybe helpful to exclude acute changes. 3. New finding of a fluid collection within the posterior nasopharynx which lies anterior and adjacent to the adenoids and extends into the oropharynx. Interval placement of endotracheal and nasogastric tube since the previous study dated 07/09/2020. This finding may be on an inflammatory basis, possibly due to reflux. Correlation suggested. EVIDENCE OF ACUTE STROKE: NO Chest X-Ray 07/27/20 05:00 IMPRESSION: 1. Stable pulmonary exam. 2. A focus of extra thoracic lucency adjacent to the right lower chest wall on the frontal radiograph may be related to technique/patient positioning ; subcutaneous emphysema may have a similar appearance. Consider repeat imaging with attention to patient positioning for improved characterization. 3. Stable lines and tubes. All labs, radiographs, diagnostic studies and EKGs were personally reviewed: Yes In addition, reports of radiographic and diagnostic studies were read: Yes Assessment and Plan - Diagnosis (1) Endotracheally intubated Is this a current diagnosis for this admission?: Yes Plan: * Continue PRVC mode. Titrate ventilator settings based on ABG results. * Loading dose of Keppra on 07/26. No Keppra will be administered today. * Repeat trach aspirate, blood cultures. 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 * He has been on Solu-Cortef during his hospitalization; however this dosing is not sufficient to cover for treatment of AIDP or CIDP. * Increase Solu-Medrol to 60 mg IV every 6 hours x3 days followed by 60 mg daily (do not decrease until sign of clinical benefit). * Wheelchair bound according to . (3) Thrombocytopenia Is this a current diagnosis for this admission?: Yes Plan: * Off Pepcid. On Protonix. * Discontinue heparin. * Arixtra for DVT prophylaxis. * Will need evaluation for heparin-induced thrombocytopenia. (4) Hypomagnesemia Is this a current diagnosis for this admission?: Yes (5) Anemia in chronic kidney disease (CKD) Qualifiers: Chronic kidney disease stage: on chronic dialysis Qualified Code(s): N18.6 - End stage renal disease; D63.1 - Anemia in chronic kidney disease; Z99.2 - Dependence on renal dialysis Is this a current diagnosis for this admission?: Yes (6) End stage renal disease Is this a current diagnosis for this admission?: Yes (7) Hypokalemia Is this a current diagnosis for this admission?: Yes (8) Leukocytosis Is this a current diagnosis for this admission?: Yes Plan: * Repeat trach aspirate and blood cultures today. * Trach aspirate (07/13) isolated E. coli. 1 of 2 blood cultures isolated S. aureus (MSSA, 07/09). * Repeat blood cultures and trach aspirate. Completed treatment course of cefepime. * Of note, the patient has had continued systemic steroid exposure during this time. * C. difficile antigen positive but toxin negative. WIll not initiate treatment for C. difficile at this time. (9) COVID-19 ruled out by laboratory testing Is this a current diagnosis for this admission?: Yes Critical Time Critical Time (minutes): 60 Level of Care: ICU -: 1. The care of a critical patient is a dynamic process. This note is a sales and marketing representative synopsis but static in nature. The timeframe for treatments given in order is not necessarily the actual time these treatments may have been done. 2. This patient requires critical care secondary to ongoing requirements for therapy not offered or safe outside the critical care environment. Transfer to a lower level of care will result in altered life or limb morbidity and mortality. 3. Multidisciplinary rounds completed. 4. ABCDE bundle addressed.
[2020-07-28] MEDS: METHYLPREDNISOLONE INJ 125 MG/2 ML SDV IV SCH ×2 (10:03→18:48)
[2020-07-28] MEDS: PANTOPRAZOLE SODIUM 40 MG VIAL IV SCH (10:03)
[2020-07-28] MEDS: FONDAPARINUX SODIUM INJ 2.5 MG/0.5 ML DISP.SYRIN SUBCUT SCH (10:04)
[2020-07-28] MEDS: DOCUSATE SODIUM 100 MG/10 ML UDC NG SCH ×2 (10:04→10:16)
[2020-07-28] MEDS: COLCHICINE 0.6 MG TABLET NG SCH ×2 (10:17→17:35)
[2020-07-28] MEDS: AMINO AC/PROTEIN HYDR/WHEY PRO 11 GM/45 ML PKT NG SCH ×2 (10:17→17:35)
[2020-07-28 13:11] LABS: FIBRINOGEN 398 mg/dL (209-497); INTERNATIONAL RATION (INR) 1.16
[2020-07-28 13:12] LABS: PARTIAL THROMBOPLASTIN TIME 32.8 SEC (23.5-35.8)
[2020-07-28 13:30] LABS: D-DIMER 5.29 ug/mL (0.00-0.50)
--- NOTE | 2020-07-28 14:39 | Progress Note ---
Provider Note Provider Note: CARDIOLOGY PROGRESS NOTE by Dr. Samia Roper on 07/28/2020. OBJECTIVE. The patient is on high-dose of steroids and has made slight improvement and is awake although nonverbal. He has weak movements of his upper extremity which is a change from before on the positive side. The patient has less episodes of Mobitz type I Wenckebach second-degree AV block. There is no ventricular arrhythmias seen on the monitor. He is blood pressure is stable without any pressors. PHYSICAL EXAMINATION: The patient appears to be chronically ill and malnourished and emaciated. Selected Entries 07/28/20 07/28/20 07/28/20 11:52 12:00 14:20 Heart Rate ( 68 Monitors) Respiratory Rate Blood Pressure 109/56 L Blood Pressure 73 Mean O2 Sat by Pulse 100 100 Oximetry Oxygen Delivery Mechanical Method ( Ventilator includes room air) Fraction of 30 Inspired Oxygen (FIO2) 07/28/20 07/28/20 14:49 17:19 Heart Rate ( 79 98 Monitors) Respiratory 16 Rate Blood Pressure 124/82 Blood Pressure 96 Mean O2 Sat by Pulse 100 Oximetry Oxygen Delivery Method ( includes room air) Fraction of Inspired Oxygen (FIO2) HEAD: Is atraumatic normocephalic. EYES: Pupils equal reactive to light. ENT is negative. There is right facial droop present. NECK: Supple. There is no JVD. Carotids are equal there is no bruits. Lungs: Fairly clear. Heart S1-S2 is heard there is no S3 gallop. There is no S4 gallop. There is no rub. ABDOMEN: Soft nontender. There is no hepatosplenomegaly. Bowel sounds well heard. EXTREMITIES: Femorals are diminished. Leg pulses are diminished. There is no pedal edema there is wasting of the muscles of the lower xtremities. 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 He is able to move his left upper extremity but weakly. Psychiatric exam not performed due to patient mental status. Chest X-Ray 07/09/20 13:50 IMPRESSION: Stable enlarged cardiac silhouette, mild bilateral pleural effusions and bibasilar opacities, left greater than right. Head CT 07/09/20 14:42 IMPRESSION: 1. No significant interval changes since the prior examination dated 07/03/2020. No acute intracranial abnormality. 2. Chronic small vessel ischemic changes changes and mild atrophy. 3. Additional stable findings as above. EVIDENCE OF ACUTE STROKE: NO Foot X-Ray 07/10/20 00:00 IMPRESSION: SEVERE DIFFUSE DEMINERALIZATION. CHRONIC CHANGES IN THE 5TH TOE. PROGRESSIVE DESTRUCTION OF THE 2ND TOE. MAY BE DUE TO OSTEOMYELITIS. Chest X-Ray 07/10/20 16:17 IMPRESSION: 1. Interval placement of endotracheal tube, tip is approximately 3.4 cm proximal to the joselito. Nasogastric tube with the tip overlying the body of the stomach. No evidence of pneumothorax. 2. Lies, unchanged finding since the prior study dated 07/09/2020. Head CT 07/10/20 16:23 IMPRESSION: 1. No significant interval changes since the prior examinations dated 07/09/2020, 07/03/2020 and 04/12/2020. No acute intracranial abnormality. 2. Chronic mild small vessel ischemic changes. Stable appearance to the low attenuated area in the region of the right hankins radiata. Further evaluation with MRI Brain maybe helpful to exclude acute changes. 3. New finding of a fluid collection within the posterior nasopharynx which lie s anterior and adjacent to the adenoids and extends into the oropharynx. Interval placement of endotracheal and nasogastric tube since the previous study dated 07/09/2020. This finding may be on an inflammatory basis, possibly due to reflux. Correlation suggested. EVIDENCE OF ACUTE STROKE: NO Chest X-Ray 07/13/20 00:00 IMPRESSION: The enteric tube is malpositioned and its tip projects at the level of the joselito within the thoracic esophagus. Otherwise unchanged radiographic appearance of the chest. Chest X-Ray 07/15/20 00:00 IMPRESSION: Repositioning of the enteric tube with the tip now projecting over the left upper quadrant. Otherwise, stable examination. Chest X-Ray 07/17/20 00:00 IMPRESSION: NO SIGNIFICANT CHANGE IN APPEARANCE OF THE CHEST. Chest X-Ray 07/17/20 12:24 IMPRESSION: SATISFACTORY POSITION OF THE ENDOTRACHEAL TUBE AND NASOGASTRIC TUBE. NO SIGNIFICANT CHANGE IN APPEARANCE OF THE CHEST. Chest X-Ray 07/23/20 00:00 IMPRESSION: No change. Chest X-Ray 07/24/20 05:00 IMPRESSION: No significant change. No pneumothorax. Chest X-Ray 07/25/20 04:00 IMPRESSION: Unchanged radiographic appearance of the chest. Chest X-Ray 07/27/20 05:00 IMPRESSION: 1. Stable pulmonary exam. 2. A focus of extra thoracic lucency adjacent to the right lower chest wall on the frontal radiograph may be related to technique/patient positioning ; subcutaneous emphysema may have a similar appearance. Consider repeat imaging with attention to patient positioning for improved characterization. 3. Stable lines and tubes. Labs- All tests 24 hr 07/27/20 07/28/20 07/28/20 23:23 04:35 04:35 WBC 8.9 RBC 3.25 L Hgb 9.3 L Hct 27.5 L MCV 85 MCH 28.7 MCHC 33.8 RDW 17.1 H Plt Count 72 L Lymph % (Auto) 11.[address] [place] % (Auto) 8.8 Eos % (Auto) 0.3 Baso % (Auto) 0.4 Absolute Neuts (auto) 7.0 Absolute Lymphs (auto) 1.0 Absolute Monos (auto) 0.8 Absolute Eos (auto) 0.0 Absolute Basos (auto) 0.0 Seg Neutrophils % 79.0 H PT INR APTT Fibrinogen D-Dimer Sodium 136.0 L Potassium 3.6 Chloride 101 Carbon Dioxide 24 Anion Gap 11 BUN 50 H Creatinine 2.10 H Est GFR ( Amer) 39 L Est GFR (MDRD) Non-Af 32 L Glucose 122 H POC Glucose 212 H Calcium 8.5 Phosphorus 2.1 L 07/28/20 07/28/20 07/28/20 05:30 11:35 12:42 WBC RBC Hgb Hct MCV MCH MCHC RDW Plt Count Lymph % (Auto) [place] % (Auto) Eos % (Auto) Baso % (Auto) Absolute Neuts (auto) Absolute Lymphs (auto) Absolute Monos (auto) Absolute Eos (auto) Absolute Basos (auto) Seg Neutrophils % PT 15.0 INR 1.16 APTT 32.8 Fibrinogen 398 D-Dimer 5.29 H Sodium Potassium Chloride Carbon Dioxide Anion Gap BUN Creatinine Est GFR ( Amer) Est GFR (MDRD) Non-Af Glucose POC Glucose 122 H 159 H Calcium Phosphorus 07/28/20 16:35 WBC RBC Hgb Hct MCV MCH MCHC RDW Plt Count Lymph % (Auto) [place] % (Auto) Eos % (Auto) Baso % (Auto) Absolute Neuts (auto) Absolute Lymphs (auto) Absolute Monos (auto) Absolute Eos (auto) Absolute Basos (auto) Seg Neutrophils % PT INR APTT Fibrinogen D-Dimer Sodium Potassium Chloride Carbon Dioxide Anion Gap BUN Creatinine Est GFR ( Amer) Est GFR (MDRD) Non-Af Glucose POC Glucose 221 H Calcium Phosphorus IMPRESSION/RECOMMENDATION: 1. Acute hypercapnic respiratory failure. Patient intubated. 2. Hypotension: Blood pressure today is in the high 90s. He is got as yet required reinstitution of pressors. Will watch. The patient is on high-dose corticosteroid therapy. 3. End-stage renal disease on hemodialysis. 4. Possible osteomyelitis of the right foot. Recommend antibiotics. 5. Ischemic cardiomyopathy with moderately reduced LV ejection fraction. 6. Coronary artery disease, patient's troponin was elevated but this may be secondary to supply demand mismatch rather than MT the cause is being hypotension, respiratory failure and renal failure. 7. Diabetes mellitus: Continue high-level antidiabetic treatment. 8. History of prior CVA. 9. 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 Is there is also causing respiratory muscle weakness causing hypoventilation versus central sleep apnea. At present the opinion is that the patient is chronic probably having chronic inflammatory demyelinating disease. Patient seems to have some better response with high-dose steroids. But this brings about the issue of long-term solution for this patient's problem. The patient may end up needing a chronic ventilator facility. Will recommend a trial dose of modanafinil to see if there is an element of central sleep apnea also.. 10. Clinically nonsignificant Mobitz type I Wenckebach second-degree AV block. Medications reviewed. Medical regimen management plan discussed with the furniture rental consultant. Medical decision making is of moderate complexity. 40 minutes spent as patient more than 50% of time spent in direct patient care. Will follow.
[2020-07-28] MEDS: DOXYCYCLINE HYCLATE 100 MG in DEXTROSE 5%-WATER 250 ML IV SCH ×2 (17:23→18:55)
--- NOTE | 2020-07-28 18:27 | PDOC CRITICAL CARE PROG REPORT ---
General Date:: 07/28/20 ICU Day:: 10 Ventilator Day:: 10 Hospital Day:: 18 Resuscitation Status: Full Code Events in the past 12 to 24 Hours:: This 64-year-old -[place] male was originally admitted on 06/19/2020 with altered mental status. His reported that he had been demonstrating confusion for at least a couple of days prior to presentation. In addition, he presented with hypotension. He was admitted for further evaluation of possible sepsis. He was admitted to IMCU but transferred within 24 hours to the ICU after he became obtunded. pH 6.9, PCO2 130. He was intubated in the ICU. He subsequently improved and transferred out only to return about a day later (07/17/2020) again with hypotension and acute hypercapnic respiratory failure. He is an end-stage renal disease patient on hemodialysis and has a history of Guillain-Ventura syndrome. 07/23: Awake. Does not clearly follow commands. He demonstrates rhythmic movements, which are most notable involving the face (right-sided) and right arm . Remains intubated. Off sedation. Nurse reports that he continues to have copious amounts of watery diarrhea. Discussed with Dr. Tavares (nephrology). 07/24: Resting comfortably on the ventilator. Now on sedation. No longer demonstrating rhythmic contractions. EEG delayed (no process technician available until next week). Phosphorus 1.4. Started today on Solu-Medrol 60 mg IV every 6 hours x4 doses followed by 60 mg IV daily, directed at the patient's AIDP/CIDP. 07/25: HD this a.m. Overnight, the nursing staff reports that the patient had a bout of emesis, raising suspicion for an aspiration event. Copious endotracheal secretions are noted this morning. Platelets 76, downtrending. Still on propofol. During sedation vacation, the patient promptly demonstrates increased motor activity with intermittent episodes of "rhythmic movement" as previously seen. 07/26: Resting comfortably on the ventilator. ABG this a.m. suggest improvement in A-a gradient. Still demonstrates rhythmic contractions. Off sedation. Despite demonstrating rhythmic contractions (partial seizures?), the patient does seem to interact and does follow some commands. Phosphorus 0.6 this a.m., concerning for depletion of phosphorus due to seizure/tremor activity. K-Phos replacement ordered. Platelets down to 62. 07/27: Synchronous with the ventilator. This is a bit of a surprise, as his ABG pH is less than 7.4. On the other hand, he demonstrates considerable improvement in right upper extremity strength. He is possibly moving his right arm. No longer demonstrating resting tremors. Off sedation. Platelets 62 again today. Heparin was changed to Arixtra for DVT prophylaxis. Platelets are not lower, but not higher. 07/28: Comfortable on the ventilator. Demonstrating spontaneous respirations t kenrick. Continues to demonstrate improvement in right upper extremity strength. No longer demonstrating tremors. Off sedation. Platelets 72 today. On Arixtra for DVT prophylaxis. was updated at the bedside yesterday evening. Got HD yesterday. Heparin-induced platelet antibody pending. Review of systems relevant to events:: Neurological Reason for ICU Addmission:: Intubated and not responsive. - Medications: Medications reviewed and adjusted accordingly: Yes Physical Exam Vital Signs: Temp Pulse Resp BP Pulse Ox 99.1 F 70 9 L 103/48 L 100 07/28/20 09:37 07/28/20 10:00 07/28/20 10:19 07/28/20 10:19 07/28/20 10:19 Intake & Output 07/27/20 07/28/20 07/29/20 06:59 06:59 06:59 Intake Total 1300 20 10 Output Total 460 680 0 Balance 840 -660 10 Weight 62.9 kg 61.9 kg Weight/Height Weight 61.9 kg Height 1.7 m General appearance: PRESENT: no acute distress, well-developed, well-nourished Head exam: PRESENT: atraumatic, normocephalic Eye exam: PRESENT: conjunctiva pink, EOMI, PERRLA. ABSENT: scleral icterus Mouth exam: PRESENT: moist, tongue midline Respiratory exam: PRESENT: clear to auscultation jolie. ABSENT: rales, rhonchi, wheezes Cardiovascular exam: PRESENT: RRR. ABSENT: diastolic murmur, rubs, systolic mu rmur Pulses: PRESENT: normal dorsalis pedis pul GI/Abdominal exam: PRESENT: normal bowel sounds, soft. ABSENT: distended, guarding, mass, organolmegaly, rebound, tenderness Gentrourinary exam: PRESENT: indwelling catheter Extremities exam: PRESENT: full ROM, pedal edema. ABSENT: calf tenderness, c lubbing Neurological exam: PRESENT: awake, CN II-XII grossly intact. ABSENT: reflexes normal, motor sensory deficit Psychiatric exam: ABSENT: agitated, anxious Skin exam: PRESENT: other - Ischemic/necrotic changes to toes Tubes/Lines: PRESENT: Endotracheal Tube - 07/17, Central Line - Left IJ, Dialysis catheter - Right subclavian Laboratory/Radiographs Laboratory Results: 07/28/20 04:35 07/28/20 04:35 07/27/20 07/28/20 07/28/20 15:05 04:35 04:35 WBC 8.9 RBC 3.25 L Hgb 9.3 L Hct 27.5 L MCV 85 MCH 28.7 MCHC 33.8 RDW 17.1 H Plt Count 72 L Seg Neutrophils % 79.0 H Carbonic Acid 0.98 L HCO3/H2CO3 Ratio 21:1 ABG pH 7.42 ABG pCO2 32.5 L ABG pO2 113.9 H ABG HCO3 20.7 ABG O2 Saturation 98.3 H ABG Base Excess -3.1 FiO2 30% Sodium 136.0 L Potassium 3.6 Chloride 101 Carbon Dioxide 24 Anion Gap 11 BUN 50 H Creatinine 2.10 H Est GFR ( Amer) 39 L Glucose 122 H Calcium 8.5 Phosphorus 2.1 L 07/09/20 07/20/20 07/20/20 11:47 05:00 05:00 Creatine Kinase 25 L Troponin I 0.235 0.232 NT-Pro-B Natriuret Pep 369290 H Impressions: Foot X-Ray 07/10/20 00:00 IMPRESSION: SEVERE DIFFUSE DEMINERALIZATION. CHRONIC CHANGES IN THE 5TH TOE. PROGRESSIVE DESTRUCTION OF THE 2ND TOE. MAY BE DUE TO OSTEOMYELITIS. Head CT 07/10/20 16:23 IMPRESSION: 1. No significant interval changes since the prior examinations dated 07/09/2020, 07/03/2020 and 04/12/2020. No acute intracranial abnormality. 2. Chronic mild small vessel ischemic changes. Stable appearance to the low attenuated area in the region of the right hankins radiata. Further evaluation with MRI Brain maybe helpful to exclude acute changes. 3. New finding of a fluid collection within the posterior nasopharynx which lies anterior and adjacent to the adenoids and extends into the oropharynx. Interval placement of endotracheal and nasogastric tube since the previous study dated 07/09/2020. This finding may be on an inflammatory basis, possibly due to reflux. Correlation suggested. EVIDENCE OF ACUTE STROKE: NO Chest X-Ray 07/27/20 05:00 IMPRESSION: 1. Stable pulmonary exam. 2. A focus of extra thoracic lucency adjacent to the right lower chest wall on the frontal radiograph may be related to technique/patient positioning ; subcutaneous emphysema may have a similar appearance. Consider repeat imaging with attention to patient positioning for improved characterization. 3. Stable lines and tubes. All labs, radiographs, diagnostic studies and EKGs were personally reviewed: Yes In addition, reports of radiographic and diagnostic studies were read: Yes Assessment and Plan - Diagnosis (1) Endotracheally intubated Is this a current diagnosis for this admission?: Yes Plan: * SIMV PRVC + PSV. Titrate ventilator settings based on ABG results. * Loading dose of Keppra on 07/26. No Keppra will be administered today. * Repeat trach aspirate, blood cultures from 07/27 pending. * Difficulties in proceeding with liberation from mechanical ventilatory support revolve around questions of his neuromuscular function at this time. Review of the patient's performance on mechanical ventilatory support suggests that he has previously struggled with restrictive respiratory pathophysiology, compatible with neuromuscular dysfunction, which I suspect reflects his chronic inflammatory demyelinating polyneuropathy. On steroid therapy, the patient has started to demonstrate spontaneous triggering of the ventilator along with overall decrease in airway pressures. 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 * He has been on Solu-Cortef during his hospitalization; however this dosing is not sufficient to cover for treatment of AIDP or CIDP. * Increase Solu-Medrol to 60 mg IV every 6 hours x3 days followed by 60 mg daily (do not decrease until sign of clinical benefit). * Difficulties in proceeding with liberation from mechanical ventilatory support revolve around questions of his neuromuscular function at this time. Review of the patient's performance on mechanical ventilatory support suggests that he has previously struggled with restrictive respiratory pathophysiology, compatible with neuromuscular dysfunction, which I suspect reflects his chronic inflammatory demyelinating polyneuropathy. On steroid therapy, the patient has started to demonstrate spontaneous triggering of the ventilator along with overall decrease in airway pressures. * I have discussed my clinical impression with the patient's . I did introduced the notion that the patient may ultimately need/benefit from tracheostomy. If the patient fails to demonstrate significant improvement over the next several days, tracheostomy will likely be in the patient's best interest, provided that they agree that proceeding with definitive management is consistent with his wishes. (3) Thrombocytopenia Is this a current diagnosis for this admission?: Yes Plan: * Off Pepcid. On Protonix. * Off heparin. On Arixtra for DVT prophylaxis. * Heparin-induced platelet antibody test pending. (4) Hypomagnesemia Is this a current diagnosis for this admission?: Yes (5) Anemia in chronic kidney disease (CKD) Qualifiers: Chronic kidney disease stage: on chronic dialysis Qualified Code(s): N18.6 - End stage renal disease; D63.1 - Anemia in chronic kidney disease; Z99.2 - Dependence on renal dialysis Is this a current diagnosis for this admission?: Yes (6) End stage renal disease Is this a current diagnosis for this admission?: Yes (7) Hypokalemia Is this a current diagnosis for this admission?: Yes (8) Leukocytosis Is this a current diagnosis for this admission?: Yes (9) COVID-19 ruled out by laboratory testing Is this a current diagnosis for this admission?: Yes (10) AV block, 2nd degree Is this a current diagnosis for this admission?: Yes Plan: Catrachito Malik, hemodynamically stable. Critical Time Critical Time (minutes): 90 Level of Care: ICU -: 1. The care of a critical patient is a dynamic process. This note is a telemarketing sales representative synopsis but static in nature. The timeframe for treatments given in order is not necessarily the actual time these treatments may have been done. 2. This patient requires critical care secondary to ongoing requirements for therapy not offered or safe outside the critical care environment. Transfer to a lower level of care will result in altered life or limb morbidity and mortality. 3. Multidisciplinary rounds completed. 4. ABCDE bundle addressed.
[2020-07-28] MEDS: TOBRAMYCIN SULFATE NEB 40 MG/ML 30 ML NEB SCH (19:57)
[2020-07-28] MEDS ORDERED: TOBRAMYCIN SULFATE INJ 80 MG/2 ML VIAL NEB SCH (20:00)
[2020-07-28] MEDS: LATANOPROST 0.005% OPH SOLN 2.5 ML OU SCH (21:40)
[2020-07-29] MEDS: ALBUTEROL SULFATE 0.083% NEB 2.5 MG/3 ML AMPUL NEB SCH ×6 (01:14→20:15)
[2020-07-29] MEDS: METOCLOPRAMIDE HCL ORAL SOLN 10 MG/10 ML UDCUP NG SCH ×4 (01:45→17:17)
[2020-07-29] MEDS: INSULIN REG, HUMAN 100 UNIT/ML 3 ML VIAL (PYX) SUBCUT SCH ×4 (01:45→17:15)
[2020-07-29] MEDS: METHYLPREDNISOLONE INJ 125 MG/2 ML SDV IV SCH ×4 (01:46→17:17)
[2020-07-29 05:55] LABS: ARTERIAL BLOOD BASE EXCESS -3.6 mmol/L; ARTERIAL BLOOD H2CO3 0.99 mmol/L (1.05-1.35); ARTERIAL BLOOD HCO3 20.4 mmol/L (20-24); ARTERIAL BLOOD O2 SATURATION 93.7 % (94-98); ARTERIAL BLOOD PH 7.41 (7.35-7.45); ARTERIAL BLOOD PO2 66.8 mmHg (80-100); ARTERIAL BLOOD TOTAL CO2 21.4 mmol/L (23-27)
[2020-07-29 05:56] LABS: ARTERIAL BLOOD FIO2 30%
[2020-07-29 06:06] LABS: HEMATOCRIT 28.6 % (37.9-51.0); HEMOGLOBIN 9.6 g/dL (13.5-17.0); MEAN CORPUSCULAR HEMOGLOBIN 28.9 pg (27.0-33.4); MEAN CORPUSCULAR HGB CONC 33.7 g/dL (32.0-36.0); MEAN CORPUSCULAR VOLUME 86 fl (80-97); RED BLOOD COUNT 3.34 10^6/uL (4.35-5.55); RED CELL DISTRIBUTION WIDTH 16.9 % (11.5-14.0); WHITE BLOOD COUNT 10.8 10^3/uL (4.0-10.5)
[2020-07-29] MEDS: DOXYCYCLINE HYCLATE 100 MG in DEXTROSE 5%-WATER 250 ML IV SCH ×2 (06:11→17:15)
[2020-07-29 06:12] LABS: ANION GAP 14 (5-19); BLOOD UREA NITROGEN 62 mg/dL (7-20); CALCIUM 8.7 mg/dL (8.4-10.2); CARBON DIOXIDE 22 mmol/L (22-30); CHLORIDE 100 mmol/L (98-107); GLUCOSE 224 mg/dL (75-110); PHOSPHORUS 3.2 mg/dL (2.5-4.5); TRIGLYCERIDES 109 mg/dL (<150)
[2020-07-29 07:07] LABS: PLATELET COUNT 79 10^3/uL (150-450)
[2020-07-29] MEDS: BUDESONIDE NEB 0.25 MG/2 ML AMPUL NEB SCH ×2 (07:53→20:15)
[2020-07-29] MEDS: TOBRAMYCIN SULFATE NEB 40 MG/ML 30 ML NEB SCH ×2 (07:53→20:15)
[2020-07-29] MEDS ORDERED: METHYLPREDNISOLONE INJ 125 MG/2 ML SDV IV ONE (08:00)
--- NOTE | 2020-07-29 09:21 | RADIOLOGY REPORT (SQ) ---
EXAM DESCRIPTION: CHEST SINGLE VIEW IMAGES COMPLETED DATE/TIME: 07/29/2020 5:24 am REASON FOR STUDY: ETT tube COMPARISON: None. NUMBER OF VIEWS: One view. TECHNIQUE: Single frontal radiographic image of the chest acquired. LIMITATIONS: None. FINDINGS: LUNGS AND PLEURA: Left lower lobe consolidation not significantly changed. No pneumothora x. MEDIASTINUM AND HEART: Stable heart size and mediastinal structures. SUPPORT DEVICES: Appropriate location without change. BONY STRUCTURES: No acute findings. HARDWARE: None. OTHER: No other significant finding. IMPRESSION: No significant change. No pneumothorax. Reading location - IP/workstation name: [email or web address]
[2020-07-29] MEDS: DOCUSATE SODIUM 100 MG/10 ML UDC NG SCH (09:48)
[2020-07-29] MEDS: FONDAPARINUX SODIUM INJ 2.5 MG/0.5 ML DISP.SYRIN SUBCUT SCH (09:56)
[2020-07-29] MEDS: COLCHICINE 0.6 MG TABLET NG SCH ×2 (09:57→17:17)
[2020-07-29] MEDS: PANTOPRAZOLE SODIUM 40 MG VIAL IV SCH (09:57)
[2020-07-29] MEDS: AMINO AC/PROTEIN HYDR/WHEY PRO 11 GM/45 ML PKT NG SCH ×2 (09:57→17:17)
--- NOTE | 2020-07-29 14:57 | Progress Note ---
Provider Note Provider Note: CARDIOLOGY PROGRESS NOTE by Dr. Samia Roper on 07/28/2020. OBJECTIVE. The patient is on high-dose of steroids and has made slight improvement and is awake although nonverbal. He has more stronger than yesterday movements of his upper extremity which is a change from before on the positive side. His who is at the bedside states that she is recognized by her . The patient has less episodes of Mobitz type I Wenckebach second- degree AV block. There is no ventricular arrhythmias seen on the monitor. He is blood pressure is stable without any pressors. PHYSICAL EXAMINATION: The patient appears to be chronically ill and malnourished and emaciated. Selected Entries 07/29/20 07/29/20 07/29/20 07:46 11:18 11:19 Temperature Temperature Source Pulse Rate Heart Rate ( 94 Monitors) Respiratory 12 Rate Blood Pressure 126/73 H Blood Pressure [Upper Arm] Blood Pressure 90 Mean Blood Pressure Mean [Upper Arm ] O2 Sat by Pulse Oximetry Fraction of 30 Inspired Oxygen (FIO2) 07/29/20 07/29/20 11:49 11:57 Temperature 98.3 F Temperature Axillary Source Pulse Rate 93 Heart Rate ( Monitors) Respiratory Rate Blood Pressure Blood Pressure 126/73 H [Upper Arm] Blood Pressure Mean Blood Pressure 90 Mean [Upper Arm ] O2 Sat by Pulse 100 Oximetry Fraction of Inspired Oxygen (FIO2) HEAD: Is atraumatic normocephalic. EYES: Pupils equal reactive to light. ENT is negative. There is right facial droop present. NECK: Supple. There is no JVD. Carotids are equal there is no bruits. Lungs: Fairly clear. Heart S1-S2 is heard there is no S3 gallop. There is no S4 gallop. There is no rub. ABDOMEN: Soft nontender. There is no hepatosplenomegaly. Bowel sounds well heard. EXTREMITIES: Femorals are diminished. Leg pulses are diminished. There is no pedal edema there is wasting of the muscles of the lower xtremities. COMPUTER TRAINING SPECIALIST: The patient is awake intubated and and nonverbal. He is able to move his left upper extremity but weakly. Psychiatric exam not performed due to patient mental status. Labs- All tests 24 hr 07/29/20 07/29/20 07/29/20 01:23 05:19 05:25 WBC RBC Hgb Hct MCV MCH MCHC RDW Plt Count Carbonic Acid 0.99 L HCO3/H2CO3 Ratio 20:1 ABG pH 7.41 ABG pCO2 33.0 L ABG pO2 66.8 L ABG HCO3 20.4 ABG Total CO2 21.4 L ABG O2 Saturation 93.7 L ABG Base Excess -3.6 FiO2 30% Sodium Potassium Chloride Carbon Dioxide Anion Gap BUN Creatinine Est GFR ( Amer) Est GFR (MDRD) Non-Af Glucose POC Glucose 250 H 217 H Calcium Ionized Calcium Mak 1.13 L Phosphorus Magnesium Triglycerides 07/29/20 07/29/20 07/29/20 05:25 05:25 11:50 WBC 10.8 H RBC 3.34 L Hgb 9.6 L Hct 28.6 L MCV 86 MCH 28.9 MCHC 33.7 RDW 16.9 H Plt Count 79 L Carbonic Acid HCO3/H2CO3 Ratio ABG pH ABG pCO2 ABG pO2 ABG HCO3 ABG Total CO2 ABG O2 Saturation ABG Base Excess FiO2 Sodium 135.6 L Potassium 4.0 Chloride 100 Carbon Dioxide 22 Anion Gap 14 BUN 62 H Creatinine 2.39 H Est GFR ( Amer) 33 L Est GFR (MDRD) Non-Af 28 L Glucose 224 H POC Glucose 331 H Calcium 8.7 Ionized Calcium Mak Phosphorus 3.2 Magnesium 2.1 Triglycerides 109 07/29/20 16:47 WBC RBC Hgb Hct MCV MCH MCHC RDW Plt Count Carbonic Acid HCO3/H2CO3 Ratio ABG pH ABG pCO2 ABG pO2 ABG HCO3 ABG Total CO2 ABG O2 Saturation ABG Base Excess FiO2 Sodium Potassium Chloride Carbon Dioxide Anion Gap BUN Creatinine Est GFR ( Amer) Est GFR (MDRD) Non-Af Glucose POC Glucose 261 H Calcium Ionized Calcium Mak Phosphorus Magnesium Triglycerides Chest X-Ray 07/09/20 13:50 IMPRESSION: Stable enlarged cardiac silhouette, mild bilateral pleural effusions and bibasilar opacities, left greater than right. Head CT 07/09/20 14:42 IMPRESSION: 1. No significant interval changes since the prior examination dated 07/03/2020. No acute intracranial abnormality. 2. Chronic small vessel ischemic changes changes and mild atrophy. 3. Additional stable findings as above. EVIDENCE OF ACUTE STROKE: NO Foot X-Ray 07/10/20 00:00 IMPRESSION: SEVERE DIFFUSE DEMINERALIZATION. CHRONIC CHANGES IN THE 5TH TOE. PROGRESSIVE DESTRUCTION OF THE 2ND TOE. MAY BE DUE TO OSTEOMYELITIS. Chest X-Ray 07/10/20 16:17 IMPRESSION: 1. Interval placement of endotracheal tube, tip is approximately 3.4 cm proximal to the joselito. Nasogastric tube with the tip overlying the body of the stomach. No evidence of pneumothorax. 2. Lies, unchanged finding since the prior study dated 07/09/2020. Head CT 07/10/20 16:23 IMPRESSION: 1. No significant interval changes since the prior examinations dated 07/09/2020, 07/03/2020 and 04/12/2020. No acute intracranial abnormality. 2. Chronic mild small vessel ischemic changes. Stable appearance to the low attenuated area in the region of the right hankins radiata. Further evaluation with MRI Brain maybe helpful to exclude acute changes. 3. New finding of a fluid collection within the posterior nasopharynx which lies anterior and adjacent to the adenoids and extends into the oropharynx. Interval placement of endotracheal and nasogastric tube since the previous study dated 07/09/2020. This finding may be on an inflammatory basis, possibly due to reflux. Correlation suggested. EVIDENCE OF ACUTE STROKE: NO Chest X-Ray 07/13/20 00:00 IMPRESSION: The enteric tube is malpositioned and its tip projects at the level of the joselito within the thoracic esophagus. Otherwise unchanged radiographic appearance of the chest. Chest X-Ray 07/15/20 00:00 IMPRESSION: Repositioning of the enteric tube with the tip now projecting over the left upper quadrant. Otherwise, stable examination. Chest X-Ray 07/17/20 00:00 IMPRESSION: NO SIGNIFICANT CHANGE IN APPEARANCE OF THE CHEST. Chest X-Ray 07/17/20 12:24 IMPRESSION: SATISFACTORY POSITION OF THE ENDOTRACHEAL TUBE AND NASOGASTRIC TUBE. NO SIGNIFICANT CHANGE IN APPEARANCE OF THE CHEST. Chest X-Ray 07/23/20 00:00 IMPRESSION: No change. Chest X-Ray 07/24/20 05:00 IMPRESSION: No significant change. No pneumothorax. Chest X-Ray 07/25/20 04:00 IMPRESSION: Unchanged radiographic appearance of the chest. Chest X-Ray 07/27/20 05:00 IMPRESSION: 1. Stable pulmonary exam. 2. A focus of extra thoracic lucency adjacent to the right lower chest wall on the frontal radiograph may be related to technique/patient positioning ; subcutaneous emphysema may have a similar appearance. Consider repeat imaging with attention to patient positioning for improved characterization. 3. Stable lines and tubes. Chest X-Ray 07/29/20 05:00 IMPRESSION: No significant change. No pneumothorax. CARDIOLOGY PROGRESS NOTE by Dr. Samia Roper on 07/28/2020. OBJECTIVE. The patient is on high-dose of steroids and has made slight improvement and is awake although nonverbal. He has weak movements of his upper extremity which is a change from before on the positive side. The patient has less episodes of Mobitz type I Wenckebach second-degree AV block. There is no ventricular arrhythmias seen on the monitor. He is blood pressure is stable without any pressors. PHYSICAL EXAMINATION: The patient appears to be chronically ill and malnourished and emaciated. HEAD: Is atraumatic normocephalic. EYES: Pupils equal reactive to light. ENT is negative. There is right facial droop present. NECK: Supple. There is no JVD. Carotids are equal there is no bruits. Lungs: Fairly clear. Heart S1-S2 is heard there is no S3 gallop. There is no S4 gallop. There is no rub. ABDOMEN: Soft nontender. There is no hepatosplenomegaly. Bowel sounds well heard. EXTREMITIES: Femorals are diminished. Leg pulses are diminished. There is no pedal edema there is wasting of the muscles of the lower xtremities. COMPUTER TRAINING SPECIALIST: The patient is awake intubated and and nonverbal. He is able to move his left upper extremity but weakly. Psychiatric exam not performed due to patient mental status. IMPRESSION/RECOMMENDATION: 1. Acute hypercapnic respiratory failure. Patient intubated. 2. Hypotension: Blood pressure today is in the high 90s. He is got as yet required reinstitution of pressors. Will watch. The patient is on high-dose corticosteroid therapy. 3. End-stage renal disease on hemodialysis. 4. Possible osteomyelitis of the right foot. Recommend antibiotics. 5. Ischemic cardiomyopathy with moderately reduced LV ejection fraction. 6. Coronary artery disease, patient's troponin was elevated but this may be secondary to supply demand mismatch rather than CA the cause is being hypotension, respiratory failure and renal failure. 7. Diabetes mellitus: Continue high-level antidiabetic treatment. 8. History of prior CVA. 9. 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 Is there is also causing respiratory muscle weakness causing hypoventilation versus central sleep apnea. At present the opinion is that the patient is chronic probably having chronic inflammatory demyelinating disease. Patient seems to have some better response with high-dose steroids. But this brings about the issue of long-term solution for this patient's problem. The patient may end up needing a chronic ventilator facility. Will recommend a trial dose of modanafinil to see if there is an element of central sleep apnea also.. 10. Clinically nonsignificant Mobitz type I Wenckebach second-degree AV block. Medications reviewed. Medical regimen management plan discussed with the brim ironer hand. Medical decision making is of moderate complexity. 40 minutes spent as patient more than 50% of time spent in direct patient care. Will follow. IMPRESSION/RECOMMENDATION: 1. Acute hypercapnic respiratory failure. Patient intubated. 2. Hypotension: Blood pressure today is in the high 90s. He is got as yet required reinstitution of pressors. Will watch. The patient is on high-dose corticosteroid therapy. 3. End-stage renal disease on hemodialysis. 4. Possible osteomyelitis of the right foot. Recommend antibiotics. 5. Ischemic cardiomyopathy with moderately reduced LV ejection fraction. 6. Coronary artery disease, patient's troponin was elevated but this may be secondary to supply demand mismatch rather than CA the cause is being hypotension, respiratory failure and renal failure. 7. Diabetes mellitus: Continue high-level antidiabetic treatment. 8. History of prior CVA. 9. 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 Is there is also causing respiratory muscle weakness causing hypoventilation versus central sleep apnea. At present the opinion is that the patient is chronic probably having chronic inflammatory demyelinating disease. Patient seems to have some better response with high-dose steroids. But this brings about the issue of long-term solution for this patient's problem. The patient may end up needing a chronic ventilator facility. Will recommend a trial dose of modanafinil to see if there is an element of central sleep apnea also.. 10. Clinically nonsignificant Mobitz type I Wenckebach second-degree AV block. Medications reviewed. Medical regimen management plan discussed with the brim ironer hand. Medical decision making is of moderate complexity. 40 minutes spent as patient more than 50% of time spent in direct patient care. Overall clinical condition discussed with the patient's . The possibility that the patient may need a tracheostomy and if he is able to go home instead of a long- term ventilatory facility, he may need home trilogy noninvasive ventilator system. Will follow.
--- NOTE | 2020-07-29 19:58 | PDOC CRITICAL CARE PROG REPORT ---
General Date:: 07/29/20 ICU Day:: 11 Ventilator Day:: 11 Hospital Day:: 19 Resuscitation Status: Full Code Events in the past 12 to 24 Hours:: This 64-year-old -[place] male was originally admitted on 06/19/2020 with altered mental status. His reported that he had been demonstrating confusion for at least a couple of days prior to presentation. In addition, he presented with hypotension. He was admitted for further evaluation of possible sepsis. He was admitted to IMCU but transferred within 24 hours to the ICU after he became obtunded. pH 6.9, PCO2 130. He was intubated in the ICU. He subsequently improved and transferred out only to return about a day later (07/17/2020) again with hypotension and acute hypercapnic respiratory failure. He is an end-stage renal disease patient on hemodialysis and has a history of Guillain-Ventura syndrome. 07/23: Awake. Does not clearly follow commands. He demonstrates rhythmic movements, which are most notable involving the face (right-sided) and right arm . Remains intubated. Off sedation. Nurse reports that he continues to have copious amounts of watery diarrhea. Discussed with Dr. Tavares (nephrology). 07/24: Resting comfortably on the ventilator. Now on sedation. No longer demonstrating rhythmic contractions. EEG delayed (no solder technician available until next week). Phosphorus 1.4. Started today on Solu-Medrol 60 mg IV every 6 hours x4 doses followed by 60 mg IV daily, directed at the patient's AIDP/CIDP. 07/25: HD this a.m. Overnight, the nursing staff reports that the patient had a bout of emesis, raising suspicion for an aspiration event. Copious endotracheal secretions are noted this morning. Platelets 76, downtrending. Still on propofol. During sedation vacation, the patient promptly demonstrates increased motor activity with intermittent episodes of "rhythmic movement" as previously seen. 07/26: Resting comfortably on the ventilator. ABG this a.m. suggest improvement in A-a gradient. Still demonstrates rhythmic contractions. Off sedation. Despite demonstrating rhythmic contractions (partial seizures?), the patient does seem to interact and does follow some commands. Phosphorus 0.6 this a.m., concerning for depletion of phosphorus due to seizure/tremor activity. K-Phos replacement ordered. Platelets down to 62. 07/27: Synchronous with the ventilator. This is a bit of a surprise, as his ABG pH is less than 7.4. On the other hand, he demonstrates considerable improvement in right upper extremity strength. He is possibly moving his right arm. No longer demonstrating resting tremors. Off sedation. Platelets 62 again today. Heparin was changed to Arixtra for DVT prophylaxis. Platelets are not lower, but not higher. 07/28: Comfortable on the ventilator. Demonstrating spontaneous respirations t kenrick. Continues to demonstrate improvement in right upper extremity strength. No longer demonstrating tremors. Off sedation. Platelets 72 today. On Arixtra for DVT prophylaxis. was updated at the bedside yesterday evening. Got HD yesterday. Heparin-induced platelet antibody pending. 07/29: Stronger today. Moving head and both upper extremities with ease. At this point, this suggests an unequivocal improvement with increased steroid dosing. Remains on mechanical ventilatory support. On SIMV (PRVC) + PSV. On Arixtra for DVT prophylaxis. Platelets 79 today. Heparin-induced platelet antibody pending. Started on doxycycline/RIN yesterday after trach aspirate isolated gram-negative rods, now identified as ESBL E. coli. Review of systems relevant to events:: Neurological Reason for ICU Addmission:: Intubated and not responsive. - Medications: Medications reviewed and adjusted accordingly: Yes Physical Exam Vital Signs: Temp Pulse Resp BP Pulse Ox 97.9 F 79 10 L 139/99 H 100 07/29/20 08:00 07/29/20 08:00 07/29/20 08:00 07/29/20 08:00 07/29/20 08:00 Intake & Output 07/28/20 07/29/20 07/30/20 06:59 06:59 06:59 Intake Total 20 1260 10 Output Total 680 0 0 Balance -660 1260 10 Weight 61.9 kg 63.5 kg Weight/Height Weight 63.5 kg Height 1.7 m General appearance: PRESENT: no acute distress, well-developed, well-nourished Head exam: PRESENT: atraumatic, normocephalic Eye exam: PRESENT: conjunctiva pink, EOMI, PERRLA. ABSENT: scleral icterus Mouth exam: PRESENT: moist, tongue midline Neck exam: ABSENT: carotid bruit, JVD, lymphadenopathy, thyromegaly Respiratory exam: PRESENT: rales, rhonchi. ABSENT: wheezes Cardiovascular exam: PRESENT: RRR, tachycardia. ABSENT: diastolic murmur, rubs, systolic murmur Pulses: PRESENT: normal dorsalis pedis pul GI/Abdominal exam: PRESENT: normal bowel sounds, soft. ABSENT: distended, guarding, mass, organolmegaly, rebound, tenderness Gentrourinary exam: PRESENT: indwelling catheter Extremities exam: PRESENT: full ROM, pedal edema, other - Dependent edema (scrotal, gluteal). ABSENT: calf tenderness, clubbing Neurological exam: PRESENT: alert, awake, CN II-XII grossly intact, motor sensory deficit - Sensation intact at all 4 extremities. Right upper extremity strength 4+/5; left upper extremity 4/5; bilateral lower extremity 0/5.. ABSENT: reflexes normal Psychiatric exam: ABSENT: agitated, anxious Skin exam: PRESENT: other - Ischemic/necrotic toes Tubes/Lines: PRESENT: Endotracheal Tube - 07/17, Central Line - Left IJ, Dialysis catheter - Right subclavian Laboratory/Radiographs Laboratory Results: 07/29/20 05:25 07/29/20 05:25 07/29/20 07/29/20 07/29/20 05:25 05:25 05:25 WBC 10.8 H RBC 3.34 L Hgb 9.6 L Hct 28.6 L MCV 86 MCH 28.9 MCHC 33.7 RDW 16.9 H Plt Count 79 L Carbonic Acid 0.99 L HCO3/H2CO3 Ratio 20:1 ABG pH 7.41 ABG pCO2 33.0 L ABG pO2 66.8 L ABG HCO3 20.4 ABG O2 Saturation 93.7 L ABG Base Excess -3.6 FiO2 30% Sodium 135.6 L Potassium 4.0 Chloride 100 Carbon Dioxide 22 Anion Gap 14 BUN 62 H Creatinine 2.39 H Est GFR ( Amer) 33 L Glucose 224 H Calcium 8.7 Ionized Calcium Mak 1.13 L Phosphorus 3.2 Magnesium 2.1 Triglycerides 109 07/27/20 13:20 Tracheal Aspirate Gram Stain - Final 07/09/20 07/20/20 07/20/20 11:47 05:00 05:00 Creatine Kinase 25 L Troponin I 0.235 0.232 NT-Pro-B Natriuret Pep [id number] H Impressions: Foot X-Ray 07/10/20 00:00 IMPRESSION: SEVERE DIFFUSE DEMINERALIZATION. CHRONIC CHANGES IN THE 5TH TOE. PROGRESSIVE DESTRUCTION OF THE 2ND TOE. MAY BE DUE TO OSTEOMYELITIS. Head CT 07/10/20 16:23 IMPRESSION: 1. No significant interval changes since the prior examinations dated 07/09/2020, 07/03/2020 and 04/12/2020. No acute intracranial abnormality. 2. Chronic mild small vessel ischemic changes. Stable appearance to the low attenuated area in the region of the right hankins radiata. Further evaluation with MRI Brain maybe helpful to exclude acute changes. 3. New finding of a fluid collection within the posterior nasopharynx which li es anterior and adjacent to the adenoids and extends into the oropharynx. Interval placement of endotracheal and nasogastric tube since the previous study dated 07/09/2020. This finding may be on an inflammatory basis, possibly due to reflux. Correlation suggested. EVIDENCE OF ACUTE STROKE: NO Chest X-Ray 07/29/20 05:00 IMPRESSION: No significant change. No pneumothorax. All labs, radiographs, diagnostic studies and EKGs were personally reviewed: Yes In addition, reports of radiographic and diagnostic studies were read: Yes Assessment and Plan - Diagnosis (1) Endotracheally intubated Is this a current diagnosis for this admission?: Yes Plan: * SIMV PRVC + PSV. Wean SIMV rate as tolerated. * Repeat trach aspirate is isolating ESBL E. coli. Started on doxycycline/RIN on 07/28/2020. * Difficulties in proceeding with liberation from mechanical ventilatory support revolve around questions of his neuromuscular function at this time. Review of the patient's performance on mechanical ventilatory support suggests that he has previously struggled with restrictive respiratory pathophysiology, compatible with neuromuscular dysfunction, which I suspect reflects his chroni c inflammatory demyelinating polyneuropathy. On steroid therapy, the patient has started to demonstrate spontaneous triggering of the ventilator along with overall decrease in airway pressures. 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 * He has been on Solu-Cortef during his hospitalization; however this dosing is not sufficient to cover for treatment of AIDP or CIDP. * Increase Solu-Medrol to 60 mg IV every 6 hours x3 days followed by 60 mg daily (do not decrease until sign of clinical benefit). * Difficulties in proceeding with liberation from mechanical ventilatory support revolve around questions of his neuromuscular function at this time. Review of the patient's performance on mechanical ventilatory support suggests that he has previously struggled with restrictive respiratory pathophysiology, compatible with neuromuscular dysfunction, which I suspect reflects his chronic inflammatory demyelinating polyneuropathy. On steroid therapy, the patient has started to demonstrate spontaneous triggering of the ventilator along with overall decrease in airway pressures. * I have discussed my clinical impression with the patient's again today. I did introduce the notion that the patient may ultimately need/benefit from tracheostomy. If the patient fails to demonstrate significant improvement over the next several days, tracheostomy will likely be in the patient's best interest, provided that they agree that proceeding with definitive management is consistent with his wishes. (3) Pneumonia due to Escherichia coli Qualifiers: Laterality: unspecified laterality Lung location: unspecified part of lung Qualified Code(s): J15.5 - Pneumonia due to Escherichia coli Is this a current diagnosis for this admission?: Yes Plan: Trach aspirate (07/27) isolated ESBL E. coli. Started on doxycycline/RIN on 07/28/2020. (4) Thrombocytopenia Is this a current diagnosis for this admission?: Yes Plan: * Slowly improving. * Off Pepcid. On Protonix. * Off heparin. On Arixtra for DVT prophylaxis. * Heparin-induced platelet antibody test pending. (5) Anemia in chronic kidney disease (CKD) Qualifiers: Chronic kidney disease stage: on chronic dialysis Qualified Code(s): N18.6 - End stage renal disease; D63.1 - Anemia in chronic kidney disease; Z99.2 - Dependence on renal dialysis Is this a current diagnosis for this admission?: Yes (6) End stage renal disease Is this a current diagnosis for this admission?: Yes Plan: Hemodilayisis per Nephrology. (7) Hypomagnesemia Is this a current diagnosis for this admission?: Yes (8) Hypokalemia Is this a current diagnosis for this admission?: Yes (9) Leukocytosis Is this a current diagnosis for this admission?: Yes (10) COVID-19 ruled out by laboratory testing Is this a current diagnosis for this admission?: Yes (11) AV block, 2nd degree Is this a current diagnosis for this admission?: Yes Critical Time Critical Time (minutes): 120 Level of Care: ICU -: 1. The care of a critical patient is a dynamic process. This note is a risk control representative synopsis but static in nature. The timeframe for treatments given in order is not necessarily the actual time these treatments may have been done. 2. This patient requires critical care secondary to ongoing requirements for therapy not offered or safe outside the critical care environment. Transfer to a lower level of care will result in altered life or limb morbidity and mortality. 3. Multidisciplinary rounds completed. 4. ABCDE bundle addressed.
[2020-07-29] MEDS: LATANOPROST 0.005% OPH SOLN 2.5 ML OU SCH (21:49)
[2020-07-30] MEDS: ALBUTEROL SULFATE 0.083% NEB 2.5 MG/3 ML AMPUL NEB SCH ×7 (00:06→20:01)
[2020-07-30] MEDS: INSULIN REG, HUMAN 100 UNIT/ML 3 ML VIAL (PYX) SUBCUT SCH ×4 (00:16→17:45)
[2020-07-30] MEDS: METHYLPREDNISOLONE INJ 125 MG/2 ML SDV IV SCH ×4 (00:17→17:08)
[2020-07-30] MEDS: METOCLOPRAMIDE HCL ORAL SOLN 10 MG/10 ML UDCUP NG SCH ×4 (00:17→17:08)
[2020-07-30] MEDS ORDERED: NORMAL SALINE 1000 ML 1,000 ML IV PRN (05:00)
[2020-07-30] MEDS ORDERED: EPOETIN ALFA-EPBX 10,000 UNIT in SYRINGE, DISPOSABLE, 1 EACH IV PRN (05:00)
[2020-07-30] MEDS ORDERED: HEPARIN SOD (PORCINE) 1,000 UNIT/ML 10 ML VIAL IV PRN (05:00)
[2020-07-30 06:17] LABS: HEMATOCRIT 27.7 % (37.9-51.0); HEMOGLOBIN 9.4 g/dL (13.5-17.0); MEAN CORPUSCULAR HEMOGLOBIN 29.1 pg (27.0-33.4); MEAN CORPUSCULAR HGB CONC 33.8 g/dL (32.0-36.0); MEAN CORPUSCULAR VOLUME 86 fl (80-97); RED BLOOD COUNT 3.22 10^6/uL (4.35-5.55); RED CELL DISTRIBUTION WIDTH 17.2 % (11.5-14.0); WHITE BLOOD COUNT 7.1 10^3/uL (4.0-10.5)
[2020-07-30 06:34] LABS: ARTERIAL BLOOD BASE EXCESS -3.9 mmol/L; ARTERIAL BLOOD H2CO3 1.08 mmol/L (1.05-1.35); ARTERIAL BLOOD HCO3 20.6 mmol/L (20-24); ARTERIAL BLOOD O2 SATURATION 98.6 % (94-98); ARTERIAL BLOOD PCO2 35.8 mmHg (35-45); ARTERIAL BLOOD PH 7.38 (7.35-7.45); ARTERIAL BLOOD PO2 133.1 mmHg (80-100); ARTERIAL BLOOD TOTAL CO2 21.7 mmol/L (23-27)
[2020-07-30 06:35] LABS: ALBUMIN 3.1 g/dL (3.5-5.0); ALKALINE PHOSPHATASE 160 U/L (38-126); ANION GAP 14 (5-19); ASPARTATE AMINO TRANSFERASE 24 U/L (17-59); BILIRUBIN,DIRECT 1.4 mg/dL (0.0-0.4); BILIRUBIN,TOTAL 1.4 mg/dL (0.2-1.3); BLOOD UREA NITROGEN 80 mg/dL (7-20); CALCIUM 8.9 mg/dL (8.4-10.2); CARBON DIOXIDE 20 mmol/L (22-30); CHLORIDE 99 mmol/L (98-107); GLUCOSE 253 mg/dL (75-110); PHOSPHORUS 3.6 mg/dL (2.5-4.5); POTASSIUM 3.8 mmol/L (3.6-5.0); TOTAL PROTEIN 6.4 g/dL (6.3-8.2)
[2020-07-30 06:42] LABS: ARTERIAL BLOOD FIO2 30%
[2020-07-30 07:00] LABS: PLATELET COUNT 75 10^3/uL (150-450)
[2020-07-30 07:05] LABS: ABSOLUTE LYMPHOCYTES# (MANUAL) 0.1 10^3/uL (0.5-4.7); ABSOLUTE MONOCYTES # (MANUAL) 0.1 10^3/uL (0.1-1.4); BASOPHILS % (MANUAL) 0 % (0-2); EOSINOPHILS % (MANUAL) 0 % (0-6); LYMPHOCYTES % (MANUAL) 1 % (13-45); MONOCYTES % (MANUAL) 1 % (3-13); SEGMENTED NEUTROPHILS % (MAN) 98 % (42-78); TOTAL CELLS COUNTED 100
[2020-07-30 07:06] LABS: PLATELET COMMENT DECREASED
[2020-07-30 07:07] LABS: TARGET CELLS 2+
[2020-07-30 07:08] LABS: SCHISTOCYTES SLIGHT
[2020-07-30 07:09] LABS: ANISOCYTOSIS 1+; TOXIC VACUOLATION PRESENT
[2020-07-30] MEDS: TOBRAMYCIN SULFATE NEB 40 MG/ML 30 ML NEB SCH ×2 (07:43→20:01)
[2020-07-30] MEDS: BUDESONIDE NEB 0.25 MG/2 ML AMPUL NEB SCH ×2 (07:43→20:00)
--- NOTE | 2020-07-30 08:22 | RADIOLOGY REPORT (SQ) ---
EXAM DESCRIPTION: CHEST SINGLE VIEW IMAGES COMPLETED DATE/TIME: 07/30/2020 5:17 am REASON FOR STUDY: ETT tube COMPARISON: 07/29/2020 EXAM PARAMETERS: NUMBER OF VIEWS: One view. TECHNIQUE: Single frontal radiographic view of the chest acquired. RADIATION DOSE: NA LIMITATIONS: None. FINDINGS: LUNGS AND PLEURA: Persistent left basilar consolidation with small left effusion. Trace r ight effusion. Chronic bilateral interstitial changes. No pneumothorax. MEDIASTINUM AND HILAR STRUCTURES: No masses. Contour normal. HEART AND VASCULAR STRUCTURES: Stable. BONES: No acute findings. HARDWARE: Endotracheal tube tip overlies midthoracic trachea. Right internal jugular hemodialysis ca theter tip at right atrium. Left subclavian approach central venous catheter with tip at cavoatrial junction. Sternotomy and CABG changes. Enteric tube tip below diaphragm but excluded by collimation . OTHER: No other significant finding. IMPRESSION: Endotracheal tube tip overlies midthoracic trachea. Persistent left basilar consolidation and mild effusion. Trace right effusion. TECHNICAL DOCUMENTATION: JOB ID: [id number] 2010 [employer]- All Rights Reserved Reading location - IP/workstation name: LD
[2020-07-30] MEDS: DOCUSATE SODIUM 100 MG/10 ML UDC NG SCH (10:16)
[2020-07-30] MEDS: COLCHICINE 0.6 MG TABLET NG SCH ×2 (10:16→17:08)
[2020-07-30] MEDS: FONDAPARINUX SODIUM INJ 2.5 MG/0.5 ML DISP.SYRIN SUBCUT SCH ×2 (10:16→10:23)
[2020-07-30] MEDS: PANTOPRAZOLE SODIUM 40 MG VIAL IV SCH (10:16)
[2020-07-30] MEDS: AMINO AC/PROTEIN HYDR/WHEY PRO 11 GM/45 ML PKT NG SCH ×2 (10:17→17:08)
--- NOTE | 2020-07-30 10:33 | PDOC PROGRESS REPORT ---
Subjective Progress Note for:: 07/30/20 Subjective:: I am seeing the patient during dialysis this morning. He appears to be better although he still intubated but he is more awake. For the first time in the last couple weeks at least, he was able to respond by nodding and waving indicating that he is actually understanding me. He is currently tolerating dialysis. He is not on any sedation or vasopressor. Reason For Visit: ASPIRATION, HYPERCARBIC RESPIRATORY FAILURE Physical Exam Vital Signs: Temp Pulse Resp BP Pulse Ox 98.1 F 89 26 H 139/81 H 100 07/30/20 08:14 07/30/20 08:00 07/30/20 07:54 07/30/20 07:54 07/30/20 07:54 Intake & Output 07/29/20 07/30/20 07/31/20 06:59 06:59 06:59 Intake Total 1260 510 Output Total 0 640 600 Balance 1260 -130 -600 Weight 63.5 kg 62.7 kg Vitals during dialysis: Blood pressure 137/87, heart rate of 85, oxygen saturation 100% with FiO2 of 30%. Her blood flow rate on dialysis is 350 mL/min and dialysate flow rate of 801/min. Exam: General appearance: PRESENT: Still intubated but awake Head exam: PRESENT: atraumatic, normocephalic Eye exam: PRESENT: conjunctiva pale, PERRLA. ABSENT: scleral icterus Neck exam: ABSENT: JVD Respiratory exam: PRESENT: Coarse breath sounds. ABSENT: crackles, rales, rhonchi, unlabored, wheezes Cardiovascular exam: PRESENT: Regular rate rhythm -+S1, +S2. ABSENT: diastolic murmur, systolic murmur GI/Abdominal exam: PRESENT: normal bowel sounds, soft. ABSENT: guarding, mass, tenderness Extremities exam: Improved grade 1 bilateral lower extremity edema involving lower legs ankles and feet Neurological exam: PRESENT: alert, awake, responding. Skin exam: PRESENT: dry, warm, Cardiovascular exam: PRESENT: +S1, +S2 GI/Abdominal exam: PRESENT: normal bowel sounds, soft. ABSENT: organomegaly, tenderness Results Laboratory Results: 07/30/20 05:52 07/30/20 05:52 07/30/20 07/30/20 07/30/20 05:52 05:52 05:52 WBC 7.1 RBC 3.22 L Hgb 9.4 L Hct 27.7 L MCV 86 MCH 29.1 MCHC 33.8 RDW 17.2 H Plt Count 75 L Seg Neutrophils % Not Reportable Carbonic Acid 1.08 HCO3/H2CO3 Ratio 19:1 ABG pH 7.38 ABG pCO2 35.8 ABG pO2 133.1 H ABG HCO3 20.6 ABG O2 Saturation 98.6 H ABG Base Excess -3.9 FiO2 30% Sodium 133.3 L Potassium 3.8 Chloride 99 Carbon Dioxide 20 L Anion Gap 14 BUN 80 H Creatinine 2.80 H Est GFR ( Amer) 28 L Glucose 253 H Calcium 8.9 Phosphorus 3.6 Magnesium 2.0 Total Bilirubin 1.4 H AST 24 Alkaline Phosphatase 160 H Total Protein 6.4 Albumin 3.1 L 07/27/20 12:55 Blood Blood Culture (PCR) - Final Maral Albicans 07/27/20 13:20 Tracheal Aspirate Gram Stain - Final 07/27/20 13:20 Tracheal Aspirate Sputum Culture - Final Escherichia Coli Esbl Greatly Reduced Normal Indira 07/09/20 07/20/20 07/20/20 11:47 05:00 05:00 Creatine Kinase 25 L Troponin I 0.235 0.232 NT-Pro-B Natriuret Pep [id number] H Impressions: Foot X-Ray 07/10/20 00:00 IMPRESSION: SEVERE DIFFUSE DEMINERALIZATION. CHRONIC CHANGES IN THE 5TH TOE. PROGRESSIVE DESTRUCTION OF THE 2ND TOE. MAY BE DUE TO OSTEOMYELITIS. Head CT 07/10/20 16:23 IMPRESSION: 1. No significant interval changes since the prior examinations dated 07/09/2020, 07/03/2020 and 04/12/2020. No acute intracranial abnormality. 2. Chronic mild small vessel ischemic changes. Stable appearance to the low attenuated area in the region of the right hankins radiata. Further evaluation with MRI Brain maybe helpful to exclude acute changes. 3. New finding of a fluid collection within the posterior nasopharynx which lies anterior and adjacent to the adenoids and extends into the oropharynx. Interval placement of endotracheal and nasogastric tube since the previous study dated 07/09/2020. This finding may be on an inflammatory basis, possibly due to reflux. Correlation suggested. EVIDENCE OF ACUTE STROKE: NO Chest X-Ray 07/30/20 05:00 IMPRESSION: Endotracheal tube tip overlies midthoracic trachea. Persistent left basilar consolidation and mild effusion. Trace right effusion. Assessment & Plan - Diagnosis (1) ESRD on hemodialysis Is this a current diagnosis for this admission?: Yes Plan: We will do dialysis today for 2 hours, using the patient's PermCath, with 3 potassium bath, blood flow rate of 350 mL per minute, dialysate flow rate of 800 mL per minute, ultrafiltration 0.5 L as tolerated, no heparin and Procrit with 10,000 units during dialysis intravenously. Patient is being monitored throughout dialysis treatment and so far is no issues. (2) Pneumonia due to Escherichia coli Qualifiers: Laterality: unspecified laterality Lung location: unspecified part of lung Qualified Code(s): J15.5 - Pneumonia due to Escherichia coli Is this a current diagnosis for this admission?: Yes Plan: Positive trach aspirate for ESBL E. coli on . Currently on doxycycline IV since 07/28 per pulp bleacher. Chest x-ray(07/29) showed left basal consolidation and mild effusion with trace of right pleural effusion. (3) Acute respiratory failure with hypercapnia Is this a current diagnosis for this admission?: Yes Plan: Exact etiology uncertain. 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 Defer to pulp bleacher for management. Currently being given Solu-Medrol 60 mg IV every 6 hours. (4) Hypokalemia Is this a current diagnosis for this admission?: Yes Plan: Currently within normal limits. Replace as necessary. We are using high potassium bath on dialysis. (5) Metabolic encephalopathy Is this a current diagnosis for this admission?: Yes Plan: Much improved today. (6) Axonal GBS (Guillain-Alabaster syndrome) Is this a current diagnosis for this admission?: Yes Plan: Contributing to weakness of respiratory muscles causing difficulty in the weaning from the ventilator. Currently on steroids. (7) Hyponatremia Is this a current diagnosis for this admission?: Yes Plan: Mild. We will try some ultrafiltration today. (8) Hypoalbuminemia Is this a current diagnosis for this admission?: Yes (9) Anemia in chronic kidney disease (CKD) Qualifiers: Chronic kidney disease stage: on chronic dialysis Qualified Code(s): N18.6 - End stage renal disease; D63.1 - Anemia in chronic kidney disease; Z99.2 - Dependence on renal dialysis Is this a current diagnosis for this admission?: Yes Plan: Retacrit during dialysis as needed. (10) Hypotension Qualifiers: Hypotension type: idiopathic hypotension Qualified Code(s): I95.0 - Idiopathic hypotension Is this a current diagnosis for this admission?: Yes Plan: Resolved with acceptable blood pressure without any pressors. (11) Diabetes mellitus, type II Qualifiers: Diabetes mellitus care home insulin use: without terminal operations manager use Is this a current diagnosis for this admission?: Yes (12) Hypophosphatemia Is this a current diagnosis for this admission?: Yes Plan: Currently within normal limits. (13) Thrombocytopenia Is this a current diagnosis for this admission?: Yes Plan: Heparin platelet antibodies pending. - Time Time with patient: 15-25 minutes
[2020-07-30] MEDS: DOXYCYCLINE HYCLATE 100 MG in DEXTROSE 5%-WATER 250 ML IV SCH ×2 (10:50→12:15)
[2020-07-30] MEDS ORDERED: HYDROMORPHONE HCL INJ/PF 2 MG/ML AMPULE IV PRN (14:04)
--- NOTE | 2020-07-30 14:27 | PDOC CRITICAL CARE PROG REPORT ---
General Date:: 07/30/20 ICU Day:: 20 Ventilator Day:: 20 Hospital Day:: 21 Resuscitation Status: Full Code Events in the past 12 to 24 Hours:: More awake but unable to extubate. Review of systems relevant to events:: Neurologic, pulmonary,renal. Reason for ICU Addmission:: More awake but still intubated - Medications: Medications reviewed and adjusted accordingly: Yes Vasopressors:: None Sedation:: None Physical Exam Vital Signs: Temp Pulse Resp BP Pulse Ox 98.2 F 125 H 16 132/74 H 100 07/30/20 13:59 07/30/20 13:54 07/30/20 14:00 07/30/20 13:54 07/30/20 14:00 Intake & Output 07/29/20 07/30/20 07/31/20 06:59 06:59 06:59 Intake Total 1260 510 550 Output Total 0 640 1200 Balance 1260 -130 -650 Weight 63.5 kg 62.7 kg Weight/Height Weight 62.7 kg Height 5 ft 7 in General appearance: PRESENT: no acute distress, cooperative, thin Head exam: PRESENT: atraumatic, normocephalic Eye exam: PRESENT: conjunctiva pink, EOMI, PERRLA. ABSENT: scleral icterus Ear exam: PRESENT: normal external ear exam Mouth exam: PRESENT: moist, tongue midline Respiratory exam: PRESENT: clear to auscultation jolie, decreased breath sounds. ABSENT: rales, rhonchi, wheezes Cardiovascular exam: PRESENT: RRR, tachycardia. ABSENT: diastolic murmur, rubs, systolic murmur GI/Abdominal exam: PRESENT: normal bowel sounds, soft. ABSENT: distended, guarding, mass, organolmegaly, rebound, tenderness Rectal exam: PRESENT: deferred Gentrourinary exam: PRESENT: indwelling catheter Extremities exam: PRESENT: full ROM, +1 edema, other - Toes black as before. ABSENT: calf tenderness, clubbing, pedal edema Neurological exam: PRESENT: altered, awake, CN II-XII grossly intact Tubes/Lines: PRESENT: Endotracheal Tube, Central Line, Dialysis catheter, Nasogastic Tube Laboratory/Radiographs Laboratory Results: 07/30/20 05:52 07/30/20 05:52 07/30/20 07/30/20 07/30/20 05:52 05:52 05:52 WBC 7.1 RBC 3.22 L Hgb 9.4 L Hct 27.7 L MCV 86 MCH 29.1 MCHC 33.8 RDW 17.2 H Plt Count 75 L Seg Neutrophils % Not Reportable Carbonic Acid 1.08 HCO3/H2CO3 Ratio 19:1 ABG pH 7.38 ABG pCO2 35.8 ABG pO2 133.1 H ABG HCO3 20.6 ABG O2 Saturation 98.6 H ABG Base Excess -3.9 FiO2 30% Sodium 133.3 L Potassium 3.8 Chloride 99 Carbon Dioxide 20 L Anion Gap 14 BUN 80 H Creatinine 2.80 H Est GFR ( Amer) 28 L Glucose 253 H Calcium 8.9 Phosphorus 3.6 Magnesium 2.0 Total Bilirubin 1.4 H AST 24 Alkaline Phosphatase 160 H Total Protein 6.4 Albumin 3.1 L 07/27/20 12:55 Blood Blood Culture (PCR) - Final Maral Albicans 07/27/20 13:20 Tracheal Aspirate Gram Stain - Final 07/27/20 13:20 Tracheal Aspirate Sputum Culture - Final Escherichia Coli Esbl Greatly Reduced Normal Indira 07/09/20 07/20/20 07/20/20 11:47 05:00 05:00 Creatine Kinase 25 L Troponin I 0.235 0.232 NT-Pro-B Natriuret Pep [id number] H 07/30/20 05:52 Creatine Kinase Troponin I NT-Pro-B Natriuret Pep [id number] H Impressions: Foot X-Ray 07/10/20 00:00 IMPRESSION: SEVERE DIFFUSE DEMINERALIZATION. CHRONIC CHANGES IN THE 5TH TOE. PROGRESSIVE DESTRUCTION OF THE 2ND TOE. MAY BE DUE TO OSTEOMYELITIS. Head CT 07/10/20 16:23 IMPRESSION: 1. No significant interval changes since the prior examinations dated 07/09/2020, 07/03/2020 and 04/12/2020. No acute intracranial abnormality. 2. Chronic mild small vessel ischemic changes. Stable appearance to the low attenuated area in the region of the right hankins radiata. Further evaluation with MRI Brain maybe helpful to exclude acute changes. 3. New finding of a fluid collection within the posterior nasopharynx which lies anterior and adjacent to the adenoids and extends into the oropharynx. Interval placement of endotracheal and nasogastric tube since the previous study dated 07/09/2020. This finding may be on an inflammatory basis, possibly due to reflux. Correlation suggested. EVIDENCE OF ACUTE STROKE: NO Chest X-Ray 07/30/20 05:00 IMPRESSION: Endotracheal tube tip overlies midthoracic trachea. Persistent left basilar consolidation and mild effusion. Trace right effusion. All labs, radiographs, diagnostic studies and EKGs were personally reviewed: Yes In addition, reports of radiographic and diagnostic studies were read: Yes Assessment and Plan - Diagnosis (1) Acute respiratory failure Qualifiers: Respiratory failure complication: hypercapnia Qualified Code(s): J96.02 - Acute respiratory failure with hypercapnia Is this a current diagnosis for this admission?: Yes Plan: His hypercapnea has resolved. However on PSV today he became tachypneic and tachycardic so was placed back on SIMV. Will try again later. (2) ESRD on hemodialysis Is this a current diagnosis for this admission?: Yes Plan: Dialyzed today without difficulty (3) Axonal GBS (Guillain-Linwood syndrome) Is this a current diagnosis for this admission?: Yes Plan: He is now on daily steroids for what may be a chronic weakness. (4) Peripheral vascular disease Is this a current diagnosis for this admission?: Yes Plan: Continue conservative treatment. (5) Tremor Is this a current diagnosis for this admission?: Yes Plan: Not present today. Plan Summary: Try to wean again later today. Await results of EEG Critical Time Critical Time (minutes): 35 Level of Care: ICU Anticipated discharge: Home with Homehealth Anticipated DC Timeframe: Other -: 1. The care of a critical patient is a dynamic process. This note is a sales and marketing representative synopsis but static in nature. The timeframe for treatments given in order is not necessarily the actual time these treatments may have been done. 2. This patient requires critical care secondary to ongoing requirements for therapy not offered or safe outside the critical care environment. Transfer to a lower level of care will result in altered life or limb morbidity and mor tality. 3. Multidisciplinary rounds completed. 4. ABCDE bundle addressed.
--- NOTE | 2020-07-30 17:44 | NEURO WORKBENCH EEG REPORT ---
EEG Report Patient: Maicol Tiwari ID: [id number] Referring Doctor: Srikanth Keller Date: 07/30/2020 Reason for study: Evaluate Epileptiform activity Medications: Albuterol, budesonide, colchicine, colace, doxycycline, fondaparinux, latanaprost, solumedrol, reglan, protonix, tobramycin History: This is a 64 year old male with a history of glaucoma, TIA, GBS, CABG, CHF, ME, CABG x4 vessel, hypercholesterolemia, asthma, bronchitis, sleep apnea, ESRD, and respiratory failure. The patient is intubated in the ICU. This EEG was requested for evaluation of epileptiform and seizure activity. EEG Interpretation This EEG was recorded in the ICU and patient is intubated. There were spontaneous eye openings and closings, and the EEG was reactive to these eye openings and closings. There was no posterior dominant rhythm present. The backgound EEG is dominated by diffuse low amplitude polymorphic theta activity overriding diffuse polymorphic delta activity. There are periods of global amplitude attenuation, but this is not a burst-suppression pattern. Photic stimulation was done and photic driving was not noted. There was no normal sleep architecture noted (ie no vertex waves, POSTs, or sleep spindles). There was frequent electrode artifact from F7 and T4 which limited interpretation. There was no epileptiform activity (meaning no sharp waves or spikes), and there were no seizures noted. The EKG showed rates typically in the 60-75 range, but with periods of irregularity and occasional wide complex ectopic beats. EEG Impression This is a markedly abnormal EEG and consistent with diffuse cerebral dysfunction which is non-specific for etiology. Likely considerations would include diffuse hypoxic injury, toxic-metabolic derangements, drug intoxication, or post-ictal state. There were no EEG findings consistent with epilepsy, but if there is strong concern for clinical or sub-clinical seizure activity then long-term EEG monitoring would be advised or additional repeat routine EEGs if long-term monitoring is not available. An abnormal cardiac rhythm was noted and further cardiac evaluation should be considered. INTERPRETING NEUROLOGIST: Dajuan Paul MD Board certified by the [place] [employer] in Neurology, Clinical Neurophysiology, and Sleep Medicine [facility]
--- NOTE | 2020-07-30 21:44 | EKG REPORT ---
SEVERITY:- ABNORMAL ECG - SINUS TACHYCARDIA LEFT ATRIAL ABNORMALITY NONSPECIFIC INTRAVENTRICULAR CONDUCTION DELAY INFERIOR INFARCT, AGE INDETERMINATE ANTEROLATERAL INFARCT, AGE INDETERMINATE : Confirmed by: Zoe Lazo 30-Jul-2020 21:43:50
[2020-07-30] MEDS: LATANOPROST 0.005% OPH SOLN 2.5 ML OU SCH (22:02)
[2020-07-30 22:51] LABS: ANION GAP 12 (5-19); BLOOD UREA NITROGEN 61 mg/dL (7-20); CALCIUM 8.3 mg/dL (8.4-10.2); CARBON DIOXIDE 23 mmol/L (22-30); CHLORIDE 98 mmol/L (98-107); GLUCOSE 334 mg/dL (75-110); POTASSIUM 3.5 mmol/L (3.6-5.0)
[2020-07-31] MEDS: DOXYCYCLINE HYCLATE 100 MG in DEXTROSE 5%-WATER 250 ML IV SCH ×2 (00:43→11:41)
[2020-07-31] MEDS: METOCLOPRAMIDE HCL ORAL SOLN 10 MG/10 ML UDCUP NG SCH ×4 (00:43→17:22)
[2020-07-31] MEDS: INSULIN REG, HUMAN 100 UNIT/ML 3 ML VIAL (PYX) SUBCUT SCH ×5 (00:44→23:01)
[2020-07-31] MEDS: METHYLPREDNISOLONE INJ 125 MG/2 ML SDV IV SCH ×4 (00:44→11:43)
[2020-07-31] MEDS: ALBUTEROL SULFATE 0.083% NEB 2.5 MG/3 ML AMPUL NEB SCH ×4 (01:45→19:55)
[2020-07-31 04:03] LABS: ANION GAP 15 (5-19); BLOOD UREA NITROGEN 68 mg/dL (7-20); CALCIUM 8.4 mg/dL (8.4-10.2); CARBON DIOXIDE 22 mmol/L (22-30); CHLORIDE 97 mmol/L (98-107); GLUCOSE 306 mg/dL (75-110); PHOSPHORUS 3.1 mg/dL (2.5-4.5); POTASSIUM 3.5 mmol/L (3.6-5.0)
[2020-07-31] MEDS ORDERED: MAGNESIUM SULFATE/D5W 1 GM/100 ML RTUPB IV ONE (04:45)
[2020-07-31] MEDS: POTASSI CL 20 MEQ/50 ML RIDER 20 MEQ/50 ML RTUPB IV SCH ×2 (05:41→08:05)
[2020-07-31] MEDS: BUDESONIDE NEB 0.25 MG/2 ML AMPUL NEB SCH ×2 (08:14→19:55)
[2020-07-31] MEDS: TOBRAMYCIN SULFATE NEB 40 MG/ML 30 ML NEB SCH ×2 (08:15→19:55)
--- NOTE | 2020-07-31 08:27 | PDOC CRITICAL CARE PROG REPORT ---
General Date:: 07/31/20 ICU Day:: Hospital Day:: Resuscitation Status: Full Code Events in the past 12 to 24 Hours:: Failed PSV wean. Try again today. Review of systems relevant to events:: Pulmonary, neurological. Reason for ICU Addmission:: More awake but still intubated - Medications: Medications reviewed and adjusted accordingly: Yes Vasopressors:: None Sedation:: None Physical Exam Vital Signs: Temp Pulse Resp BP Pulse Ox 97.8 F 94 35 H 120/66 100 07/31/20 07:43 07/31/20 07:43 07/31/20 07:43 07/31/20 07:43 07/31/20 07:43 Intake & Output 07/30/20 07/31/20 08/01/20 06:59 06:59 06:59 Intake Total 510 1430 50 Output Total 640 1900 Balance -130 -470 50 Weight 62.7 kg 29.347 kg Weight/Height Weight 29.347 kg Height 5 ft 7 in General appearance: PRESENT: no acute distress, thin Head exam: PRESENT: atraumatic, normocephalic Eye exam: PRESENT: conjunctival injection Ear exam: PRESENT: normal external ear exam Mouth exam: PRESENT: moist, tongue midline Respiratory exam: PRESENT: clear to auscultation jolie. ABSENT: rales, rhonchi, wheezes Cardiovascular exam: PRESENT: RRR. ABSENT: diastolic murmur, rubs, systolic murmur GI/Abdominal exam: PRESENT: normal bowel sounds, soft. ABSENT: distended, guarding, mass, organolmegaly, rebound, tenderness Rectal exam: PRESENT: deferred Gentrourinary exam: PRESENT: indwelling catheter Extremities exam: PRESENT: +1 edema, other - Toes are still same color. 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 Neurological exam: PRESENT: altered, awake, CN II-XII grossly intact Skin exam: PRESENT: other - Toes as described above. Tubes/Lines: PRESENT: Endotracheal Tube, Central Line, Dialysis catheter, Nasogastic Tube Laboratory/Radiographs Laboratory Results: 07/30/20 05:52 07/31/20 03:25 07/30/20 07/31/20 22:10 03:25 Sodium 133.1 L 133.8 L Potassium 3.5 L 3.5 L Chloride 98 97 L Carbon Dioxide 23 22 Anion Gap 12 15 BUN 61 H 68 H Creatinine 1.99 H 2.08 H Est GFR ( Amer) 41 L 39 L Glucose 334 H 306 H Calcium 8.3 L 8.4 Phosphorus 3.1 Magnesium 1.9 1.8 07/27/20 12:55 Blood Blood Culture (PCR) - Final Maral Albicans 07/09/20 07/20/20 07/20/20 11:47 05:00 05:00 Creatine Kinase 25 L Troponin I 0.235 0.232 NT-Pro-B Natriuret Pep [id number] H 07/30/20 05:52 Creatine Kinase Troponin I NT-Pro-B Natriuret Pep [id number] H Impressions: Foot X-Ray 07/10/20 00:00 IMPRESSION: SEVERE DIFFUSE DEMINERALIZATION. CHRONIC CHANGES IN THE 5TH TOE. PROGRESSIVE DESTRUCTION OF THE 2ND TOE. MAY BE DUE TO OSTEOMYELITIS. Head CT 07/10/20 16:23 IMPRESSION: 1. No significant interval changes since the prior examinations dated 07/09/2020, 07/03/2020 and 04/12/2020. No acute intracranial abnormality. 2. Chronic mild small vessel ischemic changes. Stable appearance to the low attenuated area in the region of the right hankins radiata. Further evaluation with MRI Brain maybe helpful to exclude acute changes. 3. New finding of a fluid collection within the posterior nasopharynx which lies anterior and adjacent to the adenoids and extends into the oropharynx. Interval placement of endotracheal and nasogastric tube since the previous study dated 07/09/2020. This finding may be on an inflammatory basis, possibly due to reflux. Correlation suggested. EVIDENCE OF ACUTE STROKE: NO Chest X-Ray 07/30/20 05:00 IMPRESSION: Endotracheal tube tip overlies midthoracic trachea. Persistent left basilar consolidation and mild effusion. Trace right effusion. EKG: ST, old infarct. Non-specific ST and T changes. All labs, radiographs, diagnostic studies and EKGs were personally reviewed: Yes In addition, reports of radiographic and diagnostic studies were read: Yes Assessment and Plan - Diagnosis (1) Acute respiratory failure Qualifiers: Respiratory failure complication: hypercapnia Qualified Code(s): J96.02 - Acute respiratory failure with hypercapnia Is this a current diagnosis for this admission?: Yes Plan: Hypercapnea has been his overall problem. Probably due to weakess and PNA, treated. He became tachypneic to 50 with PSV yesterday. Will try a slower wean today. (2) ESRD on hemodialysis Is this a current diagnosis for this admission?: Yes Plan: No HD today planned, not needed. (3) Axonal GBS (Guillain-Urania syndrome) Is this a current diagnosis for this admission?: Yes Plan: Keep steroids for a week before tapering. (4) Peripheral vascular disease Is this a current diagnosis for this admission?: Yes Plan: Unchanged (5) Tremor Is this a current diagnosis for this admission?: Yes Plan: Resolved. EEG shows no obvious seizures, Abnormalities can be explained by old stroke and Guillan-Urania. He also has had a cardiology evaluation with long standing CAD. Plan Summary: Try slower PSV wean today. If unable trach is next. Critical Time Critical Time (minutes): 35 Level of Care: ICU Anticipated DC Timeframe: Other -: 1. The care of a critical patient is a dynamic process. This note is a sales representative supervisor synopsis but static in nature. The timeframe for treatments given in order is not necessarily the actual time these treatments may have been done. 2. This patient requires critical care secondary to ongoing requirements for therapy not offered or safe outside the critical care environment. Transfer to a lower level of care will result in altered life or limb morbidity and mortality. 3. Multidisciplinary rounds completed. 4. ABCDE bundle addressed.
[2020-07-31] MEDS: AMINO AC/PROTEIN HYDR/WHEY PRO 11 GM/45 ML PKT NG SCH ×2 (10:03→17:22)
[2020-07-31] MEDS: COLCHICINE 0.6 MG TABLET NG SCH ×2 (10:03→17:22)
[2020-07-31] MEDS: FONDAPARINUX SODIUM INJ 2.5 MG/0.5 ML DISP.SYRIN SUBCUT SCH (10:04)
[2020-07-31] MEDS: DOCUSATE SODIUM 100 MG/10 ML UDC NG SCH (10:04)
[2020-07-31] MEDS: PANTOPRAZOLE SODIUM 40 MG VIAL IV SCH (10:04)
[2020-07-31] MEDS: LATANOPROST 0.005% OPH SOLN 2.5 ML OU SCH (23:02)
[2020-08-01] MEDS: METOCLOPRAMIDE HCL ORAL SOLN 10 MG/10 ML UDCUP NG SCH ×4 (00:55→23:06)
[2020-08-01] MEDS: DOXYCYCLINE HYCLATE 100 MG in DEXTROSE 5%-WATER 250 ML IV SCH ×2 (00:55→12:30)
[2020-08-01 01:12] LABS: ANION GAP 12 (5-19); BLOOD UREA NITROGEN 79 mg/dL (7-20); CALCIUM 8.4 mg/dL (8.4-10.2); CARBON DIOXIDE 22 mmol/L (22-30); CHLORIDE 97 mmol/L (98-107); GLUCOSE 222 mg/dL (75-110); POTASSIUM 3.3 mmol/L (3.6-5.0)
[2020-08-01] MEDS: ALBUTEROL SULFATE 0.083% NEB 2.5 MG/3 ML AMPUL NEB SCH ×4 (01:45→20:29)
[2020-08-01] MEDS: INSULIN REG, HUMAN 100 UNIT/ML 3 ML VIAL (PYX) SUBCUT SCH ×6 (01:55→23:37)
[2020-08-01 04:39] LABS: ABSOLUTE LYMPHOCYTES (AUTO) 0.4 10^3/uL (0.5-4.7); ABSOLUTE MONOCYTES (AUTO) 0.5 10^3/uL (0.1-1.4); ABSOLUTE NEUT (AUTO) 7.2 10^3/uL (1.7-8.2); BASOPHILS % (AUTO) 0.3 % (0-2); HEMATOCRIT 28.2 % (37.9-51.0); HEMOGLOBIN 9.7 g/dL (13.5-17.0); LYMPHOCYTES % (AUTO) 5.2 % (13-45); MEAN CORPUSCULAR HEMOGLOBIN 29.7 pg (27.0-33.4); MEAN CORPUSCULAR HGB CONC 34.3 g/dL (32.0-36.0); MEAN CORPUSCULAR VOLUME 86 fl (80-97); MONOCYTES % (AUTO) 6.4 % (3-13); RED BLOOD COUNT 3.27 10^6/uL (4.35-5.55); SEGMENTED NEUTROPHILS % (AUTO) 88.1 % (42-78); TOTAL CELLS COUNTED % (AUTO) 100 %; WHITE BLOOD COUNT 8.2 10^3/uL (4.0-10.5)
[2020-08-01 04:57] LABS: ANION GAP 13 (5-19); BLOOD UREA NITROGEN 82 mg/dL (7-20); CALCIUM 8.3 mg/dL (8.4-10.2); CARBON DIOXIDE 20 mmol/L (22-30); CHLORIDE 98 mmol/L (98-107); GLUCOSE 168 mg/dL (75-110); POTASSIUM 3.3 mmol/L (3.6-5.0); TRIGLYCERIDES 85 mg/dL (<150)
[2020-08-01] MEDS ORDERED: HEPARIN SOD (PORCINE) 1,000 UNIT/ML 10 ML VIAL IV PRN (05:00)
[2020-08-01] MEDS ORDERED: EPOETIN ALFA-EPBX 10,000 UNIT in SYRINGE, DISPOSABLE, 1 EACH IV PRN (05:00)
[2020-08-01] MEDS ORDERED: NORMAL SALINE 1000 ML 1,000 ML IV PRN (05:00)
[2020-08-01 05:43] LABS: PLATELET COUNT 57 10^3/uL (150-450)
[2020-08-01 06:38] LABS: ARTERIAL BLOOD BASE EXCESS -5.7 mmol/L; ARTERIAL BLOOD H2CO3 1.07 mmol/L (1.05-1.35); ARTERIAL BLOOD HCO3 19.2 mmol/L (20-24); ARTERIAL BLOOD O2 SATURATION 95.2 % (94-98); ARTERIAL BLOOD PCO2 35.6 mmHg (35-45); ARTERIAL BLOOD PH 7.35 (7.35-7.45); ARTERIAL BLOOD PO2 78.9 mmHg (80-100); ARTERIAL BLOOD TOTAL CO2 20.3 mmol/L (23-27)
[2020-08-01 06:41] LABS: ARTERIAL BLOOD FIO2 30%
[2020-08-01] MEDS: BUDESONIDE NEB 0.25 MG/2 ML AMPUL NEB SCH ×2 (08:09→20:29)
[2020-08-01] MEDS: TOBRAMYCIN SULFATE NEB 40 MG/ML 30 ML NEB SCH ×2 (08:09→20:27)
[2020-08-01] MEDS: DOCUSATE SODIUM 100 MG/10 ML UDC NG SCH (09:47)
[2020-08-01] MEDS: METHYLPREDNISOLONE INJ 125 MG/2 ML SDV IV SCH (09:47)
[2020-08-01] MEDS: AMINO AC/PROTEIN HYDR/WHEY PRO 11 GM/45 ML PKT NG SCH ×2 (09:49→23:06)
[2020-08-01] MEDS: PANTOPRAZOLE SODIUM 40 MG VIAL IV SCH (09:49)
[2020-08-01] MEDS: COLCHICINE 0.6 MG TABLET NG SCH ×2 (09:52→23:05)
[2020-08-01] MEDS: FONDAPARINUX SODIUM INJ 2.5 MG/0.5 ML DISP.SYRIN SUBCUT SCH (10:01)
--- NOTE | 2020-08-01 15:09 | RADIOLOGY REPORT (SQ) ---
EXAM DESCRIPTION: CHEST SINGLE VIEW IMAGES COMPLETED DATE/TIME: 08/01/2020 3:00 pm REASON FOR STUDY: N/G tube Placement/ Post Extubation COMPARISON: 07/30/2020 EXAM PARAMETERS: NUMBER OF VIEWS: One view. TECHNIQUE: Single frontal radiographic view of the chest acquired. RADIATION DOSE: NA LIMITATIONS: None. FINDINGS: LUNGS AND PLEURA: Basilar infiltrates and small effusions remain. Endotracheal tube is be en removed. Left-sided central line and dialysis catheter remain in place. NG tube is in place tip lies in the left upper quadrant most likely within stomach. MEDIASTINUM AND HILAR STRUCTURES: No masses. Contour normal. HEART AND VASCULAR STRUCTURES: Stable in appearance. BONES: No acute findings. HARDWARE: Sternotomy wires are in place. OTHER: No other significant finding. IMPRESSION: No interval change following extubation. Persistent basilar airspace disease and small effusions left greater than right. NG tube is in satisfactory position. TECHNICAL DOCUMENTATION: JOB ID: [id number] 2010 [employer]- All Rights Reserved Reading location - IP/workstation name: LD
--- NOTE | 2020-08-01 16:11 | PDOC PROGRESS REPORT ---
Subjective Progress Note for:: 08/01/20 Reason For Visit: Patient seen today in the ICU. Remains intubated but he is more awake and responsive. Patient currently undergoing dialysis. Blood pressure is rather tenuous. Plan to remove minimal fluid. Labs and medications were reviewed. Dialysis orders were reviewed with the treating dialysis nurse. Patient was discussed with orchestrator. Physical Exam Vital Signs: Temp Pulse Resp BP Pulse Ox 98.1 F 100 28 H 120/68 100 08/01/20 08:54 08/01/20 13:38 08/01/20 13:38 08/01/20 08:18 08/01/20 12:00 Intake & Output 07/31/20 08/01/20 08/02/20 06:59 06:59 06:59 Intake Total 1530 1455 Output Total 1900 1030 500 Balance -370 425 -500 Weight 29.347 kg 66.9 kg General appearance: PRESENT: no acute distress Respiratory exam: PRESENT: clear to auscultation jolie. ABSENT: crackles Cardiovascular exam: PRESENT: +S1, +S2 GI/Abdominal exam: PRESENT: normal bowel sounds, soft. ABSENT: organomegaly, tenderness Results Laboratory Results: 08/01/20 04:15 08/01/20 04:15 08/01/20 08/01/20 08/01/20 00:40 04:15 04:15 WBC 8.2 RBC 3.27 L Hgb 9.7 L Hct 28.2 L MCV 86 MCH 29.7 MCHC 34.3 RDW 18.0 H Plt Count 57 L Seg Neutrophils % 88.1 H Carbonic Acid HCO3/H2CO3 Ratio ABG pH ABG pCO2 ABG pO2 ABG HCO3 ABG O2 Saturation ABG Base Excess FiO2 Sodium 130.5 L 131.4 L Potassium 3.3 L 3.3 L Chloride 97 L 98 Carbon Dioxide 22 20 L Anion Gap 12 13 BUN 79 H 82 H Creatinine 2.46 H 2.41 H Est GFR ( Amer) 32 L 33 L Glucose 222 H 168 H Calcium 8.4 8.3 L Triglycerides 85 08/01/20 06:22 WBC RBC Hgb Hct MCV MCH MCHC RDW Plt Count Seg Neutrophils % Carbonic Acid 1.07 HCO3/H2CO3 Ratio 17:1 ABG pH 7.35 ABG pCO2 35.6 ABG pO2 78.9 L ABG HCO3 19.2 L ABG O2 Saturation 95.2 ABG Base Excess -5.7 FiO2 30% Sodium Potassium Chloride Carbon Dioxide Anion Gap BUN Creatinine Est GFR ( Amer) Glucose Calcium Triglycerides 07/27/20 13:05 Blood Blood Culture - Final NO GROWTH IN 5 DAYS 07/27/20 12:55 Blood Blood Culture (PCR) - Final Maral Albicans 07/27/20 12:55 Blood Blood Culture - Final C.albicans/C.dubliniensis 07/09/20 07/20/20 07/20/20 11:47 05:00 05:00 Creatine Kinase 25 L Troponin I 0.235 0.232 NT-Pro-B Natriuret Pep [id number] H 07/30/20 05:52 Creatine Kinase Troponin I NT-Pro-B Natriuret Pep [id number] H Impressions: Foot X-Ray 07/10/20 00:00 IMPRESSION: SEVERE DIFFUSE DEMINERALIZATION. CHRONIC CHANGES IN THE 5TH TOE. PROGRESSIVE DESTRUCTION OF THE 2ND TOE. MAY BE DUE TO OSTEOMYELITIS. Head CT 07/10/20 16:23 IMPRESSION: 1. No significant interval changes since the prior examinations dated 07/09/2020, 07/03/2020 and 04/12/2020. No acute intracranial abnormality. 2. Chronic mild small vessel ischemic changes. Stable appearance to the low attenuated area in the region of the right hankins radiata. Further evaluation with MRI Brain maybe helpful to exclude acute changes. 3. New finding of a fluid collection within the posterior nasopharynx which lies anterior and adjacent to the adenoids and extends into the oropharynx. Interval placement of endotracheal and nasogastric tube since the previous study dated 07/09/2020. This finding may be on an inflammatory basis, possibly due to reflux. Correlation suggested. EVIDENCE OF ACUTE STROKE: NO Chest X-Ray 08/01/20 14:33 IMPRESSION: No interval change following extubation. Persistent basilar airspace disease and small effusions left greater than right. NG tube is in satisfactory position. Assessment & Plan - Diagnosis (1) ESRD on hemodialysis Is this a current diagnosis for this admission?: Yes Plan: Patient currently undergoing dialysis. He is currently off all pressors and blood pressure looks relatively stable prior to dialysis but then he drops while undergoing dialysis and fluid removal becomes rather difficult. Dialysis orders were reviewed with treating dialysis nurse. (2) Hypotension Qualifiers: Hypotension type: idiopathic hypotension Qualified Code(s): I95.0 - Idiopathic hypotension Is this a current diagnosis for this admission?: Yes Plan: Currently off pressors and remains electively stable. However he drops when we put him on dialysis and tried to extract fluid. (3) Acute respiratory failure Qualifiers: Respiratory failure complication: hypercapnia Qualified Code(s): J96.02 - Acute respiratory failure with hypercapnia Is this a current diagnosis for this admission?: Yes Plan: Hypercarbic respiratory failure. Differential diagnosis for this includes generalized debility on top of Guillain-[place]/bilateral pleural effusions/occult consolidation/Possible aspiration/acute on chronic CHF.Currently intubated.Mandarin Tutor considering tracheostomy and discussions already carried out with his who is holding back at the moment. 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 (6) History of Clostridium difficile infection Plan: Now positive for GDH though PCR negative. Being treated with PO vanc. 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 (8) Peripheral vascular disease Is this a current diagnosis for this admission?: Yes Plan: Development of early gangrene of his toes with history of osteomyelitis in the past. (9) Recurrent urinary tract infection Plan: Monitor for this. If his white count especially is going high he might need to have an ED catheter to test his urine for possible infections.
[2020-08-01] MEDS: LATANOPROST 0.005% OPH SOLN 2.5 ML OU SCH (23:37)
--- NOTE | 2020-08-02 00:49 | RADIOLOGY REPORT (SQ) ---
EXAM DESCRIPTION: XR ABDOMEN 1 VIEW (KUB) COMPLETED DATE/TME: 08/01/2020 00:00 CLINICAL HISTORY: 64 years, Male, NG placement COMPARISON: None. NUMBER OF VIEWS: 1 TECHNIQUE: AP abdomen LIMITATIONS: None. FINDINGS: Enteric tube with the tip in the stomach. The bowel gas pattern is nonspecific. Osteopenia. Vascular calcifications. IMPRESSION: Tip of the enteric tube in the stomach copyright 2010 [employer]- All Rights Reserved
[2020-08-02] MEDS: DOXYCYCLINE HYCLATE 100 MG in DEXTROSE 5%-WATER 250 ML IV SCH (00:59)
[2020-08-02] MEDS: METOCLOPRAMIDE HCL ORAL SOLN 10 MG/10 ML UDCUP NG SCH ×4 (00:59→18:40)
[2020-08-02] MEDS: ALBUTEROL SULFATE 0.083% NEB 2.5 MG/3 ML AMPUL NEB SCH ×4 (02:15→20:26)
[2020-08-02] MEDS: INSULIN REG, HUMAN 100 UNIT/ML 3 ML VIAL (PYX) SUBCUT SCH ×6 (03:10→22:23)
[2020-08-02 05:23] LABS: ANION GAP 14 (5-19); BLOOD UREA NITROGEN 72 mg/dL (7-20); CALCIUM 8.5 mg/dL (8.4-10.2); CARBON DIOXIDE 21 mmol/L (22-30); CHLORIDE 97 mmol/L (98-107); GLUCOSE 208 mg/dL (75-110); POTASSIUM 3.8 mmol/L (3.6-5.0)
[2020-08-02] MEDS: METHYLPREDNISOLONE INJ 125 MG/2 ML SDV IV SCH (08:16)
[2020-08-02] MEDS: TOBRAMYCIN SULFATE NEB 40 MG/ML 30 ML NEB SCH ×2 (08:28→20:25)
[2020-08-02] MEDS: BUDESONIDE NEB 0.25 MG/2 ML AMPUL NEB SCH ×2 (08:28→20:26)
--- NOTE | 2020-08-02 09:01 | PDOC CRITICAL CARE PROG REPORT ---
General Date:: 08/02/20 ICU Day:: 16 Hospital Day:: 23 Resuscitation Status: Full Code Events in the past 12 to 24 Hours:: Extubated but still marginal Review of systems relevant to events:: Respiratory, neurological. Renal. Reason for ICU Addmission:: Extubated but respiratory status marginal with secretion managment - Medications: Medications reviewed and adjusted accordingly: Yes Vasopressors:: None Sedation:: None Physical Exam Vital Signs: Temp Pulse Resp BP Pulse Ox 97.3 F 100 23 H 137/78 H 97 08/02/20 08:00 08/02/20 08:00 08/02/20 08:00 08/02/20 08:00 08/02/20 08:00 Intake & Output 08/01/20 08/02/20 08/03/20 06:59 06:59 06:59 Intake Total 1455 630 Output Total 1030 1240 0 Balance 425 -610 0 Weight 66.9 kg 66.4 kg Weight/Height Weight 66.4 kg Height 5 ft 7 in General appearance: PRESENT: no acute distress, thin Head exam: PRESENT: atraumatic, normocephalic Eye exam: PRESENT: conjunctiva pink, EOMI, PERRLA. ABSENT: scleral icterus Ear exam: PRESENT: normal external ear exam Mouth exam: PRESENT: moist, tongue midline Respiratory exam: PRESENT: rhonchi - Rhonchi on R side, symmetrical, unlabored Cardiovascular exam: PRESENT: RRR, tachycardia. ABSENT: diastolic murmur, rubs, systolic murmur GI/Abdominal exam: PRESENT: normal bowel sounds, soft. ABSENT: distended, guarding, mass, organolmegaly, rebound, tenderness Rectal exam: PRESENT: deferred Gentrourinary exam: PRESENT: indwelling catheter Extremities exam: ABSENT: other - Unchanged Musculoskeletal exam: PRESENT: other - Thin with muscle wasting, senior care. Neurological exam: PRESENT: altered, awake, CN II-XII grossly intact, other - Less responsive than yesterday. Psychiatric exam: PRESENT: flat affect Tubes/Lines: PRESENT: Dialysis catheter Laboratory/Radiographs Laboratory Results: 08/01/20 04:15 08/02/20 04:50 08/02/20 04:50 Sodium 132.3 L Potassium 3.8 Chloride 97 L Carbon Dioxide 21 L Anion Gap 14 BUN 72 H Creatinine 2.10 H Est GFR ( Amer) 39 L Glucose 208 H Calcium 8.5 07/27/20 13:05 Blood Blood Culture - Final NO GROWTH IN 5 DAYS 07/09/20 07/20/20 07/20/20 11:47 05:00 05:00 Creatine Kinase 25 L Troponin I 0.235 0.232 NT-Pro-B Natriuret Pep [id number] H 07/30/20 05:52 Creatine Kinase Troponin I NT-Pro-B Natriuret Pep [id number] H Impressions: Foot X-Ray 07/10/20 00:00 IMPRESSION: SEVERE DIFFUSE DEMINERALIZATION. CHRONIC CHANGES IN THE 5TH TOE. PROGRESSIVE DESTRUCTION OF THE 2ND TOE. MAY BE DUE TO OSTEOMYELITIS. Head CT 07/10/20 16:23 IMPRESSION: 1. No significant interval changes since the prior examinations dated 07/09/2020, 07/03/2020 and 04/12/2020. No acute intracranial abnormality. 2. Chronic mild small vessel ischemic changes. Stable appearance to the low attenuated area in the region of the right hankins radiata. Further evaluation w ith MRI Brain maybe helpful to exclude acute changes. 3. New finding of a fluid collection within the posterior nasopharynx which lies anterior and adjacent to the adenoids and extends into the oropharynx. Interval placement of endotracheal and nasogastric tube since the previous study dated 07/09/2020. This finding may be on an inflammatory basis, possibly due to reflux. Correlation suggested. EVIDENCE OF ACUTE STROKE: NO KUB X-Ray 08/01/20 00:00 IMPRESSION: Tip of the enteric tube in the stomach copyright 2011 [employer]- All Rights Reserved Chest X-Ray 08/01/20 14:33 IMPRESSION: No interval change following extubation. Persistent basilar airspace disease and small effusions left greater than right. NG tube is in satisfactory position. All labs, radiographs, diagnostic studies and EKGs were personally reviewed: Yes In addition, reports of radiographic and diagnostic studies were read: Yes Assessment and Plan - Diagnosis (1) Acute respiratory failure Qualifiers: Respiratory failure complication: hypercapnia Qualified Code(s): J96.02 - Acute respiratory failure with hypercapnia Is this a current diagnosis for this admission?: Yes Plan: Although he is extubated, today he has R sided rhonchi and is less responsive. He needs NT suctioning. He has a good cough but I am not sure if he is awake enough to realize he must expectorate secretions. For this reason he is best s erved in the ICU. (2) ESRD on hemodialysis Is this a current diagnosis for this admission?: Yes Plan: To receive HD per nephrology advice. I do not believe he needs it today. 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 Keep in ICU today. Critical Time Critical Time (minutes): 35 Level of Care: ICU Anticipated discharge: SNF Anticipated DC Timeframe: Other -: 1. The care of a critical patient is a dynamic process. This note is a treasury representative synopsis but static in nature. The timeframe for treatments given in order is not necessarily the actual time these treatments may have been done. 2. This patient requires critical care secondary to ongoing requirements for therapy not offered or safe outside the critical care environment. Transfer to a lower level of care will result in altered life or limb morbidity and mortality. 3. Multidisciplinary rounds completed. 4. ABCDE bundle addressed.
[2020-08-02] MEDS: DOCUSATE SODIUM 100 MG/10 ML UDC NG SCH (10:51)
[2020-08-02] MEDS: COLCHICINE 0.6 MG TABLET NG SCH ×2 (10:52→18:41)
[2020-08-02] MEDS: PANTOPRAZOLE SODIUM 40 MG VIAL IV SCH (10:52)
[2020-08-02] MEDS: AMINO AC/PROTEIN HYDR/WHEY PRO 11 GM/45 ML PKT NG SCH ×2 (10:52→18:41)
[2020-08-02] MEDS: FONDAPARINUX SODIUM INJ 2.5 MG/0.5 ML DISP.SYRIN SUBCUT SCH (10:55)
[2020-08-02] MEDS: PIPERACILLIN SODIUM/TAZOBACTAM 2.25 GM in NORMAL SALINE 50 ML IV SCH ×2 (11:15→18:39)
[2020-08-02] MEDS: ACETAMINOPHEN SOLN 325 MG/10.15 ML UDCUP NG PRN (13:10)
[2020-08-02] MEDS ORDERED: METOCLOPRAMIDE HCL ORAL SOLN 10 MG/10 ML UDCUP NG ONE (14:00)
[2020-08-02 20:29] LABS: ARTERIAL BLOOD BASE EXCESS -9.3 mmol/L; ARTERIAL BLOOD H2CO3 1.51 mmol/L (1.05-1.35); ARTERIAL BLOOD HCO3 18.8 mmol/L (20-24); ARTERIAL BLOOD O2 SATURATION 96.1 % (94-98); ARTERIAL BLOOD PCO2 50.3 mmHg (35-45); ARTERIAL BLOOD TOTAL CO2 20.3 mmol/L (23-27)
[2020-08-02 20:30] LABS: ARTERIAL BLOOD FIO2 2L
[2020-08-02 20:32] LABS: ARTERIAL BLOOD PH 7.19 (7.35-7.45)
[2020-08-02] MEDS: LATANOPROST 0.005% OPH SOLN 2.5 ML OU SCH (22:25)
[2020-08-03] MEDS: PIPERACILLIN SODIUM/TAZOBACTAM 2.25 GM in NORMAL SALINE 50 ML IV SCH ×2 (00:50→06:52)
[2020-08-03] MEDS: METOCLOPRAMIDE HCL ORAL SOLN 10 MG/10 ML UDCUP NG SCH ×2 (00:50→06:46)
[2020-08-03] MEDS: ALBUMIN HUMAN 12.5 GM/50 ML RTUINJ IV SCH ×2 (01:20→01:50)
[2020-08-03] MEDS ORDERED: ATROPINE SULFATE INJ 1 MG/1 ML VIAL ONE ×2 (01:54→10:22)
[2020-08-03] MEDS ORDERED: NOREPINEPHRINE BITARTRATE INJ/PF 4 MG/4 ML SDV IV ONE (01:57)
[2020-08-03] MEDS: INSULIN REG, HUMAN 100 UNIT/ML 3 ML VIAL (PYX) SUBCUT SCH ×2 (02:00→06:42)
[2020-08-03] MEDS ORDERED: ATROPINE SULFATE INJ 1 MG/10 ML DISP.SYRIN IV ONE ×2 (02:05→03:00)
[2020-08-03] MEDS ORDERED: DOPAMINE HCL/DEXTROSE 5%-WATER 800 MG/250 ML RTUINJ IV ONE (02:05)
[2020-08-03 02:07] LABS: ARTERIAL BLOOD BASE EXCESS -9.2 mmol/L; ARTERIAL BLOOD FIO2 21%; ARTERIAL BLOOD H2CO3 1.39 mmol/L (1.05-1.35); ARTERIAL BLOOD HCO3 18.4 mmol/L (20-24); ARTERIAL BLOOD O2 SATURATION 66.8 % (94-98); ARTERIAL BLOOD PCO2 46.3 mmHg (35-45); ARTERIAL BLOOD PH 7.22 (7.35-7.45); ARTERIAL BLOOD PO2 41.4 mmHg (80-100); ARTERIAL BLOOD TOTAL CO2 19.9 mmol/L (23-27)
[2020-08-03] MEDS ORDERED: ETOMIDATE INJ/PF 20 MG/10 ML SDV IV ONE (02:08)
[2020-08-03] MEDS: ALBUTEROL SULFATE 0.083% NEB 2.5 MG/3 ML AMPUL NEB SCH ×2 (02:32→08:44)
--- NOTE | 2020-08-03 02:42 | Operative Report ---
Bedside Procedure - History of Present Illness Indication for Procedure: respiratory failure Date: 07/15/20 Provider: JOMAR ODONNELL - Intubation Orotracheal Time of Intubation: 02:13 Airway evaluation: Normal anatomy Intubation method: Orotracheal Blade type: Luis Daniel Blade size: 4 Equipment used: Glidescope ETT size: 8.0 ETT secured at: Lips - 22 ETT secured at (cm): 22 Post Intubation Xray: Yes Intubation Complications: No complications
--- NOTE | 2020-08-03 02:47 | Progress Note ---
Provider Note Provider Note: 0200 patient became bradycardic and was given atropine 1 mg with only transient releif in bradycardia. The atropine was repeated and the pateint was started on levophed for hypotension. The pateint responded to the second atropine briefly and began to become bradycardic once again. The patient was then started on d opamine and again was becoming lynette cardic and eventually lost his pulse. At 0213 a code blue was called and cpr and acls protocols initated. The patient was intubated and acls meds given and the patient achieved ROSC. Please see the code sheet for a list of meds given. The patient had significant spike in T waves calcium gluconate given and electrolyte panel pending.
[2020-08-03 02:49] LABS: ALKALINE PHOSPHATASE 139 U/L (38-126); ASPARTATE AMINO TRANSFERASE 19 U/L (17-59); BILIRUBIN,DIRECT 1.3 mg/dL (0.0-0.4); BILIRUBIN,TOTAL 1.3 mg/dL (0.2-1.3); BLOOD UREA NITROGEN 81 mg/dL (7-20); CALCIUM 8.4 mg/dL (8.4-10.2); CHLORIDE 96 mmol/L (98-107); GLUCOSE 215 mg/dL (75-110); TOTAL PROTEIN 5.6 g/dL (6.3-8.2)
[2020-08-03 02:54] LABS: CARBON DIOXIDE 20 mmol/L (22-30)
[2020-08-03 03:03] LABS: ANION GAP 22 (5-19)
--- NOTE | 2020-08-03 03:09 | RADIOLOGY REPORT (SQ) ---
EXAM DESCRIPTION: XR CHEST 1 VIEW COMPLETED DATE/TME: 08/03/2020 00:00 CLINICAL HISTORY: 64 years, Male, tube placement COMPARISON: 08/01/2020 chest NUMBER OF VIEWS: 1 TECHNIQUE: Portable chest LIMITATIONS: None. FINDINGS: Interval intubation. Tip of the endotracheal tube is 2.7 cm above the joselito. Other indwelling tubes/lines/catheters are grossly stable with stable postsurgical change. Cardiomegaly. Worsening airspace opacity over the right lung base. Small bilateral effusions, greater on the left. No pneumothorax IMPRESSION: Interval intubation. Worsening airspace opacity over the right lung base. Other findings grossly stable copyright 2011 [employer]- All Rights Reserved
[2020-08-03] MEDS ORDERED: DEXTROSE 5%-WATER 250 ML with NOREPINEPHRINE BITARTRATE 4 MG IV PRN ×2 (03:48)
[2020-08-03] MEDS ORDERED: DOPAMINE HCL/DEXTROSE 5%-WATER 800 MG/250 ML RTUINJ IV PRN (03:48)
--- NOTE | 2020-08-03 03:54 | RADIOLOGY REPORT (SQ) ---
CLINICAL HISTORY: tube placement COMPARISON: 08/03/2020. TECHNIQUE: XR CHEST 1 VIEW 08/03/2020 12:00 AM CDT FINDINGS: Cardiac silhouette is normal in size. There are continued bilateral consolidations in the lower lungs. There are small pleural effusions. There is no pneumothorax. There are no acute osseous findings. Endotracheal tube is stable. NG tube is unchanged. Bilateral central lines are unchanged. IMPRESSION: Essentially no change.
[2020-08-03] MEDS ORDERED: PROPOFOL 1,000 MG/100 ML INFUS..BTL IV PRN (04:02)
[2020-08-03] MEDS ORDERED: PROPOFOL 1,000 MG/100 ML INFUS..BTL IV ONE (04:03)
[2020-08-03] MEDS ORDERED: EPOETIN ALFA-EPBX 10,000 UNIT in SYRINGE, DISPOSABLE, 1 EACH IV PRN (05:00)
[2020-08-03 05:33] LABS: ARTERIAL BLOOD BASE EXCESS -6.2 mmol/L; ARTERIAL BLOOD FIO2 100%; ARTERIAL BLOOD O2 SATURATION 99.3 % (94-98); ARTERIAL BLOOD PCO2 36.6 mmHg (35-45); ARTERIAL BLOOD PH 7.33 (7.35-7.45); ARTERIAL BLOOD PO2 193.6 mmHg (80-100); ARTERIAL BLOOD TOTAL CO2 20.2 mmol/L (23-27)
[2020-08-03] MEDS: BUDESONIDE NEB 0.25 MG/2 ML AMPUL NEB SCH (08:43)
[2020-08-03] MEDS: TOBRAMYCIN SULFATE NEB 40 MG/ML 30 ML NEB SCH (08:44)
--- NOTE | 2020-08-03 09:01 | PDOC CRITICAL CARE PROG REPORT ---
General Date:: 08/03/20 Hospital Day:: 25 Resuscitation Status: Full Code Events in the past 12 to 24 Hours:: Had bradycardic arrest. Not pulmonary as previously expected, intubated for 3rd time. Review of systems relevant to events:: CV. Pulmonary. Neurologic. Reason for ICU Addmission:: Bradycardic arrest. Intubated again. - Medications: Medications reviewed and adjusted accordingly: Yes Vasopressors:: Dopamine Sedation:: None Physical Exam Vital Signs: Temp Pulse Resp BP Pulse Ox 97.5 F 97 18 128/99 H 97 08/03/20 03:58 08/03/20 08:44 08/03/20 08:44 08/03/20 06:09 08/03/20 08:44 Intake & Output 08/02/20 08/03/20 08/04/20 06:59 06:59 06:59 Intake Total 630 615 Output Total 1240 200 Balance -610 415 Weight 66.4 kg 66.7 kg Weight/Height Weight 66.7 kg Height 5 ft 7 in General appearance: PRESENT: no acute distress, thin Head exam: PRESENT: atraumatic, normocephalic Eye exam: PRESENT: conjunctiva pink, EOMI, PERRLA. ABSENT: scleral icterus Ear exam: PRESENT: normal external ear exam Mouth exam: PRESENT: moist, tongue midline Respiratory exam: PRESENT: clear to auscultation jolie, decreased breath sounds. ABSENT: rales, rhonchi, wheezes Cardiovascular exam: PRESENT: RRR, tachycardia - Slightly tachycardic at 97.. ABSENT: diastolic murmur, rubs, systolic murmur GI/Abdominal exam: PRESENT: normal bowel sounds, soft. ABSENT: distended, guarding, mass, organolmegaly, rebound, tenderness Rectal exam: PRESENT: deferred Gentrourinary exam: PRESENT: indwelling catheter Extremities exam: PRESENT: other - Dry skin on feet. Continued PVD in toes. Neurological exam: PRESENT: altered, other - He is arousable but does not provide any orientation or purposeful movements. Skin exam: PRESENT: other - Feet dry and blackened. No change. Tubes/Lines: PRESENT: Endotracheal Tube, Nasogastic Tube Laboratory/Radiographs Laboratory Results: 08/01/20 04:15 08/03/20 02:15 08/02/20 08/03/2020 20:12 01:35 02:15 Carbonic Acid 1.51 H 1.39 H HCO3/H2CO3 Ratio 12:1 13:1 ABG pH 7.19 L* 7.22 L ABG pCO2 50.3 H 46.3 H ABG pO2 101.0 H 41.4 L ABG HCO3 18.8 L 18.4 L ABG O2 Saturation 96.1 66.8 L ABG Base Excess -9.3 -9.2 FiO2 2L 21% Sodium 137.5 Potassium 5.0 D Chloride 96 L Carbon Dioxide 20 L Anion Gap 22 H BUN 81 H Creatinine 2.21 H Est GFR ( Amer) 36 L Glucose 215 H Calcium 8.4 Magnesium 2.1 Total Bilirubin 1.3 AST 19 Alkaline Phosphatase 139 H Total Protein 5.6 L Albumin 3.0 L 08/03/20 04:55 Carbonic Acid 1.10 HCO3/H2CO3 Ratio 17:1 ABG pH 7.33 L ABG pCO2 36.6 ABG pO2 193.6 H ABG HCO3 19.0 L ABG O2 Saturation 99.3 H ABG Base Excess -6.2 FiO2 100% Sodium Potassium Chloride Carbon Dioxide Anion Gap BUN Creatinine Est GFR ( Amer) Glucose Calcium Magnesium Total Bilirubin AST Alkaline Phosphatase Total Protein Albumin 07/27/20 12:55 Blood Blood Culture (PCR) - Final Maral Albicans 07/27/20 12:55 Blood Blood Culture - Final C.albicans/C.dubliniensis 07/09/20 07/20/20 07/20/20 11:47 05:00 05:00 Creatine Kinase 25 L Troponin I 0.235 0.232 NT-Pro-B Natriuret Pep [id number] H 07/30/20 05:52 Creatine Kinase Troponin I NT-Pro-B Natriuret Pep [id number] H Impressions: Foot X-Ray 07/10/20 00:00 IMPRESSION: SEVERE DIFFUSE DEMINERALIZATION. CHRONIC CHANGES IN THE 5TH TOE. PROGRESSIVE DESTRUCTION OF THE 2ND TOE. MAY BE DUE TO OSTEOMYELITIS. Head CT 07/10/20 16:23 IMPRESSION: 1. No significant interval changes since the prior examinations dated 07/09/2020, 07/03/2020 and 04/12/2020. No acute intracranial abnormality. 2. Chronic mild small vessel ischemic changes. Stable appearance to the low attenuated area in the region of the right hankins radiata. Further evaluation with MRI Brain maybe helpful to exclude acute changes. 3. New finding of a fluid collection within the posterior nasopharynx which lies anterior and adjacent to the adenoids and extends into the oropharynx. Interval placement of endotracheal and nasogastric tube since the previous study dated 07/09/2020. This finding may be on an inflammatory basis, possibly due to reflux. Correlation suggested. EVIDENCE OF ACUTE STROKE: NO KUB X-Ray 08/01/20 00:00 IMPRESSION: Tip of the enteric tube in the stomach copyright 2011 [employer]- All Rights Reserved EKG: Now in aflutter. Assessment and Plan - Diagnosis (1) Acute respiratory failure Qualifiers: Respiratory failure complication: hypercapnia Qualified Code(s): J96.02 - Acute respiratory failure with hypercapnia Is this a current diagnosis for this admission?: Yes Plan: He is hans intubated for airway protection. He will likely need a trach at this point which may need to happen next week after he recovers from this episode. (2) ESRD on hemodialysis Is this a current diagnosis for this admission?: Yes Plan: No HD planned today. 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 (4) Peripheral vascular disease Is this a current diagnosis for this admission?: Yes Plan: No change. Plan Summary: Overall prognosis has never been good. In view of last night's arrest he has demonstrated an inability to maintain himself as this bradycardic event seems to be unprovoked. He was extubated but otherwise doing better with no respiratory stress. Critical Time Critical Time (minutes): 40 Level of Care: ICU Anticipated discharge: Hospice Anticipated DC Timeframe: Other -: 1. The care of a critical patient is a dynamic process. This note is a direct marketing representative synopsis but static in nature. The timeframe for treatments given in order is not necessarily the actual time these treatments may have been done. 2. This patient requires critical care secondary to ongoing requirements for therapy not offered or safe outside the critical care environment. Transfer to a lower level of care will result in altered life or limb morbidity and m ortality. 3. Multidisciplinary rounds completed. 4. ABCDE bundle addressed.
--- NOTE | 2020-08-03 09:18 | RADIOLOGY REPORT (SQ) ---
EXAM DESCRIPTION: CHEST SINGLE VIEW IMAGES COMPLETED DATE/TIME: 08/03/2020 6:55 am REASON FOR STUDY: possible aspiration COMPARISON: AP view of the chest from 08/03/2020. EXAM PARAMETERS: NUMBER OF VIEWS: One view. TECHNIQUE: An AP view of the chest was obtained. RADIATION DOSE: NA LIMITATIONS: None. FINDINGS: LUNGS AND PLEURA: Unchanged appearance of the lungs and pleura. MEDIASTINUM AND HILAR STRUCTURES: Stable mediastinal and hilar contours. HEART AND VASCULAR STRUCTURES: Stable cardiac silhouette. BONES: No acute findings. HARDWARE: Status post median sternotomy. The tip of endotracheal tube projects 3.4 cm above the erika na. The tip of the left subclavian vein approach central venous catheter projects within the SVC. T he tip of the right IJ tunneled HD catheter projects at the level of the cavoatrial junction. The ti p of the enteric tube projects past the gastroesophageal junction and outside the field of view of th e radiograph. OTHER: No other finding. IMPRESSION: Tubes and lines as above. Otherwise unchanged radiographic appearance of the chest. TECHNICAL DOCUMENTATION: JOB ID: [id number] 2010 [employer]- All Rights Reserved Reading location - IP/workstation name: [email or web address]
[2020-08-03] MEDS ORDERED: CALCIUM GLUCONATE 1000 MG/10 ML INJ IV ONE (10:26)
[2020-08-03] MEDS ORDERED: EPINEPHRINE INJ 1 MG/10 ML DISP.SYRIN ONE ×2 (10:26→13:00)
[2020-08-03] MEDS ORDERED: SODIUM BICARBONATE 8.4% INJ 50 MEQ/50 ML DISP.SYRIN ONE ×3 (10:26→13:00)
[2020-08-03] MEDS ORDERED: EPINEPHRINE INJ/PF 1 MG/1 ML AMPULE ONE (10:40)
[2020-08-03 11:28] VITALS: BP 64/54
--- NOTE | 2020-08-03 11:31 | Progress Note ---
Provider Note Provider Note: This patient was on both dopamine and levophed yet could not tolerated HD. Dialysis stopped and shortly thereafter pt had another episode of bradycardia, no response from atropine and before he was to receive epinephrine he lost a palpable pulse. CPR started and ACLS protocol followed and he got his BP and pulse back. Family called. By the time they arrived he was again in arrest and family was able to witness CPR. When informed of events and prognosis his and daughter did not want to pursue further CPR efforts, pt is now DNR and is activly passing at this moment. CC time 1 hour.
--- NOTE | 2020-08-03 11:47 | Death Summary ---
Summary Date : 08/03/20 Time of :: 11:34 Autopsy: No Resuscitation Status: Do Not Resuscitate Consulting Provider: Rodríguez He MD - Final Diagnosis (1) Acute respiratory failure Is this a current diagnosis for this admission?: Yes (2) ESRD on hemodialysis Is this a current diagnosis for this admission?: Yes (3) Axonal GBS (Guillain-Ster[place] syndrome) Is this a current diagnosis for this admission?: Yes (4) Peripheral vascular disease Is this a current diagnosis for this admission?: Yes (5) Bradycardia Is this a current diagnosis for this admission?: Yes Hospital Course:: This patient has been in both the hospital and ICU for quite some time. His problems have included ESRD on HD, Guillan-Sterling weakness. Respiratory insufficiency due to secretions, presumed PNA, weakness. He has never fully rallied. He is wheelchair bound. He had a bradycardic arrest last night. Despite dopamine and levophed he had another bradycardic event today with an arrest. ACLS followed. We obtained ROSC but he shortly had another arrest. Patient's family was here by that time and requested no further rescusitative effort. Pt was made DNR and with family by his side at 11:34 AM 08/03/20. He also had a significant amount of hemoptysis with CPR as well as fresh bleeding from his NG.
[2020-08-03] MEDS: COLCHICINE 0.6 MG TABLET NG SCH (12:08)
[2020-08-03] MEDS: METHYLPREDNISOLONE INJ 125 MG/2 ML SDV IV SCH (12:08)
[2020-08-03] MEDS: AMINO AC/PROTEIN HYDR/WHEY PRO 11 GM/45 ML PKT NG SCH (12:08)
[2020-08-03] MEDS: DOCUSATE SODIUM 100 MG/10 ML UDC NG SCH (12:08)
[2020-08-03] MEDS: FONDAPARINUX SODIUM INJ 2.5 MG/0.5 ML DISP.SYRIN SUBCUT SCH (12:08)
[2020-08-03] MEDS: PANTOPRAZOLE SODIUM 40 MG VIAL IV SCH (12:09)
--- NOTE | 2020-08-03 13:11 | PDOC PROGRESS REPORT ---
Subjective Progress Note for:: 08/03/20 Reason For Visit: Patient was seen in the ICU this morning prior to starting dialysis. Discussions were done with the treating nurse/test inspection engineer. He apparently bradied and then nearly coded early this morning and was resuscitated. Remains intubated and sedated. He looked extremely and critically very ill and very moribund which agonal breathing. Vital signs shows that he was quite hypotensive with systolic in the 80s. At this point the patient is already on dopamine at 10 mcg grams per minute. Dialysis could not be initiated given the patient's hemodynamics. Therefore Levophed was initiated along with orders to bolus with half a liter of fluid. Soon after patient's blood pressure creeped up to the 90s systolics. I talked with the dialysis nurse Luz that we would not dialyze the patient currently given the patient's critical and very unstable situation. Therefore she left to start dialysis on a different patient. At this point I called his Nancy on the phone and appraised of the extremely critical nature of her and requested that she reconsider continuing current measures and to possibly make him a DNR. She outrightly refused and wanted everything to be done. At that point I told her that dialysis could only be done if patient is stable given the extremely poor hemodynamics. I was concerned that the patient will be going into a cardiac arrest soon and expressed that to his who still wanted everything done. Approximately 10 to 15 minutes after this initial encounter with patient and talking with is , the patient coded and I was at the bedside while the test inspection engineer was carrying out CPR. I was later informed that the patient did not do very well post code and the was informed and soon after the patient . Physical Exam Vital Signs: Temp Pulse Resp BP Pulse Ox 98.4 F 97 20 64/54 L 73 L 08/03/20 10:00 08/03/20 08:44 08/03/20 11:14 08/03/20 11:14 08/03/20 10:16 Intake & Output 08/02/20 08/03/20 08/04/20 06:59 06:59 06:59 Intake Total 630 615 118 Output Total 1240 200 0 Balance -610 415 118 Weight 66.4 kg 66.7 kg Exam: Intubated and sedated. Looks extremely sick and moribund.Rather agonal kind of breathing. Respiratory exam: PRESENT: clear to auscultation jolie. ABSENT: crackles Cardiovascular exam: PRESENT: +S1, +S2 GI/Abdominal exam: PRESENT: normal bowel sounds, soft. ABSENT: organomegaly, tenderness Extremities exam: PRESENT: +2 edema Results Laboratory Results: 08/01/20 04:15 08/03/20 02:15 08/02/20 08/03/20 08/03/20 20:12 01:35 02:15 Carbonic Acid 1.51 H 1.39 H HCO3/H2CO3 Ratio 12:1 13:1 ABG pH 7.19 L* 7.22 L ABG pCO2 50.3 H 46.3 H ABG pO2 101.0 H 41.4 L ABG HCO3 18.8 L 18.4 L ABG O2 Saturation 96.1 66.8 L ABG Base Excess -9.3 -9.2 FiO2 2L 21% Sodium 137.5 Potassium 5.0 D Chloride 96 L Carbon Dioxide 20 L Anion Gap 22 H BUN 81 H Creatinine 2.21 H Est GFR ( Amer) 36 L Glucose 215 H Calcium 8.4 Magnesium 2.1 Total Bilirubin 1.3 AST 19 Alkaline Phosphatase 139 H Total Protein 5.6 L Albumin 3.0 L 08/03/20 04:55 Carbonic Acid 1.10 HCO3/H2CO3 Ratio 17:1 ABG pH 7.33 L ABG pCO2 36.6 ABG pO2 193.6 H ABG HCO3 19.0 L ABG O2 Saturation 99.3 H ABG Base Excess -6.2 FiO2 100% Sodium Potassium Chloride Carbon Dioxide Anion Gap BUN Creatinine Est GFR ( Amer) Glucose Calcium Magnesium Total Bilirubin AST Alkaline Phosphatase Total Protein Albumin 07/27/20 12:55 Blood Blood Culture (PCR) - Final Maral Albicans 07/27/20 12:55 Blood Blood Culture - Final C.albicans/C.dubliniensis 07/09/20 07/20/20 07/20/20 11:47 05:00 05:00 Creatine Kinase 25 L Troponin I 0.235 0.232 NT-Pro-B Natriuret Pep [id number] H 07/30/20 05:52 Creatine Kinase Troponin I NT-Pro-B Natriuret Pep [id number] H Impressions: Foot X-Ray 07/10/20 00:00 IMPRESSION: SEVERE DIFFUSE DEMINERALIZATION. CHRONIC CHANGES IN THE 5TH TOE. PROGRESSIVE DESTRUCTION OF THE 2ND TOE. MAY BE DUE TO OSTEOMYELITIS. Head CT 07/10/20 16:23 IMPRESSION: 1. No significant interval changes since the prior examinations dated 07/09/2020, 07/03/2020 and 04/12/2020. No acute intracranial abnormality. 2. Chronic mild small vessel ischemic changes. Stable appearance to the low attenuated area in the region of the right hankins radiata. Further evaluation with MRI Brain maybe helpful to exclude acute changes. 3. New finding of a fluid collection within the posterior nasopharynx which lies anterior and adjacent to the adenoids and extends into the oropharynx. Interval placement of endotracheal and nasogastric tube since the previous study dated 07/09/2020. This finding may be on an inflammatory basis, possibly due to reflux. Correlation suggested. EVIDENCE OF ACUTE STROKE: NO KUB X-Ray 08/01/20 00:00 IMPRESSION: Tip of the enteric tube in the stomach copyright 2011 [employer]- All Rights Reserved Chest X-Ray 08/03/20 00:50 IMPRESSION: Tubes and lines as above. Otherwise unchanged radiographic appearance of the chest. Assessment & Plan - Diagnosis (1) ESRD on hemodialysis Is this a current diagnosis for this admission?: Yes Plan: Patient extremely critical and in state of shock. Dialysis could not be carried out in this given condition. Talked with who wanted everything done. Discussed with treating nurse as well as test inspection engineer. However soon after patient arrested and CPR was initiated but was not successful and patient . 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
== END 2020-08-03 14:30 | DRG 698 ==
LOC: ER 11:13 → EH 16:54 → 3W 19:24 → ICU 07-10 15:36 → 3W 07-16 13:32 → ICU 07-17 11:55
PROVIDERS: ADMIT Anesthesiology; ATTEND Anesthesiology
PROC: 0BH17EZ Insertion of Endotracheal Airway into Trachea, Via Natural or Artificial Opening (ICD-10-PCS; principal; 2020-07-10)
PROC: 5A1955Z Respiratory Ventilation, Greater than 96 Consecutive Hours (ICD-10-PCS; 2020-07-10)
PROC: 0BH17EZ Insertion of Endotracheal Airway into Trachea, Via Natural or Artificial Opening (ICD-10-PCS; 2020-07-17)
PROC: 5A1955Z Respiratory Ventilation, Greater than 96 Consecutive Hours (ICD-10-PCS; 2020-07-17)
PROC: 5A1D70Z Performance of Urinary Filtration, Intermittent, Less than 6 Hours Per Day (ICD-10-PCS; 2020-07-17)
DX: E11.22 Type 2 diabetes mellitus with diabetic chronic kidney disease (principal); J96.02 Acute respiratory failure with hypercapnia; G93.41 Metabolic encephalopathy; J15.5 Pneumonia due to Escherichia coli; T86.11 Kidney transplant rejection; Z16.12 Extended spectrum beta lactamase (ESBL) resistance; I50.32 Chronic diastolic (congestive) heart failure; E46 Unspecified protein-calorie malnutrition; M86.9 Osteomyelitis, unspecified; G82.20 Paraplegia, unspecified; Z68.1 Body mass index [BMI] 19.9 or less, adult; E87.1 Hypo-osmolality and hyponatremia; N18.6 End stage renal disease; I46.9 Cardiac arrest, cause unspecified; D69.6 Thrombocytopenia, unspecified; I44.1 Atrioventricular block, second degree; B96.20 Unspecified Escherichia coli [E. coli] as the cause of diseases classified elsewhere; I25.10 Atherosclerotic heart disease of native coronary artery without angina pectoris; D63.1 Anemia in chronic kidney disease; E78.00 Pure hypercholesterolemia, unspecified; E87.6 Hypokalemia; K21.9 Gastro-esophageal reflux disease without esophagitis; I95.9 Hypotension, unspecified; R25.1 Tremor, unspecified; R29.810 Facial weakness; I25.5 Ischemic cardiomyopathy; G65.0 Sequelae of Guillain-Barre syndrome; I73.9 Peripheral vascular disease, unspecified; F41.8 Other specified anxiety disorders; I25.2 Old myocardial infarction; Z99.2 Dependence on renal dialysis; Z95.5 Presence of coronary angioplasty implant and graft; Z99.3 Dependence on wheelchair; Z20.828 Contact with and (suspected) exposure to other viral communicable diseases; Z79.51 Long term (current) use of inhaled steroids; Z79.899 Other long term (current) drug therapy; Z86.73 Personal history of transient ischemic attack (TIA), and cerebral infarction without residual deficits
CPT/HCPCS: 31500; 31622; 36415; 36600; 70450; 71045; 71046; 74018; 80048; 80053; 80069; 80076; 80307; 82140; 82330; 82533; 82550; 82803; 82962; 83690; 83735; 83880; 84100; 84132; 84145; 84439; 84443; 84478; 84484; 85025; 85027; 85379; 85384; 85610; 85730; 86022; 87040; 87070; 87077; 87150; 87186; 87205; 87324; 87449; 87493; 87635; 92950; 93005; 93010; 94002; 94003; 94640; 94660; 95819; 96360; 99285; 99291; 99292; J0610; C9113; C9803; J0171; J0461; J0692; J0696; J1170; J1265; J1642; J1644; J1652; J1720; J1815; J1953; J2060; J2250; J2405; J2543; J2704; J2930; J2997; J3010; J3260; J3370; J3475; J3480; J3490; J7030; J7040; J7050; J7060; J7613; P9047; Q5105; S0028; S0119